=== PATIENT | female | born 1985 | race American Indian/Alaskan Native ===

== ENCOUNTER 2022-11-18 07:25 | Emergency (ER) | payer BC, OTHER, SELFPAY ==
[2022-11-18 07:33] VITALS: BP 119/62; PULSE 83; RESP 26; TEMP 36.5; O2SAT 93; BMI 35.4
[2022-11-18 07:35] VITALS: O2SAT 95
--- NOTE | 2022-11-18 07:40 | XR_ITS ---
The [address] [address] Patient Name: MORRO GUADARRAMA MRN: [id number] date: 1985 Sex: F Assigned Patient Location: ER Current Patient Location: ED.MAIN Accession/Order Number: [id number] Exam Date: 11/18/2022 08:10 Report Date: 11/18/2022 08:46 At the request of: PHYLLIS PATTON Procedure: XR chest 1V EXAMINATION: XR chest 1V, 11/18/2022 8:10 AM EDT HISTORY: SOB COMPARISON: None. TECHNIQUE: AP portable view of the chest performed. FINDINGS: Medical devices: None. Cardiomediastinal silhouette is within normal limits. The lungs are clear. No large pleural effusion, or pneumothorax. XR/XR chest 1V IMPRESSION: 1. No acute cardiopulmonary abnormality. Electronically authenticated by: AURA GRIFFIN Date: 11/18/2022 08:46
--- NOTE | 2022-11-18 07:42 | ED_ITS ---
HPI - SOB/Dyspnea General Chief Complaint: Shortness of Breath/Dyspnea Stated Complaint: SHORTNESS OF BREATH Time Seen by Provider: 11/18/22 07:36 Mode of arrival: walk-in History of Present Illness HPI Narrative: 37-year-old female who is a history of asthma presents for difficulty breathing. Her symptoms began yesterday mildly and was a bit worse today. She has not had a fever or productive cough and took a home Covid test that was negative. She took two albuterol treatments at home and came here. She states that this is a typical attack for her and usually she doesn't need to be admitted to the hospital. Symptoms are continuous. Related Data Home Medications Medication Instructions Recorded Confirmed albuterol sulfate 2.5 mg/3 mL mg 11/18/22 (0.083 %) solution for nebulization eszopiclone 3 mg tablet mg 11/18/22 fluticasone 250 mcg-salmeterol 50 inhalation 11/18/22 mcg/dose blistr powdr for inhalation (Advair Diskus) ipratropium bromide 0.02 % 11/18/22 solution for inhalation lamotrigine 150 mg tablet mg 11/18/22 lurasidone 40 mg tablet (Latuda) mg 11/18/22 sertraline 100 mg tablet mg 11/18/22 Previous Rx's Medication Instructions Recorded azithromycin 250 mg tablet See Rx Instructions PO .COMPLEX #6 11/18/22 (Zithromax Z-Lawrence) tabs benzonatate 100 mg capsule 100 mg PO TID PRN cough #20 caps 11/18/22 prednisone 10 mg tablet See Rx Instructions .Route 11/18/22 .COMPLEX #30 tabs Allergies Allergy/AdvReac Type Severity Reaction Status Date / Time No Known Drug Allergies Allergy Verified 11/18/22 07:40 Review of Systems ROS Narrative A ten point review of systems is negative except as noted above. Exam Narrative Exam Narrative: Nurses note and vital signs reviewed and patient is not hypoxic. General: The patient appears neck with pursed lipped breathing. she is able to speak in short sentences Skin: Warm, dry, no pallor noted. There is no rash noted. no cyanosis. Head: Normocephalic, atraumatic Eye: Normal conjunctiva, no drainage Ears, Nose, Mouth, and Throat: oral mucosa is moist. Nares patent. Cardiovascular: Regular Rate and Rhythm, not tachycardic Respiratory: bilateral rhonchi present Back: non-tender GI: often nontender Musculoskeletal: The patient has no evidence of calf tenderness, no pitting edema, symmetrical pulses noted bilaterally Neurological: A&O, normal speech Psychiatric: Cooperative Constitutional Vital Signs, click to edit/add: Last Vital Signs Temp 97.7 F 11/18/22 07:33 Pulse 92 H 11/18/22 07:53 Resp 18 11/18/22 09:25 BP 119/62 11/18/22 07:33 Pulse Ox 93 L 11/18/22 08:24 O2 Del Method Room Air 11/18/22 08:24 O2 Flow Rate 2 11/18/22 07:53 Course Vital Signs Vital signs: Vital Signs Temperature 97.7 F 11/18/22 07:33 Pulse Rate 83 11/18/22 07:33 Respiratory Rate 26 H 11/18/22 07:33 Blood Pressure 119/62 11/18/22 07:33 Pulse Oximetry 93 L 11/18/22 07:33 Oxygen Delivery Method Room Air 11/18/22 07:33 Temperature 97.7 F 11/18/22 07:33 Pulse Rate 92 H 11/18/22 07:53 Respiratory Rate 18 11/18/22 09:25 Blood Pressure 119/62 11/18/22 07:33 Pulse Oximetry 93 L 11/18/22 08:24 Oxygen Delivery Method Room Air 11/18/22 08:24 Oxygen Delivery Flow Rate 2 11/18/22 07:53 MDM - SOB/Dyspnea MDM Narrative Medical decision making narrative: the patient was given aerosol treatment and IV Solu-Medrol and feels much improved and is able to be discharged home. Covid test is negative as is her chest x-ray. Treatment diagnosis and follow-up were discussed with the patient. Differential Diagnosis Differential diagnosis: Likely community acquired pneumonia, asthma with exacerbation and other (Covid) Lab Data Attestation: I reviewed the patient's lab results. Labs: Lab Results 11/18/22 11/18/22 Range/Units 07:54 08:40 WBC 7.5 (4.0-11.0) 10^3/uL RBC 4.74 (4.20-5.40) 10^6/uL Hgb 12.6 (12.0-16.0) g/dL Hct 40.0 (36.0-48.0) % MCV 84.4 (81.0-99.0) fL MCH 26.6 L (26.7-34.0) pg MCHC 31.5 (29.9-35.2) g/dL RDW 16.2 H (11.0-15.0) % Plt Count 276 (150-450) 10^3/uL MPV 9.5 (9.5-13.5) fL Neut % (Auto) 70.7 (43.0-75.0) % Lymph % (Auto) 17.0 L (20.5-60.0) % [place] % (Auto) 4.7 (1.7-12.0) % Eos % (Auto) 6.3 (0.9-7.0) % Baso % (Auto) 1.2 (0.2-2.0) % Neut # (Auto) 5.3 (1.4-6.5) 10^3/uL Lymph # (Auto) 1.3 (1.2-3.8) 10^3/uL [place] # (Auto) 0.4 (0.3-0.8) 10^3/uL Eos # (Auto) 0.5 (0.0-0.7) 10^3/uL Baso # (Auto) 0.1 (0.0-0.1) 10^3/uL Abs Immat Gran (auto) 0.01 (0.00-0.03) 10^3/uL Imm/Tot Granulo (auto) 0.1 (0.0-0.5) % Sodium 137 (136-145) mmol/L Potassium 4.2 (3.5-5.1) mmol/L Chloride 101 (98-107) mmol/L Carbon Dioxide 26.7 (21.0-32.0) mmol/L Anion Gap 13.5 BUN 10.0 (7.0-18.0) mg/dL Creatinine 1.07 H (0.55-1.02) mg/dL Est GFR ( Amer) >60 (>=60) Est GFR (Non-Af Amer) 57 L (>=60) BUN/Creatinine Ratio 9.3 Glucose 120 H (74-106) mg/dL Calcium 9.2 (8.5-10.1) mg/dL SARS-CoV-2 (PCR) Negative (NEGATIVE) Imaging Data Chest x-ray: Radiologist's impression: Procedure: XR chest 1V EXAMINATION: XR chest 1V, 11/18/2022 8:10 AM EDT HISTORY: SOB COMPARISON: None. TECHNIQUE: AP portable view of the chest performed. FINDINGS: Medical devices: None. Cardiomediastinal silhouette is within normal limits. The lungs are clear. No large pleural effusion, or pneumothorax. IMPRESSION: 1. No acute cardiopulmonary abnormality. Electronically authenticated by: AURA GRIFFIN Date: 11/18/2022 08:46 Discharge Plan Discharge Chief Complaint: Shortness of Breath/Dyspnea Clinical Impression: Asthma with acute exacerbation Patient Disposition: Home, Self-Care Time of Disposition Decision: 09:45 Condition: Good Mode of Transportation: Private Vehicle Prescriptions / Home Meds: New benzonatate 100 mg capsule 100 mg PO TID PRN (Reason: cough) Qty: 20 0RF prednisone 10 mg tablet See Rx Instructions .ROUTE .COMPLEX Qty: 30 0RF Rx Instructions: 4 by mouth daily for three days then 3 by mouth daily for three days then 2 by mouth daily for three days then 1 by mouth daily for three days azithromycin [Zithromax Z-Lawrence] 250 mg tablet See Rx Instructions .ROUTE .COMPLEX Qty: 6 0RF Rx Instructions: For 250 mg dose pack: take 500 mg today (day 1), then 250 mg for 4 days (days 2-5) No Action lamotrigine 150 mg tablet fluticasone propion-salmeterol [Advair Diskus] 250-50 mcg/dose blister with device INHALATION albuterol sulfate 2.5 mg /3 mL (0.083 %) solution for nebulization sertraline 100 mg tablet ipratropium bromide 0.02 % solution eszopiclone 3 mg tablet lurasidone [Latuda] 40 mg tablet Instructions: Asthma (ED) Stand Alone Forms: Portal Instructions Referrals: Physician,Non-Staff, MD [Primary Care Provider] - 1 week
[2022-11-18] MEDS: ALBUTEROL SULFATE 2.5 MG/3 ML VIAL NEB IH (07:50)
[2022-11-18 07:53] VITALS: PULSE 92; RESP 16; O2SAT 95
[2022-11-18 08:02] LABS: Basophils Absolute Auto 0.1 10^3/uL (0.0-0.1); Basophils Percent Auto 1.2 % (0.2-2.0); Eosinophils Absolute Auto 0.5 10^3/uL (0.0-0.7); Eosinophils Percent Auto 6.3 % (0.9-7.0); Hemoglobin 12.6 g/dL (12.0-16.0); Immature Granulocytes Abs Auto 0.01 10^3/uL (0.00-0.03); Immature Granulocytes Pct Auto 0.1 % (0.0-0.5); Lymphocytes Absolute Auto 1.3 10^3/uL (1.2-3.8); Mean Corpuscular HGB Conc 31.5 g/dL (29.9-35.2); Mean Corpuscular Hemoglobin 26.6 pg (26.7-34.0); Mean Corpuscular Volume 84.4 fL (81.0-99.0); Mean Platelet Volume 9.5 fL (9.5-13.5); Monocytes Absolute Auto 0.4 10^3/uL (0.3-0.8); Monocytes Percent Auto 4.7 % (1.7-12.0); Neutrophils Absolute Auto 5.3 10^3/uL (1.4-6.5); Neutrophils Percent Auto 70.7 % (43.0-75.0); Platelet Count 276 10^3/uL (150-450); Red Blood Count 4.74 10^6/uL (4.20-5.40); Red Cell Distribution Width 16.2 % (11.0-15.0); White Blood Count 7.5 10^3/uL (4.0-11.0)
[2022-11-18] MEDS: METHYLPREDNISOLONE SOD SUCC PF 125 MG/2 ML VIAL IVP (08:07)
[2022-11-18 08:23] LABS: Anion Gap 13.5; BUN Creatinine Ratio 9.3; Calcium 9.2 mg/dL (8.5-10.1); Carbon Dioxide 26.7 mmol/L (21.0-32.0); Chloride 101 mmol/L (98-107); Estimated GFR (African America >60 (>=60); Estimated GFR (Non-African Ame 57 (>=60); Glucose 120 mg/dL (74-106); Potassium 4.2 mmol/L (3.5-5.1); Sodium 137 mmol/L (136-145)
[2022-11-18 08:24] VITALS: RESP 24; O2SAT 93
[2022-11-18 09:25] VITALS: RESP 18
[2022-11-18 09:44] LABS: SARS-CoV-2 Ag NEGATIVE (NEGATIVE)
[2022-11-18 09:45] VITALS: O2SAT 97
[2022-11-19 15:52] LABS: SARS-CoV-2 NAA INVALID (NOT DETECTE)
== END 2022-11-18 09:54 | disposition home or self-care (01) ==
PROVIDERS: Emergency Provider Emergency Medicine
DX: J45.901 Unspecified asthma with (acute) exacerbation (principal); Z79.899 Other long term (current) drug therapy; Z20.822 Contact with and (suspected) exposure to COVID-19
CPT/HCPCS: 36415; 71045; 80048; 85025; 87635; 87811; 94640; 96374; 99285; J2930; U0003

== ENCOUNTER 2023-01-05 20:42 | Emergency (ER) | payer BC, OTHER, SELFPAY ==
[2023-01-05] VITALS (20 sets, daily range): BP systolic 108–147; BP diastolic 80–102; PULSE 105–120; RESP 16–31; TEMP 36.6; O2SAT 91–97; BMI 39.0
--- NOTE | 2023-01-05 20:53 | XR_ITS ---
The [address] [address] Patient Name: MORRO GUADARRAMA MRN: [id number] date: 1985 Sex: F Assigned Patient Location: ED.MAIN Current Patient Location: ER Accession/Order Number: [id number] Exam Date: 01/05/2023 21:16 Report Date: 01/05/2023 21:28 At the request of: LIVIER YOUSSEF Procedure: XR chest 1V EXAM: XR chest 1V REASON FOR EXAM: Female, 37 years, shortness of breath. TECHNIQUE: A single AP view of the chest is performed. COMPARISON: 11/18/2022. FINDINGS: Cardiac monitoring leads overlie the chest. The lungs are expanded and clear. Normal pleura. Normal size heart. Normal mediastinum and meche. Normal visualized pulmonary arteries. Normal visualized aortic arch and descending thoracic aorta. Normal visualized thoracic spine. Normal visualized ribs, clavicles, and shoulders. There is no demonstrated abnormality of the visualized soft tissue structures of the upper abdomen. XR/XR chest 1V IMPRESSION: Normal examination of the chest. Electronically authenticated by: JENIFFER QUINTERO Date: 01/05/2023 21:28
--- NOTE | 2023-01-05 20:53 | ECG_ITS ---
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
--- NOTE | 2023-01-05 20:54 | ED_ITS ---
Documented by User: ABDIRASHID Aguilar 01/05/23 21:17 HPI - SOB/Dyspnea General Chief Complaint: Shortness of Breath/Dyspnea Stated Complaint: SOB Time Seen by Provider: 01/05/23 20:45 Source: patient Mode of arrival: walk-in Limitations: no limitations History of Present Illness HPI Narrative: patient is a 29-year-old female to history of asthma who presents to the emergency department for the evaluation of worsening dyspnea this evening. She states for the last 2-3 days she has had cough and congestion. She states today she got significantly more short of breath. She has had no objective fevers, minimal sputum production. No vomiting or diarrhea. She is not concerned for . She used her nebulizer treatments prior to arrival without improvement. She has had one DuoNeb and two albuterol treatments without improvement. She is hypoxic on arrival to the Emergency Room. Oxygen placed by nasal cannula by nursing staff. Related Data Home Medications Medication Instructions Recorded Confirmed albuterol sulfate 2.5 mg/3 mL mg 11/18/22 (0.083 %) solution for nebulization eszopiclone 3 mg tablet mg 11/18/22 fluticasone 250 mcg-salmeterol 50 inhalation 11/18/22 mcg/dose blistr powdr for inhalation (Advair Diskus) ipratropium bromide 0.02 % 11/18/22 solution for inhalation lamotrigine 150 mg tablet mg 11/18/22 lurasidone 40 mg tablet (Latuda) mg 11/18/22 sertraline 100 mg tablet mg 11/18/22 Previous Rx's Medication Instructions Recorded azithromycin 250 mg tablet See Rx Instructions PO .COMPLEX #6 11/18/22 (Zithromax Z-Lawrence) tabs benzonatate 100 mg capsule 100 mg PO TID PRN cough #20 caps 11/18/22 prednisone 10 mg tablet See Rx Instructions .Route 11/18/22 .COMPLEX #30 tabs doxycycline hyclate 100 mg capsule 100 mg PO BID 10 days #20 caps 01/05/23 lorazepam 1 mg tablet (Ativan) 1 mg PO Q8H PRN anxiety 4 days #12 01/05/23 tabs prednisone 10 mg tablet See Rx Instructions .Route 01/05/23 .COMPLEX #30 tabs Allergies Allergy/AdvReac Type Severity Reaction Status Date / Time No Known Drug Allergies Allergy Verified 01/05/23 20:50 Review of Systems ROS Constitutional Denies: fever or chills Ears, nose, mouth, and throat Reports: nasal congestion; Denies: throat pain Cardiovascular Denies: chest pain Respiratory Reports: shortness of breath, cough and wheezing Gastrointestinal Denies: nausea or vomiting Musculoskeletal Denies: back pain Integumentary/Breast Denies: rash Exam Narrative Exam Narrative: Gen.: Awake, alert, mild respiratory distress Head: Normocephalic, atraumatic ENT: Moist mucous membranes Respiratory: tachypnea, decreased lung sounds with expiratory wheezing globally; oxygen by nasal cannula Cardio: tachycardia Extremities: Moves extremities equally, no pedal edema Psych: Normal mood and affect Neuro: No focal neuro deficit Skin: Warm, dry, intact Constitutional Vital Signs, click to edit/add: Last Vital Signs Temp 98 F 01/05/23 20:46 Pulse 113 H 01/05/23 22:20 Resp 17 01/05/23 22:20 BP 147/102 H 01/05/23 20:46 Pulse Ox 97 01/05/23 22:20 O2 Del Method Nasal Cannula 01/05/23 21:57 O2 Flow Rate 2 01/05/23 21:57 Course Vital Signs Vital signs: Vital Signs Temperature 98 F 01/05/23 20:46 Pulse Rate 120 H 01/05/23 20:46 Respiratory Rate 26 H 01/05/23 20:46 Blood Pressure 147/102 H 01/05/23 20:46 Pulse Oximetry 96 01/05/23 20:46 Oxygen Delivery Method Nasal Cannula 01/05/23 20:46 Oxygen Delivery Flow Rate 2 01/05/23 20:46 Temperature 98 F 01/05/23 20:46 Pulse Rate 113 H 01/05/23 22:20 Respiratory Rate 17 01/05/23 22:20 Blood Pressure 147/102 H 01/05/23 20:46 Pulse Oximetry 97 01/05/23 22:20 Oxygen Delivery Method Nasal Cannula 01/05/23 21:57 Oxygen Delivery Flow Rate 2 01/05/23 21:57 MDM - SOB/Dyspnea MDM Narrative Medical decision making narrative: 2114: oxygen was placed by nasal cannula at 2 L with improvement of oxygen saturation. patient was ordered to have IV fluids, inhaled Pulmicort as she had multiple breathing treatments prior to arrival. IV Solu-Medrol and IV magnesium given. Lab studies, chest x-ray also ordered. Case is turned over to attending physician at this time pending results and disposition. Medical Records Attestation: I reviewed the patient's medical records. Lab Data Attestation: I reviewed the patient's lab results. Labs: Lab Results 01/05/23 Range/Units 21:05 WBC 15.1 H (4.0-11.0) 10^3/uL RBC 4.46 (4.20-5.40) 10^6/uL Hgb 12.0 (12.0-16.0) g/dL Hct 38.0 (36.0-48.0) % MCV 85.2 (81.0-99.0) fL MCH 26.9 (26.7-34.0) pg MCHC 31.6 (29.9-35.2) g/dL RDW 16.4 H (11.0-15.0) % Plt Count 263 (150-450) 10^3/uL MPV 9.5 (9.5-13.5) fL Neut % (Auto) 93.4 H (43.0-75.0) % Lymph % (Auto) 2.9 L (20.5-60.0) % [place] % (Auto) 2.6 (1.7-12.0) % Eos % (Auto) 0.1 L (0.9-7.0) % Baso % (Auto) 0.5 (0.2-2.0) % Neut # (Auto) 14.1 H (1.4-6.5) 10^3/uL Lymph # (Auto) 0.4 L (1.2-3.8) 10^3/uL [place] # (Auto) 0.4 (0.3-0.8) 10^3/uL Eos # (Auto) 0.0 (0.0-0.7) 10^3/uL Baso # (Auto) 0.1 (0.0-0.1) 10^3/uL Abs Immat Gran (auto) 0.07 H (0.00-0.03) 10^3/uL Imm/Tot Granulo (auto) 0.5 (0.0-0.5) % APTT 31.6 (22.3-36.2) sec VBG pH 7.429 (7.330-7.430) VBG pCO2 26.9 L (40.0-52.0) mmHg Sodium 139 (136-145) mmol/L Potassium 4.2 (3.5-5.1) mmol/L Chloride 103 (98-107) mmol/L Carbon Dioxide 22.0 (21.0-32.0) mmol/L Anion Gap 18.2 BUN 10.0 (7.0-18.0) mg/dL Creatinine 1.35 H (0.55-1.02) mg/dL Est GFR ( Amer) 53 L (>=60) Est GFR (Non-Af Amer) 44 L (>=60) BUN/Creatinine Ratio 7.4 Glucose 272 H (74-106) mg/dL Calcium 8.9 (8.5-10.1) mg/dL Total Bilirubin 0.2 (0.2-1.0) mg/dL AST 9 L (15-37) U/L ALT 9 L (14-59) U/L Alkaline Phosphatase 107 (46-116) U/L Troponin I High Sens 6.1 (4.0-51.3) pg/mL NT-Pro-B Natriuret Pep 509.0 H (<=450.0) pg/mL Total Protein 7.9 (6.4-8.2) g/dL Albumin 3.8 (3.4-5.0) g/dL Globulin 4.1 g/dL Albumin/Globulin Ratio 0.9 Discharge Plan Discharge Chief Complaint: Shortness of Breath/Dyspnea Clinical Impression: Asthma exacerbation, Dyspnea, Hypoxia Patient Disposition: Home, Self-Care Time of Disposition Decision: 22:57 Condition: Good Mode of Transportation: Private Vehicle Prescriptions / Home Meds: New prednisone 10 mg tablet See Rx Instructions .ROUTE .COMPLEX Qty: 30 0RF Rx Instructions: 4 by mouth daily for three days then 3 by mouth daily for three days then 2 by mouth daily for three days then 1 by mouth daily for three days doxycycline hyclate 100 mg capsule 100 mg PO BID 10 Days Qty: 20 0RF lorazepam [Ativan] 1 mg tablet 1 mg PO Q8H PRN (Reason: anxiety) 4 Days Qty: 12 0RF No Action lamotrigine 150 mg tablet fluticasone propion-salmeterol [Advair Diskus] 250-50 mcg/dose blister with device INHALATION albuterol sulfate 2.5 mg /3 mL (0.083 %) solution for nebulization sertraline 100 mg tablet ipratropium bromide 0.02 % solution eszopiclone 3 mg tablet lurasidone [Latuda] 40 mg tablet benzonatate 100 mg capsule 100 mg PO TID PRN (Reason: cough) Qty: 20 0RF prednisone 10 mg tablet See Rx Instructions .ROUTE .COMPLEX Qty: 30 0RF Rx Instructions: 4 by mouth daily for three days then 3 by mouth daily for three days then 2 by mouth daily for three days then 1 by mouth daily for three days azithromycin [Zithromax Z-Lawrence] 250 mg tablet See Rx Instructions .ROUTE .COMPLEX Qty: 6 0RF Rx Instructions: For 250 mg dose pack: take 500 mg today (day 1), then 250 mg for 4 days (days 2-5) Instructions: Asthma (ED) Stand Alone Forms: Portal Instructions Referrals: Physician,Non-Staff, MD [Primary Care Provider] - 1 week Documented by User: Hola Rogers MD 01/05/23 23:03 HPI - SOB/Dyspnea General Chief Complaint: Shortness of Breath/Dyspnea Stated Complaint: SOB Time Seen by Provider: 01/05/23 20:45 Related Data Home Medications Medication Instructions Recorded Confirmed albuterol sulfate 2.5 mg/3 mL mg 11/18/22 (0.083 %) solution for nebulization eszopiclone 3 mg tablet mg 11/18/22 fluticasone 250 mcg-salmeterol 50 inhalation 11/18/22 mcg/dose blistr powdr for inhalation (Advair Diskus) ipratropium bromide 0.02 % 11/18/22 solution for inhalation lamotrigine 150 mg tablet mg 11/18/22 lurasidone 40 mg tablet (Latuda) mg 11/18/22 sertraline 100 mg tablet mg 11/18/22 Previous Rx's Medication Instructions Recorded azithromycin 250 mg tablet See Rx Instructions PO .COMPLEX #6 11/18/22 (Zithromax Z-Lawrence) tabs benzonatate 100 mg capsule 100 mg PO TID PRN cough #20 caps 11/18/22 prednisone 10 mg tablet See Rx Instructions .Route 11/18/22 .COMPLEX #30 tabs doxycycline hyclate 100 mg capsule 100 mg PO BID 10 days #20 caps 01/05/23 lorazepam 1 mg tablet (Ativan) 1 mg PO Q8H PRN anxiety 4 days #12 01/05/23 tabs prednisone 10 mg tablet See Rx Instructions .Route 01/05/23 .COMPLEX #30 tabs Allergies Allergy/AdvReac Type Severity Reaction Status Date / Time No Known Drug Allergies Allergy Verified 01/05/23 20:50 Exam Constitutional Vital Signs, click to edit/add: Last Vital Signs Temp 98 F 01/05/23 20:46 Pulse 113 H 01/05/23 22:20 Resp 17 01/05/23 22:20 BP 147/102 H 01/05/23 20:46 Pulse Ox 97 01/05/23 22:20 O2 Del Method Nasal Cannula 01/05/23 21:57 O2 Flow Rate 2 01/05/23 21:57 Course Vital Signs Vital signs: Vital Signs Temperature 98 F 01/05/23 20:46 Pulse Rate 120 H 01/05/23 20:46 Respiratory Rate 26 H 01/05/23 20:46 Blood Pressure 147/102 H 01/05/23 20:46 Pulse Oximetry 96 01/05/23 20:46 Oxygen Delivery Method Nasal Cannula 01/05/23 20:46 Oxygen Delivery Flow Rate 2 01/05/23 20:46 Temperature 98 F 01/05/23 20:46 Pulse Rate 113 H 01/05/23 22:20 Respiratory Rate 17 01/05/23 22:20 Blood Pressure 147/102 H 01/05/23 20:46 Pulse Oximetry 97 01/05/23 22:20 Oxygen Delivery Method Nasal Cannula 01/05/23 21:57 Oxygen Delivery Flow Rate 2 01/05/23 21:57 MDM - SOB/Dyspnea MDM Narrative Medical decision making narrative: 2114: oxygen was placed by nasal cannula at 2 L with improvement of oxygen saturation. patient was ordered to have IV fluids, inhaled Pulmicort as she had multiple breathing treatments prior to arrival. IV Solu-Medrol and IV magnesium given. Lab studies, chest x-ray also ordered. Case is turned over to attending physician at this time pending results and disposition. 11:00 PM. The patient is feeling much improved. She was offered admission the hospital but she doesn't feel she needs to be admitted and states that she can treat herself at home. She was given IV Solu-Medrol here as well as aerosol treatments. Her workup is negative including the chest x-ray. She was started on doxycycline here and prescribed doxycycline and prednisone and Ativan. Treatment diagnosis and follow-up were discussed with the patient Differential Diagnosis Differential diagnosis: Likely community acquired pneumonia and asthma with exacerbation Lab Data Attestation: I reviewed the patient's lab results. Labs: Lab Results 01/05/23 Range/Units 21:05 WBC 15.1 H (4.0-11.0) 10^3/uL RBC 4.46 (4.20-5.40) 10^6/uL Hgb 12.0 (12.0-16.0) g/dL Hct 38.0 (36.0-48.0) % MCV 85.2 (81.0-99.0) fL MCH 26.9 (26.7-34.0) pg MCHC 31.6 (29.9-35.2) g/dL RDW 16.4 H (11.0-15.0) % Plt Count 263 (150-450) 10^3/uL MPV 9.5 (9.5-13.5) fL Neut % (Auto) 93.4 H (43.0-75.0) % Lymph % (Auto) 2.9 L (20.5-60.0) % [place] % (Auto) 2.6 (1.7-12.0) % Eos % (Auto) 0.1 L (0.9-7.0) % Baso % (Auto) 0.5 (0.2-2.0) % Neut # (Auto) 14.1 H (1.4-6.5) 10^3/uL Lymph # (Auto) 0.4 L (1.2-3.8) 10^3/uL [place] # (Auto) 0.4 (0.3-0.8) 10^3/uL Eos # (Auto) 0.0 (0.0-0.7) 10^3/uL Baso # (Auto) 0.1 (0.0-0.1) 10^3/uL Abs Immat Gran (auto) 0.07 H (0.00-0.03) 10^3/uL Imm/Tot Granulo (auto) 0.5 (0.0-0.5) % APTT 31.6 (22.3-36.2) sec VBG pH 7.429 (7.330-7.430) VBG pCO2 26.9 L (40.0-52.0) mmHg Sodium 139 (136-145) mmol/L Potassium 4.2 (3.5-5.1) mmol/L Chloride 103 (98-107) mmol/L Carbon Dioxide 22.0 (21.0-32.0) mmol/L Anion Gap 18.2 BUN 10.0 (7.0-18.0) mg/dL Creatinine 1.35 H (0.55-1.02) mg/dL Est GFR ( Amer) 53 L (>=60) Est GFR (Non-Af Amer) 44 L (>=60) BUN/Creatinine Ratio 7.4 Glucose 272 H (74-106) mg/dL Calcium 8.9 (8.5-10.1) mg/dL Total Bilirubin 0.2 (0.2-1.0) mg/dL AST 9 L (15-37) U/L ALT 9 L (14-59) U/L Alkaline Phosphatase 107 (46-116) U/L Troponin I High Sens 6.1 (4.0-51.3) pg/mL NT-Pro-B Natriuret Pep 509.0 H (<=450.0) pg/mL Total Protein 7.9 (6.4-8.2) g/dL Albumin 3.8 (3.4-5.0) g/dL Globulin 4.1 g/dL Albumin/Globulin Ratio 0.9 Imaging Data Chest x-ray: Radiologist's impression: Procedure: XR chest 1V EXAM: XR chest 1V REASON FOR EXAM: Female, 37 years, shortness of breath. TECHNIQUE: A single AP view of the chest is performed. COMPARISON: 11/18/2022. FINDINGS: Cardiac monitoring leads overlie the chest. The lungs are expanded and clear. Normal pleura. Normal size heart. Normal mediastinum and meche. Normal visualized pulmonary arteries. Normal visualized aortic arch and descending thoracic aorta. Normal visualized thoracic spine. Normal visualized ribs, clavicles, and shoulders. There is no demonstrated abnormality of the visualized soft tissue structures of the upper abdomen. IMPRESSION: Normal examination of the chest. Electronically authenticated by: JENIFFER QUINTERO Date: 01/05/2023 21:28 Critical Care Time Critical Care Time Critical Care Time: Yes Total Critical Care Time: 35 Attestation: Due to the high probability of sudden and clinically significant deterioration in the patient's condition he/she required the highest level of my preparedness to intervene urgently I provided critical care time including documentation time, medication orders and management, reevaluation, vital sign assessment, ordering and reviewing of lab tests, ordering and reviewing of x-ray studies, and admission orders. Aggregate critical care time is 35 minutes including only time during which I was engaged in work directly related to his/her care and did not include time spent treating other patients simultaneously. Discharge Plan Discharge Chief Complaint: Shortness of Breath/Dyspnea Clinical Impression: Asthma exacerbation, Dyspnea, Hypoxia Patient Disposition: Home, Self-Care Time of Disposition Decision: 22:57 Condition: Good Mode of Transportation: Private Vehicle Prescriptions / Home Meds: New prednisone 10 mg tablet See Rx Instructions .ROUTE .COMPLEX Qty: 30 0RF Rx Instructions: 4 by mouth daily for three days then 3 by mouth daily for three days then 2 by mouth daily for three days then 1 by mouth daily for three days doxycycline hyclate 100 mg capsule 100 mg PO BID 10 Days Qty: 20 0RF lorazepam [Ativan] 1 mg tablet 1 mg PO Q8H PRN (Reason: anxiety) 4 Days Qty: 12 0RF No Action lamotrigine 150 mg tablet fluticasone propion-salmeterol [Advair Diskus] 250-50 mcg/dose blister with device INHALATION albuterol sulfate 2.5 mg /3 mL (0.083 %) solution for nebulization sertraline 100 mg tablet ipratropium bromide 0.02 % solution eszopiclone 3 mg tablet lurasidone [Latuda] 40 mg tablet benzonatate 100 mg capsule 100 mg PO TID PRN (Reason: cough) Qty: 20 0RF prednisone 10 mg tablet See Rx Instructions .ROUTE .COMPLEX Qty: 30 0RF Rx Instructions: 4 by mouth daily for three days then 3 by mouth daily for three days then 2 by mouth daily for three days then 1 by mouth daily for three days azithromycin [Zithromax Z-Lawrence] 250 mg tablet See Rx Instructions .ROUTE .COMPLEX Qty: 6 0RF Rx Instructions: For 250 mg dose pack: take 500 mg today (day 1), then 250 mg for 4 days (days 2-5) Instructions: Asthma (ED) Stand Alone Forms: Portal Instructions Referrals: Physician,Non-Staff, MD [Primary Care Provider] - 1 week
[2023-01-05] MEDS: BUDESONIDE 0.5 MG/2 ML AMPULE NEB IH (21:03)
[2023-01-05 21:14] LABS: Basophils Absolute Auto 0.1 10^3/uL (0.0-0.1); Basophils Percent Auto 0.5 % (0.2-2.0); Eosinophils Percent Auto 0.1 % (0.9-7.0); Immature Granulocytes Abs Auto 0.07 10^3/uL (0.00-0.03); Immature Granulocytes Pct Auto 0.5 % (0.0-0.5); Lymphocytes Absolute Auto 0.4 10^3/uL (1.2-3.8); Lymphocytes Percent Auto 2.9 % (20.5-60.0); Mean Corpuscular HGB Conc 31.6 g/dL (29.9-35.2); Mean Corpuscular Hemoglobin 26.9 pg (26.7-34.0); Mean Corpuscular Volume 85.2 fL (81.0-99.0); Mean Platelet Volume 9.5 fL (9.5-13.5); Monocytes Absolute Auto 0.4 10^3/uL (0.3-0.8); Monocytes Percent Auto 2.6 % (1.7-12.0); Neutrophils Absolute Auto 14.1 10^3/uL (1.4-6.5); Neutrophils Percent Auto 93.4 % (43.0-75.0); Platelet Count 263 10^3/uL (150-450); Red Blood Count 4.46 10^6/uL (4.20-5.40); Red Cell Distribution Width 16.4 % (11.0-15.0); White Blood Count 15.1 10^3/uL (4.0-11.0)
[2023-01-05 21:16] LABS: PCO2 VBG 26.9 mmHg (40.0-52.0); pH VBG 7.429 (7.330-7.430)
[2023-01-05] MEDS: MAGNESIUM SULFATE IN WATER 2 GM/50 ML PREMIX IV (21:19)
[2023-01-05] MEDS: METHYLPREDNISOLONE SOD SUCC PF 125 MG/2 ML VIAL IVP (21:24)
[2023-01-05] MEDS: 0.9 % SODIUM CHLORIDE 1,000 ML 1000 ML IV (21:25)
[2023-01-05 21:29] LABS: Partial Thromboplastin Time 31.6 sec (22.3-36.2)
[2023-01-05 21:37] LABS: Alanine Aminotransferase 9 U/L (14-59); Albumin Globulin Ratio 0.9; Albumin Level 3.8 g/dL (3.4-5.0); Alkaline Phosphatase 107 U/L (46-116); Anion Gap 18.2; Aspartate Amino Transferase 9 U/L (15-37); BUN Creatinine Ratio 7.4; Bilirubin Total 0.2 mg/dL (0.2-1.0); Calcium 8.9 mg/dL (8.5-10.1); Chloride 103 mmol/L (98-107); Estimated GFR (African America 53 (>=60); Estimated GFR (Non-African Ame 44 (>=60); Globulin 4.1 g/dL; Glucose 272 mg/dL (74-106); Potassium 4.2 mmol/L (3.5-5.1); Sodium 139 mmol/L (136-145); Total Protein 7.9 g/dL (6.4-8.2); Troponin I High Sensitivity 6.1 pg/mL (4.0-51.3)
[2023-01-05] MEDS: ALBUTEROL SULFATE 2.5 MG/3 ML VIAL NEB IH (21:56)
[2023-01-05] MEDS: LORAZEPAM 2 MG/ML 1 ML VIAL 0.5 MG IV (22:26)
[2023-01-05] MEDS: DOXYCYCLINE MONOHYDRATE 100 MG CAPSULE PO (23:12)
== END 2023-01-05 23:25 | disposition home or self-care (01) ==
PROVIDERS: Physician Assistant; Emergency Provider Emergency Medicine
DX: J45.901 Unspecified asthma with (acute) exacerbation (principal); R09.02 Hypoxemia; R06.00 Dyspnea, unspecified
CPT/HCPCS: 36415; 71045; 80053; 82800; 83880; 84484; 85025; 85730; 93005; 94640; 96374; 96375; 99285; J2930

== ENCOUNTER 2023-05-25 16:07 | Emergency (ER) | payer BC, OTHER, SELFPAY ==
[2023-05-25 16:11] VITALS: BP 141/90; PULSE 103; TEMP 37.1; O2SAT 98; BMI 40.6
--- NOTE | 2023-05-25 16:20 | XR_ITS ---
The [address] [address] Patient Name: MORRO GUADARRAMA MRN: [id number] date: 1985 Sex: F Assigned Patient Location: ER Current Patient Location: ER Accession/Order Number: [id number] Exam Date: 05/25/2023 16:57 Report Date: 05/25/2023 17:20 At the request of: PHYLLIS PATTON Procedure: XR chest 1V EXAM: XR chest 1V HISTORY: SOB COMPARISON: 01/05/2023 TECHNIQUE: Single view of the chest FINDINGS: Heart size normal. No focal consolidation, pleural effusion, pulmonary congestion or pneumothorax. XR/XR chest 1V IMPRESSION: No acute findings. Electronically authenticated by: ABHIJEET SCHULER Date: 05/25/2023 17:20
--- NOTE | 2023-05-25 16:22 | PC.NURSE ---
pt presents with a exaggerated breathing, wheezing reduces when distracted
--- NOTE | 2023-05-25 16:23 | ED.SOB1 ---
HPI - SOB/Dyspnea General Chief Complaint: Shortness of Breath/Dyspnea Stated Complaint: Shortness of Breath Time Seen by Provider: 05/25/23 16:09 Source: patient Mode of arrival: walk-in History of Present Illness HPI Narrative: 37-year-old female presents for difficulty breathing. She has a history of asthma and developed some trouble breathing last night. She has been coughing up some green phlegm and she used her nebulizer at home today. She has not had a fever or hemoptysis. Related Data Home Medications ?Medication ?Instructions ?Recorded ?Confirmed albuterol sulfate 2.5 mg/3 mL mg 11/18/22 (0.083 %) solution for nebulization eszopiclone 3 mg tablet mg 11/18/22 fluticasone 250 mcg-salmeterol 50 inhalation 11/18/22 mcg/dose blistr powdr for inhalation (Advair Diskus) ipratropium bromide 0.02 % 11/18/22 solution for inhalation lamotrigine 150 mg tablet mg 11/18/22 lurasidone 40 mg tablet (Latuda) mg 11/18/22 sertraline 100 mg tablet mg 11/18/22 Previous Rx's ?Medication ?Instructions ?Recorded azithromycin 250 mg tablet See Rx Instructions PO .COMPLEX #6 11/18/22 (Zithromax Z-Lawrence) tabs benzonatate 100 mg capsule 100 mg PO TID PRN cough #20 caps 11/18/22 prednisone 10 mg tablet See Rx Instructions .Route 11/18/22 .COMPLEX #30 tabs doxycycline hyclate 100 mg capsule 100 mg PO BID 10 days #20 caps 01/05/23 lorazepam 1 mg tablet (Ativan) 1 mg PO Q8H PRN anxiety 4 days #12 01/05/23 tabs prednisone 10 mg tablet See Rx Instructions .Route 01/05/23 .COMPLEX #30 tabs nirmatrelvir 300 mg (150 mg See Rx Instructions PO .COMPLEX 05/25/23 x2)-ritonavir 100 mg tablet,dose #30 ea pack (Paxlovid) prednisone 10 mg tablet See Rx Instructions .Route 05/25/23 .COMPLEX #30 tabs Allergies Allergy/AdvReac Type Severity Reaction Status Date / Time No Known Drug Allergies Allergy Verified 01/05/23 20:50 Review of Systems ROS Narrative A ten point review of systems is negative except as noted above. Exam Narrative Exam Narrative: Nurses note and vital signs reviewed and patient is not hypoxic. General: The patient appears mildly dyspneic. Skin: Warm, dry, no pallor noted. There is no rash noted. Head: Normocephalic, atraumatic Eye: Normal conjunctiva, no drainage Ears, Nose, Mouth, and Throat: oral mucosa is moist. Nares patent. Cardiovascular: Regular Rate and Rhythm Respiratory: Bilateral rhonchi present. Breath sounds are equal bilaterally. Back: non-tender GI: Soft and nontender Musculoskeletal: The patient has no evidence of calf tenderness, no pitting edema, symmetrical pulses noted bilaterally Neurological: A&O, normal speech Psychiatric: Cooperative Constitutional Vital Signs, click to edit/add: Last Vital Signs Temp 98.7 F 05/25/23 16:11 Pulse 103 H 05/25/23 16:11 Resp 20 05/25/23 16:11 BP 141/90 05/25/23 16:11 Pulse Ox 98 05/25/23 16:37 O2 Del Method Room Air 05/25/23 16:37 Course Vital Signs Vital signs: Vital Signs Temperature 98.7 F 05/25/23 16:11 Pulse Rate 103 H 05/25/23 16:11 Respiratory Rate 20 05/25/23 16:11 Blood Pressure 141/90 05/25/23 16:11 Pulse Oximetry 98 05/25/23 16:11 Oxygen Delivery Method Room Air 05/25/23 16:11 Temperature 98.7 F 05/25/23 16:11 Pulse Rate 103 H 05/25/23 16:11 Respiratory Rate 20 05/25/23 16:11 Blood Pressure 141/90 05/25/23 16:11 Pulse Oximetry 98 05/25/23 16:37 Oxygen Delivery Method Room Air 05/25/23 16:37 MDM - SOB/Dyspnea MDM Narrative Medical decision making narrative: Chest x-ray and blood work are essentially negative. She tested positive for COVID and is prescribed Paxlovid and prednisone. Treatment diagnosis and follow-up were discussed with the patient. Differential Diagnosis Differential diagnosis: Likely community acquired pneumonia and other (COVID, influenza, asthma exacerbation) Lab Data Attestation: I reviewed the patient's lab results. Labs: Lab Results 04/03/24 04/03/24 04/03/24 Range/Units 16:53 16:56 17:23 WBC 6.4 (4.0-11.0) 10^3/uL RBC 4.02 L (4.20-5.40) 10^6/uL Hgb 10.0 L (12.0-16.0) g/dL Hct 33.1 L (36.0-48.0) % MCV 82.3 (81.0-99.0) fL MCH 24.9 L (26.7-34.0) pg MCHC 30.2 (29.9-35.2) g/dL RDW 16.8 H (11.0-15.0) % Plt Count 283 (150-450) 10^3/uL MPV 9.2 L (9.5-13.5) fL Neut % (Auto) 73.0 (43.0-75.0) % Lymph % (Auto) 16.7 L (20.5-60.0) % [place] % (Auto) 9.1 (1.7-12.0) % Eos % (Auto) 0.9 (0.9-7.0) % Baso % (Auto) 0.0 L (0.2-2.0) % Neut # (Auto) 4.7 (1.4-6.5) 10^3/uL Lymph # (Auto) 1.1 L (1.2-3.8) 10^3/uL [place] # (Auto) 0.6 (0.3-0.8) 10^3/uL Eos # (Auto) 0.1 (0.0-0.7) 10^3/uL Baso # (Auto) 0.0 (0.0-0.1) 10^3/uL Abs Immat Gran (auto) 0.02 (0.00-0.03) 10^3/uL Imm/Tot Granulo (auto) 0.3 (0.0-0.5) % Sodium 137 (136-145) mmol/L Potassium 4.1 (3.5-5.1) mmol/L Chloride 102 (98-107) mmol/L Carbon Dioxide 22.7 (21.0-32.0) mmol/L Anion Gap 16.4 BUN 12.0 (7.0-18.0) mg/dL Creatinine 1.09 H (0.55-1.02) mg/dL Est GFR ( Amer) >60 (>=60) Est GFR (Non-Af Amer) 56 L (>=60) BUN/Creatinine Ratio 11.0 Glucose 95 (74-106) mg/dL Calcium 8.8 (8.5-10.1) mg/dL Influenza Type A Ag Negative Influenza Type B Ag Negative SARS-CoV-2 Ag (CV2AG) Positive A (NEGATIVE) Imaging Data Chest x-ray: Radiologist's impression: ITS Impressions Chest X-Ray 05/25/23 16:20 IMPRESSION: No acute findings. Electronically authenticated by: ABHIJEET SCHULER Date: 05/25/2023 17:20 Discharge Plan Discharge Stand Alone Forms: Portal Instructions Chief Complaint: Shortness of Breath/Dyspnea Clinical Impression: COVID-19 Patient Disposition: Home, Self-Care Time of Disposition Decision: 17:46 Condition: Good Mode of Transportation: Private Vehicle Prescriptions / Home Meds: New prednisone 10 mg tablet See Rx Instructions .ROUTE .COMPLEX Qty: 30 0RF Rx Instructions: 4 by mouth daily for three days then 3 by mouth daily for three days then 2 by mouth daily for three days then 1 by mouth daily for three days Paxlovid 300 mg (150 mg x 2)-100 mg tablets,dose pack See Rx Instructions .ROUTE .COMPLEX Qty: 30 0RF Rx Instructions: take TWO 150 mg tablets of nirmatrelvir with ONE 100 mg tablet of ritonavir twice daily for 5 days No Action lamotrigine 150 mg tablet fluticasone propion-salmeterol [Advair Diskus] 250-50 mcg/dose blister with device INHALATION albuterol sulfate 2.5 mg /3 mL (0.083 %) solution for nebulization sertraline 100 mg tablet ipratropium bromide 0.02 % solution eszopiclone 3 mg tablet lurasidone [Latuda] 40 mg tablet benzonatate 100 mg capsule 100 mg PO TID PRN (Reason: cough) Qty: 20 0RF prednisone 10 mg tablet See Rx Instructions .ROUTE .COMPLEX Qty: 30 0RF Rx Instructions: 4 by mouth daily for three days then 3 by mouth daily for three days then 2 by mouth daily for three days then 1 by mouth daily for three days azithromycin [Zithromax Z-Lawrence] 250 mg tablet See Rx Instructions .ROUTE .COMPLEX Qty: 6 0RF Rx Instructions: For 250 mg dose pack: take 500 mg today (day 1), then 250 mg for 4 days (days 2-5) prednisone 10 mg tablet See Rx Instructions .ROUTE .COMPLEX Qty: 30 0RF Rx Instructions: 4 by mouth daily for three days then 3 by mouth daily for three days then 2 by mouth daily for three days then 1 by mouth daily for three days doxycycline hyclate 100 mg capsule 100 mg PO BID 10 Days Qty: 20 0RF lorazepam [Ativan] 1 mg tablet 1 mg PO Q8H PRN (Reason: anxiety) 4 Days Qty: 12 0RF Print Language: Welsh Instructions: COVID-19 (Coronavirus Disease 2019) (ED), COVID-19: Slow the Coronavirus Spread (ED), Face Coverings (Masks) and COVID-19 (ED) Referrals: Physician,Non-Staff, MD [Primary Care Provider] - 1 week
[2023-05-25] MEDS: ALBUTEROL SULFATE 2.5 MG/3 ML VIAL NEB IH (16:36)
[2023-05-25 16:37] VITALS: O2SAT 98
[2023-05-25] MEDS: METHYLPREDNISOLONE SOD SUCC PF 125 MG/2 ML VIAL IVP (17:07)
[2023-05-25 17:10] LABS: Anion Gap 16.4; Calcium 8.8 mg/dL (8.5-10.1); Carbon Dioxide 22.7 mmol/L (21.0-32.0); Chloride 102 mmol/L (98-107); Estimated GFR (African America >60 (>=60); Estimated GFR (Non-African Ame 56 (>=60); Glucose 95 mg/dL (74-106); Potassium 4.1 mmol/L (3.5-5.1); Sodium 137 mmol/L (136-145)
[2023-05-25 17:22] LABS: Influenza Virus A Antigen Negative; Influenza Virus B Antigen Negative; Internal Control Within Normal Limits
[2023-05-25 17:23] LABS: SARS-CoV-2 Ag POSITIVE (NEGATIVE)
[2023-05-25 17:31] LABS: Eosinophils Absolute Auto 0.1 10^3/uL (0.0-0.7); Eosinophils Percent Auto 0.9 % (0.9-7.0); Hematocrit 33.1 % (36.0-48.0); Immature Granulocytes Abs Auto 0.02 10^3/uL (0.00-0.03); Immature Granulocytes Pct Auto 0.3 % (0.0-0.5); Lymphocytes Absolute Auto 1.1 10^3/uL (1.2-3.8); Lymphocytes Percent Auto 16.7 % (20.5-60.0); Mean Corpuscular HGB Conc 30.2 g/dL (29.9-35.2); Mean Corpuscular Hemoglobin 24.9 pg (26.7-34.0); Mean Corpuscular Volume 82.3 fL (81.0-99.0); Mean Platelet Volume 9.2 fL (9.5-13.5); Monocytes Absolute Auto 0.6 10^3/uL (0.3-0.8); Monocytes Percent Auto 9.1 % (1.7-12.0); Neutrophils Absolute Auto 4.7 10^3/uL (1.4-6.5); Platelet Count 283 10^3/uL (150-450); Red Blood Count 4.02 10^6/uL (4.20-5.40); Red Cell Distribution Width 16.8 % (11.0-15.0); White Blood Count 6.4 10^3/uL (4.0-11.0)
== END 2023-05-25 17:59 | disposition home or self-care (01) ==
PROVIDERS: Emergency Provider Emergency Medicine
DX: U07.1 COVID-19 (principal); J45.909 Unspecified asthma, uncomplicated; Z79.899 Other long term (current) drug therapy
CPT/HCPCS: 36415; 71045; 80048; 85025; 87804; 87811; 94640; 96374; 99285; J2919

== ENCOUNTER 2023-08-01 12:59 | Emergency (ER) | payer BC, OTHER, SELFPAY | END 2023-08-01 13:12 | disposition left against medical advice (07) | LOC: ER 13:15 | PROVIDERS: Emergency Provider Emergency Medicine | DX: Z53.21 Procedure and treatment not carried out due to patient leaving prior to being seen by health care provider (principal) ==

== ENCOUNTER 2023-08-24 14:27 | Outpatient (OUT) | payer OTHER, SELFPAY ==
--- NOTE | 2023-08-24 | US_ITS ---
The [address] [address] Patient Name: MORRO GUADARRAMA MRN: [id number] date: 1985 Sex: F Assigned Patient Location: US Current Patient Location: Accession/Order Number: [id number] Exam Date: 08/24/2023 14:35 Report Date: 08/27/2023 04:59 At the request of: CLEO NUNEZ Procedure: US thyroid EXAMINATION: US thyroid HISTORY: Enlarged thyroid, Fatigue, Difficulty swallowing COMPARISON: No relevant comparison available. FINDINGS: RIGHT LOBE: Enlarged right lobe containing a 3.6 x 2.2 x 2.1 cm cystic structure with irregular lobular rico; TR 3. Lobe size: 5.6 x 2.7 x 2.5 cm LEFT LOBE: Normal size and echotexture. Lobe size: 3.9 x 1.1 x 1.3 cm ISTHMUS: Normal size and echotexture. Thickness: 3 mm OTHER: Within left neck corresponding to patient's palpable lump is a 2.2 x 1.1 x 0.8 cm prominent, but otherwise normal-appearing lymph node. US/US thyroid IMPRESSION: 1. Large, complex, but predominantly cystic TR 3 lesion within left lobe. By size criteria fine-needle aspiration should be considered. 2. Patient's palpable lump corresponds to a prominent, but otherwise benign-appearing lymph node. Clinical follow-up recommended. If finding persist, ultrasound-guided fine-needle aspiration could be performed. TR3 (mildly suspicious): > 1.5 cm, follow-up ultrasound in 1, 3, and 5 years. > 2.5 cm, fine needle aspiration. Electronically authenticated by: HANNAH CORTES Date: 08/27/2023 04:59
== END 2023-08-24 14:28 | disposition home or self-care (01) ==
LOC: US 14:27
PROVIDERS: PCP Nurse Practitioner; Visit Provider Nurse Practitioner
DX: E04.9 Nontoxic goiter, unspecified (principal); R13.10 Dysphagia, unspecified; R53.83 Other fatigue; E04.1 Nontoxic single thyroid nodule
CPT/HCPCS: 76536

== ENCOUNTER 2024-02-13 19:37 | Observation (INO) | payer MEDICAID, SELFPAY ==
[2024-02-13] VITALS (29 sets, daily range): BP systolic 132–154; BP diastolic 70–116; PULSE 88–115; TEMP 37.3; O2SAT 89–97; BMI 39.0
--- NOTE | 2024-02-13 19:44 | ECG_ITS ---
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
--- NOTE | 2024-02-13 19:44 | XR_ITS ---
The [address] [address] Patient Name: MORRO GUADARRAMA MRN: [id number] date: 1985 Sex: F Assigned Patient Location: ER Current Patient Location: ER Accession/Order Number: [id number] Exam Date: 02/13/2024 20:08 Report Date: 02/13/2024 21:49 At the request of: LIVIER YOUSSEF Procedure: XR chest 1V CXR HISTORY: Asthma exacerbation. COMPARISON: 05/25/2023 TECHNIQUE: 1 view of the chest submitted for review. FINDINGS: Lines and tubes: None Lungs are hyperaerated. Minimal prominence of interstitial lung markings. No effusion. The cardiac silhouette measures within normal. Pulmonary vascularity is unremarkable. Osseous structures are normal for age. XR/XR chest 1V IMPRESSION: Hyperexpanded lungs with mild prominence of interstitial lung markings which can be seen in the setting of asthma exacerbation. Electronically authenticated by: FELI ACEVEDO Date: 02/13/2024 21:49
--- NOTE | 2024-02-13 19:46 | ED_ITS ---
Documented by User: ABDIRASHID Aguilar 02/13/24 22:03 HPI - SOB/Dyspnea General Chief Complaint: Shortness of Breath/Dyspnea Stated Complaint: SOB Time Seen by Provider: 02/13/24 19:44 Source: patient History of Present Illness HPI Narrative: Patient is a 38 year old female who presents to the emergency department for shortness of breath, she has a history of asthma. She states she started to feel short of breath earlier today and she took a loading dose of 40 mg of prednisone about 12 hours ago. She states she has been using breathing treatments today but continues to feel more short of breath. She has not had any chest pain, fevers or hemoptysis. She has no concern for . She does not see a javascript web developer regularly. She has not been on any recent antibiotics. Related Data Home Medications ?Medication ?Instructions ?Recorded ?Confirmed albuterol sulfate 2.5 mg/3 mL mg 11/18/22 (0.083 %) solution for nebulization eszopiclone 3 mg tablet mg 11/18/22 fluticasone 250 mcg-salmeterol 50 inhalation 11/18/22 mcg/dose blistr powdr for inhalation (Advair Diskus) ipratropium bromide 0.02 % 11/18/22 solution for inhalation lamotrigine 150 mg tablet mg 11/18/22 lurasidone 40 mg tablet (Latuda) mg 11/18/22 sertraline 100 mg tablet mg 11/18/22 Previous Rx's ?Medication ?Instructions ?Recorded azithromycin 250 mg tablet See Rx Instructions PO .COMPLEX #6 11/18/22 (Zithromax Z-Lawrence) tabs benzonatate 100 mg capsule 100 mg PO TID PRN cough #20 caps 11/18/22 prednisone 10 mg tablet See Rx Instructions .Route 11/18/22 .COMPLEX #30 tabs doxycycline hyclate 100 mg capsule 100 mg PO BID 10 days #20 caps 01/05/23 lorazepam 1 mg tablet (Ativan) 1 mg PO Q8H PRN anxiety 4 days #12 01/05/23 tabs prednisone 10 mg tablet See Rx Instructions .Route 01/05/23 .COMPLEX #30 tabs nirmatrelvir 300 mg (150 mg See Rx Instructions PO .COMPLEX 05/25/23 x2)-ritonavir 100 mg tablet,dose #30 ea pack (Paxlovid) prednisone 10 mg tablet See Rx Instructions .Route 05/25/23 .COMPLEX #30 tabs Allergies Allergy/AdvReac Type Severity Reaction Status Date / Time No Known Drug Allergies Allergy Verified 02/13/24 19:44 Review of Systems ROS Constitutional Denies: fever or chills Ears, nose, mouth, and throat Denies: throat pain or nasal congestion Cardiovascular Denies: chest pain Respiratory Reports: shortness of breath, cough and wheezing Gastrointestinal Denies: nausea or vomiting Musculoskeletal Denies: back pain Integumentary/Breast Denies: rash Hematologic/Lymphatic Denies: easy bruising or easy bleeding Exam Narrative Exam Narrative: Gen.: Awake, alert, in no distress Head: Normocephalic, atraumatic ENT: Moist mucous membranes Respiratory: Patient is speaking in multiple word phrases, unable to complete sentences. Diminished lung sounds globally with faint expiratory wheezing Cardio: Regular rate and rhythm Extremities: Moves extremities equally Psych: Normal mood and affect Neuro: No focal neuro deficit Skin: Warm, dry, intact Constitutional Vital Signs, click to edit/add: Last Vital Signs Temp 99.2 F 02/13/24 19:45 Pulse 114 H 02/13/24 19:54 Resp 20 02/13/24 19:54 BP 144/116 H 02/13/24 19:45 Pulse Ox 92 L 02/13/24 21:13 O2 Del Method Room Air 02/13/24 21:13 Course Vital Signs Vital signs: Vital Signs Temperature 99.2 F 02/13/24 19:45 Pulse Rate 115 H 02/13/24 19:45 Respiratory Rate 24 H 02/13/24 19:45 Blood Pressure 144/116 H 02/13/24 19:45 Pulse Oximetry 92 L 02/13/24 19:45 Oxygen Delivery Method Room Air 02/13/24 19:45 Temperature 99.2 F 02/13/24 19:45 Pulse Rate 114 H 02/13/24 19:54 Respiratory Rate 20 02/13/24 19:54 Blood Pressure 144/116 H 02/13/24 19:45 Pulse Oximetry 92 L 02/13/24 21:13 Oxygen Delivery Method Room Air 02/13/24 21:13 MDM - SOB/Dyspnea MDM Narrative Medical decision making narrative: 2120: Patient had multiple breathing treatments at home prior to arrival without improvement, on arrival to the emergency department she has significant increased work of breathing with diminished lung sounds and wheezing. She was given a DuoNeb, IV magnesium sulfate and Solu-Medrol. She had no significant change in her symptoms and continues to have increased work of breathing and borderline hypoxia with pulse ox between 90 to 92% on room air. IV was established and labs were drawn. Chest x-ray was obtained, Vapotherm was ordered for the patient to make her breathing more comfortable. 2150: Patient states Vapotherm is very uncomfortable. Respiratory therapy is adjusting the flow, she did have improvement of her pulse oximetry on the Vapotherm and appears to be breathing more comfortably, able to speak more easily. 2202: Case turned over to attending physician pending road test and reevaluation. SHARED APC VISIT, PHYSICIAN ATTESTATION: [id number] I performed a substantive part of the MDM during the patient?s E/M visit. I personally evaluated and examined the patient. I personally made or approved the documented management plan and acknowledge its risk of complications. Medical Records Attestation: I reviewed the patient's medical records. Lab Data Attestation: I reviewed the patient's lab results. Labs: Lab Results 02/13/24 02/13/24 Range/Units 21:00 21:40 WBC 19.9 H (4.0-11.0) 10^3/uL RBC 4.53 (4.20-5.40) 10^6/uL Hgb 11.4 L (12.0-16.0) g/dL Hct 36.1 (36.0-48.0) % MCV 79.7 L (81.0-99.0) fL MCH 25.2 L (26.7-34.0) pg MCHC 31.6 (29.9-35.2) g/dL RDW 16.9 H (11.0-15.0) % Plt Count 336 (150-450) 10^3/uL MPV 9.4 L (9.5-13.5) fL Neut % (Auto) 92.5 H (43.0-75.0) % Lymph % (Auto) 4.4 L (20.5-60.0) % [place] % (Auto) 2.1 (1.7-12.0) % Eos % (Auto) 0.0 L (0.9-7.0) % Baso % (Auto) 0.1 L (0.2-2.0) % Neut # (Auto) 18.4 H (1.4-6.5) 10^3/uL Lymph # (Auto) 0.9 L (1.2-3.8) 10^3/uL [place] # (Auto) 0.4 (0.3-0.8) 10^3/uL Eos # (Auto) 0.0 (0.0-0.7) 10^3/uL Baso # (Auto) 0.0 (0.0-0.1) 10^3/uL Abs Immat Gran (auto) 0.17 H (0.00-0.03) 10^3/uL Imm/Tot Granulo (auto) 0.9 H (0.0-0.5) % Sodium 138 (136-145) mmol/L Potassium 4.0 (3.5-5.1) mmol/L Chloride 105 (98-107) mmol/L Carbon Dioxide 18.2 L (21.0-32.0) mmol/L Anion Gap 18.8 BUN 9.0 (7.0-18.0) mg/dL Creatinine 1.37 H (0.55-1.02) mg/dL Est GFR ( Amer) 52 L (>=60 mL/min/1.73m^2) Est GFR (Non-Af Amer) 43 L (>=60 mL/min/1.73m^2) BUN/Creatinine Ratio 6.6 Glucose 177 H (74-106) mg/dL Calcium 8.8 (8.5-10.1) mg/dL Total Bilirubin 0.4 (0.2-1.0) mg/dL AST 8 L (15-37) U/L ALT 11 L (14-59) U/L Alkaline Phosphatase 93 (46-116) U/L Total Protein 7.3 (6.4-8.2) g/dL Albumin 3.6 (3.4-5.0) g/dL Globulin 3.7 g/dL Albumin/Globulin Ratio 1.0 Influenza Type A Ag Negative Influenza Type B Ag Negative RSV Antigen Not detected (NOT DETECTE) SARS-CoV-2 Ag (CV2AG) Negative (NEGATIVE) Imaging Data Chest x-ray: Attestation: I have reviewed the pertinent imaging results. Radiologist's impression: ITS Impressions Chest X-Ray 02/13/24 19:44 IMPRESSION: Hyperexpanded lungs with mild prominence of interstitial lung markings which can be seen in the setting of asthma exacerbation. Electronically authenticated by: FELI ACEVEDO Date: 02/13/2024 21:49 ECG Data Attestation: I personally reviewed and interpreted this ECG as follows: (Sinus tachycardia at a rate of 102, no acute ST elevation or ectopy. EKG reviewed by attending physician) Discharge Plan Discharge Chief Complaint: Shortness of Breath/Dyspnea Clinical Impression: Asthma exacerbation Patient Disposition: Admitted as Observation Time of Disposition Decision: 22:15 Condition: Fair Documented by User: Hola Rogers MD 02/13/24 22:16 HPI - SOB/Dyspnea General Chief Complaint: Shortness of Breath/Dyspnea Stated Complaint: SOB Time Seen by Provider: 02/13/24 19:44 Related Data Home Medications ?Medication ?Instructions ?Recorded ?Confirmed albuterol sulfate 2.5 mg/3 mL mg 11/18/22 (0.083 %) solution for nebulization eszopiclone 3 mg tablet mg 11/18/22 fluticasone 250 mcg-salmeterol 50 inhalation 11/18/22 mcg/dose blistr powdr for inhalation (Advair Diskus) ipratropium bromide 0.02 % 11/18/22 solution for inhalation lamotrigine 150 mg tablet mg 11/18/22 lurasidone 40 mg tablet (Latuda) mg 11/18/22 sertraline 100 mg tablet mg 11/18/22 Previous Rx's ?Medication ?Instructions ?Recorded azithromycin 250 mg tablet See Rx Instructions PO .COMPLEX #6 11/18/22 (Zithromax Z-Lawrence) tabs benzonatate 100 mg capsule 100 mg PO TID PRN cough #20 caps 11/18/22 prednisone 10 mg tablet See Rx Instructions .Route 11/18/22 .COMPLEX #30 tabs doxycycline hyclate 100 mg capsule 100 mg PO BID 10 days #20 caps 01/05/23 lorazepam 1 mg tablet (Ativan) 1 mg PO Q8H PRN anxiety 4 days #12 01/05/23 tabs prednisone 10 mg tablet See Rx Instructions .Route 01/05/23 .COMPLEX #30 tabs nirmatrelvir 300 mg (150 mg See Rx Instructions PO .COMPLEX 05/25/23 x2)-ritonavir 100 mg tablet,dose #30 ea pack (Paxlovid) prednisone 10 mg tablet See Rx Instructions .Route 05/25/23 .COMPLEX #30 tabs Allergies Allergy/AdvReac Type Severity Reaction Status Date / Time No Known Drug Allergies Allergy Verified 02/13/24 19:44 Exam Constitutional Vital Signs, click to edit/add: Last Vital Signs Temp 99.2 F 02/13/24 19:45 Pulse 114 H 02/13/24 19:54 Resp 20 02/13/24 19:54 BP 144/116 H 02/13/24 19:45 Pulse Ox 92 L 02/13/24 21:13 O2 Del Method Room Air 02/13/24 21:13 Course Vital Signs Vital signs: Vital Signs Temperature 99.2 F 02/13/24 19:45 Pulse Rate 115 H 02/13/24 19:45 Respiratory Rate 24 H 02/13/24 19:45 Blood Pressure 144/116 H 02/13/24 19:45 Pulse Oximetry 92 L 02/13/24 19:45 Oxygen Delivery Method Room Air 02/13/24 19:45 Temperature 99.2 F 02/13/24 19:45 Pulse Rate 114 H 02/13/24 19:54 Respiratory Rate 20 02/13/24 19:54 Blood Pressure 144/116 H 02/13/24 19:45 Pulse Oximetry 92 L 02/13/24 21:13 Oxygen Delivery Method Room Air 02/13/24 21:13 MDM - SOB/Dyspnea MDM Narrative Medical decision making narrative: 2120: Patient had multiple breathing treatments at home prior to arrival without improvement, on arrival to the emergency department she has significant increased work of breathing with diminished lung sounds and wheezing. She was given a DuoNeb, IV magnesium sulfate and Solu-Medrol. She had no significant change in her symptoms and continues to have increased work of breathing and borderline hypoxia with pulse ox between 90 to 92% on room air. IV was established and labs were drawn. Chest x-ray was obtained, Vapotherm was ordered for the patient to make her breathing more comfortable. 2150: Patient states Vapotherm is very uncomfortable. Respiratory therapy is adjusting the flow, she did have improvement of her pulse oximetry on the Vapotherm and appears to be breathing more comfortably, able to speak more easily. 2202: Case turned over to attending physician pending road test and reevaluation. SHARED APC VISIT, PHYSICIAN ATTESTATION: [id number] I performed a substantive part of the MDM during the patient?s E/M visit. I personally evaluated and examined the patient. I personally made or approved the documented management plan and acknowledge its risk of complications. We ambulated the patient and her O2 sat went to 79% on room air. She has audible wheezing and is agreeable to being admitted overnight. Blood cultures were obtained and she was given IV Rocephin and Zithromax and she was given IV Solu-Medrol and multiple aerosol treatments as well. Treatment diagnosis and disposition were discussed with the patient. Differential Diagnosis Differential diagnosis: Likely acute exacerbation of chronic obstructive airways disease and community acquired pneumonia Lab Data Labs: Lab Results 02/13/24 02/13/24 Range/Units 21:00 21:40 WBC 19.9 H (4.0-11.0) 10^3/uL RBC 4.53 (4.20-5.40) 10^6/uL Hgb 11.4 L (12.0-16.0) g/dL Hct 36.1 (36.0-48.0) % MCV 79.7 L (81.0-99.0) fL MCH 25.2 L (26.7-34.0) pg MCHC 31.6 (29.9-35.2) g/dL RDW 16.9 H (11.0-15.0) % Plt Count 336 (150-450) 10^3/uL MPV 9.4 L (9.5-13.5) fL Neut % (Auto) 92.5 H (43.0-75.0) % Lymph % (Auto) 4.4 L (20.5-60.0) % [place] % (Auto) 2.1 (1.7-12.0) % Eos % (Auto) 0.0 L (0.9-7.0) % Baso % (Auto) 0.1 L (0.2-2.0) % Neut # (Auto) 18.4 H (1.4-6.5) 10^3/uL Lymph # (Auto) 0.9 L (1.2-3.8) 10^3/uL [place] # (Auto) 0.4 (0.3-0.8) 10^3/uL Eos # (Auto) 0.0 (0.0-0.7) 10^3/uL Baso # (Auto) 0.0 (0.0-0.1) 10^3/uL Abs Immat Gran (auto) 0.17 H (0.00-0.03) 10^3/uL Imm/Tot Granulo (auto) 0.9 H (0.0-0.5) % Sodium 138 (136-145) mmol/L Potassium 4.0 (3.5-5.1) mmol/L Chloride 105 (98-107) mmol/L Carbon Dioxide 18.2 L (21.0-32.0) mmol/L Anion Gap 18.8 BUN 9.0 (7.0-18.0) mg/dL Creatinine 1.37 H (0.55-1.02) mg/dL Est GFR ( Amer) 52 L (>=60 mL/min/1.73m^2) Est GFR (Non-Af Amer) 43 L (>=60 mL/min/1.73m^2) BUN/Creatinine Ratio 6.6 Glucose 177 H (74-106) mg/dL Calcium 8.8 (8.5-10.1) mg/dL Total Bilirubin 0.4 (0.2-1.0) mg/dL AST 8 L (15-37) U/L ALT 11 L (14-59) U/L Alkaline Phosphatase 93 (46-116) U/L Total Protein 7.3 (6.4-8.2) g/dL Albumin 3.6 (3.4-5.0) g/dL Globulin 3.7 g/dL Albumin/Globulin Ratio 1.0 Influenza Type A Ag Negative Influenza Type B Ag Negative RSV Antigen Not detected (NOT DETECTE) SARS-CoV-2 Ag (CV2AG) Negative (NEGATIVE) Imaging Data Chest x-ray: Radiologist's impression: ITS Impressions Chest X-Ray 02/13/24 19:44 IMPRESSION: Hyperexpanded lungs with mild prominence of interstitial lung markings which can be seen in the setting of asthma exacerbation. Electronically authenticated by: FELI ACEVEDO Date: 02/13/2024 21:49 Critical Care Time Critical Care Time Critical Care Time: Yes Total Critical Care Time: 40 Attestation: Due to the high probability of sudden and clinically significant deterioration in the patient's condition he/she required the highest level of my preparedness to intervene urgently I provided critical care time including documentation time, medication orders and management, reevaluation, vital sign assessment, ordering and reviewing of lab tests, ordering and reviewing of x-ray studies, and admission orders. Aggregate critical care time is 40 minutes including only time during which I was engaged in work directly related to his/her care and did not include time spent treating other patients simultaneously. Discharge Plan Discharge Chief Complaint: Shortness of Breath/Dyspnea Clinical Impression: Asthma exacerbation Patient Disposition: Admitted as Observation Time of Disposition Decision: 22:15 Condition: Fair
--- OUTSIDE RECORDS SUMMARY | 2024-02-13 19:46 | XMS_ITS | CCD ---
Author Organization [facility] Care Team Providers Care Single Stroke Preformer Name Role Phone RINE, JACKELYN L Referring Unavailable RINE, JACKELYN L Primary Care Unavailable NAZEMI, ARACELY I Admitting Unavailable NAZEMI, ARACELY I Attending Unavailable RINE, JACKELYN L Primary Care Unavailable HANNAH KIM Referring Unavailable RINE, JACKELYN L Primary Care Unavailable HANNAH KIM Referring Unavailable RINE, JACKELYN L Primary Care Unavailable HANNAH KIM Referring Unavailable RINE, JACKELYN L Primary Care Unavailable HANNAH KIM Referring Unavailable RINE, JACKELYN L Primary Care Unavailable HANNAH KIM Referring Unavailable RINE, JACKELYN L Primary Care Unavailable HANNAH KIM Referring Unavailable RINE, JACKELYN L Primary Care Unavailable POOL, LETICIA E Referring Unavailable RINE, JACKELYN L Primary Care Unavailable POOL, LETICIA E Referring Unavailable RINE, JACKELYN L Primary Care Unavailable RINE, JACKELYN L Primary Care Unavailable MORALES FLORES Admitting Unavailable MORALES FLORES Attending Unavailable RINE, JACKELYN L Primary Care Unavailable POOL, LETICIA E Admitting Unavailable POOL, LETICIA E Attending Unavailable RINE, JACKELYN L Primary Care Unavailable POOL, LETICIA E Referring Unavailable RINE, JACKELYN L Primary Care Unavailable RINE, JACKELYN L Primary Care Unavailable POOL, LETICIA E Admitting Unavailable POOL, LETICIA E Attending Unavailable POOL, LETICIA E Admitting Unavailable POOL, LETICIA E Attending Unavailable RINE, JACKELYN L Primary Care Unavailable POOL, LETICIA E Referring Unavailable RINE, JACKELYN L Primary Care Unavailable POOL, LETICIA E Admitting Unavailable POOL, LETICIA E Attending Unavailable RINE, JACKELYN L Primary Care Unavailable Brandon Perez Unavailable Rolly Carrera Unavailable Unavailable Primary Care Provider Unavailabl e Unavailable Primary Care Provider Unavailabl e ERAN Selby Primary Care Provider MD Jason Milton Jr Emergency Provider Al MD Andres Evans Admit Provider Al MD Andres Evans Attending Provider DO Jp Barba Attending Provider ERAN Selby Primary Care Provider MD Jason Milton Jr Emergency Provider Al MD Andres Evans Admit Provider DO Jp Barba Attending Provider [phone] MYKEL Britt Emergency Provider MD Nan Brand Admit Provider MD Nan Brand Attending Provider [phone] MD Hema Miramontes Attending Provider MYKEL Terry Emergency Provider KELLY GUERRERO Admitting Unavailable KELLY GUERRERO Attending Unavailable MARIYA GUERREROID Consulting Unavailable WENDY ROMAN Consulting Unavailable Cleo Hernandez Primary Care Physician Cleo Hernandez Admitting Unavailable MayraCleo L Attending Unavailable Hajdari, Astrit H Attending Unavailable Adamowicz, José Antonio Admitting Unavailable Adamowicz, José Antonio Attending Unavailable Adamowicz, José Antonio Referring Unavailable MARTA Garcia- Quyen Pozo Attending U navailable Adamowicz, José Antonio Admitting Unavailable Adamowicz, José Antonio Attending Unavailable Stefan Mclean A. Admitting Unavailable MoStefan mosquera Attending Unavailable MoStefan mosquera A. Attending Unavailable Adamowicz, José Antonio Admitting Unavailable Adamowicz, José Antonio Attending Unavailable Adamowicz, José Antonio Attending Unavailable Adamowicz, José Antonio Admitting Unavailable Mayra, Cleo L Attending Unavailable Mayra, Cleo L Admitting Unavailable Mayra, Cleo L Attending Unavailable Mayra, Cleo L Attending Unavailable Mayra, Cleo L Admitting Unavailable Mayra, Cleo L Attending Unavailable Mayra, Cleo L Admitting Unavailable Mayra, Cleo L Attending Unavailable Mayra, Cleo L Attending Unavailable Mayra, Cleo L Attending Unavailable Mayra, Cloe L Attending Unavailable Stefan Mclean Referring Unavailable Stefan Mclean Attending Unavailable MouchGermán popeamakaylan Martinez Admitting Unavailable MouchStefan pope Attending Unavailable MurDO Brandon batista Attending Provider [phone] ERAN Hernandez Primary Care Provider Quyen Garcia Attending Unavailable Demboske, Quyen Pozo Admitting Unavailable Mayra, Cleo Rivas Primary Care Unavailable Murcebety, Brandon Admitting Unavailable Murcek, Brandon Attending Unavailable Murcek, Brandon Admitting Unavailable Murcek, Brandon Attending Unavailable Murcek, Brandon Admitting Unavailable Murcek, Brandon Attending Unavailable Mayra, Cleo Rivas Primary Care Unavailable Mayra, CROWNING INSPECTOR Cleo L Admitting Unavailable Mayra, CROWNING INSPECTOR Cleo L Attending Unavailable Mayra, CROWNING INSPECTOR Cleo L Referring Unavailable Elizabeth Moise H Attending Unavailable ABDULLAHI SELBY Attending Unavailable MONY-NOSSEKROLLY Attending Unavailab le MONY-NOSSEK, ROLLY Abdul Attending Unavailab le MURCEBRANDON Albert Attending Unavailable MAYRA, CLEO Referring Unavailable MURCEK, BRANDON W Attending Unavailable MURCEK, BRANDON W Attending Unavailable MURCEKBRANDON W Attending Unavailable Demboske, [facility]- Quyen Pozo Admitting U navailable Demboske, [facility]- Quyen Pozo Attending U navailable Mayra, Cleo Rebolledo Attending Unavailable Mony-Nossek [employer]PLE PICKING SUPERVISOR-CORK FLOOR INSTALLER, Rolly Abdul Unavailable Abdullahi Selby NP Unavailable Cleo Hernandez MD Unavailable Brandon Juares DO Unavailable [phone] Chet Isabel MD Primary Care Provider [phone] Allergies Allergy Classification Reported Allergen(s) Allergy Type Date of Onset Reaction(s) Facility (6 sources) Mold Extract; Translations: [mold] Drug Allergy 2 Nasal Discharge [facility] (6 sources) ARIPiprazole Drug Allergy 3 [facility] (6 sources) FLUoxetine Drug Allergy 3 [facility] (6 sources) Mold Extract Drug Allergy 4 [facility] Medications Current Medications Medication Drug Class(es) Dates Sig (Normalized) Sig (Original) [id number] 200 actuat albuterol 0.09 mg/actuat metered dose inhaler (20 sources) beta2-Adrenergic Agonist Start: 08-24-2023 albuterol HFA 90 mcg/act inhaler Indications: Moderate asthma with acute exacerbation, unspecified whether persistent ([facility]) , Wheezing , Chest congestion INHALE 2 PUFFS IF NEEDED FOR WHEEZING OR SHORTNESS OF BREATH 18 g 1 08/24/2023 Active Start: 10-18-2022 take 2 puff(s) by in halation every four hours Albuterol (Eqv-ProAir HFA) 2 puff(s), Inhalation, q4hr Shortness of breath or wheezing, Refill(s) 0 Start Date: 10/18/22 Status: Ordered Start: 05-03-2022 albuterol (2.5 MG/3ML) 0.083% nebulizer solution Take 2.5 mg by nebulization every 6 (six) hours if needed. 05/03/2022 Active Start: 09-18-2021 PROAIR HFA 90 mcg/actuation inhaler take 1 puff(s) by in halation every four hours as needed Albuterol Sulfate HFA 108 (90 Base) MCG/ACT 1 puff as needed Inhalation every 4 hrs Active take 1 puff(s) by in halation every four hours as needed Albuterol Sulfate HFA 108 (90 Base) MCG/ACT 1 puff as needed Inhalation every 4 hrs Active Albuterol Sulfate (Proventil Hfa) 90 mcg/actuation Hfa Aerosol Inhaler (8 sources) Start: 03-31-2018 Albuterol Sulf ate (Proventil Hfa) 90 mcg/actuation Hfa Aerosol Inhaler Active 90 MCG INHALATION As Directed March 31, 2018 12:00am Start: 03-31-2018 Albuterol Sulf ate (Proventil Hfa) 90 mcg/actuation Hfa Aerosol Inhaler Active 90 MCG INHALATION As Directed March 31, 2018 1:00am ALPRAZolam 0.5 mg oral tablet (6 sources) Benzodiazepine Start: 05-31-2023 take 1 tablet by mouth three times daily as needed for anxiety ALPRAZolam (Xanax) 0.5 MG tablet Indications: Anxiety Take 1 tablet (0.5 mg) by mouth 3 (three) times a day as needed for anxiety 30 tablet 05/31/2023 Active ARIPiprazole 30 mg oral tablet (6 sources) Atypical Antipsychotic Start: 09-19-2023 take 1 tablet by mouth once daily ARIPiprazole (Abilify) 30 MG tablet Take 30 mg by mouth Daily 09/19/2023 Active dexamethasone 1 mg/ml / neomycin 3.5 mg/ml / polymyxin b [id number] unt/ml ophthalmic suspension (2 sources) Aminoglycoside Antibacterial, Polymyxin-class Antibacterial, Corticosteroid Start: 11-26-2021 End: 12-03-2021 take 1 drop(s) into the eye(s) three times daily NEOMYCIN-POLYMYXIN- DEXAMETH 3.5 MG/ML-10,000 UNIT/ML-0.1% EYE DROPS Use 1 Drop in both eyes three times daily for 7 days. 5 mL 0 11/26/2021 12/03/2021 Active Comment on above: Use 1 Drop in both e yes three times daily for 7 days. docusate sodium 200 mg oral capsule (16 sources) Start: 08-05-2023 Docusate Sodium (COLACE PO) Take 200 mg by mouth 08/05/2023 Active ergocalciferol 1.25 mg oral capsule (13 sources) Provitamin D2 Compound Start: 10-12-2023 End: 12-29-2023 take 1 capsule by mouth every week ergocalciferol (Drisdol) 1.25 MG (28680 UT) capsule Indications: Low vitamin D level Take 1 capsule (1.25 mg) by mouth 1 (one) time per week for 12 doses 4 capsule 2 10/12/2023 12/29/2023 Active Start: 06-08-2021 End: 09-28-2022 take 1 capsule by mouth every week, then take 1 capsule by mouth every month Ergocalciferol (Vitamin D2) Discontinued 32266 UNIT PO As Directed June 08, 2021 12:00am November 18, 2021 2:29am take one cap every week for 8 weeks, then one cap every months after that. eszopiclone 3 mg oral tablet (19 sources) Start: 10-14-2022 eszopiclone (Lunesta) 3 MG tablet Indications: Insomnia, unspecified type Take 1 tablet (3 mg) by mouth as needed at bedtime for sleep Take immediately before bedtime 30 tablet 05/31/2023 Active fluticasone / salmeterol (20 sources) Corticosteroid , beta2-Adrenerg ic Agonist Start: 10-18-2022 take 2 puff(s) by inhalation at bedtime Advair Diskus 500 mcg-50 mcg inhalation powder See Instructions, Refill(s) 0, 2 puffs at bedtime Start Date: 10/18/22 Status: Ordered Start: 12-28-2021 take 1 puff(s) by in halation in the morning fluticasone-salmeterol (Advair Diskus) 500-50 MCG/DOSE diskus inhaler Inhale 1 puff in the morning and 1 puff before bedtime. 12/28/2021 Active Start: 12-28-2021 End: 04-25-2023 Fluticasone Propion-Salmeter ol (Advair Diskus) 500-50 mcg/dose blister with device Discontinued 1 INH INHALATION Twice daily 60 December 28, 2021 1:00am April 25, 2023 8:29am Start: 12-28-2021 Fluticasone Pr opion-Salmeterol (Advair Diskus) 500-50 mcg/dose blister with device Active 1 INH INHALATION Twice daily 60 December 28, 2021 12:00am Start: 06-26-2020 End: 04-11-2021 Fluticasone Propion-Salmeter ol (Advair Diskus) 250-50 mcg/dose blister with device Discontinued 1 INH INHALATION Twice daily 60 June 25, 2020 11:00pm April 11, 2021 3:33pm Start: 06-26-2020 End: 04-11-2021 Fluticasone Propion-Salmeter ol (Advair Diskus) 250-50 mcg/dose blister with device Discontinued 1 INH INHALATION Twice daily 60 June 26, 2020 12:00am April 11, 2021 4:33pm folic acid 1 mg oral tablet (15 sources) Start: 08-15-2023 folic acid (Folvite) 1 MG tablet Take 1 mg by mouth 08/15/2023 Active gabapentin 100 mg oral capsule (17 sources) Anti-epileptic Agent Start: 04-25-2023 take 2 capsules by mouth twice daily Gabapentin Active 200 MG PO Twice daily April 25, 2023 1:00am FreeTextSi capsules Orally twice daily; Note: Source Status: [id number] chronic pain; Refills: 0; Qty: 120 capsules; Start: 04-11-2021 End: 11-18-2021 take 200 mg by mouth twice daily Gabapentin Discontinu ed 200 MG PO Twice daily April 11, 2021 1:00am November 18, 2021 2:29am Start: 03-03-2020 take 2 capsules by m outh twice daily Gabapentin 100 MG 2 capsules Orally twice daily for 30 day(s) g89.29 chronic pain Feb, Active Start: 03-03-2020 take 2 capsules by m outh once daily at bedtime Gabapentin 100 MG 2 capsules Orally qhs for 30 day(s) g89.29 chronic pain Feb, Active ipratropium bromide 0.2 mg/ml inhalation solution (6 sources) Anticholinergic Start: 05-27-2022 ipratropium (Atrovent) 0.02 % nebulizer solution Take 0.5 mg by nebulization if needed. 05/27/2022 Active lamoTRIgine 200 mg oral tablet (20 sources) Mood Stabilizer, Anti-epileptic Agent Start: 08-05-2023 take 1 tablet by mouth once daily lamotrigine 200 mg Tab 200 mg = 1 tab(s), Oral, Daily Start Date: 08/05/23 Status: Ordered Start: 05-31-2023 take 1 tablet by pratik th in the morning lamoTRIgine (LaMICtal) 150 MG tablet Indications: Bipolar II disorder (CMS/HCC) Take 1 tablet (150 mg) by mouth in the morning and 1 tablet (150 mg) before bedtime. 60 tablet 1 05/31/2023 Active Start: 04-25-2023 take 1 tablet by pratik th once daily Lamotrigine (Lamictal) 100 mg tablet Active 100 MG PO Daily April 25, 2023 1:00am FreeTextSi tablet Orally Once a day; Note: Source Status: Taking; Start: 10-14-2022 lamotrigine 15 0 mg Tab Refills(s) 0 Start Date: 10/14/22 Status: Ordered Start: 04-11-2021 End: 04-25-2023 take 200 mg by mouth once daily Lamotrigine Discontinu ed 200 MG PO Daily April 11, 2021 1:00am April 25, 2023 8:27am take 1 tablet by pratik th every twenty-four hours LaMICtal 100 MG 1 tablet Orally Once a day Active Comment on above: Take 1 tablet by pratik th once daily. 3 ml liraglutide 6 mg/ml pen injector (17 sources) GLP-1 Receptor Agonist Start: 04-25-2023 Liraglutide (Victoza 2-Lawrence) 0.6 mg/0.1 mL (18 mg/3 mL) pen injector Active 1.8 MG SUBCUT Daily April 25, 2023 1:00am FreeTextSi.8 mg Subcutaneous Daily; Note: Source Status: Taking; Refills: 1; Qty: 1 Box; Provider: Varsha Cortes Start: 05-25-2020 End: 04-11-2021 Liraglutide (Victoza 2-Lawrence) 0.6 mg/0.1 mL (18 mg/3 mL) pen injector Discontinued 1.8 MG SUBCUT As Directed May 25, 2020 12:00am April 11, 2021 4:33pm lurasidone hydrochloride 60 mg oral tablet (20 sources) Atypical Antipsychotic Start: 10-18-2022 take 1 tablet by mouth once daily lurasidone 60 mg oral tablet 60 mg = 1 tab(s), Oral, Daily, Refills(s) 0 Start Date: 10/18/22 Status: Ordered Start: 05-17-2019 take 1 tablet by pratik th once daily Lurasidone (Latuda) 40 mg tablet Active 40 MG PO Daily May 17, 2019 12:00am take 1 tablet by pratik th every twenty-four hours lurasidone (LATUDA) 40 mg tablet Take by mouth q 24 HR. 0 Active Comment on above: Take by mouth q 24 H R. 24 hr metFORMIN hydrochloride 750 mg extended release oral tablet (18 sources) Biguanide Start: take 2 tablets by mouth once daily at mealtime Metformin Active 1500 MG PO Daily April 25, 2023 1:00am FreeTextSi tablets with food Orally Once a day; Note: Source Status: Taking; Provider: Chris Taylor ( ) Start: 03-31-2018 metFORMIN (GLU COPHAGE) 500 mg tablet Take 500 mg by mouth as directed. 0 03/31/2018 Active Start: 03-31-2018 End: 04-25-2023 take 1500 mg by mouth once daily Metformin Discontinued 1500 MG PO Daily March 31, 2018 1:00am April 25, 2023 8:28am take 2 tablets by mo uth every twenty-four hours metFORMIN HCl ER 750 MG 2 tablets with food Orally Once a day Active Comment on above: Take 500 mg by mouth as directed. methylPREDNISolone 4 mg oral tablet (7 sources) Corticosteroid Start: 08-01-2023 End: 08-07-2023 Medrol 4 mg Tab = 1 packet(s), Oral, As Directed, as directed on package labeling, X 6 day(s), # 21 tab(s), Refills(s) 0, Pharmacy: [facility]/pharmacy #[id number], 161, cm, 08/01/23 14:17:00 EDT, Height/Length Dosing, 107.3, kg, 08/01/23 14:17:00 EDT, Weight Dosing Start Date: 08/01/23 Stop Date: 08/07/23 Status: Ordered Start: 12-28-2021 End: 04-25-2023 take 1 tablet by mouth once Methylprednisolone (Medrol (Lawrence)) 4 mg tablets,dose pack Discontinued 0 PO .COMPLEX December 28, 2021 1:00am April 25, 2023 8:30am orally per package directions phentermine hydrochloride 37.5 mg oral tablet (1 source) Sympathomimetic Amine Anorectic Start: 10-18-2022 take 1 tablet by mouth once daily phentermine 37.5 mg Tab 37.5 mg = 1 tab(s), Oral, Daily, # 30 tab(s), Refills(s) 0, Pharmacy: [id number], 161, cm, 10/18/22 14:05:00 EDT, Height/Length Dosing, 105.6, kg, 10/18/22 13:58:00 EDT, Weight Dosing Start Date: 10/18/22 Status: Ordered predniSONE 10 mg oral tablet (20 sources) Start: 03-29-2023 predniSONE (Deltasone) 10 MG tablet TAKE 6 TABS X2 DAYS,5 X2 DAYS,4 X2 DAYS,3 X2 DAYS,2 X2 DAYS,1 TAB FOR 2 DAYS 03/29/2023 Active Start: 02-08-2022 End: 04-25-2023 Prednisone Discontinued 40 M G PO Daily 8 February 08, 2022 1:00am April 25, 2023 8:30am days 11-21 of therapy Start: 11-19-2021 End: 12-27-2021 Prednisone Discontinued 0 PO .COMPLEX November 19, 2021 12:00am December 27, 2021 4:16pm prednisone 5 mg: take 8 tablets (40 mg) on Day 1; 7 tablets (35 mg) on Day 2; then decrease by 1 tablet every day until finished Start: 05-06-2021 End: 06-07-2021 take 50 mg by mouth once daily Prednisone Discontinued 50 MG PO Daily 4 May 06, 2021 12:00am June 07, 2021 12:36am Start: 06-26-2020 End: 05-06-2021 take 40 mg by mouth once daily at mealtime Prednisone Discontinued 40 MG PO Daily April 11, 2021 1:00am May 06, 2021 8:20am administer with food or milk Start: 01-09-2020 End: 05-25-2020 take 60 mg by mouth once daily Prednisone Discontinued 60 MG PO Daily January 09, 2020 1:00am May 25, 2020 7:58pm Start: 03-31-2018 End: 05-17-2019 take 60 mg by mouth once daily at mealtime Prednisone Discontinued 60 MG PO Daily 9 March 31, 2018 1:00am May 17, 2019 8:32pm administer with food or milk sertraline 100 mg oral tablet (20 sources) Serotonin Reuptake Inhibitor Start: 05-31-2023 take 2 tablets by mouth once daily sertraline (Zoloft) 100 MG tablet Indications: Anxiety Take 2 tablets (200 mg) by mouth Daily 60 tablet 1 05/31/2023 Active Start: 04-11-2021 take 1 tablet by pratik th once daily sertraline 100 mg Tab 100 mg = 1 tab(s), Oral, Daily, Refills(s) 0, Depression Start Date: 03/29/23 Status: Ordered Sertraline HCl A ctive spironolactone 50 mg oral tablet (17 sources) Aldosterone Antagonist Start: 04-25-2023 take 1 tablet by mouth once daily at mealtime Spironolactone Active 50 MG PO Daily April 25, 2023 1:00am FreeTextSi tablet with food Orally Once a day; Note: Source Status: Taking; Provider: Chris Taylor ( ) Start: 05-17-2019 End: 04-11-2021 take 50 mg by mouth once daily Spironolactone Discontinued 50 MG PO Daily May 17, 2019 12:00am April 11, 2021 4:33pm Venofer 20 mg/mL Soln-IV (11 sources) Start: 08-02-2023 take 500 mg intravenously every other week Venofer 20 mg/mL Soln-IV See Instructions, 500 mg IV every 2 weeks x 2 doses, # 25 mL, Refills(s) 0, 161, cm, 08/01/23 14:17:00 EDT, Height/Length Dosing, 107.3, kg, 08/01/23 14:17:00 EDT, Weight Dosing Start Date: 08/02/23 Status: Ordered Ventolin HFA 90 mcg/inh Aerosol-Adpt (13 sources) Start: 10-07-2023 take 2 puff(s) by inhalation every four hours for wheezing Ventolin HFA 90 mcg/inh Aerosol-Adpt 2 puff(s), Inhalation, q4hr for wheezing, 18 gram, Refill(s) 11, [facility]/pharmacy #[id number], 161, cm, 09/21/23 15:12:00 EDT, Height/Length Dosing, 108, kg, 09/21/23 15:12:00 EDT, Weight Dosing Start Date: 10/07/23 Status: Ordered Start: 12-31-2022 take 2 puff(s) by in halation every four hours for wheezing Ventolin HFA 90 mcg/inh Aerosol-Adpt 2 puff(s), Inhalation, q4hr for wheezing, 18 gram, Refill(s) 5, [facility]/pharmacy #[id number], 161, cm, 10/18/22 14:05:00 EDT, Height/Length Dosing, 105.6, kg, 10/18/22 13:58:00 EDT, Weight Dosing Start Date: 12/31/22 Status: Ordered Start: 10-18-2022 take 2 puff(s) by in halation every four hours for wheezing Ventolin HFA 90 mcg/inh Aerosol-Adpt 2 puff(s), Inhalation, q4hr for wheezing, 18 gram, Refill(s) 0, [id number], 161, cm, 10/18/22 14:05:00 EDT, Height/Length Dosing, 105.6, kg, 10/18/22 13:58:00 EDT, Weight Dosing Start Date: 10/18/22 Status: Ordered Completed/Discontinued Medications Medication Drug Class(es) Dates Sig (Normalized) Sig (Original) acetaminophen 325 mg / HYDROcodone bitartrate 5 mg oral tablet (8 sources) Opioid Agonist Start: 05-17-2019 End: 04-11-2021 take 1 tablet by mouth four times daily Hydrocodone-Acetamin ophen (Hillister) 5-325 mg tablet Discontinued 1 TAB PO Four times daily 12 3 May 17, 2019 April 11, 2021 4:32pm amoxicillin 500 mg oral capsule (8 sources) Penicillin-class Antibacterial Start: 04-11-2021 End: 05-06-2021 take 500 mg by mouth three times daily Amoxicillin Discontinued 500 MG PO Three times daily April 11, 2021 1:00am May 06, 2021 8:20am aspirin 81 mg delayed release oral tablet (8 sources) Platelet Aggregation Inhibitor, Nonsteroidal Anti-inflammatory Drug Start: 03-31-2018 End: 05-17-2019 take 1 tablet by mouth once daily Aspirin (Aspir-81) 81 mg Tablet,Delayed Release (Dr/Ec) Discontinued 81 MG PO Daily March 31, 2018 1:00am May 17, 2019 8:32pm azithromycin 250 mg oral tablet (8 sources) Macrolide Antimicrobial Start: 06-26-2020 End: 04-11-2021 take 1 tablet by mouth once daily Azithromycin (Zithromax) 250 mg tablet Discontinued 250 MG PO daily 4 June 26, 2020 12:00am April 11, 2021 4:32pm First dose given in ED ciprofloxacin 2 mg/ml / hydrocortisone 10 mg/ml otic suspension (8 sources) Corticosteroid, Quinolone Antimicrobial Start: 04-11-2021 End: 05-06-2021 Ciprofloxacin-Hydroc ortisone (Cipro Hc) 0.2-1 % drops,suspension Discontinued 3 DROPS EAR-LEFT Twice daily 42 7 April 11, 2021 1:00am May 06, 2021 8:20am cyclobenzaprine hydrochloride 10 mg oral tablet (8 sources) Muscle Relaxant Start: 01-09-2020 End: 04-11-2021 take 10 mg by mouth three times daily Cyclobenzaprine Discontinued 10 MG PO Three times daily January 09, 2020 7:36pm April 11, 2021 4:32pm doxycycline hyclate 100 mg oral tablet (8 sources) Tetracycline-class Drug Start: 05-25-2020 End: 04-11-2021 take 100 mg by mouth twice daily Doxycycline Hyclate Discontinued 100 MG PO Twice daily 20 May 25, 2020 12:00am April 11, 2021 4:32pm FLUoxetine 40 mg oral capsule (8 sources) Serotonin Reuptake Inhibitor Start: 05-17-2019 End: 04-11-2021 take 40 mg by mouth once daily Fluoxetine Discontinued 40 MG PO Daily May 17, 2019 12:00am April 11, 2021 4:33pm levalbuterol 0.21 mg/ml inhalation solution (8 sources) beta2-Adrenergic Agonist Start: 05-06-2021 End: 04-25-2023 Levalbuterol Hcl (Xopenex) 0.63 mg/3 mL Solution For Nebulization Discontinued 0.63 MG INHALATION As Directed May 06, 2021 12:00am April 25, 2023 8:30am lumateperone 42 mg oral capsule (4 sources) Start: 03-29-2023 take 1 capsule by mouth once daily in the morning Caplyta 42 mg oral capsule 42 mg = 1 cap(s), Oral, Daily, TAKE 1 CAPSULE BY MOUTH IN THE MORNING Start Date: 03/29/23 Status: Ordered naproxen 500 mg oral tablet (16 sources) Nonsteroidal Anti-inflammatory Drug Start: 05-17-2019 End: 04-11-2021 take 1 tablet by mouth twice daily Naproxen (Naprosyn) 500 mg tablet Discontinued 500 MG PO Twice daily January 09, 2020 1:00am April 11, 2021 4:32pm ondansetron 4 mg disintegrating oral tablet (8 sources) Serotonin-3 Receptor Antagonist Start: 05-25-2020 End: 04-11-2021 take 4 mg by mouth every eight hours Ondansetron Discontinued 4 MG PO Q8H 9 May 25, 2020 12:00am April 11, 2021 4:32pm QUEtiapine 100 mg oral tablet (8 sources) Atypical Antipsychotic Start: 04-11-2021 End: 05-06-2021 Quetiapine Discontinued MG TABLET April 11, 2021 1:00am May 06, 2021 8:20am Problems Active Problems Problem Classification Problem Date Documented Da te Episodic/Chronic Anxiety disorders (15 sources) Panic disorder; Translations: [Panic disorder [episodic paroxysmal anxiety]] Onset: 07-17-2022 Resolved: 10-12-2023 04-25-2023 Chronic Asthma (20 sources) Asthma; Translations: [Unspecified asthma, uncomplicated] Onset: 11-12-2021 Chronic Chronic obstructive pulmonary disease and bronchiectasis (8 sources) Bronchitis; Translations: [Bronchitis, not specified as acute or chronic] 05-25-2020 Episodic Complications of surgical procedures or medical care (4 sources) History of subtotal thyroidectomy; Translations: [Postprocedural hypothyroidism] 11-09-2023 Chronic Deficiency and other anemia (1 source) Anemia; Translations: [Anemia, unspecified] Onset: 08-03-2023 Episodic Diseases of white blood cells (20 sources) Leukocytosis; Translations: [White blood cell count abnormal] Onset: 07-17-2022 01-24-2023 Chronic Disorders of lipid metabolism (20 sources) Mixed hyperlipidemia; Translations: [Mixed hyperlipidemia] Onset: 11-12-2021 Chronic E Codes: Natural/environment (1 source) Other and unspecified overexertion or strenuous movements or postures, initial encounter; Translations: [OTH AND UNS OVREXRT/STRN MVMT/POS INT] Onset: 06-30-2022 Episodic Female infertility (6 sources) 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 anovulation; Translations: [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 anovulation] Onset: 07-17-2022 07-17-2022 Chronic Mood disorders (20 sources) Bipolar disorder; Translations: [Bipolar disorder, unspecified] Onset: 11-12-2021 Resolved: 09-15-2023 Chronic Nutritional deficiencies (6 sources) Vitamin D deficiency; Translations: [Vitamin D deficiency, unspecified] Onset: 07-17-2022 07-17-2022 Chronic Other aftercare (1 source) Other shelter (current) drug therapy; Translations: [OTH [facility] CURRENT DRUG THERAPY] Onset: 06-30-2022 Episodic Other endocrine disorders (6 sources) Polycystic ovary syndrome; Translations: [Polycystic ovarian syndrome] Onset: 07-17-2022 07-17-2022 Chronic Other endocrine disorders (2 sources) Hyperparathyroidism; Translations: [Other hyperparathyroidism] 11-09-2023 Chronic Other gastrointestinal disorders (6 sources) Irritable bowel syndrome with diarrhea; Translations: [Irritable bowel syndrome with diarrhea] Onset: 07-17-2022 07-17-2022 Chronic Other gastrointestinal disorders (5 sources) History of bariatric surgical procedure; Translations: [Bariatric surgery status] Onset: 11-12-2021 Episodic Other gastrointestinal disorders (2 sources) Swollen abdomen; Translations: [Abdominal distension (gaseous)] Onset: 09-01-2023 Episodic Other liver diseases (17 sources) Steatosis of liver; Translations: [Fatty (change of) liver, not elsewhere classified] Onset: 11-12-2021 Chronic Other lower respiratory disease (4 sources) Hypoxemia; Translations: [Hypoxemia] 11-19-2021 Episodic Other nervous system disorders (15 sources) Chronic pain; Translations: [Other chronic pain] Onset: 10-12-2023 Resolved: 10-12-2023 04-25-2023 Chronic Other nervous system disorders (3 sources) Other chronic pain; Translations: [Chronic pain G89.29] Onset: 11-13-2020 Resolved: 01-29-2021 Chronic Other non-traumatic joint disorders (3 sources) Pain in right knee; Translations: [PAIN IN RIGHT KNEE] Onset: 06-28-2022 Episodic Other nutritional; endocrine; and metabolic disorders (12 sources) Body mass index 40+ - severely obese; Translations: [Body mass index (BMI) 45.0-49.9, adult] Onset: 07-17-2022 07-17-2022 Chronic Other nutritional; endocrine; and metabolic disorders (6 sources) Insulin resistance; Translations: [Metabolic syndrome] Chronic Other nutritional; endocrine; and metabolic disorders (7 sources) Obesity; Translations: [Obesity, unspecified] Onset: 09-21-2023 Chronic Other nutritional; endocrine; and metabolic disorders (5 sources) Body mass index 30+ - obesity; Translations: [Obesity, unspecified] Onset: 11-12-2021 Chronic Other nutritional; endocrine; and metabolic disorders (4 sources) Obesity caused by energy imbalance 09-21-2023 Chronic Other nutritional; endocrine; and metabolic disorders (16 sources) Weight gain; Translations: [Abnormal weight gain] Onset: 09-17-2023 10-18-2022 Episodic Other nutritional; endocrine; and metabolic disorders (1 source) Abnormal weight loss; Translations: [Abnormal weight loss] Onset: 09-01-2023 Episodic Other upper respiratory disease (6 sources) Seasonal allergic rhinitis; Translations: [Other seasonal allergic rhinitis] Onset: 07-17-2022 07-17-2022 Chronic Residual codes; unclassified (1 source) Past history of procedure; Translations: [Other specified postprocedural states] Onset: 09-21-2023 Episodic Respiratory failure; insufficiency; arrest (adult) (13 sources) Acute respiratory failure; Translations: [Acute respiratory failure with hypoxia] 11-18-2021 Episodic Spondylosis; intervertebral disc disorders; other back problems (20 sources) Degeneration of lumbar intervertebral disc; Translations: [Other intervertebral disc degeneration, lumbar region] Onset: 11-13-2020 Resolved: 10-12-2023 Chronic Sprains and strains (1 source) Strain of other muscle(s) and tendon(s) at lower leg level, right leg, initial encounter; Translations: [STRAIN OTH MSC TEND LOW RT LEG INIT] Onset: 06-30-2022 Episodic Thyroid disorders (20 sources) Thyroid nodule; Translations: [Nontoxic single thyroid nodule] Onset: 07-17-2022 06-07-2021 Chronic Thyroid disorders (3 sources) Disorder of thyroid, unspecified; Translations: [Mass of thyroid gland] Onset: 09-26-2023 10-12-2023 Episodic Unclassified (13 sources) Patient encounter status 10-18-2022 Past or Other Problems Problem Classification Problem Date Documented Da te Episodic/Chronic Biliary tract disease (6 sources) Cholelithiasis without obstruction; Translations: [Calculus of gallbladder without cholecystitis without obstruction] Onset: 3 07-17-2022 Episodic Blindness and vision defects (15 sources) Diplopia; Translations: [Diplopia] Onset: 4 Resolved: Episodic Complications of surgical procedures or medical care (20 sources) Wound discharge; Translations: [Other complications of procedures, not elsewhere classified, initial encounter] Onset: 3 Resolved: 4 07-02-2021 Episodic Deficiency and other anemia (20 sources) Iron deficiency anemia; Translations: [Other iron deficiency anemias] Onset: 4 08-02-2023 Episodic Diseases of mouth; excluding dental (20 sources) Lesion of salivary gland; Translations: [Disease of salivary gland, unspecified] Onset: 3 Resolved: 4 06-07-2021 Episodic E Codes: Fall (14 sources) Fall; Translations: [Unspecified fall, initial encounter] Onset: 4 Resolved: 4 05-17-2019 Episodic Early or threatened labor (6 sources) Finding of uterine contractions; Translations: [False labor, unspecified] Onset: 9 Resolved: 4 09-15-2023 Episodic Esophageal disorders (10 sources) Gastroesophageal reflux disease; Translations: [Gastro-esophageal reflux disease without esophagitis] Onset: 2 Resolved: 4 11-12-2021 Chronic Fracture of upper limb (14 sources) Fracture of radius AND ulna; Translations: [Unspecified fracture of unspecified forearm, initial encounter for closed fracture] Onset: 4 Resolved: 4 05-17-2019 Episodic Hypertension complicating ; childbirth and the puerperium (6 sources) Hypertension complicating ; Translations: [Unspecified maternal hypertension, third trimester] Onset: 4 Resolved: 4 09-15-2023 Chronic Malaise and fatigue (20 sources) Fatigue; Translations: [Other fatigue] Onset: 3 08-01-2023 Episodic Malposition; malpresentation (6 sources) Breech presentation; Translations: [Maternal care for breech presentation, not applicable or unspecified] Onset: 4 Resolved: 4 09-15-2023 Episodic Mood disorders (6 sources) Mood disorders Onset: 4 03-17-2023 Other acquired deformities (6 sources) Spondylolisthesis; Translations: [Spondylolisthesis, site unspecified] Onset: 3 07-17-2022 Episodic Other acquired deformities (6 sources) Lumbar spondylolisthesis; Translations: [Spondylolisthesis, lumbar region] Onset: 3 07-17-2022 Episodic Other complications of (6 sources) Complication of , childbirth and/or the puerperium; Translations: [Other specified related conditions, unspecified trimester] Onset: 4 Resolved: 4 09-15-2023 Episodic Other complications of (6 sources) Urinary tract infection in ; Translations: [Unspecified infection of urinary tract in , third trimester] Onset: 4 Resolved: 4 09-15-2023 Episodic Other ear and sense organ disorders (14 sources) Otitis externa; Translations: [Unspecified otitis externa, unspecified ear] Onset: 4 Resolved: 4 04-11-2021 Chronic Other eye disorders (13 sources) Monocular esotropia, left eye; Translations: [Monocular esotropia] Onset: 2 Resolved: 4 Episodic Other eye disorders (20 sources) Abducens nerve palsy; Translations: [Sixth [abducent] nerve palsy, left eye] Onset: 4 Resolved: 4 06-07-2021 Episodic Other female genital disorders (6 sources) Vaginal bleeding; Translations: [Abnormal uterine and vaginal bleeding, unspecified] Onset: 4 Resolved: 4 09-15-2023 Chronic Other female genital disorders (9 sources) History of gynecological disorder; Translations: [Personal history of other diseases of the female genital tract] Onset: 4 Resolved: 4 04-25-2023 Episodic Other gastrointestinal disorders (14 sources) Abdominal bloating; Translations: [Abdominal distension (gaseous)] Onset: 4 09-01-2023 Episodic Other gastrointestinal disorders (14 sources) Dysphagia; Translations: [Dysphagia, unspecified] Onset: 4 08-29-2023 Episodic Other liver diseases (18 sources) Increased creatine kinase level; Translations: [Abnormal levels of other serum enzymes] Onset: 4 01-24-2023 Episodic Other lower respiratory disease (13 sources) Hypoxemia; Translations: [Hypoxemia] Onset: 4 Resolved: 4 11-18-2021 Episodic Other lower respiratory disease (10 sources) Viral respiratory infection; Translations: [Other specified respiratory disorders] Onset: 4 Resolved: 4 02-08-2022 Episodic Other lower respiratory disease (18 sources) Dyspnea; Translations: [Shortness of breath] Onset: 4 Episodic Other nervous system disorders (14 sources) Postoperative pain ; Translations: [Other acute postprocedural pain] Onset: 4 Resolved: 4 07-04-2021 Episodic Other nutritional; endocrine; and metabolic disorders (16 sources) Metabolic syndrome X; Translations: [Metabolic syndrome] Onset: 2 Resolved: 4 11-12-2021 Chronic Other nutritional; endocrine; and metabolic disorders (14 sources) Morbid obesity; Translations: [Morbid (severe) obesity due to excess calories] Onset: 4 Resolved: 4 06-07-2021 Chronic Other nutritional; endocrine; and metabolic disorders (14 sources) Weight loss; Translations: [Abnormal weight loss] Onset: 4 09-01-2023 Episodic Other nutritional; endocrine; and metabolic disorders (3 sources) Weight increased; Translations: [Abnormal weight gain] Onset: 4 09-17-2023 Episodic Other and delivery including normal (18 sources) Delivery normal; Translations: [Encounter for full-term uncomplicated delivery] Onset: 4 Resolved: 4 09-15-2023 Episodic Other screening for suspected conditions (not mental disorders or infectious disease) (20 sources) Increased glucose level; Translations: [Other abnormal glucose] Onset: 3 01-24-2023 Episodic Polyhydramnios and other problems of amniotic cavity (6 sources) Premature rupture of membranes; Translations: [Premature rupture of membranes, unspecified as to length of time between rupture and onset of labor, unspecified weeks of gestation] Onset: 9 Resolved: 4 09-15-2023 Episodic Residual codes; unclassified (20 sources) Obstructive sleep apnea syndrome; Translations: [Obstructive sleep apnea (adult) (pediatric)] Onset: 2 Resolved: 4 Chronic Skin and subcutaneous tissue infections (6 sources) Cellulitis of face; Translations: [Cellulitis of face] Onset: 3 07-17-2022 Episodic Spondylosis; intervertebral disc disorders; other back problems (20 sources) Radiculopathy, lumbar region; Translations: [Sciatica] Onset: 1 Resolved: 4 Episodic Urinary tract infections (14 sources) Urinary tract infectious disease; Translations: [Urinary tract infection, site not specified] Onset: 4 Resolved: 4 05-25-2020 Episodic Viral infection (16 sources) Viral disease; Translations: [Viral infection, unspecified] Onset: 4 Resolved: 4 05-25-2020 Episodic Results Test Name Value Interpretation Reference Range Facility Ambulatory Visit Summaryon 1 Ambulatory Visit Summary Ambulatory Visi t Summary MORRO MALONEY :1985 Visit Date:12/05/2023 Ambulatory Visit Instructions Your Diagnosis Encounter for weight management BMI 40.0-44.9, adult Non-smoker Obesity due to excess calories Your Care Team Attending Physician - Cleo Hassan Primary Care Physician - Cleo Hassan This Is Your Medications List albuterol (Ventolin HFA 90 mcg/inh Aerosol-Adpt) docusate (Colace) eszopiclone (eszopiclone 3 mg Tab) folic acid (folic acid 1 mg Tab) iron sucrose (Venofer 20 mg/mL Soln-IV) lamotrigine (lamotrigine 200 mg Tab) sertraline (sertraline 100 mg Tab) Procedures Performed History of partial thyroidectomy (09/22/2023), Colonoscopy (09/05/2023), Esophagogastroduodenosco py (09/05/2023), Appendectomy, delivery, Cholecystectomy, Gastric sleeve, Parotidectomy. Discharge Vitals Temperature (Tympanic) 36.9 ?C Heart Rate (Peripheral) 97 Respiratory Rate 16 Blood Pressure 132/80 Height 161 cm Height 63 in Weight 111.3 kg Weight 244.86 lb BMI 42.94 Medications What How Much When Why Instructions Unchanged albuterol (Ventolin HFA 90 mcg/ inh Aerosol-Adpt) 2 Puffs Inhalation Every 4 hours as needed for for wheezing Unchanged docusate (Colace) 200 Milligram By Mouth Every day Unchanged eszopiclone (eszopiclone 3 mg Tab) 1 Tablets By Mouth Once a day (at bedtime) as needed for for insomnia Unchanged folic acid (folic acid 1 mg Tab) 1 Tablets By Mouth Every day Iron deficiency anemia Unchanged iron sucrose (Venofer 20 mg/ mL Soln-IV) See instructions Iron deficiency anemia 500 mg IV every 2 weeks x 2 doses Unchanged lamotrigine (lamotrigine 200 mg Tab) 1 Tablets By Mouth Every day Unchanged sertraline (sertraline 100 mg Tab) 1 Tablets By Mouth Every day Allergies No Known Allergies Problems Ongoing - Any problem that you are currently receiving treatment for. Asthma Bloating Cyst of thyroid Difficulty swallowing Elevated creatine kinase Elevated glucose Elevated WBCs Encounter for weight management Enlarged thyroid gland Fatigue Iron deficiency anemia Low back pain Obesity due to excess calories Shortness of breath Spondylosis Thyroid nodule Weight gain Weight loss Wellness examination Patient Survey You may receive a survey via text or e-mail asking about your office visit. Please share your experience with us by completing your survey. We appreciate your feedback and thank you for choosing us for your care. Normal [facility] Family Medicine Office/Clini c Noteon 12-05-2023 Family Medicine Office/Clinic Note Family Medicine Office/Clinic Note Chief Complaint Weight Management HPI Staff Pt presents today to discuss weight management. S/P Gastric Sleeve 4yrs ago. Has plateaued. Is not interested in injectables due to cost. History of Present Illness pt presents today to discuss weight management Review of Systems PHQ Score Initial Depression Screen Score: 0 SCORE Physical Exam Vitals & Measurements T: 36.9 ?C(Tympanic) HR: 97(Peripheral) RR: 16 BP: 132/80 SpO2: 61% HT: 63 in HT: 161 cm WT: 111.3 kg WT: 244.86 lb BMI: 42.94 General: alert, no acute distress ENMT: oral mucosa moist, no pharyngeal erythema or exudate Cardiovascular: regular rate and rhythm, normal peripheral perfusion Respiratory: Lungs CTA, respirations non labored Extremities: no deformity, no trauma Neurological: oriented x 4, LOC appropriate for age, CN II-XII intact, motor strength equal & normal bilaterally, speech normal Assessment/Plan 1. Encounter for weight management (Z76.89: Persons encountering health services in other specified circumstances) pt would like to try adipex and topamax. medication agreement signed. all questions answered. RTC 4 weeks Ordered: phentermine, 37.5 mg = 1 tab(s), Oral, Daily, # 30 tab(s), Refills(s) 0, Pharmacy: [facility]/pharmacy #[id number], 161, cm, 12/05/23 14:58:00 EDT, Height/Length Dosing, 111.3, kg, 12/05/23 14:58:00 EDT, Weight Dosing topiramate, 25 mg = 1 tab(s), Oral, Daily, # 30 tab(s), Refills(s) 2, Pharmacy: [facility]/pharmacy #[id number], 161, cm, 12/05/23 14:58:00 EDT, Height/Length Dosing, 111.3, kg, 12/05/23 14:58:00 EDT, Weight Dosing 2. 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 BMI 40.0-44.9, adult (Z68.41: Body mass index [BMI] 40.0-44.9, adult) pt would like to try adipex and topamax Ordered: phentermine, 37.5 mg = 1 tab(s), Oral, Daily, # 30 tab(s), Refills(s) 0, [id number], cm, 12/05/23 14:58:00 EDT, Height/Length Dosing, 111.3, kg, 12/05/23 14:58:00 EDT, Weight Dosing topiramate, 25 mg = 1 tab(s), Oral, Daily, # 30 tab(s), Refills(s) 2, [id number] 161, cm, 12/05/23 14:58:00 EDT, Height/Length Dosing, 111.3, kg, 12/05/23 14:58:00 EDT, Weight Dosing 4. Obesity due to excess calories (E66.09: Other obesity due to excess calories) see above Ordered: phentermine, 37.5 mg = 1 tab(s), Oral, Daily, # 30 tab(s), Refills(s) 0, [id number] 161, cm, 12/05/23 14:58:00 EDT, Height/Length Dosing, 111.3, kg, 12/05/23 14:58:00 EDT, Weight Dosing topiramate, 25 mg = 1 tab(s), Oral, Daily, # 30 tab(s), Refills(s) 2, [id number] 161, cm, 12/05/23 14:58:00 EDT, Height/Length Dosing, 111.3, kg, 12/05/23 14:58:00 EDT, Weight Dosing 5. Non-smoker (Z78.9: Other specified health status) continue not smoking Ordered: phentermine, 37.5 mg = 1 tab(s), Oral, Daily, # 30 tab(s), Refills(s) 0, [id number] 161, cm, 12/05/23 14:58:00 EDT, Height/Length Dosing, 111.3, kg, 12/05/23 14:58:00 EDT, Weight Dosing topiramate, 25 mg = 1 tab(s), Oral, Daily, # 30 tab(s), Refills(s) 2, [id number] 161, cm, 12/05/23 14:58:00 EDT, Height/Length Dosing, 111.3, kg, 12/05/23 14:58:00 EDT, Weight Dosing Follow-up No qualifying data available Problem List/Past Medical History Ongoing Asthma Bloating Cyst of thyroid Difficulty swallowing Elevated creatine kinase Elevated glucose Elevated WBCs Encounter for weight management Enlarged thyroid gland Fatigue History of thyroidectomy Iron deficiency anemia Low back pain Obesity due to excess calories Shortness of breath Spondylosis Thyroid nodule Weight gain Weight loss Wellness examination Historical No qualifying data Procedure/Surgical History History of partial thyroidectomy (09/22/2023), Colonoscopy (09/05/2023), Esophagogastroduodenosco py (09/05/2023), Appendectomy, delivery, Cholecystectomy, Gastric sleeve, Parotidectomy. Medications Colace, 200 mg, Oral, Daily eszopiclone 3 mg Tab, 3 mg= 1 tab(s), Oral, Once a day (at bedtime), PRN folic acid 1 mg Tab, 1 mg= 1 tab(s), Oral, Daily, 4 refills lamotrigine 200 mg Tab, 200 mg= 1 tab(s), Oral, Daily phentermine 37.5 mg Tab, 37.5 mg= 1 tab(s), Oral, Daily sertraline 100 mg Tab, 100 mg= 1 tab(s), Oral, Daily topiramate 25 mg Tab, 25 mg= 1 tab(s), Oral, Daily, 2 refills Venofer 20 mg/mL Soln-IV, See Instructions Ventolin HFA 90 mcg/inh Aerosol-Adpt, 2 puff(s), Inhalation, q4hr, PRN, 11 refills Allergies No Known Allergies Social History Alcohol - Denies Alcohol Use, 08/15/2023 Substance Abuse - Denies Substance Abuse, 08/15/2023 Tobacco Never (less than 100 in lifetime) Tobacco Use:. Never Smokeless Tobacco Use:. Cigarettes, Household tobacco concerns: No., 12/05/2023 Family History Ulcerative colitis: Father and Grandparent. Immunizations Vaccine Date Status SARS-CoV-2 (COVID-19) mRNA BNT-16 (more content not included)... Normal [facility] Comment on above: Result Comment: Elec tronically Signed By: Mayra ALVAREZ, Cleo Rebolledo\.br\Date and Time Signed: 12/05/23 15:17 EDT CBC w/ Auto Diffon 4 Basophils/100 WBC (Bld) 0.6 % Normal 0.0-2.0 [facility] Comment on above: Performed By: #### 2 [id number] #### [facility] [address] [place] [address] Basophils/Leukocytes Auto (Bld) [Pure # fraction] 0.1 E9/L Normal 0.0-0.2 [facility] Comment on above: Performed By: #### 2 [id number] #### [facility] [address] [place] [address] Eosinophils (Bld) [#/Vol] 0.4 E9/L Normal 0.0-0.5 [facility] Comment on above: Performed By: #### 2 [id number] #### [facility] [address] [place] [address] Eosinophils/100 WBC (Bld) 3.8 % Normal 0.0-8.0 [facility] Comment on above: Performed By: #### 2 [id number] #### [facility] [address] [place] [address] Erythrocyte distribution width (RBC) [Ratio] 22.4 % High 10.9-14.2 [facility] Comment on above: Performed By: #### 2 [id number] #### [facility] [address] [place] [address] Hematocrit (Bld) [Volume fraction] 35.4 % Normal 34.0-46.0 [facility] Comment on above: Performed By: #### 2 [id number] #### [facility] [address] [place] [address] Hemoglobin (Bld) [Mass/Vol] 11.3 g/dL Low 12.0-16.0 [facility] Comment on above: Performed By: #### 2 [id number] #### [facility] [address] [place] [address] Hypochromia Auto Ql (Bld) PRESENT Invalid Interpretation Code [facility] Comment on above: Performed By: #### 2 [id number] #### [facility] [address] [place] [address] Lymphocytes (Bld) [#/Vol] 2.5 E9/L Normal 1.0-4.0 [facility] Comment on above: Performed By: #### 2 [id number] #### [facility] [address] [place] [address] Lymphocytes/100 WBC (Bld) 26.9 % Normal 14.0-50.0 [facility] Comment on above: Performed By: #### 2 [id number] #### [facility] [address] [place] [address] MCH (RBC) [Entitic mass] 23.6 pg Low 27.0-34.0 [facility] Comment on above: Performed By: #### 2 [id number] #### [facility] [address] [place] [address] MCHC (RBC) [Mass/Vol] 31.9 g/dL Normal 31.4-36.0 [facility] Comment on above: Performed By: #### 2 [id number] #### [facility] [address] [place] [address] MCV (RBC) [Entitic vol] 73.9 fL Low 80.0-100.0 [facility] Comment on above: Performed By: #### 2 [id number] #### [facility] [address] [place] [address] Microcytes Ql (Bld) PRESENT Invalid Interpretation Code [facility] Comment on above: Performed By: #### 2 [id number] #### [facility] [address] [place] [address] Monocytes (Bld) [#/Vol] 0.4 E9/L Normal 0.2-1.0 [facility] Comment on above: Performed By: #### 2 [id number] #### [facility] [address] [place] [address] Neutrophils (Bld) [#/Vol] 5.9 E9/L Normal 2.0-7.5 [facility] Comment on above: Performed By: #### 2 [id number] #### [facility] [address] [place] [address] Neutrophils/100 WBC (Bld) 64.1 % Normal 36.0-75.0 [facility] Comment on above: Performed By: #### 2 [id number] #### [facility] [address] [place] [address] Ovalocytes LM Ql (Bld) PRESENT Invalid Interpretation Code [facility] Comment on above: Performed By: #### 2 [id number] #### [facility] [address] [place] [address] Platelet mean volume (Bld) [Entitic vol] 7.4 fL Normal 6.4-10.8 [facility] Comment on above: Performed By: #### 2 [id number] #### [facility] [address] [place] [address] Platelets (Bld) [#/Vol] 331.0 E9/L Normal 150.0-500.0 [facility] Comment on above: Performed By: #### 2 [id number] #### [facility] [address] [place] [address] RBC (Bld) [#/Vol] 4.8 E12/L Normal 4.3-5.9 [facility] Comment on above: Performed By: #### 2 [id number] #### [facility] [address] [place] [address] RBC size Nom (Bld) SEE MORPHOLOGY Invalid Interpretation Code [facility] Comment on above: Performed By: #### 2 [id number] #### [facility] [address] [place] [address] WBC corrected for nucl RBC Auto (Bld) [#/Vol] 9.2 E9/L Normal 4.0-11.0 [facility] Comment on above: Performed By: #### 2 [id number] #### [facility] [address] [place] [address] CHEMISTRYOrdered By: SYSTEM SYSTEM on 10-26-2023 Albumin [Mass/Vol] 4.4 g/dL Normal 3.3 - 5.0 gm/dL Remisol Chem Albumin/Globulin [Mass ratio] 1.4 {ratio} Normal 1.1 - 2.2 Remisol Chem ALP [Catalytic activity/Vol] 95 [iU]/d Normal 21 - 98 Int._Unit/L Remisol Chem ALT No additional P-5'-P [Catalytic activity/Vol] 12 [iU]/d Normal 6 - 46 Int._Unit/L Remisol Chem Anion gap [Moles/Vol] 13 mmol/L Normal 6 - 16 mEq/L Remisol Chem AST [Catalytic activity/Vol] 17 [iU]/d Normal 5 - 43 Int._Unit/L Rem[facility] Chem Bilirubin [Mass/Vol] 0.5 mg/dL Normal 0.0 - 1 .1 mg/dL Remisol Chem Calcium [Mass/Vol] 9.3 mg/dL Normal 8.9 - 11. 1 mg/dL [facility] Chloride [Moles/Vol] 101 mmol/L Normal 101 - 1 11 mmol/L [facility] CO2 [Moles/Vol] 25 mmol/L Normal 21 - 31 mmol/L [facility] Creatinine [Mass/Vol] 1.0 mg/dL Normal 0.5 - 1.3 mg/dL [facility] eGFR 73 mL/min/1.73 m2 Normal >=59mL/min / 1.73 m2 [facility] Ferritin [Mass/Vol] 9 ng/mL Low 11 - 307 ng/mL [facility] Folate [Mass/Vol] 13.8 ng/mL Normal >=6.7ng/mL [facility] Globulin (S) [Mass/Vol] 3.2 g/dL Normal 1.4 - 4.0 gm/dL [facility] Glucose [Mass/Vol] 121 mg/dL Normal 55 - 199 mg/dL [facility] Iron [Mass/Vol] 35 ug/dL Normal 35 - 153 mcg/dL [facility] Iron binding capacity [Mass/Vol] 367 ug/dL Normal 250 - 400 mcg/dL [facility] Iron saturation [Mass fraction] 10 % Low 20 - 50 % [facility] Potassium [Moles/Vol] 4.0 mmol/L Normal 3.5 - 5.3 mmol/L [facility] Protein [Mass/Vol] 7.6 g/dL Normal 6.0 - 7.8 gm/dL [facility] Sodium [Moles/Vol] 135 mmol/L Normal 135 - 145 mmol/L [facility] Transferrin [Mass/Vol] 262 mg/dL Normal 200 - 370 mg/dL [facility] Urea nitrogen [Mass/Vol] 9 mg/dL Normal 5 - 21 mg/dL [facility] Urea nitrogen/Creatinine [Mass ratio] 9 mg/mg Low 10 - 20 [facility] CMPon 10-26-2023 Albumin [Mass/Vol] 4.4 g/dL Normal 3.3-5.0 [facility] Comment on above: Performed By: #### 2 [id number] #### [facility] [address] [place] [address] Albumin/Globulin (S) [Mass conc ratio] 1.4 Normal 1.1-2.2 [facility] Comment on above: Performed By: #### 2 [id number] #### [facility] [address] [place] [address] ALP [Catalytic activity/Vol] 95 Int._Unit/L Normal 21-98 [facility] Comment on above: Performed By: #### 2 [id number] #### [facility] [address] [place] [address] ALT No additional P-5'-P [Catalytic activity/Vol] 12 Int._Unit/L Normal 6-46 [facility] Comment on above: Performed By: #### 2 [id number] #### [facility] [address] [place] [address] Anion gap [Moles/Vol] 13 mmol/L Normal 6-[address] [facility] Comment on above: Performed By: #### 2 [id number] #### [facility] [address] [place] [address] AST [Catalytic activity/Vol] 17 Int._Unit/L Normal 5-43 [facility] Comment on above: Performed By: #### 2 [id number] #### [facility] [address] [place] [address] Bilirubin [Mass/Vol] 0.5 mg/dL Normal 0.0-1.1 [facility] Comment on above: Performed By: #### 2 [id number] #### [facility] [address] [place] [address] Calcium [Mass/Vol] 9.3 mg/dL Normal 8.9-11.1 [facility] Comment on above: Performed By: #### 2 [id number] #### [facility] [address] [place] [address] Chloride [Moles/Vol] 101 mmol/L Normal 101-111 [facility] Comment on above: Performed By: #### 2 [id number] #### [facility] [address] [place] [address] CO2 [Moles/Vol] 25 mmol/L Normal 21-31 [facility] Comment on above: Performed By: #### 2 [id number] #### [facility] [address] [place] [address] Creatinine [Mass/Vol] 1.0 mg/dL Normal 0.5-1.[address] [facility] Comment on above: Performed By: #### 2 [id number] #### [facility] [address] [place] [address] Globulin (S) [Mass/Vol] 3.2 g/dL Normal 1.4-4.0 [facility] Comment on above: Performed By: #### 2 [id number] #### [facility] [address] [place], [place] Glucose [Mass/Vol] 121 mg/dL Normal 55-199 [facility] Comment on above: Performed By: #### 2 [id number] #### [facility] [address] [place] [address] Potassium [Moles/Vol] 4.0 mmol/L Normal 3.5-5.[address] [facility] Comment on above: Performed By: #### 2 [id number] #### [facility] [address] [place] [address] Protein [Mass/Vol] 7.6 g/dL Normal 6.0-7.8 [facility] Comment on above: Performed By: #### 2 [id number] #### [facility] [address] [place] [address] Sodium [Moles/Vol] 135 mmol/L Normal 135-145 [facility] Comment on above: Performed By: #### 2 [id number] #### [facility] [address] [place] [address] Urea nitrogen [Mass/Vol] 9 mg/dL Normal 5-21 [facility] Comment on above: Performed By: #### 2 [id number] #### [facility] [address] [place] [address] Urea nitrogen/Creatinine [Mass ratio] 9 No Units Low 10-20 [facility] Comment on above: Performed By: #### 2 [id number] #### [facility] [address] [place] [address] Ferritinon 10-26-2023 Ferritin [Mass/Vol] 9 ng/mL Low 11-307 [facility] Comment on above: Performed By: #### 2 [id number] #### [facility] [address] [place] [address] Folateon 10-26-2023 Folate [Mass/Vol] 13.8 ng/mL Normal >=6.7 [facility] Comment on above: Performed By: #### 2 [id number] #### [facility] [address] [place] [address] HEMATOLOGYOrdered By: SYSTEM SYSTEM on 10-26-2023 Basophils/100 WBC (Bld) 0.6 % Normal 0.0 - 2.0 % [facility] Basophils/Leukocytes Auto (Bld) [Pure # fraction] 0.1 E9/L Normal 0.0 - 0.2 E9/L [facility] Eosinophils (Bld) [#/Vol] 0.4 E9/L Normal 0.0 - 0.5 E9/L [facility] Eosinophils/100 WBC (Bld) 3.8 % Normal 0.0 - 8.0 % [facility] Erythrocyte distribution width (RBC) [Ratio] 22.4 % High 10.9 - 14.2 % [facility] Hematocrit (Bld) [Volume fraction] 35.4 % Normal 34.0 - 46.0 % [facility] Hemoglobin (Bld) [Mass/Vol] 11.3 g/dL Low 12.0 - 16.0 gm/dL [facility] Hypochromia Auto Ql (Bld) PRESENT *NA* (10/26/23 2:48 PM) Invalid Interpretation Code [facility] Lymphocytes (Bld) [#/Vol] 2.5 E9/L Normal 1.0 - 4.0 E9/L [facility] Lymphocytes/100 WBC (Bld) 26.9 % Normal 14.0 - 50.0 % [facility] MCH (RBC) [Entitic mass] 23.6 pg Low 27. 0 - 34.0 pg [facility] MCHC (RBC) [Mass/Vol] 31.9 g/dL Normal 31.4 - 36.0 gm/dL [facility] MCV (RBC) [Entitic vol] 73.9 fL Low 80.0 - 100.0 fL [facility] Microcytes Ql (Bld) PRESENT *NA* (10/26/23 2:48 PM) Invalid Interpretation Code [facility] Monocytes (Bld) [#/Vol] 0.4 E9/L Normal 0.2 - 1.0 E9/L [facility] Monocytes/100 WBC (Bld) 4.6 % Normal 4.0 - 14.0 % [facility] Neutrophils (Bld) [#/Vol] 5.9 E9/L Normal 2.0 - 7.5 E9/L [facility] Neutrophils/100 WBC (Bld) 64.1 % Normal 36.0 - 75.0 % [facility] Ovalocytes LM Ql (Bld) PRESENT *NA* (10/26/23 2:48 PM) Invalid Interpretation Code [facility] Platelet mean volume (Bld) [Entitic vol] 7.4 fL Normal 6.4 - 10.8 fL [facility] Platelets (Bld) [#/Vol] 331.0 E9/L Normal 150. 0 - 500.0 E9/L [facility] RBC (Bld) [#/Vol] 4.8 E12/L Normal 4.3 - 5.9 E12/L [facility] RBC size Nom (Bld) SEE MORPHOLOGY *NA* (10/26/23 2:48 PM) Invalid Interpretation Code [facility] WBC corrected for nucl RBC Auto (Bld) [#/Vol] 9.2 E9/L Normal 4.0 - 11.0 E9/L [facility] Ironon 10-26-2023 Iron [Mass/Vol] 35 microgram/dL Normal 35-153 [facility] Comment on above: Performed By: #### 2 [id number] #### [facility] [address] [place] [address] Iron Saturationon 10-26-2023 Iron binding capacity [Mass/Vol] 367 microgram/dL Normal 250-400 [facility] Comment on above: Performed By: #### 2 [id number] #### [facility] [address] [place] [address] Iron saturation [Mass fraction] 10 % Low 20-50 [facility] Comment on above: Performed By: #### 2 [id number] #### [facility] [address] [place] [address] Transferrinon 10-26-2023 Transferrin [Mass/Vol] 262 mg/dL Normal 200-370 [facility] Comment on above: Performed By: #### 2 [id number] #### [facility] [address] [place] [address] eGFRon 10-26-2023 eGFR 73 mL/min/1.73 m2 Normal >=59 [facility] Comment on above: Order Comment: Order added by Discern Expert. Performed By: #### 1 [id number] #### [facility] [address] [place] [address] Calcium [Mass/volume] in Ser um or PlasmaOrdered By: Brandon Juares on 10-25-2023 Calcium [Mass/Vol] 9.0 mg/dL Normal 8.6-10.3 [facility] Comment on above: Performed By: #### T SH3, [id number], [place], T4T, T3T #### [address] Parathyrin.intact [Mass/volu me] in Serum or PlasmaOrdered By: Brandon Juares on 10-25-2023 Parathyrin.intact [Mass/Vol] 97.1 pg/mL High [facility] Parathyroid Hormone Intacton 10-25-2023 Parathyroid Hormone Intact 97.1 pg/mL High [facility] Comment on above: Result Comment: PERF ORMED BY: [place] [address] PATHOLOGIST [employer] APPRAISER KIRSTEN CHOW M.D. Performed By: #### P TH #### [address] Thyrotropin [Units/volume] i n Serum or PlasmaOrdered By: Brandon Juares on 10-25-2023 TSH Qn 4.38 m[IU]/L Normal 0.45-5.33 [facility] Comment on above: Performed By: #### T SH3, [id number], [place], T4T, T3T #### [address] Thyroxine (T4) [Mass/volume] in Serum or PlasmaOrdered By: Brandon Juares on 10-25-2023 T4 [Mass/Vol] 7.13 ug/dL Normal 5.39-11.82 [facility] Comment on above: Performed By: #### T SH3, [id number], [place], T4T, T3T #### [address] Triiodothyronine (T3) Totalo n 10-25-2023 Triiodothyronine (T3) Total 0.58 ng/mL Low 0.87-1.78 [facility] Comment on above: Performed By: #### T SH3, [id number], [place], T4T, T3T #### [address] Vitamin D 25 Hydroxy Totalon 10-25-2023 Vitamin D 25 Hydroxy Total 35.1 ng/mL Normal 30-100 [facility] Comment on above: Result Comment: ROBERT MIN D STATUS 25([place])VITAMIN D RANGE (ng/mL) Deficient <20 Insufficient 20 to <30 Sufficient 30 to 100 Reference: Joby Galicia, Olesya DOWLING, et al. Evaluation,treatment, and prevention of vitamin D deficiency; an Endocrine Society clinical practice guideline. JCEM. 2010; 96(7):1911-30. PERFORMED BY: [place] [address] PATHOLOGIST [employer] APPRAISER KIRSTEN CHOW M.D. Performed By: #### T SH3, [id number], [place], T4T, T3T #### [address] Vitamin D+Metabolites [Mass/ volume] in Serum or PlasmaOrdered By: Brandon Juares on 10-25-2023 Vitamin D+Metabolites [Mass/Vol] 35.1 ng/mL 30-100 [facility] Comment on above: VITAMIN D STATUS 25( [place])VITAMIN D RANGE (ng/mL) Deficient <20 Insufficient 20 to <30Sufficient 30 to 100Reference: Joby Galicia, Olesya DOWLING, et al. Evaluation,treatment, and prevention of vitamin D deficiency; an Endocrine Society clinical practice guideline. JCEM. 2010; 96(7):1911-30. SURGICAL PATHOLOGY REFERENCE LAB CONSULTon 10-10-2023 CASE REPORT Normal [facility] Comment on above: Order Comment: Speci men Type: FORMALIN-FIXED PARAFFIN-EMBEDDED TISSUE SPECIMEN Ordering Facility: [facility] Address: [address] [place] [phone] Result Comment: Surg ical Pathology Report Case: [id number] Authorizing Provider: Nilesh Heck, Collected: 10/10/2023 10:43 PM Ordering Location: [facility] Received: 10/10/2023 10:43 PM [facility] Pathologist: Rachel Pereyra MD Specimen: Slide(s), 6 SLIDES [id number] Performed By: #### L [id number] #### [facility] CLIA [id number] [address] [place] [address] OF [facility] CLINICAL HISTORY CONSULT REQUESTED Normal [facility] Comment on above: Order Comment: Speci men Type: FORMALIN-FIXED PARAFFIN-EMBEDDED TISSUE SPECIMEN Ordering Facility: [facility] Address: [address] [place] [address] Performed By: #### L [id number] #### [facility] CLIA [id number] [address] [place] [address] DIAGNOSIS COMMENT Thank you for maymarcos kimberly this case. We would classify the 1.9 cm nodule with variably sized thyroid follicles within the spectrum of thyroid follicular nodular disease. No nuclear changes of papillary thyroid carcinoma is appreciated. Select slides were reviewed by my colleague, Dr. Tirso Mack and he agrees with the interpretation. [facility] Comment on above: Order Comment: Speci men Type: FORMALIN-FIXED PARAFFIN-EMBEDDED TISSUE SPECIMEN Ordering Facility: [facility] Address: [address] [place] [address] Performed By: #### L [id number] #### [facility] CLIA [id number] [address] [place] [address] FINAL DIAGNOSIS Normal [facility] Comment on above: Order Comment: Speci men Type: FORMALIN-FIXED PARAFFIN-EMBEDDED TISSUE SPECIMEN Ordering Facility: [facility] Address: [address] [place], [place] [phone] Result Comment: A. 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 - Intrathyroidal parathyroid gland tissue, 0.1 cm. Performed By: #### L [id number] #### [facility] CLIA [id number] [address] [place] [address] OF [facility] FINAL PERFORMING LAB Normal [facility] Comment on above: Order Comment: Speci men Type: FORMALIN-FIXED PARAFFIN-EMBEDDED TISSUE SPECIMEN Ordering Facility: [facility] Address: [address] [place] [phone] Result Comment: Diag nostic interpretation performed at [facility], [address] [place] [address] CLIA# [id number] Senior Bioinformatics Scientist: Asael Clarke M.D. Performed By: #### L [id number] #### [facility] CLIA [id number] [address] [place] [address] [id number] OF [facility] Beto 10-05-2023 L Specimen: [id number] Received: 10/05/23 Status: MOY Castaneda Num: [id number] Spec Type: Surgical Subm Dr: Brandon Juares DO Tissues: A THYROID - Lobe (RIGHT THYROID LOBE AND ISTHM) Procedures: HE/7, Gross/Micro L5 Age/ Patient Sex Location Account Attending Physician Morro Maloney 38/F [place] [id number] Brandon Juares DO SPEC NUM: [id number] RECD: 10/05/23 STATUS: MOY CASTANEDA NUM: [id number] PEGGY: 10/05/23 DR: Brandon Juares DO ENTERED: 10/05/23 [facility] DR: R[facility] SPEC TYPE: Surgical DEPT: S ENTERED BY: [id number] RECV BY: [id number] ORDERED: HE/7, Gross/Micro L5 ORDERED: HE/7, Gross/Micro L5 Supplemental Report Addendum 1 Entered: 10/11/23 This case was sent to [facility] for consultation. 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 Intrathyroidal parathyroid gland tissue, 0.1 cm. Please see attached consultation report from [facility] for diagnostic details. Addendum Signed (signature on file) Nilesh Eckert MD 10/11/23 1547 Pathological Diagnosis Preliminary report Nodule, right thyroid lobe, hemithyroidectomy: Atypical thyroid neoplasm. Pending external consultation. Specimen: [id number] Received: 10/05/23 Status: MOY Castaneda Num: [id number] Spec Type: Surgical Subm Dr: Brandon Juares DO Tissues: A THYROID - Lobe (RIGHT THYROID LOBE AND ISTHM) Procedures: BRISEIAD, Gross/Micro L5 Patient: Morro Maloney [id number] (Continued) Specimen: [id number] Received: 10/05/23 (Continued) Signed (signature on file) Nilesh Eckert MD 10/06/23 1712 Specimen: [id number] Received: 10/05/23 Status: MOY Wilsoncourtney Num: [id number] Spec Type: Surgical Subm Dr: Brandon Juares DO Tissues: A THYROID - Lobe (RIGHT THYROID LOBE AND ISTHM) Procedures: Adri, Gross/Micro L5 Patient: HaiderMorro Sara [id number] (Continued) Specimen: [id number] Received: 10/05/23 (Continued) Clinical Information Thyroid nodule Gross Description Received in formalin labeled with patient's name, date of and right thyroid lobe and isthmus is a 9.1 g, 4.5 cm (SI), 2.6 cm (ML), 1.3 cm (AP) right thyroid lobe and 1.5 x 0.7 x 0.6 cm isthmus. The specimen is covered by a ge-purple, glistening capsular surface with scattered adhesions. The specimen is inked as follows: anterior-green, posterior-yellow and isthmus-yellow. The specimen is serially sectioned from superior to inferior demonstrating a 1.9 x 1.4 x 1.1 cm intact, rubbery cyst within the inferior aspect of the lobe, containing a smooth, white fibrous lining and a 0.7 x 0.5 cm focal area of pale yellow possible calcification. The cyst approaches the posterior inked capsular surface and comes to within 0.1 cm of the inked anterior capsular surface. Additionally there is a 0.7 x 0.5 x 0.4 cm hemorrhagic, cystic nodule which approaches the inked posterior margin and comes within 0.2 cm of the anterior margin. No additional cysts, nodules or calcified areas are present. The remainder of the thyroid parenchyma is red-brown, beefy and unremarkable. Graphic Editor sections are sequentially submitted from superior to inferior in A1?A6 as follows: A1: Normal-appearing parenchyma A2: Hemorrhagic cystic nodule A3-A6: Rubbery cyst (A6-following decalcification) CPT Codes 88433 Specimen: [id number] Received: 10/05/23 Status: MOY Castaneda Num: [id number] Spec Type: Surgical Subm Dr: Brandon Juares DO Tissues: A THYROID - Lobe (RIGHT THYROID LOBE AND ISTHM) Procedures: ABBY/Adri, Gross/Micro L5 Patient: HaiderMorro Sara [id number] (Continued) Signed (signature on file) Nilesh Eckert MD 10/06/23 3304 Normal [facility] Basic Metabolic Panelon GFR/1.73 sq M.predicted MDRD (S/P/Bld) [Vol rate/Area] mL/min/{1.73_m2} Normal [facility] Comment on above: Performed By: #### B SUSANA, TSH3 #### [facility] [address] [place] [address] [place] Calcium [Mass/volume] in Ser um or PlasmaOrdered By: Brandon Juares on 09-26-2023 Calcium [Mass/Vol] 8.9 mg/dL Normal 8.6-10.3 [facility] Comment on above: Performed By: #### B SUSANA, TSH3 #### [facility] [address] [place] [address] [place] Carbon dioxide, total [Moles /volume] in Serum or PlasmaOrdered By: Brandon Juares on 09-26-2023 CO2 [Moles/Vol] 25.8 mmol/L Normal 21.0-31.0 [facility] Comment on above: Performed By: #### B SUSANA, TSH3 #### [facility] [address] [place] [address] [place] Chloride [Moles/volume] in S alice or PlasmaOrdered By: Brandon Juares on 09-26-2023 Chloride [Moles/Vol] 103 mmol/L Normal 98-107 [facility] Comment on above: Performed By: #### B SUSANA, TSH3 #### [address] Creatinine [Mass/volume] in Serum or PlasmaOrdered By: Brandon Juares on 09-26-2023 Creatinine [Mass/Vol] 0.99 mg/dL Normal 0.60-1.20 [facility] Comment on above: Performed By: #### B SUSANA, TSH3 #### [facility] [address] ECG 12 lead ECGon 09-26-2023 ECG 12 lead ECG [facility] [place] [address] [place] [address] Electrocardiograph Report Signed Patient: Morro Maloney MR#: [id number] 8 : 1985 Acct:[id number] Age/Sex: 38 / F ADM Date: 09/26/23 Loc: Room: Type: [facility] Attending Dr: Brandon Juares DO Ordering Provider: Brandon Juares DO Date of Service: 09/26/23/ ECG/ECG 12 lead ECG: see order Copies to: Test Reason : Blood Pressure : */* mmHG Vent. Rate : 62 BPM Atrial Rate : 62 BPM P-R Int : 182 ms QRS Dur : 70 ms QT Int : 378 ms P-R-T Axes : 40 18 37 degrees QTcB Int : 383 ms Normal sinus rhythm Low voltage QRS Borderline ECG Confirmed by Sharon Bagley ([id number]) on 09/27/2023 7:00:34 PM Referred By: Electronically Signed By: Sharon Bagley Transcribed By: MUS Signed By Sharon Bagley DO 4 1900 Normal [facility] Glucose [Mass/volume] in Ser um or PlasmaOrdered By: Brandon Juares on 09-26-2023 Glucose [Mass/Vol] 87 mg/dL Normal 70-100 [facility] Comment on above: ADA recommended refe rence rangeRandom Glucose Reference Range is dependent on time and content of last meal. Glucose of more than 200 mg/dL in a nonstressed, ambulatory subject supports the diagnosis of Diabetes Mellitus. Result Comment: [place] Glucose Reference Range is dependent on time and content of last meal. Glucose of more than 200 mg/dL in a nonstressed, ambulatory subject supports the diagnosis of Diabetes Mellitus. ADA recommended reference range Performed By: #### B SUSANA TSH3 #### [address] No Panel InformationOrdered By: Brandon Juares on 09-26-2023 Estimated GFR (CKD-EPI) > 60.0 mL/Min [facility] Creatinine Clearance (Chem N/A [facility] Parathyrin.intact [Mass/volu me] in Serum or PlasmaOrdered By: Brandon Juares on 09-26-2023 Parathyrin.intact [Mass/Vol] 102.0 pg/mL High [facility] Parathyroid Hormone Intacton 09-26-2023 Parathyroid Hormone Intact 102.0 pg/mL High [facility] Comment on above: Result Comment: PERF ORMED BY: [place] [address] PATHOLOGIST [employer] APPRAISER KIRSTEN CHOW M.D. Performed By: #### P TH #### [address] Potassium [Moles/volume] in Serum or PlasmaOrdered By: Brandon Juares on 09-26-2023 Potassium [Moles/Vol] 4.4 mmol/L Normal 3.5-5.1 [facility] Comment on above: Performed By: #### B SUSANA TSH3 #### [address] Serum or plasma anion gap de terminationOrdered By: Brandon Juares on 09-26-2023 Anion gap [Moles/Vol] 10.6 mmol/L Normal 6.0-15.0 [facility] Comment on above: Performed By: #### B SUSANA, TSH3 #### [address] Sodium [Moles/volume] in Ser um or PlasmaOrdered By: Brandon Juares on 09-26-2023 Sodium [Moles/Vol] 135 mmol/L Low 136-145 [facility] Comment on above: Performed By: #### B SUSANA, TSH3 #### [facility] [address] Thyrotropin [Units/volume] i n Serum or PlasmaOrdered By: Brandon Juares on 09-26-2023 TSH Qn 1.49 m[IU]/L Normal 0.45-5.33 [facility] Comment on above: Result Comment: PERF ORMED BY: [place] [address] PATHOLOGIST [employer] APPRAISER KIRSTEN CHOW M.D. Performed By: #### B SUSANA, TSH3 #### [address] Urea nitrogen [Mass/volume] in Serum or PlasmaOrdered By: Brandon Juares on 09-26-2023 Urea nitrogen [Mass/Vol] 15 mg/dL Normal 7-25 [facility] Comment on above: Performed By: #### B SUSANA, TSH3 #### [address] Gastroenterology Office/Clin ic Noteon 09-21-2023 Gastroenterology Office/Clinic Note Gastroenterology Office/Clinic Note Chief Complaint follow up to egd/colon HPI Staff This is a 38 year old female who presents today for a follow up to EGD and Colonoscopy. Last office visit w/ Dr Mclean History of Present Illness pt with low iron and tired and fatigued s/p 1 iron infusion pt wants to eat ice wants to eat ice short or breath hx of sleeve 6 years ago dad with UC Some weight loss(5 pounds) bad hemorrhoids Gas after eating carbohydrates Assessment/Plan 1. Iron deficiency anemia (D50.9: Iron deficiency anemia, unspecified) 2. Fatigue (R53.83: Other fatigue) 3. Weight loss (R63.4: Abnormal weight loss) 4. Bloating (R14.0: Abdominal distension (gaseous)) 5. History of gastric sleeve Check celiac panel and IgA levels EGD with small bowel biopsies Colonoscopy with TI evaluation Continue iron supplementations Might benefit from capsule endoscopy if the above workup is negative gave handout about low FODMAP diet EGD w/ Dr Mclean 09/05/23 Impression and Plan small hiatal hernia Irregular Z-line Evidence of previous gastric sleeve Gastropathy Colonoscopy w/ Dr Mclean 09/05/23 Impression and Plan internal hemorrhoids Otherwise; normal colon and terminal Recommendations: Repeat colonoscopy:: In 10 years. Final Diagnosis (Verified) A: SMALL BOWEL, DUODENUM, BIOPSY: - Small bowel mucosa with no significant histopathology. - No evidence of celiac disease identified. B: STOMACH, BIOPSY: - Antral-type gastric mucosa with reactive gastropathy and mild chronic inactive gastritis. - No Helicobacter pylori microorganisms identified with immunohistochemical stain. Celiac Panel IgA Quant: 85 Low (09/01/23) t-Transglutaminase Ig (09/01/23) History of Present Illness I have reviewed HPI staff note, most recent labs and imaging, more than 30 minutes spent reviewing the chart, during encounter, placing orders and counseling the patient. pt still with fatigue no other complains Review of Systems All systems reviewed, negative except as mentioned above Physical Exam Vitals & Measurements HR: 74(Peripheral) RR: 16 BP: 118/76 HT: 63 in HT: 161 cm WT: 108 kg WT: 237.6 lb BMI: 41.67 General: alert, no acute distress Respiratory: Lungs CTA, respirations non labored Assessment/Plan 1. Iron deficiency anemia (D50.9: Iron deficiency anemia, unspecified) 2. Bloating (R14.0: Abdominal distension (gaseous)) 3. Fatigue (R53.83: Other fatigue) 4. History of gastric surgery (Z98.890: Other specified postprocedural states) 5. Obesity due to excess calories (E66.09: Other obesity due to excess calories) Will schedule capsule endoscopy Continue iron supplementations per hematology Follow-up No qualifying data available Problem List/Past Medical History Ongoing Asthma Bloating Cyst of thyroid Difficulty swallowing Elevated creatine kinase Elevated glucose Elevated WBCs Enlarged thyroid gland Fatigue Iron deficiency anemia Low back pain Obesity due to excess calories Shortness of breath Spondylosis Thyroid nodule Weight gain Weight loss Wellness examination Historical No qualifying data Procedure/Surgical History Colonoscopy (09/05/2023), Esophagogastroduodenosco py (09/05/2023), Appendectomy, delivery, Cholecystectomy, Gastric sleeve, Parotidectomy. Medications Colace, 200 mg, Oral, Daily, Self Directed eszopiclone 3 mg Tab, 3 mg= 1 tab(s), Oral, Once a day (at bedtime), PRN, Self Directed folic acid 1 mg Tab, 1 mg= 1 tab(s), Oral, Daily, 4 refills lamotrigine 200 mg Tab, 200 mg= 1 tab(s), Oral, Daily sertraline 100 mg Tab, 100 mg= 1 tab(s), Oral, Daily Sodium Chloride 0.9% IV Susi 100 mL 100 mL, 100 mL, IV Venofer 20 mg/mL Soln-IV, See Instructions Ventolin HFA 90 mcg/inh Aerosol-Adpt, 2 puff(s), Inhalation, q4hr, PRN, 5 refills, Self Directed Allergies No Known Allergies Social History Alcohol - Denies Alcohol Use, 08/15/2023 Substance Abuse - Denies Substance Abuse, 08/15/2023 Tobacco Never (less than 100 in lifetime) Tobacco Use:., 09/21/2023 Never (less than 100 in lifetime) Tobacco Use:. Never Smokeless Tobacco Use:. Household tobacco concerns: No., 09/01/2023 Family History Ulcerative colitis: Father and Grandparent. Immunizations Vaccine Date Status SARS-CoV-2 (COVID-19) mRNA BNT-162b2 vax 04/02/2020 Recorded SARS-CoV-2 (COVID-19) mRNA BNT-162b2 vax 03/12/2020 Recorded [facility] Comment on above: Result Comment: Elec tronically Signed By: Vinay INGRAM, Stefan Martinez\.br\Date and Time Signed: 09/21/23 15:30 EDT Surgical Pathology Reporton 09-08-2023 Surgical Pathology Report [facility] [address] [place] [address]- Surgical Pathology Report Collected Date/Time: 09/05/2023 13:21 EDT Pathologist: Che INGRAM, Jak Received Date/Time: 09/05/2023 14:12 EDT Vinay INGRAM, Stefan Mclean MD, Stefan Dela Cruz Surgical Pathology Report - 09/08/2023 13:56 EDT - Auth (Verified) Final Diagnosis A: SMALL BOWEL, DUODENUM, BIOPSY: - Small bowel mucosa with no significant histopathology. - No evidence of celiac disease identified. B: STOMACH, BIOPSY: - Antral-type gastric mucosa with reactive gastropathy and mild chronic inactive gastritis. - No Helicobacter pylori microorganisms identified with immunohistochemical stain. (Electronic Signature) Yan. Che MD 09/08/2023 13:56 Clinical Information Iron deficiency anemia, fatigue Pre-Op Diagnosis: Iron deficiency anemia, fatigue Procedure: EGD Post-Op Diagnosis: 1.Small hiatal hernia 2.Irregular Z-line 3.Evidence of previous gastric sleeve 4.Gastropathy Specimen(s) Received A: Duodenal biopsy B: Gastric biopsy Gross Description A: Received in formalin labeled with patient name, number, and duodenal biopsy are three fragments of ge tissue ranging from 0.2 cm up to 0.3 cm in greatest dimension. Specimen is entirely submitted in one cassette. B: Received in formalin labeled with patient name, number, and gastric biopsy are three fragments of ge tissue ranging from less than 0.1 cm up to 0.5 cm in greatest dimension. Specimen is entirely submitted in one cassette. (DC) DC:[facility] Microscopic Description A&B: Microscopic examination performed unless gross only specified. The use of one or more reagents in the above tests is regulated as an analyte specific reagent (ASR). The test or tests are ordered following initial H&E microscopic examination. The performance characteristics were determined by the [facility]. They have not been cleared or approved by the US Food and Drug Administration. The FDA has determined that such clearance or approval is not necessary. These tests are used for clinical purposes. They should not be regarded as investigational or for research. Appropriate positive and negative controls are performed and are acceptable. [facility] Comment on above: Performed By: #### [id number] #### [facility] [address] [place] [address] Main OR Intraoperative Recor don 09-07-2023 Main OR Intraoperative Record Main OR Intraoperative Record IntraOp Document Type FT Summary Primary Physician: Vinay INGRAM, Stefan Martinez Finalized Date/Time: 09/07/23 14:37:49 Pt. Name: MORRO MALONEY/Sex: 1985 Female Med Rec #: [id number] Physician: Vinay INGRAM, Stefan Martinez Financial #: [id number] Pt. Type: O Room/Bed: / Admit/Disch: 09/05/23 12:46:40 - 09/05/23 23:59:59 Institution: Case Times FT Entry 1 Patient Times In Room 09/05/23 13:05:00 Out Room 09/05/23 13:32:00 Procedure Times Start 09/05/23 13:11:00 Stop 09/05/23 13:27:00 Anesthesia Times Start 09/05/23 13:05:00 Stop 09/05/23 13:32:00 Time at [facility] 09/05/23 13:20:00 Last Modified By: Akua BADILLO, Cinthya 09/05/23 13:32:28 General Comments: 1314-EGD completed/AW RN 1317-Colonoscopy started/AW RN 09/07/23 Chart opened to review and send charges LRoth CSFA Case Attendance FT Entry 1 Entry 2 Entry 3 Case Attendee Vaibhav MERCADO, Pipe Mclean MD, Stefan Fatima RN, Cinthya Role Performed Anesthesiologist Surgeon - Primary Wood Machinist Apprentice - Primary Cereal Miller Time In 09/05/23 13:05:00 09/05/23 13:05:00 09/05/23 13:05:00 Time Out 09/05/23 13:32:00 09/05/23 13:32:00 09/05/23 13:32:00 Procedure EGD AND COLONOSCOPY(.) EGD AND COLONOSCOPY(.) EGD AND COLONOSCOPY(.) Comments supervising Last Modified By: Akua RN, Cinthya Fatima RN, Cinthya Fatima RN, Cinthya 09/05/23 13:32:29 09/05/23 13:32:29 09/05/23 13:32:29 Entry 4 Entry 5 Case Attendee Bismark Swan Kirstyn K Role Performed Scrub - Primary Staff - Other Time In 09/05/23 13:05:00 09/05/23 13:05:00 Time Out 09/05/23 13:32:00 09/05/23 13:32:00 Procedure EGD AND COLONOSCOPY(.) EGD AND COLONOSCOPY(.) Comments help in room Last Modified By: Cinthya Fatima RN, RN, Angela 09/05/23 13:32:29 09/05/23 13:32:29 Perioperative Protocols FT Pre-Care Text: Implements protective measures prior to operative or invasive procedure, confirms identity before the operative or invasive procedure, verifies operative procedure, surgical site, and laterality Entry 1 Procedure(s) EGD AND COLONOSCOPY(.) Patient Identity Birthday, ID Band Verified (select at Check, Patient least 2): Participation Consents / H and P Anesthesia Consent, Operative Site N/A Verified HandP, Surgery/Procedure Marking Verified Consent Surgical Site No Laterality Verified n/a Verified Procedure Verified Yes Correct Patient Yes Position Verified Availability Equipment, Medication Prep Dry n/a Verified (If Applicable) PreOp Antibiotic No Time Out Pipe Springer Given Participants Vinay Ozuna MD, Stefan Martinez, Akua BADILLO, Sosa Mendes Micala E, Miles, Kirstyn K Time Out Complete 09/05/23 13:07:00 Outcomes Met? Yes Last Modified By: Cinthya Fatima RN 09/05/23 13:15:41 Post-Care Text: The patient is free from signs and symptoms of injury caused by extraneous objects Allergy Information FT Pre-Care Text: Verifies allergies Entry 1 Allergies Reviewed? Yes Allergies Reviewed Self/Patient With Outcomes Met? Yes Last Modified By: Cinthya Fatima RN 09/05/23 13:15:48 Post-Care Text: The patient received appropriate medication(s) safely administered during the perioperative period Surgical Procedures FT Entry 1 Procedure Description Procedure EGD AND COLONOSCOPY Modifiers . Surgeon Description EGD with duodenal and gastric biopsies. COLONOSCOPY Primary Procedure Yes Primary Surgeon Vinay INGRAM, Stefan Martinez Start 09/05/23 13:11:00 Stop 09/05/23 13:27:00 Anesthesia Type General Surgical Service Gastroenterology Wound Class 2 - Clean-Contaminated Last Modified By: Cinthya Fatima RN 09/05/23 13:28:20 General Case Data FT Pre-Care Text: Classifies surgical wound, implements aseptic technique, initiates traffic control Entry 1 Case Information OR ENDO 1 FT Case Level Level 2 Wound Class 2 - Clean-Contaminated Specialty Gastroenterology ASA Class 2 Preop Diagnosis IRON DEFICIENCY ANEMIA, Postop Same As Preop No FATIGUE Postop Diagnosis EGD- gastropathy, Outcomes Met? Yes previous gastric sleeve surgery,irregular zline, hiatal hernia. Colonoscopy-internal hemorrhoids Last Modified By: Cinthya Fatima RN 09/05/23 13:37:48 Post-Care Text: The patient is free from signs and symptoms of infection Skin Assessment (Pre Procedure) FT Pre-Care Text: Implements protective measures to prevent skin/ tissue injury due to thermal or mechanical sources Evaluates for signs and symptoms of physical injury to skin and tissue Entry 1 Skin Integrity Intact, [place], Warm, and Skin Abnormality No Dry Outcomes Met? Yes Last Modified By: Cinthya Fatima RN 09/05/23 13:18:54 Post-Care Text: The patient is free from signs and symptoms of injury caused by extraneous objects Patient Positioning FT Pre-Care Text: Identifies physical alterations that require additional precautions for procedure-specific (more content not included)... Normal [facility] Discharge Instructionson Discharge Instructions Discharge Instruc tions MORRO MALONEY :1985 Visit Date:09/05/2023 Inpatient Discharge Instructions Your Care Team Admitting Physician - Stefan Mclean MD. Referring Physician - Stefan Mclean MD Reason for Your Visit IRON DEFECIENCY ANEMIA, FATIGUE Your Diagnosis Gastropathy H/O gastric sleeve Hemorrhoids, internal Tests Performed Pathology Tissue Exam -- Results Pending -- Please visit your patient portal for your results or contact your primary care physician. This Is Your Medications List albuterol (Ventolin HFA 90 mcg/inh Aerosol-Adpt) docusate (Colace) eszopiclone (eszopiclone 3 mg Tab) folic acid (folic acid 1 mg Tab) iron sucrose (Venofer 20 mg/mL Soln-IV) lamotrigine (lamotrigine 200 mg Tab) sertraline (sertraline 100 mg Tab) Procedure History Colonoscopy (09/05/2023), Esophagogastroduodenosco py (09/05/2023), Appendectomy, delivery, Cholecystectomy, Gastric sleeve, Parotidectomy. What to do next Instructions From Your Doctor No qualifying data available. New Follow Up Appointments after Discharge Follow Up with Stefan Mclean MD, [facility] When: Comments: Call for any problems. The office will reach out in about one week from procedure date. Where: Medications What How Much When Why Instructions Next Dose Unchanged albuterol (Ventolin HFA 90 mcg/ inh Aerosol-Adpt) 2 Puffs Inhalation Every 4 hours as needed for for wheezing Unchanged docusate (Colace) 200 Milligram By Mouth Every day Unchanged eszopiclone (eszopiclone 3 mg Tab) 1 Tablets By Mouth Once a day (at bedtime) as needed for for insomnia Unchanged folic acid (folic acid 1 mg Tab) 1 Tablets By Mouth Every day Iron deficiency anemia Unchanged iron sucrose (Venofer 20 mg/ mL Soln-IV) See instructions Iron deficiency anemia 500 mg IV every 2 weeks x 2 doses Unchanged lamotrigine (lamotrigine 200 mg Tab) 1 Tablets By Mouth Every day Unchanged sertraline (sertraline 100 mg Tab) 1 Tablets By Mouth Every day Test Results No qualifying data available. Allergies No Known Allergies Problems Ongoing - Any problem that you are currently receiving treatment for. Asthma Bloating Cyst of thyroid Difficulty swallowing Elevated creatine kinase Elevated glucose Elevated WBCs Enlarged thyroid gland Fatigue Iron deficiency anemia Low back pain Shortness of breath Spondylosis Thyroid nodule Weight gain Weight loss Wellness examination Education Materials Endoscopy Care After Procedure Please read the instructions outlined below and refer to this sheet in the next few weeks. These discharge instructions provide you with general information on caring for yourself after you leave the hospital. Your doctor may also give you specific instructions. While your treatment has been planned according to the most current medical practices available, unavoidable complications occasionally occur. If you have any problems or questions after discharge, please call your doctor. ACTIVITY ? You may resume your regular activity but move at a slower pace for the next 24 hours. ? Take frequent rest periods for the next 24 hours. ? Walking will help expel (get rid of) the air and reduce the bloated feeling in your abdomen. ? No driving for 24 hours (because of the anesthesia (medicine) used during the test). ? You may shower. ? Do not sign any important legal documents or operate any machinery for 24 hours (because of the anesthesia used during the test). NUTRITION ? Drink plenty of fluids. ? You may resume your normal diet. ? Begin with a light meal and progress to your normal diet. ? Avoid alcoholic beverages for 24 hours or as instructed by your caregiver. MEDICATIONS ? You may resume your normal medications unless your caregiver tells you otherwise. WHAT YOU CAN EXPECT TODAY ? You may experience abdominal discomfort such as a feeling of fullness or ?gas? pains. FOLLOW-UP ? Your doctor will discuss the results of your test with you. SEEK IMMEDIATE MEDICAL ATTENTION IF ANY OF THE FOLLOWING OCCUR: ? Excessive nausea (feeling sick to your stomach) and/or vomiting. ? Severe abdominal pain and distention (swelling). ? Trouble swallowing. ? Temperature over 100 F (37.8? C). ? Rectal bleeding or vomiting of blood. Document Released: 09/21/2004 Document Re-Released: 08/01/2006 ExitCare? Patient Information ?2009 [employer]. Hemorrhoids Hemorrhoids are swollen veins that may develop: ? In the butt (rectum). These are called internal hemorrhoids. ? Around the opening of the butt (anus). These are called external hemorrhoids. Hemorrhoids can cause pain, itching, or bleeding. Most of the time, they do not cause serious problems. They usually get better with diet changes, lifestyle changes, and other home treatments. What are the causes? This cond (more content not included)... Normal [facility] Comment on above: Result Comment: Elec tronically Signed By: Veda Narayanan I\.br\Date and Time Signed: 09/05/23 13:53 EDT Perla 09-05-2023 Esophagogastroduodenosco py EGD Patient: MORRO MALONEY Age: 38 years Sex: Female : 1985 Associated Diagnoses: None Author: Stefan Mclean MD Pre-Procedure Procedure Date 09/05/2023 13:30:00 . Procedure Type: Esophagogastroduodenosco py with biopsy. Procedure provider Performed by Stefan Mclean MD. Current history and physical Documented on chart. Informed Consent After discussing the rationale, risks and benefits, and alternatives to this procedure, the patient provided signed consent for the procedure. Pre-procedure diagnosis: anemia. Medications (Selected) Inpatient Medications Ordered Lactated Ringers IV Susi 1000 mL 1,000 mL: 1,000 mL, IV, 100 mL/hr, Routine, Start date 09/05/23 13:01:00 EDT, 10 hour(s), Total volume (mL): 1,000, 107 kg, 2.19, m2 Sodium Chloride 0.9% IV Susi 100 mL 100 mL: 100 mL, IV, 20 mL/hr, Other (see comment), Routine, Start date 08/05/23 5:23:00 EDT, 5 hour(s), Total volume (mL): 100, 112.7 kg, 2.25, m2 Sodium Chloride 0.9% IV Susi 1000 mL 1,000 mL: 1,000 mL, IV, 20 mL/hr, Routine, Start date 09/05/23 6:46:00 EDT, 50 hour(s), Total volume (mL): 1,000, 107 kg, 2.19, m2 Prescriptions Prescribed Venofer 20 mg/mL Soln-IV: See Instructions, 500 mg IV every 2 weeks x 2 doses, # 25 mL, Refills(s) 0, 161, cm, 08/01/23 14:17:00 EDT, Height/Length Dosing, 107.3, kg, 08/01/23 14:17:00 EDT, Weight Dosing Ventolin HFA 90 mcg/inh Aerosol-Adpt: 2 puff(s), Inhalation, q4hr for wheezing, 18 gram, Refill(s) 5, [facility]/pharmacy #[id number], 161, cm, 10/18/22 14:05:00 EDT, Height/Length Dosing, 105.6, kg, 10/18/22 13:58:00 EDT, Weight Dosing folic acid 1 mg Tab: 1 mg = 1 tab(s), Oral, Daily, # 90 tab(s), Refills(s) 4, Pharmacy: [facility]/pharmacy #[id number], 161, cm, 08/15/23 11:32:00 EDT, Height/Length Dosing, 106.5, kg, 08/15/23 11:32:00 EDT, Weight Dosing Documented Medications Documented Colace: 200 mg, Oral, Daily, Constipation eszopiclone 3 mg Tab: 3 mg = 1 tab(s), Oral, Once a day (at bedtime), PRN for insomnia, Refills(s) 0 lamotrigine 200 mg Tab: 200 mg = 1 tab(s), Oral, Daily sertraline 100 mg Tab: 100 mg = 1 tab(s), Oral, Daily, Refills(s) 0, Depression Anticoagulant/antiplatel et None. ASA Classification: Class II. . Monitoring: See anesthesia record. . Procedure The procedure was performed in the hospital. See anesthesia record for sedation given during procedure. The patient was positioned starting in the left lateral decubitus position and with safety measures. Endoscope type used was an adult-size, introduced orally, advanced to the 3rd portion of the duodenum. No difficulty was encountered during the procedure. Views were excellent. The patient tolerated the procedure well. Findings 1. Normal esophagus Z-line irregular at 35 cm. Small hiatal hernia 2. Evidence of previous gastric sleeve. Erythema in the antrum, mild patchy. Otherwise normal stomach. Biopsies of the stomach were taken to rule out H. pylori. 3. Normal duodenum. Biopsies obtained Images Procedure images: Rec_hd_video_ [id number] Rec_hd_video_ [id number].jpg Rec_hd_video_ [id number].jpg Rec_hd_video_ [id number].jpg Rec_hd_video_ [id number].jpg Rec_hd_video_ [id number].jpg Rec1_hd_video_ [id number].jpg . Post-Procedure Complications: none. Estimated blood loss: minimal. Specimens: sent to pathology. Devices/ implants: none left in place. Impression and Plan small hiatal hernia Irregular Z-line Evidence of previous gastric sleeve Gastropathy Recommendations: -Resume previous diet -Resume home medications -Await pathology results, follow in GI clinic in 1-2 after discharge Normal [facility] Comment on above: Other Comment: Felipa gonzalez Attachment - attachment storage system not supported [id number] Can be viewed in source system Missing Attachment - attachment storage system not supported [id number] Can be viewed in source system Missing Attachment - attachment storage system not supported [id number] Can be viewed in source system Missing Attachment - attachment storage system not supported [id number] Can be viewed in source system Missing Attachment - attachment storage system not supported [id number] Can be viewed in source system Missing Attachment - attachment storage system not supported [id number] Can be viewed in source system Missing Attachment - attachment storage system not supported [id number] Can be viewed in source system Main OR PACU I Recordon 08-21 Main OR PACU I Record Main OR PACU I Rec ord PACU Phase I Document Type FT Summary Primary Physician: Stefan Mclean MD Finalized Date/Time: 09/05/23 14:28:48 Pt. Name: MORRO MALONEY/Sex: 1985 Female Med Rec #: [id number] Physician: Stefan Mclean MD Financial #: [id number] Pt. Type: O Room/Bed: / Admit/Disch: 09/05/23 12:46:40 - Institution: Case Times PACU I FT Pre-Care Text: Identifies barriers to communication and implements measures to provide psychological support Develops individualized plan of care, and ensures continuity of care Maintains patient's dignity and privacy, and maintains patient confidentiality Identifies and reports philosophical, cultural, and spiritual beliefs and values Identifies individual values and wishes concerning care Implements aseptic technique, and administers prescribed antibiotic therapy and immunizing agents as ordered Evaluates postoperative tissue perfusion Implements thermoregulation measures, and monitors body temperature Evaluates postoperative respiratory status Evaluates postoperative cardiac status Evaluates postoperative neurological status Assesses pain control, collaborated in initiating patient-controlled analgesia and implements alternative methods of pain control Verifies allergies, administers prescribed medications and solutions, evaluates response to medications Entry 1 In PACU I 09/05/23 13:35:00 Discharge from PACU 09/05/23 14:05:00 I Outcomes Met? Yes Last Modified By: Veda Narayanan I 09/05/23 14:28:29 Post-Care Text: The patient demonstrates knowledge of the expected response to the operative or invasive procedure The patient's care is consistent with the individualized perioperative plan of care The patient's right to privacy is maintained The patient's value system, lifestyle, ethnicity, and culture are considered, respected, and incorporated into the perioperative plan of care The patient participates in decisions affecting his or her perioperative plan of care The patient is free from signs and symptoms of infection The patient has wound/tissue perfusion consistent with or improved from baseline levels established preoperatively The patient is at or returning to normothermia at the conclusion of the immediate postoperative period The patient's respiratory function is consistent with or improved from baseline levels established preoperatively The patient's cardiovascular status is consistent with or improved from baseline levels established preoperatively The patient's cardiovascular status is consistent with or improved from baseline levels established preoperatively The patient demonstrates and/or reports adequate pain control throughout the perioperative period The patient received appropriate medication(s), safely administered during the perioperative period Acuity Level PACU I FT Entry 1 Start Time 09/05/23 13:35:00 Stop Time 09/05/23 14:05:00 Acuity Level Acuity Level I Last Modified By: Veda Narayanan I 09/05/23 14:28:41 Finalized By: Veda Narayanan I Document Signatures Signed By: Veda Narayanan I 09/05/23 14:28 Normal [facility] Main OR Preoperative Recordo n 09-05-2023 Main OR Preoperative Record Main OR Preoperative Record Holding Area Document Type FT Summary Primary Physician: Stefan Mclean MD Finalized Date/Time: 09/05/23 12:58:13 Pt. Name: MORRO MALONEY/Sex: 1985 Female Med Rec #: [id number] Physician: Stefan Mclean MD Financial #: [id number] Pt. Type: O Room/Bed: / Admit/Disch: 09/05/23 12:46:40 - Institution: Case Times Holding FT Pre-Care Text: Verifies consent for planned procedure, identifies individual values and wishes concerning care, includes family members in perioperative teaching Secures patient's records' belongings, and valuables, maintains patient's dignity and privacy, and maintains patient confidentiality Entry 1 In Holding 09/05/23 12:50:00 Outcomes Met? Yes Last Modified By: Elizabeth Christina RN 09/05/23 12:54:27 Post-Care Text: The patient participates in decisions affecting his or her perioperative plan of care The patient's right to privacy is maintained Surgery Checklist FT Entry 1 Patient Birthday, ID Band Procedure History and Physical, Identification: Check, Patient Verification: Surgical Consent, With Participation Patient NPO after Midnight: Yes Results Reviewed Clear Comments: Personal Items: Glasses, Jewelry Personal Items Glassess, earrings Comment: Limitations: Vision Complaints of Pain: No Pain Comment: None Operative Site n/a Marking: Availability Equipment Verified: Does Patient Smoke No Patient states Yes Comment - Adult Nikki- mom postop adult Supervision supervision available Case Cancelled in No Holding Area see comments below for reason Last Modified By: Elizabeth Christina RN 09/05/23 12:58:09 General Comments: Pt completed prep at 0800 and remained NPO since/CUAUHTEMOCRN Finalized By: Elizabeth Christina RN Document Signatures Signed By: Elizabeth Christina RN 09/05/23 12:58 Normal [facility] IgA, Quant.on 09-03-2023 IgA [Mass/Vol] 85 mg/dL Low 87-352 [facility] Comment on above: Result Comment: Perf ormed at: [address] [id number] PhD Susan Cadet Performed By: #### 1 [id number] #### [facility] [address] [place] [address] T-TG IGGon 09-03-2023 tTG IgG Qn (S) 2 unit/mL Invalid Interpretation Code 0-5 [facility] Comment on above: Result Comment: Nega tive 0 - 5 Weak Positive 6 - 9 Positive >9 Performed at: [address] [id number] PhD Susan Cadet Performed By: #### 1 [id number] #### [facility] [address] [place] [address] Ambulatory Visit Summaryon 0 09-01-2023 Ambulatory Visit Summary Ambulatory Visi t Summary MORRO MALONEY :1985 Visit Date:08/16/2023 Ambulatory Visit Instructions Your Diagnosis Cyst of thyroid, Thyroid nodule Difficulty swallowing Your Care Team Primary Care Physician - Cleo Hassan This Is Your Medications List albuterol (Ventolin HFA 90 mcg/inh Aerosol-Adpt) docusate (Colace) eszopiclone (eszopiclone 3 mg Tab) folic acid (folic acid 1 mg Tab) iron sucrose (Venofer 20 mg/mL Soln-IV) lamotrigine (lamotrigine 200 mg Tab) sertraline (sertraline 100 mg Tab) Procedures Performed Appendectomy, delivery, Cholecystectomy, Gastric sleeve, Parotidectomy. What to do next You Need to Complete the Following IgA, Quant., Blood, Routine collect, 09/01/23, Order for future visit, Lab Collect, Iron deficiency anemia Invalid Interpretation Code Fatigue, Print Label By Order Location\.b r\ Someone Will Contact You Regarding These Appointment s\.br\ [facility] [place] [place] Ref[place], ENT, Dr. Clarke, Needs biopsy of thyroid nodule, 08/29/23 7:57:00 EDT, Thyroid nodule [facility] CBC w/ Auto Diffon 4 Anisocytosis Ql (Bld) PRESENT Invalid Interpretation Code [facility] Comment on above: Performed By: #### 2 [id number] #### [facility] [address] [place] [address] Basophils/100 WBC (Bld) 0.4 % Normal 0.0-2.0 [facility] Comment on above: Performed By: #### 2 [id number] #### [facility] [address] [place] [address] Basophils/Leukocytes Auto (Bld) [Pure # fraction] 0.0 E9/L Normal 0.0-0.2 [facility] Comment on above: Performed By: #### 2 [id number] #### [facility] [address] [place] [address] Eosinophils (Bld) [#/Vol] 0.0 E9/L Normal 0.0-0.5 [facility] Comment on above: Performed By: #### 2 [id number] #### [facility] [address] [place] [address] Eosinophils/100 WBC (Bld) 0.0 % Normal 0.0-8.0 [facility] Comment on above: Performed By: #### 2 [id number] #### [facility] [address] [place] [address] Erythrocyte distribution width (RBC) [Ratio] 28.2 % High 10.9-14.2 [facility] Comment on above: Performed By: #### 2 [id number] #### [facility] [address] [place] [address] Hematocrit (Bld) [Volume fraction] 34.4 % Normal 34.0-46.0 [facility] Comment on above: Performed By: #### 2 [id number] #### [facility] [address] [place] [address] Hemoglobin (Bld) [Mass/Vol] 10.6 g/dL Low 12.0-16.0 [facility] Comment on above: Performed By: #### 2 [id number] #### [facility] [address] [place] [address] Hypochromia Auto Ql (Bld) PRESENT Invalid Interpretation Code [facility] Comment on above: Performed By: #### 2 [id number] #### [facility] [address] [place] [address] Lymphocytes (Bld) [#/Vol] 2.8 E9/L Normal 1.0-4.0 [facility] Comment on above: Performed By: #### 2 [id number] #### [facility] [address] [place] [address] Lymphocytes/100 WBC (Bld) 31.5 % Normal 14.0-50.0 [facility] Comment on above: Performed By: #### 2 [id number] #### [facility] [address] [place] [address] MCH (RBC) [Entitic mass] 22.7 pg Low 27.0-34.0 [facility] Comment on above: Performed By: #### 2 [id number] #### [facility] [address] [place] [address] MCHC (RBC) [Mass/Vol] 30.8 g/dL Low 31.4-36.0 [facility] Comment on above: Performed By: #### 2 [id number] #### [facility] [address] [place] [address] MCV (RBC) [Entitic vol] 73.7 fL Low 80.0-100.0 [facility] Comment on above: Performed By: #### 2 [id number] #### [facility] [address] [place] [address] Microcytes Ql (Bld) PRESENT Invalid Interpretation Code [facility] Comment on above: Performed By: #### 2 [id number] #### [facility] [address] [place] [address] Monocytes (Bld) [#/Vol] 0.6 E9/L Normal 0.2-1.0 [facility] Comment on above: Performed By: #### 2 [id number] #### [facility] [address] [place] [address] Neutrophils (Bld) [#/Vol] 5.3 E9/L Normal 2.0-7.5 [facility] Comment on above: Performed By: #### 2 [id number] #### [facility] [address] [place] [address] Neutrophils/100 WBC (Bld) 60.9 % Normal 36.0-75.0 [facility] Comment on above: Performed By: #### 2 [id number] #### [facility] [address] [place] [address] Platelet mean volume (Bld) [Entitic vol] 7.6 fL Normal 6.4-10.8 [facility] Comment on above: Performed By: #### 2 [id number] #### [facility] [address] [place] [address] Platelets (Bld) [#/Vol] 316.0 E9/L Normal 150.0-500.0 [facility] Comment on above: Performed By: #### 2 [id number] #### [facility] [address] [place] [address] RBC (Bld) [#/Vol] 4.7 E12/L Normal 4.3-5.9 [facility] Comment on above: Performed By: #### 2 [id number] #### [facility] [address] [place] [address] RBC size Nom (Bld) SEE MORPHOLOGY Invalid Interpretation Code [facility] Comment on above: Performed By: #### 2 [id number] #### [facility] [address] [place] [address] WBC corrected for nucl RBC Auto (Bld) [#/Vol] 8.7 E9/L Normal 4.0-11.0 [facility] Comment on above: Performed By: #### 2 [id number] #### [facility] [address] [place] [address] Gastroenterology Office/Clin ic Noteon 09-01-2023 Gastroenterology Office/Clinic Note Gastroenterology Office/Clinic Note Chief Complaint ref by oncology- KELIN HPI Staff Patient is a 38 year old female who was referred by Oncology for KELIN. Hx gastic sleeve Cannot tolerate PO iron - causes n/v Denies dark stools or rectal bleeding PCP sent for IV Venerfer 500mg x2 - received 08/11 & 08/18 - tolerated well Denies previous EGD/Colonoscopy Denies Fhx colon cancer - Father and Grandmother have Ulcerative colitis Denies blood thinners/diabetic injectables c/o of hemorrhoids- does not do anything for these and a change in bowel habits and urgency with stools Laboratory Results CBC CMP PT PTT Basophil Absolute: 0 E9/L (08/12/23) A/G Ratio: 1.5 (08/12/23) INR: 1.11 (08/03/23) PTT: 32 second(s) (08/03/23) Basophil Auto: 0.2 % (08/12/23) AGAP: 12 mEq/L (08/12/23) PT: 12.5 second(s) (08/03/23) Eos Absolute: 0 E9/L (08/12/23) Albumin Lvl: 4.5 gm/dL (08/12/23) Eos Auto: 0 % (08/12/23) Alk Phos: 92 Int._Unit/L (08/12/23) Hct: 30.8 % Low (08/12/23) ALT: 10 Int._Unit/L (08/12/23) HGB: 9.4 gm/dL Low (08/12/23) AST: 19 Int._Unit/L (08/12/23) Lymph Absolute: 2.2 E9/L (08/12/23) Bili Total: 0.4 mg/dL (08/12/23) Lymph Auto: 30.8 % (08/12/23) BUN: 18 mg/dL (08/12/23) MCH: 22.2 pg Low (08/12/23) BUN/Creat Ratio: 18 (08/12/23) MCHC: 30.5 gm/dL Low (08/12/23) Calcium Lvl: 9.5 mg/dL (08/12/23) MCV: 72.7 fL Low (08/12/23) Chloride: 104 mmol/L (08/12/23) [place] Absolute: 0.5 E9/L (08/12/23) CO2: 24 mmol/L (08/12/23) [place] Auto: 6.7 % (08/12/23) Creatinine: 1 mg/dL (08/12/23) MPV: 7.4 fL (08/12/23) Globulin: 3 gm/dL (08/12/23) Neutro Absolute: 4.5 E9/L (08/12/23) Glucose Lvl: 96 mg/dL (08/12/23) Neutro Auto: 62.3 % (08/12/23) Potassium Lvl: 4.5 mmol/L (08/12/23) Platelet: 372 E9/L (08/12/23) Sodium Lvl: 135 mmol/L (08/12/23) RBC: 4.2 E12/L Low (08/12/23) Total Protein: 7.5 gm/dL (08/12/23) RDW: 24.6 % High (08/12/23) WBC: 7.2 E9/L (08/12/23) Liver Studies Ferritin Lvl: 99 ng/mL (08/12/23) Iron: 40 mcg/dL (08/12/23) Iron: 11 mcg/dL Low (08/01/23) TIBC: 360 mcg/dL (08/12/23) Transferrin: 257 mg/dL (08/12/23) History of Present Illness I have reviewed HPI staff note, most recent labs and imaging, more than 30 minutes spent reviewing the chart, during encounter, placing orders and counseling the patient. pt with low iron and tired and fatigued s/p 1 iron infusion pt wants to eat ice wants to eat ice short or breath hx of sleeve 6 years ago dad with UC Some weight loss(5 pounds) bad hemorrhoids Gas after eating carbohydrates Review of Systems All systems reviewed, negative except as mentioned above Physical Exam Vitals & Measurements HR: 82(Peripheral) RR: 16 BP: 128/86 HT: 63 in HT: 161 cm WT: 107 kg WT: 235.4 lb BMI: 41.28 General: alert, no acute distress HEENT: atraumatic normocephalic Cardiovascular: regular rate and rhythm, normal peripheral perfusion Respiratory: Lungs CTA, respirations non labored Extremities: no deformity, no trauma Abdomen: Benign, soft, nontender nondistended Assessment/Plan 1. Iron deficiency anemia (D50.9: Iron deficiency anemia, unspecified) Ordered: Colonoscopy (Hospital Procedure) EGD Endoscopy (Hospital Procedure) IgA, Quant. t-Transglutaminase (tTG) IgG 2. Fatigue (R53.83: Other fatigue) Ordered: Colonoscopy (Hospital Procedure) EGD Endoscopy (Hospital Procedure) IgA, Quant. t-Transglutaminase (tTG) IgG 3. Weight loss (R63.4: Abnormal weight loss) 4. Bloating (R14.0: Abdominal distension (gaseous)) 5. History of gastric sleeve Check celiac panel and IgA levels EGD with small bowel biopsies Colonoscopy with TI evaluation Continue iron supplementations Might benefit from capsule endoscopy if the above workup is negative gave handout about low FODMAP diet Follow-up No qualifying data available Problem List/Past Medical History Ongoing Asthma Bloating Cyst of thyroid Difficulty swallowing Elevated creatine kinase Elevated glucose Elevated WBCs Enlarged thyroid gland Fatigue Iron deficiency anemia Low back pain Shortness of breath Spondylosis Thyroid nodule Weight gain Weight loss Wellness examination Historical No qualifying data Procedure/Surgical History Appendectomy, delivery, Cholecystectomy, Gastric sleeve, Parotidectomy. Medications Colace, 200 mg, Oral, Daily eszopiclone 3 mg Tab, 3 mg= 1 tab(s), Oral, Once a day (at bedtime), PRN folic acid 1 mg Tab, 1 mg= 1 tab(s), Oral, Daily, 4 refills lamotrigine 200 mg Tab, 200 mg= 1 tab(s), Oral, Daily sertraline 100 mg Tab, 100 mg= 1 tab(s), Oral, Daily Sodium Chloride 0.9% IV Susi 100 mL 100 mL, 100 mL, IV Venofer 20 mg/mL Soln-IV, See Instructions Ventolin HFA 90 mcg/inh Aerosol-Adpt, 2 puff(s), Inhalation, q4hr, PRN, 5 refills Allergies No Known Allergies Social H (more content not included)... Normal [facility] Comment on above: Result Comment: Elec tronically Signed By: iVnay INGRAM, Stefan Martinez\.br\Date and Time Signed: 09/01/23 13:55 EDT HEMATOLOGYOrdered By: SYSTEM SYSTEM on 09-01-2023 Anisocytosis Ql (Bld) PRESENT *NA* (09/01/23 2:49 PM) Invalid Interpretation Code Remisol Heme Basophils/100 WBC (Bld) 0.4 % Normal 0.0 - 2.0 % Remisol Heme Basophils/Leukocytes Auto (Bld) [Pure # fraction] 0.0 E9/L Normal 0.0 - 0.2 E9/L Remisol Heme Eosinophils (Bld) [#/Vol] 0.0 E9/L Normal 0.0 - 0.5 E9/L Rem[facility]e Eosinophils/100 WBC (Bld) 0.0 % Normal 0.0 - 8.0 % Rem[facility]e Erythrocyte distribution width (RBC) [Ratio] 28.2 % High 10.9 - 14.2 % Remisol [facility]e Hematocrit (Bld) [Volume fraction] 34.4 % Normal 34.0 - 46.0 % Remisol Heme Hemoglobin (Bld) [Mass/Vol] 10.6 g/dL Low 12.0 - 16.0 gm/dL Remisol Heme Hypochromia Auto Ql (Bld) PRESENT *NA* (09/01/23 2:49 PM) Invalid Interpretation Code Remisol Heme Lymphocytes (Bld) [#/Vol] 2.8 E9/L Normal 1.0 - 4.0 E9/L Rem[facility]e Lymphocytes/100 WBC (Bld) 31.5 % Normal 14.0 - 50.0 % Rem[facility] Heme MCH (RBC) [Entitic mass] 22.7 pg Low 27. 0 - 34.0 pg Remisol Heme MCHC (RBC) [Mass/Vol] 30.8 g/dL Low 31.4 - 36.0 gm/dL Remisol Heme MCV (RBC) [Entitic vol] 73.7 fL Low 80.0 - 100.0 fL Remisol Heme Microcytes Ql (Bld) PRESENT *NA* (09/01/23 2:49 PM) Invalid Interpretation Code Remisol Heme Monocytes (Bld) [#/Vol] 0.6 E9/L Normal 0.2 - 1.0 E9/L [facility]e Monocytes/100 WBC (Bld) 7.2 % Normal 4.0 - 14.0 % [facility] Neutrophils (Bld) [#/Vol] 5.3 E9/L Normal 2.0 - 7.5 E9/L [facility] Neutrophils/100 WBC (Bld) 60.9 % Normal 36.0 - 75.0 % [facility] Platelet mean volume (Bld) [Entitic vol] 7.6 fL Normal 6.4 - 10.8 fL Rem[facility]e Platelets (Bld) [#/Vol] 316.0 E9/L Normal 150. 0 - 500.0 E9/L Remisol Heme RBC (Bld) [#/Vol] 4.7 E12/L Normal 4.3 - 5.9 E12/L Remisol Heme RBC size Nom (Bld) SEE MORPHOLOGY *NA* (09/01/23 2:49 PM) Invalid Interpretation Code Remisol Heme WBC corrected for nucl RBC Auto (Bld) [#/Vol] 8.7 E9/L Normal 4.0 - 11.0 E9/L Remisol Heme Consenton 08-17-2023 Consent [id number] F [facility] Coding Summary.on 08-16-2023 Coding Summary. LYLDTlsl42GHb5nUs+PG hlYW Q+YE2YDUJmL63udBPakA9zH0 NMTElOSywgQVBQTElOSyIgbm RbEP9mgMXiMMTo IC8+VR5rSCHjVzudtWPsu0K0 jDO4C66snc3aDNnrtMO5MCRv LbBjqrufi4eknCd0TBumMpow OyBt WRAsiX94JKH3gP82Ej94fQVe xFAyq6jplJa1RcBsOQUhBZQ0 uAmxENomm8XoENDyW42poZXv c2U6 HUOvcHutvLBzGzClgFM1xM1z FAazvoeja3rauybvFag6gs43 qPWxe9X8tYD6J8GxpfD1ICEc bGQg ZcvhiSCDrH1yolnae0emwbnm BmVqFJYdKUd2OOa3COAqiVin OyJgVV79ZSC4QCEdfrUpQ1Wo LWFs oVhzWeM9b6Q3Yc1BA4QKWphe F3WQEOUKKVwnjSN+FP92ip97 X2OuHglcBva0RVBpTQF5gYO9 aD0n JLJgJPrzr1U1nOB9W6NbeoMu gh3lb9roGRIeBPloZ62zqGQc u1L2UPFnsNI9GVUghUucKnKw aG93 Oyc+FXLuaSboi4RdIapqg5lm d6jqgHn0SpjgIMIkstSdiUxh DSS4b4SrUj1sMVVqiNE2iXM0 aD0i ZmEoXhQ1BMhaM886UvKuxUAc CrmzR14vM4TjqET+PHRyPjx0 EPYuhMczJG5iY4SfGTCniymr bGVm dZltQV4wUENzutjcEICdiD0y RIFvS0x2WzRkFgE0PShlW7Do OHYedtflKk01pQ8dPvIvGvL3 MGlu P3OhtyP7GZBsoWSeSMjeVAR6 G42vp7C7EPQoDZDgAGY2oUJ7 kB0rbUvkzkpwlRSdmWdzabZe dGlj HIbnNCmqL941OOAwzLrvFpLi ZGluZyBEYXRlOiAgMDYvMjUv MjAyNDwvdGQ+QMQxXNT9uSkx PSAn zOVsWYtuJu6rxRxnsQyiRH5l LEJszzzdETRidR3qIURplNAv gWtyXA5bNFEtsfzcm344UlGg MHB0 GCUesHQpF8TrgZ3iXbCzFWPq PPKaA0EpnTOeRCbrU495UIbg SrL4YWDhcdRmT1CtFNAyjLnc OiB0 a2B9Mk2Hx5LcplsxT2ClrJEa UuCiPjurRXh3W1MvFaluaYA+ UX46OOXnJS01ZTr1KGP1aMal PSdi NOXcC9GzbR1gPiEsEXOgBORf Oyc+PHRhYmxlIHdpZHRoPScx JJRwKcOlzNtrST4oGl3nQZEt LWNv wSkeiJVzNhEir4wlBENuRLwx TQ4dgUspZ0YecAF8QVDis0m3 Vl40E04lE5FsvSF+PGNvbCB3 aWR0 hB1eNtOjTiS9FYceC393RvGc kYSfPilhz4arq0dqsHl6QkR3 DQVfnmFjjYzrGIP0m5CnMj61 Y29s IHdpZHRoPSIxNSUiIHZhbGln ab3riI1oRy8+XRYolAJ6xAZ5 dG9yFpJnFrH9EToiO766CxLw cCIv Jedwl7brt1ojdJf7EpKlPSDj yoYamCniRPA1s0XoBq68H5Kj eRnqe8GjWeq0gh95xRKyf1K3 bGU9 C4ZgEYNenpmteJPtqYfmPL8v QHGtwakgWGQetJ4aCEAhG9w0 YvArPkP2AFfhY6NgiwR9DXNg bGQg LXWzcIIUeO2mjfrqj6uhrimy KfLeYSYeAHa7QSs2UWZaaMhe GjCpRWB6NzS7VIM9fVQvzX2y bGln aostcQ6bYnl+KAL9uOJnlPHS NA9yCxanyWW+NZYhQTH2lBdc VRmpKVTlhH0jPRNxF1v5JoZb LjA1 ORrmN4SiweH2YMCknETqXCSi mBENvT5yvntal3ganasjJmVq FBJsTNu7KVr1HQPegFijSqSc ZWZ0 GeU8AUX4qVRyiO2nkIkdixub pV5tAwq+LbwtsIngTIO9STf1 N9WdDny8VPQbbJfuLL3fxTKa ZGlu Mj9pyAzgcScmNP9yXYYfqkay m537XdMmr3shKQYqnRHwYJjy IGV5Z64ym0X7DFFxONQyYDV8 dGV4 eI9wvKtxoezdtMHaiQgcjtNj xXjvYRqtBYvzE524HZMjaFxu OzMnPAt7V1LhRpn3JNUlpXxl ZT0n tNAfJJvvUs6naBbtuPxuAM7c GFCjzvwng694ThLnh6cqZRQt fPPwKWmhVKB7Z79vc7M3YHTk MDAw XMV7oJN3lN5ptZdnrzyzgTVc mCkiguNdqXgeZYebHZnrA913 KJNhdLynPzGkdVb7X8RqDkx7 ZCBz zZrnDQ7quUPpEJyxJm2swJma wIexBP4eHLKgndrcq396DiWi y0kbIXGnpRWhHUpwYDT4Y19x b3I6 KHBgTCTkFAW6pHX0fW4hwChf bjogbGVmdDsgdmVydGljYWwt OJqjO256XUItvDzaRfEnmBkc bnQg OFynEEr4I8QlThiupQV+PC90 EARpJR11fFYnmABas4jxeZp0 TtBlZIJgGEB8yIleKEbqi0Sw ZXIt O37fcNCbg7R3XBWnmAikhXLz SmApuLW7oV9vNYjknkdqg6bt oqvtWmosh2kzvk22oL10W51v IHdp SFYwFOPfGGFrNBLgjZkmti7v nA9mFg5+ZRIudWU7bHB1kR4l VIFfDdV1VGteD641FuVwjANs Pjxj a0ewq4bmgSz1LeR6ORCikhNf pWhdKRO3a4HdYh20M02oMLou UVCyPMDaKODgVXDmfLmkun3d dG9w Ii8+RDJilVB4pSD0xO8aWxAc KhQ6JCxzE754CmBkvMWwOucd L18rW8NlzNO+ZPNxRgg1BAHk dHls ZN6uiDQdCMcqPc3lWAK7LnOo FfRtFYmvB2MjKJUdnugouumc zCO6DLHxMSZnuE27Ee3kaTbk MTBw oVQGiE2taxerp6ozdltfNcHz TEZnONt6JNs6UWFxeQmqBsWq HEZ2OzP3ZXI8pNMxuN8fcQxy bjog uQ0rZ0AdOLWjxkzmQb07pX2h GoQhZlS3XUhpGwu+H2wRFcsp VSnGITdTCG67TP79pLIsz6Q7 bGU9 V5DxSIBivuxuniavrYK7MJYp YIIcpS47vVHcMPodOo0st1X4 k751AMSvAIWcxF51Iu2qwChc MTBw fOSCbM3ftngkv8vxfymrZoKk HDLiLNj0XKq0SYJusQtlLyPe RIG3EsJ0IQU0yKFmdY0dyNet bjog zP2qPes+ARyaKMbrXFo5CWto dGQ+KKXgSNV8hQiyGEtuOTZu vP1uMWElQ3h1AiFcMpW9SRqz O3Bh ITJiujqbKy69gA0qVyBdYhN3 WMsiG1GxbaG0KYNnnLRsVCdd NMJ7J88xi1T3TSHhBGZmFBQ6 dGV4 gL6jxEgoyvsdyGKidVcvdcIf iYynPShrDZzsC038YGFabHyh IfX2ZKjiAPXrXD91LX29cSWk c3R5 nQG0L2RdYUGjjjqbifklbHC0 PEQuIVNkyA47iSNkONurPe1h n3G7t830HNDvFABelG54Wi9i dDog KHMjgQJOxQ7mgncbm4cnlsgv FhSaXMAmOLs8GTq3JGZetWqd QjGoDMM0ExX8EHH0bWHgvF8g bGln aupfqQ1lPvr+QaJtZGwqPW43 US94nPVht2L1gMK1N7YzZHSf mqdjkvatxND8IUXjMXDypK91 cGFk QJwmUz7ai1A1h876HZMsQBJa mB12Sh2voNmjJACsmRUKmN3s khtnz0nbgwhsYdElSOWiNKt9 ZXh0 JQCaoVubUiYdFRA0YnX4EEM1 rRTfnB9shNuwznwqpZ1cVqg+ K2W6nMJ2lRFiaTeuiHF+PC90 cj48 H6YtVvblKrg1RBIpPAC0yIB3 sG3fLCEtZDaqo4Q6nYH3Y2Kp awEzuf1sz4moCWVpCDkhH72l bGFw i5S0NKSbfDF1YILlaCmaCpRm kM38Fdt+OBQtvGwsy5XoHmtv j5mnc3mlaDn7IiHkLQHzftBm aWdu TAB2t6YnKa28H73tBAqmRCBo ATNmZEPrVSSjxEmzab3yfL5x Ii8+RSAbsJS6oKU9fB5cGjOc IiB2 IHabY192SeBozUXjBplnk9nh b4rteIg0PaNmSQIhwfFobPtj UDB6p3SvPw95A6GnpVpzg3Uh Pjx0 ec60gHIdi7D8pSL9B4PkNHAg jpyauMZodAnhSH8lVTJddarx VGSokA4oFRCmJ9h2ApWcMaR9 MGlu N1DvdtF3TTRehNWnROKwmONC mZ9nwifiu0vjjblcKyNkZMIp DBr3SUq9KXXqcAzyFmNdELN9 OyB2 MCG3mPHfsL7isCqgntrnrD5i Oyc+SMh4w7zlgMDnDQ6djDY7 HT61AH02zHXbh1P1sKP8I3On ZGRp riurefgdhTH8FTHmZBZraB49 Im3wsVrrDk8gKSWoMBV3EDIs iIWnY7IayS4sHqMyRXMmXOAx O3Rl gELlTHzvU721GTqaSwX8DAUw wiXuL8DaBUPtvQuuUkD3p6P1 Ls1LTI11WC02FV12eZQwt4A6 bGU9 Z6OyYPNzddxwzxidwAA9WXWv IGIowY00Yk3bzGelMu1xISCo TXG2EHFmxDYeB8NmgS5nOiUe MDAw XIHqI8UamMAkVTtlS244UYzr RbV0LGNssdHyA6AsALXciUzu IvZ0t3H1Fc6YCu86LE60WU45 dGQg a8L1xLA9Z3EjABJwwrjdhuin tZH3TPMyJKMtkF45Fn8ziAeg Lx5cHEFjCGS5ZOYsfYFpE5Du bG9y CgUmVKKgZBIcS6RvrHTsLIhf T573LRvhLvV1DKIqbbTeS7Ss XWZqrBkuNuK4n2E4Pi2FBGmb cjo8 J1KjJwmloIZ+DH88NBFwED05 kQQarUAhe3ggpLb7CuTqUJHa LRR3jCpwEMalf5LuLJBiD90f bGFw q3H5FXWunVaog (more content not included)... Normal [facility] Consent for Treatmenton 07-23 Consent for Treatment [id number]#[id number] F Normal [facility] Erythropoiet Lvlon Erythropoietin (EPO) Qn 51.2 mIU/mL High 2.6-18.5 [facility] Comment on above: Result Comment: inthincel DxI 800 Immunoassay System Values obtained with different assay methods or kits cannot be used interchangeably. Results cannot be interpreted as absolute evidence of the presence or absence of malignant disease. Performed at: [facility] [id number] PhD Susan Cadet Performed By: #### [id number] #### [facility] [address] [place] [id number] Oncology Progress Noteon Oncology Progress Note Chief Complaint Iron Deficiency; going over results, states had infusion last week. Diagnoses 1. 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) Iron deficiency anemia (D50.9: Iron deficiency anemia, unspecified) Ordered: folic acid, 1 mg = 1 tab(s), Oral, Daily, # 90 tab(s), Refills(s) 4, Pharmacy: [facility]/pharmacy #[id number], 161, cm, 08/15/23 11:32:00 EDT, Height/Length Dosing, 106.5, kg, 08/15/23 11:32:00 EDT, Weight Dosing CBC w/ Auto Diff Comprehensive Metabolic Panel Ferritin F[place] [facility] [place] Ref[place] Iron Level Iron Percent Saturation ONC Office Visit 20 Min Transferrin Other iron deficiency anemias (D50.8: Other iron deficiency anemias) Oncological History/ROS/PE/Assessmen t and Plan Morro is a 37yr old female with a history of iron deficiency anemia, asthma, thyroid cyst, low back pain, fatigue, elevated wbc count, spondylosis, elevated CK, elevated glucose, weight gain and shortness of breath. Surgical history includes gastric sleeve, appendectomy, , cholecystectomy, and parotidectomy. Medications include albuterol, docusate, eszopiclone, folic acid, Venofer, lamotrigine, lumateperone, and sertraline. She denies any personal history of cancer. Family cancer history includes her paternal grandmother with ovarian and cervical cancer, her maternal grandmother with lung cancer, and her maternal grandfather with prostate cancer. She is referred by the ER for iron deficiency anemia. Recent labs note hemoglobin 9.4 with low MCV and MCH. Wbc and platelets WNL. Iron saturation 11% with ferritin 99. Folate 6.2, B12 484. Initial Exam 08/15/23: has no energy, is exhausted is craving ice and dirt dyspnea on exertion, can tell when her heart is beating fast has dizziness denies muscle cramps but has restless legs denies n/v/d. Has a little bit of constipation, controlled with colace. Eating and drinking ok. she tried oral iron but could not tolerate this d/t nausea and vomiting. has always had reflux, occasionally will take Tums Her dad has IBS. She does have urgency to go to the bathroom, but no blood. denies black, tarry stools or other bleeding. She does have hemorrhoids but has not noticed any bleeding with these. periods are irregular and light, doesn't go thru many pads/tampons in a day denies fevers, chills, night sweats, or unintentional weight loss is cold a lot and has hair thinning denies any pain anywhere has been breaking out on the back of her head has a thyroid nodule that is being followed has some numbness and tingling in the fronts of her legs denies headaches or other concerns Physical Exam General: Alert and oriented, No acute distress. Respiratory: Respirations are non-labored, Symmetrical chest wall expansion Cardiovascular: Normal rate and rhythm. Gastrointestinal: Soft, Non-tender, no guarding, no tenderness. Musculoskeletal Normal range of motion. Neurologic: Alert, Oriented, Normal sensory, Cranial Nerves II-XII are grossly intact. Cognition and Speech: Oriented, Speech clear and coherent, Functional cognition intact. Psychiatric: Cooperative, Appropriate mood & affect. Integumentary: Warm, Dry, No rash. Impression and Plan Iron deficiency anemia history of gastric sleeve surgery no s/s of bleeding at consult she does not tolerate oral iron supplementation d/t nausea and vomiting Her pcp has scheduled IV Venofer 500mg x2. She received her first dose on 08/11 and will get her next dose on 08/18. She is tolerating well. Her hemoglobin did drop acutely and significantly, concerning for blood loss somewhere. We will send her to GI for further evaluation and consideration for endoscopy. She will follow-up in 8wks with repeat labs to assess response to IV iron repletion and to confirm she saw GI and no further work-up is needed. Follow-up With When Contact Information Jose MAY, Quyen Pozo, ONC [facility] [place] [address] [place] [phone] Additional Instructions: refer to GI to consider endoscopy for iron deficiency anemia.- if none in [place], refer here at [facility] [place] folic acid 1mg daily- send 90 day supply with 4 refills to [facility] cbc, cmp, iron studies, folate in 8wks follow-up in 8wks with [facility] Medications Caplyta 42 mg oral capsule, 42 mg= 1 cap(s), Oral, Daily Colace, 200 mg, Oral, Daily eszopiclone 3 mg Tab, 3 mg= 1 tab(s), Oral, Once a day (at bedtime), PRN folic acid 1 mg Tab, 1 mg= 1 tab(s), Oral, Daily, 4 refills lamotrigine 200 mg Tab, 200 mg= 1 tab(s), Oral, Daily sertraline 100 mg Tab, 100 mg= 1 tab(s), Oral, Daily Sodium Chloride 0.9% IV Susi 100 mL 100 mL, 100 mL, IV Venofer 20 mg/mL Soln-IV, See Instructions Ventolin HFA 90 mcg/inh Aerosol-Adpt, 2 puff(s), Inhalation, q4hr, PRN, 5 refills Vital Signs and Measurements Vital Signs and Measurements This Visit - Last 24 Hours T: 36.9 ?C (Oral) HR: 69 (Peripheral) RR (more content not included)... Normal [facility] CBC w/ Auto Diffon 4 Anisocytosis Ql (Bld) PRESENT Invalid Interpretation Code [facility] Comment on above: Performed By: #### 2 [id number] #### [facility] [address] [place] [address] Basophils/100 WBC (Bld) 0.2 % Normal 0.0-2.0 [facility] Comment on above: Performed By: #### 2 [id number] #### [facility] [address] [place] [address] Basophils/Leukocytes Auto (Bld) [Pure # fraction] 0.0 E9/L Normal 0.0-0.2 [facility] Comment on above: Performed By: #### 2 [id number] #### [facility] [address] [place] [address] Eosinophils (Bld) [#/Vol] 0.0 E9/L Normal 0.0-0.5 [facility] Comment on above: Performed By: #### 2 [id number] #### [facility] [address] [place] [address] Eosinophils/100 WBC (Bld) 0.0 % Normal 0.0-8.0 [facility] Comment on above: Performed By: #### 2 [id number] #### [facility] [address] [place] [address] Erythrocyte distribution width (RBC) [Ratio] 24.6 % High 10.9-14.2 [facility] Comment on above: Performed By: #### 2 [id number] #### [facility] [address] [place] [address] Hematocrit (Bld) [Volume fraction] 30.8 % Low 34.0-46.0 [facility] Comment on above: Performed By: #### 2 [id number] #### [facility] [address] [place] [address] Hemoglobin (Bld) [Mass/Vol] 9.4 g/dL Low 12.0-16.0 [facility] Comment on above: Performed By: #### 2 [id number] #### [facility] [address] [place] [address] Hypochromia Auto Ql (Bld) PRESENT Invalid Interpretation Code [facility] Comment on above: Performed By: #### 2 [id number] #### [facility] [address] [place] [address] Lymphocytes (Bld) [#/Vol] 2.2 E9/L Normal 1.0-4.0 [facility] Comment on above: Performed By: #### 2 [id number] #### [facility] [address] [place] [address] Lymphocytes/100 WBC (Bld) 30.8 % Normal 14.0-50.0 [facility] Comment on above: Performed By: #### 2 [id number] #### [facility] [address] [place] [address] MCH (RBC) [Entitic mass] 22.2 pg Low 27.0-34.0 [facility] Comment on above: Performed By: #### 2 [id number] #### [facility] [address] [place] [address] MCHC (RBC) [Mass/Vol] 30.5 g/dL Low 31.4-36.0 [facility] Comment on above: Performed By: #### 2 [id number] #### [facility] [address] [place] [address] MCV (RBC) [Entitic vol] 72.7 fL Low 80.0-100.0 [facility] Comment on above: Performed By: #### 2 [id number] #### [facility] [address] [place] [address] Monocytes (Bld) [#/Vol] 0.5 E9/L Normal 0.2-1.0 [facility] Comment on above: Performed By: #### 2 [id number] #### [facility] [address] [place] [address] Neutrophils (Bld) [#/Vol] 4.5 E9/L Normal 2.0-7.5 [facility] Comment on above: Performed By: #### 2 [id number] #### [facility] [address] [place] [address] Neutrophils/100 WBC (Bld) 62.3 % Normal 36.0-75.0 [facility] Comment on above: Performed By: #### 2 [id number] #### [facility] [address] [place] [address] Ovalocytes LM Ql (Bld) PRESENT Invalid Interpretation Code [facility] Comment on above: Performed By: #### 2 [id number] #### [facility] [address] [place] [address] Platelet 372.0 E9/L Normal 150.0-500.0 [facility] Comment on above: Performed By: #### 2 [id number] #### [facility] [address] [place] [address] Platelet mean volume (Bld) [Entitic vol] 7.4 fL Normal 6.4-10.8 [facility] Comment on above: Performed By: #### 2 [id number] #### [facility] [address] [place] [address] RBC (Bld) [#/Vol] 4.2 E12/L Low 4.3-5.9 [facility] Comment on above: Performed By: #### 2 [id number] #### [facility] [address] [place] [address] RBC size Nom (Bld) SEE MORPHOLOGY Invalid Interpretation Code [facility] Comment on above: Performed By: #### 2 [id number] #### [facility] [address] [place] [address] WBC corrected for nucl RBC Auto (Bld) [#/Vol] 7.2 E9/L Normal 4.0-11.0 [facility] Comment on above: Result Comment: Resu lts are consistent with previous pathologist review Performed By: #### 2 [id number] #### [facility] [address] [place] [address] CHEMISTRYOrdered By: SYSTEM SYSTEM on 08-12-2023 Albumin [Mass/Vol] 4.5 g/dL Normal 3.3 - 5.0 gm/dL [facility] Albumin/Globulin [Mass ratio] 1.5 {ratio} Normal 1.1 - 2.2 [facility] ALP [Catalytic activity/Vol] 92 [iU]/d Normal 21 - 98 Int._Unit/L [facility] ALT No additional P-5'-P [Catalytic activity/Vol] 10 [iU]/d Normal 6 - 46 Int._Unit/L [facility] Anion gap [Moles/Vol] 12 mmol/L Normal 6 - 16 mEq/L [facility] AST [Catalytic activity/Vol] 19 [iU]/d Normal 5 - 43 Int._Unit/L [facility] Bilirubin [Mass/Vol] 0.4 mg/dL Normal 0.0 - 1 .1 mg/dL [facility] Calcium [Mass/Vol] 9.5 mg/dL Normal 8.9 - 11. 1 mg/dL [facility] Chloride [Moles/Vol] 104 mmol/L Normal 101 - 1 11 mmol/L [facility] CO2 [Moles/Vol] 24 mmol/L Normal 21 - 31 mmol/L [facility] Cobalamin (Vitamin B12) [Mass/Vol] 484 pg/mL Normal 50 - 1500 pg/mL [facility] Creatinine [Mass/Vol] 1.0 mg/dL Normal 0.5 - 1.3 mg/dL [facility] eGFR 74 mL/min/1.73 m2 Normal >=59mL/min / 1.73 m2 [facility] Ferritin [Mass/Vol] 99 ng/mL Normal 11 - 307 ng/mL [facility] Folate [Mass/Vol] 6.2 ng/mL Low >=6.7ng/mL [facility] Globulin (S) [Mass/Vol] 3.0 g/dL Normal 1.4 - 4.0 gm/dL [facility] Glucose [Mass/Vol] 96 mg/dL Normal 55 - 199 mg/dL [facility] Iron [Mass/Vol] 40 ug/dL Normal 35 - 153 mcg/dL [facility] Iron binding capacity [Mass/Vol] 360 ug/dL Normal 250 - 400 mcg/dL [facility] Iron saturation [Mass fraction] 11 % Low 20 - 50 % [facility] Potassium [Moles/Vol] 4.5 mmol/L Normal 3.5 - 5.3 mmol/L [facility] Protein [Mass/Vol] 7.5 g/dL Normal 6.0 - 7.8 gm/dL [facility] Sodium [Moles/Vol] 135 mmol/L Normal 135 - 145 mmol/L [facility] Transferrin [Mass/Vol] 257 mg/dL Normal 200 - 370 mg/dL [facility] Urea nitrogen [Mass/Vol] 18 mg/dL Normal 5 - 21 mg/dL [facility] Urea nitrogen/Creatinine [Mass ratio] 18 mg/mg Normal 10 - 20 [facility] CMPon 08-12-2023 Albumin [Mass/Vol] 4.5 g/dL Normal 3.3-5.0 [facility] Comment on above: Performed By: #### 2 [id number] #### [facility] [address] [place] [address] Albumin/Globulin (S) [Mass conc ratio] 1.5 Normal 1.1-2.2 [facility] Comment on above: Performed By: #### 2 [id number] #### [facility] [address] [place] [address] ALP [Catalytic activity/Vol] 92 Int._Unit/L Normal 21-98 [facility] Comment on above: Performed By: #### 2 [id number] #### [facility] [address] [place] [address] ALT No additional P-5'-P [Catalytic activity/Vol] 10 Int._Unit/L Normal 6-46 [facility] Comment on above: Performed By: #### 2 [id number] #### [facility] [address] [place] [address] Anion gap [Moles/Vol] 12 mmol/L Normal 6-[address] [facility] Comment on above: Performed By: #### 2 [id number] #### [facility] [address] [place] [address] AST [Catalytic activity/Vol] 19 Int._Unit/L Normal 5-43 [facility] Comment on above: Performed By: #### 2 [id number] #### [facility] [address] [place] [address] Bilirubin [Mass/Vol] 0.4 mg/dL Normal 0.0-1.1 [facility] Comment on above: Performed By: #### 2 [id number] #### [facility] [address] [place] [address] Calcium [Mass/Vol] 9.5 mg/dL Normal 8.9-11.1 [facility] Comment on above: Performed By: #### 2 [id number] #### [facility] [address] [place] [address] Chloride [Moles/Vol] 104 mmol/L Normal 101-111 [facility] Comment on above: Performed By: #### 2 [id number] #### [facility] [address] [place] [address] CO2 [Moles/Vol] 24 mmol/L Normal 21-31 [facility] Comment on above: Performed By: #### 2 [id number] #### [facility] [address] [place] [address] Creatinine [Mass/Vol] 1.0 mg/dL Normal 0.5-1.[address] [facility] Comment on above: Performed By: #### 2 [id number] #### [facility] [address] [place] [address] Globulin (S) [Mass/Vol] 3.0 g/dL Normal 1.4-4.0 [facility] Comment on above: Performed By: #### 2 [id number] #### [facility] [address] [place] [address] Glucose [Mass/Vol] 96 mg/dL Normal 55-199 [facility] Comment on above: Performed By: #### 2 [id number] #### [facility] [address] [place] [address] Potassium [Moles/Vol] 4.5 mmol/L Normal 3.5-5.[address] [facility] Comment on above: Performed By: #### 2 [id number] #### [facility] [address] [place] [address] Protein [Mass/Vol] 7.5 g/dL Normal 6.0-7.8 [facility] Comment on above: Performed By: #### 2 [id number] #### [facility] [address] [place] [address] Sodium [Moles/Vol] 135 mmol/L Normal 135-145 [facility] Comment on above: Performed By: #### 2 [id number] #### [facility] [address] [place] [address] Urea nitrogen [Mass/Vol] 18 mg/dL Normal 5-21 [facility] Comment on above: Performed By: #### 2 [id number] #### [facility] [address] [place] [address] Urea nitrogen/Creatinine [Mass ratio] 18 No Units Normal 10-20 [facility] Comment on above: Performed By: #### 2 [id number] #### [facility] [address] [place] [address] Consent for Treatmenton 07-23 Consent for Treatment [id number] F Normal [facility] Ferritinon 08-12-2023 Ferritin [Mass/Vol] 99 ng/mL Normal 11-[address] [facility] Comment on above: Performed By: #### 2 [id number] #### [facility] [address] [place] [address] Folateon 08-12-2023 Folate [Mass/Vol] 6.2 ng/mL Low >=6.7 [facility] Comment on above: Performed By: #### 2 [id number] #### [facility] [address] [place] [address] HEMATOLOGYOrdered By: SYSTEM SYSTEM on 08-12-2023 Anisocytosis Ql (Bld) PRESENT *NA* (08/12/23 6:37 AM) Invalid Interpretation Code [facility] Basophils/100 WBC (Bld) 0.2 % Normal 0.0 - 2.0 % [facility] Basophils/Leukocytes Auto (Bld) [Pure # fraction] 0.0 E9/L Normal 0.0 - 0.2 E9/L [facility] Eosinophils (Bld) [#/Vol] 0.0 E9/L Normal 0.0 - 0.5 E9/L [facility] Eosinophils/100 WBC (Bld) 0.0 % Normal 0.0 - 8.0 % [facility] Erythrocyte distribution width (RBC) [Ratio] 24.6 % High 10.9 - 14.2 % [facility] Hematocrit (Bld) [Volume fraction] 30.8 % Low 34.0 - 46.0 % [facility] Hemoglobin (Bld) [Mass/Vol] 9.4 g/dL Low 12.0 - 16.0 gm/dL [facility] Hypochromia Auto Ql (Bld) PRESENT *NA* (08/12/23 6:37 AM) Invalid Interpretation Code [facility] Lymphocytes (Bld) [#/Vol] 2.2 E9/L Normal 1.0 - 4.0 E9/L [facility] Lymphocytes/100 WBC (Bld) 30.8 % Normal 14.0 - 50.0 % [facility] MCH (RBC) [Entitic mass] 22.2 pg Low 27. 0 - 34.0 pg [facility] MCHC (RBC) [Mass/Vol] 30.5 g/dL Low 31.4 - 36.0 gm/dL [facility] MCV (RBC) [Entitic vol] 72.7 fL Low 80.0 - 100.0 fL [facility] Monocytes (Bld) [#/Vol] 0.5 E9/L Normal 0.2 - 1.0 E9/L [facility] Monocytes/100 WBC (Bld) 6.7 % Normal 4.0 - 14.0 % [facility] Neutrophils (Bld) [#/Vol] 4.5 E9/L Normal 2.0 - 7.5 E9/L [facility] Neutrophils/100 WBC (Bld) 62.3 % Normal 36.0 - 75.0 % [facility] Ovalocytes LM Ql (Bld) PRESENT *NA* (08/12/23 6:37 AM) Invalid Interpretation Code [facility] Platelet 372.0 E9/L Normal 150.0 - 500.0 E9/L [facility] Platelet mean volume (Bld) [Entitic vol] 7.4 fL Normal 6.4 - 10.8 fL [facility] RBC (Bld) [#/Vol] 4.2 E12/L Low 4.3 - 5.9 E12/L [facility] RBC size Nom (Bld) SEE MORPHOLOGY *NA* (08/12/23 6:37 AM) Invalid Interpretation Code [facility] Reticulocytes/100 RBC (Bld) 5.1 % High 0.5 - 2.2 % [facility] WBC corrected for nucl RBC Auto (Bld) [#/Vol] 7.2 E9/L Normal 4.0 - 11.0 E9/L [facility] Comment on above: Result Comment: Resu lts are consistent with previous pathologist review Ironon 08-12-2023 Iron [Mass/Vol] 40 microgram/dL Normal 35-153 [facility] Comment on above: Performed By: #### 2 [id number] #### [facility] [address] [place] [address] Iron Saturationon 08-12-2023 Iron binding capacity [Mass/Vol] 360 microgram/dL Normal 250-400 [facility] Comment on above: Performed By: #### 2 [id number] #### [facility] [address] [place] [address] Iron saturation [Mass fraction] 11 % Low 20-50 [facility] Comment on above: Performed By: #### 2 [id number] #### [facility] [address] [place] [address] Retic Counton 08-12-2023 Reticulocytes/100 RBC (Bld) 5.1 % High 0.5-2.2 [facility] Comment on above: Performed By: #### 2 [id number] #### [facility] [address] [place] [address] Transferrinon 08-12-2023 Transferrin [Mass/Vol] 257 mg/dL Normal 200-370 [facility] Comment on above: Performed By: #### 2 [id number] #### [facility] [address] [place] [address] Vit B12on 08-12-2023 Cobalamin (Vitamin B12) [Mass/Vol] 484 pg/mL Normal 50-1500 [facility] Comment on above: Performed By: #### 2 [id number] #### [facility] [address] [place] [address] eGFRon 08-12-2023 eGFR 74 mL/min/1.73 m2 Normal >=59 [facility] Comment on above: Order Comment: Order added by Discern Expert. Performed By: #### 1 [id number] #### [facility] [address] [place] [address] Coding Summary.on 08-11-2023 Coding Summary. ACWTIrsx32LCq1sNf+PG hlYW Q+AW3HZCSdB06bzRSkaQ7zW4 NMTElOSywgQVBQTElOSyIgbm NtAS6qxMSmBHCx IC8+DG2bILZdXclceNNeg8V7 pFS5N44ufp2vGKbynYY7QTFk OvGhwwrjm0frjQf1WGsbSyft OyBt PROgqA44LKB0fS96Kf34rIOi rQKfa7jrmQw4KbCsRGKfFXJ7 fHgiOZwuj4FbNRXgB21kkJQl c2U6 ENVsvXxsyYDcWbFwuCJ4lY5k GFapamsqn4jldzbmMbb7db33 tVCae7G4kNC9Z7EkyiK7JAIp bGQg TnnleYYFgH3ixkgyb7izqdlg SvBeACRiFQk3ZJg7BRChoTnh NdAdRS54WVD9SLGomaUpV7Ny LWFs rVzhEqK7l5G5Sb6AW5JFGkph K9JHPACNFUxxpYT+EM51yi83 K3TqGwibZta6OTZnSPP8xTR4 aD0n EXAtTHvuy6U2eCW7M4EbywDg pf4cm7omAJHmRFqeT62mkARd a4T2GOBrsZT4WHGslUhlZfUm aG93 Oyc+RRZdhHlmt6RhEfhtr9js b4mgwWn3HhatNDDtwpUwlTxy TLU4v4HvJx4tLEZdwJN3jHL5 aD0i NcYnEoP0ICfpB116SmMfiOKh EpjpG33lS3SjlDG+PHRyPjx0 ZXBhdZjrVO1iE7XoYFCyvgfl bGVm aLuyWM3fPXDbfeziIPPyaE0l AXXvW3y8TfZyZlC5FZvyY5Fu GQSwcvnhJd05sC5zJlCzFyY2 MGlu X5RiyvX2NZQhnRXmZGsuOKI7 H51lr3X9MQBpRANtZBT6vCF3 kK6mtOneynsyiNGrlMhxduRt dGlj DCmrOSkzD169IZEkdEqaHtHw ZGluZyBEYXRlOiAgMDYvMjAv MjAyNDwvdGQ+HGInDXU5cQxl PSAn lDKuMObiQw2bhRmviXlyWL6j IBYovzccPYCghX8sJDKveGRf jHowWK6vEFHadghgn633GxJn MHB0 DYQrfGPqK7SpxA7wNpJtMSAu KPHhB2UwfQGpMVcaQ667MVrw BqB9AJUxqwEsP1YuDWYqlYfk OiB0 r0S7Wt7Xk9LwjqabZ8XgaZIa TxFuLoxfCMl2E4JwPebmpHM+ ST75WIWoUL48TJh9MPX0oMml PSdi HLWmS1QygM9fWsNuIFWyAPDb Oyc+PHRhYmxlIHdpZHRoPScx QGEwPyZtbLasKQ7nBv7aXOTl LWNv nXhoeDEiMhMij4ffTIVyPTpi TD3jmOxiN3QhnFQ9RXRkt7u1 Rr68Z83jO6TxyJU+PGNvbCB3 aWR0 sK9bArFvQbT4PBkpB605XrAq bZOsPrdpi2mvg1kqgDc5IyL1 KMJqayNmeYxeZWF8h4BwRq57 Y29s IHdpZHRoPSIxNSUiIHZhbGln ob1tnJ5lVf0+GUXyqSM5fOA0 pV0mRxVjPfJ4KTdkA822LjTf cCIv Fxalc3bvh9fhmAj2AtYnNJRb ujSfiRntFFU3p6OhMu10W9Gg rKjlq5CtKgb9ah98mXQud3G2 bGU9 V7BmEAIxnjjxpTRoeNjzKH2p JRByqnjmQNBbpC2tRKVmX4r6 QfFkGrH9XGwqP7UlowY4MKDu bGQg FLOmxDWZdI8fxtrdu4euciay UpUsRBDdSOm5ZDz3CYTvvRty RiCpJMV2JoB0HZI9mHRrgG1a bGln yzmrcA0wTpa+MYE6bPUggDTZ FC1gVxzakTI+QMBaQUJ1iZfc TCxxRBJqgP0uWEHcV7v0PgGj LjA1 IEtrP7NyznQ2IORmpZFaRCEd vYCKpH9eoizmi2fuzezlNcFj IAIcGUv0OEs8GCCcuNwuTtBy ZWZ0 TtZ9DHQ6tZQqgQ2ypTwtfmec mX8vGcc+KhnbiQpoGBG9HRo6 L8FbSsy8CDUhaMkjRE2vxEBm ZGlu Ep0qbHluyUxgTQ6lTJJiaipv z078CtKmd2ndOSCoqIFwEBcw ADM3L91dc0Z8OOOvOLEmPKQ3 dGV4 zN6rvRqvtgtcuXFidSufasFu qOtuWYldJSiyR956SUHkdWrc DfDoYJw2Y2MmPol3NOSplAmn ZT0n tZTnRPsuIc8fiRrxgBjcMH9h CHJflnciq734WbRhw7jeFNAh kFOnUDspLAJ1H05vt2C7ZXVz MDAw YJO4pNA4qS3xwFyeutbmtKNo eCosrfGmoCtjENltQUbsT226 RTIasGqbUfIfeJe3G1TiKpw8 ZCBz cPxgWR0pzWHwTYemPx9wdGgj iOmbNU5cQHMyzxylg400FgWx c2jfJGKuoCFbKDkrOEM4V12p b3I6 KXIwPDWoTII0eUO2dF0ypDiu bjogbGVmdDsgdmVydGljYWwt ORqcB486VSCttXbsAhBhkRim bnQg FXgjSLo5Q2DeYoevqKT+PC90 PDYpAH51lWLnjGXsr4drmFv0 XcTiUDNnDXN4yJtyFNuik2Ov ZXIt T94ecVSpm1K8FYXvwLvzuYUy TgEafMV6nX6fHXrzgojib6os yoxtWlxby6bjaq97nO26T93p IHdp WYXvVOQoPQUeFCLkhDlnfn6v iF9tYw8+ROVgiKH7eXJ4dK5e FHNvYyN4TMqkZ702ViShoLKn Pjxj k3hmh5qgbYw1JjL1JXNywqKw iWofBAM3s1CiRi56W93pFJcn NGXoFBYtLORuDPCgrYbcio5k dG9w Ii8+XAYxnMU6nUF4qF2eUuHt VtQ1GPsrD993EfRpqQOyMqvk O10zJ4NoaAK+GDMqRuq0ULAg dHls IV6bbZVbTUcgOh6sRIF4GiLx TzLtHCynT9EiFQTyuxfukprs nBR8AVDkIQMslL29Hq7smGus MTBw cEFRwD5rzkmll9pzzlkjAlTp XVCzSVy1BTr4EQIzjUwxEsNx MTC5JfI4VOO0hPMkhJ3jsCjb bjog bT4tM5BlFVGbhvidIs90xU5m JpBdSjS9BGqwGvs+E0vHJinf PUuATVrYRO23NC45mXPuu6I2 bGU9 S7FdSCEydqgvleiegJL7TIGf VIIbmO93pWPdPLooEj0ly5L7 f375FKZgMLRunK18Vg1rpGhb MTBw qIIJlH1kaocrx6geqvciFhWc ETWbDGn3BJw2DXLunLzfPxTl CTS8EcB1SGQ7xYOjjW3tcKoi bjog bI9yBza+NZpxRZqtNAo7BPtx dGQ+VIDdOWN6zDsePIdaNTGc gP1aVQHcQ9o5SuNaTkZ6ADfd O3Bh BNVeczufCl21rH5cHoRvQoA7 KMewU2PqwlK3IXKkbMZxWNva SWD2R61mq5H2VBOhENMbZFL6 dGV4 jR8otXuiceuyxJTzcRqeeyAt xPuxVFodZNacJ346FMAjtVrn PsB5UTtoOAYhSF25LF89mDQb c3R5 oJP8D1UaLQQrkrcbdvamoAB6 BNIjVHAdsJ63sROqNWbkHu7f u6R2n411AQJxXVWdrK27Cv5l dDog SUNshJQHzS5nudwpt7qdddli ExOjFGFrSDn0NYz0WUEnyYwt GkKyGNA3MzG0RTW7jPOjjW0l bGln tnuctB7iOpi+SuRvMIkoTN84 RB43vCUsq6N2yJQ0U4SaJRCx ycmoaqlfyUI7KBTkKGAhuC80 cGFk UPiaZr5sa7B9q470ABLoBPVh cH46Vp3quXijLBMfvGQPpM5q owywc5ucwgcmCxPmKNLqTSb4 ZXh0 TLOkiAvsQgDdUKK2KhX0ZFN8 dXVbfX7tiErgusvcwH2rOhu+ FkEjuKAzbQ3dFM24MJ54I4Xh Pjwv dGFibGU+PHRhYmxlIHdpZHRo DNujISWaRfKivGdrLF6dEe7h NSPfMMNivBaxmKRvEbNdj3lo YXBz ADroIZ5esKpaS2KgoEL5UHYi v7t2Bw31H99gE2ZjlJL+PGNv zGG7vZK2zD7gZlLnWyE7KRki Z249 UuHscKDuScuni1bta5agcEz5 UnKmYKTtomUckWhwCKF6o8Ud Js28C56cLNqfBVSuZLCbNJAv IHZh rXmbhj4fbF5gRo5+PGNvbCB3 sKD7gA0iZaDoFvR0RYkkS925 JvVpwEIoAdadS64wW3UmaSL+ PHRy Rrg4ZQBicYidUY5gbXDbCNow Yg5dFOJ4KeMcPbWyXIykY4Ap MCCvtcpmcxmzoBO1YRFxQREw aW47 Bl8mqAvbYo5aWUAfPIN7IKUa wWTdZ0GwwQ7mGnWbNGRgHYAk M6BivKGhXIchI031DSpeWbV7 IHZl cdLfW0GoGEVtyOqdDqQ7z0L5 Sw6GkCyfpXCgCF0sYsZqFDo4 X9TmCwz9HPBvyZaeDI0mmFSu ZGlu Nr3trNlvhVorUH1uLIWoaxfx i256BfHbv8reOGZvuYZnERxr RWQ5I00jh5Y5LWStRESbPPF2 dGV4 nH5sxUutypjbiTAdwGspwkRl lAqsRQhoCRacX756WQSuqDpf SlIUEsm0E8YwMkj7JVPydMqo ZT0n cKYjLPasPz5xcSlzaVenUC2o IRLqshryf961DcHwk4fmNAEf wRMoAQvoHLU4W24cv2S3CEPz MDAw FFR3oKK7lQ3pjWkamzjviRGc pSrxzyTglCzpMOkgETovR412 YCYckHnpFv9JRln4N6PlFzk3 ZCBz jDltVC8yuOZrVAblFx3cgRfx xVfdSG1eCAMvwpldj751YfFi z6mbJKDijAYzUPdxBVL4V65b b3I6 LPLaERCvQON4bQB1wS7fpIkt bjogbGVmdDsgdmVydGljYWwt KUmrN677CSBxmQtuBeYxlAFf Ojwv dGQ+VI45if14Z2ErOmhaEdr3 YVLlZSR6zDY2iF1jVFUyEDwk a7L7iWL5P8IssdEkpi6xu5gb YXBz AIyoU87aiNPne (more content not included)... Normal [facility] Coding Summary.on 08-10-2023 Coding Summary. SWDBVoqq45YBk9wMe+PG hlYW Q+ER6MPVIbQ86nqOAaoL7xG2 NMTElOSywgQVBQTElOSyIgbm OoMM1qnWEtTUCh IC8+FQ1bVQKhGqiyvVWmz3P0 gRK5Z56iwc8yZZavtZL0CHIc RmFqwgfrf5xrnXk6XSyaIohu OyBt DLLkqK35GXC8mV67An09oLBh nNVwu4paaKn5KnGwUIWmBXD0 sBmdKNmzp2ExHJPlY30mcZIn c2U6 WCYdpOibbCJoLpUooCB4dA0m KVrunrowa1wadeldMff9ht95 gRKge4X5kGA5F8ScoaE7FJBd bGQg WsikpUQMkK5ygunid4vwpdye QsTiJXJnOPi2RJm1PPHlcZqe UnGdQL80SOI4POJqfaTsL2Xw LWFs mYccLrZ3e4B0Zf9WN0XBQfrq C3UBYMSLKLwcuYT+CN10cl73 P3MfDxoaYgg4ZTVeMRM0jXB4 aD0n QWTyLSgvt2F6yJY6X9PsvjTi ok3pv7dnCGIbITvdX60xmRVh e5L7PRAzfWN2NZFsuPeuGtBx aG93 Oyc+EPVljJpte8VqUgapy9hx t4vmkKa0JlfbQBAxspHlrQcj ATF4z2DaYq4aNCVnjLX9zNF1 aD0i DbIjGiH1QRkxY827IvMxuHLl FejxG30gF8VirPP+PHRyPjx0 SSXdpWalVF1vV2JhGHCdkvck bGVm rFqfPY5nZSTdhmugKNEwnF6t QDZrB1p5OeRcZyH9JWdmU9Sf FXMhyfbqQs19qQ5hRqNeBpQ8 MGlu T2AbncM2NKDgqGObJExsHHO4 L66cd4E8BZGaNYApTNH5sHM8 rR9vrSzekxsqoJTmcSqdzdHl dGlj SBzkDKlwH048MZQjgIzgLrRg ZGluZyBEYXRlOiAgMDYvMTkv MjAyNDwvdGQ+QPTpKBK8nLpa PSAn mPLyFIxsHh8vlIvagRrtOY7u JDAdoaucBZZfaW1tWOIrmLLk fXbiTM3cJJTvrxpom427JiFx MHB0 TBMxoFNmS7YafF4xCySdMUTl BILaG8KrkVYaQDlkO300XQek QfL8LWKzbqKjW5UxCNJnrKdn OiB0 u0E3Zs6Se5NjpmkhF6HxbDYj WqKfQlqfNAy6L6EtCwmfjGH+ CG23VWOlJQ90KOb8MCG1oIcp PSdi XGDeD5GvgQ1gUuMeXGJhHXTr Oyc+PHRhYmxlIHdpZHRoPScx UKIhMmOtxUjqYP9fQj2xLVKc LWNv bJgadZKnSuTep9faUSXfEGbg QT6rgRgqT9AatJH8UYVit1i7 Sz43N85hV4VicVT+PGNvbCB3 aWR0 zR4mGzBfBeZ2MCuqZ667QoYg hYNwJtvzn6mox7pbbEn4EwE5 ZWGisoGhzAezMFZ4m6FjDd61 Y29s IHdpZHRoPSIxNSUiIHZhbGln lv5vqX1gKe7+ERIemUZ8iRQ2 nX5gGgRvYbJ8FEwuH519GnOc cCIv Sqzzi9nxu9rpiZm3DcEkHKMo leZksLnbCNJ4s0OrKk16S1Xb rAplv3PaHen0xj42tXQua4Q7 bGU9 W9NqNXHcrmawcBOrbAtfZT8t EPXziaqkAWHmdB6fOMEsC4p0 OwNlZjX9NCryS4GqjyQ3WBHz bGQg LXAklIFOuI4bgrmiv6zfalqe HiUsGFUwFSg9DAt2IDKzwZtl HjNpEWL9RaN1PMC6yUHqxF5i bGln ysjzlF4tKai+PQW4xTVemDWS AN4xXwpleOZ+QMBfUAM4wBue LUwqLLOtdX5yRNKaT9r7AcCz LjA1 ELzdI9GtbnO1WEXqdXVyJPWp iFQWvM7jiivbn2fumfluYzTg JYIsHJt0GBz4WWDdgGmgGbFy ZWZ0 DnF9SWG0vPLfkG0hqRshnxkg wT1vXpa+QcepeAdhRNQ8NQl6 A2AyYzx1UWPwhHgzFJ6fhYWw ZGlu Nd6nwOrksSapBQ1jTMQmnfas c586ZrNka5yvRIUcpUEuUJws THN3B33xv1V8WFGcMYVfELX5 dGV4 iI5emYkazrynqJYgiQnjbbUm eTfxWBkyXFlvD182WLJtzDjt RfFvIQj5M2PuKoz1PVUblIlx ZT0n fTOjDMypQl4tyOxfuFoaWL8j HJEupxfme717SaUda0yzMDJt xJXoQYmiIKG9O67au6P1QJKi MDAw PIS4rUQ7bG1boJutqvszsRSk bAnfhcCvsUvnEMxiFNzbA394 GYVxkJrzPxRxzUr7C3HcVeb0 ZCBz iJugWN7zaYDuFWloSu7ihRrx aYjtXF4aTJHwbqwal067VsXb m0kxTRRhtKPhPZurHPM9V28d b3I6 YYXsQXBcFTZ2oOB1qQ1hwOdr bjogbGVmdDsgdmVydGljYWwt IKrpO189BHCgjGuuIhNgtTop bnQg JEpuCMs4U6RgSzwonVK+PC90 IULxKS43tDRjfMCla0kqxYl4 YiJhSJHfVIY8mEulDHwro7Oo ZXIt W97cpAAjf6F5YGDevSfznYVp JmLshXR0qF7sIJwsuidsf8sx ojsrGqlsx5zylr10cT63M63i IHdp ERBwKFZcMZOhWMNnvJmyiv0d bQ4hWi8+MFDrnLR8mDQ2tO2o ALSkEhZ6IQfkY124GhJpnGPr Pjxj r3omf9bdbRs9ShI4IERwbsVf vWzbJGC5f9TiYb71H48vUXsc MXNrFKZaGSOqCYSfnCjrno8r dG9w Ii8+HFIlfOO2wWO7pP6bSaIp TzY1CKgeM791MvHseMYwAref G33xA0IwbME+KSLuDgv9HVSl dHls TA2dxKJmIGaeHl1bTHV2ZmHi LbYfHWfmO6LrRVOthlwdxbmd uUK6TRElLEElpH43Wh7jeBka MTBw wSGRkF0wxrmyw7jqrcfkOzRv YHGuABe4PGu7TBTqwGlcTeEu GOR4TbB0MVO9tYJpkW0oxLia bjog zY7fR2MsLDEqhvsgFo29eM9c GxWaFzZ8LDrnVwo+T9eTJcbx RAmYQPeOII33UK52bYGwm5R0 bGU9 I3FlCJAhjtgrtygscCM9JYIr NXWyfG89gGOuJIvfEb7pl8A4 h497DLCfPQCuqQ62Qd0txIvt MTBw aGDHyF4yfctuz1iddnydFxWz YNVzFCh2VOt3ONSzpYjlUkDf REA3LqX5MOA1nEOclJ2frEhn bjog rB5rEgz+XQsqJJuqUDp8LEum dGQ+PHCzRFG5cUncKKmiCHSf oE4vCBAbM2a1XoAnGrR9HRei O3Bh SFYpigkeQk28jL8vHrHjTkI8 LFnwA5ZlzdR0RUEkpEXzRExl LFK5O73fh2B5KASdRCZdRPB3 dGV4 wQ4xhLwmazgimSLzfTrrnaDr oPllFNwfVYjaI627HLVhhIpr KnP4KApiHDWeEZ77SP62cFIg c3R5 aXB8J7IqJYDcafudloymbFJ2 QPNxOHWhiL00uCFdCGawVi4j v5I8w573WVTkHONcrX72Wy7t dDog GJTeyGGRuB3guukxl6mbszsg AwWxXIOyCKd3OWw0SWKkeAza MzRzTHB9JcK4WXA6xHRdtC1s bGln oayvrT1vHbn+QxJxIKibKV51 BZ28lPOpb0W2iEJ9S8RkZRHt sjutxqvqiZH0CPKvQOWbpH09 cGFk MAqcId7xe2P8o283JNFiDSDz lH53Ty6voGmmFNQzuLLLmN6z vinmp0pgtfttZcMcWUJmMEc6 ZXh0 ZAFqkIucGzKgHJZ2JsO2BVM0 tAJupQ3ykPrpbmhnsO9iHvp+ ATOlFORxw5Zew8KpPM73PZ82 L3Ry PjwvdGFibGU+PHRhYmxlIHdp HYWhYBfxWUWvOmEpsEwmIM4b Mf4eGWXjTRZhhJexeAOwRaHw b2xs ZDMpLSxwQI6voTnuD2VsyHU8 IHIek9y9Au90O32dG6MxqOG+ EQLytGN7hLP1vX4hNqRiLyU7 YWxp K139CyCrzPWiZwanv4enu9eu kGa1HlIqVFSfsnClmNweBDU8 z6HaDz47V04aBEkbKQYzFAKr MCUi IKXyhIoima3trH3nZo7+PGNv wDB6cHF1fQ9dSqPePlV4DKhs Z624PmMveMBmTwezH74qA8Cq dXA+ VWXjWyt8RTMtvStbVF7jwPRu OKdnYu2aBRX2GdTuGcUhBDrl F6FaDNRylxchaywwwNM8VQBm MDUw bW55Cw0uwXdbSt0wGKFwQMP6 IEXuaFOnI6XhiT5nRzWjOKYs ZPKzU2JcnBCxUWtxT598APyv ZnQ7 ASLzgfCxH3TzRESdaOgaEiL4 l8T3Bo2AhWpinSZjRD6hOcIj FAu8J3NiWaj2NDXndTcgJK9e cGFk IDprPz4gtFebuIkySX5vZEUu edhop958GqBbz8nvQGIjoUVw PYroXDA7U70cc5B3FLBkYLPe MDA7 vOE3vA2vxQarmlxsbDXwmSkw wtQqeUssQFteFHwpK302ZAWi aBkfLrGOPgv4J8OpWzt3TGZi dHls IB8rhELjRZdaDw1acOiiaWog VD2ySPWpmwlvg524FxFui0eg WSLniCAhKHmuSPG9F77wo9W5 ICMw VLSnHHP7oYI8iM8kpEjewjbc bGVmdDsgdmVydGljYWwtYWxp P408YAXlmPukVj8GYhr2Z4Wi Pjx0 DDNvxNiiDK7zhQErLQszFd8k tEusnXcfKV9tCPMthxboh214 AcUau6kiAMEljRPlHPgrHMG6 Y29s w3V6WVSuXQAtJTX9dUY2nA1j bGlnbjogbGVmdDsgdmVydGlj GZcgDMdvM775UQWxsTvqAdPx eWVy OjwvdGQ+KG05dn36F9ZhIkfa Jgd1EFAaYZC8wJN5oP4rVLRy RHxay9I7yYQ3P0CzjeXmdc1h b2xs RDEoFStgM35jm (more content not included)... Normal [facility] Consent for Treatmenton 07-22 Consent for Treatment [id number] F [facility] Path. Reviewon 08-05-2023 Path Review Peripheral Blood Smear: Invalid Interpretation Code [facility] Comment on above: Order Comment: Order added by Discern Expert Performed By: #### 1 [id number] #### [facility] [address] [place] [address] Physician Orderon 08-04-2023 Physician Order [id number] IFF Normal [facility] BB Draw & Holdon 08-03-2023 BB D&H Sample drawn for Blo od Ba Normal [facility] Comment on above: Performed By: #### 1 [id number] #### [facility] [address] [place] [address] BMPon 08-03-2023 Anion gap [Moles/Vol] 11 mmol/L Normal 6-[address] [facility] Comment on above: Performed By: #### 2 [id number] #### [facility] [address] [place] [address] Calcium [Mass/Vol] 9.1 mg/dL Normal 8.9-11.1 [facility] Comment on above: Performed By: #### 2 [id number] #### [facility] [address] [place] [address] Chloride [Moles/Vol] 105 mmol/L Normal 101-111 [facility] Comment on above: Performed By: #### 2 [id number] #### [facility] [address] [place] [address] CO2 [Moles/Vol] 26 mmol/L Normal 21-31 [facility] Comment on above: Performed By: #### 2 [id number] #### [facility] [address] [place] [address] Creatinine [Mass/Vol] 1.0 mg/dL Normal 0.5-1.[address] [facility] Comment on above: Performed By: #### 2 [id number] #### [facility] [address] [place] [address] Glucose [Mass/Vol] 109 mg/dL Normal 55-199 [facility] Comment on above: Performed By: #### 2 [id number] #### [facility] [address] [place] [address] Potassium [Moles/Vol] 3.9 mmol/L Normal 3.5-5.[address] [facility] Comment on above: Performed By: #### 2 [id number] #### [facility] [address] [place] [address] Sodium [Moles/Vol] 138 mmol/L Normal 135-145 [facility] Comment on above: Performed By: #### 2 [id number] #### [facility] [address] [place] [address] Urea nitrogen [Mass/Vol] 16 mg/dL Normal 5-21 [facility] Comment on above: Performed By: #### 2 [id number] #### [facility] [address] [place] [address] Urea nitrogen/Creatinine [Mass ratio] 16 No Units Normal 10-20 [facility] Comment on above: Performed By: #### 2 [id number] #### [facility] [address] [place] [address] BNPon 4 Natriuretic peptide B (Bld) [Mass/Vol] 20 pg/mL Normal 5-80 [facility] Comment on above: Performed By: #### 1 [id number] #### [facility] [address] [place] [address] CBC w/ Auto Diffon 4 Anisocytosis Ql (Bld) PRESENT Invalid Interpretation Code [facility] Comment on above: Performed By: #### 2 [id number] #### [facility] [address] [place] [address] Basophils/100 WBC (Bld) 0.2 % Normal 0.0-2.0 [facility] Comment on above: Performed By: #### 2 [id number] #### [facility] [address] [place] [address] Basophils/Leukocytes Auto (Bld) [Pure # fraction] 0.0 E9/L Normal 0.0-0.2 [facility] Comment on above: Performed By: #### 2 [id number] #### [facility] [address] [place] [address] Eosinophils (Bld) [#/Vol] 0.0 E9/L Normal 0.0-0.5 [facility] Comment on above: Performed By: #### 2 [id number] #### [facility] [address] [place] [address] Eosinophils/100 WBC (Bld) 0.0 % Normal 0.0-8.0 [facility] Comment on above: Performed By: #### 2 [id number] #### [facility] [address] [place] [address] Erythrocyte distribution width (RBC) [Ratio] 19.5 % High 10.9-14.2 [facility] Comment on above: Performed By: #### 2 [id number] #### [facility] [address] [place] [address] Hematocrit (Bld) [Volume fraction] 24.2 % Low 34.0-46.0 [facility] Comment on above: Performed By: #### 2 [id number] #### [facility] [address] [place] [address] Hemoglobin (Bld) [Mass/Vol] 7.3 g/dL Low 12.0-16.0 [facility] Comment on above: Performed By: #### 2 [id number] #### [facility] [address] [place] [address] Hypochromia Auto Ql (Bld) PRESENT Invalid Interpretation Code [facility] Comment on above: Performed By: #### 2 [id number] #### [facility] [address] [place] [address] Lymphocytes (Bld) [#/Vol] 2.0 E9/L Normal 1.0-4.0 [facility] Comment on above: Performed By: #### 2 [id number] #### [facility] [address] [place] [address] Lymphocytes/100 WBC (Bld) 32.5 % Normal 14.0-50.0 [facility] Comment on above: Performed By: #### 2 [id number] #### [facility] [address] [place] [address] MCH (RBC) [Entitic mass] 20.5 pg Low 27.0-34.0 [facility] Comment on above: Performed By: #### 2 [id number] #### [facility] [address] [place] [address] MCHC (RBC) [Mass/Vol] 30.2 g/dL Low 31.4-36.0 [facility] Comment on above: Performed By: #### 2 [id number] #### [facility] [address] [place] [address] MCV (RBC) [Entitic vol] 67.8 fL Low 80.0-100.0 F [facility] Comment on above: Performed By: #### 2 [id number] #### [facility] [address] [place] [address] Microcytes Ql (Bld) PRESENT Invalid Interpretation Code [facility] Comment on above: Performed By: #### 2 [id number] #### [facility] [address] [place] [address] Monocytes (Bld) [#/Vol] 0.5 E9/L Normal 0.2-1.0 [facility] Comment on above: Performed By: #### 2 958008 #### [facility] [address] [place] [address] Neutrophils (Bld) [#/Vol] 3.7 E9/L Normal 2.0-7.5 [facility] Comment on above: Performed By: #### 2 [id number] #### [facility] [address] [place] [address] Neutrophils/100 WBC (Bld) 59.4 % Normal 36.0-75.0 [facility] Comment on above: Performed By: #### 2 [id number] #### [facility] [address] [place] [address] Platelet mean volume (Bld) [Entitic vol] 7.5 fL Normal 6.4-10.8 [facility] Comment on above: Performed By: #### 2 [id number] #### [facility] [address] [place] [address] Platelets (Bld) [#/Vol] 342.0 E9/L Normal 150.0-500.0 [facility] Comment on above: Performed By: #### 2 [id number] #### [facility] [address] [place] [address] RBC (Bld) [#/Vol] 3.6 E12/L Low 4.3-5.9 [facility] Comment on above: Performed By: #### 2 [id number] #### [facility] [address] [place] [address] RBC size Nom (Bld) SEE MORPHOLOGY Invalid Interpretation Code [facility] Comment on above: Performed By: #### 2 [id number] #### [facility] [address] [place] [address] Schistocytes LM Ql (Bld) PRESENT Invalid Interpretation Code [facility] Comment on above: Performed By: #### 2 [id number] #### [facility] [address] [place] [address] WBC corrected for nucl RBC Auto (Bld) [#/Vol] 6.3 E9/L Normal 4.0-11.0 [facility] Comment on above: Performed By: #### 2 [id number] #### [facility] [address] [place], [place] [id number] CHEMISTRYOrdered By: SYSTEM SYSTEM on 08-03-2023 Troponin HS pg/mL Low 10.10 - 27.10 pg/mL [facility] Comment on above: Interpretive Data: T he 95% CI (Confidence Interval) PPV (Positive Predictive Value) for myocardial infarction in females is 38 pg/mL, in males 51 pg/mL. The results should be used in conjunction with clinical conditions of myocardial infarction. (Access High Sensitivity Troponin I Instructions For Use, Sandra Italo, September 2017) Albumin [Mass/Vol] 4.3 g/dL Normal 3.3 - 5.0 gm/dL [facility] Albumin/Globulin [Mass ratio] 1.7 {ratio} Normal 1.1 - 2.2 [facility] ALP [Catalytic activity/Vol] 81 [iU]/d Normal 21 - 98 Int._Unit/L [facility] ALT No additional P-5'-P [Catalytic activity/Vol] 12 [iU]/d Normal 6 - 46 Int._Unit/L [facility] Anion gap [Moles/Vol] 11 mmol/L Normal 6 - 16 mEq/L [facility] AST [Catalytic activity/Vol] 14 [iU]/d Normal 5 - 43 Int._Unit/L [facility] Bilirubin [Mass/Vol] 0.4 mg/dL Normal 0.0 - 1 .1 mg/dL [facility] Bilirubin.direct [Mass/Vol] 0.0 mg/dL Normal 0.0 - 0.4 mg/dL [facility] Bilirubin.indirect [Mass or moles/Vol] 0.4 mg/dL Normal 0.1 - 0.9 mg/dL [facility] Calcium [Mass/Vol] 9.1 mg/dL Normal 8.9 - 11. 1 mg/dL [facility] Chloride [Moles/Vol] 105 mmol/L Normal 101 - 1 11 mmol/L [facility] CO2 [Moles/Vol] 26 mmol/L Normal 21 - 31 mmol/L [facility] Creatinine [Mass/Vol] 1.0 mg/dL Normal 0.5 - 1.3 mg/dL [facility] eGFR 74 mL/min/1.73 m2 Normal >=59mL/min / 1.73 m2 [facility] Globulin (S) [Mass/Vol] 2.6 g/dL Normal 1.4 - 4.0 gm/dL [facility] Glucose [Mass/Vol] 109 mg/dL Normal 55 - 199 mg/dL [facility] Magnesium [Mass/Vol] 2.0 mg/dL Normal 1.3 - 2 .4 mg/dL [facility] Potassium [Moles/Vol] 3.9 mmol/L Normal 3.5 - 5.3 mmol/L [facility] Protein [Mass/Vol] 6.9 g/dL Normal 6.0 - 7.8 gm/dL [facility] Sodium [Moles/Vol] 138 mmol/L Normal 135 - 145 mmol/L [facility] Troponin HS pg/mL Low 10.10 - 27.10 pg/mL [facility] Comment on above: Interpretive Data: T he 95% CI (Confidence Interval) PPV (Positive Predictive Value) for myocardial infarction in females is 38 pg/mL, in males 51 pg/mL. The results should be used in conjunction with clinical conditions of myocardial infarction. (Access High Sensitivity Troponin I Instructions For Use, Sandra Italo, September 2017) Urea nitrogen [Mass/Vol] 16 mg/dL Normal 5 - 21 mg/dL [facility] Urea nitrogen/Creatinine [Mass ratio] 16 mg/mg Normal 10 - 20 [facility] CHEMISTRYOrdered By: Aracelis Kent on 08-03-2023 Natriuretic peptide B (Bld) [Mass/Vol] 20 pg/mL Normal 5 - 80 pg/mL [facility] Heme[place]ari[place] COAGULATIONOrdered By: Vick Kent on 08-03-2023 aPTT Coag (PPP) [Time] 32.0 s Normal 25.1 - 36.5 second(s) [facility] Comment on above: Interpretive Data: P arameter 15 days - 4 weeks 1 - 5 months 6 - 11 months 1 - 5 years 6 - 10 years 11 - 17 years PTT Mean: 35.4 (27.6-45.6) Mean: 33.5 (24.8-40.7) Mean: 32.4 (25.1-40.7) Mean: 31.6 (24.0-39.2) Mean: 31.6 (26.9-38.7) Mean: 31.0 (24.6-38.4) Pediatric Reference ranges were obtained from a study by Yemi Schultz et al. prepared from 1437 samples obtained at 7 different centers using the same coagulation reagent and instrumentation as [facility]. Currently there are no coagulation studies available worldwide for children to 14 days, and no normal ranges. Heparin therapeutic range (represented by Anti-Factor Xa activity of 0.2 - 0.4 U/mL) corresponds to PTT of 56.6 - 109.0 sec. INR Coag (PPP) [Relative time] 1.11 {INR} Invalid Interpretation Code [facility] Comment on above: Interpretive Data: I NR results are specifically intended to assess patients stabilized on long-term Anticoagulation therapy suggested INR s Less Intensive Anticoagulation 2.0 3.0 Conventional Range 3.0 4.5 PT Coag (PPP) [Time] 12.5 s Normal 9.4 - 1 2.5 second(s) [facility] Comment on above: Interpretive Data: 1 5 days - 4 weeks 1 - 5 months 6 -11 months 1-5 years 6-10 years 11 -17 years Mean: 11.2 (9.5-12.6) Mean: 11.0 (9.7-12.8) Mean: 11.0 (9.8-13.0) Mean: 11.3 (9.9-13.4) Mean: 11.7 (10.0-14.6) Mean: 11.8 (10.0 - 14.1) Pediatric Reference ranges were obtained from a study by Yemi Schultz et al. prepared from 1437 samples obtained at 7 different centers using the same coagulation reagent and instrumentation as [facility]. Currently there are no coagulation studies available worldwide for children to 14 days, and no normal ranges. Consent for Treatmenton 07-22 Consent for Treatment [id number] F Normal [facility] Discharge Instructionson Discharge Instructions [id number] FF Normal [facility] ED Clinical Summaryon 2023 ED Clinical Summary (Inserted Image. Shasta ble to display) [place] [id number] ED Clinical Summary Person Information [facility] Age[facility] 37 Years : 1985 Sex: Female Language: Cypriot PCP: Cleo Hassan Marital Status: Visit Id: Visit Reason: Dizziness; Abnormal diagnostic test; Shortness of breath; SENT BY - JOSÉ MIGUEL/HEADACHE/SOB Speciality: Acuity: 2 Enc Type: Emergency Med Service: Emergency Arrival: 08/03/2023 10:44:43 Discharge: 08/03/2023 14:14:46 LOS: 000 03:30 Checkin: 08/03/2023 10:44:43 Checkout: 08/03/2023 14:14:46 Dispo Type: Home (Routine DC) EVENTS: Event Name Event Status Request Date/Time Start Date/Time Complete Date/Time Arrive Complete 08/03/2023 10:44:43 08/03/2023 10:44:43 08/03/2023 10:44:43 Document Home Meds Request 08/03/2023 10:44:43 Triage Complete 08/03/2023 10:44:43 08/03/2023 11:04:58 08/03/2023 11:04:58 EKG Complete 08/03/2023 10:50:03 08/03/2023 10:55:03 Bed Assign Complete 08/03/2023 11:05:29 08/03/2023 11:05:29 08/03/2023 11:05:29 Dr Exam Complete 08/03/2023 11:05:29 08/03/2023 11:10:23 08/03/2023 11:10:23 RN Exam Complete 08/03/2023 11:05:29 08/03/2023 11:39:02 08/03/2023 11:39:02 Registration Complete 08/03/2023 11:10:23 08/03/2023 11:48:41 08/03/2023 11:48:41 Pending Labs Complete 08/03/2023 11:28:06 08/03/2023 13:28:48 Lab Complete 08/03/2023 11:28:06 08/03/2023 12:28:40 Patient Care Complete 08/03/2023 11:28:06 08/03/2023 12:14:50 X-Ray Complete 08/03/2023 11:28:06 08/03/2023 11:52:34 08/03/2023 12:42:07 RT Request 08/03/2023 11:28:06 Pending Labs Cancel 08/03/2023 11:34:08 08/03/2023 12:15:38 Lab Cancel 08/03/2023 11:34:08 08/03/2023 12:15:38 Pending Labs Complete 08/03/2023 11:46:50 08/03/2023 11:46:50 08/03/2023 12:10:08 Lab Complete 08/03/2023 11:46:50 08/03/2023 11:46:50 08/03/2023 12:10:08 Reg Complete Request 08/03/2023 11:48:41 Reg Bed Request Complete 08/03/2023 11:48:41 08/03/2023 11:48:41 08/03/2023 11:48:41 Pending Labs Complete 08/03/2023 11:49:28 08/03/2023 11:49:28 08/03/2023 12:12:12 Blood Collect Start 08/03/2023 11:49:28 08/03/2023 11:49:28 Pending Labs Complete 08/03/2023 12:16:44 08/03/2023 12:16:44 08/03/2023 12:33:54 Lab Complete 08/03/2023 12:16:44 08/03/2023 12:16:44 08/03/2023 12:33:54 Pending Labs Inlab 08/03/2023 12:26:54 08/03/2023 12:26:54 Wet Read Request 08/03/2023 12:42:07 Discharge Complete 08/03/2023 13:34:59 08/03/2023 14:14:52 08/03/2023 14:14:52 Transfer Complete 08/03/2023 14:14:52 08/03/2023 14:14:52 08/03/2023 14:14:52 ADDRESS: [facility] MELISSA LOZADA [facility] [id number] [facility] DOC NOTES: MEDICAL INFORMATION: Prescriptions Given: Medications to Continue with No Changes Other Medications albuterol (Ventolin HFA 90 mcg/inh Aerosol-Adpt) 2 Puffs Inhalation every 4 hours as needed for wheezing. Refills: 5. eszopiclone (eszopiclone 3 mg Tab) 1 Tablets By Mouth once a day (at bedtime) as needed for insomnia. iron sucrose (Venofer 20 mg/mL Soln-IV) 500 mg IV every 2 weeks x 2 doses. Refills: 0. lumateperone (Caplyta 42 mg oral capsule) 1 Capsules By Mouth every day. TAKE 1 CAPSULE BY MOUTH IN THE MORNING. methylPREDNISolone (Medrol 4 mg Tab) 1 Packets By Mouth As Directed for 6 Days. as directed on package labeling. Refills: 0. sertraline (sertraline 100 mg Tab) PATIENT EDUCATION INFORMATION: Instructions: Iron Deficiency Anemia, Adult; Shortness of Breath, Adult; Anemia Follow up: With: Address: When: José Antonio Benitez [facility], [address] [place] [address] In 3 days 08/06/2023 Comments: Make sure to follow-up with as discussed. Return to the emergency room if your symptoms get worse or any new symptoms. With: Address: When: Cleo Hernandez In 3 days DIAGNOSIS: 1:Shortness of breath; 2:Anemia Normal [facility] ED Note-Nursingon 08-03-2023 ED Note-Nursing this RN enters room to d/c pt. as pt asks this RN to not take her IV out at this time because she is on the phone with her doctor because I do not agree with what he said. This RN exits room to notify josesito Ge RN of pts. concerns. Dr. Moise also updated that pt. does not agree with plan. This RN re-enters the room to discuss further with pt. pt. states, I am being referred somewhere else because I feel like this is an emergent issue that I would have gotten a blood transfusion or an iron infusion. This RN explains to pt. the d/c plan to f/u with Dr. Benitez and pt. agrees to be dc'd at this time and states she will not be coming back to the ER. josesito Ge RN updated at this time. Normal [facility] ED Note-Physicianon 08-03-19 ED Note-Physician Basic Information Time Seen: Elizabeth Moise M.D. 08/03/2023 11:10 Chief Complaint patient presents with low hemaglobin (7.1)- experiencing fatigue, SOB, DOWLING and dizziness. denies blood in urine or stool History of Present Illness The patient is a 37-year-old female who presented to the emergency room for weakness. The patient states for past 1 week she has been feeling weak and tired. The patient states she feels sleepy all the time. The patient states she has shortness of breath with exertion. Mild discomfort in her chest. The patient states she went to see her primary doctor who ordered blood work. She states her hemoglobin is low. The patient states the doctor sent her to the emergency room because she has all different kind of shape cells .The patient reports occasional abdominal cramping. She denies any abdominal pain currently. The patient denies any black or bloody stool. She denies any nausea, denies any vomiting. The patient denies any blood in urine. She states her periods are not heavy. She gets periods every 4 to 5 months and when they come they last for 4 days. The patient states sometimes she will not even soak 1 pad per day. The patient states her doctor ordered ultrasound of the thyroid gland because she has a nodule on her thyroid as well. The patient denies any other associated symptoms. Review of Systems Additional ROS info: Except as noted in the above Review of Systems and in the History of Present Illness all other systems have been reviewed and are negative or noncontributory. Physical Exam Vitals & Measurements T: 37 ?C(Oral) HR: 67(Monitored) RR: 16 BP: 102/59 SpO2: 100% HT: 161 cm WT: 112.7 kg BMI: 43.48 General: alert, no acute distress Skin: warm, dry, pale Head: no trauma, normocephalic Neck: Trachea midline, no tenderness, supple Eye: pale conjunctiva, sclera clear,EOMI, vision unchanged ENMT: Oral mucosa moist, no pharyngeal erythema or exudate Cardiovascular: regular rate and rhythm, systolic murmur Respiratory: Lungs CTA, respirations non labored, breath sounds equal, Gastrointestinal: soft, non distended, no tenderness, no guarding Extremities: no deformity, no trauma Neurological: Alert and oriented, speech normal, no focal neuro deficits Psychiatric: cooperative, affect appropriate for age, Medical Decision Making MEDICAL DECISION MAKING Number and Complexity of Problems Differential Diagnosis: [] [facility] Data External documents reviewed: [] My EKG interpretation: [] My CT interpretation: [] My X-ray interpretation: [] My Ultrasound interpretation: [] Decision rules/scores evaluated: [] Discussed with: Treatment and Disposition ED Course: The patient presented with generalized weakness sleepiness and shortness of breath with exertion. More likely her symptoms are due to iron deficiency anemia. The patient has done blood work 2 days ago and her iron level is 11. Blood work was repeated again. Hemoglobin is 7.3. The patient denies any black or bloody stool. The chest x-ray shows no acute cardiopulmonary disease. EKG shows no acute ischemic changes. The rest of blood work is unremarkable. The case was discussed with hematology oncology who recommends oral iron supplement and he will see the patient in the office in 2 to 3 weeks. He does not recommend any IV iron infusion. The the findings and the plan of care were discussed with the patient. She appears to be upset about not getting IV iron infusion in the emergency room. I explained to the patient that not an emergency drug and her doctor can order it as an outpatient to the infusion center. I explained to the patient that we do not transfuse if the hemoglobin is not below 7. The patient had stated that iron pills because of vomiting. I tried to explain to the patient to take it with food. She states she still gets vomiting with them. The patient will be discharged home follow-up with her primary doctor and Dr. Benitez. She is instructed to return to the emergency room if her symptoms get worse or any new symptoms. Shared decision making: [] Code status: [] Assessment/Plan 1. Shortness of breath (R06.02: Shortness of breath) 2. Anemia (D64.9: Anemia, unspecified) Orders: B-Type Natriuretic Peptide Basic Metabolic Panel BB Draw & Hold CBC w/ Auto Diff Continuous Pulse Oximetry ECG 12 Lead Adult ED Cardiac Monitoring eGFR Extra SST Tube Hepatic Function Panel Magnesium Level Oxygen Therapy Path. Review PT & PTT Saline Lock Insert Troponin 0 Hr. Troponin 1 Hr. XR Chest 2 Views Disposition Plan Patient Discharge Condition Stable Discharge Disposition Discharge home Discharge Prescription List Prescriptions No active prescription medications Follow-up With When Contact Information José Antonio Benitez In 3 days 08/06/2023 EDT [facility] [address] [place] [address]- Additional Instructions: Make sure to foll (more content not included)... Normal [facility] Comment on above: Result Comment: Elec tronically Signed By: Braulio Moise M.D.it H\.ariel\Date and Time Signed: 08/03/23 15:19 EDT ED Patient Education Noteon 08-03-2023 ED Patient Education Note Hematology Iron Deficiency Anemia, Adult Iron deficiency anemia is a condition in which the concentration of red blood cells or hemoglobin in the blood is below normal because of too little iron. Hemoglobin is a substance in red blood cells that carries oxygen to the body's tissues. When the concentration of red blood cells or hemoglobin is too low, not enough oxygen reaches these tissues. Iron deficiency anemia is usually long-lasting, and it develops over time. It may or may not cause symptoms. It is a common type of anemia. What are the causes? This condition may be caused by: ? Not enough iron in the diet. ? Abnormal absorption in the gut. ? Blood loss. What increases the risk? You are more likely to develop this condition if you get menstrual periods (menstruate) or are . What are the signs or symptoms? Symptoms of this condition may include: ? Pale skin, lips, and nail beds. ? Weakness, dizziness, and getting tired easily. ? Shortness of breath when moving or exercising. ? Cold hands or feet. Mild anemia may not cause any symptoms. How is this diagnosed? This condition is diagnosed based on: ? Your medical history. ? A physical exam. ? Blood tests. How is this treated? This condition is treated by correcting the cause of your iron deficiency. Treatment may involve: ? Adding iron-rich foods to your diet. ? Taking iron supplements. If you are or , you may need to take extra iron because your normal diet usually does not provide the amount of iron that you need. ? Increasing vitamin C intake. Vitamin C helps your body absorb iron. Your health care provider may recommend that you take iron supplements along with a glass of orange juice or a vitamin C supplement. ? Medicines to make heavy menstrual flow balance recesser. ? Surgery or additional testing procedures to determine the cause of your anemia. You may need repeat blood tests to determine whether treatment is working. If the treatment does not seem to be working, you may need more tests. Follow these instructions at home: Medicines ? Take aokl-sbl-vuthmyt and prescription medicines only as told by your health care provider. This includes iron supplements and vitamins. This is important because too much iron can be harmful. ? For the best iron absorption, you should take iron supplements when your stomach is empty. If you cannot tolerate them on an empty stomach, you may need to take them with food. ? Do not drink milk or take antacids at the same time as your iron supplements. Milk and antacids may interfere with how your body absorbs iron. ? Iron supplements may turn stool (feces) a darker color and it may appear black. ? If you cannot tolerate taking iron supplements by mouth, talk with your health care provider about taking them through an IV or through an injection into a muscle. Eating and drinking ? Talk with your health care provider before changing your diet. Your provider may recommend that you eat foods that contain a lot of iron, such as: ? Liver. ? Low-fat (lean) beef. ? Breads and cereals that have iron added to them (are fortified). ? Eggs. ? Dried fruit. ? Dark green, leafy vegetables. ? To help your body use the iron from iron-rich foods, eat those foods at the same time as fresh fruits and vegetables that are high in vitamin C. Foods that are high in vitamin C include: ? Oranges. ? Peppers. ? Tomatoes. ? Mangoes. Managing constipation If you are taking an iron supplement, it may cause constipation. To prevent or treat constipation, you may need to: ? Drink enough fluid to keep your urine pale yellow. ? Take rlwt-drr-lgfkadf or prescription medicines. ? Eat foods that are high in fiber, such as beans, whole grains, and fresh fruits and vegetables. ? Limit foods that are high in fat and processed sugars, such as fried or sweet foods. General instructions ? Return to your normal activities as told by your health care provider. Ask your health care provider what activities are safe for you. ? Keep all follow-up visits. Contact a health care provider if: ? You feel nauseous or you vomit. ? You feel weak. ? You become light-headed when getting up from a sitting or lying down position. ? You have unexplained sweating. ? You develop symptoms of constipation. ? You have a heaviness in your chest. ? You have trouble breathing with physical activity. Get help right away if: ? You faint. If this happens, do not drive yourself to the hospital. ? You have an irregular or rapid heartbeat. Summary ? Iron deficiency anemia is a condition in which the concentration of red blood cells or hemoglobin in the blood is below normal because of too little iron. ? This condition is treated by correcting the cause of your iron deficiency. ? Take hqsg-fce-ukqriif and prescription medicines only as told by your health care provider. This includes iron supplem (more content not included)... Normal [facility] ED Patient Summaryon 024 ED Patient Summary (Inserted Image. Shasta ble to display) [address] [address] Patient Discharge Instructions Person Information Name: MORRO MALONEY Age: 37 Years Arrival Date: 08/03/2023 10:44:43 Discharge Diagnosis: 1:Shortness of breath; 2:Anemia Primary Care Physician: Cleo Hassan Provider Information Primary Provider: Elizabeth Moise M.D. Advanced Customer Advocacy Manager:None The exam and treatment you received in the Emergency Department were for an urgent problem and are not intended as complete care. It is important that you follow up with a doctor, nurse practitioner, or physician?s mobile sales assistant for ongoing care. If your symptoms become worse or you do not improve as expected and you are unable to reach your usual health care provider, you should return to the Emergency Department. We are available 24 hours a day. MORRO MALONEY has been given the following list of patient education materials, prescriptions and follow-up instructions: Follow-up Instructions: With: Address: When: José Antonio Benitez [facility], [address] [place] [address]. [place] [address] In 3 days 08/06/2023 Comments: Make sure to follow-up with as discussed. Return to the emergency room if your symptoms get worse or any new symptoms. With: Address: When: Cleo Hernandez In 3 days In the event that this physician does not participate in your insurance network, please consult with your insurance company to find a nearby participating provider. Patient Education Materials: Iron Deficiency Anemia, Adult; Shortness of Breath, Adult; Anemia A MESSAGE TO ALL PATIENTS REGARDING OPIOIDS PRESCRIPTION OPIOIDS: WHAT YOU NEED TO KNOW Prescription opioids can be used to help relieve wsmdwoxd-hh-bsaezt pain and are often prescribed following a surgery or injury, or for certain health conditions. These medications can be an important part of the treatment but also come with serious risks. It is important to work with your healthcare provider to make sure you are getting the safest, most effective care. WHAT ARE THE RISKS AND SIDE EFFECTS OF OPIOID USE? Prescription opioids carry serious risks of addiction and overdose, especially with prolonged use. An opioid overdose, often marked by slowed breathing, can cause sudden . The use of prescription opioids can have a number of side effects as well, even when taken as directed: ? Tolerance?meaning you might need to take more of the medication for the same pain relief ? Physical dependence?meaning you have symptoms of withdrawal when a medication is stopped ? Increased sensitivity to pain ? Constipation ? Nausea, vomiting, and dry mouth ? Sleepiness and dizziness ? Confusion ? Depression ? Low levels of testosterone that can result in lower sex drive, energy, and strength ? Itching and sweating RISKS ARE GREATER WITH: ? History of drug misuse, substance use disorder, or overdose ? Mental health conditions (such as depression or anxiety) ? Sleep apnea ? Older age (65 years and older) ? Avoid alcohol while taking prescription opioids. Also, unless specifically advised by your health care provider, medications to avoid include: ? Benzodiazepines (such as Xanax or Valium) ? Muscle relaxants (such as Soma or Flexeril) ? Hypnotics (such as Ambien or Lunesta) ? Other prescription opioids KNOW YOUR OPTIONS Talk to your health care provider about ways to manage your pain that don?t involve prescription opioids. Some of these options may actually work better and have fewer risks and side effects. Options may include: ? Pain relievers such as acetaminophen, ibuprofen, and naproxen ? Some medication that are also used for depression or seizures ? Physical therapy and exercise ? Cognitive behavioral therapy, a psychological, goal-directed approach, in which patients learn how to modify physical, behavioral, and emotional triggers of pain and stress. IF YOU ARE PRESCRIBED OPIOIDS FOR PAIN: ? Never take opioids in greater amounts or more often than prescribed. ? Follow up with your primary health care provider. o Work together to create a plan on how to manage your pain. o Talk about ways to help manage your pain that don?t involve prescription opioids. o Talk about any and all concerns and side effects. ? Help prevent misuse and abuse o Never sell or share prescription opioids. o Never use another person?s prescription opioids. ? Store prescription opioids in a secure place and out of reach of others (this may include visitors, children, friends, and family). ? Safely dispose of unused prescription opioids: Find your community drug take-back program or your pharmacy mail-back program, or flush them down the toilet, following guidance from the Food and Drug Administration (www.fda.gov/Drugs/Resou rcesForYou). ? Visit www.cdc.gov/drugoverdose to learn about the ri (more content not included)... Normal [facility] HEMATOLOGYOrdered By: SYSTEM SYSTEM on 08-03-2023 Anisocytosis Ql (Bld) PRESENT *NA* (08/03/23 11:40 AM) Invalid Interpretation Code Remisol Heme Basophils/100 WBC (Bld) 0.2 % Normal 0.0 - 2.0 % Remisol Heme Basophils/Leukocytes Auto (Bld) [Pure # fraction] 0.0 E9/L Normal 0.0 - 0.2 E9/L Remisol Heme Eosinophils (Bld) [#/Vol] 0.0 E9/L Normal 0.0 - 0.5 E9/L Remisol Heme Eosinophils/100 WBC (Bld) 0.0 % Normal 0.0 - 8.0 % Remisol Heme Erythrocyte distribution width (RBC) [Ratio] 19.5 % High 10.9 - 14.2 % Remisol Heme Hematocrit (Bld) [Volume fraction] 24.2 % Low 34.0 - 46.0 % Remisol Heme Hemoglobin (Bld) [Mass/Vol] 7.3 g/dL Low 12.0 - 16.0 gm/dL Remisol Heme Hypochromia Auto Ql (Bld) PRESENT *NA* (08/03/23 11:40 AM) Invalid Interpretation Code Remisol Heme Lymphocytes (Bld) [#/Vol] 2.0 E9/L Normal 1.0 - 4.0 E9/L Remisol Heme Lymphocytes/100 WBC (Bld) 32.5 % Normal 14.0 - 50.0 % Remisol Heme MCH (RBC) [Entitic mass] 20.5 pg Low 27. 0 - 34.0 pg Remisol Heme MCHC (RBC) [Mass/Vol] 30.2 g/dL Low 31.4 - 36.0 gm/dL Remisol Heme MCV (RBC) [Entitic vol] 67.8 fL Low 80.0 - 100.0 fL Remisol Heme Microcytes Ql (Bld) PRESENT *NA* (08/03/23 11:40 AM) Invalid Interpretation Code Remisol Heme Monocytes (Bld) [#/Vol] 0.5 E9/L Normal 0.2 - 1.0 E9/L Remisol Heme Monocytes/100 WBC (Bld) 7.9 % Normal 4.0 - 14.0 % Remisol Heme Neutrophils (Bld) [#/Vol] 3.7 E9/L Normal 2.0 - 7.5 E9/L Remisol Heme Neutrophils/100 WBC (Bld) 59.4 % Normal 36.0 - 75.0 % Remisol Heme Platelet mean volume (Bld) [Entitic vol] 7.5 fL Normal 6.4 - 10.8 fL Remisol Heme Platelets (Bld) [#/Vol] 342.0 E9/L Normal 150. 0 - 500.0 E9/L Remisol Heme RBC (Bld) [#/Vol] 3.6 E12/L Low 4.3 - 5.9 E12/L Remisol Heme RBC size Nom (Bld) SEE MORPHOLOGY *NA* (08/03/23 11:40 AM) Invalid Interpretation Code Remisol Heme Schistocytes LM Ql (Bld) PRESENT *NA* (08/03/23 11:40 AM) Invalid Interpretation Code Remisol Heme WBC corrected for nucl RBC Auto (Bld) [#/Vol] 6.3 E9/L Normal 4.0 - 11.0 E9/L Remisol Heme Hep Func Panelon 08-03-2023 Albumin [Mass/Vol] 4.3 g/dL Normal 3.3-5.0 [facility] Comment on above: Performed By: #### 2 [id number] #### [facility] [address] [place] [address] Albumin/Globulin (S) [Mass conc ratio] 1.7 Normal 1.1-2.2 [facility] Comment on above: Performed By: #### 2 [id number] #### [facility] [address] [place] [address] ALP [Catalytic activity/Vol] 81 Int._Unit/L Normal 21-98 [facility] Comment on above: Performed By: #### 2 [id number] #### [facility] [address] [place] [address] ALT No additional P-5'-P [Catalytic activity/Vol] 12 Int._Unit/L Normal 6-46 [facility] Comment on above: Performed By: #### 2 [id number] #### [facility] [address] [place] [address] AST [Catalytic activity/Vol] 14 Int._Unit/L Normal 5-43 [facility] Comment on above: Performed By: #### 2 [id number] #### [facility] [address] [place] [address] Bilirubin [Mass/Vol] 0.4 mg/dL Normal 0.0-1.1 [facility] Comment on above: Performed By: #### 2 [id number] #### [facility] [address] [place] [address] Bilirubin.direct [Mass/Vol] 0.0 mg/dL Normal 0.0-0.4 [facility] Comment on above: Performed By: #### 2 [id number] #### [facility] [address] [place] [address] Bilirubin.indirect [Mass or moles/Vol] 0.4 mg/dL Normal 0.1-0.9 [facility] Comment on above: Performed By: #### 2 [id number] #### [facility] [address] [place] [address] Globulin (S) [Mass/Vol] 2.6 g/dL Normal 1.4-4.0 [facility] Comment on above: Performed By: #### 2 [id number] #### [facility] [address] [place] [address] Protein [Mass/Vol] 6.9 g/dL Normal 6.0-7.8 [facility] Comment on above: Performed By: #### 2 [id number] #### [facility] [address] [place] [address] Insurance Correspondenceon 0 08-03-2023 Insurance Correspondence [id number] [id number] Normal [facility] Magnesiumon 08-03-2023 Magnesium [Mass/Vol] 2.0 mg/dL Normal 1.3-2.4 [facility] Comment on above: Performed By: #### 2 [id number] #### [facility] [address] [place] [address] PT & PTTon 08-03-2023 aPTT Coag (PPP) [Time] 32.0 second(s) Normal 25.1-36.5 [facility] Comment on above: Result Comment: Para meter 15 days - 4 weeks 1 - 5 months 6 - 11 months 1 - 5 years 6 - 10 years 11 - 17 years PTT Mean: 35.4 (27.6-45.6) Mean: 33.5 (24.8-40.7) Mean: 32.4 (25.1-40.7) Mean: 31.6 (24.0-39.2) Mean: 31.6 (26.9-38.7) Mean: 31.0 (24.6-38.4) Pediatric Reference ranges were obtained from a study by Yemi Schultz et al. prepared from 1437 samples obtained at 7 different centers using the same coagulation reagent and instrumentation as [facility] Currently there are no coagulation studies available worldwide for children to 14 days, and no normal ranges. Heparin therapeutic range (represented by Anti-Factor Xa activity of 0.2 - 0.4 U/mL) corresponds to PTT of 56.6 - 109.0 sec. Performed By: #### 1 [id number] #### [facility] [address] [place] [address] INR Coag (PPP) [Relative time] 1.11 {INR} Invalid Interpretation Code [facility] Comment on above: Result Comment: INR results are specifically intended to assess patients stabilized on long-term Anticoagulation therapy suggested INR?s ?Less Intensive Anticoagulation? 2.0 ? 3.0 Conventional Range 3.0 ? 4.5 Performed By: #### 1 [id number] #### [facility] [address] [place] [address] PT Coag (PPP) [Time] 12.5 second(s) Normal 9.4-12.5 [facility] Comment on above: Result Comment: 15 d ays - 4 weeks 1 - 5 months 6 -11 months 1-5 years 6-10 years 11 -17 years Mean: 11.2 (9.5-12.6) Mean: 11.0 (9.7-12.8) Mean: 11.0 (9.8-13.0) Mean: 11.3 (9.9-13.4) Mean: 11.7 (10.0-14.6) Mean: 11.8 (10.0 - 14.1) Pediatric Reference ranges were obtained from a study by Yemi Schultz et al. prepared from 1437 samples obtained at 7 different centers using the same coagulation reagent and instrumentation as [facility]. Currently there are no coagulation studies available worldwide for children to 14 days, and no normal ranges. Performed By: #### 1 [id number] #### [facility] [address] [place] [address] Troponin 0 Hr.on 08-03-2023 Troponin HS <2.30 Low 10.10-27.10 [facility] Comment on above: Result Comment: The 95% CI (Confidence Interval) PPV (Positive Predictive Value) for myocardial infarction in females is 38 pg/mL, in males 51 pg/mL. The results should be used in conjunction with clinical conditions of myocardial infarction. (Access High Sensitivity Troponin I Instructions For Use, idio, September 2017) Performed By: #### 1 [id number] #### [facility] [address] [place] [address] Troponin 1 Hr.on 08-03-2023 Troponin HS <2.30 Low 10.10-27.10 [facility] Comment on above: Order Comment: Tropo vincent 1 hr due @ 1240 Result Comment: The 95% CI (Confidence Interval) PPV (Positive Predictive Value) for myocardial infarction in females is 38 pg/mL, in males 51 pg/mL. The results should be used in conjunction with clinical conditions of myocardial infarction. (Access High Sensitivity Troponin I Instructions For Use, idio, September 2017) Performed By: #### 1 [id number] #### [facility] [address] [place] [address] XR Chest 2 Viewson XR Chest 2 Views Exam Date/Time: 08/03/2023 12:42 EDT Reason for Exam: Difficulty breathing Report IMPRESSION: No acute radiographic abnormality. EXAMINATION: XR Chest 2 Views Clinical History: Difficulty breathing Comparison: None RESULT: No consolidation. No pleural effusion. No pneumothorax. Normal cardiomediastinal silhouette. No acute osseous findings. Chronic appearing deformity of the partially imaged left proximal humerus, which may represent osteochondroma or could be sequela of remote fracture. Ordering Provider: Elizabeth Moise FINAL REPORT Dictated: 08/03/2023 1:14 pm Young Junior MD Signed (Electronic Signature): 08/03/2023 1:14 pm Signed by: Young Junior MD Transcribed by: DP Technologist: DPR Technical Comments Radiation Dose: Ka,r in mGy = na DAP = na Normal [facility] eGFRon 08-03-2023 eGFR 74 mL/min/1.73 m2 Normal >=59 [facility] Comment on above: Order Comment: Order added by Discern Expert. Performed By: #### 1 [id number] #### [facility] [address] [place] [address] Family Medicine Phone Visit - Telehealthon 08-02-2023 Family Medicine Phone Visit - Telehealth HPI Staff Morro is a 37 year old female presenting for acute visit Onset: 1 week ago Location: left side of neck Characteristics: lump Aggravated by: swallowing , chewing OTC: nothing is helping, has tried advil Questions/Concerns: Pressure in throat has been getting worse hurts to swallow and left ear now hurts , pain near lump feels hot. Starting to have a hard time swallowing food. Pt did have a Parotidectomy left side and also had a cyst on her thyroid that was drained 04/2020 Physical Exam Vitals & Measurements HR: 76(Peripheral) RR: 18 BP: 128/84 SpO2: 98% HT: 63 in HT: 161.0 cm WT: 107.3 kg WT: 236.06 lb BMI: 41.4 Assessment/Plan 1. Iron deficiency anemia (D50.9: Iron deficiency anemia, unspecified) orders for iron infusions sent to infusion center this morning. patient phones in and states she is now severely short of breath. Ordered: iron sucrose, See Instructions, 500 mg IV every 2 weeks x 2 doses, # 25 mL, Refills(s) 0, 161, cm, 08/01/23 14:17:00 EDT, Height/Length Dosing, 107.3, kg, 08/01/23 14:17:00 EDT, Weight Dosing 2. Shortness of breath (R06.02: Shortness of breath) when speaking to nurse on the phone pt sounds very short of breath. pt instructed to go to ER. ER was notified that patient is on her way Orders: gabapentin, 300 mg = 1 cap(s), Oral, Once a day (at bedtime), # 30 cap(s), Refills(s) 0, Pharmacy: [facility]/pharmacy #[id number], 161, cm, 03/29/23 15:27:00 EST, Height/Length Dosing, 107.2, kg, 03/29/23 15:27:00 EST, Weight Dosing methylPREDNISolone, = 1 packet(s), Oral, As Directed, as directed on package labeling, X 6 day(s), # 21 tab(s), Refills(s) 0, Pharmacy: [facility]/pharmacy #[id number], 161, cm, 08/01/23 14:17:00 EDT, Height/Length Dosing, 107.3, kg, 08/01/23 14:17:00 EDT, Weight Dosing predniSONE, See Instructions, 6 tabs for 2 days,5 tabs for 2 days,4 tabs for 2 days,3 tabs for 2 days,2 tabs for 2 days,1 tab for 2 days, # 42 tab(s), Refills(s) 0, Pharmacy: [facility]/pharmacy #[id number], 161, cm, 03/29/23 15:27:00 EST, Height/Length Dosing, 107.2, kg, ... CBC w/ Auto Diff Iron Level Lab Specimen Collect 80190 Thyroid Stimulating Hormone Vitamin D 25 Hydroxy Follow-up No qualifying data available Problem List/Past Medical History Ongoing Asthma Cyst of thyroid Elevated creatine kinase Elevated glucose Elevated WBCs Enlarged thyroid gland Fatigue Iron deficiency anemia Low back pain Shortness of breath Spondylosis Weight gain Wellness examination Historical No qualifying data Procedure/Surgical History Appendectomy, delivery, Cholecystectomy, Gastric sleeve, Parotidectomy. Medications Caplyta 42 mg oral capsule, 42 mg= 1 cap(s), Oral, Daily eszopiclone 3 mg Tab, 3 mg= 1 tab(s), Oral, Once a day (at bedtime), PRN Medrol 4 mg Tab, 1 packet(s), Oral, As Directed sertraline 100 mg Tab Venofer 20 mg/mL Soln-IV, See Instructions Ventolin HFA 90 mcg/inh Aerosol-Adpt, 2 puff(s), Inhalation, q4hr, PRN, 5 refills Allergies No Known Allergies Social History Tobacco Never (less than 100 in lifetime) Tobacco Use:. Never Smokeless Tobacco Use:. Household tobacco concerns: No., 08/01/2023 Immunizations Vaccine Date Status SARS-CoV-2 (COVID-19) mRNA BNT-162b2 vax 04/02/2020 Recorded SARS-CoV-2 (COVID-19) mRNA BNT-162b2 vax 03/12/2020 Recorded Normal [facility] Comment on above: Result Comment: Elec tronically Signed By: Cleo Hassan\.br\Date and Time Signed: 08/02/23 13:42 EDT Physician Orderon 08-02-2023 Physician Order [id number] F Normal [facility] Ambulatory Visit Summaryon 0 08-01-2023 Ambulatory Visit Summary MORRO MALONEY :1985 Visit Date:08/01/2023 Ambulatory Visit Instructions Your Diagnosis BMI 40.0-44.9, adult Non-smoker Enlarged thyroid gland Fatigue Your Care Team Attending Physician - Cleo Hassan Primary Care Physician - Cleo Hassan This Is Your Medications List albuterol (Ventolin HFA 90 mcg/inh Aerosol-Adpt) eszopiclone (eszopiclone 3 mg Tab) lumateperone (Caplyta 42 mg oral capsule) sertraline (sertraline 100 mg Tab) Procedures Performed Appendectomy, delivery, Cholecystectomy, Gastric sleeve, Parotidectomy. Discharge Vitals Heart Rate (Peripheral) 76 Respiratory Rate 18 Blood Pressure 128/84 Height 161.0 cm Height 63 in Weight 107.3 kg Weight 236.06 lb BMI 41.4 Medications What How Much When Instructions Unchanged albuterol (Ventolin HFA 90 mcg/ inh Aerosol-Adpt) 2 Puffs Inhalation Every 4 hours as needed for for wheezing Unchanged eszopiclone (eszopiclone 3 mg Tab) 1 Tablets By Mouth Once a day (at bedtime) as needed for for insomnia Unchanged lumateperone (Caplyta 42 mg oral capsule) 1 Capsules By Mouth Every day TAKE 1 CAPSULE BY MOUTH IN THE MORNING Unchanged sertraline (sertraline 100 mg Tab) Allergies No Known Allergies Problems Ongoing - Any problem that you are currently receiving treatment for. Asthma Cyst of thyroid Elevated creatine kinase Elevated glucose Elevated WBCs Enlarged thyroid gland Fatigue Low back pain Spondylosis Weight gain Wellness examination Patient Survey You may receive a survey via text or e-mail asking about your office visit. Please share your experience with us by completing your survey. We appreciate your feedback and thank you for choosing us for your care. Normal [facility] CBC w/ Auto Diffon 4 Anisocytosis Ql (Bld) PRESENT Invalid Interpretation Code [facility] Comment on above: Performed By: #### 2 [id number] #### [facility] [address] [place] [address] Hypochromia Auto Ql (Bld) PRESENT Invalid Interpretation Code [facility] Comment on above: Performed By: #### 2 [id number] #### [facility] [address] [place] [address] Microcytes Ql (Bld) PRESENT Invalid Interpretation Code [facility] [facility] Comment on above: Performed By: #### 2 [id number] #### [facility] [address] [place] [address] Ovalocytes LM Ql (Bld) PRESENT Invalid Interpretation Code [facility] Comment on above: Performed By: #### 2 [id number] #### [facility] [address] [place] [address] RBC size Nom (Bld) SEE MORPHOLOGY Invalid Interpretation Code [facility] Comment on above: Performed By: #### 2 [id number] #### [facility] [address] [place] [address] CBC w/ Auto DiffOrdered By: SYSTEM SYSTEM on 08-01-2023 Basophils/100 WBC (Bld) 0.1 % Normal 0.0-2.0 R emisol Heme Comment on above: Performed By: #### 2 [id number] #### [facility] [address] [place] [address] Basophils/Leukocytes Auto (Bld) [Pure # fraction] 0.0 E9/L Normal 0.0-0.2 [facility] Comment on above: Performed By: #### 2 [id number] #### [facility] [address] [place] [address] 14725 Eosinophils (Bld) [#/Vol] 0.0 E9/L Normal 0.0-0.5 [facility] Comment on above: Performed By: #### 2 [id number] #### [facility] [address] [place] [address] 93789 Eosinophils/100 WBC (Bld) 0.0 % Normal 0.0-8.0 [facility] Comment on above: Performed By: #### 2 [id number] #### [facility] [address] [place] [address]14 Erythrocyte distribution width (RBC) [Ratio] 19.7 % High 10.9-14.2 [facility] Comment on above: Performed By: #### 2 [id number] #### [facility] [address] [place] [address] Hematocrit (Bld) [Volume fraction] 23.0 % Low 34.0-46.0 [facility] Comment on above: Performed By: #### 2 [id number] #### [facility] [address] [place] [address] 95015 Hemoglobin (Bld) [Mass/Vol] 7.1 g/dL Low 12.0-16.0 [facility] Comment on above: Performed By: #### 2 [id number] #### [facility] [address] [place] [address] Lymphocytes (Bld) [#/Vol] 2.2 E9/L Normal 1.0-4.0 Rem[facility] Heme Comment on above: Performed By: #### 2 [id number] #### [facility] [address] [place] [address]195 Lymphocytes/100 WBC (Bld) 28.2 % Normal 14.0-50.0 Remisol Heme Comment on above: Performed By: #### 2 [id number] #### [facility] [address] [place] [address] 40653 MCH (RBC) [Entitic mass] 21.1 pg Low 27.0-34.0 Remisol Heme Comment on above: Performed By: #### 2 [id number] #### [facility] [address] [place] [address] 58318 MCHC (RBC) [Mass/Vol] 30.9 g/dL Low 31.4-36.0 Rem isol Heme Comment on above: Performed By: #### 2 [id number] #### [facility] [address] [place] [address] 68354 MCV (RBC) [Entitic vol] 68.2 fL Low 80.0-100.0 R emisol Heme Comment on above: Performed By: #### 2 [id number] #### [facility] [address] [place] [address] 99848 Monocytes (Bld) [#/Vol] 0.5 E9/L Normal 0.2-1.0 R emisol Heme Comment on above: Performed By: #### 2 [id number] #### [facility] [address] [place] [address] Neutrophils (Bld) [#/Vol] 5.1 E9/L Normal 2.0-7.5 Remisol Heme Comment on above: Performed By: #### 2 [id number] #### [facility] [address] [place] [address] 28036 Neutrophils/100 WBC (Bld) 64.9 % Normal 36.0-75.0 Remisol Heme Comment on above: Performed By: #### 2 137020 #### [facility] [address] [place] [address] Platelet 359.0 E9/L Normal 150.0-500.0 Remisol Heme Comment on above: Performed By: #### 2 [id number] #### [facility] [address] [place] [address] Platelet mean volume (Bld) [Entitic vol] 7.6 fL Normal 6.4-10.8 Remisol Heme Comment on above: Performed By: #### 2 841759 #### [facility] [address] [place] [address] RBC (Bld) [#/Vol] 3.4 E12/L Low 4.3-5.9 Remisol Heme Comment on above: Performed By: #### 2 [id number] #### [facility] [address] [place] [address] WBC corrected for nucl RBC Auto (Bld) [#/Vol] 7.9 E9/L Normal 4.0-11.0 Remisol Heme Comment on above: Performed By: #### 2 [id number] #### [facility] [address] [place] [address] CHEMISTRYOrdered By: SYSTEM SYSTEM on 08-01-2023 25-hydroxyvitamin D3 [Mass/Vol] 20.4 ng/mL Low 30.0 - 100.0 ng/mL Remisol Chem Iron [Mass/Vol] 11 ug/dL Low 35 - 153 mcg/dL Remisol Chem TSH Qn 1.85 m[IU]/L Normal 0.34 - 5.60 mcIU/mL Remisol Chem Family Medicine Office/Clini c Noteon 08-01-2023 Family Medicine Office/Clinic Note HPI Staff Morro is a 37 year old female presenting for acute visit Onset: 1 week ago Location: left side of neck Characteristics: lump Aggravated by: swallowing , chewing OTC: nothing is helping, has tried advil Questions/Concerns: Pressure in throat has been getting worse hurts to swallow and left ear now hurts , pain near lump feels hot. Starting to have a hard time swallowing food. Pt did have a Parotidectomy left side and also had a cyst on her thyroid that was drained 04/2020 History of Present Illness pt c/o pressure/pain left side of neck, difficulty swallowing, burning in throat Review of Systems PHQ Score Initial Depression Screen Score: 0 SCORE Physical Exam Vitals & Measurements HR: 76(Peripheral) RR: 18 BP: 128/84 SpO2: 98% HT: 63 in HT: 161.0 cm WT: 107.3 kg WT: 236.06 lb BMI: 41.4 General: alert, no acute distress ENMT: oral mucosa moist, no pharyngeal erythema or exudate Cardiovascular: regular rate and rhythm, normal peripheral perfusion Respiratory: Lungs CTA, respirations non labored Extremities: no deformity, no trauma Neurological: oriented x 4, LOC appropriate for age, CN II-XII intact, motor strength equal & normal bilaterally, speech normal Assessment/Plan 1. Enlarged thyroid gland (E04.9: Nontoxic goiter, unspecified) will order u/s of thyroid to rule out thyroid nodule Ordered: methylPREDNISolone, = 1 packet(s), Oral, As Directed, as directed on package labeling, X 6 day(s), # 21 tab(s), Refills(s) 0, Pharmacy: [facility]/pharmacy #[id number], 161, cm, 08/01/23 14:17:00 EDT, Height/Length Dosing, 107.3, kg, 08/01/23 14:17:00 EDT, Weight Dosing CBC w/ Auto Diff Iron Level Lab Specimen Collect [id number] Thyroid Stimulating Hormone Vitamin D 25 Hydroxy 2. Fatigue (R53.83: Other fatigue) will check labs today Ordered: methylPREDNISolone, = 1 packet(s), Oral, As Directed, as directed on package labeling, X 6 day(s), # 21 tab(s), Refills(s) 0, Pharmacy: [facility]/pharmacy #[id number], 161, cm, 08/01/23 14:17:00 EDT, Height/Length Dosing, 107.3, kg, 08/01/23 14:17:00 EDT, Weight Dosing CBC w/ Auto Diff Iron Level Lab Specimen Collect [id number] Thyroid Stimulating Hormone Vitamin D 25 Hydroxy 3. Non-smoker (Z78.9: Other specified health status) continue not smoking Ordered: methylPREDNISolone, = 1 packet(s), Oral, As Directed, as directed on package labeling, X 6 day(s), # 21 tab(s), Refills(s) 0, Pharmacy: [facility]/pharmacy #[id number], 161, cm, 08/01/23 14:17:00 EDT, Height/Length Dosing, 107.3, kg, 08/01/23 14:17:00 EDT, Weight Dosing predniSONE, See Instructions, 6 tabs for 2 days,5 tabs for 2 days,4 tabs for 2 days,3 tabs for 2 days,2 tabs for 2 days,1 tab for 2 days, # 42 tab(s), Refills(s) 0, Pharmacy: [facility]/pharmacy #[id number], 161, cm, 03/29/23 15:27:00 EST, Height/Length Dosing, 107.2, kg, 02/... CBC w/ Auto Diff Iron Level Lab Specimen Collect [id number] Thyroid Stimulating Hormone Vitamin D 25 Hydroxy 4. BMI 40.0-44.9, adult (Z68.41: Body mass index [BMI] 40.0-44.9, adult) BMI education complete Ordered: methylPREDNISolone, = 1 packet(s), Oral, As Directed, as directed on package labeling, X 6 day(s), # 21 tab(s), Refills(s) 0, Pharmacy: [facility]/pharmacy #[id number], 161, cm, 08/01/23 14:17:00 EDT, Height/Length Dosing, 107.3, kg, 08/01/23 14:17:00 EDT, Weight Dosing predniSONE, See Instructions, 6 tabs for 2 days,5 tabs for 2 days,4 tabs for 2 days,3 tabs for 2 days,2 tabs for 2 days,1 tab for 2 days, # 42 tab(s), Refills(s) 0, Pharmacy: [facility]/pharmacy #[id number], 161, cm, 03/29/23 15:27:00 EST, Height/Length Dosing, 107.2, kg, 02/... CBC w/ Auto Diff Iron Level Lab Specimen Collect [id number] Thyroid Stimulating Hormone Vitamin D 25 Hydroxy Orders: gabapentin, 300 mg = 1 cap(s), Oral, Once a day (at bedtime), # 30 cap(s), Refills(s) 0, Pharmacy: [facility]/pharmacy #[id number], 161, cm, 03/29/23 15:27:00 EST, Height/Length Dosing, 107.2, kg, 03/29/23 15:27:00 EST, Weight Dosing Follow-up No qualifying data available Problem List/Past Medical History Ongoing Asthma Cyst of thyroid Elevated creatine kinase Elevated glucose Elevated WBCs Enlarged thyroid gland Fatigue Low back pain Spondylosis Weight gain Wellness examination Historical No qualifying data Procedure/Surgical History Appendectomy, delivery, Cholecystectomy, Gastric sleeve, Parotidectomy. Medications Caplyta 42 mg oral capsule, 42 mg= 1 cap(s), Oral, Daily eszopiclone 3 mg Tab, 3 mg= 1 tab(s), Oral, Once a day (at bedtime), PRN Medrol 4 mg Tab, 1 packet(s), Oral, As Directed sertraline 100 mg Tab Ventolin HFA 90 mcg/inh Aerosol-Adpt, 2 puff(s), Inhalation, q4hr, PRN, 5 refills Allergies No Known Allergies Social History Tobacco Never (less than 100 in lifetime) Tobacco Use:. Never Smokeless Tobacco Use:. Household tobacco concerns: No., 08/01/2023 Immunizations Vaccine Date Status SARS-CoV-2 (COVID-19) mRNA BNT-162b2 vax 04/02/2020 Recorded SARS-CoV-2 (COVID-19) mRNA BNT-162b2 vax 03/12/2020 Recor (more content not included)... Normal [facility] Comment on above: Result Comment: Elec tronically Signed By: Cleo Hassan\.br\Date and Time Signed: 08/01/23 15:12 EDT HEMATOLOGYOrdered By: SYSTEM SYSTEM on 08-01-2023 Anisocytosis Ql (Bld) PRESENT *NA* (08/01/23 3:00 PM) Invalid Interpretation Code Rem[facility] Hem[facility] Hypochromia Auto Ql (Bld) PRESENT *NA* (08/01/23 3:00 PM) Invalid Interpretation Code [facility] Microcytes Ql (Bld) PRESENT *NA* (08/01/23 3:00 PM) Invalid Interpretation Code [facility] Monocytes/100 WBC (Bld) 6.8 % Normal 4.0 - 14.0 % Remisol Heme Ovalocytes LM Ql (Bld) PRESENT *NA* (08/01/23 3:00 PM) Invalid Interpretation Code Remisol Heme RBC size Nom (Bld) SEE MORPHOLOGY *NA* (08/01/23 3:00 PM) Invalid Interpretation Code Remisol Heme Family Medicine Office/Clini c Noteon 03-30-2023 Family Medicine Office/Clinic Note HPI Staff Morro is a 37 year old female presenting for acute back pain Pain characteristics: Pain location: Lower back ( Spondylolysis ) Intensity: 8/10 Pressure/crushing pain Onset: 2 weeks Medication used: Gabapentin Pt states L5 is pushing into spinal cord, has been taking gabapentin PRN was getting from pain management and is here to get refills now from her PCP. pt has been doing leg stretches Would like to discuss weight loss options History of Present Illness pt presents today with chronic low back pain that is flared up Review of Systems PHQ Score Initial Depression Screen Score: 0 SCORE ROS - Provider Constitutional: no fever, no chills, no sweats, no fatigue Respiratory: no shortness of breath, no cough, no orthopnea, no wheezing. Cardiovascular: no chest pain, no palpitations, no edema. Neurologic: no headache, no dizziness, no numbness, no weakness. low back pain Physical Exam Vitals & Measurements HR: 88(Peripheral) RR: 18 BP: 142/90 SpO2: 98% HT: 63 in HT: 161 cm WT: 107.22 kg WT: 235.884 lb BMI: 41.36 General: alert, no acute distress ENMT: oral mucosa moist, no pharyngeal erythema or exudate Cardiovascular: regular rate and rhythm, normal peripheral perfusion Respiratory: Lungs CTA, respirations non labored Extremities: no deformity, no trauma Neurological: oriented x 4, LOC appropriate for age, CN II-XII intact, motor strength equal & normal bilaterally, speech normal Assessment/Plan 1. Spondylosis (M47.9: Spondylosis, unspecified) pt presents today with 8/10 low back pain. states pain management was giving her gabapentin. provider unable to find and prescriptions of gabapentin filled in the last 3 years. pt states she has the bottle at home. pt will bring bottle into office for provider to confirm dose. prednisoone sent to pharmacy in the mean time to get her a little relief. RTC as needed. would like to try ozempic through [facility] in the future. Ordered: predniSONE, See Instructions, 6 tabs for 2 days,5 tabs for 2 days,4 tabs for 2 days,3 tabs for 2 days,2 tabs for 2 days,1 tab for 2 days, # 42 tab(s), Refills(s) 0, Pharmacy: [facility]/pharmacy #[id number], 161, cm, 03/29/23 15:27:00 EST, Height/Length Dosing, 107.2, kg, 02/... 2. Low back pain (M54.50: Low back pain, unspecified) steroid sent to pharmcy Ordered: predniSONE, See Instructions, 6 tabs for 2 days,5 tabs for 2 days,4 tabs for 2 days,3 tabs for 2 days,2 tabs for 2 days,1 tab for 2 days, # 42 tab(s), Refills(s) 0, [id number], 161, cm, 03/29/23 15:27:00 EST, Height/Length Dosing, 107.2, kg, 02/... 3. BMI 40.0-44.9, adult (Z68.41: Body mass index [BMI] 40.0-44.9, adult) BMI education complete Ordered: predniSONE, See Instructions, 6 tabs for 2 days,5 tabs for 2 days,4 tabs for 2 days,3 tabs for 2 days,2 tabs for 2 days,1 tab for 2 days, # 42 tab(s), Refills(s) 0, Pharmacy: [facility]/pharmacy #[id number], 161, cm, 03/29/23 15:27:00 EST, Height/Length Dosing, 107.2, kg, 02/... 4. Non-smoker (Z78.9: Other specified health status) continue not smoking Ordered: predniSONE, See Instructions, 6 tabs for 2 days,5 tabs for 2 days,4 tabs for 2 days,3 tabs for 2 days,2 tabs for 2 days,1 tab for 2 days, # 42 tab(s), Refills(s) 0, Pharmacy: [facility]/pharmacy #[id number], 161, cm, 03/29/23 15:27:00 EST, Height/Length Dosing, 107.2, kg, 02/... Follow-up No qualifying data available Problem List/Past Medical History Ongoing Asthma Cyst of thyroid Elevated creatine kinase Elevated glucose Elevated WBCs Low back pain Spondylosis Weight gain Wellness examination Historical No qualifying data Procedure/Surgical History Appendectomy, delivery, Cholecystectomy, Gastric sleeve, Parotidectomy. Medications Advair Diskus 250 mcg-50 mcg inhalation powder, 1 puff(s), Inhalation, BID Caplyta 42 mg oral capsule, 42 mg= 1 cap(s), Oral, Daily eszopiclone 3 mg Tab, 3 mg= 1 tab(s), Oral, Once a day (at bedtime), PRN predniSONE 10 mg Tab, See Instructions sertraline 100 mg Tab Ventolin HFA 90 mcg/inh Aerosol-Adpt, 2 puff(s), Inhalation, q4hr, PRN, 5 refills Allergies No Known Allergies Social History Tobacco Never (less than 100 in lifetime) Tobacco Use:. Never Smokeless Tobacco Use:. Household tobacco concerns: No., 03/29/2023 Immunizations Vaccine Date Status SARS-CoV-2 (COVID-19) mRNA BNT-162b2 vax 04/02/2020 Recorded SARS-CoV-2 (COVID-19) mRNA BNT-162b2 vax 03/12/2020 Recorded Normal [facility] Comment on above: Result Comment: Elec tronically Signed By: Cleo Hassan\.br\Date and Time Signed: 03/30/23 12:42 EST ED Note-Physicianon 01-26-20 ED Note-Physician [id number] 2019 [id number] F Normal [facility] Family Medicine Office/Clini c Noteon 01-25-2023 Family Medicine Office/Clinic Note HPI Staff Morro is a 37 year old female presenting to discuss results ER followup: Hospital: [facility] Visit date: 01/05/23 Symptoms the patient presented with: SOB, exacerbation of Asthma Symptom onset/injury onset: Testing Performed: labs, Ekg chest x-ray New medications: no Current concerns: pt would like to go over labs and all testing History of Present Illness pt was seen in ER for asthma exacerbation.had some abnormal labs that they wanted her to see PCP for Review of Systems PHQ Score Initial Depression Screen Score: 0 SCORE ROS - Provider Constitutional: no fever, no chills, no sweats, no fatigue Respiratory: no shortness of breath, no cough, no orthopnea, no wheezing. Cardiovascular: no chest pain, no palpitations, no edema. Neurologic: no headache, no dizziness, no numbness, no weakness. Physical Exam Vitals & Measurements HR: 66(Peripheral) RR: 18 BP: 122/80 SpO2: 98% HT: 63 in HT: 161 cm WT: 106.2 kg WT: 233.64 lb BMI: 40.97 General: alert, no acute distress ENMT: oral mucosa moist, no pharyngeal erythema or exudate Cardiovascular: regular rate and rhythm, normal peripheral perfusion Respiratory: Lungs CTA, respirations non labored Extremities: no deformity, no trauma Neurological: oriented x 4, LOC appropriate for age, CN II-XII intact, motor strength equal & normal bilaterally, speech normal Assessment/Plan 1. Elevated glucose (R73.09: Other abnormal glucose) pt was seem in ER for asthma exacerbation. labs showed elevated glucose. will drawn hgba1c in office today. all question answered. RTC as needed Ordered: Automated Diff CBC w/ Auto Diff Comprehensive Metabolic Panel eGFR HgbA1c Lab Specimen Collect [id number] 2. Non-smoker (Z78.9: Other specified health status) continue not smoking Ordered: Automated Diff CBC w/ Auto Diff Comprehensive Metabolic Panel eGFR HgbA1c Lab Specimen Collect [id number] 3. Elevated WBCs (D72.829: Elevated white blood cell count, unspecified) WBC's were elevated when in hospital for asthma exacerbation. WBC's were elevated Ordered: Automated Diff CBC w/ Auto Diff Comprehensive Metabolic Panel eGFR HgbA1c Lab Specimen Collect [id number] 4. Elevated creatine kinase (R74.8: Abnormal levels of other serum enzymes) CMP drawn in office today. will follow up on labs Ordered: Automated Diff CBC w/ Auto Diff Comprehensive Metabolic Panel eGFR HgbA1c Lab Specimen Collect [id number] 5. Weight gain (R63.5: Abnormal weight gain) pt is going to look into [facility] if she is eligible for $25 co pay. will call office if she is eligible Ordered: Lab Specimen Collect [id number] 6. BMI 40.0-44.9, adult (Z68.41: Body mass index [BMI] 40.0-44.9, adult) BMI education complete Ordered: Automated Diff CBC w/ Auto Diff Comprehensive Metabolic Panel eGFR HgbA1c Follow-up No qualifying data available Problem List/Past Medical History Ongoing Asthma Cyst of thyroid Elevated creatine kinase Elevated glucose Elevated WBCs Weight gain Wellness examination Historical No qualifying data Procedure/Surgical History Appendectomy, delivery, Cholecystectomy, Gastric sleeve, Parotidectomy. Medications Advair Diskus 500 mcg-50 mcg inhalation powder, See Instructions Albuterol (Eqv-ProAir HFA), 2 puff(s), Inhalation, q4hr, PRN eszopiclone 3 mg Tab, 3 mg= 1 tab(s), Oral, Once a day (at bedtime), PRN lamotrigine 150 mg Tab lurasidone 60 mg oral tablet, 60 mg= 1 tab(s), Oral, Daily sertraline 100 mg Tab Ventolin HFA 90 mcg/inh Aerosol-Adpt, 2 puff(s), Inhalation, q4hr, PRN, 5 refills Allergies No Known Allergies Social History Tobacco Never (less than 100 in lifetime) Tobacco Use:. Never Smokeless Tobacco Use:. Household tobacco concerns: No., 01/24/2023 Immunizations Vaccine Date Status SARS-CoV-2 (COVID-19) mRNA BNT-162b2 vax 04/02/2020 Recorded SARS-CoV-2 (COVID-19) mRNA BNT-162b2 vax 03/12/2020 Recorded Normal [facility] Comment on above: Result Comment: Elec tronically Signed By: Cleo Hassan\.br\Date and Time Signed: 01/25/23 14:49 EST Ambulatory Visit Summaryon 1 03-27-2022 Ambulatory Visit Summary MORRO MALONEY :1985 Visit Date:01/24/2023 Ambulatory Visit Instructions Your Diagnosis Elevated glucose Non-smoker Elevated WBCs Elevated creatine kinase Weight gain BMI 40.0-44.9, adult Your Care Team Attending Physician - Cleo Hassan Primary Care Physician - Cleo Hassan This Is Your Medications List albuterol (Albuterol (Eqv-ProAir HFA)) albuterol (Ventolin HFA 90 mcg/inh Aerosol-Adpt) eszopiclone (eszopiclone 3 mg Tab) fluticasone-salmeterol (Advair Diskus 500 mcg-50 mcg inhalation powder) lamotrigine (lamotrigine 150 mg Tab) lurasidone (lurasidone 60 mg oral tablet) sertraline (sertraline 100 mg Tab) Procedures Performed Appendectomy, delivery, Cholecystectomy, Gastric sleeve, Parotidectomy. Discharge Vitals Heart Rate (Peripheral) 66 Respiratory Rate 18 Blood Pressure 122/80 Height 161 cm Height 63 in Weight 106.2 kg Weight 233.64 lb BMI 40.97 Medications What How Much When Instructions Unchanged albuterol (Albuterol (Eqv-ProAir HFA)) 2 Puffs Inhalation Every 4 hours as needed for Shortness of breath or wheezing Unchanged albuterol (Ventolin HFA 90 mcg/ inh Aerosol-Adpt) 2 Puffs Inhalation Every 4 hours as needed for for wheezing Unchanged eszopiclone (eszopiclone 3 mg Tab) 1 Tablets By Mouth Once a day (at bedtime) as needed for for insomnia Unchanged fluticasone-salmeterol (Advair Diskus 500 mcg-50 mcg inhalation powder) See instructions 2 puffs at bedtime Unchanged lamotrigine (lamotrigine 150 mg Tab) Unchanged lurasidone (lurasidone 60 mg oral tablet) 1 Tablets By Mouth Every day Unchanged sertraline (sertraline 100 mg Tab) Allergies No Known Allergies Problems Ongoing - Any problem that you are currently receiving treatment for. Asthma Cyst of thyroid Elevated creatine kinase Elevated glucose Elevated WBCs Weight gain Wellness examination Patient Survey You may receive a survey via text or e-mail asking about your office visit. Please share your experience with us by completing your survey. We appreciate your feedback and thank you for choosing us for your care. Normal [facility] Auto Diffon 01-24-2023 Basophils/100 WBC (Bld) 1.2 % Normal 0.0-2.0 [facility] Comment on above: Order Comment: Order Added by Discern Expert. Performed By: #### 2 [id number], [id number], [id number], [id number] ####[facility] [address] [place] [address] Basophils/Leukocytes Auto (Bld) [Pure # fraction] 0.1 E9/L Normal 0.0-0.2 [facility] Comment on above: Order Comment: Order Added by Discern Expert. Performed By: #### 2 [id number], [id number], [id number] ####[facility] [address] [place] [address] Eosinophils/100 WBC (Bld) 4.7 % Normal 0.0-8.0 [facility] Comment on above: Order Comment: Order Added by Felicita Expert. Performed By: #### 2 [id number], [id number], [id number], [id number], [id number] ####[facility] [address] [place] [address] Eosinophils/Leukocytes Auto (Bld) [Pure # fraction] 0.5 E9/L Normal 0.0-0.5 [facility] Comment on above: Order Comment: Order Added by Felicita Expert. Performed By: #### 2 [id number], [id number], [id number], [id number], [id number] ####[address] [address] Lymphocytes/100 WBC (Bld) 34.2 % Normal 14.0-50.0 [facility] Comment on above: Order Comment: Order Added by Felicita Expert. Performed By: #### 2 [id number], [id number], [id number], [id number], [id number] ####[address] [address] Lymphocytes/Leukocytes Auto (Bld) [Pure # fraction] 3.4 E9/L Normal 1.0-4.0 [facility] Comment on above: Order Comment: Order Added by Felicita Expert. Performed By: #### 2 [id number], [id number], [id number], [id number], [id number] ####[address] [address] Monocytes/100 WBC (Bld) 6.7 % Normal 4.0-14.0 [facility] Comment on above: Order Comment: Order Added by Felicita Expert. Performed By: #### 2 [id number], [id number], [id number], [id number], [id number] ####[facility] [address] [place] [address] Monocytes/Leukocytes Auto (Bld) [Pure # fraction] 0.7 E9/L Normal 0.2-1.0 [facility] Comment on above: Order Comment: Order Added by Discern Expert. Performed By: #### 2 301375, [id number], [id number], [id number], [id number] ####[address] [place] [address] Neutrophils/100 WBC (Bld) 53.2 % Normal 36.0-75.0 [facility] Comment on above: Order Comment: Order Added by Discern Expert. Performed By: #### 2 [id number], [id number], [id number], [id number], [id number] ####[address] [place] [address] Neutrophils/Leukocytes Auto (Bld) [Pure # fraction] 5.4 E9/L Normal 2.0-7.5 [facility] Comment on above: Order Comment: Order Added by Discern Expert. Performed By: #### 2 354938, 05211166, 9034528, 286792885, 5892003 ####[address] [address] CBC w/ Auto Diffon 3 Erythrocyte distribution width (RBC) [Ratio] 16.7 % High 10.9-14.2 [facility] Comment on above: Performed By: #### 2 181811, 84689109, 1312179, 646904201, 6533900 ####[facility] [address] [place] [address] Hematocrit (Bld) [Volume fraction] 38.2 % Normal 34.0-46.0 [facility] Comment on above: Performed By: #### 2 224114, 30441802, 7905835, 910233182, 4366989 ####[facility] [address] [place] [address] Hemoglobin (Bld) [Mass/Vol] 12.3 g/dL Normal 12.0-16.0 [facility] Comment on above: Performed By: #### 2 358275, 04824969, 0281759, 024247448, 6609263 ####[facility] [address] [place] [address] MCH (RBC) [Entitic mass] 26.4 pg Low 27.0-34.0 [facility] Comment on above: Performed By: #### 2 544389, 21996590, 9708074, 321040718, 2351295 ####[address] [address] MCHC (RBC) [Mass/Vol] 32.3 g/dL Normal 31.4-36.[address] [facility] Comment on above: Performed By: #### 2 314190, 78326725, 0889099, 505350115, 5568742 ####[place] [address] MCV (RBC) [Entitic vol] 81.8 fL Normal 80.0-100.0 [facility] Comment on above: Performed By: #### 2 442621, 04666389, 3552474, 074333455, 2199125 ####[address] [address] Platelet mean volume (Bld) [Entitic vol] 8.1 fL Normal 6.4-10.8 [facility] Comment on above: Performed By: #### 2 147562, 53400567, 6510107, 942300157, 8106997 ####[address] [address] Platelets (Bld) [#/Vol] 334.0 E9/L Normal 150.0-500.0 [facility] Comment on above: Performed By: #### 2 323599, 76754902, 1632277, 078562896, 5009320 ####[address] [address] RBC (Bld) [#/Vol] 4.7 E12/L Normal 4.3-5.9 [facility] Comment on above: Performed By: #### 2 462842, 23068247, 0567088, 859900928, 3688935 ####[facility] [address] [place] [address] WBC corrected for nucl RBC Auto (Bld) [#/Vol] 10.1 E9/L Normal 4.0-11.0 [facility] Comment on above: Performed By: #### 2 694349, 56295146, 9658946, 928652682, 0408177 ####[facility] [address] [place] [address] CMPon 01-24-2023 Albumin [Mass/Vol] 3.9 g/dL Normal 3.3-5.0 [facility] Comment on above: Performed By: #### 2 156550, 13792433, 6419783, 004085936, 8442464 ####[place] [address] [place] [address] Albumin/Globulin (S) [Mass conc ratio] 1.3 Normal 1.1-2.2 [facility] Comment on above: Performed By: #### 2 496527, 21484513, 2829228, 588610830, 9439769 ####[place] [address] [place] [address] ALP [Catalytic activity/Vol] 81 Int._Unit/L Normal 21-98 [facility] Comment on above: Performed By: #### 2 497566, 43390472, 9915017, 784188702, 5959728 ####[facility] [address] [place] [address] ALT No additional P-5'-P [Catalytic activity/Vol] 14 Int._Unit/L Normal 6-46 [facility] Comment on above: Performed By: #### 2 525120, 28345986, 7563914, 566168561, 8755421 ####[place] [address] [place] [address] Anion gap [Moles/Vol] 9 mmol/L Normal 6-[address] [facility] Comment on above: Performed By: #### 2 857549, 06421246, 9854431, 214158508, 2775253 ####[facility] [address] [place] [address] AST [Catalytic activity/Vol] 18 Int._Unit/L Normal 5-43 [facility] Comment on above: Performed By: #### 2 552473, 64244542, 6499444, 646466147, 3460932 ####[facility] [address] [place] [address] Bilirubin [Mass/Vol] 0.2 mg/dL Normal 0.0-1.1 [facility] Comment on above: Performed By: #### 2 545698, 36503147, 0920133, 153418633, 3072601 ####[facility] [address] [place] [address] Calcium [Mass/Vol] 8.9 mg/dL Normal 8.9-11.1 [facility] Comment on above: Performed By: #### 2 950627, 13581826, 8415249, 924397099, 3869344 ####[facility] [address] [place] [address] Chloride [Moles/Vol] 104 mmol/L Normal 101-111 [facility] Comment on above: Performed By: #### 2 359552, 57169894, 8311712, 615649367, 9108247 ####[facility] [address] [place] [address] CO2 [Moles/Vol] 25 mmol/L Normal 21-31 [facility] Comment on above: Performed By: #### 2 742374, 76736083, 2244964, 471261487, 3414447 ####[facility] [address] [place] [address] Creatinine [Mass/Vol] 1.1 mg/dL Normal 0.5-1.[address] [facility] Comment on above: Performed By: #### 2 153124, 39153755, 0317411, 206790115, 1167201 ####[facility] [address] [place] [address] Globulin (S) [Mass/Vol] 3.1 g/dL Normal 1.4-4.0 [facility] Comment on above: Performed By: #### 2 794724, 88167185, 8453743, 153126970, 5940373 ####[facility] [address] [place] [address] Glucose [Mass/Vol] 87 mg/dL Normal 55-199 [facility] Comment on above: Result Comment: If t his glucose result represents a fasting glucose, interpretation should refer to the following reference range: 55-99 mg/dL Performed By: #### 2 878467, 49648321, 8224804, 918042708, 7855384 ####[facility] [address] [place] [address] Potassium [Moles/Vol] 4.3 mmol/L Normal 3.5-5.[address] [facility] Comment on above: Performed By: #### 2 915499, 48564987, 6267373, 064775437, 0429150 ####[facility] [address] [place] [address] Protein [Mass/Vol] 7.0 g/dL Normal 6.0-7.8 [facility] Comment on above: Performed By: #### 2 337439, 62120903, 9936207, 824762107, 5197304 ####[facility] [address] [place] [address] Sodium [Moles/Vol] 134 mmol/L Low 135-145 [facility] Comment on above: Performed By: #### 2 345420, 55452305, 7897216, 351368560, 3871969 ####[facility] [address] [place] [address] Urea nitrogen [Mass/Vol] 13 mg/dL Normal 5-21 [facility] Comment on above: Performed By: #### 2 202797, 33177615, 4319967, 104657332, 9259171 ####[facility] [address] [place] [address] Urea nitrogen/Creatinine [Mass ratio] 12 No Units Normal 10-20 [facility] Comment on above: Performed By: #### 2 260791, 88520429, 9687852, 625993229, 8334656 ####[facility] [address] [place] [address] KvuM6olm 01-24-2023 HbA1c (Bld) [Mass fraction] 5.9 % Normal <=5.9 [facility] Comment on above: Performed By: #### 2 022386, 84602414, 4934452, 694563016, 3928165 ####[facility] [address] [place] [address] eGFRon 01-24-2023 GFR/1.73 sq M.predicted among non-blacks MDRD (S/P/Bld) [Vol rate/Area] 66 mL/min/1.73 m2 Normal >=59 [facility] Comment on above: Order Comment: Order added by Discern Expert. Result Comment: Tennis Coach yasemin kidney disease could be indicated at eGFR's of less than 60 mL/min/1.73m2. Kidney failure is indicated at less than 15 mL/min/1.73m2. Performed By: #### 2 336914, 51623258, 6447061, 599272684, 9260496 ####[facility] [address] [place] [address] Reminderson 10-21-2022 Reminders - From: Cleo Hassan To: [facility] - Clinical; Sent: 10/19/2022 09:37:57 EDT Show up: 10/19/2022 09:34:00 EDT Subject: Ambulatory Reminder Due Date/Time: 10/20/2022 09:33:00 EDT Bruna schafer labs were normal except cholesterol and triglycerides were slightly elevated. encourage healthy food choices, decreasing greasy fatty foods. and we started her on adipex, so just a little bit of weight loss will help decrease both of those. no need to start medication at this time. Results: Date Result Name Ind Value Ref Range 10/18/2022 14:25 WBC 8.0 E9/L (4.0 - 11.0) 10/18/2022 14:25 RBC 4.6 E12/L (4.3 - 5.9) 10/18/2022 14:25 HGB 12.0 gm/dL (12.0 - 16.0) 10/18/2022 14:25 Hct 37.2 % (34.0 - 46.0) 10/18/2022 14:25 MCV 81.2 fL (80.0 - 100.0) 10/18/2022 14:25 MCH ((L)) 26.2 pg (27.0 - 34.0) 10/18/2022 14:25 MCHC 32.3 gm/dL (31.4 - 36.0) 10/18/2022 14:25 RDW ((H)) 18.0 % (10.9 - 14.2) 10/18/2022 14:25 Platelet 312.0 E9/L (150.0 - 500.0) 10/18/2022 14:25 MPV 7.8 fL (6.4 - 10.8) 10/18/2022 14:25 Neutro Auto 53.6 % (36.0 - 75.0) 10/18/2022 14:25 Lymph Auto 37.3 % (14.0 - 50.0) 10/18/2022 14:25 [place] Auto 4.6 % (4.0 - 14.0) 10/18/2022 14:25 Eos Auto 3.4 % (0.0 - 8.0) 10/18/2022 14:25 Basophil Auto 1.1 % (0.0 - 2.0) 10/18/2022 14:25 Neutro Absolute 4.3 E9/L (2.0 - 7.5) 10/18/2022 14:25 Lymph Absolute 3.0 E9/L (1.0 - 4.0) 10/18/2022 14:25 [place] Absolute 0.4 E9/L (0.2 - 1.0) 10/18/2022 14:25 Eos Absolute 0.3 E9/L (0.0 - 0.5) 10/18/2022 14:25 Basophil Absolute 0.1 E9/L (0.0 - 0.2) 10/18/2022 14:25 Glucose Lvl 130 mg/dL (55 - 199) 10/18/2022 14:25 BUN 15 mg/dL (5 - 21) 10/18/2022 14:25 Creatinine 1.1 mg/dL (0.5 - 1.3) 10/18/2022 14:25 eGFR 66 mL/min/1.73 m2 (>=59 - ) 10/18/2022 14:25 BUN/Creat Ratio 14 (10 - 20) 10/18/2022 14:25 Sodium Lvl 137 mmol/L (135 - 145) 10/18/2022 14:25 Potassium Lvl 4.0 mmol/L (3.5 - 5.3) 10/18/2022 14:25 Chloride 106 mmol/L (101 - 111) 10/18/2022 14:25 CO2 22 mmol/L (21 - 31) 10/18/2022 14:25 AGAP 13 mEq/L (6 - 16) 10/18/2022 14:25 Calcium Lvl 9.1 mg/dL (8.9 - 11.1) 10/18/2022 14:25 Alk Phos 85 Int._Unit/L (21 - 98) 10/18/2022 14:25 ALT 12 Int._Unit/L (6 - 46) 10/18/2022 14:25 AST 20 Int._Unit/L (5 - 43) 10/18/2022 14:25 Total Protein 7.0 gm/dL (6.0 - 7.8) 10/18/2022 14:25 Albumin Lvl 4.0 gm/dL (3.3 - 5.0) 10/18/2022 14:25 Globulin 3.0 gm/dL (1.4 - 4.0) 10/18/2022 14:25 A/G Ratio 1.3 (1.1 - 2.2) 10/18/2022 14:25 Bili Total 0.2 mg/dL (0.0 - 1.1) 10/18/2022 14:25 Chol ((H)) 240 mg/dL (120 - 200) 10/18/2022 14:25 Trig ((H)) 227 mg/dL ( - <=149) 10/18/2022 14:25 HDL 44 mg/dL 10/18/2022 14:25 LDL Direct ((H)) 164 mg/dL ( - <=129) 10/18/2022 14:25 VLDL ((H)) 45 mg/dL (7 - 40) 10/18/2022 14:25 TSH 1.59 mcIU/mL (0.34 - 5.60) 10/18/2022 14:25 T4 Free 0.59 ng/dL (0.58 - 1.64) attempted to reach patient mailbox is full unable to LVM. From: Carmel Ledbetter ([facility] - Clinical) To: Cleo Hassan; Sent: 10/21/2022 09:19:55 EDT Show up: 10/21/2022 09:19:00 EDT Subject: RE: Ambulatory Reminder notified patient of labs results. Pt states she is concerned about a growth on her thyroid she said before her thyroid levels were normal and didn't show anything. She said she can feel something pushing against her esophagus. From: Cleo Hassan To: [facility] - Clinical; Sent: 10/21/2022 09:24:10 EDT Show up: 10/21/2022 09:24:00 EDT Subject: RE: Ambulatory Reminder will send order to [facility]. pt notified Normal [facility] T3 Freeon 10-20-2022 Free T3 [Mass/Vol] 2.8 pg/mL Invalid Interpretation Code 2.0-4.4 [facility] Comment on above: Result Comment: Perf ormed at: [facility] [address] [id number] PhD Susan Cadet Performed By: #### 2 574078, 3246355, 1217568, 0997326, 3916687, 95219285, 1312184, 1286944 ####[facility] [address] [place] [address] Medication Consenton 023 Medication Consent [id number] [id number]: 127 Normal [facility] Ambulatory Visit Summaryon 0 10-18-2022 Ambulatory Visit Summary MORRO MALONEY :1985 Visit Date:10/18/2022 Ambulatory Visit Instructions Your Diagnosis Wellness examination Weight gain Cyst of thyroid Asthma BMI 40.0-44.9, adult Non-smoker Your Care Team Attending Physician - Cleo Hassan Primary Care Physician - Cleo Hassan This Is Your Medications List albuterol (Albuterol (Eqv-ProAir HFA)) albuterol (Ventolin HFA 90 mcg/inh Aerosol-Adpt) eszopiclone (eszopiclone 3 mg Tab) fluticasone-salmeterol (Advair Diskus 500 mcg-50 mcg inhalation powder) lamotrigine (lamotrigine 150 mg Tab) lurasidone (lurasidone 60 mg oral tablet) sertraline (sertraline 100 mg Tab) Procedures Performed Appendectomy, delivery, Cholecystectomy, Gastric sleeve, Parotidectomy. Discharge Vitals Heart Rate (Peripheral) 78 Respiratory Rate 18 Blood Pressure 112/68 Height 161 cm Height 63 in Weight 105.6 kg Weight 232.32 lb BMI 40.74 Medications What How Much When Instructions Unchanged albuterol (Albuterol (Eqv-ProAir HFA)) 2 Puffs Inhalation Every 4 hours as needed for Shortness of breath or wheezing Unchanged albuterol (Ventolin HFA 90 mcg/ inh Aerosol-Adpt) 2 Puffs Inhalation Every 4 hours as needed for for wheezing Pickup at [facility] Unchanged eszopiclone (eszopiclone 3 mg Tab) 1 Tablets By Mouth Once a day (at bedtime) as needed for for insomnia Unchanged fluticasone-salmeterol (Advair Diskus 500 mcg-50 mcg inhalation powder) See instructions 2 puffs at bedtime Unchanged lamotrigine (lamotrigine 150 mg Tab) Unchanged lurasidone (lurasidone 60 mg oral tablet) 1 Tablets By Mouth Every day Unchanged sertraline (sertraline 100 mg Tab) Pharmacy Information [facility]: [address] [facility] [address] [place], [place] [id number] [phone] Allergies No Known Allergies Problems Ongoing - Any problem that you are currently receiving treatment for. Asthma Cyst of thyroid Weight gain Wellness examination Normal [facility] Auto Diffon 10-18-2022 Basophils/100 WBC (Bld) 1.1 % Normal 0.0-2.0 [facility] Comment on above: Order Comment: Order Added by Discern Expert. Performed By: #### 2 172697, 9459416, 9732567, 4112983, 2486647, 90978187, 3298009, 6001924 ####[facility] [address] [place] [address] Basophils/Leukocytes Auto (Bld) [Pure # fraction] 0.1 E9/L Normal 0.0-0.2 [facility] Comment on above: Order Comment: Order Added by Discern Expert. Performed By: #### 2 179055, 4002374, 9268995, 1365396, 6310195, 70296994, 8434126, 3183166 ####[facility] [address] [place] [address] Eosinophils/100 WBC (Bld) 3.4 % Normal 0.0-8.0 [facility] Comment on above: Order Comment: Order Added by Discern Expert. Performed By: #### 2 897268, 2198799, 3233136, 8907529, 8477532, 11837829, 8252884, 1023770 ####[facility] [address] [place] [address] Eosinophils/Leukocytes Auto (Bld) [Pure # fraction] 0.3 E9/L Normal 0.0-0.5 [facility] Comment on above: Order Comment: Order Added by Discern Expert. Performed By: #### 2 121659, 2520762, 6029817, 6439360, 8574598, 47470024, 6331467, 9651184 ####[place] [address] [place] [address] Lymphocytes/100 WBC (Bld) 37.3 % Normal 14.0-50.0 [facility] Comment on above: Order Comment: Order Added by Discern Expert. Performed By: #### 2 386910, 9045632, 6580395, 6520402, 9382194, 68300393, 1295409, 8451373 ####[place] [address] [place] [address] Lymphocytes/Leukocytes Auto (Bld) [Pure # fraction] 3.0 E9/L Normal 1.0-4.0 [facility] Comment on above: Order Comment: Order Added by Discern Expert. Performed By: #### 2 152687, 3192966, 4229943, 8035196, 2690772, 12011162, 9061095, 7786560 ####[address] [address] Monocytes/100 WBC (Bld) 4.6 % Normal 4.0-14.0 [facility] Comment on above: Order Comment: Order Added by Discern Expert. Performed By: #### 2 962251, 3382561, 7009534, 4764198, 5409661, 41539611, 1486369, 1267554 ####[place] [address] [place] [address] Monocytes/Leukocytes Auto (Bld) [Pure # fraction] 0.4 E9/L Normal 0.2-1.0 [facility] Comment on above: Order Comment: Order Added by Discern Expert. Performed By: #### 2 314136, 6249833, 1696097, 6760551, 7248318, 65537543, 1974326, 0752280 ####[place] [address] [place] [address] Neutrophils/100 WBC (Bld) 53.6 % Normal 36.0-75.0 [facility] Comment on above: Order Comment: Order Added by Discern Expert. Performed By: #### 2 616832, 5994664, 7509364, 9021727, 1966086, 92671648, 0868341, 9548404 ####[facility] [address] [place] [address] Neutrophils/Leukocytes Auto (Bld) [Pure # fraction] 4.3 E9/L Normal 2.0-7.5 [facility] Comment on above: Order Comment: Order Added by Discern Expert. Performed By: #### 2 407500, 4817403, 0445066, 5187180, 1457557, 10968694, 7878950, 0454616 ####[place] [address] [place] [address] CBC w/ Auto Diffon 3 Erythrocyte distribution width (RBC) [Ratio] 18.0 % High 10.9-14.2 [facility] Comment on above: Performed By: #### 2 897674, 2520848, 6926087, 7815747, 3507879, 73095280, 0809834, 3979616 ####[place] [address] [place] [address] Hematocrit (Bld) [Volume fraction] 37.2 % Normal 34.0-46.0 [facility] Comment on above: Performed By: #### 2 497913, 2821473, 3625676, 0066265, 5928660, 26259568, 6444470, 9902300 ####[address] [address] Hemoglobin (Bld) [Mass/Vol] 12.0 g/dL Normal 12.0-16.0 [facility] Comment on above: Performed By: #### 2 989192, 8275863, 2854797, 2108327, 7555619, 25588755, 8602819, 7563051 ####[place] [address] [place] [address] MCH (RBC) [Entitic mass] 26.2 pg Low 27.0-34.0 [facility] Comment on above: Performed By: #### 2 368798, 7527420, 1336784, 4358840, 5731783, 10979307, 2434828, 7538376 ####[facility] [address] [place] [address] MCHC (RBC) [Mass/Vol] 32.3 g/dL Normal 31.4-36.[address] [facility] Comment on above: Performed By: #### 2 188969, 1666793, 6499032, 7025902, 5985872, 36531943, 2364537, 1794581 ####[facility] [address] [place] [address] MCV (RBC) [Entitic vol] 81.2 fL Normal 80.0-100.0 [facility] Comment on above: Performed By: #### 2 501243, 5573503, 2989483, 8723730, 7442489, 13236857, 2809091, 6112014 ####[place] [address] Platelet mean volume (Bld) [Entitic vol] 7.8 fL Normal 6.4-10.8 [facility] Comment on above: Performed By: #### 2 576453, 3643439, 8859986, 5375830, 5818846, 67143450, 6828195, 7052148 ####[address] [address] Platelets (Bld) [#/Vol] 312.0 E9/L Normal 150.0-500.0 [facility] Comment on above: Performed By: #### 2 151677, 4281048, 7720702, 6061308, 2045981, 51740485, 3697271, 9178837 ####[address] [address] RBC (Bld) [#/Vol] 4.6 E12/L Normal 4.3-5.9 [facility] Comment on above: Performed By: #### 2 046617, 6763448, 0338641, 3271403, 7376880, 79050264, 6382687, 3816785 ####[facility] [address] [place] [address] WBC corrected for nucl RBC Auto (Bld) [#/Vol] 8.0 E9/L Normal 4.0-11.0 [facility] Comment on above: Performed By: #### 2 873481, 3586951, 6413983, 6284733, 8142327, 52110426, 6164362, 7839623 ####[facility] [address] [place] [address] CHEMISTRYOrdered By: SYSTEM SYSTEM on 10-18-2022 Albumin [Mass/Vol] 4.0 g/dL Normal 3.3 - 5.0 gm/dL [facility] Albumin/Globulin [Mass ratio] 1.3 {ratio} Normal 1.1 - 2.2 [facility] ALP [Catalytic activity/Vol] 85 [iU]/d Normal 21 - 98 Int._Unit/L [facility] ALT No additional P-5'-P [Catalytic activity/Vol] 12 [iU]/d Normal 6 - 46 Int._Unit/L [facility] Anion gap [Moles/Vol] 13 mmol/L Normal 6 - 16 mEq/L [facility] AST [Catalytic activity/Vol] 20 [iU]/d Normal 5 - 43 Int._Unit/L [facility] Bilirubin [Mass/Vol] 0.2 mg/dL Normal 0.0 - 1 .1 mg/dL [facility] Calcium [Mass/Vol] 9.1 mg/dL Normal 8.9 - 11. 1 mg/dL [facility] Chloride [Moles/Vol] 106 mmol/L Normal 101 - 1 11 mmol/L [facility] Cholesterol [Mass/Vol] 240 mg/dL High 120 - 200 mg/dL [facility] Cholesterol in HDL [Mass/Vol] 44 mg/dL Invalid Interpretation Code [facility] Cholesterol in LDL [Mass/Vol] 164 mg/dL High <=129mg/dL [facility] Cholesterol in VLDL [Mass/Vol] 45 mg/dL High 7 - 40 mg/dL [facility] CO2 [Moles/Vol] 22 mmol/L Normal 21 - 31 mmol/L [facility] Creatinine [Mass/Vol] 1.1 mg/dL Normal 0.5 - 1.3 mg/dL [facility] Free T4 [Mass/Vol] 0.59 ng/dL Normal 0.58 - 1. 64 ng/dL [facility] GFR/1.73 sq M.predicted among non-blacks MDRD (S/P/Bld) [Vol rate/Area] 66 mL/min/1.73 m2 Normal >=59mL/min/ 1.73 m2 FT Chem S Globulin (S) [Mass/Vol] 3.0 g/dL Normal 1.4 - 4.0 gm/dL [facility] Glucose [Mass/Vol] 130 mg/dL Normal 55 - 199 mg/dL [facility] Potassium [Moles/Vol] 4.0 mmol/L Normal 3.5 - 5.3 mmol/L [facility] Protein [Mass/Vol] 7.0 g/dL Normal 6.0 - 7.8 gm/dL [facility] Sodium [Moles/Vol] 137 mmol/L Normal 135 - 145 mmol/L [facility] Triglyceride [Mass/Vol] 227 mg/dL High <=149mg/dL [facility] TSH Qn 1.59 m[IU]/L Normal 0.34 - 5.60 mcIU/mL [facility] Urea nitrogen [Mass/Vol] 15 mg/dL Normal 5 - 21 mg/dL [facility] Urea nitrogen/Creatinine [Mass ratio] 14 mg/mg Normal 10 - 20 [facility] CMPon 10-18-2022 Albumin [Mass/Vol] 4.0 g/dL Normal 3.3-5.0 [facility] Comment on above: Performed By: #### 2 524099, 2852199, 9593247, 1600911, 5085167, 86267325, 7150901, 3329122 ####[facility] [address] [place] [address] Albumin/Globulin (S) [Mass conc ratio] 1.3 Normal 1.1-2.2 [facility] Comment on above: Performed By: #### 2 535020, 7377441, 6385888, 1865913, 3974230, 06627127, 5232279, 1194134 ####[facility] [address] [place] [address] ALP [Catalytic activity/Vol] 85 Int._Unit/L Normal 21-98 [facility] Comment on above: Performed By: #### 2 203902, 5438393, 8333513, 0156408, 9762714, 19936731, 6721611, 8152261 ####[facility] [address] [place] [address] ALT No additional P-5'-P [Catalytic activity/Vol] 12 Int._Unit/L Normal 6-46 [facility] Comment on above: Performed By: #### 2 214695, 2806111, 4453093, 0925499, 3444076, 04431339, 4189895, 3613443 ####[facility] [address] [place] [address] Anion gap [Moles/Vol] 13 mmol/L Normal 6-[address] [facility] Comment on above: Performed By: #### 2 668927, 7784226, 6631240, 3566135, 0209020, 54923305, 7127441, 4195117 ####[facility] [address] [place] [address] AST [Catalytic activity/Vol] 20 Int._Unit/L Normal 5-43 [facility] Comment on above: Performed By: #### 2 780553, 3755831, 5519972, 8481534, 0405154, 11884851, 3433623, 6116034 ####[facility] [address] [place] [address] Bilirubin [Mass/Vol] 0.2 mg/dL Normal 0.0-1.1 [facility] Comment on above: Performed By: #### 2 493575, 2637842, 3331256, 9485317, 8356613, 24261826, 8467367, 2762963 ####[facility] [address] [place] [address] Calcium [Mass/Vol] 9.1 mg/dL Normal 8.9-11.1 [facility] Comment on above: Performed By: #### 2 269668, 1513338, 6829293, 8286932, 8143441, 85307589, 4421417, 0906591 ####[facility] [address] [place] [address] Chloride [Moles/Vol] 106 mmol/L Normal 101-111 [facility] Comment on above: Performed By: #### 2 574734, 2827989, 8485491, 4927075, 4384379, [id number], 5616665, 1275209 ####[facility] [address] [place] [address] CO2 [Moles/Vol] 22 mmol/L Normal 21-31 [facility] Comment on above: Performed By: #### 2 [id number], 2417267, 2088710, 6018639, 7840361, 15950559, 7023509, 6979903 ####[facility] [address] [place] [address] Creatinine [Mass/Vol] 1.1 mg/dL Normal 0.5-1.[address] [facility] Comment on above: Performed By: #### 2 [id number], 3028967, 8653251, 8095787, 2976396, [id number], 7586869, 4849778 ####[facility] [address] [place] [address] Globulin (S) [Mass/Vol] 3.0 g/dL Normal 1.4-4.0 F [facility] Comment on above: Performed By: #### 2 523501, 6955102, 0814918, 3673501, 6349232, 48945090, 4622056, 1496631 ####[facility] [address] [place] [address] Glucose [Mass/Vol] 130 mg/dL Normal 55-199 [facility] Comment on above: Result Comment: If t his glucose result represents a fasting glucose, interpretation should refer to the following reference range: 55-99 mg/dL Performed By: #### 2 [id number], 8159285, 7573732, 5859646, 6605562, [id number], 8531765, 1224897 ####[facility] [address] [place] [address] Potassium [Moles/Vol] 4.0 mmol/L Normal 3.5-5.[address] [facility] Comment on above: Performed By: #### 2 542327, 4072052, 2231180, 2256210, 9120301, 15904136, 6674070, 3566804 ####[facility] [address] [place] [address] Protein [Mass/Vol] 7.0 g/dL Normal 6.0-7.8 [facility] Comment on above: Performed By: #### 2 231409, 1677667, 5793497, 3686443, 6718379, 31654325, 7392345, 0630752 ####[facility] [address] [place] [address] Sodium [Moles/Vol] 137 mmol/L Normal 135-145 [facility] Comment on above: Performed By: #### 2 180183, 0466954, 1802426, 6370716, 0842958, 78841520, 2702296, 4416756 ####[facility] [address] [place] [address] Urea nitrogen [Mass/Vol] 15 mg/dL Normal 5-21 [facility] Comment on above: Performed By: #### 2 879475, 2303021, 1484231, 0885372, 9959513, 01889576, 1414181, 9447532 ####[facility] [address] [place] [address] Urea nitrogen/Creatinine [Mass ratio] 14 No Units Normal 10-20 [facility] Comment on above: Performed By: #### 2 689998, 5355794, 6920327, 3612690, 0225639, 58625327, 3457813, 3824656 ####[facility] [address] [place] [address] Family Medicine Office/Clini c Noteon 10-18-2022 Family Medicine Office/Clinic Note HPI Staff Morro is a 37 year old female establishing care Establish Care: History: Any previous diagnosis: Asthma, Bi Polar, spondlythisis L4, PCOS History of seeing any specialist: Rolly lamas When was your last doctors visit: Last provider: Dr Bekah Selby Any recent labs: nothing within the last year Health Maintenance UTD: Colonoscopy: no Mammogram: no Pelvic/Pap: 3 years ago was normal Acute: Current issues/complaints: Needs refill albuterol INH Would like to discuss weight loss management. Pt states she has gastric sleeve done 06/2021. History of Present Illness pt presents today to establish care. wellness visit Review of Systems ROS - Provider Constitutional: no fever, no chills, no sweats, no fatigue Respiratory: no shortness of breath, no cough, no orthopnea, no wheezing. Cardiovascular: no chest pain, no palpitations, no edema. Neurologic: no headache, no dizziness, no numbness, no weakness. lump near right side of thyroid Physical Exam Vitals & Measurements HR: 78(Peripheral) RR: 18 BP: 112/68 SpO2: 98% HT: 63 in HT: 161 cm WT: 105.6 kg WT: 232.32 lb BMI: 40.74 General: alert, no acute distress ENMT: oral mucosa moist, no pharyngeal erythema or exudate Cardiovascular: regular rate and rhythm, normal peripheral perfusion Respiratory: Lungs CTA, respirations non labored Extremities: no deformity, no trauma Neurological: oriented x 4, LOC appropriate for age, CN II-XII intact, motor strength equal & normal bilaterally, speech normal thyroid palpate slightly enlarged Assessment/Plan 1. Wellness examination (Z00.00: Encounter for general adult medical examination without abnormal findings) pt presents today to establish care. is in need of refills on inhaler. also c/o weight gain and feeling a lump near her thyroid where she had it drained at one time. will draw labs in office today. start adipex. pt to return in 4 weeks. if thyroid labs are abnormal will order u/s Ordered: phentermine, 37.5 mg = 1 tab(s), Oral, Daily, # 30 tab(s), Refills(s) 0, [facility] 161, cm, 10/18/22 14:05:00 EDT, Height/Length Dosing, 105.6, kg, 10/18/22 13:58:00 EDT, Weight Dosing CBC w/ Auto Diff Comprehensive Metabolic Panel Free T4 Lab Specimen Collect 15174 Lipid Panel T3 Free Thyroid Stimulating Hormone 2. Weight gain (R63.5: Abnormal weight gain) pt would like to discuss weight loss. has done well on adipex in the past. medication agreement signed Ordered: phentermine, 37.5 mg = 1 tab(s), Oral, Daily, # 30 tab(s), Refills(s) 0, [facility]: [facility], 161, cm, 10/18/22 14:05:00 EDT, Height/Length Dosing, 105.6, kg, 10/18/22 13:58:00 EDT, Weight Dosing CBC w/ Auto Diff Comprehensive Metabolic Panel Free T4 Lab Specimen Collect 14624 Lipid Panel T3 Free Thyroid Stimulating Hormone 3. 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 she has not had a TSH or u/s of thryoid since then. will draw thryoid labs in office today. if abnormal will order u/s. pt states she feels more swollen on the right side of her neck where they drained the thyroid Ordered: phentermine, 37.5 mg = 1 tab(s), Oral, Daily, # 30 tab(s), Refills(s) 0, [facility], 161, cm, 10/18/22 14:05:00 EDT, Height/Length Dosing, 105.6, kg, 10/18/22 13:58:00 EDT, Weight Dosing 4. Asthma (J45.909: Unspecified asthma, uncomplicated) albuterol refilled Ordered: phentermine, 37.5 mg = 1 tab(s), Oral, Daily, # 30 tab(s), Refills(s) 0, [facility], 161, cm, 10/18/22 14:05:00 EDT, Height/Length Dosing, 105.6, kg, 10/18/22 13:58:00 EDT, Weight Dosing 5. BMI 40.0-44.9, adult (Z68.41: Body mass index [BMI] 40.0-44.9, adult) BMI education complete Ordered: phentermine, 37.5 mg = 1 tab(s), Oral, Daily, # 30 tab(s), Refills(s) 0, Pharmacy: [facility] 1628, 161, cm, 10/18/22 14:05:00 EDT, Height/Length Dosing, 105.6, kg, 10/18/22 13:58:00 EDT, Weight Dosing CBC w/ Auto Diff Comprehensive Metabolic Panel Free T4 Lab Specimen Collect 56908 Lipid Panel T3 Free Thyroid Stimulating Hormone 6. Non-smoker (Z78.9: Other specified health status) continue not smoking Ordered: phentermine, 37.5 mg = 1 tab(s), Oral, Daily, # 30 tab(s), Refills(s) 0, Pharmacy: [facility] 1628, 161, cm, 10/18/22 14:05:00 EDT, Height/Length Dosing, 105.6, kg, 10/18/22 13:58:00 EDT, Weight Dosing CBC w/ Auto Diff Comprehensive Metabolic Panel Free T4 Lab Specimen Collect 52540 Lipid Panel T3 Free Thyroid Stimulating Hormone Orders: albuterol, 2 puff(s), Inhalation, q4hr for wheezing, 18 gram, Refill(s) 0, [facility], 161, cm, 10/18/22 14:05:00 EDT, Height/Length Dosing, 105.6, kg, 10/18/22 13:58:00 EDT, Weight Dosing Follow-up No qualifying data available Problem List/Past Medical History Ongoing Asthma Cyst of thyroid Weight gai (more content not included)... Normal [facility] Comment on above: Result Comment: Elec tronically Signed By: Cleo Hassan\.br\Date and Time Signed: 10/18/22 14:32 EDT Free T4on 10-18-2022 Free T4 [Mass/Vol] 0.59 ng/dL Normal 0.58-1.64 [facility] Comment on above: Performed By: #### 2 246799, 8199499, 3065643, 6516952, 5746269, 21871617, 0182714, 2254518 ####[facility] [address] [place] [address] HEMATOLOGYOrdered By: SYSTEM SYSTEM on 10-18-2022 Basophils/100 WBC (Bld) 1.1 % Normal 0.0 - 2.0 % [facility] Basophils/Leukocytes Auto (Bld) [Pure # fraction] 0.1 E9/L Normal 0.0 - 0.2 E9/L [facility] Eosinophils/100 WBC (Bld) 3.4 % Normal 0.0 - 8.0 % [facility] Eosinophils/Leukocytes Auto (Bld) [Pure # fraction] 0.3 E9/L Normal 0.0 - 0.5 E9/L [facility] Lymphocytes/100 WBC (Bld) 37.3 % Normal 14.0 - 50.0 % [facility] Lymphocytes/Leukocytes Auto (Bld) [Pure # fraction] 3.0 E9/L Normal 1.0 - 4.0 E9/L [facility] Monocytes/100 WBC (Bld) 4.6 % Normal 4.0 - 14.0 % [facility] Monocytes/Leukocytes Auto (Bld) [Pure # fraction] 0.4 E9/L Normal 0.2 - 1.0 E9/L [facility] Neutrophils/100 WBC (Bld) 53.6 % Normal 36.0 - 75.0 % [facility] Neutrophils/Leukocytes Auto (Bld) [Pure # fraction] 4.3 E9/L Normal 2.0 - 7.5 E9/L [facility] HEMATOLOGYOrdered By: Madie Dong on 10-18-2022 Erythrocyte distribution width (RBC) [Ratio] 18.0 % High 10.9 - 14.2 % [facility] Hematocrit (Bld) [Volume fraction] 37.2 % Normal 34.0 - 46.0 % [facility] Hemoglobin (Bld) [Mass/Vol] 12.0 g/dL Normal 12.0 - 16.0 gm/dL [facility] MCH (RBC) [Entitic mass] 26.2 pg Low 27. 0 - 34.0 pg [facility] MCHC (RBC) [Mass/Vol] 32.3 g/dL Normal 31.4 - 36.0 gm/dL [facility] [place] [facility] MCV (RBC) [Entitic vol] 81.2 fL Normal 80.0 - 100.0 fL [facility] [place] [facility] Platelet mean volume (Bld) [Entitic vol] 7.8 fL Normal 6.4 - 10.8 fL [facility] [place] [facility] Platelets (Bld) [#/Vol] 312.0 E9/L Normal 150. 0 - 500.0 E9/L [facility] [place] [facility] RBC (Bld) [#/Vol] 4.6 E12/L Normal 4.3 - 5.9 E12/L [facility] [place] [facility] WBC corrected for nucl RBC Auto (Bld) [#/Vol] 8.0 E9/L Normal 4.0 - 11.0 E9/L [facility] [place] [facility] Lipid Panelon 10-18-2022 Cholesterol [Mass/Vol] 240 mg/dL High 120-200 [facility] Comment on above: Performed By: #### 2 999331, 1403375, 9711153, 4777762, 4169332, 66940919, 1482349, 5808483 ####[facility] [address] [place] [address] Cholesterol in HDL [Mass/Vol] 44 mg/dL Invalid Interpretation Code [facility] Comment on above: Result Comment: HDL > or equal to 60 mg/dL: Low cardiovascular risk HDL < 40 mg/dL : High cardiovascular risk Performed By: #### 2 620278, 4493264, 9267472, 9182985, 5096751, 71511825, 4927552, 6932617 ####[facility] [address] [place] [address] Cholesterol in LDL [Mass/Vol] 164 mg/dL High <=129 [facility] Comment on above: Performed By: #### 2 461982, 5268116, 5419005, 4165929, 4650613, 45705119, 9819255, 7748455 ####[facility] [address] [place] [address] Cholesterol in VLDL [Mass/Vol] 45 mg/dL High 7-40 [facility] Comment on above: Performed By: #### 2 347685, 1399147, 1878021, 1456286, 5033107, 22182797, 1730966, 2016850 ####[facility] [address] [place] [address] Triglyceride [Mass/Vol] 227 mg/dL High <=149 [facility] Comment on above: Performed By: #### 2 669682, 4358068, 2261197, 0484746, 4133091, 64792797, 5434236, 4297043 ####[facility] [address] [place] [address] TSHon 10-18-2022 TSH Qn 1.59 m[IU]/L Normal 0.34-5.60 [facility] Comment on above: Performed By: #### 2 628481, 2678459, 1356153, 5649949, 5203730, 52956284, 8656586, 0324316 ####[facility] [address] [place] [address] eGFRon 10-18-2022 GFR/1.73 sq M.predicted among non-blacks MDRD (S/P/Bld) [Vol rate/Area] 66 mL/min/1.73 m2 Normal >=59 [facility] Comment on above: Order Comment: Order added by Discern Expert. Result Comment: Tennis Coach yasemin kidney disease could be indicated at eGFR's of less than 60 mL/min/1.73m2. Kidney failure is indicated at less than 15 mL/min/1.73m2. Performed By: #### 2 272162, 3444649, 8046927, 1699570, 9659920, 20693659, 9505099, 0336035 ####[facility] [address] [place] [address] XR KNEE RT 4V or >on 023 XR KNEE RT 4V or > EXAM: XR KNEE RT 4V or > HISTORY: Right knee Pain COMPARISON: None. TECHNIQUE: AP, lateral and sunrise views of the right knee are obtained. FINDINGS: There is no focal soft tissue swelling or sizable knee joint effusion. Osseous mineralization is within normal limits. There is no acute fracture or dislocation. Joint spaces are normally maintained. IMPRESSION: No acute fracture or dislocation. Electronically authenticated by: WENDY ROMAN Date: 2022-06-28 05:24 Normal [facility] COVID CepheidOrdered By: PRO VIDER TEMP on 02-08-2022 SARS-CoV-2 (COVID-19) Ab IA Ql Negative Negative [facility] Comment on above: This is a duplicate [employer]epheid Xpert Xpress CoV-2/Flu/RSV Plus RNA by RT-PCR result to be used for statistical tracking purpose only. COVID CepheidOrdered By: Latrice Terry on 02-08-2022 SARS-CoV-2 (COVID-19) RNA GERALD+probe Ql (Unsp spec) [facility] Basophils Auto (Bld) [#/Vol] Ordered By: Nan Brand on 12-28-2021 Basophils (Bld) [#/Vol] 0.0 10*3/uL 0.0-0.2 [facility] Basophils/100 WBC Auto (Bld) Ordered By: Nan Brand on 12-28-2021 Basophils/100 WBC (Bld) 0.4 % . [facility] Creatinine and Glomerular fi ltration rate.predicted panel (S/P/Bld)Ordered By: Nan Brand on 12-28-2021 Creatinine [Mass/Vol] 0.94 mg/dL 0.44-1.03 [facility] Eosinophils Auto (Bld) [#/Vo l]Ordered By: Nan Brand on 12-28-2021 Eosinophils (Bld) [#/Vol] 0.0 10*3/uL 0.0-0.45 [facility] Eosinophils/100 WBC Auto (Bl d)Ordered By: Nan Brand on 12-28-2021 Eosinophils/100 WBC (Bld) 0.0 % . [facility] Erythrocyte distribution wid th Auto (RBC) [Ratio]Ordered By: Nan Brand on 12-28-2021 Erythrocyte distribution width (RBC) [Ratio] 17.6 % 11.9-15.3 [facility] Estimated glomerular filtrat ion rate (GFR) non- AmericanOrdered By: Nan Brand on 12-28-2021 GFR/1.73 sq M.predicted among non-blacks MDRD (S/P/Bld) [Vol rate/Area] > 60 mL/Min [facility] Hematocrit Auto (Bld) [Volum e fraction]Ordered By: Nan Brand on 12-28-2021 Hematocrit (Bld) [Volume fraction] 39.3 % 34.0-46.4 [facility] Hemoglobin [Mass/volume] in BloodOrdered By: Nan Brand on 12-28-2021 Hemoglobin (Bld) [Mass/Vol] 12.6 g/dL 11.8-15.4 [facility] - Hematology and Cell countsOrdered By: Nan Brand on 12-28-2021 Nucleated RBC/100 WBC (Bld) [Ratio] 0.0 % 0-0.5 [facility] Leukocytes [#/volume] in Blo od by Automated countOrdered By: Nan Brand on 12-28-2021 WBC (Bld) [#/Vol] 11.2 10*3/uL 4.5-11.0 [facility] Lymphocytes Auto (Bld) [#/Vo l]Ordered By: Nan Brand on 12-28-2021 Lymphocytes (Bld) [#/Vol] 1.0 10*3/uL 1.00-4.8 [facility] Lymphocytes/100 WBC Auto (Bl d)Ordered By: Nan Brand on 12-28-2021 Lymphocytes/100 WBC (Bld) 8.7 % . [facility] MCH Auto (RBC) [Entitic mass ]Ordered By: Nan Brand on 12-28-2021 MCH (RBC) [Entitic mass] 26.5 pg 24.7-34.3 [facility] MCHC Auto (RBC) [Mass/Vol]Or dered By: Nan Brand on 12-28-2021 MCHC (RBC) [Mass/Vol] 32.1 g/dL 32.0-35.0 [facility] MCV Auto (RBC) [Entitic vol] Ordered By: Nan Brand on 12-28-2021 MCV (RBC) [Entitic vol] 82.6 fL 80-100 [facility] Monocytes Auto (Bld) [#/Vol] Ordered By: Nan Brand on 12-28-2021 Monocytes (Bld) [#/Vol] 0.1 10*3/uL 0.0-0.8 [facility] Monocytes/100 WBC Auto (Bld) Ordered By: Nan Brand on 12-28-2021 Monocytes/100 WBC (Bld) 1.3 % . [facility] Neutrophils Auto (Bld) [#/Vo l]Ordered By: Nan Brand on 12-28-2021 Neutrophils (Bld) [#/Vol] 10.0 10*3/uL 1.8-7.7 [facility] Neutrophils/100 WBC Auto (Bl d)Ordered By: Nan Brand on 12-28-2021 Neutrophils/100 WBC (Bld) 89.6 % . [facility] No Panel InformationOrdered By: Nan Brand on 12-28-2021 Estimated GFR () > 60 mL/Min [facility] Comment on above: GFR estimated refere nce range: According to KDOQI guidelines, <60 ml/min/1.73m2 is sufficient to diagnose a patient with chronic kidney disease. Pharmacy Creatinine Clearance (Chem 96.17 [facility] Platelet mean volume Auto (B ld) [Entitic vol]Ordered By: Nan Brand on 12-28-2021 Platelet mean volume (Bld) [Entitic vol] 7.8 fL 6.3-10.7 [facility] Platelets Auto (Bld) [#/Vol] Ordered By: Nan Brand on 12-28-2021 Platelets (Bld) [#/Vol] 315 10*3/uL 150-450 [facility] RBC Auto (Bld) [#/Vol]Ordere d By: Nan Brand on 12-28-2021 RBC (Bld) [#/Vol] 4.76 10*6/uL 3.60-5.00 [facility] Serum or plasma anion gap de terminationOrdered By: Nan Brand on 12-28-2021 Anion gap [Moles/Vol] 13.8 mmol/L 6.0-15.0 [facility] Serum or plasma calcium evelia urement (mass/volume)Ordered By: Nan Brand on 12-28-2021 Calcium [Mass/Vol] 9.4 mg/dL 8.2-10.2 [facility] Serum or plasma chloride kenya surement (moles/volume)Ordered By: Nan Brand on 12-28-2021 Chloride [Moles/Vol] 106 mmol/L 95-114 [facility] Serum or plasma glucose evelia urement (mass/volume)Ordered By: Nan Brand on 12-28-2021 Glucose [Mass/Vol] 162 mg/dL 70-100 [facility] Comment on above: ADA recommended refe rence rangeRandom Glucose Reference Range is dependent on time and content of last meal. Glucose of more than 200 mg/dL in a nonstressed, ambulatory subject supports the diagnosis of Diabetes Mellitus. Serum or plasma potassium me asurement (moles/volume)Ordered By: Nan Brand on 12-28-2021 Potassium [Moles/Vol] 4.3 mmol/L 3.5-5.1 [facility] Serum or plasma sodium measu rement (moles/volume)Ordered By: Nan Brand on 12-28-2021 Sodium [Moles/Vol] 137 mmol/L 136-146 [facility] Serum or plasma total carbon dioxide measurement (moles/volume)Ordered By: Nan Brand on 12-28-2021 CO2 [Moles/Vol] 21.5 mmol/L 22.0-30.0 [facility] Serum or plasma urea nitroge n measurement (mass/volume)Ordered By: Nan Brand on 12-28-2021 Urea nitrogen [Mass/Vol] 9 mg/dL 9-23 [facility] Albumin [Mass/volume] in Ser um or PlasmaOrdered By: Mark Britt on 12-27-2021 Albumin [Mass/Vol] 3.9 g/dL 3.2-5.5 [facility] Basophils Auto (Bld) [#/Vol] Ordered By: Mark Britt on 12-27-2021 Basophils (Bld) [#/Vol] 0.1 10*3/uL 0.0-0.2 [facility] Basophils/100 WBC Auto (Bld) Ordered By: Mark Britt on 12-27-2021 Basophils/100 WBC (Bld) 0.8 % . [facility] COVID CepheidOrdered By: Ramiro Britt on 12-27-2021 SARS-CoV-2 (COVID-19) Ab IA Ql Negative Negative [facility] Comment on above: This is a duplicate [employer] Xpert Xpress CoV-2/Flu/RSV Plus RNA by RT-PCR result to be used for statistical tracking purpose only. SARS-CoV-2 (COVID-19) RNA GERALD+probe Ql (Unsp spec) [facility] Creatinine and Glomerular fi ltration rate.predicted panel (S/P/Bld)Ordered By: Makr Britt on 12-27-2021 Creatinine [Mass/Vol] 1.03 mg/dL 0.44-1.03 [facility] Direct bilirubin measurement Ordered By: Mark Britt on 12-27-2021 Bilirubin.direct [Mass/Vol] mg/dL 0.0-0.4 [facility] Eosinophils Auto (Bld) [#/Vo l]Ordered By: Mark Britt on 12-27-2021 Eosinophils (Bld) [#/Vol] 0.2 10*3/uL 0.0-0.45 [facility] Eosinophils/100 WBC Auto (Bl d)Ordered By: Mark Britt on 12-27-2021 Eosinophils/100 WBC (Bld) 1.9 % . [facility] Erythrocyte distribution wid th Auto (RBC) [Ratio]Ordered By: Mark Britt on 12-27-2021 Erythrocyte distribution width (RBC) [Ratio] 17.5 % 11.9-15.3 [facility] Estimated glomerular filtrat ion rate (GFR) non- AmericanOrdered By: Mark Britt on 12-27-2021 GFR/1.73 sq M.predicted among non-blacks MDRD (S/P/Bld) [Vol rate/Area] 60 mL/Min [facility] Globulin Calc (S) [Mass/Vol] Ordered By: Mark Britt on 12-27-2021 Globulin (S) [Mass/Vol] 2.9 g/dL [facility] Hematocrit Auto (Bld) [Volum e fraction]Ordered By: Mark Britt on 12-27-2021 Hematocrit (Bld) [Volume fraction] 43.3 % 34.0-46.4 [facility] Hemoglobin [Mass/volume] in BloodOrdered By: Mark Britt on 12-27-2021 Hemoglobin (Bld) [Mass/Vol] 13.7 g/dL 11.8-15.4 [facility] - Chemistry and C hemistry - challengeOrdered By: Mark Britt on 12-27-2021 AST [Catalytic activity/Vol] 20 U/L 10-42 [facility] - Hematology and Cell countsOrdered By: Mark Britt on 12-27-2021 Nucleated RBC/100 WBC (Bld) [Ratio] 0.1 % 0-0.5 [facility] Leukocytes [#/volume] in Blo od by Automated countOrdered By: Mark Britt on 12-27-2021 WBC (Bld) [#/Vol] 12.6 10*3/uL 4.5-11.0 [facility] Lymphocytes Auto (Bld) [#/Vo l]Ordered By: Mark Britt on 12-27-2021 Lymphocytes (Bld) [#/Vol] 3.0 10*3/uL 1.00-4.8 [facility] Lymphocytes/100 WBC Auto (Bl d)Ordered By: Mark Britt on 12-27-2021 Lymphocytes/100 WBC (Bld) 23.6 % . [facility] MCH Auto (RBC) [Entitic mass ]Ordered By: Mark Britt on 12-27-2021 MCH (RBC) [Entitic mass] 26.5 pg 24.7-34.3 [facility] MCHC Auto (RBC) [Mass/Vol]Or dered By: Mark Britt on 12-27-2021 MCHC (RBC) [Mass/Vol] 31.7 g/dL 32.0-35.0 [facility] MCV Auto (RBC) [Entitic vol] Ordered By: Mark Britt on 12-27-2021 MCV (RBC) [Entitic vol] 83.7 fL 80-100 [facility] Monocytes Auto (Bld) [#/Vol] Ordered By: Mark Britt on 12-27-2021 Monocytes (Bld) [#/Vol] 0.7 10*3/uL 0.0-0.8 [facility] Monocytes/100 WBC Auto (Bld) Ordered By: Mark Britt on 12-27-2021 Monocytes/100 WBC (Bld) 5.7 % . [facility] Neutrophils Auto (Bld) [#/Vo l]Ordered By: Mark Britt on 12-27-2021 Neutrophils (Bld) [#/Vol] 8.6 10*3/uL 1.8-7.7 [facility] Neutrophils/100 WBC Auto (Bl d)Ordered By: Mark Britt on 12-27-2021 Neutrophils/100 WBC (Bld) 68.0 % . [facility] No Panel InformationOrdered By: Mark Britt on 12-27-2021 Estimated GFR () > 60 mL/Min [facility] Comment on above: GFR estimated refere nce range: According to KDOQI guidelines, <60 ml/min/1.73m2 is sufficient to diagnose a patient with chronic kidney disease. Pharmacy Creatinine Clearance (Chem 88.19 [facility] Platelet mean volume Auto (B ld) [Entitic vol]Ordered By: Mark Britt on 12-27-2021 Platelet mean volume (Bld) [Entitic vol] 7.7 fL 6.3-10.7 [facility] Platelets Auto (Bld) [#/Vol] Ordered By: Mark Britt on 12-27-2021 Platelets (Bld) [#/Vol] 324 10*3/uL 150-450 [facility] Protein [Mass/volume] in Ser um or PlasmaOrdered By: Mark Britt on 12-27-2021 Protein [Mass/Vol] 6.8 g/dL 6.1-7.9 [facility] RBC Auto (Bld) [#/Vol]Ordere d By: Mark Britt on 12-27-2021 RBC (Bld) [#/Vol] 5.18 10*6/uL 3.60-5.00 [facility] Serum or plasma alanine reyes otransferase measurement without P-5'-P (enzymatic activiOrdered By: Mark Britt on 12-27-2021 ALT No additional P-5'-P [Catalytic activity/Vol] 16 U/L 10-60 [facility] Serum or plasma albumin/glob ulin mass ratioOrdered By: Mark Britt on 12-27-2021 Albumin/Globulin [Mass ratio] 1.3 {ratio} [facility] Serum or plasma alkaline bossman sphatase measurement (enzymatic activity/volume)Ordered By: Mark Britt on 12-27-2021 ALP [Catalytic activity/Vol] 109 U/L 32-92 [facility] Serum or plasma anion gap de terminationOrdered By: Mark Britt on 12-27-2021 Anion gap [Moles/Vol] See comment 6.0-15.0 [facility] Comment on above: Specimen hemolyzed, redraw requestedPLEASE CALCULATE WITH REDRAW POTASSIUM IF NEEDED Serum or plasma calcium evelia urement (mass/volume)Ordered By: Mark Britt on 12-27-2021 Calcium [Mass/Vol] 9.0 mg/dL 8.2-10.2 [facility] Serum or plasma chloride kenya surement (moles/volume)Ordered By: Mark Britt on 12-27-2021 Chloride [Moles/Vol] 103 mmol/L 95-114 [facility] Serum or plasma glucose evelia urement (mass/volume)Ordered By: Mark Britt on 12-27-2021 Glucose [Mass/Vol] 104 mg/dL 70-100 [facility] Comment on above: ADA recommended refe rence rangeRandom Glucose Reference Range is dependent on time and content of last meal. Glucose of more than 200 mg/dL in a nonstressed, ambulatory subject supports the diagnosis of Diabetes Mellitus. Serum or plasma non-glucuron idated bilirubin measurement (mass/volume)Ordered By: Mark Britt on 12-27-2021 Bilirubin.indirect [Mass/Vol] TNP [facility] Comment on above: Test not performed Serum or plasma potassium me asurement (moles/volume)Ordered By: Mark Britt on 12-27-2021 Potassium [Moles/Vol] 3.7 mmol/L 3.5-5.1 [facility] Serum or plasma sodium measu rement (moles/volume)Ordered By: Mark Britt on 12-27-2021 Sodium [Moles/Vol] 136 mmol/L 136-146 [facility] Serum or plasma total biliru bin measurement (mass/volume)Ordered By: Mark Britt on 12-27-2021 Bilirubin [Mass/Vol] 0.6 mg/dL 0.3-1.2 [facility] Serum or plasma total carbon dioxide measurement (moles/volume)Ordered By: Mark Britt on 12-27-2021 CO2 [Moles/Vol] 18.8 mmol/L 22.0-30.0 [facility] Serum or plasma urea nitroge n measurement (mass/volume)Ordered By: Mark Britt on 12-27-2021 Urea nitrogen [Mass/Vol] 8 mg/dL 9 [facility] Troponin I.cardiac [Mass/vol ume] in Serum or Plasma by High sensitivity methodOrdered By: Mark Britt on 12-27-2021 Troponin I.cardiac High sensitivity method [Mass/Vol] 3 pg/mL 0-15 [facility] Blood hemoglobin measurement (mass/volume)Ordered By: Jp Barba on 11-19-2021 Hemoglobin (Bld) [Mass/Vol] 12.7 g/dL 11.8-15.4 [facility] Creatinine and Glomerular fi ltration rate.predicted panel (S/P/Bld)Ordered By: Jp Barba on 11-19-2021 Creatinine [Mass/Vol] 0.98 mg/dL 0.44-1.03 [facility] Erythrocyte distribution wid th Auto (RBC) [Ratio]Ordered By: Jp Barba on 11-19-2021 Erythrocyte distribution width (RBC) [Ratio] 18.0 % 11.9-15.3 [facility] Estimated glomerular filtrat ion rate (GFR) non- AmericanOrdered By: Jp Barba on 11-19-2021 GFR/1.73 sq M.predicted among non-blacks MDRD (S/P/Bld) [Vol rate/Area] > 60 mL/Min [facility] Hematocrit Auto (Bld) [Volum e fraction]Ordered By: Jp Barba on 11-19-2021 Hematocrit (Bld) [Volume fraction] 39.9 % 34.0-46.4 [facility] - Chemistry and C hemistry - challengeOrdered By: Jp Barba on 11-19-2021 Magnesium [Mass/Vol] 1.8 mg/dL 1.6-2.6 [facility] MCH Auto (RBC) [Entitic mass ]Ordered By: Jp Barba on 11-19-2021 MCH (RBC) [Entitic mass] 26.1 pg 24.7-34.3 [facility] MCHC Auto (RBC) [Mass/Vol]Or dered By: Jp Barba on 11-19-2021 MCHC (RBC) [Mass/Vol] 31.8 g/dL 32.0-35.0 [facility] MCV Auto (RBC) [Entitic vol] Ordered By: Jp Barba on 11-19-2021 MCV (RBC) [Entitic vol] 82.2 fL 80-100 [facility] No Panel InformationOrdered By: Jp Barba on 11-19-2021 Estimated GFR () > 60 mL/Min [facility] Comment on above: GFR estimated refere nce range: According to KDOQI guidelines, <60 ml/min/1.73m2 is sufficient to diagnose a patient with chronic kidney disease. Pharmacy Creatinine Clearance (Chem 93.33 [facility] Platelet mean volume Auto (B ld) [Entitic vol]Ordered By: Jp Barba on 11-19-2021 Platelet mean volume (Bld) [Entitic vol] 8.1 fL 6.3-10.7 [facility] Platelets Auto (Bld) [#/Vol] Ordered By: Jp Barba on 11-19-2021 Platelets (Bld) [#/Vol] 334 10*3/uL 150-450 [facility] RBC Auto (Bld) [#/Vol]Ordere d By: Jp Barba on 11-19-2021 RBC (Bld) [#/Vol] 4.86 10*6/uL 3.60-5.00 [facility] Serum or plasma anion gap de terminationOrdered By: Jp Barba on 11-19-2021 Anion gap [Moles/Vol] 15.5 mmol/L 6.0-15.0 [facility] Serum or plasma calcium evelia urement (mass/volume)Ordered By: Jp Barba on 11-19-2021 Calcium [Mass/Vol] 9.5 mg/dL 8.2-10.2 [facility] Serum or plasma chloride kenya surement (moles/volume)Ordered By: Jp Barba on 11-19-2021 Chloride [Moles/Vol] 103 mmol/L 95-114 [facility] Serum or plasma glucose evelia urement (mass/volume)Ordered By: Jp Barba on 11-19-2021 Glucose [Mass/Vol] 149 mg/dL 70-100 [facility] Comment on above: ADA recommended refe rence rangeRandom Glucose Reference Range is dependent on time and content of last meal. Glucose of more than 200 mg/dL in a nonstressed, ambulatory subject supports the diagnosis of Diabetes Mellitus. Serum or plasma potassium me asurement (moles/volume)Ordered By: Jp Barba on 11-19-2021 Potassium [Moles/Vol] 4.5 mmol/L 3.5-5.1 [facility] Serum or plasma sodium measu rement (moles/volume)Ordered By: Jp Barba on 11-19-2021 Sodium [Moles/Vol] 136 mmol/L 136-146 [facility] Serum or plasma total carbon dioxide measurement (moles/volume)Ordered By: Jp Barba on 11-19-2021 CO2 [Moles/Vol] 22.0 mmol/L 22.0-30.0 [facility] Serum or plasma urea nitroge n measurement (mass/volume)Ordered By: Jp Barba on 11-19-2021 Urea nitrogen [Mass/Vol] 13 mg/dL 9-23 [facility] WBC Auto (Bld) [#/Vol]Ordere d By: Jp Barba on 11-19-2021 WBC (Bld) [#/Vol] 17.0 10*3/uL 3.8-11.6 [facility] Basophils Auto (Bld) [#/Vol] Ordered By: Jason Milton on 11-18-2021 Basophils (Bld) [#/Vol] 0.1 10*3/uL 0.0-0.2 [facility] Basophils/100 WBC Auto (Bld) Ordered By: Jason Milton on 11-18-2021 Basophils/100 WBC (Bld) 0.8 % . [facility] Blood hemoglobin measurement (mass/volume)Ordered By: Jason Milton on 11-18-2021 Hemoglobin (Bld) [Mass/Vol] 11.8 g/dL 11.8-15.4 [facility] Blood leukocytes automated c ount (number/volume)Ordered By: Jason Milton on 11-18-2021 WBC (Bld) [#/Vol] 12.0 10*3/uL 4.5-11.0 [facility] Body fluid albumin measureme nt (mass/volume)Ordered By: Jason Milton on 11-18-2021 Albumin (Body fld) [Mass/Vol] 3.8 g/dL 3.2-5.5 [facility] COVID CepheidOrdered By: Donald Milton on 11-18-2021 SARS-CoV-2 (COVID-19) Ab IA Ql Negative Negative [facility] Comment on above: This is a duplicate [employer] Xpert Xpress CoV-2/Flu/RSV Plus RNA by RT-PCR result to be used for statistical tracking purpose only. SARS-CoV-2 (COVID-19) RNA GERALD+probe Ql (Unsp spec) [facility] Creatine kinase [Enzymatic a ctivity/volume] in Serum or PlasmaOrdered By: Jason Milton on 11-18-2021 CK [Catalytic activity/Vol] 78 U/L 22-269 [facility] Creatinine and Glomerular fi ltration rate.predicted panel (S/P/Bld)Ordered By: Jason Milton on 11-18-2021 Creatinine [Mass/Vol] 0.98 mg/dL 0.44-1.03 [facility] Eosinophils Auto (Bld) [#/Vo l]Ordered By: Jason Milton on 11-18-2021 Eosinophils (Bld) [#/Vol] 0.4 10*3/uL 0.0-0.45 [facility] Eosinophils/100 WBC Auto (Bl d)Ordered By: Jason Milton on 11-18-2021 Eosinophils/100 WBC (Bld) 3.1 % . [facility] Erythrocyte distribution wid th Auto (RBC) [Ratio]Ordered By: Jason Milton on 11-18-2021 Erythrocyte distribution width (RBC) [Ratio] 17.5 % 11.9-15.3 [facility] Estimated glomerular filtrat ion rate (GFR) non- AmericanOrdered By: Jason Milton on 11-18-2021 GFR/1.73 sq M.predicted among non-blacks MDRD (S/P/Bld) [Vol rate/Area] > 60 mL/Min [facility] Globulin Calc (S) [Mass/Vol] Ordered By: Jason Milton on 11-18-2021 Globulin (S) [Mass/Vol] 2.9 g/dL [facility] Hematocrit Auto (Bld) [Volum e fraction]Ordered By: Jason Milton on 11-18-2021 Hematocrit (Bld) [Volume fraction] 37.2 % 34.0-46.4 [facility] - Chemistry and C hemistry - challengeOrdered By: Jason Milton on 11-18-2021 Natriuretic peptide B (Bld) [Mass/Vol] 17.0 pg/mL 5-100 [facility] - Hematology and Cell countsOrdered By: Jason Milton on 11-18-2021 Nucleated RBC/100 WBC (Bld) [Ratio] 0.1 % 0-0.5 [facility] Lymphocytes Auto (Bld) [#/Vo l]Ordered By: Jason Milton on 11-18-2021 Lymphocytes (Bld) [#/Vol] 2.0 10*3/uL 1.00-4.8 [facility] Lymphocytes/100 WBC Auto (Bl d)Ordered By: Jason Milton on 11-18-2021 Lymphocytes/100 WBC (Bld) 16.7 % . [facility] MCH Auto (RBC) [Entitic mass ]Ordered By: Jason Milton on 11-18-2021 MCH (RBC) [Entitic mass] 25.9 pg 24.7-34.3 [facility] MCHC Auto (RBC) [Mass/Vol]Or dered By: Jason Milton on 11-18-2021 MCHC (RBC) [Mass/Vol] 31.8 g/dL 32.0-35.0 [facility] MCV Auto (RBC) [Entitic vol] Ordered By: Jason Milton on 11-18-2021 MCV (RBC) [Entitic vol] 81.4 fL 80-100 [facility] Monocytes Auto (Bld) [#/Vol] Ordered By: Jason Milton on 11-18-2021 Monocytes (Bld) [#/Vol] 0.7 10*3/uL 0.0-0.8 [facility] Monocytes/100 WBC Auto (Bld) Ordered By: Jason Milton on 11-18-2021 Monocytes/100 WBC (Bld) 5.6 % . [facility] Neutrophils Auto (Bld) [#/Vo l]Ordered By: Jason Milton on 11-18-2021 Neutrophils (Bld) [#/Vol] 8.9 10*3/uL 1.8-7.7 [facility] Neutrophils/100 WBC Auto (Bl d)Ordered By: Jason Milton on 11-18-2021 Neutrophils/100 WBC (Bld) 73.8 % . [facility] No Panel InformationOrdered By: Jason Milton on 11-18-2021 Estimated GFR () > 60 mL/Min [facility] Comment on above: GFR estimated refere nce range: According to KDOQI guidelines, <60 ml/min/1.73m2 is sufficient to diagnose a patient with chronic kidney disease. Pharmacy Creatinine Clearance (Chem 94.32 [facility] Platelet mean volume Auto (B ld) [Entitic vol]Ordered By: Jason Milton on 11-18-2021 Platelet mean volume (Bld) [Entitic vol] 7.9 fL 6.3-10.7 [facility] Platelets Auto (Bld) [#/Vol] Ordered By: Jason Milton on 09-28-2022 Platelets (Bld) [#/Vol] 326 10*3/uL 150-450 [facility] Protein [Mass/volume] in Ser um or PlasmaOrdered By: Jason Milton on 11-18-2021 Protein [Mass/Vol] 6.7 g/dL 6.1-7.9 [facility] RBC Auto (Bld) [#/Vol]Ordere d By: Jason Milton on 11-18-2021 RBC (Bld) [#/Vol] 4.57 10*6/uL 3.60-5.00 [facility] Serum or plasma alanine reyes otransferase measurement without P-5'-P (enzymatic activiOrdered By: Jason Milton on 11-18-2021 ALT No additional P-5'-P [Catalytic activity/Vol] 15 U/L 10-60 [facility] Serum or plasma albumin/glob ulin mass ratioOrdered By: Jason Milton on 11-18-2021 Albumin/Globulin [Mass ratio] 1.3 {ratio} [facility] Serum or plasma alkaline bossman sphatase measurement (enzymatic activity/volume)Ordered By: Jason Milton on 11-18-2021 ALP [Catalytic activity/Vol] 99 U/L 32-92 [facility] Serum or plasma anion gap de terminationOrdered By: Jason Milton on 11-18-2021 Anion gap [Moles/Vol] 17.9 mmol/L 6.0-15.0 [facility] Serum or plasma aspartate am inotransferase measurement (enzymatic activity/volume)Ordered By: Jason Milton on 11-18-2021 AST [Catalytic activity/Vol] 22 U/L 10-42 [facility] Serum or plasma calcium evelia urement (mass/volume)Ordered By: Jason Milton on 11-18-2021 Calcium [Mass/Vol] 8.9 mg/dL 8.2-10.2 [facility] Serum or plasma chloride kenya surement (moles/volume)Ordered By: Jason Milton on 11-18-2021 Chloride [Moles/Vol] 99 mmol/L 95-114 [facility] Serum or plasma creatine kin ase MB (CKMB)/total creatine kinase (CK) ratio by calculaOrdered By: Jason Milton on 11-18-2021 CK.MB Calc [Catalytic fraction] 1.2 % 0.00-2.50 [facility] Serum or plasma creatine kin ase MB measurement (mass/volume)Ordered By: Jason Milton on 11-18-2021 CK.MB [Mass/Vol] 1.0 ng/mL 0.6-6.3 [facility] Serum or plasma glucose evelia urement (mass/volume)Ordered By: Jason Milton on 11-18-2021 Glucose [Mass/Vol] 104 mg/dL 70-100 [facility] Comment on above: ADA recommended refe rence rangeRandom Glucose Reference Range is dependent on time and content of last meal. Glucose of more than 200 mg/dL in a nonstressed, ambulatory subject supports the diagnosis of Diabetes Mellitus. Serum or plasma potassium me asurement (moles/volume)Ordered By: Jason Milton on 11-18-2021 Potassium [Moles/Vol] 4.6 mmol/L 3.5-5.1 [facility] Serum or plasma sodium measu rement (moles/volume)Ordered By: Jason Milton on 11-18-2021 Sodium [Moles/Vol] 134 mmol/L 136-146 [facility] Serum or plasma total biliru bin measurement (mass/volume)Ordered By: Jason Milton on 11-18-2021 Bilirubin [Mass/Vol] 1.0 mg/dL 0.3-1.2 [facility] Serum or plasma total carbon dioxide measurement (moles/volume)Ordered By: Jason Milton on 11-18-2021 CO2 [Moles/Vol] 21.7 mmol/L 22.0-30.0 [facility] Serum or plasma urea nitroge n measurement (mass/volume)Ordered By: Jason Milton on 11-18-2021 Urea nitrogen [Mass/Vol] 10 mg/dL 9- [facility] Troponin I.cardiac [Mass/vol ume] in Serum or Plasma by High sensitivity methodOrdered By: Jason Milton on 11-18-2021 Troponin I.cardiac High sensitivity method [Mass/Vol] 3 pg/mL 0-15 [facility] XR Chest 2 Views*on 11-18-19 XR Chest 2 Views* COMPARISON: FINDINGS: The cardiomediastinal silhouette is unremarkable. The lungs are free of infiltrates effusions or consolidations. The bones and soft tissues are within normal limits. There are surgical clips in the region of the GE junction and upper abdomen. IMPRESSION: There are no infiltrates or effusions Report reported and signed by JANICE JERONIMO on 11/17/2021 1823 Normal [facility] Specialist Q - CULTURE,URINE,ROUTINEon 04-30-2021 CULTURE, URINE, ROUTINE SEE NOTE Normal N orthern [facility] Comment on above: Order Comment: [facility] performed at: [employer], [address] [facility], [address] [place] [address], [id number], Senior Bioinformatics Scientist: Bob Snowden MD [facility] Collection Date/Time: [id number] [facility] Results Received Date/Time: [facility] Reported Date/Time: [id number] Result Comment: CULT URE, URINE, ROUTINE Micro Number: [id number] Test Status: Final Specimen Source: Urine Specimen Quality: Adequate Result: Mixed genital laurence isolated. These superficial bacteria are not indicative of a urinary tract infection. No further organism identification is warranted on this specimen. If clinically indicated, recollect clean-catch, mid-stream urine and transfer immediately to Urine Culture Transport Tube. Performed By: #### [id number] #### [facility] Default [address] [place] [address] Complete Blood Counton 04-23 Erythrocyte distribution width (RBC) [Ratio] 17.6 % High 11.0-15.0 [facility] Comment on above: Performed By: #### L IPD, CBC, TSH reflex FT4, CMP #### [facility] [address] [place], [place] [id number] Hematocrit (Bld) [Volume fraction] 40.9 % Normal 35.0-47.0 [facility] Comment on above: Performed By: #### L IPD, CBC, TSH reflex FT4, CMP #### [facility] [address] [place], [place] [id number] Hemoglobin (Bld) [Mass/Vol] 12.4 g/dL Normal 11.6-15.5 [facility] Comment on above: Performed By: #### L IPD, CBC, TSH reflex FT4, CMP #### [facility] [address] [place], [place] [id number] MCH (RBC) [Entitic mass] 24.8 pg Low 27.0-33.0 [facility] Comment on above: Performed By: #### L IPD, CBC, TSH reflex FT4, CMP #### [facility] [address] [place], [place] [id number] MCHC (RBC) [Mass/Vol] 30.3 g/dL Low 32.0-36.0 [facility] Comment on above: Performed By: #### L IPD, CBC, TSH reflex FT4, CMP #### [facility] [address] [place], [place] [id number] MCV (RBC) [Entitic vol] 82 fL Normal 80-100 N [facility] Comment on above: Performed By: #### L IPD, CBC, TSH reflex FT4, CMP #### [facility] [address] [place], [place] [id number] Platelet mean volume (Bld) [Entitic vol] 10.30 fL Normal 7.50-12.50 [facility] Comment on above: Performed By: #### L IPD, CBC, TSH reflex FT4, CMP #### [facility] [address] [place], [place] [id number] Platelets (Bld) [#/Vol] 284 10*3/uL Normal 140-400 [facility] Comment on above: Performed By: #### L IPD, CBC, TSH reflex FT4, CMP #### [facility] [address] [place], [place] [id number] RBC (Bld) [#/Vol] 4.99 10*6/uL Normal 3.90-5.20 [facility] Comment on above: Performed By: #### L IPD, CBC, TSH reflex FT4, CMP #### [facility] [address] [place], [place] [id number] RDW-SD 51.6 fL High 37.0-50.0 [facility] Comment on above: Performed By: #### L IPD, CBC, TSH reflex FT4, CMP #### [facility] [address] [place], [place] [id number] WBC (Bld) [#/Vol] 11.3 10*3/uL High 3.8-11.0 [facility] Comment on above: Performed By: #### L IPD, CBC, TSH reflex FT4, CMP #### [facility] [address] [place], [place] [id number] Comprehensive Metabolic Pane beto 04-23-2021 Albumin [Mass/Vol] 4.2 g/dL Normal 3.6-5.1 [facility] Comment on above: Performed By: #### L IPD, CBC, TSH reflex FT4, CMP #### [facility] [address] [place], [place] [id number] Albumin/Globulin [Mass ratio] 1.6 {ratio} Normal 1.0-2.5 [facility] Comment on above: Performed By: #### L IPD, CBC, TSH reflex FT4, CMP #### [facility] [address] [place], [place] [id number] ALP [Catalytic activity/Vol] 88 U/L Normal 35-119 [facility] Comment on above: Performed By: #### L IPD, CBC, TSH reflex FT4, CMP #### [facility] [address] [place], [place] [id number] ALT [Catalytic activity/Vol] 18 U/L Normal 6-33 [facility] Comment on above: Result Comment: 01/21 Female reference range changed. Performed By: #### L IPD, CBC, TSH reflex FT4, CMP #### [facility] [address] [place], [place] [id number] Anion gap [Moles/Vol] 20 mmol/L Normal 12-20 [facility] Comment on above: Result Comment: Effe ctive 02/26/2019 reference range changed. Performed By: #### L IPD, CBC, TSH reflex FT4, CMP #### [facility] [address] [place], [place] [id number] AST [Catalytic activity/Vol] 17 U/L Normal 9-34 [facility] Comment on above: Performed By: #### L IPD, CBC, TSH reflex FT4, CMP #### [facility] [address] [place], [place] [id number] BUN/CREA 16 Ratio Normal 6-22 [facility] Comment on above: Performed By: #### L IPD, CBC, TSH reflex FT4, CMP #### [facility] [address] [place], [place] [id number] Calcium [Mass/Vol] 9.7 mg/dL Normal 8.6-10.2 [facility] Specialist Comment on above: Performed By: #### L IPD, CBC, TSH reflex FT4, CMP #### [facility] [address] [place], [place] [id number] Chloride [Moles/Vol] 101 mmol/L Normal 98-107 [facility] Comment on above: Performed By: #### L IPD, CBC, TSH reflex FT4, CMP #### [facility] [address] [place], [place] [id number] CO2 [Moles/Vol] 21 mmol/L Normal 20-31 [facility] Comment on above: Performed By: #### L IPD, CBC, TSH reflex FT4, CMP #### [facility] [address] [place], [place] [id number] Creatinine [Mass/Vol] 1.0 mg/dL Normal 0.6-1.4 [facility] Comment on above: Performed By: #### L IPD, CBC, TSH reflex FT4, CMP #### [facility] [address] [place], [place] [id number] eGFRAA 81 mL/min/1.73m2 Normal >60 [facility] Comment on above: Performed By: #### L IPD, CBC, TSH reflex FT4, CMP #### [facility] [address] [place], [place] [id number] eGFRNAA 67 mL/min/1.73m2 Normal >60 [facility] Comment on above: Performed By: #### L IPD, CBC, TSH reflex FT4, CMP #### [facility] [address] [place], [place] [id number] Globulin (S) [Mass/Vol] 2.6 g/dL Normal 1.9-3.7 [facility] Comment on above: Performed By: #### L IPD, CBC, TSH reflex FT4, CMP #### [facility] [address] [place], [place] [id number] Glucose [Mass/Vol] 106 mg/dL High 65-99 Taisha badillo [place] [employer] Comment on above: Result Comment: For FASTING Glucose --- ADA reference ranges: Normal 65-99 mg/dl Prediabetes 100-125 Diabetes >/= 126 Performed By: #### L IPD, CBC, TSH reflex FT4, CMP #### [facility] [address] [place], [place] [id number] Potassium [Moles/Vol] 4.4 mmol/L Normal 3.5-5.5 [facility] Specialist Comment on above: Performed By: #### L IPD, CBC, TSH reflex FT4, CMP #### [facility] [address] [place], [place] [id number] Protein [Mass/Vol] 6.8 g/dL Normal 6.1-8.1 Taisha badillo [place] [employer] Comment on above: Performed By: #### L IPD, CBC, TSH reflex FT4, CMP #### [facility] [address] [place], [place] [id number] Sodium [Moles/Vol] 138 mmol/L Normal 135-146 Taisha badillo [place] [employer] Comment on above: Performed By: #### L IPD, CBC, TSH reflex FT4, CMP #### [facility] [address] [place], [place] [id number] TBIL <0.3 Normal [facility] Comment on above: Performed By: #### L IPD, CBC, TSH reflex FT4, CMP #### [facility] [address] [place], [place] [id number] Urea nitrogen [Mass/Vol] 15 mg/dL Normal 7-25 [facility] [employer] Comment on above: Performed By: #### L IPD, CBC, TSH reflex FT4, CMP #### [facility] [address] [place], [place] [id number] Lipid Panelon 04-23-2021 Cholesterol [Mass/Vol] 217 mg/dL High 125-200 [facility] Comment on above: Result Comment: Low risk < 200mg/dL Borderline risk 201-239 mg/dl High risk > or equal to 240 Performed By: #### L IPD, CBC, TSH reflex FT4, CMP #### [facility] [address] [place], [place] [id number] Cholesterol in HDL [Mass/Vol] 38 mg/dL Low >40 [facility] Comment on above: Result Comment: High Cardiovascular Risk HDL <40 mg/dL Low Cardiovascular Risk HDL > or equal to 60 mg/dl Performed By: #### L IPD, CBC, TSH reflex FT4, CMP #### [facility] [address] [place], [place] [id number] Cholesterol in LDL [Mass/Vol] 130 mg/dL Normal [facility] Comment on above: Result Comment: LDL ATP III CLASSIFICATION LDL less than 100 mg/dl Optimal LDL 100-129 mg/dl Near or above optimal LDL 130-159 Borderline high LDL 160-189 High LDL greater than 189 mg/dl Very High Performed By: #### L IPD, CBC, TSH reflex FT4, CMP #### [facility] [address] [place], [place] [id number] Cholesterol in VLDL [Mass/Vol] 49 mg/dL Normal [facility] Comment on above: Performed By: #### L IPD, CBC, TSH reflex FT4, CMP #### [facility] [address] [place], [place] [id number] Cholesterol.total/Choles terol in HDL [Mass ratio] 6 {ratio} Normal [facility] Comment on above: Performed By: #### L IPD, CBC, TSH reflex FT4, CMP #### [facility] [address] [place], [place] [id number] Triglyceride [Mass/Vol] 246 mg/dL High 30-150 N [facility] Comment on above: Result Comment: TRIG ATPIII CLASSIFICATIONS TRIG less than 150 mg/dl Normal TRIG 150-199 mg/dl Borderline High TRIG 200-500 mg/dl High TRIG greather than 500 mg/dl Very High Performed By: #### L IPD, CBC, TSH reflex FT4, CMP #### [facility] [address] [place], [place] [id number] TSH w/ Reflex to Free T4on 0 - TSH 3.150 uIU/mL Normal 0.400-4.500 [facility] Comment on above: Performed By: #### L IPD, CBC, TSH reflex FT4, CMP #### [facility] [address] [place], [place] [id number] HCG, ,Urineon 09-28 Beta HCG ( test) Ql (U) Negative Normal NEG [facility] Comment on above: Result Comment: Spec imens with hCG levels near the threshold of the test (25 mIU/mL) may give a negative or indeterminate result. In such cases, another test should be performed with a new specimen in 48-72 hours. If early is suspected clinically in this setting, correlation with quantitative serum b-hCG level is suggested. [facility] has confirmed the use of plasma for this test. This has not been cleared or approved by the U.S. Food and Drug Administration. The FDA has determined that such clearance is not necessary. Performed By: #### B HCG #### [address] [place] [address] #### PROG #### [address] [address] Surgical Pathologyon 019 Surgical Pathology (NOTE) [id number] [facility] CONSULTING PATHOLOGISTS [facility] [address] [place] [id number] SURGICAL PATHOLOGY CONSULTATION Patient Name: MORRO MALONEY [facility] Rec: [id number] Path Number: [id number] Collected: 09/28/2018 Received: 09/29/2018 Reported: 10/02/2018 10:04 -- Diagnosis -- GALLBLADDER: CHOLELITHIASIS, CHRONIC CHOLECYSTITIS AND CHOLESTEROLOSIS. Franko Borden Electronically Signed Out ajb/10/02/2018 Clinical Information Pre-op Diagnosis: CHOLECYSTITIS, GALLSTONES Operative Findings: GALLBLADDER Operation Performed: LAPAROSCOPIC CHOLECYSTECTOMY Source of Specimen 1: GALLBLADDER (A) Gross Description MORRO HAIDER -, GALLBLADDER 5.8 x 3.2 x 2.2 cm focally disrupted gallbladder with a 2.0 cm long x 0.8 cm in diameter cystic duct. The serosa is green-ge, and the liver bed is coarse brown-green. The wall is 0.1 cm in thickness, and the lumen contains a small amount of tenacious green bile and within the specimen container are bosselated yellow-brown calculi, 3.2 x 2.5 x 1.0 cm in aggregate. The mucosa is green-ge and velvety. Cystic duct margin and sections of gallbladder mucosa 1cs. tm Microscopic Description Microscopic examination performed. [facility] Comment on above: Performed By: #### A HCV, HIVCMB #### [facility] [place], [place] [id number] #### GLYHGB #### [address] [place] [address] US GALLBLADDER RUQon 019 US GALLBLADDER RUQ EXAMINATION: GALLBLADDER ULTRASOUND 09/25/2018 8:01 am COMPARISON: None. HISTORY: ORDERING SYSTEM PROVIDED HISTORY: Abdominal pain, right upper quadrant FINDINGS: Visualized portions of the liver without acute abnormality. No focal hepatic mass lesion identified. Parenchymal echogenicity is grossly within normal limits. Borderline gallbladder wall thickening measuring 3-4 mm. Multiple intraluminal calculi identified. Head Mechanic documents a negative sonographic Magana's sign. The common bile duct is normal and measures 4-5 mm. IMPRESSION: Cholelithiasis and borderline gallbladder wall thickening. No evidence for pericholecystic fluid or sonographic Magana's sign. IMPRESSION: Unremarkable right upper quadrant ultrasound. Interpreted by: Chencho Fonseca MD Signed by: Chencho Fonseca MD 09/25/18 Final result [facility] Cult,Urineon 08-03-2018 Cult,Urine Specimen Description .CLEAN CATCH URINE Special Requests NOT REPORTED Culture NO SIGNIFICANT GROWTH Report Status FINAL 08/03/2018 [facility] Comment on above: Performed By: #### B HCG #### [address] [place] [address] #### PROG #### [facility] [place], [place] [id number] CBCon 08-02-2018 Erythrocyte distribution width (RBC) [Ratio] 16.2 % High 11.8-14.4 [facility] Comment on above: Performed By: #### B HCG #### [address] [place] [address] #### PROG #### [address] [address] Hematocrit (Bld) [Volume fraction] 31.0 % Low 36.3-47.1 [facility] Comment on above: Performed By: #### B HCG #### [address] [place] [address] #### PROG #### [address] [address] Hemoglobin (Bld) [Mass/Vol] 9.6 g/dL Low 11.9-15.1 [facility] Comment on above: Performed By: #### B HCG #### [address] [place] [address] #### PROG #### [address] [address] MCH (RBC) [Entitic mass] 25.2 pg Normal 25.2-33.5 [facility] Comment on above: Performed By: #### B HCG #### [address] [place] [address] #### PROG #### [address] [address] MCHC (RBC) [Mass/Vol] 31.0 g/dL Normal 28.4-34.8 [facility] Comment on above: Performed By: #### B HCG #### [address] [place] [address] #### PROG #### [address] [address] MCV (RBC) [Entitic vol] 81.4 fL Low 82.6-102.9 M [facility] Comment on above: Performed By: #### B HCG #### [address] [place] [address] #### PROG #### [address] [address] NRBC Automated 0.0 per 100 WBC Normal 0.0 [facility] Comment on above: Performed By: #### B HCG #### [address] [place] [address] #### PROG #### [address] [address] Platelet mean volume (Bld) [Entitic vol] 10.5 fL Normal 8.1-13.5 [facility] Comment on above: Performed By: #### B HCG #### [address] [place] [address] #### PROG #### [address] [address] Platelets (Bld) [#/Vol] 266 10*3/uL Normal 138-453 [facility] Comment on above: Performed By: #### B HCG #### [address] [place] [address] #### PROG #### [address] [address] RBC (Bld) [#/Vol] 3.81 10*6/uL Low 3.95-5.11 [facility] Comment on above: Performed By: #### B HCG #### [address] [place] [address] #### PROG #### [address] [address] WBC (Bld) [#/Vol] 18.9 10*3/uL High 3.5-11.3 [facility] Comment on above: Performed By: #### B HCG #### [address] [place] [address] #### PROG #### [address] [address] Erythrocyte distribution width (RBC) [Ratio] 16.3 % High 11.8-14.4 [facility] Comment on above: Performed By: #### B HCG #### [address] [place] [address] #### PROG #### [address] [address] Hematocrit (Bld) [Volume fraction] 34.6 % Low 36.3-47.1 [facility] Comment on above: Performed By: #### B HCG #### [address] [place] [address] #### PROG #### [address] [address] Hemoglobin (Bld) [Mass/Vol] 10.4 g/dL Low 11.9-15.1 [facility] Comment on above: Performed By: #### B HCG #### [address] [place] [address] #### PROG #### [address] [address] MCH (RBC) [Entitic mass] 24.9 pg Low 25.2-33.5 [facility] Comment on above: Performed By: #### B HCG #### [address] [place] [address] #### PROG #### [address] [address] MCHC (RBC) [Mass/Vol] 30.1 g/dL Normal 28.4-34.8 [facility] Comment on above: Performed By: #### B HCG #### [address] [place] [address] #### PROG #### [address] [address] MCV (RBC) [Entitic vol] 83.0 fL Normal 82.6-102.9 M [facility] Comment on above: Performed By: #### B HCG #### [address] [place] [address] #### PROG #### [address] [address] NRBC Automated 0.0 per 100 WBC Normal 0.0 [facility] Comment on above: Performed By: #### B HCG #### [address] [place] [address] #### PROG #### [address] [address] Platelet mean volume (Bld) [Entitic vol] 10.2 fL Normal 8.1-13.5 [facility] Comment on above: Performed By: #### B HCG #### [address] [place] [address] #### PROG #### [address] [address] Platelets (Bld) [#/Vol] 307 10*3/uL Normal 138-453 [facility] Comment on above: Performed By: #### B HCG #### [address] [place] [address] #### PROG #### [address] [address] RBC (Bld) [#/Vol] 4.17 10*6/uL Normal 3.95-5.11 [facility] Comment on above: Performed By: #### B HCG #### [address] [place] [address] #### PROG #### [id number] [place] [address] WBC (Bld) [#/Vol] 13.1 10*3/uL High 3.5-11.3 [facility] Comment on above: Performed By: #### B HCG #### [address] [place] [address] #### PROG #### [address] [address] Comp Metabolic Profon 2018 (cont.) Normal [facility] Comment on above: Result Comment: Aver age GFR for 30-39 years old: 107 mL/min/1.73sq m Chronic Kidney Disease: <60 mL/min/1.73sq m Kidney failure: <15 mL/min/1.73sq m eGFR calculated using average adult body mass. Additional eGFR calculator available at: http://www.Zank/multiple_crcl_2012.htm Performed By: #### B HCG #### [address] [place] [address] #### PROG #### [id number] [place] [address] Albumin [Mass/Vol] 3.0 g/dL Low 3.5-5.2 [facility] Comment on above: Performed By: #### B HCG #### [address] [place] [address] #### PROG #### [facility] [address] [place] [address] Albumin/Globulin [Mass ratio] 1.2 {ratio} Normal 1.0-2.5 [facility] Comment on above: Performed By: #### B HCG #### [address] [place] [address] #### PROG #### [address] [address] Alkaline Phos 117 U/L High 35-104 [facility] Comment on above: Performed By: #### B HCG #### [address] [place] [address] #### PROG #### [address] [address] ALT [Catalytic activity/Vol] 60 U/L High 5-33 [facility] Comment on above: Performed By: #### B HCG #### [address] [place] [address] #### PROG #### [address] [address] Anion gap [Moles/Vol] 12 mmol/L Normal 9-17 [facility] Comment on above: Performed By: #### B HCG #### [address] [place] [address] #### PROG #### [address] [address] AST [Catalytic activity/Vol] 54 U/L High <32 [facility] Comment on above: Performed By: #### B HCG #### [address] [place] [address] #### PROG #### [address] [address] Bilirubin Ql (U) 0.89 mg/dL Normal 0.3-1.2 [facility] Comment on above: Performed By: #### B HCG #### [address] [place] [address] #### PROG #### [address] [address] BUN/CRE Ratio 12 Normal 9-20 [facility] Comment on above: Performed By: #### B HCG #### [address] [place] [address] #### PROG #### [address] [address] Calcium [Mass/Vol] 9.1 mg/dL Normal 8.6-10.4 [facility] Comment on above: Performed By: #### B HCG #### [address] [place] [address] #### PROG #### [address] [address] Chloride [Moles/Vol] 102 mmol/L Normal 98-107 [facility] Comment on above: Performed By: #### B HCG #### [address] [place] [address] #### PROG #### [address] [address] CO2 [Moles/Vol] 21 mmol/L Normal 20-31 [facility] Comment on above: Performed By: #### B HCG #### [address] [place] [address] #### PROG #### [address] [address] Creatinine [Mass/Vol] 0.66 mg/dL Normal 0.50-0.90 [facility] Comment on above: Performed By: #### B HCG #### [address] [place] [address] #### PROG #### [address] [address] GFR, Amer >60 Normal >60 [facility] Comment on above: Performed By: #### B HCG #### [address] [place] [address] #### PROG #### [facility] [address] [place] [address] GFR,non Amer >60 Normal >60 [facility] Comment on above: Performed By: #### B HCG #### [address] [place] [address] #### PROG #### [facility] [address] [place] [address] Glucose [Mass/Vol] 144 mg/dL High 70-99 [facility] Comment on above: Performed By: #### B HCG #### [address] [place] [address] #### PROG #### [facility] [address] [place] [address] Potassium [Moles/Vol] 4.8 mmol/L Normal 3.7-5.3 [facility] Comment on above: Performed By: #### B HCG #### [address] [place] [address] #### PROG #### [facility] [address] [place] [address] Protein [Mass/Vol] 5.6 g/dL Low 6.4-8.3 [facility] Comment on above: Performed By: #### B HCG #### [address] [place] [address] #### PROG #### [facility] [address] [place] [address] Sodium [Moles/Vol] 135 mmol/L Normal 135-144 [facility] Comment on above: Performed By: #### B HCG #### [address] [place] [address] #### PROG #### [address] [address] Staging: Normal [facility] Comment on above: Result Comment: Stag e 1: Some kidney damage normal GFR Stage 2: Mild kidney damage GFR 60-89 Stage 3: Moderate kidney damage GFR 30-59 Stage 4: Severe kidney damage GFR 15-29 Stage 5: Severe kidney damage GFR <15 ESRD - chronic treatment by dialysis or transplant Performed By: #### B HCG #### [address] [place] [address] #### PROG #### [address] [address] Urea nitrogen [Mass/Vol] 8 mg/dL Normal 6-20 [facility] Comment on above: Performed By: #### B HCG #### [address] [place] [address] #### PROG #### [address] [address] (cont.) Normal [facility] Comment on above: Result Comment: Aver age GFR for 30-39 years old: 107 mL/min/1.73sq m Chronic Kidney Disease: <60 mL/min/1.73sq m Kidney failure: <15 mL/min/1.73sq m eGFR calculated using average adult body mass. Additional eGFR calculator available at: http://www.RADSONE.com/multiple_crcl_2012.htm Performed By: #### B HCG #### [address] [place] [address] #### PROG #### [address] [address] Albumin [Mass/Vol] 3.3 g/dL Low 3.5-5.2 [facility] Comment on above: Performed By: #### B HCG #### [address] [place] [address] #### PROG #### [address] [address] Albumin/Globulin [Mass ratio] 1.1 {ratio} Normal 1.0-2.5 [facility] Comment on above: Performed By: #### B HCG #### [address] [place] [address] #### PROG #### [address] [address] Alkaline Phos 137 U/L High 35-104 [facility] Comment on above: Performed By: #### B HCG #### [address] [place] [address] #### PROG #### [address] [address] ALT [Catalytic activity/Vol] 60 U/L High 5-33 [facility] Comment on above: Performed By: #### B HCG #### [address] [place] [address] #### PROG #### [address] [address] Anion gap [Moles/Vol] 14 mmol/L Normal 9-17 [facility] Comment on above: Performed By: #### B HCG #### [address] [place] [address] #### PROG #### [address] [address] AST [Catalytic activity/Vol] 53 U/L High <32 [facility] Comment on above: Performed By: #### B HCG #### [address] [place] [address] #### PROG #### [address] [address] Bilirubin Ql (U) 0.64 mg/dL Normal 0.3-1.2 [facility] Comment on above: Performed By: #### B HCG #### [address] [place] [address] #### PROG #### [address] [address] BUN/CRE Ratio 11 Normal 9-20 [facility] Comment on above: Performed By: #### B HCG #### [address] [place] [address] #### PROG #### [address] [address] Calcium [Mass/Vol] 9.2 mg/dL Normal 8.6-10.4 [facility] Comment on above: Performed By: #### B HCG #### [address] [place] [address] #### PROG #### [address] [address] Chloride [Moles/Vol] 100 mmol/L Normal 98-107 [facility] Comment on above: Performed By: #### B HCG #### [address] [place] [address] #### PROG #### [address] [address] CO2 [Moles/Vol] 22 mmol/L Normal 20-31 [facility] Comment on above: Performed By: #### B HCG #### [address] [place] [address] #### PROG #### [address] [address] Creatinine [Mass/Vol] 0.62 mg/dL Normal 0.50-0.90 [facility] Comment on above: Performed By: #### B HCG #### [address] [place] [address] #### PROG #### [address] [address] GFR, Amer >60 Normal >60 [facility] Comment on above: Performed By: #### B HCG #### [address] [place] [address] #### PROG #### [address] [address] GFR,non Amer >60 Normal >60 [facility] Comment on above: Performed By: #### B HCG #### [address] [place] [address] #### PROG #### [address] [address] Glucose [Mass/Vol] 90 mg/dL Normal 70-99 [facility] Comment on above: Performed By: #### B HCG #### [address] [place] [address] #### PROG #### [address] [address] Potassium [Moles/Vol] 4.3 mmol/L Normal 3.7-5.3 [facility] Comment on above: Performed By: #### B HCG #### [address] [place] [address] #### PROG #### [address] [address] Protein [Mass/Vol] 6.3 g/dL Low 6.4-8.3 [facility] Comment on above: Performed By: #### B HCG #### [address] [place] [address] #### PROG #### [address] [address] Sodium [Moles/Vol] 136 mmol/L Normal 135-144 [facility] Comment on above: Performed By: #### B HCG #### [address] [place] [address] #### PROG #### [address] [address] Staging: Normal [facility] Comment on above: Result Comment: Stag e 1: Some kidney damage normal GFR Stage 2: Mild kidney damage GFR 60-89 Stage 3: Moderate kidney damage GFR 30-59 Stage 4: Severe kidney damage GFR 15-29 Stage 5: Severe kidney damage GFR <15 ESRD - chronic treatment by dialysis or transplant Performed By: #### B HCG #### [address] [place] [address] #### PROG #### [address] [address] Urea nitrogen [Mass/Vol] 7 mg/dL Normal 6-20 [facility] Comment on above: Performed By: #### B HCG #### [address] [place] [address] #### PROG #### [address] [address] Drug Scr, Abuse, Uron 2018 Amphetamine(s),Ur Negative Normal NEG [facility] Comment on above: Performed By: #### B HCG #### [address] [place] [address] #### PROG #### [address] [address] Barbiturate(s),Ur Negative Normal [facility] Comment on above: Performed By: #### B HCG #### [address] [place] [address] #### PROG #### [address] [address] Base excess Calc (Bld) [Moles/Vol] Negative Normal [facility] Comment on above: Performed By: #### B HCG #### [address] [place] [address] #### PROG #### [address] [address] Benzodiazepine(s) Negative Normal [facility] Comment on above: Performed By: #### B HCG #### [address] [place] [address] #### PROG #### [address] [address] Buprenorphrine, Ur Negative Normal [facility] Comment on above: Performed By: #### B HCG #### [address] [place] [address] #### PROG #### [address] [address] Cannabinoid(s),Ur Negative Normal [facility] Comment on above: Performed By: #### B HCG #### [address] [place] [address] #### PROG #### [address] [address] Methadone Ql (U) Negative Normal [facility] Comment on above: Performed By: #### B HCG #### [address] [place] [address] #### PROG #### [address] [address] Methamphetamine, Ur Negative Normal NEG [facility] Comment on above: Performed By: #### B HCG #### [address] [place] [address] #### PROG #### [address] [address] Opiate(s), Ur Negative Normal NEG [facility] Comment on above: Performed By: #### B HCG #### [address] [place] [address] #### PROG #### [address] [address] Oxycodone, Urine Negative Normal NEG [facility] Comment on above: Performed By: #### B HCG #### [address] [place] [address] #### PROG #### [address] [address] Phencyclidine, Ur Negative Normal NEG [facility] Comment on above: Performed By: #### B HCG #### [address] [place] [address] #### PROG #### [address] [address] Propoxyphene,Urine Negative Normal NEG [facility] Comment on above: Performed By: #### B HCG #### [address] [place] [address] #### PROG #### [address] [address] Tricyclic antidepressants Screen Ql (U) Negative Normal NEG [facility] Comment on above: Result Comment: Drug screen results are to be used for medical purposes only. All positive results are unconfirmed. Testing for employment or legal uses should be sent to a reference laboratory for confirmation. Performed By: #### B HCG #### [address] [place] [address] #### PROG #### [address] [address] Interpretive Info NOT REPORTED Normal [facility] Comment on above: Performed By: #### B HCG #### [address] [place] [address] #### PROG #### [address] [address] MDMA, Urine NOT REPORTED Normal NEG [facility] Comment on above: Performed By: #### B HCG #### [address] [place] [address] #### PROG #### [address] [address] Lactate Dehydrogenaseon 07-22 LDH [Catalytic activity/Vol] 234 U/L High 135-214 [facility] Comment on above: Performed By: #### B HCG #### [address] [place] [address] #### PROG #### [address] [address] Surgical Pathologyon 019 Surgical Pathology (NOTE) [id number] [facility] [address] [place] [id number] SURGICAL PATHOLOGY CONSULTATION Patient Name: MORRO MALONEY [facility] Rec: [id number] Path Number: [id number] Collected: 08/02/2018 Received: 08/02/2018 Reported: 08/03/2018 15:34 -- Diagnosis -- PLACENTA OF BABY A: - THREE-VESSEL UMBILICAL CORD WITH MARGINAL INSERTION. - ACCESSORY LOBE. PLACENTA OF BABY B: - NO GROSS OR HISTOLOGIC ABNORMALITY IDENTIFIED. Satish Rocha, Electronically Signed Out /08/03/2018 Clinical Information Operative Findings: TWIN PLACENTA @ 33 W, 3 D Source of Specimen 1: PLACENTA TWIN Gross Description MORRO MALONEY, PLACENTA (BABY B PLACENTA WITH SUTURE, BABY A PLACENTA WITH CLAMP) Two separate placentas with attached membranes and umbilical cords. Attached to one cord is a suture designating baby B and attached to the other cored is a clamp designating baby A. PLACENTA OF BABY A UMBILICAL CORD Length: 27.0 cm Diameter: 1.4 cm True knots: No Number of vessels: 3 Spiraling: Normal Insertion into surface: Marginal MEMBRANES Color: [place]-ge, mostly translucent with a partial circummarginate insertion over approximately 60% of the disc. The remaining insertion is marginal. Meconium staining: No SURFACE Color: Purple-alvarenga, with a normal array of surface vessels. There is an accessory lobe and the vessels extend onto the lobe. Subchorionic fibrin: Marginal and involves approximately 5% of the disc MATERNAL SURFACE Cotyledons: -Fragmented/torn: (Approximately 20%) and completeness cannot be determined. -Focal lesions: No Placental size: 16.0 x 15.0 x 3.0 cm and the accessory lobe is 8.5 x 7.5 x 2.5 cm Shape: Irregular Weight: 369 grams PLACENTA OF BABY B UMBILICAL CORD Length: 40.0 cm Diameter: 1.6 cm True knots: No Number of vessels: 3 Spiraling: Normal Insertion into surface: Paracentral MEMBRANES Color: [place]-ge, translucent with a partial circummarginate insertion over approximately 50% of the disc. The remaining insertion is marginal. Meconium staining: No SURFACE Color: Purple-alvarenga, with a normal array of surface vessels Subchorionic fibrin: Marginal and involves approximately 5% of the disc MATERNAL SURFACE Cotyledons: -All present and intact: Yes -Focal lesions: No Placental size: 17.0 x 15.0 x 3.0 cm Shape: Ovoid Weight: 363 grams Cassette summary: A-C baby A, B-D baby B Microscopic Description BABY A Umbilical cord: Unremarkable Membranes: Unremarkable Meconium staining: No Infarcts: No Intervillous thrombi: No Subchorionic fibrin: Not significantly increased Villous maturation: Appropriate Nucleated erythrocytes in villous capillaries: Not increased Other: Few microcalcifications BABY B Umbilical cord: Unremarkable Membranes: Unremarkable Meconium staining: No Infarcts: No Intervillous thrombi: No Subchorionic fibrin: Not significantly increased Villous maturation: Appropriate Nucleated erythrocytes in villous capillaries: Not increased Other: Few microcalcifications Normal [facility] Comment on above: Performed By: #### B HCG #### [address] [place] [address] #### PROG #### [address] [address] Type + Screenon 08-02-2018 Type + Screen Sample Expiration 08/04/2018 Arm Band Number [id number] ABO/Rh(D) O POSITIVE Antibody Screen NEGATIVE Normal [facility] Comment on above: Performed By: #### B HCG #### [address] [place] [address] #### PROG #### [address] [address] Uric Acidon 08-02-2018 Urate [Mass/Vol] 5.9 mg/dL High 2.4-5.7 [facility] Comment on above: Performed By: #### B HCG #### [address] [place] [address] #### PROG #### [address] [address] Urinalysis, Routineon 2018 Acetoacetic Acid,Ur Negative Normal NEG [facility] Comment on above: Performed By: #### B HCG #### [address] [place] [address] #### PROG #### [address] [address] Bilirubin, SemiQt,Ur SMALL Abnormal NEG [facility] Comment on above: Performed By: #### B HCG #### [address] [place] [address] #### PROG #### [address] [address] Color (U) YELLOW Normal YEL [facility] Comment on above: Performed By: #### B HCG #### [address] [place] [address] #### PROG #### [address] [address] Glucose Ql (U) Negative Normal [facility] Comment on above: Performed By: #### B HCG #### [address] [place] [address] #### PROG #### [address] [address] Hemoglobin, Ur 3+ Abnormal NEG [facility] Comment on above: Performed By: #### B HCG #### [address] [place] [address] #### PROG #### [address] [address] Leukocyte esterase Test strip Ql (U) SMALL Abnormal NEG [facility] Comment on above: Performed By: #### B HCG #### [address] [place] [address] #### PROG #### [address] [address] Nitrite,Ur Negative Normal [facility] Comment on above: Performed By: #### B HCG #### [address] [place] [address] #### PROG #### [address] [address] pH (U) 6.0 [pH] Normal 5.0-9.0 [facility] Comment on above: Performed By: #### B HCG #### [address] [place] [address] #### PROG #### [address] [address] Protein Ql (U) 1+ Abnormal NEG [facility] Comment on above: Performed By: #### B HCG #### [address] [place] [address] #### PROG #### [address] [address] Specific gravity (U) [Rel density] 1.025 High 1.010-1.020 [facility] Comment on above: Performed By: #### B HCG #### [address] [place] [address] #### PROG #### [address] [address] Turbidity CLEAR Normal CLEAR [facility] Comment on above: Performed By: #### B HCG #### [address] [place] [address] #### PROG #### [address] [address] Urobilinogen,Ur Normal Normal NORM [facility] Comment on above: Performed By: #### B HCG #### [address] [place] [address] #### PROG #### [address] [address] Comment NOT REPORTED Normal [facility] Comment on above: Performed By: #### B HCG #### [address] [place] [address] #### PROG #### [address] [address] Urinalysis,Microon 9 ----- Normal [facility] Comment on above: Performed By: #### B HCG #### [address] [place] [address] #### PROG #### [address] [address] Epithelial cells LM.HPF (Urine sed) [#/Area] 0 TO 2 Normal 0-25 [facility] Comment on above: Performed By: #### B HCG #### [address] [place] [address] #### PROG #### [address] [address] RBC (U) [#/Vol] 10 TO 20 Normal 0-2 [facility] Comment on above: Performed By: #### B HCG #### [address] [place] [address] #### PROG #### [address] [address] WBC (U) [#/Vol] 5 TO 10 Normal 0-5 [facility] Comment on above: Performed By: #### B HCG #### [address] [place] [address] #### PROG #### [address] [address] Amorphous sediment LM Ql (Urine sed) NOT REPORTED Normal NONE [facility] Comment on above: Performed By: #### B HCG #### [address] [place] [address] #### PROG #### [facility] [address] [place] [address] Bacteria LM.HPF (Urine sed) [#/Area] NOT REPORTED Normal NONE [facility] Comment on above: Performed By: #### B HCG #### [address] [place] [address] #### PROG #### [address] [address] Casts LM.LPF (Urine sed) [#/Area] NOT REPORTED Normal [facility] Comment on above: Performed By: #### B HCG #### [address] [place] [address] #### PROG #### [address] [address] Crystals LM Nom (Urine sed) NOT REPORTED Normal [facility] Comment on above: Performed By: #### B HCG #### [address] [place] [address] #### PROG #### [address] [address] Epithelial, Renal NOT REPORTED Normal 0 [facility] Comment on above: Performed By: #### B HCG #### [address] [place] [address] #### PROG #### [facility] [address] [place] [address] Mucus Strands NOT REPORTED Normal NONE [facility] Comment on above: Performed By: #### B HCG #### [address] [place] [address] #### PROG #### [address] [address] Other Observations NOT REPORTED Normal NREQ [facility] Comment on above: Performed By: #### B HCG #### [address] [place] [address] #### PROG #### [address] [address] Trichomonas NOT REPORTED Normal NONE [facility] Comment on above: Performed By: #### B HCG #### [address] [place] [id number] #### PROG #### [address] [address] Yeast LM Ql (Urine sed) NOT REPORTED Normal NONE [facility] Comment on above: Performed By: #### B HCG #### [address] [place] [address] #### PROG #### [address] [address] CBC with Diffon 07-22-2018 Abs. Basophil 0.05 k/uL Normal 0.00-0.20 [facility] Comment on above: Performed By: #### B HCG #### [address] [place] [address] #### PROG #### [address] [address] Abs.Imm.Granulocyte 0.05 k/uL Normal 0.00-0.30 [facility] Comment on above: Performed By: #### B HCG #### [address] [place] [address] #### PROG #### [address] [address] Abs.Neutrophil (Seg) 6.50 k/uL Normal 1.50-8.10 [facility] Comment on above: Performed By: #### B HCG #### [address] [place] [address] #### PROG #### [address] [address] Basophils/100 WBC (Bld) 1 % Normal 0-2 M [facility] Comment on above: Performed By: #### B HCG #### [address] [place] [address] #### PROG #### [address] [address] Eosinophils (Bld) [#/Vol] 0.41 10*3/uL Normal 0.00-0.44 [facility] Comment on above: Performed By: #### B HCG #### [address] [place] [address] #### PROG #### [address] [address] Eosinophils/100 WBC (Bld) 4 % Normal 1-4 [facility] Comment on above: Performed By: #### B HCG #### [address] [place] [address] #### PROG #### [address] [address] Erythrocyte distribution width (RBC) [Ratio] 16.0 % High 11.8-14.4 [facility] Comment on above: Performed By: #### B HCG #### [address] [place] [address] #### PROG #### [address] [address] Hematocrit (Bld) [Volume fraction] 35.8 % Low 36.3-47.1 [facility] Comment on above: Performed By: #### B HCG #### [address] [place] [address] #### PROG #### [address] [address] Hemoglobin (Bld) [Mass/Vol] 10.9 g/dL Low 11.9-15.1 [facility] Comment on above: Performed By: #### B HCG #### [address] [place] [address] #### PROG #### [address] [address] Immature granulocytes (Bld) [#/Vol] 1 % High 0 [facility] Comment on above: Performed By: #### B HCG #### [address] [place] [address] #### PROG #### [address] [address] Lymphocytes (Bld) [#/Vol] 3.07 10*3/uL Normal 1.10-3.70 [facility] Comment on above: Performed By: #### B HCG #### [address] [place] [address] #### PROG #### [address] [address] Lymphocytes/100 WBC (Bld) 28 % Normal 24-43 [facility] Comment on above: Performed By: #### B HCG #### [address] [place] [address] #### PROG #### [address] [address] MCH (RBC) [Entitic mass] 25.6 pg Normal 25.2-33.5 [facility] Comment on above: Performed By: #### B HCG #### [address] [place] [address] #### PROG #### [place] [address] [place] [address] MCHC (RBC) [Mass/Vol] 30.4 g/dL Normal 28.4-34.8 [facility] Comment on above: Performed By: #### B HCG #### [address] [place] [address] #### PROG #### [address] [address] MCV (RBC) [Entitic vol] 84.0 fL Normal 82.6-102.9 [facility] Comment on above: Performed By: #### B HCG #### [address] [place] [address] #### PROG #### [address] [address] Monocytes (Bld) [#/Vol] 0.84 10*3/uL Normal 0.10-1.20 [facility] Comment on above: Performed By: #### B HCG #### [address] [place] [address] #### PROG #### [address] [address] Monocytes/100 WBC (Bld) 8 % Normal 3-12 M [facility] Comment on above: Performed By: #### B HCG #### [address] [place] [address] #### PROG #### [address] [address] Neutrophil (Seg) 58 % Normal 36-65 [facility] Comment on above: Performed By: #### B HCG #### [address] [place] [address] #### PROG #### [address] [address] NRBC Automated 0.0 per 100 WBC Normal 0.0 [facility] Comment on above: Performed By: #### B HCG #### [address] [place] [address] #### PROG #### [address] [address] Platelet mean volume (Bld) [Entitic vol] 10.4 fL Normal 8.1-13.5 [facility] Comment on above: Performed By: #### B HCG #### [address] [place] [address] #### PROG #### [address] [address] Platelets (Bld) [#/Vol] 260 10*3/uL Normal 138-453 [facility] Comment on above: Performed By: #### B HCG #### [address] [place] [address] #### PROG #### [address] [address] RBC (Bld) [#/Vol] 4.26 10*6/uL Normal 3.95-5.11 [facility] Comment on above: Performed By: #### B HCG #### [address] [place] [address] #### PROG #### [address] [address] WBC (Bld) [#/Vol] 10.9 10*3/uL Normal 3.5-11.3 [facility] Comment on above: Performed By: #### B HCG #### [address] [place] [address] #### PROG #### [address] [place] [address] Auto Diff Performed NOT REPORTED Normal [facility] Comment on above: Performed By: #### B HCG #### [address] [place] [address] #### PROG #### [address] [address] Platelets (Bld) [#/Vol] NOT REPORTED Normal [facility] Comment on above: Performed By: #### B HCG #### [address] [place] [address] #### PROG #### [address] [address] RBC morphology finding Nom (Bld) NOT REPORTED Normal [facility] Comment on above: Performed By: #### B HCG #### [address] [place] [address] #### PROG #### [address] [address] WBC Morphology NOT REPORTED Normal [facility] Comment on above: Performed By: #### B HCG #### [address] [place] [address] #### PROG #### [address] [address] Comp Metabolic Profon 2018 (cont.) Normal [facility] Comment on above: Result Comment: Aver age GFR for 30-39 years old: 107 mL/min/1.73sq m Chronic Kidney Disease: <60 mL/min/1.73sq m Kidney failure: <15 mL/min/1.73sq m eGFR calculated using average adult body mass. Additional eGFR calculator available at: http://www.RADSONE.com/multiple_crcl_2012.htm Performed By: #### B HCG #### [address] [place] [address] #### PROG #### [address] [address] Albumin [Mass/Vol] 3.2 g/dL Low 3.5-5.2 [facility] Comment on above: Performed By: #### B HCG #### [address] [place] [address] #### PROG #### [address] [address] Albumin/Globulin [Mass ratio] 1.1 {ratio} Normal 1.0-2.5 [facility] Comment on above: Performed By: #### B HCG #### [address] [place] [address] #### PROG #### [address] [address] Alkaline Phos 113 U/L High 35-104 [facility] Comment on above: Performed By: #### B HCG #### [address] [place] [address] #### PROG #### [address] [address] ALT [Catalytic activity/Vol] 41 U/L High 5-33 [facility] Comment on above: Performed By: #### B HCG #### [address] [place] [address] #### PROG #### [address] [address] Anion gap [Moles/Vol] 12 mmol/L Normal 9-17 [facility] Comment on above: Performed By: #### B HCG #### [address] [place] [address] #### PROG #### [address] [address] AST [Catalytic activity/Vol] 29 U/L Normal <32 [facility] Comment on above: Performed By: #### B HCG #### [address] [place] [address] #### PROG #### [address] [address] Bilirubin Ql (U) 0.40 mg/dL Normal 0.3-1.2 [facility] Comment on above: Performed By: #### B HCG #### [address] [place] [address] #### PROG #### [address] [address] BUN/CRE Ratio 8 Low 9-20 [facility] Comment on above: Performed By: #### B HCG #### [address] [place] [address] #### PROG #### [address] [address] Calcium [Mass/Vol] 9.2 mg/dL Normal 8.6-10.4 [facility] Comment on above: Performed By: #### B HCG #### [address] [place] [address] #### PROG #### [address] [address] Chloride [Moles/Vol] 104 mmol/L Normal 98-107 [facility] Comment on above: Performed By: #### B HCG #### [address] [place] [address] #### PROG #### [address] [address] CO2 [Moles/Vol] 21 mmol/L Normal 20-31 [facility] Comment on above: Performed By: #### B HCG #### [address] [place] [address] #### PROG #### [address] [address] Creatinine [Mass/Vol] 0.62 mg/dL Normal 0.50-0.90 [facility] Comment on above: Performed By: #### B HCG #### [address] [place] [address] #### PROG #### [address] [address] GFR, Amer >60 Normal >60 [facility] Comment on above: Performed By: #### B HCG #### [address] [place] [address] #### PROG #### [address] [address] GFR,non Amer >60 Normal >60 [facility] Comment on above: Performed By: #### B HCG #### [address] [place] [address] #### PROG #### [address] [address] Glucose [Mass/Vol] 83 mg/dL Normal 70-99 [facility] Comment on above: Performed By: #### B HCG #### [address] [place] [address] #### PROG #### [address] [address] Potassium [Moles/Vol] 4.3 mmol/L Normal 3.7-5.3 [facility] Comment on above: Performed By: #### B HCG #### [address] [place] [address] #### PROG #### [address] [address] Protein [Mass/Vol] 6.0 g/dL Low 6.4-8.3 [facility] Comment on above: Performed By: #### B HCG #### [address] [place] [address] #### PROG #### [address] [address] Sodium [Moles/Vol] 137 mmol/L Normal 135-144 [facility] Comment on above: Performed By: #### B HCG #### [address] [place] [address] #### PROG #### [address] [address] Staging: Normal [facility] Comment on above: Result Comment: Stag e 1: Some kidney damage normal GFR Stage 2: Mild kidney damage GFR 60-89 Stage 3: Moderate kidney damage GFR 30-59 Stage 4: Severe kidney damage GFR 15-29 Stage 5: Severe kidney damage GFR <15 ESRD - chronic treatment by dialysis or transplant Performed By: #### B HCG #### [address] [place] [address] #### PROG #### [address] [address] Urea nitrogen [Mass/Vol] 5 mg/dL Low 6-20 [facility] Comment on above: Performed By: #### B HCG #### [address] [place] [address] #### PROG #### [address] [place] [address] Creatinine,Random Uron 07-22 Creatinine [Mass/Vol] 106.1 mg/dL Normal 28.0-217.0 [place] Comment on above: Performed By: #### B HCG #### [address] [place] [address] #### PROG #### [address] [address] Cult,Urineon 07-22-2018 Cult,Urine Specimen Description .CLEAN CATCH URINE Special Requests NOT REPORTED Culture NO GROWTH Report Status FINAL 07/21/2018 Normal [facility] Comment on above: Performed By: #### B HCG #### [address] [place] [address] #### PROG #### [address] [address] Protein,Tot,[place] Uron 2018 Tot Prot. Conc. 14 mg/dL Normal [facility] Comment on above: Result Comment: No n ormal range established. Performed By: #### B HCG #### [address] [place] [address] #### PROG #### [address] [address] Uric Acidon 07-22-2018 Urate [Mass/Vol] 5.4 mg/dL Normal 2.4-5.7 [facility] Comment on above: Performed By: #### B HCG #### [address] [place] [address] #### PROG #### [address] [address] CBC with Diffon 07-21-2018 Abs. Basophil 0.06 k/uL Normal 0.00-0.20 [facility] Comment on above: Performed By: #### B HCG #### [address] [place] [address] Abs.Imm.Granulocyte 0.15 k/uL Normal 0.00-0.30 [facility] Comment on above: Performed By: #### B HCG #### [address] [place] [address] Abs.Neutrophil (Seg) 9.77 k/uL High 1.50-8.10 [facility] Comment on above: Performed By: #### B HCG #### [address] [place] [address] Basophils/100 WBC (Bld) 0 % Normal 0-2 [facility] Comment on above: Performed By: #### B HCG #### [address] [place] [address] Eosinophils (Bld) [#/Vol] 0.34 10*3/uL Normal 0.00-0.44 [facility] Comment on above: Performed By: #### B HCG #### [address] [place] [address] Eosinophils/100 WBC (Bld) 2 % Normal 1-4 [facility] Comment on above: Performed By: #### B HCG #### [address] [place] [address] Erythrocyte distribution width (RBC) [Ratio] 15.9 % High 11.8-14.4 [facility] Comment on above: Performed By: #### B HCG #### [address] [place] [address] Hematocrit (Bld) [Volume fraction] 34.5 % Low 36.3-47.1 [facility] Comment on above: Performed By: #### B HCG #### [address] [place], [facility] Hemoglobin (Bld) [Mass/Vol] 10.5 g/dL Low 11.9-15.1 [facility] Comment on above: Performed By: #### B HCG #### [address] [place] [address] Immature granulocytes (Bld) [#/Vol] 1 % High 0 [facility] Comment on above: Performed By: #### B HCG #### [address] [place] [address] Lymphocytes (Bld) [#/Vol] 3.00 10*3/uL Normal 1.10-3.70 [facility] Comment on above: Performed By: #### B HCG #### [address] [place] [address] Lymphocytes/100 WBC (Bld) 21 % Low 24-43 [facility] Comment on above: Performed By: #### B HCG #### [address] [place] [address] MCH (RBC) [Entitic mass] 25.5 pg Normal 25.2-33.5 [facility] Comment on above: Performed By: #### B HCG #### [address] [place] [address] MCHC (RBC) [Mass/Vol] 30.4 g/dL Normal 28.4-34.8 [facility] Comment on above: Performed By: #### B HCG #### [address] [place] [address] MCV (RBC) [Entitic vol] 83.9 fL Normal 82.6-102.9 M [facility] Comment on above: Performed By: #### B HCG #### [address] [place] [address] Monocytes (Bld) [#/Vol] 1.19 10*3/uL Normal 0.10-1.20 [facility] Comment on above: Performed By: #### B HCG #### [address] [place] [address] Monocytes/100 WBC (Bld) 8 % Normal 3-12 M [facility] Comment on above: Performed By: #### B HCG #### [address] [place] [address] Neutrophil (Seg) 68 % High 36-65 [facility] Comment on above: Performed By: #### B HCG #### [address] [place] [address] NRBC Automated 0.0 per 100 WBC Normal 0.0 [facility] Comment on above: Performed By: #### B HCG #### [address] [place] [address] Platelet mean volume (Bld) [Entitic vol] 9.9 fL Normal 8.1-13.5 [facility] Comment on above: Performed By: #### B HCG #### [address] [place] [address] Platelets (Bld) [#/Vol] 276 10*3/uL Normal 138-453 [facility] Comment on above: Performed By: #### B HCG #### [address] [place] [address] RBC (Bld) [#/Vol] 4.11 10*6/uL Normal 3.95-5.11 [facility] Comment on above: Performed By: #### B HCG #### [address] [place] [address] WBC (Bld) [#/Vol] 14.5 10*3/uL High 3.5-11.3 [facility] Comment on above: Performed By: #### B HCG #### [address] [place] [address] Auto Diff Performed NOT REPORTED Normal [facility] Comment on above: Performed By: #### B HCG #### [address] [place] [address] Platelets (Bld) [#/Vol] NOT REPORTED Normal [facility] Comment on above: Performed By: #### B HCG #### [address] [place] [address] RBC morphology finding Nom (Bld) NOT REPORTED Normal [facility] Comment on above: Performed By: #### B HCG #### [address] [place] [address] WBC Morphology NOT REPORTED Normal [facility] Comment on above: Performed By: #### B HCG #### [address] [place] [address] Comp Metabolic Profon 2018 AST [Catalytic activity/Vol] 33 U/L High <32 [facility] Comment on above: Performed By: #### B HCG #### [address] [place] [address] (cont.) Normal [facility] Comment on above: Result Comment: Aver age GFR for 30-39 years old: 107 mL/min/1.73sq m Chronic Kidney Disease: <60 mL/min/1.73sq m Kidney failure: <15 mL/min/1.73sq m eGFR calculated using average adult body mass. Additional eGFR calculator available at: http://www.RADSONE.[employer]/multiple_crcl_2012.htm Performed By: #### B HCG #### [address] [place] [address] Albumin [Mass/Vol] 3.3 g/dL Low 3.5-5.2 [facility] Comment on above: Performed By: #### B HCG #### [address] [place] [address] Albumin/Globulin [Mass ratio] 1.1 {ratio} Normal 1.0-2.5 [facility] Comment on above: Performed By: #### B HCG #### [address] [place] [address] Alkaline Phos 113 U/L High 35-104 [facility] Comment on above: Performed By: #### B HCG #### [address] [place] [address] ALT [Catalytic activity/Vol] 46 U/L High 5-33 [facility] Comment on above: Performed By: #### B HCG #### [address] [place] [address] Anion gap [Moles/Vol] 13 mmol/L Normal 9-17 [facility] Comment on above: Performed By: #### B HCG #### [address] [place] [address] Bilirubin Ql (U) 0.49 mg/dL Normal 0.3-1.2 [facility] Comment on above: Performed By: #### B HCG #### [address] [place] [address] BUN/CRE Ratio 12 Normal 9-20 [facility] Comment on above: Performed By: #### B HCG #### [address] [place] [address] Calcium [Mass/Vol] 9.5 mg/dL Normal 8.6-10.4 [facility] Comment on above: Performed By: #### B HCG #### [address] [place] [address] Chloride [Moles/Vol] 103 mmol/L Normal 98-107 [facility] Comment on above: Performed By: #### B HCG #### [address] [place] [address] CO2 [Moles/Vol] 20 mmol/L Normal 20-31 [facility] Comment on above: Performed By: #### B HCG #### [address] [place] [address] Creatinine [Mass/Vol] 0.57 mg/dL Normal 0.50-0.90 [facility] Comment on above: Performed By: #### B HCG #### [address] [place] [address] GFR, Amer >60 Normal >60 [facility] Comment on above: Performed By: #### B HCG #### [address] [place] [address] GFR,non Amer >60 Normal >60 [facility] Comment on above: Performed By: #### B HCG #### [address] [place] [address] Glucose [Mass/Vol] 94 mg/dL Normal 70-99 [facility] Comment on above: Performed By: #### B HCG #### [address] [place] [address] Potassium [Moles/Vol] 4.0 mmol/L Normal 3.7-5.3 [facility] Comment on above: Performed By: #### B HCG #### [address] [place] [address] Protein [Mass/Vol] 6.2 g/dL Low 6.4-8.3 [facility] Comment on above: Performed By: #### B HCG #### [address] [place] [address] Sodium [Moles/Vol] 136 mmol/L Normal 135-144 [facility] Comment on above: Performed By: #### B HCG #### [address] [place] [address] Staging: Normal [facility] Comment on above: Result Comment: Stag e 1: Some kidney damage normal GFR Stage 2: Mild kidney damage GFR 60-89 Stage 3: Moderate kidney damage GFR 30-59 Stage 4: Severe kidney damage GFR 15-29 Stage 5: Severe kidney damage GFR <15 ESRD - chronic treatment by dialysis or transplant Performed By: #### B HCG #### [address] [place] [address] Urea nitrogen [Mass/Vol] 7 mg/dL Normal 6-20 [facility] Comment on above: Performed By: #### B HCG #### [address] [place] [address] Urinalysis, Routineon 2018 Acetoacetic Acid,Ur 2+ Abnormal [facility] Comment on above: Performed By: #### B HCG #### [address] [place] [address] Bilirubin, SemiQt,Ur SMALL Abnormal NEG [facility] Comment on above: Performed By: #### B HCG #### [address] [place] [address] Color (U) YELLOW Normal [facility] Comment on above: Performed By: #### B HCG #### [address] [place] [address] Glucose Ql (U) Negative Normal [facility] Comment on above: Performed By: #### B HCG #### [address] [place] [address] Hemoglobin, Ur Negative Normal [facility] Comment on above: Performed By: #### B HCG #### [address] [place] [address] Leukocyte esterase Test strip Ql (U) TRACE Abnormal [facility] Comment on above: Performed By: #### B HCG #### [address] [place] [address] Nitrite,Ur Negative Normal [facility] Comment on above: Performed By: #### B HCG #### [address] [place] [address] pH (U) 5.5 [pH] Normal 5.0-9.0 [facility] Comment on above: Performed By: #### B HCG #### [address] [place] [address] Protein Ql (U) TRACE Abnormal NEG [facility] Comment on above: Performed By: #### B HCG #### [address] [place] [address] Specific gravity (U) [Rel density] 1.025 High 1.010-1.020 [facility] Comment on above: Performed By: #### B HCG #### [address] [place] [address] Turbidity CLEAR Normal CLEAR [facility] Comment on above: Performed By: #### B HCG #### [address] [place] [address] Urobilinogen,Ur Normal Normal NORM [facility] Comment on above: Performed By: #### B HCG #### [address] [place] [address] Comment NOT REPORTED Normal [facility] Comment on above: Performed By: #### B HCG #### [address] [place] [address] Urinalysis,Microon 9 ----- Normal [facility] Comment on above: Performed By: #### B HCG #### [address] [place] [address] Amorphous sediment LM Ql (Urine sed) 1+ Abnormal NONE [facility] Comment on above: Performed By: #### B HCG #### [address] [place] [address] Bacteria LM.HPF (Urine sed) [#/Area] 1+ Abnormal NONE [facility] Comment on above: Performed By: #### B HCG #### [address] [place] [address] Epithelial cells LM.HPF (Urine sed) [#/Area] 2 TO 5 Normal 0-25 [facility] Comment on above: Performed By: #### B HCG #### [address] [place] [id number] Mucus Strands TRACE Abnormal NONE [facility] Comment on above: Performed By: #### B HCG #### [address] [place] [id number] RBC (U) [#/Vol] 0 TO 2 Normal 0-2 [facility] Comment on above: Performed By: #### B HCG #### [address] [place] [id number] WBC (U) [#/Vol] 2 TO 5 Normal 0-5 [facility] Comment on above: Performed By: #### B HCG #### [address] [place] [address] Casts LM.LPF (Urine sed) [#/Area] NOT REPORTED Normal [facility] Comment on above: Performed By: #### B HCG #### [address] [place] [address] Crystals LM Nom (Urine sed) NOT REPORTED Normal [facility] Comment on above: Performed By: #### B HCG #### [address] [place] [address] Epithelial, Renal NOT REPORTED Normal 0 [facility] Comment on above: Performed By: #### B HCG #### [address] [place] [address] Other Observations NOT REPORTED Normal NREQ [facility] Comment on above: Performed By: #### B HCG #### [address] [place] [address] Trichomonas NOT REPORTED Normal NONE [facility] Comment on above: Performed By: #### B HCG #### [address] [place] [address] Yeast LM Ql (Urine sed) NOT REPORTED Normal NONE [facility] Comment on above: Performed By: #### B HCG #### [address] [place] [address] Cult,Urineon 07-20-2018 Cult,Urine Specimen Description .CLEAN CATCH URINE Special Requests NOT REPORTED Culture NO SIGNIFICANT GROWTH Report Status FINAL 07/20/2018 Normal [facility] Comment on above: Performed By: #### B HCG #### [address] [place], [facility] APTTon 07-19-2018 aPTT Coag (Bld) [Time] 27.0 s Normal 23.2-34.4 [place] Comment on above: Performed By: #### B HCG #### [address] [place] [address] CBC with Diffon 07-19-2018 Abs. Basophil 0.05 k/uL Normal 0.00-0.20 [facility] Comment on above: Performed By: #### B HCG #### [address] [place] [address] Abs.Imm.Granulocyte 0.07 k/uL Normal 0.00-0.30 [facility] Comment on above: Performed By: #### B HCG #### [address] [place] [address] Abs.Neutrophil (Seg) 7.01 k/uL Normal 1.50-8.10 [facility] Comment on above: Performed By: #### B HCG #### [address] [place] [address] Basophils/100 WBC (Bld) 0 % Normal 0-2 M [facility] Comment on above: Performed By: #### B HCG #### [address] [place] [address] Eosinophils (Bld) [#/Vol] 0.28 10*3/uL Normal 0.00-0.44 [facility] Comment on above: Performed By: #### B HCG #### [address] [place], [facility] Eosinophils/100 WBC (Bld) 2 % Normal 1-4 [facility] Comment on above: Performed By: #### B HCG #### [address] [place] [address] Erythrocyte distribution width (RBC) [Ratio] 15.8 % High 11.8-14.4 [facility] Comment on above: Performed By: #### B HCG #### [address] [place], [facility] Hematocrit (Bld) [Volume fraction] 34.1 % Low 36.3-47.1 [facility] Comment on above: Performed By: #### B HCG #### [address] [place], [facility] Hemoglobin (Bld) [Mass/Vol] 10.4 g/dL Low 11.9-15.1 [facility] Comment on above: Performed By: #### B HCG #### [address] [place], [facility] Immature granulocytes (Bld) [#/Vol] 1 % High 0 [facility] Comment on above: Performed By: #### B HCG #### [address] [place] [address] Lymphocytes (Bld) [#/Vol] 3.12 10*3/uL Normal 1.10-3.70 [facility] Comment on above: Performed By: #### B HCG #### [address] [place] [address] Lymphocytes/100 WBC (Bld) 27 % Normal 24-43 [facility] Comment on above: Performed By: #### B HCG #### [address] [place] [address] MCH (RBC) [Entitic mass] 25.6 pg Normal 25.2-33.5 [facility] Comment on above: Performed By: #### B HCG #### [address] [place] [address] MCHC (RBC) [Mass/Vol] 30.5 g/dL Normal 28.4-34.8 [facility] Comment on above: Performed By: #### B HCG #### [address] [place] [address] MCV (RBC) [Entitic vol] 84.0 fL Normal 82.6-102.9 [facility] Comment on above: Performed By: #### B HCG #### [address] [place] [address] Monocytes (Bld) [#/Vol] 0.93 10*3/uL Normal 0.10-1.20 [facility] Comment on above: Performed By: #### B HCG #### [address] [place] [address] Monocytes/100 WBC (Bld) 8 % Normal 3-12 M [facility] Comment on above: Performed By: #### B HCG #### [address] [place] [address] Neutrophil (Seg) 62 % Normal 36-65 [facility] Comment on above: Performed By: #### B HCG #### [address] [place] [address] NRBC Automated 0.0 per 100 WBC Normal 0.0 [facility] Comment on above: Performed By: #### B HCG #### [address] [place] [address] Platelet mean volume (Bld) [Entitic vol] 9.8 fL Normal 8.1-13.5 [facility] Comment on above: Performed By: #### B HCG #### [address] [place] [address] Platelets (Bld) [#/Vol] 277 10*3/uL Normal 138-453 [facility] Comment on above: Performed By: #### B HCG #### [address] [place] [address] RBC (Bld) [#/Vol] 4.06 10*6/uL Normal 3.95-5.11 [facility] Comment on above: Performed By: #### B HCG #### [address] [place] [address] WBC (Bld) [#/Vol] 11.5 10*3/uL High 3.5-11.3 [facility] Comment on above: Performed By: #### B HCG #### [address] [place] [address] Auto Diff Performed NOT REPORTED Normal [facility] Comment on above: Performed By: #### B HCG #### [address] [place] [address] Platelets (Bld) [#/Vol] NOT REPORTED Normal [facility] Comment on above: Performed By: #### B HCG #### [address] [place] [address] RBC morphology finding Nom (Bld) NOT REPORTED Normal [facility] Comment on above: Performed By: #### B HCG #### [address] [place] [address] WBC Morphology NOT REPORTED Normal [facility] Comment on above: Performed By: #### B HCG #### [address] [place] [address] Comp Metabolic Profon 2018 (cont.) Normal [facility] Comment on above: Result Comment: Aver age GFR for 30-39 years old: 107 mL/min/1.73sq m Chronic Kidney Disease: <60 mL/min/1.73sq m Kidney failure: <15 mL/min/1.73sq m eGFR calculated using average adult body mass. Additional eGFR calculator available at: http://[email or web address]/multiple_crcl_2011.htm Performed By: #### B HCG #### [address] [place] [id number] ([address] Albumin [Mass/Vol] 3.3 g/dL Low 3.5-5.2 [facility] Comment on above: Performed By: #### B HCG #### [address] [place] [address] Albumin/Globulin [Mass ratio] 1.2 {ratio} Normal 1.0-2.5 [facility] Comment on above: Performed By: #### B HCG #### [address] [place] [address] Alkaline Phos 108 U/L High 35-104 [facility] Comment on above: Performed By: #### B HCG #### [address] [place] [address] ALT [Catalytic activity/Vol] 40 U/L High 5-33 [facility] Comment on above: Performed By: #### B HCG #### [address] [place] [address] Anion gap [Moles/Vol] 11 mmol/L Normal 9-17 [facility] Comment on above: Performed By: #### B HCG #### [address] [place] [address] AST [Catalytic activity/Vol] 32 U/L High <32 [facility] Comment on above: Performed By: #### B HCG #### [address] [place] [address] Bilirubin Ql (U) 0.48 mg/dL Normal 0.3-1.2 [facility] Comment on above: Performed By: #### B HCG #### [address] [place] [address] BUN/CRE Ratio 12 Normal 9-20 [facility] Comment on above: Performed By: #### B HCG #### [address] [place] [address] Calcium [Mass/Vol] 9.4 mg/dL Normal 8.6-10.4 [facility] Comment on above: Performed By: #### B HCG #### [address] [place] [address] Chloride [Moles/Vol] 103 mmol/L Normal 98-107 [facility] Comment on above: Performed By: #### B HCG #### [address] [place] [address] CO2 [Moles/Vol] 22 mmol/L Normal 20-31 [facility] Comment on above: Performed By: #### B HCG #### [address] [place] [address] Creatinine [Mass/Vol] 0.66 mg/dL Normal 0.50-0.90 [facility] Comment on above: Performed By: #### B HCG #### [address] [place] [address] GFR, Amer >60 Normal >60 [facility] Comment on above: Performed By: #### B HCG #### [address] [place] [address] GFR,non Amer >60 Normal >60 [facility] Comment on above: Performed By: #### B HCG #### [address] [place] [address] Glucose [Mass/Vol] 86 mg/dL Normal 70-99 [facility] Comment on above: Performed By: #### B HCG #### [address] [place] [address] Potassium [Moles/Vol] 4.3 mmol/L Normal 3.7-5.3 [facility] Comment on above: Performed By: #### B HCG #### [address] [place] [address] Protein [Mass/Vol] 6.0 g/dL Low 6.4-8.3 [facility] Comment on above: Performed By: #### B HCG #### [address] [place] [address] Sodium [Moles/Vol] 136 mmol/L Normal 135-144 [facility] Comment on above: Performed By: #### B HCG #### [address] [place] [address] Staging: Normal [facility] Comment on above: Result Comment: Stag e 1: Some kidney damage normal GFR Stage 2: Mild kidney damage GFR 60-89 Stage 3: Moderate kidney damage GFR 30-59 Stage 4: Severe kidney damage GFR 15-29 Stage 5: Severe kidney damage GFR <15 ESRD - chronic treatment by dialysis or transplant Performed By: #### B HCG #### [address] [place] [address] Urea nitrogen [Mass/Vol] 8 mg/dL Normal 6-20 [facility] Comment on above: Performed By: #### B HCG #### [address] [place] [address] Fibrinogenon 07-19-2018 Fibrinogen 498 mg/dL High 185-451 [facility] Comment on above: Performed By: #### B HCG #### [address] [place] [address] PTon 07-19-2018 INR Coag (PPP) [Relative time] 1.0 {INR} Normal 0.9-1.2 [facility] Comment on above: Performed By: #### B HCG #### [address] [place] [address] PT Coag (PPP) [Time] 10.0 s Normal 9.7-12.2 [facility] Comment on above: Performed By: #### B HCG #### [address] [place], [facility] Protein,Tot,[place] 2018 Creatinine [Mass/Vol] 218.9 mg/dL High 28.0-217.0 [place] Comment on above: Performed By: #### B HCG #### [address] [place] [address] TP/Cre Ratio 0.11 Normal 0.00-0.20 [facility] Comment on above: Performed By: #### B HCG #### [address] [place] [address] Tot Prot. Conc. 23 mg/dL Normal [facility] Comment on above: Result Comment: No n ormal range established. Performed By: #### B HCG #### [address] [place], [place] [address] US BIOPHYSICAL PROFILE WO NON STRESS TESTINGon 07-19-2018 US BIOPHYSICAL PROFILE WO NON STRESS TESTING EXAMINATION: BIOPHYSICAL PROFILE WITHOUT NON-STRESS TEST 07/19/2018 TECHNIQUE: ULTRASOUND BIOPHYSICAL PROFILE WITHOUT NON-STRESS TEST COMPARISON: Pelvic ultrasound 06/12/2018. HISTORY: ORDERING SYSTEM PROVIDED HISTORY: twin TECHNOLOGIST PROVIDED HISTORY: twin FINDINGS: FETUS A: BIOPHYSICAL PROFILE: Tone: 2/2 Gross Body: 2/2 Breathin/2 Qualitative Fluid: 2/2 Biophysical Profile Score: 6/8 OTHER FINDINGS: heart rate 148 beats per minute. GENESIS 15.1 cm. FETUS B: BIOPHYSICAL PROFILE: Tone: 2/2 Gross Body: 2/2 Breathin/2 Qualitative Fluid: 2/2 Biophysical Profile Score: 6/8 OTHER FINDINGS: heart rate 140 beats per minute. GENESIS 16.1 cm. Cervical length 4.2 cm. IMPRESSION: Twin live intrauterine gestations with total biophysical profile scores of 6/8. Interpreted by: Cesario Ku MD Signed by: Cesario Ku MD 07/19/18 Edited Result - FINAL Normal [facility] US OB TRANSVAGINALon 019 US OB TRANSVAGINAL EXAMINATION: BIOPHYSICAL PROFILE WITHOUT NON-STRESS TEST 07/19/2018 TECHNIQUE: ULTRASOUND BIOPHYSICAL PROFILE WITHOUT NON-STRESS TEST COMPARISON: Pelvic ultrasound 06/12/2018. HISTORY: ORDERING SYSTEM PROVIDED HISTORY: twin TECHNOLOGIST PROVIDED HISTORY: twin FINDINGS: FETUS A: BIOPHYSICAL PROFILE: Tone: 2/2 Gross Body: 2/2 Breathin/2 Qualitative Fluid: 2/2 Biophysical Profile Score: 6/8 OTHER FINDINGS: heart rate 148 beats per minute. GENESIS 15.1 cm. FETUS B: BIOPHYSICAL PROFILE: Tone: 2/2 Gross Body: 2/2 Breathin/2 Qualitative Fluid: 2/2 Biophysical Profile Score: 6/8 OTHER FINDINGS: heart rate 140 beats per minute. GENESIS 16.1 cm. Cervical length 4.2 cm. IMPRESSION: Twin live intrauterine gestations with total biophysical profile scores of 6/8. Interpreted by: Cesario Ku MD Signed by: Cesario Ku MD 07/19/18 Final result Normal [facility] Uric Acidon 07-19-2018 Urate [Mass/Vol] 5.8 mg/dL High 2.4-5.7 [facility] Comment on above: Performed By: #### B HCG #### [address] [place] [address] Urinalysis, Routineon 2018 Acetoacetic Acid,Ur 1+ Abnormal NEG [facility] Comment on above: Performed By: #### B HCG #### [address] [place] [address] Bilirubin, SemiQt,Ur SMALL Abnormal NEG [facility] Comment on above: Performed By: #### B HCG #### [address] [place] [address] Color (U) YELLOW Normal YEL [facility] Comment on above: Performed By: #### B HCG #### [address] [place] [address] Glucose Ql (U) Negative Normal NEG [facility] Comment on above: Performed By: #### B HCG #### [address] [place] [address] Hemoglobin, Ur Negative Normal [facility] Comment on above: Performed By: #### B HCG #### [address] [place] [address] Leukocyte esterase Test strip Ql (U) LARGE Abnormal NEG [facility] Comment on above: Performed By: #### B HCG #### [address] [place] [address] Nitrite,Ur Negative Normal [facility] Comment on above: Performed By: #### B HCG #### [address] [place] [address] pH (U) 6.0 [pH] Normal 5.0-9.0 [facility] Comment on above: Performed By: #### B HCG #### [address] [place] [address] Protein Ql (U) TRACE Abnormal [facility] Comment on above: Performed By: #### B HCG #### [address] [place] [address] Specific gravity (U) [Rel density] 1.025 High 1.010-1.020 [facility] Comment on above: Performed By: #### B HCG #### [address] [place] [address] Turbidity CLOUDY Abnormal CLEAR [facility] Comment on above: Performed By: #### B HCG #### [address] [place] [address] Urobilinogen,Ur Normal Normal NORM [facility] Comment on above: Performed By: #### B HCG #### [address] [place] [address] Comment NOT REPORTED Normal [facility] Comment on above: Performed By: #### B HCG #### [address] [place] [address] Urinalysis,Microon 9 ----- Normal [facility] Comment on above: Performed By: #### B HCG #### [address] [place] [address] Bacteria LM.HPF (Urine sed) [#/Area] 3+ Abnormal NONE [facility] Comment on above: Performed By: #### B HCG #### [address] [place] [address] Epithelial cells LM.HPF (Urine sed) [#/Area] 10 TO 20 Normal 0-25 [facility] Comment on above: Performed By: #### B HCG #### [address] [place] [address] RBC (U) [#/Vol] None Normal 0-2 [facility] Comment on above: Performed By: #### B HCG #### [address] [place] [address] WBC (U) [#/Vol] 20 TO 50 Normal 0-5 [facility] Comment on above: Performed By: #### B HCG #### [address] [place] [address] Amorphous sediment LM Ql (Urine sed) NOT REPORTED Normal [facility] Comment on above: Performed By: #### B HCG #### [address] [place] [address] Casts LM.LPF (Urine sed) [#/Area] NOT REPORTED Normal [facility] Comment on above: Performed By: #### B HCG #### [address] [place] [address] Crystals LM Nom (Urine sed) NOT REPORTED Normal NONE [facility] Comment on above: Performed By: #### B HCG #### [address] [place] [address] Epithelial, Renal NOT REPORTED Normal 0 [facility] Comment on above: Performed By: #### B HCG #### [address] [place] [address] Mucus Strands NOT REPORTED Normal NONE [facility] Comment on above: Performed By: #### B HCG #### [address] [place] [address] Other Observations NOT REPORTED Normal NREQ [facility] Comment on above: Performed By: #### B HCG #### [address] [place] [address] Trichomonas NOT REPORTED Normal NONE [facility] Comment on above: Performed By: #### B HCG #### [address] [place] [address] Yeast LM Ql (Urine sed) NOT REPORTED Normal NONE [facility] Comment on above: Performed By: #### B HCG #### [address] [place] [address] Glucose Zeke. 3 hron 05-07-20 19 3 Hr 156 mg/dL High 65-139 [facility] Comment on above: Performed By: #### B HCG #### [address] [place] [address] 2 Hr 168 mg/dL High 65-154 [facility] Comment on above: Performed By: #### B HCG #### [address] [place] [address] 1 Hr 163 mg/dL Normal 65-179 [facility] Comment on above: Performed By: #### B HCG #### [address] [place] [address] Fasting 87 mg/dL Normal 65-94 [facility] Comment on above: Performed By: #### B HCG #### [address] [place] [address] Glucose [Mass/Vol] 100 g Normal [facility] Comment on above: Performed By: #### B HCG #### [address] [place] [address] CBC with Diffon 06-12-2018 Abs. Basophil 0.06 k/uL Normal 0.00-0.20 [facility] Comment on above: Performed By: #### P ASHLEY #### [address] [address] Abs.Imm.Granulocyte 0.09 k/uL Normal 0.00-0.30 [facility] Comment on above: Performed By: #### P ASHLEY #### [id number] [place] [address] Abs.Neutrophil (Seg) 10.61 k/uL High 1.50-8.10 [facility] Comment on above: Performed By: #### P ASHLEY #### [id number] [place] [address] Basophils/100 WBC (Bld) 0 % Normal 0-2 M [facility] Comment on above: Performed By: #### P ASHLEY #### [address] [place] [address] Eosinophils (Bld) [#/Vol] 0.16 10*3/uL Normal 0.00-0.44 [facility] Comment on above: Performed By: #### P ASHLEY #### [id number] [place] [address] Eosinophils/100 WBC (Bld) 1 % Normal 1-4 [facility] Comment on above: Performed By: #### P ASHLEY #### [address] [address] Erythrocyte distribution width (RBC) [Ratio] 14.8 % High 11.8-14.4 [facility] Comment on above: Performed By: #### P ASHLEY #### [address] [address] Hematocrit (Bld) [Volume fraction] 36.1 % Low 36.3-47.1 [facility] Comment on above: Performed By: #### P ASHLEY #### [address] [address] Hemoglobin (Bld) [Mass/Vol] 11.6 g/dL Low 11.9-15.1 [facility] Comment on above: Performed By: #### P ASHLEY #### [address] [address] Immature granulocytes (Bld) [#/Vol] 1 % High 0 [facility] Comment on above: Performed By: #### P ASHLEY #### [address] [address] Lymphocytes (Bld) [#/Vol] 3.44 10*3/uL Normal 1.10-3.70 [facility] Comment on above: Performed By: #### P ASHLEY #### [address] [address] Lymphocytes/100 WBC (Bld) 23 % Low 24-43 [facility] Comment on above: Performed By: #### P ASHLEY #### [address] [address] MCH (RBC) [Entitic mass] 27.0 pg Normal 25.2-33.5 [facility] Comment on above: Performed By: #### P ASHLEY #### [address] [address] MCHC (RBC) [Mass/Vol] 32.1 g/dL Normal 28.4-34.8 [facility] Comment on above: Performed By: #### P ASHLEY #### [address] [address] MCV (RBC) [Entitic vol] 84.1 fL Normal 82.6-102.9 [facility] Comment on above: Performed By: #### P ASHLEY #### [address] [address] Monocytes (Bld) [#/Vol] 0.85 10*3/uL Normal 0.10-1.20 [facility] Comment on above: Performed By: #### P ASHLEY #### [address] [address] Monocytes/100 WBC (Bld) 6 % Normal 3-12 M [facility] Comment on above: Performed By: #### P ASHLEY #### [address] [address] Neutrophil (Seg) 69 % High 36-65 [facility] Comment on above: Performed By: #### P ASHLEY #### [address] [address] NRBC Automated 0.0 per 100 WBC Normal 0.0 [facility] Comment on above: Performed By: #### P ASHLEY #### [address] [address] Platelet mean volume (Bld) [Entitic vol] 10.0 fL Normal 8.1-13.5 [facility] Comment on above: Performed By: #### P ASHLEY #### [address] [address] Platelets (Bld) [#/Vol] 333 10*3/uL Normal 138-453 [facility] Comment on above: Performed By: #### P ASHLEY #### [address] [address] RBC (Bld) [#/Vol] 4.29 10*6/uL Normal 3.95-5.11 [facility] Comment on above: Performed By: #### P ASHLEY #### [address] [address] WBC (Bld) [#/Vol] 15.2 10*3/uL High 3.5-11.3 [facility] Comment on above: Performed By: #### P ASHLEY #### [address] [address] Auto Diff Performed NOT REPORTED Normal [facility] Comment on above: Performed By: #### P ASHLEY #### [address] [address] Platelets (Bld) [#/Vol] NOT REPORTED Normal [facility] Comment on above: Performed By: #### P ASHLEY #### [address] [address] RBC morphology finding Nom (Bld) NOT REPORTED Normal [facility] Comment on above: Performed By: #### P ASHLEY #### [address] [address] WBC Morphology NOT REPORTED Normal [facility] Comment on above: Performed By: #### P ASHLEY #### [address] [address] Comp Metabolic Profon 2018 (cont.) Normal [facility] Comment on above: Result Comment: Aver age GFR for 30-39 years old: 107 mL/min/1.73sq m Chronic Kidney Disease: <60 mL/min/1.73sq m Kidney failure: <15 mL/min/1.73sq m eGFR calculated using average adult body mass. Additional eGFR calculator available at: http://[email or web address].Xray Imatek/multiple_crcl_2011.htm Performed By: #### P ASHLEY #### [facility] [address] [place] [address] Albumin [Mass/Vol] 3.5 g/dL Normal 3.5-5.2 [facility] Comment on above: Performed By: #### P ASHLEY #### [facility] [address] [place] [address] Albumin/Globulin [Mass ratio] 1.1 {ratio} Normal 1.0-2.5 [facility] Comment on above: Performed By: #### P ASHLEY #### [address] [address] Alkaline Phos 99 U/L Normal 35-104 [facility] Comment on above: Performed By: #### P ASHLEY #### [facility] [employer] [address] [place] [address] ALT [Catalytic activity/Vol] 22 U/L Normal 5-33 [facility] Comment on above: Performed By: #### P ASHLEY #### [address] [address] Anion gap [Moles/Vol] 12 mmol/L Normal 9-17 [facility] Comment on above: Performed By: #### P ASHLEY #### [facility] [employer] [address] [place] [address] AST [Catalytic activity/Vol] 18 U/L Normal <32 [facility] Comment on above: Performed By: #### P ASHLEY #### [facility] [employer] [address] [place] [address] Bilirubin Ql (U) 0.39 mg/dL Normal 0.3-1.2 [facility] Comment on above: Performed By: #### P ASHLEY #### [facility] [employer] [address] [place] [address] BUN/CRE Ratio 13 Normal 9-20 [facility] Comment on above: Performed By: #### P ASHLEY #### [address] [address] Calcium [Mass/Vol] 10.1 mg/dL Normal 8.6-10.4 [facility] Comment on above: Performed By: #### P ASHLEY #### [address] [address] Chloride [Moles/Vol] 102 mmol/L Normal 98-107 [facility] Comment on above: Performed By: #### P ASHLEY #### [address] [address] CO2 [Moles/Vol] 20 mmol/L Normal 20-31 [facility] Comment on above: Performed By: #### P ASHLEY #### [address] [address] Creatinine [Mass/Vol] 0.56 mg/dL Normal 0.50-0.90 [facility] Comment on above: Performed By: #### P ASHLEY #### [address] [address] GFR, Amer >60 Normal >60 [facility] Comment on above: Performed By: #### P ASHLEY #### [address] [address] GFR,non Amer >60 Normal >60 [facility] Comment on above: Performed By: #### P ASHLEY #### [address] [address] Glucose [Mass/Vol] 78 mg/dL Normal 70-99 [facility] Comment on above: Performed By: #### P ASHLEY #### [address] [address] Potassium [Moles/Vol] 4.2 mmol/L Normal 3.7-5.3 [facility] Comment on above: Performed By: #### P ASHLEY #### [employer] [address] [place] [address] Protein [Mass/Vol] 6.6 g/dL Normal 6.4-8.3 [facility] Comment on above: Performed By: #### P ASHLEY #### [address] [address] Sodium [Moles/Vol] 134 mmol/L Low 135-144 [facility] Comment on above: Performed By: #### P ASHLEY #### [address] [id number] Staging: Normal [facility] Comment on above: Result Comment: Stag e 1: Some kidney damage normal GFR Stage 2: Mild kidney damage GFR 60-89 Stage 3: Moderate kidney damage GFR 30-59 Stage 4: Severe kidney damage GFR 15-29 Stage 5: Severe kidney damage GFR <15 ESRD - chronic treatment by dialysis or transplant Performed By: #### P ASHLEY #### [address] [address] Urea nitrogen [Mass/Vol] 7 mg/dL Normal 6-20 [facility] Comment on above: Performed By: #### P ASHLEY #### [employer] [id number] US OB 14 PLUS WEEKS SINGLE O R FIRST GESTATIONon 06-12-2018 US OB 14 PLUS WEEKS SINGLE OR FIRST GESTATION EXAMINATION: TRANSABDOMINAL SECOND/THIRD TRIMESTER OBSTETRIC PELVIC ULTRASOUND WITH COLOR DOPPLER FLOW 06/12/2018 3:18 pm COMPARISON: None. Pelvic sonography performed 05/18/2018. HISTORY: ORDERING SYSTEM PROVIDED HISTORY: Patient states she is not feeling well., Low blood pressures. TECHNOLOGIST PROVIDED HISTORY: Twins Cervical Length FINDINGS: There is twin gestation. Baby A is in transverse position with a heart rate measuring 158 beats per minute. The biparietal diameter measures 6.4 cm, head circumference measures 23.9 cm, abdominal circumference measures 20.4 cm, and femur length measures 4.9 cm correlating with an average ultrasound age of 25 weeks 6 days. The estimated weight is 835 g correlating with the 21st percentile. There is an amniotic fluid index measuring 14.0 cm. The placenta is anteriorly located and grossly unremarkable. Baby B is in transverse position with a heart rate measuring 144 beats per minute. The biparietal diameter measures 6.2 cm, head circumference measures 23.2 cm, abdominal circumference measures 21.4 cm, and femur length measures 4.8 cm correlating with an average ultrasound age of 25 weeks 5 days. The estimated weight is 863 g correlating with the 28 percentile. There is an amniotic fluid index measuring 10.2 cm. The placenta is posteriorly located and grossly unremarkable. The cervix is closed measuring 4.8 cm in length. IMPRESSION: Twin live gestation with heart rate measuring 158 and 144 beats per minute respectively. The cervix is closed measuring 4.8 cm in length. Interpreted by: Keaton Denton MD Signed by: Keaton Denton MD 06/12/18 Edited Result - FINAL Normal [facility] US OB GREATER THAN 14 WEEKS ADDITIONAL FETUSon 06-12-2018 US OB GREATER THAN 14 WEEKS ADDITIONAL FETUS EXAMINATION: TRANSABDOMINAL SECOND/THIRD TRIMESTER OBSTETRIC PELVIC ULTRASOUND WITH COLOR DOPPLER FLOW 06/12/2018 3:18 pm COMPARISON: None. Pelvic sonography performed 05/18/2018. HISTORY: ORDERING SYSTEM PROVIDED HISTORY: Patient states she is not feeling well., Low blood pressures. TECHNOLOGIST PROVIDED HISTORY: Twins Cervical Length FINDINGS: There is twin gestation. Baby A is in transverse position with a heart rate measuring 158 beats per minute. The biparietal diameter measures 6.4 cm, head circumference measures 23.9 cm, abdominal circumference measures 20.4 cm, and femur length measures 4.9 cm correlating with an average ultrasound age of 25 weeks 6 days. The estimated weight is 835 g correlating with the 21st percentile. There is an amniotic fluid index measuring 14.0 cm. The placenta is anteriorly located and grossly unremarkable. Baby B is in transverse position with a heart rate measuring 144 beats per minute. The biparietal diameter measures 6.2 cm, head circumference measures 23.2 cm, abdominal circumference measures 21.4 cm, and femur length measures 4.8 cm correlating with an average ultrasound age of 25 weeks 5 days. The estimated weight is 863 g correlating with the 28 percentile. There is an amniotic fluid index measuring 10.2 cm. The placenta is posteriorly located and grossly unremarkable. The cervix is closed measuring 4.8 cm in length. IMPRESSION: Twin live gestation with heart rate measuring 158 and 144 beats per minute respectively. The cervix is closed measuring 4.8 cm in length. Interpreted by: Keaton Denton MD Signed by: Keaton Denton MD 06/12/18 Final result Normal [facility] US OB TRANSVAGINALon 019 US OB TRANSVAGINAL EXAMINATION: TRANSABDOMINAL SECOND/THIRD TRIMESTER OBSTETRIC PELVIC ULTRASOUND WITH COLOR DOPPLER FLOW 06/12/2018 3:18 pm COMPARISON: Pelvic sonography performed 05/18/2018 HISTORY: ORDERING SYSTEM PROVIDED HISTORY: Patient states she is not feeling well., Low blood pressures. TECHNOLOGIST PROVIDED HISTORY: Twins, cervical length FINDINGS: There is twin gestation. Baby A is in transverse position with a heart rate measuring 158 beats per minute. The biparietal diameter measures 6.4 cm, head circumference measures 23.9 cm, abdominal circumference measures 20.4 cm, and femur length measures 4.9 cm correlating with an average ultrasound age of 25 weeks 6 days. The estimated weight is 835 g correlating with the 21st percentile. There is an amniotic fluid index measuring 14.0 cm. The placenta is anteriorly located and grossly unremarkable. Baby B is in transverse position with a heart rate measuring 144 beats per minute. The biparietal diameter measures 6.2 cm, head circumference measures 23.2 cm, abdominal circumference measures 21.4 cm, and femur length measures 4.8 cm correlating with an average ultrasound age of 25 weeks 5 days. The estimated weight is 863 g correlating with the 28 percentile. There is an amniotic fluid index measuring 10.2 cm. The placenta is posteriorly located and grossly unremarkable. The cervix is closed measuring 4.8 cm in length. IMPRESSION: Twin live gestation with heart rate measuring 158 and 144 beats per minute respectively. The cervix is closed measuring 4.8 cm in length. Interpreted by: Keaton Denton MD Signed by: Keaton Denton MD 06/12/18 Final result Normal [facility] Urinalysis w/ Microon 2018 ----- Normal [facility] Comment on above: Performed By: #### P ASHLEY #### [facility] [place] [address] Acetoacetic Acid,Ur 1+ Abnormal NEG [facility] Comment on above: Performed By: #### P ASHLEY #### [address] [address] Amorphous sediment LM Ql (Urine sed) 4+ Abnormal [facility] Comment on above: Performed By: #### P ASHLEY #### [address] [address] Bacteria LM.HPF (Urine sed) [#/Area] 1+ Abnormal [facility] Comment on above: Performed By: #### P ASHLEY #### [address] [address] Bilirubin, SemiQt,Ur SMALL Abnormal [facility] Comment on above: Performed By: #### P ASHLEY #### [address] [address] Color (U) YELLOW [facility] Comment on above: Performed By: #### P ASHLEY #### [address] [address] Epithelial cells LM.HPF (Urine sed) [#/Area] 0 TO 2 Normal 0-25 [facility] Comment on above: Performed By: #### P ASHLEY #### [address] [address] Glucose Ql (U) Negative Normal [facility] Comment on above: Performed By: #### P ASHLEY #### [address] [address] Hemoglobin, Ur Negative Normal [facility] Comment on above: Performed By: #### P ASHLEY #### [address] [address] Leukocyte esterase Test strip Ql (U) SMALL Abnormal [facility] Comment on above: Performed By: #### P ASHLEY #### [address] [address] Nitrite,Ur Negative Normal NEG [facility] Comment on above: Performed By: #### P ASHLEY #### [address] [address] pH (U) 5.5 [pH] Normal 5.0-9.0 [facility] Comment on above: Performed By: #### P ASHLEY #### [address] [address] Protein Ql (U) TRACE Abnormal NEG [facility] Comment on above: Performed By: #### P ASHLEY #### [address] [address] RBC (U) [#/Vol] 0 TO 2 Normal 0-2 [facility] Comment on above: Performed By: #### P ASHLEY #### [address] [address] Specific gravity (U) [Rel density] >1.030 High 1.010-1.020 [facility] Comment on above: Performed By: #### P ASHLEY #### [address] [address] Turbidity CLOUDY Abnormal CLEAR [facility] Comment on above: Performed By: #### P ASHLEY #### [address] [address] Urobilinogen,Ur Normal Normal NORM [facility] Comment on above: Performed By: #### P ASHLEY #### [address] [address] WBC (U) [#/Vol] 2 TO 5 Normal 0-5 [facility] Comment on above: Performed By: #### P ASHLEY #### [address] [address] Casts LM.LPF (Urine sed) [#/Area] NOT REPORTED Normal [facility] Comment on above: Performed By: #### P ASHLEY #### [address] [address] Comment NOT REPORTED Normal [facility] Comment on above: Performed By: #### P ASHLEY #### [address] [address] Crystals LM Nom (Urine sed) NOT REPORTED Normal NONE [facility] Comment on above: Performed By: #### P ASHLEY #### [address] [address] Epithelial, Renal NOT REPORTED Normal 0 [facility] Comment on above: Performed By: #### P ASHLEY #### [address] [address] Mucus Strands NOT REPORTED Normal NONE [facility] Comment on above: Performed By: #### P ASHLEY #### [address] [address] Other Observations NOT REPORTED Normal NREQ [facility] Comment on above: Performed By: #### P ASHLEY #### [address] [address] Trichomonas NOT REPORTED Normal NONE [facility] Comment on above: Performed By: #### P ASHLEY #### [address] [address] Yeast LM Ql (Urine sed) NOT REPORTED Normal NONE [facility] Comment on above: Performed By: #### P ASHLEY #### [address] [address] US OB 14 PLUS WEEKS SINGLE O R FIRST GESTATIONon 05-18-2018 US OB 14 PLUS WEEKS SINGLE OR FIRST GESTATION EXAMINATION: TRANSABDOMINAL SECOND/THIRD TRIMESTER OBSTETRIC PELVIC ULTRASOUND WITH COLOR DOPPLER FLOW; FIRST TRIMESTER OBSTETRIC ULTRASOUND 05/18/2018 TECHNIQUE: TRANSABDOMINAL PELVIC ULTRASOUND WITH COLOR DOPPLER FLOW. Transvaginal first trimester obstetric pelvic ultrasound was performed with color Doppler flow evaluation. COMPARISON: May 05, 2015 HISTORY: ORDERING SYSTEM PROVIDED HISTORY: vaginal bleeding TECHNOLOGIST PROVIDED HISTORY: Please include cervical length FINDINGS: A twin live is present. heart rate measures 139 beats per minute. There is normal body and limb movement. The fetuses are in cephalic position. The placenta is located posterior. Cervical length measures 5.3 cm. A membrane is noted between the fetuses. The amniotic fluid volume is not assessed. Fluid appears grossly normal though on the low range of normal. The four-chamber heart, stomach, kidneys, urinary bladder, and spine are visualized and are grossly unremarkable for each fetus. Fetus A: BPD measures 5.49 cm. Head circumference measures 20.21 cm. Abdominal circumference measures 19.82 cm. Femur length measures 3.92 cm. Estimated weight is 600 grams which correlates to 86.0 percentile based upon last menstrual period. The HC/AC ratio is low as is the FL/AC ratio. Fetus B: BPD measures 5.15 cm. Head circumference measures 19.25 cm. Abdominal circumference measures 17.86 cm. Femur length measures 4.08 cm. Estimated weight is 531 grams which correlates to 52.1 percentile based upon last menstrual period. The FL/HC ratio is high. Estimated gestational age by current ultrasound is average of 22 weeks, 4 days. IMPRESSION: Twin live intrauterine with gestational age of 22 weeks, 4 days by current sonographic biometry. The estimated due date is September 17, 2018. Amniotic fluid volume appears within normal limits, on the low range of normal. RECOMMENDATIONS: Follow-up ultrasounds on this twin as clinically indicated. Interpreted by: Quyen Walker MD Signed by: Quyen Walker MD 05/18/18 Final result Normal [facility] US OB GREATER THAN 14 WEEKS ADDITIONAL FETUSon 05-18-2018 US OB GREATER THAN 14 WEEKS ADDITIONAL FETUS EXAMINATION: TRANSABDOMINAL SECOND/THIRD TRIMESTER OBSTETRIC PELVIC ULTRASOUND WITH COLOR DOPPLER FLOW; FIRST TRIMESTER OBSTETRIC ULTRASOUND 05/18/2018 TECHNIQUE: TRANSABDOMINAL PELVIC ULTRASOUND WITH COLOR DOPPLER FLOW. Transvaginal first trimester obstetric pelvic ultrasound was performed with color Doppler flow evaluation. COMPARISON: May 05, 2015 HISTORY: ORDERING SYSTEM PROVIDED HISTORY: vaginal bleeding TECHNOLOGIST PROVIDED HISTORY: Please include cervical length FINDINGS: A twin live is present. heart rate measures 139 beats per minute. There is normal body and limb movement. The fetuses are in cephalic position. The placenta is located posterior. Cervical length measures 5.3 cm. A membrane is noted between the fetuses. The amniotic fluid volume is not assessed. Fluid appears grossly normal though on the low range of normal. The four-chamber heart, stomach, kidneys, urinary bladder, and spine are visualized and are grossly unremarkable for each fetus. Fetus A: BPD measures 5.49 cm. Head circumference measures 20.21 cm. Abdominal circumference measures 19.82 cm. Femur length measures 3.92 cm. Estimated weight is 600 grams which correlates to 86.0 percentile based upon last menstrual period. The HC/AC ratio is low as is the FL/AC ratio. Fetus B: BPD measures 5.15 cm. Head circumference measures 19.25 cm. Abdominal circumference measures 17.86 cm. Femur length measures 4.08 cm. Estimated weight is 531 grams which correlates to 52.1 percentile based upon last menstrual period. The FL/HC ratio is high. Estimated gestational age by current ultrasound is average of 22 weeks, 4 days. IMPRESSION: Twin live intrauterine with gestational age of 22 weeks, 4 days by current sonographic biometry. The estimated due date is September 17, 2018. Amniotic fluid volume appears within normal limits, on the low range of normal. RECOMMENDATIONS: Follow-up ultrasounds on this twin as clinically indicated. Interpreted by: Quyen Walker MD Signed by: Quyen Walker MD 05/18/18 Final result Normal [facility] US OB TRANSVAGINALon 03-28-2 019 OB TRANSVAGINAL EXAMINATION: TRANSABDOMINAL SECOND/THIRD TRIMESTER OBSTETRIC PELVIC ULTRASOUND WITH COLOR DOPPLER FLOW; FIRST TRIMESTER OBSTETRIC ULTRASOUND 05/18/2018 TECHNIQUE: TRANSABDOMINAL PELVIC ULTRASOUND WITH COLOR DOPPLER FLOW. Transvaginal first trimester obstetric pelvic ultrasound was performed with color Doppler flow evaluation. COMPARISON: May 05, 2015 HISTORY: ORDERING SYSTEM PROVIDED HISTORY: vaginal bleeding TECHNOLOGIST PROVIDED HISTORY: Please include cervical length FINDINGS: A twin live is present. heart rate measures 139 beats per minute. There is normal body and limb movement. The fetuses are in cephalic position. The placenta is located posterior. Cervical length measures 5.3 cm. A membrane is noted between the fetuses. The amniotic fluid volume is not assessed. Fluid appears grossly normal though on the low range of normal. The four-chamber heart, stomach, kidneys, urinary bladder, and spine are visualized and are grossly unremarkable for each fetus. Fetus A: BPD measures 5.49 cm. Head circumference measures 20.21 cm. Abdominal circumference measures 19.82 cm. Femur length measures 3.92 cm. Estimated weight is 600 grams which correlates to 86.0 percentile based upon last menstrual period. The HC/AC ratio is low as is the FL/AC ratio. Fetus B: BPD measures 5.15 cm. Head circumference measures 19.25 cm. Abdominal circumference measures 17.86 cm. Femur length measures 4.08 cm. Estimated weight is 531 grams which correlates to 52.1 percentile based upon last menstrual period. The FL/HC ratio is high. Estimated gestational age by current ultrasound is average of 22 weeks, 4 days. IMPRESSION: Twin live intrauterine with gestational age of 22 weeks, 4 days by current sonographic biometry. The estimated due date is September 17, 2018. Amniotic fluid volume appears within normal limits, on the low range of normal. RECOMMENDATIONS: Follow-up ultrasounds on this twin as clinically indicated. Interpreted by: Quyen Walker MD Signed by: Quyen Walker MD 05/18/18 Final result Normal [facility] Urinalysis, Routineon 2018 Acetoacetic Acid,Ur Negative Normal [facility] Comment on above: Performed By: #### P ASHLEY #### [address] [address] Bilirubin, SemiQt,Ur Negative Normal [facility] Comment on above: Performed By: #### P ASHLEY #### [address] [address] Color (U) YELLOW Normal [facility] [facility] Comment on above: Performed By: #### P ASHLEY #### [facility] [address] [place] [address] Glucose Ql (U) Negative Normal [facility] Comment on above: Performed By: #### P ASHLEY #### [facility] [address] [place] [address] Hemoglobin, Ur 3+ Abnormal [facility] Comment on above: Performed By: #### P ASHLEY #### [address] [address] Leukocyte esterase Test strip Ql (U) LARGE Abnormal [facility] Comment on above: Performed By: #### P ASHLEY #### [address] [address] Nitrite,Ur Negative Normal NEG [facility] Comment on above: Performed By: #### P ASHLEY #### [address] [address] pH (U) 6.0 [pH] Normal 5.0-9.0 [facility] Comment on above: Performed By: #### P ASHLEY #### [address] [address] Protein Ql (U) Negative Normal NEG [facility] Comment on above: Performed By: #### P ASHLEY #### [address] [address] Specific gravity (U) [Rel density] 1.025 High 1.010-1.020 [facility] Comment on above: Performed By: #### P ASHLEY #### [address] [address] Turbidity CLOUDY Abnormal CLEAR [facility] Comment on above: Performed By: #### P ASHLEY #### [address] [address] Urobilinogen,Ur Normal Normal NORM [facility] Comment on above: Performed By: #### P ASHLEY #### [address] [address] Comment NOT REPORTED Normal [facility] Comment on above: Performed By: #### P ASHLEY #### [address] [address] Urinalysis,Microon 9 ----- Normal [facility] Comment on above: Performed By: #### P ASHLEY #### [address] [address] Bacteria LM.HPF (Urine sed) [#/Area] 3+ Abnormal NONE [facility] Comment on above: Performed By: #### P ASHLEY #### [address] [address] Epithelial cells LM.HPF (Urine sed) [#/Area] 50 TO 100 Normal 0-25 [facility] Comment on above: Performed By: #### P ASHLEY #### [address] [address] RBC (U) [#/Vol] 5 TO 10 Normal 0-2 [facility] Comment on above: Performed By: #### P ASHLEY #### [address] [address] WBC (U) [#/Vol] 20 TO 50 Normal 0-5 [facility] Comment on above: Performed By: #### P ASHLEY #### [address] [address] Amorphous sediment LM Ql (Urine sed) NOT REPORTED Normal [facility] Comment on above: Performed By: #### P ASHLEY #### [address] [address] Casts LM.LPF (Urine sed) [#/Area] NOT REPORTED Normal [facility] Comment on above: Performed By: #### P ASHLEY #### [address] [address] Crystals LM Nom (Urine sed) NOT REPORTED Normal [facility] Comment on above: Performed By: #### P ASHLEY #### [address] [address] Epithelial, Renal NOT REPORTED Normal 0 [facility] Comment on above: Performed By: #### P ASHLEY #### [address] [address] Mucus Strands NOT REPORTED Normal [facility] Comment on above: Performed By: #### P ASHLEY #### [address] [address] Other Observations NOT REPORTED Normal NREQ [facility] Comment on above: Performed By: #### P ASHLEY #### [address] [address] Trichomonas NOT REPORTED Normal [facility] Comment on above: Performed By: #### P ASHLEY #### [address] [address] Yeast LM Ql (Urine sed) NOT REPORTED Normal NONE [facility] Comment on above: Performed By: #### P ASHLEY #### [address] [address] CBC with Diffon 04-07-2018 Abs. Basophil 0.06 k/uL Normal 0.00-0.20 [facility] Comment on above: Performed By: #### E 2 #### [address] [address] Abs.Imm.Granulocyte 0.18 k/uL Normal 0.00-0.30 [facility] Comment on above: Performed By: #### E 2 #### [address] [address] Abs.Neutrophil (Seg) 15.05 k/uL High 1.50-8.10 [facility] Comment on above: Performed By: #### E 2 #### [address] [address] Basophils/100 WBC (Bld) 0 % Normal 0-2 M [facility] Comment on above: Performed By: #### E 2 #### [address] [address] Eosinophils (Bld) [#/Vol] 0.32 10*3/uL Normal 0.00-0.44 [facility] Comment on above: Performed By: #### E 2 #### [address] [address] Eosinophils/100 WBC (Bld) 2 % Normal 1-4 [facility] Comment on above: Performed By: #### E 2 #### [address] [address] Erythrocyte distribution width (RBC) [Ratio] 14.6 % High 11.8-14.4 [facility] Comment on above: Performed By: #### E 2 #### [address] [address] Hematocrit (Bld) [Volume fraction] 38.3 % Normal 36.3-47.1 [facility] Comment on above: Performed By: #### E 2 #### [address] [address] Hemoglobin (Bld) [Mass/Vol] 12.5 g/dL Normal 11.9-15.1 [facility] Comment on above: Performed By: #### E 2 #### [address] [address] Immature granulocytes (Bld) [#/Vol] 1 % High 0 [facility] Comment on above: Performed By: #### E 2 #### [address] [address] Lymphocytes (Bld) [#/Vol] 4.12 10*3/uL High 1.10-3.70 [facility] Comment on above: Performed By: #### E 2 #### [address] [address] Lymphocytes/100 WBC (Bld) 20 % Low 24-43 [facility] Comment on above: Performed By: #### E 2 #### [address] [address] MCH (RBC) [Entitic mass] 28.2 pg Normal 25.2-33.5 [facility] Comment on above: Performed By: #### E 2 #### [address] [address] MCHC (RBC) [Mass/Vol] 32.6 g/dL Normal 28.4-34.8 [facility] Comment on above: Performed By: #### E 2 #### [address] [address] MCV (RBC) [Entitic vol] 86.3 fL Normal 82.6-102.9 [facility] Comment on above: Performed By: #### E 2 #### [address] [address] Monocytes (Bld) [#/Vol] 0.91 10*3/uL Normal 0.10-1.20 [facility] Comment on above: Performed By: #### E 2 #### [address] [address] Monocytes/100 WBC (Bld) 4 % Normal 3-12 [facility] Comment on above: Performed By: #### E 2 #### [address] [address] Neutrophil (Seg) 73 % High 36-65 [facility] Comment on above: Performed By: #### E 2 #### [address] [address] NRBC Automated 0.0 per 100 WBC Normal 0.0 [facility] Comment on above: Performed By: #### E 2 #### [address] [address] Platelet mean volume (Bld) [Entitic vol] 9.7 fL Normal 8.1-13.5 [facility] Comment on above: Performed By: #### E 2 #### [address] [address] Platelets (Bld) [#/Vol] 310 10*3/uL Normal 138-453 [facility] Comment on above: Performed By: #### E 2 #### [address] [address] RBC (Bld) [#/Vol] 4.44 10*6/uL Normal 3.95-5.11 [facility] Comment on above: Performed By: #### E 2 #### [address] [address] WBC (Bld) [#/Vol] 20.6 10*3/uL High 3.5-11.3 [facility] Comment on above: Performed By: #### E 2 #### [address] [address] Auto Diff Performed NOT REPORTED Normal [facility] Comment on above: Performed By: #### E 2 #### [address] [address] Platelets (Bld) [#/Vol] NOT REPORTED Normal [facility] Comment on above: Performed By: #### E 2 #### [address] [address] RBC morphology finding Nom (Bld) NOT REPORTED Normal [facility] Comment on above: Performed By: #### E 2 #### [address] [address] WBC Morphology NOT REPORTED Normal [facility] Comment on above: Performed By: #### E 2 #### [address] [address] Comp Metabolic Profon 2018 Albumin [Mass/Vol] 3.7 g/dL Normal 3.5-5.2 [facility] Comment on above: Performed By: #### E 2 #### [address] [address] Albumin/Globulin [Mass ratio] 1.3 {ratio} Normal 1.0-2.5 [facility] Comment on above: Performed By: #### E 2 #### [facility] [place] [address] Alkaline Phos 61 U/L Normal 35-104 [facility] Comment on above: Performed By: #### E 2 #### [facility] [place] [address] ALT [Catalytic activity/Vol] 28 U/L Normal 5-33 [facility] Comment on above: Performed By: #### E 2 #### [facility] [place] [address] Anion gap [Moles/Vol] 15 mmol/L Normal 9-17 [facility] Comment on above: Performed By: #### E 2 #### [facility] [address] [place] [address] AST [Catalytic activity/Vol] 17 U/L Normal <32 [facility] Comment on above: Performed By: #### E 2 #### [facility] [place] [address] Bilirubin Ql (U) 0.27 mg/dL Low 0.3-1.2 [facility] Comment on above: Performed By: #### E 2 #### [facility] [address] [place] [address] BUN/CRE Ratio 17 Normal 9-20 [facility] Comment on above: Performed By: #### E 2 #### [facility] [place] [address] Calcium [Mass/Vol] 9.3 mg/dL Normal 8.6-10.4 [facility] Comment on above: Performed By: #### E 2 #### [facility] [place] [address] Chloride [Moles/Vol] 102 mmol/L Normal 98-107 [facility] Comment on above: Performed By: #### E 2 #### [facility] [place] [address] CO2 [Moles/Vol] 20 mmol/L Normal 20-31 [facility] Comment on above: Performed By: #### E 2 #### [address] [place] [address] Creatinine [Mass/Vol] 0.65 mg/dL Normal 0.50-0.90 [facility] Comment on above: Performed By: #### E 2 #### [facility] [address] [place] [address] GFR, Amer >60 Normal >60 [facility] Comment on above: Performed By: #### E 2 #### [facility] [address] [place] [address] GFR,non Amer >60 Normal >60 [facility] Comment on above: Performed By: #### E 2 #### [facility] [address] [place] [address] Glucose [Mass/Vol] 108 mg/dL High 70-99 [facility] Comment on above: Performed By: #### E 2 #### [address] [address] Potassium [Moles/Vol] 3.6 mmol/L Low 3.7-5.3 [facility] Comment on above: Performed By: #### E 2 #### [address] [address] Protein [Mass/Vol] 6.5 g/dL Normal 6.4-8.3 [facility] Comment on above: Performed By: #### E 2 #### [facility] [address] [place] [address] Sodium [Moles/Vol] 137 mmol/L Normal 135-144 [facility] Comment on above: Performed By: #### E 2 #### [address] [address] Urea nitrogen [Mass/Vol] 11 mg/dL Normal 6-20 [facility] Comment on above: Performed By: #### E 2 #### [facility] [place], [place] [phone] (cont.) Normal [facility] Comment on above: Result Comment: Aver age GFR for 30-39 years old: 107 mL/min/1.73sq m Chronic Kidney Disease: <60 mL/min/1.73sq m Kidney failure: <15 mL/min/1.73sq m eGFR calculated using average adult body mass. Additional eGFR calculator available at: http://www.Zank/multiple_crcl_2012.htm Performed By: #### E 2 #### [facility] [address] [place] [address] [phone] Staging: Normal [facility] Comment on above: Result Comment: Stag e 1: Some kidney damage normal GFR Stage 2: Mild kidney damage GFR 60-89 Stage 3: Moderate kidney damage GFR 30-59 Stage 4: Severe kidney damage GFR 15-29 Stage 5: Severe kidney damage GFR <15 ESRD - chronic treatment by dialysis or transplant Performed By: #### E 2 #### [facility] [address] [place] [address] [phone] Troponinon 04-07-2018 Troponin I.cardiac [Mass/Vol] ng/mL Normal <0.03 [facility] Comment on above: Result Comment: Trop onin T results cannot be compared to Troponin-I results. Performed By: #### E 2 #### [facility] [address] [place] [address] [phone] Troponin I.cardiac [Mass/Vol] Normal [facility] Comment on above: Result Comment: Refe rence Range: <0.03 Within reference range. 0.03-0.09 Possible myocardial damage. Repeat at appropriate intervals to rule out chronic elevation. >= 0.10 Indicative of myocardial damage. Patients with high levels of Biotin oral intake (i.e >5mg/day) may have falsely decreased Troponin T levels. Samples collected within 8 hours of biotin intake may require additional information for diagnosis. Performed By: #### E 2 #### [employer] [address] [place] [address] Troponin I.cardiac [Mass/Vol] NOT REPORTED Normal 0-14 [facility] Comment on above: Performed By: #### E 2 #### [facility] [address] [place] [address] Urinalysis, Routineon 2018 Acetoacetic Acid,Ur TRACE Abnormal NEG [facility] Comment on above: Performed By: #### E 2 #### [employer] [address] [place] [address] Bilirubin, SemiQt,Ur Negative Normal NEG [facility] Comment on above: Performed By: #### E 2 #### [facility] [address] [place] [address] Color (U) YELLOW Normal YEL [facility] Comment on above: Performed By: #### E 2 #### [facility] [address] [place] [address] Glucose Ql (U) Negative Normal NEG [facility] Comment on above: Performed By: #### E 2 #### [facility] [address] [place] [address] Hemoglobin, Ur Negative Normal NEG [facility] Comment on above: Performed By: #### E 2 #### [facility] [address] [place] [address] Leukocyte esterase Test strip Ql (U) SMALL Abnormal NEG [facility] Comment on above: Performed By: #### E 2 #### [facility] [address] [place] [address] Nitrite,Ur Negative Normal [facility] Comment on above: Performed By: #### E 2 #### [facility] [address] [place] [address] pH (U) 6.0 [pH] Normal 5.0-9.0 [facility] Comment on above: Performed By: #### E 2 #### [address] [address] Protein Ql (U) Negative Normal NEG [facility] Comment on above: Performed By: #### E 2 #### [address] [address] Specific gravity (U) [Rel density] >1.030 High 1.010-1.020 [facility] Comment on above: Performed By: #### E 2 #### [address] [address] Turbidity CLEAR Normal CLEAR [facility] Comment on above: Performed By: #### E 2 #### [address] [address] Urobilinogen,Ur Normal Normal NORM [facility] Comment on above: Performed By: #### E 2 #### [address] [address] Comment NOT REPORTED Normal [facility] Comment on above: Performed By: #### E 2 #### [address] [address] Urinalysis,Microon 9 ----- Normal [facility] Comment on above: Performed By: #### P ASHLEY #### [address] [address] Epithelial cells LM.HPF (Urine sed) [#/Area] None Normal 0-25 [facility] Comment on above: Performed By: #### P ASHLEY #### [address] [address] RBC (U) [#/Vol] None Normal 0-2 [facility] Comment on above: Performed By: #### P ASHLEY #### [address] [address] WBC (U) [#/Vol] 0 TO 2 Normal 0-5 [facility] Comment on above: Performed By: #### P ASHLEY #### [address] [address] Amorphous sediment LM Ql (Urine sed) NOT REPORTED Normal [facility] Comment on above: Performed By: #### P ASHLEY #### [address] [address] Bacteria LM.HPF (Urine sed) [#/Area] NOT REPORTED Normal [facility] Comment on above: Performed By: #### P ASHLEY #### [address] [address] Casts LM.LPF (Urine sed) [#/Area] NOT REPORTED Normal [facility] Comment on above: Performed By: #### P ASHLEY #### [address] [address] Crystals LM Nom (Urine sed) NOT REPORTED Normal [facility] Comment on above: Performed By: #### P ASHLEY #### [address] [address] Epithelial, Renal NOT REPORTED Normal 0 [facility] Comment on above: Performed By: #### P ASHLEY #### [address] [address] Mucus Strands NOT REPORTED Normal [facility] Comment on above: Performed By: #### P ASHLEY #### [address] [address] Other Observations NOT REPORTED Normal NREQ [facility] Comment on above: Performed By: #### P ASHLEY #### [address] [address] Trichomonas NOT REPORTED Normal [facility] Comment on above: Performed By: #### P ASHLEY #### [address] [address] Yeast LM Ql (Urine sed) NOT REPORTED Normal NONE [facility] Comment on above: Performed By: #### P ASHLEY #### [address] [place], [place] [phone] XR CHEST (2 VW)on 04-07-2018 XR CHEST (2 VW) EXAMINATION: TWO VIEWS OF THE CHEST 04/07/2018 12:49 pm COMPARISON: 01/22/2013, 04/24/2017 HISTORY: ORDERING SYSTEM PROVIDED HISTORY: dyspnea, - shield abd TECHNOLOGIST PROVIDED HISTORY: dyspnea, - shield abd 32-year-old female with dyspnea FINDINGS: dehairing machine tender leads overlie the chest. Trachea is midline. Cardiac and mediastinal contours are within normal limits. No pneumothorax is seen. No free air is seen below the diaphragm. No acute focal airspace consolidation or pleural effusions are identified. Mild diffuse degenerative changes throughout the spine. Shielding material projects over the abdomen. IMPRESSION: No acute focal airspace consolidation. Interpreted by: Victor Manuel Mcduffie MD Signed by: Victor Manuel Mcduffie MD 04/07/18 Final result Normal [facility] Chlamydia/GC DNA, Uron 02-03 Chlamydia Probe, Ur Negative Normal NEG [facility] Comment on above: Result Comment: CHLA MYDIA TRACHOMATIS DNA not detected by nucleic acid amplification. This test is intended for medical purposes only and is not valid for the evaluation of suspected sexual abuse or for other forensic purposes. In certain contexts, culture may be required to meet applicable laws and regulations for diagnosis of C. trachomatis and N. gonorrhoeae infections. Per 2014 CDC recommendations, this test does not include confirmation of positive results by an alternative nucleic acid target. Performed By: #### E 2 #### [facility] [address] [place] [address] Gonorrhea Probe, Ur Negative Normal NEG [facility] Comment on above: Result Comment: NEIS SERIA GONORRHOEAE DNA not detected by nucleic acid amplification. This test is intended for medical purposes only and is not valid for the evaluation of suspected sexual abuse or for other forensic purposes. In certain contexts, culture may be required to meet applicable laws and regulations for diagnosis of C. trachomatis and N. gonorrhoeae infections. Per 2014 CDC recommendations, this test does not include confirmation of positive results by an alternative nucleic acid target. Performed By: #### E 2 #### [address] [address] Cult,Urine,CCon 02-03-2018 Cult,Urine,CC Specimen Description .URINE Special Requests CCMS Culture NO SIGNIFICANT GROWTH Report Status FINAL 02/03/2018 [facility] Comment on above: Performed By: #### E 2 #### [address] [address] HIV Ag/Abon 02-03-2018 HIV Ag/Ab NONREACTIVE Normal [facility] Comment on above: Result Comment: No l aboratory evidence of HIV infection. If acute HIV infection is suspected, consider testing for HIV-1 RNA. Performed By: #### A HCV, HIVCMB #### [address] [address] #### GLYHGB #### [address] [place] [address] Hep C Abon 02-03-2018 Hep C Ab NONREACTIVE Normal [facility] Comment on above: Result Comment: The hepatitis C procedure used in our laboratory is a Chemiluminescent test specific for three recombinant HCV antigens. A negative anti-HCV result indicates that the antibodies to hepatitis C virus are not present at this time. Individuals with reactive anti-HCV should be considered infected and infectious until proven otherwise. Confirmation of all equivocal or reactive results is recommended by ordering HCV RNA by PCR. Performed By: #### A HCV, HIVCMB #### [address] [address] #### GLYHGB #### [address] [place] [address] Profileon 8 Hep B Surf Ag NONREACTIVE Normal [facility] Comment on above: Performed By: #### E 2 #### [address] [address] Rubella Ab, IgG 310.2 IU/mL Normal [facility] Comment on above: Result Comment: REFERENCE RANGE: <5.0 NON-REACTIVE (non-immune) 5.0 TO 9.9 EQUIVOCAL >=10.0 REACTIVE (immune) Performed By: #### E 2 #### [address] [address] T.pallidum Ab Screen NONREACTIVE Normal NR [facility] Comment on above: Result Comment: T. pallidum antibodies are not detected. There is no serological evidence of infection with T. pallidum (early primary syphilis cannot be excluded). Retest in 2-4 weeks if syphilis is clinically suspect. Performed By: #### E 2 #### [address] [address] Hemoglobin A1Con 02-02-2018 HbA1c (Bld) [Mass fraction] 111 mg/dL Normal [facility] Comment on above: Result Comment: The ADA and AACC recommend providing the estimated average glucose result to permit better patient understanding of their HBA1c result. Performed By: #### A HCV, HIVCMB #### [address] [address] #### GLYHGB #### [address] [place] [address] HbA1c (Bld) [Mass fraction] 5.5 % Normal 4.8-5.9 [facility] Comment on above: Performed By: #### A HCV, HIVCMB #### [address] [address] #### GLYHGB #### [address] [place] [address] Profileon 8 Abs. Basophil 0.07 k/uL Normal 0.00-0.20 [facility] Comment on above: Performed By: #### E 2 #### [address] [address] Abs.Imm.Granulocyte 0.05 k/uL Normal 0.00-0.30 [facility] Comment on above: Performed By: #### E 2 #### [address] [address] Abs.Neutrophil (Seg) 9.31 k/uL High 1.50-8.10 [facility] Comment on above: Performed By: #### E 2 #### [address] [address] Basophils/100 WBC (Bld) 1 % Normal 0-2 [facility] Comment on above: Performed By: #### E 2 #### [address] [address] Eosinophils (Bld) [#/Vol] 0.36 10*3/uL Normal 0.00-0.44 [facility] [facility] Comment on above: Performed By: #### E 2 #### [address] [address] Eosinophils/100 WBC (Bld) 3 % Normal 1-4 [facility] Comment on above: Performed By: #### E 2 #### [address] [address] Erythrocyte distribution width (RBC) [Ratio] 15.0 % High 11.8-14.4 [facility] Comment on above: Performed By: #### E 2 #### [address] [address] Hematocrit (Bld) [Volume fraction] 40.6 % Normal 36.3-47.1 [facility] Comment on above: Performed By: #### E 2 #### [address] [address] Hemoglobin (Bld) [Mass/Vol] 12.9 g/dL Normal 11.9-15.1 [facility] Comment on above: Performed By: #### E 2 #### [address] [address] Immature granulocytes (Bld) [#/Vol] 0 % Normal 0 [facility] Comment on above: Performed By: #### E 2 #### [address] [address] Lymphocytes (Bld) [#/Vol] 3.96 10*3/uL High 1.10-3.70 [facility] Comment on above: Performed By: #### E 2 #### [address] [address] Lymphocytes/100 WBC (Bld) 27 % Normal 24-43 [facility] Comment on above: Performed By: #### E 2 #### [address] [address] MCH (RBC) [Entitic mass] 27.8 pg Normal 25.2-33.5 [facility] Comment on above: Performed By: #### E 2 #### [address] [address] MCHC (RBC) [Mass/Vol] 31.8 g/dL Normal 28.4-34.8 [facility] Comment on above: Performed By: #### E 2 #### [address] [address] MCV (RBC) [Entitic vol] 87.5 fL Normal 82.6-102.9 [facility] Comment on above: Performed By: #### E 2 #### [address] [address] Monocytes (Bld) [#/Vol] 0.68 10*3/uL Normal 0.10-1.20 [facility] Comment on above: Performed By: #### E 2 #### [address] [address] Monocytes/100 WBC (Bld) 5 % Normal 3-12 M [facility] Comment on above: Performed By: #### E 2 #### [address] [address] Neutrophil (Seg) 64 % Normal 36-65 [facility] Comment on above: Performed By: #### E 2 #### [address] [address] NRBC Automated 0.0 per 100 WBC Normal 0.0 [facility] Comment on above: Performed By: #### E 2 #### [address] [address] Platelet mean volume (Bld) [Entitic vol] 9.7 fL Normal 8.1-13.5 [facility] Comment on above: Performed By: #### E 2 #### [address] [address] Platelets (Bld) [#/Vol] 315 10*3/uL Normal 138-453 [facility] Comment on above: Performed By: #### E 2 #### [address] [address] RBC (Bld) [#/Vol] 4.64 10*6/uL Normal 3.95-5.11 [facility] Comment on above: Performed By: #### E 2 #### [address] [address] WBC (Bld) [#/Vol] 14.4 10*3/uL High 3.5-11.3 [facility] Comment on above: Performed By: #### E 2 #### [address] [address] Auto Diff Performed NOT REPORTED Normal [facility] Comment on above: Performed By: #### E 2 #### [address] [address] Platelets (Bld) [#/Vol] NOT REPORTED Normal [facility] Comment on above: Performed By: #### E 2 #### [facility] [place] [address] RBC morphology finding Nom (Bld) NOT REPORTED Normal [facility] Comment on above: Performed By: #### E 2 #### [facility] [address] [place] [address] WBC Morphology NOT REPORTED Normal [facility] Comment on above: Performed By: #### E 2 #### [facility] [address] [place] [address] Type + Scrnon 02-02 Type + Scrn Negative Normal [facility] Comment on above: Performed By: #### E 2 #### [facility] [address] [place] [address] Toxicology Scree, Urineon Amphetamine(s),Ur Negative Normal NEG [facility] Comment on above: Performed By: #### E 2 #### [facility] [address] [place] [address] Barbiturate(s),Ur Negative Normal NEG [facility] Comment on above: Performed By: #### E 2 #### [facility] [address] [place] [address] Benzodiazepine(s) Negative Normal NEG [facility] Comment on above: Performed By: #### E 2 #### [facility] [address] [place] [address] Buprenorphrine, Ur Negative Normal NEG [facility] Comment on above: Performed By: #### E 2 #### [facility] [address] [place] [address] Cannabinoid(s),Ur Negative Normal NEG [facility] Comment on above: Performed By: #### E 2 #### [facility] [address] [place] [address] Cocaine Metabolite Negative Normal NEG [facility] Comment on above: Performed By: #### E 2 #### [facility] [address] [place] [address] Methadone Ql (U) Negative Normal NEG [facility] Comment on above: Performed By: #### E 2 #### [facility] [address] [place] [address] Methamphetamine, Ur Negative Normal NEG [facility] Comment on above: Performed By: #### E 2 #### [facility] [address] [place] [address] Opiate(s), Ur Negative Normal NEG [facility] Comment on above: Performed By: #### E 2 #### [address] [address] Oxycodone, Urine Negative Normal NEG [facility] Comment on above: Performed By: #### E 2 #### [address] [address] Phencyclidine, Ur Negative Normal NEG [facility] Comment on above: Performed By: #### E 2 #### [facility] [address] [place] [address] Propoxyphene,Urine Negative Normal NEG [facility] Comment on above: Performed By: #### E 2 #### [address] [address] Tricyclic antidepressants Screen Ql (U) Negative Normal NEG [facility] Comment on above: Result Comment: Drug screen results are to be used for medical purposes only. All positive results are unconfirmed. Testing for employment or legal uses should be sent to a reference laboratory for confirmation. Performed By: #### E 2 #### [address] [address] Interpretive Info NOT REPORTED Normal [facility] Comment on above: Performed By: #### E 2 #### [address] [address] MDMA, Urine NOT REPORTED Normal NEG [facility] Comment on above: Performed By: #### E 2 #### [address] [id number] HCG, [place] 01-16-2018 HCG, Quant 3157 IU/L High <5 [facility] Comment on above: Result Comment: Non-preg premeno <=5 Postmeno <=8 Male <=3 If HCG results do not concur with clinical observations, additional testing to confirm result is recommended. This test is not labeled for use as a tumor marker. Performed By: #### B HCG #### [address] [place] [address] #### PROG #### [address] [address] Progesteroneon 01-16-2018 Progesterone 29.56 ng/mL Normal [facility] Comment on above: Result Comment: FEMALE (healthy): Follicular phase 0.06-0.89 Ovulation phase 0.12-12.00 Luteal phase 1.83-23.90 Postmenopausal <0.13 Performed By: #### B HCG #### [address] [place] [address] #### PROG #### [address] [address] HCG, [place] 01-11-2018 HCG, Quant 428 IU/L High <5 [facility] Comment on above: Result Comment: Non-preg premeno <=5 Postmeno <=8 Male <=3 If HCG results do not concur with clinical observations, additional testing to confirm result is recommended. This test is not labeled for use as a tumor marker. Performed By: #### B HCG #### [address] [place] [address] HCG, [place] 01-09-2018 HCG, Quant 187 IU/L High <5 [facility] Comment on above: Result Comment: Non-preg premeno <=5 Postmeno <=8 Male <=3 If HCG results do not concur with clinical observations, additional testing to confirm result is recommended. This test is not labeled for use as a tumor marker. Performed By: #### B HCG #### [address] [place] [address] Progesteroneon 01-03-2018 Progesterone 35.39 ng/mL Normal [facility] Comment on above: Result Comment: FEMALE (healthy): Follicular phase 0.06-0.89 Ovulation phase 0.12-12.00 Luteal phase 1.83-23.90 Postmenopausal <0.13 Performed By: #### P ASHLEY #### [address] [address] Estradiolon 12-17-2017 Estradiol 410 pg/mL High -[address] [place] [address] Comment on above: Result Comment: FEMALES: Normally menstruating Luteal phase 33-298 Follicular phase 27-156 Midcycle phase 48-314 Postmenopausal (untreated) 5-50 Performed By: #### E 2 #### [address] [address] Estradiolon 12-06-2017 Estradiol 99 pg/mL Normal [address] [place] [address] Comment on above: Result Comment: FEMALES: Normally menstruating Luteal phase 33-298 Follicular phase 27-156 Midcycle phase 48-314 Postmenopausal (untreated) 5-50 Performed By: #### E 2 #### [address] [address] Vital Signs Date Time Vital Sign Value Performing Clinician Facility 11-09-2023 14:29-0400 Body height 160 cm Brandon Juares DO Work Phone: [facility] 11-09-2023 14:29-0400 Body mass index (BMI) [Ratio] 41.81 kg/m2 Brandon Juares DO Work Phone: [facility] 11-09-2023 14:29-0400 Body weight 107.05 kg Brandon Juares DO Work Phone: [facility] 10-12-2023 15:02-0400 Body height 160 cm Brandon Juares DO Work Phone: [facility] 10-12-2023 15:02-0400 Body mass index (BMI) [Ratio] 41.98 kg/m2 Brandon Juares DO Work Phone: [facility] 10-12-2023 15:02-0400 Body weight 107.5 kg Brandon Juares DO Work Phone: [facility] 09-21-2023 15:08-0400 Blood Pressure Location Mohamad Mouchli [facility] 09-21-2023 15:08-0400 Diastolic blood pressure 76 mm[Hg] Mohamad Mouchli [facility] 09-21-2023 15:08-0400 Heart rate 74 /min Mohamad Mouchli [facility] 09-21-2023 15:08-0400 Respiratory rate 16 /min Mohamad Mouchli [facility] 09-21-2023 15:08-0400 Systolic blood pressure 118 mm[Hg] Mohamad Mouchli [facility] 09-05-2023 14:00-0400 Diastolic blood pressure 77 mm[Hg] Mohamad Mouchli [facility] 09-05-2023 14:00-0400 Heart rate 70 /min Mohamad Mouchli [facility] 09-05-2023 14:00-0400 Mean blood pressure 95 mm[Hg] Mohamad Mouchli [facility] 09-05-2023 14:00-0400 SaO2% (BldA) [Mass fraction] 96 % Mohamad Mouchli [facility] 09-05-2023 14:00-0400 Systolic blood pressure 131 mm[Hg] Mohamad Mouchli [facility] 09-05-2023 13:50-0400 Diastolic blood pressure 60 mm[Hg] Mohamad Mouchli [facility] 09-05-2023 13:50-0400 Heart rate 87 /min Mohamad Mouchli [facility] 09-05-2023 13:50-0400 Mean blood pressure 87 mm[Hg] Mohamad Mouchli [facility] 09-05-2023 13:50-0400 Respiratory rate 15 /min Mohamad Mouchli [facility] 09-05-2023 13:50-0400 SaO2% (BldA) [Mass fraction] 98 % Mohamad Mouchli [facility] 09-05-2023 13:50-0400 Systolic blood pressure 142 mm[Hg] Mohamad Mouchli [facility] 09-05-2023 13:45-0400 Diastolic blood pressure 73 mm[Hg] Mohamad Mouchli [facility] 09-05-2023 13:45-0400 Heart rate 73 /min Mohamad Mouchli [facility] 09-05-2023 13:45-0400 Mean blood pressure 91 mm[Hg] Mohamad Mouchli [facility] 09-05-2023 13:45-0400 Respiratory rate 18 /min Mohamad Mouchli [facility] 09-05-2023 13:45-0400 SaO2% (BldA) [Mass fraction] 98 % Mohamad Mouchli [facility] 09-05-2023 13:45-0400 Systolic blood pressure 126 mm[Hg] Mohamad Mouchli [facility] 09-05-2023 13:35-0400 Body temperature 97.88 [degF] Mohamad Mouchli [facility] 09-05-2023 13:25-0400 Respiratory rate 12 /min Mohamad Mouchli [facility] 09-05-2023 13:15-0400 Respiratory rate 12 /min Mohamad Mouchli [facility] 09-05-2023 13:05-0400 Respiratory rate 12 /min Mohamad Mouchli [facility] 09-05-2023 13:01-0400 Blood Pressure Location Mohamad Mouchli [facility] 09-05-2023 13:01-0400 Body temperature 98.06 [degF] Mohamad Mouchli [facility] 09-01-2023 13:37-0400 Blood Pressure Location Mohamad Mouchli [facility] 09-01-2023 13:37-0400 Diastolic blood pressure 86 mm[Hg] Mohamad Mouchli [facility] 09-01-2023 13:37-0400 Heart rate 82 /min Mohamad Mouchli [facility] 09-01-2023 13:37-0400 Respiratory rate 16 /min Mohamad Mouchli [facility] 09-01-2023 13:37-0400 Systolic blood pressure 128 mm[Hg] Mohamad Mouchli [facility] 08-15-2023 11:28-0400 Body temperature 98.42 [degF] Quyen Garcia [facility] 08-15-2023 11:28-0400 Diastolic blood pressure 72 mm[Hg] Quyen Garcia [facility] 08-15-2023 11:28-0400 Heart rate 69 /min Quyen Garcia [facility] 08-15-2023 11:28-0400 Mean blood pressure 86 mm[Hg] Quyen Garcia [facility] 08-15-2023 11:28-0400 Respiratory rate 16 /min Quyen Garcia [facility] 08-15-2023 11:28-0400 SaO2% (BldA) [Mass fraction] 98 % Quyen Garcia [facility] 08-15-2023 11:28-0400 Systolic blood pressure 113 mm[Hg] Quyen Garcia [facility] 08-05-2023 13:12-0400 Heart rate 67 /min Cleo Mayra [facility] 08-05-2023 13:12-0400 SaO2% (BldA) [Mass fraction] 98 % Cleo Mayra [facility] 08-05-2023 13:12-0400 Body temperature 98.06 [degF] Cleo Mayra [facility] 08-05-2023 13:12-0400 Diastolic blood pressure 74 mm[Hg] Cleo Mayra [facility] 08-05-2023 13:12-0400 Mean blood pressure 89 mm[Hg] Cleo Mayra [facility] 08-05-2023 13:12-0400 Systolic blood pressure 119 mm[Hg] Cleo Mayra [facility] 08-05-2023 13:11-0400 Respiratory rate 16 /min Cleo Mayra [facility] 08-05-2023 09:09-0400 Heart rate 80 /min Cleo Mayra [facility] 08-05-2023 09:09-0400 SaO2% (BldA) [Mass fraction] 99 % Cleo Mayra [facility] 08-05-2023 09:09-0400 Respiratory rate 16 /min Cleo Mayra [facility] 08-05-2023 09:08-0400 Blood Pressure Location Cleo Mayra [facility] 08-05-2023 09:08-0400 Diastolic blood pressure 72 mm[Hg] Cleo Mayra [facility] 08-05-2023 09:08-0400 Mean blood pressure 88 mm[Hg] Cleo Mayra [facility] 08-05-2023 09:08-0400 Systolic blood pressure 119 mm[Hg] Cleo Mayra [facility] 08-05-2023 09:08-0400 Body temperature 98.06 [degF] Cleo Mayra [facility] 08-03-2023 14:08-0400 Heart rate 67 /min [facility] 08-03-2023 14:08-0400 Respiratory rate 16 /min [facility] 08-03-2023 13:00-0400 Diastolic blood pressure 59 mm[Hg] [facility] 08-03-2023 13:00-0400 Heart rate 74 /min [facility] 08-03-2023 13:00-0400 Mean blood pressure 73 mm[Hg] [facility] 08-03-2023 13:00-0400 Systolic blood pressure 102 mm[Hg] [facility] 08-03-2023 12:19-0400 Diastolic blood pressure 82 mm[Hg] [facility] 08-03-2023 12:19-0400 Heart rate 77 /min [facility] 08-03-2023 12:19-0400 Mean blood pressure 104 mm[Hg] [facility] 08-03-2023 12:19-0400 Respiratory rate 13 /min [facility] 08-03-2023 12:19-0400 SaO2% (BldA) [Mass fraction] 100 % [facility] 08-03-2023 12:19-0400 Systolic blood pressure 148 mm[Hg] [facility] 08-03-2023 11:02-0400 Body temperature 98.6 [degF] [facility] 08-03-2023 11:02-0400 Diastolic blood pressure 73 mm[Hg] [facility] 08-03-2023 11:02-0400 Heart rate 82 /min [facility] 08-03-2023 11:02-0400 Respiratory rate 20 /min [facility] 08-03-2023 11:02-0400 Systolic blood pressure 132 mm[Hg] [facility] 02-08-2022 15:44-0500 Body temperature 98.7 [degF] ERAN Selby Work Phone: [facility] 02-08-2022 15:44-0500 Diastolic blood pressure 61 mm[Hg] ERAN Selby Work Phone: [facility] 02-08-2022 15:44-0500 Heart rate 84 /min [employer] Abdullahi Cliff Work Phone: [facility] 02-08-2022 15:44-0500 Respiratory rate 22 /min [employer] Abdullahi Cliff Work Phone: [facility] 02-08-2022 15:44-0500 SaO2% (BldA) [Mass fraction] 95 % [employer] Abdullahi Cliff Work Phone: [facility] 02-08-2022 15:44-0500 Systolic blood pressure 131 mm[Hg] [employer] Abdullahi Cliff Work Phone: [facility] 02-08-2022 15:42-0500 Body height 162.56 cm [employer] Abdullahi Cliff Work Phone: [facility] 02-08-2022 15:42-0500 Body weight 101.5 kg [employer] Abdullahi Cliff Work Phone: [facility] 12-28-2021 16:00-0500 Body temperature 98 [degF] [employer] Abdullahi Cliff Work Phone: [facility] 12-28-2021 16:00-0500 Diastolic blood pressure 72 mm[Hg] [employer] Abdullahi Cliff Work Phone: [facility] 12-28-2021 16:00-0500 Heart rate 99 /min [employer] Abdullahi Cliff Work Phone: [facility] 12-28-2021 16:00-0500 Respiratory rate 18 /min [employer] Abdullahi Cliff Work Phone: [facility] 12-28-2021 16:00-0500 SaO2% (BldA) [Mass fraction] 94 % [employer] Abdullahi Cliff Work Phone: [facility] 12-28-2021 16:00-0500 Systolic blood pressure 110 mm[Hg] [employer] Abdullahi Cliff Work Phone: [facility] 12-28-2021 13:15-0500 Inhaled oxygen flow rate 1 L/min [employer] Abdullahi Selby Work Phone: [facility] 12-28-2021 04:17-0500 Body weight 103.8 kg [employer] Abdullahi Selby Work Phone: [facility] 12-27-2021 18:10-0500 Diastolic blood pressure 72 mm[Hg] [employer] Abdullahi Selby Work Phone: [facility] 12-27-2021 18:10-0500 Heart rate 104 /min [employer] Abdullahi Selby Work Phone: [facility] 12-27-2021 18:10-0500 Inhaled oxygen flow rate 2 L/min [employer] Abdullahi Selby Work Phone: [facility] 12-27-2021 18:10-0500 Respiratory rate 22 /min [employer] Abdullahi Selby Work Phone: [facility] 12-27-2021 18:10-0500 SaO2% (BldA) [Mass fraction] 91 % [employer] Abdullahi Selby Work Phone: [facility] 12-27-2021 18:10-0500 Systolic blood pressure 125 mm[Hg] [employer] Abdullahi Selby Work Phone: [facility] 12-27-2021 14:32-0500 Body height 162.56 cm [employer] Abdullahi Selby Work Phone: [facility] 12-27-2021 14:32-0500 Body temperature 97.9 [degF] [employer] Abdullahi Selby Work Phone: [facility] 12-27-2021 14:32-0500 Body weight 104.7 kg [employer] Abdullahi Selby Work Phone: [facility] 11-19-2021 13:25-0400 SaO2% (BldA) [Mass fraction] 93 % [employer] Abdullahi Cliff Work Phone: [facility] 11-19-2021 11:45-0400 Inhaled oxygen flow rate 3.5 L/min [employer] Abdullahi Cliff Work Phone: [facility] 11-19-2021 11:09-0400 Body temperature 98.2 [degF] [employer] Abdullahi Cliff Work Phone: [facility] 11-19-2021 11:09-0400 Diastolic blood pressure 68 mm[Hg] [employer] Abdullahi Cliff Work Phone: [facility] 11-19-2021 11:09-0400 Heart rate 78 /min [employer] Abdullahi Cliff Work Phone: [facility] 11-19-2021 11:09-0400 Respiratory rate 24 /min [employer] Abdullahi Cliff Work Phone: [facility] 11-19-2021 11:09-0400 Systolic blood pressure 120 mm[Hg] [employer] Abdullahi Cliff Work Phone: [facility] 11-19-2021 03:26-0400 Body weight 106 kg [employer] Abdullahi Cliff Work Phone: [facility] 11-18-2021 04:42-0400 Body height 162.56 cm [employer] Abdullahi Cliff Work Phone: [facility] 11-18-2021 04:06-0400 Diastolic blood pressure 71 mm[Hg] [employer] Abdullahi Cliff Work Phone: [facility] 11-18-2021 04:06-0400 Heart rate 88 /min [employer] Abdullahi Cliff Work Phone: [facility] 11-18-2021 04:06-0400 Inhaled oxygen flow rate 2 L/min [employer] Abdullahi Cliff Work Phone: [facility] 11-18-2021 04:06-0400 Respiratory rate 20 /min [employer] Abdullahi Cliff Work Phone: [facility] 11-18-2021 04:06-0400 SaO2% (BldA) [Mass fraction] 98 % [employer] HEL[employer]-Jase Selby Work Phone: [facility] 11-18-2021 04:06-0400 Systolic blood pressure 153 mm[Hg] [employer]-Jase Selby Work Phone: [facility] 11-18-2021 02:24-0400 Body height 162.56 cm BLASTER HELPERMelinda Selby Work Phone: [facility] 11-18-2021 02:24-0400 Body temperature 99 [degF] [employer]-Jase Selby Work Phone: [facility] 11-18-2021 02:24-0400 Body weight 108 kg BLASTER HELPERMelinda Selby Work Phone: [facility] 11-11-2021 11:23-0400 Body height 162.6 cm [facility] 11-11-2021 11:23-0400 Body weight 99.79 kg [facility] 01-29-2021 16:45-0500 Body height 160.02 cm Brandon Perez Other [facility] Other 01-29-2021 16:45-0500 Body mass index (BMI) [Ratio] 50.53 kg/m2 Brandon Perez Other [employer] Other 01-29-2021 16:45-0500 Body weight 129.41 kg Brandon Perez Other [employer] Other 01-29-2021 16:45-0500 Diastolic blood pressure 72 mm[Hg] Brandon Perez Other [employer] Other 01-29-2021 16:45-0500 Respiratory rate 18 /min Brandon Perez Other [employer] Other 01-29-2021 16:45-0500 SaO2% (BldA) [Mass fraction] 97 % Brandon Perez Other [employer] Other 01-29-2021 16:45-0500 Systolic blood pressure 128 mm[Hg] Brandon Perez Other [employer] Other 12-16-2020 10:00-0400 Body height 160.02 cm Brandon Perez Other [employer] Other 12-16-2020 10:00-0400 Body mass index (BMI) [Ratio] 50.3 kg/m2 Brandon Perez Other [employer] Other 12-16-2020 10:00-0400 Body weight 128.82 kg Brandon Perez Other [employer] Other 12-16-2020 10:00-0400 Diastolic blood pressure 84 mm[Hg] Brandon Perez Other [employer] Other 12-16-2020 10:00-0400 Systolic blood pressure 124 mm[Hg] Brandon Perez Other [employer] Other 11-13-2020 14:30-0400 Body height 160.02 cm Brandon Perez Other [employer] Other 11-13-2020 14:30-0400 Body mass index (BMI) [Ratio] 49.77 kg/m2 Brandon Perez Other [employer] Other 11-13-2020 14:30-0400 Body weight 127.46 kg Brandon Perez Other [employer] Other 11-13-2020 14:30-0400 Diastolic blood pressure 84 mm[Hg] Brandon Perez Other [employer] Other 11-13-2020 14:30-0400 SaO2% (BldA) [Mass fraction] 98 % Brandon Perez Other [employer] Other 11-13-2020 14:30-0400 Systolic blood pressure 122 mm[Hg] Brandon Perez Other [employer] Other Encounters Encounter Date Encounter Type Care Provider Facility Start: 12-05-2023 End: 12-05-2023 ambulatory Cleo Hernandez Facility:[facility] Start: 11-09-2023 End: 11-09-2023 Postop follow up visit related to original px Brandon Amanda Mor DO Work Phone: [facility] Comment on above: Status post partial thyroidectomy (CMS/HCC) (Primary Dx); Other hyperparathyroidism (CMS/HCC) Start: 11-09-2023 End: 11-09-2023 ambulatory BRANDON JUARES Not Available Start: 11-09-2023 End: 11-09-2023 Bamboo flowsheet Brandon Juares DO Work Phone: [facility] Start: 11-09-2023 End: 11-09-2023 Bamboo flowsheet Brandon Juares DO Work Phone: [facility] Start: 10-27-2023 End: 10-28-2023 Pre-admission assessment Quyen Garcia [facility] Start: 10-26-2023 End: 10-26-2023 ambulatory Quyen Garcia [place] [place]: 10-26-2023 End: 10-26-2023 Patient encounter procedure Quyen Garcia [facility] Start: 10-25-2023 End: 10-25-2023 Patient encounter procedure BLASTER HELPER-C Cleo Goldenab Work Phone: [facility] [place] Work Phone: Start: 10-25-2023 End: 10-25-2023 ambulatory BLASTER HELPER-C Cleo Hernandez Work Phone: [facility] Work Phone: Start: 10-12-2023 End: 10-12-2023 Postop follow up visit related to original px Brandon Juares DO Work Phone: [facility] Comment on above: Status post partial thyroidectomy (CMS/HCC) (Primary Dx); Thyroid mass (CMS/HCC); Low vitamin D level Start: 10-12-2023 End: 10-12-2023 ambulatory BRANDON JUARES Not Available Start: 10-12-2023 End: 10-12-2023 Bamboo flowsheet Brandon Juares DO Work Phone: [facility] Start: 10-12-2023 End: 10-12-2023 Bamboo flowsheet Brandon Juares DO Work Phone: [facility] Start: 10-05-2023 End: 10-05-2023 ambulatory BLASTER HELPER-C Cleo Hernandez Work Phone: [facility] Work Phone: Start: 10-05-2023 End: 10-05-2023 Departed Referred BLASTER HELPER-C Cleo Mayra Work Phone: [facility] [place] Work Phone: Start: 09-26-2023 End: 09-26-2023 Patient encounter procedure BLASTER HELPER-C Cleo Mayra Work Phone: [facility] Work Phone: Start: 09-26-2023 End: 09-26-2023 ambulatory BLASTER HELPER-C Cleo Hernandez Work Phone: [facility] Work Phone: Start: 09-21-2023 End: 09-21-2023 ambulatory [facility] Start: 09-21-2023 End: 09-21-2023 Patient encounter procedure Stefan Mclean [facility] Start: 09-20-2023 End: 09-20-2023 ambulatory BRANDON JACKSONBety Not Available Start: 09-17-2023 Patient encounter status Griffin Juares DO Work Phone: [facility] Start: 09-05-2023 End: 09-05-2023 ambulatory Stefan Mclean [place] [place] Start: 09-05-2023 End: 09-05-2023 Patient encounter procedure Stefan Mclean [facility] Start: 09-01-2023 End: 09-01-2023 Lab Drop off José Antoniocara Tonylyndsey [facility] Start: 09-01-2023 End: 09-01-2023 ambulatory Stefan Mclean [place] [place] Start: 09-01-2023 End: 09-01-2023 Patient encounter procedure Stefan Mclean [facility] Start: 09-01-2023 End: 09-01-2023 ambulatory Stefan Mclean Facility:[facility] Start: 09-01-2023 End: 09-01-2023 Patient encounter procedure Stefan Mclean [facility] Start: 08-16-2023 ambulatory Stefan Mclean Facilit y: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 Cleo L Mayra [place] [place] Start: 08-05-2023 End: 11-03-2023 Recurring Cleo L Mayra [facility] Start: 08-03-2023 End: 08-03-2023 Emergency department patient visit Elizabeth Moise [facility] Start: 08-01-2023 End: 08-01-2023 Lab Drop off Cleo L Mayra [facility] Start: 08-01-2023 End: 08-01-2023 ambulatory Cleo L Mayra [place] [place] Start: 04-26-2023 End: 04-27-2023 ambulatory ROLLY M MONY-NOSSEK Not Available Start: 03-29-2023 End: 03-29-2023 ambulatory Cleo L Mayra Facility:[facility] Ayde Start: 03-17-2023 End: 03-17-2023 ambulatory ROLLY M MONY-NOSSEK Not Available Start: 02-23-2023 End: 02-23-2023 ambulatory ABDULLAHI SELBY Not Available Start: 01-24-2023 End: 01-24-2023 ambulatory Cleo L Mayra [place] [place] Start: 10-18-2022 End: 10-18-2022 Lab Drop off Cleo L Mayra [facility] Start: 10-18-2022 End: 10-18-2022 ambulatory Cleo L Mayra [place] [place] Start: 10-07-2022 ambulatory Cleo Mayra Facility: [facility] Start: 06-28-2022 End: 06-28-2022 ambulatory KELLY RADER . Facility: Start: 02-08-2022 End: 02-08-2022 Emergency department patient visit BLASTER HELPER-C Abdullahi Selby Work Phone: [facility] Start: 12-27-2021 End: 12-28-2021 Evaluation and management of inpatient BLASTER HELPER-C Abdullahi Selby Work Phone: [facility] Start: 12-10-2021 End: 12-10-2021 Patient encounter procedure Meenakshi Obrien MD Work Phone: Ophthalmology Comment on above: Monocular esotropia, left eye (Primary Dx) Start: 11-27-2021 Telephone encounter Meenakshi sanchez MD Work Phone: Ophthalmology Comment on above: Patient Question Start: 11-26-2021 End: 11-26-2021 Patient encounter procedure Meenakshi Obrien MD Work Phone: Ophthalmology Comment on above: Monocular esotropia, left eye (Primary Dx) Start: 11-18-2021 End: 11-19-2021 Evaluation and management of inpatient BLASTER HELPER-C Abdullahi Selby Work Phone: [facility] [place] [facility] Start: 11-18-2021 observation encounter BLASTER HELPER-C Brooklyn Selby Work Phone: [facility] Work Phone: Start: 11-11-2021 End: 11-11-2021 [facility] [place] 1 Virtual Pre Anesthesia Comment on above: Preoperative examina tion (Primary Dx); Hyperlipidemia, unspecified hyperlipidemia type; Asthma, unspecified asthma severity, unspecified whether complicated, unspecified whether persistent; PATRICE (obstructive sleep apnea); H/O bariatric surgery; Steatosis of liver; Bipolar affective disorder, remission status unspecified (HCC); Obesity (BMI 30-39.9) Start: 11-11-2021 End: 11-11-2021 Preprocedural examination done Pac Virtual Pre Anesthesia Start: 11-02-2021 ambulatory Meenakshi christian MD Work Phone: Ophthalmology Comment on above: Paperwork Start: 10-05-2021 Telephone encounter Meenakshi sanchez MD Work Phone: Ophthalmology Comment on above: Schedule Surgery Start: 10-02-2021 End: 10-02-2021 Patient encounter procedure Meenakshi Obrien MD Work Phone: Ophthalmology Comment on above: Monocular esotropia, left eye (Primary Dx); Diplopia Start: 06-17-2021 End: 06-17-2021 ambulatory Rolly Carrera Other [employer] Other Start: 06-17-2021 Telephone encounter Rolly rebolledo [facility] Start: 02-24-2021 (Procedure) Stoy Brandon Chris [facility] Start: 02-24-2021 End: 02-24-2021 ambulatory Brandon Perez Other [employer] Other Start: 01-29-2021 End: 01-29-2021 ambulatory Brandon Perez Other [employer] Other Start: 01-29-2021 Office outpatient vi sit 25 minutes Brandon Perez [facility] Start: 12-16-2020 Office outpatient vi sit 25 minutes Brandon Perez [facility] Start: 12-09-2020 (Procedure) Stoy Brandon Chris [facility] Start: 11-13-2020 Office outpatient vi sit [facility] Start: 09-28-2018 End: 09-28-2018 Patient encounter procedure ARACELY ALANIZ [facility] Start: 09-25-2018 End: 09-28-2018 Patient encounter procedure JACKELYN Rebolledo [facility] Start: 08-02-2018 End: 08-03-2018 Evaluation and management of inpatient FARM[place] Hannah [facility] Start: 07-22-2018 End: 07-23-2018 Patient encounter procedure LETICIA E [facility] Start: 07-21-2018 End: 07-21-2018 Patient encounter procedure FARMINGTON Hannah [facility] Start: 07-19-2018 End: 07-19-2018 Patient encounter procedure JACKELYN Rebolledo [facility] Start: 06-27-2018 End: 06-28-2018 Patient encounter procedure FARMINGTON Hannah [facility] Start: 06-12-2018 End: 06-12-2018 Patient encounter procedure F[place] Hannah [facility] Start: 05-18-2018 End: 05-18-2018 [facility] Start: 04-07-2018 End: 04-07-2018 Emergency department patient visit JACKELYN L [facility] Start: 02-02-2018 End: 02-03-2018 Patient encounter procedure FARMINGTON Hannah [facility] Start: 02-02-2018 End: 02-02-2018 Patient encounter procedure LETICIA E [facility] Start: 01-16-2018 End: 01-17-2018 Patient encounter procedure HANNAH R Man [facility] Start: 01-11-2018 End: 01-12-2018 Patient encounter procedure HANNAH Antonio Man [facility] Start: 01-09-2018 End: 01-10-2018 Patient encounter procedure HANNAH R Man [facility] Start: 01-02-2018 End: 01-03-2018 Patient encounter procedure HANNAH [facility] Start: 12-16-2017 End: 12-17-2017 Patient encounter procedure HANNAH [facility] Start: 12-06-2017 End: 12-07-2017 Patient encounter procedure [facility] Procedures Date Procedure Procedure Detail Performing Clinician Start: 09-05-2023 Colonoscopy Stefan Mclean Start: 09-05-2023 Esophagogastroduodenoscopy Kevinkaylan pope Start: 07-17-2022 H/O: surgery History of parotidectomy Brandon Juares DO Work Phone: Start: 02-08-2022 Plain chest X-ray BLASTER HELPER-C Abdullahi Selby Work Phone: Start: 12-27-2021 Plain chest X-ray BLASTER HELPER-C Abdullahi Selby Work Phone: Start: 11-18-2021 Plain chest X-ray BLASTER HELPER-C Abdullahi Selby Work Phone: Start: 09-28-2018 BEDREST JACKELYN RINE Start: 09-28-2018 Continuous pulse oximetry JACKELYN RINE Start: 09-28-2018 ENCOURAGE DEEP BREATHING AND COUGHING JACKELYN RINE Start: 09-28-2018 INITIATE OXYGEN THERAPY PROTOCOL JACKELYN R INE Start: 09-28-2018 NOTIFY PHYSICIAN (SPECIFY) JACKELYN RINE Start: 09-28-2018 NURSING COMMUNICATION JACKELYN RINE Start: 09-28-2018 VITAL SIGNS JACKELYN RINE Start: 09-28-2018 DISCHARGE PATIENT JACKELYN RINE Start: 09-28-2018 Level iv surg pathology gross&microscopic exam JACKELYN RINE Start: 09-28-2018 Urine test visual color cmprsn meths JACKELYN RINE Start: 09-28-2018 INSERT PERIPHERAL IV JACKELYN RINE Start: 09-25-2018 Us abdominal real time w/image limited JACKELYN RINE Start: 08-03-2018 DISCHARGE PATIENT JACKELYN RINE Start: 08-03-2018 INITIATE OXYGEN THERAPY PROTOCOL JACKELYN R INE Start: 08-03-2018 nonstress test JACKELYN RINE Start: 08-02-2018 Level iv surg pathology gross&microscopic exam JACKELYN RINE Start: 08-02-2018 INITIATE OXYGEN THERAPY PROTOCOL JACKELYN R INE Start: 08-02-2018 Blood count complete automated JACKELYN RIN E Start: 08-02-2018 Comprehensive metabolic panel JACKELYN RINE Start: 08-02-2018 Level iv surg pathology gross&microscopic exam JACKELYN RINE Start: 08-02-2018 AMBULATE PATIENT JACKELYN RINE Start: 08-02-2018 CATHETER REMOVAL JACKELYN RINE Start: 08-02-2018 ENCOURAGE DEEP BREATHING AND COUGHING JACKELYN RINE Start: 08-02-2018 FULL CODE JACKELYN RINE Start: 08-02-2018 INITIATE OXYGEN THERAPY PROTOCOL JACKELYN R INE Start: 08-02-2018 INTAKE AND OUTPUT JACKELYN RINE Start: 08-02-2018 NOTIFY PHYSICIAN (SPECIFY) JACKELYN RINE Start: 08-02-2018 PLACE INTERMITTENT PNEUMATIC COMPRESSION DEVICE JACKELYN RINE Start: 08-02-2018 STRAIGHT CATH JACKELYN RINE Start: 08-02-2018 VITAL SIGNS JACKELYN RINE Start: 08-02-2018 WOUND CARE JACKELYN RINE Start: 08-02-2018 Glucose quantitative blood xcpt reagent strip JACKELYN RINE Start: 08-02-2018 DIET GENERAL JACKELYN RINE Start: 08-02-2018 PATIENT STATUS (DIRECT) JACKELYN RINE Start: 08-02-2018 nonstress test JACKELYN RINE Start: 08-02-2018 Assay of blood/uric acid JACKELYN RINE Start: 08-02-2018 Blood count complete automated JACKELYN RIN E Start: 08-02-2018 Comprehensive metabolic panel JACKELYN RINE Start: 08-02-2018 Lactate dehydrogenase ldh JACKELYN RINE Start: 08-02-2018 TYPE AND SCREEN JACKELYN RINE Start: 08-02-2018 PLACE INTERMITTENT PNEUMATIC COMPRESSION DEVICE JACKELYN RINE Start: 08-02-2018 INSERT JUDGE CATHETER JACKELYN RINE Start: 08-02-2018 INSERT PERIPHERAL IV JACKELYN RINE Start: 08-02-2018 INTAKE AND OUTPUT JACKELYN RINE Start: 08-02-2018 NURSING COMMUNICATION JACKELYN RINE Start: 08-02-2018 VERIFY INFORMED CONSENT JACKELYN RINE Start: 08-02-2018 Drug screen class list a JACKELYN RINE Start: 08-02-2018 Urinalysis microscopic only JACKELYN RINE Start: 08-02-2018 Urnls dip stick/tablet rgnt auto w/o microscopy JACKELYN RINE Start: 08-02-2018 ASSESS HEART TONES JACKELYN RINE Start: 08-02-2018 CONTRACTION -MONITORING JACKELYN RINE Start: 08-02-2018 Gluc bld gluc mntr dev cleared fda spec home use JACEKLYN RINE Start: 08-02-2018 MONITOR HEART TONES JACKELYN RINE Start: 08-02-2018 NOTIFY PHYSICIAN (SPECIFY) JACKELYN RINE Start: 08-02-2018 VITAL SIGNS JACKELYN RINE Start: 08-02-2018 Culture bacterial quanttative colony count urine JACKELYN RINE Start: 07-22-2018 Assay of blood/uric acid JACKELYN RINE Start: 07-22-2018 Blood count complete auto&auto difrntl wbc JACKELYN RINE Start: 07-22-2018 Comprehensive metabolic panel JACKELYN RINE Start: 07-22-2018 Creatinine other source JACKELYN RINE Start: 07-22-2018 Protein total xcpt refractometry urine JACKELYN RINE Start: 07-21-2018 DISCHARGE PATIENT JACKELYN RINE Start: 07-21-2018 Blood count complete auto&auto difrntl wbc JACKELYN RINE Start: 07-21-2018 Comprehensive metabolic panel JACKELYN RINE Start: 07-21-2018 INSERT PERIPHERAL IV JACKELYN RINE Start: 07-21-2018 ASSESS HEART TONES JACKELYN RINE Start: 07-21-2018 CONTRACTION -MONITORING JACKELYN RINE Start: 07-21-2018 DIET CLEAR LIQUID JACKELYN RINE Start: 07-21-2018 nonstress test JACKELYN RINE Start: 07-21-2018 FULL CODE JACKELYN RINE Start: 07-21-2018 Gluc bld gluc mntr dev cleared fda spec home use JACKELYN RINE Start: 07-21-2018 MONITOR HEART TONES JACKELYN RINE Start: 07-21-2018 NOTIFY PHYSICIAN (SPECIFY) JACKELYN RINE Start: 07-21-2018 PATIENT STATUS (DIRECT) JACKELYN RINE Start: 07-21-2018 VITAL SIGNS JACKELYN RINE Start: 07-21-2018 Culture bacterial quanttative colony count urine JACKELYN RINE Start: 07-21-2018 Urinalysis microscopic only JACKELYN RINE Start: 07-21-2018 Urnls dip stick/tablet rgnt auto w/o microscopy JACKELYN RINE Start: 07-19-2018 DISCHARGE PATIENT JACKELYN RINE Start: 07-19-2018 Us preg uterus real time w/image dcmtn transvag JACKELYN RINE Start: 07-19-2018 Assay of blood/uric acid JACKELYN RINE Start: 07-19-2018 Blood count complete auto&auto difrntl wbc JACKELYN RINE Start: 07-19-2018 Comprehensive metabolic panel JACKELYN RINE Start: 07-19-2018 Fibrinogen activity JACKELYN RINE Start: 07-19-2018 Prothrombin time JACKELYN RINE Start: 07-19-2018 Thromboplastin time partial plasma/whole blood JACKELYN RINE Start: 07-19-2018 biophysical profile w/o non-stress testing JACKELYN RINE Start: 07-19-2018 ASSESS HEART TONES JACKELYN RINE Start: 07-19-2018 CONTRACTION -MONITORING JACKELYN RINE Start: 07-19-2018 DIET NPO, NOW JACKELYN RINE Start: 07-19-2018 FULL CODE JACKELYN RINE Start: 07-19-2018 MONITOR HEART TONES JACKELYN RINE Start: 07-19-2018 NOTIFY PHYSICIAN (SPECIFY) JACKELYN RINE Start: 07-19-2018 VITAL SIGNS JACKELYN RINE Start: 07-19-2018 Culture bacterial quanttative colony count urine JACKELYN RINE Start: 07-19-2018 Protein total xcpt refractometry urine JACKELYN RINE Start: 07-19-2018 Urinalysis microscopic only JACKELYN RINE Start: 07-19-2018 Urnls dip stick/tablet rgnt auto w/o microscopy JACKELYN RINE Start: 07-19-2018 Gluc bld gluc mntr dev cleared fda spec home use JACKELYN RINE Start: 06-27-2018 Glucose tolerance test gtt 3 specimens JACKELYN RINE Start: 06-12-2018 Culture bacterial quanttative colony count urine JACKELYN RINE Start: 06-12-2018 DISCHARGE PATIENT JACKELYN RINE Start: 06-12-2018 DIET GENERAL JACKELYN RINE Start: 06-12-2018 Us preg uterus > 1st trimester abdl ea gestatio JACKELYN RINE Start: 06-12-2018 Us preg uterus after 1st trimest 1/1st gestation JACKELYN RINE Start: 06-12-2018 Us preg uterus real time w/image dcmtn transvag JACKELYN RINE Start: 06-12-2018 Blood count complete auto&auto difrntl wbc JACKELYN RINE Start: 06-12-2018 Comprehensive metabolic panel JACKELYN RINE Start: 06-12-2018 Urnls dip stick/tablet reagent auto microscopy JACKELYN RINE Start: 05-18-2018 DISCHARGE PATIENT JACKELYN RINE Start: 05-18-2018 Us preg uterus > 1st trimester abdl ea gestatio JACKELYN RINE Start: 05-18-2018 Us preg uterus after 1st trimest 1 gestation JACKELYN RINE Start: 05-18-2018 Us preg uterus real time w/image dcmtn transvag JACKELYN RINE Start: 05-18-2018 Urinalysis microscopic only JACKELYN RINE Start: 05-18-2018 Urnls dip stick/tablet rgnt auto w/o microscopy JACKELYN RINE Start: 05-18-2018 ASSESS HEART TONES JACKELYN RINE Start: 05-18-2018 CONTRACTION -MONITORING JACKELYN RINE Start: 05-18-2018 DIET GENERAL JACKELYN RINE Start: 05-18-2018 FULL CODE JACKELYN RINE Start: 05-18-2018 Gluc bld gluc mntr dev cleared fda spec home use JACKELYN RINE Start: 05-18-2018 NOTIFY PHYSICIAN (SPECIFY) JACKELYN RINE Start: 05-18-2018 VITAL SIGNS JACKELYN RINE Start: 04-07-2018 Urinalysis microscopic only JACKELYN RINE Start: 04-07-2018 Urnls dip stick/tablet rgnt auto w/o microscopy JACKELYN RINE Start: 04-07-2018 NEBULIZER TX INTERMITTENT JACKELYN RINE Start: 04-07-2018 NEBULIZER TX INTERMITTENT JACKELYN RINE Start: 04-07-2018 Radiologic exam chest 2 views JACKELYN RINE Start: 04-07-2018 Assay of troponin quantitative JACKELYN RIN E Start: 04-07-2018 Blood count complete auto&auto difrntl wbc JACKELYN RINE Start: 04-07-2018 Comprehensive metabolic panel JACKELYN RINE Start: 04-07-2018 Ecg routine ecg w/least 12 lds w/i&r JACKELYN RINE Start: 02-02-2018 PROFILE I JACKELYN RINE Start: 02-02-2018 TYPE AND SCREEN JACKELYN RINE Start: 02-02-2018 Hemoglobin glycosylated a1c JACKELYN RINE Start: 02-02-2018 HEPATITIS C ANTIBODY JACKELYN RINE Start: 02-02-2018 HIV SCREEN JACKELYN RINE Start: 02-02-2018 C.TRACHOMATIS N.GONORRHOEAE DNA, URINE JACKELYN RINE Start: 02-02-2018 URINE CULTURE CLEAN CATCH JACKELYN RINE Start: 02-02-2018 URINE DRUG SCREEN, COMPREHENSIVE JACKELYN R INE Start: 01-16-2018 Gonadotropin chorionic quantitative JACKELYN RINE Start: 01-16-2018 PROGESTERONE JACKELYN RINE Start: 01-11-2018 Gonadotropin chorionic quantitative JACKELYN RINE Start: 01-09-2018 Gonadotropin chorionic quantitative JACKELYN RINE Start: 01-02-2018 PROGESTERONE JACKELYN RINE Start: 12-16-2017 ESTRADIOL JACKELYN RINE Start: 12-06-2017 ESTRADIOL JACKELYN RINE Start: 12-07-2016 Microscopic observation [Identifier] in Cervix by Cyto stain Brandon Juares DO Work Phone: Appendectomy [facility] section Cleo Mayra Cholecystectomy Cleo Mayra Gastric sleeve Cleo Mayra Parotidectomy Cleo Mayra SARS-CoV-2, Influenza & RSV (PCR) BLASTER HELPER-C Abdullahi Selby Work Phone: SARS-CoV-2, Influenza & RSV (PCR) BLASTER HELPER-C Abdullahi Selby Work Phone: SARS-CoV-2, Influenza & RSV (PCR) BLASTER HELPER-C Abdullahi Selby Work Phone: Plan of Treatment Date Care Activity Detail Author Start: 02-08-2024 End: 02-08-2024 Patient encounter procedure 02/08/2024 2:30 PM EST Office Visit [facility] [address] [place] [phone] Brandon Juares DO [address] [place] [address] [facility] Start: 01-23-2024 End: 11-08-2024 25-hydroxyvitamin D3 [Mass/volume] in Serum or Plasma Vitamin D 25 hydroxy Total Lab Routine Status post partial thyroidectomy (CMS/HCC) Expected: 01/23/2024 (Approximate), Expires: 11/08/2024 [facility] Comment on above: Expected: 01/23/2024 (Approximate), Expires: 11/08/2024 Start: 01-23-2024 End: 11-08-2024 Calcium [Mass/volume] in Serum or Plasma Calcium Lab Routine Status post partial thyroidectomy (CMS/HCC) Expected: 01/23/2024 (Approximate), Expires: 11/08/2024 [facility] Comment on above: Expected: 01/23/2024 (Approximate), Expires: 11/08/2024 Start: 01-23-2024 End: 11-08-2024 Parathyrin.intact [Mass/volume] in Serum or Plasma PTH, intact Lab Routine Status post partial thyroidectomy (CMS/HCC) Expected: 01/23/2024 (Approximate), Expires: 11/08/2024 [facility] Comment on above: Expected: 01/23/2024 (Approximate), Expires: 11/08/2024 Start: 01-23-2024 End: 11-08-2024 Thyrotropin [Units/volume] in Serum or Plasma [facility] Work Phone: Comment on above: Expected: 01/23/2024 (Approximate), Expires: 11/08/2024 Start: 01-23-2024 End: 11-08-2024 Triiodothyronine (T3) [Mass/volume] in Serum or Plasma T3 Lab Routine Status post partial thyroidectomy (CMS/HCC) Expected: 01/23/2024 (Approximate), Expires: 11/08/2024 [facility] Comment on above: Expected: 01/23/2024 (Approximate), Expires: 11/08/2024 Start: 11-09-2023 End: 11-09-2023 Patient encounter procedure [facility] Comment on above: Arrived Start: 10-24-2023 End: 10-11-2024 25-hydroxyvitamin D3 [Mass/volume] in Serum or Plasma Vitamin D 25 hydroxy Total Lab Routine Thyroid mass (CMS/HCC) Expected: 10/24/2023 (Approximate), Expires: 10/11/2024 [facility] Comment on above: Expected: 10/24/2023 (Approximate), Expires: 10/11/2024 Start: 10-24-2023 End: 10-11-2024 Calcium [Mass/volume] in Serum or Plasma Calcium Lab Routine Thyroid mass ([facility]/HCC) Expected: 10/24/2023 (Approximate), Expires: 10/11/2024 [facility] Comment on above: Expected: 10/24/2023 (Approximate), Expires: 10/11/2024 Start: 10-24-2023 End: 10-11-2024 Parathyrin.intact [Mass/volume] in Serum or Plasma PTH, intact Lab Routine Thyroid mass ([facility]/HCC) Expected: 10/24/2023 (Approximate), Expires: 10/11/2024 [facility] Comment on above: Expected: 10/24/2023 (Approximate), Expires: 10/11/2024 Start: 10-24-2023 End: 10-11-2024 Thyrotropin [Units/volume] in Serum or Plasma [facility] Work Phone: Comment on above: Expected: 10/24/2023 (Approximate), Expires: 10/11/2024 Start: 10-24-2023 End: 10-11-2024 Triiodothyronine (T3) [Mass/volume] in Serum or Plasma T3 Lab Routine Thyroid mass ([facility]) Expected: 10/24/2023 (Approximate), Expires: 10/11/2024 [facility] Comment on above: Expected: 10/24/2023 (Approximate), Expires: 10/11/2024 Start: 10-23-2023 Influenza vaccination Influenza Vacc ine (#1) [facility] Start: 10-12-2023 End: 10-12-2023 Patient encounter procedure 10/12/2023 3:15 PM EDT Office Visit [facility] [address] [place] [phone] Brandon Juares, DO [address] [place] [address] Arrived [facility] Comment on above: Arrived Start: 12-28-2021 Blood chemistry [facility] Start: 12-28-2021 End: 12-28-2021 [facility] Start: 12-27-2021 Microbial culture of sputum [facility] Start: 12-27-2021 Hospital admission [facility] Start: 12-27-2021 [facility] Start: 11-18-2021 Hospital admission [facility] Start: 11-18-2021 Plain chest X-ray XR chest 1V portab le [facility] Start: 11-18-2021 XR Chest Single view [facility] Start: 10-22-2021 Influenza vaccination INFLUENZA (#1) [facility] Start: 02-21-2021 DEPRESSION ASSESSMENT DEPRESSION ASS ESSMENT [facility] Start: 05-28-2020 COVID-19 VACCINE (3 - Booster for Pfizer series) COVID-19 VACCINE (3 - Booster for Pfizer series) [facility] Start: 12-08-2019 Screening for malign ant neoplasm of cervix [facility] Start: 2014 HPV TESTING HPV TESTING [facility] Start: 2014 Screening for malign ant neoplasm of cervix HPV/Cotest [facility] Start: 2005 PAP TESTING PAP TESTING [facility] Start: 08-29-2003 Urine microalbumin profile DTAP,TDAP,TD (1 - Tdap) [facility] Start: 2002 ANNUAL PCP TEAM 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 ASSISTANT YASEMIN DISEASE VISIT ANNUAL PCP TEAM CHRONIC DISEASE VISIT [facility] Start: 2002 HEPATITIS C SCREENING HEPATITIS C SC FRANCOISE [facility] Start: 2002 HIV SCREENING HIV [facility]CRE[facility] Start: 2002 SPIROMETRY SPIROMETRY [facility] Start: 1996 Adult depression screening assessment DEPRESSION SCREENING [facility] Start: 1990 PNEUMOCOCCAL (1 - PCV) PNEUMOCOCCAL (1 - PCV) [facility] Start: 02-28-1985 COVID-19 VACCINE (#1) COVID-19 VACCI NE (#1) [facility] Start: 1984 HEPATITIS B (1 of 3 - 3-dose series) HEPATITIS B (1 of 3 - 3-dose series) [facility] Patient Education Viral Syndrome (DC) [facility] Work Phone: Patient referral [facility] Phone: [facility] [facility] Immunizations Immunization Date Immunization Notes Care Provider Mary leija 04-02-2020 COVID-19 mRNA, Comirnaty (Pfizer) BLASTER HELPER-C Abdullahi Selby Work Phone: [facility] 03-12-2020 COVID-19 mRNA, Comirnaty (Pfizer) BLASTER HELPER-Jase Selby Work Phone: [facility] Payers Date Payer Category Payer Self-pay [id number] 2023 Private Health Insurance MARGARET MCADAMS [id number] 2023-Present [address] [place] [id number] 2023 Private Health Insurance [id number] 2022 Unknown 2022 Unknown [id number] 2019 Medicaid [place] [employer] [place] [employer] [id number] 2019-Present [phone] [address] [place] [address] Medicaid [id number] 2016 Unknown [id number] 1984 Unknown [id number] 2.16.840.1.597667.3.579.2.1 73 1984 Unknown [id number] 2.16.840.1.634209.3.579.2.1 73 1984 Unknown [id number] 2.16.840.1.638080.3.579.2.1 73 1984 Unknown [id number] 2.16.840.1.715593.3.579.2.1 73 1984 Unknown [id number] 2.16.840.1.007644.3.579.2.1 73 1984 Unknown [id number] 2.16.840.1.992865.3.579.2.1 73 1984 Unknown [id number] 2.16.840.1.750505.3.579.2.1 73 1984 Unknown [id number] 2.16.840.1.121249.3.579.2.1 73 1984 Unknown [id number] 2.16.840.1.915772.3.579.2.1 73 1984 Unknown [id number] 2.16.840.1.057763.3.579.2.1 73 1984 Unknown [id number] 2.16.840.1.838689.3.579.2.1 73 1984 Unknown [id number] 2.16.840.1.043290.3.579.2.1 73 1984 Unknown [id number] 2.16.840.1.279429.3.579.2.1 73 1984 Unknown [id number] 2.16.840.1.325526.3.579.2.1 73 1984 Unknown [id number] 2.16.840.1.382591.3.579.2.1 1984 Unknown [id number] 2.16.840.1.214577.3.579.2.1 73 1984 Unknown [id number] 2.16.840.1.141383.3.579.2.1 73 1984 Unknown [id number] 2.16.840.1.589668.3.579.2.1 73 1984 Unknown [id number] 2.16.840.1.422784.3.579.2.5 93 1984 Unknown [id number] 2.16.840.1.331897.3.579.2.7 27 1984 Unknown [id number] 2.16.840.1.685067.3.579.2.7 27 1984 Unknown [id number] 2.16.840.1.522033.3.579.2.7 1984 Unknown [id number] 2.16.840.1.953899.3.579.2.7 1984 Unknown [id number] 2.16.840.1.491196.3.579.2.7 1984 Unknown [id number] 2.16.840.1.343811.3.579.2.7 1984 Unknown [id number] 2.16.840.1.547607.3.579.2.7 1984 Unknown [id number] 2.16.840.1.812566.3.579.2.7 1984 Unknown [id number] 2.16.840.1.538870.3.579.2.7 1984 Unknown [id number] 2.16.840.1.738081.3.579.2.7 1984 Unknown [id number] 2.16.840.1.456338.3.579.2.7 1984 Unknown [id number] 2.16.840.1.661154.3.579.2.7 1984 Unknown [id number] 2.16.840.1.618284.3.579.2.7 1984 Unknown [id number] 2.16.840.1.751049.3.579.2.7 1984 Unknown [id number] 2.16.840.1.842754.3.579.2.7 1984 Unknown [id number] 2.16.840.1.383536.3.579.2.7 1984 Unknown [id number] 2.16.840.1.109036.3.579.2.7 1984 Unknown [id number] 2.16.840.1.716658.3.579.2.7 27 1984 Unknown [id number] 2.16.840.1.893933.3.579.2.7 27 1984 Unknown [id number] 2.16.840.1.125658.3.579.2.7 27 1984 Unknown [id number] 2.16.840.1.258326.3.579.2.1 259 1984 Unknown [id number] 2.16.840.1.115268.3.579.2.1 259 1984 Unknown [id number] 2.16.840.1.493774.3.579.2.1 259 1984 Unknown [id number] 2.16.840.1.509849.3.579.2.1 259 1984 Unknown [id number] 2.16.840.1.211765.3.579.2.1 259 1984 Unknown [id number] 2.16.840.1.892622.3.579.2.1 259 1984 Unknown [id number] 2.16.840.1.269354.3.579.2.1 259 1984 Unknown [id number] 2.16.840.1.960046.3.579.2.7 27 1959 Unknown [id number] 2.16.840.1.268887.19 Unknown [id number] Unknown [id number] 2.16.840.1.426304.3.579.2.5 31 Unknown [id number] 2.16.840.1.897946.3.579.2.5 31 Unknown [id number] 2.16.840.1.999424.3.579.2.5 31 Social History Date Type Detail Facility Unknown if ever smoked [facility] Other Start: 03-17-2023 End: 10-12-2023 Sex Assigned At [facility] Start: 10-02-2021 End: 07-17-2022 Tobacco smoking status NHIS Never smoked tobacco [facility] Start: 10-02-2021 End: 07-17-2022 Tobacco use and exposure Smokeless tobacco non-user [facility] Start: 10-02-2021 End: 12-10-2021 Alcohol intake Lifetime non-drinker (finding) [facility] Start: 1985 Sex Assigned At Female [facility] Start: 09-18-2021 End: 11-30-2021 Exposure to SARS-CoV-2 (event) Not sure [facility] Work Phone: Tobacco smoking status Never [facility] Tobacco [facility] Comment on above: denies Tobacco smoking status No Smoking Status Entered [facility] Start: 10-12-2023 End: 11-09-2023 Alcoholic beverage intake Ex-drinker (finding) [facility] Start: 03-17-2023 End: 10-12-2023 History of Social function [facility] Start: 08-31-2022 Alcohol Comment 2 cans diet pepsi NO [facility] Start: 1985 Sex assigned at Not on file [facility] NEGATED: Highlighted rowStart: NINF History of tobacco use Passive smoker [facility] Medical Equipment Procedure Code Equipment Code Equipment Origin al Text Equipment Identifier Dates [place] [id number] X 5 MM Start: 05-15-2020 Goals Date Patient Goal Desired Activity /State Functional Status Date Assessment Result Facility 09-21-2023 Functional Status N/A [facility] 09-05-2023 Functional Status N/A [facility] 09-01-2023 Functional Status N/A [facility] 08-03-2023 Functional Status N/A [facility] 12-28-2021 Functional status Patient at Baseline [facility] Work Phone: 11-18-2021 Functional status Patient at Baseline [facility] Work Phone: Mental Status Date Assessment Result Facility 12-28-2021 Cognitive function Cognitive Sta tus Patient at Baseline [facility] Work Phone: 11-18-2021 Cognitive function Cognitive Sta tus Patient at Baseline [facility] Work Phone: Clinical Notes 11-13-2020 to 11-09-2023 Brandon Juares DO - 11/09/2023 2:30 PM EDTBenkacy Amanda DO Mor - 10/12/2023 3:15 PM EDT Note Date & Type Note Facility 11-09-2023 History of Present illness Narrative HPI Patient presents today status post right hemithyroidectomy for benign disease about a month ago. Recent lab work is within normal limits. She is doing fine. She does have an elevated PTH, most recently 97. That is a little lower than it was preoperatively. The time of surgery I really did not see an enlarged parathyroid gland. Relevant postoperative physical examination Incision settling down nicely. No palpable abnormality neck Assessment/plan Morro was seen today for post-op. Diagnoses and all orders for this visit: Status post partial thyroidectomy ([facility]) (Primary) Comments: I will see the patient back in 3 months with lab work including PTH calcium and vitamin-D Orders: - TSH; Future - T3; Future - T4; Future - PTH, intact; Future - Calcium; Future - Vitamin D 25 hydroxy Total; Future - TSH - T3 - T4 - PTH, intact - Calcium - Vitamin D 25 hydroxy Total Other hyperparathyroidism ([facility]) Comments: See above documented in this encounter [facility] 10-12-2023 History of Present illness Narrative HPI Patient presents today 1 week postop right hemithyroidectomy. Final pathology which was sent out for expert opinion is benign and I made her aware that. Preoperatively her PTH was elevated. The 2 parathyroid glands in the right side were mildly enlarged but her calcium was normal and her PTH was only 19. She probably has her increase PTH secondary to vitamin-D deficiency and I made her aware that. I will prescribe high-dose vitamin-D. She is doing well. Relevant postoperative physical examination Neck incision intact, no evidence of hematoma or seroma. Voice is normal. Assessment/plan Morro was seen today for post-op. Diagnoses and all orders for this visit: Status post partial thyroidectomy (CMS/HCC) (Primary) Comments: Patient given postoperative wound instructions, I will see her back in 1 month with lab work Thyroid mass (CMS/HCC) Comments: See below Orders: - T4; Future - T3; Future - TSH; Future - PTH, intact; Future - Calcium; Future - Vitamin D 25 hydroxy Total; Future - T4 - T3 - TSH - PTH, intact - Calcium - Vitamin D 25 hydroxy Total Low vitamin D level Comments: High-dose vitamin-D for 3 months. documented in this encounter [facility] 09-05-2023 Hospital Discharge instructions Patient Education 09/05/2023 13:52:58 Endoscopy, Care After Procedure [facility] [place] Endoscopy Care After Procedure Please read the instructions outlined below and refer to this sheet in the next few weeks. These discharge instructions provide you with general information on caring for yourself after you leave the hospital. Your doctor may also give you specific instructions. While your treatment has been planned according to the most current medical practices available, unavoidable complications occasionally occur. If you have any problems or questions after discharge, please call your doctor. ACTIVITY You may resume your regular activity but move at a slower pace for the next 24 hours. Take frequent rest periods for the next 24 hours. Walking will help expel (get rid of) the air and reduce the bloated feeling in your abdomen. No driving for 24 hours (because of the anesthesia (medicine) used during the test). You may shower. Do not sign any important legal documents or operate any machinery for 24 hours (because of the anesthesia used during the test). NUTRITION Drink plenty of fluids. You may resume your normal diet. Begin with a light meal and progress to your normal diet. Avoid alcoholic beverages for 24 hours or as instructed by your caregiver. MEDICATIONS You may resume your normal medications unless your caregiver tells you otherwise. WHAT YOU CAN EXPECT TODAY You may experience abdominal discomfort such as a feeling of fullness or gas pains. FOLLOW-UP Your doctor will discuss the results of your test with you. SEEK IMMEDIATE MEDICAL ATTENTION IF ANY OF THE FOLLOWING OCCUR: Excessive nausea (feeling sick to your stomach) and/or vomiting. Severe abdominal pain and distention (swelling). Trouble swallowing. Temperature over 100 F (37.8 C). Rectal bleeding or vomiting of blood. Document Released: 09/21/2004 Document Re-Released: 08/01/2006 [facility] Patient Information 2010 [employer]. 09/05/2023 13:52:53 Hemorrhoids, [id number]-[id number] Hemorrhoids Hemorrhoids are swollen veins that may develop: In the butt (rectum). These are called internal hemorrhoids. Around the opening of the butt (anus). These are called external hemorrhoids. Hemorrhoids can cause pain, itching, or bleeding. Most of the time, they do not cause serious problems. They usually get better with diet changes, lifestyle changes, and other home treatments. What are the causes? This condition may be caused by: Having trouble pooping (constipation). Pushing hard (straining) to poop. Watery poop (diarrhea). . Being very overweight (obese). Sitting for long periods of time. Heavy lifting or other activity that causes you to strain. Anal sex. Riding a bike for a long period of time. What are the signs or symptoms? Symptoms of this condition include: Pain. Itching or soreness in the butt. Bleeding from the butt. Leaking poop. Swelling in the area. One or more lumps around the opening of your butt. How is this diagnosed? A doctor can often diagnose this condition by looking at the affected area. The doctor may also: Do an exam that involves feeling the area with a gloved hand (digital rectal exam). Examine the area inside your butt using a small tube (anoscope). Order blood tests. This may be done if you have lost a lot of blood. Have you get a test that involves looking inside the colon using a flexible tube with a camera on the end (sigmoidoscopy or colonoscopy). How is this treated? This condition can usually be treated at home. Your doctor may tell you to change what you eat, make lifestyle changes, or try home treatments. If these do not help, procedures can be done to remove the hemorrhoids or make them smaller. These may involve: Placing rubber bands at the base of the hemorrhoids to cut off their blood supply. Injecting medicine into the hemorrhoids to shrink them. Shining a type of light energy onto the hemorrhoids to cause them to fall off. Doing surgery to remove the hemorrhoids or cut off their blood supply. Follow these instructions at home: Eating and drinking Eat foods that have a lot of fiber in them. These include whole grains, beans, nuts, fruits, and vegetables. Ask your doctor about taking products that have added fiber (fibersupplements). Reduce the amount of fat in your diet. You can do this by: ?Eating low-fat dairy products. ?Eating less red meat. ?Avoiding processed foods. Drink enough fluid to keep your pee (urine) pale yellow. Managing pain and swelling Take a warm-water bath (sitz bath) for 20 minutes to ease pain. Do this 3 4 times a day. You may do this in a bathtub or using a portable sitz bath that fits over the toilet. If told, put ice on the painful area. It may be helpful to use ice between your warm baths. ?Put ice in a plastic bag. ?Place a towel between your skin and the bag. ?Leave the ice on for 20 minutes, 2 3 times a day. General instructions Take zeil-dmr-datrycw and prescription medicines only as told by your doctor. ?Medicated creams and medicines may be used as told. Exercise often. Ask your doctor how much and what kind of exercise is best for you. Go to the bathroom when you have the urge to poop. Do not wait. Avoid pushing too hard when you poop. Keep your butt dry and clean. Use wet toilet paper or moist towelettes after pooping. Do not sit on the toilet for a long time. Keep all follow-up visits as told by your doctor. This is important. Contact a doctor if you: Have pain and swelling that do not get better with treatment or medicine. Have trouble pooping. Cannot poop. Have pain or swelling outside the area of the hemorrhoids. Get help right away if you have: Bleeding that will not stop. Summary Hemorrhoids are swollen veins in the butt or around the opening of the butt. They can cause pain, itching, or bleeding. Eat foods that have a lot of fiber in them. These include whole grains, beans, nuts, fruits, and vegetables. Take a warm-water bath (sitz bath) for 20 minutes to ease pain. Do this 3 4 times a day. This information is not intended to replace advice given to you by your health care provider. Make sure you discuss any questions you have with your health care provider. Document Revised: 08/19/2021 Document Reviewed: 08/19/2021 [employer] Patient Education 2022 [employer]. 09/05/2023 13:52:50 Colonoscopy, Care After Surgery [facility] (CUSTOM) Colonoscopy Care After Surgery Please read the instructions outlined below and refer to this sheet in the next few weeks. These discharge instructions provide you with general information on caring for yourself after you leave the hospital. Your doctor may also give you specific instructions. While your treatment has been planned according to the most current medical practices available, unavoidable complications occasionally occur. If you have any problems or questions after discharge, please call your doctor. ACTIVITY You may resume your regular activity, but move at a slower pace for the next 24 hours. Take frequent rest periods for the next 24 hours. Walking will help get rid of the air and reduce the bloated feeling in your abdomen (belly). No driving for 24 hours (because of the anesthesia (medicine) used during the test). You may shower. Do not sign any important legal documents or operate any machinery for 24 hours (because of the anesthesia used during the test). NUTRITION Drink plenty of fluids. You may resume your normal diet as instructed by your doctor. Begin with a light meal and progress to your normal diet. Heavy or fried foods are harder to digest and may make you feel nauseated (sick to your stomach). Avoid alcoholic beverages for 24 hours or as instructed. MEDICATIONS You may resume your normal medications unless your doctor tells you otherwise. WHAT YOU CAN EXPECT TODAY Some feelings of bloating in the abdomen. Passage of more gas than usual. Spotting of blood in your stool or on the toilet paper. FOLLOW-UP Your doctor will discuss the results of your test with you. SEEK IMMEDIATE MEDICAL ATTENTION IF: There is more than a spotting of blood in your stool. There is abdominal distention (your abdomen is swollen). There is vomiting. You have a temperature over 101.5 F. There is abdominal pain or discomfort that is severe or gets worse throughout the day. Follow Up Care 09/01/2023 14:18:59 With:Vinay INGRAM, TA Baker, [facility] Address: When: Unknown Comments:Call for any problems. The office will reach out in about one week from procedure date. [facility] 09-05-2023 Note Progress Note-Physic ez Patient: MORRO MALONEY Age: 38 years Sex: Female : 1985 Associated Diagnoses: None Author: Arden Arambula Jr., DO Postoperative Information Postoperative disposition: Postoperative disposition: Home. Optimetrix number: Optimetrix number [id number]. Anesthetic utilized: General. Physical Examination Vital Signs 09/05/2023 13:50 EDT Heart Rate Monitored 87 bpm Respiratory Rate Monitored 15 br/min Systolic Blood Pressure 142 mmHg HI Diastolic Blood Pressure 60 mmHg Mean Arterial Pressure, Cuff 87 mmHg SpO2 98 % 09/05/2023 13:45 EDT Heart Rate Monitored 73 bpm Respiratory Rate Monitored 18 br/min Systolic Blood Pressure 126 mmHg Diastolic Blood Pressure 73 mmHg Mean Arterial Pressure, Cuff 91 mmHg SpO2 98 % 09/05/2023 13:40 EDT Heart Rate Monitored 90 bpm Respiratory Rate Monitored 16 br/min Systolic Blood Pressure 125 mmHg Diastolic Blood Pressure 67 mmHg Mean Arterial Pressure, Cuff 86 mmHg SpO2 97 % 09/05/2023 13:35 EDT Temperature Temporal Artery 36.6 DegC Heart Rate Monitored 81 bpm Respiratory Rate Monitored 15 br/min Systolic Blood Pressure 111 mmHg Diastolic Blood Pressure 59 mmHg Mean Arterial Pressure, Cuff 76 mmHg SpO2 95 % Pain Assessment: Controlled. General: Awake, Alert, Appropriate. Respiratory: Adequate air exchange, Non-labored. Cardiovascular: Stable, Normal peripheral perfusion. Neurological: Neurologic exam at baseline. No changes.. Assessment Anesthetic outcome No anesthetic complications noted. No nausea/vomiting. Review / Management Condition: Stable. Plan Transfer/Discharge: Transfer/Discharge Discharge when meets criteria ( From PACU to Ambulatory Surgery Unit, and To home ). [facility] Comment on above: Result Comment: Elec tronically Signed By: Arden Arambula Jr., DO\.br\Date and Time Signed: 09/05/23 14:03 EDT 09-05-2023 Evaluation + Plan note Extrac maria luisa from: Title:ANES Post-operative Note - General Author: Arden Arambula Jr., DO Date:09/05/23 Plan Transfer/Discharge: Transfer/Discharge Discharge when meets criteria ( From PACU to Ambulatory Surgery Unit, and To home ). Extracted from: Title:ANES Pre-operative Note - Adult Author:Coy segura Jr. Arden BURROWS Date:09/05/23 Plan [place] [employer] (ASA) physical status classification: Class II. Anesthetic Preoperative Plan: Anesthesia General. Future Appointments Appointment Date:09/22/2023 10:15:00 AM Scheduled Provider:Stefan Mclean [place] [place] [facility] [place] Type:[facility] Follow Up Future Scheduled Tests Laboratory* CBC w/ Auto Diff 10/10/23 * CBC w/ Auto Diff 08/08/23 * CBC w/ Auto Diff 08/22/23 * Comprehensive Metabolic Panel 10/10/23 * Ferritin 10/10/23 * Folate Level 10/10/23 * Iron Level 10/10/23 * Iron Percent Saturation 10/10/23 * Transferrin 10/10/23 [facility]07-15-2024 NotePatient Education - Text Endoscopy Care After Procedure Please read the instructions outlined below and refer to this sheet in the next few weeks. These discharge instructions provide you with general information [facility] Your doctor may also give you specific instructions. While your treatment has been planned according to the most current medical practices available, unavoidable complications occasionally occur. If you have any problems or questions after discharge, please call your doctor. ACTIVITY ? You may resume your regular activity but move at a slower pace for the next 24 hours. ? Take frequent rest periods for the next 24 hours. ? Walking will help expel (get rid of) the air and reduce the bloated feeling in your abdomen. ? No driving for 24 hours (because of the anesthesia (medicine) used during the test). ? You may shower. ? Do not sign any important legal documents or operate any machinery for 24 hours (because of the anesthesia used during the test). NUTRITION ? Drink plenty of fluids. ? You may resume your normal diet. ? Begin with a light meal and progress to your normal diet. ? Avoid alcoholic beverages for 24 hours or as instructed by your caregiver. MEDICATIONS ? You may resume your normal medications unless your caregiver tells you otherwise. WHAT YOU CAN EXPECT TODAY ? You may experience abdominal discomfort such as a feeling of fullness or ?gas? pains. FOLLOW-UP ? Your doctor will discuss the results of your test with you. seek immediate medical attention if any of the following occur: ? Excessive nausea (feeling sick to your stomach) and/or vomiting. ? Severe abdominal pain and distention (swelling). ? Trouble swallowing. ? Temperature over 100 F (37.8? C). ? Rectal bleeding or vomiting of blood. Document Released: 09/21/2004 Document Re-Released: 08/01/2006 [employer]Care? Patient Information ?2009 [employer]. Colonoscopy Care After Surgery Please read the instructions outlined below and refer to this sheet in the next few weeks. These discharge instructions provide you with general information [facility] Your [facility] may also give you specific instructions. While your treatment has been planned according to the most current medical practices available, unavoidable complications occasionally occur. If you have any problems or questions after discharge, please call your doctor. ACTIVITY You may resume your regular activity, but move at a slower pace for the next 24 hours. Take frequent rest periods for the next 24 hours. Walking will help get rid of the air and reduce the bloated feeling in your abdomen (belly). No driving for 24 hours (because of the anesthesia (medicine) used during the test). You may shower. Do not sign any important legal documents or operate any machinery for 24 hours (because of the anesthesia used during the test). NUTRITION Drink plenty of fluids. You may resume your normal diet as instructed by your doctor. Begin with a light meal and progress to your normal diet. Heavy or fried foods are harder to digestand may make you feel nauseated (sick to your stomach). Avoid alcoholic beverages for 24 hours or as instructed. MEDICATIONS You may resume your normal medications unless your doctor tells you otherwise. WHAT YOU CAN EXPECT TODAY Some feelings of bloating in the abdomen. Passage of more gas than usual. Spotting of blood in your stool or on the toilet paper. FOLLOW-UP Your doctor will discuss the results of your test with you. SEEK IMMEDIATE MEDICAL ATTENTION IF: There is more than a spotting of blood in your stool. There is abdominal distention (your abdomen is swollen). There is vomiting. You have a temperature over 101.5 F. There is abdominal pain or discomfort that is severe or gets worse throughout the day. Gastroenterology Hemorrhoids Hemorrhoids are swollen veins that may develop: ? In the butt (rectum). These are called internal hemorrhoids. ? Around the opening of the butt (anus). These are called external hemorrhoids. Hemorrhoids can cause pain, itching, or bleeding. Most of the time, they do not cause serious problems. They usually get better with diet changes, lifestyle changes, and other home treatments. What are the causes? This condition may be caused by: ? Having trouble pooping (constipation). ? Pushing hard (straining) to poop. ? Watery poop (diarrhea). ? . ? Being very overweight (obese). ? Sitting for long periods of time. ? Heavy lifting or other activity that causes you to strain. ? Anal sex. ? Riding a bike for a long period of time. What are the signs or symptoms? Symptoms of this condition include: ? Pain. ? Itching or soreness in the butt. ? Bleeding from the butt. ? Leaking poop. ? Swelling in the area. ? One or more lumps around the opening o (more content not included)...[facility]07-15-2024 NoteColonoscopy Procedure Report Patient: MORRO MALONEY Age: 38 years Sex: Female : 1985 Associated Diagnoses: None Author: Stefan Mclean MD Pre-Procedure Procedure Date 09/05/2023 13:32:00 . Procedure Type: Colonoscopy. Procedure provider Performed by Stefan Mclean MD. Current history and physical Documented on chart. Appendectomy (874834906). Gastric sleeve (9104966317). Cholecystectomy (91431516). delivery ([id number]). Parotidectomy ([id number]).. Past Medical History No active or resolved past medical history items have been selected or recorded.. Family History Ulcerative colitis Father Grandparent . Procedure History Appendectomy ([id number]). Gastric sleeve (1264202053). Cholecystectomy (64230308). delivery (0978407401). Parotidectomy (407095441).. Colorectal neoplasm risk assessment Average risk. Informed Consent After discussing the rationale, risks and benefits, and alternatives to this procedure, the patient provided signed consent for the procedure. Pre-procedure diagnosis: Diagnostic: Abdominal pain. Medications (Selected) Inpatient Medications Ordered Lactated Ringers IV Susi 1000 mL 1,000 mL: 1,000 mL, IV, 100 mL/hr, Routine, Start date 09/05/23 13:01:00 EDT, 10 hour(s), Total volume (mL): 1,000, 107 kg, 2.19, m2 Sodium Chloride 0.9% IV Susi 100 mL 100 mL: 100 mL, IV, 20 mL/hr, Other (see comment), Routine, Start date 08/05/23 5:23:00 EDT, 5 hour(s), Total volume (mL): 100, 112.7 kg, 2.25, m2 Sodium Chloride 0.9% IV Susi 1000 mL 1,000 mL: 1,000 mL, IV, 20 mL/hr, Routine, Start date 09/05/23 6:46:00 EDT, 50 hour(s), Total volume (mL): 1,000, 107 kg, 2.19, m2 Prescriptions Prescribed Venofer 20 mg/mL Soln-IV: See Instructions, 500 mg IV every 2 weeks x 2 doses, # 25 mL, Refills(s) 0, 161, cm, 08/01/23 14:17:00 EDT, Height/Length Dosing, 107.3, kg, 08/01/23 14:17:00 EDT, Weight Dosing Ventolin HFA 90 mcg/inh Aerosol-Adpt: 2 puff(s), Inhalation, q4hr for wheezing, 18 gram, Refill(s) 5, [facility]/pharmacy #[id number], 161, cm, 10/18/22 14:05:00 EDT, Height/Length Dosing, 105.6, kg, 10/18/22 13:58:00 EDT, Weight Dosing folic acid 1 mg Tab: 1 mg = 1 tab(s), Oral, Daily, # 90 tab(s), Refills(s) 4, Pharmacy: [facility]/pharmacy #[id number], 161, cm, 08/15/23 11:32:00 EDT, Height/Length Dosing, 106.5, kg, 08/15/23 11:32:00 EDT, Weight Dosing Documented Medications Documented Colace: 200 mg, Oral, Daily, Constipation eszopiclone 3 mg Tab: 3 mg = 1 tab(s), Oral, Once a day (at bedtime), PRN for insomnia, Refills(s) 0 lamotrigine 200 mg Tab: 200 mg = 1 tab(s), Oral, Daily sertraline 100 mg Tab: 100 mg = 1 tab(s), Oral, Daily, Refills(s) 0, Depression ASA Classification: Class II. . Monitoring: See anesthesia record. . Procedure The procedure was performed in the hospital. See anesthesia record for sedation given during procedure. The patient was positioned starting in the left lateral decubitus position. Endoscope type usedwas a pediatric-size. The endoscope was lubricated then introduced through the anus. The scope was advanced to the terminal ileum. No difficulties encountered during the procedure. The bowel preparation quality was good and was adequate (see polyps greater than or equal to 6 millimeters). The patient tolerated the procedure well. Time to Cecum: 3 min Withdrawal time: 7 min Findings 1. Small internal hemorrhoids 2. Normal colon 3. Normal terminal ileum Images Procedure images: [id number] . Post-Procedure Complications: none. Estimated blood loss: none. Specimens: none. Devices/ implants: none left in place. Impression and Plan internal hemorrhoids Otherwise; normal colon and terminal Recommendations: Repeat colonoscopy:: In 10 years. Follow-up:: in clinic as scheduled. Diet:: Previous. Medication resumption:: Continue current medications, Avoid NSAIDs. Return to activities:: After 24 hours. Education and Follow-up: Counseled: Patient, Family. Might benefit from capsule endoscopy to assess for anemiaDayton Osteopathic HospitalComment on above:Other Comment: Missing Attachment - attachment storage system not supported [id number] Can be viewed in source system Missing Attachment - attachment storage system not supported [id number] Can be viewed in source systemMissing Attachment - attachment storage system not supported [id number] Can be viewed in source systemMissing Attachment - attachment storage system not supported [id number] Can be viewed in source [id number] NoteProgress Note-Physician Patient: MORRO MALONEY Age: 38 years Sex: Female : 1985 Associated Diagnoses: None Author: Arden Arambula Jr., DO Preoperative Information Anesthesia Preop Info NPO since midnight Anesthesia history: Patient history: No prior anesthetic problems. Informed consent: Signed by patient. Re-evaluation prior to induction: Initial evaluation reviewed: No significant change. Health Status Allergies: Allergic Reactions (Selected) No Known Allergies, Allergies (1) Active Severity Reaction No Known Allergies None Documented Current medications: (Selected) Inpatient Medications Ordered Sodium Chloride 0.9% IV Susi 100 mL 100 mL: 100 mL, IV, 20 mL/hr, Other (see comment), Routine, Start date 08/05/23 5:23:00 EDT, 5 hour(s), Total volume (mL): 100, 112.7 kg, 2.25, m2 Sodium Chloride 0.9% IV Susi 1000 mL 1,000 mL: 1,000 mL, IV, 20 mL/hr, Routine, Start date 09/05/23 6:46:00 EDT, 50 hour(s), Total volume (mL): 1,000, 107 kg, 2.19, m2 Prescriptions Prescribed Venofer 20 mg/mL Soln-IV: See Instructions, 500 mg IV every 2 weeks x 2 doses, # 25 mL, Refills(s) 0, 161, cm, 08/01/23 14:17:00 EDT, Height/Length Dosing, 107.3, kg, 08/01/23 14:17:00 EDT, Weight Dosing Ventolin HFA 90 mcg/inh Aerosol-Adpt: 2 puff(s), Inhalation, q4hr for wheezing, 18 gram, Refill(s) 5, [id number], 161, cm, 10/18/22 14:05:00 EDT, Height/Length Dosing, 105.6, kg, 10/18/22 13:58:00 EDT, Weight Dosing folic acid 1 mg Tab: 1 mg = 1 tab(s), Oral, Daily, # 90 tab(s), Refills(s) 4, Pharmacy: [facility]/pharmacy #[id number], 161, cm, 08/15/23 11:32:00 EDT, Height/Length Dosing, 106.5, kg, 08/15/23 11:32:00 EDT, Weight Dosing Documented Medications Documented Colace: 200 mg, Oral, Daily, Constipation eszopiclone 3 mg Tab: 3 mg = 1 tab(s), Oral, Once a day (at bedtime), PRN for insomnia, Refills(s) 0 lamotrigine 200 mg Tab: 200 mg = 1 tab(s), Oral, Daily sertraline 100 mg Tab: 100 mg = 1 tab(s), Oral, Daily, Refills(s) 0, Depression, Home Medications (7) Active Colace 200 mg, Oral, Daily eszopiclone 3 mg Tab 3 mg = 1 tab(s), PRN, Oral, Once a day (at bedtime) folic acid 1 mg Tab 1 mg = 1 tab(s), Oral, Daily lamotrigine 200 mg Tab 200 mg = 1 tab(s), Oral, Daily sertraline 100 mg Tab 100 mg = 1 tab(s), Oral, Daily Venofer 20 mg/mL Soln-IV See Instructions Ventolin HFA 90 mcg/inh Aerosol-Adpt 2 puff(s), PRN, Inhalation, q4hr , Medications (1) Active Scheduled: (0) Continuous: (1) Sodium Chloride 0.9% 1,000 mL 1,000 mL, IV, 20 mL/hr PRN: (0) Problem list: All Problems Asthma / SNOMED CT 072451420 / Confirmed Bloating / SNOMED CT 296840224 / Confirmed Cyst of thyroid / SNOMED CT 941318088 / Confirmed Difficulty swallowing / SNOMED CT 77314253 / Confirmed Elevated creatine kinase / SNOMED CT 8297832356 / Confirmed Elevated glucose / SNOMED CT 5456520030 / Confirmed Elevated WBCs / SNOMED CT 945617451 / Confirmed Enlarged thyroid gland / SNOMED CT 4337811 / Confirmed Fatigue / SNOMED CT 099286340 / Confirmed Iron deficiency anemia / SNOMED CT 532938258 / Confirmed Low back pain / SNOMED CT 550099584 / Confirmed Shortness of breath / SNOMED CT 830273243 / Confirmed Spondylosis / SNOMED CT 20528867 / Confirmed Thyroid nodule / SNOMED CT 211506386 / Confirmed Weight gain / SNOMED CT 29771190 / Confirmed Weight loss / SNOMED CT 714768717 / Confirmed Wellness examination / SNOMED CT 822187741 / Confirmed Histories Past Medical History: No active or resolved past medical history items have been selected or recorded. Procedure history: Appendectomy (499409090). Gastric sleeve (8543978085). Cholecystectomy (51142356). delivery (8771562088). Parotidectomy (760017054). Social History Social & Psychosocial Habits Alcohol Comment: denies - 08/03/2023 11:38 - Gabby Edward RN 09/01/2023 Risk Assessment: Denies Alcohol Use Substance Abuse Comment: denies - 08/03/2023 11:38 - Gabby Edward RN 09/01/2023 Risk Assessment: Denies Substance Abuse Tobacco 09/01/2023 Tobacco Use: Never (less than 100 in l Smokeless tobacco use: Never Concerns about tobacco use in household: No . Physical Examination Measurements from flowsheet : Measurements 09/05/2023 12:50 EDT Height/Length Measured 161 cm Height/Length Dosing 161.0 cm Weight Dosing 107.0 kg Weight Measured 107 kg Airway: Mallampati classification: II (soft palate, fauces, uvula visible). Respiratory: Lungs are clear to auscultation, Respirations are non-labored. Cardiovascular: Regular rhythm. Plan [place] [employer]hesi[employer] (ASA) physical status classification: Class II. Anesthetic Preoperative Plan: Anesthesia General.[facility] Comment on above:Result Comment: Electronically Signed By: Arden Arambula Jr., DO.ariel\Date and Time Signed: 09/05/23 13:01 [id number] Hospital Discharge instructions Follow Up Care 08/09/2023 09:01:05 With:Jose MAY, JANES Finn Address: [facility] [address] [place] [phone] When: Unknown Comments:refer to GI to consider endoscopy for iron deficiency anemia.- if none in [place], [place] [facility] [place]- send 90 day supply with 4 [facility]ills to [facility] [place], iron studies, folate in 8wksfollow-up in 8wks with [facility]06-17-2024 Evaluation + Plan note Future Scheduled Tests Laboratory* CBC w/ Auto Diff 10/10/23 * CBC w/ Auto Diff 08/08/23 * CBC w/ Auto Diff 08/22/23 * CBC w/ Auto Diff 08/29/23 * Comprehensive Metabolic Panel 10/10/23 * Ferritin 10/10/23 * Folate Level 10/10/23 * Iron Level 10/10/23 * Iron Percent Saturation 10/10/23 * Transferrin 10/10/23 [facility]06-17-2024 Evaluation + Plan note Future Scheduled Tests Laboratory* CBC w/ Auto Diff 10/10/23 * CBC w/ Auto Diff 08/08/23 * CBC w/ Auto Diff 08/22/23 * Comprehensive Metabolic Panel 10/10/23 * Ferritin 10/10/23 * Folate Level 10/10/23 * Iron Level 10/10/23 * Iron Percent Saturation 10/10/23 * Transferrin 10/10/23 [facility] 06-17-2024 Evaluation + Plan note Future Scheduled Tests Laboratory* CBC w/ Auto Diff 08/08/23 * CBC w/ Auto Diff 08/22/23 [facility] 06-12-2024 Hospital Discharge instructions Patient Education 08/03/2023 14:14:52 Iron Deficiency Anemia, Adult Iron Deficiency Anemia, Adult Iron deficiency anemia is a condition in which the concentration of red blood cells or hemoglobin in the blood is below normal because of too little iron. Hemoglobin is a substance in red blood cellsthat carries oxygen to the body's tissues. When the concentration of red blood cells or hemoglobin is too low, not enough oxygen reaches these tissues. Iron deficiency anemia is usually long-lasting, and it develops over time. It may or may not cause symptoms. It is a common type of anemia. What are the causes? This condition may be caused by: Not enough iron in the diet. Abnormal absorption in the gut. Blood loss. What increases the risk? You are more likely to develop this condition if you get menstrual periods (menstruate) or are . What are the signs or symptoms? Symptoms of this condition may include: Pale skin, lips, and nail beds. Weakness, dizziness, and getting tired easily. Shortness of breath when moving or exercising. Cold hands or feet. Mild anemia may not cause any symptoms. How is this diagnosed? This condition is diagnosed based on: Your medical history. A physical exam. Blood tests. How is this treated? This condition is treated by correcting the cause of your iron deficiency. Treatment may involve: Adding iron-rich foods to your diet. Taking iron supplements. If you are or , you may need to take extra iron because your normal diet usually does not provide the amount of iron that you need. Increasing vitamin C intake. Vitamin C helps your body absorb iron. Your health care provider may recommend that you take iron supplements along with a glass of orange juice or a vitamin C supplement. Medicines to make heavy menstrual flow balance recesser. Surgery or additional testing procedures to determine the cause of your anemia. You may need repeat blood tests to determine whether treatment is working. If the treatment does not seem to be working, you may need more tests. Follow these instructions at home: Medicines Take bpwn-iye-srgntli and prescription medicines only as told by your health care provider. This includes iron supplements and vitamins. This is important because too much iron can be harmful. ?For the best iron absorption, you should take iron supplements when your stomach is empty. If you cannot tolerate them on an empty stomach, you may need to take them with food. ?Do not drink milk or take antacids at the same time as your iron supplements. Milk and antacids may interfere with how your body absorbs iron. ?Iron supplements may turn stool (feces) a darker color and it may appear black. If you cannot tolerate taking iron supplements by mouth, talk with your health care provider about taking them through an IV or through an injection into a muscle. Eating and drinking Talk with your health care provider before changing your diet. Your provider may recommend that youeat foods that contain a lot of iron, such as: ?Liver. ?Low-fat (lean) beef. ?Breads and cereals that have iron added to them (are fortified). ?Eggs. ?Dried fruit. ?Dark green, leafy vegetables. To help your body use the iron from iron-rich foods, eat those foods at the same time as fresh fruits and vegetables that are high in vitamin C. Foods that are high in vitamin C include: ?Oranges. ?Peppers. ?Tomatoes. ?Mangoes. Managing constipation If you are taking an iron supplement, it may cause constipation. To prevent or treat constipation, you may need to: Drink enough fluid to keep your urine pale yellow. Take tlxs-gri-lrzjalc or prescription medicines. Eat foods that are high in fiber, such as beans, whole grains, and fresh fruits and vegetables. Limit foods that are high in fat and processed sugars, such as fried or sweet foods. General instructions Return to your normal activities as told by your health care provider. Ask your health care provider what activities are safe for you. Keep all follow-up visits. Contact a health care provider if: You feel nauseous or you vomit. You feel weak. You become light-headed when getting up from a sitting or lying down position. You have unexplained sweating. You develop symptoms of constipation. You have a heaviness in your chest. You have trouble breathing with physical activity. Get help right away if: You faint. If this happens, do not drive yourself to the hospital. You have an irregular or rapid heartbeat. Summary Iron deficiency anemia is a condition in which the concentration of red blood cells or hemoglobin in the blood is below normal because of too little iron. This condition is treated by correcting the cause of your iron deficiency. Take bnov-tes-nvqfcgz and prescription medicines only as told by your health care provider. This includes iron supplements and vitamins. To help your body use the iron from iron-rich foods, eat those foods at the same time as fresh fruits and vegetables that are high in vitamin C. Seek medical help if you have signs or symptoms of worsening anemia. This information is not intended to replace advice given to you by your health care provider. Make sure you discuss any questions you have with your health care provider. Document Revised: 03/17/2022 Document Reviewed: 03/17/2022 [employer] Patient Education 2022 [employer] 08/03/2023 14:14:52 Shortness of Breath, Adult Shortness of Breath, Adult Shortness of breath is when a person has trouble breathing or when a person feels like she or he ishaving trouble breathing in enough air. Shortness of breath could be a sign of a medical problem. Follow these instructions at home: Pollutants Do not use any products that contain nicotine or tobacco. These products include cigarettes, chewing tobacco, and vaping devices, such as e-cigarettes. This also includes cigars and pipes. If you need help quitting, ask your health care provider. Avoid things that can irritate your airways, including: ?Smoke. This includes campfire smoke, forest fire smoke, and secondhand smoke from tobacco products. Do not smoke or allow others to smoke in your home. ?Mold. ?Dust. ?Air pollution. ?Chemical fumes. ?Things that can give you an allergic reaction (allergens) if you have allergies. Common allergens include pollen from grasses or trees and animal dander. Keep your living space clean and free of mold and dust. General instructions Pay attention to any changes in your symptoms. Take dihu-lfm-ulflxyr and prescription medicines only as told by your health care provider. This includes oxygen therapy and inhaled medicines. Rest as needed. Return to your normal activities as told by your health care provider. Ask your health care provider what activities are safe for you. Keep all follow-up visits. This is important. Contact a health care provider if: Your condition does not improve as soon as expected. You have a hard time doing your normal activities, even after you rest. You have new symptoms. You cannot walk up stairs or exercise the way that you normally do. Get help right away if: Your shortness of breath gets worse. You have shortness of breath when you are resting. You feel light-headed or you faint. You have a cough that is not controlled with medicines. You cough up blood. You have pain with breathing. You have pain in your chest, arms, shoulders, or abdomen. You have a fever. These symptoms may be an emergency. Get help right away. Call 911. Do not wait to see if the symptoms will go away. Do not drive yourself to the hospital. Summary Shortness of breath is when a person has trouble breathing enough air. It can be a sign of a medical problem. Avoid things that irritate your lungs, such as smoking, pollution, mold, and dust. Pay attention to changes in your symptoms and contact your health care provider if you have a hard time completing daily activities because of shortness of breath. This information is not intended to replace advice given to you by your health care provider. Make sure you discuss any questions you have with your health care provider. Document Revised: 09/26/2021 Document Reviewed: 09/26/2021 [employer] Patient Education 2022 [employer] 08/03/2023 14:14:52 Anemia Anemia Anemia is a condition in which there are not enough red blood cells or hemoglobin in the blood. Hemoglobin is a substance in red blood cells that carries oxygen. When you do not have enough red blood cells or hemoglobin (are anemic), your body cannot get enoughoxygen, and your organs may not work properly. As a result, you may feel very tired or have other problems. What are the causes? Common causes of anemia include: Excessive bleeding. Anemia can be caused by excessive bleeding inside or outside the body, including bleeding from the intestines or from heavy menstrual periods in females. Poor nutrition. Long-lasting (chronic) kidney, thyroid, and liver disease. Bone marrow disorders, spleen problems, and blood disorders. Cancer and treatments for cancer. Human immunodeficiency virus (HIV) and acquired immunodeficiency syndrome (AIDS). Infections, medicines, and autoimmune disorders that destroy red blood cells. What are the signs or symptoms? Symptoms of this condition include: Minor weakness. Dizziness. Headache, or difficulties concentrating and sleeping. Heartbeats that feel irregular or faster than normal (palpitations). Shortness of breath, especially with exercise. Pale skin, lips, and nails, or cold hands and feet. Upset stomach (indigestion) and nausea. Symptoms may occur suddenly or develop slowly. If your anemia is mild, you may not have symptoms. How is this diagnosed? This condition is diagnosed based on blood tests, your medical history, and a physical exam. In some cases, a test may be needed in which cells are removed from the soft tissue inside of a bone and looked at under a microscope (bone marrow biopsy). Your health care provider may also check your stool (feces) for blood and may do more testing to look for the cause of your bleeding. Other tests may include: Imaging tests, such as a CT scan or MRI. A procedure to see inside your esophagus and stomach (endoscopy). The esophagus is the part of the body that moves food from your mouth to your stomach. A procedure to see inside your colon and rectum (colonoscopy). How is this treated? Treatment for this condition depends on the cause. If you continue to lose a lot of blood, you may need to be treated at a hospital. Treatment may include: Taking supplements of iron, vitamin B12, or folic acid. Taking a hormone medicine (erythropoietin) that can help to stimulate red blood cell growth. Receiving donated blood through an IV (blood transfusion). This may be needed if you lose a lot of blood. Making changes to your diet. Having surgery to remove your spleen. Follow these instructions at home: Take [id number] and prescription medicines only as told by your health care provider. Take supplements only as told by your health care provider. Follow any diet instructions that you were given by your health care provider. Keep all follow-up visits. Your health care provider will want to recheck your blood tests. Contact a health care provider if: You develop new bleeding anywhere in the body. You are very weak. Get help right away if: You are short of breath. You have pain in your abdomen or chest. You are dizzy or feel faint. You have trouble concentrating. You have bloody stools, black stools, or tarry stools. You vomit repeatedly or you vomit up blood. These symptoms may be an emergency. Get help right away. Call 911. Do not wait to see if the symptoms will go away. Do not drive yourself to the hospital. Summary Anemia is a condition in which you do not have enough red blood cells or enough of a substance in your red blood cells that carries oxygen. Symptoms may occur suddenly or develop slowly. If your anemia is mild, you may not have symptoms. This condition is diagnosed with blood tests, a medical history, and a physical exam. Other tests may be needed. Treatment for this condition depends on the cause of the anemia. This information is not intended to replace advice given to you by your health care provider. Make sure you discuss any questions you have with your health care provider. Document Revised: 05/03/2022 Document Reviewed: 05/03/2022 [employer] Patient Education 2022 [employer] Follow Up Care 08/03/2023 10:47:32 With:José Antonio Benitez Address: [facility] [address] [place] [address]- When:08/06/2023 13:33:53 Comments:Make sure to follow-up with as discussed. Return to the emergency room if your symptoms get worse or any new symptoms. With:Cleo Hernandez Address:Unknown When:Within 3 Day(s) [facility]06-12-2024 Evaluation + Plan noteExtracted from: Title:ED Note Author:Elizabeth Moise M.D. te:08/03/23 1. Shortness of breath (R06. 02: Shortness of breath) 2. Anemia (D64.9: Anemia, unspecified) Orders: B-Type Natriuretic Peptide Basic Metabolic Panel BB Draw & Hold CBC w/ Auto Diff Continuous Pulse Oximetry ECG 12 Lead Adult ED Cardiac Monitoring eGFR Extra SST Tube Hepatic Function Panel Magnesium Level Oxygen Therapy Path. Review PT & PTT Saline Lock Insert Troponin 0 Hr. Troponin 1 Hr. XR Chest 2 Views Diagnostic Tests Pending * Path. Review 08/03/23 [facility]2023 Evaluation + Plan note Diagnostic Tests Pending * T3 Free 10/18/22 [facility]11-06-2022 History and physical note Author Nan Brand [facility] December 27, 2021 6:03pm Note Date/Time December 27, 2021 5 :46pm [facility] [address] [place] [address] Hospitalist H&P Signed Patient: Morro Maloney MR#: [id number] : 1985 Acct:[id number] Age/Sex: 36 / F Adm Date: 2 Loc: ER Room: Type: [facility] ER Attending Dr: Copies to: MYKEL HawkinsC Nan Brand MD~ HPI DATE OF EXAMINATION: 12/27/21 CHIEF COMPLAINT: Shortness of breath HISTORY OF PRESENT ILLNESS: 36 years old female with underlying history of asthma, not on any therapy, requiring intubation x1 when she was 16, presented with complaints of shortness of breath and severe wheezing with low pulse oximetry. Per patient she has been sick for couple of days due to flulike symptoms. She complained of sneezing, runny nose, some chest congestion with cough. However today she got shortness of breath associated with severe wheezing. She has beencoughing with greenish sputum production. Per patient she usually has wheezing and it is and not unusual for her through whole summer but at this time she was quite short of breath. She denied any fevers. She did have diarrhea but deniedany abdominal pain. Denied any nausea any vomiting. Denied any lower extremityswelling. Review of Systems Review of Systems Review of systems: 10 systems are reviewed and are negative apart as mentioned in H&P The patient has been seen and examined in the emergency room General -patient is awake alert oriented ?3, she did appear to be in mild distress but was able to speak in full sentences She did not appear to be lethargic. HEENT -normal oropharyngeal mucosa without any ulcers or exudates Cardiovascular -S1 plus S2, with regular rate, tachycardia, sinus rhythm on the monitor Pulmonary -wheezing and rhonchi bilaterally Gastrointestinal -abdomen is soft, nondistended, nontender, bowel sounds positive, no rigidity, no rebound Genitourinary deferred Musculoskeletal -no back tenderness, no significant joint swelling, full range of motion Neurological -no focal Skin -no significant ulcers, no rash noted Extremities - no edema in bilateral lower extremities noted Psychiatry - appropriate affect Laboratory work up, imaging studies reviewed EKG personally reviewed by me normal sinus rhythm with sinus tachycardia at 102,without acute ST-T wave changes Previous records in the computer system reviewed Chest x-ray no acute findings PMFSH Vaccinated for COVID-19?: Yes Medical History Anxiety Arthritis Asthma Bipolar disorder Hyperlipidemia Personal history of COVID-19 Polycystic ovary syndrome Sleep apnea pt. reports it's light & does not use machine Surgical History H/O gastric sleeve 06/2021 History of appendectomy History of section History of laparoscopic cholecystectomy History of parotidectomy Family History Grandparent Lung cancer Grandparent Lung cancer Father Alive and well Mother Alive and well Social History Smoking Status: Never smoker Substance Use Type: None Meds Medications and Allergies Allergies mold Allergy (Verified 12/27/21 14:32) Nasal Discharge Home Medications albuterol sulfate 90 mcg/actuation aerosol inhaler (Proventil HFA) 90 mcg inhalation DIRECTED PRN Shortness Of Breath Or Wheezing 03/31/18 [History Confirmed 12/27/21] metformin 500 mg tablet 1,500 mg PO DAILY PCOS 03/31/18 [History Confirmed 12/27/21] lurasidone 40 mg tablet (Latuda) 40 mg PO DAILY bipolar disorder 05/17/19 [History Confirmed 12/27/21] lamotrigine 200 mg tablet 200 mg PO DAILY bipolar disorder 04/11/21 [History Confirmed 12/27/21] sertraline 100 mg tablet 100 mg PO DAILY bipolar disorder 04/11/21 [History Confirmed 12/27/21] levalbuterol HCl 0.63 mg/3 mL solution for nebulization (Xopenex) 0.63 mg inhalation DIRECTED PRN wheeze 05/06/21 [History Confirmed 12/27/21] Exam Physical Exam Vital Signs: Temp Pulse Resp BP Pulse Ox O2 Del Method O2 Flow Rate 36.6 C 107 H 18 125/72 91 L Nasal Cannula 2 12/27/21 14:32 12/27/21 17:22 12/27/21 17:22 12/27/21 17:22 12/27/21 17:22 12/27/21 17:22 12/27/21 17:22 Results Lab Results Labs: Laboratory Last Values Corrected WBC 12.6 X10E3/uL (3.8-11.6) H 12/27/21 14:42 Uncorrected WBC Count 12.6 x10E3/uL (4.5-11.0) H 12/27/21 14:42 RBC 5.18 x10E6/uL (3.60-5.00) H 12/27/21 14:42 Hgb 13.7 g/dL (11.8-15.4) 12/27/21 14:42 Hct 43.3 % (34.0-46.4) 12/27/21 14:42 MCV 83.7 fl (80-100) 12/27/21 14:42 MCH 26.5 pg (24.7-34.3) 12/27/21 14:42 MCHC 31.7 g/dL (32.0-35.0) L 12/27/21 14:42 RDW 17.5 % (11.9-15.3) H 12/27/21 14:42 Plt Count 324 x10E3/uL (150-450) 12/27/21 14:42 MPV 7.7 fl (6.3-10.7) 12/27/21 14:42 Neut % (Auto) 68.0 % (.) 12/27/21 14:42 Lymph % (Auto) 23.6 % (.) 12/27/21 14:42 [place] % (Auto) 5.7 % (.) 12/27/21 14:42 Eos % (Auto) 1.9 % (.) 12/27/21 14:42 Baso % (Auto) 0.8 % (.) 12/27/21 14:42 Neut # (Auto) 8.6 x10E3/uL (1.8-7.7) H 12/27/21 14:42 Lymph # (Auto) 3.0 x10E3/uL (1.00-4.8) 12/27/21 14:42 [place] # (Auto) 0.7 x10E3/uL (0.0-0.8) 12/27/21 14:42 Eos # (Auto) 0.2 x10E3/uL (0.0-0.45) 12/27/21 14:42 Baso # (Auto) 0.1 x10E3/uL (0.0-0.2) 12/27/21 14:42 Nucleated RBC % (auto) 0.1 % (0-0.5) 12/27/21 14:42 PHA Creatinine Clear 88.19 12/27/21 14:42 Sodium 136 mmol/L (136-146) 12/27/21 14:42 Potassium 3.7 mmol/L (3.5-5.1) 12/27/21 14:54 Chloride 103 mmol/L (95-114) 12/27/21 14:42 Carbon Dioxide 18.8 mmol/L (22.0-30.0) L 12/27/21 14:42 Anion Gap mEq/L (6.0-15.0) 12/27/21 14:42 BUN 8 mg/dL (9-23) L 12/27/21 14:42 Creatinine 1.03 mg/dL (0.44-1.03) 12/27/21 14:42 Est GFR ( Amer) > 60 mL/Min 12/27/21 14:42 Est GFR (Non-Af Amer) 60 mL/Min 12/27/21 14:42 Glucose 104 mg/dL (70-100) H 12/27/21 14:42 Calcium 9.0 mg/dL (8.2-10.2) 12/27/21 14:42 Total Bilirubin 0.6 mg/dL (0.3-1.2) 12/27/21 14:54 Direct Bilirubin < 0.1 mg/dL (0.0-0.4) 12/27/21 14:54 Indirect Bilirubin TNP 12/27/21 14:54 AST 20 U/L (10-42) 12/27/21 14:54 ALT 16 U/L (10-60) 12/27/21 14:54 Alkaline Phosphatase 109 U/L (32-92) H 12/27/21 14:54 Troponin I High Sens 3 pg/mL (0-15) 12/27/21 14:42 Total Protein 6.8 gm/dL (6.1-7.9) 12/27/21 14:42 Albumin 3.9 gm/dL (3.2-5.5) 12/27/21 14:42 Globulin 2.9 gm/dL 12/27/21 14:42 Albumin/Globulin Ratio 1.3 12/27/21 14:42 SARS-CoV-2 Rap RNA(RT-PCR) Negative (Negative) 12/27/21 14:46 Microbiology Results Micro: Microbiology - Results from entire visit 12/27/21 14:46 Nasopharyngeal SARS-CoV-2, Influenza & RSV (PCR) - Final A&P - Hospitalist Assessment/Plan (1) Asthma exacerbation: Plan 1. Acute hypoxic respiratory insufficiency requiring oxygen administration due to suspected acute asthma exacerbation For now continue bronchodilators and systemic and inhaled steroids She does have leukocytosis with greenish sputum, with a sputum sample and start on azithromycin therapy 2. DVT prophylaxis Lovenox 3. Bipolar disorder, continue with home medications Documented By: Nan Brand MD 12/27/21 1742 Signed By: <Electronically signed by Nan Brand MD> 12/27/21 9633 [facility] Work Phone: 1(771) 608-347010-20-2022 History of Present illness Narrative* Meenakshi Obrien MD - 12/10/2021 11:05 AM EDT ASSESSMENT/PLAN: 1. Monocular esotropia, left eye - ICD9: 378.01, ICD10: H50.012 (primary diagnosis) 2. Diplopia - ICD9: 368.2, ICD10: H53.2 - acute onset left esotropia with diplopia for 6 months - worked up with MRI brain that was normal - POW#1 s/p [facility] - great alignment - rare diplopia. Not requiring scotch tape on lens anymore! - healing well. Mild Tenons prolapse, right eye. Follow-up in: 3 weeks I have confirmed and edited as necessary the relevant ophthalmic history, ROS, and the neuro exam findings as obtained by others. I have seen and examined this patient. I have discussed the case and the management of this patient's care with the Resident/Fellow, if applicable. I also have reviewed and agree with the assessment and plan as stated above and agree withall of its relevant components. Meenakshi Obrien MD December 10, 2021 11:05 AM [facility] Miscellaneous Notes* Telephone Encounter - Enid Tafoya - 11/27/2021 10:43 AM EDT Spoke to patient; relayed message below. Meenakshi Obrien I just heard from the head anesthesiologist that we can proceed with her surgery on Tuesday. Thanks! * Telephone Encounter - Enid Tafoya - 11/27/2021 9:49 AM EDT Morro Maloney Sung [phone] 11/26/21 Fv 11/30/21 Sx Patient is calling to see if surgery scheduled for Tuesday will need to be cancelled. Please advise Thank you. Meenakshi Obrien MD filed at 11/26/2021 9:18 AM Status: Signed ASSESSMENT/PLAN: 1. Monocular esotropia, left eye - ICD9: 378.01, ICD10: H50.012 (primary diagnosis) 2. Diplopia - ICD9: 368.2, ICD10: H53.2 - acute onset left esotropia with diplopia for 6 months - worked up with MRI brain that was normal - no incomitance or indication of CN 6 palsy - strong family history of strabismus requiring strabismus surgery - increased angle esotropia today, does sometimes alternate between eyes - Proceed with strabismus surgery - [facility]. Consent obtained. - recent asthma exacerbation. Will check with anesthesia. Follow-up in: Surgery [facility] History of Present illness Narrative* Meenakshi Obrine MD - 11/26/2021 9:16 AM EDT ASSESSMENT/PLAN: 1. Monocular esotropia, left eye - ICD9: 378.01, ICD10: H50.012 (primary diagnosis) 2. Diplopia - ICD9: 368.2, ICD10: H53.2 - acute onset left esotropia with diplopia for 6 months - worked up with MRI brain that was normal - no incomitance or indication of CN 6 palsy - strong family history of strabismus requiring strabismus surgery - increased angle esotropia today, does sometimes alternate between eyes - Proceed with strabismus surgery - [facility]. Consent obtained. - recent asthma exacerbation. Will check with anesthesia. Follow-up in: Surgery I have confirmed and edited as necessary the relevant ophthalmic history, ROS, and the neuro exam findings as obtained by others. I have seen and examined this patient. I have discussed the case and the management of this patient's care with the Resident/Fellow, if applicable. I also have reviewed and agree with the assessment and plan as stated above and agree withall of its relevant components. Meenakshi Obrien MD November 26, 2021 9:16 AM documented in this encounterT[facility]09-29-[facility] Progress note Author Jp Barba [facility] November 19, 2021 10:22pm Note Date/Time November 19, 2021 10:00am [facility] [address] [place] [address] Hospitalist Progress Note Signed Patient: Morro Maloney MR#: [id number] : 1985 Acct:[id number] Age/Sex: 36 / F Adm Date: 2 Loc: 3T Room: [address] [place] [address] Type: DIS IN Attending Dr: Jp Barba DO Copies to: ~ Date of Service: 11/19/2021 Subjective Subjective Narrative: Patient was seen and evaluated at bedside today. Sitting up in bed talking to us with nonlabored breathing. She said her breathing is much better today, and she has been able to get up and walk around her room without the need of supplementary oxygen. She is on 3 to 4 L nasal cannula with O2 sat 92 to 93%. She only uses albuterol inhaler at home, and says that she only needs it 2-3 times per week. This is her first asthma exacerbation this year. She believes the reason she had this acute asthma exacerbation was due to the high concentration of mold, which she is allergic to. No other acute complaints Per respiratory therapist, she has been refusing her breathing treatments sayingthat she has either been sleeping, or just does not feel like she needs them herself. Upon talking with the patient today later in the morning, she is insistent about needing to get home for her work. We had a lengthy discussion about the fact that she is still wheezing and requiring 4 L nasal cannula, and that sending her home today is not warranted based on her current medical condition. She said she was likely going to sign out AMA later today. Exam Physical Exam Vital Signs: Temp Pulse Resp BP Pulse Ox O2 Del Method O2 Flow Rate 98.1 F 88 18 117/73 92 L Nasal Cannula 4 11/19/21 03:26 11/19/21 08:00 11/19/21 08:00 11/19/21 08:00 11/19/21 08:00 11/19/21 08:00 11/19/21 08:00 Narrative: GEN: Pleasant, Cooperative, no acute distress NECK: Supple. Trachea is midline. No adenopathy. LUNGS: Symmetric expansion. Scattered wheezes bilaterally, worse at the right lower lung base. No rhonchi. Remains on 3 L nasal cannula at 92% oxygen saturation CV: RRR. S1 and S2 present. No murmurs, rubs, or gallops ABD: Soft. Non tender. Non distended. Bowel sounds present. EXT: Moves all extremities. No edema in LE bilaterally. No calf muscle tenderness. NEURO: No FND. A+Ox3. SKIN: Dry. Intact. No rashes or lesions. PSYCH: Appropriate mood and affect for situation Objective Lab Results CBC & Chem 7: 11/19/21 09:56 11/19/21 09:56 Meds Allergies and Active Meds Allergies mold Allergy (Verified 11/18/21 02:25) Nasal Discharge Active Meds: Active Medications Generic Name Dose Route Start Last Admin Trade Name Freq PRN Reason Stop Dose Admin Albuterol/Ipratropium 3 ml 11/18/21 08:00 11/19/21 07:47 Ipratropium/Albuterol 0.5-3 Mg 3 Ml Ampul.Neb INHALATION 11/18/22 07:59 NotGiven QID.RESP YVETTE Alprazolam 0.25 mg 11/18/21 17:24 11/18/21 20:54 Alprazolam 0.25 Mg Tablet PO 05/17/22 17:23 0.25 mg Q6H PRN Administration Anxiety Guaifenesin/Dextromethorphan 10 ml 11/18/21 04:33 Guaif/Dextromethorphan Syrup 10 Ml Udc PO 11/18/22 04:32 Q8H PRN Cough Heparin Sodium (Porcine) 5,000 unit 11/18/21 06:00 11/19/21 06:33 Heparin 5,000 Unit/Ml Vial SUBCUT 11/18/22 05:59 5,000 unit Q8HR YVETTE Administration Potassium Chloride 20 meq/ 260 mls @ 130 mls/hr 11/18/21 04:33 Sodium Chloride IV 11/18/22 04:32 DAILY PRN Hypokalemia Potassium Chloride 40 meq/ 520 mls @ 130 mls/hr 11/18/21 04:33 Sodium Chloride IV 11/18/22 04:32 DAILY PRN Hypokalemia Magnesium Sulfate 2 gm in 50 mls @ 25 mls/hr 11/18/21 04:33 Magnesium Sulf 2gm-*Swfi* IV 11/18/22 04:32 DAILY PRN Magnesium Level < 1.5 Labetalol HCl 5 mg 11/18/21 04:33 Labetalol 100 Mg/20 Ml Vial IV-PUSH 11/18/22 04:32 Q4H PRN Hypertension Lamotrigine 200 mg 11/18/21 09:00 11/19/21 09:06 Lamotrigine 100 Mg Tablet PO 11/18/22 08:59 200 mg DAILY YVETTE Administration Lurasidone HCl 40 mg 11/18/21 17:00 11/18/21 17:27 Lurasidone 40 Mg Tablet PO 11/18/22 16:59 40 mg DAILY@1700 YVETTE Administration Metformin HCl 1,500 mg 11/18/21 08:00 11/19/21 09:06 Metformin 500 Mg Tablet PO 11/18/22 07:59 1,500 mg DAILY@0800 YVETTE Administration Methylprednisolone Sodium Succinate 40 mg 11/18/21 11:00 11/19/21 03:17 Methylprednisolone Sod Succ/Pf 40 Mg/Ml (1ml) Vial IV-PUSH 11/18/22 10:59 40 mg Q8H YVETTE Administration Montelukast Sodium 10 mg 11/18/21 09:00 11/19/21 09:06 Montelukast 10 Mg Tablet PO 11/18/22 08:59 10 mg DAILY YVETTE Administration Ondansetron HCl 4 mg 11/18/21 04:33 Ondansetron 4 Mg/2 Ml Vial IV-PUSH 11/18/22 04:32 Q8H PRN Nausea And Vomiting Sertraline HCl 150 mg 11/18/21 09:00 11/19/21 09:07 Sertraline 50 Mg Tablet PO 11/18/22 08:59 150 mg DAILY YVETTE Administration Sodium Chloride 0 ml 11/18/21 02:23 11/19/21 03:17 Sodium Chloride 0.9 % 10 Ml Syringe IV-PUSH 11/18/22 02:22 10 ml PRN PRN Administration Flush A&P - Hospitalist Assessment/Plan (1) Acute respiratory failure with hypoxia: Plan: -On telemetry -Continue supplemental oxygenation to maintain SPO2 greater than 92%. Attempt to wean from 3 L nasal cannula and walked the patient in order to see tolerance -DuoNebs every 6 hours scheduled for wheezing -Continue Singulair 10 mg daily. She will need to continue this for about 1 week, then she can de-escalate back down to her albuterol as needed -We will continue IV Solu-Medrol 120 mg total daily. Consider transitioning to p.o. prednisone equivalent upon discharge -She will need to follow-up with her PCP to undergo PFTs and decide if she needsadditional medication (2) Asthma exacerbation: Plan: -See above (3) Asthma: Plan: -See above Plan -DVT prophylaxis with subcutaneous heparin -Normal diet -Full code I personally saw this patient on the day of the encounter, reviewed the history,performed the croft elements of the exam, formulated the plan of care and confirmed the Resident's assessment and plan. - Jp Barba DO Documented By: Juan Boyle DO, RES 11/19/21 0 956 Signed By: <Electronically signed by RES Juan Boyle> 11/19/21 1334 <Electronically signed by Jp Barba DO> 11/19/212221 [facility] Work Phone: 1(395) 788-439509-28-2022 Progress note Author Jp Barba [facility] November 18, 2021 1:57pm Note Date/Time November 18, 2021 1:50pm [facility] [address] [place] [address] Hospitalist Progress Note Signed Patient: Morro Maloney MR#: [id number] : 1985 Acct:[id number] Age/Sex: 36 / F Adm Date: 2 Loc: Room: [address] [place] [address] Type: ADM IN Attending Dr: pJ Barba DO Copies to: ~ Date of Service: 11/18/2021 Subjective Subjective Narrative: Patient seen and examined at bedside, overnight story was corroborated this morning. Patient states she is already feeling better, less likely from the steroid she received at the urgent care. She states her triggers for asthma is airborne soybean allergen. She states her last exacerbation like this was when she was 16 years old, she denies any recent hospitalizations for her asthma. She has never been intubated. She states she only takes albuterol as needed. Exam Physical Exam Vital Signs: Temp Pulse Resp BP Pulse Ox O2 Del Method O2 Flow Rate 98.3 F 106 H 20 153/70 H 91 L Nasal Cannula 4 11/18/21 04:42 11/18/21 12:52 11/18/21 12:52 11/18/21 12:00 11/18/21 12:00 11/18/21 12:00 11/18/21 12:00 Narrative: General: Awake alert, no acute distress HEENT: head atraumatic, normocephalic, moist mucous membranes, normal nose and ears, no throat lesions, normal conjunctiva Neck: supple no masses, no lymphadenopathy CVS: regular rate and rhythm, no murmurs or gallops Respiratory: Symmetric expansion, no pleuritic chest pain on deep inspiration, inspiratory and expiratory wheezes noted throughout, she remains on 3 L nasal cannula GI: soft, nondistended, nontender, positive bowel sounds with no organomegaly Extremity: moves all extremities, no restrictions of movements, no calf tenderness, no edema Neuro: AOx3, CN II-VII intact. Moves all extremities in all planes of motion. Skin: dry, intact no rashes or lesions Objective Lab Results CBC & Chem 7: 11/18/21 02:42 11/18/21 02:42 Microbiology Results Microbiology 11/18/21 03:11 Nasopharyngeal SARS-CoV-2, Influenza & RSV (PCR) - Final Meds Allergies and Active Meds Allergies mold Allergy (Verified 11/18/21 02:25) Nasal Discharge Active Meds: Active Medications Generic Name Dose Route Start Last Admin Trade Name Freq PRN Reason Stop Dose Admin Albuterol/Ipratropium 3 ml 11/18/21 08:00 11/18/21 12:44 Ipratropium/Albuterol 0.5-3 Mg 3 Ml Ampul.Neb INHALATION 11/18/22 07:59 3 ml QID.RESP YVETTE Administration Guaifenesin/Dextromethorphan 10 ml 11/18/21 04:33 Guaif/Dextromethorphan Syrup 10 Ml Udc PO 11/18/22 04:32 Q8H PRN Cough Heparin Sodium (Porcine) 5,000 unit 11/18/21 06:00 11/18/21 06:06 Heparin 5,000 Unit/Ml Vial SUBCUT 11/18/22 05:59 5,000 unit Q8HR YVETTE Administration Potassium Chloride 20 meq/ 260 mls @ 130 mls/hr 11/18/21 04:33 Sodium Chloride IV 11/18/22 04:32 DAILY PRN Hypokalemia Potassium Chloride 40 meq/ 520 mls @ 130 mls/hr 11/18/21 04:33 Sodium Chloride IV 11/18/22 04:32 DAILY PRN Hypokalemia Magnesium Sulfate 2 gm in 50 mls @ 25 mls/hr 11/18/21 04:33 Magnesium Sulf 2gm-*Swfi* IV 11/18/22 04:32 DAILY PRN Magnesium Level < 1.5 Labetalol HCl 5 mg 11/18/21 04:33 Labetalol 100 Mg/20 Ml Vial IV-PUSH 11/18/22 04:32 Q4H PRN Hypertension Lamotrigine 200 mg 11/18/21 09:00 11/18/21 09:07 Lamotrigine 100 Mg Tablet PO 11/18/22 08:59 200 mg DAILY YVETTE Administration Lurasidone HCl 40 mg 11/18/21 17:00 Lurasidone 40 Mg Tablet PO 11/18/22 16:59 DAILY@1700 YVETTE Metformin HCl 1,500 mg 11/18/21 08:00 11/18/21 09:07 Metformin 500 Mg Tablet PO 11/18/22 07:59 1,500 mg DAILY@0800 YVETTE Administration Methylprednisolone Sodium Succinate 40 mg 11/18/21 11:00 11/18/21 11:39 Methylprednisolone Sod Succ/Pf 40 Mg/Ml (1ml) Vial IV-PUSH 11/18/22 10:59 40 mg Q8H YVETTE Administration Montelukast Sodium 10 mg 11/18/21 09:00 11/18/21 09:06 Montelukast 10 Mg Tablet PO 11/18/22 08:59 10 mg DAILY YVETTE Administration Ondansetron HCl 4 mg 11/18/21 04:33 Ondansetron 4 Mg/2 Ml Vial IV-PUSH 11/18/22 04:32 Q8H PRN Nausea And Vomiting Sertraline HCl 150 mg 11/18/21 09:00 11/18/21 09:07 Sertraline 50 Mg Tablet PO 11/18/22 08:59 150 mg DAILY YVETTE Administration Sodium Chloride 0 ml 11/18/21 02:23 11/18/21 04:04 Sodium Chloride 0.9 % 10 Ml Syringe IV-PUSH 11/18/22 02:22 10 ml PRN PRN Administration Flush A&P - Hospitalist Assessment/Plan (1) Acute respiratory failure with hypoxia: Plan: ? Admit to telemetry floor ? Continue supplemental oxygenation to maintain SPO2 greater than 92% ? DuoNebs every 6 hour as needed for wheezing ? Started Singulair twice daily ? Did review this with the patient, explained to her that she will be dischargedon Singulair for roughly 1 week and then she can be step back down to her albuterol as needed ? Continue Solu-Medrol as ordered, plan to taper down to p.o. therapy once her wheezing is mitigated (2) Asthma exacerbation: Plan: See above (3) Asthma: Plan: See above Plan ? DVT prophylaxis subcu heparin ? Normal diet ? Full code Documented By: Jp Barba DO 11/18/21 1347 Signed By: <Electronically signed by Jp Barba DO> 11/18/21 1557 [facility] Work Phone: [phone]) 101-274409-28-2022 History and physical note Author Andres [facility] November 18, 2021 4:53am Note Date/Time November 18, 2021 4:53am [facility] [address] [place] [address] Hospitalist H&P Signed Patient: Morro Maloney MR#: [id number] : 1985 Acct:[id number] Age/Sex: 36 / F Adm Date: 2 Loc: Room: [address] [place] [address] Type: ADM INOo Attending Dr: Andres Mcgee MD Copies to: MD Abdullahi Vallejo BLASTER HELPER-C~ HPI DATE OF EXAMINATION: 11/18/21 CHIEF COMPLAINT: SOB HISTORY OF PRESENT ILLNESS: Patient is a 36-year-old female with history of depression/obesity and asthma who presented to the hospital via EMS after she called in due to severe shortness of breath and audible wheezing, the patient's been complaining of the symptoms for past 2 days, the patient was seen at an urgent care center and she was given Solu- Medrol without much improvement, in the hospital on presentation her oxygenation was an 87% on room air, chest x-ray was nonacute, the patient had mild leukocytosis most likely due to the steroids, the patient was given another dose of Solu-Medrol/a round of DuoNeb's and doxycycline on my encounter the patient was in bed did not seem to be in distress wearing the nasal cannula with oxygen saturation in the mid 90s stating that she feels a little bit bettercompared to the time she came in Review of Systems Review of Systems All other systems reviewed & are negative unless noted below or in HPI PMFSH Vaccinated for COVID-19?: Yes Medical History (Updated 11/18/21 @ 04:52 by Andres Mcgee MD) Anxiety Arthritis Asthma Bipolar disorder Hyperlipidemia Personal history of COVID-19 Polycystic ovary syndrome Sleep apnea pt. reports it's light & does not use machine Surgical History History of appendectomy History of section History of laparoscopic cholecystectomy History of parotidectomy Family History Grandparent Lung cancer Grandparent Lung cancer Father Alive and well Mother Alive and well Social History Smoking Status: Never smoker Substance Use Type: None Meds Medications and Allergies Allergies mold Allergy (Verified 11/18/21 02:25) Nasal Discharge Home Medications albuterol sulfate 90 mcg/actuation aerosol inhaler (Proventil HFA) 90 mcg inhalation DIRECTED PRN Shortness Of Breath Or Wheezing 03/31/18 [History Confirmed 11/18/21] metformin 500 mg tablet 1,500 mg PO DAILY PCOS 03/31/18 [History Confirmed 11/18/21] lurasidone 40 mg tablet (Latuda) 40 mg PO DAILY bipolar disorder 05/17/19 [History Confirmed 11/18/21] lamotrigine 200 mg tablet 200 mg PO DAILY bipolar disorder 04/11/21 [History Confirmed 11/18/21] sertraline 100 mg tablet 100 mg PO DAILY bipolar disorder 04/11/21 [History Confirmed 11/18/21] levalbuterol HCl 0.63 mg/3 mL solution for nebulization (Xopenex) 0.63 mg inhalation DIRECTED PRN wheeze 05/06/21 [History Confirmed 11/18/21] Exam Physical Exam Vital Signs: Temp Pulse Resp BP Pulse Ox O2 Del Method O2 Flow Rate 99.0 F 88 20 153/71 H 98 Nasal Cannula 2 11/18/21 04:15 11/18/21 04:06 11/18/21 04:06 11/18/21 04:06 11/18/21 04:06 11/18/21 04:06 11/18/21 04:06 Narrative: General: patient is alert and oriented HEENT: head atraumatic, normocephalic, moist mucous membranes, normal nose and ears, no throat lesions, normal conjunctiva Neck: supple no masses, no lymphadenopathy CVS: regular rate and rhythm, no murmurs or gallops Respiratory: Minimal end expiratory wheezing with bibasilar crackles GI: soft, nondistended, nontender, positive bowel sounds with no organomegaly Extremity: moves all extremities, no restrictions of movements, no calf tenderness, no edema Neuro: alert and oriented x3, normal speech, normal motor function Skin: dry, intact no rashes or lesions Results Lab Results Labs: Laboratory Last Values Corrected WBC 12.0 X10E3/uL (3.8-11.6) H 11/18/21 02:42 Uncorrected WBC Count 12.0 x10E3/uL (4.5-11.0) H 11/18/21 02:42 RBC 4.57 x10E6/uL (3.60-5.00) 11/18/21 02:42 Hgb 11.8 g/dL (11.8-15.4) 11/18/21 02:42 Hct 37.2 % (34.0-46.4) 11/18/21 02:42 MCV 81.4 fl (80-100) 11/18/21 02:42 MCH 25.9 pg (24.7-34.3) 11/18/21 02:42 MCHC 31.8 g/dL (32.0-35.0) L 11/18/21 02:42 RDW 17.5 % (11.9-15.3) H 11/18/21 02:42 Plt Count 326 x10E3/uL (150-450) 11/18/21 02:42 MPV 7.9 fl (6.3-10.7) 11/18/21 02:42 Neut % (Auto) 73.8 % (.) 11/18/21 02:42 Lymph % (Auto) 16.7 % (.) 11/18/21 02:42 [place] % (Auto) 5.6 % (.) 11/18/21 02:42 Eos % (Auto) 3.1 % (.) 11/18/21 02:42 Baso % (Auto) 0.8 % (.) 11/18/21 02:42 Neut # (Auto) 8.9 x10E3/uL (1.8-7.7) H 11/18/21 02:42 Lymph # (Auto) 2.0 x10E3/uL (1.00-4.8) 11/18/21 02:42 [place] # (Auto) 0.7 x10E3/uL (0.0-0.8) 11/18/21 02:42 Eos # (Auto) 0.4 x10E3/uL (0.0-0.45) 11/18/21 02:42 Baso # (Auto) 0.1 x10E3/uL (0.0-0.2) 11/18/21 02:42 Nucleated RBC % (auto) 0.1 % (0-0.5) 11/18/21 02:42 PHA Creatinine Clear 94.32 11/18/21 02:42 Sodium 134 mmol/L (136-146) L 11/18/21 02:42 Potassium 4.6 mmol/L (3.5-5.1) 11/18/21 02:42 Chloride 99 mmol/L (95-114) 11/18/21 02:42 Carbon Dioxide 21.7 mmol/L (22.0-30.0) L 11/18/21 02:42 Anion Gap 17.9 mEq/L (6.0-15.0) H 11/18/21 02:42 BUN 10 mg/dL (9-23) 11/18/21 02:42 Creatinine 0.98 mg/dL (0.44-1.03) 11/18/21 02:42 Est GFR ( Amer) > 60 mL/Min 11/18/21 02:42 Est GFR (Non-Af Amer) > 60 mL/Min 11/18/21 02:42 Glucose 104 mg/dL (70-100) H 11/18/21 02:42 Calcium 8.9 mg/dL (8.2-10.2) 11/18/21 02:42 Total Bilirubin 1.0 mg/dL (0.3-1.2) 11/18/21 02:42 AST 22 U/L (10-42) 11/18/21 02:42 ALT 15 U/L (10-60) 11/18/21 02:42 Alkaline Phosphatase 99 U/L (32-92) H 11/18/21 02:42 Total Creatine Kinase 78 U/L (22-269) 11/18/21 02:42 CK-MB (CK-2) 1.0 ng/mL (0.6-6.3) 11/18/21 02:42 CK-MB (CK-2) Rel Index 1.2 % (0.00-2.50) 11/18/21 02:42 Troponin I High Sens 3 pg/mL (0-15) 11/18/21 02:42 B-Natriuretic Peptide 17.0 pg/mL (5-100) 11/18/21 02:42 Total Protein 6.7 gm/dL (6.1-7.9) 11/18/21 02:42 Albumin 3.8 gm/dL (3.2-5.5) 11/18/21 02:42 Globulin 2.9 gm/dL 11/18/21 02:42 Albumin/Globulin Ratio 1.3 11/18/21 02:42 SARS-CoV-2 Rap RNA(RT-PCR) Negative (Negative) 11/18/21 03:11 Microbiology Results Micro: Microbiology - Results from entire visit 11/18/21 03:11 Nasopharyngeal SARS-CoV-2, Influenza & RSV (PCR) - Final A&P - Hospitalist Assessment/Plan (1) Hypoxemia: Plan Assessment and plan *Acute hypoxemic respiratory distress due to asthma exacerbation ? Admit to the floor on telemetry ? COVID/flu and RSV are all negative ? Chest x-ray is nonacute and no consolidations ? Continue with Solu-Medrol 40 IV every 8 ? DuoNebs 4 times daily ? Start patient on Singulair 10 mg p.o. daily ? Continue with nasal cannula to keep the saturation above 92% *Chronic medical issues 1. Depression 2. Morbid obesity ? Continue home medications *DVT prophylaxis with heparin subcu Documented By: Andres Mcgee MD 2 0450 Signed By: <Electronically signed by Andres Mcgee MD> 11/18/21 0457 [facility] Work Phone: [phone]) 384-662509-21-2022 Instructions* Patient Instructions* Homa Mack PA-C - 11/11/2021 11:50 AM EDT PATIENT PREOPERATIVE INSTRUCTIONS Self has scheduled you for your procedure at this surgery center: [facility]: [phone] --[address] [facility], [place] [address]. Please read below carefully for your personalized instructions. Dietary Restrictions: - No solid food after midnight. - You may have 12 ounces of clear liquids (water, clear juices such as apple juice or gatorade, carbonated beverages, clear tea, black coffee, jello) until 2 hours before scheduled arrival at facility. Medications: Unless instructed differently below, stay on all of your medications until your surgery. Approved medications to take the morning of surgery with a sip of water: asthma inhaler If you start any new medications after today's visit, please contact the surgeon's office. Blood Thinning Medications: - Stop NSAIDS (Ibuprofen, Advil, Aleve, Motrin, Celebrex, Mobic, etc.) 7 days before surgery, as directed by your surgeon. - Stop Aspirin 7 days before surgery, as directed by your surgeon. - Stop Vitamin E, ALL multi-vitamins, herbals and dietary supplements 7 days before surgery. - You may take Tylenol (Acetaminophen) or any of your pain medications that do not contain aspirin or NSAIDS as needed. Important Reminders: - Candy, mints, and tobacco products are NOT permitted the morning of surgery. - Hearing aids, dentures and glasses may be worn the morning of surgery. - NO jewelry, body piercings, makeup, hairpins or contacts are to be worn the day of surgery. If you develop symptoms such as a fever, cold, or flu, or have other changes to your health within TWO DAYS of scheduled surgery or the morning of surgery, please contact the surgery center above. Personal Belongings: -Please have photo ID and insurance cards. -If you do not have a copy of advance directives on file with us, please bring a copy with you on the day of surgery. - Leave ALL valuables and money at home or with family members. For Outpatient Procedures: - YOU MUST HAVE A RESPONSIBLE RETAIL BEAUTY SPECIALIST TAKE YOU HOME. A CHIEF DESIGN BRANCH OR CUBE MACHINE TENDER CANNOT BE MADE A RESPONSIBLE RETAIL BEAUTY SPECIALIST. - We recommend that a responsible person stays with you overnight to take care of you. - You cannot stay in a hotel alone after outpatient surgery. You will not be permitted to have yoursurgery, if you do not have someone to take care of you. Arrival Time for Surgery: - The Surgery Center or hospital where you are having surgery will call the afternoon before surgery (or Tuesday for Tuesday surgery) with a scheduled arrival time. - If you have not heard by 4 pm, please contact the surgery center above. Please be aware that emergency situations arise, which may delay or change your surgical time. If this happens, we will notify you as soon as possible and regret any inconvenience. If you already have an Advance Directive, please fax a copy to [phone] or email to for it to be added to your chart. If you do not have an Advance Directive, you can find the appropriate form and more information at [email or web address]. We recommend that youcomplete the Advance Directive form found on the website and bring it with you the day of your surgery. It can be witnessed and scanned into your chart that day. Homa Mack PA-C documented in this [facility] History and physical note * Homa Mack PA-C - 11/11/2021 11:20 AM EDT PREANESTHESIA CONSULT CLINIC TELEHEALTH VISIT Patient has been identified by name and date of : Yes This is a virtual visit using [employer] video visit. It require patient-provider interaction for the medical decision making as documented below. Reason for contact: PACC visit Accompanied by: Self Scheduled Surgery: REPAIR STRABISMUS 1 HORIZONTAL MUSCLE BILATERAL 11/30/2021 Subjective CHIEF COMPLAINT: Patient presents with: Pre-Op Exam HPI: This is a 36 year old female who presents with monocular esotropia of her left eye. She initially noticed difficulty focusing ~ 8 months ago. She woke up with diplopia about 3 months ago and shortly after noticed her left eye turning inward. She denies trauma or injury to her left eye, ocular pain, erythema, discharge. There is no problem list on file for this patient. PAST MEDICAL HISTORY Diagnosis Date Asthma Bipolar disorder (HCC) Degeneration of lumbar intervertebral disc GERD (gastroesophageal reflux disease) Hyperlipidemia Metabolic syndrome X Monocular esotropia, left eye Morbid obesity (HCC) PATRICE (obstructive sleep apnea) PCOS (polycystic ovarian syndrome) Steatosis of liver PAST SURGICAL HISTORY Procedure Laterality Date ACELL ALLOGRAFT TO PAROTIDECTOMY DEFECT Left 06/2021 BARIATRIC SURGERY HX 06/2021 sleeve gastrectomy SECTION HX 2019 REMOVAL GALLBLADDER 2019 FAMILY HISTORY Problem Relation Age of Onset No Known Problems Mother Strabismus Father Strabismus Brother Social History Tobacco Use Smoking status: Never Passive exposure: Never Smokeless tobacco: Never Substance Use Topics Alcohol use: Never Drug use: Never ALLERGIES No Known Allergies MEDICATIONS: Current Outpatient Medications Medication Sig PROAIR HFA 90 mcg/actuation inhaler lamoTRIgine (LAMICTAL) 200 mg tablet Take 1 tablet by mouth once daily. lurasidone (LATUDA) 40 mg tablet Take by mouth q 24 HR. sertraline (ZOLOFT) 100 mg tablet No current facility-administered medications for this visit. COVID VACCINATION STATUS: Fully vaccinated REVIEW OF SYSTEMS: Pain Assessment: General: No malaise or fevers. +65 lb weight loss after gastric sleeve surgery 06/2021 Neuro: No history of TIA's, stroke, CORK FLOOR INSTALLER tumor, impaired sensorium, hemiplegia, paraplegia or quadraplegia. No neurological symptoms or problems. Respiratory: No current cough or dyspnea, or pneumonia in the past 6 weeks.+asthma- last used rescue inhaler 1 week ago +PATRICE- mild per patient and did not require CPAP Cardiovascular: No history of HTN requiring medication, no history of angina, CHF, MA, cardiac surgery or stents. Denies rest pain, gangrene or revascularization/amputation for PVD. No history of cardiovascular symptoms or problems. +hyperlipidemia GI: No history of esophageal varices, recent ascites, or ETOH greater than 2 drinks per day.+h/o GERD mostly with +fatty liver +sleeve gastrectomy 06/2021 : No history of dysuria, frequency or incontinence,, stones or chronic kidney disease HEALTH INSURANCE ASSESSOR: Negative for abnormal vaginal bleeding, abnormal vaginal discharge. +PCOS : Denies, Patient's last menstrual period was 11/04/2021 (exact date). Endocrine: No history of diabetes. Has not taken steroids within the past 30 days. No history of endocrinological symptoms or problems. Hematology: No history of bleeding or clotting disorder. Pt is not taking anti- coagulation or platelet medications. No history of hematological symptoms or problems. Oncology: No history of CA metastasis, chemo within 30 days, or radiotherapy within 90 days. Has not lost 10% of body wt in 6 months. No history of oncological symptoms or problems. Psych: +bipolar disorder Musculoskeletal: Negative for joint pain or swelling, back pain or muscle pain. Skin: Negative for lesions, rash and itching. Objective PHYSICAL EXAM: Ht 5' 4 (1.63m) Wt 220 lb (99.8kg) LMP 11/04/2021 BMI 37.74 kg/(m^2). VIDEO EXAM: (if completed, performed via video enabled technology) GENERAL: alert and appropriate, in no distress, well-hydrated, well nourished, and happy, smiling, interactive +obese SKIN: no rash noted HEAD: normocephalic, no abnormality or lesion noted EYES: no injection and visual acuity is grossly normal EARS: hearing grossly normal NOSE: external nose normal without rhinorrhea OROPHARYNX: moist mucus membranes NECK: full ROM, no cervical LNs noted RESPIRATORY: breathing non-labored CHEST: equal chest rise with normal respiratory effort HEART: regular rhythm per patient counting method EXTREMITIES: no patient reported lower extremity edema NEUROLOGIC: no obvious deficit Diagnostic tests reviewed for today's visit: Lab Value Units Date High Low HB No results within date range. HCT No results within date range. WBC No results within date range. PLT No results within date range. NA No results within date range. K No results within date range. GLUC No results within date range. BUN No results within date range. CREAT No results within date range. PTSEC No results within date range. INR No results within date range. APTT No results within date range. ALT No results within date range. AST No results within date range. TBILI No results within date range. TSH No results within date range. Lab Value Units Date High Low HCGQT No results within date range. UHCG No results within date range. HCG, BODY* No results within date range. Lab Value Units Date High Low ABORHD No results within date range. ABSCREEN No results within date range. No results found for: HBA1C No new labs ECG from 2019 in Care Everywhere : Normal sinus rhythm Normal ECG When compared with ECG of 24-APR-2017 17:45, No significant change was found Confirmed by HANNAH PEREZ ([id number]) on 04/10/2018 Impression/Recommendations ASSESSMENT: Hyperlipidemia Assessment: not on medication Asthma Assessment: managed with Proair inhaler prn- last used ~ 1 week ago PATRICE (obstructive sleep apnea) Assessment: mild per patient and CPAP was not required Bipolar disorder (HCC) Assessment: managed with Lamictal, Latuda, Zoloft Obesity (BMI 30-39.9) Assessment: Body mass index is 37.76 kg/m . H/O bariatric surgery Assessment: sleeve gastrectomy 06/2021 65 lb weight loss so far Steatosis of liver Assessment:. METS: Climb a flight of stairs or walk up a hill (5.50 METs) Do heavy work around the house, such as scrubbing floors, lifting or moving heavy furniture (8.00 METs) Patient denies any chest pain or undue shortness of breath with the above physical activity. ASA Class: 2 ANESTHESIA FINDINGS: Intubation History: No history of difficult intubation Significant Anesthesia Considerations: None Airway Exam: General: Normal appearance Mallampati Score is CLASS II ULBT: Class I - Lower incisors can bite the upper lip above the yuliya line Neck: Normal appearance and function, Distance from hyoid to mentum during neck extension is at least 3 finger breaths Mouth: Normal tongue size and Mouth opening greater than 2 finger breaths Dentition: Intact Airway History: No history of difficult intubation STOP BANG Score: PATRICE does not use CPAP/BiPAP PLAN: This patient is optimally prepared for surgery. CONSULTS: Patient does not require consults for optimization at this time. The Following Tests/Procedures Have Been Initiated: Labs not indicated per PACC protocol, EKG not indicated per PACC protocol Planned Anesthetic: General Instructions Given to Patient: Patient given verbal instructions and voices comprehension and compliance. Copy sent electronically via My Chart, email, or mobile device. I spent more than 21-40 minutes [id number] with the patient and over half the time was devoted tocounseling and/or coordination of care. This is a virtual visit. It required patient-provider interaction for the medical decision making as documented above. SIGNATURE: Homa Mack PA-C PATIENT NAME: Morro Maloney DATE: November 11, 2021 TIME: 11:10 AM PAGER/CONTACT #: documented in this encounterT[facility]08-15-2022 Miscellaneous Notes* Telephone Encounter - Sajan Dodd - 10/05/2021 3:08 PM EDT Spoke with pt and scheduled Strabismus surgery on 11/30/21. Pt will schedule PACC with her PCP. Blaze Geronimo documented in this encounterT[facility]08-12-2022 Instructions* Patient Instructions* Meenakshi Obrien MD - 10/02/2021 2:44 PM EDT Information for surgery with Dr. Obrien Surgery Scheduling [place] - Tuesday of each month. Adults and children 1 year old and older. No major medical comorbidities (including sleep apnea, obesity, and pacemaker). [facility] - Second (PM start), Fourth (AM start), and (AM start) Tuesday of each month. Surgery coordinator for [facility] - Allegra Hearn [phone]. An alternative number is [phone]. Surgery coordinator at [place] - Blaze Geronimo [phone]. Adults have to get prior authorization from their insurance. We will submit a letter to your insurance and then they have 60 days to respond. After you have been approved, then we can schedule your surgery. While we are waiting for approval, you may notice that your surgery is scheduled for a random Tuesday. Please ignore this, it is just a way for us to keep track of people needing prior authorization. Pre-Op History and physical exam. All patients must have a pre-operative history and physical to clear them medically for surgery within 30 days of their surgery date. This can be completed by their primarycare physician or through the pre- anesthesia testing department. If their physician is outside of the [facility] system, then please bring a printed copy of their history and physical with on the day of their surgery. Schedule pre-anesthesia testing appointment. Call [phone]. Pre-op measurements. Sometimes we do a pre-op measurements visit with Dr. Obrien about a week prior to surgery. At this visit we can answer any questions that you have about the surgery and sign theconsent. If we do not do a pre-op visit, then we may sign the consent on the day of surgery. If youhave any questions prior to surgery, you can send a [employer] message or you can call Dr. Obrien s office at [phone]. Children get sick a lot! If your child is sick before their surgery date, then you may want to reschedule their surgery since this is considered elective. Children with a fever or wheezing or significant congestion will need to be rescheduled. If rescheduling their surgery, they may need to get another history and physical if it has been more than 30 days. Please stop any blood thinners (if authorized by your prescribing physician) and avoid aspirin and ibuprofen/motrin for 10 days prior to surgery to decrease risk of bleeding. All children 10 and younger must be tested for COVID 72 hours prior to their surgery and then they must self-quarantine between time of test and their surgery. Parents will not be tested for COVID. All children having surgery are tested because they can be asymptomatic carriers of COVID and intubati on/extubation part of anesthesia releases a lot of respiratory particles into the air putting the anesthesiologists and surgery staff at risk of acquiring COVID. Day of Surgery Only one or both parents are allowed to come into the hospital with your child for surgery due to COVID restrictions. No extra family members or siblings. We ask that you and your child (2 years old and older) wear a cloth mask at all times. We understand that not all children will be able to keep their mask on. Eating. No solid foods or milk 8 hours prior to surgery. Formula up to 6 hours prior to surgery. Breast milk up to 4 hours prior. Clear liquids (water, apple juice) up to 2 hours prior. Eye drops/ointment. We typically prescribe eye drops or ointment and instruct you to pick them up prior to surgery and bring with you on the day of surgery. Please hand them to your doctor prior to surgery so they can instill at the end of the surgery and then return the bottle to you to use at home. Makeup. Please do not wear any makeup on the day of surgery. Please do your best to clean off all make up, especially eye makeup, the night before surgery. Driving. You may not drive on day of surgery due to general anesthesia. You must have someone driveyou. Arrival time. The surgery department will call you the day prior to surgery to let you know what time to arrive. They typically have you arrive 1 hour prior to scheduled start of your surgery. Sometimes we run behind schedule, so please bring with books and toys for entertainment. Please plan accordingly and arrange for someone else to take care of other kids at home/pick them up from school, etc. Location: [place] - Surgery center is on 2nd floor [place] - Surgery pre-op waiting areas is 3 Anesthesia. You will meet your anesthesiologist in the pre-op area and they can answer any questions that you have about anesthesia. To put children to sleep, an anesthesiologist will use a mask withgas (children can pick a flavor in pre- op) to get them asleep, and then they will insert an IV. Older children and adults get IVs in the pre-op area. You will not be allowed back in to the operating area and will wait in the waiting area for the doctor to come and debrief after the surgery. Eye muscle surgery typically takes 30 minutes per muscle. If this is a reoperation or in an area of scar tissue, then it will take longer. This does not include time to put patient to sleep and wake up. Frien ds/family should bring a snack to eat during the surgery since they will probably also be fasting prior to surgery so patient does not feel bad. Recovery area. We will try to get you into your child s recovery room before or soon after they wake up. If your child is sleeping when you enter the recovery room, please let them continue sleeping and wake up on their own. Your child will most likely be upset when they wake up. The anesthesia makes them feel yucky and disoriented. While their eyes will feel irritated, their agitation is usuallydue to the anesthesia more so than eye pain. They will still have their IV in so that we can give them pain, nausea, or relaxing medication if needed. The IV will be removed before you leave. Discharge time. People are typically discharge 1 to 2 hours after their surgery is completed. It depends on how quickly they wake up and feel ready to go home. They will try to have them eat and drink something in recovery. They will also want them to go to the bathroom before leaving. Post-Op Pain management - over the counter Tylenol or ibuprofen for pain. We do not typically prescribe stronger pain medication. For the first 24 hours, we recommend that you give take pain medication every4 hours around the clock (alternating between Tylenol and ibuprofen to avoid overdose) in order to p revent pain from getting significant. Wound management We do not typically put a patch on the operate eye(s). Keep area clean and dry. Two weeks of no swimming and no getting dirt/dust/sand/snow/water in eyes.For the most part, that means staying inside. When bathing try to limit water and soap from gettingin eyes. This may be easier by taking a bath rather than shower. Some people prefer to wear swim goggles in the shower. Try to avoid rubbing eyes for the first 2 weeks. Eye drops/ointment. Instil as directed. Typically 1 drop, 3 times per day until first post-op visit. Ideally, have patient lie down and hold lower eyelid down to instil drop in eye. It is okay if they close their eyelids and you drop in nasal corner of eye. It is generally okay if you run out of drops before the first post-op visit. If there is a lot of inflammation or any signs of infection at first post-op visit, then I may have you continue or switch to a different medication. Ice packs. Apply dry ice packs to eyes for the first 24 hours to help with swelling. It is normal to have blood tinged tears for the first day. It is normal to have clear mucous and crusting. It is normal to have some blurry vision (we put dilating drops in the eyes having surgery that lastabout 5 hours), photophobia (light sensitivity), foreign body sensation, and watering. The white part of the eyes will look bloodshot and swollen for up to 4 weeks. In general, younger people heal quicker than older people. The stitches may look like little black dots and dissolve by 6weeks. It is normal to have some double vision after surgery and this tends to improve within a few days to weeks. The eyes may not look perfectly straight right after surgery. They eyes muscles will be swollen and need time to reattach to the eyes and start working again. It is normal to have pain when trying to look in certain directions for the first week. It is normal to feel disoriented and unhappy for the first 24 hours following the surgery. This is typically from the general anesthesia. Most people feel better after getting home and each day should feel better than the prior one. Post-op Visits 1 week (this should be scheduled prior to surgery) 1 month 3 months Time Off No school or daycare for 1 week. No gym class or outdoor recess for 1 week once they have returned to school. I prefer for a parent or caregiver to be with patient at home for the first week to ensure proper care. I am happy to fill out any paperwork that you need completed or I can write a letter for you to excuse from school/work. Most people take 2 weeks off of work. You may return to work sooner if you feel up to it. Some people take up to 3 weeks off if they work in an environment where things can get in their eyes (like construction work). No driving the day of the surgery because of general anesthesia. You have to feel comfortable with your vision before driving. If you have new double vision after surgery, you may close or patch one eye to help you function. Legally, you can drive with just one eye as long as you feel comfortable with you vision. Reasons to call doctor Any concerns about infection. Signs of an infection can be: pus discharge, red swollen eyelids, decreased vision, and/or a fever. Sudden eye misalignment. If eyes were looking fairly straight and all of the sudden are consistently not straight. There is always an on-call doctor available to answer questions or to examine the patient at [facility], even at night and on the weekends. Dr. Obrien s office number is [phone]. [facility] History of Present illness Narrative* Meenakshi Obrien MD - 10/02/2021 2:43 PM EDT ASSESSMENT/PLAN: 1. Monocular esotropia, left eye - ICD9: 378.01, ICD10: H50.012 (primary diagnosis) 2. Diplopia - ICD9: 368.2, ICD10: H53.2 - acute onset left esotropia with diplopia for 6 months - worked up with MRI brain that was normal - no incomitance or indication of CN 6 palsy - strong family history of strabismus requiring strabismus surgery - constant left esotropia - no stereo - diplopia on W4D test at distance and near - full motility - Recommend strabismus surgery to alleviate diplopia and improve binocular vision (stereo). Discussed strabismus surgery - risks, benefits, and alternatives. Surgery orders placed for Eliezer. Follow-up in: Surgery I have confirmed and edited as necessary the relevant ophthalmic history, ROS, and the neuro exam findings as obtained by others. I have seen and examined this patient. I have discussed the case and the management of this patient's care with the Resident/Fellow, if applicable. I also have reviewed and agree with the assessment and plan as stated above and agree withall of its relevant components. Meenakshi Obrien MD October 02, 2021 2:44 PM [facility] Evaluation note* Encounter Date Diagnosis Assessment Notes Treatment Notes Treatment Clinical Notes Jan, Sacroiliitis (ICD-10 - M46.1) Consider repeat SI joint injection in the future. Jan, Lumbosacral spondylosis (ICD-10 - M47.817) 35 year old female here for follow up status post lumbar facet medial branch nerve block bilaterally at the L2, L3 and L4 levels, as well as the L5 dorsal ramus under fluoroscopic guidance. Patient reports greater than 90% pain relief and increased function for 24 hours following procedure. She voices complaints of right sided low back/buttock pain, with radiation to the posterior aspect of the right thigh to the knee. She also notes an intermittent numbness/tingling to the right justice. I recommend proceeding with a right followed by left lumbar facet medial branch RFA. Risks and benefits of procedure explained to patient; patient verbalizes understanding. Jan, Lumbar radiculopathy (ICD-10 - M54.16) Patient denies radicular symptoms. Jan, Chronic pain (ICD-10 - G89.29) Continue with current treatment plan [facility] Other 10-26-2021 Evaluation note* Encounter Date Diagnosis Assessment Notes Treatment Notes Treatment Clinical Notes Nov, Sacroiliitis (ICD-10 - M46.1) Patient reports 80% relief of pain and increased function to the sacral area. Continue with current treatment plan. Nov, Lumbosacral spondylosis (ICD-10 - M47.817) 35 y/o female here for follow up status post lumbar facet medial branch nerve block bilaterally at the L2, L3 and L4 levels, as well as the L5 dorsal ramus under fluoroscopic guidance. Patient reports 80-90% relief of pain and increased function for 24 hours following the procedure. She continues to complain of low back pain today as expected. I recommend proceeding with a second bilateral lumbar facet medial branch nerve block. Risks and benefits of procedure explained to patient; patient verbalizes understanding. Nov, Lumbar radiculopathy (ICD-10 - M54.16) Patient denies radicular symptoms. Nov, Chronic pain (ICD-10 - G89.29) Continue with current treatment plan [facility] Other 09-23-2021 Evaluation note* Encounter Date Diagnosis Assessment Notes Treatment Notes Treatment Clinical Notes Oct, Sacroiliitis (ICD-10 - M46.1) Patient reports 80% relief of pain and increased function to the sacral area. Continue with current treatment plan. Oct, Lumbosacral spondylosis (ICD-10 - M47.817) 35 y/o female here for follow up status post sacroiliac joint injection bilaterally under fluoroscopic guidance. Patient reports 80% relief of pain and increased function to the area treated, following the procedure. She continues to complain of residual low back pain as well as bilateral buttock pain. Anatomy of lumbar spine as well as different treatment options were discussed in detail with patient in regards to patients condition. I recommend that we proceed with a lumbar facet medial branch nerve block under fluoroscopic guidance. Risks and benefits of procedure explained to patient; patient verbalizes understanding. Oct, Lumbar radiculopathy (ICD-10 - M54.16) Patient denies radicular symptoms. Oct, Chronic pain (ICD-10 - G89.29) Continue with current treatment plan [facility] Other Discharge summary Author Jp Barba [facility] November 19, 2021 10:28pm Note Date/Time November 19, 2021 10:28pm [facility] [address] [place] [address] Discharge Summary Signed Patient: Morro Maloney MR#: [id number] : 1985 Acct:[id number] Age/Sex: 36 / F Adm Date: 2 Loc: Room: [address] [place] [address]: Jp Barba DO Copies to: Abdullahi Barba, ~ Providers Date of Admission: 11/18/21 Date of Discharge: 11/19/21 Discharging Provider: Jp Barba Primary Care Provider: Abdullahi Selby Discharge Diagnosis (1) Acute respiratory failure with hypoxia: (2) Asthma exacerbation: (3) Asthma: Final Diagnosis Final Discharge Diagnosis: As above Summary Hospital Course Hospital course: Miss Maloney is a 36-year-old female who presented to hospital the manager port of 09/17 with a chief complaint of shortness of breath secondary to asthma exacerbation. She states it has been going on for a few days now and got to thepoint where she no longer felt comfortable breathing on her own, she subsequent went to the urgent care and was given IV Solu-Medrol which did not relieve any of her symptoms which prompted her to come to the emergency room for further evaluation. She was a 7% on room air, chest x-ray was negative and she was started on IV Solu-Medrol and duo nebs every 6 as needed for wheezing. She was requiring oxygen at 3 to 4 L, without that she was desaturating. Despite this she was continuing to refuse her breathing treatments, I do believe she refused 3 in a row. This morning upon my evaluation, the patient was actually requiring4 L consistently whereas the day prior was only 3 L. Looking back to the charts, she refused breathing treatments at 5 AM and 11 AM, when I asked her whyshe refused them she said she was sleeping and had things to do though she is lying on a hospital bed and I am unsure what things she was doing at this point in time. I did tell her that because her oxygen requirements were increasing itshe was refusing her DuoNeb treatments there is a high probability that she was going to end up intubated on the ventilator as she appeared to be getting worse in my opinion. The patient disagreed with this wholeheartedly and said she is feeling fine and breathing better than when she got in here despite the fact I can hear her wheezing from outside of the room. The patient stated she had to work today and was very unhappy when I told her I was not planning on discharging her because she had audible wheezes and in my opinion she was not improving. I did tell her I did not feel comfortable discharging her today, I felt bad that she had to work and was going to interfere with her work schedule but I did not feel that was a good enough reason to have an unsafe discharge. After discussion, the patient decided to leave AMA. I gave her a small taperingdose of p.o. prednisone due to the fact she was on 80 mg Solu- Medrol 3 every 8 hours. She left the hospital on her own accord. Patient left AMA Condition Condition at Discharge: Stable Time Spent with Patient Time spent providing/coordinating discharge services (# min): 45 Diagnostic Studies Completed and Pending Studies Labs on day of discharge: 11/19/21 09:56: PHA Creatinine Clear 93.33, Sodium 136, Potassium 4.5, Chloride 103, Carbon Dioxide 22.0, Anion Gap 15.5 H, BUN 13, Creatinine 0.98, Est GFR ( Amer) > 60, Est GFR (Non-Af Amer) > 60, Glucose 149 H, Calcium 9.5, Magnesium 1.8 11/19/21 09:56: Corrected WBC 17.0 H, RBC 4.86, Hgb 12.7, Hct 39.9, MCV 82.2, MCH 26.1, MCHC 31.8 L, RDW 18.0 H, Plt Count 334, MPV 8.1 Exam Physical Exam Vital Signs: Temp Pulse Resp BP Pulse Ox O2 Del Method O2 Flow Rate 98.2 F 78 24 120/68 93 L Room Air 3.5 11/19/21 11:09 11/19/21 11:09 11/19/21 11:11/19/21 11:11/19/21 13:25 11/19/21 13:11/19/21 11:45 Narrative: General: Awake alert, no acute distress HEENT: head atraumatic, normocephalic, moist mucous membranes, normal nose and ears, no throat lesions, normal conjunctiva Neck: supple no masses, no lymphadenopathy CVS: regular rate and rhythm, no murmurs or gallops Respiratory: Symmetric expansion, no pleuritic chest pain on deep inspiration, inspiratory and expiratory wheezes noted throughout especially on the right, sheremains on 4 L nasal cannula GI: soft, nondistended, nontender, positive bowel sounds with no organomegaly Extremity: moves all extremities, no restrictions of movements, no calf tenderness, no edema Neuro: AOx3, CN II-VII intact. Moves all extremities in all planes of motion. Skin: dry, intact no rashes or lesions Discharge Plan Discharge Plan Patient Disposition: Against Medical Advice Prescriptions: New prednisone 10 mg tablet See Rx Instructions .ROUTE .COMPLEX Qty: 36 0RF Rx Instructions: prednisone 5 mg: take 8 tablets (40 mg) on Day 1; 7 tablets (35 mg) on Day 2;then decrease by 1 tablet every day until finished Continued lamotrigine 200 mg tablet 200 mg PO DAILY Label Comments: TAKE 1 TABLET BY MOUTH ONCE DAILY FOR 30 DAYS sertraline 100 mg tablet 100 mg PO DAILY Label Comments: TAKE 1 & 1/2 (ONE & ONE-HALF) TABLETS BY MOUTH ONCE DAILY metformin 500 mg Tablet 1,500 mg PO DAILY albuterol sulfate [Proventil HFA] 90 mcg/actuation Hfa Aerosol Inhaler 90 mcg Inhalation DIRECTED PRN (Reason: Shortness Of Breath Or Wheezing) Latuda 40 mg tablet 40 mg PO DAILY Label Comments: TAKE 1 TABLET BY MOUTH ONCE DAILY IN THE EVENING WITH 350 DEEPAK levalbuterol HCl [Xopenex] 0.63 mg/3 mL Solution For Nebulization 0.63 mg INHALATION DIRECTED PRN (Reason: wheeze) Documented By: Jp Barba DO 11/19/212221 Signed By: <Electronically signed by Jp Barba DO> 11/19/212227 [facility] Work Phone: Discharge summary Author Hema Miramontes [facility] December 28, 2021 4:50pm Note Date/Time December 28, 2021 4 :50pm [facility] [address] [place] [address] Discharge Summary Signed Patient: Morro Maloney MR#: [id number] : 1985 Acct:[id number] Age/Sex: 36 / F Adm Date: 2 Loc: Room: [address] [place] [address]: Hema Miramontes MD Copies to: MD Abdullahi Lee [employer]~ Providers Date of Discharge: 12/28/21 Discharging Provider: Hema Miramontes Primary Care Provider: Abdullahi Selby Discharge Diagnosis (1) Asthma exacerbation: (2) Acute respiratory failure with hypoxia: (3) Bipolar disorder: (4) Morbid obesity due to excess calories: Final Diagnosis Final Discharge Diagnosis: As above Summary Hospital Course Hospital course: Ms. Maloney is a 36-year-old female with PMH of asthma, with third exacerbation inthe past few months. She presents with wheezing, dyspnea on exertion and did require multiple DuoNeb's in the emergency department without significant improvement in symptoms. Patient was maintained on maintenance inhaler in [facility], but is currently not taking any maintenance inhalers. She does have a rescue albuterol inhaler and does have nebulizer machine with leave albuterol. She was treated with scheduled duo nebs with albuterol/ipratropium and was started on budesonide twice daily. She was also started on high-dose IV Solu-Medrol every 8 hours. She had significant clinical improvement overnight with DuoNeb therapy and Solu-Medrol. Given her significant clinical improvement, shewill switch to taper of Solu-Medrol as an outpatient. She will also be started on maintenance inhaler with Advair, which she has taken in the past with good efficacy. She will also be referred to pulmonology as an outpatient for furthermanagement of her moderate asthma. 35 minutes spent coordinating the discharge of this patient Time Spent with Patient Time spent providing/coordinating discharge services (# min): 35 Diagnostic Studies Completed and Pending Studies Pending studies at discharge: 12/27/21 17:52 Sputum Culture Routine Labs on day of discharge: 12/28/21 05:52: PHA Creatinine Clear 96.17, Sodium 137, Potassium 4.3, Chloride 106, Carbon Dioxide 21.5 L, Anion Gap 13.8, BUN 9, Creatinine 0.94, Est GFR ( Amer) > 60, Est GFR (Non-Af Amer) > 60, Glucose 162 H, Calcium 9.4 12/28/21 05:52: Corrected WBC 11.2, Uncorrected WBC Count 11.2 H, RBC 4.76, Hgb 12.6, Hct 39.3, MCV 82.6, MCH 26.5, MCHC 32.1, RDW 17.6 H, Plt Count 315, MPV 7.8, Neut % (Auto) 89.6, Lymph % (Auto) 8.7, [place] % (Auto) 1.3, Eos % (Auto) 0.0, Baso % (Auto) 0.4, Neut # (Auto) 10.0 H, Lymph # (Auto) 1.0, [place] # (Auto) 0.1, Eos # (Auto) 0.0, Baso # (Auto) 0.0, Nucleated RBC % (auto) 0.0 Exam Physical Exam Vital Signs: Temp Pulse Resp BP Pulse Ox O2 Del Method O2 Flow Rate 98.0 F 99 H 18 110/72 94 L Room Air 2 12/28/21 16:00 12/28/21 16:00 12/28/21 16:00 12/28/21 16:00 12/28/21 16:00 12/28/21 16:00 12/28/21 11:56 Narrative: Narrative: GEN: Pleasant, Cooperative, no acute distress NECK:? Supple. Trachea is midline. No adenopathy. LUNGS: Symmetric expansion.? Scattered wheezes bilaterally, worse at the right lower lung base.? No rhonchi.? Remains on 3 L nasal cannula at 92% oxygen saturation CV: RRR. S1 and S2 present. No murmurs, rubs, or gallops ABD: Soft. Non tender. Non distended. Bowel sounds present. EXT: Moves all extremities. No edema in LE bilaterally. No calf muscle tenderness. NEURO: No FND. A+Ox3. SKIN:?Dry. Intact. No rashes or lesions.? PSYCH: Appropriate mood and affect for situation Discharge Plan Discharge Plan Patient Disposition: Home Diet: Regular Stand Alone Forms: Work/School Release Form Prescriptions: New methylprednisolone [Medrol ([place])] 4 mg tablets,dose pack See Rx Instructions .ROUTE .COMPLEX Qty: 21 0RF Rx Instructions: orally per package directions fluticasone propion-salmeterol [Advair Diskus] 500-50 mcg/dose blister with device 1 inh inhalation BID Qty: 60 4RF Continued lamotrigine 200 mg tablet 200 mg PO DAILY Label Comments: TAKE 1 TABLET BY MOUTH ONCE DAILY FOR 30 DAYS sertraline 100 mg tablet 100 mg PO DAILY Label Comments: TAKE 1 & 1/2 (ONE & ONE-HALF) TABLETS BY MOUTH ONCE DAILY metformin 500 mg Tablet 1,500 mg PO DAILY albuterol sulfate [Proventil HFA] 90 mcg/actuation Hfa Aerosol Inhaler 90 mcg Inhalation DIRECTED PRN (Reason: Shortness Of Breath Or Wheezing) Latuda 40 mg tablet 40 mg PO DAILY Label Comments: TAKE 1 TABLET BY MOUTH ONCE DAILY IN THE EVENING WITH 350 DEEPAK levalbuterol HCl [Xopenex] 0.63 mg/3 mL Solution For Nebulization 0.63 mg INHALATION DIRECTED PRN (Reason: wheeze) Follow Up: Abdullahi Selby, [employer] [Primary Care Provider] - 12/31/21 1:00 pm (You have beenscheduled for a follow up appointment for the following date and time, please call to reschedule if needed.) Documented By: Hema Miramontes MD 2 1640 Signed By: <Electronically signed by Hema Miramontes MD> 12/28/21 5110 [facility] Work Phone: Evaluation + Plan note Future Appointments Appointment Date:08/15/2023 11:20:00 AM Scheduled Provider:Quyen Mitchell Location:[facility].ONCOLOGY Appointment Type:ONC Office Visit New 40 (FT) Diagnostic Tests Pending * Erythropoietin Level 08/12/23 Future Scheduled Tests Laboratory* CBC w/ Auto Diff 08/08/23 * CBC w/ Auto Diff 08/22/23 * [facility] Appointment Date:09/05/2023 02:00:00 PM Scheduled Provider: Location:[facility] Appointment Type:Surgery FT Future Scheduled Tests Laboratory* CBC w/ Auto Diff 10/10/23 * CBC w/ Auto Diff 08/08/23 * CBC w/ Auto Diff 08/22/23 * Comprehensive Metabolic Panel 10/10/23 * Ferritin 10/10/23 * Folate Level 10/10/23 * Iron Level 10/10/23 * Iron Percent Saturation 10/10/23 * Transferrin 10/10/23 [facility] Evaluation + Plan note Future Appointments Appointment Date:09/05/2023 02:00:00 PM Scheduled Provider: Location:[facility] Appointment Type:Surgery FT Diagnostic Tests Pending * IgA, Quant. 09/01/23 * t-Transglutaminase (tTG) IgG 09/01/23 Future Scheduled Tests Laboratory* CBC w/ Auto Diff 10/10/23 * CBC w/ Auto Diff 08/08/23 * CBC w/ Auto Diff 08/22/23 * Comprehensive Metabolic Panel 10/10/23 * Ferritin 10/10/23 * Folate Level 10/10/23 * Iron Level 10/10/23 * Iron Percent Saturation 10/10/23 * Transferrin [facility]ments Appointment Date:10/27/2023 02:20:00 PM Scheduled Provider:Quyen Mitchell Location:[facility].ONCOLOGY Appointment Type:ONC Office Visit 20 (FT) Future Scheduled Tests Laboratory* CBC w/ Auto Diff 08/08/23 * CBC w/ Auto Diff 08/22/23 [facility] Evaluation noteNo QXL ricardo plcGoshen Filao Other Evaluation note* Diagnosis Monocular esotropia, left eye- Primary Monocular esotropia Diplopia [facility] Preoperative examination- Primary Preoperative examination, unspecified Hyperlipidemia, unspecified hyperlipidemia type Asthma, unspecified asthma severity, unspecified whether complicated, unspecified whether persistent PATRICE (obstructive sleep apnea) Obstructive sleep apnea (adult) (pediatric) H/O bariatric surgery Bariatric surgery status Steatosis of liver Other chronic nonalcoholic liver disease Bipolar affective disorder, remission status unspecified (HCC) Obesity (BMI 30-39.9) Obesity, unspecified Monocular esotropia, left eye Monocular esotropia [facility] Diagnosis Onset Date Resolution Status Acute respiratory failure with hypoxia acute Asthma exacerbation acute [facility] Work Phone: evaluation note* Diagnosis Onset Date Resolution Status Acute respiratory failure with hypoxia acute Asthma acute Asthma exacerbation acute Hypoxemia acute [facility] Work Phone: evaluation note* Diagnosis Monocular esotropia, left eye- Primary Monocular esotropia Monocular esotropia, left eye Monocular esotropia [facility] Diagnosis Monocular esotropia, left eye- Primary Monocular esotropia [facility] Diagnosis Onset Date Resolution Status Acute respiratory failure with hypoxia acute Asthma acute Asthma exacerbation acute Hypoxemia acute Asthma exacerbation acute [facility] Work Phone: evaluation note* Diagnosis Onset Date Resolution Status Acute respiratory failure with hypoxia acute Asthma acute Asthma exacerbation acute Hypoxemia acute Asthma exacerbation acute Viral illness acute [facility] Work Phone: Evaluation noteNo assessment information available [facility] Work Phone: evaluation note* Diagnosis Status post partial thyroidectomy (CMS/HCC)- Primary Other postprocedural status Other hyperparathyroidism (CMS/HCC) Other hyperparathyroidism documented in this encounter [facility] Diagnosis Status post partial thyroidectomy (CMS/HCC)- Primary Other postprocedural status Thyroid mass (CMS/HCC) Unspecified disorder of thyroid Low vitamin D level documented in this encounter [facility] note Author Nan Brand [facility] December 27, 2021 6:03pm Note Date/Time December 27, 2021 5 :46pm [facility] [address] [place] [address] Hospitalist H&P Signed Patient: Morro Maloney MR#: [id number] : 1985 Acct:[id number] Age/Sex: 36 / F Adm Date: 2 Loc: ER Room: Type: [facility] ER Attending Dr: Copies to: MYKEL HawkinsC Nan Brand MD~ HPI DATE OF EXAMINATION: 12/27/21 CHIEF COMPLAINT: Shortness of breath HISTORY OF PRESENT ILLNESS: 36 years old female with underlying history of asthma, not on any therapy, requiring intubation x1 when she was 16, presented with complaints of shortness of breath and severe wheezing with low pulse oximetry. Per patient she has been sick for couple of days due to flulike symptoms. She complained of sneezing, runny nose, some chest congestion with cough. However today she got shortness of breath associated with severe wheezing. She has beencoughing with greenish sputum production. Per patient she usually has wheezing and it is and not unusual for her through whole summer but at this time she was quite short of breath. She denied any fevers. She did have diarrhea but deniedany abdominal pain. Denied any nausea any vomiting. Denied any lower extremityswelling. Review of Systems Review of Systems Review of systems: 10 systems are reviewed and are negative apart as mentioned in H&P The patient has been seen and examined in the emergency room General -patient is awake alert oriented ?3, she did appear to be in mild distress but was able to speak in full sentences She did not appear to be lethargic. HEENT -normal oropharyngeal mucosa without any ulcers or exudates Cardiovascular -S1 plus S2, with regular rate, tachycardia, sinus rhythm on the monitor Pulmonary -wheezing and rhonchi bilaterally Gastrointestinal -abdomen is soft, nondistended, nontender, bowel sounds positive, no rigidity, no rebound Genitourinary deferred Musculoskeletal -no back tenderness, no significant joint swelling, full range of motion Neurological -no focal Skin -no significant ulcers, no rash noted Extremities - no edema in bilateral lower extremities noted Psychiatry - appropriate affect Laboratory work up, imaging studies reviewed EKG personally reviewed by me normal sinus rhythm with sinus tachycardia at 102,without acute ST-T wave changes Previous records in the computer system reviewed Chest x-ray no acute findings PMFSH Vaccinated for COVID-19?: Yes Medical History Anxiety Arthritis Asthma Bipolar disorder Hyperlipidemia Personal history of COVID-19 Polycystic ovary syndrome Sleep apnea pt. reports it's light & does not use machine Surgical History H/O gastric sleeve 06/2021 History of appendectomy History of section History of laparoscopic cholecystectomy History of parotidectomy Family History Grandparent Lung cancer Grandparent Lung cancer Father Alive and well Mother Alive and well Social History Smoking Status: Never smoker Substance Use Type: None Meds Medications and Allergies Allergies mold Allergy (Verified 12/27/21 14:32) Nasal Discharge Home Medications albuterol sulfate 90 mcg/actuation aerosol inhaler (Proventil HFA) 90 mcg inhalation DIRECTED PRN Shortness Of Breath Or Wheezing 03/31/18 [History Confirmed 12/27/21] metformin 500 mg tablet 1,500 mg PO DAILY PCOS 03/31/18 [History Confirmed 12/27/21] lurasidone 40 mg tablet (Latuda) 40 mg PO DAILY bipolar disorder 05/17/19 [History Confirmed 12/27/21] lamotrigine 200 mg tablet 200 mg PO DAILY bipolar disorder 04/11/21 [History Confirmed 12/27/21] sertraline 100 mg tablet 100 mg PO DAILY bipolar disorder 04/11/21 [History Confirmed 12/27/21] levalbuterol HCl 0.63 mg/3 mL solution for nebulization (Xopenex) 0.63 mg inhalation DIRECTED PRN wheeze 05/06/21 [History Confirmed 12/27/21] Exam Physical Exam Vital Signs: Temp Pulse Resp BP Pulse Ox O2 Del Method O2 Flow Rate 36.6 C 107 H 18 125/72 91 L Nasal Cannula 2 12/27/21 14:32 12/27/21 17:22 12/27/21 17:22 12/27/21 17:22 12/27/21 17:22 12/27/21 17:22 12/27/21 17:22 Results Lab Results Labs: Laboratory Last Values Corrected WBC 12.6 X10E3/uL (3.8-11.6) H 12/27/21 14:42 Uncorrected WBC Count 12.6 x10E3/uL (4.5-11.0) H 12/27/21 14:42 RBC 5.18 x10E6/uL (3.60-5.00) H 12/27/21 14:42 Hgb 13.7 g/dL (11.8-15.4) 12/27/21 14:42 Hct 43.3 % (34.0-46.4) 12/27/21 14:42 MCV 83.7 fl (80-100) 12/27/21 14:42 MCH 26.5 pg (24.7-34.3) 12/27/21 14:42 MCHC 31.7 g/dL (32.0-35.0) L 12/27/21 14:42 RDW 17.5 % (11.9-15.3) H 12/27/21 14:42 Plt Count 324 x10E3/uL (150-450) 12/27/21 14:42 MPV 7.7 fl (6.3-10.7) 12/27/21 14:42 Neut % (Auto) 68.0 % (.) 12/27/21 14:42 Lymph % (Auto) 23.6 % (.) 12/27/21 14:42 [place] % (Auto) 5.7 % (.) 12/27/21 14:42 Eos % (Auto) 1.9 % (.) 12/27/21 14:42 Baso % (Auto) 0.8 % (.) 12/27/21 14:42 Neut # (Auto) 8.6 x10E3/uL (1.8-7.7) H 12/27/21 14:42 Lymph # (Auto) 3.0 x10E3/uL (1.00-4.8) 12/27/21 14:42 [place] # (Auto) 0.7 x10E3/uL (0.0-0.8) 12/27/21 14:42 Eos # (Auto) 0.2 x10E3/uL (0.0-0.45) 12/27/21 14:42 Baso # (Auto) 0.1 x10E3/uL (0.0-0.2) 12/27/21 14:42 Nucleated RBC % (auto) 0.1 % (0-0.5) 12/27/21 14:42 PHA Creatinine Clear 88.19 12/27/21 14:42 Sodium 136 mmol/L (136-146) 12/27/21 14:42 Potassium 3.7 mmol/L (3.5-5.1) 12/27/21 14:54 Chloride 103 mmol/L (95-114) 12/27/21 14:42 Carbon Dioxide 18.8 mmol/L (22.0-30.0) L 12/27/21 14:42 Anion Gap mEq/L (6.0-15.0) 12/27/21 14:42 BUN 8 mg/dL (9-23) L 12/27/21 14:42 Creatinine 1.03 mg/dL (0.44-1.03) 12/27/21 14:42 Est GFR ( Amer) > 60 mL/Min 12/27/21 14:42 Est GFR (Non-Af Amer) 60 mL/Min 12/27/21 14:42 Glucose 104 mg/dL (70-100) H 12/27/21 14:42 Calcium 9.0 mg/dL (8.2-10.2) 12/27/21 14:42 Total Bilirubin 0.6 mg/dL (0.3-1.2) 12/27/21 14:54 Direct Bilirubin < 0.1 mg/dL (0.0-0.4) 12/27/21 14:54 Indirect Bilirubin TNP 12/27/21 14:54 AST 20 U/L (10-42) 12/27/21 14:54 ALT 16 U/L (10-60) 12/27/21 14:54 Alkaline Phosphatase 109 U/L (32-92) H 12/27/21 14:54 Troponin I High Sens 3 pg/mL (0-15) 12/27/21 14:42 Total Protein 6.8 gm/dL (6.1-7.9) 12/27/21 14:42 Albumin 3.9 gm/dL (3.2-5.5) 12/27/21 14:42 Globulin 2.9 gm/dL 12/27/21 14:42 Albumin/Globulin Ratio 1.3 12/27/21 14:42 SARS-CoV-2 Rap RNA(RT-PCR) Negative (Negative) 12/27/21 14:46 Microbiology Results Micro: Microbiology - Results from entire visit 12/27/21 14:46 Nasopharyngeal SARS-CoV-2, Influenza & RSV (PCR) - Final A&P - Hospitalist Assessment/Plan (1) Asthma exacerbation: Plan 1. Acute hypoxic respiratory insufficiency requiring oxygen administration due to suspected acute asthma exacerbation For now continue bronchodilators and systemic and inhaled steroids She does have leukocytosis with greenish sputum, with a sputum sample and start on azithromycin therapy 2. DVT prophylaxis Lovenox 3. Bipolar disorder, continue with home medications Documented By: Nan Brand MD 12/27/21 1742 Signed By: <Electronically signed by Nan Brand MD> 12/27/21 1803 [facility] Work Phone: History general Narrative - Reported* Type Description Date Medical History asthma Medical History PCOS Medical History bipolar Medical History panic disorder Medical History Gestational diabetes - yes Medical History Insulin Resistance Surgical History appendectomy Surgical History C section Surgical History gall bladder Hospitalization History Asthma Hospitalization History see above [facility] Other Hospital course Narrative No data available for this section [facility] Additional Instructions Do not start the prednisone for another 3 days and only if you need this Return for new or worsening symptoms Follow-up with family [facility] Work Phone: Hospital Discharge instructions No data available for this section [facility] No data available for this section [facility] Summary Purpose Family History Relationship Condition Age at Onset Recorded Date/T manfred grandparent Malignant neoplasm of lung Unknown father Alive and well Unknown Not Specified Alive and well Unknown Relationship Condition Age at Onset Recorded Date/T manfred grandparent Malignant neoplasm of lung Unknown father Alive and well Unknown mother Alive and well Unknown mother Hyperlipidemia Unknown Advance Directives Advance Directive Response Recorded Date/ Time Advance Directives No March 31, 2018 9:14pm Advance Directive Response Recorded Date/ Time Advance Directives No March 31, 2018 8:14pm Chief Complaint and Reason for Visit Chief Complaint Shortness of Breath Reason for Visit Acute respiratory fa ilure with hypoxia Asthma exacerbation Chief Complaint Shortness of Breath Reason for Visit Acute respiratory fa ilure with hypoxia Asthma Asthma exacerbation Hypoxemia Chief Complaint Shortness of Breath sob Reason for Visit Acute respiratory fa ilure with hypoxia Asthma Asthma exacerbation Hypoxemia Asthma exacerbation Chief Complaint Shortness of Breath sob Reason for Visit Acute respiratory fa ilure with hypoxia Asthma Asthma exacerbation Hypoxemia Asthma exacerbation Viral illness Chief Complaint Shortness of Breath sob Trouble breathing Reason for Visit Acute respiratory fa ilure with hypoxia Asthma Asthma exacerbation Hypoxemia Asthma exacerbation Viral illness Chief Complaint E07.9 Z01.818 Chief Complaint E07.9 Z01.818 Thyroid Nodule E07.9 Additional Source Comments INFORMATION SOURCE (unrecogn ized section and content) DATE CREATED AUTHOR 10/07/2018 [facility] DATE CREATED AUTHOR AUTHOR'S ORGANIZ ATION 11/23/2021 [facility] dical Specialist DATE CREATED AUTHOR AUTHOR'S ORGANIZ ATION 07/05/2022 [facility] DATE CREATED AUTHOR AUTHOR'S ORGANIZ ATION 08/04/2023 [facility] DATE CREATED AUTHOR AUTHOR'S ORGANIZ ATION 08/12/2023 [facility] DATE CREATED AUTHOR AUTHOR'S ORGANIZ ATION 08/13/2023 [facility] DATE CREATED AUTHOR AUTHOR'S ORGANIZ ATION 08/18/2023 [facility] DATE CREATED AUTHOR AUTHOR'S ORGANIZ ATION 09/06/2023 [facility] DATE CREATED AUTHOR AUTHOR'S ORGANIZ ATION 09/08/2023 [facility] DATE CREATED AUTHOR AUTHOR'S ORGANIZ ATION 09/12/2023 [facility] DATE CREATED AUTHOR AUTHOR'S ORGANIZ ATION 09/20/2023 [facility] DATE CREATED AUTHOR AUTHOR'S ORGANIZ ATION 09/24/2023 [facility] DATE CREATED AUTHOR AUTHOR'S ORGANIZ ATION 10/12/2023 [facility] DATE CREATED AUTHOR AUTHOR'S ORGANIZ ATION 10/28/2023 [facility] DATE CREATED AUTHOR AUTHOR'S ORGANIZ ATION 10/28/2023 [facility] DATE CREATED AUTHOR AUTHOR'S ORGANIZ ATION 11/06/2023 [facility] DATE CREATED AUTHOR AUTHOR'S ORGANIZ ATION 11/11/2023 [facility] dical Specialists [facility] DATE CREATED AUTHOR AUTHOR'S ORGANIZ ATION 12/06/2023 [facility] REASON FOR VISIT (unrecogniz ed section and content) Reason Comments Esotropia Follow Up Reason Comments Schedule Surgery Reason Comments Pre-Op Exam Reason Comments Pre-Op Exam measurements Reason Comments Patient Question Reason Comments Post Op Reason Comments Post-op 1 month jessica s/p rig ht thyroidectomy Reason Comments Post-op Post op right thyroi d Source Comments (unrecognize d section and content) In the event this informatio n is protected by the Federal Confidentiality of Alcohol and Drug Abuse Patient Records regulations: The Federal rules restrict any use of the information to criminally investigate or prosecute any alcohol or drug abuse patient.[facility] the event this information is protected by the Federal Confidentiality of Alcohol and Drug Abuse Patient Records regulations: The Federal rules restrict any use of the information to criminally investigate or prosecute any alcohol or drug abuse patient.[facility] the event this information is protected by the Federal Confidentiality of Alcohol and Drug Abuse Patient Records regulations: The Federal rules restrict any use of the information to criminally investigate or prosecute any alcohol or drug abuse patient.[facility] the event this information is protected by the Federal Confidentiality of Alcohol and Drug Abuse Patient Records regulations: The Federal rules restrict any use of the information to criminally investigate or prosecute any alcohol or drug abuse patient.[facility] the event this information is protected by the Federal Confidentiality of Alcohol and Drug Abuse Patient Records regulations: The Federal rules restrict any use of the information to criminally investigate or prosecute any alcohol or drug abuse patient.[facility] the event this information is protected by the Federal Confidentiality of Alcohol and Drug Abuse Patient Records regulations: The Federal rules restrict any use of the information to criminally investigate or prosecute any alcohol or drug abuse patient.[facility] Center[facility] the event this information is protected by the Federal Confidentiality of Alcohol and Drug Abuse Patient Records regulations: The Federal rules restrict any use of the information to criminally investigate or prosecute any alcohol or drug abuse patient.[facility] Care Teams (unrecognized sec tion and content) Team Status: Active Member Role Status Dates ERAN Pham Primary Care Provider Active Jason Milton Jr, MD Emergency Provider Active Andres Mcgee MD Admit Provider, Attending P rovider Active Team Status: Active Member Role Status Dates Abdullahi Selby , BLASTER HELPER-C Primary Care Provider Active Team Status: Inactive Member Role Status Dates Abdullahi Selby , BLASTER HELPER-C Primary Care Provider Active Jason Milton Jr, MD Emergency Provider Active Andres Mcgee MD Admit Provider Active Jp Barba DO Attending Provider Active Team Status: Active Member Role Status Dates Abdullahi Selby , BLASTER HELPER-C Primary Care Provider Active ABDIRASHID Valerio-C Emergency Provider Active Nan Brand MD Admit Provider, Attending Provide r Active Team Status: Inactive Member Role Status Dates Abdullahi Selby , BLASTER HELPER-C Primary Care Provider Active Mark Britt PA-C Emergency Provider Active Nan Brand MD Admit Provider Active Hema Miramontes MD Attending Provider Active Team Status: Inactive Member Role Status Dates Abdullahi Selby , BLASTER HELPER-C Primary Care Provider Active Jennifer Terry PA-C Emergency Provider Active Team Status: Active Member Role Status Dates Cleo Hernandez , BLASTER HELPER-C Primary Care Provider Active Team Status: Inactive Member Role Status Dates Brandon Juares DO Attending Provider Active S tart: September 26, 2023 End: September 26, 2023 Cleo Hernandez BLASTER HELPER-C Primary Care Provider Active Start: September 26, 2023 End: September 26, 2023 Team Status: Inactive Member Role Status Dates Brandon Juares DO Attending Provider Active S tart: October 05, 2023 End: October 05, 2023 Team Status: Inactive Member Role Status Dates Cleo Hernandez BLASTER HELPER-C Primary Care Provider Active Start: October 25, 2023 End: October 25, 2023 Brandon Juares DO Attending Provider Active S tart: October 25, 2023 End: October 25, 2023 Single Stroke Preformer Relationship Specialty Start Date End Date Abdullahi Selby NP [address] [place] [address] [facility] 08/21/22 Chet Isabel MD [address] [place] [address] PCP - General Family Medicine 09/20/23 Rolly Vail APRN-CORK FLOOR INSTALLER [address] [place] [phone] Nurse Practitioner Behavioral Health 08/04/22 Cleo Hernandez MD [address] [place] [address] Referring Physician Family Medicine 09/20/23 Brandon Juares DO [address] [place] [address] Otolaryngology 09/20/23 Single Stroke Preformer Relationship Specialty Start Date End Date Abdullahi Selby NP [address] [place] [address] PCP - [facility] 08/21/22 Chet Isabel MD [address] [place] [address] PCP - General Family Medicine 09/20/23 Rolly Vail APRN-CORK FLOOR INSTALLER [address] [place] [phone] Nurse Practitioner Behavioral Health 08/04/22 Cleo Hernandez MD [address] [place] [address] Referring Physician Family Medicine 09/20/23 Brandon Juares DO [address] [place] [address] Otolaryngology 09/20/23 Single Stroke Preformer Relationship Specialty Start Date End Date Abdullahi Selby NP [address] [place] [address] PCP - [facility] 08/21/22 Chet Isabel MD [address] [place] [phone] PCP - General Family Medicine 09/20/23 Rolly Vail, APPLE PICKING SUPERVISOR-CORK FLOOR INSTALLER [address] [address] Nurse Practitioner Behavioral Health 08/04/22 Cleo Hernandez MD [address] [place] [phone] Referring Physician Family Medicine 09/20/23 Brandon Juares DO [address] [place] [address] Otolaryngology 09/20/23 Single Stroke Preformer Relationship Specialty Start Date End Date Abdullahi Selby NP [address] [place] [address] PCP - [facility] 08/21/22 Chet Isabel MD [address] [place] [phone] PCP - General Family Medicine 09/20/23 Rolly Vail APPLE PICKING SUPERVISOR-CORK FLOOR INSTALLER [address] [address] Nurse Practitioner Behavioral Health 08/04/22 Cleo Hernandez MD [address] [place] [address] Referring Physician Family Medicine 09/20/23 Brandon Juares DO [address] [place] [address] Otolaryngology 09/20/23 Goals (unrecognized section and content) Goals may be documented in a n alternate section FOR RECORDS PERTAINING TO PATIENTS WHO ARE OR HAVE BEEN ENROLLED IN A CHEMICAL DEPENDENCY/SUBSTANCEABUSE PROGRAM, SOME INFORMATION MAY BE OMITTED. This clinical summary was aggregated from multiple sources. Caution should be exercised in using it in the provision of clinical care. This summary normalizes information from multiple sources, and as a consequence, information in this document may materially change the coding, format and clinical context of patient data. In addition, data may be omitted in some cases. CLINICAL DECISIONS SHOULD BE BASED ON THE PRIMARY CLINICAL RECORDS. [employer] [facility]. provides no warranty or guarantee of the accuracy or completeness of information in this document.
[2024-02-13] MEDS: IPRATROPIUM/ALBUTEROL SULFATE 3 ML AMPUL.NEB IH (19:54)
[2024-02-13] MEDS: 0.9 % SODIUM CHLORIDE 1,000 ML 1000 ML IV (20:26)
[2024-02-13] MEDS: MAGNESIUM SULFATE IN WATER 2 GM/50 ML PREMIX IV (20:26)
[2024-02-13] MEDS: METHYLPREDNISOLONE SOD SUCC PF 125 MG/2 ML VIAL IVP (20:27)
[2024-02-13 21:17] LABS: Basophils Percent Auto 0.1 % (0.2-2.0); Hematocrit 36.1 % (36.0-48.0); Hemoglobin 11.4 g/dL (12.0-16.0); Immature Granulocytes Abs Auto 0.17 10^3/uL (0.00-0.03); Immature Granulocytes Pct Auto 0.9 % (0.0-0.5); Lymphocytes Absolute Auto 0.9 10^3/uL (1.2-3.8); Lymphocytes Percent Auto 4.4 % (20.5-60.0); Mean Corpuscular HGB Conc 31.6 g/dL (29.9-35.2); Mean Corpuscular Hemoglobin 25.2 pg (26.7-34.0); Mean Corpuscular Volume 79.7 fL (81.0-99.0); Mean Platelet Volume 9.4 fL (9.5-13.5); Monocytes Absolute Auto 0.4 10^3/uL (0.3-0.8); Monocytes Percent Auto 2.1 % (1.7-12.0); Neutrophils Absolute Auto 18.4 10^3/uL (1.4-6.5); Neutrophils Percent Auto 92.5 % (43.0-75.0); Platelet Count 336 10^3/uL (150-450); Red Blood Count 4.53 10^6/uL (4.20-5.40); Red Cell Distribution Width 16.9 % (11.0-15.0); White Blood Count 19.9 10^3/uL (4.0-11.0)
[2024-02-13 21:39] LABS: Alanine Aminotransferase 11 U/L (14-59); Albumin Level 3.6 g/dL (3.4-5.0); Alkaline Phosphatase 93 U/L (46-116); Anion Gap 18.8; Aspartate Amino Transferase 8 U/L (15-37); BUN Creatinine Ratio 6.6; Bilirubin Total 0.4 mg/dL (0.2-1.0); Calcium 8.8 mg/dL (8.5-10.1); Carbon Dioxide 18.2 mmol/L (21.0-32.0); Chloride 105 mmol/L (98-107); Estimated GFR (African America 52 (>=60 mL/min/1.73m^2); Estimated GFR (Non-African Ame 43 (>=60 mL/min/1.73m^2); Globulin 3.7 g/dL; Glucose 177 mg/dL (74-106); Sodium 138 mmol/L (136-145); Total Protein 7.3 g/dL (6.4-8.2)
[2024-02-13 21:55] LABS: Influenza Virus A Antigen Negative; Influenza Virus B Antigen Negative; Internal Control Within Normal Limits; Respiratory Syncytial Virus Not Detected (NOT DETECTE); SARS-CoV-2 Ag NEGATIVE (NEGATIVE)
--- NOTE | 2024-02-13 22:44 | RESP.RT ---
Patient placed on vapotherm per order. Set up at 40 LPM and 35% FiO2 initially. Patient did not tolerate 40 LPM so it was decreased to 30 LPM
[2024-02-13] MEDS: ALPRAZOLAM 0.5 MG TABLET PO (22:50)
[2024-02-13] MEDS: AZITHROMYCIN 500 MG in 0.9 % SODIUM CHLORIDE 250 ML 250 MG IV (22:53)
[2024-02-13] MEDS: CEFTRIAXONE 1,000 MG in 0.9 % SODIUM CHLORIDE 50 ML 100 MG IV (22:53)
--- NOTE | 2024-02-13 23:06 | PC.NURSE ---
Pt was walked by this nurse with portable pulse ox to see if levels dropped as pt wanted to go home instead of being admitted to the hospital. Upon ambulation, pt O2 went as low as 79%. Pt had audible wheezing but was still alert and oriented and able to speak. results reported to physician and pt agreed to admission.
--- OUTSIDE RECORDS SUMMARY | 2024-02-13 23:59 | XMS_ITS | CCD ---
Author Organization [facility] Care Team Providers Care Specification Consultant Name Role Phone RINE, JACKELYN L Referring [...] Unavailable RINE, JACKELYN L Primary Care Unavailable MOARLES FLORES Admitting Unavailable MORALES FLORES Attending Unavailable [...] Provider Al MD Andres Evans Attending Provider [phone] DO Jp Barba Attending Provider [phone] ERAN Selby Primary Care Provider MD Jason Milton Jr Emergency Provider Al MD Andres Evans Admit Provider DO Jp Barba Attending Provider [phone] MYKEL Britt Emergency Provider MD aNn Brand Admit Provider MD Nan Brand Attending Provider MD Hema Miramontes Attending Provider MYKEL Terry Emergency Provider KELLY GUERRERO Admitting Unavailable KELLY GUERRERO Attending Unavailable MARIYA GUERREROID Consulting Unavailable WENDY ROMAN Consulting Unavailable Cleo Hernandez Primary Care Physician [phone] Cleo Hernandez Admitting Unavailable MayraCleo L Attending [...] Attending Unavailable Mayra, Cleo L Attending Unavailable Stefan Mclean Referring Unavailable Stefan Mclean Attending Unavailable MouchGermán popeamakaylan Martinez Admitting Unavailable MouchStefan pope Attending Unavailable MurDO Brandon batista Attending Provider ERAN Hernandez Primary Care Provider Quyen Garcia Attending Unavailable Demboske, Quyen Pozo Admitting Unavailable Mayra, Cleo Rivas Primary Care Unavailable Murcebety, Brandon Admitting Unavailable Murcek, Brandon Attending Unavailable Murcek, Brandon Admitting Unavailable Murcek, Brandon Attending Unavailable Murcek, Brandon Admitting Unavailable Murcek, Brandon Attending Unavailable Mayra, Cleo Rivas Primary Care Unavailable Mayra, DIRECTOR HEDIS Cleo L Admitting Unavailable Mayra, DIRECTOR HEDIS Cleo L Attending Unavailable Mayra, DIRECTOR HEDIS Cleo L Referring Unavailable Elizabeth Moise H Attending Unavailable ABDULLAHI SELBY Attending Unavailable MONY-NOSSEKROLLY Attending Unavailab le MONY-NOSSEK, ROLLY Abdul Attending Unavailab le MURCEBRANDON Albert Attending Unavailable MAYRA, CLEO Referring Unavailable MURCEK, BRANDON W Attending Unavailable MURCEK, BRANDON W Attending Unavailable MURCEKBRANDON W Attending Unavailable Demboske, [facility]- Quyen Pozo Admitting U navailable Demboske, [facility]- Quyen Pozo Attending U navailable Mayra, Cleo Rebolledo Attending Unavailable Mony-Nossek PROFESSOR OF RADIOLOGY-PLANT PHYSIOLOGIST, Rolly Abdul Unavailable Abdullahi Selby NP Unavailable [phone] Celo Hernandez MD Unavailable Brandon Juares DO Unavailable Chet Isabel MD Primary Care Provider [phone] Allergies Allergy Classification Reported Allergen(s) Allergy Type Date of Onset Reaction(s) Facility (6 sources) Mold Extract; Translations: [mold] Drug Allergy 2 Nasal Discharge [facility] (6 sources) ARIPiprazole Drug Allergy 3 [facility] (6 sources) FLUoxetine Drug Allergy 3 [facility] (6 sources) Mold Extract Drug Allergy 4 [facility] Medications Current Medications Medication Drug Class(es) Dates Sig (Normalized) Sig (Original) [id number] 200 actuat albuterol 0.09 mg/actuat metered dose inhaler (20 sources) beta2-Adrenergic Agonist Start: 08-24-2023 albuterol HFA 90 mcg/act inhaler Indications: Moderate asthma with acute exacerbation, unspecified whether persistent ([facility]) , Wheezing , Chest congestion INHALE 2 [...] / neomycin 3.5 mg/ml / polymyxin b [id number] unt/ml ophthalmic suspension (2 sources) Aminoglycoside Antibacterial, [...] mouth every week ergocalciferol (Drisdol) 1.25 MG (78309 UT) capsule Indications: Low vitamin D level Take 1 capsule (1.25 mg) by mouth 1 (one) time per week for 12 doses 4 capsule 2 10/12/2023 12/29/2023 Active Start: 06-08-2021 End: 09-28-2022 take 1 capsule by mouth every week, then take 1 capsule by mouth every month Ergocalciferol (Vitamin D2) Discontinued 49615 UNIT PO As Directed June 08, 2021 [...] capsules Orally twice daily; Note: Source Status: [id number] chronic pain; Refills: 0; Qty: 120 capsules; [...] day(s), # 21 tab(s), Refills(s) 0, Pharmacy: [facility]/pharmacy #[id number], 161, cm, 08/01/23 14:17:00 EDT, Height/Length [...] Daily, # 30 tab(s), Refills(s) 0, Pharmacy: [facility], 161, cm, 10/18/22 14:05:00 EDT, [...] q4hr for wheezing, 18 gram, Refill(s) 11, [facility]/pharmacy #[id number], 161, cm, 09/21/23 15:12:00 EDT, Height/Length Dosing, 108, kg, 09/21/23 15:12:00 EDT, Weight Dosing Start Date: 10/07/23 Status: Ordered Start: 12-31-2022 take 2 puff(s) by in halation every four hours for wheezing Ventolin HFA 90 mcg/inh Aerosol-Adpt 2 puff(s), Inhalation, q4hr for wheezing, 18 gram, Refill(s) 5, [facility]/pharmacy #[id number], 161, cm, 10/18/22 14:05:00 EDT, Height/Length Dosing, 105.6, kg, 10/18/22 13:58:00 EDT, Weight Dosing Start Date: 12/31/22 Status: Ordered Start: 10-18-2022 take 2 puff(s) by in halation every four hours for wheezing Ventolin HFA 90 mcg/inh Aerosol-Adpt 2 puff(s), Inhalation, q4hr for wheezing, 18 gram, Refill(s) 0, [facility], 161, cm, 10/18/22 14:05:00 EDT, Height/Length Dosing, 105.6, kg, 10/18/22 13:58:00 EDT, Weight Dosing Start Date: 10/18/22 Status: Ordered Completed/Discontinued Medications Medication Drug Class(es) Dates Sig (Normalized) Sig (Original) acetaminophen 325 mg / HYDROcodone bitartrate 5 mg oral tablet (8 sources) Opioid Agonist Start: 05-17-2019 End: 04-11-2021 take 1 tablet by mouth four times daily Hydrocodone-Acetamin ophen ([place]) 5-325 mg tablet Discontinued 1 TAB PO [...] 07-17-2022 Chronic Other aftercare (1 source) Other custodial (current) drug therapy; Translations: [OTH INTERMEDIATE CURRENT DRUG THERAPY] Onset: 06-30-2022 Episodic Other [...] choosing us for your care. Normal [facility] Noteon 12-05-2023 Family [...] Daily, # 30 tab(s), Refills(s) 0, Pharmacy: [facility]/pharmacy #[id number], 161, cm, 12/05/23 14:58:00 EDT, Height/Length Dosing, 111.3, kg, 12/05/23 14:58:00 EDT, Weight Dosing topiramate, 25 mg = 1 tab(s), Oral, Daily, # 30 tab(s), Refills(s) 2, Pharmacy: [facility]/pharmacy #[id number], 161, cm, 12/05/23 14:58:00 EDT, Height/Length Dosing, 111.3, kg, 12/05/23 14:58:00 EDT, Weight Dosing 2. 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 BMI 40.0-44.9, adult (Z68.41: Body mass index [BMI] 40.0-44.9, adult) pt would like to try adipex and topamax Ordered: phentermine, 37.5 mg = 1 tab(s), Oral, Daily, # 30 tab(s), Refills(s) 0, [id number], cm, 12/05/23 14:58:00 EDT, Height/Length Dosing, 111.3, kg, 12/05/23 14:58:00 EDT, Weight Dosing topiramate, 25 mg = 1 tab(s), Oral, Daily, # 30 tab(s), Refills(s) 2, [id number], 161, cm, 12/05/23 14:58:00 EDT, Height/Length Dosing, 111.3, kg, 12/05/23 14:58:00 EDT, Weight Dosing 4. Obesity due to excess calories (E66.09: Other obesity due to excess calories) see above Ordered: phentermine, 37.5 mg = 1 tab(s), Oral, Daily, # 30 tab(s), Refills(s) 0, [id number] 161, cm, 12/05/23 14:58:00 EDT, Height/Length Dosing, 111.3, kg, 12/05/23 14:58:00 EDT, Weight Dosing topiramate, 25 mg = 1 tab(s), Oral, Daily, # 30 tab(s), Refills(s) 2, [id number], 161, cm, 12/05/23 14:58:00 EDT, Height/Length Dosing, 111.3, kg, 12/05/23 14:58:00 EDT, Weight Dosing 5. Non-smoker (Z78.9: Other specified health status) continue not smoking Ordered: phentermine, 37.5 mg = 1 tab(s), Oral, Daily, # 30 tab(s), Refills(s) 0, [id number], 161, cm, 12/05/23 14:58:00 EDT, Height/Length Dosing, 111.3, kg, 12/05/23 14:58:00 EDT, Weight Dosing topiramate, 25 mg = 1 tab(s), Oral, Daily, # 30 tab(s), Refills(s) 2, [id number], 161, cm, 12/05/23 14:58:00 EDT, Height/Length [...] mRNA BNT-16 (more content not included)... Normal [facility] Comment on above: Result Comment: Elec tronically Signed By: Mayra ALVAREZ, Cleo Rebolledo\.br\Date and Time Signed: 12/05/23 15:17 EDT CBC w/ Auto Diffon 4 Basophils/100 WBC (Bld) 0.6 % Normal 0.0-2.0 [facility] Comment on above: Performed By: #### 2 [id number] #### [facility] [address] [place] [address] Basophils/Leukocytes Auto (Bld) [Pure # fraction] 0.1 E9/L Normal 0.0-0.2 [facility] Comment on above: Performed By: #### 2 [id number] #### [facility] [address] [place] [address] Eosinophils (Bld) [#/Vol] 0.4 E9/L Normal 0.0-0.5 [facility] Comment on above: Performed By: #### 2 779127 #### [facility] [address] [place] [address] Eosinophils/100 WBC (Bld) 3.8 % Normal 0.0-8.0 [facility] Comment on above: Performed By: #### 2 [id number] #### [facility] [address] [place] [address] Erythrocyte distribution width (RBC) [Ratio] 22.4 % High 10.9-14.2 [facility] Comment on above: Performed By: #### 2 [id number] #### [facility] [address] [place] [address] Hematocrit (Bld) [Volume fraction] 35.4 % Normal 34.0-46.0 [facility] Comment on above: Performed By: #### 2 [id number] #### [facility] [address] [place] [address] Hemoglobin (Bld) [Mass/Vol] 11.3 g/dL Low 12.0-16.0 [facility] Comment on above: Performed By: #### 2 067539 #### [facility] [address] [place] [address] Hypochromia Auto Ql (Bld) PRESENT Invalid Interpretation Code [facility] Comment on above: Performed By: #### 2 [id number] #### [facility] [address] [place] [address] Lymphocytes (Bld) [#/Vol] 2.5 E9/L Normal 1.0-4.0 [facility] Comment on above: Performed By: #### 2 973957 #### [facility] [address] [place] [address] Lymphocytes/100 WBC (Bld) 26.9 % Normal 14.0-50.0 [facility] Comment on above: Performed By: #### 2 712858 #### [facility] [address] [place] [address] MCH (RBC) [Entitic mass] 23.6 pg Low 27.0-34.0 [facility] Comment on above: Performed By: #### 2 183219 #### [facility] [address] [place] [address] MCHC (RBC) [Mass/Vol] 31.9 g/dL Normal 31.4-36.0 [facility] Comment on above: Performed By: #### 2 [id number] #### [facility] [address] [place] [address] MCV (RBC) [Entitic vol] 73.9 fL Low 80.0-100.0 [facility] Comment on above: Performed By: #### 2 [id number] #### [facility] [address] [place] [address] Microcytes Ql (Bld) PRESENT Invalid Interpretation Code [facility] Comment on above: Performed By: #### 2 [id number] #### [facility] [address] [place] [address] Monocytes (Bld) [#/Vol] 0.4 E9/L Normal 0.2-1.0 [facility] Comment on above: Performed By: #### 2 [id number] #### [facility] [address] [place] [address] Neutrophils (Bld) [#/Vol] 5.9 E9/L Normal 2.0-7.5 [facility] Comment on above: Performed By: #### 2 751504 #### [facility] [address] [place] [address] Neutrophils/100 WBC (Bld) 64.1 % Normal 36.0-75.0 [facility] Comment on above: Performed By: #### 2 644379 #### [facility] [address] [place] [address] Ovalocytes LM Ql (Bld) PRESENT Invalid Interpretation Code [facility] Comment on above: Performed By: #### 2 [id number] #### [facility] [address] [place] [address] Platelet mean volume (Bld) [Entitic vol] 7.4 fL Normal 6.4-10.8 [facility] Comment on above: Performed By: #### 2 [id number] #### [facility] [address] [place] [address] Platelets (Bld) [#/Vol] 331.0 E9/L Normal 150.0-500.0 [facility] Comment on above: Performed By: #### 2 [id number] #### [facility] [address] [place] [address] RBC (Bld) [#/Vol] 4.8 E12/L Normal 4.3-5.9 [facility] Comment on above: Performed By: #### 2 [id number] #### [facility] [address] [place] [address] RBC size Nom (Bld) SEE MORPHOLOGY Invalid Interpretation Code [facility] Comment on above: Performed By: #### 2 [id number] #### [facility] [address] [place] [address] WBC corrected for nucl RBC Auto (Bld) [#/Vol] 9.2 E9/L Normal 4.0-11.0 [facility] Comment on above: Performed By: #### 2 [id number] #### [facility] [address] [place] [address] CHEMISTRYOrdered By: SYSTEM SYSTEM on 10-26-2023 Albumin [...] 10-26-2023 Albumin [Mass/Vol] 4.4 g/dL Normal 3.3-5.0 [facility] Comment on above: Performed By: #### 2 278464 #### [facility] [address] [place] [address] Albumin/Globulin (S) [Mass conc ratio] 1.4 Normal 1.1-2.2 [facility] Comment on above: Performed By: #### 2 824309 #### [facility] [address] [place] [address] ALP [Catalytic activity/Vol] 95 Int._Unit/L Normal 21-98 [facility] Comment on above: Performed By: #### 2 [id number] #### [facility] [address] [place] [address] ALT No additional P-5'-P [Catalytic activity/Vol] 12 Int._Unit/L Normal 6-46 [facility] Comment on above: Performed By: #### 2 [id number] #### [facility] [address] [place] [address] Anion gap [Moles/Vol] 13 mmol/L Normal 6-16 [facility] Comment on above: Performed By: #### 2 171271 #### [facility] [address] [place] [address] AST [Catalytic activity/Vol] 17 Int._Unit/L Normal 5-43 [facility] Comment on above: Performed By: #### 2 [id number] #### [facility] [address] [place] [address] Bilirubin [Mass/Vol] 0.5 mg/dL Normal 0.0-1.1 [facility] Comment on above: Performed By: #### 2 295832 #### [facility] [address] [place] [address] Calcium [Mass/Vol] 9.3 mg/dL Normal 8.9-11.1 [facility] Comment on above: Performed By: #### 2 676211 #### [facility] [address] [place] [address] Chloride [Moles/Vol] 101 mmol/L Normal 101-111 [facility] Comment on above: Performed By: #### 2 476615 #### [facility] [address] [place] [address] CO2 [Moles/Vol] 25 mmol/L Normal 21-31 [facility] Comment on above: Performed By: #### 2 [id number] #### [facility] [address] [place] [address] Creatinine [Mass/Vol] 1.0 mg/dL Normal 0.5-1.3 [facility] Comment on above: Performed By: #### 2 [id number] #### [facility] [address] [place] [address] Globulin (S) [Mass/Vol] 3.2 g/dL Normal 1.4-4.0 [facility] Comment on above: Performed By: #### 2 216086 #### [facility] [address] [place] [address] Glucose [Mass/Vol] 121 mg/dL Normal 55-199 [facility] Comment on above: Performed By: #### 2 983589 #### [facility] [address] [place] [address] Potassium [Moles/Vol] 4.0 mmol/L Normal 3.5-5.3 [facility] Comment on above: Performed By: #### 2 936005 #### [facility] [address] [place] [address] Protein [Mass/Vol] 7.6 g/dL Normal 6.0-7.8 [facility] Comment on above: Performed By: #### 2 799910 #### [facility] [address] [place] [address] Sodium [Moles/Vol] 135 mmol/L Normal 135-145 [facility] Comment on above: Performed By: #### 2 357253 #### [facility] [address] [place] [address] Urea nitrogen [Mass/Vol] 9 mg/dL Normal 5-21 [facility] Comment on above: Performed By: #### 2 [id number] #### [facility] [address] [place] [address] Urea nitrogen/Creatinine [Mass ratio] 9 No Units Low 10-20 [facility] Comment on above: Performed By: #### 2 [id number] #### [facility] [address] [place] [address] Ferritinon 10-26-2023 Ferritin [Mass/Vol] 9 ng/mL Low 11-307 [facility] Comment on above: Performed By: #### 2 [id number] #### [facility] [address] [place] [address] Folateon 10-26-2023 Folate [Mass/Vol] 13.8 ng/mL Normal >=6.7 [facility] Comment on above: Performed By: #### 2 [id number] #### [facility] [address] [place] [address] HEMATOLOGYOrdered By: SYSTEM SYSTEM on 10-26-2023 Basophils/100 [...] Comment on above: Performed By: #### 2 [id number] #### [facility] [address] [place] [address] Iron Saturationon 10-26-2023 Iron binding capacity [Mass/Vol] 367 microgram/dL Normal 250-400 [facility] Comment on above: Performed By: #### 2 769445 #### [facility] [address] [place] [address] Iron saturation [Mass fraction] 10 % Low 20-50 [facility] Comment on above: Performed By: #### 2 [id number] #### [facility] [address] [place] [address] Transferrinon 10-26-2023 Transferrin [Mass/Vol] 262 mg/dL Normal 200-370 [facility] Comment on above: Performed By: #### 2 655949 #### [facility] [address] [place] [address] eGFRon 10-26-2023 eGFR 73 mL/min/1.73 m2 Normal >=59 [facility] Comment on above: Order Comment: Order added by Discern Expert. Performed By: #### 1 [id number] #### [facility] [address] [place] [address] Calcium [Mass/volume] in Ser um or PlasmaOrdered By: Brandon Juares on 10-25-2023 Calcium [Mass/Vol] 9.0 mg/dL Normal 8.6-10.3 [facility] Comment on above: Performed By: #### T SH3, [id number], CA, T4T, T3T #### [address] Parathyrin.intact [Mass/volu me] in Serum or PlasmaOrdered By: Brandon Juares on 10-25-2023 Parathyrin.intact [Mass/Vol] 97.1 pg/mL High [facility] Parathyroid Hormone Intacton 10-25-2023 Parathyroid Hormone Intact 97.1 pg/mL High [facility] Comment on above: Result Comment: PERF ORMED BY: [place] [address] PATHOLOGIST REBEAMER KIRSTEN CHOW M.D. Performed By: #### P TH #### [address] Thyrotropin [Units/volume] i n Serum or PlasmaOrdered By: Brandon Juares on 10-25-2023 TSH Qn 4.38 m[IU]/L Normal 0.45-5.33 [facility] Comment on above: Performed By: #### T SH3, [id number], CA, T4T, T3T #### [address] Thyroxine (T4) [Mass/volume] in Serum or PlasmaOrdered By: Brandon Juares on 10-25-2023 T4 [Mass/Vol] 7.13 ug/dL Normal 5.39-11.82 [facility] Comment on above: Performed By: #### T SH3, [id number], CA, T4T, T3T #### [address] Triiodothyronine (T3) Totalo n 10-25-2023 Triiodothyronine (T3) Total 0.58 ng/mL Low 0.87-1.78 [facility] Comment on above: Performed By: #### T SH3, [id number], CA, T4T, T3T #### [address] Vitamin D 25 Hydroxy Totalon 10-25-2023 Vitamin D 25 Hydroxy Total 35.1 ng/mL Normal 30-100 [facility] Comment on above: Result Comment: ROBERT MIN D STATUS 25([place])VITAMIN D RANGE (ng/mL) Deficient <20 Insufficient 20 to <30 Sufficient 30 to 100 Reference: Joby Galicia, Olesya DOWLING, et al. Evaluation,treatment, and prevention of vitamin D deficiency; an Endocrine Society clinical practice guideline. JCEM. 2010; 96(7):1911-30. PERFORMED BY: [place] [address] PATHOLOGIST REBEAMER KIRSTEN CHOW M.D. Performed By: #### T SH3, [id number], CA, T4T, T3T #### [address] Vitamin D+Metabolites [Mass/ volume] in Serum or PlasmaOrdered By: Brandon Juares on 10-25-2023 Vitamin D+Metabolites [Mass/Vol] 35.1 ng/mL 30-100 [facility] Comment on above: VITAMIN D STATUS 25( [place])VITAMIN D RANGE (ng/mL) Deficient <20 Insufficient 20 to <30Sufficient 30 to 100Reference: Joby Galicia, Olesya DOWLING, et al. Evaluation,treatment, and prevention of vitamin D deficiency; an Endocrine Society clinical practice guideline. JCEM. 2010; 96(7):1911-30. SURGICAL PATHOLOGY REFERENCE LAB CONSULTon 10-10-2023 CASE REPORT Normal [facility] Comment on above: Order Comment: Speci men Type: FORMALIN-FIXED PARAFFIN-EMBEDDED TISSUE SPECIMEN Ordering Facility: [facility] Address: [address] [place] [id number] Result Comment: Surg ical Pathology Report Case: [id number] Authorizing Provider: Nilesh Heck, Collected: 10/10/2023 10:43 PM Ordering Location: [facility] Received: 10/10/2023 10:43 PM [facility] Pathologist: Rachel Pereyra MD Specimen: Slide(s), 6 SLIDES [id number] Performed By: #### L [id number] #### [facility] CLIA [id number] [address] [place] [address] OF [facility] CLINICAL HISTORY CONSULT REQUESTED Normal [facility] Comment on above: Order Comment: Speci men Type: FORMALIN-FIXED PARAFFIN-EMBEDDED TISSUE SPECIMEN Ordering Facility: [facility] Address: [address] [place] [address] Performed By: #### L [id number] #### [facility] CLIA [id number] [address] [place] [address] DIAGNOSIS COMMENT Thank you for maymarcos kimberly this case. We would classify the 1.9 cm nodule with variably sized thyroid follicles within the spectrum of thyroid follicular nodular disease. No nuclear changes of papillary thyroid carcinoma is appreciated. Select slides were reviewed by my colleague, Dr. Tirso Mack and he agrees with the interpretation. [facility] Comment on above: Order Comment: Speci men Type: FORMALIN-FIXED PARAFFIN-EMBEDDED TISSUE SPECIMEN Ordering Facility: [facility] Address: [address] [place] [address] Performed By: #### L [id number] #### [facility] CLIA [id number] [address] [place] [address] FINAL DIAGNOSIS Normal [facility] Comment on above: Order Comment: Speci men Type: FORMALIN-FIXED PARAFFIN-EMBEDDED TISSUE SPECIMEN Ordering Facility: [facility] Address: [address] [place], [place] [phone] Result Comment: A. 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 - Intrathyroidal parathyroid gland tissue, 0.1 cm. Performed By: #### L [id number] #### [facility] CLIA [id number] [address] [place] [address] OF [facility] FINAL PERFORMING LAB Normal [facility] Comment on above: Order Comment: Speci men Type: FORMALIN-FIXED PARAFFIN-EMBEDDED TISSUE SPECIMEN Ordering Facility: [facility] Address: [address] [place] [phone] Result Comment: Diag nostic interpretation performed at [facility], [address] [place] [address] CLIA# [id number] Volleyball Assembler: Asael Clarke M.D. Performed By: #### L [id number] #### [facility] CLIA [id number] [address] [place] [address] [id number] OF [facility] Beto 10-05-2023 L Specimen: [id number] Received: 10/05/23 Status: MOY Castaneda Num: [id number] Spec Type: Surgical Subm Dr: Brandon Juares DO Tissues: A THYROID - Lobe (RIGHT THYROID LOBE AND ISTHM) Procedures: HE/7, Gross/Micro L5 Age/ Patient Sex Location Account Attending Physician Morro Maloney 38/F [place] [id number] Brandon Juares DO SPEC NUM: [id number] RECD: 10/05/23 STATUS: MOY CASTANEDA NUM: [id number] PEGGY: 10/05/23 DR: Brandon Juares DO ENTERED: 10/05/[address] [facility] DR: Rachid [facility] SPEC TYPE: Surgical DEPT: S ENTERED BY: [id number] RECV BY: [id number] ORDERED: HE/7, Gross/Micro L5 ORDERED: HE/7, Gross/Micro L5 Supplemental Report Addendum 1 Entered: 10/11/23 This case was sent to [facility] for consultation. 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 Intrathyroidal parathyroid gland tissue, 0.1 cm. Please see attached consultation report from [facility] for diagnostic details. Addendum Signed (signature on file) Nilesh Eckert MD 10/11/23 1547 Pathological Diagnosis Preliminary report Nodule, right thyroid lobe, hemithyroidectomy: Atypical thyroid neoplasm. Pending external consultation. Specimen: [id number] Received: 10/05/23 Status: MOY Castaneda Num: [id number] Spec Type: Surgical Subm Dr: Brandon Juares DO Tissues: A THYROID - Lobe (RIGHT THYROID LOBE AND ISTHM) Procedures: BRISEIDA, Gross/Micro L5 Patient: Morro Maloney [id number] (Continued) Specimen: [id number] Received: 10/05/23 (Continued) Signed (signature on file) Nilesh Eckert MD 10/06/23 1712 Specimen: [id number] Received: 10/05/23 Status: MOY Wilsoncourtney Num: [id number] Spec Type: Surgical Subm Dr: Brandon Juares DO Tissues: A THYROID - Lobe (RIGHT THYROID LOBE AND ISTHM) Procedures: Adri, Gross/Micro L5 Patient: HaiderMorro Sara [id number] (Continued) Specimen: [id number] Received: 10/05/23 (Continued) Clinical Information Thyroid nodule [...] thyroid parenchyma is red-brown, beefy and unremarkable. Marriage And Family Counselor sections are sequentially submitted from superior to inferior in A1?A6 as follows: A1: Normal-appearing parenchyma A2: Hemorrhagic cystic nodule A3-A6: Rubbery cyst (A6-following decalcification) CPT Codes 99696 Specimen: [id number] Received: 10/05/23 Status: MOY Castaneda Num: [id number] Spec Type: Surgical Subm Dr: Brandon Juares DO Tissues: A THYROID - Lobe (RIGHT THYROID LOBE AND ISTHM) Procedures: ABBY/Adri, Gross/Micro L5 Patient: HaiderMorro Sara [id number] (Continued) Signed (signature on file) Nilesh Eckert MD 10/06/23 9383 Normal [facility] Basic Metabolic Panelon GFR/1.73 sq M.predicted MDRD (S/P/Bld) [Vol rate/Area] mL/min/{1.73_m2} Normal [facility] Comment on above: Performed By: #### B SUSANA, TSH3 #### [facility] [address] [place] [address] [place] Calcium [Mass/volume] in Ser um or PlasmaOrdered By: Brandon Juares on 09-26-2023 Calcium [Mass/Vol] 8.9 mg/dL Normal 8.6-10.3 [facility] Comment on above: Performed By: #### B SUSANA, TSH3 #### [facility] [address] [place] [address] [place] Carbon dioxide, total [Moles /volume] in Serum or PlasmaOrdered By: Brandon Juares on 09-26-2023 CO2 [Moles/Vol] 25.8 mmol/L Normal 21.0-31.0 [facility] Comment on above: Performed By: #### B SUSANA, TSH3 #### [facility] [address] [place] [address] [place] Chloride [Moles/volume] in S alice or PlasmaOrdered By: Brandon Juares on 09-26-2023 Chloride [Moles/Vol] 103 mmol/L Normal 98-107 [facility] Comment on above: Performed By: #### B SUSANA, TSH3 #### [address] Creatinine [Mass/volume] in Serum or PlasmaOrdered By: Brandon Juares on 09-26-2023 Creatinine [Mass/Vol] 0.99 mg/dL Normal 0.60-1.20 [facility] Comment on above: Performed By: #### B SUSANA, TSH3 #### [facility] [address] ECG 12 lead ECGon 09-26-2023 ECG 12 lead ECG [facility] Main [place] [address] [place] [address] Electrocardiograph Report Signed Patient: Morro Maloney MR#: [id number] 8 : 1985 Acct:[id number] Age/Sex: 38 / F ADM Date: 09/26/23 Loc: Room: Type: [facility] Attending Dr: Brandon Juares DO Ordering Provider: [...] DO 4 1900 Normal [facility] Glucose [Mass/volume] in Ser um or PlasmaOrdered By: Brandon Juares on 09-26-2023 Glucose [Mass/Vol] 87 mg/dL Normal 70-100 [facility] Comment on above: ADA recommended refe rence rangeRandom Glucose Reference Range is dependent on time and content of last meal. Glucose of more than 200 mg/dL in a nonstressed, ambulatory subject supports the diagnosis of Diabetes Mellitus. Result Comment: [place] Glucose Reference Range is dependent on time and content of last meal. Glucose of more than 200 mg/dL in a nonstressed, ambulatory subject supports the diagnosis of Diabetes Mellitus. ADA recommended reference range Performed By: #### B SUSANA TSH3 #### [address] No Panel InformationOrdered By: Brandon Juares on 09-26-2023 Estimated GFR (CKD-EPI) > 60.0 mL/Min [facility] Creatinine Clearance (Chem N/A [facility] Parathyrin.intact [Mass/volu me] in Serum or PlasmaOrdered By: Brandon Juares on 09-26-2023 Parathyrin.intact [Mass/Vol] 102.0 pg/mL High [facility] Parathyroid Hormone Intacton 09-26-2023 Parathyroid Hormone Intact 102.0 pg/mL High [facility] Comment on above: Result Comment: PERF ORMED BY: [place] [address] PATHOLOGIST REBEAMER KIRSTEN CHOW M.D. Performed By: #### P TH #### [address] Potassium [Moles/volume] in Serum or PlasmaOrdered By: Brandon Juares on 09-26-2023 Potassium [Moles/Vol] 4.4 mmol/L Normal 3.5-5.1 [facility] Comment on above: Performed By: #### B SUSANA TSH3 #### [address] Serum or plasma anion gap de terminationOrdered By: Brandon Juares on 09-26-2023 Anion gap [Moles/Vol] 10.6 mmol/L Normal 6.0-15.0 [facility] Comment on above: Performed By: #### B SUSANA, TSH3 #### [address] Sodium [Moles/volume] in Ser um or PlasmaOrdered By: Brandon Juares on 09-26-2023 Sodium [Moles/Vol] 135 mmol/L Low 136-145 [facility] Comment on above: Performed By: #### B SUSANA, TSH3 #### [facility] [address] Thyrotropin [Units/volume] i n Serum or PlasmaOrdered By: Brandon Juares on 09-26-2023 TSH Qn 1.49 m[IU]/L Normal 0.45-5.33 [facility] Comment on above: Result Comment: PERF ORMED BY: [place] [address] PATHOLOGIST REBEAMER KIRSTEN CHOW M.D. Performed By: #### B SUSANA, TSH3 #### [address] Urea nitrogen [Mass/volume] in Serum or PlasmaOrdered By: Brandon Juares on 09-26-2023 Urea nitrogen [Mass/Vol] 15 mg/dL Normal 7-25 [facility] Comment on above: Performed By: #### B SUSANA, TSH3 #### [address] Gastroenterology Office/Clin ic Noteon 09-21-2023 Gastroenterology [...] (COVID-19) mRNA BNT-162b2 vax 03/12/2020 Recorded Normal [facility] Comment on above: Result Comment: Elec tronically Signed By: Vinay INGRAM, Stefan Martinez\.br\Date and Time Signed: 09/21/23 15:30 EDT Surgical Pathology Reporton 09-08-2023 Surgical Pathology Report [facility] [address] [facility] [place] [address]- Surgical Pathology Report Collected Date/Time: 09/05/2023 13:21 [...] is entirely submitted in one cassette. (DC) DC:[facility] Microscopic Description A&B: Microscopic examination performed unless gross only specified. The use of one or more reagents in the above tests is regulated as an analyte specific reagent (ASR). The test or tests are ordered following initial H&E microscopic examination. The performance characteristics were determined by the Laboratory of [facility]. They have not been cleared or approved by the US Food and Drug Administration. The FDA has determined that such clearance or approval is not necessary. These tests are used for clinical purposes. They should not be regarded as investigational or for research. Appropriate positive and negative controls are performed and are acceptable. Normal [facility] Comment on above: Performed By: #### 4 [id number] #### [facility] [address] [place] [address] Main OR Intraoperative Recor don 09-07-2023 Main OR Intraoperative Record Main OR Intraoperative Record IntraOp Document Type FT Summary Primary Physician: Vinay INGRAM, Stefan Martinez Finalized Date/Time: 09/07/23 14:37:49 Pt. Name: MORRO MALONEY/Sex: 1985 Female Med Rec #: [id number] Physician: Vinay INGRAM, Stefan Martinez Financial #: [id number] Pt. Type: O Room/Bed: / Admit/Disch: 09/05/23 [...] Attendee Vaibhav MERCADO, Pipe Mclean MD, Stefan Fatmia RN, Cinthya Role Performed Anesthesiologist Surgeon - Primary Slot Operations Director - Primary Crop Research Scientist Time In 09/05/23 13:05:00 09/05/23 13:05:00 09/05/23 [...] and tissue Entry 1 Skin Integrity Intact, [place], Warm, and Skin Abnormality No Dry Outcomes Met? Yes Last Modified By: Cinthya Fatima RN 09/05/23 13:18:54 Post-Care Text: The patient is free from signs and symptoms of injury caused by extraneous objects Patient Positioning FT Pre-Care Text: Identifies physical alterations that require additional precautions for procedure-specific (more content not included)... Normal [facility] Discharge Instructionson Discharge Instructions Discharge Instruc [...] Follow Up with Stefan Mclean MD, [facility] When: Comments: Call for any problems. The [...] Document Re-Released: 08/01/2006 ExitCare? Patient Information ?2009 [employer]. Hemorrhoids Hemorrhoids are swollen veins that may [...] This cond (more content not included)... Normal [facility] Comment on above: Result Comment: Elec [...] q4hr for wheezing, 18 gram, Refill(s) 5, [facility]/pharmacy #[id number], 161, cm, 10/18/22 14:05:00 EDT, Height/Length Dosing, 105.6, kg, 10/18/22 13:58:00 EDT, Weight Dosing folic acid 1 mg Tab: 1 mg = 1 tab(s), Oral, Daily, # 90 tab(s), Refills(s) 4, Pharmacy: [facility]/pharmacy #[id number], 161, cm, 08/15/23 11:32:00 EDT, Height/Length [...] duodenum. Biopsies obtained Images Procedure images: Rec_hd_video_ [id number].jpg Rec_hd_video_ [id number].jpg Rec_hd_video_ [id number].jpg Rec_hd_video_ [id number].jpg Rec_hd_video_ [id number].jpg Rec_hd_video_ [id number].jpg Rec1_hd_video_ [id number].jpg . Post-Procedure Complications: none. Estimated blood loss: minimal. Specimens: sent to pathology. Devices/ implants: none left in place. Impression and Plan small hiatal hernia Irregular Z-line Evidence of previous gastric sleeve Gastropathy Recommendations: -Resume previous diet -Resume home medications -Await pathology results, follow in GI clinic in 1-2 after discharge Normal [facility] Comment on above: Other Comment: Felipa gonzalez Attachment - attachment storage system not supported [id number] Can be viewed in source system Missing Attachment - attachment storage system not supported [id number] Can be viewed in source system Missing Attachment - attachment storage system not supported [id number] Can be viewed in source system Missing Attachment - attachment storage system not supported [id number] Can be viewed in source system Missing Attachment - attachment storage system not supported [id number] Can be viewed in source system Missing Attachment - attachment storage system not supported [id number] Can be viewed in source system Missing Attachment - attachment storage system not supported [id number] Can be viewed in source system Main OR PACU I Recordon 08-21 Main OR PACU I Record Main OR PACU I Rec ord PACU Phase I Document Type FT Summary Primary Physician: Stefan Mclean MD Finalized Date/Time: 09/05/23 14:28:48 Pt. Name: MORRO MALONEY/Sex: 1985 Female Med Rec #: [id number] Physician: Stefan Mclean MD Financial #: [id number] Pt. Type: O Room/Bed: / Admit/Disch: 09/05/23 [...] By: Veda Narayanan I 09/05/23 14:28 Normal [facility] Main OR Preoperative Recordo n 09-05-2023 Main OR Preoperative Record Main OR Preoperative Record Holding Area Document Type FT Summary Primary Physician: Stefan Mclean MD Finalized Date/Time: 09/05/23 12:58:13 Pt. Name: MORRO MALONEY/Sex: 1985 Female Med Rec #: [id number] Physician: Stefan Mclean MD Financial #: [id number] Pt. Type: O Room/Bed: / Admit/Disch: 09/05/23 [...] By: Elizabeth Christina RN 09/05/23 12:58 Normal [facility] IgA, Quant.on 09-03-2023 IgA [Mass/Vol] 85 mg/dL Low 87-352 [facility] Comment on above: Result Comment: Perf ormed at: [address] [id number] PhD Susan Cadet Performed By: #### 1 [id number] #### [facility] [address] [place] [address] T-TG IGGon 09-03-2023 tTG IgG Qn (S) 2 unit/mL Invalid Interpretation Code 0-5 [facility] Comment on above: Result Comment: Nega tive 0 - 5 Weak Positive 6 - 9 Positive >9 Performed at: [address] [id number] PhD Susan Cadet Performed By: #### 1 [id number] #### [facility] [address] [place] [address] Ambulatory Visit Summaryon 0 09-01-2023 Ambulatory Visit [...] Will Contact You Regarding These Appointment s\.br\ [facility] External Ambulatory Referral, ENT, Dr. Clarke, Needs biopsy of thyroid nodule, 08/29/23 7:57:00 EDT, Thyroid nodule [facility] CBC w/ Auto Diffon 4 Anisocytosis Ql (Bld) PRESENT Invalid Interpretation Code [facility] Comment on above: Performed By: #### 2 [id number] #### [facility] [address] [place] [address] Basophils/100 WBC (Bld) 0.4 % Normal 0.0-2.0 [facility] Comment on above: Performed By: #### 2 [id number] #### [facility] [address] [place] [address] Basophils/Leukocytes Auto (Bld) [Pure # fraction] 0.0 E9/L Normal 0.0-0.2 [facility] Comment on above: Performed By: #### 2 [id number] #### [facility] [address] [place] [address] Eosinophils (Bld) [#/Vol] 0.0 E9/L Normal 0.0-0.5 [facility] Comment on above: Performed By: #### 2 [id number] #### [facility] [address] [place] [address] Eosinophils/100 WBC (Bld) 0.0 % Normal 0.0-8.0 [facility] Comment on above: Performed By: #### 2 [id number] #### [facility] [address] [place] [address] Erythrocyte distribution width (RBC) [Ratio] 28.2 % High 10.9-14.2 [facility] Comment on above: Performed By: #### 2 [id number] #### [facility] [address] [place] [address] Hematocrit (Bld) [Volume fraction] 34.4 % Normal 34.0-46.0 [facility] Comment on above: Performed By: #### 2 [id number] #### [facility] [address] [place] [address] Hemoglobin (Bld) [Mass/Vol] 10.6 g/dL Low 12.0-16.0 [facility] Comment on above: Performed By: #### 2 [id number] #### [facility] [address] [place] [address] Hypochromia Auto Ql (Bld) PRESENT Invalid Interpretation Code [facility] Comment on above: Performed By: #### 2 [id number] #### [facility] [address] [place] [address] Lymphocytes (Bld) [#/Vol] 2.8 E9/L Normal 1.0-4.0 [facility] Comment on above: Performed By: #### 2 [id number] #### [facility] [address] [place] [address] Lymphocytes/100 WBC (Bld) 31.5 % Normal 14.0-50.0 [facility] Comment on above: Performed By: #### 2 [id number] #### [facility] [address] [place] [address] MCH (RBC) [Entitic mass] 22.7 pg Low 27.0-34.0 [facility] Comment on above: Performed By: #### 2 911274 #### [facility] [address] [place] [address] MCHC (RBC) [Mass/Vol] 30.8 g/dL Low 31.4-36.0 [facility] Comment on above: Performed By: #### 2 [id number] #### [facility] [address] [place] [address] MCV (RBC) [Entitic vol] 73.7 fL Low 80.0-100.0 [facility] Comment on above: Performed By: #### 2 [id number] #### [facility] [address] [place] [address] Microcytes Ql (Bld) PRESENT Invalid Interpretation Code [facility] Comment on above: Performed By: #### 2 759165 #### [facility] [address] [place] [address] Monocytes (Bld) [#/Vol] 0.6 E9/L Normal 0.2-1.0 [facility] Comment on above: Performed By: #### 2 [id number] #### [facility] [address] [place] [address] Neutrophils (Bld) [#/Vol] 5.3 E9/L Normal 2.0-7.5 [facility] Comment on above: Performed By: #### 2 376229 #### [facility] [address] [place] [address] Neutrophils/100 WBC (Bld) 60.9 % Normal 36.0-75.0 [facility] Comment on above: Performed By: #### 2 [id number] #### [facility] [address] [place] [address] Platelet mean volume (Bld) [Entitic vol] 7.6 fL Normal 6.4-10.8 [facility] Comment on above: Performed By: #### 2 [id number] #### [facility] [address] [place] [address] Platelets (Bld) [#/Vol] 316.0 E9/L Normal 150.0-500.0 [facility] Comment on above: Performed By: #### 2 [id number] #### [facility] [address] [place] [address] RBC (Bld) [#/Vol] 4.7 E12/L Normal 4.3-5.9 [facility] Comment on above: Performed By: #### 2 587625 #### [facility] [address] [place] [address] RBC size Nom (Bld) SEE MORPHOLOGY Invalid Interpretation Code [facility] Comment on above: Performed By: #### 2 [id number] #### [facility] [address] [place] [address] WBC corrected for nucl RBC Auto (Bld) [#/Vol] 8.7 E9/L Normal 4.0-11.0 [facility] Comment on above: Performed By: #### 2 [id number] #### [facility] [address] [place] [address] Gastroenterology Office/Clin ic Noteon 09-01-2023 Gastroenterology Office/Clinic [...] fL Low (08/12/23) Chloride: 104 mmol/L (08/12/23) [place] Absolute: 0.5 E9/L (08/12/23) CO2: 24 mmol/L (08/12/23) [place] Auto: 6.7 % (08/12/23) Creatinine: 1 mg/dL [...] Social H (more content not included)... Normal [facility] Comment on above: Result Comment: Elec tronically Signed By: Vinay INGRAM, Stefan Martinez\.br\Date and Time Signed: 09/01/23 [...] 11.0 E9/L Remisol Heme Consenton 08-17-2023 Consent [id number] F [facility] Coding Summary.on 08-16-2023 Coding Summary. MGSYTkgr90GWp0uBv+PG hlYW Q+XV5ZUOErL78fwOUqqU4nE5 NMTElOSywgQVBQTElOSyIgbm LqOG6zaXZhRQZi IC8+QW1yAUEjDyxgpGFwc0P8 hFN6W12doz9lXAlzdWD3NFWo FkNcfjsqq1vrpRf6IEzaSlds OyBt ABYzoL39IJK4nR43Qm20xBWe oJHop1dwvWj1KpOaJBNzGVL0 iJdgXWtyu7CeBIIpP54utDRb c2U6 MNInlFrvuKHeCmZwoDX0gC4k RJqvswowd5ovnoaoEqp6qo95 lVFvh8T4aIZ1I6UlwaN6BJDa bGQg MtgudJVGzU2znxqkv0oyucgv FqCoNXSyLIy1RAv8EFChbVxz OlLgQV44NYL1UBDsdpNgG1An LWFs kVuwBaZ5s2N7Cr6PB4SUGdbj Y5DXKNMTENiqfYS+AP32dd36 G6JcDbhmGnx1QJAjEWE2dYF4 aD0n HISvVDfon3Q4fRN9W5KhvnKv ml3fq5kgMMSbZKjlL49vhDSb u2Y7GWHrrUX0CYHvxBboOmJj aG93 Oyc+XTRtrEvif0GgJqvte6lk e4fypAt9BowlHWCmlpNtrZtk XNE5i5BwIi8hVCLbdSB8yYI7 aD0i KzXiLjF5BYkkX754NyJkbCOb UxkqT49wH8BeeWK+PHRyPjx0 QYGpwIgvSE5rN5NgYEDepiea bGVm hRhqEJ8kJUVggkwrTYWdvZ9c EMSbT8c6MiHgIoB7TEpeY8Ji EZConpnrVi22yR3jDbUdRyD1 MGlu W5BqtcJ7RFSjaMVgHSdoKGS7 V03om6R5YZFaVNGjPLM7zEI6 wH8vkYdjecbykEEqpMyxwqLa dGlj VIztBFzeH628EPUmmLdoBkDn ZGluZyBEYXRlOiAgMDYvMjUv MjAyNDwvdGQ+RMSkEEM0iUnv PSAn qHFhIFrhMu6tzWjqaBwtZU3q TNTmgdtnPOInkS1eSRXqvTWo xSlbVV9jSSLlwcwaz718PiMx MHB0 EPSepSLpK4EigX8oQcJqUMPx GEYbO5NkfDMjNZwpM233KXvz YnK7YKPdybLkS3XjKXGkvDhc OiB0 c7M9Tb1Vr4GhmhpkI0AghMJv RpIaBsmmAWw1C8OnEzosgQD+ JH33FGRwCA54PXd3BSY2xErw PSdi NDLtH7YwjP2yHsAaVLFmCJMi Oyc+PHRhYmxlIHdpZHRoPScx GGFdWzHrtTroLZ7zUz7cEYLh LWNv gXxfyGCbOyAfl5mkCBNcCNjc AM3lnMrzK6QrzIF2NGIgv1f5 Ho83A14wN1YptCF+PGNvbCB3 aWR0 aP8iRlBjJaD0FGjyC453HyWr yNHkFtnjt9esh8ygdPf8JmR0 TUUrglUnuKrrDCY5k9EhYn29 Y29s IHdpZHRoPSIxNSUiIHZhbGln xb4aaD1hZb7+CZCarSQ4oPG6 iQ9bCqGiPpN1YTdfY723XoMo cCIv Fugql8xau1vlrGr3CgSeHTZs rhUnyAzdDNT8h4IwKt95Q5Ow rPurc7JnYus6ih78dLLnm9V9 bGU9 W2XeNRHiqbdfuLXcyOviVV9z MJZqkgdsVQVteT2fBGGsU5b2 AmVgPoJ5LEklQ6AhnuK0JSDp bGQg QMAahUPEpT9zhjngk5tdpxbw RePvIBQrLMe9KXa2TARdhRud AkHtCWN1HkB4JUJ3tVHzxT3r bGln anarbB0cOdb+ZLM4sTUlqHVL UN0cQtmomER+VJZvTOL8rLky IOsqZPHcsA4uWHMqR3e6LhBy LjA1 WNlaD6OgyjJ0SZTmrNLmALUm rWQJdX8yowues9gizommTrHd KVRaFVh6NVv8XASxtJrmBxDw ZWZ0 FwH7LUN7mBFqhJ8qvFqbufoh pW6hMjv+BxnzbYbbZTU8XLa7 T5HoTxp7EZTuyRriRB9txDLz ZGlu Gj7qcKeddTcwTB2pDEBcysob p399VdAqk2sjQOIohRYuSFby LVK2U95qt7R4JOKiGTQyPGZ1 dGV4 pW4pqYdlamhhjTZmuMsynxRw bIfiEInhXCowP978TDLlqKlf RbQrRRc7G8TdAqj0BFLauYms ZT0n tTJzRPpbAe1ciKmigYmxHP6p BVAsqkukw610OdUrp2baUGHq sBLgUJlcHSO5Q03ol6T2VSKw MDAw PQP1bAX8bW0miQzglqiejZCp wBbeguJgfDahXMfqSIbrV824 PKVcbRvxLsBhpDw9L5ShZos7 ZCBz eHltJY5feKPnBWgcVa4osRav hKngDE8mIZGjymqir594GgIy y7ciMTYbaQEdQKbxVXK4A12j b3I6 ZFLuGBHiWGK8cQX6gX7maAxx bjogbGVmdDsgdmVydGljYWwt QJdzH615JZFcjSyaBqQwxJyt bnQg JRopYGx9F7FyTepkbXP+PC90 SMSoZM53aIQmtONfv9jmzVb6 CpLoXTSqMDJ2hDaoDUbgq3Lx ZXIt E55zrVHxp7K9ZXVzvWwjaLOh PjUggFD3yG4yAPeaokbef2pr bffaDbzfd6ckon28nB01C24w IHdp CNGvZPPmNZLcGJMgfZdjsy0p nO1nNs5+SMNtpZQ6fAB2sJ6x BQIhDnM9QTyuB802TpCayYEj Pjxj m0bxq5zneFn0FyL2KEXmpfKq pMxuYWP4t5UwOb82F93rBFwm IQPoYOIrGHZyAEDwzUhrqx6p dG9w Ii8+IEFkvCC1mYK7qJ2nXuFs LjH6MRihI371FvBbbHTfNuts K34zP0HbiHE+FXJbYor4BHSy dHls YP9cgWIgYWmiFy5eFBC2OdEm QoJbNWdlD2AnWUCmzjbhszfi aGI7HBKbFMHqlO21Og3piZjn MTBw vHEXpF8enldtu6vzsgxpNdOl DJEcXFo3ODn2XETamVftReWy MMW8IlR9JIQ2wWAipR5mzBle bjog hI3zE4GtJTLmgredKf13sB6v PnTdNgT1RRdpXgn+O2gGSqmy TWnRGAqAPL51SR61cJTsh0N0 bGU9 W9JiJTLpsbpnfciqoPB2QRVv EUTqoD69qEXmETwdGo4ti8W9 x072QSXzXPZwiT68Ig4rpKeq MTBw vTAVtD4vcpaao1skhormEcUm DBXuWDo2XEc7LRMpmGnsTyZr DYC0LgY1LBV0sKQogG1ymJke bjog dN1jKwz+CZfhELpjTUp5BDpy dGQ+VFEgXIS2lBijNOzmIPSk uD6sBDIyK6m9IsBrGpB4BPko O3Bh OLQfgzidNj07bH0fUsCdRjX1 RBiqK0SkmdZ6GPEkhSUzGGvu USO4P23mi1I0RCXkRAMlAXB0 dGV4 vP5vsPwrmgqtsWTguYcoqpGr nWirIAtxMTkpM907HXHwnRav SsT3HZowXZWxJB63RG51hTDx c3R5 mLD7Y6ZuUWEktegxsmbdeYX2 MRZqYGEmdP08lLJwADbjXg1m w9X6l646JVPlTMNczJ37Qv5p dDog QSKcnEYCxR9tnlqst8ptnbwt PnUcUXCtIOa0HAn5LHHwjDyy ScQyACL5CqT0LMA3zEEfnG0x bGln vcepxC1iCdo+AjNeNBqmHA17 BT54pBZlp3X7eJK3Z5EoPXYo irvxqhecnKI4FEYwFFPbtG95 cGFk IGzoAu3mo0V8l923TEOvZOXa rC12Vk2fqLvfSXHwjICYzO5b kfjpd0tzvjhuZbQbZYSbSNo2 ZXh0 PDYbtLnmXyCzKPB3MyP0AGC6 cTQeyY5qmCxnmxxesK6uKik+ F7F6mZP7xXMnnDvnqSN+PC90 cj48 P9WfRqnfSoo2HTMlAZM5vGA9 lT6zVGOwITbqn8G1tCO4N0Lo mjEwnp4yj4peFQVpOFynS44p bGFw e1D6GVWuaGO4WVKvuMlgMrGo pE29Axy+EKZqsPhru1NtOybc j9dcf4kpsEc5SjIfWJQnvwVx aWdu MBG7o5LhTd60A49wIOwxVLUd ZOCqQHRtOEZkoKbvuh1csW6i Ii8+CCZajSP4pAK5bY5iJfXq IiB2 HViiA633YrSciCVjFsthv9oa i4pciFh2JrRfQBAzcxUplCfu ZDZ8e9JnEw46P3MteHyvp7Pk Pjx0 im50vSFts5D4vGG9G8HqRRBl anzmlQRtyNqdBF7qTCYcsdql UZEzrR4oCGWjJ0c9TgNeYjW1 MGlu P4IjtfV6QDLcoNYaVWCgpLXC qE2fffwyw5vrygxgAkQjJSJp JYz4UPv3FGZqiWmwYjAvBIF0 OyB2 TJU8pVKmaM8maIquyypxsL1e Oyc+GNn3m5vitBSxLD7zbHN7 MN63CA85tOZuc1J3bPA2B7Bp ZGRp hakhkbdipXA7RAZbVTBjtK31 Ql8rpGdvAe9dOTPkXKX7WIJu mFFlL6QewL1uKvBkXABuPUSl O3Rl yHQaJFwcG799VHskKuN3XGNd viXbO1NnIMDqfDxcJtL7s0E9 Vo8ZBP42CC89QD71gCWjg3N9 bGU9 L4KgDJPnisnkjagtmZE5WDEs UKTdyZ99Ti0giAfyRr2hRFLv CEK0ABDpjWAjP0XixU6vNtRg MDAw UGUfJ5ZvaMCrNVzlY313HRyb BoF2JEVxcgHwF5QqBDYkyLvm RmE7q0G2Jb1NJa14DX20QV20 dGQg n0E0rLV3B8BsEEDojrzselyr mKI7GCUfZARfdX13Nh8cqGqs Ru5uWTLzXQW7VMXcbNNtN5Eo bG9y VeTzEVDhNYVhP4FdhATqRItt L201YJlbDaT5YWRxawMfF8Ix LRHdlVtwIkY0z3P0Tb9QQFkd cjo8 S5XqUedosMD+EW75DGHdIQ63 zGRwnPZsq6owqFp7AvXjAAFv LZY0cOuzHQlvh0NiQVWbN93l bGFw y2C4NYPmeTuqa (more content not included)... Normal [facility] Consent for Treatmenton 07-23 Consent for Treatment [id number] F Normal [facility] Erythropoiet Lvlon Erythropoietin (EPO) Qn 51.2 mIU/mL High 2.6-18.5 [facility] Comment on above: Result Comment: [employer] DxI 800 Immunoassay System Values obtained with different assay methods or kits cannot be used interchangeably. Results cannot be interpreted as absolute evidence of the presence or absence of malignant disease. Performed at: [facility] [id number] PhD Susan Cadet Performed By: #### 1 [id number] #### [facility] [address] [place] [address] Oncology Progress Noteon Oncology Progress Note Chief Complaint Iron Deficiency; going over results, states had infusion last week. Diagnoses 1. 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 Internal Ambulatory Referral Iron Level Iron Percent [...] Contact Information Jose MAY, Quyen Pozo, ONC [facility] [address] [place] [phone]- [phone] Additional Instructions: refer to GI to consider endoscopy for iron deficiency anemia.- if none in [place], refer here at [facility] folic acid 1mg daily- send 90 day supply with 4 refills to [facility] cbc, cmp, iron studies, folate in 8wks follow-up in 8wks with [facility] Medications Caplyta 42 mg oral capsule, 42 [...] (Peripheral) RR (more content not included)... Normal [facility] CBC w/ Auto Diffon 4 Anisocytosis Ql (Bld) PRESENT Invalid Interpretation Code [facility] Comment on above: Performed By: #### 2 [id number] #### [facility] [address] [place] [address] Basophils/100 WBC (Bld) 0.2 % Normal 0.0-2.0 [facility] Comment on above: Performed By: #### 2 [id number] #### [facility] [address] [place] [address] Basophils/Leukocytes Auto (Bld) [Pure # fraction] 0.0 E9/L Normal 0.0-0.2 [facility] Comment on above: Performed By: #### 2 [id number] #### [facility] [address] [place] [address] Eosinophils (Bld) [#/Vol] 0.0 E9/L Normal 0.0-0.5 [facility] Comment on above: Performed By: #### 2 [id number] #### [facility] [address] [place] [address] Eosinophils/100 WBC (Bld) 0.0 % Normal 0.0-8.0 [facility] Comment on above: Performed By: #### 2 [id number] #### [facility] [address] [place] [address] Erythrocyte distribution width (RBC) [Ratio] 24.6 % High 10.9-14.2 [facility] Comment on above: Performed By: #### 2 [id number] #### [facility] [address] [place] [address] Hematocrit (Bld) [Volume fraction] 30.8 % Low 34.0-46.0 [facility] Comment on above: Performed By: #### 2 [id number] #### [facility] [address] [place] [address] Hemoglobin (Bld) [Mass/Vol] 9.4 g/dL Low 12.0-16.0 [facility] Comment on above: Performed By: #### 2 [id number] #### [facility] [address] [place] [address] Hypochromia Auto Ql (Bld) PRESENT Invalid Interpretation Code [facility] Comment on above: Performed By: #### 2 [id number] #### [facility] [address] [place] [address] Lymphocytes (Bld) [#/Vol] 2.2 E9/L Normal 1.0-4.0 [facility] Comment on above: Performed By: #### 2 [id number] #### [facility] [address] [place] [address] Lymphocytes/100 WBC (Bld) 30.8 % Normal 14.0-50.0 [facility] Comment on above: Performed By: #### 2 [id number] #### [facility] [address] [place] [address] MCH (RBC) [Entitic mass] 22.2 pg Low 27.0-34.0 [facility] Comment on above: Performed By: #### 2 [id number] #### [facility] [address] [place] [address] MCHC (RBC) [Mass/Vol] 30.5 g/dL Low 31.4-36.0 [facility] Comment on above: Performed By: #### 2 [id number] #### [facility] [address] [place] [address] MCV (RBC) [Entitic vol] 72.7 fL Low 80.0-100.0 [facility] Comment on above: Performed By: #### 2 [id number] #### [facility] [address] [place] [address] Monocytes (Bld) [#/Vol] 0.5 E9/L Normal 0.2-1.0 [facility] Comment on above: Performed By: #### 2 [id number] #### [facility] [address] [place] [address] Neutrophils (Bld) [#/Vol] 4.5 E9/L Normal 2.0-7.5 [facility] Comment on above: Performed By: #### 2 [id number] #### [facility] [address] [place] [address] Neutrophils/100 WBC (Bld) 62.3 % Normal 36.0-75.0 [facility] Comment on above: Performed By: #### 2 [id number] #### [facility] [address] [place] [address] Ovalocytes LM Ql (Bld) PRESENT Invalid Interpretation Code [facility] Comment on above: Performed By: #### 2 [id number] #### [facility] [address] [place] [address] Platelet 372.0 E9/L Normal 150.0-500.0 [facility] Comment on above: Performed By: #### 2 [id number] #### [facility] [address] [place] [address] Platelet mean volume (Bld) [Entitic vol] 7.4 fL Normal 6.4-10.8 [facility] Comment on above: Performed By: #### 2 [id number] #### [facility] [address] [place] [address] RBC (Bld) [#/Vol] 4.2 E12/L Low 4.3-5.9 [facility] Comment on above: Performed By: #### 2 [id number] #### [facility] [address] [place] [address] RBC size Nom (Bld) SEE MORPHOLOGY Invalid Interpretation Code [facility] Comment on above: Performed By: #### 2 [id number] #### [facility] [address] [place] [address] WBC corrected for nucl RBC Auto (Bld) [#/Vol] 7.2 E9/L Normal 4.0-11.0 [facility] Comment on above: Result Comment: Resu lts are consistent with previous pathologist review Performed By: #### 2 [id number] #### [facility] [address] [place] [address] CHEMISTRYOrdered By: SYSTEM SYSTEM on 08-12-2023 Albumin [...] 08-12-2023 Albumin [Mass/Vol] 4.5 g/dL Normal 3.3-5.0 [facility] Comment on above: Performed By: #### 2 [id number] #### [facility] [address] [place] [address] Albumin/Globulin (S) [Mass conc ratio] 1.5 Normal 1.1-2.2 [facility] Comment on above: Performed By: #### 2 [id number] #### [facility] [address] [place] [address] ALP [Catalytic activity/Vol] 92 Int._Unit/L Normal 21-98 [facility] Comment on above: Performed By: #### 2 [id number] #### [facility] [address] [place] [address] ALT No additional P-5'-P [Catalytic activity/Vol] 10 Int._Unit/L Normal 6-46 [facility] Comment on above: Performed By: #### 2 [id number] #### [facility] [address] [place] [address] Anion gap [Moles/Vol] 12 mmol/L Normal 6-16 [facility] Comment on above: Performed By: #### 2 [id number] #### [facility] [address] [place] [address] AST [Catalytic activity/Vol] 19 Int._Unit/L Normal 5-43 [facility] Comment on above: Performed By: #### 2 [id number] #### [facility] [address] [place] [address] Bilirubin [Mass/Vol] 0.4 mg/dL Normal 0.0-1.1 [facility] Comment on above: Performed By: #### 2 [id number] #### [facility] [address] [place] [address] Calcium [Mass/Vol] 9.5 mg/dL Normal 8.9-11.1 [facility] Comment on above: Performed By: #### 2 [id number] #### [facility] [address] [place] [address] Chloride [Moles/Vol] 104 mmol/L Normal 101-111 [facility] Comment on above: Performed By: #### 2 [id number] #### [facility] [address] [place] [address] CO2 [Moles/Vol] 24 mmol/L Normal 21-31 [facility] Comment on above: Performed By: #### 2 [id number] #### [facility] [address] [place] [address] Creatinine [Mass/Vol] 1.0 mg/dL Normal 0.5-1.3 [facility] Comment on above: Performed By: #### 2 [id number] #### [facility] [address] [place] [address] Globulin (S) [Mass/Vol] 3.0 g/dL Normal 1.4-4.0 [facility] Comment on above: Performed By: #### 2 [id number] #### [facility] [address] [place] [address] Glucose [Mass/Vol] 96 mg/dL Normal 55-199 [facility] Comment on above: Performed By: #### 2 [id number] #### [facility] [address] [place] [address] Potassium [Moles/Vol] 4.5 mmol/L Normal 3.5-5.3 [facility] Comment on above: Performed By: #### 2 [id number] #### [facility] [address] [place] [address] Protein [Mass/Vol] 7.5 g/dL Normal 6.0-7.8 [facility] Comment on above: Performed By: #### 2 [id number] #### [facility] [address] [place] [address] Sodium [Moles/Vol] 135 mmol/L Normal 135-145 [facility] Comment on above: Performed By: #### 2 [id number] #### [facility] [address] [place] [address] Urea nitrogen [Mass/Vol] 18 mg/dL Normal 5-21 [facility] Comment on above: Performed By: #### 2 [id number] #### [facility] [address] [place] [address] Urea nitrogen/Creatinine [Mass ratio] 18 No Units Normal 10-20 [facility] Comment on above: Performed By: #### 2 [id number] #### [facility] [address] [place] [address] Consent for Treatmenton 07-23 Consent for Treatment [id number] F Normal [facility] Ferritinon 08-12-2023 Ferritin [Mass/Vol] 99 ng/mL Normal 11-307 [facility] Comment on above: Performed By: #### 2 [id number] #### [facility] [address] [place] [address] Folateon 08-12-2023 Folate [Mass/Vol] 6.2 ng/mL Low >=6.7 [facility] Comment on above: Performed By: #### 2 [id number] #### [facility] [address] [place] [address] HEMATOLOGYOrdered By: SYSTEM SYSTEM on 08-12-2023 Anisocytosis [...] Comment on above: Performed By: #### 2 [id number] #### [facility] [address] [place] [address] Iron Saturationon 08-12-2023 Iron binding capacity [Mass/Vol] 360 microgram/dL Normal 250-400 [facility] Comment on above: Performed By: #### 2 110505 #### [facility] [address] [place] [address] Iron saturation [Mass fraction] 11 % Low 20-50 [facility] Comment on above: Performed By: #### 2 [id number] #### [facility] [address] [place] [address] Retic Counton 08-12-2023 Reticulocytes/100 RBC (Bld) 5.1 % High 0.5-2.2 [facility] Comment on above: Performed By: #### 2 [id number] #### [facility] [address] [place] [address] Transferrinon 08-12-2023 Transferrin [Mass/Vol] 257 mg/dL Normal 200-370 [facility] Comment on above: Performed By: #### 2 738215 #### [facility] [address] [place] [address] Vit B12on 08-12-2023 Cobalamin (Vitamin B12) [Mass/Vol] 484 pg/mL Normal 50-1500 [facility] Comment on above: Performed By: #### 2 [id number] #### [facility] [address] [place] [address] eGFRon 08-12-2023 eGFR 74 mL/min/1.73 m2 Normal >=59 [facility] Comment on above: Order Comment: Order added by Discern Expert. Performed By: #### 1 [id number] #### [facility] [address] [place] [address] Coding Summary.on 08-11-2023 Coding Summary. TWEFSwuk44ZGg9cDa+PG hlYW Q+OM8ALIJpD05ouHKymK2wA3 NMTElOSywgQVBQTElOSyIgbm XvCG0vbTPbYYPa IC8+DK8uINNxAyawkZMcs5F2 eQS8Y90iux0dWRpicWF9ZFFa GjHpyadre7seoKr1WHyxNubf OyBt ADOhqA33HAA4yR44Pw45vAMo vZJat2vhxHw2QzFvQIWuRBU9 jZhlWWcyk9BtEEBkW32nbCNf c2U6 MXLubHhpjZYvZxVmvIR5gA1c PRjfwhkwp6rlkzzwEvm5js01 wWIrj8Z0jEK3I3JdpaU0WFFr bGQg PdundRPDtF1pepjdf7pzpizh MsAoTRAtENs3LIl4OVSddEbn QyMuQE80RJR9GFWikiJsU4Xf LWFs nEjqItG1n9G7Ph1YQ7GWVhej J8IBTRQFXWlvsHX+CH44wy21 T4VnQkihEuc4OUAoMFU2pFJ5 aD0n NYKoOIsih1N8tKI2Q9WmsdXn zx4lo6opGVLjCQybX00rmMYc t3R2ITOniYA2RRBenIpiUfHa aG93 Oyc+KGHjyOzne3FxRjqzc2fq t0tjlZd2ExcuJHGcixQjaEpg BCK0b5UyWm7sLFPvsNZ5eMB5 aD0i XxKyPbI4YSonK017JtEpzKEy KkpjW17pR6ZauKR+PHRyPjx0 JJAfjXyzQP4cW4ImHHBoehkh bGVm uBzwYW5jTWZrkowfZOQfeE1c WIUzH0i8DsLzLkB6YFjaR1Bb HXXlhtysDi19qD0kHkLpVlS9 MGlu F1IwwfK3JKWcdXRpJAchRDQ4 S94wa1Z1FAHdUOBuHIO1cTB1 qF0tmKvinpusvBNgoAavpxRc dGlj ECvxJKynE274BHXarYelTwJs ZGluZyBEYXRlOiAgMDYvMjAv MjAyNDwvdGQ+JWHpHDN1gGkm PSAn rBLdTPloDh5geEiplYwgYS7o VCLtrokhIEChsG9vBFTimFUa pKwkOV7yJZQldoxre711HqCy MHB0 YGCajBUuX3SzrE7kAzVuCYOr FOTkA2MjyZMsOPnoX478IXeu PfT4FCLbwyWlF3OzXAMngMji OiB0 g3J6Qg9Be7TjoqkxU9WjcKXn RtRvWkswTPv8M7GgYftrzFE+ NS18KJErVA06SLa6FSG2kCyl PSdi JPGkW6UupJ1uZrIuRDWnKBKe Oyc+PHRhYmxlIHdpZHRoPScx WLSqJzHqoKijYO7pVe3fLFOs LWNv xWehfLXiFjZmg9esDRAfPGei FQ9uiTywS9KbyPJ9FURgl5w9 Pe68A54vD3IfgFS+PGNvbCB3 aWR0 kC1bOxXnOeF2SJfvC589ToTl aWKyTzxop6zop0dnsIi6YgM9 MFZjpzAmxDtmZMB1s4HyVt75 Y29s IHdpZHRoPSIxNSUiIHZhbGln nf4gtH2eCf1+CQFgfMQ4kSL6 kQ9pTuDhEfJ9XAfoO365SiBt cCIv Vskid1hjo7izyEh3LuBpDKRr boIzpChmEAE3b2YiUs07N8Ch yPjso5OkUmq4fq89vRHzj0J1 bGU9 O2KkXPRyleyvqAJvcVqlOH0u JTHqlirvSUYelN8wOMYdO2n7 IgPaPdN4QDfkY4AcbgF2KRXe bGQg WCFrdZSLuF7gkfnfi7dxukot FcFfGEFsFZy2OFb8GTUxkDnk PyRtOTV6HcX2SGA4fDMpoV6m bGln apdlyU3yKrq+RHC5uMWywUGC QN8dNmpliHO+AVEoYVR4gPyl WZhgSVLysV8bHVJqS7w2SpKe LjA1 JXkcG6VkqmA4UCPplPEqJBAq aRYWxO7plcbpb7fvfpswFhSi NGOnFCg9WZz9TUCxcLfgPjKs ZWZ0 UzG0LJV9xMPnuH7qaAdokbzg cQ6kKle+WwidnLayWAQ6UEa0 X8VpJka4QEZojDqmXN9pnAIe ZGlu Fv9huKlyiAlcHO3cBYStopwq x524YjIiy9pjDYGyvUNdAYdp OIU2P39ws8I7WBNvVXFeWDA0 dGV4 yM3zcLsratppvDJkqZdjekTv nXngIBkqUXgzQ074EZUegOnb KgGkBWp6R9OwOwp4POHwaGtr ZT0n cPRnJNzrOf1wvIgybClaBC7w EFMkzrlzh525RoVdv7peUOAv qFJtOAkdWFC6B69ky0Y8NIEz MDAw SIZ7qCQ5vJ9xtRaguxpiqYLi fEjolcSofKciXXvlBPqpV323 PKBfwJezHkDehDo4V7NhIpr5 ZCBz tTmwZE2ohSCrCYiqSj5slHcv hYffTI0qJLJluiywk659GzRd o8slWOKdfIArBXgiXPT1S94w b3I6 UTLgTFGiPOU9eJZ1mF1cvTwa bjogbGVmdDsgdmVydGljYWwt ZQndY229BXRjlOgpEzAmiPtn bnQg UTyjPSi7X5QwBqimlFE+PC90 ECXgDA81xCZynZMdw5ddhOv7 GmTlEJUqUWK3cJyhOXxgo5Sm ZXIt P99ndQAdw7R6AHEdeUherCAw WiRhmKA4gG0hKLerzikzs0nz bpmiIvkoh8jhrd31nV00Q75i IHdp YJCaEEBkEJWkLHMheJtjoh6j hQ0sBa5+NNPgsPK7oKK0hN8d XJXfZkQ1XSysU619CrOvnMDl Pjxj k8fax2wkzTh1TkM5DLPwajPz jNqoEXN8z1EtHy14N98sCYdv JKMdRWXsURLcTVKelOexhk1a dG9w Ii8+XPUifBB5nXN6hQ1aCuBl JfO3EFzlR819BbImgWAvYpbx N53eI6BfqOT+JBXiFak8OYAv dHls SU7zdBQaTJrbJl2vFOD4TdUn PeXaAChbX3JcFPRknkmnmsao xPM0UWTzLJCpeA75Bk4zhJwn MTBw nTFVqZ7jqzmzr5saoaufUcWy TATbKDs4IXy3SOIkeTaaUhOr OWY0PyF7TCU1rLHqcX9vlEpq bjog rG3lX2NiVVErinbqBj75fZ9k NfNkAkR7WAvtKtr+S4gVSzay KHtYJQlGRO01WF41tJIpe8Q4 bGU9 A6DfXRRioxtnrqjvxCY8ZHYs PCVliA69qLSiRIscAa2kq3J1 q676KSTmTPQzxY94Hr4myCky MTBw lNFSyY4tbwixi5jyedbeFeDa OQYsADn5LYy1HANalYnqIwTb RXH2KnH1DLE2aWZacG0qsWwm bjog cJ3qHiz+GRxfOSefJZv7WOje dGQ+VYJxXYQ6yLghIJasILTf cL2sCKTbR6s0ZvUlUoN5RCkq O3Bh WDHmcmvpOs03vR3dNeMdLoA3 ZLfwR9KmtlA3KEBlnGWpNBbq DMP5Y34lf5U4OQCnYDBqOID3 dGV4 bN1zaRxidmkkaBIvcRkfjkKb oGwlHBxvXJbpV586SRJciMzd CtW2VSapGCOsJP15CM43uYQt c3R5 kWE3D2RgUUQqiqpofjxppPY5 GSObGITewL03dLVkPIvnDk2u y8H4b551GOWvLYRwdX31Cl4j dDog BXRyqDSArW7pwkfmv9uwjxbe YyLyQXZuYRc2OTq6ITRctCyf PdEnDEJ4VlP0CMK1qXTpkO8v bGln ukyyfO3sKnr+SsYdQAmuIW68 ES87aZAbr7R9cYU6X1SiFDAg uxrjsmqpfRY4IKDgEYHgnH43 cGFk ZPwaBi9dp6G7g051AUPcIYRs cT60Nt2usVvxFJCmkXKWzA2h dyzca0icfydzPfGtNIBaYAo4 ZXh0 QUHcnJroAiSzKKL4BeX7PJY9 qXZixG2kdOvnyekbnR3cJre+ KvUisGOqrX9fNB09YI65X6Fj Pjwv dGFibGU+PHRhYmxlIHdpZHRo CDrtNREtJoGogPfkUY8zJz1d OARlYFEtpPlfgVXnFkXre3kz YXBz MMxjZG9emWlzI8TduOB5ZXJy i7a8Pa90B88lF4TwhDL+PGNv wMJ3jZO0nT9mFyEnCwZ6OTwu Z249 YaKbmDPcBljoz6aju5fgdZu7 MxJsPCOoigGjkYfkAPY6b3Fv Yc25J35nOYxtYELgZUEmTGBf IHZh pDpmzd2gaE1pUf6+PGNvbCB3 yXW8lY5xQpBbKpL6QTtvM187 VkMwiSTrLnppE74cX1FklUT+ PHRy Gof7XXKiwIuiHE8sfBYoPHik Ux8iXMC5UrJqZjVuTQyxC3Wf NGLhuaxoywqzxRY4JFEtOOKw aW47 Qm4wqFfdOj0bACZiOOC1MVNd pPVvO1ScjP3uIeFgDOWyHOPw R7OttJOyPCvmS857AEinCpU2 IHZl foUtG3QgXFOtdLkcZuW8s9T1 Ax3BrPhmdDOeZF2nXfAtPWa6 G9BsIme1ONSupKbeIY8zhHLr ZGlu Dt4szCfyjDyfRP2eXUFdlziq r296EhLcp8awNQUulJJyZLyf WLR0F11ag6D3MWNmJPRmLYD6 dGV4 aH3ckZgmtoatfBRleTmucmMc hHbqOSygUQtjC361LDVodUev NeMCObd0V0GuZfs1PRHraFfi ZT0n iQSoPPclOm9onCicsJkxMR3n RHLvefffb400GjZhc7veFIGy fDBhCYlaITE1E71ej6O8BABq MDAw MLN5vLH9bI0aiYepnlbizKMl qSshmjMukIqoKLxxWSvuF352 MROpfFfkPt2ONes7V7WtQgv2 ZCBz hCauLO2rbQIsAFkvQk2cqDbk wHxdPG2kTDFdnzcpz296AsUt n4ilPEQvrZOqRFnoMXY2P41c b3I6 XXZuWBRrKCU4nUQ4xZ9kwWqr bjogbGVmdDsgdmVydGljYWwt FGfqR239ABZxaIpsAbUjkLNl Ojwv dGQ+UI67on31Q3AkPuicHpf3 AFJmUTW0pKY8dU7qYOKqRBnv h8K9rPL9H0ZdwcTxho3xn3fv YXBz RRxmL84kuVYxq (more content not included)... Normal [facility] Coding Summary.on 08-10-2023 Coding Summary. AZZFTxkz57PRp7tQg+PG hlYW Q+EE3BHFKxB58mmGEnkE9lJ3 NMTElOSywgQVBQTElOSyIgbm BkFW8ahZWcEMYb IC8+VV2zNRXlSafldQQpw0H8 tPS1J09kpl5sOByypSJ2FVMm VfFsvagjs4trgGl0XBzcOwbo OyBt QSRfdN84YSM1eR37It10pDMi yWEds0ikxWp3HfIpLKUdRRZ5 kVsvOKcav6QwHTCyQ78zmQYj c2U6 ZAJmpDnnyAOrTnUwjWC0cY1i QOrjeanvq1fcdylmRzt1tl70 tOIja3O0qMN4S1YifzL8UKWo bGQg BoxwhGTJaJ7msmlvr2vfpqpt ZoSiFEIzGKm5BBu7HTFlyYdy RrAoME36PVK5WTNctaSnC9Mt LWFs rHijKuJ5y5A4Bu3PJ1FAJbbg Z7YHCCRFCWyuzFQ+SP87ic82 F1NvNjiyOmv3ZWDuWBB6bLU9 aD0n SKUzNUdkv6I7hIS1B4AoilFe hh0kr8jkTIGhSMxfK80zyCTq o1X0IVIjfYH5EUFugPyaLkGd aG93 Oyc+MVGctVekj1EoKmsjc5wj d1vgzPm3WclbIUTcpmIfeDqt JRP2j6HmAi8yVZUrrUZ1wRE5 aD0i OaWqZtB8ZCkiL006MtWvbMJm HvbxF09eX5RxtCL+PHRyPjx0 SXXzzOwnVV4sX7ItWUCfwltd bGVm iSouPK2tVKYkuzxgQZFcdN2r QIOiW6s8NrDzHuH4ICzsG7Wn JGScgsubGf00bQ1rGePyApK2 MGlu B1OoxbL7WRAokTPjHChnDEW2 B93si0T4AXPnSMNfLIF0dKM3 iK9dcOvnzgksoTDtyTjwgsCb dGlj BTkpRSxeV058FQEqzBwsXwRj ZGluZyBEYXRlOiAgMDYvMTkv MjAyNDwvdGQ+JNLoCNC2pAzq PSAn uLKpMPehPa4ioVoduPsjSI5j VPXbjhxbBFWplS7gYFAntIHd nHebXF3hNITvubixz402MgDm MHB0 TKXuySBtS2XnsK4oBqZaNUNt YEGiS0CqlILqLLhwD129IXee ObT8OREwvlUuF0RuJCFhuQiu OiB0 x9M3Ig9Xx3EiuwxgG0GzuQMv JjQlJwpyZEm9S3QuAvojeAR+ DS17BFLpZM43ZQb3MTQ2vJyi PSdi PISkV4DzrX8wNlDxOAMeRCKk Oyc+PHRhYmxlIHdpZHRoPScx JQYyGlLrbUkuUQ5kOl9cHOMt LWNv nXyhxTYmVzTil2jhBQNrPOwu HU5zsLpoR8ZzdLH8RPYvi5r1 Jo99V71tV1HjtWZ+PGNvbCB3 aWR0 nO3fMgOeRmP0LMvlM674EjCv dNUuNdwte9gay8sunBr7CgQ3 AYEuxsVuvYjeYXN7v6KdGt14 Y29s IHdpZHRoPSIxNSUiIHZhbGln rd1ejT1zOt3+YMFlhGC5rES7 tG8cMnGrYlQ8XBihB615FlWk cCIv Kpfia3quc0cqgIq6AhYqGMZa soIsdSzqQOE2u5DgRt79V0Vc hAfuv4OzCfl6pm74zYOho8V6 bGU9 O1HsUMPkwrdkeRTqaVykYC4x NJJjewbiUMByeX2lMIIoA5l3 AoPpVkU6BKqqY7DjcfF5NMEu bGQg UQOgmVEMmT1oobaut1oausvh UdXdDLAdQRb6YBm0IKXryUqz TyTgLPI4DoG6XNO1uKRxxX0e bGln kjttgC4dWyb+FRT3sZAngMMQ YY9tHgpbbUR+SKOyXTL5jKku WLrdMMGqzQ3cNCEdX1b5NeXa LjA1 WMdjU0CspxH2VGAtoWHcYEMf nHIYyZ7iuhaak7boymqjNlPl BHSuSBh5YPe2HRGmsLclWsDk ZWZ0 NtG7ARV4bLGgeO1nqNybmual dD5pVsi+KnvpmCccPMR7JFk5 B9RjPgl4TARpwMgcHR0ayKPb ZGlu Vy0ayFkhvCjiFB8wLLBjziwh u315OzHqi2vzIUGfpKOkYCcp ZKE9A49mw0W8UMIrTNHxXJO1 dGV4 pM4siJnpuetodQEqwYtqlpYc fHnjAFrfIXjdL163AICngHxr LzAjFZk9V7NoWjf3LNHfqNri ZT0n hGDjATauWc6ucBxaxNwmEE4v XXEtdioxu801AsLjw1iiHBYi hGUiVKxkZNU0V23cz7D4HMXv MDAw OIO6uMH8tK7hgLgannbhpWPg nEezzcDeuXmfVLuiDCifG227 TAZnwTviWiCvqNd0C7MoAcb4 ZCBz wQymWW6daQNvFWhwCm9yfRew rVorKA5pYLRaxkbvg079QrBr b7jbRBEorEMqQSjeUZL1O11s b3I6 DQQqGNWxQQD7nXW0iW6chImy bjogbGVmdDsgdmVydGljYWwt HIoyM019EAVrgSozMlPomBad bnQg IIghSFj3F3OqBzeodYW+PC90 HXIzUM37aIHmfIDfm1gbkQq3 VnLeZMRbVOM4jBnnTDfdw4Zi ZXIt X41cfMBjg7P3QCRfrEujxVZb MbIwzMB2kU3hAAjdsiwch7wa pphhQtbzm7vfef89sC59H28e IHdp SNYmKFQhKVVhWJHchSgmek1e jD8hYw4+CFRqvHD7sCR0xE8e RSKwVjV0GWoiI603QwQnnFPp Pjxj i2elc0louAw7VuB3GNLsvoGy uXbkMCS0y3IpIf99N68pLKsl IWIkGMRaZOHkLTPukUlpyc8e dG9w Ii8+DQXexNQ6eFX7vY5tAbNr VmO2UFkyE435ZmKitCVkLgdd H73tD4GnmSE+LSFrGfp4USNz dHls EJ4utWTdQOllJd4tUZI4EzTl HrFvIYgoN6TrYUBgfhpkfbza sVM3SEAvMJKyiD38Ql9isLnw MTBw cTPViY5jecabi0amermzRjIh LCFiVSp2UWn2ZHWumXwqDzGt FDW8XrY7EXG1oLPoeN6qaGng bjog cA1oQ2VaQBDomjdwVj74wB8l MwOqXgZ9VYjkPzb+U6bFMepi XFiGXGvEOQ51HE57hJGkw5U1 bGU9 E5TrLSSfskinzcpzhLP1OEAc YSQkwK35oLCgOVswWd4iy4N7 u401MJSeNBEreW07Yz1vzYto MTBw zCBMnF6ytlrlr8eerwzwFkCx UYLjPBv8WRp9FBHueGmwSmLb DNX2KyO3VOD5hMPkpU3stIqf bjog dL9xLqu+NUddBCdbAVz2SJhr dGQ+FHHhQAD5lUoyOVwfFBOp zA6jJNJiO8t5BpEkNhC5PHlb O3Bh KOJtqxfzOp71bJ6dZyTtDkF0 PBnyX7MfbkN9IPXauVOrFStc YUO8S29hh4H6XAOzPMLhNDD1 dGV4 qV2szFpkdjpzvUTlvGhkxbCg qUduNEgmAIwaB095VLEcoUnn MsK5EJnnBPVdXA01IC16rUAa c3R5 mKP2T8ZlCEYgfjgirzizxYJ3 GUDzVVGirA67oOOcKPgrEi8l h1P4g578LWIgQYWjwP31Dw1s dDog VMZwqMPRaV4sfyejc9orkhrd YzNhGUOwXEg7JGp3YWEvrKlq CqYsPMC9XfJ5YVL5eEDefL2f bGln qulzaP2qSxh+NeSzHHizLA52 HN67lIKfu1Z9zVT1Z7ZsBCOf ribcehjadRQ8FBTeQOZjuJ50 cGFk JDufAf5ya8J7k892GZSpVDEa dF08Qv0amTadOZKicSVGeX7e rsblx3iofrcoThAzIKSuKUa4 ZXh0 NHHpsZlvZcGoXXS4NxA3VDR2 mHFetI8kdNzzbteqhG0mMih+ YVBzZLKfp1Wnh9WdQP68WI49 L3Ry PjwvdGFibGU+PHRhYmxlIHdp PQLwPJsyAXCaDmLheQvkPM8q Pw7oPISaKGVceFdnxMPdEcMs b2xs DYCqNQiiTV1iyQmpP3GylLB2 JKDwl2d4Pv42Z20iF4YogUU+ BPZfaTB9dYH5qI7qIpEyHtO3 YWxp J704ZjHpmMNoRacay4jxd8kj aXi6PmLwMXOuhmRvhIoeKKJ3 r4UyVw11J89gNHbtUQQpNZCg MCUi MGCydOxocv9zpR8pGr3+PGNv oUK0nXJ0yK1yRuRbFuC4YVmo K332FiFhqLUvEkzaG82yV1Vu dXA+ QJPxFzf7AABbgKoyPC7juIIn FDxbOt7jULB8MfLdYjVmZQmm Z6CnKSAaosxdjpsxuOG8HUOf MDUw iZ27Fa3jeImkNy2lFRLvTRW8 XECxnKJoE6RbaW1lBvCiFSBo XTYlW1NfyYUtLJnpZ924BSto ZnQ7 NMYqmtGeQ0YdGANzrQlyClZ6 c3F0Jm9BlDaufWPmFR1iGvYy IEu9L8YkPrr2QBOomDhyHV6m cGFk VBteJw3kaWhhmSjvAI0nHHKb thjvx578DeZuq2bpGZMtyPAw JJgcFCA8Y21ne9T5HBWvUIUq MDA7 tYI8kY6yqAbcqhscjHDerZse kcNpmWoeZUckBGtyH527IAIh jKknBgGZAij0L9BrIki2FEUk dHls TY5cdHJsTAjdYb3vgWsntUlz FS9iYZCjwdwzu357FvWfz0tl XZFzuLFkBUzzIBV0F30jz6Q7 ICMw WNOnKHK0iCX1nN1yyTkrdjcr bGVmdDsgdmVydGljYWwtYWxp E887GXUsrJivHp6EZrl8K2Ml Pjx0 WYBnxCznBE7raMYwKQguRw5z kOfpdPxzZL5cDYYubexhu310 SoIci4ytHWObgJCoJLzaHOJ4 Y29s w4K5PFVzEYBgGGM5vQR0bA4r bGlnbjogbGVmdDsgdmVydGlj QUurLYqcG519CKNqaDziMmPi eWVy OjwvdGQ+TV55tz77V3TqAxzt Onf8VOWnQQT6tJY1vN7yCZNu LLprz3Q1zFQ6W6YacaTawi9e b2xs LEAiGLnaT71vi (more content not included)... Normal [facility] Consent for Treatmenton 07-22 Consent for Treatment [id number] F [facility] Path. Reviewon 08-05-2023 Path Review Peripheral Blood Smear: Invalid Interpretation Code [facility] Comment on above: Order Comment: Order added by Discern Expert Performed By: #### 1 [id number] #### [facility] Laboratory [address] [place] [address] Physician Orderon 08-04-2023 Physician Order [id number] IFF Normal [facility] BB Draw & Holdon 08-03-2023 BB D&H Sample drawn for Blo od Ba Normal [facility] Comment on above: Performed By: #### 1 [id number] #### [facility] Laboratory [address] [place] [address] BMPon 08-03-2023 Anion gap [Moles/Vol] 11 mmol/L Normal 6-16 [facility] Comment on above: Performed By: #### 2 [id number] #### [facility] [address] [place] [address] Calcium [Mass/Vol] 9.1 mg/dL Normal 8.9-11.1 [facility] Comment on above: Performed By: #### 2 [id number] #### [facility] [address] [place] [address] Chloride [Moles/Vol] 105 mmol/L Normal 101-111 [facility] Comment on above: Performed By: #### 2 [id number] #### [facility] [address] [place] [address] CO2 [Moles/Vol] 26 mmol/L Normal 21-31 [facility] Comment on above: Performed By: #### 2 [id number] #### [facility] [address] [place] [address] Creatinine [Mass/Vol] 1.0 mg/dL Normal 0.5-1.3 [facility] Comment on above: Performed By: #### 2 [id number] #### [facility] [address] [place] [address] Glucose [Mass/Vol] 109 mg/dL Normal 55-199 [facility] Comment on above: Performed By: #### 2 [id number] #### [facility] [address] [place] [address] Potassium [Moles/Vol] 3.9 mmol/L Normal 3.5-5.3 [facility] Comment on above: Performed By: #### 2 [id number] #### [facility] [address] [place] [address] Sodium [Moles/Vol] 138 mmol/L Normal 135-145 [facility] Comment on above: Performed By: #### 2 [id number] #### [facility] [address] [place] [address] Urea nitrogen [Mass/Vol] 16 mg/dL Normal 5-21 [facility] Comment on above: Performed By: #### 2 [id number] #### [facility] [address] [place] [address] Urea nitrogen/Creatinine [Mass ratio] 16 No Units Normal 10-20 [facility] Comment on above: Performed By: #### 2 [id number] #### [facility] [address] [place] [address] BNPon 4 Natriuretic peptide B (Bld) [Mass/Vol] 20 pg/mL Normal 5-80 [facility] Comment on above: Performed By: #### 1 [id number] #### [facility] [address] [place] [address] CBC w/ Auto Diffon 4 Anisocytosis Ql (Bld) PRESENT Invalid Interpretation Code [facility] Comment on above: Performed By: #### 2 [id number] #### [facility] [address] [place] [address] Basophils/100 WBC (Bld) 0.2 % Normal 0.0-2.0 [facility] Comment on above: Performed By: #### 2 [id number] #### [facility] [address] [place] [address] Basophils/Leukocytes Auto (Bld) [Pure # fraction] 0.0 E9/L Normal 0.0-0.2 [facility] Comment on above: Performed By: #### 2 [id number] #### [facility] [address] [place] [address] Eosinophils (Bld) [#/Vol] 0.0 E9/L Normal 0.0-0.5 [facility] Comment on above: Performed By: #### 2 [id number] #### [facility] [address] [place] [address] Eosinophils/100 WBC (Bld) 0.0 % Normal 0.0-8.0 [facility] Comment on above: Performed By: #### 2 [id number] #### [facility] [address] [place] [address] Erythrocyte distribution width (RBC) [Ratio] 19.5 % High 10.9-14.2 [facility] Comment on above: Performed By: #### 2 139227 #### [facility] [address] [place] [address] Hematocrit (Bld) [Volume fraction] 24.2 % Low 34.0-46.0 [facility] Comment on above: Performed By: #### 2 [id number] #### [facility] [address] [place] [address] Hemoglobin (Bld) [Mass/Vol] 7.3 g/dL Low 12.0-16.0 [facility] Comment on above: Performed By: #### 2 [id number] #### [facility] [address] [place] [address] Hypochromia Auto Ql (Bld) PRESENT Invalid Interpretation Code [facility] Comment on above: Performed By: #### 2 [id number] #### [facility] [address] [place] [address] Lymphocytes (Bld) [#/Vol] 2.0 E9/L Normal 1.0-4.0 [facility] Comment on above: Performed By: #### 2 [id number] #### [facility] [address] [place] [address] Lymphocytes/100 WBC (Bld) 32.5 % Normal 14.0-50.0 [facility] Comment on above: Performed By: #### 2 117996 #### [facility] [address] [place] [address] MCH (RBC) [Entitic mass] 20.5 pg Low 27.0-34.0 [facility] Comment on above: Performed By: #### 2 752824 #### [facility] [address] [place] [address] MCHC (RBC) [Mass/Vol] 30.2 g/dL Low 31.4-36.0 [facility] Comment on above: Performed By: #### 2 [id number] #### [facility] [address] [place] [address] MCV (RBC) [Entitic vol] 67.8 fL Low 80.0-100.0 [facility] Comment on above: Performed By: #### 2 040487 #### [facility] [address] [place] [address] Microcytes Ql (Bld) PRESENT Invalid Interpretation Code [facility] Comment on above: Performed By: #### 2 [id number] #### [facility] [address] [place] [address] Monocytes (Bld) [#/Vol] 0.5 E9/L Normal 0.2-1.0 [facility] Comment on above: Performed By: #### 2 [id number] #### [facility] [address] [place] [address] Neutrophils (Bld) [#/Vol] 3.7 E9/L Normal 2.0-7.5 [facility] Comment on above: Performed By: #### 2 [id number] #### [facility] [address] [place] [address] Neutrophils/100 WBC (Bld) 59.4 % Normal 36.0-75.0 [facility] Comment on above: Performed By: #### 2 078136 #### [facility] [address] [place] [address] Platelet mean volume (Bld) [Entitic vol] 7.5 fL Normal 6.4-10.8 [facility] Comment on above: Performed By: #### 2 512171 #### [facility] [address] [place] [address] Platelets (Bld) [#/Vol] 342.0 E9/L Normal 150.0-500.0 [facility] Comment on above: Performed By: #### 2 658999 #### [facility] [address] [place] [address] RBC (Bld) [#/Vol] 3.6 E12/L Low 4.3-5.9 [facility] Comment on above: Performed By: #### 2 438374 #### [facility] [address] [place] [address] RBC size Nom (Bld) SEE MORPHOLOGY Invalid Interpretation Code [facility] Comment on above: Performed By: #### 2 309936 #### [facility] [address] [place] [address] Schistocytes LM Ql (Bld) PRESENT Invalid Interpretation Code [facility] Comment on above: Performed By: #### 2 [id number] #### [facility] [address] [place] [address] WBC corrected for nucl RBC Auto (Bld) [#/Vol] 6.3 E9/L Normal 4.0-11.0 [facility] Comment on above: Performed By: #### 2 392015 #### [facility] Laboratory [address] [place], [place] [id number] CHEMISTRYOrdered By: SYSTEM SYSTEM on 08-03-2023 Troponin [...] 20 pg/mL Normal 5 - 80 pg/mL [facility] [place] COAGULATIONOrdered By: Vick Kent on 08-03-2023 aPTT Coag (PPP) [Time] 32.0 s Normal 25.1 - 36.5 second(s) [facility] Auto Coag Comment on above: Interpretive Data: [...] the same coagulation reagent and instrumentation as [facility]. Currently there are no coagulation studies available worldwide for children to 14 days, and no normal ranges. Heparin therapeutic range (represented by Anti-Factor Xa activity of 0.2 - 0.4 U/mL) corresponds to PTT of 56.6 - 109.0 sec. INR Coag (PPP) [Relative time] 1.11 {INR} Invalid Interpretation Code [facility] Auto Coag Comment on above: Interpretive Data: I NR results are specifically intended to assess patients stabilized on long-term Anticoagulation therapy suggested INR s Less Intensive Anticoagulation 2.0 3.0 Conventional Range 3.0 4.5 PT Coag (PPP) [Time] 12.5 s Normal 9.4 - 1 2.5 second(s) [facility] Auto Coag Comment on above: Interpretive Data: [...] the same coagulation reagent and instrumentation as [facility]. Currently there are no coagulation studies available worldwide for children to 14 days, and no normal ranges. Consent for Treatmenton 07-22 Consent for Treatment [id number] F Normal [facility] Discharge Instructionson Discharge Instructions [id number] FF Normal [facility] ED Clinical Summaryon 2023 ED Clinical Summary (Inserted Image. Shasta ble to display) [place] [id number] ED Clinical Summary Person Information Name: MORRO [facility] Age[facility] 37 Years : 1985 Sex: Female Language: Cuban PCP: Cleo Hassan Marital Status: Visit Id: [...] 08/03/2023 14:14:52 08/03/2023 14:14:52 08/03/2023 14:14:52 ADDRESS: [facility] MELISSA LOZADA [facility] [id number] [facility] DOC NOTES: MEDICAL INFORMATION: Prescriptions Given: Medications [...] up: With: Address: When: José Antonio Benitez [facility], [address] [place] [address] In 3 days 08/06/2023 Comments: Make sure to follow-up with as discussed. Return to the emergency room if your symptoms get worse or any new symptoms. With: Address: When: Cleo Hernandez In 3 days DIAGNOSIS: 1:Shortness of breath; 2:Anemia Normal [facility] ED Note-Nursingon 08-03-2023 ED Note-Nursing this [...] Ge RN updated at this time. Normal [facility] ED Note-Physicianon 08-03-19 ED Note-Physician Basic [...] and Complexity of Problems Differential Diagnosis: [] [facility] Data External documents reviewed: [] My EKG [...] Antonio Benitez In 3 days 08/06/[address] [facility] [address] [place] [address]- Additional Instructions: Make sure to foll (more content not included)... Normal [facility] Comment on above: Result Comment: Elec [...] ? Medicines to make heavy menstrual flow echo vascular tech. ? Surgery or additional testing procedures to determine the cause of your anemia. You may need repeat blood tests to determine whether treatment is working. If the treatment does not seem to be working, you may need more tests. Follow these instructions at home: Medicines ? Take lzrz-dvf-tyvsvzn and prescription medicines only as told by [...] keep your urine pale yellow. ? Take ylas-jiu-yoyonej or prescription medicines. ? Eat foods that [...] cause of your iron deficiency. ? Take dvqz-qmf-wwlbepi and prescription medicines only as told by your health care provider. This includes iron supplem (more content not included)... Normal [facility] ED Patient Summaryon 024 ED Patient Summary (Inserted Image. Shasta ble to display) [address] [address] Patient Discharge Instructions Person Information Name: MORRO MALONEY Age: 37 Years Arrival Date: 08/03/2023 10:44:43 Discharge Diagnosis: 1:Shortness of breath; 2:Anemia Primary Care Physician: Cleo Hassan Provider Information Primary Provider: Elizabeth Moise M.D. Advanced General Cleaner:None The exam and treatment you received in the Emergency Department were for an urgent problem and are not intended as complete care. It is important that you follow up with a doctor, nurse practitioner, or physician?s inside sales assistant for ongoing care. If your symptoms become worse or you do not improve as expected and you are unable to reach your usual health care provider, you should return to the Emergency Department. We are available 24 hours a day. MORRO MALONYE has been given the following list of patient education materials, prescriptions and follow-up instructions: Follow-up Instructions: With: Address: When: José Antonio Benitez [facility], [address] [place] [address]. [place] [address] In 3 days 08/06/2023 Comments: Make sure [...] opioids can be used to help relieve yncpqnzf-jn-zotbzr pain and are often prescribed following a [...] the ri (more content not included)... Normal [facility] HEMATOLOGYOrdered By: SYSTEM SYSTEM on 08-03-2023 [...] 08-03-2023 Albumin [Mass/Vol] 4.3 g/dL Normal 3.3-5.0 [facility] Comment on above: Performed By: #### 2 [id number] #### [facility] Laboratory [address] [place] [address] Albumin/Globulin (S) [Mass conc ratio] 1.7 Normal 1.1-2.2 [facility] Comment on above: Performed By: #### 2 [id number] #### [facility] [address] [place] [address] ALP [Catalytic activity/Vol] 81 Int._Unit/L Normal 21-98 [facility] Comment on above: Performed By: #### 2 [id number] #### [facility] [address] [place] [address] ALT No additional P-5'-P [Catalytic activity/Vol] 12 Int._Unit/L Normal 6-46 [facility] Comment on above: Performed By: #### 2 285389 #### [facility] [address] [place] [address] AST [Catalytic activity/Vol] 14 Int._Unit/L Normal 5-43 [facility] Comment on above: Performed By: #### 2 334266 #### [facility] [address] [place] [address] Bilirubin [Mass/Vol] 0.4 mg/dL Normal 0.0-1.1 [facility] Comment on above: Performed By: #### 2 339195 #### [facility] [address] [place] [address] Bilirubin.direct [Mass/Vol] 0.0 mg/dL Normal 0.0-0.4 [facility] Comment on above: Performed By: #### 2 [id number] #### [facility] [address] [place] [address] Bilirubin.indirect [Mass or moles/Vol] 0.4 mg/dL Normal 0.1-0.9 [facility] Comment on above: Performed By: #### 2 [id number] #### [facility] [address] [place] [address] Globulin (S) [Mass/Vol] 2.6 g/dL Normal 1.4-4.0 [facility] Comment on above: Performed By: #### 2 480075 #### [facility] [address] [place] [address] Protein [Mass/Vol] 6.9 g/dL Normal 6.0-7.8 [facility] Comment on above: Performed By: #### 2 633450 #### [facility] [address] [place] [address] Insurance Correspondenceon 0 08-03-2023 Insurance Correspondence [id number] Normal [facility] Magnesiumon 08-03-2023 Magnesium [Mass/Vol] 2.0 mg/dL Normal 1.3-2.4 [facility] Comment on above: Performed By: #### 2 801396 #### [facility] [address] [place] [address] PT & PTTon 08-03-2023 aPTT Coag (PPP) [Time] 32.0 second(s) Normal 25.1-36.5 [facility] Comment on above: Result Comment: Para [...] the same coagulation reagent and instrumentation as [facility]. Currently there are no coagulation studies available worldwide for children to 14 days, and no normal ranges. Heparin therapeutic range (represented by Anti-Factor Xa activity of 0.2 - 0.4 U/mL) corresponds to PTT of 56.6 - 109.0 sec. Performed By: #### 1 [id number] #### [facility] [address] [place] [address] INR Coag (PPP) [Relative time] 1.11 {INR} Invalid Interpretation Code [facility] Comment on above: Result Comment: INR results are specifically intended to assess patients stabilized on long-term Anticoagulation therapy suggested INR?s ?Less Intensive Anticoagulation? 2.0 ? 3.0 Conventional Range 3.0 ? 4.5 Performed By: #### 1 [id number] #### [facility] [address] [place] [address] PT Coag (PPP) [Time] 12.5 second(s) Normal 9.4-12.5 [facility] Comment on above: Result Comment: 15 [...] the same coagulation reagent and instrumentation as [facility]. Currently there are no coagulation studies available worldwide for children to 14 days, and no normal ranges. Performed By: #### 1 [id number] #### [facility] [address] [place] [address] Troponin 0 Hr.on 08-03-2023 Troponin HS <2.30 Low 10.10-27.10 [facility] Comment on above: Result Comment: The 95% CI (Confidence Interval) PPV (Positive Predictive Value) for myocardial infarction in females is 38 pg/mL, in males 51 pg/mL. The results should be used in conjunction with clinical conditions of myocardial infarction. (Access High Sensitivity Troponin I Instructions For Use, [employer], September 2017) Performed By: #### 1 [id number] #### [facility] [address] [place] [address] Troponin 1 Hr.on 08-03-2023 Troponin HS <2.30 Low 10.10-27.10 [facility] Comment on above: Order Comment: Tropo vincent 1 hr due @ 1240 Result Comment: The 95% CI (Confidence Interval) PPV (Positive Predictive Value) for myocardial infarction in females is 38 pg/mL, in males 51 pg/mL. The results should be used in conjunction with clinical conditions of myocardial infarction. (Access High Sensitivity Troponin I Instructions For Use, [employer], September 2017) Performed By: #### 1 [id number] #### [facility] [address] [place] [address] XR Chest 2 Viewson XR Chest 2 [...] mGy = na DAP = na Normal [facility] eGFRon 08-03-2023 eGFR 74 mL/min/1.73 m2 Normal >=59 [facility] Comment on above: Order Comment: Order added by Discern Expert. Performed By: #### 1 [id number] #### [facility] [address] [place] [address] Family Medicine Phone Visit - Telehealthon 08-02-2023 [...] bedtime), # 30 cap(s), Refills(s) 0, Pharmacy: [facility]/pharmacy #[id number], 161, cm, 03/29/23 15:27:00 EST, Height/Length Dosing, 107.2, kg, 03/29/23 15:27:00 EST, Weight Dosing methylPREDNISolone, = 1 packet(s), Oral, As Directed, as directed on package labeling, X 6 day(s), # 21 tab(s), Refills(s) 0, Pharmacy: [facility]/pharmacy #[id number], 161, cm, 08/01/23 14:17:00 EDT, Height/Length Dosing, 107.3, kg, 08/01/23 14:17:00 EDT, Weight Dosing predniSONE, See Instructions, 6 tabs for 2 days,5 tabs for 2 days,4 tabs for 2 days,3 tabs for 2 days,2 tabs for 2 days,1 tab for 2 days, # 42 tab(s), Refills(s) 0, Pharmacy: [facility]/pharmacy #[id number], 161, cm, 03/29/23 15:27:00 EST, Height/Length Dosing, 107.2, kg, ... CBC w/ Auto Diff Iron Level Lab Specimen Collect [id number] Thyroid Stimulating Hormone Vitamin D 25 Hydroxy [...] (COVID-19) mRNA BNT-162b2 vax 03/12/2020 Recorded Normal [facility] Comment on above: Result Comment: Elec tronically Signed By: Cleo Hassan\.br\Date and Time Signed: 08/02/23 13:42 EDT Physician Orderon 08-02-2023 Physician Order [id number] F Normal [facility] Ambulatory Visit Summaryon 0 08-01-2023 Ambulatory [...] for choosing us for your care. Normal [facility] CBC w/ Auto Diffon 4 Anisocytosis Ql (Bld) PRESENT Invalid Interpretation Code [facility] Comment on above: Performed By: #### 2 [id number] #### [facility] Laboratory [address] [place] [address] Hypochromia Auto Ql (Bld) PRESENT Invalid Interpretation Code [facility] Comment on above: Performed By: #### 2 [id number] #### [facility] Laboratory [address] [place] [address] Microcytes Ql (Bld) PRESENT Invalid Interpretation Code [facility] Comment on above: Performed By: #### 2 556424 #### [facility] [address] [place] [address] Ovalocytes LM Ql (Bld) PRESENT Invalid Interpretation Code [facility] Comment on above: Performed By: #### 2 187370 #### [facility] [address] [place] [address] RBC size Nom (Bld) SEE MORPHOLOGY Invalid Interpretation Code [facility] Comment on above: Performed By: #### 2 628611 #### [facility] [address] [place] [address] CBC w/ Auto DiffOrdered By: SYSTEM SYSTEM on 08-01-2023 Basophils/100 WBC (Bld) 0.1 % Normal 0.0-2.0 R emisol [facility]e Comment on above: Performed By: #### 2 802934 #### [facility] [address] [place] [address] Basophils/Leukocytes Auto (Bld) [Pure # fraction] 0.0 E9/L Normal 0.0-0.2 [facility] Comment on above: Performed By: #### 2 004690 #### [facility] [address] [place] [address] Eosinophils (Bld) [#/Vol] 0.0 E9/L Normal 0.0-0.5 [facility] Comment on above: Performed By: #### 2 450926 #### [facility] [address] [place] [address] Eosinophils/100 WBC (Bld) 0.0 % Normal 0.0-8.0 [facility] Comment on above: Performed By: #### 2 875815 #### [facility] [address] [place] [address] Erythrocyte distribution width (RBC) [Ratio] 19.7 % High 10.9-14.2 [facility] Comment on above: Performed By: #### 2 657068 #### [facility] [address] [place] [address] Hematocrit (Bld) [Volume fraction] 23.0 % Low 34.0-46.0 [facility] Comment on above: Performed By: #### 2 984161 #### [facility] [address] [place] [address] Hemoglobin (Bld) [Mass/Vol] 7.1 g/dL Low 12.0-16.0 [facility] Comment on above: Performed By: #### 2 275464 #### [facility] [address] [place] [address] Lymphocytes (Bld) [#/Vol] 2.2 E9/L Normal 1.0-4.0 [facility] Comment on above: Performed By: #### 2 985445 #### [facility] [address] [place] [address] Lymphocytes/100 WBC (Bld) 28.2 % Normal 14.0-50.0 [facility] Comment on above: Performed By: #### 2 634008 #### [facility] [address] [place] [address] MCH (RBC) [Entitic mass] 21.1 pg Low 27.0-34.0 [facility] Comment on above: Performed By: #### 2 040668 #### [facility] [address] [place] [address] MCHC (RBC) [Mass/Vol] 30.9 g/dL Low 31.4-36.0 Rem isol Heme Comment on above: Performed By: #### 2 299690 #### [facility] [address] [place] [address] 61466 MCV (RBC) [Entitic vol] 68.2 fL Low 80.0-100.0 R emisol Heme Comment on above: Performed By: #### 2 517439 #### [facility] [address] [place] [address] Monocytes (Bld) [#/Vol] 0.5 E9/L Normal 0.2-1.0 R emisol Heme Comment on above: Performed By: #### 2 319630 #### [facility] [address] [place] [address] Neutrophils (Bld) [#/Vol] 5.1 E9/L Normal 2.0-7.5 [facility] Comment on above: Performed By: #### 2 693913 #### [facility] [address] [place] [address] 46[address] Neutrophils/100 WBC (Bld) 64.9 % Normal 36.0-75.0 [facility] Comment on above: Performed By: #### 2 274521 #### [facility] [address] [place] [address] Platelet 359.0 E9/L Normal 150.0-500.0 [facility] Comment on above: Performed By: #### 2 031635 #### [facility] [address] [place] [address] Platelet mean volume (Bld) [Entitic vol] 7.6 fL Normal 6.4-10.8 [facility] Comment on above: Performed By: #### 2 604165 #### [facility] [address] [place] [address] RBC (Bld) [#/Vol] 3.4 E12/L Low 4.3-5.9 Rem[facility] Comment on above: Performed By: #### 2 402323 #### [facility] [address] [place] [address] WBC corrected for nucl RBC Auto (Bld) [#/Vol] 7.9 E9/L Normal 4.0-11.0 [facility] Comment on above: Performed By: #### 2 387464 #### [facility] [address] [place] [address] CHEMISTRYOrdered By: SYSTEM SYSTEM on 08-01-2023 25-hydroxyvitamin [...] day(s), # 21 tab(s), Refills(s) 0, Pharmacy: [facility]/pharmacy #[id number], 161, cm, 08/01/23 14:17:00 EDT, Height/Length Dosing, 107.3, kg, 08/01/23 14:17:00 EDT, Weight Dosing CBC w/ Auto Diff Iron Level Lab Specimen Collect 44137 Thyroid Stimulating Hormone Vitamin D 25 Hydroxy 2. Fatigue (R53.83: Other fatigue) will check labs today Ordered: methylPREDNISolone, = 1 packet(s), Oral, As Directed, as directed on package labeling, X 6 day(s), # 21 tab(s), Refills(s) 0, Pharmacy: [facility]/pharmacy #[id number], 161, cm, 08/01/23 14:17:00 EDT, Height/Length Dosing, 107.3, kg, 08/01/23 14:17:00 EDT, Weight Dosing CBC w/ Auto Diff Iron Level Lab Specimen Collect 73646 Thyroid Stimulating Hormone Vitamin D 25 Hydroxy 3. Non-smoker (Z78.9: Other specified health status) continue not smoking Ordered: methylPREDNISolone, = 1 packet(s), Oral, As Directed, as directed on package labeling, X 6 day(s), # 21 tab(s), Refills(s) 0, Pharmacy: [facility]/pharmacy #[id number], 161, cm, 08/01/23 14:17:00 EDT, Height/Length Dosing, 107.3, kg, 08/01/23 14:17:00 EDT, Weight Dosing predniSONE, See Instructions, 6 tabs for 2 days,5 tabs for 2 days,4 tabs for 2 days,3 tabs for 2 days,2 tabs for 2 days,1 tab for 2 days, # 42 tab(s), Refills(s) 0, Pharmacy: [facility]/pharmacy #[id number], 161, cm, 03/29/23 15:27:00 EST, Height/Length Dosing, 107.2, kg, 02/... CBC w/ Auto Diff Iron Level Lab Specimen Collect 00083 Thyroid Stimulating Hormone Vitamin D 25 Hydroxy 4. BMI 40.0-44.9, adult (Z68.41: Body mass index [BMI] 40.0-44.9, adult) BMI education complete Ordered: methylPREDNISolone, = 1 packet(s), Oral, As Directed, as directed on package labeling, X 6 day(s), # 21 tab(s), Refills(s) 0, Pharmacy: [facility]/pharmacy #[id number], 161, cm, 08/01/23 14:17:00 EDT, Height/Length Dosing, 107.3, kg, 08/01/23 14:17:00 EDT, Weight Dosing predniSONE, See Instructions, 6 tabs for 2 days,5 tabs for 2 days,4 tabs for 2 days,3 tabs for 2 days,2 tabs for 2 days,1 tab for 2 days, # 42 tab(s), Refills(s) 0, Pharmacy: [facility]/pharmacy #[id number], 161, cm, 03/29/23 15:27:00 EST, Height/Length Dosing, 107.2, kg, 02/... CBC w/ Auto Diff Iron Level Lab Specimen Collect 99895 Thyroid Stimulating Hormone Vitamin D 25 Hydroxy Orders: gabapentin, 300 mg = 1 cap(s), Oral, Once a day (at bedtime), # 30 cap(s), Refills(s) 0, Pharmacy: [facility]/pharmacy #[id number], 161, cm, 03/29/23 15:27:00 EST, Height/Length [...] 03/12/2020 Recor (more content not included)... Normal [facility] Comment on above: Result Comment: Elec [...] days, # 42 tab(s), Refills(s) 0, Pharmacy: [facility]/pharmacy #[id number], 161, cm, 03/29/23 15:27:00 EST, Height/Length Dosing, 107.2, kg, 02/... 2. Low back pain (M54.50: Low back pain, unspecified) steroid sent to pharmcy Ordered: predniSONE, See Instructions, 6 tabs for 2 days,5 tabs for 2 days,4 tabs for 2 days,3 tabs for 2 days,2 tabs for 2 days,1 tab for 2 days, # 42 tab(s), Refills(s) 0, [id number] 161, cm, 03/29/23 15:27:00 EST, Height/Length Dosing, 107.2, kg, 02/... 3. BMI 40.0-44.9, adult (Z68.41: Body mass index [BMI] 40.0-44.9, adult) BMI education complete Ordered: predniSONE, See Instructions, 6 tabs for 2 days,5 tabs for 2 days,4 tabs for 2 days,3 tabs for 2 days,2 tabs for 2 days,1 tab for 2 days, # 42 tab(s), Refills(s) 0, Pharmacy: [facility]/pharmacy #[id number], 161, cm, 03/29/23 15:27:00 EST, Height/Length Dosing, 107.2, kg, 02/... 4. Non-smoker (Z78.9: Other specified health status) continue not smoking Ordered: predniSONE, See Instructions, 6 tabs for 2 days,5 tabs for 2 days,4 tabs for 2 days,3 tabs for 2 days,2 tabs for 2 days,1 tab for 2 days, # 42 tab(s), Refills(s) 0, Pharmacy: [facility]/pharmacy #[id number], 161, cm, 03/29/23 15:27:00 EST, Height/Length [...] (COVID-19) mRNA BNT-162b2 vax 03/12/2020 Recorded Normal [facility] Comment on above: Result Comment: Elec tronically Signed By: Cleo Hassan\.br\Date and Time Signed: 03/30/23 12:42 EST ED Note-Physicianon 01-26-20 ED Note-Physician [id number] 2019 [id number] F Normal [facility] Family Medicine Office/Clini c Noteon 01-25-2023 Family Medicine Office/Clinic Note HPI Staff Morro is a 37 year old female presenting to discuss results ER followup: Hospital: [facility] Visit date: 01/05/23 Symptoms the patient [...] Metabolic Panel eGFR HgbA1c Lab Specimen Collect 56256 2. Non-smoker (Z78.9: Other specified health status) continue not smoking Ordered: Automated Diff CBC w/ Auto Diff Comprehensive Metabolic Panel eGFR HgbA1c Lab Specimen Collect 68934 3. Elevated WBCs (D72.829: Elevated white blood cell count, unspecified) WBC's were elevated when in hospital for asthma exacerbation. WBC's were elevated Ordered: Automated Diff CBC w/ Auto Diff Comprehensive Metabolic Panel eGFR HgbA1c Lab Specimen Collect 23485 4. Elevated creatine kinase (R74.8: Abnormal levels of other serum enzymes) CMP drawn in office today. will follow up on labs Ordered: Automated Diff CBC w/ Auto Diff Comprehensive Metabolic Panel eGFR HgbA1c Lab Specimen Collect 03648 5. Weight gain (R63.5: Abnormal weight gain) pt is going to look into [facility] if she is eligible for $25 co pay. will call office if she is eligible Ordered: Lab Specimen Collect 12042 6. BMI 40.0-44.9, adult (Z68.41: Body mass [...] mRNA BNT-162b2 vax 03/12/2020 Recorded Normal [facility] Comment on above: Result Comment: Elec [...] for choosing us for your care. Normal [facility] Auto Diffon 01-24-2023 Basophils/100 WBC (Bld) 1.2 % Normal 0.0-2.0 [facility] Comment on above: Order Comment: Order Added by Discern Expert. Performed By: #### 2 156163, 97462945, 0488731, 560175526, 0755892 ####[facility] [address] [place] [address] Basophils/Leukocytes Auto (Bld) [Pure # fraction] 0.1 E9/L Normal 0.0-0.2 [facility] Comment on above: Order Comment: Order Added by Discern Expert. Performed By: #### 2 240878, 89301054, 6891696, 401522093, 7895092 ####[facility] [address] [place] [address] Eosinophils/100 WBC (Bld) 4.7 % Normal 0.0-8.0 [facility] Comment on above: Order Comment: Order Added by Felicita Expert. Performed By: #### 2 780515, 74526559, 4042365, 546285835, 6860115 ####[facility] [address] [place] [address] Eosinophils/Leukocytes Auto (Bld) [Pure # fraction] 0.5 E9/L Normal 0.0-0.5 [facility] Comment on above: Order Comment: Order Added by Felicita Expert. Performed By: #### 2 618688, 65397074, 5041790, 456705993, 0879397 ####[address] [address] Lymphocytes/100 WBC (Bld) 34.2 % Normal 14.0-50.0 [facility] Comment on above: Order Comment: Order Added by Felicita Expert. Performed By: #### 2 055002, 32528285, 1424971, 664326566, 2978798 ####[address] [address] Lymphocytes/Leukocytes Auto (Bld) [Pure # fraction] 3.4 E9/L Normal 1.0-4.0 [facility] Comment on above: Order Comment: Order Added by Felicita Expert. Performed By: #### 2 351631, 83316801, 6508784, 266606860, 3181531 ####[address] [address] Monocytes/100 WBC (Bld) 6.7 % Normal 4.0-14.0 [facility] Comment on above: Order Comment: Order Added by Felicita Expert. Performed By: #### 2 233563, 68384491, 1283474, 959687998, 8690684 ####[facility] [address] [place] [address] Monocytes/Leukocytes Auto (Bld) [Pure # fraction] 0.7 E9/L Normal 0.2-1.0 [facility] Comment on above: Order Comment: Order Added by Discern Expert. Performed By: #### 2 388443, 99158938, 4573524, 702565712, 2547334 ####[address] [place] [address] Neutrophils/100 WBC (Bld) 53.2 % Normal 36.0-75.0 [facility] Comment on above: Order Comment: Order Added by Discern Expert. Performed By: #### 2 785702, 62306919, 0560512, 398366830, 8957944 ####[address] [place] [address] Neutrophils/Leukocytes Auto (Bld) [Pure # fraction] 5.4 E9/L Normal 2.0-7.5 [facility] Comment on above: Order Comment: Order Added by Discern Expert. Performed By: #### 2 417739, 29015291, 6780718, 286769940, 6532828 ####[address] [address] CBC w/ Auto Diffon 3 Erythrocyte distribution width (RBC) [Ratio] 16.7 % High 10.9-14.2 [facility] Comment on above: Performed By: #### 2 762695, 65203809, 1811251, 078812037, 9493966 ####[facility] [address] [place] [address] Hematocrit (Bld) [Volume fraction] 38.2 % Normal 34.0-46.0 [facility] Comment on above: Performed By: #### 2 695576, 88931632, 8693778, 229671454, 8919696 ####[facility] [address] [place] [address] Hemoglobin (Bld) [Mass/Vol] 12.3 g/dL Normal 12.0-16.0 [facility] Comment on above: Performed By: #### 2 584421, 71750745, 7911840, 874586728, 1958112 ####[facility] [address] [place] [address] MCH (RBC) [Entitic mass] 26.4 pg Low 27.0-34.0 [facility] Comment on above: Performed By: #### 2 073924, 68440936, 6601057, 915973341, 2147086 ####[address] [address] MCHC (RBC) [Mass/Vol] 32.3 g/dL Normal 31.4-36.0 [facility] Comment on above: Performed By: #### 2 352006, 53719695, 4496742, 517797625, 7326586 ####[place] MCV (RBC) [Entitic vol] 81.8 fL Normal 80.0-100.0 [facility] Comment on above: Performed By: #### 2 128550, 23360235, 7860134, 851715671, 0273535 ####[address] [address] Platelet mean volume (Bld) [Entitic vol] 8.1 fL Normal 6.4-10.8 [facility] Comment on above: Performed By: #### 2 801483, 19520194, 4148239, 674043243, 5592734 ####[address] [address] Platelets (Bld) [#/Vol] 334.0 E9/L Normal 150.0-500.0 [facility] Comment on above: Performed By: #### 2 887790, 49509764, 1454720, 046138865, 7320853 ####[address] [address] RBC (Bld) [#/Vol] 4.7 E12/L Normal 4.3-5.9 [facility] Comment on above: Performed By: #### 2 175312, 80084680, 3995875, 033836643, 5571299 ####[facility] [address] [place] [address] WBC corrected for nucl RBC Auto (Bld) [#/Vol] 10.1 E9/L Normal 4.0-11.0 [facility] Comment on above: Performed By: #### 2 615630, 91181113, 1952080, 512891293, 6433607 ####[facility] [address] [place] [address] CMPon 01-24-2023 Albumin [Mass/Vol] 3.9 g/dL Normal 3.3-5.0 [facility] Comment on above: Performed By: #### 2 137375, 53958341, 3343991, 359609687, 8735448 ####[address] [place] [address] Albumin/Globulin (S) [Mass conc ratio] 1.3 Normal 1.1-2.2 [facility] Comment on above: Performed By: #### 2 415551, 47989752, 2166471, 938347236, 5003544 ####[address] [place] [address] ALP [Catalytic activity/Vol] 81 Int._Unit/L Normal 21-98 [facility] Comment on above: Performed By: #### 2 994892, 22830216, 9320097, 330166619, 9792743 ####[facility] [address] [place] [address] ALT No additional P-5'-P [Catalytic activity/Vol] 14 Int._Unit/L Normal 6-46 [facility] Comment on above: Performed By: #### 2 141466, 86059964, 1240384, 507066751, 6251575 ####[address] [place] [address] Anion gap [Moles/Vol] 9 mmol/L Normal 6-16 [facility] Comment on above: Performed By: #### 2 799008, 36411129, 6515092, 319681978, 6611097 ####[facility] [address] [place] [address] AST [Catalytic activity/Vol] 18 Int._Unit/L Normal 5-43 [facility] Comment on above: Performed By: #### 2 136820, 70201299, 3742425, 209939530, 9560973 ####[facility] [address] [place] [address] Bilirubin [Mass/Vol] 0.2 mg/dL Normal 0.0-1.1 [facility] Comment on above: Performed By: #### 2 731745, 45681467, 3940416, 344889192, 6524258 ####[facility] [address] [place] [address] Calcium [Mass/Vol] 8.9 mg/dL Normal 8.9-11.1 [facility] Comment on above: Performed By: #### 2 279366, 38549591, 6815489, 314139093, 3373325 ####[facility] [address] [place] [address] Chloride [Moles/Vol] 104 mmol/L Normal 101-111 [facility] Comment on above: Performed By: #### 2 895449, 05617819, 6600466, 152364663, 7380210 ####[facility] [address] [place] [address] CO2 [Moles/Vol] 25 mmol/L Normal 21-31 [facility] Comment on above: Performed By: #### 2 619965, 19119652, 3777152, 276445440, 8324208 ####[facility] [address] [place] [address] Creatinine [Mass/Vol] 1.1 mg/dL Normal 0.5-1.3 [facility] Comment on above: Performed By: #### 2 453318, 76943120, 2777676, 385077487, 2082714 ####[facility] [address] [place] [address] Globulin (S) [Mass/Vol] 3.1 g/dL Normal 1.4-4.0 [facility] Comment on above: Performed By: #### 2 988396, 59205211, 9152931, 441094657, 9139248 ####[facility] [address] [place] [address] Glucose [Mass/Vol] 87 mg/dL Normal 55-199 [facility] Comment on above: Result Comment: If t his glucose result represents a fasting glucose, interpretation should refer to the following reference range: 55-99 mg/dL Performed By: #### 2 062415, 47521689, 5633950, 407165960, 1386190 ####[facility] [address] [place] [address] Potassium [Moles/Vol] 4.3 mmol/L Normal 3.5-5.3 [facility] Comment on above: Performed By: #### 2 214415, 02940520, 6802943, 483446460, 6475564 ####[facility] [address] [place] [address] Protein [Mass/Vol] 7.0 g/dL Normal 6.0-7.8 [facility] Comment on above: Performed By: #### 2 919433, 21563508, 3317366, 358372688, 0993713 ####[facility] [address] [place] [address] Sodium [Moles/Vol] 134 mmol/L Low 135-145 [facility] Comment on above: Performed By: #### 2 133136, 04971346, 4963467, 194293964, 0927921 ####[facility] [address] [place] [address] Urea nitrogen [Mass/Vol] 13 mg/dL Normal 5-21 [facility] Comment on above: Performed By: #### 2 361151, 28651383, 2726138, 108345564, 8515684 ####[facility] [address] [place] [address] Urea nitrogen/Creatinine [Mass ratio] 12 No Units Normal 10-20 [facility] Comment on above: Performed By: #### 2 850552, 12178829, 7238207, 370644220, 4586630 ####[facility] [address] [place] [address] XwkA5wvg 01-24-2023 HbA1c (Bld) [Mass fraction] 5.9 % Normal <=5.9 [facility] Comment on above: Performed By: #### 2 170719, 38174312, 5427868, 199699661, 5089779 ####[facility] [address] [place] [address] eGFRon 01-24-2023 GFR/1.73 sq M.predicted among non-blacks MDRD (S/P/Bld) [Vol rate/Area] 66 mL/min/1.73 m2 Normal >=59 [facility] Comment on above: Order Comment: Order added by Discern Expert. Result Comment: Zipper Trimmer Hand yasemin kidney disease could be indicated at eGFR's of less than 60 mL/min/1.73m2. Kidney failure is indicated at less than 15 mL/min/1.73m2. Performed By: #### 2 154786, 62722513, 6625242, 871444477, 6574977 ####[facility] [address] [place] [address] Reminderson 10-21-2022 Reminders - From: Cleo Hassan [...] 37.3 % (14.0 - 50.0) 10/18/2022 14:25 [place] Auto 4.6 % (4.0 - 14.0) 10/18/2022 14:25 Eos Auto 3.4 % (0.0 - 8.0) 10/18/2022 14:25 Basophil Auto 1.1 % (0.0 - 2.0) 10/18/2022 14:25 Neutro Absolute 4.3 E9/L (2.0 - 7.5) 10/18/2022 14:25 Lymph Absolute 3.0 E9/L (1.0 - 4.0) 10/18/2022 14:25 [place] Absolute 0.4 E9/L (0.2 - 1.0) 10/18/2022 [...] full unable to LVM. From: Carmel Ledbetter ([facility] - Clinical) To: Cleo Hassan; Sent: 10/21/2022 09:19:55 EDT Show up: 10/21/2022 09:19:00 EDT Subject: RE: Ambulatory Reminder notified patient of labs results. Pt states she is concerned about a growth on her thyroid she said before her thyroid levels were normal and didn't show anything. She said she can feel something pushing against her esophagus. From: Cleo Hassan To: [facility] - Clinical; Sent: 10/21/2022 09:24:10 EDT Show up: 10/21/2022 09:24:00 EDT Subject: RE: Ambulatory Reminder will send order to [facility]. pt notified Normal [facility] T3 Freeon 10-20-2022 Free T3 [Mass/Vol] 2.8 pg/mL Invalid Interpretation Code 2.0-4.4 [facility] Comment on above: Result Comment: Perf ormed at: [facility] [address] [id number] PhD Susan Cadet Performed By: #### 2 231205, 3061285, 8113549, 8288957, 7948879, 54659962, 6777785, 8162119 ####[facility] [address] [place] [address] Medication Consenton 023 Medication Consent [id number] 8022 [id number]: 127 Normal [facility] Ambulatory Visit Summaryon 0 10-18-2022 Ambulatory [...] as needed for for wheezing Pickup at [facility] 5844 Unchanged eszopiclone (eszopiclone 3 mg Tab) 1 Tablets By Mouth Once a day (at bedtime) as needed for for insomnia Unchanged fluticasone-salmeterol (Advair Diskus 500 mcg-50 mcg inhalation powder) See instructions 2 puffs at bedtime Unchanged lamotrigine (lamotrigine 150 mg Tab) Unchanged lurasidone (lurasidone 60 mg oral tablet) 1 Tablets By Mouth Every day Unchanged sertraline (sertraline 100 mg Tab) Pharmacy Information [facility] 1622: [address] [facility] [address] [place], [place] [id number] [phone] Allergies No Known Allergies Problems Ongoing - Any problem that you are currently receiving treatment for. Asthma Cyst of thyroid Weight gain Wellness examination Normal [facility] Auto Diffon 10-18-2022 Basophils/100 WBC (Bld) 1.1 % Normal 0.0-2.0 [facility] Comment on above: Order Comment: Order Added by Discern Expert. Performed By: #### 2 390742, 9599021, 2132676, 2706764, 5020110, 52860301, 2233107, 2366037 ####[facility] [address] [place] [address] Basophils/Leukocytes Auto (Bld) [Pure # fraction] 0.1 E9/L Normal 0.0-0.2 [facility] Comment on above: Order Comment: Order Added by Discern Expert. Performed By: #### 2 569903, 6023019, 1148426, 9796896, 4393644, 90117354, 1102767, 7151079 ####[facility] [address] [place] [address] Eosinophils/100 WBC (Bld) 3.4 % Normal 0.0-8.0 [facility] Comment on above: Order Comment: Order Added by Discern Expert. Performed By: #### 2 451027, 1785767, 5826288, 1540665, 0155477, 40188288, 5372507, 1084133 ####[facility] [address] [place] [address] Eosinophils/Leukocytes Auto (Bld) [Pure # fraction] 0.3 E9/L Normal 0.0-0.5 [facility] Comment on above: Order Comment: Order Added by Discern Expert. Performed By: #### 2 685952, 9697490, 1019027, 6404116, 0571292, 51926112, 2480154, 5318571 ####[address] [place] [address] Lymphocytes/100 WBC (Bld) 37.3 % Normal 14.0-50.0 [facility] Comment on above: Order Comment: Order Added by Discern Expert. Performed By: #### 2 906251, 6329357, 8838388, 7708860, 4074171, 55813735, 1593242, 2287139 ####[address] [place] [address] Lymphocytes/Leukocytes Auto (Bld) [Pure # fraction] 3.0 E9/L Normal 1.0-4.0 [facility] Comment on above: Order Comment: Order Added by Discern Expert. Performed By: #### 2 477795, 7578862, 2807840, 6343255, 4665185, 80649995, 6837722, 2549247 ####[address] [address] Monocytes/100 WBC (Bld) 4.6 % Normal 4.0-14.0 [facility] Comment on above: Order Comment: Order Added by Discern Expert. Performed By: #### 2 833338, 6524214, 9013750, 6364311, 8396640, 35906746, 5198750, 3812472 ####[address] [place] [address] Monocytes/Leukocytes Auto (Bld) [Pure # fraction] 0.4 E9/L Normal 0.2-1.0 [facility] Comment on above: Order Comment: Order Added by Discern Expert. Performed By: #### 2 220542, 3905640, 7812117, 2519069, 1321869, 29246637, 6338428, 1996998 ####[address] [place] [address] Neutrophils/100 WBC (Bld) 53.6 % Normal 36.0-75.0 [facility] Comment on above: Order Comment: Order Added by Discern Expert. Performed By: #### 2 507148, 5945022, 6976481, 7205768, 4224589, 65183330, 2291346, 2124225 ####[facility] [address] [place] [address] Neutrophils/Leukocytes Auto (Bld) [Pure # fraction] 4.3 E9/L Normal 2.0-7.5 [facility] Comment on above: Order Comment: Order Added by Discern Expert. Performed By: #### 2 506884, 3737131, 9057228, 0411031, 6721099, 99848758, 3594962, 9263017 ####[address] [place] [address] CBC w/ Auto Diffon 3 Erythrocyte distribution width (RBC) [Ratio] 18.0 % High 10.9-14.2 [facility] Comment on above: Performed By: #### 2 606377, 7533775, 0689282, 2557661, 1915155, 20540200, 9934756, 5597700 ####[address] [place] [address] Hematocrit (Bld) [Volume fraction] 37.2 % Normal 34.0-46.0 [facility] Comment on above: Performed By: #### 2 934753, 3072922, 3007741, 2757302, 9818757, 07137306, 9342654, 3956778 ####[address] [address] Hemoglobin (Bld) [Mass/Vol] 12.0 g/dL Normal 12.0-16.0 [facility] Comment on above: Performed By: #### 2 662537, 6926544, 4436876, 3263591, 0631227, 15004716, 9100684, 6088737 ####[address] [place] [address] MCH (RBC) [Entitic mass] 26.2 pg Low 27.0-34.0 [facility] Comment on above: Performed By: #### 2 330859, 0564741, 4589775, 0278633, 3540547, 50627631, 4303288, 0406367 ####[facility] [address] [place] MCHC (RBC) [Mass/Vol] 32.3 g/dL Normal 31.4-36.0 [facility] Comment on above: Performed By: #### 2 391786, 4785377, 9182817, 5660793, 9427387, 96676856, 9891604, 9620032 ####[facility] [address] [place] [address] MCV (RBC) [Entitic vol] 81.2 fL Normal 80.0-100.0 [facility] Comment on above: Performed By: #### 2 165524, 2970949, 9686253, 6194095, 3934883, 22717419, 7810341, 8409270 ####[address] Platelet mean volume (Bld) [Entitic vol] 7.8 fL Normal 6.4-10.8 [facility] Comment on above: Performed By: #### 2 905597, 9617374, 0689115, 2227610, 6861944, 58539761, 7934278, 9623580 ####[address] [address] Platelets (Bld) [#/Vol] 312.0 E9/L Normal 150.0-500.0 [facility] Comment on above: Performed By: #### 2 063221, 1719695, 2933187, 2962619, 6187100, 55755956, 7700513, 1490092 ####[address] [address] RBC (Bld) [#/Vol] 4.6 E12/L Normal 4.3-5.9 [facility] Comment on above: Performed By: #### 2 976407, 7574514, 5563880, 6900219, 9858644, 97415870, 4016341, 0471260 ####[facility] [address] [place] [address] WBC corrected for nucl RBC Auto (Bld) [#/Vol] 8.0 E9/L Normal 4.0-11.0 [facility] Comment on above: Performed By: #### 2 611669, 0460395, 5170488, 1119563, 9932825, 22149369, 9490545, 7596254 ####[facility] [address] [place] [address] CHEMISTRYOrdered By: SYSTEM SYSTEM on 10-18-2022 Albumin [...] 10-18-2022 Albumin [Mass/Vol] 4.0 g/dL Normal 3.3-5.0 [facility] Comment on above: Performed By: #### 2 443156, 6977276, 0463582, 4467971, 8201611, 84742689, 9370796, 9319865 ####[facility] [address] [place] [address] Albumin/Globulin (S) [Mass conc ratio] 1.3 Normal 1.1-2.2 [facility] Comment on above: Performed By: #### 2 749762, 0606964, 5477747, 4281066, 2669830, 57262047, 7475368, 9383256 ####[facility] [address] [place] [address] ALP [Catalytic activity/Vol] 85 Int._Unit/L Normal 21-98 [facility] Comment on above: Performed By: #### 2 036734, 5698726, 1618908, 4387821, 6012008, 41935879, 7119271, 2650473 ####[facility] [address] [place] [address] ALT No additional P-5'-P [Catalytic activity/Vol] 12 Int._Unit/L Normal 6-46 [facility] Comment on above: Performed By: #### 2 856984, 0688474, 7895117, 8498679, 5239842, 34472452, 5396467, 5822649 ####[facility] [address] [place] [address] Anion gap [Moles/Vol] 13 mmol/L Normal 6-16 [facility] Comment on above: Performed By: #### 2 196118, 2643098, 4349641, 3884435, 2064237, 59856352, 3978419, 6339101 ####[facility] [address] [place] [address] AST [Catalytic activity/Vol] 20 Int._Unit/L Normal 5-43 [facility] Comment on above: Performed By: #### 2 083223, 0434820, 9394165, 8324588, 4994445, 88005862, 5948635, 7856596 ####[facility] [address] [place] [address] Bilirubin [Mass/Vol] 0.2 mg/dL Normal 0.0-1.1 [facility] Comment on above: Performed By: #### 2 716835, 2584798, 0735650, 3213392, 1580786, 37772442, 0238459, 0540662 ####[facility] [address] [place] [address] Calcium [Mass/Vol] 9.1 mg/dL Normal 8.9-11.1 [facility] Comment on above: Performed By: #### 2 316445, 6614193, 2970404, 0604697, 1546955, 18174982, 0982723, 2284788 ####[facility] [address] [place] [address] Chloride [Moles/Vol] 106 mmol/L Normal 101-111 [facility] Comment on above: Performed By: #### 2 550957, 5214032, 4836259, 0524610, 9587436, 50815916, 9937170, 4633096 ####[facility] [address] [place] [address] CO2 [Moles/Vol] 22 mmol/L Normal 21-31 [facility] Comment on above: Performed By: #### 2 654381, 1260795, 4727746, 4668576, 4496944, 18690250, 2881887, 2951584 ####[facility] [address] [place] [address] Creatinine [Mass/Vol] 1.1 mg/dL Normal 0.5-1.3 [facility] Comment on above: Performed By: #### 2 230730, 1223833, 2978829, 1028690, 4183584, 43766162, 3095778, 6449722 ####[facility] [address] [place] [address] Globulin (S) [Mass/Vol] 3.0 g/dL Normal 1.4-4.0 [facility] Comment on above: Performed By: #### 2 788925, 5684144, 8822671, 7897570, 6926206, 79897762, 9459608, 1525966 ####[facility] [address] [place] [address] Glucose [Mass/Vol] 130 mg/dL Normal 55-199 [facility] Comment on above: Result Comment: If t his glucose result represents a fasting glucose, interpretation should refer to the following reference range: 55-99 mg/dL Performed By: #### 2 617230, 8391041, 1889877, 0114543, 6225392, 42223320, 2084159, 3872944 ####[facility] [address] [place] [address] Potassium [Moles/Vol] 4.0 mmol/L Normal 3.5-5.3 [facility] Comment on above: Performed By: #### 2 018212, 6775856, 1921203, 2107074, 9711983, 00013175, 1830344, 7486937 ####[facility] [address] [place] [address] Protein [Mass/Vol] 7.0 g/dL Normal 6.0-7.8 [facility] Comment on above: Performed By: #### 2 847418, 4306534, 8659997, 4955300, 5569931, 32567999, 5761772, 6136257 ####[facility] [address] [place] [address] Sodium [Moles/Vol] 137 mmol/L Normal 135-145 [facility] Comment on above: Performed By: #### 2 087137, 7981458, 2780762, 8754922, 5789507, 07095732, 4645833, 5678712 ####[facility] [address] [place] [address] Urea nitrogen [Mass/Vol] 15 mg/dL Normal 5-21 [facility] Comment on above: Performed By: #### 2 916176, 0330542, 9213114, 8829886, 4583879, 41849860, 6156044, 2424573 ####[facility] [address] [place] [address] Urea nitrogen/Creatinine [Mass ratio] 14 No Units Normal 10-20 [facility] Comment on above: Performed By: #### 2 026011, 3872105, 4184520, 1274483, 3501025, 89112704, 3104453, 1738790 ####[facility] [address] [place] [address] Family Medicine Office/Clini c Noteon 10-18-2022 Family Medicine Office/Clinic Note HPI Staff Morro is a 37 year old female establishing care Establish Care: History: Any previous diagnosis: Asthma, Bi Polar, spondlythisis L4, PCOS History of seeing any specialist: Rolly almas When was your last doctors visit: Last [...] Daily, # 30 tab(s), Refills(s) 0, [facility], cm, 10/18/22 14:05:00 EDT, Height/Length Dosing, 105.6, kg, 10/18/22 13:58:00 EDT, Weight Dosing CBC w/ Auto Diff Comprehensive Metabolic Panel Free T4 Lab Specimen Collect 86034 Lipid Panel T3 Free Thyroid Stimulating Hormone 2. Weight gain (R63.5: Abnormal weight gain) pt would like to discuss weight loss. has done well on adipex in the past. medication agreement signed Ordered: phentermine, 37.5 mg = 1 tab(s), Oral, Daily, # 30 tab(s), Refills(s) 0, [facility], 161, cm, 10/18/22 14:05:00 EDT, Height/Length Dosing, 105.6, kg, 10/18/22 13:58:00 EDT, Weight Dosing CBC w/ Auto Diff Comprehensive Metabolic Panel Free T4 Lab Specimen Collect [id number] Lipid Panel T3 Free Thyroid Stimulating Hormone [...] Daily, # 30 tab(s), Refills(s) 0, [facility] 161, cm, 10/18/22 14:05:00 EDT, Height/Length Dosing, 105.6, kg, 10/18/22 13:58:00 EDT, Weight Dosing 4. Asthma (J45.909: Unspecified asthma, uncomplicated) albuterol refilled Ordered: phentermine, 37.5 mg = 1 tab(s), Oral, Daily, # 30 tab(s), Refills(s) 0, [facility], 161, cm, 10/18/22 14:05:00 EDT, Height/Length Dosing, 105.6, kg, 10/18/22 13:58:00 EDT, Weight Dosing 5. BMI 40.0-44.9, adult (Z68.41: Body mass index [BMI] 40.0-44.9, adult) BMI education complete Ordered: phentermine, 37.5 mg = 1 tab(s), Oral, Daily, # 30 tab(s), Refills(s) 0, Pharmacy: [facility]28, 161, cm, 10/18/22 14:05:00 EDT, Height/Length Dosing, 105.6, kg, 10/18/22 13:58:00 EDT, Weight Dosing CBC w/ Auto Diff Comprehensive Metabolic Panel Free T4 Lab Specimen Collect 06099 Lipid Panel T3 Free Thyroid Stimulating Hormone 6. Non-smoker (Z78.9: Other specified health status) continue not smoking Ordered: phentermine, 37.5 mg = 1 tab(s), Oral, Daily, # 30 tab(s), Refills(s) 0, Pharmacy: [facility] 1628, 161, cm, 10/18/22 14:05:00 EDT, Height/Length Dosing, 105.6, kg, 10/18/22 13:58:00 EDT, Weight Dosing CBC w/ Auto Diff Comprehensive Metabolic Panel Free T4 Lab Specimen Collect 63118 Lipid Panel T3 Free Thyroid Stimulating Hormone Orders: albuterol, 2 puff(s), Inhalation, q4hr for wheezing, 18 gram, Refill(s) 0, [facility], 161, cm, 10/18/22 14:05:00 EDT, Height/Length Dosing, 105.6, kg, 10/18/22 13:58:00 EDT, Weight Dosing Follow-up No qualifying data available Problem List/Past Medical History Ongoing Asthma Cyst of thyroid Weight gai (more content not included)... Normal [facility] Comment on above: Result Comment: Elec tronically Signed By: Cleo Hassan\.br\Date and Time Signed: 10/18/22 14:32 EDT Free T4on 10-18-2022 Free T4 [Mass/Vol] 0.59 ng/dL Normal 0.58-1.64 [facility] Comment on above: Performed By: #### 2 071302, 2387029, 6121624, 9966186, 8907433, 70566099, 9062672, 4602295 ####[facility] [address] [place] [address] HEMATOLOGYOrdered By: SYSTEM SYSTEM on 10-18-2022 Basophils/100 [...] 32.3 g/dL Normal 31.4 - 36.0 gm/dL [facility] HemeAutoSS MCV (RBC) [Entitic vol] 81.2 fL Normal 80.0 - 100.[address] [facility] HemeAutoSS Platelet mean volume (Bld) [Entitic vol] 7.8 fL Normal 6.4 - 10.[address] [facility] HemeAutoSS Platelets (Bld) [#/Vol] 312.0 E9/L Normal 150. 0 - 500.0 E9/L [facility] HemeAutoSS RBC (Bld) [#/Vol] 4.6 E12/L Normal 4.3 - 5.9 E12/L [facility] HemeAutoSS WBC corrected for nucl RBC Auto (Bld) [#/Vol] 8.0 E9/L Normal 4.0 - 11.0 E9/L [facility] HemeAutoSS Lipid Panelon 10-18-2022 Cholesterol [Mass/Vol] 240 mg/dL High 120-200 [facility] Comment on above: Performed By: #### 2 797522, 1360334, 6348929, 2269100, 6738180, 23106653, 7599067, 8650468 ####[facility] [address] [place] [address] Cholesterol in HDL [Mass/Vol] 44 mg/dL Invalid Interpretation Code [facility] Comment on above: Result Comment: HDL > or equal to 60 mg/dL: Low cardiovascular risk HDL < 40 mg/dL : High cardiovascular risk Performed By: #### 2 738045, 9306207, 3520649, 2452326, 3289929, 74431172, 2433705, 7823744 ####[facility] [address] [place] [address] Cholesterol in LDL [Mass/Vol] 164 mg/dL High <=129 [facility] Comment on above: Performed By: #### 2 283975, 8181131, 5137762, 6049035, 2720983, 23246187, 4788659, 7673600 ####[facility] [address] [place] [address] Cholesterol in VLDL [Mass/Vol] 45 mg/dL High 7-40 [facility] Comment on above: Performed By: #### 2 648863, 2255438, 2104448, 3556496, 8796385, 88178723, 0446783, 6980936 ####[facility] [address] [place] [address] Triglyceride [Mass/Vol] 227 mg/dL High <=149 [facility] Comment on above: Performed By: #### 2 251328, 1953035, 6882104, 5839264, 3037748, 62896391, 4158579, 6739268 ####[facility] [address] [place] [address] TSHon 10-18-2022 TSH Qn 1.59 m[IU]/L Normal 0.34-5.60 [facility] Comment on above: Performed By: #### 2 765668, 7848169, 2984207, 0378559, 8357849, 04884328, 7279854, 0487298 ####[facility] [address] [place] [address] eGFRon 10-18-2022 GFR/1.73 sq M.predicted among non-blacks MDRD (S/P/Bld) [Vol rate/Area] 66 mL/min/1.73 m2 Normal >=59 [facility] Comment on above: Order Comment: Order added by Discern Expert. Result Comment: Zipper Trimmer Hand yasemin kidney disease could be indicated at eGFR's of less than 60 mL/min/1.73m2. Kidney failure is indicated at less than 15 mL/min/1.73m2. Performed By: #### 2 471995, 7746851, 9165768, 6777136, 6744244, 95924196, 4360852, 2999707 ####[facility] [address] [place] [address] XR KNEE RT 4V or >on 023 [...] WENDY ROMAN Date: 2022-06-28 05:24 Normal [facility] COVID CepheidOrdered By: PRO VIDER TEMP on 02-08-2022 SARS-CoV-2 (COVID-19) Ab IA Ql Negative Negative [facility] Comment on above: This is a duplicate Cepheid Xpert Xpress CoV-2/Flu/RSV Plus RNA by RT-PCR result to be used for statistical tracking purpose only. COVID CepheidOrdered By: Latrice Terry on 02-08-2022 SARS-CoV-2 (COVID-19) RNA GERALD+probe Ql (Unsp spec) [facility] Basophils Auto (Bld) [#/Vol] Ordered By: Nan Brand on 12-28-2021 Basophils (Bld) [#/Vol] 0.0 10*3/uL 0.0-0.2 [facility] Basophils/100 WBC Auto (Bld) Ordered By: Nan Brand on 12-28-2021 Basophils/100 WBC (Bld) 0.4 % . [facility] Creatinine and Glomerular fi ltration rate.predicted panel (S/P/Bld)Ordered By: Nan Brand on 12-28-2021 Creatinine [Mass/Vol] 0.94 mg/dL 0.44-1.03 [facility] Eosinophils Auto (Bld) [#/Vo l]Ordered By: Nan Brand on 12-28-2021 Eosinophils (Bld) [#/Vol] 0.0 10*3/uL 0.0-0.45 [facility] Eosinophils/100 WBC Auto (Bl d)Ordered By: Nan Brand on 12-28-2021 Eosinophils/100 WBC (Bld) 0.0 % . [facility] Erythrocyte distribution wid th Auto (RBC) [Ratio]Ordered By: Nan Brand on 12-28-2021 Erythrocyte distribution width (RBC) [Ratio] 17.6 % 11.9-15.3 [facility] Estimated glomerular filtrat ion rate (GFR) non- AmericanOrdered By: Nan Brand on 12-28-2021 GFR/1.73 sq M.predicted among non-blacks MDRD (S/P/Bld) [Vol rate/Area] > 60 mL/Min [facility] Hematocrit Auto (Bld) [Volum e fraction]Ordered By: Nan Brand on 12-28-2021 Hematocrit (Bld) [Volume fraction] 39.3 % 34.0-46.4 [facility] Hemoglobin [Mass/volume] in BloodOrdered By: Nan Brand on 12-28-2021 Hemoglobin (Bld) [Mass/Vol] 12.6 g/dL 11.8-15.4 [facility] Laboratory - Hematology and Cell countsOrdered By: Nan Brand on 12-28-2021 Nucleated RBC/100 WBC (Bld) [Ratio] 0.0 % 0-0.5 [facility] Leukocytes [#/volume] in Blo od by Automated countOrdered By: Nan Brand on 12-28-2021 WBC (Bld) [#/Vol] 11.2 10*3/uL 4.5-11.0 [facility] Lymphocytes Auto (Bld) [#/Vo l]Ordered By: Nan Brand on 12-28-2021 Lymphocytes (Bld) [#/Vol] 1.0 10*3/uL 1.00-4.8 [facility] Lymphocytes/100 WBC Auto (Bl d)Ordered By: Nan Brand on 12-28-2021 Lymphocytes/100 WBC (Bld) 8.7 % . [facility] MCH Auto (RBC) [Entitic mass ]Ordered By: Nan Brand on 12-28-2021 MCH (RBC) [Entitic mass] 26.5 pg 24.7-34.3 [facility] MCHC Auto (RBC) [Mass/Vol]Or dered By: Nan Brand on 12-28-2021 MCHC (RBC) [Mass/Vol] 32.1 g/dL 32.0-35.0 [facility] MCV Auto (RBC) [Entitic vol] Ordered By: Nan Brand on 12-28-2021 MCV (RBC) [Entitic vol] 82.6 fL 80-100 [facility] Monocytes Auto (Bld) [#/Vol] Ordered By: Nan Brand on 12-28-2021 Monocytes (Bld) [#/Vol] 0.1 10*3/uL 0.0-0.8 [facility] Monocytes/100 WBC Auto (Bld) Ordered By: Nan Brand on 12-28-2021 Monocytes/100 WBC (Bld) 1.3 % . [facility] Neutrophils Auto (Bld) [#/Vo l]Ordered By: Nan Brand on 12-28-2021 Neutrophils (Bld) [#/Vol] 10.0 10*3/uL 1.8-7.7 [facility] Neutrophils/100 WBC Auto (Bl d)Ordered By: Nan Brand on 12-28-2021 Neutrophils/100 WBC (Bld) 89.6 % . [facility] No Panel InformationOrdered By: Nan Brand on 12-28-2021 Estimated GFR () > 60 mL/Min [facility] Comment on above: GFR estimated refere nce range: According to KDOQI guidelines, <60 ml/min/1.73m2 is sufficient to diagnose a patient with chronic kidney disease. Pharmacy Creatinine Clearance (Chem 96.17 [facility] Platelet mean volume Auto (B ld) [Entitic vol]Ordered By: Nan Brand on 12-28-2021 Platelet mean volume (Bld) [Entitic vol] 7.8 fL 6.3-10.7 [facility] Platelets Auto (Bld) [#/Vol] Ordered By: Nan Brand on 12-28-2021 Platelets (Bld) [#/Vol] 315 10*3/uL 150-450 [facility] RBC Auto (Bld) [#/Vol]Ordere d By: Nan Brand on 12-28-2021 RBC (Bld) [#/Vol] 4.76 10*6/uL 3.60-5.00 [facility] Serum or plasma anion gap de terminationOrdered By: Nan Brand on 12-28-2021 Anion gap [Moles/Vol] 13.8 mmol/L 6.0-15.0 [facility] Serum or plasma calcium evelia urement (mass/volume)Ordered By: Nan Brand on 12-28-2021 Calcium [Mass/Vol] 9.4 mg/dL 8.2-10.2 [facility] Serum or plasma chloride kenya surement (moles/volume)Ordered By: Nan Brand on 12-28-2021 Chloride [Moles/Vol] 106 mmol/L 95-114 [facility] Serum or plasma glucose evelia urement (mass/volume)Ordered By: Nan Brand on 12-28-2021 Glucose [Mass/Vol] 162 mg/dL 70-100 [facility] Comment on above: ADA recommended refe rence rangeRandom Glucose Reference Range is dependent on time and content of last meal. Glucose of more than 200 mg/dL in a nonstressed, ambulatory subject supports the diagnosis of Diabetes Mellitus. Serum or plasma potassium me asurement (moles/volume)Ordered By: Nan Brand on 12-28-2021 Potassium [Moles/Vol] 4.3 mmol/L 3.5-5.1 [facility] Serum or plasma sodium measu rement (moles/volume)Ordered By: Nan Brand on 12-28-2021 Sodium [Moles/Vol] 137 mmol/L 136-146 [facility] Serum or plasma total carbon dioxide measurement (moles/volume)Ordered By: Nan Brand on 12-28-2021 CO2 [Moles/Vol] 21.5 mmol/L 22.0-30.0 [facility] Serum or plasma urea nitroge n measurement (mass/volume)Ordered By: Nan Brand on 12-28-2021 Urea nitrogen [Mass/Vol] 9 mg/dL 9-23 [facility] Albumin [Mass/volume] in Ser um or PlasmaOrdered By: Mark Britt on 12-27-2021 Albumin [Mass/Vol] 3.9 g/dL 3.2-5.5 [facility] Basophils Auto (Bld) [#/Vol] Ordered By: Mark Britt on 12-27-2021 Basophils (Bld) [#/Vol] 0.1 10*3/uL 0.0-0.2 [facility] [facility] Basophils/100 WBC Auto (Bld) Ordered By: Mark Britt on 12-27-2021 Basophils/100 WBC (Bld) 0.8 % . [facility] COVID CepheidOrdered By: Ramior Britt on 12-27-2021 SARS-CoV-2 (COVID-19) Ab IA Ql Negative Negative [facility] Comment on above: This is a duplicate [employer] Xpert Xpress CoV-2/Flu/RSV Plus RNA by RT-PCR result to be used for statistical tracking purpose only. SARS-CoV-2 (COVID-19) RNA GERALD+probe Ql (Unsp spec) [facility] Creatinine and Glomerular fi ltration rate.predicted panel (S/P/Bld)Ordered By: Mark Britt on 12-27-2021 Creatinine [Mass/Vol] 1.03 mg/dL 0.44-1.03 [facility] Direct bilirubin measurement Ordered By: Mark Britt on 12-27-2021 Bilirubin.direct [Mass/Vol] mg/dL 0.0-0.4 [facility] Eosinophils Auto (Bld) [#/Vo l]Ordered By: Mark Britt on 12-27-2021 Eosinophils (Bld) [#/Vol] 0.2 10*3/uL 0.0-0.45 [facility] Eosinophils/100 WBC Auto (Bl d)Ordered By: Mark Britt on 12-27-2021 Eosinophils/100 WBC (Bld) 1.9 % . [facility] Erythrocyte distribution wid th Auto (RBC) [Ratio]Ordered By: Mark Britt on 12-27-2021 Erythrocyte distribution width (RBC) [Ratio] 17.5 % 11.9-15.3 [facility] Estimated glomerular filtrat ion rate (GFR) non- AmericanOrdered By: Mark Britt on 12-27-2021 GFR/1.73 sq M.predicted among non-blacks MDRD (S/P/Bld) [Vol rate/Area] 60 mL/Min [facility] Globulin Calc (S) [Mass/Vol] Ordered By: Mark Britt on 12-27-2021 Globulin (S) [Mass/Vol] 2.9 g/dL [facility] Hematocrit Auto (Bld) [Volum e fraction]Ordered By: Mark Britt on 12-27-2021 Hematocrit (Bld) [Volume fraction] 43.3 % 34.0-46.4 [facility] Hemoglobin [Mass/volume] in BloodOrdered By: Mark Britt on 12-27-2021 Hemoglobin (Bld) [Mass/Vol] 13.7 g/dL 11.8-15.4 [facility] Laboratory - Chemistry and C hemistry - challengeOrdered By: Mark Britt on 12-27-2021 AST [Catalytic activity/Vol] 20 U/L 10-42 [facility] Laboratory - Hematology and Cell countsOrdered By: Mark Britt on 12-27-2021 Nucleated RBC/100 WBC (Bld) [Ratio] 0.1 % 0-0.5 [facility] Leukocytes [#/volume] in Blo od by Automated countOrdered By: Mark Britt on 12-27-2021 WBC (Bld) [#/Vol] 12.6 10*3/uL 4.5-11.0 [facility] Lymphocytes Auto (Bld) [#/Vo l]Ordered By: Mark Britt on 12-27-2021 Lymphocytes (Bld) [#/Vol] 3.0 10*3/uL 1.00-4.8 [facility] Lymphocytes/100 WBC Auto (Bl d)Ordered By: Mark Britt on 12-27-2021 Lymphocytes/100 WBC (Bld) 23.6 % . [facility] MCH Auto (RBC) [Entitic mass ]Ordered By: Mark Britt on 12-27-2021 MCH (RBC) [Entitic mass] 26.5 pg 24.7-34.3 [facility] MCHC Auto (RBC) [Mass/Vol]Or dered By: Mark Britt on 12-27-2021 MCHC (RBC) [Mass/Vol] 31.7 g/dL 32.0-35.0 [facility] MCV Auto (RBC) [Entitic vol] Ordered By: Mark Britt on 12-27-2021 MCV (RBC) [Entitic vol] 83.7 fL 80-100 [facility] Monocytes Auto (Bld) [#/Vol] Ordered By: Mark Britt on 12-27-2021 Monocytes (Bld) [#/Vol] 0.7 10*3/uL 0.0-0.8 [facility] Monocytes/100 WBC Auto (Bld) Ordered By: Mark Britt on 12-27-2021 Monocytes/100 WBC (Bld) 5.7 % . [facility] Neutrophils Auto (Bld) [#/Vo l]Ordered By: Mark Britt on 12-27-2021 Neutrophils (Bld) [#/Vol] 8.6 10*3/uL 1.8-7.7 [facility] Neutrophils/100 WBC Auto (Bl d)Ordered By: Mark Britt on 12-27-2021 Neutrophils/100 WBC (Bld) 68.0 % . [facility] No Panel InformationOrdered By: Mark Britt on 12-27-2021 Estimated GFR () > 60 mL/Min [facility] Comment on above: GFR estimated refere nce range: According to KDOQI guidelines, <60 ml/min/1.73m2 is sufficient to diagnose a patient with chronic kidney disease. Pharmacy Creatinine Clearance (Chem 88.19 [facility] Platelet mean volume Auto (B ld) [Entitic vol]Ordered By: Mark Britt on 12-27-2021 Platelet mean volume (Bld) [Entitic vol] 7.7 fL 6.3-10.7 [facility] Platelets Auto (Bld) [#/Vol] Ordered By: Mark Britt on 12-27-2021 Platelets (Bld) [#/Vol] 324 10*3/uL 150-450 [facility] Protein [Mass/volume] in Ser um or PlasmaOrdered By: Mark Britt on 12-27-2021 Protein [Mass/Vol] 6.8 g/dL 6.1-7.9 [facility] RBC Auto (Bld) [#/Vol]Ordere d By: Mark Britt on 12-27-2021 RBC (Bld) [#/Vol] 5.18 10*6/uL 3.60-5.00 [facility] Serum or plasma alanine reyes otransferase measurement without P-5'-P (enzymatic activiOrdered By: Mark Britt on 12-27-2021 ALT No additional P-5'-P [Catalytic activity/Vol] 16 U/L 10-60 [facility] Serum or plasma albumin/glob ulin mass ratioOrdered By: Mark Britt on 12-27-2021 Albumin/Globulin [Mass ratio] 1.3 {ratio} [facility] Serum or plasma alkaline bossman sphatase measurement (enzymatic activity/volume)Ordered By: Mark Britt on 12-27-2021 ALP [Catalytic activity/Vol] 109 U/L 32-92 [facility] Serum or plasma anion gap de terminationOrdered By: Mark Britt on 12-27-2021 Anion gap [Moles/Vol] See comment 6.0-15.0 [facility] Comment on above: Specimen hemolyzed, redraw requestedPLEASE CALCULATE WITH REDRAW POTASSIUM IF NEEDED Serum or plasma calcium evelia urement (mass/volume)Ordered By: Mark Britt on 12-27-2021 Calcium [Mass/Vol] 9.0 mg/dL 8.2-10.2 [facility] Serum or plasma chloride kenya surement (moles/volume)Ordered By: Mark Britt on 12-27-2021 Chloride [Moles/Vol] 103 mmol/L 95-114 [facility] Serum or plasma glucose evelia urement (mass/volume)Ordered By: Mark Britt on 12-27-2021 Glucose [Mass/Vol] 104 mg/dL 70-100 [facility] Comment on above: ADA recommended refe rence rangeRandom Glucose Reference Range is dependent on time and content of last meal. Glucose of more than 200 mg/dL in a nonstressed, ambulatory subject supports the diagnosis of Diabetes Mellitus. Serum or plasma non-glucuron idated bilirubin measurement (mass/volume)Ordered By: Mark Britt on 12-27-2021 Bilirubin.indirect [Mass/Vol] TNP [facility] Comment on above: Test not performed Serum or plasma potassium me asurement (moles/volume)Ordered By: Mark Britt on 12-27-2021 Potassium [Moles/Vol] 3.7 mmol/L 3.5-5.1 [facility] Serum or plasma sodium measu rement (moles/volume)Ordered By: Mark Britt on 12-27-2021 Sodium [Moles/Vol] 136 mmol/L 136-146 [facility] Serum or plasma total biliru bin measurement (mass/volume)Ordered By: Mark Britt on 12-27-2021 Bilirubin [Mass/Vol] 0.6 mg/dL 0.3-1.2 [facility] Serum or plasma total carbon dioxide measurement (moles/volume)Ordered By: Mark Britt on 12-27-2021 CO2 [Moles/Vol] 18.8 mmol/L 22.0-30.0 [facility] Serum or plasma urea nitroge n measurement (mass/volume)Ordered By: Mark Britt on 12-27-2021 Urea nitrogen [Mass/Vol] 8 mg/dL 9 [facility] Troponin I.cardiac [Mass/vol ume] in Serum or Plasma by High sensitivity methodOrdered By: Mark Britt on 12-27-2021 Troponin I.cardiac High sensitivity method [Mass/Vol] 3 pg/mL 0-15 [facility] Blood hemoglobin measurement (mass/volume)Ordered By: Jp Barba on 11-19-2021 Hemoglobin (Bld) [Mass/Vol] 12.7 g/dL 11.8-15.4 [facility] Creatinine and Glomerular fi ltration rate.predicted panel (S/P/Bld)Ordered By: Jp Barba on 11-19-2021 Creatinine [Mass/Vol] 0.98 mg/dL 0.44-1.03 [facility] Erythrocyte distribution wid th Auto (RBC) [Ratio]Ordered By: Jp Barba on 11-19-2021 Erythrocyte distribution width (RBC) [Ratio] 18.0 % 11.9-15.3 [facility] Estimated glomerular filtrat ion rate (GFR) non- AmericanOrdered By: Jp Barba on 11-19-2021 GFR/1.73 sq M.predicted among non-blacks MDRD (S/P/Bld) [Vol rate/Area] > 60 mL/Min [facility] Hematocrit Auto (Bld) [Volum e fraction]Ordered By: Jp Barba on 11-19-2021 Hematocrit (Bld) [Volume fraction] 39.9 % 34.0-46.4 [facility] Laboratory - Chemistry and C hemistry - challengeOrdered By: Jp Barba on 11-19-2021 Magnesium [Mass/Vol] 1.8 mg/dL 1.6-2.6 [facility] MCH Auto (RBC) [Entitic mass ]Ordered By: Jp Barba on 11-19-2021 MCH (RBC) [Entitic mass] 26.1 pg 24.7-34.3 [facility] MCHC Auto (RBC) [Mass/Vol]Or dered By: Jp Barba on 11-19-2021 MCHC (RBC) [Mass/Vol] 31.8 g/dL 32.0-35.0 [facility] MCV Auto (RBC) [Entitic vol] Ordered By: Jp Barba on 11-19-2021 MCV (RBC) [Entitic vol] 82.2 fL 80-100 [facility] No Panel InformationOrdered By: Jp Barba on 11-19-2021 Estimated GFR () > 60 mL/Min [facility] Comment on above: GFR estimated refere nce range: According to KDOQI guidelines, <60 ml/min/1.73m2 is sufficient to diagnose a patient with chronic kidney disease. Pharmacy Creatinine Clearance (Chem 93.33 [facility] Platelet mean volume Auto (B ld) [Entitic vol]Ordered By: Jp Barba on 11-19-2021 Platelet mean volume (Bld) [Entitic vol] 8.1 fL 6.3-10.7 [facility] Platelets Auto (Bld) [#/Vol] Ordered By: Jp Barba on 11-19-2021 Platelets (Bld) [#/Vol] 334 10*3/uL 150-450 [facility] RBC Auto (Bld) [#/Vol]Ordere d By: Jp Barba on 11-19-2021 RBC (Bld) [#/Vol] 4.86 10*6/uL 3.60-5.00 [facility] Serum or plasma anion gap de terminationOrdered By: Jp Barba on 11-19-2021 Anion gap [Moles/Vol] 15.5 mmol/L 6.0-15.0 [facility] Serum or plasma calcium evelia urement (mass/volume)Ordered By: Jp Barba on 11-19-2021 Calcium [Mass/Vol] 9.5 mg/dL 8.2-10.2 [facility] Serum or plasma chloride kenya surement (moles/volume)Ordered By: Jp Barba on 11-19-2021 Chloride [Moles/Vol] 103 mmol/L 95-114 [facility] Serum or plasma glucose evelia urement (mass/volume)Ordered By: Jp Barba on 11-19-2021 Glucose [Mass/Vol] 149 mg/dL 70-100 [facility] Comment on above: ADA recommended refe rence rangeRandom Glucose Reference Range is dependent on time and content of last meal. Glucose of more than 200 mg/dL in a nonstressed, ambulatory subject supports the diagnosis of Diabetes Mellitus. Serum or plasma potassium me asurement (moles/volume)Ordered By: Jp Barba on 11-19-2021 Potassium [Moles/Vol] 4.5 mmol/L 3.5-5.1 [facility] Serum or plasma sodium measu rement (moles/volume)Ordered By: Jp Barba on 11-19-2021 Sodium [Moles/Vol] 136 mmol/L 136-146 [facility] Serum or plasma total carbon dioxide measurement (moles/volume)Ordered By: Jp Barba on 11-19-2021 CO2 [Moles/Vol] 22.0 mmol/L 22.0-30.0 [facility] Serum or plasma urea nitroge n measurement (mass/volume)Ordered By: Jp Barba on 11-19-2021 Urea nitrogen [Mass/Vol] 13 mg/dL 9-23 [facility] WBC Auto (Bld) [#/Vol]Ordere d By: Jp Barba on 11-19-2021 WBC (Bld) [#/Vol] 17.0 10*3/uL 3.8-11.6 [facility] Basophils Auto (Bld) [#/Vol] Ordered By: Jason Milton on 11-18-2021 Basophils (Bld) [#/Vol] 0.1 10*3/uL 0.0-0.2 [facility] Basophils/100 WBC Auto (Bld) Ordered By: Jason Milton on 11-18-2021 Basophils/100 WBC (Bld) 0.8 % . [facility] Blood hemoglobin measurement (mass/volume)Ordered By: Jason Milton on 11-18-2021 Hemoglobin (Bld) [Mass/Vol] 11.8 g/dL 11.8-15.4 [facility] Blood leukocytes automated c ount (number/volume)Ordered By: Jason Milton on 11-18-2021 WBC (Bld) [#/Vol] 12.0 10*3/uL 4.5-11.0 [facility] Body fluid albumin measureme nt (mass/volume)Ordered By: Jason Milton on 11-18-2021 Albumin (Body fld) [Mass/Vol] 3.8 g/dL 3.2-5.5 [facility] COVID CepheidOrdered By: Donald Milton on 11-18-2021 SARS-CoV-2 (COVID-19) Ab IA Ql Negative Negative [facility] Comment on above: This is a duplicate [employer] Xpert Xpress CoV-2/Flu/RSV Plus RNA by RT-PCR result to be used for statistical tracking purpose only. SARS-CoV-2 (COVID-19) RNA GERALD+probe Ql (Unsp spec) [facility] Creatine kinase [Enzymatic a ctivity/volume] in Serum or PlasmaOrdered By: Jason Milton on 11-18-2021 CK [Catalytic activity/Vol] 78 U/L 22-269 [facility] Creatinine and Glomerular fi ltration rate.predicted panel (S/P/Bld)Ordered By: Jason Milton on 11-18-2021 Creatinine [Mass/Vol] 0.98 mg/dL 0.44-1.03 [facility] Eosinophils Auto (Bld) [#/Vo l]Ordered By: Jason Milton on 11-18-2021 Eosinophils (Bld) [#/Vol] 0.4 10*3/uL 0.0-0.45 [facility] Eosinophils/100 WBC Auto (Bl d)Ordered By: Jason Milton on 11-18-2021 Eosinophils/100 WBC (Bld) 3.1 % . [facility] Erythrocyte distribution wid th Auto (RBC) [Ratio]Ordered By: Jason Milton on 11-18-2021 Erythrocyte distribution width (RBC) [Ratio] 17.5 % 11.9-15.3 [facility] Estimated glomerular filtrat ion rate (GFR) non- AmericanOrdered By: Jason Milton on 11-18-2021 GFR/1.73 sq M.predicted among non-blacks MDRD (S/P/Bld) [Vol rate/Area] > 60 mL/Min [facility] Globulin Calc (S) [Mass/Vol] Ordered By: Jason Milton on 11-18-2021 Globulin (S) [Mass/Vol] 2.9 g/dL [facility] Hematocrit Auto (Bld) [Volum e fraction]Ordered By: Jason Milton on 11-18-2021 Hematocrit (Bld) [Volume fraction] 37.2 % 34.0-46.4 [facility] Laboratory - Chemistry and C hemistry - challengeOrdered By: Jason Milton on 11-18-2021 Natriuretic peptide B (Bld) [Mass/Vol] 17.0 pg/mL 5-100 [facility] Laboratory - Hematology and Cell countsOrdered By: Jason Milton on 11-18-2021 Nucleated RBC/100 WBC (Bld) [Ratio] 0.1 % 0-0.5 [facility] Lymphocytes Auto (Bld) [#/Vo l]Ordered By: Jason Milton on 11-18-2021 Lymphocytes (Bld) [#/Vol] 2.0 10*3/uL 1.00-4.8 [facility] Lymphocytes/100 WBC Auto (Bl d)Ordered By: Jason Milton on 11-18-2021 Lymphocytes/100 WBC (Bld) 16.7 % . [facility] MCH Auto (RBC) [Entitic mass ]Ordered By: Jason Milton on 11-18-2021 MCH (RBC) [Entitic mass] 25.9 pg 24.7-34.3 [facility] MCHC Auto (RBC) [Mass/Vol]Or dered By: Jason Milton on 11-18-2021 MCHC (RBC) [Mass/Vol] 31.8 g/dL 32.0-35.0 [facility] MCV Auto (RBC) [Entitic vol] Ordered By: Jason Milton on 11-18-2021 MCV (RBC) [Entitic vol] 81.4 fL 80-100 [facility] Monocytes Auto (Bld) [#/Vol] Ordered By: Jason Milton on 11-18-2021 Monocytes (Bld) [#/Vol] 0.7 10*3/uL 0.0-0.8 [facility] Monocytes/100 WBC Auto (Bld) Ordered By: Jason Milton on 11-18-2021 Monocytes/100 WBC (Bld) 5.6 % . [facility] Neutrophils Auto (Bld) [#/Vo l]Ordered By: Jason Milton on 11-18-2021 Neutrophils (Bld) [#/Vol] 8.9 10*3/uL 1.8-7.7 [facility] Neutrophils/100 WBC Auto (Bl d)Ordered By: Jason Milton on 11-18-2021 Neutrophils/100 WBC (Bld) 73.8 % . [facility] No Panel InformationOrdered By: Jason Milton on 11-18-2021 Estimated GFR () > 60 mL/Min [facility] Comment on above: GFR estimated refere nce range: According to KDOQI guidelines, <60 ml/min/1.73m2 is sufficient to diagnose a patient with chronic kidney disease. Pharmacy Creatinine Clearance (Chem 94.32 [facility] Platelet mean volume Auto (B ld) [Entitic vol]Ordered By: Jason Milton on 11-18-2021 Platelet mean volume (Bld) [Entitic vol] 7.9 fL 6.3-10.7 [facility] Platelets Auto (Bld) [#/Vol] Ordered By: Jason Milton on 09-28-2022 Platelets (Bld) [#/Vol] 326 10*3/uL 150-450 [facility] Protein [Mass/volume] in Ser um or PlasmaOrdered By: Jason Milton on 11-18-2021 Protein [Mass/Vol] 6.7 g/dL 6.1-7.9 [facility] RBC Auto (Bld) [#/Vol]Ordere d By: Jason Milton on 11-18-2021 RBC (Bld) [#/Vol] 4.57 10*6/uL 3.60-5.00 [facility] Serum or plasma alanine reyes otransferase measurement without P-5'-P (enzymatic activiOrdered By: Jason Milton on 11-18-2021 ALT No additional P-5'-P [Catalytic activity/Vol] 15 U/L 10-60 [facility] Serum or plasma albumin/glob ulin mass ratioOrdered By: Jason Milton on 11-18-2021 Albumin/Globulin [Mass ratio] 1.3 {ratio} [facility] Serum or plasma alkaline bossman sphatase measurement (enzymatic activity/volume)Ordered By: Jason Milton on 11-18-2021 ALP [Catalytic activity/Vol] 99 U/L 32-92 [facility] Serum or plasma anion gap de terminationOrdered By: Jason Milton on 11-18-2021 Anion gap [Moles/Vol] 17.9 mmol/L 6.0-15.0 [facility] Serum or plasma aspartate am inotransferase measurement (enzymatic activity/volume)Ordered By: Jason Milton on 11-18-2021 AST [Catalytic activity/Vol] 22 U/L 10-42 [facility] Serum or plasma calcium evelia urement (mass/volume)Ordered By: Jason Milton on 11-18-2021 Calcium [Mass/Vol] 8.9 mg/dL 8.2-10.2 [facility] Serum or plasma chloride kenya surement (moles/volume)Ordered By: Jason Milton on 11-18-2021 Chloride [Moles/Vol] 99 mmol/L 95-114 [facility] Serum or plasma creatine kin ase MB (CKMB)/total creatine kinase (CK) ratio by calculaOrdered By: Jason Milton on 11-18-2021 CK.MB Calc [Catalytic fraction] 1.2 % 0.00-2.50 [facility] Serum or plasma creatine kin ase MB measurement (mass/volume)Ordered By: Jason Milton on 11-18-2021 CK.MB [Mass/Vol] 1.0 ng/mL 0.6-6.3 [facility] Serum or plasma glucose evelia urement (mass/volume)Ordered By: Jason Milton on 11-18-2021 Glucose [Mass/Vol] 104 mg/dL 70-100 [facility] Comment on above: ADA recommended refe rence rangeRandom Glucose Reference Range is dependent on time and content of last meal. Glucose of more than 200 mg/dL in a nonstressed, ambulatory subject supports the diagnosis of Diabetes Mellitus. Serum or plasma potassium me asurement (moles/volume)Ordered By: Jason Milton on 11-18-2021 Potassium [Moles/Vol] 4.6 mmol/L 3.5-5.1 [facility] Serum or plasma sodium measu rement (moles/volume)Ordered By: Jason Milton on 11-18-2021 Sodium [Moles/Vol] 134 mmol/L 136-146 [facility] Serum or plasma total biliru bin measurement (mass/volume)Ordered By: Jason Milton on 11-18-2021 Bilirubin [Mass/Vol] 1.0 mg/dL 0.3-1.2 [facility] Serum or plasma total carbon dioxide measurement (moles/volume)Ordered By: Jason Milton on 11-18-2021 CO2 [Moles/Vol] 21.7 mmol/L 22.0-30.0 [facility] Serum or plasma urea nitroge n measurement (mass/volume)Ordered By: Jason Milton on 11-18-2021 Urea nitrogen [Mass/Vol] 10 mg/dL 9- [facility] Troponin I.cardiac [Mass/vol ume] in Serum or Plasma by High sensitivity methodOrdered By: Jason Milton on 11-18-2021 Troponin I.cardiac High sensitivity method [Mass/Vol] 3 pg/mL 0-15 [facility] XR Chest 2 Views*on 11-18-19 XR Chest [...] by JANICE JERONIMO on 11/17/2021 1823 Normal [facility] Specialist Q - CULTURE,URINE,ROUTINEon 04-30-2021 CULTURE, URINE, ROUTINE SEE NOTE [facility] Comment on above: Order Comment: [facility] performed at: [facility], [address] [facility], [address] [place] [address], [id number], [employer]ley[employer] Assembler: Bob Snowden MD [facility] Collection Date/Time: [id number] [facility] Results Received Date/Time: [facility] Reported Date/Time: [id number] Result Comment: CULT URE, URINE, ROUTINE Micro Number: [id number] Test Status: Final Specimen Source: Urine Specimen Quality: Adequate Result: Mixed genital laurence isolated. These superficial bacteria are not indicative of a urinary tract infection. No further organism identification is warranted on this specimen. If clinically indicated, recollect clean-catch, mid-stream urine and transfer immediately to Urine Culture Transport Tube. Performed By: #### [id number] #### [facility] Default [address] [place] [address] Complete Blood Counton 04-23 Erythrocyte distribution width (RBC) [Ratio] 17.6 % High 11.0-15.0 [facility] Comment on above: Performed By: #### L IPD, CBC, TSH reflex FT4, CMP #### [facility] [address] [place], [place] [id number] Hematocrit (Bld) [Volume fraction] 40.9 % Normal 35.0-47.0 [facility] Comment on above: Performed By: #### L IPD, CBC, TSH reflex FT4, CMP #### [facility] [address] [place], [place] [id number] Hemoglobin (Bld) [Mass/Vol] 12.4 g/dL Normal 11.6-15.5 [facility] Comment on above: Performed By: #### L IPD, CBC, TSH reflex FT4, CMP #### [facility] [address] [place], [place] [id number] MCH (RBC) [Entitic mass] 24.8 pg Low 27.0-33.0 [facility] Comment on above: Performed By: #### L IPD, CBC, TSH reflex FT4, CMP #### [facility] [address] [place], [place] [id number] MCHC (RBC) [Mass/Vol] 30.3 g/dL Low 32.0-36.0 [facility] Comment on above: Performed By: #### L IPD, CBC, TSH reflex FT4, CMP #### [facility] [address] [place], [place] [id number] MCV (RBC) [Entitic vol] 82 fL Normal 80-100 [facility] Comment on above: Performed By: #### L IPD, CBC, TSH reflex FT4, CMP #### [facility] [address] [place], [place] [id number] Platelet mean volume (Bld) [Entitic vol] 10.30 fL Normal 7.50-12.50 [facility] Specialist Comment on above: Performed By: #### L IPD, CBC, TSH reflex FT4, CMP #### [facility] [address] [place], [place] [id number] Platelets (Bld) [#/Vol] 284 10*3/uL Normal 140-400 [facility] Comment on above: Performed By: #### L IPD, CBC, TSH reflex FT4, CMP #### [facility] [address] [place], [place] [id number] RBC (Bld) [#/Vol] 4.99 10*6/uL Normal 3.90-5.20 [facility] Comment on above: Performed By: #### L IPD, CBC, TSH reflex FT4, CMP #### [facility] [address] [place], [place] [id number] RDW-SD 51.6 fL High 37.0-50.0 [facility] Comment on above: Performed By: #### L IPD, CBC, TSH reflex FT4, CMP #### [facility] [address] [place], [place] [id number] WBC (Bld) [#/Vol] 11.3 10*3/uL High 3.8-11.0 [facility] Comment on above: Performed By: #### L IPD, CBC, TSH reflex FT4, CMP #### [facility] [address] [place], [place] [id number] Comprehensive Metabolic Pane beto 04-23-2021 Albumin [Mass/Vol] 4.2 g/dL Normal 3.6-5.1 [facility] Comment on above: Performed By: #### L IPD, CBC, TSH reflex FT4, CMP #### [facility] [address] [place], [place] [id number] Albumin/Globulin [Mass ratio] 1.6 {ratio} Normal 1.0-2.5 [facility] Comment on above: Performed By: #### L IPD, CBC, TSH reflex FT4, CMP #### [facility] [address] [place], [place] [id number] ALP [Catalytic activity/Vol] 88 U/L Normal 35-119 [facility] Comment on above: Performed By: #### L IPD, CBC, TSH reflex FT4, CMP #### [facility] [address] [place], [place] [id number] ALT [Catalytic activity/Vol] 18 U/L Normal 6-33 [facility] Comment on above: Result Comment: 01/21 Female reference range changed. Performed By: #### L IPD, CBC, TSH reflex FT4, CMP #### [facility] [address], [place] [id number] Anion gap [Moles/Vol] 20 mmol/L Normal 12-20 [facility] Comment on above: Result Comment: Effe ctive 02/26/2019 reference range changed. Performed By: #### L IPD, CBC, TSH reflex FT4, CMP #### [facility] [address], [place] [id number] AST [Catalytic activity/Vol] 17 U/L Normal 9-34 [facility] Comment on above: Performed By: #### L IPD, CBC, TSH reflex FT4, CMP #### [facility] [address], [place] [id number] BUN/CREA 16 Ratio Normal 6-22 [facility] Comment on above: Performed By: #### L IPD, CBC, TSH reflex FT4, CMP #### [facility] [address], [place] [id number] Calcium [Mass/Vol] 9.7 mg/dL Normal 8.6-10.2 [facility] Comment on above: Performed By: #### L IPD, CBC, TSH reflex FT4, CMP #### [facility] [address], [place] [id number] Chloride [Moles/Vol] 101 mmol/L Normal 98-107 [facility] Comment on above: Performed By: #### L IPD, CBC, TSH reflex FT4, CMP #### [facility] [address], [place] [id number] CO2 [Moles/Vol] 21 mmol/L Normal 20-31 [facility] Comment on above: Performed By: #### L IPD, CBC, TSH reflex FT4, CMP #### [facility] [address], [place] [id number] Creatinine [Mass/Vol] 1.0 mg/dL Normal 0.6-1.4 [facility] Comment on above: Performed By: #### L IPD, CBC, TSH reflex FT4, CMP #### [facility] [address], [place] [id number] eGFRAA 81 mL/min/1.73m2 Normal >60 [facility] Comment on above: Performed By: #### L IPD, CBC, TSH reflex FT4, CMP #### [facility] [address], [place] [id number] eGFRNAA 67 mL/min/1.73m2 Normal >60 [facility] Comment on above: Performed By: #### L IPD, CBC, TSH reflex FT4, CMP #### [facility] [address], [place] [id number] Globulin (S) [Mass/Vol] 2.6 g/dL Normal 1.9-3.7 [facility] Comment on above: Performed By: #### L IPD, CBC, TSH reflex FT4, CMP #### [facility] [address], [place] [id number] Glucose [Mass/Vol] 106 mg/dL High 65-99 Taisha badillo [employer] Comment on above: Result Comment: For FASTING Glucose --- ADA reference ranges: Normal 65-99 mg/dl Prediabetes 100-125 Diabetes >/= 126 Performed By: #### L IPD, CBC, TSH reflex FT4, CMP #### [facility] [address], [place] [id number] Potassium [Moles/Vol] 4.4 mmol/L Normal 3.5-5.5 [facility] Specialist Comment on above: Performed By: #### L IPD, CBC, TSH reflex FT4, CMP #### [facility] [address], [place] [id number] Protein [Mass/Vol] 6.8 g/dL Normal 6.1-8.1 Taisha badillo [employer] Comment on above: Performed By: #### L IPD, CBC, TSH reflex FT4, CMP #### [facility] [address], [place] [id number] Sodium [Moles/Vol] 138 mmol/L Normal 135-146 Taisha badillo [employer] Comment on above: Performed By: #### L IPD, CBC, TSH reflex FT4, CMP #### [facility] [address], [place] [id number] TBIL <0.3 Normal [facility] Special[facility] Comment on above: Performed By: #### L IPD, CBC, TSH reflex FT4, CMP #### [facility] [address], [place] [id number] Urea nitrogen [Mass/Vol] 15 mg/dL Normal 7-25 [facility] [employer] Comment on above: Performed By: #### L IPD, CBC, TSH reflex FT4, CMP #### [facility] [address], [place] [id number] Lipid Panelon 04-23-2021 Cholesterol [Mass/Vol] 217 mg/dL High 125-200 [facility] Comment on above: Result Comment: Low risk < 200mg/dL Borderline risk 201-239 mg/dl High risk > or equal to 240 Performed By: #### L IPD, CBC, TSH reflex FT4, CMP #### [facility] [address], [place] [id number] Cholesterol in HDL [Mass/Vol] 38 mg/dL Low >40 [facility] Specialist Comment on above: Result Comment: High Cardiovascular Risk HDL <40 mg/dL Low Cardiovascular Risk HDL > or equal to 60 mg/dl Performed By: #### L IPD, CBC, TSH reflex FT4, CMP #### [facility] [address], [place] [id number] Cholesterol in LDL [Mass/Vol] 130 mg/dL Normal [facility] Comment on above: Result Comment: LDL ATP III CLASSIFICATION LDL less than 100 mg/dl Optimal LDL 100-129 mg/dl Near or above optimal LDL 130-159 Borderline high LDL 160-189 High LDL greater than 189 mg/dl Very High Performed By: #### L IPD, CBC, TSH reflex FT4, CMP #### [facility] [address], [place] [id number] Cholesterol in VLDL [Mass/Vol] 49 mg/dL Normal [facility] Special[facility] Comment on above: Performed By: #### L IPD, CBC, TSH reflex FT4, CMP #### [facility] [address], [place] [id number] Cholesterol.total/Choles terol in HDL [Mass ratio] 6 {ratio} Normal [facility] Comment on above: Performed By: #### L IPD, CBC, TSH reflex FT4, CMP #### [facility] [address], [place] [id number] Triglyceride [Mass/Vol] 246 mg/dL High 30-150 [facility] Comment on above: Result Comment: TRIG ATPIII CLASSIFICATIONS TRIG less than 150 mg/dl Normal TRIG 150-199 mg/dl Borderline High TRIG 200-500 mg/dl High TRIG greather than 500 mg/dl Very High Performed By: #### L IPD, CBC, TSH reflex FT4, CMP #### [facility] [address], [place] [id number] TSH w/ Reflex to Free T4on 0 - TSH 3.150 uIU/mL Normal 0.400-4.500 [facility] Specialist Comment on above: Performed By: #### L IPD, CBC, TSH reflex FT4, CMP #### [facility] [address] [place], [place] [id number] HCG, ,Urineon 09-28 Beta HCG ( test) Ql (U) Negative Normal NEG [facility] Comment on above: Result Comment: Spec imens with hCG levels near the threshold of the test (25 mIU/mL) may give a negative or indeterminate result. In such cases, another test should be performed with a new specimen in 48-72 hours. If early is suspected clinically in this setting, correlation with quantitative serum b-hCG level is suggested. [facility] has confirmed the use of plasma for this test. This has not been cleared or approved by the U.S. Food and Drug Administration. The FDA has determined that such clearance is not necessary. Performed By: #### B HCG #### [address] [place] [address] #### PROG #### [address] [address] Surgical Pathologyon 019 Surgical Pathology (NOTE) [id number] [facility] CONSULTING PATHOLOGISTS [facility] ANATOMIC PATHOLOGY [address] [place] [id number] SURGICAL PATHOLOGY CONSULTATION Patient Name: MORRO MALONEY [facility] Rec: [id number] Path Number: [id number] Collected: 09/28/2018 Received: 09/29/2018 Reported: 10/02/2018 10:04 [...] 1cs. tm Microscopic Description Microscopic examination performed. [facility] Comment on above: Performed By: #### A HCV, HIVCMB #### [facility] [employer] [facility] [place], [place] [id number] #### GLYHGB #### [address] [place] [address] US GALLBLADDER RUQon 019 US GALLBLADDER RUQ EXAMINATION: GALLBLADDER ULTRASOUND 09/25/2018 8:01 am COMPARISON: None. HISTORY: ORDERING SYSTEM PROVIDED HISTORY: Abdominal pain, right upper quadrant FINDINGS: Visualized portions of the liver without acute abnormality. No focal hepatic mass lesion identified. Parenchymal echogenicity is grossly within normal limits. Borderline gallbladder wall thickening measuring 3-4 mm. Multiple intraluminal calculi identified. [employer] documents a negative sonographic Magana's sign. The common bile duct is normal and measures 4-5 mm. IMPRESSION: Cholelithiasis and borderline gallbladder wall thickening. No evidence for pericholecystic fluid or sonographic Magana's sign. IMPRESSION: Unremarkable right upper quadrant ultrasound. Interpreted by: Chencho Fonseca MD Signed by: Chencho Fonseca MD 09/25/18 Final result [facility] Cult,Urineon 08-03-2018 Cult,Urine Specimen Description .CLEAN CATCH URINE Special Requests NOT REPORTED Culture NO SIGNIFICANT GROWTH Report Status FINAL 08/03/2018 [facility] Comment on above: Performed By: #### B HCG #### [address] [place] [address] #### PROG #### [facility] [employer] [facility] [place], [place] [id number] CBCon 08-02-2018 Erythrocyte distribution width (RBC) [Ratio] 16.2 % High 11.8-14.4 [facility] Comment on above: Performed By: #### B HCG #### [address] [place] [address] #### PROG #### [address] [address] Hematocrit (Bld) [Volume fraction] 31.0 % Low 36.3-47.1 [facility] Comment on above: Performed By: #### B HCG #### [address] [place] [address] #### PROG #### [address] [address] Hemoglobin (Bld) [Mass/Vol] 9.6 g/dL Low 11.9-15.1 [facility] Comment on above: Performed By: #### B HCG #### [address] [place] [address] #### PROG #### [address] [address] MCH (RBC) [Entitic mass] 25.2 pg Normal 25.2-33.5 [facility] Comment on above: Performed By: #### B HCG #### [address] [place] [address] #### PROG #### [address] [address] MCHC (RBC) [Mass/Vol] 31.0 g/dL Normal 28.4-34.8 [facility] Comment on above: Performed By: #### B HCG #### [address] [place] [address] #### PROG #### [address] [address] MCV (RBC) [Entitic vol] 81.4 fL Low 82.6-102.9 [facility] Comment on above: Performed By: #### B HCG #### [address] [place] [address] #### PROG #### [address] [address] NRBC Automated 0.0 per 100 WBC Normal 0.0 [facility] Comment on above: Performed By: #### B HCG #### [address] [place] [address] #### PROG #### [address] [address] Platelet mean volume (Bld) [Entitic vol] 10.5 fL Normal 8.1-13.5 [facility] Comment on above: Performed By: #### B HCG #### [address] [place] [address] #### PROG #### [address] [address] Platelets (Bld) [#/Vol] 266 10*3/uL Normal 138-453 [facility] Comment on above: Performed By: #### B HCG #### [address] [place] [address] #### PROG #### [address] [address] RBC (Bld) [#/Vol] 3.81 10*6/uL Low 3.95-5.11 [facility] Comment on above: Performed By: #### B HCG #### [address] [place] [address] #### PROG #### [address] [address] WBC (Bld) [#/Vol] 18.9 10*3/uL High 3.5-11.3 [facility] Comment on above: Performed By: #### B HCG #### [address] [place] [address] #### PROG #### [address] [address] Erythrocyte distribution width (RBC) [Ratio] 16.3 % High 11.8-14.4 [facility] Comment on above: Performed By: #### B HCG #### [address] [place] [address] #### PROG #### [address] [address] Hematocrit (Bld) [Volume fraction] 34.6 % Low 36.3-47.1 [facility] Comment on above: Performed By: #### B HCG #### [address] [place] [address] #### PROG #### [address] [address] Hemoglobin (Bld) [Mass/Vol] 10.4 g/dL Low 11.9-15.1 [facility] Comment on above: Performed By: #### B HCG #### [address] [place] [address] #### PROG #### [address] [address] MCH (RBC) [Entitic mass] 24.9 pg Low 25.2-33.5 [facility] Comment on above: Performed By: #### B HCG #### [address] [place] [address] #### PROG #### [address] [address] MCHC (RBC) [Mass/Vol] 30.1 g/dL Normal 28.4-34.8 [facility] Comment on above: Performed By: #### B HCG #### [address] [place] [address] #### PROG #### [address] [address] MCV (RBC) [Entitic vol] 83.0 fL Normal 82.6-102.9 [facility] Comment on above: Performed By: #### B HCG #### [address] [place] [address] #### PROG #### [address] [address] NRBC Automated 0.0 per 100 WBC Normal 0.0 [facility] Comment on above: Performed By: #### B HCG #### [address] [place] [address] #### PROG #### [address] [address] Platelet mean volume (Bld) [Entitic vol] 10.2 fL Normal 8.1-13.5 [facility] Comment on above: Performed By: #### B HCG #### [address] [place] [address] #### PROG #### [address] [address] Platelets (Bld) [#/Vol] 307 10*3/uL Normal 138-453 [facility] Comment on above: Performed By: #### B HCG #### [address] [place] [address] #### PROG #### [address] [address] RBC (Bld) [#/Vol] 4.17 10*6/uL Normal 3.95-5.11 [facility] Comment on above: Performed By: #### B HCG #### [address] [place] [address] #### PROG #### [address] [place] [address] WBC (Bld) [#/Vol] 13.1 10*3/uL High 3.5-11.3 [facility] Comment on above: Performed By: #### B HCG #### [address] [place] [address] #### PROG #### [address] [address] Comp Metabolic Profon 2018 (cont.) Normal [facility] Comment on above: Result Comment: Aver age GFR for 30-39 years old: 107 mL/min/1.73sq m Chronic Kidney Disease: <60 mL/min/1.73sq m Kidney failure: <15 mL/min/1.73sq m eGFR calculated using average adult body mass. Additional eGFR calculator available at: http://www.[employer]ABBL/multiple_crcl_2012.htm Performed By: #### B HCG #### [address] [place] [address] #### PROG #### [address] [place] [address] Albumin [Mass/Vol] 3.0 g/dL Low 3.5-5.2 [facility] Comment on above: Performed By: #### B HCG #### [address] [place] [address] #### PROG #### [facility] [address] [place] [address] Albumin/Globulin [Mass ratio] 1.2 {ratio} Normal 1.0-2.5 [facility] Comment on above: Performed By: #### B HCG #### [address] [place] [address] #### PROG #### [address] [address] Alkaline Phos 117 U/L High 35-104 [facility] Comment on above: Performed By: #### B HCG #### [address] [place] [address] #### PROG #### [address] [address] ALT [Catalytic activity/Vol] 60 U/L High 5-33 [facility] Comment on above: Performed By: #### B HCG #### [address] [place] [address] #### PROG #### [address] [address] Anion gap [Moles/Vol] 12 mmol/L Normal 9-17 [facility] Comment on above: Performed By: #### B HCG #### [address] [place] [address] #### PROG #### [address] [address] AST [Catalytic activity/Vol] 54 U/L High <32 [facility] Comment on above: Performed By: #### B HCG #### [address] [place] [address] #### PROG #### [address] [address] Bilirubin Ql (U) 0.89 mg/dL Normal 0.3-1.2 [facility] Comment on above: Performed By: #### B HCG #### [address] [place] [address] #### PROG #### [address] [address] BUN/CRE Ratio 12 Normal 9-20 [facility] Comment on above: Performed By: #### B HCG #### [address] [place] [address] #### PROG #### [address] [address] Calcium [Mass/Vol] 9.1 mg/dL Normal 8.6-10.4 [facility] Comment on above: Performed By: #### B HCG #### [address] [place] [address] #### PROG #### [address] [address] Chloride [Moles/Vol] 102 mmol/L Normal 98-107 [facility] Comment on above: Performed By: #### B HCG #### [address] [place] [address] #### PROG #### [address] [address] CO2 [Moles/Vol] 21 mmol/L Normal 20-31 [facility] Comment on above: Performed By: #### B HCG #### [address] [place] [address] #### PROG #### [address] [address] Creatinine [Mass/Vol] 0.66 mg/dL Normal 0.50-0.90 [facility] Comment on above: Performed By: #### B HCG #### [address] [place] [address] #### PROG #### [address] [address] GFR, Amer >60 Normal >60 [facility] Comment on above: Performed By: #### B HCG #### [address] [place] [address] #### PROG #### [facility] [address] [place] [address] GFR,non Amer >60 Normal >60 [facility] Comment on above: Performed By: #### B HCG #### [address] [place] [address] #### PROG #### [facility] [address] [place] [address] Glucose [Mass/Vol] 144 mg/dL High 70-99 [facility] Comment on above: Performed By: #### B HCG #### [address] [place] [address] #### PROG #### [facility] [address] [place] [address] Potassium [Moles/Vol] 4.8 mmol/L Normal 3.7-5.3 [facility] Comment on above: Performed By: #### B HCG #### [address] [place] [address] #### PROG #### [facility] [address] [place] [address] Protein [Mass/Vol] 5.6 g/dL Low 6.4-8.3 [facility] Comment on above: Performed By: #### B HCG #### [address] [place] [address] #### PROG #### [facility] [address] [place] [address] Sodium [Moles/Vol] 135 mmol/L Normal 135-144 [facility] Comment on above: Performed By: #### B HCG #### [address] [place] [address] #### PROG #### [address] [address] Staging: Normal [facility] Comment on above: Result Comment: Stag e 1: Some kidney damage normal GFR Stage 2: Mild kidney damage GFR 60-89 Stage 3: Moderate kidney damage GFR 30-59 Stage 4: Severe kidney damage GFR 15-29 Stage 5: Severe kidney damage GFR <15 ESRD - chronic treatment by dialysis or transplant Performed By: #### B HCG #### [address] [place] [address] #### PROG #### [address] [address] Urea nitrogen [Mass/Vol] 8 mg/dL Normal 6-20 [facility] Comment on above: Performed By: #### B HCG #### [address] [place] [address] #### PROG #### [address] [address] (cont.) Normal [facility] Comment on above: Result Comment: Aver age GFR for 30-39 years old: 107 mL/min/1.73sq m Chronic Kidney Disease: <60 mL/min/1.73sq m Kidney failure: <15 mL/min/1.73sq m eGFR calculated using average adult body mass. Additional eGFR calculator available at: http://www.[employer].com/multiple_crcl_2012.htm Performed By: #### B HCG #### [address] [place] [address] #### PROG #### [address] [address] Albumin [Mass/Vol] 3.3 g/dL Low 3.5-5.2 [facility] Comment on above: Performed By: #### B HCG #### [address] [place] [address] #### PROG #### [address] [address] Albumin/Globulin [Mass ratio] 1.1 {ratio} Normal 1.0-2.5 [facility] Comment on above: Performed By: #### B HCG #### [address] [place] [address] #### PROG #### [address] [address] Alkaline Phos 137 U/L High 35-104 [facility] Comment on above: Performed By: #### B HCG #### [address] [place] [address] #### PROG #### [address] [address] ALT [Catalytic activity/Vol] 60 U/L High 5-33 [facility] Comment on above: Performed By: #### B HCG #### [address] [place] [address] #### PROG #### [address] [address] Anion gap [Moles/Vol] 14 mmol/L Normal 9-17 [facility] Comment on above: Performed By: #### B HCG #### [address] [place] [address] #### PROG #### [address] [address] AST [Catalytic activity/Vol] 53 U/L High <32 [facility] Comment on above: Performed By: #### B HCG #### [address] [place] [address] #### PROG #### [address] [address] Bilirubin Ql (U) 0.64 mg/dL Normal 0.3-1.2 [facility] Comment on above: Performed By: #### B HCG #### [address] [place] [address] #### PROG #### [address] [address] BUN/CRE Ratio 11 Normal 9-20 [facility] Comment on above: Performed By: #### B HCG #### [address] [place] [address] #### PROG #### [address] [address] Calcium [Mass/Vol] 9.2 mg/dL Normal 8.6-10.4 [facility] Comment on above: Performed By: #### B HCG #### [address] [place] [address] #### PROG #### [address] [address] Chloride [Moles/Vol] 100 mmol/L Normal 98-107 [facility] Comment on above: Performed By: #### B HCG #### [address] [place] [address] #### PROG #### [address] [address] CO2 [Moles/Vol] 22 mmol/L Normal 20-31 [facility] Comment on above: Performed By: #### B HCG #### [address] [place] [address] #### PROG #### [address] [address] Creatinine [Mass/Vol] 0.62 mg/dL Normal 0.50-0.90 [facility] Comment on above: Performed By: #### B HCG #### [address] [place] [address] #### PROG #### [address] [address] GFR, Amer >60 Normal >60 [facility] Comment on above: Performed By: #### B HCG #### [address] [place] [address] #### PROG #### [address] [address] GFR,non Amer >60 Normal >60 [facility] Comment on above: Performed By: #### B HCG #### [address] [place] [address] #### PROG #### [address] [address] Glucose [Mass/Vol] 90 mg/dL Normal 70-99 [facility] Comment on above: Performed By: #### B HCG #### [address] [place] [address] #### PROG #### [address] [address] Potassium [Moles/Vol] 4.3 mmol/L Normal 3.7-5.3 [facility] Comment on above: Performed By: #### B HCG #### [address] [place] [address] #### PROG #### [address] [address] Protein [Mass/Vol] 6.3 g/dL Low 6.4-8.3 [facility] Comment on above: Performed By: #### B HCG #### [address] [place] [address] #### PROG #### [address] [address] Sodium [Moles/Vol] 136 mmol/L Normal 135-144 [facility] Comment on above: Performed By: #### B HCG #### [address] [place] [address] #### PROG #### [address] [address] Staging: Normal [facility] Comment on above: Result Comment: Stag e 1: Some kidney damage normal GFR Stage 2: Mild kidney damage GFR 60-89 Stage 3: Moderate kidney damage GFR 30-59 Stage 4: Severe kidney damage GFR 15-29 Stage 5: Severe kidney damage GFR <15 ESRD - chronic treatment by dialysis or transplant Performed By: #### B HCG #### [address] [place] [address] #### PROG #### [address] [address] Urea nitrogen [Mass/Vol] 7 mg/dL Normal 6-20 [facility] Comment on above: Performed By: #### B HCG #### [address] [place] [address] #### PROG #### [address] [address] Drug Scr, Abuse, Uron 2018 Amphetamine(s),Ur Negative Normal NEG [facility] Comment on above: Performed By: #### B HCG #### [address] [place] [address] #### PROG #### [address] [address] Barbiturate(s),Ur Negative Normal [facility] Comment on above: Performed By: #### B HCG #### [address] [place] [address] #### PROG #### [address] [address] Base excess Calc (Bld) [Moles/Vol] Negative Normal [facility] Comment on above: Performed By: #### B HCG #### [address] [place] [address] #### PROG #### [address] [address] Benzodiazepine(s) Negative Normal [facility] Comment on above: Performed By: #### B HCG #### [address] [place] [address] #### PROG #### [address] [address] Buprenorphrine, Ur Negative Normal [facility] Comment on above: Performed By: #### B HCG #### [address] [place] [address] #### PROG #### [address] [address] Cannabinoid(s),Ur Negative Normal [facility] Comment on above: Performed By: #### B HCG #### [address] [place] [address] #### PROG #### [address] [address] Methadone Ql (U) Negative Normal [facility] Comment on above: Performed By: #### B HCG #### [address] [place] [address] #### PROG #### [address] [address] Methamphetamine, Ur Negative Normal NEG [facility] Comment on above: Performed By: #### B HCG #### [address] [place] [address] #### PROG #### [address] [address] Opiate(s), Ur Negative Normal NEG [facility] Comment on above: Performed By: #### B HCG #### [address] [place] [address] #### PROG #### [address] [address] Oxycodone, Urine Negative Normal NEG [facility] Comment on above: Performed By: #### B HCG #### [address] [place] [address] #### PROG #### [address] [address] Phencyclidine, Ur Negative Normal NEG [facility] Comment on above: Performed By: #### B HCG #### [address] [place] [address] #### PROG #### [address] [address] Propoxyphene,Urine Negative Normal NEG [facility] Comment on above: Performed By: #### B HCG #### [address] [place] [address] #### PROG #### [address] [address] Tricyclic antidepressants Screen Ql (U) Negative Normal NEG [facility] Comment on above: Result Comment: Drug screen results are to be used for medical purposes only. All positive results are unconfirmed. Testing for employment or legal uses should be sent to a reference laboratory for confirmation. Performed By: #### B HCG #### [address] [place] [address] #### PROG #### [address] [address] Interpretive Info NOT REPORTED Normal [facility] Comment on above: Performed By: #### B HCG #### [address] [place] [address] #### PROG #### [address] [address] MDMA, Urine NOT REPORTED Normal NEG [facility] Comment on above: Performed By: #### B HCG #### [address] [place] [address] #### PROG #### [address] [address] Lactate Dehydrogenaseon 07-22 LDH [Catalytic activity/Vol] 234 U/L High 135-214 [facility] Comment on above: Performed By: #### B HCG #### [address] [place] [address] #### PROG #### [address] [address] Surgical Pathologyon 019 Surgical Pathology (NOTE) [id number] [employer] CONSULTING PATHOLOGISTS [facility] ANATOMIC PATHOLOGY [address] [place] [id number] SURGICAL PATHOLOGY CONSULTATION Patient Name: MORRO MALONEY [facility] Rec: [id number] Path Number: [id number] Collected: 08/02/2018 Received: 08/02/2018 Reported: 08/03/2018 15:34 [...] Normal Insertion into surface: Marginal MEMBRANES Color: [place], mostly translucent with a partial circummarginate insertion [...] Normal Insertion into surface: Paracentral MEMBRANES Color: [place], translucent with a partial circummarginate insertion over [...] capillaries: Not increased Other: Few microcalcifications Normal [facility] Comment on above: Performed By: #### B HCG #### [address] [place] [address] #### PROG #### [address] [address] Type + Screenon 08-02-2018 Type + Screen Sample Expiration 08/04/2018 Arm Band Number [id number] ABO/Rh(D) O POSITIVE Antibody Screen NEGATIVE Normal [facility] Comment on above: Performed By: #### B HCG #### [address] [place] [address] #### PROG #### [address] [address] Uric Acidon 08-02-2018 Urate [Mass/Vol] 5.9 mg/dL High 2.4-5.7 [facility] Comment on above: Performed By: #### B HCG #### [address] [place] [address] #### PROG #### [address] [address] Urinalysis, Routineon 2018 Acetoacetic Acid,Ur Negative Normal NEG [facility] Comment on above: Performed By: #### B HCG #### [address] [place] [address] #### PROG #### [address] [address] Bilirubin, SemiQt,Ur SMALL Abnormal NEG [facility] Comment on above: Performed By: #### B HCG #### [address] [place] [address] #### PROG #### [address] [address] Color (U) YELLOW Normal YEL [facility] Comment on above: Performed By: #### B HCG #### [address] [place] [address] #### PROG #### [address] [address] Glucose Ql (U) Negative Normal [facility] Comment on above: Performed By: #### B HCG #### [address] [place] [address] #### PROG #### [address] [address] Hemoglobin, Ur 3+ Abnormal NEG [facility] Comment on above: Performed By: #### B HCG #### [address] [place] [address] #### PROG #### [address] [address] Leukocyte esterase Test strip Ql (U) SMALL Abnormal NEG [facility] Comment on above: Performed By: #### B HCG #### [address] [place] [address] #### PROG #### [address] [address] Nitrite,Ur Negative Normal [facility] Comment on above: Performed By: #### B HCG #### [address] [place] [address] #### PROG #### [address] [address] pH (U) 6.0 [pH] Normal 5.0-9.0 [facility] Comment on above: Performed By: #### B HCG #### [address] [place] [address] #### PROG #### [address] [address] Protein Ql (U) 1+ Abnormal NEG [facility] Comment on above: Performed By: #### B HCG #### [address] [place] [address] #### PROG #### [address] [address] Specific gravity (U) [Rel density] 1.025 High 1.010-1.020 [facility] Comment on above: Performed By: #### B HCG #### [address] [place] [address] #### PROG #### [address] [address] Turbidity CLEAR Normal CLEAR [facility] Comment on above: Performed By: #### B HCG #### [address] [place] [address] #### PROG #### [address] [address] Urobilinogen,Ur Normal Normal NORM [facility] Comment on above: Performed By: #### B HCG #### [address] [place] [address] #### PROG #### [address] [address] Comment NOT REPORTED Normal [facility] Comment on above: Performed By: #### B HCG #### [address] [place] [address] #### PROG #### [address] [address] Urinalysis,Microon 9 ----- Normal [facility] Comment on above: Performed By: #### B HCG #### [address] [place] [address] #### PROG #### [address] [address] Epithelial cells LM.HPF (Urine sed) [#/Area] 0 TO 2 Normal 0-25 [facility] Comment on above: Performed By: #### B HCG #### [address] [place] [address] #### PROG #### [address] [address] RBC (U) [#/Vol] 10 TO 20 Normal 0-2 [facility] Comment on above: Performed By: #### B HCG #### [address] [place] [address] #### PROG #### [address] [address] WBC (U) [#/Vol] 5 TO 10 Normal 0-5 [facility] Comment on above: Performed By: #### B HCG #### [address] [place] [address] #### PROG #### [address] [address] Amorphous sediment LM Ql (Urine sed) NOT REPORTED Normal NONE [facility] Comment on above: Performed By: #### B HCG #### [address] [place] [address] #### PROG #### [facility] [address] [place] [address] Bacteria LM.HPF (Urine sed) [#/Area] NOT REPORTED Normal NONE [facility] Comment on above: Performed By: #### B HCG #### [address] [place] [address] #### PROG #### [address] [address] Casts LM.LPF (Urine sed) [#/Area] NOT REPORTED Normal [facility] Comment on above: Performed By: #### B HCG #### [address] [place] [address] #### PROG #### [address] [address] Crystals LM Nom (Urine sed) NOT REPORTED Normal [facility] Comment on above: Performed By: #### B HCG #### [address] [place] [address] #### PROG #### [address] [address] Epithelial, Renal NOT REPORTED Normal 0 [facility] Comment on above: Performed By: #### B HCG #### [address] [place] [address] #### PROG #### [facility] [address] [place] [address] Mucus Strands NOT REPORTED Normal NONE [facility] Comment on above: Performed By: #### B HCG #### [address] [place] [address] #### PROG #### [address] [address] Other Observations NOT REPORTED Normal NREQ [facility] Comment on above: Performed By: #### B HCG #### [address] [place] [address] #### PROG #### [address] [address] Trichomonas NOT REPORTED Normal NONE [facility] Comment on above: Performed By: #### B HCG #### [address] [place] [id number] #### PROG #### [address] [address] Yeast LM Ql (Urine sed) NOT REPORTED Normal NONE [facility] Comment on above: Performed By: #### B HCG #### [address] [place] [address] #### PROG #### [address] [address] CBC with Diffon 07-22-2018 Abs. Basophil 0.05 k/uL Normal 0.00-0.20 [facility] Comment on above: Performed By: #### B HCG #### [address] [place] [address] #### PROG #### [address] [address] Abs.Imm.Granulocyte 0.05 k/uL Normal 0.00-0.30 [facility] Comment on above: Performed By: #### B HCG #### [address] [place] [address] #### PROG #### [address] [address] Abs.Neutrophil (Seg) 6.50 k/uL Normal 1.50-8.10 [facility] Comment on above: Performed By: #### B HCG #### [address] [place] [address] #### PROG #### [address] [address] Basophils/100 WBC (Bld) 1 % Normal 0-2 [facility] Comment on above: Performed By: #### B HCG #### [address] [place] [address] #### PROG #### [address] [address] Eosinophils (Bld) [#/Vol] 0.41 10*3/uL Normal 0.00-0.44 [facility] Comment on above: Performed By: #### B HCG #### [address] [place] [address] #### PROG #### [address] [address] Eosinophils/100 WBC (Bld) 4 % Normal 1-4 [facility] Comment on above: Performed By: #### B HCG #### [address] [place] [address] #### PROG #### [address] [address] Erythrocyte distribution width (RBC) [Ratio] 16.0 % High 11.8-14.4 [facility] Comment on above: Performed By: #### B HCG #### [address] [place] [address] #### PROG #### [address] [address] Hematocrit (Bld) [Volume fraction] 35.8 % Low 36.3-47.1 [facility] Comment on above: Performed By: #### B HCG #### [address] [place] [address] #### PROG #### [address] [address] Hemoglobin (Bld) [Mass/Vol] 10.9 g/dL Low 11.9-15.1 [facility] Comment on above: Performed By: #### B HCG #### [address] [place] [address] #### PROG #### [address] [address] Immature granulocytes (Bld) [#/Vol] 1 % High 0 [facility] Comment on above: Performed By: #### B HCG #### [address] [place] [address] #### PROG #### [address] [address] Lymphocytes (Bld) [#/Vol] 3.07 10*3/uL Normal 1.10-3.70 [facility] Comment on above: Performed By: #### B HCG #### [address] [place] [address] #### PROG #### [address] [address] Lymphocytes/100 WBC (Bld) 28 % Normal 24-43 [facility] Comment on above: Performed By: #### B HCG #### [address] [place] [address] #### PROG #### [address] [address] MCH (RBC) [Entitic mass] 25.6 pg Normal 25.2-33.5 [facility] Comment on above: Performed By: #### B HCG #### [address] [place] [address] #### PROG #### [place] [address] [place] [address] MCHC (RBC) [Mass/Vol] 30.4 g/dL Normal 28.4-34.8 [facility] Comment on above: Performed By: #### B HCG #### [address] [place] [address] #### PROG #### [address] [address] MCV (RBC) [Entitic vol] 84.0 fL Normal 82.6-102.9 [facility] Comment on above: Performed By: #### B HCG #### [address] [place] [address] #### PROG #### [address] [address] Monocytes (Bld) [#/Vol] 0.84 10*3/uL Normal 0.10-1.20 [facility] Comment on above: Performed By: #### B HCG #### [address] [place] [address] #### PROG #### [address] [address] Monocytes/100 WBC (Bld) 8 % Normal 3-12 [facility] Comment on above: Performed By: #### B HCG #### [address] [place] [address] #### PROG #### [address] [address] Neutrophil (Seg) 58 % Normal 36-65 [facility] Comment on above: Performed By: #### B HCG #### [address] [place] [address] #### PROG #### [address] [address] NRBC Automated 0.0 per 100 WBC Normal 0.0 [facility] Comment on above: Performed By: #### B HCG #### [address] [place] [address] #### PROG #### [address] [address] Platelet mean volume (Bld) [Entitic vol] 10.4 fL Normal 8.1-13.5 [facility] Comment on above: Performed By: #### B HCG #### [address] [place] [address] #### PROG #### [address] [address] Platelets (Bld) [#/Vol] 260 10*3/uL Normal 138-453 [facility] Comment on above: Performed By: #### B HCG #### [address] [place] [address] #### PROG #### [address] [address] RBC (Bld) [#/Vol] 4.26 10*6/uL Normal 3.95-5.11 [facility] Comment on above: Performed By: #### B HCG #### [address] [place] [address] #### PROG #### [address] [address] WBC (Bld) [#/Vol] 10.9 10*3/uL Normal 3.5-11.3 [facility] Comment on above: Performed By: #### B HCG #### [address] [place] [address] #### PROG #### [place] [address] [place] [address] Auto Diff Performed NOT REPORTED Normal [facility] Comment on above: Performed By: #### B HCG #### [address] [place] [address] #### PROG #### [address] [address] Platelets (Bld) [#/Vol] NOT REPORTED Normal [facility] Comment on above: Performed By: #### B HCG #### [address] [place] [address] #### PROG #### [address] [address] RBC morphology finding Nom (Bld) NOT REPORTED Normal [facility] Comment on above: Performed By: #### B HCG #### [address] [place] [address] #### PROG #### [address] [address] WBC Morphology NOT REPORTED Normal [facility] Comment on above: Performed By: #### B HCG #### [address] [place] [address] #### PROG #### [address] [address] Comp Metabolic Profon 2018 (cont.) Normal [facility] Comment on above: Result Comment: Aver age GFR for 30-39 years old: 107 mL/min/1.73sq m Chronic Kidney Disease: <60 mL/min/1.73sq m Kidney failure: <15 mL/min/1.73sq m eGFR calculated using average adult body mass. Additional eGFR calculator available at: http://www.[email or web address]/multiple_crcl_2012.htm Performed By: #### B HCG #### [address] [place] [address] #### PROG #### [address] [address] Albumin [Mass/Vol] 3.2 g/dL Low 3.5-5.2 [facility] Comment on above: Performed By: #### B HCG #### [address] [place] [address] #### PROG #### [address] [address] Albumin/Globulin [Mass ratio] 1.1 {ratio} Normal 1.0-2.5 [facility] Comment on above: Performed By: #### B HCG #### [address] [place] [address] #### PROG #### [address] [address] Alkaline Phos 113 U/L High 35-104 [facility] Comment on above: Performed By: #### B HCG #### [address] [place] [address] #### PROG #### [address] [address] ALT [Catalytic activity/Vol] 41 U/L High 5-33 [facility] Comment on above: Performed By: #### B HCG #### [address] [place] [address] #### PROG #### [address] [address] Anion gap [Moles/Vol] 12 mmol/L Normal 9-17 [facility] Comment on above: Performed By: #### B HCG #### [address] [place] [address] #### PROG #### [address] [address] AST [Catalytic activity/Vol] 29 U/L Normal <32 [facility] Comment on above: Performed By: #### B HCG #### [address] [place] [address] #### PROG #### [address] [address] Bilirubin Ql (U) 0.40 mg/dL Normal 0.3-1.2 [facility] Comment on above: Performed By: #### B HCG #### [address] [place] [address] #### PROG #### [address] [address] BUN/CRE Ratio 8 Low 9-20 [facility] Comment on above: Performed By: #### B HCG #### [address] [place] [address] #### PROG #### [address] [address] Calcium [Mass/Vol] 9.2 mg/dL Normal 8.6-10.4 [facility] Comment on above: Performed By: #### B HCG #### [address] [place] [address] #### PROG #### [address] [address] Chloride [Moles/Vol] 104 mmol/L Normal 98-107 [facility] Comment on above: Performed By: #### B HCG #### [address] [place] [address] #### PROG #### [address] [address] CO2 [Moles/Vol] 21 mmol/L Normal 20-31 [facility] Comment on above: Performed By: #### B HCG #### [address] [place] [address] #### PROG #### [address] [address] Creatinine [Mass/Vol] 0.62 mg/dL Normal 0.50-0.90 [facility] Comment on above: Performed By: #### B HCG #### [address] [place] [address] #### PROG #### [address] [address] GFR, Amer >60 Normal >60 [facility] Comment on above: Performed By: #### B HCG #### [address] [place] [address] #### PROG #### [address] [address] GFR,non Amer >60 Normal >60 [facility] Comment on above: Performed By: #### B HCG #### [address] [place] [address] #### PROG #### [address] [address] Glucose [Mass/Vol] 83 mg/dL Normal 70-99 [facility] Comment on above: Performed By: #### B HCG #### [address] [place] [address] #### PROG #### [address] [address] Potassium [Moles/Vol] 4.3 mmol/L Normal 3.7-5.3 [facility] Comment on above: Performed By: #### B HCG #### [address] [place] [address] #### PROG #### [address] [address] Protein [Mass/Vol] 6.0 g/dL Low 6.4-8.3 [facility] Comment on above: Performed By: #### B HCG #### [address] [place] [address] #### PROG #### [address] [address] Sodium [Moles/Vol] 137 mmol/L Normal 135-144 [facility] Comment on above: Performed By: #### B HCG #### [address] [place] [address] #### PROG #### [address] [address] Staging: Normal [facility] Comment on above: Result Comment: Stag e 1: Some kidney damage normal GFR Stage 2: Mild kidney damage GFR 60-89 Stage 3: Moderate kidney damage GFR 30-59 Stage 4: Severe kidney damage GFR 15-29 Stage 5: Severe kidney damage GFR <15 ESRD - chronic treatment by dialysis or transplant Performed By: #### B HCG #### [address] [place] [address] #### PROG #### [address] [address] Urea nitrogen [Mass/Vol] 5 mg/dL Low 6-20 [facility] Comment on above: Performed By: #### B HCG #### [address] [place] [address] #### PROG #### [address] [place] [address] Creatinine,Random Uron 07-22 Creatinine [Mass/Vol] 106.1 mg/dL Normal 28.0-217.0 [facility] Comment on above: Performed By: #### B HCG #### [address] [place] [address] #### PROG #### [address] [address] Cult,Urineon 07-22-2018 Cult,Urine Specimen Description .CLEAN CATCH URINE Special Requests NOT REPORTED Culture NO GROWTH Report Status FINAL 07/21/2018 Normal [facility] Comment on above: Performed By: #### B HCG #### [address] [place] [address] #### PROG #### [address] [address] Protein,Tot,[place] Uron 2018 Tot Prot. Conc. 14 mg/dL Normal [facility] Comment on above: Result Comment: No n ormal range established. Performed By: #### B HCG #### [address] [place] [address] #### PROG #### [address] [address] Uric Acidon 07-22-2018 Urate [Mass/Vol] 5.4 mg/dL Normal 2.4-5.7 [facility] Comment on above: Performed By: #### B HCG #### [address] [place] [address] #### PROG #### [address] [address] CBC with Diffon 07-21-2018 Abs. Basophil 0.06 k/uL Normal 0.00-0.20 [facility] Comment on above: Performed By: #### B HCG #### [address] [place] [address] Abs.Imm.Granulocyte 0.15 k/uL Normal 0.00-0.30 [facility] Comment on above: Performed By: #### B HCG #### [address] [place] [address] Abs.Neutrophil (Seg) 9.77 k/uL High 1.50-8.10 [facility] Comment on above: Performed By: #### B HCG #### [address] [place] [address] Basophils/100 WBC (Bld) 0 % Normal 0-2 [facility] Comment on above: Performed By: #### B HCG #### [address] [place] [address] Eosinophils (Bld) [#/Vol] 0.34 10*3/uL Normal 0.00-0.44 [facility] Comment on above: Performed By: #### B HCG #### [address] [place] [address] Eosinophils/100 WBC (Bld) 2 % Normal 1-4 [facility] Comment on above: Performed By: #### B HCG #### [address] [place] [address] Erythrocyte distribution width (RBC) [Ratio] 15.9 % High 11.8-14.4 [facility] Comment on above: Performed By: #### B HCG #### [address] [place] [address] Hematocrit (Bld) [Volume fraction] 34.5 % Low 36.3-47.1 [facility] Comment on above: Performed By: #### B HCG #### [address] [place], [facility] Hemoglobin (Bld) [Mass/Vol] 10.5 g/dL Low 11.9-15.1 [facility] Comment on above: Performed By: #### B HCG #### [address] [place] [address] Immature granulocytes (Bld) [#/Vol] 1 % High 0 [facility] Comment on above: Performed By: #### B HCG #### [address] [place] [address] Lymphocytes (Bld) [#/Vol] 3.00 10*3/uL Normal 1.10-3.70 [facility] Comment on above: Performed By: #### B HCG #### [address] [place] [address] Lymphocytes/100 WBC (Bld) 21 % Low 24-43 [facility] Comment on above: Performed By: #### B HCG #### [address] [place] [address] MCH (RBC) [Entitic mass] 25.5 pg Normal 25.2-33.5 [facility] Comment on above: Performed By: #### B HCG #### [address] [place] [address] MCHC (RBC) [Mass/Vol] 30.4 g/dL Normal 28.4-34.8 [facility] Comment on above: Performed By: #### B HCG #### [address] [place] [address] MCV (RBC) [Entitic vol] 83.9 fL Normal 82.6-102.9 [facility] Comment on above: Performed By: #### B HCG #### [address] [place] [address] Monocytes (Bld) [#/Vol] 1.19 10*3/uL Normal 0.10-1.20 [facility] Comment on above: Performed By: #### B HCG #### [address] [place] [address] Monocytes/100 WBC (Bld) 8 % Normal 3-12 [facility] Comment on above: Performed By: #### B HCG #### [address] [place] [address] Neutrophil (Seg) 68 % High 36-65 [facility] Comment on above: Performed By: #### B HCG #### [address] [place] [address] NRBC Automated 0.0 per 100 WBC Normal 0.0 [facility] Comment on above: Performed By: #### B HCG #### [address] [place] [address] Platelet mean volume (Bld) [Entitic vol] 9.9 fL Normal 8.1-13.5 [facility] Comment on above: Performed By: #### B HCG #### [address] [place] [address] Platelets (Bld) [#/Vol] 276 10*3/uL Normal 138-453 [facility] Comment on above: Performed By: #### B HCG #### [address] [place] [address] RBC (Bld) [#/Vol] 4.11 10*6/uL Normal 3.95-5.11 [facility] Comment on above: Performed By: #### B HCG #### [address] [place] [address] WBC (Bld) [#/Vol] 14.5 10*3/uL High 3.5-11.3 [facility] Comment on above: Performed By: #### B HCG #### [address] [place] [address] Auto Diff Performed NOT REPORTED Normal [facility] Comment on above: Performed By: #### B HCG #### [address] [place] [address] Platelets (Bld) [#/Vol] NOT REPORTED Normal [facility] Comment on above: Performed By: #### B HCG #### [address] [place] [address] RBC morphology finding Nom (Bld) NOT REPORTED Normal [facility] Comment on above: Performed By: #### B HCG #### [address] [place] [address] WBC Morphology NOT REPORTED Normal [facility] Comment on above: Performed By: #### B HCG #### [address] [place] [address] Comp Metabolic Profon 2018 AST [Catalytic activity/Vol] 33 U/L High <32 [facility] Comment on above: Performed By: #### B HCG #### [address] [place] [address] (cont.) Normal [facility] Comment on above: Result Comment: Aver age GFR for 30-39 years old: 107 mL/min/1.73sq m Chronic Kidney Disease: <60 mL/min/1.73sq m Kidney failure: <15 mL/min/1.73sq m eGFR calculated using average adult body mass. Additional eGFR calculator available at: http://www.[employer] [email or web address] Performed By: #### B HCG #### [address] [place] [address] Albumin [Mass/Vol] 3.3 g/dL Low 3.5-5.2 [facility] Comment on above: Performed By: #### B HCG #### [address] [place] [address] Albumin/Globulin [Mass ratio] 1.1 {ratio} Normal 1.0-2.5 [facility] Comment on above: Performed By: #### B HCG #### [address] [place] [address] Alkaline Phos 113 U/L High 35-104 [facility] Comment on above: Performed By: #### B HCG #### [address] [place] [address] ALT [Catalytic activity/Vol] 46 U/L High 5-33 [facility] Comment on above: Performed By: #### B HCG #### [address] [place] [address] Anion gap [Moles/Vol] 13 mmol/L Normal 9-17 [facility] Comment on above: Performed By: #### B HCG #### [address] [place] [address] Bilirubin Ql (U) 0.49 mg/dL Normal 0.3-1.2 [facility] Comment on above: Performed By: #### B HCG #### [address] [place] [address] BUN/CRE Ratio 12 Normal 9-20 [facility] Comment on above: Performed By: #### B HCG #### [address] [place] [address] Calcium [Mass/Vol] 9.5 mg/dL Normal 8.6-10.4 [facility] Comment on above: Performed By: #### B HCG #### [address] [place] [address] Chloride [Moles/Vol] 103 mmol/L Normal 98-107 [facility] Comment on above: Performed By: #### B HCG #### [address] [place] [address] CO2 [Moles/Vol] 20 mmol/L Normal 20-31 [facility] Comment on above: Performed By: #### B HCG #### [address] [place] [address] Creatinine [Mass/Vol] 0.57 mg/dL Normal 0.50-0.90 [facility] Comment on above: Performed By: #### B HCG #### [address] [place] [address] GFR, Amer >60 Normal >60 [facility] Comment on above: Performed By: #### B HCG #### [address] [place] [address] GFR,non Amer >60 Normal >60 [facility] Comment on above: Performed By: #### B HCG #### [address] [place] [address] Glucose [Mass/Vol] 94 mg/dL Normal 70-99 [facility] Comment on above: Performed By: #### B HCG #### [address] [place] [address] Potassium [Moles/Vol] 4.0 mmol/L Normal 3.7-5.3 [facility] Comment on above: Performed By: #### B HCG #### [address] [place] [address] Protein [Mass/Vol] 6.2 g/dL Low 6.4-8.3 [facility] Comment on above: Performed By: #### B HCG #### [address] [place] [address] Sodium [Moles/Vol] 136 mmol/L Normal 135-144 [facility] Comment on above: Performed By: #### B HCG #### [address] [place] [address] Staging: Normal [facility] Comment on above: Result Comment: Stag e 1: Some kidney damage normal GFR Stage 2: Mild kidney damage GFR 60-89 Stage 3: Moderate kidney damage GFR 30-59 Stage 4: Severe kidney damage GFR 15-29 Stage 5: Severe kidney damage GFR <15 ESRD - chronic treatment by dialysis or transplant Performed By: #### B HCG #### [address] [place] [address] Urea nitrogen [Mass/Vol] 7 mg/dL Normal 6-20 [facility] Comment on above: Performed By: #### B HCG #### [address] [place] [address] Urinalysis, Routineon 2018 Acetoacetic Acid,Ur 2+ Abnormal [facility] Comment on above: Performed By: #### B HCG #### [address] [place] [address] Bilirubin, SemiQt,Ur SMALL Abnormal NEG [facility] Comment on above: Performed By: #### B HCG #### [address] [place] [address] Color (U) YELLOW Normal [facility] Comment on above: Performed By: #### B HCG #### [address] [place] [address] Glucose Ql (U) Negative Normal [facility] Comment on above: Performed By: #### B HCG #### [address] [place] [address] Hemoglobin, Ur Negative Normal [facility] Comment on above: Performed By: #### B HCG #### [address] [place] [address] Leukocyte esterase Test strip Ql (U) TRACE Abnormal [facility] Comment on above: Performed By: #### B HCG #### [address] [place] [address] Nitrite,Ur Negative Normal [facility] Comment on above: Performed By: #### B HCG #### [address] [place] [address] pH (U) 5.5 [pH] Normal 5.0-9.0 [facility] Comment on above: Performed By: #### B HCG #### [address] [place] [address] Protein Ql (U) TRACE Abnormal NEG [facility] Comment on above: Performed By: #### B HCG #### [address] [place] [address] Specific gravity (U) [Rel density] 1.025 High 1.010-1.020 [facility] Comment on above: Performed By: #### B HCG #### [address] [place] [address] Turbidity CLEAR Normal CLEAR [facility] Comment on above: Performed By: #### B HCG #### [address] [place] [address] Urobilinogen,Ur Normal Normal NORM [facility] Comment on above: Performed By: #### B HCG #### [address] [place] [address] Comment NOT REPORTED Normal [facility] Comment on above: Performed By: #### B HCG #### [address] [place] [address] Urinalysis,Microon 9 ----- Normal [facility] Comment on above: Performed By: #### B HCG #### [address] [place] [address] Amorphous sediment LM Ql (Urine sed) 1+ Abnormal NONE [facility] Comment on above: Performed By: #### B HCG #### [address] [place] [address] Bacteria LM.HPF (Urine sed) [#/Area] 1+ Abnormal NONE [facility] Comment on above: Performed By: #### B HCG #### [address] [place] [address] Epithelial cells LM.HPF (Urine sed) [#/Area] 2 TO 5 Normal 0-25 [facility] Comment on above: Performed By: #### B HCG #### [address] [place] [id number] Mucus Strands TRACE Abnormal NONE [facility] Comment on above: Performed By: #### B HCG #### [address] [place] [id number] RBC (U) [#/Vol] 0 TO 2 Normal 0-2 [facility] Comment on above: Performed By: #### B HCG #### [address] [place] [id number] WBC (U) [#/Vol] 2 TO 5 Normal 0-5 [facility] Comment on above: Performed By: #### B HCG #### [address] [place] [address] Casts LM.LPF (Urine sed) [#/Area] NOT REPORTED Normal [facility] Comment on above: Performed By: #### B HCG #### [address] [place] [address] Crystals LM Nom (Urine sed) NOT REPORTED Normal [facility] Comment on above: Performed By: #### B HCG #### [address] [place] [address] Epithelial, Renal NOT REPORTED Normal 0 [facility] Comment on above: Performed By: #### B HCG #### [address] [place] [address] Other Observations NOT REPORTED Normal NREQ [facility] Comment on above: Performed By: #### B HCG #### [address] [place] [address] Trichomonas NOT REPORTED Normal NONE [facility] Comment on above: Performed By: #### B HCG #### [address] [place] [address] Yeast LM Ql (Urine sed) NOT REPORTED Normal NONE [facility] Comment on above: Performed By: #### B HCG #### [address] [place] [address] Cult,Urineon 07-20-2018 Cult,Urine Specimen Description .CLEAN CATCH URINE Special Requests NOT REPORTED Culture NO SIGNIFICANT GROWTH Report Status FINAL 07/20/2018 Normal [facility] Comment on above: Performed By: #### B HCG #### [address] [place], [facility] APTTon 07-19-2018 aPTT Coag (Bld) [Time] 27.0 s Normal 23.2-34.4 [facility] Comment on above: Performed By: #### B HCG #### [address] [place] [address] CBC with Diffon 07-19-2018 Abs. Basophil 0.05 k/uL Normal 0.00-0.20 [facility] Comment on above: Performed By: #### B HCG #### [address] [place] [address] Abs.Imm.Granulocyte 0.07 k/uL Normal 0.00-0.30 [facility] Comment on above: Performed By: #### B HCG #### [address] [place] [address] Abs.Neutrophil (Seg) 7.01 k/uL Normal 1.50-8.10 [facility] Comment on above: Performed By: #### B HCG #### [address] [place] [address] Basophils/100 WBC (Bld) 0 % Normal 0-2 [facility] Comment on above: Performed By: #### B HCG #### [address] [place] [address] Eosinophils (Bld) [#/Vol] 0.28 10*3/uL Normal 0.00-0.44 [facility] Comment on above: Performed By: #### B HCG #### [address] [place], [facility] Eosinophils/100 WBC (Bld) 2 % Normal 1-4 [facility] Comment on above: Performed By: #### B HCG #### [address] [place] [address] Erythrocyte distribution width (RBC) [Ratio] 15.8 % High 11.8-14.4 [facility] Comment on above: Performed By: #### B HCG #### [address] [place], [facility] Hematocrit (Bld) [Volume fraction] 34.1 % Low 36.3-47.1 [facility] Comment on above: Performed By: #### B HCG #### [address] [place], [facility] Hemoglobin (Bld) [Mass/Vol] 10.4 g/dL Low 11.9-15.1 [facility] Comment on above: Performed By: #### B HCG #### [address] [place], [facility] Immature granulocytes (Bld) [#/Vol] 1 % High 0 [facility] Comment on above: Performed By: #### B HCG #### [address] [place] [address] Lymphocytes (Bld) [#/Vol] 3.12 10*3/uL Normal 1.10-3.70 [facility] Comment on above: Performed By: #### B HCG #### [address] [place] [address] Lymphocytes/100 WBC (Bld) 27 % Normal 24-43 [facility] Comment on above: Performed By: #### B HCG #### [address] [place] [address] MCH (RBC) [Entitic mass] 25.6 pg Normal 25.2-33.5 [facility] Comment on above: Performed By: #### B HCG #### [address] [place] [address] MCHC (RBC) [Mass/Vol] 30.5 g/dL Normal 28.4-34.8 [facility] Comment on above: Performed By: #### B HCG #### [address] [place] [address] MCV (RBC) [Entitic vol] 84.0 fL Normal 82.6-102.9 [facility] Comment on above: Performed By: #### B HCG #### [address] [place] [address] Monocytes (Bld) [#/Vol] 0.93 10*3/uL Normal 0.10-1.20 [facility] Comment on above: Performed By: #### B HCG #### [address] [place] [address] Monocytes/100 WBC (Bld) 8 % Normal 3-12 [facility] Comment on above: Performed By: #### B HCG #### [address] [place] [address] Neutrophil (Seg) 62 % Normal 36-65 [facility] Comment on above: Performed By: #### B HCG #### [address] [place] [address] NRBC Automated 0.0 per 100 WBC Normal 0.0 [facility] Comment on above: Performed By: #### B HCG #### [address] [place] [address] Platelet mean volume (Bld) [Entitic vol] 9.8 fL Normal 8.1-13.5 [facility] Comment on above: Performed By: #### B HCG #### [address] [place] [address] Platelets (Bld) [#/Vol] 277 10*3/uL Normal 138-453 [facility] Comment on above: Performed By: #### B HCG #### [address] [place] [address] RBC (Bld) [#/Vol] 4.06 10*6/uL Normal 3.95-5.11 [facility] Comment on above: Performed By: #### B HCG #### [address] [place] [address] WBC (Bld) [#/Vol] 11.5 10*3/uL High 3.5-11.3 [facility] Comment on above: Performed By: #### B HCG #### [address] [place] [address] Auto Diff Performed NOT REPORTED Normal [facility] Comment on above: Performed By: #### B HCG #### [address] [place] [address] Platelets (Bld) [#/Vol] NOT REPORTED Normal [facility] Comment on above: Performed By: #### B HCG #### [address] [place] [address] RBC morphology finding Nom (Bld) NOT REPORTED Normal [facility] Comment on above: Performed By: #### B HCG #### [address] [place] [address] WBC Morphology NOT REPORTED Normal [facility] Comment on above: Performed By: #### B HCG #### [address] [place] [address] Comp Metabolic Profon 2018 (cont.) Normal [facility] Comment on above: Result Comment: Aver age GFR for 30-39 years old: 107 mL/min/1.73sq m Chronic Kidney Disease: <60 mL/min/1.73sq m Kidney failure: <15 mL/min/1.73sq m eGFR calculated using average adult body mass. Additional eGFR calculator available at: [email or web address] Performed By: #### B HCG #### [address] [place] [id number] ([address] Albumin [Mass/Vol] 3.3 g/dL Low 3.5-5.2 [facility] Comment on above: Performed By: #### B HCG #### [address] [place] [address] Albumin/Globulin [Mass ratio] 1.2 {ratio} Normal 1.0-2.5 [facility] Comment on above: Performed By: #### B HCG #### [address] [place] [address] Alkaline Phos 108 U/L High 35-104 [facility] Comment on above: Performed By: #### B HCG #### [address] [place] [address] ALT [Catalytic activity/Vol] 40 U/L High 5-33 [facility] Comment on above: Performed By: #### B HCG #### [address] [place] [address] Anion gap [Moles/Vol] 11 mmol/L Normal 9-17 [facility] Comment on above: Performed By: #### B HCG #### [address] [place] [address] AST [Catalytic activity/Vol] 32 U/L High <32 [facility] Comment on above: Performed By: #### B HCG #### [address] [place] [address] Bilirubin Ql (U) 0.48 mg/dL Normal 0.3-1.2 [facility] Comment on above: Performed By: #### B HCG #### [address] [place] [address] BUN/CRE Ratio 12 Normal 9-20 [facility] Comment on above: Performed By: #### B HCG #### [address] [place] [address] Calcium [Mass/Vol] 9.4 mg/dL Normal 8.6-10.4 [facility] Comment on above: Performed By: #### B HCG #### [address] [place] [address] Chloride [Moles/Vol] 103 mmol/L Normal 98-107 [facility] Comment on above: Performed By: #### B HCG #### [address] [place] [address] CO2 [Moles/Vol] 22 mmol/L Normal 20-31 [facility] Comment on above: Performed By: #### B HCG #### [address] [place] [address] Creatinine [Mass/Vol] 0.66 mg/dL Normal 0.50-0.90 [facility] Comment on above: Performed By: #### B HCG #### [address] [place] [address] GFR, Amer >60 Normal >60 [facility] Comment on above: Performed By: #### B HCG #### [address] [place] [address] GFR,non Amer >60 Normal >60 [facility] Comment on above: Performed By: #### B HCG #### [address] [place] [address] Glucose [Mass/Vol] 86 mg/dL Normal 70-99 [facility] Comment on above: Performed By: #### B HCG #### [address] [place] [address] Potassium [Moles/Vol] 4.3 mmol/L Normal 3.7-5.3 [facility] Comment on above: Performed By: #### B HCG #### [address] [place] [address] Protein [Mass/Vol] 6.0 g/dL Low 6.4-8.3 [facility] Comment on above: Performed By: #### B HCG #### [address] [place] [address] Sodium [Moles/Vol] 136 mmol/L Normal 135-144 [facility] Comment on above: Performed By: #### B HCG #### [address] [place] [address] Staging: Normal [facility] Comment on above: Result Comment: Stag e 1: Some kidney damage normal GFR Stage 2: Mild kidney damage GFR 60-89 Stage 3: Moderate kidney damage GFR 30-59 Stage 4: Severe kidney damage GFR 15-29 Stage 5: Severe kidney damage GFR <15 ESRD - chronic treatment by dialysis or transplant Performed By: #### B HCG #### [address] [place] [address] Urea nitrogen [Mass/Vol] 8 mg/dL Normal 6-20 [facility] Comment on above: Performed By: #### B HCG #### [address] [place] [address] Fibrinogenon 07-19-2018 Fibrinogen 498 mg/dL High 185-451 [facility] Comment on above: Performed By: #### B HCG #### [address] [place] [address] PTon 07-19-2018 INR Coag (PPP) [Relative time] 1.0 {INR} Normal 0.9-1.2 [facility] Comment on above: Performed By: #### B HCG #### [address] [place] [address] PT Coag (PPP) [Time] 10.0 s Normal 9.7-12.2 [facility] Comment on above: Performed By: #### B HCG #### [address] [place], [facility] Protein,Tot,[place] 2018 Creatinine [Mass/Vol] 218.9 mg/dL High 28.0-217.0 [facility] Comment on above: Performed By: #### B HCG #### [address] [place] [address] TP/Cre Ratio 0.11 Normal 0.00-0.20 [facility] Comment on above: Performed By: #### B HCG #### [address] [place] [address] Tot Prot. Conc. 23 mg/dL Normal [facility] Comment on above: Result Comment: No n ormal range established. Performed By: #### B HCG #### [address] [place], [place] [address] US BIOPHYSICAL PROFILE WO NON STRESS TESTINGon [...] MD 07/19/18 Edited Result - FINAL Normal [facility] US OB TRANSVAGINALon 019 US OB TRANSVAGINAL [...] Cesario Ku MD 07/19/18 Final result Normal [facility] Uric Acidon 07-19-2018 Urate [Mass/Vol] 5.8 mg/dL High 2.4-5.7 [facility] Comment on above: Performed By: #### B HCG #### [address] [place] [address] Urinalysis, Routineon 2018 Acetoacetic Acid,Ur 1+ Abnormal NEG [facility] Comment on above: Performed By: #### B HCG #### [address] [place] [address] Bilirubin, SemiQt,Ur SMALL Abnormal NEG [facility] Comment on above: Performed By: #### B HCG #### [address] [place] [address] Color (U) YELLOW Normal YEL [facility] Comment on above: Performed By: #### B HCG #### [address] [place] [address] Glucose Ql (U) Negative Normal NEG [facility] Comment on above: Performed By: #### B HCG #### [address] [place] [address] Hemoglobin, Ur Negative Normal [facility] Comment on above: Performed By: #### B HCG #### [address] [place] [address] Leukocyte esterase Test strip Ql (U) LARGE Abnormal NEG [facility] Comment on above: Performed By: #### B HCG #### [address] [place] [address] Nitrite,Ur Negative Normal [facility] Comment on above: Performed By: #### B HCG #### [address] [place] [address] pH (U) 6.0 [pH] Normal 5.0-9.0 [facility] Comment on above: Performed By: #### B HCG #### [address] [place] [address] Protein Ql (U) TRACE Abnormal [facility] Comment on above: Performed By: #### B HCG #### [address] [place] [address] Specific gravity (U) [Rel density] 1.025 High 1.010-1.020 [facility] Comment on above: Performed By: #### B HCG #### [address] [place] [address] Turbidity CLOUDY Abnormal CLEAR [facility] Comment on above: Performed By: #### B HCG #### [address] [place] [address] Urobilinogen,Ur Normal Normal NORM [facility] Comment on above: Performed By: #### B HCG #### [address] [place] [address] Comment NOT REPORTED Normal [facility] Comment on above: Performed By: #### B HCG #### [address] [place] [address] Urinalysis,Microon 9 ----- Normal [facility] Comment on above: Performed By: #### B HCG #### [address] [place] [address] Bacteria LM.HPF (Urine sed) [#/Area] 3+ Abnormal NONE [facility] Comment on above: Performed By: #### B HCG #### [address] [place] [address] Epithelial cells LM.HPF (Urine sed) [#/Area] 10 TO 20 Normal 0-25 [facility] Comment on above: Performed By: #### B HCG #### [address] [place] [address] RBC (U) [#/Vol] None Normal 0-2 [facility] Comment on above: Performed By: #### B HCG #### [address] [place] [address] WBC (U) [#/Vol] 20 TO 50 Normal 0-5 [facility] Comment on above: Performed By: #### B HCG #### [address] [place] [address] Amorphous sediment LM Ql (Urine sed) NOT REPORTED Normal [facility] Comment on above: Performed By: #### B HCG #### [address] [place] [address] Casts LM.LPF (Urine sed) [#/Area] NOT REPORTED Normal [facility] Comment on above: Performed By: #### B HCG #### [address] [place] [address] Crystals LM Nom (Urine sed) NOT REPORTED Normal NONE [facility] Comment on above: Performed By: #### B HCG #### [address] [place] [address] Epithelial, Renal NOT REPORTED Normal 0 [facility] Comment on above: Performed By: #### B HCG #### [address] [place] [address] Mucus Strands NOT REPORTED Normal NONE [facility] Comment on above: Performed By: #### B HCG #### [address] [place] [address] Other Observations NOT REPORTED Normal NREQ [facility] Comment on above: Performed By: #### B HCG #### [address] [place] [address] Trichomonas NOT REPORTED Normal NONE [facility] Comment on above: Performed By: #### B HCG #### [address] [place] [address] Yeast LM Ql (Urine sed) NOT REPORTED Normal NONE [facility] Comment on above: Performed By: #### B HCG #### [address] [place] [address] Glucose Zeke. 3 hron 05-07-20 19 3 Hr 156 mg/dL High 65-139 [facility] Comment on above: Performed By: #### B HCG #### [address] [place] [address] 2 Hr 168 mg/dL High 65-154 [facility] Comment on above: Performed By: #### B HCG #### [address] [place] [address] 1 Hr 163 mg/dL Normal 65-179 [facility] Comment on above: Performed By: #### B HCG #### [address] [place] [address] Fasting 87 mg/dL Normal 65-94 [facility] Comment on above: Performed By: #### B HCG #### [address] [place] [address] Glucose [Mass/Vol] 100 g Normal [facility] Comment on above: Performed By: #### B HCG #### [address] [place] [address] CBC with Diffon 06-12-2018 Abs. Basophil 0.06 k/uL Normal 0.00-0.20 [facility] Comment on above: Performed By: #### P ASHLEY #### [address] [address] Abs.Imm.Granulocyte 0.09 k/uL Normal 0.00-0.30 [facility] Comment on above: Performed By: #### P ASHLEY #### [place] [address] [place] [address] Abs.Neutrophil (Seg) 10.61 k/uL High 1.50-8.10 [facility] Comment on above: Performed By: #### P ASHLEY #### [address] [place] [address] Basophils/100 WBC (Bld) 0 % Normal 0-2 [facility] Comment on above: Performed By: #### P ASHLEY #### [address] [place] [address] Eosinophils (Bld) [#/Vol] 0.16 10*3/uL Normal 0.00-0.44 [facility] Comment on above: Performed By: #### P ASHLEY #### [address] [place] [address] Eosinophils/100 WBC (Bld) 1 % Normal 1-4 [facility] Comment on above: Performed By: #### P ASHLEY #### [address] [address] Erythrocyte distribution width (RBC) [Ratio] 14.8 % High 11.8-14.4 [facility] Comment on above: Performed By: #### P ASHLEY #### [address] [address] Hematocrit (Bld) [Volume fraction] 36.1 % Low 36.3-47.1 [facility] Comment on above: Performed By: #### P ASHLEY #### [address] [address] Hemoglobin (Bld) [Mass/Vol] 11.6 g/dL Low 11.9-15.1 [facility] Comment on above: Performed By: #### P ASHLEY #### [address] [address] Immature granulocytes (Bld) [#/Vol] 1 % High 0 [facility] Comment on above: Performed By: #### P ASHLEY #### [address] [address] Lymphocytes (Bld) [#/Vol] 3.44 10*3/uL Normal 1.10-3.70 [facility] Comment on above: Performed By: #### P ASHLEY #### [address] [address] Lymphocytes/100 WBC (Bld) 23 % Low 24-43 [facility] Comment on above: Performed By: #### P ASHLEY #### [address] [address] MCH (RBC) [Entitic mass] 27.0 pg Normal 25.2-33.5 [facility] Comment on above: Performed By: #### P ASHLEY #### [address] [address] MCHC (RBC) [Mass/Vol] 32.1 g/dL Normal 28.4-34.8 [facility] Comment on above: Performed By: #### P ASHLEY #### [address] [address] MCV (RBC) [Entitic vol] 84.1 fL Normal 82.6-102.9 [facility] Comment on above: Performed By: #### P ASHLEY #### [address] [address] Monocytes (Bld) [#/Vol] 0.85 10*3/uL Normal 0.10-1.20 [facility] Comment on above: Performed By: #### P ASHLEY #### [address] [address] Monocytes/100 WBC (Bld) 6 % Normal 3-12 [facility] Comment on above: Performed By: #### P ASHLEY #### [address] [address] Neutrophil (Seg) 69 % High 36-65 [facility] Comment on above: Performed By: #### P ASHLEY #### [address] [address] NRBC Automated 0.0 per 100 WBC Normal 0.0 [facility] Comment on above: Performed By: #### P ASHLEY #### [address] [address] Platelet mean volume (Bld) [Entitic vol] 10.0 fL Normal 8.1-13.5 [facility] Comment on above: Performed By: #### P ASHLEY #### [address] [address] Platelets (Bld) [#/Vol] 333 10*3/uL Normal 138-453 [facility] Comment on above: Performed By: #### P ASHLEY #### [address] [address] RBC (Bld) [#/Vol] 4.29 10*6/uL Normal 3.95-5.11 [facility] Comment on above: Performed By: #### P ASHLEY #### [address] [address] WBC (Bld) [#/Vol] 15.2 10*3/uL High 3.5-11.3 [facility] Comment on above: Performed By: #### P ASHLEY #### [address] [address] Auto Diff Performed NOT REPORTED Normal [facility] Comment on above: Performed By: #### P ASLHEY #### [address] [address] Platelets (Bld) [#/Vol] NOT REPORTED Normal [facility] Comment on above: Performed By: #### P ASHLEY #### [address] [address] RBC morphology finding Nom (Bld) NOT REPORTED Normal [facility] Comment on above: Performed By: #### P ASHLEY #### [address] [address] WBC Morphology NOT REPORTED Normal [facility] Comment on above: Performed By: #### P ASHLEY #### [address] [address] Comp Metabolic Profon 2018 (cont.) Normal [facility] Comment on above: Result Comment: Aver age GFR for 30-39 years old: 107 mL/min/1.73sq m Chronic Kidney Disease: <60 mL/min/1.73sq m Kidney failure: <15 mL/min/1.73sq m eGFR calculated using average adult body mass. Additional eGFR calculator available at: http://www.[employer]/multiple_crcl_2011.htm Performed By: #### P ASHLEY #### [facility] [id number] [place] [address] Albumin [Mass/Vol] 3.5 g/dL Normal 3.5-5.2 [facility] Comment on above: Performed By: #### P ASHLEY #### [facility] [address] [place] [address] Albumin/Globulin [Mass ratio] 1.1 {ratio} Normal 1.0-2.5 [facility] Comment on above: Performed By: #### P ASHLEY #### [address] [address] Alkaline Phos 99 U/L Normal 35-104 [facility] Comment on above: Performed By: #### P ASHLEY #### [facility] [address] [place] [address] ALT [Catalytic activity/Vol] 22 U/L Normal 5-33 [facility] Comment on above: Performed By: #### P ASHLEY #### [address] [address] Anion gap [Moles/Vol] 12 mmol/L Normal 9-17 [facility] Comment on above: Performed By: #### P ASHLEY #### [facility] [address] [place] [address] AST [Catalytic activity/Vol] 18 U/L Normal <32 [facility] Comment on above: Performed By: #### P ASHLEY #### [facility] [address] [place] [address] Bilirubin Ql (U) 0.39 mg/dL Normal 0.3-1.2 [facility] Comment on above: Performed By: #### P ASHLEY #### [facility] [address] [place] [address] BUN/CRE Ratio 13 Normal 9-20 [facility] Comment on above: Performed By: #### P ASHLEY #### [address] [address] Calcium [Mass/Vol] 10.1 mg/dL Normal 8.6-10.4 [facility] Comment on above: Performed By: #### P ASHLEY #### [address] [address] Chloride [Moles/Vol] 102 mmol/L Normal 98-107 [facility] Comment on above: Performed By: #### P ASHLEY #### [address] [address] CO2 [Moles/Vol] 20 mmol/L Normal 20-31 [facility] Comment on above: Performed By: #### P ASHLEY #### [address] [address] Creatinine [Mass/Vol] 0.56 mg/dL Normal 0.50-0.90 [facility] Comment on above: Performed By: #### P ASHLEY #### [address] [address] GFR, Amer >60 Normal >60 [facility] Comment on above: Performed By: #### P ASHLEY #### [address] [address] GFR,non Amer >60 Normal >60 [facility] Comment on above: Performed By: #### P ASHLEY #### [address] [address] Glucose [Mass/Vol] 78 mg/dL Normal 70-99 [facility] Comment on above: Performed By: #### P ASHLEY #### [address] [address] Potassium [Moles/Vol] 4.2 mmol/L Normal 3.7-5.3 [facility] Comment on above: Performed By: #### P ASHLEY #### [employer] [id number] [place] [address] Protein [Mass/Vol] 6.6 g/dL Normal 6.4-8.3 [facility] Comment on above: Performed By: #### P ASHLEY #### [address] [address] Sodium [Moles/Vol] 134 mmol/L Low 135-144 [facility] Comment on above: Performed By: #### P ASHLEY #### [address] [id number] Staging: Normal [facility] Comment on above: Result Comment: Stag e 1: Some kidney damage normal GFR Stage 2: Mild kidney damage GFR 60-89 Stage 3: Moderate kidney damage GFR 30-59 Stage 4: Severe kidney damage GFR 15-29 Stage 5: Severe kidney damage GFR <15 ESRD - chronic treatment by dialysis or transplant Performed By: #### P ASHLEY #### [address] [address] Urea nitrogen [Mass/Vol] 7 mg/dL Normal 6-20 [facility] Comment on above: Performed By: #### P ASHLEY #### [email or web address] [id number] US OB 14 PLUS WEEKS SINGLE O [...] MD 06/12/18 Edited Result - FINAL Normal [facility] US OB GREATER THAN 14 WEEKS ADDITIONAL [...] Keaton Denton MD 06/12/18 Final result Normal [facility] US OB TRANSVAGINALon 019 US OB TRANSVAGINAL [...] Keaton Denton MD 06/12/18 Final result Normal [facility] Urinalysis w/ Microon 2018 ----- Normal [facility] Comment on above: Performed By: #### P ASHLEY #### [facility] [place] [address] Acetoacetic Acid,Ur 1+ Abnormal NEG [facility] Comment on above: Performed By: #### P ASHLEY #### [address] [address] Amorphous sediment LM Ql (Urine sed) 4+ Abnormal [facility] Comment on above: Performed By: #### P ASHLEY #### [address] [address] Bacteria LM.HPF (Urine sed) [#/Area] 1+ Abnormal [facility] Comment on above: Performed By: #### P ASHLEY #### [address] [address] Bilirubin, SemiQt,Ur SMALL Abnormal [facility] Comment on above: Performed By: #### P ASHLEY #### [address] [address] [facility]U) [facility] above: Performed By: #### P ASHLEY #### [address] [address] Epithelial cells LM.HPF (Urine sed) [#/Area] 0 TO 2 Normal 0-25 [facility] Comment on above: Performed By: #### P ASHLEY #### [address] [address] Glucose Ql (U) Negative Normal [facility] Comment on above: Performed By: #### P ASHLEY #### [address] [address] Hemoglobin, Ur Negative Normal [facility] Comment on above: Performed By: #### P ASHLEY #### [address] [address] Leukocyte esterase Test strip Ql (U) SMALL Abnormal [facility] Comment on above: Performed By: #### P ASHLEY #### [address] [address] Nitrite,Ur Negative Normal NEG [facility] Comment on above: Performed By: #### P ASHLEY #### [address] [address] pH (U) 5.5 [pH] Normal 5.0-9.0 [facility] Comment on above: Performed By: #### P ASHLEY #### [address] [address] Protein Ql (U) TRACE Abnormal NEG [facility] Comment on above: Performed By: #### P ASHLEY #### [address] [address] RBC (U) [#/Vol] 0 TO 2 Normal 0-2 [facility] Comment on above: Performed By: #### P ASHLEY #### [address] [address] Specific gravity (U) [Rel density] >1.030 High 1.010-1.020 [facility] Comment on above: Performed By: #### P ASHLEY #### [address] [address] Turbidity CLOUDY Abnormal CLEAR [facility] Comment on above: Performed By: #### P ASHLEY #### [address] [address] Urobilinogen,Ur Normal Normal NORM [facility] Comment on above: Performed By: #### P ASLHEY #### [address] [address] WBC (U) [#/Vol] 2 TO 5 Normal 0-5 [facility] Comment on above: Performed By: #### P ASHLEY #### [address] [address] Casts LM.LPF (Urine sed) [#/Area] NOT REPORTED Normal [facility] Comment on above: Performed By: #### P ASHLEY #### [address] [address] Comment NOT REPORTED Normal [facility] Comment on above: Performed By: #### P ASHLEY #### [address] [address] Crystals LM Nom (Urine sed) NOT REPORTED Normal NONE [facility] Comment on above: Performed By: #### P ASHLEY #### [address] [address] Epithelial, Renal NOT REPORTED Normal 0 [facility] Comment on above: Performed By: #### P ASHLEY #### [address] [address] Mucus Strands NOT REPORTED Normal NONE [facility] Comment on above: Performed By: #### P ASHLEY #### [address] [address] Other Observations NOT REPORTED Normal NREQ [facility] Comment on above: Performed By: #### P ASHLEY #### [address] [address] Trichomonas NOT REPORTED Normal NONE [facility] Comment on above: Performed By: #### P ASHLEY #### [address] [address] Yeast LM Ql (Urine sed) NOT REPORTED Normal NONE [facility] Comment on above: Performed By: #### P ASHLEY #### [address] [address] US OB 14 PLUS WEEKS SINGLE O [...] Quyen Walker MD 05/18/18 Final result Normal [facility] US OB GREATER THAN 14 WEEKS ADDITIONAL [...] Quyen Walker MD 05/18/18 Final result Normal [facility] US OB TRANSVAGINALon 03-28-2 019 OB TRANSVAGINAL [...] Quyen Walker MD 05/18/18 Final result Normal [facility] Urinalysis, Routineon 2018 Acetoacetic Acid,Ur Negative Normal [facility] Comment on above: Performed By: #### P ASHLEY #### [address] [address] Bilirubin, SemiQt,Ur Negative Normal [facility] Comment on above: Performed By: #### P ASHLEY #### [address] [address] Color (U) YELLOW Normal YEL [facility] Comment on above: Performed By: #### P ASHLEY #### [facility] [address] [place] [address] Glucose Ql (U) Negative Normal [facility] Comment on above: Performed By: #### P ASHLEY #### [facility] [address] [place] [address] Hemoglobin, Ur 3+ Abnormal [facility] Comment on above: Performed By: #### P ASHLEY #### [address] [address] Leukocyte esterase Test strip Ql (U) LARGE Abnormal [facility] Comment on above: Performed By: #### P ASHLEY #### [address] [address] Nitrite,Ur Negative Normal NEG [facility] Comment on above: Performed By: #### P ASHLEY #### [address] [address] pH (U) 6.0 [pH] Normal 5.0-9.0 [facility] Comment on above: Performed By: #### P ASHLEY #### [address] [address] Protein Ql (U) Negative Normal NEG [facility] Comment on above: Performed By: #### P ASHLEY #### [address] [address] Specific gravity (U) [Rel density] 1.025 High 1.010-1.020 [facility] Comment on above: Performed By: #### P ASHLEY #### [address] [address] Turbidity CLOUDY Abnormal CLEAR [facility] Comment on above: Performed By: #### P ASHLEY #### [address] [address] Urobilinogen,Ur Normal Normal NORM [facility] Comment on above: Performed By: #### P ASHLEY #### [address] [address] Comment NOT REPORTED Normal [facility] Comment on above: Performed By: #### P ASHLEY #### [address] [address] Urinalysis,Microon 9 ----- Normal [facility] Comment on above: Performed By: #### P ASHLEY #### [address] [address] Bacteria LM.HPF (Urine sed) [#/Area] 3+ Abnormal NONE [facility] Comment on above: Performed By: #### P ASHLEY #### [address] [address] Epithelial cells LM.HPF (Urine sed) [#/Area] 50 TO 100 Normal 0-25 [facility] Comment on above: Performed By: #### P ASHLEY #### [address] [address] RBC (U) [#/Vol] 5 TO 10 Normal 0-2 [facility] Comment on above: Performed By: #### P ASHLEY #### [address] [address] WBC (U) [#/Vol] 20 TO 50 Normal 0-5 [facility] Comment on above: Performed By: #### P ASHLEY #### [address] [address] Amorphous sediment LM Ql (Urine sed) NOT REPORTED Normal [facility] Comment on above: Performed By: #### P ASHLEY #### [address] [address] Casts LM.LPF (Urine sed) [#/Area] NOT REPORTED Normal [facility] Comment on above: Performed By: #### P ASHLEY #### [address] [address] Crystals LM Nom (Urine sed) NOT REPORTED Normal [facility] Comment on above: Performed By: #### P ASHLEY #### [address] [address] Epithelial, Renal NOT REPORTED Normal 0 [facility] Comment on above: Performed By: #### P ASHLEY #### [address] [address] Mucus Strands NOT REPORTED Normal [facility] Comment on above: Performed By: #### P ASHLEY #### [address] [address] Other Observations NOT REPORTED Normal NREQ [facility] Comment on above: Performed By: #### P ASHLEY #### [address] [address] Trichomonas NOT REPORTED Normal [facility] Comment on above: Performed By: #### P ASHLEY #### [address] [address] Yeast LM Ql (Urine sed) NOT REPORTED Normal NONE [facility] Comment on above: Performed By: #### P ASHLEY #### [address] [address] CBC with Diffon 04-07-2018 Abs. Basophil 0.06 k/uL Normal 0.00-0.20 [facility] Comment on above: Performed By: #### E 2 #### [address] [address] Abs.Imm.Granulocyte 0.18 k/uL Normal 0.00-0.30 [facility] Comment on above: Performed By: #### E 2 #### [address] [address] Abs.Neutrophil (Seg) 15.05 k/uL High 1.50-8.10 [facility] Comment on above: Performed By: #### E 2 #### [address] [address] Basophils/100 WBC (Bld) 0 % Normal 0-2 [facility] Comment on above: Performed By: #### E 2 #### [address] [address] Eosinophils (Bld) [#/Vol] 0.32 10*3/uL Normal 0.00-0.44 [facility] Comment on above: Performed By: #### E 2 #### [address] [address] Eosinophils/100 WBC (Bld) 2 % Normal 1-4 [facility] Comment on above: Performed By: #### E 2 #### [address] [address] Erythrocyte distribution width (RBC) [Ratio] 14.6 % High 11.8-14.4 [facility] Comment on above: Performed By: #### E 2 #### [address] [address] Hematocrit (Bld) [Volume fraction] 38.3 % Normal 36.3-47.1 [facility] Comment on above: Performed By: #### E 2 #### [address] [address] Hemoglobin (Bld) [Mass/Vol] 12.5 g/dL Normal 11.9-15.1 [facility] Comment on above: Performed By: #### E 2 #### [address] [address] Immature granulocytes (Bld) [#/Vol] 1 % High 0 [facility] Comment on above: Performed By: #### E 2 #### [address] [address] Lymphocytes (Bld) [#/Vol] 4.12 10*3/uL High 1.10-3.70 [facility] Comment on above: Performed By: #### E 2 #### [address] [address] Lymphocytes/100 WBC (Bld) 20 % Low 24-43 [facility] Comment on above: Performed By: #### E 2 #### [address] [address] MCH (RBC) [Entitic mass] 28.2 pg Normal 25.2-33.5 [facility] Comment on above: Performed By: #### E 2 #### [address] [address] MCHC (RBC) [Mass/Vol] 32.6 g/dL Normal 28.4-34.8 [facility] Comment on above: Performed By: #### E 2 #### [address] [address] MCV (RBC) [Entitic vol] 86.3 fL Normal 82.6-102.9 [facility] Comment on above: Performed By: #### E 2 #### [address] [address] Monocytes (Bld) [#/Vol] 0.91 10*3/uL Normal 0.10-1.20 [facility] Comment on above: Performed By: #### E 2 #### [address] [address] Monocytes/100 WBC (Bld) 4 % Normal 3-12 [facility] Comment on above: Performed By: #### E 2 #### [address] [address] Neutrophil (Seg) 73 % High 36-65 [facility] Comment on above: Performed By: #### E 2 #### [address] [address] NRBC Automated 0.0 per 100 WBC Normal 0.0 [facility] Comment on above: Performed By: #### E 2 #### [address] [address] Platelet mean volume (Bld) [Entitic vol] 9.7 fL Normal 8.1-13.5 [facility] Comment on above: Performed By: #### E 2 #### [address] [address] Platelets (Bld) [#/Vol] 310 10*3/uL Normal 138-453 [facility] Comment on above: Performed By: #### E 2 #### [address] [address] RBC (Bld) [#/Vol] 4.44 10*6/uL Normal 3.95-5.11 [facility] Comment on above: Performed By: #### E 2 #### [address] [address] WBC (Bld) [#/Vol] 20.6 10*3/uL High 3.5-11.3 [facility] Comment on above: Performed By: #### E 2 #### [address] [address] Auto Diff Performed NOT REPORTED Normal [facility] Comment on above: Performed By: #### E 2 #### [address] [address] Platelets (Bld) [#/Vol] NOT REPORTED Normal [facility] Comment on above: Performed By: #### E 2 #### [address] [address] RBC morphology finding Nom (Bld) NOT REPORTED Normal [facility] Comment on above: Performed By: #### E 2 #### [address] [address] WBC Morphology NOT REPORTED Normal [facility] Comment on above: Performed By: #### E 2 #### [address] [address] Comp Metabolic Profon 2018 Albumin [Mass/Vol] 3.7 g/dL Normal 3.5-5.2 [facility] Comment on above: Performed By: #### E 2 #### [address] [address] Albumin/Globulin [Mass ratio] 1.3 {ratio} Normal 1.0-2.5 [facility] Comment on above: Performed By: #### E 2 #### [facility] [place] [address] Alkaline Phos 61 U/L Normal 35-104 [facility] Comment on above: Performed By: #### E 2 #### [facility] [place] [address] ALT [Catalytic activity/Vol] 28 U/L Normal 5-33 [facility] Comment on above: Performed By: #### E 2 #### [facility] [place] [address] Anion gap [Moles/Vol] 15 mmol/L Normal 9-17 [facility] Comment on above: Performed By: #### E 2 #### [facility] [address] [place] [address] AST [Catalytic activity/Vol] 17 U/L Normal <32 [facility] Comment on above: Performed By: #### E 2 #### [facility] [place] [address] Bilirubin Ql (U) 0.27 mg/dL Low 0.3-1.2 [facility] Comment on above: Performed By: #### E 2 #### [facility] [address] [place] [address] BUN/CRE Ratio 17 Normal 9-20 [facility] Comment on above: Performed By: #### E 2 #### [facility] [place] [address] Calcium [Mass/Vol] 9.3 mg/dL Normal 8.6-10.4 [facility] Comment on above: Performed By: #### E 2 #### [facility] [place] [address] Chloride [Moles/Vol] 102 mmol/L Normal 98-107 [facility] Comment on above: Performed By: #### E 2 #### [facility] [place] [address] CO2 [Moles/Vol] 20 mmol/L Normal 20-31 [facility] Comment on above: Performed By: #### E 2 #### [address] [place] [address] Creatinine [Mass/Vol] 0.65 mg/dL Normal 0.50-0.90 [facility] Comment on above: Performed By: #### E 2 #### [facility] [address] [place] [address] GFR, Amer >60 Normal >60 [facility] Comment on above: Performed By: #### E 2 #### [facility] [address] [place] [address] GFR,non Amer >60 Normal >60 [facility] Comment on above: Performed By: #### E 2 #### [facility] [address] [place] [address] Glucose [Mass/Vol] 108 mg/dL High 70-99 [facility] Comment on above: Performed By: #### E 2 #### [address] [address] Potassium [Moles/Vol] 3.6 mmol/L Low 3.7-5.3 [facility] Comment on above: Performed By: #### E 2 #### [address] [address] Protein [Mass/Vol] 6.5 g/dL Normal 6.4-8.3 [facility] Comment on above: Performed By: #### E 2 #### [facility] [address] [place] [address] Sodium [Moles/Vol] 137 mmol/L Normal 135-144 [facility] Comment on above: Performed By: #### E 2 #### [address] [address] Urea nitrogen [Mass/Vol] 11 mg/dL Normal 6-20 [facility] Comment on above: Performed By: #### E 2 #### [facility] [facility] [place], [place] [id number] (cont.) Normal [facility] Comment on above: Result Comment: Aver age GFR for 30-39 years old: 107 mL/min/1.73sq m Chronic Kidney Disease: <60 mL/min/1.73sq m Kidney failure: <15 mL/min/1.73sq m eGFR calculated using average adult body mass. Additional eGFR calculator available at: http://www.[employer]/multiple_crcl_2012.htm Performed By: #### E 2 #### [facility] [address] [place] [address] [id number] Staging: Normal [facility] Comment on above: Result Comment: Stag e 1: Some kidney damage normal GFR Stage 2: Mild kidney damage GFR 60-89 Stage 3: Moderate kidney damage GFR 30-59 Stage 4: Severe kidney damage GFR 15-29 Stage 5: Severe kidney damage GFR <15 ESRD - chronic treatment by dialysis or transplant Performed By: #### E 2 #### [facility] [address] [place] [address] [phone] Troponinon 04-07-2018 Troponin I.cardiac [Mass/Vol] ng/mL Normal <0.03 [facility] Comment on above: Result Comment: Trop onin T results cannot be compared to Troponin-I results. Performed By: #### E 2 #### [facility] [address] [place] [address] [phone] Troponin I.cardiac [Mass/Vol] Normal [facility] Comment on above: Result Comment: Refe rence [...] diagnosis. Performed By: #### E 2 #### [employer] [address] [place] [address] Troponin I.cardiac [Mass/Vol] NOT REPORTED Normal 0-14 [facility] Comment on above: Performed By: #### E 2 #### [facility] [address] [place] [address] Urinalysis, Routineon 2018 Acetoacetic Acid,Ur TRACE Abnormal NEG [facility] Comment on above: Performed By: #### E 2 #### [employer] [address] [place] [address] Bilirubin, SemiQt,Ur Negative Normal NEG [facility] Comment on above: Performed By: #### E 2 #### [facility] [address] [place] [address] Color (U) YELLOW Normal YEL [facility] Comment on above: Performed By: #### E 2 #### [facility] [address] [place] [address] Glucose Ql (U) Negative Normal NEG [facility] [facility] Comment on above: Performed By: #### E 2 #### [facility] [address] [place] [address] Hemoglobin, Ur Negative Normal NEG [facility] Comment on above: Performed By: #### E 2 #### [facility] [address] [place] [address] Leukocyte esterase Test strip Ql (U) SMALL Abnormal NEG [facility] Comment on above: Performed By: #### E 2 #### [facility] [address] [place] [address] Nitrite,Ur Negative Normal [facility] Comment on above: Performed By: #### E 2 #### [facility] [address] [place] [address] pH (U) 6.0 [pH] Normal 5.0-9.0 [facility] Comment on above: Performed By: #### E 2 #### [address] [address] Protein Ql (U) Negative Normal NEG [facility] Comment on above: Performed By: #### E 2 #### [address] [address] Specific gravity (U) [Rel density] >1.030 High 1.010-1.020 [facility] Comment on above: Performed By: #### E 2 #### [address] [address] Turbidity CLEAR Normal CLEAR [facility] Comment on above: Performed By: #### E 2 #### [address] [address] Urobilinogen,Ur Normal Normal NORM [facility] Comment on above: Performed By: #### E 2 #### [address] [address] Comment NOT REPORTED Normal [facility] Comment on above: Performed By: #### E 2 #### [address] [address] Urinalysis,Microon 9 ----- Normal [facility] Comment on above: Performed By: #### P ASHLEY #### [address] [address] Epithelial cells LM.HPF (Urine sed) [#/Area] None Normal 0-25 [facility] Comment on above: Performed By: #### P ASHLEY #### [address] [address] RBC (U) [#/Vol] None Normal 0-2 [facility] Comment on above: Performed By: #### P ASHLEY #### [address] [address] WBC (U) [#/Vol] 0 TO 2 Normal 0-5 [facility] Comment on above: Performed By: #### P ASHLEY #### [address] [address] Amorphous sediment LM Ql (Urine sed) NOT REPORTED Normal [facility] Comment on above: Performed By: #### P ASHLEY #### [address] [address] Bacteria LM.HPF (Urine sed) [#/Area] NOT REPORTED Normal [facility] Comment on above: Performed By: #### P ASHLEY #### [address] [address] Casts LM.LPF (Urine sed) [#/Area] NOT REPORTED Normal [facility] Comment on above: Performed By: #### P ASHLEY #### [address] [address] Crystals LM Nom (Urine sed) NOT REPORTED Normal [facility] Comment on above: Performed By: #### P ASHLEY #### [address] [address] Epithelial, Renal NOT REPORTED Normal 0 [facility] Comment on above: Performed By: #### P ASHLEY #### [address] [address] Mucus Strands NOT REPORTED Normal [facility] Comment on above: Performed By: #### P ASHLEY #### [address] [address] Other Observations NOT REPORTED Normal NREQ [facility] Comment on above: Performed By: #### P ASHLEY #### [address] [address] Trichomonas NOT REPORTED Normal [facility] Comment on above: Performed By: #### P ASHLEY #### [address] [address] Yeast LM Ql (Urine sed) NOT REPORTED Normal NONE [facility] Comment on above: Performed By: #### P ASHLEY #### [address] [place], [place] [id number] XR CHEST (2 VW)on 04-07-2018 XR CHEST (2 VW) EXAMINATION: TWO VIEWS OF THE CHEST 04/07/2018 12:49 pm COMPARISON: 01/22/2013, 04/24/2017 HISTORY: ORDERING SYSTEM PROVIDED HISTORY: dyspnea, - 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 Trachea is midline. [...] Manuel Mcduffie MD 04/07/18 Final result Normal [facility] Chlamydia/GC DNA, Uron 02-03 Chlamydia Probe, Ur Negative Normal NEG [facility] Comment on above: Result Comment: CHLA MYDIA [...] target. Performed By: #### E 2 #### [facility] [address] [place] [address] Gonorrhea Probe, Ur Negative Normal NEG [facility] Comment on above: Result Comment: NEIS SERIA [...] target. Performed By: #### E 2 #### [address] [address] Cult,Urine,CCon 02-03-2018 Cult,Urine,CC Specimen Description .URINE Special Requests CCMS Culture NO SIGNIFICANT GROWTH Report Status FINAL 02/03/2018 [facility] Comment on above: Performed By: #### E 2 #### [address] [address] HIV Ag/Abon 02-03-2018 HIV Ag/Ab NONREACTIVE Normal [facility] Comment on above: Result Comment: No l aboratory evidence of HIV infection. If acute HIV infection is suspected, consider testing for HIV-1 RNA. Performed By: #### A HCV, HIVCMB #### [address] [address] #### GLYHGB #### [address] [place] [address] Hep C Abon 02-03-2018 Hep C Ab NONREACTIVE Normal [facility] Comment on above: Result Comment: [...] Performed By: #### A HCV, HIVCMB #### [address] [address] #### GLYHGB #### [address] [place] [address] Profileon 8 Hep B Surf Ag NONREACTIVE Normal [facility] Comment on above: Performed By: #### E 2 #### [address] [address] Rubella Ab, IgG 310.2 IU/mL Normal [facility] Comment on above: Result Comment: REFERENCE RANGE: <5.0 NON-REACTIVE (non-immune) 5.0 TO 9.9 EQUIVOCAL >=10.0 REACTIVE (immune) Performed By: #### E 2 #### [address] [address] T.pallidum Ab Screen NONREACTIVE Normal NR [facility] Comment on above: Result Comment: T. pallidum antibodies are not detected. There is no serological evidence of infection with T. pallidum (early primary syphilis cannot be excluded). Retest in 2-4 weeks if syphilis is clinically suspect. Performed By: #### E 2 #### [address] [address] Hemoglobin A1Con 02-02-2018 HbA1c (Bld) [Mass fraction] 111 mg/dL Normal [facility] Comment on above: Result Comment: The ADA and AACC recommend providing the estimated average glucose result to permit better patient understanding of their HBA1c result. Performed By: #### A HCV, HIVCMB #### [address] [address] #### GLYHGB #### [address] [place] [address] HbA1c (Bld) [Mass fraction] 5.5 % Normal 4.8-5.9 [facility] Comment on above: Performed By: #### A HCV, HIVCMB #### [address] [address] #### GLYHGB #### [address] [place] [address] Profileon 8 Abs. Basophil 0.07 k/uL Normal 0.00-0.20 [facility] Comment on above: Performed By: #### E 2 #### [address] [address] Abs.Imm.Granulocyte 0.05 k/uL Normal 0.00-0.30 [facility] Comment on above: Performed By: #### E 2 #### [address] [address] Abs.Neutrophil (Seg) 9.31 k/uL High 1.50-8.10 [facility] Comment on above: Performed By: #### E 2 #### [address] [address] Basophils/100 WBC (Bld) 1 % Normal 0-2 [facility] Comment on above: Performed By: #### E 2 #### [address] [address] Eosinophils (Bld) [#/Vol] 0.36 10*3/uL Normal 0.00-0.44 [facility] Comment on above: Performed By: #### E 2 #### [address] [address] Eosinophils/100 WBC (Bld) 3 % Normal 1-4 [facility] Comment on above: Performed By: #### E 2 #### [address] [address] Erythrocyte distribution width (RBC) [Ratio] 15.0 % High 11.8-14.4 [facility] Comment on above: Performed By: #### E 2 #### [address] [address] Hematocrit (Bld) [Volume fraction] 40.6 % Normal 36.3-47.1 [facility] Comment on above: Performed By: #### E 2 #### [address] [address] Hemoglobin (Bld) [Mass/Vol] 12.9 g/dL Normal 11.9-15.1 [facility] Comment on above: Performed By: #### E 2 #### [address] [address] Immature granulocytes (Bld) [#/Vol] 0 % Normal 0 [facility] Comment on above: Performed By: #### E 2 #### [address] [address] Lymphocytes (Bld) [#/Vol] 3.96 10*3/uL High 1.10-3.70 [facility] Comment on above: Performed By: #### E 2 #### [address] [address] Lymphocytes/100 WBC (Bld) 27 % Normal 24-43 [facility] Comment on above: Performed By: #### E 2 #### [address] [address] MCH (RBC) [Entitic mass] 27.8 pg Normal 25.2-33.5 [facility] Comment on above: Performed By: #### E 2 #### [address] [address] MCHC (RBC) [Mass/Vol] 31.8 g/dL Normal 28.4-34.8 [facility] Comment on above: Performed By: #### E 2 #### [address] [address] MCV (RBC) [Entitic vol] 87.5 fL Normal 82.6-102.9 [facility] Comment on above: Performed By: #### E 2 #### [address] [address] Monocytes (Bld) [#/Vol] 0.68 10*3/uL Normal 0.10-1.20 [facility] Comment on above: Performed By: #### E 2 #### [address] [address] Monocytes/100 WBC (Bld) 5 % Normal 3-12 [facility] Comment on above: Performed By: #### E 2 #### [address] [address] Neutrophil (Seg) 64 % Normal 36-65 [facility] Comment on above: Performed By: #### E 2 #### [address] [address] NRBC Automated 0.0 per 100 WBC Normal 0.0 [facility] Comment on above: Performed By: #### E 2 #### [address] [address] Platelet mean volume (Bld) [Entitic vol] 9.7 fL Normal 8.1-13.5 [facility] Comment on above: Performed By: #### E 2 #### [address] [address] Platelets (Bld) [#/Vol] 315 10*3/uL Normal 138-453 [facility] Comment on above: Performed By: #### E 2 #### [address] [address] RBC (Bld) [#/Vol] 4.64 10*6/uL Normal 3.95-5.11 [facility] Comment on above: Performed By: #### E 2 #### [address] [address] WBC (Bld) [#/Vol] 14.4 10*3/uL High 3.5-11.3 [facility] Comment on above: Performed By: #### E 2 #### [address] [address] Auto Diff Performed NOT REPORTED Normal [facility] Comment on above: Performed By: #### E 2 #### [address] [address] Platelets (Bld) [#/Vol] NOT REPORTED Normal [facility] Comment on above: Performed By: #### E 2 #### [facility] [address] [place] [address]652 RBC morphology finding Nom (Bld) NOT REPORTED Normal [facility] Comment on above: Performed By: #### E 2 #### [facility] [address] [place] [address] WBC Morphology NOT REPORTED Normal [facility] Comment on above: Performed By: #### E 2 #### [facility] [address] [place] [address] 31776 Type + Scrnon 02-02 Type + Scrn Negative Normal [facility] Comment on above: Performed By: #### E 2 #### [facility] [address] [place] [address] Toxicology Scree, Urineon Amphetamine(s),Ur Negative Normal NEG [facility] Comment on above: Performed By: #### E 2 #### [facility] [address] [place] [address] Barbiturate(s),Ur Negative Normal NEG [facility] Comment on above: Performed By: #### E 2 #### [facility] [address] [place] [address] Benzodiazepine(s) Negative Normal NEG [facility] Comment on above: Performed By: #### E 2 #### [facility] [address] [place] [address] Buprenorphrine, Ur Negative Normal NEG [facility] Comment on above: Performed By: #### E 2 #### [facility] [address] [place] [address] Cannabinoid(s),Ur Negative Normal NEG [facility] Comment on above: Performed By: #### E 2 #### [facility] [address] [place] [address] Cocaine Metabolite Negative Normal NEG [facility] Comment on above: Performed By: #### E 2 #### [facility] [address] [place] [address] Methadone Ql (U) Negative Normal NEG [facility] Comment on above: Performed By: #### E 2 #### [facility] [address] [place] [address] Methamphetamine, Ur Negative Normal NEG [facility] Comment on above: Performed By: #### E 2 #### [facility] [address] [place] [address] Opiate(s), Ur Negative Normal NEG [facility] Comment on above: Performed By: #### E 2 #### [address] [address] Oxycodone, Urine Negative Normal NEG [facility] Comment on above: Performed By: #### E 2 #### [address] [address] Phencyclidine, Ur Negative Normal NEG [facility] Comment on above: Performed By: #### E 2 #### [facility] [address] [place] [address] Propoxyphene,Urine Negative Normal NEG [facility] Comment on above: Performed By: #### E 2 #### [address] [address] Tricyclic antidepressants Screen Ql (U) Negative Normal NEG [facility] Comment on above: Result Comment: Drug screen results are to be used for medical purposes only. All positive results are unconfirmed. Testing for employment or legal uses should be sent to a reference laboratory for confirmation. Performed By: #### E 2 #### [address] [address] Interpretive Info NOT REPORTED Normal [facility] Comment on above: Performed By: #### E 2 #### [address] [address] MDMA, Urine NOT REPORTED Normal NEG [facility] Comment on above: Performed By: #### E 2 #### [address] [id number] HCG, Quant[place] 01-16-2018 HCG, Quant 3157 IU/L High <5 [facility] Comment on above: Result Comment: Non-preg premeno <=5 Postmeno <=8 Male <=3 If HCG results do not concur with clinical observations, additional testing to confirm result is recommended. This test is not labeled for use as a tumor marker. Performed By: #### B HCG #### [address] [place] [address] #### PROG #### [address] [address] Progesteroneon 01-16-2018 Progesterone 29.56 ng/mL Normal [facility] Comment on above: Result Comment: FEMALE (healthy): Follicular phase 0.06-0.89 Ovulation phase 0.12-12.00 Luteal phase 1.83-23.90 Postmenopausal <0.13 Performed By: #### B HCG #### [address] [place] [address] #### PROG #### [address] [address] HCG, [place] 01-11-2018 HCG, Quant 428 IU/L High <5 [facility] Comment on above: Result Comment: Non-preg premeno <=5 Postmeno <=8 Male <=3 If HCG results do not concur with clinical observations, additional testing to confirm result is recommended. This test is not labeled for use as a tumor marker. Performed By: #### B HCG #### [address] [place] [address] HCG, [place] 01-09-2018 HCG, Quant 187 IU/L High <5 [facility] Comment on above: Result Comment: Non-preg premeno <=5 Postmeno <=8 Male <=3 If HCG results do not concur with clinical observations, additional testing to confirm result is recommended. This test is not labeled for use as a tumor marker. Performed By: #### B HCG #### [address] [place] [address] Progesteroneon 01-03-2018 Progesterone 35.39 ng/mL Normal [facility] Comment on above: Result Comment: FEMALE (healthy): Follicular phase 0.06-0.89 Ovulation phase 0.12-12.00 Luteal phase 1.83-23.90 Postmenopausal <0.13 Performed By: #### P ASHLEY #### [address] [address] Estradiolon 12-17-2017 Estradiol 410 pg/mL High -[address] [place] [address] Comment on above: Result Comment: FEMALES: Normally menstruating Luteal phase 33-298 Follicular phase 27-156 Midcycle phase 48-314 Postmenopausal (untreated) 5-50 Performed By: #### E 2 #### [address] [address] Estradiolon 12-06-2017 Estradiol 99 pg/mL Normal [address] [place] [address] Comment on above: Result Comment: FEMALES: Normally menstruating Luteal phase 33-298 Follicular phase 27-156 Midcycle phase 48-314 Postmenopausal (untreated) 5-50 Performed By: #### E 2 #### [address] [address] Vital Signs Date Time Vital Sign Value Performing Clinician Facility 11-09-2023 14:29-0400 Body height 160 cm Brandon Juares DO Work Phone: [facility] 11-09-2023 14:29-0400 Body mass index (BMI) [Ratio] 41.81 kg/m2 Brandon Juares DO Work Phone: [facility] 11-09-2023 14:29-0400 Body weight 107.05 kg Brandon Juares DO Work Phone: [facility] 10-12-2023 15:02-0400 Body height 160 cm Brandon Juares DO Work Phone: [facility] 10-12-2023 15:02-0400 Body mass index (BMI) [Ratio] 41.98 kg/m2 Brandon Juares DO Work Phone: [facility] 10-12-2023 15:02-0400 Body weight 107.5 kg Brandon Juares DO Work Phone: [facility] 09-21-2023 15:08-0400 Blood Pressure Location Mohamad Mouchli [facility] 09-21-2023 15:08-0400 Diastolic blood pressure 76 mm[Hg] Mohamad Mouchli [facility] 09-21-2023 15:08-0400 Heart rate 74 /min Mohamad Mouchli [facility] 09-21-2023 15:08-0400 Respiratory rate 16 /min Mohamad Mouchli [facility] 09-21-2023 15:08-0400 Systolic blood pressure 118 mm[Hg] Mohamad Mouchli [facility] 09-05-2023 14:00-0400 Diastolic blood pressure 77 mm[Hg] Mohamad Mouchli [facility] 09-05-2023 14:00-0400 Heart rate 70 /min Mohamad Mouchli [facility] 09-05-2023 14:00-0400 Mean blood pressure 95 mm[Hg] Mohamad Mouchli [facility] 09-05-2023 14:00-0400 SaO2% (BldA) [Mass fraction] 96 % Mohamad Mouchli [facility] 09-05-2023 14:00-0400 Systolic blood pressure 131 mm[Hg] Mohamad Mouchli [facility] 09-05-2023 13:50-0400 Diastolic blood pressure 60 mm[Hg] Mohamad Mouchli [facility] 09-05-2023 13:50-0400 Heart rate 87 /min Mohamad Mouchli [facility] 09-05-2023 13:50-0400 Mean blood pressure 87 mm[Hg] Mohamad Mouchli [facility] 09-05-2023 13:50-0400 Respiratory rate 15 /min Mohamad Mouchli [facility] 09-05-2023 13:50-0400 SaO2% (BldA) [Mass fraction] 98 % Mohamad Mouchli [facility] 09-05-2023 13:50-0400 Systolic blood pressure 142 mm[Hg] Mohamad Mouchli [facility] 09-05-2023 13:45-0400 Diastolic blood pressure 73 mm[Hg] Mohamad Mouchli [facility] 09-05-2023 13:45-0400 Heart rate 73 /min Mohamad Mouchli [facility] 09-05-2023 13:45-0400 Mean blood pressure 91 mm[Hg] Mohamad Mouchli [facility] 09-05-2023 13:45-0400 Respiratory rate 18 /min Mohamad Mouchli [facility] 09-05-2023 13:45-0400 SaO2% (BldA) [Mass fraction] 98 % Mohamad Mouchli [facility] 09-05-2023 13:45-0400 Systolic blood pressure 126 mm[Hg] Mohamad Mouchli [facility] 09-05-2023 13:35-0400 Body temperature 97.88 [degF] Mohamad Mouchli [facility] 09-05-2023 13:25-0400 Respiratory rate 12 /min Mohamad Mouchli [facility] 09-05-2023 13:15-0400 Respiratory rate 12 /min Mohamad Mouchli [facility] 09-05-2023 13:05-0400 Respiratory rate 12 /min Mohamad Mouchli [facility] 09-05-2023 13:01-0400 Blood Pressure Location Mohamad Mouchli [facility] 09-05-2023 13:01-0400 Body temperature 98.06 [degF] Mohamad Mouchli [facility] 09-01-2023 13:37-0400 Blood Pressure Location Mohamad Mouchli [facility] 09-01-2023 13:37-0400 Diastolic blood pressure 86 mm[Hg] Mohamad Mouchli [facility] 09-01-2023 13:37-0400 Heart rate 82 /min Mohamad Mouchli [facility] 09-01-2023 13:37-0400 Respiratory rate 16 /min Mohamad Mouchli [facility] 09-01-2023 13:37-0400 Systolic blood pressure 128 mm[Hg] Mohamad Mouchli [facility] 08-15-2023 11:28-0400 Body temperature 98.42 [degF] Quyen Garcia [facility] 08-15-2023 11:28-0400 Diastolic blood pressure 72 mm[Hg] Quyen Garcia [facility] 08-15-2023 11:28-0400 Heart rate 69 /min Quyen Garcia [facility] 08-15-2023 11:28-0400 Mean blood pressure 86 mm[Hg] Quyen Garcia [facility] 08-15-2023 11:28-0400 Respiratory rate 16 /min Quyen Garcia [facility] 08-15-2023 11:28-0400 SaO2% (BldA) [Mass fraction] 98 % Quyen Garcia [facility] 08-15-2023 11:28-0400 Systolic blood pressure 113 mm[Hg] Quyen Garcia [facility] 08-05-2023 13:12-0400 Heart rate 67 /min Cleo Mayra [facility] 08-05-2023 13:12-0400 SaO2% (BldA) [Mass fraction] 98 % Cleo Mayra [facility] 08-05-2023 13:12-0400 Body temperature 98.06 [degF] Cleo Mayra [facility] 08-05-2023 13:12-0400 Diastolic blood pressure 74 mm[Hg] Cleo Mayra [facility] 08-05-2023 13:12-0400 Mean blood pressure 89 mm[Hg] Cleo Mayra [facility] 08-05-2023 13:12-0400 Systolic blood pressure 119 mm[Hg] Cleo Mayra [facility] 08-05-2023 13:11-0400 Respiratory rate 16 /min Cleo Mayra [facility] 08-05-2023 09:09-0400 Heart rate 80 /min Cleo Mayra [facility] 08-05-2023 09:09-0400 SaO2% (BldA) [Mass fraction] 99 % Cleo Mayra [facility] 08-05-2023 09:09-0400 Respiratory rate 16 /min Cleo Mayra [facility] 08-05-2023 09:08-0400 Blood Pressure Location Cleo Mayra [facility] 08-05-2023 09:08-0400 Diastolic blood pressure 72 mm[Hg] Cleo Mayra [facility] 08-05-2023 09:08-0400 Mean blood pressure 88 mm[Hg] Cleo Mayra [facility] 08-05-2023 09:08-0400 Systolic blood pressure 119 mm[Hg] Cleo Mayra [facility] 08-05-2023 09:08-0400 Body temperature 98.06 [degF] Cleo Mayra [facility] 08-03-2023 14:08-0400 Heart rate 67 /min [facility] 08-03-2023 14:08-0400 Respiratory rate 16 /min [facility] 08-03-2023 13:00-0400 Diastolic blood pressure 59 mm[Hg] [facility] 08-03-2023 13:00-0400 Heart rate 74 /min [facility] 08-03-2023 13:00-0400 Mean blood pressure 73 mm[Hg] [facility] 08-03-2023 13:00-0400 Systolic blood pressure 102 mm[Hg] [facility] 08-03-2023 12:19-0400 Diastolic blood pressure 82 mm[Hg] [facility] 08-03-2023 12:19-0400 Heart rate 77 /min [facility] 08-03-2023 12:19-0400 Mean blood pressure 104 mm[Hg] [facility] 08-03-2023 12:19-0400 Respiratory rate 13 /min [facility] 08-03-2023 12:19-0400 SaO2% (BldA) [Mass fraction] 100 % [facility] 08-03-2023 12:19-0400 Systolic blood pressure 148 mm[Hg] [facility] 08-03-2023 11:02-0400 Body temperature 98.6 [degF] [facility] 08-03-2023 11:02-0400 Diastolic blood pressure 73 mm[Hg] [facility] 08-03-2023 11:02-0400 Heart rate 82 /min [facility] 08-03-2023 11:02-0400 Respiratory rate 20 /min [facility] 08-03-2023 11:02-0400 Systolic blood pressure 132 mm[Hg] [facility] 02-08-2022 15:44-0500 Body temperature 98.7 [degF] ERAN Selby Work Phone: [facility] 02-08-2022 15:44-0500 Diastolic blood pressure 61 mm[Hg] ERAN Selby Work Phone: [facility] 02-08-2022 15:44-0500 Heart rate 84 /min CHOCOLATE D[employer]-C Abdullahi Cliff Work Phone: [facility] 02-08-2022 15:44-0500 Respiratory rate 22 /min CHOCOLATE DIP[employer]-C Abdullahi Cliff Work Phone: [facility] 02-08-2022 15:44-0500 SaO2% (BldA) [Mass fraction] 95 % [employer]OCOLATE DIPPER-C Abdullahi Cliff Work Phone: [facility] 02-08-2022 15:44-0500 Systolic blood pressure 131 mm[Hg] CHOCOLATE DIPPER-C Abdullahi Cliff Work Phone: [facility] 02-08-2022 15:42-0500 Body height 162.56 cm CHOCOLATE DIPPER-C Abdullahi Cliff Work Phone: [facility] 02-08-2022 15:42-0500 Body weight 101.5 kg CHOCOLATE DIPPER-C Abdullahi Cliff Work Phone: [facility] 12-28-2021 16:00-0500 Body temperature 98 [degF] CHOCOLATE DIPPER-C Abdullahi Cliff Work Phone: [facility] 12-28-2021 16:00-0500 Diastolic blood pressure 72 mm[Hg] CHOCOLATE DIPPER-C Abdullahi Cliff Work Phone: [facility] 12-28-2021 16:00-0500 Heart rate 99 /min CHOCOLATE DIP[employer]-C Abdullahi Cliff Work Phone: [facility] 12-28-2021 16:00-0500 Respiratory rate 18 /min CHOCOLATE DIPPER-C Abdullahi Cliff Work Phone: [facility] 12-28-2021 16:00-0500 SaO2% (BldA) [Mass fraction] 94 % CHOCOLATE DIPPER-C Abdullahi Cliff Work Phone: [facility] 12-28-2021 16:00-0500 Systolic blood pressure 110 mm[Hg] CHOCOLATE DIPPER-C Abdullahi Cliff Work Phone: [facility] 12-28-2021 13:15-0500 Inhaled oxygen flow rate 1 L/min CHOCOL[employer] D[employer]-C Abdullahi Selby Work Phone: [facility] 12-28-2021 04:17-0500 Body weight 103.8 kg CHOCOLATE DIPPER-C Abdullahi Selby Work Phone: [facility] 12-27-2021 18:10-0500 Diastolic blood pressure 72 mm[Hg] CHOCOLATE DIPPER-C Abdullahi Selby Work Phone: [facility] 12-27-2021 18:10-0500 Heart rate 104 /min CHOCOLATE DIPPER-C Abdullahi Selby Work Phone: [facility] 12-27-2021 18:10-0500 Inhaled oxygen flow rate 2 L/min CHOCOLATE DIP[employer]-C Abdullahi Selby Work Phone: [facility] 12-27-2021 18:10-0500 Respiratory rate 22 /min CHOCOLATE DIPPER-C Abdullahi Selby Work Phone: [facility] 12-27-2021 18:10-0500 SaO2% (BldA) [Mass fraction] 91 % CHOCOLATE DIPPER-C Abdullahi Selby Work Phone: [facility] 12-27-2021 18:10-0500 Systolic blood pressure 125 mm[Hg] CHOCOLATE DIPPER-C Abdullahi Selby Work Phone: [facility] 12-27-2021 14:32-0500 Body height 162.56 cm CHOCOLATE DIPPER-C Abdullahi Selby Work Phone: [facility] 12-27-2021 14:32-0500 Body temperature 97.9 [degF] CHOCOLATE DIPPER-C Abdullahi Selby Work Phone: [facility] 12-27-2021 14:32-0500 Body weight 104.7 kg CHOCOLATE DIPPER-C Abdullahi Selby Work Phone: [facility] 11-19-2021 13:25-0400 SaO2% (BldA) [Mass fraction] 93 % CHOCOLATE DIPPER-C Abdullahi Cliff Work Phone: [facility] 11-19-2021 11:45-0400 Inhaled oxygen flow rate 3.5 L/min [employer]OL[employer] D[employer]-C Abdullahi Cliff Work Phone: [facility] 11-19-2021 11:09-0400 Body temperature 98.2 [degF] CHOCOLATE DIPPER-C Abdullahi Cliff Work Phone: [facility] 11-19-2021 11:09-0400 Diastolic blood pressure 68 mm[Hg] CHOCOLATE DIPPER-C Abdullahi Cliff Work Phone: [facility] 11-19-2021 11:09-0400 Heart rate 78 /min CHOCOLATE DIPPER-C Abdullahi Cliff Work Phone: [facility] 11-19-2021 11:09-0400 Respiratory rate 24 /min CHOCOLATE DIPPER-C Abdullahi Cliff Work Phone: [facility] 11-19-2021 11:09-0400 Systolic blood pressure 120 mm[Hg] CHOCOLATE DIPPER-C Abdullahi Cliff Work Phone: [facility] 11-19-2021 03:26-0400 Body weight 106 kg CHOCOLATE DIPPER-C Abdullahi Cliff Work Phone: [facility] 11-18-2021 04:42-0400 Body height 162.56 cm CHOCOLATE DIPPER-C Abdullahi Cliff Work Phone: [facility] 11-18-2021 04:06-0400 Diastolic blood pressure 71 mm[Hg] CHOCOLATE DIPPER-C Abdullahi Cliff Work Phone: [facility] 11-18-2021 04:06-0400 Heart rate 88 /min CHOCOLATE DIPPER-C Abdullahi Cliff Work Phone: [facility] 11-18-2021 04:06-0400 Inhaled oxygen flow rate 2 L/min CHOCOLATE DIPPER-C Abdullahi Cliff Work Phone: [facility] 11-18-2021 04:06-0400 Respiratory rate 20 /min CHOCOLATE DIPPER-C Abdullahi Cliff Work Phone: [facility] 11-18-2021 04:06-0400 SaO2% (BldA) [Mass fraction] 98 % CHOCOLATE DIPPER-Jase Selby Work Phone: [facility] 11-18-2021 04:06-0400 Systolic blood pressure 153 mm[Hg] CHOCOLATE DIPPER-Jase Selby Work Phone: [facility] 11-18-2021 02:24-0400 Body height 162.56 cm CHOCOLATE DIPPERMelinda Selby Work Phone: [facility] 11-18-2021 02:24-0400 Body temperature 99 [degF] CHOCOLATE DIPPER-Jase Selby Work Phone: [facility] 11-18-2021 02:24-0400 Body weight 108 kg CHOCOLATE DIPPERMelinda Selby Work Phone: [facility] 11-11-2021 11:23-0400 Body height 162.6 cm [facility] 11-11-2021 11:23-0400 Body weight 99.79 kg [facility] 01-29-2021 16:45-0500 Body height 160.02 cm Brandon Perez Other [facility] [employer] Other 01-29-2021 16:45-0500 Body mass index (BMI) [Ratio] 50.53 kg/m2 Brandon Perez Other [email or web address] Other 01-29-2021 16:45-0500 Body weight 129.41 kg Brandon Perez Other [email or web address] Other 01-29-2021 16:45-0500 Diastolic blood pressure 72 mm[Hg] Brandon Perez Other [email or web address] Other 01-29-2021 16:45-0500 Respiratory rate 18 /min Brandon Perez Other [email or web address] Other 01-29-2021 16:45-0500 SaO2% (BldA) [Mass fraction] 97 % Brandon Perez Other [email or web address] Other 01-29-2021 16:45-0500 Systolic blood pressure 128 mm[Hg] Brandon Perez Other [email or web address] Other 12-16-2020 10:00-0400 Body height 160.02 cm Brandon Perez Other [email or web address] Other 12-16-2020 10:00-0400 Body mass index (BMI) [Ratio] 50.3 kg/m2 Brandon Perez Other [email or web address] Other 12-16-2020 10:00-0400 Body weight 128.82 kg Brandon Perez Other [email or web address] Other 12-16-2020 10:00-0400 Diastolic blood pressure 84 mm[Hg] Brandon Perez Other [email or web address] Other 12-16-2020 10:00-0400 Systolic blood pressure 124 mm[Hg] Brandon Perez Other [email or web address] Other 11-13-2020 14:30-0400 Body height 160.02 cm Brandon Perez Other [email or web address] Other 11-13-2020 14:30-0400 Body mass index (BMI) [Ratio] 49.77 kg/m2 Brandon Perez Other [email or web address] Other 11-13-2020 14:30-0400 Body weight 127.46 kg Brandon Perez Other [email or web address] Other 11-13-2020 14:30-0400 Diastolic blood pressure 84 mm[Hg] Brandon Perez Other [email or web address] Other 11-13-2020 14:30-0400 SaO2% (BldA) [Mass fraction] 98 % Brandon Perez Other [email or web address] Other 11-13-2020 14:30-0400 Systolic blood pressure 122 mm[Hg] Brandon Perez Other [email or web address] Other Encounters Encounter Date Encounter Type Care Provider Facility Start: 12-05-2023 End: 12-05-2023 ambulatory Cleo Hernandez Facility:[facility] Start: 11-09-2023 End: 11-09-2023 Postop follow up [...] 10-27-2023 End: 10-28-2023 Pre-admission assessment Quyen Garcia [facility] Start: 10-26-2023 End: 10-26-2023 ambulatory Quyen Garcia Facility:[facility] Start: 10-26-2023 End: 10-26-2023 Patient encounter procedure Quyen Garcia [facility] Start: 10-25-2023 End: 10-25-2023 Patient encounter procedure CHOCOLATE DIPPER-C Cleo Goldenab Work Phone: [facility] [place] Work Phone: Start: 10-25-2023 End: 10-25-2023 ambulatory CHOCOLATE DIPPER-C Cleo Hernandez Work Phone: [facility] Work Phone: Start: 10-12-2023 End: 10-12-2023 Postop [...] [facility] Start: 10-05-2023 End: 10-05-2023 ambulatory CHOCOLATE DIPPER-C Cleo Hernandez Work Phone: [facility] Work Phone: Start: 10-05-2023 End: 10-05-2023 Departed Referred [employer] D[employer]-C Cleo Mayra Work Phone: [facility] [place] Work Phone: Start: 09-26-2023 End: 09-26-2023 Patient encounter procedure CHOCOLATE DIPPER-C Cleo Mayra Work Phone: [facility]-Electrodiagnostic s Work Phone: Start: 09-26-2023 End: 09-26-2023 ambulatory CHOCOLATE DIPPER-C Cleo Hernandez Work Phone: [facility] Work Phone: Start: 09-21-2023 End: 09-21-2023 [facility]ulatory [facility] Start: 09-21-2023 End: 09-21-2023 Patient encounter procedure Stefan Mclean [facility] Start: 09-20-2023 End: 09-20-2023 ambulatory BRANDON JACKSONBety Not Available Start: 09-17-2023 Patient encounter status Griffin Juares DO Work Phone: [facility] Start: 09-05-2023 End: 09-05-2023 ambulatory Stefan Mclean Facility:[facility] Start: 09-05-2023 End: 09-05-2023 Patient encounter procedure Stefan Mclean [facility] Start: 09-01-2023 End: 09-01-2023 Lab Drop off José Antoniocara Tonylyndsey [facility] Start: 09-01-2023 End: 09-01-2023 ambulatory Stefan Mclean Facility:[facility] Start: 09-01-2023 End: 09-01-2023 Patient encounter procedure Stefan Mclean [facility] Start: 09-01-2023 End: 09-01-2023 ambulatory Stefan Mclean Facility:[facility] Start: 09-01-2023 End: 09-01-2023 Patient encounter procedure Stefan Mclean [facility] Start: 08-16-2023 ambulatory Stefan Mclean Facilit y:[facility] Start: 08-15-2023 End: 08-15-2023 ambulatory José Antonio Benitez Facility:[facility] Start: 08-15-2023 End: 08-15-2023 Patient encounter procedure Quyen Garcia [facility] Start: 08-12-2023 End: 08-12-2023 ambulatory José Antonio Benitez Facility:[facility] Start: 08-12-2023 End: 08-12-2023 Patient encounter procedure José Antonio Benitez [facility] Start: 08-05-2023 End: 11-03-2023 ambulatory DIRECTOR HEDIS Cleo L Mayra Facility:[facility] Start: 08-05-2023 End: 11-03-2023 Recurring Cleo L Mayra [facility] Start: 08-03-2023 End: 08-03-2023 Emergency department patient visit Elizabeth Moise [facility] Start: 08-01-2023 End: 08-01-2023 Lab Drop off Cleo L Mayra [facility] Start: 08-01-2023 End: 08-01-2023 ambulatory Cleo L Mayra Facility:[facility] Start: 04-26-2023 End: 04-27-2023 ambulatory ROLLY M MONY-NOSSEK Not Available Start: 03-29-2023 End: 03-29-2023 ambulatory Cleo L Mayra Facility:[facility] Start: 03-17-2023 End: 03-17-2023 ambulatory ROLLY M MONY-NOSSEK Not Available Start: 02-23-2023 End: 02-23-2023 ambulatory ABDULLAHI SELBY Not Available Start: 01-24-2023 End: 01-24-2023 ambulatory Cleo L Mayra Facility:[facility] Start: 10-18-2022 End: 10-18-2022 Lab Drop off Cleo L Mayra [facility] Start: 10-18-2022 End: 10-18-2022 ambulatory Cleo L Mayra Facility:[facility] Start: 10-07-2022 ambulatory Cleo Mayra Facility: [facility] Start: 06-28-2022 End: 06-28-2022 ambulatory KELLY RADER . Facility: Start: 02-08-2022 End: 02-08-2022 Emergency department patient visit CHOCOLATE DIPPER-C Abdullahi Selby Work Phone: [facility] Start: 12-27-2021 End: 12-28-2021 Evaluation and management of inpatient CHOCOLATE DIPPER-C Abdullahi Selby Work Phone: [facility] Start: 12-10-2021 End: 12-10-2021 [...] End: 11-19-2021 Evaluation and management of inpatient CHOCOLATE DIPPER-C Abdullahi Selby Work Phone: [facility] [place] [facility] Start: 11-18-2021 observation encounter CHOCOLATE DIPPER-C Brooklyn Selby Work Phone: [facility] Work Phone: Start: 11-11-2021 End: 11-11-2021 [facility] 1 Virtual Pre Anesthesia Comment on above: [...] 06-17-2021 End: 06-17-2021 ambulatory Rolly Carrera Other [email or web address] Other Start: 06-17-2021 Telephone encounter Rolly rebolledo [facility] Start: 02-24-2021 (Procedure) [place] Brandon Chris [facility] Start: 02-24-2021 End: 02-24-2021 ambulatory Brandon Perez Other [email or web address] Other Start: 01-29-2021 End: 01-29-2021 ambulatory Brandon Perez Other [email or web address] Other Start: 01-29-2021 Office outpatient vi sit 25 minutes Brandon Perez [facility] Start: 12-16-2020 Office outpatient vi sit 25 minutes Brandon Perez [facility] Start: 12-09-2020 (Procedure) [place] Brandon Chris [facility] Start: 11-13-2020 [facility] Start: 09-28-2018 End: 09-28-2018 Patient encounter procedure ARACELY ALANIZ [facility] Start: 09-25-2018 End: 09-28-2018 Patient encounter procedure JACKELYN Rebolledo [facility] Start: 08-02-2018 End: 08-03-2018 Evaluation and management of inpatient MUNCIE Hannah [facility] Start: 07-22-2018 End: 07-23-2018 Patient encounter procedure LETICIA E [facility] Start: 07-21-2018 End: 07-21-2018 Patient encounter procedure MUNCIE Hannah [facility] Start: 07-19-2018 End: 07-19-2018 Patient encounter procedure JACKELYN Rebolledo [facility] Start: 06-27-2018 End: 06-28-2018 Patient encounter procedure MUNCIE Hannah [facility] Start: 06-12-2018 End: 06-12-2018 Patient encounter procedure MUNCIE Hannah [facility] Start: 05-18-2018 End: 05-18-2018 [facility] Start: 04-07-2018 End: 04-07-2018 Emergency department patient visit JACKELYN L [facility] Start: 02-02-2018 End: 02-03-2018 Patient encounter procedure MUNCIE Hannah [facility] Start: 02-02-2018 End: 02-02-2018 Patient encounter procedure LETICIA E [facility] Start: 01-16-2018 End: 01-17-2018 Patient encounter procedure HANNAH R [facility] Start: 01-11-2018 End: 01-12-2018 Patient encounter procedure HANNAH Antonio [facility] Start: 01-09-2018 End: 01-10-2018 Patient encounter procedure HANNAH R [facility] Start: 01-02-2018 End: 01-03-2018 Patient encounter procedure HANNAH [facility] Start: 12-16-2017 End: 12-17-2017 Patient encounter procedure HANNAH [facility] Start: 12-06-2017 End: 12-07-2017 Patient encounter procedure [facility] Procedures Date Procedure Procedure Detail Performing Clinician Start: 09-05-2023 Colonoscopy Stefan Mclean Start: 09-05-2023 Esophagogastroduodenoscopy Kevinkaylan pope Start: 07-17-2022 H/O: surgery History of parotidectomy Brandon Juares DO Work Phone: Start: 02-08-2022 Plain chest X-ray [employer]ATE DIP[employer]-C Abdullahi Selby Work Phone: Start: 12-27-2021 Plain chest X-ray CHOCOLATE DIPPER-C Abdullahi Selby Work Phone: Start: 11-18-2021 Plain chest X-ray CHOCOLATE DIPPER-C Abdullahi Selby Work Phone: Start: 09-28-2018 BEDREST [...] RIN E Start: 08-02-2018 Comprehensive metabolic panel JCAKELYN RINE Start: 08-02-2018 Level iv surg pathology [...] fda spec home use JACKELYN RINE Start: 08-02-2018 MONITOR HEART TONES JACKELYN [...] Cleo Mayra SARS-CoV-2, Influenza & RSV (PCR) [employer]-C Abdullahi Selby Work Phone: SARS-CoV-2, Influenza & RSV (PCR) [employer]-C Abdullahi Selby Work Phone: SARS-CoV-2, Influenza & RSV (PCR) [employer]OLATE DIPPER-C Abdullahi Selby Work Phone: Plan of Treatment Date Care Activity Detail Author Start: 02-08-2024 End: 02-08-2024 Patient encounter procedure 02/08/2024 2:30 PM EST Office Visit [facility] [address] [place] [phone] Brandon Juares DO [address] [place] [id number] [facility] Start: 01-23-2024 End: 11-08-2024 25-hydroxyvitamin D3 [Mass/volume] in Serum or Plasma Vitamin D 25 hydroxy Total Lab Routine Status post partial thyroidectomy (CMS/HCC) Expected: 01/23/2024 (Approximate), Expires: 11/08/2024 [facility] Comment on above: Expected: 01/23/2024 (Approximate), Expires: 11/08/2024 Start: 01-23-2024 End: 11-08-2024 Calcium [Mass/volume] in Serum or Plasma Calcium Lab Routine Status post partial thyroidectomy (CMS/HCC) Expected: 01/23/2024 (Approximate), Expires: 11/08/2024 [facility] Comment on above: Expected: 01/23/2024 (Approximate), Expires: 11/08/2024 Start: 01-23-2024 End: 11-08-2024 Parathyrin.intact [Mass/volume] in Serum or Plasma PTH, intact Lab Routine Status post partial thyroidectomy (CMS/HCC) Expected: 01/23/2024 (Approximate), Expires: 11/08/2024 [facility] Comment on above: Expected: 01/23/2024 (Approximate), Expires: 11/08/2024 Start: 01-23-2024 End: 11-08-2024 Thyrotropin [Units/volume] in Serum or Plasma [facility] Work Phone: Comment on above: Expected: 01/23/2024 (Approximate), Expires: 11/08/2024 Start: 01-23-2024 End: 11-08-2024 Triiodothyronine (T3) [Mass/volume] in Serum or Plasma T3 Lab Routine Status post partial thyroidectomy (CMS/HCC) Expected: 01/23/2024 (Approximate), Expires: 11/08/2024 [facility] Comment on above: Expected: 01/23/2024 (Approximate), Expires: 11/08/2024 Start: 11-09-2023 End: 11-09-2023 Patient encounter procedure [facility] Comment on above: Arrived Start: 10-24-2023 End: 10-11-2024 25-hydroxyvitamin D3 [Mass/volume] in Serum or Plasma Vitamin D 25 hydroxy Total Lab Routine Thyroid mass (CMS/HCC) Expected: 10/24/2023 (Approximate), Expires: 10/11/2024 [facility] Comment on above: Expected: 10/24/2023 (Approximate), Expires: 10/11/2024 Start: 10-24-2023 End: 10-11-2024 Calcium [Mass/volume] in Serum or Plasma Calcium Lab Routine Thyroid mass ([facility]/HCC) Expected: 10/24/2023 (Approximate), Expires: 10/11/2024 [facility] Comment on above: Expected: 10/24/2023 (Approximate), Expires: 10/11/2024 Start: 10-24-2023 End: 10-11-2024 Parathyrin.intact [Mass/volume] in Serum or Plasma PTH, intact Lab Routine Thyroid mass ([facility]/HCC) Expected: 10/24/2023 (Approximate), Expires: 10/11/2024 [facility] Comment on above: Expected: 10/24/2023 (Approximate), Expires: 10/11/2024 Start: 10-24-2023 End: 10-11-2024 Thyrotropin [Units/volume] in Serum or Plasma [facility] Work Phone: Comment on above: Expected: 10/24/2023 (Approximate), Expires: 10/11/2024 Start: 10-24-2023 End: 10-11-2024 Triiodothyronine (T3) [Mass/volume] in Serum or Plasma T3 Lab Routine Thyroid mass ([facility]) Expected: 10/24/2023 (Approximate), Expires: 10/11/2024 [facility] Comment on above: Expected: 10/24/2023 (Approximate), Expires: 10/11/2024 Start: 10-23-2023 Influenza vaccination Influenza Vacc ine (#1) [facility] Start: 10-12-2023 End: 10-12-2023 Patient encounter procedure 10/12/2023 3:15 PM EDT Office Visit [facility] [address] [place] [phone] Brandon Juares, DO [address] [place] [address] Arrived [facility] Comment on above: Arrived Start: 12-28-2021 Blood chemistry [facility] Start: 12-28-2021 End: 12-28-2021 [facility] Start: 12-27-2021 Microbial culture of sputum [facility] Start: 12-27-2021 Hospital admission [facility] Start: 12-27-2021 [facility] Start: 11-18-2021 Hospital admission [facility] Start: 11-18-2021 Plain chest X-ray XR chest 1V portab le [facility] Start: 11-18-2021 XR Chest Single view [facility] Start: 10-22-2021 Influenza vaccination INFLUENZA (#1) [facility] Start: 02-21-2021 DEPRESSION ASSESSMENT DEPRESSION ASS ESSMENT [facility] Start: 05-28-2020 COVID-19 VACCINE (3 - Booster for Pfizer series) COVID-19 VACCINE (3 - Booster for Pfizer series) [facility] Start: 12-08-2019 Screening for malign ant neoplasm of cervix [facility] Start: 2014 HPV TESTING HPV TESTING [facility] Start: 2014 Screening for malign ant neoplasm of cervix HPV/Cotest [facility] Start: 2005 PAP TESTING PAP TESTING [facility] Start: 08-29-2003 Urine microalbumin profile DTAP,TDAP,TD (1 - Tdap) [facility] Start: 2002 ANNUAL PCP TEAM ELASTIC ATTACHER ZIGZAG YASEMIN DISEASE VISIT ANNUAL PCP TEAM CHRONIC DISEASE VISIT [facility] Start: 2002 HEPATITIS C SCREENING HEPATITIS C SC FRANCOISE [facility] Start: 2002 HIV SCREENING HIV SCREENING [facility] Start: 2002 SPIROMETRY SPIROMETRY [facility] Start: 1996 Adult depression screening assessment DEPRESSION SCREENING [facility] Start: 1990 PNEUMOCOCCAL (1 - PCV) PNEUMOCOCCAL (1 - PCV) [facility] Start: 02-28-1985 COVID-19 VACCINE (#1) COVID-19 VACCI NE (#1) [facility] Start: 1984 HEPATITIS B (1 of 3 - 3-dose series) HEPATITIS B (1 of 3 - 3-dose series) [facility] Patient Education Viral Syndrome (DC) [facility] Work Phone: Patient referral [facility] Work Phone: [facility] [place] [facility] Immunizations Immunization Date Immunization Notes Care Provider Mary leija 04-02-2020 COVID-19 mRNA, Comirnaty (Pfizer) CHOCOLATE DIPPER-C Abdullahi Selby Work Phone: [facility] 03-12-2020 COVID-19 mRNA, Comirnaty (Pfizer) CHOCOLATE DIPPER-Jase Selby Work Phone: [facility] Payers Date Payer Category Payer Self-pay [id number] 2023 Private Health Insurance MARGARET MCADAMS [id number] 2023-Present [address] [place] [id number] 2023 Private Health Insurance [id number] 2022 Unknown 2022 Unknown [id number] 2019 Medicaid [place] [employer] [id number] 2019-Present [phone] [address] [place] [address] Medicaid [id number] 2016 Unknown [id number] 1984 Unknown [id number] 2.16.840.1.128057.3.579.2.1 73 1984 Unknown [id number] 2.16.840.1.077862.3.579.2.1 73 1984 Unknown [id number] 2.16.840.1.063700.3.579.2.1 73 1984 Unknown [id number] 2.16.840.1.178076.3.579.2.1 73 1984 Unknown [id number] 2.16.840.1.760305.3.579.2.1 73 1984 Unknown [id number] 2.16.840.1.878463.3.579.2.1 73 1984 Unknown [id number] 2.16.840.1.943794.3.579.2.1 73 1984 Unknown [id number] 2.16.840.1.829902.3.579.2.1 73 1984 Unknown [id number] 2.16.840.1.285092.3.579.2.1 73 1984 Unknown [id number] 2.16.840.1.329026.3.579.2.1 73 1984 Unknown [id number] 2.16.840.1.681761.3.579.2.1 73 1984 Unknown [id number] 2.16.840.1.369036.3.579.2.1 73 1984 Unknown [id number] 2.16.840.1.040030.3.579.2.1 73 1984 Unknown [id number] 2.16.840.1.201787.3.579.2.1 73 1984 Unknown [id number] 2.16.840.1.199521.3.579.2.1 1984 Unknown [id number] 2.16.840.1.711661.3.579.2.1 73 1984 Unknown [id number] 2.16.840.1.501048.3.579.2.1 73 1984 Unknown [id number] 2.16.840.1.358508.3.579.2.1 73 1984 Unknown [id number] 2.16.840.1.382659.3.579.2.5 93 1984 Unknown [id number] 2.16.840.1.138891.3.579.2.7 27 1984 Unknown [id number] 2.16.840.1.968435.3.579.2.7 27 1984 Unknown [id number] 2.16.840.1.038687.3.579.2.7 1984 Unknown [id number] 2.16.840.1.737441.3.579.2.7 1984 Unknown [id number] 2.16.840.1.965538.3.579.2.7 1984 Unknown [id number] 2.16.840.1.787047.3.579.2.7 1984 Unknown [id number] 2.16.840.1.901907.3.579.2.7 1984 Unknown [id number] 2.16.840.1.773865.3.579.2.7 1984 Unknown [id number] 2.16.840.1.101738.3.579.2.7 1984 Unknown [id number] 2.16.840.1.571138.3.579.2.7 1984 Unknown [id number] 2.16.840.1.167781.3.579.2.7 1984 Unknown [id number] 2.16.840.1.974510.3.579.2.7 1984 Unknown [id number] 2.16.840.1.869945.3.579.2.7 1984 Unknown [id number] 2.16.840.1.535400.3.579.2.7 1984 Unknown [id number] 2.16.840.1.651534.3.579.2.7 1984 Unknown [id number] 2.16.840.1.712710.3.579.2.7 1984 Unknown [id number] 2.16.840.1.214516.3.579.2.7 1984 Unknown [id number] 2.16.840.1.352157.3.579.2.7 27 1984 Unknown [id number] 2.16.840.1.634528.3.579.2.7 27 1984 Unknown [id number] 2.16.840.1.794798.3.579.2.7 27 1984 Unknown [id number] 2.16.840.1.393963.3.579.2.1 259 1984 Unknown [id number] 2.16.840.1.148055.3.579.2.1 259 1984 Unknown [id number] 2.16.840.1.572330.3.579.2.1 259 1984 Unknown [id number] 2.16.840.1.133313.3.579.2.1 259 1984 Unknown [id number] 2.16.840.1.464585.3.579.2.1 259 1984 Unknown [id number] 2.16.840.1.482096.3.579.2.1 259 1984 Unknown [id number] 2.16.840.1.929945.3.579.2.1 259 1984 Unknown [id number] 2.16.840.1.044995.3.579.2.7 27 1959 Unknown [id number] 2.16.840.1.539313.19 Unknown [id number] Unknown [id number] 2.16.840.1.051439.3.579.2.5 31 Unknown [id number] 2.16.840.1.227763.3.579.2.5 31 Unknown [id number] 2.16.840.1.014473.3.579.2.5 31 Social History Date Type Detail Facility Unknown if ever smoked [email or web address] Other Start: 03-17-2023 End: 10-12-2023 Sex Assigned At [facility] Start: 10-02-2021 End: 07-17-2022 Tobacco smoking status NHIS Never smoked tobacco [facility] Start: 10-02-2021 End: 07-17-2022 Tobacco use and exposure Smokeless tobacco non-user [facility] Start: 10-02-2021 End: 12-10-2021 Alcohol intake Lifetime non-drinker (finding) [facility] Start: 1985 Sex Assigned At Female [facility] Start: 09-18-2021 End: 11-30-2021 Exposure to SARS-CoV-2 (event) Not sure [facility] Work Phone: Tobacco smoking status Never [facility] [place] Tobacco [facility] Comment on above: denies Tobacco smoking status No Smoking Status Entered [facility] Start: 10-12-2023 End: 11-09-2023 Alcoholic beverage intake Ex-drinker (finding) [facility] Start: 03-17-2023 End: 10-12-2023 History of Social function [facility] Start: 08-31-2022 Alcohol Comment 2 cans diet pepsi NO [facility] Start: 1985 Sex assigned at Not on file [facility] NEGATED: Highlighted rowStart: NINF History of tobacco use Passive smoker [facility] Medical Equipment Procedure Code Equipment Code Equipment Origin al Text Equipment Identifier Dates Pen Pinch 31G X 5 MM Start: 05-15-2020 Goals Date Patient Goal Desired Activity /State Functional Status Date Assessment Result Facility 09-21-2023 Functional Status N/A [facility] 09-05-2023 Functional Status N/A [facility] 09-01-2023 Functional Status N/A [facility] 08-03-2023 Functional Status N/A [facility] 12-28-2021 Functional status Patient at Baseline [facility] Work Phone: 11-18-2021 Functional status Patient at Baseline [facility] Work Phone: Mental Status Date Assessment Result Facility 12-28-2021 Cognitive function Cognitive Sta tus Patient at Baseline [facility] Work Phone: 11-18-2021 Cognitive function Cognitive Sta tus Patient at Baseline [facility] Work Phone: Clinical Notes 11-13-2020 to 11-09-2023 [...] for this visit: Status post partial thyroidectomy ([facility]) (Primary) Comments: I will see the patient back in 3 months with lab work including PTH calcium and vitamin-D Orders: - TSH; Future - T3; Future - T4; Future - PTH, intact; Future - Calcium; Future - Vitamin D 25 hydroxy Total; Future - TSH - T3 - T4 - PTH, intact - Calcium - Vitamin D 25 hydroxy Total Other hyperparathyroidism ([facility]) Comments: See above documented in this encounter [facility] 10-12-2023 History of Present illness Narrative [...] for 3 months. documented in this encounter [facility] 09-05-2023 Hospital Discharge instructions Patient Education 09/05/2023 13:52:58 Endoscopy, Care After Procedure [facility] ([facility]) Endoscopy Care After Procedure Please read the [...] blood. Document Released: 09/21/2004 Document Re-Released: 08/01/2006 [facility] Patient Information 2010 [employer]. 09/05/2023 13:52:53 Hemorrhoids, Qcfg-lx-Xvqj Hemorrhoids Hemorrhoids are swollen veins that may [...] 3 times a day. General instructions Take lyao-noz-mcszdzu and prescription medicines only as told by [...] provider. Document Revised: 08/19/2021 Document Reviewed: 08/19/2021 [employer] Patient Education 2022 [employer]. 09/05/2023 13:52:50 Colonoscopy, Care After Surgery Salam [...] Care 09/01/2023 14:18:59 With:Vinay INGRAM, TA Baker, [facility] Address: When: Unknown Comments:Call for any problems. The office will reach out in about one week from procedure date. [facility] 09-05-2023 Note Progress Note-Physic ez Patient: MORRO MALONEY Age: 38 years Sex: Female : 1985 Associated Diagnoses: None Author: Arden Arambula Jr., DO Postoperative Information Postoperative disposition: Postoperative disposition: Home. Optimetrix number: Optimetrix number [id number]. Anesthetic utilized: General. Physical Examination Vital Signs [...] Ambulatory Surgery Unit, and To home ). [facility] Comment on above: Result Comment: Elec [...] Author:Coy segura Jr. Arden BURROWS Date:09/05/23 Plan [place] Society of Anesthesiologists (ASA) physical status classification: Class II. Anesthetic Preoperative Plan: Anesthesia General. Future Appointments Appointment Date:09/22/2023 10:15:00 AM Scheduled Provider:Stefan Mclean MD Location:[facility] Appointment Type:[facility] Follow Up Future Scheduled Tests Laboratory* CBC w/ Auto Diff 10/10/23 * CBC w/ Auto Diff 08/08/23 * CBC w/ Auto Diff 08/22/23 * Comprehensive Metabolic Panel 10/10/23 * Ferritin 10/10/23 * Folate Level 10/10/23 * Iron Level 10/10/23 * Iron Percent Saturation 10/10/23 * Transferrin 10/10/23 [facility]07-15-2024 NotePatient Education - Text Endoscopy Care After Procedure Please read the instructions outlined below and refer to this sheet in the next few weeks. These discharge instructions provide you with general information [facility] Your doctor may also give you specific [...] Document Re-Released: 08/01/2006 [employer]Care? Patient Information ?2009 [employer]. Colonoscopy Care After Surgery Please read the instructions outlined below and refer to this sheet in the next few weeks. These discharge instructions provide you with general information on [facility] Your doctor may also give you specific [...] around the opening o (more content not included)...[facility]07-15-2024 NoteColonoscopy Procedure Report Patient: MORRO MALONEY Age: 38 years Sex: Female : 1985 Associated Diagnoses: None Author: Stefan Mclean MD Pre-Procedure Procedure Date 09/05/2023 13:32:00 . Procedure Type: Colonoscopy. Procedure provider Performed by Stefan Mclean MD. Current history and physical Documented on chart. Appendectomy (132570422). Gastric sleeve (2404412954). Cholecystectomy (14246838). delivery (5846075493). Parotidectomy (398282018).. Past Medical History No active or resolved past medical history items have been selected or recorded.. Family History Ulcerative colitis Father Grandparent . Procedure History Appendectomy (344973741). Gastric sleeve (7397597893). Cholecystectomy (00176508). delivery (9638546173). Parotidectomy (758679712).. Colorectal neoplasm risk assessment Average risk. Informed [...] q4hr for wheezing, 18 gram, Refill(s) 5, [facility]/pharmacy #[id number], 161, cm, 10/18/22 14:05:00 EDT, Height/Length Dosing, 105.6, kg, 10/18/22 13:58:00 EDT, Weight Dosing folic acid 1 mg Tab: 1 mg = 1 tab(s), Oral, Daily, # 90 tab(s), Refills(s) 4, Pharmacy: [facility]/pharmacy #[id number], 161, cm, 08/15/23 11:32:00 EDT, Height/Length [...] benefit from capsule endoscopy to assess for anemiaOhiohealth Pickerington Methodist HospitalComment on above:Other Comment: Missing Attachment - attachment storage system not supported [id number] Can be viewed in source system Missing Attachment - attachment storage system not supported [id number] Can be viewed in source systemMissing Attachment - attachment storage system not supported [id number] Can be viewed in source systemMissing Attachment - attachment storage system not supported [id number] Can be viewed in source [id number] NoteProgress Note-Physician Patient: MORRO MALONEY Age: 38 [...] Daily, # 90 tab(s), Refills(s) 4, Pharmacy: [facility]/pharmacy #[id number], 161, cm, 08/15/23 11:32:00 EDT, Height/Length [...] list: All Problems Asthma / SNOMED CT 790332660 / Confirmed Bloating / SNOMED CT 682913854 / Confirmed Cyst of thyroid / SNOMED CT 842748482 / Confirmed Difficulty swallowing / SNOMED CT 21347527 / Confirmed Elevated creatine kinase / SNOMED CT 1198887011 / Confirmed Elevated glucose / SNOMED CT 9513955364 / Confirmed Elevated WBCs / SNOMED CT 352503669 / Confirmed Enlarged thyroid gland / SNOMED CT 3567785 / Confirmed Fatigue / SNOMED CT 386191771 / Confirmed Iron deficiency anemia / SNOMED CT 607041273 / Confirmed Low back pain / SNOMED CT 711696442 / Confirmed Shortness of breath / SNOMED CT 380974193 / Confirmed Spondylosis / SNOMED CT 18481717 / Confirmed Thyroid nodule / SNOMED CT 470611688 / Confirmed Weight gain / SNOMED CT 71278280 / Confirmed Weight loss / SNOMED CT 174381427 / Confirmed Wellness examination / SNOMED CT 921011293 / Confirmed Histories Past Medical History: No active or resolved past medical history items have been selected or recorded. Procedure history: Appendectomy (422109049). Gastric sleeve (1037880747). Cholecystectomy (86552494). delivery (7844505806). Parotidectomy (605982862). Social History Social & Psychosocial Habits Alcohol [...] Respirations are non-labored. Cardiovascular: Regular rhythm. Plan [place] Society of Anesthesiologists (ASA) physical status classification: Class II. Anesthetic Preoperative Plan: Anesthesia General.[facility] Comment on above:Result Comment: Electronically Signed By: Arden Arambula Jr., DO.ariel\Date and Time Signed: 09/05/23 13:01 [id number] Hospital Discharge instructions Follow Up Care 08/09/2023 09:01:05 With:Jose MAY, JANES Finn Address: [facility] [address] [place] [phone] When: Unknown Comments:refer to GI to consider endoscopy for iron deficiency anemia.- if none in [place], [facility] acid 1mg daily- send 90 day supply with 4 refills to [facility], cmp, iron studies, folate in 8wksfollow-up in 8wks with CHOCOLATE DIPPER [facility]06-17-2024 Evaluation + Plan note Future Scheduled Tests Laboratory* CBC w/ Auto Diff 10/10/23 * CBC w/ Auto Diff 08/08/23 * CBC w/ Auto Diff 08/22/23 * CBC w/ Auto Diff 08/29/23 * Comprehensive Metabolic Panel 10/10/23 * Ferritin 10/10/23 * Folate Level 10/10/23 * Iron Level 10/10/23 * Iron Percent Saturation 10/10/23 * Transferrin 10/10/23 [facility]06-17-2024 Evaluation + Plan note Future Scheduled Tests Laboratory* CBC w/ Auto Diff 10/10/23 * CBC w/ Auto Diff 08/08/23 * CBC w/ Auto Diff 08/22/23 * Comprehensive Metabolic Panel 10/10/23 * Ferritin 10/10/23 * Folate Level 10/10/23 * Iron Level 10/10/23 * Iron Percent Saturation 10/10/23 * Transferrin 10/10/23 [facility] 06-17-2024 Evaluation + Plan note Future Scheduled Tests Laboratory* CBC w/ Auto Diff 08/08/23 * CBC w/ Auto Diff 08/22/23 [facility] 06-12-2024 Hospital Discharge instructions Patient Education 08/03/2023 [...] supplement. Medicines to make heavy menstrual flow echo vascular tech. Surgery or additional testing procedures to determine the cause of your anemia. You may need repeat blood tests to determine whether treatment is working. If the treatment does not seem to be working, you may need more tests. Follow these instructions at home: Medicines Take vtpx-ras-cllxxww and prescription medicines only as told by [...] to keep your urine pale yellow. Take rkhz-ozz-xthubhb or prescription medicines. Eat foods that are [...] the cause of your iron deficiency. Take sokl-hgc-czhqxbs and prescription medicines only as told by [...] provider. Document Revised: 03/17/2022 Document Reviewed: 03/17/2022 [employer] Patient Education 2022 [employer] 08/03/2023 14:14:52 Shortness of Breath, Adult [...] to any changes in your symptoms. Take xdnu-kpr-unslphy and prescription medicines only as told by [...] provider. Document Revised: 09/26/2021 Document Reviewed: 09/26/2021 [employer] Patient Education 2022 [employer]. 08/03/2023 14:14:52 Anemia Anemia Anemia is a [...] spleen. Follow these instructions at home: Take zswu-lsd-niefqvl and prescription medicines only as told by [...] provider. Document Revised: 05/03/2022 Document Reviewed: 05/03/2022 [employer] Patient Education 2022 [employer] Follow Up Care 08/03/2023 10:47:32 With:José Antonio Benitez Address: [facility] [address] [place] [address]- When:08/06/2023 13:33:53 Comments:Make sure to follow-up with as discussed. Return to the emergency room if your symptoms get worse or any new symptoms. With:Cleo Hernandez Address:Unknown When:Within 3 Day(s) [facility]06-12-2024 Evaluation + Plan noteExtracted from: Title:ED Note [...] Diagnostic Tests Pending * Path. Review 08/03/23 [facility]2023 Evaluation + Plan note Diagnostic Tests Pending * T3 Free 10/18/22 [facility]11-06-2022 History and physical note Author Nan Brand [facility] December 27, 2021 6:03pm Note Date/Time December 27, 2021 5 :46pm [facility] [address] [place] [address] Hospitalist H&P Signed Patient: Morro Maloney MR#: [id number] : 1985 Acct:[id number] Age/Sex: 36 / F Adm Date: 2 Loc: ER Room: Type: [facility] ER Attending Dr: Copies to: MYKEL HawkinsC [...] % (Auto) 23.6 % (.) 12/27/21 14:42 [place] % (Auto) 5.7 % (.) 12/27/21 14:42 Eos % (Auto) 1.9 % (.) 12/27/21 14:42 Baso % (Auto) 0.8 % (.) 12/27/21 14:42 Neut # (Auto) 8.6 x10E3/uL (1.8-7.7) H 12/27/21 14:42 Lymph # (Auto) 3.0 x10E3/uL (1.00-4.8) 12/27/21 14:42 [place] # (Auto) 0.7 x10E3/uL (0.0-0.8) 12/27/21 14:42 [...] <Electronically signed by Nan Brand MD> 12/27/21 5662 [facility] Work Phone: 1(667) 455-696810-20-2022 History of Present illness Narrative* Meenakshi Obrien MD - 12/10/2021 11:05 AM EDT ASSESSMENT/PLAN: 1. Monocular esotropia, left eye - ICD9: 378.01, ICD10: H50.012 (primary diagnosis) 2. Diplopia - ICD9: 368.2, ICD10: H53.2 - acute onset left esotropia with diplopia for 6 months - worked up with MRI brain that was normal - POW#1 s/p [facility] - great alignment - rare diplopia. Not [...] 10, 2021 11:05 AM documented in [facility] encounter[facility] Miscellaneous Notes* Telephone Encounter - Enid Tafoya - 11/27/2021 10:43 AM EDT Spoke to patient; relayed message below. Meenakshi Obrien I just heard from the head anesthesiologist that we can proceed with her surgery on Tuesday. Thanks! * Telephone Encounter - Enid Tafoya - 11/27/2021 9:49 AM EDT Morro Maloney Sung [id number] 11/26/21 Fv 11/30/21 Sx Patient is calling [...] eyes - Proceed with strabismus surgery - [facility]. Consent obtained. - recent asthma exacerbation. Will check with anesthesia. Follow-up in: Surgery documented in this encounterUniversity [facility] History of Present illness Narrative* Meenakshi Obrien MD - 11/26/2021 9:16 AM EDT ASSESSMENT/PLAN: [...] eyes - Proceed with strabismus surgery - [facility]. Consent obtained. - recent asthma exacerbation. Will [...] 26, 2021 9:16 AM documented in this encounterUniversity [facility]als [facility]09-29-2022 Progress note Author Jp Barba [facility] November 19, 2021 10:22pm Note Date/Time November 19, 2021 10:00am [facility] [address] [place] [address] Hospitalist Progress Note Signed Patient: Morro Maloney MR#: [id number] : 1985 Acct:[id number] Age/Sex: 36 / F Adm Date: 2 Loc: 3T Room: [address] [place] [address] Type: DIS IN Attending Dr: Jp Barba [...] <Electronically signed by Jp Barba DO> 11/19/212221 [facility] Work Phone: 1(590) 915-930809-28-2022 Progress note Author Jp Barba [facility] November 18, 2021 1:57pm Note Date/Time November 18, 2021 1:50pm [facility] [address] [place] [address] Hospitalist Progress Note Signed Patient: Morro Maloney MR#: [id number] : 1985 Acct:[id number] Age/Sex: 36 / F Adm Date: 2 Loc: Room: [address] [place] [address] Type: ADM IN Attending Dr: Jp Barba DO Copies [...] <Electronically signed by Jp Barba DO> 11/18/21 4427 [facility] Work Phone: 1(427) 167-769309-28-2022 History and physical note Author Andres Espana [facility] November 18, 2021 4:53am Note Date/Time November 18, 2021 4:53am [facility] [address] [place] [address] Hospitalist H&P Signed Patient: Morro Maloney MR#: [id number] : 1985 Acct:[id number] Age/Sex: 36 / F Adm Date: 2 Loc: Room: [address] [place] [address] Type: ADM INOo Attending Dr: Andres Mcgee MD Copies to: MD Abdullahi Vallejo CHOCOLATE DIPPER-C~ HPI DATE OF EXAMINATION: 11/18/21 CHIEF COMPLAINT: [...] % (Auto) 16.7 % (.) 11/18/21 02:42 [place] % (Auto) 5.6 % (.) 11/18/21 02:42 Eos % (Auto) 3.1 % (.) 11/18/21 02:42 Baso % (Auto) 0.8 % (.) 11/18/21 02:42 Neut # (Auto) 8.9 x10E3/uL (1.8-7.7) H 11/18/21 02:42 Lymph # (Auto) 2.0 x10E3/uL (1.00-4.8) 11/18/21 02:42 [place] # (Auto) 0.7 x10E3/uL (0.0-0.8) 11/18/21 02:42 [...] <Electronically signed by Andres Mcgee MD> 11/18/21 0450 [facility] Work Phone: 1(742) 700-985909-21-2022 Instructions* Patient Instructions* Homa Mack PA-C - 11/11/2021 11:50 AM EDT PATIENT PREOPERATIVE INSTRUCTIONS Self has scheduled you for your procedure at this surgery center: [facility]: [phone] --[address] [facility], [place] [address]. Please read below carefully for your personalized [...] Procedures: - YOU MUST HAVE A RESPONSIBLE AUTOMATION OPERATOR TAKE YOU HOME. A AUDITOR/QUALITY OR CARDIOVASCULAR DISEASE SPECIALIST CANNOT BE MADE A RESPONSIBLE AUTOMATION OPERATOR. - We recommend that a responsible person [...] Advance Directive, please fax a copy to [phone] or email to for it to be [...] day. Homa Mack PA-C documented in this encounterUniversity [facility]als [facility]09-21-2022 History and physical note * Homa Mack PA-C - 11/11/2021 11:20 AM EDT PREANESTHESIA CONSULT CLINIC TELEHEALTH VISIT Patient has been identified by name and date of : Yes This is a virtual visit using [employer] video visit. It require patient-provider interaction for [...] 06/2021 Neuro: No history of TIA's, stroke, PLANT PHYSIOLOGIST tumor, impaired sensorium, hemiplegia, paraplegia or quadraplegia. No neurological symptoms or problems. Respiratory: No current cough or dyspnea, or pneumonia in the past 6 weeks.+asthma- last used rescue inhaler 1 week ago +PATRICE- mild per patient and did not require CPAP Cardiovascular: No history of HTN requiring medication, no history of angina, CHF, AK, cardiac surgery or stents. Denies rest pain, gangrene or revascularization/amputation for PVD. No history of cardiovascular symptoms or problems. +hyperlipidemia GI: No history of esophageal varices, recent ascites, or ETOH greater than 2 drinks per day.+h/o GERD mostly with +fatty liver +sleeve gastrectomy 06/2021 : No history of dysuria, frequency or incontinence,, stones or chronic kidney disease ERCO MACHINE OPERATOR: Negative for abnormal vaginal bleeding, abnormal vaginal [...] change was found Confirmed by HANNAH PEREZ ([id number]) on 04/10/2018 Impression/Recommendations ASSESSMENT: Hyperlipidemia Assessment: not [...] device. I spent more than 21-40 minutes jdex-dj-rgew with the patient and over half the time was devoted tocounseling and/or coordination of care. This is a virtual visit. It required patient-provider interaction for the medical decision making as documented above. SIGNATURE: Homa Mack PA-C PATIENT NAME: Morro Maloney DATE: November 11, 2021 TIME: 11:10 AM PAGER/CONTACT #: documented in this encounterUniversity Hospitals Geneva Medical Center08-15-2022 Miscellaneous Notes* Telephone Encounter - Sajan Dodd - 10/05/2021 3:08 PM EDT Spoke with pt and scheduled Strabismus surgery on 11/30/21. Pt will schedule PACC with her PCP. Blaze Geronimo documented in this encounterUniversity Hospitals Geneva Medical Center08-12-2022 Instructions* Patient Instructions* Meenakshi Obrien MD - 10/02/2021 2:44 PM EDT Information for surgery with Dr. Obrien Surgery Scheduling [place] - Tuesday of each month. Adults and children 1 year old and older. No major medical comorbidities (including sleep apnea, obesity, and pacemaker). [facility] - Second (PM start), Fourth (AM start), and (AM start) Tuesday of each month. Surgery coordinator for [facility] - Allegra Hearn [phone]. An alternative number is [phone]. Surgery coordinator at [place] - Blaze Geronimo [phone]. Adults have to get prior authorization from [...] If their physician is outside of the [facility] system, then please bring a printed copy of their history and physical with on the day of their surgery. Schedule pre-anesthesia testing appointment. Call [phone]. Pre-op measurements. Sometimes we do a pre-op [...] prior to surgery, you can send a [email or web address] message or you can call Dr. Obrien s office at [phone]. Children get sick a lot! If your [...] home/pick them up from school, etc. Location: [place] - Surgery center is on 2nd floor [address] - Surgery pre-op waiting areas is 3 [...] questions or to examine the patient at [facility], even at night and on the weekends. Dr. Obrien s office number is [phone]. documented in this encounterUniversity Hospitals Geneva Medical Center08-12-2022 History of Present illness Narrative* [...] 02, 2021 2:44 PM documented in this encounterUniversity Hospitals Geneva Medical Center12-09-2021 Evaluation note* Encounter Date Diagnosis [...] - G89.29) Continue with current treatment plan [email or web address] Other 10-26-2021 Evaluation note* Encounter Date Diagnosis [...] - G89.29) Continue with current treatment plan [email or web address] Other 09-23-2021 Evaluation note* Encounter Date Diagnosis [...] - G89.29) Continue with current treatment plan [email or web address] Other Discharge summary Author Jp Barba [facility] November 19, 2021 10:28pm Note Date/Time November 19, 2021 10:28pm 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 [address] [place] [address] Discharge Summary Signed Patient: Morro Maloney MR#: [id number] : 1985 Acct:[id number] Age/Sex: 36 / F Adm Date: 2 Loc: Room: [address] [place] [address]: Hema Miramontes MD Copies to: MD Abdullahi Lee CHOCOLATE DIPPER-C~ Providers Date of Discharge: 12/28/21 Discharging Provider: [...] Patient was maintained on maintenance inhaler in [facility], but is currently not taking any maintenance [...] % (Auto) 89.6, Lymph % (Auto) 8.7, [place] % (Auto) 1.3, Eos % (Auto) 0.0, Baso % (Auto) 0.4, Neut # (Auto) 10.0 H, Lymph # (Auto) 1.0, [place] # (Auto) 0.1, Eos # (Auto) 0.0, [...] PRN (Reason: wheeze) Follow Up: Abdullahi Selby, CHOCOLATE DIPPER-C [Primary Care Provider] - 12/31/21 1:00 pm (You have beenscheduled for a follow up appointment for the following date and time, please call to reschedule if needed.) Documented By: Hema Miramontes MD 2 1640 Signed By: <Electronically signed by Hema Miramontes MD> 12/28/21 5390 [facility] Work Phone: Evaluation + Plan note Future Appointments Appointment Date:08/15/2023 11:20:00 AM Scheduled Provider:Quyen Mitchell Location:FT.ONCOLOGY Appointment Type:ONC Office Visit New 40 (FT) Diagnostic Tests Pending * Erythropoietin Level 08/12/23 Future Scheduled Tests Laboratory* CBC w/ Auto Diff 08/08/23 * CBC w/ Auto Diff 08/22/23 * CBC w/ Auto Diff 08/29/23 [facility] Future Appointments Appointment Date:09/05/2023 02:00:00 PM Scheduled Provider: Location:[facility] Surgical Services Appointment Type:Surgery FT Future Scheduled Tests Laboratory* CBC w/ Auto Diff 10/10/23 * CBC w/ Auto Diff 08/08/23 * CBC w/ Auto Diff 08/22/23 * Comprehensive Metabolic Panel 10/10/23 * Ferritin 10/10/23 * Folate Level 10/10/23 * Iron Level 10/10/23 * Iron Percent Saturation 10/10/23 * Transferrin 10/10/23 [facility] Evaluation + Plan note Future Appointments Appointment Date:09/05/2023 02:00:00 PM Scheduled Provider: Location:[facility] Surgical Services Appointment Type:Surgery FT Diagnostic Tests Pending * IgA, Quant. 09/01/23 * t-Transglutaminase (tTG) IgG 09/01/23 Future Scheduled Tests Laboratory* CBC w/ Auto Diff 10/10/23 * CBC w/ Auto Diff 08/08/23 * CBC w/ Auto Diff 08/22/23 * Comprehensive Metabolic Panel 10/10/23 * Ferritin 10/10/23 * Folate Level 10/10/23 * Iron Level 10/10/23 * Iron Percent Saturation 10/10/23 * Transferrin 10/10/23 [facility] Future Appointments Appointment Date:10/27/2023 02:20:00 PM Scheduled Provider:Quyen Mitchell Location:FT.ONCOLOGY Appointment Type:ONC Office Visit 20 (FT) Future Scheduled Tests Laboratory* CBC w/ Auto Diff 08/08/23 * CBC w/ Auto Diff 08/22/23 [facility] Evaluation noteNo [place] Other Evaluation note* Diagnosis Monocular esotropia, left eye- Primary Monocular esotropia Diplopia documented in this encounter [facility] CenterEvaluation note* Diagnosis Preoperative examination- Primary [...] eye Monocular esotropia documented in this encounter [facility] CenterEvaluation note* Diagnosis Onset Date Resolution Status Acute respiratory failure with hypoxia acute Asthma exacerbation acute [facility] Work Phone: evaluation note* Diagnosis Onset Date Resolution Status Acute respiratory failure with hypoxia acute Asthma acute Asthma exacerbation acute Hypoxemia acute [facility] Work Phone: evaluation note* Diagnosis Monocular esotropia, left eye- Primary Monocular esotropia Monocular esotropia, left eye Monocular esotropia documented in this encounter [facility] CenterEvaluation note* Diagnosis Monocular esotropia, left eye- Primary Monocular esotropia documented in this encounter [facility] CenterEvaludelaware [facility] note* Diagnosis Onset Date Resolution Status Acute respiratory failure with hypoxia acute Asthma acute Asthma exacerbation acute Hypoxemia acute Asthma exacerbation acute [facility] Work Phone: evaluation note* Diagnosis Onset Date Resolution Status Acute respiratory failure with hypoxia acute Asthma acute Asthma exacerbation acute Hypoxemia acute Asthma exacerbation acute Viral illness acute [facility] Work Phone: Evaluation noteNo assessment information available [facility] Work Phone: evaluation note* Diagnosis Status post partial thyroidectomy (CMS/HCC)- Primary Other postprocedural status Other hyperparathyroidism (CMS/HCC) Other hyperparathyroidism [facility] encounter [facility] Diagnosis Status post partial thyroidectomy (CMS/HCC)- Primary Other postprocedural status Thyroid mass (CMS/HCC) Unspecified disorder of thyroid Low vitamin D level documented in this encounter [facility] and physical note Author Nan Brand [facility] December 27, 2021 6:03pm Note Date/Time December 27, 2021 5 :46pm [facility] [address] [place] [address] Hospitalist H&P Signed Patient: Morro Maloney MR#: [id number] : 1985 Acct:[id number] Age/Sex: 36 / F Adm Date: 2 Loc: ER Room: Type: [facility] ER Attending Dr: Copies to: MYKEL HawkinsC [...] % (Auto) 23.6 % (.) 12/27/21 14:42 [place] % (Auto) 5.7 % (.) 12/27/21 14:42 Eos % (Auto) 1.9 % (.) 12/27/21 14:42 Baso % (Auto) 0.8 % (.) 12/27/21 14:42 Neut # (Auto) 8.6 x10E3/uL (1.8-7.7) H 12/27/21 14:42 Lymph # (Auto) 3.0 x10E3/uL (1.00-4.8) 12/27/21 14:42 [place] # (Auto) 0.7 x10E3/uL (0.0-0.8) 12/27/21 14:42 [...] signed by Nan Brand MD> 12/27/21 1803 [facility] Work Phone: History general Narrative - Reported* Type Description Date Medical History asthma Medical History PCOS Medical History bipolar Medical History panic disorder Medical History Gestational diabetes - yes Medical History Insulin Resistance Surgical History appendectomy Surgical History C section Surgical History gall bladder Hospitalization History Asthma Hospitalization History see above [email or web address] Other Hospital course Narrative No data available for this section [facility] Additional Instructions Do not start the prednisone for another 3 days and only if you need this Return for new or worsening symptoms Follow-up with family [facility] Work Phone: Hospital Discharge instructions No data available for this section [facility] No data available for this section [facility] Summary Purpose Family History Relationship Condition Age [...] DATE CREATED AUTHOR AUTHOR'S ORGANIZ ATION 11/23/2021 [facility] dical Specialist DATE CREATED AUTHOR AUTHOR'S ORGANIZ ATION 07/05/2022 [facility] DATE CREATED AUTHOR AUTHOR'S ORGANIZ ATION 08/04/2023 [facility] DATE CREATED AUTHOR AUTHOR'S ORGANIZ ATION 08/12/2023 [facility] DATE CREATED AUTHOR AUTHOR'S ORGANIZ ATION 08/13/2023 [facility] DATE CREATED AUTHOR AUTHOR'S ORGANIZ ATION 08/18/2023 [facility] DATE CREATED AUTHOR AUTHOR'S ORGANIZ ATION 09/06/2023 [facility] DATE CREATED AUTHOR AUTHOR'S ORGANIZ ATION 09/08/2023 [facility] DATE CREATED AUTHOR AUTHOR'S ORGANIZ ATION 09/12/2023 [facility] DATE CREATED AUTHOR AUTHOR'S ORGANIZ ATION 09/20/2023 [facility] DATE CREATED AUTHOR AUTHOR'S ORGANIZ ATION 09/24/2023 [facility] DATE CREATED AUTHOR AUTHOR'S ORGANIZ ATION 10/12/2023 [facility] DATE CREATED AUTHOR AUTHOR'S ORGANIZ ATION 10/28/2023 [facility] DATE CREATED AUTHOR AUTHOR'S ORGANIZ ATION 10/28/2023 [facility] DATE CREATED AUTHOR AUTHOR'S ORGANIZ ATION 11/06/2023 [facility] DATE CREATED AUTHOR AUTHOR'S ORGANIZ ATION 11/11/2023 [facility] dical Specialists [facility] DATE CREATED AUTHOR AUTHOR'S ORGANIZ ATION 12/06/2023 [facility] REASON FOR VISIT (unrecogniz [...] or prosecute any alcohol or drug abuse patient.[facility] Medical CenterIn the event this information is protected by the Federal Confidentiality of Alcohol and Drug Abuse Patient Records regulations: The Federal rules restrict any use of the information to criminally investigate or prosecute any alcohol or drug abuse patient.[facility] CenterIn the event this information is protected by the Federal Confidentiality of Alcohol and Drug Abuse Patient Records regulations: The Federal rules restrict any use of the information to criminally investigate or prosecute any alcohol or drug abuse patient.[facility] Medical CenterIn the event this information is protected by the Federal Confidentiality of Alcohol and Drug Abuse Patient Records regulations: The Federal rules restrict any use of the information to criminally investigate or prosecute any alcohol or drug abuse patient.[facility] CenterIn the event this information is protected by the Federal Confidentiality of Alcohol and Drug Abuse Patient Records regulations: The Federal rules restrict any use of the information to criminally investigate or prosecute any alcohol or drug abuse patient.[facility] CenterIn the event this information is protected by the Federal Confidentiality of Alcohol and Drug Abuse Patient Records regulations: The Federal rules restrict any use of the information to criminally investigate or prosecute any alcohol or drug abuse patient.[facility] Medical CenterIn the event this information is protected by the Federal Confidentiality of Alcohol and Drug Abuse Patient Records regulations: The Federal rules restrict any use of the information to criminally investigate or prosecute any alcohol or drug abuse patient.[facility] Care Teams (unrecognized sec tion and content) Team Status: Active Member Role Status Dates ERAN Pham Primary Care Provider Active Jason Milton Jr, MD Emergency Provider Active Andres Mcgee MD Admit Provider, Attending P rovider Active Team Status: Active Member Role Status Dates Abdullahi Selby , CHOCOLATE DIPPER-C Primary Care Provider Active Team Status: Inactive Member Role Status Dates Abdullahi Selby , CHOCOLATE DIPPER-C Primary Care Provider Active Jason Milton Jr, MD Emergency Provider Active Andres Mcgee MD Admit Provider Active Jp Barba DO Attending Provider Active Team Status: Active Member Role Status Dates Abdullahi Selby , CHOCOLATE DIPPER-C Primary Care Provider Active ABDIRASHID Valerio-C Emergency Provider Active Nan Brand MD Admit Provider, Attending Provide r Active Team Status: Inactive Member Role Status Dates Abdullahi Selby , CHOCOLATE DIPPER-C Primary Care Provider Active Mark Britt PA-C Emergency Provider Active Nan Brand MD Admit Provider Active Hema Miramontes MD Attending Provider Active Team Status: Inactive Member Role Status Dates Abdullahi Selby , CHOCOLATE DIPPER-C Primary Care Provider Active Jennifer Terry PA-C Emergency Provider Active Team Status: Active Member Role Status Dates Cleo Hernandez , CHOCOLATE DIPPER-C Primary Care Provider Active Team Status: Inactive Member Role Status Dates Brandon Juares DO Attending Provider Active S tart: September 26, 2023 End: September 26, 2023 Cleo Hernandez CHOCOLATE DIPPER-C Primary Care Provider Active Start: September 26, 2023 End: September 26, 2023 Team Status: Inactive Member Role Status Dates Brandon Juares DO Attending Provider Active S tart: October 05, 2023 End: October 05, 2023 Team Status: Inactive Member Role Status Dates Cleo Hernandez CHOCOLATE DIPPER-C Primary Care Provider Active Start: October 25, 2023 End: October 25, 2023 Brandon Juares DO Attending Provider Active S tart: October 25, 2023 End: October 25, 2023 Specification Consultant Relationship Specialty Start Date End Date Abdullahi Selby NP [address] [place] [address] [facility] 08/21/22 Chet Isabel MD [address] [place] [address] PCP - General Family Medicine 09/20/23 Rolly Vail APRN-PLANT PHYSIOLOGIST [address] [place] [address] Nurse Practitioner Behavioral Health 08/04/22 Cleo Hernandez MD [address] [place] [address] Referring Physician Family Medicine 09/20/23 Brandon Juares DO [address] [place] [address] Otolaryngology 09/20/23 Specification Consultant Relationship Specialty Start Date End Date Abdullahi Selby NP [address] [place] [address] PCP - [facility] 08/21/22 Chet Isabel MD [address] [place] [address] PCP - General Family Medicine 09/20/23 Rolly Vail APRN-PLANT PHYSIOLOGIST [address] [place] [address] Nurse Practitioner Behavioral Health 08/04/22 Cleo Hernandez MD [address] [place] [address] Referring Physician Family Medicine 09/20/23 Brandon Juares DO [address] [place] [address] Otolaryngology 09/20/23 Specification Consultant Relationship Specialty Start Date End Date Abdullahi Selby NP [address] [place] [address] PCP - [facility] 08/21/22 Chet Isabel MD [address] [place] [phone] PCP - General Family Medicine 09/20/23 Rolly Vail, PROFESSOR OF RADIOLOGY-PLANT PHYSIOLOGIST [address] [address] Nurse Practitioner Behavioral Health 08/04/22 Cleo Hernandez MD [address] [place] [address] Referring Physician Family Medicine 09/20/23 Brandon Juares DO [address] [place] [address] Otolaryngology 09/20/23 Specification Consultant Relationship Specialty Start Date End Date Abdullahi Selby NP [address] [place] [address] PCP - [facility] 08/21/22 Chet Isabel MD [address] [place] [address] PCP - General Family Medicine 09/20/23 Rolly Vail PROFESSOR OF RADIOLOGY-PLANT PHYSIOLOGIST [address] [address] Nurse Practitioner Behavioral Health 08/04/22 Cleo Hernandez MD [address] [place] [address] Referring Physician Family Medicine 09/20/23 Brandon Juares DO [address] [place] [address] Otolaryngology 09/20/23 Goals (unrecognized section and content) [...] BE BASED ON THE PRIMARY CLINICAL RECORDS. [facility]. provides no warranty or guarantee of the accuracy or completeness of information in this document.
[2024-02-14] VITALS (28 sets, daily range): BP systolic 119–140; BP diastolic 52–77; PULSE 85–103; TEMP 36.8; O2SAT 91–97
[2024-02-14] MEDS: ALPRAZOLAM 0.5 MG TABLET PO (01:41)
[2024-02-14] MEDS: ESCITALOPRAM 10 MG TABLET 20 MG PO (01:41)
[2024-02-14] MEDS: LAMOTRIGINE 100 MG TABLET 300 MG PO (01:43)
[2024-02-14] MEDS: IPRATROPIUM/ALBUTEROL SULFATE 3 ML AMPUL.NEB IH ×2 (02:37→05:07)
[2024-02-14] MEDS: METHYLPREDNISOLONE SOD SUCC PF 40 MG/ML VIAL IVP (05:31)
[2024-02-14 05:59] LABS: Basophils Percent Auto 0.1 % (0.2-2.0); Hematocrit 34.8 % (36.0-48.0); Hemoglobin 10.9 g/dL (12.0-16.0); Immature Granulocytes Abs Auto 0.22 10^3/uL (0.00-0.03); Immature Granulocytes Pct Auto 1.1 % (0.0-0.5); Lymphocytes Absolute Auto 1.3 10^3/uL (1.2-3.8); Lymphocytes Percent Auto 6.2 % (20.5-60.0); Mean Corpuscular HGB Conc 31.3 g/dL (29.9-35.2); Mean Corpuscular Hemoglobin 24.8 pg (26.7-34.0); Mean Corpuscular Volume 79.1 fL (81.0-99.0); Mean Platelet Volume 9.6 fL (9.5-13.5); Monocytes Absolute Auto 0.4 10^3/uL (0.3-0.8); Monocytes Percent Auto 1.8 % (1.7-12.0); Neutrophils Absolute Auto 18.4 10^3/uL (1.4-6.5); Neutrophils Percent Auto 90.8 % (43.0-75.0); Platelet Count 334 10^3/uL (150-450); Red Cell Distribution Width 17.1 % (11.0-15.0); White Blood Count 20.3 10^3/uL (4.0-11.0); pH VBG 7.373 (7.330-7.430)
[2024-02-14 06:12] LABS: Calcium 8.5 mg/dL (8.5-10.1); Carbon Dioxide 19.5 mmol/L (21.0-32.0); Chloride 104 mmol/L (98-107); Estimated GFR (African America 56 (>=60 mL/min/1.73m^2); Estimated GFR (Non-African Ame 46 (>=60 mL/min/1.73m^2); Glucose 235 mg/dL (74-106); Potassium 4.5 mmol/L (3.5-5.1); Sodium 138 mmol/L (136-145)
--- NOTE | 2024-02-14 09:43 | CM.NOTE ---
Rounds made with Dr. Coronel, pt will discharge to home today and f/u with PCP. Pt does not see a remote sensing engineer at this time. Discussed with pt preventative medicine, pt verbalizes understanding and will f/u with PCP.
--- NOTE | 2024-02-14 10:13 | PM.HP ---
HPI H&P: HPI History of Present Illness Chief complaint: ASTHMA EXACERBATION Narrative: 38 y/o female with a history of asthma to ER with SOB. C/o worsening symptoms for seveal days. Increased SOB and chest tight. Occasional dry cough. Took home prednisone and albuterol but no change. To ER due to symptoms. In ER noted increased work of breathing and decreased BS. SpO2 90-92%. Gave steroids and breathing treatments. Attempted to ambulate and desaturated to 79% and admitted. Initially on oxygen but able to wean overnight. Continued steroids and breathing treatments. Feels much improved this am and chest not as tight. Ambulating around room and normal SpO2 on room air. Opioid HPI Opioid Management Most Recent Pain and Opioid Data: Last Pain Assessment 02/14/24 09:00 Last ORT Total Score 4 02/13/24 23:56 02/13/24 Last ORT Risk Category Moderate Risk 02/13/24 23:56 02/13/24 Review of Systems ROS Constitutional Denies: fever, chills or fatigue Cardiovascular Denies: chest pain or palpitations Respiratory Reports: shortness of breath, cough and wheezing Gastrointestinal Denies: abdominal pain, nausea, vomiting or diarrhea Genitourinary Denies: painful urination PFSH PFSH Medical History (Updated 02/14/24 @ 10:18 by Balaji Coronel MD) Asthma with acute exacerbation ?J45.901 - Unspecified asthma with (acute) exacerbation (ICD-10) Dyspnea ?R06.00 - Dyspnea, unspecified (ICD-10) COVID-19 ?U07.1 - COVID-19 (ICD-10) delivery delivered ?O82 - Encounter for delivery without indication (ICD-10) Congenital strabismus ?H50.9 - Unspecified strabismus (ICD-10) Thyroid cyst ?E04.1 - Nontoxic single thyroid nodule (ICD-10) Parotid cyst ?K11.6 - Mucocele of salivary gland (ICD-10) Appendix disease ?K38.9 - Disease of appendix, unspecified (ICD-10) Gall bladder stones ?K80.20 - Calculus of gallbladder without cholecystitis without obstruction (ICD-10) Spondylolisthesis, lumbar region ?M43.16 - Spondylolisthesis, lumbar region (ICD-10) Surgical History (Updated 02/14/24 @ 00:36 by Kitty Thomas) H/O eye surgery ?Z98.890 - Other specified postprocedural states (ICD-10) S/P removal of thyroid nodule ?Z98.890 - Other specified postprocedural states (ICD-10) H/O gastric sleeve ?Z90.3 - Acquired absence of stomach [part of] (ICD-10) Family History (Updated 02/14/24 @ 00:38 by Kitty Thomas) Grandmother Family history of cancer Grandfather Family history of cancer Family history of stroke Mother Family history of hypertension Social History (Updated 02/14/24 @ 01:59 by Kitty Thomas) Within the past year, how often did you have a drink containing alcohol: never Score interpretation: A score less than 3 is consistent with normal alcohol consumption. Smoking status: Never smoker Non-prescribed substance use: denies use Highest level of school completed/degree received: Master's degree Are you now , , , , never or living with a partner: In a typical week, how many times do you talk on the telephone with family, friends, or neighbors: once per week How often do you get together with friends or relatives: once per week How often do you attend sabianism or faith services: never Little interest or pleasure in doing things: several days Feeling down, depressed, or hopeless: several days Feel stressed/tense/nervous/anxious/difficulty sleeping: to some extent Life stressors: other Life stressor details: health Due to disability, difficulty making decisions: No Do you think of yourself as: straight/heterosexual Gender Identity: female Meds Home Medications and Allergies Home Medications ?Medication ?Instructions ?Recorded ?Confirmed ?Type albuterol sulfate 2.5 mg/3 mL 2.5 mg inhalation Q3H PRN 11/18/22 02/14/24 History (0.083 %) solution for nebulization shortness of breath or wheezing eszopiclone 3 mg tablet 3 mg PO PRN PRN sleep 11/18/22 02/14/24 History fluticasone 250 mcg-salmeterol 50 inhalation 11/18/22 History mcg/dose blistr powdr for inhalation (Advair Diskus) ipratropium bromide 0.02 % 0.5 mg inhalation Q4H PRN 11/18/22 02/14/24 History solution for inhalation shortness of breath or wheezing lamotrigine 150 mg tablet 300 mg PO DAILY 11/18/22 02/14/24 History lurasidone 40 mg tablet (Latuda) mg 11/18/22 History sertraline 100 mg tablet mg 11/18/22 History nirmatrelvir 300 mg (150 mg See Rx Instructions PO .COMPLEX 05/25/23 02/14/24 Rx x2)-ritonavir 100 mg tablet,dose #30 ea pack (Paxlovid) albuterol sulfate 90 mcg/actuation 2 puff inhalation Q4H PRN 02/14/24 02/14/24 History aerosol inhaler shortness of breath or wheezing alprazolam 0.5 mg tablet (Xanax) 0.5 mg PO DAILY 02/14/24 02/14/24 History azithromycin 250 mg tablet 250 mg PO DAILY 4 days #4 tabs 02/14/24 Rx (Zithromax) benzonatate 200 mg capsule 200 mg PO TID PRN cough #30 caps 02/14/24 Rx escitalopram oxalate 20 mg tablet 20 mg PO DAILY 02/14/24 02/14/24 History prednisone 10 mg tablets in a dose 10 mg PO DAILY #39 ea 02/14/24 Rx pack Allergies Allergy/AdvReac Type Severity Reaction Status Date / Time No Known Drug Allergies Allergy Verified 02/13/24 19:44 Exam Constitutional Vital Signs, click to edit/add: Last Vital Signs Temp 98.3 F 02/14/24 08:00 Pulse 93 H 02/14/24 08:00 Resp 18 02/14/24 08:00 BP 119/52 02/14/24 08:00 Pulse Ox 93 L 02/14/24 08:00 O2 Del Method Room Air 02/14/24 06:38 O2 Flow Rate 1 02/14/24 05:30 FiO2 35 02/13/24 21:50 Documenting provider has reviewed patient's vital signs: yes Common normals: no apparent distress, oriented x3 and alert HENMT Common normals: normocephalic Eye Common normals: PERRL and EOMs intact bilaterally Respiratory Auscultation: diminished lung sounds; no wheezes Cardio Common normals: regular rate, regular rhythm, no gallops, no murmurs and no rub GI Common normals: Normal to inspection, nondistended, normoactive bowel sounds present and non-tender Extremity Common normals: no pedal edema Results Labs Labs: Short CBC 02/13/24 02/14/24 Range/Units 21:00 05:26 WBC 19.9 H 20.3 H (4.0-11.0) 10^3/uL Hgb 11.4 L 10.9 L (12.0-16.0) g/dL Hct 36.1 34.8 L (36.0-48.0) % Plt Count 336 334 (150-450) 10^3/uL BMP 02/13/24 02/14/24 21:00 05:26 Sodium 138 138 Potassium 4.0 4.5 Chloride 105 104 Carbon Dioxide 18.2 L 19.5 L BUN 9.0 9.0 Creatinine 1.37 H 1.29 H Glucose 177 H 235 H Calcium 8.8 8.5 Liver Function 02/13/24 Range/Units 21:00 Total Bilirubin 0.4 (0.2-1.0) mg/dL AST 8 L (15-37) U/L ALT 11 L (14-59) U/L Alkaline Phosphatase 93 (46-116) U/L Albumin 3.6 (3.4-5.0) g/dL ABG ABG results: 02/14/24 05:26 VBG pH 7.373 VBG pCO2 32.0 L Assessment and Plan Assessment and Plan (1) Asthma exacerbation: Qualifiers: Asthma severity: unspecified severity Asthma persistence: unspecified Qualified Code(s): J45.901 - Unspecified asthma with (acute) exacerbation (2) Hypoxia: (3) Obesity (BMI 30-39.9): Plan Patient much improved with treatment. Normal SpO2 and ambulating well. Discharge home. Take prednisone tapered over 12 days and finish zithromax. Use albuterol every 4 hours x 48 then PRN. Follow up with PCP in 1-2 weeks.
--- OUTSIDE RECORDS SUMMARY | 2024-02-16 08:07 | XMS_ITS | CCD ---
Author Organization [facility] Care Team Providers Care Order Editor Name Role Phone RINE, JACKELYN L Referring [...] ERAN Selby Primary Care Provider MD Jason Milotn Jr Emergency Provider Al MD Andres Evans Admit Provider Al MD Andres Evans Attending Provider DO Jp Barba Attending Provider ERAN Selby Primary Care Provider MD Jason Milton Jr Emergency Provider Al MD Andres Evans Admit Provider DO Jp Barba Attending Provider [phone] MYKEL Britt Emergency Provider [phone] MD Nan Brand Admit Provider [phone] MD Nan Brand Attending Provider MD Hema Miramontes Attending Provider MYKEL Terry Emergency Provider KELLY GUERRERO Admitting Unavailable KELLY GUERRERO Attending Unavailable MARIYA GUERREROID Consulting Unavailable WENDY ROMAN Consulting Unavailable Cleo Hernandez Primary Care Physician [phone] Cleo Hernandez Admitting Unavailable MayraCleo L Attending [...] Attending Unavailable MurDO Brandon batista Attending Provider [phone] ERAN Hernandez Primary Care Provider Quyen Garcia Attending Unavailable Demboske, Quyen Pozo Admitting Unavailable Mayra, Cleo Rivas Primary Care Unavailable Murcebety, Brandon Admitting Unavailable Murcek, Brandon Attending Unavailable Murcek, Brandon Admitting Unavailable Murcek, Brandon Attending Unavailable Murcek, Brandon Admitting Unavailable Murcek, Brandon Attending Unavailable Mayra, Cleo Rivas Primary Care Unavailable Mayra, AUTO CLAIMS ADJUSTER Cleo L Admitting Unavailable Mayra, AUTO CLAIMS ADJUSTER Cleo L Attending Unavailable Mayra, AUTO CLAIMS ADJUSTER Cleo L Referring Unavailable Elizabeth Moise H Attending Unavailable ABDULLAHI SELBY Attending Unavailable MONY-NOSSEKROLLY Attending Unavailab le MONY-NOSSEK, ROLLY Abdul Attending Unavailab le MURCEBRANDON Albert Attending Unavailable MAYRA, CLEO Referring Unavailable MURCEK, BRANDON W Attending Unavailable MURCEK, BRANDON W Attending Unavailable MURCEKBRANDON W Attending Unavailable Demboske, [facility]- Quyen Pozo Admitting U navailable Demboske, [facility]- Quyen Pozo Attending U navailable Mayra, Cleo Rebolledo Attending Unavailable Moyn-Nossek BRIM CUTTER-BOAT JOINER, Rolly Abdul Unavailable Abdullahi Selby NP Unavailable Cleo Hernandez MD Unavailable Brandon Juares DO Unavailable Chet Isabel MD Primary Care Provider Allergies Allergy Classification Reported Allergen(s) Allergy Type Date of Onset Reaction(s) Facility (6 sources) Mold Extract; Translations: [mold] Drug Allergy 2 Nasal Discharge [facility] (6 sources) ARIPiprazole Drug Allergy 3 [facility] (6 sources) FLUoxetine Drug Allergy 3 [facility] (6 sources) Mold Extract Drug Allergy 4 [facility] Medications Current Medications Medication Drug Class(es) Dates Sig (Normalized) Sig (Original) [id number] 200 actuat albuterol 0.09 mg/actuat metered dose inhaler (20 sources) beta2-Adrenergic Agonist Start: 08-24-2023 albuterol HFA 90 mcg/act inhaler Indications: Moderate asthma with acute exacerbation, unspecified whether persistent ([facility]) , Wheezing , Chest congestion INHALE [...] / neomycin 3.5 mg/ml / polymyxin b [id number] unt/ml ophthalmic suspension (2 sources) Aminoglycoside Antibacterial, [...] mouth every week ergocalciferol (Drisdol) 1.25 MG (36596 UT) capsule Indications: Low vitamin D level Take 1 capsule (1.25 mg) by mouth 1 (one) time per week for 12 doses 4 capsule 2 10/12/2023 12/29/2023 Active Start: 06-08-2021 End: 09-28-2022 take 1 capsule by mouth every week, then take 1 capsule by mouth every month Ergocalciferol (Vitamin D2) Discontinued 86877 UNIT PO As Directed June 08, 2021 [...] capsules Orally twice daily; Note: Source Status: [id number] chronic pain; Refills: 0; Qty: 120 capsules; [...] day(s), # 21 tab(s), Refills(s) 0, Pharmacy: [facility]/pharmacy #[id number], 161, cm, 08/01/23 14:17:00 [...] Daily, # 30 tab(s), Refills(s) 0, Pharmacy: [facility], 161, cm, 10/18/22 14:05:00 EDT, [...] q4hr for wheezing, 18 gram, Refill(s) 11, [facility]/pharmacy #[id number], 161, cm, 09/21/23 15:12:00 EDT, Height/Length Dosing, 108, kg, 09/21/23 15:12:00 EDT, Weight Dosing Start Date: 10/07/23 Status: Ordered Start: 12-31-2022 take 2 puff(s) by in halation every four hours for wheezing Ventolin HFA 90 mcg/inh Aerosol-Adpt 2 puff(s), Inhalation, q4hr for wheezing, 18 gram, Refill(s) 5, [facility]/pharmacy #[id number], 161, cm, 10/18/22 14:05:00 EDT, Height/Length Dosing, 105.6, kg, 10/18/22 13:58:00 EDT, Weight Dosing Start Date: 12/31/22 Status: Ordered Start: 10-18-2022 take 2 puff(s) by in halation every four hours for wheezing Ventolin HFA 90 mcg/inh Aerosol-Adpt 2 puff(s), Inhalation, q4hr for wheezing, 18 gram, Refill(s) 0, [facility], 161, cm, 10/18/22 14:05:00 EDT, Height/Length Dosing, 105.6, kg, 10/18/22 13:58:00 EDT, Weight Dosing Start Date: 10/18/22 Status: Ordered Completed/Discontinued Medications Medication Drug Class(es) Dates Sig (Normalized) Sig (Original) acetaminophen 325 mg / HYDROcodone bitartrate 5 mg oral tablet (8 sources) Opioid Agonist Start: 05-17-2019 End: 04-11-2021 take 1 tablet by mouth four times daily Hydrocodone-Acetamin ophen ([place]) 5-325 mg tablet Discontinued 1 TAB PO [...] 07-17-2022 Chronic Other aftercare (1 source) Other group home (current) drug therapy; Translations: [OTH CORRECTION CURRENT DRUG THERAPY] Onset: 06-30-2022 Episodic Other [...] choosing us for your care. Normal Garza [facility] Noteon 12-05-2023 [...] Daily, # 30 tab(s), Refills(s) 0, Pharmacy: [facility]/pharmacy #[id number], 161, cm, 12/05/23 14:58:00 EDT, Height/Length Dosing, 111.3, kg, 12/05/23 14:58:00 EDT, Weight Dosing topiramate, 25 mg = 1 tab(s), Oral, Daily, # 30 tab(s), Refills(s) 2, Pharmacy: [facility]/pharmacy #[id number], 161, cm, 12/05/23 14:58:00 EDT, Height/Length Dosing, 111.3, kg, 12/05/23 14:58:00 EDT, Weight Dosing 2. History of thyroidectomy (E89.0: Postprocedural hypothyroidism) keyliner managing medicaiton 3. BMI 40.0-44.9, adult (Z68.41: Body mass index [BMI] 40.0-44.9, adult) pt would like to try adipex and topamax Ordered: phentermine, 37.5 mg = 1 tab(s), Oral, Daily, # 30 tab(s), Refills(s) 0, [id number], cm, 12/05/23 14:58:00 EDT, Height/Length Dosing, 111.3, kg, 12/05/23 14:58:00 EDT, Weight Dosing topiramate, 25 mg = 1 tab(s), Oral, Daily, # 30 tab(s), Refills(s) 2, [id number] 161, cm, 12/05/23 14:58:00 EDT, Height/Length Dosing, 111.3, kg, 12/05/23 14:58:00 EDT, Weight Dosing 4. Obesity due to excess calories (E66.09: Other obesity due to excess calories) see above Ordered: phentermine, 37.5 mg = 1 tab(s), Oral, Daily, # 30 tab(s), Refills(s) 0, [id number] 161, cm, 12/05/23 14:58:00 EDT, Height/Length Dosing, 111.3, kg, 12/05/23 14:58:00 EDT, Weight Dosing topiramate, 25 mg = 1 tab(s), Oral, Daily, # 30 tab(s), Refills(s) 2, [id number] 161, cm, 12/05/23 14:58:00 EDT, Height/Length Dosing, 111.3, kg, 12/05/23 14:58:00 EDT, Weight Dosing 5. Non-smoker (Z78.9: Other specified health status) continue not smoking Ordered: phentermine, 37.5 mg = 1 tab(s), Oral, Daily, # 30 tab(s), Refills(s) 0, [id number] 161, cm, 12/05/23 14:58:00 EDT, Height/Length Dosing, 111.3, kg, 12/05/23 14:58:00 EDT, Weight Dosing topiramate, 25 mg = 1 tab(s), Oral, Daily, # 30 tab(s), Refills(s) 2, [id number] 161, cm, 12/05/23 14:58:00 EDT, [...] mRNA BNT-16 (more content not included)... Normal [facility] Comment on above: Result Comment: Elec tronically Signed By: Mayra ALVAREZ, Cleo Rebolledo\.br\Date and Time Signed: 12/05/23 15:17 EDT CBC w/ Auto Diffon 4 Basophils/100 WBC (Bld) 0.6 % Normal 0.0-2.0 [facility] Comment on above: Performed By: #### 2 [id number] #### [facility] [address] [place] [address] Basophils/Leukocytes Auto (Bld) [Pure # fraction] 0.1 E9/L Normal 0.0-0.2 [facility] Comment on above: Performed By: #### 2 [id number] #### [facility] [address] [place] [address] Eosinophils (Bld) [#/Vol] 0.4 E9/L Normal 0.0-0.5 [facility] Comment on above: Performed By: #### 2 763468 #### [facility] [address] [place] [address] Eosinophils/100 WBC (Bld) 3.8 % Normal 0.0-8.0 [facility] Comment on above: Performed By: #### 2 927267 #### [facility] [address] [place] [address] Erythrocyte distribution width (RBC) [Ratio] 22.4 % High 10.9-14.2 [facility] Comment on above: Performed By: #### 2 533686 #### [facility] [address] [place] [address] Hematocrit (Bld) [Volume fraction] 35.4 % Normal 34.0-46.0 [facility] Comment on above: Performed By: #### 2 874488 #### [facility] [address] [place] [address] Hemoglobin (Bld) [Mass/Vol] 11.3 g/dL Low 12.0-16.0 [facility] Comment on above: Performed By: #### 2 140501 #### [facility] [address] [place] [address] Hypochromia Auto Ql (Bld) PRESENT Invalid Interpretation Code [facility] Comment on above: Performed By: #### 2 [id number] #### [facility] [address] [place] [address] Lymphocytes (Bld) [#/Vol] 2.5 E9/L Normal 1.0-4.0 [facility] Comment on above: Performed By: #### 2 351806 #### [facility] [address] [place] [address] Lymphocytes/100 WBC (Bld) 26.9 % Normal 14.0-50.0 [facility] Comment on above: Performed By: #### 2 738738 #### [facility] [address] [place] [address] MCH (RBC) [Entitic mass] 23.6 pg Low 27.0-34.0 [facility] Comment on above: Performed By: #### 2 [id number] #### [facility] [address] [place] [address] MCHC (RBC) [Mass/Vol] 31.9 g/dL Normal 31.4-36.0 [facility] Comment on above: Performed By: #### 2 [id number] #### [facility] [address] [place] [address] MCV (RBC) [Entitic vol] 73.9 fL Low 80.0-100.0 F [facility] Comment on above: Performed By: #### 2 643977 #### [facility] [address] [place] [address] Microcytes Ql (Bld) PRESENT Invalid Interpretation Code [facility] Comment on above: Performed By: #### 2 048426 #### [facility] [address] [place] [address] Monocytes (Bld) [#/Vol] 0.4 E9/L Normal 0.2-1.0 F [facility] Comment on above: Performed By: #### 2 507534 #### [facility] [address] [place] [address] Neutrophils (Bld) [#/Vol] 5.9 E9/L Normal 2.0-7.5 [facility] Comment on above: Performed By: #### 2 935534 #### [facility] [address] [place] [address] Neutrophils/100 WBC (Bld) 64.1 % Normal 36.0-75.0 [facility] Comment on above: Performed By: #### 2 705893 #### [facility] [address] [place] [address] Ovalocytes LM Ql (Bld) PRESENT Invalid Interpretation Code [facility] Comment on above: Performed By: #### 2 718609 #### [facility] [address] [place] [address] Platelet mean volume (Bld) [Entitic vol] 7.4 fL Normal 6.4-10.8 [facility] Comment on above: Performed By: #### 2 032761 #### [facility] [address] [place] [address] Platelets (Bld) [#/Vol] 331.0 E9/L Normal 150.0-500.0 [facility] Comment on above: Performed By: #### 2 629607 #### [facility] [address] [place] [address] RBC (Bld) [#/Vol] 4.8 E12/L Normal 4.3-5.9 [facility] Comment on above: Performed By: #### 2 553659 #### [facility] [address] [place] [address] RBC size Nom (Bld) SEE MORPHOLOGY Invalid Interpretation Code [facility] Comment on above: Performed By: #### 2 285835 #### [facility] [address] [place] [address] WBC corrected for nucl RBC Auto (Bld) [#/Vol] 9.2 E9/L Normal 4.0-11.0 [facility] Comment on above: Performed By: #### 2 746328 #### [facility] [address] [place] [address] CHEMISTRYOrdered By: SYSTEM SYSTEM on 10-26-2023 Albumin [...] 10-26-2023 Albumin [Mass/Vol] 4.4 g/dL Normal 3.3-5.0 [facility] Comment on above: Performed By: #### 2 115444 #### [facility] [address] [place] [address] Albumin/Globulin (S) [Mass conc ratio] 1.4 Normal 1.1-2.2 [facility] Comment on above: Performed By: #### 2 627171 #### [facility] [address] [place] [address] ALP [Catalytic activity/Vol] 95 Int._Unit/L Normal 21-98 [facility] Comment on above: Performed By: #### 2 973090 #### [facility] [address] [place] [address] ALT No additional P-5'-P [Catalytic activity/Vol] 12 Int._Unit/L Normal 6-46 [facility] Comment on above: Performed By: #### 2 912174 #### [facility] [address] [place] [address] Anion gap [Moles/Vol] 13 mmol/L Normal 6-16 [facility] Comment on above: Performed By: #### 2 396321 #### [facility] [address] [place] [address] AST [Catalytic activity/Vol] 17 Int._Unit/L Normal 5-43 [facility] Comment on above: Performed By: #### 2 771361 #### [facility] [address] [place] [address] Bilirubin [Mass/Vol] 0.5 mg/dL Normal 0.0-1.1 [facility] Comment on above: Performed By: #### 2 697663 #### [facility] [address] [place] [address] Calcium [Mass/Vol] 9.3 mg/dL Normal 8.9-11.1 [facility] Comment on above: Performed By: #### 2 665730 #### [facility] [address] [place] [address] Chloride [Moles/Vol] 101 mmol/L Normal 101-111 [facility] Comment on above: Performed By: #### 2 049689 #### [facility] [address] [place] [address] CO2 [Moles/Vol] 25 mmol/L Normal 21-31 [facility] Comment on above: Performed By: #### 2 251431 #### [facility] [address] [place] [address] Creatinine [Mass/Vol] 1.0 mg/dL Normal 0.5-1.3 [facility] Comment on above: Performed By: #### 2 197071 #### [facility] [address] [place] [address] Globulin (S) [Mass/Vol] 3.2 g/dL Normal 1.4-4.0 F [facility] Comment on above: Performed By: #### 2 285189 #### [facility] [address] [place] [address] Glucose [Mass/Vol] 121 mg/dL Normal 55-199 [facility] Comment on above: Performed By: #### 2 702091 #### [facility] [address] [place] [address] Potassium [Moles/Vol] 4.0 mmol/L Normal 3.5-5.3 [facility] Comment on above: Performed By: #### 2 870155 #### [facility] [address] [place] [address] Protein [Mass/Vol] 7.6 g/dL Normal 6.0-7.8 [facility] Comment on above: Performed By: #### 2 733375 #### [facility] [address] [place] [address] Sodium [Moles/Vol] 135 mmol/L Normal 135-145 [facility] Comment on above: Performed By: #### 2 344823 #### [facility] [address] [place] [address] Urea nitrogen [Mass/Vol] 9 mg/dL Normal 5-21 [facility] Comment on above: Performed By: #### 2 901699 #### [facility] [address] [place] [address] Urea nitrogen/Creatinine [Mass ratio] 9 No Units Low 10-20 [facility] Comment on above: Performed By: #### 2 733501 #### [facility] [address] [place] [address] Ferritinon 10-26-2023 Ferritin [Mass/Vol] 9 ng/mL Low 11-307 [facility] Comment on above: Performed By: #### 2 334489 #### [facility] [address] [place] [address] Folateon 10-26-2023 Folate [Mass/Vol] 13.8 ng/mL Normal >=6.7 [facility] Comment on above: Performed By: #### 2 685567 #### [facility] [address] [place] [address] HEMATOLOGYOrdered By: SYSTEM SYSTEM on 10-26-2023 Basophils/100 [...] 10-26-2023 Iron [Mass/Vol] 35 microgram/dL Normal 35-153 [facility] Comment on above: Performed By: #### 2 577726 #### [facility] [address] [place] [address] Iron Saturationon 10-26-2023 Iron binding capacity [Mass/Vol] 367 microgram/dL Normal 250-400 [facility] Comment on above: Performed By: #### 2 707502 #### [facility] [address] [place] [address] Iron saturation [Mass fraction] 10 % Low 20-50 [facility] Comment on above: Performed By: #### 2 781498 #### [facility] [address] [place] [address] Transferrinon 10-26-2023 Transferrin [Mass/Vol] 262 mg/dL Normal 200-370 [facility] Comment on above: Performed By: #### 2 677834 #### [facility] [address] [place] [address] eGFRon 10-26-2023 eGFR 73 mL/min/1.73 m2 Normal >=59 [facility] Comment on above: Order Comment: Order added by Discern Expert. Performed By: #### 1 [id number] #### [facility] [address] [place] [address] Calcium [Mass/volume] in Ser um or PlasmaOrdered By: Brandon Juares on 10-25-2023 Calcium [Mass/Vol] 9.0 mg/dL Normal 8.6-10.3 [facility] Comment on above: Performed By: #### T SH3, [id number], CA, T4T, T3T #### [address] Parathyrin.intact [Mass/volu me] in Serum or PlasmaOrdered By: Brandon Juares on 10-25-2023 Parathyrin.intact [Mass/Vol] 97.1 pg/mL High [facility] Parathyroid Hormone Intacton 10-25-2023 Parathyroid Hormone Intact 97.1 pg/mL High [facility] Comment on above: Result Comment: PERF ORMED BY: [place] [address] PATHOLOGIST ASSISTANT ASSOCIATE PROFESSOR KIRSTEN CHOW M.D. Performed By: #### P TH #### [address] Thyrotropin [Units/volume] i n Serum or PlasmaOrdered By: Brandon Juares on 10-25-2023 TSH Qn 4.38 m[IU]/L Normal 0.45-5.33 [facility] Comment on above: Performed By: #### T SH3, [id number], CA, T4T, T3T #### [address] Thyroxine (T4) [Mass/volume] in Serum or PlasmaOrdered By: Brandon Juares on 10-25-2023 T4 [Mass/Vol] 7.13 ug/dL Normal 5.39-11.82 [facility] Comment on above: Performed By: #### T SH3, [id number], CA, T4T, T3T #### [address] Triiodothyronine (T3) Totalo n 10-25-2023 Triiodothyronine (T3) Total 0.58 ng/mL Low 0.87-1.78 [facility] Comment on above: Performed By: #### T SH3, [id number], CA, T4T, T3T #### [address] Vitamin D 25 Hydroxy Totalon 10-25-2023 Vitamin D 25 Hydroxy Total 35.1 ng/mL Normal 30-100 [facility] Comment on above: Result Comment: ROBERT MIN D STATUS 25(OH)VITAMIN D RANGE (ng/mL) Deficient <20 Insufficient 20 to <30 Sufficient 30 to 100 Reference: Joby Galicia, Olesya DOWLING, et al. Evaluation,treatment, and prevention of vitamin D deficiency; an Endocrine Society clinical practice guideline. JCEM. 2010; 96(7):1911-30. PERFORMED BY: [place] [address] PATHOLOGIST ASSISTANT ASSOCIATE PROFESSOR KIRSTEN CHOW M.D. Performed By: #### T SH3, [id number], CA, T4T, T3T #### [address] Vitamin D+Metabolites [Mass/ volume] in Serum or PlasmaOrdered By: Brandon Juares on 10-25-2023 Vitamin D+Metabolites [Mass/Vol] 35.1 ng/mL 30-100 [facility] Comment on above: VITAMIN D STATUS 25( [place])VITAMIN D RANGE (ng/mL) Deficient <20 Insufficient 20 to <30Sufficient 30 to 100Reference: Joby Galicia, Olesya DOWLING, et al. Evaluation,treatment, and prevention of vitamin D deficiency; an Endocrine Society clinical practice guideline. JCEM. 2010; 96(7):1911-30. SURGICAL PATHOLOGY REFERENCE LAB CONSULTon 10-10-2023 CASE REPORT Normal [facility] Comment on above: Order Comment: Speci men Type: FORMALIN-FIXED PARAFFIN-EMBEDDED TISSUE SPECIMEN Ordering Facility: [facility] Address: [address] [place] [phone] Result Comment: Surg ical Pathology Report Case: [id number] Authorizing Provider: Nilesh Heck, Collected: 10/10/2023 10:43 PM Ordering Location: [facility] Received: 10/10/2023 10:43 [facility] Pathologist: Rachel Pereyra MD Specimen: Slide(s), 6 SLIDES [id number] Performed By: #### L [id number] #### [facility] CLIA [id number] [address] [place] [address] OF [facility] CLINICAL HISTORY CONSULT REQUESTED Normal [facility] Comment on above: Order Comment: Speci men Type: FORMALIN-FIXED PARAFFIN-EMBEDDED TISSUE SPECIMEN Ordering Facility: [facility] Address: [address] [place] [address] Performed By: #### L [id number] #### [facility] CLIA [id number] [address] [place] [address] DIAGNOSIS COMMENT Thank you for maymarcos kimberly this case. We would classify the 1.9 cm nodule with variably sized thyroid follicles within the spectrum of thyroid follicular nodular disease. No nuclear changes of papillary thyroid carcinoma is appreciated. Select slides were reviewed by my colleague, Dr. Tirso Mack and he agrees with the interpretation. [facility] Comment on above: Order Comment: Speci men Type: FORMALIN-FIXED PARAFFIN-EMBEDDED TISSUE SPECIMEN Ordering Facility: [facility] Address: [address] [place] [address] Performed By: #### L [id number] #### [facility] CLIA [id number] [address] [place] [address] FINAL DIAGNOSIS Normal [facility] Comment on above: Order Comment: Speci men Type: FORMALIN-FIXED PARAFFIN-EMBEDDED TISSUE SPECIMEN Ordering Facility: [facility] Address: [address] [place], [place] [phone] Result Comment: A. 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 - Intrathyroidal parathyroid gland tissue, 0.1 cm. Performed By: #### L [id number] #### [facility] CLIA [id number] [address] [place] [address] OF [facility] FINAL PERFORMING LAB Normal [facility] Comment on above: Order Comment: Speci men Type: FORMALIN-FIXED PARAFFIN-EMBEDDED TISSUE SPECIMEN Ordering Facility: [facility] Address: [address] [place] [phone] Result Comment: Diag nostic interpretation performed at [facility], [address] [place] [address] CLIA# [id number] Shuttler: Asael Clarke M.D. Performed By: #### L [id number] #### [facility] CLIA [id number] [address] [place] [id number] OF [facility] Beto 10-05-2023 L Specimen: [id number] Received: 10/05/23 Status: MOY Castaneda Num: [id number] Spec Type: Surgical Subm Dr: Brandon Juares DO Tissues: A THYROID - Lobe (RIGHT THYROID LOBE AND ISTHM) Procedures: HE/7, Gross/Micro L5 Age/ Patient Sex Location Account Attending Physician Morro Maloney 38/F [place] [id number] Brandon Juares DO SPEC NUM: [id number] RECD: 10/05/23 STATUS: MOY CASTANEDA NUM: [id number] PEGGY: 10/05/23 DR: Brandon Juares DO ENTERED: 10/05/[address] [facility] [address]: Rachid [facility] SPEC TYPE: Surgical DEPT: S ENTERED BY: [id number] RECV BY: [id number] ORDERED: HE/7, Gross/Micro L5 ORDERED: HE/7, Gross/Micro L5 Supplemental Report Addendum 1 Entered: 10/11/23 This case was sent to [facility] for consultation. 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 Intrathyroidal parathyroid gland tissue, 0.1 cm. Please see attached consultation report from [facility] for diagnostic details. Addendum Signed (signature on file) Nilesh Eckert MD 10/11/23 1547 Pathological Diagnosis Preliminary report Nodule, right thyroid lobe, hemithyroidectomy: Atypical thyroid neoplasm. Pending external consultation. Specimen: [id number] Received: 10/05/23 Status: MOY Castaneda Num: [id number] Spec Type: Surgical Subm Dr: Brandon Juares DO Tissues: A THYROID - Lobe (RIGHT THYROID LOBE AND ISTHM) Procedures: BRISEIDA, Gross/Micro L5 Patient: Morro Maloney [id number] (Continued) Specimen: [id number] Received: 10/05/23 (Continued) Signed (signature on file) Nilesh Eckert MD 10/06/23 1712 Specimen: [id number] Received: 10/05/23 Status: MYO Wilsoncourtney Num: [id number] Spec Type: Surgical Subm Dr: Brandon Juares DO Tissues: A THYROID - Lobe (RIGHT THYROID LOBE AND ISTHM) Procedures: Adri, Gross/Micro L5 Patient: HaiderMorro Sara [id number] (Continued) Specimen: [id number] Received: 10/05/23 (Continued) Clinical Information Thyroid nodule [...] thyroid parenchyma is red-brown, beefy and unremarkable. Core Drill Operator sections are sequentially submitted from superior to inferior in A1?A6 as follows: A1: Normal-appearing parenchyma A2: Hemorrhagic cystic nodule A3-A6: Rubbery cyst (A6-following decalcification) CPT Codes 66549 Specimen: [id number] Received: 10/05/23 Status: MOY Castaneda Num: [id number] Spec Type: Surgical Subm Dr: Brandon Juares DO Tissues: A THYROID - Lobe (RIGHT THYROID LOBE AND ISTHM) Procedures: ABBY/Adri, Gross/Micro L5 Patient: HaiderMorro Sara [id number] (Continued) Signed (signature on file) Nilesh Eckert MD 10/06/23 9235 Normal [facility] Basic Metabolic Panelon GFR/1.73 sq M.predicted MDRD (S/P/Bld) [Vol rate/Area] mL/min/{1.73_m2} Normal [facility] Comment on above: Performed By: #### B SUSANA, TSH3 #### [facility] [address] [place] [address] [place] Calcium [Mass/volume] in Ser um or PlasmaOrdered By: Brandon Juares on 09-26-2023 Calcium [Mass/Vol] 8.9 mg/dL Normal 8.6-10.3 [facility] Comment on above: Performed By: #### B SUSANA, TSH3 #### [facility] [address] [place] [address] [place] Carbon dioxide, total [Moles /volume] in Serum or PlasmaOrdered By: Brandon Juares on 09-26-2023 CO2 [Moles/Vol] 25.8 mmol/L Normal 21.0-31.0 [facility] Comment on above: Performed By: #### B SUSANA, TSH3 #### [facility] [address] [place] [address] [place] Chloride [Moles/volume] in S alice or PlasmaOrdered By: Brandon Juares on 09-26-2023 Chloride [Moles/Vol] 103 mmol/L Normal 98-107 [facility] Comment on above: Performed By: #### B SUSANA, TSH3 #### [address] Creatinine [Mass/volume] in Serum or PlasmaOrdered By: Brandon Juares on 09-26-2023 Creatinine [Mass/Vol] 0.99 mg/dL Normal 0.60-1.20 [facility] Comment on above: Performed By: #### B SUSANA, TSH3 #### [facility] [address] ECG 12 lead ECGon 09-26-2023 ECG 12 lead ECG [facility] Main [place] [address] [place] [address] Electrocardiograph Report Signed Patient: Morro Maloney MR#: [id number] 8 : 1985 Acct:[id number] Age/Sex: 38 / F ADM Date: 09/26/23 Loc: Room: Type: [facility] Attending Dr: Brandon Juares DO Ordering [...] Sharon Bagley DO 4 1900 Normal [facility] Glucose [Mass/volume] in Ser um or PlasmaOrdered By: Brandon Juares on 09-26-2023 Glucose [Mass/Vol] 87 mg/dL Normal 70-100 [facility] Comment on above: ADA recommended refe rence rangeRandom Glucose Reference Range is dependent on time and content of last meal. Glucose of more than 200 mg/dL in a nonstressed, ambulatory subject supports the diagnosis of Diabetes Mellitus. Result Comment: [place] Glucose Reference Range is dependent on time and content of last meal. Glucose of more than 200 mg/dL in a nonstressed, ambulatory subject supports the diagnosis of Diabetes Mellitus. ADA recommended reference range Performed By: #### B SUSANA TSH3 #### [address] No Panel InformationOrdered By: Brandon Juares on 09-26-2023 Estimated GFR (CKD-EPI) > 60.0 mL/Min [facility] Creatinine Clearance (Chem N/A [facility] Parathyrin.intact [Mass/volu me] in Serum or PlasmaOrdered By: Brandon Juares on 09-26-2023 Parathyrin.intact [Mass/Vol] 102.0 pg/mL High [facility] Parathyroid Hormone Intacton 09-26-2023 Parathyroid Hormone Intact 102.0 pg/mL High [facility] Comment on above: Result Comment: PERF ORMED BY: [place] [address] PATHOLOGIST ASSISTANT ASSOCIATE PROFESSOR KIRSTEN CHOW M.D. Performed By: #### P TH #### [address] Potassium [Moles/volume] in Serum or PlasmaOrdered By: Brandon Juares on 09-26-2023 Potassium [Moles/Vol] 4.4 mmol/L Normal 3.5-5.1 [facility] Comment on above: Performed By: #### B SUSANA TSH3 #### [address] Serum or plasma anion gap de terminationOrdered By: Brandon Juares on 09-26-2023 Anion gap [Moles/Vol] 10.6 mmol/L Normal 6.0-15.0 [facility] Comment on above: Performed By: #### B SUSANA, TSH3 #### [address] Sodium [Moles/volume] in Ser um or PlasmaOrdered By: Brandon Juares on 09-26-2023 Sodium [Moles/Vol] 135 mmol/L Low 136-145 [facility] Comment on above: Performed By: #### B SUSANA, TSH3 #### [facility] [address] Thyrotropin [Units/volume] i n Serum or PlasmaOrdered By: Brandon Juares on 09-26-2023 TSH Qn 1.49 m[IU]/L Normal 0.45-5.33 [facility] Comment on above: Result Comment: PERF ORMED BY: [place] [address] PATHOLOGIST ASSISTANT ASSOCIATE PROFESSOR KIRSTEN CHOW M.D. Performed By: #### B SUSANA, TSH3 #### [address] Urea nitrogen [Mass/volume] in Serum or PlasmaOrdered By: Brandon Juares on 09-26-2023 Urea nitrogen [Mass/Vol] 15 mg/dL Normal 7-25 [facility] Comment on above: Performed By: #### B SUSANA, TSH3 #### [address] Gastroenterology Office/Clin ic Noteon 09-21-2023 Gastroenterology [...] (COVID-19) mRNA BNT-162b2 vax 03/12/[address] [facility] Comment on above: Result Comment: Elec tronically Signed By: Vinay INGRAM, Stefan Martinez\.br\Date and Time Signed: 09/21/23 15:30 EDT Surgical Pathology Reporton 09-08-2023 Surgical Pathology Report [facility] [address] [facility] [place] [address]- Surgical Pathology Report Collected Date/Time: 09/05/2023 13:21 [...] is entirely submitted in one cassette. (DC) DC:[facility] Microscopic Description A&B: Microscopic examination performed unless gross only specified. The use of one or more reagents in the above tests is regulated as an analyte specific reagent (ASR). The test or tests are ordered following initial H&E microscopic examination. The performance characteristics were determined by the Laboratory of [facility]. They have not been cleared or approved by the US Food and Drug Administration. The FDA has determined that such clearance or approval is not necessary. These tests are used for clinical purposes. They should not be regarded as investigational or for research. Appropriate positive and negative controls are performed and are acceptable. Normal [facility] Comment on above: Performed By: #### 4 [id number] #### [facility] [address] [place] [address] Main OR Intraoperative Recor don 09-07-2023 Main OR Intraoperative Record Main OR Intraoperative Record IntraOp Document Type FT Summary Primary Physician: Vinay INGRAM, Stefan Martinez Finalized Date/Time: 09/07/23 14:37:49 Pt. Name: MORRO MALONEY/Sex: 1985 Female Med Rec #: [id number] Physician: Vinay INGRAM, Stefan Martinez Financial #: [id number] Pt. Type: O Room/Bed: / Admit/Disch: 09/05/23 [...] Cinthya Role Performed Anesthesiologist Surgeon - Primary Arborer - Primary Real Estate Teacher Time In 09/05/23 13:05:00 09/05/23 13:05:00 09/05/23 [...] and tissue Entry 1 Skin Integrity Intact, [place], Warm, and Skin Abnormality No Dry Outcomes Met? Yes Last Modified By: Cinthya Fatima RN 09/05/23 13:18:54 Post-Care Text: The patient is free from signs and symptoms of injury caused by extraneous objects Patient Positioning FT Pre-Care Text: Identifies physical alterations that require additional precautions for procedure-specific (more content not included)... Normal [facility] Discharge Instructionson Discharge Instructions Discharge Instruc [...] Follow Up with Stefan Mclean MD, [facility] When: Comments: Call for any problems. The [...] Document Re-Released: 08/01/2006 ExitCare? Patient Information ?2009 [employer]. Hemorrhoids Hemorrhoids are swollen veins that may [...] This cond (more content not included)... Normal [facility] Comment on above: Result Comment: Elec [...] q4hr for wheezing, 18 gram, Refill(s) 5, [facility]/pharmacy #[id number], 161, cm, 10/18/22 14:05:00 EDT, Height/Length Dosing, 105.6, kg, 10/18/22 13:58:00 EDT, Weight Dosing folic acid 1 mg Tab: 1 mg = 1 tab(s), Oral, Daily, # 90 tab(s), Refills(s) 4, Pharmacy: [facility]/pharmacy #[id number], 161, cm, 08/15/23 11:32:00 [...] duodenum. Biopsies obtained Images Procedure images: Rec_hd_video_ [id number].jpg Rec_hd_video_ [id number].jpg Rec_hd_video_ [id number].jpg Rec_hd_video_ [id number].jpg Rec_hd_video_ [id number].jpg Rec_hd_video_ [id number].jpg Rec1_hd_video_ [id number].jpg . Post-Procedure Complications: none. Estimated blood loss: minimal. Specimens: sent to pathology. Devices/ implants: none left in place. Impression and Plan small hiatal hernia Irregular Z-line Evidence of previous gastric sleeve Gastropathy Recommendations: -Resume previous diet -Resume home medications -Await pathology results, follow in GI clinic in 1-[address] [facility] Comment on above: Other Comment: Felipa gonzalez Attachment - attachment storage system not supported [id number] Can be viewed in source system Missing Attachment - attachment storage system not supported [id number] Can be viewed in source system Missing Attachment - attachment storage system not supported [id number] Can be viewed in source system Missing Attachment - attachment storage system not supported [id number] Can be viewed in source system Missing Attachment - attachment storage system not supported [id number] Can be viewed in source system Missing Attachment - attachment storage system not supported [id number] Can be viewed in source system Missing Attachment - attachment storage system not supported [id number] Can be viewed in source system Main OR PACU I Recordon 08-21 Main OR PACU I Record Main OR PACU I Rec ord PACU Phase I Document Type FT Summary Primary Physician: Stefan Mclean MD Finalized Date/Time: 09/05/23 14:28:48 Pt. Name: MORRO MALONEY/Sex: 1985 Female Med Rec #: [id number] Physician: Stefan Mclean MD Financial #: [id number] Pt. Type: O Room/Bed: / Admit/Disch: 09/05/23 [...] By: Veda Narayanan I 09/05/23 14:[address] [facility] Main OR Preoperative Recordo n 09-05-2023 Main OR Preoperative Record Main OR Preoperative Record Holding Area Document Type FT Summary Primary Physician: Stefan Mclean MD Finalized Date/Time: 09/05/23 12:58:13 Pt. Name: MORRO MALONEY/Sex: 1985 Female Med Rec #: [id number] Physician: Stefan Mclean MD Financial #: [id number] Pt. Type: O Room/Bed: / Admit/Disch: 09/05/23 [...] By: Elizabeth Christina RN 09/05/23 12:[address] [facility] IgA, Quant.on 09-03-2023 IgA [Mass/Vol] 85 mg/dL Low 87-352 [facility] Comment on above: Result Comment: Perf ormed at: [address] [id number] PhD Susan Cadet Performed By: #### 1 [id number] #### [facility] [address] [place] [address] T-TG IGGon 09-03-2023 tTG IgG Qn (S) 2 unit/mL Invalid Interpretation Code 0-5 [facility] Comment on above: Result Comment: Nega tive 0 - 5 Weak Positive 6 - 9 Positive >9 Performed at: [address] [id number] PhD Susan Cadet Performed By: #### 1 [id number] #### [facility] [address] [place] [address] Ambulatory Visit Summaryon 0 09-01-2023 Ambulatory Visit [...] Will Contact You Regarding These Appointment s\.br\ [facility] External Ambulatory Referral, ENT, Dr. Clarke, Needs biopsy of thyroid nodule, 08/29/23 7:57:00 EDT, Thyroid nodule [facility] CBC w/ Auto Diffon 4 Anisocytosis Ql (Bld) PRESENT Invalid Interpretation Code [facility] Comment on above: Performed By: #### 2 [id number] #### [facility] [address] [place] [address] Basophils/100 WBC (Bld) 0.4 % Normal 0.0-2.0 F [facility] Comment on above: Performed By: #### 2 [id number] #### [facility] [address] [place] [address] Basophils/Leukocytes Auto (Bld) [Pure # fraction] 0.0 E9/L Normal 0.0-0.2 [facility] Comment on above: Performed By: #### 2 [id number] #### [facility] [address] [place] [address] Eosinophils (Bld) [#/Vol] 0.0 E9/L Normal 0.0-0.5 [facility] Comment on above: Performed By: #### 2 [id number] #### [facility] [address] [place] [address] Eosinophils/100 WBC (Bld) 0.0 % Normal 0.0-8.0 [facility] Comment on above: Performed By: #### 2 635642 #### [facility] [address] [place] [address] Erythrocyte distribution width (RBC) [Ratio] 28.2 % High 10.9-14.2 [facility] Comment on above: Performed By: #### 2 [id number] #### [facility] [address] [place] [address] Hematocrit (Bld) [Volume fraction] 34.4 % Normal 34.0-46.0 [facility] Comment on above: Performed By: #### 2 947106 #### [facility] [address] [place] [address] Hemoglobin (Bld) [Mass/Vol] 10.6 g/dL Low 12.0-16.0 [facility] Comment on above: Performed By: #### 2 [id number] #### [facility] [address] [place] [address] Hypochromia Auto Ql (Bld) PRESENT Invalid Interpretation Code [facility] Comment on above: Performed By: #### 2 [id number] #### [facility] [address] [place] [address] Lymphocytes (Bld) [#/Vol] 2.8 E9/L Normal 1.0-4.0 [facility] Comment on above: Performed By: #### 2 [id number] #### [facility] [address] [place] [address] Lymphocytes/100 WBC (Bld) 31.5 % Normal 14.0-50.0 [facility] Comment on above: Performed By: #### 2 [id number] #### [facility] [address] [place] [address] MCH (RBC) [Entitic mass] 22.7 pg Low 27.0-34.0 [facility] Comment on above: Performed By: #### 2 633854 #### [facility] [address] [place] [address] MCHC (RBC) [Mass/Vol] 30.8 g/dL Low 31.4-36.0 Fis [facility] Comment on above: Performed By: #### 2 [id number] #### [facility] [address] [place] [address] MCV (RBC) [Entitic vol] 73.7 fL Low 80.0-100.0 F [facility] Comment on above: Performed By: #### 2 916594 #### [facility] [address] [place] [address] Microcytes Ql (Bld) PRESENT Invalid Interpretation Code [facility] Comment on above: Performed By: #### 2 108169 #### [facility] [address] [place] [address] Monocytes (Bld) [#/Vol] 0.6 E9/L Normal 0.2-1.0 F [facility] Comment on above: Performed By: #### 2 983100 #### [facility] [address] [place] [address] Neutrophils (Bld) [#/Vol] 5.3 E9/L Normal 2.0-7.5 [facility] Comment on above: Performed By: #### 2 371392 #### [facility] [address] [place] [address] Neutrophils/100 WBC (Bld) 60.9 % Normal 36.0-75.0 [facility] Comment on above: Performed By: #### 2 861082 #### [facility] [address] [place] [address] Platelet mean volume (Bld) [Entitic vol] 7.6 fL Normal 6.4-10.8 [facility] Comment on above: Performed By: #### 2 318365 #### [facility] [address] [place] [address] Platelets (Bld) [#/Vol] 316.0 E9/L Normal 150.0-500.0 [facility] Comment on above: Performed By: #### 2 [id number] #### [facility] [address] [place] [address] RBC (Bld) [#/Vol] 4.7 E12/L Normal 4.3-5.9 [facility] Comment on above: Performed By: #### 2 163117 #### [facility] [address] [place] [address] RBC size Nom (Bld) SEE MORPHOLOGY Invalid Interpretation Code [facility] Comment on above: Performed By: #### 2 [id number] #### [facility] [address] [place] [address] WBC corrected for nucl RBC Auto (Bld) [#/Vol] 8.7 E9/L Normal 4.0-11.0 [facility] Comment on above: Performed By: #### 2 859425 #### [facility] [address] [place] [address] Gastroenterology Office/Clin ic Noteon 09-01-2023 Gastroenterology Office/Clinic [...] fL Low (08/12/23) Chloride: 104 mmol/L (08/12/23) [place] Absolute: 0.5 E9/L (08/12/23) CO2: 24 mmol/L (08/12/23) [place] Auto: 6.7 % (08/12/23) Creatinine: 1 mg/dL [...] Social H (more content not included)... Normal [facility] Comment on above: Result Comment: Elec [...] 11.0 E9/L Remisol Heme Consenton 08-17-2023 Consent [id number] [id number] F [facility] Coding Summary.on 08-16-2023 Coding Summary. ECYTPmnk74JNl5jKd+PG hlYW Q+NZ5DNZWrY05ssGIcvJ5dF4 NMTElOSywgQVBQTElOSyIgbm JmJW3mrMTfUXPi IC8+YW1yTCMoVvjxpNPga3X1 rYC6E24xma4iPZncfDT2TSIp SmPtcskgh0xzxQv8YQqhKgpi OyBt PEVuzY77WKS9dJ84Gb90cBNh rFZix0dthAa4BpLjKYOlFIP7 bLwhIRtfw9NiVIZhH27fxSUn c2U6 NATiiOsxeFYzWpDcfAP9eQ1s WGajeyuck8levkdsQff3lm86 kJHdo4Z5jYV4C6EpkqC9FHDw bGQg MsvvvUIRcD0yztsol2ppgjun LjReGGYlPRg3SMx2OKJqsGeq QpKjCT36DBA2ZYLgcbMjB6To LWFs dLrlPzA5n1Q0Jq6HV2OCWmqc W7AXLKZVTZgosZI+MH59fy07 J4PtFqlxBre6HBIvBQA2tCL4 aD0n DRHyAJomw8W6bCC9S4NcuxNb xb7gr8rvNAEjIWytB63vfQIm v7F6JYFvvCJ7OJPrlQvrSyLc aG93 Oyc+NICfhPelg6VwTmnrg0cy q7wbvAz3PzqbJFTjycFsoAnq WJX7y8YeXs8rTKXxnVE3iNJ6 aD0i MtNhKcX8TXtlJ379XzXzqXEg QyfoL77jC4SxzDS+PHRyPjx0 YJTzpSlbKN2gH5DeZRAeuzeu bGVm vGyzAF2qOWLwitecWYPzaM5v WINrN3u2IbLwQtC5GKncL0Xn NJLhunbxYt46hK2iTqJpBuT3 MGlu Y9FosxN7YXMmjEZcLWnpHIF7 F66ez3D5TAJzXLFiSVT4lVT8 sG8zdYticmuamTDkrCsdrbGn dGlj AQjcRUvkE810KHTilZdjWxFx ZGluZyBEYXRlOiAgMDYvMjUv MjAyNDwvdGQ+KWEyWXQ5vTwx PSAn xKFgUYcwSs6inGympMoyAZ1b RWUncbicCYLzfM7iSVXjnDJt tWruFF3uKNIwnmtsr884FiAt MHB0 XMKuzLLcV2EwoX4kBdOvWQPq JUWgD8JuhXIgYVdoF622WObo WhK7OESmllQnL6JdQIYenIke OiB0 d4P2Kl8Zd2AyjfcgD9NngHPp TtBgIjiqBEo6O6LmPrjfrAS+ GO65VFJeXS66GSy3ATS9sTih PSdi EKHhB8CncD4wOgIhNQKeYHZq Oyc+PHRhYmxlIHdpZHRoPScx IHQvXhQnuJfsEE4yFg5vAKSg LWNv fUqxxUEyOjXhd3osGEKnNOpu PP8vuPafE9OliXP2HDKqn4f2 Gm52H38cW4XvgKI+PGNvbCB3 aWR0 lD2uBlZkWoB3IHvaX705VyMo nUPiAixpx1sdf0ckuHb0XfN3 VQLzqxVksMikWHZ6v7XuBt85 Y29s IHdpZHRoPSIxNSUiIHZhbGln wp3boP2pZp6+JQXmqIQ8vAR5 fD1jMiXoOnT9QOwyS823NwLy cCIv Xwjpx7ped1ofpFv1EnFhUOSf xbZwxKnwRBR9i3LwDh45F2Bm cLoia0JdApa1ua12fANxz1X2 bGU9 I9CpUSZugcsioWEqiDmvMZ5s VZRnqdpmKZIbqT4hDMFfX7u2 IpYvCkI4MIuhK0ZdimL8HLJr bGQg KHCchGEYiU6iywwol6pxlieo NsEdRGUzTSi6HWu9GXVqmWum YkTmQKT9ZiA4MOZ6nZAuiB2w bGln wszlqX6eXng+JVE5lBNesYCX IU2jQvtluDV+LLLkRHR6mGll GXtcWKWkrX5fLPNvO3h4LsLs LjA1 LUshJ2WhurC4CQMyjEKcOPGr fLSPvF7wswavk1pxikuxCeLs DBCdFDh5YKq6FAQxhFlnLeHu ZWZ0 DwF8GYL0fUOniX6uwDlxeyqg dU0cNmi+KqsgoBxiBSR3ZVo4 B7LpDss5WNTwuTjoCI4bnXTc ZGlu Rq2oqXaucEftWM4uEHOvnhez k624WtGeb8aiOLJncPSpYNhl RPP6W02tl2L4XBBwBAJxXSX0 dGV4 gT7afQedxlwebMKkdIupmkOv oWgjRVaxLKatP724EDLieTdt CfBmOYs2P5YoLbt2FBPkaDgd ZT0n fPReTZpaWl7reCucgLgcYH8z UDMcqctyn380ZzCqe5zbXMKs xSFhUZmuUBQ2Y97yd8A8FXRt MDAw XLV5lHC0yD4uyIvuxkghlDVd cYmwurVbyDhmWKxaBGomM836 HVYyoFkhRaDhdIr9R5NyQdo6 ZCBz vLqbEW2pzUUnBAheHc7igZzy pGmuTB2zNZYhbifyk590ShUd j7dnYAZbkCUlZCdyWUC6D09f b3I6 LEAfFUYcMDH0uQO1zX4muPin bjogbGVmdDsgdmVydGljYWwt SRfhI073OREfxXlqZpQodEqz bnQg IHswPFu4M8FxLkrnqZV+PC90 HRGiSR77dVSkiFZec7yfbVk2 QaUqLYYcUYR8gYuvOFcnr1Sc ZXIt W23tiBKii1Y3XLFkgImulCRc AoXllGM1zP7dAZyaefoqj7fl pjswXjsww5nqqt31bI17S11j IHdp PVOvZHBpYZRxHYAgkLwjmq7i hX0wCz2+IDDvxNG5gSM0cH5m CWYxKpR9DMrrD123ZsEfoKQr Pjxj o1rwr9rswQk5KsW6XURrkeNx hOaaAES0j7YuFc73P70pZQtj MDAbGSWcJKUbIBPuoYkwbf6l dG9w Ii8+XPGhlTT0jPI5cL5rLvZn JlB7GWsiN855TxThmKFcXxqb Z70iM8XnjKC+BSIzLqc8PKTb dHls JK8dsSGvNLsbRi0qONT5BxGs JeLiZPpjN8JeHGGgkpunrgdp fCC8JFYwSSNxvR98Xx9wfLqd MTBw gQPBrC5olardq2fkqqoyEoKt ZIXmKYs7CIx2WJBgmYkmUbGz VCU1PuJ2WWN8uABqwM3qrFkf bjog jX2eK8RzSBPixftgRe46cW2w PaYiMdH9PMtsDqp+Z8lDMeba YWrWFVnBDH91SJ85aSGcq0P8 bGU9 U0SqNXMrbkraskonxMS0AUXw URWwtG98eMIiGBdsWz5zr4G9 v577BMEfPWArzL55Hr1sbNvh MTBw uXXSaR0gdfevn7janyciYtCm PGJqPNo6HOu6UXSunKcwSrMs ORA5UaP4ZHK3gVKskC8xrCqy bjog dV4yYlu+DFekUXkjPFl9NTdq dGQ+LVXsIPF3dCclGEikLORf mL7fSQCuF7z4PtMuPzN4GEtu O3Bh PSNldeltWf89pL0yErRlKfI5 COtvP6WwcuQ9BHTquSRaUOkg TXG9F21uc1J7UTLwNPFvLSU6 dGV4 cW7cyKghofqwdDXpzKqepxNu vSxqCMtiZYbpZ410ACFtlVht IqS5IEhhVXAuOD93BR63eSQc c3R5 gAU1K3GtXNCylzfmrxyirOX7 FAZqCJWobK21vEMnIIfkCc8s a6O9u539NVMePUKrdS51Yc5d dDog AKEbsJZJuQ1zszkex4bpsjfz EaLaZLSuYCl2PRg0KZRkiQwd SjEkZLC1BtJ9GAA4uZYvfD7k bGln tknlrT2xNma+GwWyYZbdUW86 VV01pSTda3A2qDP8E7XoKIAx tldnrmdhlNE8KPKaOQKhhE60 cGFk EYauPh2fj8F0f584LUVfLWSk tK16Cu1wvCdeFLMeqALLbP3c csbvi9rbrvdaDiXvYPLiCVg6 ZXh0 UXKkpIasDwCqHBE7IzN1BLU5 wSNflV5wkVhmxxkgoN2aNkt+ X8Q0hFE2mGOjnIgbnPL+PC90 cj48 C0DzDanpUby6UVAmJJU4fXS5 iQ8qGSWgFLnqw7F6dDK2O7Tb nzEpte9bt5vzGZXnNOauF64q bGFw f6Q4TVTunUR6SRMsrIynYyOy wD66Fow+AJLqaAmkf4RfWxgg s1xbp6zgfWl9GeGaFQOgawKs aWdu WYL3h7RfSw70E57yBAthMGNt PVFzPTBpAFNeaTwsmf6jqT0i Ii8+HAThjML8tWL3wA9aEaQx IiB2 PAkkP243IvVkqQOmPzzfl6mw u0ceqLu1QqGgPHQtilMyaXxy SBZ6k1DmYf37M8RmqUjrj9Hq Pjx0 wa26jIOpp2Z8gME6X1NrQMLx rdijpEUszFbtDN4nRKQqkisx WJPzvU2qXBTsU3e0OqQxFmM4 MGlu S4TxypI1IWYnlDArTLOwcJMN jW8yocuby1ppabauPxYoCNEs UMj1AAl4ILOyyTpnUpXjBNV8 OyB2 PGB8fWLgdJ7nhCzyeoqdkP8h Oyc+FOd6x8tizKFfAN2pqOG2 JT75PN42mXPwk9X5cTE5I4Oy ZGRp rzgwwxpztSI6GJOiRKQycK13 Qb7vtGdsNp9wROMvTKC6RSYg ySOgV9QfqW8kCzOdBPOcBWCd O3Rl rOKjIXbsJ020QIhdNxZ5TUIx sgPcM6NdIQQsxOwcNiC5h4W1 Vi7PVV82ZO84BG34lNRui8K1 bGU9 Q5XbCPFulxebeaqwzXZ5BBKd HNGoaR56Db9znJhrBw7zGTQg ZSF9GBEzwYShL8DsjU0eSmCf MDAw YZKpE1QlaIZvLLygV560AElv YiW3UJNcgaJnV3LiRRAghKtb HqO4z7L3Ns0BUb45ST42LX25 dGQg i3P0fHT9Y0PsQZSiputwfwyo uPS0ENDqCADfvX58Jm0zcEkm Dt7vRBZnIYL4WVLepHAaD5Br bG9y JtWsBJBpKJRwU7YecQQuXToc F863ZPipXjS1KDCeztYgV7Na LLConFovNqV2y9E7Ko0WMGoq cjo8 U0PhLnbisEF+GU24XIGqBS78 dYQdjKIng9mqhAi4DuRrLABi UQQ5mGnaHTlrj8JbNXWjG68o bGFw e1X2HCAbtRrsr (more content not included)... Normal [facility] Consent for Treatmenton 07-23 Consent for Treatment [id number] F Normal [facility] Erythropoiet Lvlon Erythropoietin (EPO) Qn 51.2 mIU/mL High 2.6-18.5 [facility] Comment on above: Result Comment: Top [employer] DxI 800 Immunoassay System Values obtained with different assay methods or kits cannot be used interchangeably. Results cannot be interpreted as absolute evidence of the presence or absence of malignant disease. Performed at: [facility] [id number] PhD Susan Cadet Performed By: #### [id number] #### [facility] [address] [place] [id number] Oncology Progress Noteon Oncology Progress Note Chief Complaint Iron Deficiency; going over results, states had infusion last week. Diagnoses 1. 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 Internal Ambulatory Referral Iron Level Iron Percent [...] Contact Information Jose MAY, Quyen Pozo, ONC [facility] [address] [place] [phone] Additional Instructions: refer to GI to consider endoscopy for iron deficiency anemia.- if none in [place], refer here at [facility] folic acid 1mg daily- send 90 day supply with 4 refills to [facility] cbc, cmp, iron studies, folate in 8wks follow-up in 8wks with ACTIVITIES COUNSELOR Medications Caplyta 42 mg oral capsule, 42 [...] (Peripheral) RR (more content not included)... Normal [facility] CBC w/ Auto Diffon 4 Anisocytosis Ql (Bld) PRESENT Invalid Interpretation Code [facility] Comment on above: Performed By: #### 2 [id number] #### [facility] [address] [place] [address] Basophils/100 WBC (Bld) 0.2 % Normal 0.0-2.0 [facility] Comment on above: Performed By: #### 2 [id number] #### [facility] [address] [place] [address] Basophils/Leukocytes Auto (Bld) [Pure # fraction] 0.0 E9/L Normal 0.0-0.2 [facility] Comment on above: Performed By: #### 2 [id number] #### [facility] [address] [place] [address] Eosinophils (Bld) [#/Vol] 0.0 E9/L Normal 0.0-0.5 [facility] Comment on above: Performed By: #### 2 [id number] #### [facility] [address] [place] [address] Eosinophils/100 WBC (Bld) 0.0 % Normal 0.0-8.0 [facility] Comment on above: Performed By: #### 2 [id number] #### [facility] [address] [place] [address] Erythrocyte distribution width (RBC) [Ratio] 24.6 % High 10.9-14.2 [facility] Comment on above: Performed By: #### 2 [id number] #### [facility] [address] [place] [address] Hematocrit (Bld) [Volume fraction] 30.8 % Low 34.0-46.0 [facility] Comment on above: Performed By: #### 2 [id number] #### [facility] [address] [place] [address] Hemoglobin (Bld) [Mass/Vol] 9.4 g/dL Low 12.0-16.0 [facility] Comment on above: Performed By: #### 2 [id number] #### [facility] [address] [place] [address] Hypochromia Auto Ql (Bld) PRESENT Invalid Interpretation Code [facility] Comment on above: Performed By: #### 2 [id number] #### [facility] [address] [place] [address] Lymphocytes (Bld) [#/Vol] 2.2 E9/L Normal 1.0-4.0 [facility] Comment on above: Performed By: #### 2 [id number] #### [facility] [address] [place] [address] Lymphocytes/100 WBC (Bld) 30.8 % Normal 14.0-50.0 [facility] Comment on above: Performed By: #### 2 [id number] #### [facility] [address] [place] [address] MCH (RBC) [Entitic mass] 22.2 pg Low 27.0-34.0 [facility] Comment on above: Performed By: #### 2 [id number] #### [facility] [address] [place] [address] MCHC (RBC) [Mass/Vol] 30.5 g/dL Low 31.4-36.0 [facility] Comment on above: Performed By: #### 2 [id number] #### [facility] [address] [place] [address] MCV (RBC) [Entitic vol] 72.7 fL Low 80.0-100.0 [facility] Comment on above: Performed By: #### 2 [id number] #### [facility] [address] [place] [address] Monocytes (Bld) [#/Vol] 0.5 E9/L Normal 0.2-1.0 [facility] Comment on above: Performed By: #### 2 [id number] #### [facility] [address] [place] [address] Neutrophils (Bld) [#/Vol] 4.5 E9/L Normal 2.0-7.5 [facility] Comment on above: Performed By: #### 2 [id number] #### [facility] [address] [place] [address] Neutrophils/100 WBC (Bld) 62.3 % Normal 36.0-75.0 [facility] Comment on above: Performed By: #### 2 [id number] #### [facility] [address] [place] [address] Ovalocytes LM Ql (Bld) PRESENT Invalid Interpretation Code [facility] Comment on above: Performed By: #### 2 [id number] #### [facility] [address] [place] [address] Platelet 372.0 E9/L Normal 150.0-500.0 [facility] Comment on above: Performed By: #### 2 [id number] #### [facility] [address] [place] [address] Platelet mean volume (Bld) [Entitic vol] 7.4 fL Normal 6.4-10.8 [facility] Comment on above: Performed By: #### 2 [id number] #### [facility] [address] [place] [address] RBC (Bld) [#/Vol] 4.2 E12/L Low 4.3-5.9 [facility] Comment on above: Performed By: #### 2 [id number] #### [facility] [address] [place] [address] RBC size Nom (Bld) SEE MORPHOLOGY Invalid Interpretation Code [facility] Comment on above: Performed By: #### 2 [id number] #### [facility] [address] [place] [address] WBC corrected for nucl RBC Auto (Bld) [#/Vol] 7.2 E9/L Normal 4.0-11.0 [facility] Comment on above: Result Comment: Resu lts are consistent with previous pathologist review Performed By: #### 2 [id number] #### [facility] [address] [place] [address] CHEMISTRYOrdered By: SYSTEM SYSTEM on 08-12-2023 Albumin [...] 08-12-2023 Albumin [Mass/Vol] 4.5 g/dL Normal 3.3-5.0 [facility] Comment on above: Performed By: #### 2 [id number] #### [facility] [address] [place] [address] Albumin/Globulin (S) [Mass conc ratio] 1.5 Normal 1.1-2.2 [facility] Comment on above: Performed By: #### 2 [id number] #### [facility] [address] [place] [address] ALP [Catalytic activity/Vol] 92 Int._Unit/L Normal 21-98 [facility] Comment on above: Performed By: #### 2 [id number] #### [facility] [address] [place] [address] ALT No additional P-5'-P [Catalytic activity/Vol] 10 Int._Unit/L Normal 6-46 [facility] Comment on above: Performed By: #### 2 [id number] #### [facility] [address] [place] [address] Anion gap [Moles/Vol] 12 mmol/L Normal 6-16 [facility] Comment on above: Performed By: #### 2 [id number] #### [facility] [address] [place] [address] AST [Catalytic activity/Vol] 19 Int._Unit/L Normal 5-43 [facility] Comment on above: Performed By: #### 2 [id number] #### [facility] [address] [place] [address] Bilirubin [Mass/Vol] 0.4 mg/dL Normal 0.0-1.1 [facility] Comment on above: Performed By: #### 2 [id number] #### [facility] [address] [place] [address] Calcium [Mass/Vol] 9.5 mg/dL Normal 8.9-11.1 [facility] Comment on above: Performed By: #### 2 [id number] #### [facility] [address] [place] [address] Chloride [Moles/Vol] 104 mmol/L Normal 101-111 [facility] Comment on above: Performed By: #### 2 [id number] #### [facility] [address] [place] [address] CO2 [Moles/Vol] 24 mmol/L Normal 21-31 [facility] Comment on above: Performed By: #### 2 [id number] #### [facility] [address] [place] [address] Creatinine [Mass/Vol] 1.0 mg/dL Normal 0.5-1.3 [facility] Comment on above: Performed By: #### 2 [id number] #### [facility] [address] [place] [address] Globulin (S) [Mass/Vol] 3.0 g/dL Normal 1.4-4.0 [facility] Comment on above: Performed By: #### 2 [id number] #### [facility] [address] [place] [address] Glucose [Mass/Vol] 96 mg/dL Normal 55-199 [facility] Comment on above: Performed By: #### 2 [id number] #### [facility] [address] [place] [address] Potassium [Moles/Vol] 4.5 mmol/L Normal 3.5-5.3 [facility] Comment on above: Performed By: #### 2 [id number] #### [facility] [address] [place] [address] Protein [Mass/Vol] 7.5 g/dL Normal 6.0-7.8 [facility] Comment on above: Performed By: #### 2 339404 #### [facility] [address] [place] [address] Sodium [Moles/Vol] 135 mmol/L Normal 135-145 [facility] Comment on above: Performed By: #### 2 [id number] #### [facility] [address] [place] [address] Urea nitrogen [Mass/Vol] 18 mg/dL Normal 5-21 [facility] Comment on above: Performed By: #### 2 [id number] #### [facility] [address] [place] [address] Urea nitrogen/Creatinine [Mass ratio] 18 No Units Normal 10-20 [facility] Comment on above: Performed By: #### 2 [id number] #### [facility] [address] [place] [address] Consent for Treatmenton 07-23 Consent for Treatment [id number] F Normal [facility] Ferritinon 08-12-2023 Ferritin [Mass/Vol] 99 ng/mL Normal 11-307 [facility] Comment on above: Performed By: #### 2 [id number] #### [facility] [address] [place] [address] Folateon 08-12-2023 Folate [Mass/Vol] 6.2 ng/mL Low >=6.7 [facility] Comment on above: Performed By: #### 2 [id number] #### [facility] [address] [place] [address] HEMATOLOGYOrdered By: SYSTEM SYSTEM on 08-12-2023 Anisocytosis [...] 08-12-2023 Iron [Mass/Vol] 40 microgram/dL Normal 35-153 [facility] Comment on above: Performed By: #### 2 [id number] #### [facility] [address] [place] [address] Iron Saturationon 08-12-2023 Iron binding capacity [Mass/Vol] 360 microgram/dL Normal 250-400 [facility] Comment on above: Performed By: #### 2 [id number] #### [facility] [address] [place] [address] Iron saturation [Mass fraction] 11 % Low 20-50 [facility] Comment on above: Performed By: #### 2 [id number] #### [facility] [address] [place] [address] Retic Counton 08-12-2023 Reticulocytes/100 RBC (Bld) 5.1 % High 0.5-2.2 [facility] Comment on above: Performed By: #### 2 111655 #### [facility] [address] [place] [address] Transferrinon 08-12-2023 Transferrin [Mass/Vol] 257 mg/dL Normal 200-370 [facility] Comment on above: Performed By: #### 2 [id number] #### [facility] [address] [place] [address] Vit B12on 08-12-2023 Cobalamin (Vitamin B12) [Mass/Vol] 484 pg/mL Normal 50-1500 [facility] Comment on above: Performed By: #### 2 561438 #### [facility] [address] [place] [address] eGFRon 08-12-2023 eGFR 74 mL/min/1.73 m2 Normal >=59 [facility] Comment on above: Order Comment: Order added by Discern Expert. Performed By: #### 1 [id number] #### [facility] [address] [place] [address] Coding Summary.on 08-11-2023 Coding Summary. JQMXArnm70MDx1bDq+PG hlYW Q+EV5BATOmZ59wyPTqnV4cR5 NMTElOSywgQVBQTElOSyIgbm KkLP9gwSJtEYLy IC8+MQ7dKOFhCyqtkBYrf6Z7 yWJ2S22zpi0kJWomiTC3PMYn GiTzkulxn0qxsKt0LXarFngn OyBt LVPocN61IIE2eF31Dl31vXZb bYZnn3aahAc1XkJaNGZrUHM7 aMzfCSxdq0QiILHfY49eoZBz c2U6 RAQefUcpnFZvQdVjfTJ2yD4s NPqjgfzxu2eyrdeeRkc9ev69 zUGog4P6yCC0D4AloeO3BDWj bGQg XfdbyOIZuE0yvabvs5kxatsq JbSwICLuVHc2QHb5GLOcyCwm ShSgYR20WYD0YXKvfwRkM6Av LWFs gRnwBdV6d5P6Ei4SA3IOBhxa C9TOCTKSNGeezRC+II85in02 E4RgAhhgWwu8OKHvGYW4pBU4 aD0n APReMVlmr1C2eKL8L3SrqcWf ig0st4tuOXQlXBmrE24zcSTi e7M9CEQepSS4CBEukDbiYkZy aG93 Oyc+WOMtpQsqg4ZrZutaq7qj t2plwEh8JqbfPPNvgyDdtAwv BPZ6f9JuHr1kPARcwUO1wJG7 aD0i TpHsWbQ0EZjsT916JkZdzUDr JqdfT01gJ9FagAT+PHRyPjx0 APNxaGefJG6gI8OuDBLqmmcd bGVm hLcpYX0xNBGekehrYWKxxB2i PISwY7m0AdMiWbX0EUgvQ4Ei HCMnmpiuEg08nM6uJiChKkU4 MGlu K0GhksB2KTQvaYEeTSawNON5 W84xw9A7IJMmVSBfUOW4fTI2 qV9cyNngzraxcOBiqCgkomKi dGlj UYtoVOfiI663WJKcrMfjUcMh ZGluZyBEYXRlOiAgMDYvMjAv MjAyNDwvdGQ+MALfAJV3gGjx PSAn nMMrCZejZp4djJwdsRztXR9t OMRklypdBHIfsH8gMIYlwBNv aJseLI8oCSFwiejcj113BiLy MHB0 FMQubQNeH5ZucB1lTyEyKVKg VNSkC0HomHXpWJctK543RHwx MqJ6ZIMdgeAhE9AwCRIypNpt OiB0 f6Y3Zg5Hm0SalytxH0LfeRKu QvLnBegkBRy9S1HuYubinSJ+ YL71EFOxVJ57GEq4QGX8qIdu PSdi VFUyF3NenZ1oChScNPGtZGJu Oyc+PHRhYmxlIHdpZHRoPScx XUPiOvYakAicXJ1vOh8xXMVo LWNv iHlugLByKaHrh4qyNEQdDLyg EQ2wtVpzU3CtqUP7FUNqg4m3 Gl38D42qZ4PmxLV+PGNvbCB3 aWR0 sV7uNmMlKdH1ZUmeH344FuNf eAFsTdeye6zsm9kleTy6RrI1 LHRnpzXljCqvHCK0c7SzJq46 Y29s IHdpZHRoPSIxNSUiIHZhbGln oh6axV7nQz4+TYSxqIG7oOU7 sL5yBkOpDbR8LDjkV478SrOq cCIv Legkw5vny4bmfTy0YtJwWJQs uqKjgTmxEEH3l0EsWp92V1Fb cDtdr4XuBpj4bh90iSZfh2D2 bGU9 J1SbGYJsmaelzMGhiYjaLP8l RDLhilfeSNHozH4nVOUdR0z4 JfGeDrU0XYxhY5TrafW5WHRx bGQg PZSsbYVHsU8xvyezj1eopmih CrMlGPEqZWo0TTi4QXQgvIub EwCnDPZ1OkP0SCO6xQYevA7x bGln xreqjD3gXrb+CDT5tWQouOTC TV8rHphesPU+KWCqDNM7vVtv UTniBLVeiK5hGYUmM3o6NqOm LjA1 BJipQ9JitjX0FULxqZNmVHEr aKWSrA1hlviza2fanspoAqDj UOIvSLb7KHb5FOThhPstBgXg ZWZ0 LgM4XZF6kTXrkH2dmXmgzzlj tF8oFno+BtogkFlmEOA8FCt8 X9IxBqp2DFGzhCliXI8qaRIf ZGlu Ex4cyLhgmUiyZT2qUPLndghb s829ExIts1dtFWGpvILsTYjb EFP1Y80rx1Y0FLHxXKHcEZR9 dGV4 eM0uzHctlkuooULjsIdbjbGq jGriPFleMUkbO187GJTwiQcr XjDkBTb3T2UbCvh3QUQwvXxo ZT0n qXXkMGnxMv0eyFipcDcnRQ0x HTGwbwtrk848JtWan4aoMKMi lVDrSRcfTKU4W01yp1R6TRHp MDAw BPF7fJD1nK1xaDbtmevvbOZe oPxyjfTwvRejXMfsQGuiR918 YGZwsXtmNaXtpPp8W4IdThi9 ZCBz vJgmLF5seDCgVSidWv4gmNcj nGnbTL6mFPVjzxsnk700AfRi f9yeJKMcwUFcGBokKUS1S63e b3I6 QJIfVMHrVZU2wCM3nR1kcEyq bjogbGVmdDsgdmVydGljYWwt DFqdG730AMSxkWzbHuOopFmd bnQg FGcmFVi5O7IwRhccoGV+PC90 VEPkXK36sRLxpEEws3uzkCz1 CiRlKANiZVG7nWusERqcs5Xs ZXIt Z71llDYkl6Z1RSUquYhnoKDa CcTasNJ0aI4hDVdiwazop6ak zaaaCxaro7qwmf84mW66S15i IHdp TNLxFJYkSOMsFSRziHjiyx7d dO0eOb5+IWYkaOF0sVK8iH9b XLWrVfF6QFaaH770JqGkmTFu Pjxj g4ukv1jqxZr3LcR1OPMyabBt wAoaWZS3z5FhGl86I39sGTmv DXJbWBClIQXfSQBxpYzwjq4t dG9w Ii8+JDCbbQV7eUV6aT2qJjXc NkG7NYfeZ927WwGyhBUmSsey F16qT0AsjXT+MNUhGmt4MPPo dHls CS6vdEHrBCoqMn6iFAT0PuWa OdDbCEabV7VzRXXymjnhjpeu iXB0TOWyHGBdlW28Ya7bhFmp MTBw gZEXuA4efyaqe3hljvgdVdDg PDVxMPf0OYb3VEKtgLtaEnQz XFH3HzA2WYM1aHKncO7xoDhx bjog aO9cN4NfZCDxchveOw46lW3u LzVrBtC2HUnoJmn+Z2yMBgqt XWdWZPoHIJ69WV14wSVer7I1 bGU9 M9DcZZNqgycyjfaanRO5EXMg NUBpvG55uFPtOAnlNz8ow9R0 y945UZOvBHJbrM28Nx4dcKls MTBw kNDRfX4angukt1ehhwyuWoJw OUFyBZv2IUf6MNWxmHydHuQe NKN3QkK4DOF1cPXdxK6ylMgk bjog lC3sSrd+MQxjTDpoIHq0ZBmj dGQ+GTBcSMY5ePtoFVaxJRPj zG0bGTVlR5q0ZuNmEqS8MWeh O3Bh HXJwnrkcDa03wM5xOsQxEuB1 TIhdR1QbirU5DUZsnRAzCDxz ABV6Y07ak1V0POUfVWNsNKJ7 dGV4 bW1jkHpiloiwyFNuxDinjxXl oRnsKRnnLLaeG802QTVudQyi JeB0XBleFFOySQ76FC32zKKt c3R5 uOZ7Z7ZnVNEskupxqxkbsQP7 PRVvONIfpT58cODjHBglKf9m v9X3i644YVUlQTGkgA35Ap6e dDog ACAdwASIqG4xzpjvz7qdpkyw InTvRELdBZc8QBk0UIVopVrx IkSfRIM8KcI8FCD1jXEywC1q bGln nwvrqX0eUcz+DzKgNQboKJ06 CR91hYGar6U6uUM8I2LrFMDk fnoydhwkpBI8PELfBOUtlN65 cGFk KAmvCd1ay2Q9h490OMObJCFl tC30Bz4bpSyfXOFflPFFyP4g mfydz7yjqgppTlXoQRNjEFx6 ZXh0 ZEZgeEpaJpUiSWO7IuA0EEQ7 jOAzpP0lhFxktkgauQ2cPtl+ ZzHpzSTzsE0lCI10IG23H6Ik Pjwv dGFibGU+PHRhYmxlIHdpZHRo UDiaMEViBuOmhIsnKL5lEy5f PPEgPQZknGzwqOYpWpPwa5hj YXBz SEbfCY7cfGizS6XhhQD2NGJt m6t1Rk31W92fK3LrnBE+PGNv cAV9gOV3eP3eMgOpSxD6ZQgk Z249 EqBwrVCtKgljq9bkw6gvuSo6 ZoIfIEBhbyVnqNhwYWS9q7Fv Rt51Z12gENcxLWSrDCYlWNAz IHZh eXorfr6kyA6gWm9+PGNvbCB3 rGT9sX3nCsLsKhI0UPorW982 BhTqtCUjBkawB08qD9YadEO+ PHRy Qge1UZUhnEnwTR2osKJnDBoh Mp4fODJ9SrPtRtYeHVqwW7Ss NCXixzycqrwzzBR5FIXfKIKw aW47 Zf8nhHimSb7eHJTwNZY5POHe lIQuM0LwxQ8gMiBdDBJgDAPr P8KxzZMiLBsdQ322NQwaWhB3 IHZl jtHzC1MwHOOxuJrxZwO8h1L7 Dl6LiOrdtCTmRL5qCdAnHHh5 B9RjCdc9VWCclGjgCL0hgZKo ZGlu Lu7vtPbdiKvbGW8hBHVattcr p373GvDjw3gxMJEajWQmMXqq NLG5B08wp8R9YDTmKEDxRQN1 dGV4 zY8ekZvpptgebBOyiRurtxFd mHciTXtlNWunG122EFKoyYwt XrSPKsv3V7ScPyt2SDQbaSjq ZT0n uTExZQjnCs7ulIkpxAmaQH1x DCSvmhhlg356TlPqk9wwIMFq yANbQXupEDV5J63tc5V5WRIs MDAw OWM7xAX3uB9isWqjulmqmYYv bMhanyRizEpnJYfaHVrkA840 ZTOdjIssDz4GRzq3N5PjUnm8 ZCBz qQwzHD7kpYZmFElxDj6rhXbw oHnrAG0dITYepkrba316WjWk x6cpEIInuAKrVNhlAVO9K80q b3I6 QHAlPQIgBKU7qDB4nT8uaGrb bjogbGVmdDsgdmVydGljYWwt RVcyG608NRAvuFgvXhAmeQWx Ojwv dGQ+HO22ow81K8DqNckaNjg3 UTNeAOV7dTI9wR9pDOSvAPlp m4O8zHI9R9KfivQbve0nm4mx YXBz GKldG41kkYSsp (more content not included)... Normal [facility] Coding Summary.on 08-10-2023 Coding Summary. OKVZRsrm37QAj7yTb+PG hlYW Q+BG7SFMHtC50ejPMycN7rL8 NMTElOSywgQVBQTElOSyIgbm QtBI1jjLPrXABx IC8+AU3tNUQiQmzkhARss6S2 wJT9O11jdv8bVLkqfTG3QVRc IqOcsnrwo0qxfQc6XBviTnfm OyBt PVGhoU09TGU0yN77Ka66tRMp tQVop2lrjSa3NmZeTNMmEOI7 aEciUWmbq3MoMEZnE76giENe c2U6 MHUotUjbrXEqRaSpyVY1jA5e WOwzzfddk4flxxfsIpp6oe59 aPBdj2D6iYC1I7IsyjJ7MDQh bGQg JtehvRTKpF1naiagq2dsvsri UvVqBBQmNAz7DFj4NVBctQvc KwCjKS86FOO8DUYsthIoO6Zo LWFs dHrdPfP0d4Q3Mv8RJ2WUZauw U9HCGDUNIVgfdRH+JP93gf50 K8OsRgieTsu2XOOaLYD6wUG4 aD0n DLCdPPxgw8F3sRZ7K9IiowEk qx6ga2pbBLDyBZviW36jhJYh t3F2DUNepZA7TGInyWtvCeFq aG93 Oyc+VEJsuUsbc4MsRlhuy5fp t8zqvMm6LhkvIMYxaeXdsCoy GHZ6v7GzKx9uHUZjdWK8mKN0 aD0i RlWsOtK0FRsqB080LbKgoYDh MnvqG19fL7UnkXC+PHRyPjx0 GWUqlImsOI5gL4GdFUMjsvxd bGVm uOepZD2zFAVehixrDGUueC8s ZATcK2r7QtQqEeJ8AVabD8Oc UPKgayifNd98uG2bNzVrThN5 MGlu V9SzesR4JXVwxHUcPHruDWF7 V88js6E0LTBfZCMqTBN9jTS4 pE1bhXqicrqghGZrzPrxqcZx dGlj QCtzMForG178VPWkyVwaVdFc ZGluZyBEYXRlOiAgMDYvMTkv MjAyNDwvdGQ+WDJbISB0rYbs PSAn iOOxFJeySp8fyClluKoqGR4l OIWtfthgNHYgkK6iNXVidYKv kAcwKU6xXBInylsbc533RsSw MHB0 UQMnoZTjJ6GmvH5zPdAoSFVu VILzN0CplELlNVppC407GGpj MaF8UVVzvsRyU0KoCOIirQwt OiB0 k8U9Cm5Gi7LgjbivS5JwkSQo VtKzHbjmJIa5R7NrEgbeyDC+ NJ66BTVcWD42YQr5BKQ5uGpo PSdi PDXuI6XllZ7wDmGqQCDoRJLp Oyc+PHRhYmxlIHdpZHRoPScx SWBcJbNeoIoqKS8iFo0jZTQq LWNv zMezpYPbLbEqz3mwOARpHQyl II8aaNahU8GgqBL6RJPvs1t5 Ol88U26qE1CdgZO+PGNvbCB3 aWR0 vS8yHlUrWcJ5GFsgZ022WwNe aMApZzzoo1ifq4zoyRa2UgO1 MSTryyPqjVkjHOS5x8IsBw94 Y29s IHdpZHRoPSIxNSUiIHZhbGln um0qmL5aDf1+OBPllUU4eZN1 pG1hKkZuAeO9NHowZ972OxXk cCIv Epfam2xpz1ojmTs1HuBbRXGg qhYdiItkUWX6i7IxKk95E6Ar sCbby9GnCui6yq99bNVbi3D2 bGU9 Y3ZpYQAhzixxtIAdoVuxGG6k HTPmouwcRONpxQ2mODRjI7p2 VlHaWdG8OGziH7VfghL0EFQl bGQg LUCxcJEElB3ummewb7avphzu SaZfKQHvBKa5OYc3OWBalNrv PiNnXSO2KmJ7JXT1iWLimU8w bGln qusckN6rSxr+MNI8eAJtsFVQ IN0zWsdvkIM+ECWsPFN8dZgv SVuhYAEagK9yXNQgA4q6YyOk LjA1 UTkwF7KjwzJ8DGXwaCDuJOWe tVTQvE1dmpryt2yxfjeeDxFn FNEwMAm3OIa4VDZqiBihPfGj ZWZ0 VfW6TVP2iHAemT3wxSvffaoj iI4cSnz+YeikiEctSUW2XRu6 H8VoPcl5GJSyyHxpWF6kiWVt ZGlu Rm8hsKlbbYsyOQ8aELWslyuk y744BfEtc1anTOMrsRSuLXxh KWO5D74mj9U1BOFeCZZwTJY4 dGV4 gC4uhTzjvycvrGTyuZprutVv lVhuSEwdNPmzA279XDIdnYbt CwWuMCm0N9MzSew1MWDtvFth ZT0n xDQyHZsfJa0szWjiqIluGA9g HJTwvcysz672AhGyk8myXGEx uFUsUQcfTKJ0L57yl5I0ATIv MDAw SJS0cYZ9bQ6rmVronmpdqDFs mLrxbrOxvKgtNQajBJfyK693 XYPrzQlyQsNaaAd9K7IeDvm9 ZCBz rXuoIF1qrGApDKeiBy5gwRww uBqmIV1gMHTojndtt468WwAz r1bwAJBrjAPeCTlkNGE3N85u b3I6 BATbMNLbITI9lSD6fM1vzYhw bjogbGVmdDsgdmVydGljYWwt MUpyT948XNLdhCipFxUtuIix bnQg TUaePIj8C8MaGhivrIE+PC90 UYOkER51jBVkoJRxw4xigIx5 SiUjGNWjSFB9nEhaDCmoa9Ae ZXIt N21toZUba2R2XJDneRpsyQAn FkYohJZ9pI8xIAkmsjtnj5yb ybrsGysne4sewx29zJ56Z22o IHdp EAYiWUXzWNPuZGRonIdfit8t rS2jYs7+DARkoOJ6hKC4pS8w NIIvZvQ0OUybB529MhIgaLCf Pjxj c7cqi0shoCx1IkG4INRhvwSy nDdbUDC2p8AmAf06V67gCLmc MWPuHRGdGEMrHLGlvAsjpp5c dG9w Ii8+HSBctOQ9jUF2rQ8lIiXy PlJ8GLylU559LtSxwDZpGznw S51kL3NyvXG+KSOiVyc7RGKj dHls TK6yzDVfZWjrZc3wKCR7KiSm IjPxRPaxN6NaMMKgzwxbcfrs cYQ2POTzRVQfwO46Mv3dkNuk MTBw uOFSzW2hmtojd6eshifzRoNg DVKkEBy5AJe6AHTvkJyiXlSd TVI3MzF8MHN6eARlyL2daUoh bjog dU0gV6VgJMWexxhuHw37zR7z TbHrXzK7TTzsTpg+W8jMRpko MCnLASpSXI16PQ00eKEgl4S3 bGU9 Q9MdWRAwbtnbrfcxsDE0VKXl LNSkxO11tAZoFIglWz9ms7Y5 p894QBAxLEAghE03Rk9tzOjj MTBw iRFSfH0adawxw9cofwvxJgMl GGYhCUg4GCt5GPGcjOcyYxDy XCJ9AeL0GFO3lLXwvL2lnJdn bjog gR9gLka+EDgbOPuxUBo7RIxl dGQ+UHRtJMT1yGegJRmbLGNn hP4eDAWmR3m3IlDvGfO2GMal O3Bh UQYfpckgVk18sV4uJlGwVfO8 KYszI9HddiE6CCPmnQTaYUiw WDJ0B02xs2Q3YKQyBEDaAPM5 dGV4 rR8hcDnezabalMIloXadggRc lUidBIzeBPkrQ477GPIhuWiz FhU6CLteFLMxET65ZH42mLBk c3R5 sSC4X5GcIYSwwdcjupojjAO7 KQOgIRQhdU26zTWnMBfkCj6m z3H7l542HURgAHUlzB31Ok7a dDog XZMusBYHuD2psqcxh3xefmwd JqZkHCStALj0DPo0LVTlsGct ZrJxVBH8XoS0WDB3kQCjrH5s bGln kulesC3iDyj+NwOkCRcqDC55 YT75zDFvx0F3cRH5N4KxZOOe vtdqlzgzuSE0DMEmSXIfgO78 cGFk DLpyCb3tz5Q1p057MGKeIMAx lA47Vy9bmJdsUSIarPNNnZ5b itpwl1pllpegHwVaRPHgCRw5 ZXh0 EEChcUslTiEwBDA3HlV4FPG5 eUUjsC0pzLlafnnhbQ3dWlr+ TNVvCJKsh9Dnw6ZbPE45GM36 L3Ry PjwvdGFibGU+PHRhYmxlIHdp GYLjCQgtURYwHzSoiKynBB7d Tk6wAMZtDNGqrGqeaQVqYpOg b2xs MMCnJCsjNH8ceFviK1TefSB0 SBOht5r5Vr76B11rS3CxiDV+ WQTmdWH6sHW1dI8rNoVyNoM5 YWxp T367HtVkzFVlQfyre7kuh0pf nAp8QaJcAEBydhWycFjhXBS4 g7VfIe85X97xCNreJBUvKVVl MCUi WFLldPzswe2gtD7cRf7+PGNv uTF0rYN9kS7aNjVfAeE9AYyu F383QyEuvAHaYhizV48jH0Xc dXA+ WZDbPke5UIOhhDzuXS6ptJNs MLhtCj7iXJM8UjOrZoStMUwd P2BsOZTcndtmtfhnsES8TCEd MDUw qD49Pu8kqTaxSf9oIACxWXV9 SHFikTYfO7ZgyJ6qJnYsMFEc YNHaQ7KeyTApNZzeB808DPmv ZnQ7 GDVmdlSzW3BrCABmgEecOfH9 j4G2Ig1IeZsqyRFrEE9qQiFn AWc7M4GfFmz1RVJegDszRI6j cGFk KHxvFd1ncBhfxXrpCK7yKVLf ycovk132JnCbl5njWUQmaTRy RKldBRC0C57uy9Q5IOKxNLRs MDA7 bWE1cA9roNpokatsvMOlmIxn qjSscBbjINleXPilG802HWQw gKrrXjGDVbg3G1AiQfw6NRMe dHls VR4ddBVgYSqjNm2rqMdkoWyu OK9dMMQdjrscv465StEiy1gp VRQljSRoZOunNOT0H15jo1Z5 ICMw FROxBJO7zGE1iI5dySravybr bGVmdDsgdmVydGljYWwtYWxp A149UGGjxFnsJu7QHsx4C7Qe Pjx0 GWXsePugHX3mqXCqKCwiVq9h qBwpbQvbAR7yHJGkslauz206 AyMsi1xvWYJtmPAwTTpgIIQ8 Y29s j9L0HYWxGNGmIKO5tGP2pN1t bGlnbjogbGVmdDsgdmVydGlj QZbtKYpuD199ZDUvzQjtAfBn eWVy OjwvdGQ+PI30xt47Z9XlVsdi Ojd7RBQjLVG0gXY5cY3lJEGc CSfmr9T6lZT1N4KycxZgdv7v b2xs CIWiGFsbP80pd (more content not included)... Normal [facility] Consent for Treatmenton 07-22 Consent for Treatment [id number] F [facility] Path. Reviewon 08-05-2023 Path Review Peripheral Blood Smear: Invalid Interpretation Code [facility] Comment on above: Order Comment: Order added by Discern Expert Performed By: #### 1 [id number] #### [facility] [address] [place] [address] Physician Orderon 08-04-2023 Physician Order [id number] IFF Normal [facility] BB Draw & Holdon 08-03-2023 BB D&H Sample drawn for Blo od Ba Normal [facility] Comment on above: Performed By: #### 1 [id number] #### [facility] [address] [place] [address] BMPon 08-03-2023 Anion gap [Moles/Vol] 11 mmol/L Normal 6-16 [facility] Comment on above: Performed By: #### 2 [id number] #### [facility] [address] [place] [address] Calcium [Mass/Vol] 9.1 mg/dL Normal 8.9-11.1 [facility] Comment on above: Performed By: #### 2 [id number] #### [facility] [address] [place] [address] Chloride [Moles/Vol] 105 mmol/L Normal 101-111 [facility] Comment on above: Performed By: #### 2 [id number] #### [facility] [address] [place] [address] CO2 [Moles/Vol] 26 mmol/L Normal 21-31 [facility] Comment on above: Performed By: #### 2 [id number] #### [facility] [address] [place] [address] Creatinine [Mass/Vol] 1.0 mg/dL Normal 0.5-1.3 [facility] Comment on above: Performed By: #### 2 [id number] #### [facility] [address] [place] [address] Glucose [Mass/Vol] 109 mg/dL Normal 55-199 [facility] Comment on above: Performed By: #### 2 [id number] #### [facility] [address] [place] [address] Potassium [Moles/Vol] 3.9 mmol/L Normal 3.5-5.3 [facility] Comment on above: Performed By: #### 2 [id number] #### [facility] [address] [place] [address] Sodium [Moles/Vol] 138 mmol/L Normal 135-145 [facility] Comment on above: Performed By: #### 2 [id number] #### [facility] [address] [place] [address] Urea nitrogen [Mass/Vol] 16 mg/dL Normal 5-21 [facility] Comment on above: Performed By: #### 2 [id number] #### [facility] [address] [place] [address] Urea nitrogen/Creatinine [Mass ratio] 16 No Units Normal 10-20 [facility] Comment on above: Performed By: #### 2 [id number] #### [facility] [address] [place] [address] BNPon 4 Natriuretic peptide B (Bld) [Mass/Vol] 20 pg/mL Normal 5-80 [facility] Comment on above: Performed By: #### 1 [id number] #### [facility] [address] [place] [address] CBC w/ Auto Diffon 4 Anisocytosis Ql (Bld) PRESENT Invalid Interpretation Code [facility] Comment on above: Performed By: #### 2 [id number] #### [facility] [address] [place] [address] Basophils/100 WBC (Bld) 0.2 % Normal 0.0-2.0 [facility] Comment on above: Performed By: #### 2 [id number] #### [facility] [address] [place] [address] Basophils/Leukocytes Auto (Bld) [Pure # fraction] 0.0 E9/L Normal 0.0-0.2 [facility] Comment on above: Performed By: #### 2 [id number] #### [facility] [address] [place] [address] Eosinophils (Bld) [#/Vol] 0.0 E9/L Normal 0.0-0.5 [facility] Comment on above: Performed By: #### 2 [id number] #### [facility] [address] [place] [address] Eosinophils/100 WBC (Bld) 0.0 % Normal 0.0-8.0 [facility] Comment on above: Performed By: #### 2 [id number] #### [facility] [address] [place] [address] Erythrocyte distribution width (RBC) [Ratio] 19.5 % High 10.9-14.2 [facility] Comment on above: Performed By: #### 2 [id number] #### [facility] [address] [place] [address] Hematocrit (Bld) [Volume fraction] 24.2 % Low 34.0-46.0 [facility] Comment on above: Performed By: #### 2 586057 #### [facility] [address] [place] [address] Hemoglobin (Bld) [Mass/Vol] 7.3 g/dL Low 12.0-16.0 [facility] Comment on above: Performed By: #### 2 [id number] #### [facility] [address] [place] [address] Hypochromia Auto Ql (Bld) PRESENT Invalid Interpretation Code [facility] Comment on above: Performed By: #### 2 [id number] #### [facility] [address] [place] [address] Lymphocytes (Bld) [#/Vol] 2.0 E9/L Normal 1.0-4.0 [facility] Comment on above: Performed By: #### 2 402176 #### [facility] [address] [place] [address] Lymphocytes/100 WBC (Bld) 32.5 % Normal 14.0-50.0 [facility] Comment on above: Performed By: #### 2 036754 #### [facility] [address] [place] [address] MCH (RBC) [Entitic mass] 20.5 pg Low 27.0-34.0 [facility] Comment on above: Performed By: #### 2 986127 #### [facility] [address] [place] [address] MCHC (RBC) [Mass/Vol] 30.2 g/dL Low 31.4-36.0 [facility] Comment on above: Performed By: #### 2 081547 #### [facility] [address] [place] [address] MCV (RBC) [Entitic vol] 67.8 fL Low 80.0-100.0 F [facility] Comment on above: Performed By: #### 2 360142 #### [facility] [address] [place] [address] Microcytes Ql (Bld) PRESENT Invalid Interpretation Code [facility] Comment on above: Performed By: #### 2 014291 #### [facility] [address] [place] [address] Monocytes (Bld) [#/Vol] 0.5 E9/L Normal 0.2-1.0 F [facility] Comment on above: Performed By: #### 2 492273 #### [facility] [address] [place] [address] Neutrophils (Bld) [#/Vol] 3.7 E9/L Normal 2.0-7.5 [facility] Comment on above: Performed By: #### 2 059368 #### [facility] [address] [place] [address] Neutrophils/100 WBC (Bld) 59.4 % Normal 36.0-75.0 [facility] Comment on above: Performed By: #### 2 127588 #### [facility] [address] [place] [address] Platelet mean volume (Bld) [Entitic vol] 7.5 fL Normal 6.4-10.8 [facility] Comment on above: Performed By: #### 2 278581 #### [facility] [address] [place] [address] Platelets (Bld) [#/Vol] 342.0 E9/L Normal 150.0-500.0 [facility] Comment on above: Performed By: #### 2 668519 #### [facility] [address] [place] [address] RBC (Bld) [#/Vol] 3.6 E12/L Low 4.3-5.9 [facility] Comment on above: Performed By: #### 2 027738 #### [facility] [address] [place] [address] RBC size Nom (Bld) SEE MORPHOLOGY Invalid Interpretation Code [facility] Comment on above: Performed By: #### 2 795766 #### [facility] [address] [place] [address] Schistocytes LM Ql (Bld) PRESENT Invalid Interpretation Code [facility] Comment on above: Performed By: #### 2 592826 #### [facility] [address] [place] [address] WBC corrected for nucl RBC Auto (Bld) [#/Vol] 6.3 E9/L Normal 4.0-11.0 [facility] Comment on above: Performed By: #### 2 188648 #### [facility] [address] [place], [place] [id number] CHEMISTRYOrdered By: SYSTEM SYSTEM on 08-03-2023 Troponin [...] 20 pg/mL Normal 5 - 80 pg/mL [facility] HemeKistlerSS COAGULATIONOrdered By: Vick Kent on 08-03-2023 aPTT Coag (PPP) [Time] 32.0 s Normal 25.1 - 36.5 second(s) [facility] Auto Coag Comment on above: Interpretive Data: [...] the same coagulation reagent and instrumentation as [facility]. Currently there are no coagulation studies available worldwide for children to 14 days, and no normal ranges. Heparin therapeutic range (represented by Anti-Factor Xa activity of 0.2 - 0.4 U/mL) corresponds to PTT of 56.6 - 109.0 sec. INR Coag (PPP) [Relative time] 1.11 {INR} Invalid Interpretation Code [facility] Auto Coag Comment on above: Interpretive Data: I NR results are specifically intended to assess patients stabilized on long-term Anticoagulation therapy suggested INR s Less Intensive Anticoagulation 2.0 3.0 Conventional Range 3.0 4.5 PT Coag (PPP) [Time] 12.5 s Normal 9.4 - 1 2.5 second(s) [facility] Auto Coag Comment on above: Interpretive Data: [...] the same coagulation reagent and instrumentation as [facility]. Currently there are no coagulation studies available worldwide for children to 14 days, and no normal ranges. Consent for Treatmenton 07-22 Consent for Treatment [id number] F Normal [facility] Discharge Instructionson Discharge Instructions [id number] FF Normal [facility] ED Clinical Summaryon 2023 ED Clinical Summary (Inserted Image. Shasta ble to display) [place] [id number] ED Clinical Summary Person Information Name: [facility] Age[facility] 37 Years : 1985 Sex: Female Language: Bermudian PCP: Cleo Hassan Marital Status: Visit Id: [...] 08/03/2023 14:14:52 08/03/2023 14:14:52 08/03/2023 14:14:52 ADDRESS: [facility] MELISSA LOZADA [facility] [id number] [facility] DOC NOTES: MEDICAL INFORMATION: Prescriptions Given: Medications [...] up: With: Address: When: José Antonio Benitez [facility], [address] [place] [address] In 3 days 08/06/2023 Comments: Make sure to follow-up with as discussed. Return to the emergency room if your symptoms get worse or any new symptoms. With: Address: When: Cleo Hernandez In 3 days DIAGNOSIS: 1:Shortness of breath; 2:Anemia Normal [facility] ED Note-Nursingon 08-03-2023 ED Note-Nursing this [...] Ge RN updated at this time. Normal [facility] ED Note-Physicianon 08-03-19 ED Note-Physician Basic [...] and Complexity of Problems Differential Diagnosis: [] [facility] Data External documents reviewed: [] My EKG [...] Antonio Benitez In 3 days 08/06/2023 EDT [facility] [address] [place] [address]- Additional Instructions: Make sure to foll (more content not included)... Normal [facility] Comment on above: Result Comment: Elec [...] ? 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 ? Surgery or additional testing procedures to determine the cause of your anemia. You may need repeat blood tests to determine whether treatment is working. If the treatment does not seem to be working, you may need more tests. Follow these instructions at home: Medicines ? Take frvg-htv-cesfksz and prescription medicines only as told by [...] keep your urine pale yellow. ? Take vrdl-hmp-mdptlzr or prescription medicines. ? Eat foods that [...] cause of your iron deficiency. ? Take xhdb-uym-vpyyrqh and prescription medicines only as told by your health care provider. This includes iron supplem (more content not included)... Normal [facility] ED Patient Summaryon 024 ED Patient Summary (Inserted Image. Shasta ble to display) [address] [address] Patient Discharge Instructions Person Information Name: MORRO MALONEY Age: 37 Years Arrival Date: 08/03/2023 10:44:43 Discharge Diagnosis: 1:Shortness of breath; 2:Anemia Primary Care Physician: Cleo Hassan Provider Information Primary Provider: Elizabeth Moise M.D. Advanced Buckle Gluer:None The exam and treatment you received in the Emergency Department were for an urgent problem and are not intended as complete care. It is important that you follow up with a doctor, nurse practitioner, or physician?s executive assistant to president for ongoing care. If your symptoms become [...] Instructions: With: Address: When: José Antonio Benitez [facility], [address] [place] [address]. [place] [address] In 3 days 08/06/2023 Comments: Make sure [...] opioids can be used to help relieve axjozaey-fy-jlfffv pain and are often prescribed following a [...] the ri (more content not included)... Normal [facility] HEMATOLOGYOrdered By: SYSTEM SYSTEM on 08-03-2023 [...] 08-03-2023 Albumin [Mass/Vol] 4.3 g/dL Normal 3.3-5.0 [facility] Comment on above: Performed By: #### 2 [id number] #### [facility] [address] [place] [address] Albumin/Globulin (S) [Mass conc ratio] 1.7 Normal 1.1-2.2 [facility] Comment on above: Performed By: #### 2 641025 #### [facility] [address] [place] [address] ALP [Catalytic activity/Vol] 81 Int._Unit/L Normal 21-98 [facility] Comment on above: Performed By: #### 2 244979 #### [facility] [address] [place] [address] ALT No additional P-5'-P [Catalytic activity/Vol] 12 Int._Unit/L Normal 6-46 [facility] Comment on above: Performed By: #### 2 208465 #### [facility] [address] [place] [address] AST [Catalytic activity/Vol] 14 Int._Unit/L Normal 5-43 [facility] Comment on above: Performed By: #### 2 [id number] #### [facility] [address] [place] [address] Bilirubin [Mass/Vol] 0.4 mg/dL Normal 0.0-1.1 [facility] Comment on above: Performed By: #### 2 274058 #### [facility] [address] [place] [address] Bilirubin.direct [Mass/Vol] 0.0 mg/dL Normal 0.0-0.4 [facility] Comment on above: Performed By: #### 2 565483 #### [facility] [address] [place] [address] Bilirubin.indirect [Mass or moles/Vol] 0.4 mg/dL Normal 0.1-0.9 [facility] Comment on above: Performed By: #### 2 473240 #### [facility] [address] [place] [address] Globulin (S) [Mass/Vol] 2.6 g/dL Normal 1.4-4.0 F [facility] Comment on above: Performed By: #### 2 418705 #### [facility] [address] [place] [address] Protein [Mass/Vol] 6.9 g/dL Normal 6.0-7.8 [facility] Comment on above: Performed By: #### 2 393954 #### [facility] [address] [place] [address] Insurance Correspondenceon 0 08-03-2023 Insurance Correspondence [id number] Normal [facility] Magnesiumon 08-03-2023 Magnesium [Mass/Vol] 2.0 mg/dL Normal 1.3-2.[address] [facility] Comment on above: Performed By: #### 2 070056 #### [facility] [address] [place] [address] PT & PTTon 08-03-2023 aPTT Coag (PPP) [Time] 32.0 second(s) Normal 25.1-36.5 [facility] Comment on above: Result Comment: Para [...] the same coagulation reagent and instrumentation as [facility]. Currently there are no coagulation studies available worldwide for children to 14 days, and no normal ranges. Heparin therapeutic range (represented by Anti-Factor Xa activity of 0.2 - 0.4 U/mL) corresponds to PTT of 56.6 - 109.0 sec. Performed By: #### 1 [id number] #### [facility] [address] [place] [address] INR Coag (PPP) [Relative time] 1.11 {INR} Invalid Interpretation Code [facility] Comment on above: Result Comment: INR results are specifically intended to assess patients stabilized on long-term Anticoagulation therapy suggested INR?s ?Less Intensive Anticoagulation? 2.0 ? 3.0 Conventional Range 3.0 ? 4.5 Performed By: #### 1 [id number] #### [facility] [address] [place] [address] PT Coag (PPP) [Time] 12.5 second(s) Normal 9.4-12.5 [facility] Comment on above: Result Comment: 15 d ays - 4 weeks 1 - 5 months 6 -11 months 1-5 years 6-10 years 11 -17 years Mean: 11.2 (9.5-12.6) Mean: 11.0 (9.7-12.8) Mean: 11.0 (9.8-13.0) Mean: 11.3 (9.9-13.4) Mean: 11.7 (10.0-14.6) Mean: 11.8 (10.0 - 14.1) Pediatric Reference ranges were obtained from a study by eYmi Schultz et al. prepared from 1437 samples obtained at 7 different centers using the same coagulation reagent and instrumentation as [facility]. Currently there are no coagulation studies available worldwide for children to 14 days, and no normal ranges. Performed By: #### 1 [id number] #### [facility] [address] [place] [address] Troponin 0 Hr.on 08-03-2023 Troponin HS <2.30 Low 10.10-27.10 [facility] Comment on above: Result Comment: The 95% CI (Confidence Interval) PPV (Positive Predictive Value) for myocardial infarction in females is 38 pg/mL, in males 51 pg/mL. The results should be used in conjunction with clinical conditions of myocardial infarction. (Access High Sensitivity Troponin I Instructions For Use, [place], September 2017) Performed By: #### 1 [id number] #### [facility] [address] [place] [address] Troponin 1 Hr.on 08-03-2023 Troponin HS <2.30 Low 10.10-27.10 [facility] Comment on above: Order Comment: Tropo vincent 1 hr due @ 1240 Result Comment: The 95% CI (Confidence Interval) PPV (Positive Predictive Value) for myocardial infarction in females is 38 pg/mL, in males 51 pg/mL. The results should be used in conjunction with clinical conditions of myocardial infarction. (Access High Sensitivity Troponin I Instructions For Use, [place], September 2017) Performed By: #### 1 [id number] #### [facility] [address] [place] [address] XR Chest 2 Viewson XR Chest 2 [...] mGy = na DAP = na Normal [facility] eGFRon 08-03-2023 eGFR 74 mL/min/1.73 m2 Normal >=59 [facility] Comment on above: Order Comment: Order added by Discern Expert. Performed By: #### 1 [id number] #### [facility] [address] [place] [address] Family Medicine Phone Visit - Telehealthon 08-02-2023 [...] bedtime), # 30 cap(s), Refills(s) 0, Pharmacy: [facility]/pharmacy #[id number], 161, cm, 03/29/23 15:27:00 EST, Height/Length Dosing, 107.2, kg, 03/29/23 15:27:00 EST, Weight Dosing methylPREDNISolone, = 1 packet(s), Oral, As Directed, as directed on package labeling, X 6 day(s), # 21 tab(s), Refills(s) 0, Pharmacy: [facility]/pharmacy #[id number], 161, cm, 08/01/23 14:17:00 EDT, Height/Length Dosing, 107.3, kg, 08/01/23 14:17:00 EDT, Weight Dosing predniSONE, See Instructions, 6 tabs for 2 days,5 tabs for 2 days,4 tabs for 2 days,3 tabs for 2 days,2 tabs for 2 days,1 tab for 2 days, # 42 tab(s), Refills(s) 0, Pharmacy: [facility]/pharmacy #[id number], 161, cm, 03/29/23 15:27:00 EST, Height/Length Dosing, 107.2, kg, ... CBC w/ Auto Diff Iron Level Lab Specimen Collect 72524 Thyroid Stimulating Hormone Vitamin D 25 Hydroxy [...] (COVID-19) mRNA BNT-162b2 vax 03/12/[address] [facility] Comment on above: Result Comment: Elec tronically Signed By: Cleo Hassan\.br\Date and Time Signed: 08/02/23 13:42 EDT Physician Orderon 08-02-2023 Physician Order [id number] F Normal [facility] Ambulatory Visit Summaryon 0 08-01-2023 Ambulatory [...] for choosing us for your care. Normal [facility] CBC w/ Auto Diffon 4 Anisocytosis Ql (Bld) PRESENT Invalid Interpretation Code [facility] Comment on above: Performed By: #### 2 [id number] #### [facility] [address] [place] [address] Hypochromia Auto Ql (Bld) PRESENT Invalid Interpretation Code [facility] Comment on above: Performed By: #### 2 274622 #### [facility] [address] [place] [address] Microcytes Ql (Bld) PRESENT Invalid Interpretation Code [facility] Comment on above: Performed By: #### 2 086098 #### [facility] [address] [place] [address] Ovalocytes LM Ql (Bld) PRESENT Invalid Interpretation Code [facility] Comment on above: Performed By: #### 2 689891 #### [facility] [address] [place] [address] RBC size Nom (Bld) SEE MORPHOLOGY Invalid Interpretation Code [facility] Comment on above: Performed By: #### 2 648450 #### [facility] [address] [place] [address] CBC w/ Auto DiffOrdered By: SYSTEM SYSTEM on 08-01-2023 Basophils/100 WBC (Bld) 0.1 % Normal 0.0-2.0 R [facility] Comment on above: Performed By: #### 2 356832 #### [facility] [address] [place] [address] Basophils/Leukocytes Auto (Bld) [Pure # fraction] 0.0 E9/L Normal 0.0-0.2 [facility] Comment on above: Performed By: #### 2 422805 #### [facility] [address] [place] [address] Eosinophils (Bld) [#/Vol] 0.0 E9/L Normal 0.0-0.5 [facility] Comment on above: Performed By: #### 2 543171 #### [facility] [address] [place] [address] Eosinophils/100 WBC (Bld) 0.0 % Normal 0.0-8.0 [facility] Comment on above: Performed By: #### 2 525329 #### [facility] [address] [place] [address] Erythrocyte distribution width (RBC) [Ratio] 19.7 % High 10.9-14.2 [facility] Comment on above: Performed By: #### 2 538697 #### [facility] [address] [place] [address] Hematocrit (Bld) [Volume fraction] 23.0 % Low 34.0-46.0 [facility] Comment on above: Performed By: #### 2 117222 #### [facility] [address] [place] [address] Hemoglobin (Bld) [Mass/Vol] 7.1 g/dL Low 12.0-16.0 [facility] Comment on above: Performed By: #### 2 645165 #### [facility] [address] [place] [address] Lymphocytes (Bld) [#/Vol] 2.2 E9/L Normal 1.0-4.0 [facility] Comment on above: Performed By: #### 2 143236 #### Gar[facility] [address] [place] [address] Lymphocytes/100 WBC (Bld) 28.2 % Normal 14.0-50.0 [facility] Comment on above: Performed By: #### 2 026133 #### Greg [facility] [address] [place] [address] MCH (RBC) [Entitic mass] 21.1 pg Low 27.0-34.0 [facility] Comment on above: Performed By: #### 2 347959 #### [facility] [address] [place] [address] MCHC (RBC) [Mass/Vol] 30.9 g/dL Low 31.4-36.0 [facility] Comment on above: Performed By: #### 2 356807 #### [facility] [address] [place] [address] MCV (RBC) [Entitic vol] 68.2 fL Low 80.0-100.0 R [facility] Comment on above: Performed By: #### 2 445272 #### [facility] [address] [place] [address] Monocytes (Bld) [#/Vol] 0.5 E9/L Normal 0.2-1.0 [facility] Comment on above: Performed By: #### 2 371820 #### [facility] [address] [place] [address] Neutrophils (Bld) [#/Vol] 5.1 E9/L Normal 2.0-7.5 [facility] Comment on above: Performed By: #### 2 739469 #### Greg [facility] [address] [place] [address] Neutrophils/100 WBC (Bld) 64.9 % Normal 36.0-75.0 [facility] Comment on above: Performed By: #### 2 667752 #### Greg [facility] [address] [place] [address] Platelet 359.0 E9/L Normal 150.0-500.0 [facility] Comment on above: Performed By: #### 2 685658 #### [facility] [address] [place] [address] Platelet mean volume (Bld) [Entitic vol] 7.6 fL Normal 6.4-10.8 [facility] Comment on above: Performed By: #### 2 275082 #### [facility] [address] [place] [address] RBC (Bld) [#/Vol] 3.4 E12/L Low 4.3-5.9 [facility] Comment on above: Performed By: #### 2 124373 #### [facility] [address] [place] [address] WBC corrected for nucl RBC Auto (Bld) [#/Vol] 7.9 E9/L Normal 4.0-11.0 [facility] Comment on above: Performed By: #### 2 629466 #### [facility] [address] [place] [address] CHEMISTRYOrdered By: SYSTEM SYSTEM on 08-01-2023 25-hydroxyvitamin [...] day(s), # 21 tab(s), Refills(s) 0, Pharmacy: [facility]/pharmacy #[id number], 161, cm, 08/01/23 14:17:00 EDT, Height/Length Dosing, 107.3, kg, 08/01/23 14:17:00 EDT, Weight Dosing CBC w/ Auto Diff Iron Level Lab Specimen Collect 36241 Thyroid Stimulating Hormone Vitamin D 25 Hydroxy 2. Fatigue (R53.83: Other fatigue) will check labs today Ordered: methylPREDNISolone, = 1 packet(s), Oral, As Directed, as directed on package labeling, X 6 day(s), # 21 tab(s), Refills(s) 0, Pharmacy: [facility]/pharmacy #[id number], 161, cm, 08/01/23 14:17:00 EDT, Height/Length Dosing, 107.3, kg, 08/01/23 14:17:00 EDT, Weight Dosing CBC w/ Auto Diff Iron Level Lab Specimen Collect 60367 Thyroid Stimulating Hormone Vitamin D 25 Hydroxy 3. Non-smoker (Z78.9: Other specified health status) continue not smoking Ordered: methylPREDNISolone, = 1 packet(s), Oral, As Directed, as directed on package labeling, X 6 day(s), # 21 tab(s), Refills(s) 0, Pharmacy: [facility]/pharmacy #[id number], 161, cm, 08/01/23 14:17:00 EDT, Height/Length Dosing, 107.3, kg, 08/01/23 14:17:00 EDT, Weight Dosing predniSONE, See Instructions, 6 tabs for 2 days,5 tabs for 2 days,4 tabs for 2 days,3 tabs for 2 days,2 tabs for 2 days,1 tab for 2 days, # 42 tab(s), Refills(s) 0, Pharmacy: [facility]/pharmacy #[id number], 161, cm, 03/29/23 15:27:00 EST, Height/Length Dosing, 107.2, kg, 02/... CBC w/ Auto Diff Iron Level Lab Specimen Collect 55407 Thyroid Stimulating Hormone Vitamin D 25 Hydroxy 4. BMI 40.0-44.9, adult (Z68.41: Body mass index [BMI] 40.0-44.9, adult) BMI education complete Ordered: methylPREDNISolone, = 1 packet(s), Oral, As Directed, as directed on package labeling, X 6 day(s), # 21 tab(s), Refills(s) 0, Pharmacy: [facility]/pharmacy #[id number], 161, cm, 08/01/23 14:17:00 EDT, Height/Length Dosing, 107.3, kg, 08/01/23 14:17:00 EDT, Weight Dosing predniSONE, See Instructions, 6 tabs for 2 days,5 tabs for 2 days,4 tabs for 2 days,3 tabs for 2 days,2 tabs for 2 days,1 tab for 2 days, # 42 tab(s), Refills(s) 0, Pharmacy: [facility]/pharmacy #[id number], 161, cm, 03/29/23 15:27:00 EST, Height/Length Dosing, 107.2, kg, 02/... CBC w/ Auto Diff Iron Level Lab Specimen Collect 57185 Thyroid Stimulating Hormone Vitamin D 25 Hydroxy Orders: gabapentin, 300 mg = 1 cap(s), Oral, Once a day (at bedtime), # 30 cap(s), Refills(s) 0, Pharmacy: [facility]/pharmacy #[id number], 161, cm, 03/29/23 15:27:00 [...] 03/12/2020 Recor (more content not included)... Normal [facility] Comment on above: Result Comment: Elec [...] days, # 42 tab(s), Refills(s) 0, Pharmacy: [facility]/pharmacy #[id number], 161, cm, 03/29/23 15:27:00 EST, Height/Length Dosing, 107.2, kg, 02/... 2. Low back pain (M54.50: Low back pain, unspecified) steroid sent to pharmcy Ordered: predniSONE, See Instructions, 6 tabs for 2 days,5 tabs for 2 days,4 tabs for 2 days,3 tabs for 2 days,2 tabs for 2 days,1 tab for 2 days, # 42 tab(s), Refills(s) 0, [id number] 161, cm, 03/29/23 15:27:00 EST, Height/Length Dosing, 107.2, kg, 02/... 3. BMI 40.0-44.9, adult (Z68.41: Body mass index [BMI] 40.0-44.9, adult) BMI education complete Ordered: predniSONE, See Instructions, 6 tabs for 2 days,5 tabs for 2 days,4 tabs for 2 days,3 tabs for 2 days,2 tabs for 2 days,1 tab for 2 days, # 42 tab(s), Refills(s) 0, Pharmacy: [facility]/pharmacy #[id number], 161, cm, 03/29/23 15:27:00 EST, Height/Length Dosing, 107.2, kg, 02/... 4. Non-smoker (Z78.9: Other specified health status) continue not smoking Ordered: predniSONE, See Instructions, 6 tabs for 2 days,5 tabs for 2 days,4 tabs for 2 days,3 tabs for 2 days,2 tabs for 2 days,1 tab for 2 days, # 42 tab(s), Refills(s) 0, Pharmacy: [facility]/pharmacy #[id number], 161, cm, 03/29/23 15:27:00 [...] (COVID-19) mRNA BNT-162b2 vax 03/12/[address] [facility] Comment on above: Result Comment: Elec tronically Signed By: Cleo Hassan\.br\Date and Time Signed: 03/30/23 12:42 EST ED Note-Physicianon 01-26-20 ED Note-Physician [id number] 2019 [id number] F Normal [facility] Family Medicine Office/Clini c Noteon 01-25-2023 Family Medicine Office/Clinic Note HPI Staff Morro is a 37 year old female presenting to discuss results ER followup: Hospital: [facility] Visit date: 01/05/23 Symptoms the patient presented [...] Metabolic Panel eGFR HgbA1c Lab Specimen Collect 22996 2. Non-smoker (Z78.9: Other specified health status) continue not smoking Ordered: Automated Diff CBC w/ Auto Diff Comprehensive Metabolic Panel eGFR HgbA1c Lab Specimen Collect 52708 3. Elevated WBCs (D72.829: Elevated white blood cell count, unspecified) WBC's were elevated when in hospital for asthma exacerbation. WBC's were elevated Ordered: Automated Diff CBC w/ Auto Diff Comprehensive Metabolic Panel eGFR HgbA1c Lab Specimen Collect 01506 4. Elevated creatine kinase (R74.8: Abnormal levels of other serum enzymes) CMP drawn in office today. will follow up on labs Ordered: Automated Diff CBC w/ Auto Diff Comprehensive Metabolic Panel eGFR HgbA1c Lab Specimen Collect 28670 5. Weight gain (R63.5: Abnormal weight gain) pt is going to look into [facility] if she is eligible for $25 co pay. will call office if she is eligible Ordered: Lab Specimen Collect 94576 6. BMI 40.0-44.9, adult (Z68.41: Body mass [...] mRNA BNT-162b2 vax 03/12/2020 Recorded Normal [facility] Comment on above: Result Comment: Elec [...] for choosing us for your care. Normal [facility] Auto Diffon 01-24-2023 Basophils/100 WBC (Bld) 1.2 % Normal 0.0-2.0 [facility] Comment on above: Order Comment: Order Added by Discern Expert. Performed By: #### 2 043276, 57407839, 3739316, 076771924, 6356875 ####[facility] [address] [place] [address] Basophils/Leukocytes Auto (Bld) [Pure # fraction] 0.1 E9/L Normal 0.0-0.2 [facility] Comment on above: Order Comment: Order Added by Discern Expert. Performed By: #### 2 502058, 63861080, 6280168, 125605112, 9450443 ####[facility] [address] [place] [address] Eosinophils/100 WBC (Bld) 4.7 % Normal 0.0-8.0 [facility] Comment on above: Order Comment: Order Added by Felicita Expert. Performed By: #### 2 482249, 28695441, 2175964, 187979947, 8428802 ####[facility] [address] [place] [address] Eosinophils/Leukocytes Auto (Bld) [Pure # fraction] 0.5 E9/L Normal 0.0-0.5 [facility] Comment on above: Order Comment: Order Added by Felicita Expert. Performed By: #### 2 294971, 63540677, 8421887, 983403088, 2649415 ####[address] [address] Lymphocytes/100 WBC (Bld) 34.2 % Normal 14.0-50.0 [facility] Comment on above: Order Comment: Order Added by Felicita Expert. Performed By: #### 2 777356, 76261337, 5094677, 294615482, 9645597 ####[address] [address] Lymphocytes/Leukocytes Auto (Bld) [Pure # fraction] 3.4 E9/L Normal 1.0-4.0 [facility] Comment on above: Order Comment: Order Added by Felicita Expert. Performed By: #### 2 682298, 24327071, 1823213, 383458985, 5147356 ####[address] [address] Monocytes/100 WBC (Bld) 6.7 % Normal 4.0-14.0 [facility] Comment on above: Order Comment: Order Added by Felicita Expert. Performed By: #### 2 123312, 48084343, 7798913, 904865319, 8342894 ####[facility] [address] [place] [address] Monocytes/Leukocytes Auto (Bld) [Pure # fraction] 0.7 E9/L Normal 0.2-1.0 [facility] Comment on above: Order Comment: Order Added by Discern Expert. Performed By: #### 2 464049, 33962851, 7031199, 791453842, 1933368 ####[address] [place] [place] [address] Neutrophils/100 WBC (Bld) 53.2 % Normal 36.0-75.0 [facility] Comment on above: Order Comment: Order Added by Discern Expert. Performed By: #### 2 857323, 17226637, 3580369, 070908116, 8820663 ####[address] [place] [address] Neutrophils/Leukocytes Auto (Bld) [Pure # fraction] 5.4 E9/L Normal 2.0-7.5 [facility] Comment on above: Order Comment: Order Added by Discern Expert. Performed By: #### 2 295961, 38693836, 8671916, 606331479, 3438714 ####[address] [address] CBC w/ Auto Diffon 3 Erythrocyte distribution width (RBC) [Ratio] 16.7 % High 10.9-14.2 [facility] Comment on above: Performed By: #### 2 319263, 53692056, 3505026, 800931455, 4128057 ####[facility] [address] [place] [address] Hematocrit (Bld) [Volume fraction] 38.2 % Normal 34.0-46.0 [facility] Comment on above: Performed By: #### 2 030733, 47033495, 6047680, 101318365, 4271120 ####[facility] [address] [place] [address] Hemoglobin (Bld) [Mass/Vol] 12.3 g/dL Normal 12.0-16.0 [facility] Comment on above: Performed By: #### 2 545608, 83902223, 9345556, 043264730, 0178814 ####[facility] [address] [place] [address] MCH (RBC) [Entitic mass] 26.4 pg Low 27.0-34.0 [facility] Comment on above: Performed By: #### 2 181864, 68524392, 7553361, 768725690, 2411739 ####[address] [address] MCHC (RBC) [Mass/Vol] 32.3 g/dL Normal 31.4-36.0 [facility] Comment on above: Performed By: #### 2 052678, 93001535, 9507065, 601261926, 5159700 ####[place] [address] MCV (RBC) [Entitic vol] 81.8 fL Normal 80.0-100.0 F [facility] Comment on above: Performed By: #### 2 757607, 42065054, 4508023, 481969181, 9362197 ####[address] [address] Platelet mean volume (Bld) [Entitic vol] 8.1 fL Normal 6.4-10.8 [facility] Comment on above: Performed By: #### 2 623477, 56654787, 4012608, 863824399, 1562515 ####[address] [address] Platelets (Bld) [#/Vol] 334.0 E9/L Normal 150.0-500.0 [facility] Comment on above: Performed By: #### 2 487825, 84485315, 7923806, 926030483, 5216246 ####[address] [address] RBC (Bld) [#/Vol] 4.7 E12/L Normal 4.3-5.9 [facility] Comment on above: Performed By: #### 2 609559, 75904876, 4102997, 652765453, 3522024 ####[facility] [address] [place] [address] WBC corrected for nucl RBC Auto (Bld) [#/Vol] 10.1 E9/L Normal 4.0-11.0 [facility] Comment on above: Performed By: #### 2 350037, 36556468, 4186986, 738166489, 2693263 ####[facility] [address] [place] [address] CMPon 01-24-2023 Albumin [Mass/Vol] 3.9 g/dL Normal 3.3-5.0 [facility] Comment on above: Performed By: #### 2 233741, 06893175, 7232049, 536750384, 5127892 ####[address] [place] [address] Albumin/Globulin (S) [Mass conc ratio] 1.3 Normal 1.1-2.2 [facility] Comment on above: Performed By: #### 2 808737, 54162635, 8510329, 296774093, 4468422 ####[address] [place] [address] ALP [Catalytic activity/Vol] 81 Int._Unit/L Normal 21-98 [facility] Comment on above: Performed By: #### 2 200519, 22306226, 1583894, 907593582, 6282716 ####[facility] [address] [place] [address] ALT No additional P-5'-P [Catalytic activity/Vol] 14 Int._Unit/L Normal 6-46 [facility] Comment on above: Performed By: #### 2 255170, 00739142, 6143922, 430407244, 3966634 ####[address] [place] [address] Anion gap [Moles/Vol] 9 mmol/L Normal 6-16 [facility] Comment on above: Performed By: #### 2 010241, 38110017, 8256934, 984395314, 0174717 ####[facility] [address] [place] [address] AST [Catalytic activity/Vol] 18 Int._Unit/L Normal 5-43 [facility] Comment on above: Performed By: #### 2 180843, 69157601, 9301104, 962215259, 8395549 ####[facility] [address] [place] [address] Bilirubin [Mass/Vol] 0.2 mg/dL Normal 0.0-1.1 [facility] Comment on above: Performed By: #### 2 772942, 55672099, 3869175, 933582959, 3267637 ####[facility] [address] [place] [address] Calcium [Mass/Vol] 8.9 mg/dL Normal 8.9-11.1 [facility] Comment on above: Performed By: #### 2 499375, 71023404, 1835546, 633986832, 5247950 ####[facility] [address] [place] [address] Chloride [Moles/Vol] 104 mmol/L Normal 101-111 [facility] Comment on above: Performed By: #### 2 852566, 25331553, 6586297, 015131106, 5980436 ####[facility] [address] [place] [address] CO2 [Moles/Vol] 25 mmol/L Normal 21-31 [facility] Comment on above: Performed By: #### 2 723367, 93574187, 2682536, 345024039, 4329084 ####[facility] [address] [place] [address] Creatinine [Mass/Vol] 1.1 mg/dL Normal 0.5-1.3 [facility] Comment on above: Performed By: #### 2 430755, 58168063, 0536489, 437108439, 7598501 ####[facility] [address] [place] [address] Globulin (S) [Mass/Vol] 3.1 g/dL Normal 1.4-4.0 F [facility] Comment on above: Performed By: #### 2 427386, 90392971, 1966926, 371074051, 7226274 ####[facility] [address] [place] [address] Glucose [Mass/Vol] 87 mg/dL Normal 55-199 [facility] Comment on above: Result Comment: If t his glucose result represents a fasting glucose, interpretation should refer to the following reference range: 55-99 mg/dL Performed By: #### 2 794613, 32586070, 4267568, 619518458, 5500015 ####[facility] [address] [place] [address] Potassium [Moles/Vol] 4.3 mmol/L Normal 3.5-5.3 [facility] Comment on above: Performed By: #### 2 310767, 82198719, 2754852, 573428401, 7864008 ####[facility] [address] [place] [address] Protein [Mass/Vol] 7.0 g/dL Normal 6.0-7.8 [facility] Comment on above: Performed By: #### 2 084915, 92387906, 3181379, 921838166, 9444781 ####[facility] [address] [place] [address] Sodium [Moles/Vol] 134 mmol/L Low 135-145 [facility] Comment on above: Performed By: #### 2 362322, 43408413, 2108825, 816539329, 1123685 ####[facility] [address] [place] [address] Urea nitrogen [Mass/Vol] 13 mg/dL Normal 5-21 [facility] Comment on above: Performed By: #### 2 951518, 95312866, 1656692, 216914048, 1465125 ####[facility] [address] [place] [address] Urea nitrogen/Creatinine [Mass ratio] 12 No Units Normal 10-20 [facility] Comment on above: Performed By: #### 2 723894, 91761845, 2171813, 125735274, 1904500 ####[facility] [address] [place] [address] MzaI1zkb 01-24-2023 HbA1c (Bld) [Mass fraction] 5.9 % Normal <=5.9 [facility] Comment on above: Performed By: #### 2 212295, 62522786, 5141358, 050397886, 0430207 ####[facility] [address] [place] [address] eGFRon 01-24-2023 GFR/1.73 sq M.predicted among non-blacks MDRD (S/P/Bld) [Vol rate/Area] 66 mL/min/1.73 m2 Normal >=59 [facility] Comment on above: Order Comment: Order added by Discern Expert. Result Comment: Building Wrecker yasemin kidney disease could be indicated at eGFR's of less than 60 mL/min/1.73m2. Kidney failure is indicated at less than 15 mL/min/1.73m2. Performed By: #### 2 536226, 61143034, 4526448, 366277456, 3943630 ####[facility] [address] [place] [address] Reminderson 10-21-2022 Reminders - From: Cleo Hassan [...] 37.3 % (14.0 - 50.0) 10/18/2022 14:25 [place] Auto 4.6 % (4.0 - 14.0) 10/18/2022 14:25 Eos Auto 3.4 % (0.0 - 8.0) 10/18/2022 14:25 Basophil Auto 1.1 % (0.0 - 2.0) 10/18/2022 14:25 Neutro Absolute 4.3 E9/L (2.0 - 7.5) 10/18/2022 14:25 Lymph Absolute 3.0 E9/L (1.0 - 4.0) 10/18/2022 14:25 [place] Absolute 0.4 E9/L (0.2 - 1.0) 10/18/2022 [...] full unable to LVM. From: Carmel Ledbetter ([facility] - Clinical) To: Cleo Hassan; Sent: 10/21/2022 09:19:55 EDT Show up: 10/21/2022 09:19:00 EDT Subject: RE: Ambulatory Reminder notified patient of labs results. Pt states she is concerned about a growth on her thyroid she said before her thyroid levels were normal and didn't show anything. She said she can feel something pushing against her esophagus. From: Cleo Hassan To: [facility] - Clinical; Sent: 10/21/2022 09:24:10 EDT Show up: 10/21/2022 09:24:00 EDT Subject: RE: Ambulatory Reminder will send order to [facility]. pt notified Normal [facility] T3 Freeon 10-20-2022 Free T3 [Mass/Vol] 2.8 pg/mL Invalid Interpretation Code 2.0-4.4 [facility] Comment on above: Result Comment: Perf ormed at: [facility] [address] [id number] PhD Susan Cadet Performed By: #### 2 226207, 0851327, 6523233, 7234332, 1386570, 53078957, 8633083, 9215985 ####[facility] [address] [place] [address] Medication Consenton 023 Medication Consent [id number] 8022 [id number]: [address] [facility] Ambulatory Visit Summaryon 0 10-18-2022 Ambulatory [...] as needed for for wheezing Pickup at [facility] 1404 Unchanged eszopiclone (eszopiclone 3 mg Tab) 1 Tablets By Mouth Once a day (at bedtime) as needed for for insomnia Unchanged fluticasone-salmeterol (Advair Diskus 500 mcg-50 mcg inhalation powder) See instructions 2 puffs at bedtime Unchanged lamotrigine (lamotrigine 150 mg Tab) Unchanged lurasidone (lurasidone 60 mg oral tablet) 1 Tablets By Mouth Every day Unchanged sertraline (sertraline 100 mg Tab) Pharmacy Information [facility] 1621: 60[address] [facility] [address] [place], [place] [id number] [phone] Allergies No Known Allergies Problems Ongoing - Any problem that you are currently receiving treatment for. Asthma Cyst of thyroid Weight gain Wellness examination Normal [facility] Auto Diffon 10-18-2022 Basophils/100 WBC (Bld) 1.1 % Normal 0.0-2.0 F [facility] Comment on above: Order Comment: Order Added by Discern Expert. Performed By: #### 2 152535, 3207576, 7080728, 0995237, 1563445, 68961247, 1679214, 6269235 ####[facility] [address] [place] [address] Basophils/Leukocytes Auto (Bld) [Pure # fraction] 0.1 E9/L Normal 0.0-0.2 [facility] Comment on above: Order Comment: Order Added by Discern Expert. Performed By: #### 2 813107, 5464997, 5466177, 6859078, 0488873, 31249205, 4848629, 0017012 ####[facility] [address] [place] [address] Eosinophils/100 WBC (Bld) 3.4 % Normal 0.0-8.0 [facility] Comment on above: Order Comment: Order Added by Discern Expert. Performed By: #### 2 425645, 7296749, 8918667, 0079269, 4254687, 73056481, 4802857, 9618894 ####[facility] [address] [place] [address] Eosinophils/Leukocytes Auto (Bld) [Pure # fraction] 0.3 E9/L Normal 0.0-0.5 [facility] Comment on above: Order Comment: Order Added by Discern Expert. Performed By: #### 2 577333, 8996371, 6768656, 5673298, 0067284, 81881847, 2678664, 5225074 ####[address] [place] [address] Lymphocytes/100 WBC (Bld) 37.3 % Normal 14.0-50.0 [facility] Comment on above: Order Comment: Order Added by Discern Expert. Performed By: #### 2 877020, 8229505, 3047432, 7940074, 0726726, 91158065, 8930897, 0439106 ####[address] [place] [address] Lymphocytes/Leukocytes Auto (Bld) [Pure # fraction] 3.0 E9/L Normal 1.0-4.0 [facility] Comment on above: Order Comment: Order Added by Discern Expert. Performed By: #### 2 449775, 5188857, 2866898, 8502227, 3973176, 47731266, 9611878, 3012572 ####[address] [address] Monocytes/100 WBC (Bld) 4.6 % Normal 4.0-14.0 [facility] Comment on above: Order Comment: Order Added by Discern Expert. Performed By: #### 2 421293, 9028622, 9328231, 4198585, 8071436, 99170914, 7788935, 5134494 ####[address] [place] [address] Monocytes/Leukocytes Auto (Bld) [Pure # fraction] 0.4 E9/L Normal 0.2-1.0 [facility] Comment on above: Order Comment: Order Added by Discern Expert. Performed By: #### 2 729277, 8603621, 4847371, 5104291, 0407357, 11771562, 3523320, 9148086 ####[address] [place] [address] Neutrophils/100 WBC (Bld) 53.6 % Normal 36.0-75.0 [facility] Comment on above: Order Comment: Order Added by Discern Expert. Performed By: #### 2 881637, 2264563, 3778356, 3829154, 5563997, 94367798, 1839108, 8178118 ####[facility] [address] [place] [address] Neutrophils/Leukocytes Auto (Bld) [Pure # fraction] 4.3 E9/L Normal 2.0-7.5 [facility] Comment on above: Order Comment: Order Added by Discern Expert. Performed By: #### 2 325028, 4665785, 1570407, 0092756, 1955068, 73239496, 2971593, 7109399 ####[address] [place] [address] CBC w/ Auto Diffon 3 Erythrocyte distribution width (RBC) [Ratio] 18.0 % High 10.9-14.2 [facility] Comment on above: Performed By: #### 2 573778, 8353730, 0237839, 8143945, 7035104, 36501399, 9681414, 4145181 ####[address] [place] [address] Hematocrit (Bld) [Volume fraction] 37.2 % Normal 34.0-46.0 [facility] Comment on above: Performed By: #### 2 861010, 3859790, 4596553, 2425950, 7706905, 46757074, 1468269, 6522879 ####[address] [address] Hemoglobin (Bld) [Mass/Vol] 12.0 g/dL Normal 12.0-16.0 [facility] Comment on above: Performed By: #### 2 321812, 7154637, 3496247, 8086025, 4191531, 13548340, 3982937, 6097217 ####[address] [place] [address] MCH (RBC) [Entitic mass] 26.2 pg Low 27.0-34.0 [facility] Comment on above: Performed By: #### 2 031943, 3435819, 5346839, 9831962, 8765667, 45692455, 5891261, 5875146 ####[facility] [address] [place] [address]57 MCHC (RBC) [Mass/Vol] 32.3 g/dL Normal 31.4-36.0 [facility] Comment on above: Performed By: #### 2 119068, 0505862, 8562054, 8997628, 1708640, 91892267, 4200857, 8661218 ####[facility] [address] [place] [address] MCV (RBC) [Entitic vol] 81.2 fL Normal 80.0-100.0 F [facility] Comment on above: Performed By: #### 2 147226, 3596297, 1943364, 5812978, 4594364, 87639076, 8781356, 5631842 ####[place] [address] Platelet mean volume (Bld) [Entitic vol] 7.8 fL Normal 6.4-10.8 [facility] Comment on above: Performed By: #### 2 397009, 9804470, 5118912, 3632229, 1802708, 92479206, 5327517, 2038442 ####[address] [address] Platelets (Bld) [#/Vol] 312.0 E9/L Normal 150.0-500.0 [facility] Comment on above: Performed By: #### 2 805963, 4718594, 9365222, 1773017, 9544147, 31493627, 4740446, 3576461 ####[address] [address] RBC (Bld) [#/Vol] 4.6 E12/L Normal 4.3-5.9 [facility] Comment on above: Performed By: #### 2 786262, 9554056, 1796527, 4075782, 8615741, 39757401, 3924885, 9475074 ####[facility] [address] [place] [address] WBC corrected for nucl RBC Auto (Bld) [#/Vol] 8.0 E9/L Normal 4.0-11.0 [facility] Comment on above: Performed By: #### 2 010081, 0914302, 7818697, 0954680, 3001401, 79514650, 7045468, 4305560 ####[facility] [address] [place] [address] CHEMISTRYOrdered By: SYSTEM SYSTEM on 10-18-2022 Albumin [...] 10-18-2022 Albumin [Mass/Vol] 4.0 g/dL Normal 3.3-5.0 [facility] Comment on above: Performed By: #### 2 417804, 5686963, 0594629, 2593013, 7678734, 59397352, 0156405, 0032202 ####[facility] [address] [place] [address] Albumin/Globulin (S) [Mass conc ratio] 1.3 Normal 1.1-2.2 [facility] Comment on above: Performed By: #### 2 141038, 5172065, 2549931, 4773333, 8976141, 12536993, 7491330, 7999453 ####[facility] [address] [place] [address] ALP [Catalytic activity/Vol] 85 Int._Unit/L Normal 21-98 [facility] Comment on above: Performed By: #### 2 320307, 1725306, 4773740, 1704827, 1030480, 67137874, 2684649, 7657853 ####[facility] [address] [place] [address] ALT No additional P-5'-P [Catalytic activity/Vol] 12 Int._Unit/L Normal 6-46 [facility] Comment on above: Performed By: #### 2 982966, 8361650, 8745686, 3885210, 5486609, 09673924, 2641210, 0861265 ####[facility] [address] [place] [address] Anion gap [Moles/Vol] 13 mmol/L Normal 6-16 [facility] Comment on above: Performed By: #### 2 423405, 5706249, 2832900, 5175712, 4142888, 79092140, 1165798, 9385298 ####[facility] [address] [place] [address] AST [Catalytic activity/Vol] 20 Int._Unit/L Normal 5-43 [facility] Comment on above: Performed By: #### 2 926066, 4540932, 0889875, 6920914, 9501620, 88460569, 6356234, 8231842 ####[facility] [address] [place] [address] Bilirubin [Mass/Vol] 0.2 mg/dL Normal 0.0-1.1 [facility] Comment on above: Performed By: #### 2 928429, 5860014, 1637370, 5729714, 3746048, 03147799, 2600469, 1597699 ####[facility] [address] [place] [address] Calcium [Mass/Vol] 9.1 mg/dL Normal 8.9-11.1 [facility] Comment on above: Performed By: #### 2 788630, 3008633, 5157854, 8557852, 7756007, 43929719, 0802266, 6752478 ####[facility] [address] [place] [address] Chloride [Moles/Vol] 106 mmol/L Normal 101-[address] [facility] Comment on above: Performed By: #### 2 373493, 1183324, 0399952, 9882947, 3317868, 58701832, 5746163, 7490724 ####[facility] [address] [place] [address] CO2 [Moles/Vol] 22 mmol/L Normal 21-31 [facility] Comment on above: Performed By: #### 2 414952, 5707703, 8268719, 3043950, 5758980, 63731900, 2518416, 4001708 ####[facility] [address] [place] [address] Creatinine [Mass/Vol] 1.1 mg/dL Normal 0.5-1.3 [facility] Comment on above: Performed By: #### 2 813196, 2625440, 1597402, 6781299, 2666796, 84437403, 6434613, 4943118 ####[facility] [address] [place] [address] Globulin (S) [Mass/Vol] 3.0 g/dL Normal 1.4-4.0 [facility] Comment on above: Performed By: #### 2 555040, 0968396, 0519203, 6750815, 3971846, 72268747, 0683535, 2165040 ####[facility] [address] [place] [address] Glucose [Mass/Vol] 130 mg/dL Normal 55-199 [facility] Comment on above: Result Comment: If t his glucose result represents a fasting glucose, interpretation should refer to the following reference range: 55-99 mg/dL Performed By: #### 2 714474, 1547662, 1477135, 3317598, 7540904, 77217573, 4783332, 3526014 ####[facility] [address] [place] [address] Potassium [Moles/Vol] 4.0 mmol/L Normal 3.5-5.3 [facility] Comment on above: Performed By: #### 2 919188, 6368963, 9652964, 8409005, 0379837, 84654386, 0596385, 1605493 ####[facility] [address] [place] [address] Protein [Mass/Vol] 7.0 g/dL Normal 6.0-7.8 [facility] Comment on above: Performed By: #### 2 451798, 3037634, 1617767, 3174736, 8786305, 68908147, 4635686, 0504591 ####[facility] [id number] [place] [address] Sodium [Moles/Vol] 137 mmol/L Normal 135-145 [facility] Comment on above: Performed By: #### 2 884439, 9800643, 8223328, 8949235, 0639383, 43651672, 1644378, 6538421 ####[facility] [address] [place] [address] Urea nitrogen [Mass/Vol] 15 mg/dL Normal 5-21 [facility] Comment on above: Performed By: #### 2 216017, 0568300, 6747786, 0192834, 5700898, 35782975, 2224674, 2925816 ####[facility] [address] [place] [address] Urea nitrogen/Creatinine [Mass ratio] 14 No Units Normal 10-20 [facility] Comment on above: Performed By: #### 2 388487, 2619495, 9643316, 2373949, 1681126, 07830113, 9459022, 8517896 ####[facility] [address] [place] [address] Family Medicine Office/Clini c Noteon 10-18-2022 Family [...] Daily, # 30 tab(s), Refills(s) 0, [facility], cm, 10/18/22 14:05:00 EDT, Height/Length Dosing, 105.6, kg, 10/18/22 13:58:00 EDT, Weight Dosing CBC w/ Auto Diff Comprehensive Metabolic Panel Free T4 Lab Specimen Collect [id number] Lipid Panel T3 Free Thyroid Stimulating Hormone 2. Weight gain (R63.5: Abnormal weight gain) pt would like to discuss weight loss. has done well on adipex in the past. medication agreement signed Ordered: phentermine, 37.5 mg = 1 tab(s), Oral, Daily, # 30 tab(s), Refills(s) 0, [facility], 161, cm, 10/18/22 14:05:00 EDT, Height/Length Dosing, 105.6, kg, 10/18/22 13:58:00 EDT, Weight Dosing CBC w/ Auto Diff Comprehensive Metabolic Panel Free T4 Lab Specimen Collect [id number] Lipid Panel T3 Free Thyroid Stimulating Hormone [...] Daily, # 30 tab(s), Refills(s) 0, [facility], 161, cm, 10/18/22 14:05:00 EDT, Height/Length Dosing, 105.6, kg, 10/18/22 13:58:00 EDT, Weight Dosing 4. Asthma (J45.909: Unspecified asthma, uncomplicated) albuterol refilled Ordered: phentermine, 37.5 mg = 1 tab(s), Oral, Daily, # 30 tab(s), Refills(s) 0, [facility], 161, cm, 10/18/22 14:05:00 EDT, Height/Length Dosing, 105.6, kg, 10/18/22 13:58:00 EDT, Weight Dosing 5. BMI 40.0-44.9, adult (Z68.41: Body mass index [BMI] 40.0-44.9, adult) BMI education complete Ordered: phentermine, 37.5 mg = 1 tab(s), Oral, Daily, # 30 tab(s), Refills(s) 0, Pharmacy: [facility] 1628, 161, cm, 10/18/22 14:05:00 EDT, Height/Length Dosing, 105.6, kg, 10/18/22 13:58:00 EDT, Weight Dosing CBC w/ Auto Diff Comprehensive Metabolic Panel Free T4 Lab Specimen Collect [id number] Lipid Panel T3 Free Thyroid Stimulating Hormone 6. Non-smoker (Z78.9: Other specified health status) continue not smoking Ordered: phentermine, 37.5 mg = 1 tab(s), Oral, Daily, # 30 tab(s), Refills(s) 0, Pharmacy: [facility] 1628, 161, cm, 10/18/22 14:05:00 EDT, Height/Length Dosing, 105.6, kg, 10/18/22 13:58:00 EDT, Weight Dosing CBC w/ Auto Diff Comprehensive Metabolic Panel Free T4 Lab Specimen Collect [id number] Lipid Panel T3 Free Thyroid Stimulating Hormone Orders: albuterol, 2 puff(s), Inhalation, q4hr for wheezing, 18 gram, Refill(s) 0, [facility], 161, cm, 10/18/22 14:05:00 EDT, Height/Length Dosing, 105.6, kg, 10/18/22 13:58:00 EDT, Weight Dosing Follow-up No qualifying data available Problem List/Past Medical History Ongoing Asthma Cyst of thyroid Weight gai (more content not included)... Normal [facility] Comment on above: Result Comment: Elec tronically Signed By: Cleo Hassan\.br\Date and Time Signed: 10/18/22 14:32 EDT Free T4on 10-18-2022 Free T4 [Mass/Vol] 0.59 ng/dL Normal 0.58-1.64 [facility] Comment on above: Performed By: #### 2 [id number], [id number], [id number], [id number], 2988332, [id number], [id number], [id number] ####[facility] [address] [place] [address] HEMATOLOGYOrdered By: SYSTEM SYSTEM on 10-18-2022 Basophils/100 [...] 32.3 g/dL Normal 31.4 - 36.0 gm/dL [facility] HemeAutoSS MCV (RBC) [Entitic vol] 81.2 fL Normal 80.0 - 100.0 fL [facility] HemeAutoSS Platelet mean volume (Bld) [Entitic vol] 7.8 fL Normal 6.4 - 10.8 fL [facility] HemeAutoSS Platelets (Bld) [#/Vol] 312.0 E9/L Normal 150. 0 - 500.0 E9/L [facility] HemeAutoSS RBC (Bld) [#/Vol] 4.6 E12/L Normal 4.3 - 5.9 E12/L [facility] HemeAutoSS WBC corrected for nucl RBC Auto (Bld) [#/Vol] 8.0 E9/L Normal 4.0 - 11.0 E9/L [facility] HemeAutoSS Lipid Panelon 10-18-2022 Cholesterol [Mass/Vol] 240 mg/dL High 120-200 [facility] Comment on above: Performed By: #### 2 [id number], 4484293, 3447150, 1121750, 0899016, 34360579, 7086623, 8198976 ####[facility] [address] [place] [address] Cholesterol in HDL [Mass/Vol] 44 mg/dL Invalid Interpretation Code [facility] Comment on above: Result Comment: HDL > or equal to 60 mg/dL: Low cardiovascular risk HDL < 40 mg/dL : High cardiovascular risk Performed By: #### 2 968839, 8946031, 0664529, 3035009, 6929347, 93215529, 6045595, 9701408 ####[facility] [address] [place] [address] Cholesterol in LDL [Mass/Vol] 164 mg/dL High <=129 [facility] Comment on above: Performed By: #### 2 504768, 3674635, 2803805, 1450707, 1695134, 00665647, 5945684, 6703023 ####[facility] [address] [place] [address] Cholesterol in VLDL [Mass/Vol] 45 mg/dL High 7-40 [facility] Comment on above: Performed By: #### 2 093197, 6672820, 0610284, 7158750, 7425089, 84608860, 4499362, 1529713 ####[facility] [address] [place] [address] Triglyceride [Mass/Vol] 227 mg/dL High <=149 [facility] Comment on above: Performed By: #### 2 781874, 5455358, 4369612, 4875796, 6989954, 16774789, 2501713, 6780010 ####[facility] [address] [place] [address] TSHon 10-18-2022 TSH Qn 1.59 m[IU]/L Normal 0.34-5.60 [facility] Comment on above: Performed By: #### 2 697581, 0987189, 2659497, 3461426, 9595447, 09443831, 0079100, 6265358 ####[facility] [address] [place] [address] eGFRon 10-18-2022 GFR/1.73 sq M.predicted among non-blacks MDRD (S/P/Bld) [Vol rate/Area] 66 mL/min/1.73 m2 Normal >=59 [facility] Comment on above: Order Comment: Order added by Discern Expert. Result Comment: Building Wrecker yasemin kidney disease could be indicated at eGFR's of less than 60 mL/min/1.73m2. Kidney failure is indicated at less than 15 mL/min/1.73m2. Performed By: #### 2 991008, 1059858, 1730032, 4495053, 5582838, 93615148, 1659030, 6864757 ####[facility] [address] [place] [address] XR KNEE RT 4V or >on 023 [...] WENDY ROMAN Date: 2022-06-28 05:24 Normal [facility] COVID CepheidOrdered By: PRO VIDER TEMP on 02-08-2022 SARS-CoV-2 (COVID-19) Ab IA Ql Negative Negative [facility] Comment on above: This is a duplicate Cepheid Xpert Xpress CoV-2/Flu/RSV Plus RNA by RT-PCR result to be used for statistical tracking purpose only. COVID CepheidOrdered By: Latrice Terry on 02-08-2022 SARS-CoV-2 (COVID-19) RNA GERALD+probe Ql (Unsp spec) [facility] Basophils Auto (Bld) [#/Vol] Ordered By: Nan Brand on 12-28-2021 Basophils (Bld) [#/Vol] 0.0 10*3/uL 0.0-0.2 [facility] Basophils/100 WBC Auto (Bld) Ordered By: Nan Brand on 12-28-2021 Basophils/100 WBC (Bld) 0.4 % . [facility] Creatinine and Glomerular fi ltration rate.predicted panel (S/P/Bld)Ordered By: Nan Brand on 12-28-2021 Creatinine [Mass/Vol] 0.94 mg/dL 0.44-1.03 [facility] Eosinophils Auto (Bld) [#/Vo l]Ordered By: Nan Brand on 12-28-2021 Eosinophils (Bld) [#/Vol] 0.0 10*3/uL 0.0-0.45 [facility] Eosinophils/100 WBC Auto (Bl d)Ordered By: Nan Brand on 12-28-2021 Eosinophils/100 WBC (Bld) 0.0 % . [facility] Erythrocyte distribution wid th Auto (RBC) [Ratio]Ordered By: Nan Brand on 12-28-2021 Erythrocyte distribution width (RBC) [Ratio] 17.6 % 11.9-15.3 [facility] Estimated glomerular filtrat ion rate (GFR) non- AmericanOrdered By: Nan Brand on 12-28-2021 GFR/1.73 sq M.predicted among non-blacks MDRD (S/P/Bld) [Vol rate/Area] > 60 mL/Min [facility] Hematocrit Auto (Bld) [Volum e fraction]Ordered By: Nan Brand on 12-28-2021 Hematocrit (Bld) [Volume fraction] 39.3 % 34.0-46.4 [facility] Hemoglobin [Mass/volume] in BloodOrdered By: Nan Brand on 12-28-2021 Hemoglobin (Bld) [Mass/Vol] 12.6 g/dL 11.8-15.4 [facility] Laboratory - Hematology and Cell countsOrdered By: Nan Brand on 12-28-2021 Nucleated RBC/100 WBC (Bld) [Ratio] 0.0 % 0-0.5 [facility] Leukocytes [#/volume] in Blo od by Automated countOrdered By: Nan Brand on 12-28-2021 WBC (Bld) [#/Vol] 11.2 10*3/uL 4.5-11.0 [facility] Lymphocytes Auto (Bld) [#/Vo l]Ordered By: Nan Brand on 12-28-2021 Lymphocytes (Bld) [#/Vol] 1.0 10*3/uL 1.00-4.8 [facility] Lymphocytes/100 WBC Auto (Bl d)Ordered By: Nan Brand on 12-28-2021 Lymphocytes/100 WBC (Bld) 8.7 % . [facility] MCH Auto (RBC) [Entitic mass ]Ordered By: Nan Brand on 12-28-2021 MCH (RBC) [Entitic mass] 26.5 pg 24.7-34.3 [facility] MCHC Auto (RBC) [Mass/Vol]Or dered By: Nan Brand on 12-28-2021 MCHC (RBC) [Mass/Vol] 32.1 g/dL 32.0-35.0 [facility] MCV Auto (RBC) [Entitic vol] Ordered By: Nan Brand on 12-28-2021 MCV (RBC) [Entitic vol] 82.6 fL 80-100 [facility] Monocytes Auto (Bld) [#/Vol] Ordered By: Nan Brand on 12-28-2021 Monocytes (Bld) [#/Vol] 0.1 10*3/uL 0.0-0.8 [facility] Monocytes/100 WBC Auto (Bld) Ordered By: Nan Brand on 12-28-2021 Monocytes/100 WBC (Bld) 1.3 % . [facility] Neutrophils Auto (Bld) [#/Vo l]Ordered By: Nan Brand on 12-28-2021 Neutrophils (Bld) [#/Vol] 10.0 10*3/uL 1.8-7.7 [facility] Neutrophils/100 WBC Auto (Bl d)Ordered By: Nan Brand on 12-28-2021 Neutrophils/100 WBC (Bld) 89.6 % . [facility] No Panel InformationOrdered By: Nan Brand on 12-28-2021 Estimated GFR () > 60 mL/Min [facility] Comment on above: GFR estimated refere nce range: According to KDOQI guidelines, <60 ml/min/1.73m2 is sufficient to diagnose a patient with chronic kidney disease. Pharmacy Creatinine Clearance (Chem 96.17 [facility] Platelet mean volume Auto (B ld) [Entitic vol]Ordered By: Nan Brand on 12-28-2021 Platelet mean volume (Bld) [Entitic vol] 7.8 fL 6.3-10.7 [facility] Platelets Auto (Bld) [#/Vol] Ordered By: Nan Brand on 12-28-2021 Platelets (Bld) [#/Vol] 315 10*3/uL 150-450 [facility] RBC Auto (Bld) [#/Vol]Ordere d By: Nan Brand on 12-28-2021 RBC (Bld) [#/Vol] 4.76 10*6/uL 3.60-5.00 [facility] Serum or plasma anion gap de terminationOrdered By: Nan Brand on 12-28-2021 Anion gap [Moles/Vol] 13.8 mmol/L 6.0-15.0 [facility] Serum or plasma calcium evelia urement (mass/volume)Ordered By: Nan Brand on 12-28-2021 Calcium [Mass/Vol] 9.4 mg/dL 8.2-10.2 [facility] Serum or plasma chloride kenya surement (moles/volume)Ordered By: Nan Brand on 12-28-2021 Chloride [Moles/Vol] 106 mmol/L 95-114 [facility] Serum or plasma glucose evelia urement (mass/volume)Ordered By: Nan Brand on 12-28-2021 Glucose [Mass/Vol] 162 mg/dL 70-100 [facility] Comment on above: ADA recommended refe rence rangeRandom Glucose Reference Range is dependent on time and content of last meal. Glucose of more than 200 mg/dL in a nonstressed, ambulatory subject supports the diagnosis of Diabetes Mellitus. Serum or plasma potassium me asurement (moles/volume)Ordered By: Nan Brand on 12-28-2021 Potassium [Moles/Vol] 4.3 mmol/L 3.5-5.1 [facility] Serum or plasma sodium measu rement (moles/volume)Ordered By: Nan Brand on 12-28-2021 Sodium [Moles/Vol] 137 mmol/L 136-146 [facility] Serum or plasma total carbon dioxide measurement (moles/volume)Ordered By: Nan Brand on 12-28-2021 CO2 [Moles/Vol] 21.5 mmol/L 22.0-30.0 [facility] Serum or plasma urea nitroge n measurement (mass/volume)Ordered By: Nan Brand on 12-28-2021 Urea nitrogen [Mass/Vol] 9 mg/dL 9-23 [facility] Albumin [Mass/volume] in Ser um or PlasmaOrdered By: Mark Britt on 12-27-2021 Albumin [Mass/Vol] 3.9 g/dL 3.2-5.5 [facility] Basophils Auto (Bld) [#/Vol] Ordered By: Mark Britt on 12-27-2021 Basophils (Bld) [#/Vol] 0.1 10*3/uL 0.0-0.2 [facility] Basophils/100 WBC Auto (Bld) Ordered By: Mark Britt on 12-27-2021 Basophils/100 WBC (Bld) 0.8 % . [facility] COVID CepheidOrdered By: Ramiro Britt on 12-27-2021 SARS-CoV-2 (COVID-19) Ab IA Ql Negative Negative [facility] Comment on above: This is a duplicate AURSOS Xpert Xpress CoV-2/Flu/RSV Plus RNA by RT-PCR result to be used for statistical tracking purpose only. SARS-CoV-2 (COVID-19) RNA GERALD+probe Ql (Unsp spec) [facility] Creatinine and Glomerular fi ltration rate.predicted panel (S/P/Bld)Ordered By: Mark Britt on 12-27-2021 Creatinine [Mass/Vol] 1.03 mg/dL 0.44-1.03 [facility] Direct bilirubin measurement Ordered By: Mark Britt on 12-27-2021 Bilirubin.direct [Mass/Vol] mg/dL 0.0-0.4 [facility] Eosinophils Auto (Bld) [#/Vo l]Ordered By: Mark Britt on 12-27-2021 Eosinophils (Bld) [#/Vol] 0.2 10*3/uL 0.0-0.45 [facility] Eosinophils/100 WBC Auto (Bl d)Ordered By: Mark Britt on 12-27-2021 Eosinophils/100 WBC (Bld) 1.9 % . [facility] Erythrocyte distribution wid th Auto (RBC) [Ratio]Ordered By: Mark Britt on 12-27-2021 Erythrocyte distribution width (RBC) [Ratio] 17.5 % 11.9-15.3 [facility] Estimated glomerular filtrat ion rate (GFR) non- AmericanOrdered By: Mark Britt on 12-27-2021 GFR/1.73 sq M.predicted among non-blacks MDRD (S/P/Bld) [Vol rate/Area] 60 mL/Min [facility] Globulin Calc (S) [Mass/Vol] Ordered By: Mark Britt on 12-27-2021 Globulin (S) [Mass/Vol] 2.9 g/dL [facility] Hematocrit Auto (Bld) [Volum e fraction]Ordered By: Mark Britt on 12-27-2021 Hematocrit (Bld) [Volume fraction] 43.3 % 34.0-46.4 [facility] Hemoglobin [Mass/volume] in BloodOrdered By: Mark Britt on 12-27-2021 Hemoglobin (Bld) [Mass/Vol] 13.7 g/dL 11.8-15.4 [facility] Laboratory - Chemistry and C hemistry - challengeOrdered By: Mark Britt on 12-27-2021 AST [Catalytic activity/Vol] 20 U/L 10-42 [facility] Laboratory - Hematology and Cell countsOrdered By: Mark Britt on 12-27-2021 Nucleated RBC/100 WBC (Bld) [Ratio] 0.1 % 0-0.5 [facility] Leukocytes [#/volume] in Blo od by Automated countOrdered By: Mark Britt on 12-27-2021 WBC (Bld) [#/Vol] 12.6 10*3/uL 4.5-11.0 [facility] Lymphocytes Auto (Bld) [#/Vo l]Ordered By: Mark Britt on 12-27-2021 Lymphocytes (Bld) [#/Vol] 3.0 10*3/uL 1.00-4.8 [facility] Lymphocytes/100 WBC Auto (Bl d)Ordered By: Mark Britt on 12-27-2021 Lymphocytes/100 WBC (Bld) 23.6 % . [facility] MCH Auto (RBC) [Entitic mass ]Ordered By: Mark Britt on 12-27-2021 MCH (RBC) [Entitic mass] 26.5 pg 24.7-34.3 [facility] MCHC Auto (RBC) [Mass/Vol]Or dered By: Mark Britt on 12-27-2021 MCHC (RBC) [Mass/Vol] 31.7 g/dL 32.0-35.0 [facility] MCV Auto (RBC) [Entitic vol] Ordered By: Mark Britt on 12-27-2021 MCV (RBC) [Entitic vol] 83.7 fL 80-100 [facility] Monocytes Auto (Bld) [#/Vol] Ordered By: Mark Britt on 12-27-2021 Monocytes (Bld) [#/Vol] 0.7 10*3/uL 0.0-0.8 [facility] Monocytes/100 WBC Auto (Bld) Ordered By: Mark Britt on 12-27-2021 Monocytes/100 WBC (Bld) 5.7 % . [facility] Neutrophils Auto (Bld) [#/Vo l]Ordered By: Mark Britt on 12-27-2021 Neutrophils (Bld) [#/Vol] 8.6 10*3/uL 1.8-7.7 [facility] Neutrophils/100 WBC Auto (Bl d)Ordered By: Mark Britt on 12-27-2021 Neutrophils/100 WBC (Bld) 68.0 % . [facility] No Panel InformationOrdered By: Mark Britt on 12-27-2021 Estimated GFR () > 60 mL/Min [facility] Comment on above: GFR estimated refere nce range: According to KDOQI guidelines, <60 ml/min/1.73m2 is sufficient to diagnose a patient with chronic kidney disease. Pharmacy Creatinine Clearance (Chem 88.19 [facility] Platelet mean volume Auto (B ld) [Entitic vol]Ordered By: Mark Britt on 12-27-2021 Platelet mean volume (Bld) [Entitic vol] 7.7 fL 6.3-10.7 [facility] Platelets Auto (Bld) [#/Vol] Ordered By: Mark Britt on 12-27-2021 Platelets (Bld) [#/Vol] 324 10*3/uL 150-450 [facility] Protein [Mass/volume] in Ser um or PlasmaOrdered By: Mark Britt on 12-27-2021 Protein [Mass/Vol] 6.8 g/dL 6.1-7.9 [facility] RBC Auto (Bld) [#/Vol]Ordere d By: Mark Britt on 12-27-2021 RBC (Bld) [#/Vol] 5.18 10*6/uL 3.60-5.00 [facility] Serum or plasma alanine reyes otransferase measurement without P-5'-P (enzymatic activiOrdered By: Mark Britt on 12-27-2021 ALT No additional P-5'-P [Catalytic activity/Vol] 16 U/L 10-60 [facility] Serum or plasma albumin/glob ulin mass ratioOrdered By: Mark Britt on 12-27-2021 Albumin/Globulin [Mass ratio] 1.3 {ratio} [facility] Serum or plasma alkaline bossman sphatase measurement (enzymatic activity/volume)Ordered By: Mark Britt on 12-27-2021 ALP [Catalytic activity/Vol] 109 U/L 32-92 [facility] Serum or plasma anion gap de terminationOrdered By: Mark Britt on 12-27-2021 Anion gap [Moles/Vol] See comment 6.0-15.0 [facility] Comment on above: Specimen hemolyzed, redraw requestedPLEASE CALCULATE WITH REDRAW POTASSIUM IF NEEDED Serum or plasma calcium evelia urement (mass/volume)Ordered By: Mark Britt on 12-27-2021 Calcium [Mass/Vol] 9.0 mg/dL 8.2-10.2 [facility] Serum or plasma chloride kenya surement (moles/volume)Ordered By: Mark Britt on 12-27-2021 Chloride [Moles/Vol] 103 mmol/L 95-114 [facility] Serum or plasma glucose evelia urement (mass/volume)Ordered By: Mark Britt on 12-27-2021 Glucose [Mass/Vol] 104 mg/dL 70-100 [facility] Comment on above: ADA recommended refe rence rangeRandom Glucose Reference Range is dependent on time and content of last meal. Glucose of more than 200 mg/dL in a nonstressed, ambulatory subject supports the diagnosis of Diabetes Mellitus. Serum or plasma non-glucuron idated bilirubin measurement (mass/volume)Ordered By: Mark Britt on 12-27-2021 Bilirubin.indirect [Mass/Vol] TNP [facility] Comment on above: Test not performed Serum or plasma potassium me asurement (moles/volume)Ordered By: Mark Britt on 12-27-2021 Potassium [Moles/Vol] 3.7 mmol/L 3.5-5.1 [facility] Serum or plasma sodium measu rement (moles/volume)Ordered By: Mark Britt on 12-27-2021 Sodium [Moles/Vol] 136 mmol/L 136-146 [facility] Serum or plasma total biliru bin measurement (mass/volume)Ordered By: Mark Britt on 12-27-2021 Bilirubin [Mass/Vol] 0.6 mg/dL 0.3-1.2 [facility] Serum or plasma total carbon dioxide measurement (moles/volume)Ordered By: Mark Britt on 12-27-2021 CO2 [Moles/Vol] 18.8 mmol/L 22.0-30.0 [facility] Serum or plasma urea nitroge n measurement (mass/volume)Ordered By: Mark Britt on 12-27-2021 Urea nitrogen [Mass/Vol] 8 mg/dL 9 [facility] Troponin I.cardiac [Mass/vol ume] in Serum or Plasma by High sensitivity methodOrdered By: Mark Britt on 12-27-2021 Troponin I.cardiac High sensitivity method [Mass/Vol] 3 pg/mL 0-15 [facility] Blood hemoglobin measurement (mass/volume)Ordered By: Jp Barba on 11-19-2021 Hemoglobin (Bld) [Mass/Vol] 12.7 g/dL 11.8-15.4 [facility] Creatinine and Glomerular fi ltration rate.predicted panel (S/P/Bld)Ordered By: Jp Barba on 11-19-2021 Creatinine [Mass/Vol] 0.98 mg/dL 0.44-1.03 [facility] Erythrocyte distribution wid th Auto (RBC) [Ratio]Ordered By: Jp Barba on 11-19-2021 Erythrocyte distribution width (RBC) [Ratio] 18.0 % 11.9-15.3 [facility] Estimated glomerular filtrat ion rate (GFR) non- AmericanOrdered By: Jp Barba on 11-19-2021 GFR/1.73 sq M.predicted among non-blacks MDRD (S/P/Bld) [Vol rate/Area] > 60 mL/Min [facility] Hematocrit Auto (Bld) [Volum e fraction]Ordered By: Jp Barba on 11-19-2021 Hematocrit (Bld) [Volume fraction] 39.9 % 34.0-46.4 [facility] Laboratory - Chemistry and C hemistry - challengeOrdered By: Jp Barba on 11-19-2021 Magnesium [Mass/Vol] 1.8 mg/dL 1.6-2.6 [facility] MCH Auto (RBC) [Entitic mass ]Ordered By: Jp Barba on 11-19-2021 MCH (RBC) [Entitic mass] 26.1 pg 24.7-34.3 [facility] MCHC Auto (RBC) [Mass/Vol]Or dered By: Jp Barba on 11-19-2021 MCHC (RBC) [Mass/Vol] 31.8 g/dL 32.0-35.0 [facility] MCV Auto (RBC) [Entitic vol] Ordered By: Jp Barba on 11-19-2021 MCV (RBC) [Entitic vol] 82.2 fL 80-100 [facility] No Panel InformationOrdered By: Jp Barba on 11-19-2021 Estimated GFR () > 60 mL/Min [facility] Comment on above: GFR estimated refere nce range: According to KDOQI guidelines, <60 ml/min/1.73m2 is sufficient to diagnose a patient with chronic kidney disease. Pharmacy Creatinine Clearance (Chem 93.33 [facility] Platelet mean volume Auto (B ld) [Entitic vol]Ordered By: Jp Barba on 11-19-2021 Platelet mean volume (Bld) [Entitic vol] 8.1 fL 6.3-10.7 [facility] Platelets Auto (Bld) [#/Vol] Ordered By: Jp Barba on 11-19-2021 Platelets (Bld) [#/Vol] 334 10*3/uL 150-450 [facility] RBC Auto (Bld) [#/Vol]Ordere d By: Jp Barba on 11-19-2021 RBC (Bld) [#/Vol] 4.86 10*6/uL 3.60-5.00 [facility] Serum or plasma anion gap de terminationOrdered By: Jp Barba on 11-19-2021 Anion gap [Moles/Vol] 15.5 mmol/L 6.0-15.0 [facility] Serum or plasma calcium evelia urement (mass/volume)Ordered By: Jp Barba on 11-19-2021 Calcium [Mass/Vol] 9.5 mg/dL 8.2-10.2 [facility] Serum or plasma chloride kenya surement (moles/volume)Ordered By: Jp Barba on 11-19-2021 Chloride [Moles/Vol] 103 mmol/L 95-114 [facility] Serum or plasma glucose evelia urement (mass/volume)Ordered By: Jp Barba on 11-19-2021 Glucose [Mass/Vol] 149 mg/dL 70-100 [facility] Comment on above: ADA recommended refe rence rangeRandom Glucose Reference Range is dependent on time and content of last meal. Glucose of more than 200 mg/dL in a nonstressed, ambulatory subject supports the diagnosis of Diabetes Mellitus. Serum or plasma potassium me asurement (moles/volume)Ordered By: Jp Barba on 11-19-2021 Potassium [Moles/Vol] 4.5 mmol/L 3.5-5.1 [facility] Serum or plasma sodium measu rement (moles/volume)Ordered By: Jp Barba on 11-19-2021 Sodium [Moles/Vol] 136 mmol/L 136-146 [facility] Serum or plasma total carbon dioxide measurement (moles/volume)Ordered By: Jp Barba on 11-19-2021 CO2 [Moles/Vol] 22.0 mmol/L 22.0-30.0 [facility] Serum or plasma urea nitroge n measurement (mass/volume)Ordered By: Jp Barba on 11-19-2021 Urea nitrogen [Mass/Vol] 13 mg/dL 9-23 [facility] WBC Auto (Bld) [#/Vol]Ordere d By: Jp Barba on 11-19-2021 WBC (Bld) [#/Vol] 17.0 10*3/uL 3.8-11.6 [facility] Basophils Auto (Bld) [#/Vol] Ordered By: Jason Milton on 11-18-2021 Basophils (Bld) [#/Vol] 0.1 10*3/uL 0.0-0.2 [facility] Basophils/100 WBC Auto (Bld) Ordered By: Jason Milton on 11-18-2021 Basophils/100 WBC (Bld) 0.8 % . [facility] Blood hemoglobin measurement (mass/volume)Ordered By: Jason Milton on 11-18-2021 Hemoglobin (Bld) [Mass/Vol] 11.8 g/dL 11.8-15.4 [facility] Blood leukocytes automated c ount (number/volume)Ordered By: Jason Milton on 11-18-2021 WBC (Bld) [#/Vol] 12.0 10*3/uL 4.5-11.0 [facility] Body fluid albumin measureme nt (mass/volume)Ordered By: Jason Milton on 11-18-2021 Albumin (Body fld) [Mass/Vol] 3.8 g/dL 3.2-5.5 [facility] COVID CepheidOrdered By: Donald Milton on 11-18-2021 SARS-CoV-2 (COVID-19) Ab IA Ql Negative Negative [facility] Comment on above: This is a duplicate [employer] Xpert Xpress CoV-2/Flu/RSV Plus RNA by RT-PCR result to be used for statistical tracking purpose only. SARS-CoV-2 (COVID-19) RNA GERALD+probe Ql (Unsp spec) [facility] Creatine kinase [Enzymatic a ctivity/volume] in Serum or PlasmaOrdered By: Jason Milton on 11-18-2021 CK [Catalytic activity/Vol] 78 U/L 22-269 [facility] Creatinine and Glomerular fi ltration rate.predicted panel (S/P/Bld)Ordered By: Jason Milton on 11-18-2021 Creatinine [Mass/Vol] 0.98 mg/dL 0.44-1.03 [facility] Eosinophils Auto (Bld) [#/Vo l]Ordered By: Jason Milton on 11-18-2021 Eosinophils (Bld) [#/Vol] 0.4 10*3/uL 0.0-0.45 [facility] Eosinophils/100 WBC Auto (Bl d)Ordered By: Jason Milton on 11-18-2021 Eosinophils/100 WBC (Bld) 3.1 % . [facility] Erythrocyte distribution wid th Auto (RBC) [Ratio]Ordered By: Jason Milton on 11-18-2021 Erythrocyte distribution width (RBC) [Ratio] 17.5 % 11.9-15.3 [facility] Estimated glomerular filtrat ion rate (GFR) non- AmericanOrdered By: Jason Milton on 11-18-2021 GFR/1.73 sq M.predicted among non-blacks MDRD (S/P/Bld) [Vol rate/Area] > 60 mL/Min [facility] Globulin Calc (S) [Mass/Vol] Ordered By: Jason Milton on 11-18-2021 Globulin (S) [Mass/Vol] 2.9 g/dL F [facility] Hematocrit Auto (Bld) [Volum e fraction]Ordered By: Jason Milton on 11-18-2021 Hematocrit (Bld) [Volume fraction] 37.2 % 34.0-46.4 [facility] Laboratory - Chemistry and C hemistry - challengeOrdered By: Jason Milton on 11-18-2021 Natriuretic peptide B (Bld) [Mass/Vol] 17.0 pg/mL 5-100 [facility] Laboratory - Hematology and Cell countsOrdered By: Jason Milton on 11-18-2021 Nucleated RBC/100 WBC (Bld) [Ratio] 0.1 % 0-0.5 [facility] Lymphocytes Auto (Bld) [#/Vo l]Ordered By: Jason Milton on 11-18-2021 Lymphocytes (Bld) [#/Vol] 2.0 10*3/uL 1.00-4.8 [facility] Lymphocytes/100 WBC Auto (Bl d)Ordered By: Jason Milton on 11-18-2021 Lymphocytes/100 WBC (Bld) 16.7 % . [facility] MCH Auto (RBC) [Entitic mass ]Ordered By: Jason Milton on 11-18-2021 MCH (RBC) [Entitic mass] 25.9 pg 24.7-34.3 [facility] MCHC Auto (RBC) [Mass/Vol]Or dered By: Jason Milton on 11-18-2021 MCHC (RBC) [Mass/Vol] 31.8 g/dL 32.0-35.0 [facility] MCV Auto (RBC) [Entitic vol] Ordered By: Jason Milton on 11-18-2021 MCV (RBC) [Entitic vol] 81.4 fL 80-100 F [facility] Monocytes Auto (Bld) [#/Vol] Ordered By: Jason Milton on 11-18-2021 Monocytes (Bld) [#/Vol] 0.7 10*3/uL 0.0-0.8 [facility] Monocytes/100 WBC Auto (Bld) Ordered By: Jason Milton on 11-18-2021 Monocytes/100 WBC (Bld) 5.6 % . F [facility] Neutrophils Auto (Bld) [#/Vo l]Ordered By: Jason Milton on 11-18-2021 Neutrophils (Bld) [#/Vol] 8.9 10*3/uL 1.8-7.7 [facility] Neutrophils/100 WBC Auto (Bl d)Ordered By: Jason Milton on 11-18-2021 Neutrophils/100 WBC (Bld) 73.8 % . [facility] No Panel InformationOrdered By: Jason Milton on 11-18-2021 Estimated GFR () > 60 mL/Min [facility] Comment on above: GFR estimated refere nce range: According to KDOQI guidelines, <60 ml/min/1.73m2 is sufficient to diagnose a patient with chronic kidney disease. Pharmacy Creatinine Clearance (Chem 94.32 [facility] Platelet mean volume Auto (B ld) [Entitic vol]Ordered By: Jason Milton on 11-18-2021 Platelet mean volume (Bld) [Entitic vol] 7.9 fL 6.3-10.7 [facility] Platelets Auto (Bld) [#/Vol] Ordered By: Jason Milton on 09-28-2022 Platelets (Bld) [#/Vol] 326 10*3/uL 150-450 [facility] Protein [Mass/volume] in Ser um or PlasmaOrdered By: Jason Milton on 11-18-2021 Protein [Mass/Vol] 6.7 g/dL 6.1-7.9 [facility] RBC Auto (Bld) [#/Vol]Ordere d By: Jason Milton on 11-18-2021 RBC (Bld) [#/Vol] 4.57 10*6/uL 3.60-5.00 [facility] Serum or plasma alanine reyes otransferase measurement without P-5'-P (enzymatic activiOrdered By: Jason Milton on 11-18-2021 ALT No additional P-5'-P [Catalytic activity/Vol] 15 U/L 10-60 [facility] Serum or plasma albumin/glob ulin mass ratioOrdered By: Jason Milton on 11-18-2021 Albumin/Globulin [Mass ratio] 1.3 {ratio} [facility] Serum or plasma alkaline bossman sphatase measurement (enzymatic activity/volume)Ordered By: Jason Milton on 11-18-2021 ALP [Catalytic activity/Vol] 99 U/L 32-92 [facility] Serum or plasma anion gap de terminationOrdered By: Jason Milton on 11-18-2021 Anion gap [Moles/Vol] 17.9 mmol/L 6.0-15.0 [facility] Serum or plasma aspartate am inotransferase measurement (enzymatic activity/volume)Ordered By: Jason Milton on 11-18-2021 AST [Catalytic activity/Vol] 22 U/L 10-42 [facility] Serum or plasma calcium evelia urement (mass/volume)Ordered By: Jason Milton on 11-18-2021 Calcium [Mass/Vol] 8.9 mg/dL 8.2-10.2 [facility] Serum or plasma chloride kenya surement (moles/volume)Ordered By: Jason Milton on 11-18-2021 Chloride [Moles/Vol] 99 mmol/L 95-114 [facility] Serum or plasma creatine kin ase MB (CKMB)/total creatine kinase (CK) ratio by calculaOrdered By: Jason Milton on 11-18-2021 CK.MB Calc [Catalytic fraction] 1.2 % 0.00-2.50 [facility] Serum or plasma creatine kin ase MB measurement (mass/volume)Ordered By: Jason Milton on 11-18-2021 CK.MB [Mass/Vol] 1.0 ng/mL 0.6-6.3 [facility] Serum or plasma glucose evelia urement (mass/volume)Ordered By: Jason Milton on 11-18-2021 Glucose [Mass/Vol] 104 mg/dL 70-100 [facility] Comment on above: ADA recommended refe rence rangeRandom Glucose Reference Range is dependent on time and content of last meal. Glucose of more than 200 mg/dL in a nonstressed, ambulatory subject supports the diagnosis of Diabetes Mellitus. Serum or plasma potassium me asurement (moles/volume)Ordered By: Jason Milton on 11-18-2021 Potassium [Moles/Vol] 4.6 mmol/L 3.5-5.1 [facility] Serum or plasma sodium measu rement (moles/volume)Ordered By: Jason Milton on 11-18-2021 Sodium [Moles/Vol] 134 mmol/L 136-146 [facility] Serum or plasma total biliru bin measurement (mass/volume)Ordered By: Jason Milton on 11-18-2021 Bilirubin [Mass/Vol] 1.0 mg/dL 0.3-1.2 [facility] Serum or plasma total carbon dioxide measurement (moles/volume)Ordered By: Jason Milton on 11-18-2021 CO2 [Moles/Vol] 21.7 mmol/L 22.0-30.0 [facility] Serum or plasma urea nitroge n measurement (mass/volume)Ordered By: Jason Milton on 11-18-2021 Urea nitrogen [Mass/Vol] 10 mg/dL 9- [facility] Troponin I.cardiac [Mass/vol ume] in Serum or Plasma by High sensitivity methodOrdered By: Jason Milton on 11-18-2021 Troponin I.cardiac High sensitivity method [Mass/Vol] 3 pg/mL 0-15 [facility] XR Chest 2 Views*on 11-18-19 XR [...] by JANICE JERONIMO on 11/17/2021 1823 Normal [facility] Specialist Q - CULTURE,URINE,ROUTINEon 04-30-2021 CULTURE, URINE, ROUTINE SEE NOTE Normal N orthern [facility] Comment on above: Order Comment: [facility] performed at: [employer], [address] [facility], [address] [place] [address], [id number], Shuttler: Bob Snowden MD [facility] Collection Date/Time: [id number] [facility] Results Received Date/Time: [facility] Reported Date/Time: [id number] Result Comment: CULT URE, URINE, ROUTINE Micro Number: [id number] Test Status: Final Specimen Source: Urine Specimen Quality: Adequate Result: Mixed genital laurence isolated. These superficial bacteria are not indicative of a urinary tract infection. No further organism identification is warranted on this specimen. If clinically indicated, recollect clean-catch, mid-stream urine and transfer immediately to Urine Culture Transport Tube. Performed By: #### [id number] #### [facility] [address] [place] [address] Complete Blood Counton 04-23 Erythrocyte distribution width (RBC) [Ratio] 17.6 % High 11.0-15.0 [facility] Comment on above: Performed By: #### L IPD, CBC, TSH reflex FT4, CMP #### [facility] [address] [place], [place] [id number] Hematocrit (Bld) [Volume fraction] 40.9 % Normal 35.0-47.0 [facility] Comment on above: Performed By: #### L IPD, CBC, TSH reflex FT4, CMP #### [facility] [address] [place], [place] [id number] Hemoglobin (Bld) [Mass/Vol] 12.4 g/dL Normal 11.6-15.5 [facility] Comment on above: Performed By: #### L IPD, CBC, TSH reflex FT4, CMP #### [facility] [address] [place], [place] [id number] MCH (RBC) [Entitic mass] 24.8 pg Low 27.0-33.0 [facility] Comment on above: Performed By: #### L IPD, CBC, TSH reflex FT4, CMP #### [facility] [address] [place], [place] [id number] MCHC (RBC) [Mass/Vol] 30.3 g/dL Low 32.0-36.0 [facility] Comment on above: Performed By: #### L IPD, CBC, TSH reflex FT4, CMP #### [facility] [address] [place], [place] [id number] MCV (RBC) [Entitic vol] 82 fL Normal 80-100 N [facility] Comment on above: Performed By: #### L IPD, CBC, TSH reflex FT4, CMP #### [facility] [address] [place], [place] [id number] Platelet mean volume (Bld) [Entitic vol] 10.30 fL Normal 7.50-12.50 [facility] Comment on above: Performed By: #### L IPD, CBC, TSH reflex FT4, CMP #### [facility] [address] [place], [place] [id number] Platelets (Bld) [#/Vol] 284 10*3/uL Normal 140-400 [facility] Comment on above: Performed By: #### L IPD, CBC, TSH reflex FT4, CMP #### [facility] [address] [place], [place] [id number] RBC (Bld) [#/Vol] 4.99 10*6/uL Normal 3.90-5.20 [facility] Comment on above: Performed By: #### L IPD, CBC, TSH reflex FT4, CMP #### [facility] [address] [place], [place] [id number] RDW-SD 51.6 fL High 37.0-50.0 [facility] Comment on above: Performed By: #### L IPD, CBC, TSH reflex FT4, CMP #### [facility] [address] [place], [place] [id number] WBC (Bld) [#/Vol] 11.3 10*3/uL High 3.8-11.0 [facility] Comment on above: Performed By: #### L IPD, CBC, TSH reflex FT4, CMP #### [facility] [address] [place], [place] [id number] Comprehensive Metabolic Pane beto 04-23-2021 Albumin [Mass/Vol] 4.2 g/dL Normal 3.6-5.1 [facility] Comment on above: Performed By: #### L IPD, CBC, TSH reflex FT4, CMP #### [facility] [address] [place], [place] [id number] Albumin/Globulin [Mass ratio] 1.6 {ratio} Normal 1.0-2.5 [facility] Comment on above: Performed By: #### L IPD, CBC, TSH reflex FT4, CMP #### [facility] [address] [place], [place] [id number] ALP [Catalytic activity/Vol] 88 U/L Normal 35-119 [facility] Comment on above: Performed By: #### L IPD, CBC, TSH reflex FT4, CMP #### [facility] [address] [place], [place] [id number] ALT [Catalytic activity/Vol] 18 U/L Normal 6-33 [facility] Comment on above: Result Comment: 01/21 Female reference range changed. Performed By: #### L IPD, CBC, TSH reflex FT4, CMP #### [facility] [address] [place], [place] [id number] Anion gap [Moles/Vol] 20 mmol/L Normal 12-20 [facility] Comment on above: Result Comment: Effe ctive 02/26/2019 reference range changed. Performed By: #### L IPD, CBC, TSH reflex FT4, CMP #### [facility] [address] [place], [place] [id number] AST [Catalytic activity/Vol] 17 U/L Normal 9-34 [facility] Comment on above: Performed By: #### L IPD, CBC, TSH reflex FT4, CMP #### [facility] [address] [place], [place] [id number] BUN/CREA 16 Ratio Normal 6-22 [facility] Comment on above: Performed By: #### L IPD, CBC, TSH reflex FT4, CMP #### [facility] [address] [place], [place] [id number] Calcium [Mass/Vol] 9.7 mg/dL Normal 8.6-10.2 [facility] Comment on above: Performed By: #### L IPD, CBC, TSH reflex FT4, CMP #### [facility] [address] [place], [place] [id number] Chloride [Moles/Vol] 101 mmol/L Normal 98-107 [facility] Comment on above: Performed By: #### L IPD, CBC, TSH reflex FT4, CMP #### [facility] [address] [place], [place] [id number] CO2 [Moles/Vol] 21 mmol/L Normal 20-31 [facility] Comment on above: Performed By: #### L IPD, CBC, TSH reflex FT4, CMP #### [facility] [address] [place], [place] [id number] Creatinine [Mass/Vol] 1.0 mg/dL Normal 0.6-1.4 [facility] Comment on above: Performed By: #### L IPD, CBC, TSH reflex FT4, CMP #### [facility] [address] [place], [place] [id number] eGFRAA 81 mL/min/1.73m2 Normal >60 [facility] Comment on above: Performed By: #### L IPD, CBC, TSH reflex FT4, CMP #### [facility] [address] [place], [place] [id number] eGFRNAA 67 mL/min/1.73m2 Normal >60 [facility] Comment on above: Performed By: #### L IPD, CBC, TSH reflex FT4, CMP #### [facility] [address] [place], [place] [id number] Globulin (S) [Mass/Vol] 2.6 g/dL Normal 1.9-3.7 [facility] Comment on above: Performed By: #### L IPD, CBC, TSH reflex FT4, CMP #### [facility] [address] [place], [place] [id number] Glucose [Mass/Vol] 106 mg/dL High 65-99 Taisha bad[facility] [place] [employer] Comment on above: Result Comment: For FASTING Glucose --- ADA reference ranges: Normal 65-99 mg/dl Prediabetes 100-125 Diabetes >/= 126 Performed By: #### L IPD, CBC, TSH reflex FT4, CMP #### [facility] [address] [place], [place] [id number] Potassium [Moles/Vol] 4.4 mmol/L Normal 3.5-5.5 [facility] Specialist Comment on above: Performed By: #### L IPD, CBC, TSH reflex FT4, CMP #### [facility] [address] [place], [place] [id number] Protein [Mass/Vol] 6.8 g/dL Normal 6.1-8.1 [employer] [employer] Comment on above: Performed By: #### L IPD, CBC, TSH reflex FT4, CMP #### [facility] [address] [place], [place] [id number] Sodium [Moles/Vol] 138 mmol/L Normal 135-146 Taisha bad[facility] [employer] Comment on above: Performed By: #### L IPD, CBC, TSH reflex FT4, CMP #### [facility] [address] [place], [place] [id number] TBIL <0.3 Normal [facility] Comment on above: Performed By: #### L IPD, CBC, TSH reflex FT4, CMP #### [facility] [address] [place], [place] [id number] Urea nitrogen [Mass/Vol] 15 mg/dL Normal 7-25 [facility] [employer] [facility] Comment on above: Performed By: #### L IPD, CBC, TSH reflex FT4, CMP #### [facility] [address] [place], [place] [id number] Lipid Panelon 04-23-2021 Cholesterol [Mass/Vol] 217 mg/dL High 125-200 [facility] [employer] [facility] Comment on above: Result Comment: Low risk < 200mg/dL Borderline risk 201-239 mg/dl High risk > or equal to 240 Performed By: #### L IPD, CBC, TSH reflex FT4, CMP #### [facility] [address] [place], [place] [id number] Cholesterol in HDL [Mass/Vol] 38 mg/dL Low >40 [facility] Comment on above: Result Comment: High Cardiovascular Risk HDL <40 mg/dL Low Cardiovascular Risk HDL > or equal to 60 mg/dl Performed By: #### L IPD, CBC, TSH reflex FT4, CMP #### [facility] [address] [place], [place] [id number] Cholesterol in LDL [Mass/Vol] 130 mg/dL Normal [facility] Comment on above: Result Comment: LDL ATP III CLASSIFICATION LDL less than 100 mg/dl Optimal LDL 100-129 mg/dl Near or above optimal LDL 130-159 Borderline high LDL 160-189 High LDL greater than 189 mg/dl Very High Performed By: #### L IPD, CBC, TSH reflex FT4, CMP #### [facility] [address] [place], [place] [id number] Cholesterol in VLDL [Mass/Vol] 49 mg/dL Normal [facility] Comment on above: Performed By: #### L IPD, CBC, TSH reflex FT4, CMP #### [facility] [address] [place], [place] [id number] Cholesterol.total/Choles terol in HDL [Mass ratio] 6 {ratio} Normal [facility] Comment on above: Performed By: #### L IPD, CBC, TSH reflex FT4, CMP #### [facility] [address] [place], [place] [id number] Triglyceride [Mass/Vol] 246 mg/dL High 30-150 N orthern [facility] [place] Comment on above: Result Comment: TRIG ATPIII CLASSIFICATIONS TRIG less than 150 mg/dl Normal TRIG 150-199 mg/dl Borderline High TRIG 200-500 mg/dl High TRIG greather than 500 mg/dl Very High Performed By: #### L IPD, CBC, TSH reflex FT4, CMP #### [facility] [address] [place], [place] [id number] TSH w/ Reflex to Free T4on 0 - TSH 3.150 uIU/mL Normal 0.400-4.500 [facility] Comment on above: Performed By: #### L IPD, CBC, TSH reflex FT4, CMP #### [facility] [address] [place], [place] [id number] HCG, ,Urineon 09-28 Beta HCG ( test) Ql (U) Negative Normal NEG [facility] Comment on above: Result Comment: Spec imens with hCG levels near the threshold of the test (25 mIU/mL) may give a negative or indeterminate result. In such cases, another test should be performed with a new specimen in 48-72 hours. If early is suspected clinically in this setting, correlation with quantitative serum b-hCG level is suggested. [facility] has confirmed the use of plasma for this test. This has not been cleared or approved by the U.S. Food and Drug Administration. The FDA has determined that such clearance is not necessary. Performed By: #### B HCG #### [address] [place] [address] #### PROG #### [address] [address] Surgical Pathologyon 019 Surgical Pathology (NOTE) [id number] [facility] CONSULTING PATHOLOGISTS [facility] ANATOMIC PATHOLOGY [address] [place] [id number] SURGICAL PATHOLOGY CONSULTATION Patient Name: MORRO MALONEY [facility] Rec: [id number] Path Number: [id number] Collected: 09/28/2018 Received: 09/29/2018 Reported: 10/02/2018 10:04 [...] 1cs. tm Microscopic Description Microscopic examination performed. [facility] Comment on above: Performed By: #### A HCV, HIVCMB #### [facility] [employer] [facility] [place], [place] [id number] #### GLYHGB #### [address] [place] [address] US GALLBLADDER RUQon 019 US GALLBLADDER RUQ EXAMINATION: GALLBLADDER ULTRASOUND 09/25/2018 8:01 am COMPARISON: None. HISTORY: ORDERING SYSTEM PROVIDED HISTORY: Abdominal pain, right upper quadrant FINDINGS: Visualized portions of the liver without acute abnormality. No focal hepatic mass lesion identified. Parenchymal echogenicity is grossly within normal limits. Borderline gallbladder wall thickening measuring 3-4 mm. Multiple intraluminal calculi identified. Management Developer documents a negative sonographic Magana's sign. The common bile duct is normal and measures 4-5 mm. IMPRESSION: Cholelithiasis and borderline gallbladder wall thickening. No evidence for pericholecystic fluid or sonographic Magana's sign. IMPRESSION: Unremarkable right upper quadrant ultrasound. Interpreted by: Chencho Fonseca MD Signed by: Chencho Fonseca MD 09/25/18 Final result [facility] Cult,Urineon 08-03-2018 Cult,Urine Specimen Description .CLEAN CATCH URINE Special Requests NOT REPORTED Culture NO SIGNIFICANT GROWTH Report Status FINAL 08/03/2018 [facility] Comment on above: Performed By: #### B HCG #### [address] [place] [address] #### PROG #### [facility] [employer] [facility] [place], [place] [id number] CBCon 08-02-2018 Erythrocyte distribution width (RBC) [Ratio] 16.2 % High 11.8-14.4 [facility] Comment on above: Performed By: #### B HCG #### [address] [place] [address] #### PROG #### [address] [address] Hematocrit (Bld) [Volume fraction] 31.0 % Low 36.3-47.1 [facility] Comment on above: Performed By: #### B HCG #### [address] [place] [address] #### PROG #### [address] [address] Hemoglobin (Bld) [Mass/Vol] 9.6 g/dL Low 11.9-15.1 [facility] Comment on above: Performed By: #### B HCG #### [address] [place] [address] #### PROG #### [address] [address] MCH (RBC) [Entitic mass] 25.2 pg Normal 25.2-33.5 [facility] Comment on above: Performed By: #### B HCG #### [address] [place] [address] #### PROG #### [address] [address] MCHC (RBC) [Mass/Vol] 31.0 g/dL Normal 28.4-34.8 [facility] Comment on above: Performed By: #### B HCG #### [address] [place] [address] #### PROG #### [address] [address] MCV (RBC) [Entitic vol] 81.4 fL Low 82.6-102.9 M [facility] Comment on above: Performed By: #### B HCG #### [address] [place] [address] #### PROG #### [address] [address] NRBC Automated 0.0 per 100 WBC Normal 0.0 [facility] Comment on above: Performed By: #### B HCG #### [address] [place] [address] #### PROG #### [address] [address] Platelet mean volume (Bld) [Entitic vol] 10.5 fL Normal 8.1-13.5 [facility] Comment on above: Performed By: #### B HCG #### [address] [place] [address] #### PROG #### [address] [address] Platelets (Bld) [#/Vol] 266 10*3/uL Normal 138-453 [facility] Comment on above: Performed By: #### B HCG #### [address] [place] [address] #### PROG #### [address] [address] RBC (Bld) [#/Vol] 3.81 10*6/uL Low 3.95-5.11 [facility] Comment on above: Performed By: #### B HCG #### [address] [place] [address] #### PROG #### [address] [address] WBC (Bld) [#/Vol] 18.9 10*3/uL High 3.5-11.3 [facility] Comment on above: Performed By: #### B HCG #### [address] [place] [address] #### PROG #### [address] [address] Erythrocyte distribution width (RBC) [Ratio] 16.3 % High 11.8-14.4 [facility] Comment on above: Performed By: #### B HCG #### [address] [place] [address] #### PROG #### [address] [address] Hematocrit (Bld) [Volume fraction] 34.6 % Low 36.3-47.1 [facility] Comment on above: Performed By: #### B HCG #### [address] [place] [address] #### PROG #### [address] [address] Hemoglobin (Bld) [Mass/Vol] 10.4 g/dL Low 11.9-15.1 [facility] Comment on above: Performed By: #### B HCG #### [address] [place] [address] #### PROG #### [address] [address] MCH (RBC) [Entitic mass] 24.9 pg Low 25.2-33.5 [facility] Comment on above: Performed By: #### B HCG #### [address] [place] [address] #### PROG #### [address] [address] MCHC (RBC) [Mass/Vol] 30.1 g/dL Normal 28.4-34.8 [facility] Comment on above: Performed By: #### B HCG #### [address] [place] [address] #### PROG #### [address] [address] MCV (RBC) [Entitic vol] 83.0 fL Normal 82.6-102.9 M [facility] Comment on above: Performed By: #### B HCG #### [address] [place] [address] #### PROG #### [address] [address] NRBC Automated 0.0 per 100 WBC Normal 0.0 [facility] Comment on above: Performed By: #### B HCG #### [address] [place] [address] #### PROG #### [address] [address] Platelet mean volume (Bld) [Entitic vol] 10.2 fL Normal 8.1-13.5 [facility] Comment on above: Performed By: #### B HCG #### [address] [place] [address] #### PROG #### [address] [address] Platelets (Bld) [#/Vol] 307 10*3/uL Normal 138-453 [facility] Comment on above: Performed By: #### B HCG #### [address] [place] [address] #### PROG #### [address] [address] RBC (Bld) [#/Vol] 4.17 10*6/uL Normal 3.95-5.11 [facility] Comment on above: Performed By: #### B HCG #### [address] [place] [address] #### PROG #### [address] [place] [address] WBC (Bld) [#/Vol] 13.1 10*3/uL High 3.5-11.3 [facility] Comment on above: Performed By: #### B HCG #### [address] [place] [address] #### PROG #### [address] [address] Comp Metabolic Profon 2018 (cont.) Normal [facility] Comment on above: Result Comment: Aver age GFR for 30-39 years old: 107 mL/min/1.73sq m Chronic Kidney Disease: <60 mL/min/1.73sq m Kidney failure: <15 mL/min/1.73sq m eGFR calculated using average adult body mass. Additional eGFR calculator available at: http://www.[employer]multiple_crcl_2012.htm Performed By: #### B HCG #### [address] [place] [address] #### PROG #### [address] [place] [address] Albumin [Mass/Vol] 3.0 g/dL Low 3.5-5.2 [facility] Comment on above: Performed By: #### B HCG #### [address] [place] [address] #### PROG #### [facility] [address] [place] [address] Albumin/Globulin [Mass ratio] 1.2 {ratio} Normal 1.0-2.5 [facility] Comment on above: Performed By: #### B HCG #### [address] [place] [address] #### PROG #### [address] [address] Alkaline Phos 117 U/L High 35-104 [facility] Comment on above: Performed By: #### B HCG #### [address] [place] [address] #### PROG #### [address] [address] ALT [Catalytic activity/Vol] 60 U/L High 5-33 [facility] Comment on above: Performed By: #### B HCG #### [address] [place] [address] #### PROG #### [address] [address] Anion gap [Moles/Vol] 12 mmol/L Normal 9-17 [facility] Comment on above: Performed By: #### B HCG #### [address] [place] [address] #### PROG #### [address] [address] AST [Catalytic activity/Vol] 54 U/L High <32 [facility] Comment on above: Performed By: #### B HCG #### [address] [place] [address] #### PROG #### [address] [address] Bilirubin Ql (U) 0.89 mg/dL Normal 0.3-1.2 [facility] Comment on above: Performed By: #### B HCG #### [address] [place] [address] #### PROG #### [address] [address] BUN/CRE Ratio 12 Normal 9-20 [facility] Comment on above: Performed By: #### B HCG #### [address] [place] [address] #### PROG #### [address] [address] Calcium [Mass/Vol] 9.1 mg/dL Normal 8.6-10.4 [facility] Comment on above: Performed By: #### B HCG #### [address] [place] [address] #### PROG #### [address] [address] Chloride [Moles/Vol] 102 mmol/L Normal 98-107 [facility] Comment on above: Performed By: #### B HCG #### [address] [place] [address] #### PROG #### [address] [address] CO2 [Moles/Vol] 21 mmol/L Normal 20-31 [facility] Comment on above: Performed By: #### B HCG #### [address] [place] [address] #### PROG #### [address] [address] Creatinine [Mass/Vol] 0.66 mg/dL Normal 0.50-0.90 [facility] Comment on above: Performed By: #### B HCG #### [address] [place] [address] #### PROG #### [address] [address] GFR, Amer >60 Normal >60 [facility] Comment on above: Performed By: #### B HCG #### [address] [place] [address] #### PROG #### [facility] [address] [place] [address] GFR,non Amer >60 Normal >60 [facility] Comment on above: Performed By: #### B HCG #### [address] [place] [address] #### PROG #### [facility] [address] [place] [address] Glucose [Mass/Vol] 144 mg/dL High 70-99 [facility] Comment on above: Performed By: #### B HCG #### [address] [place] [address] #### PROG #### [facility] [address] [place] [address] Potassium [Moles/Vol] 4.8 mmol/L Normal 3.7-5.3 [facility] Comment on above: Performed By: #### B HCG #### [address] [place] [address] #### PROG #### [facility] [address] [place] [address] Protein [Mass/Vol] 5.6 g/dL Low 6.4-8.3 [facility] Comment on above: Performed By: #### B HCG #### [address] [place] [address] #### PROG #### [facility] [address] [place] [address] Sodium [Moles/Vol] 135 mmol/L Normal 135-144 [facility] Comment on above: Performed By: #### B HCG #### [address] [place] [address] #### PROG #### [address] [address] Staging: Normal [facility] Comment on above: Result Comment: Stag e 1: Some kidney damage normal GFR Stage 2: Mild kidney damage GFR 60-89 Stage 3: Moderate kidney damage GFR 30-59 Stage 4: Severe kidney damage GFR 15-29 Stage 5: Severe kidney damage GFR <15 ESRD - chronic treatment by dialysis or transplant Performed By: #### B HCG #### [address] [place] [address] #### PROG #### [address] [address] Urea nitrogen [Mass/Vol] 8 mg/dL Normal 6-20 [facility] Comment on above: Performed By: #### B HCG #### [address] [place] [address] #### PROG #### [address] [address] (cont.) Normal [facility] Comment on above: Result Comment: Aver age GFR for 30-39 years old: 107 mL/min/1.73sq m Chronic Kidney Disease: <60 mL/min/1.73sq m Kidney failure: <15 mL/min/1.73sq m eGFR calculated using average adult body mass. Additional eGFR calculator available at: http://www.[employer]com/multiple_crcl_2012.htm Performed By: #### B HCG #### [address] [place] [address] #### PROG #### [address] [address] Albumin [Mass/Vol] 3.3 g/dL Low 3.5-5.2 [facility] Comment on above: Performed By: #### B HCG #### [address] [place] [address] #### PROG #### [address] [address] Albumin/Globulin [Mass ratio] 1.1 {ratio} Normal 1.0-2.5 [facility] Comment on above: Performed By: #### B HCG #### [address] [place] [address] #### PROG #### [address] [address] Alkaline Phos 137 U/L High 35-104 [facility] Comment on above: Performed By: #### B HCG #### [address] [place] [address] #### PROG #### [address] [address] ALT [Catalytic activity/Vol] 60 U/L High 5-33 [facility] Comment on above: Performed By: #### B HCG #### [address] [place] [address] #### PROG #### [address] [address] Anion gap [Moles/Vol] 14 mmol/L Normal 9-17 [facility] Comment on above: Performed By: #### B HCG #### [address] [place] [address] #### PROG #### [address] [address] AST [Catalytic activity/Vol] 53 U/L High <32 [facility] Comment on above: Performed By: #### B HCG #### [address] [place] [address] #### PROG #### [address] [address] Bilirubin Ql (U) 0.64 mg/dL Normal 0.3-1.2 [facility] Comment on above: Performed By: #### B HCG #### [address] [place] [address] #### PROG #### [address] [address] BUN/CRE Ratio 11 Normal 9-20 [facility] Comment on above: Performed By: #### B HCG #### [address] [place] [address] #### PROG #### [address] [address] Calcium [Mass/Vol] 9.2 mg/dL Normal 8.6-10.4 [facility] Comment on above: Performed By: #### B HCG #### [address] [place] [address] #### PROG #### [address] [address] Chloride [Moles/Vol] 100 mmol/L Normal 98-107 [facility] Comment on above: Performed By: #### B HCG #### [address] [place] [address] #### PROG #### [address] [address] CO2 [Moles/Vol] 22 mmol/L Normal 20-31 [facility] Comment on above: Performed By: #### B HCG #### [address] [place] [address] #### PROG #### [address] [address] Creatinine [Mass/Vol] 0.62 mg/dL Normal 0.50-0.90 [facility] Comment on above: Performed By: #### B HCG #### [address] [place] [address] #### PROG #### [address] [address] GFR, Amer >60 Normal >60 [facility] Comment on above: Performed By: #### B HCG #### [address] [place] [address] #### PROG #### [address] [address] GFR,non Amer >60 Normal >60 [facility] Comment on above: Performed By: #### B HCG #### [address] [place] [address] #### PROG #### [address] [address] Glucose [Mass/Vol] 90 mg/dL Normal 70-99 [facility] Comment on above: Performed By: #### B HCG #### [address] [place] [address] #### PROG #### [address] [address] Potassium [Moles/Vol] 4.3 mmol/L Normal 3.7-5.3 [facility] Comment on above: Performed By: #### B HCG #### [address] [place] [address] #### PROG #### [address] [address] Protein [Mass/Vol] 6.3 g/dL Low 6.4-8.3 [facility] Comment on above: Performed By: #### B HCG #### [address] [place] [address] #### PROG #### [address] [address] Sodium [Moles/Vol] 136 mmol/L Normal 135-144 [facility] Comment on above: Performed By: #### B HCG #### [address] [place] [address] #### PROG #### [address] [address] Staging: Normal [facility] Comment on above: Result Comment: Stag e 1: Some kidney damage normal GFR Stage 2: Mild kidney damage GFR 60-89 Stage 3: Moderate kidney damage GFR 30-59 Stage 4: Severe kidney damage GFR 15-29 Stage 5: Severe kidney damage GFR <15 ESRD - chronic treatment by dialysis or transplant Performed By: #### B HCG #### [address] [place] [address] #### PROG #### [address] [address] Urea nitrogen [Mass/Vol] 7 mg/dL Normal 6-20 [facility] Comment on above: Performed By: #### B HCG #### [address] [place] [address] #### PROG #### [address] [address] Drug Scr, Abuse, Uron 2018 Amphetamine(s),Ur Negative Normal NEG [facility] Comment on above: Performed By: #### B HCG #### [address] [place] [address] #### PROG #### [address] [address] Barbiturate(s),Ur Negative Normal [facility] Comment on above: Performed By: #### B HCG #### [address] [place] [address] #### PROG #### [address] [address] Base excess Calc (Bld) [Moles/Vol] Negative Normal [facility] Comment on above: Performed By: #### B HCG #### [address] [place] [address] #### PROG #### [address] [address] Benzodiazepine(s) Negative Normal [facility] Comment on above: Performed By: #### B HCG #### [address] [place] [address] #### PROG #### [address] [address] Buprenorphrine, Ur Negative Normal [facility] Comment on above: Performed By: #### B HCG #### [address] [place] [address] #### PROG #### [address] [address] Cannabinoid(s),Ur Negative Normal [facility] Comment on above: Performed By: #### B HCG #### [address] [place] [address] #### PROG #### [address] [address] Methadone Ql (U) Negative Normal [facility] Comment on above: Performed By: #### B HCG #### [address] [place] [address] #### PROG #### [address] [address] Methamphetamine, Ur Negative Normal NEG [facility] Comment on above: Performed By: #### B HCG #### [address] [place] [address] #### PROG #### [address] [address] Opiate(s), Ur Negative Normal NEG [facility] Comment on above: Performed By: #### B HCG #### [address] [place] [address] #### PROG #### [address] [address] Oxycodone, Urine Negative Normal NEG [facility] Comment on above: Performed By: #### B HCG #### [address] [place] [address] #### PROG #### [address] [address] Phencyclidine, Ur Negative Normal NEG [facility] Comment on above: Performed By: #### B HCG #### [address] [place] [address] #### PROG #### [address] [address] Propoxyphene,Urine Negative Normal NEG [facility] Comment on above: Performed By: #### B HCG #### [address] [place] [address] #### PROG #### [address] [address] Tricyclic antidepressants Screen Ql (U) Negative Normal NEG [facility] Comment on above: Result Comment: Drug screen results are to be used for medical purposes only. All positive results are unconfirmed. Testing for employment or legal uses should be sent to a reference laboratory for confirmation. Performed By: #### B HCG #### [address] [place] [address] #### PROG #### [address] [address] Interpretive Info NOT REPORTED Normal [facility] Comment on above: Performed By: #### B HCG #### [address] [place] [address] #### PROG #### [address] [address] MDMA, Urine NOT REPORTED Normal NEG [facility] Comment on above: Performed By: #### B HCG #### [address] [place] [address] #### PROG #### [address] [address] Lactate Dehydrogenaseon 07-22 LDH [Catalytic activity/Vol] 234 U/L High 135-214 [facility] Comment on above: Performed By: #### B HCG #### [address] [place] [address] #### PROG #### [address] [address] Surgical Pathologyon 019 Surgical Pathology (NOTE) [id number] [employer] CONSULTING PATHOLOGISTS [facility] ANATOMIC PATHOLOGY [address] [place] [id number] SURGICAL PATHOLOGY CONSULTATION Patient Name: MORRO MALONEY Juan [facility] Rec: [id number] Path Number: [id number] Collected: 08/02/2018 Received: 08/02/2018 Reported: 08/03/2018 15:34 [...] Normal Insertion into surface: Marginal [place]ES Color: [place], mostly translucent with a partial circummarginate insertion [...] Normal Insertion into surface: Paracentral [place] Color: [place], translucent with a partial circummarginate insertion over [...] capillaries: Not increased Other: Few microcalcifications Normal [facility] Comment on above: Performed By: #### B HCG #### [address] [place] [address] #### PROG #### [address] [address] Type + Screenon 08-02-2018 Type + Screen Sample Expiration 08/04/2018 Arm Band Number [id number] ABO/Rh(D) O POSITIVE Antibody Screen NEGATIVE Normal [facility] Comment on above: Performed By: #### B HCG #### [address] [place] [address] #### PROG #### [address] [address] Uric Acidon 08-02-2018 Urate [Mass/Vol] 5.9 mg/dL High 2.4-5.7 [facility] Comment on above: Performed By: #### B HCG #### [address] [place] [address] #### PROG #### [address] [address] Urinalysis, Routineon 2018 Acetoacetic Acid,Ur Negative Normal NEG [facility] Comment on above: Performed By: #### B HCG #### [address] [place] [address] #### PROG #### [address] [address] Bilirubin, SemiQt,Ur SMALL Abnormal NEG [facility] Comment on above: Performed By: #### B HCG #### [address] [place] [address] #### PROG #### [address] [address] Color (U) YELLOW Normal YEL [facility] Comment on above: Performed By: #### B HCG #### [address] [place] [address] #### PROG #### [address] [address] Glucose Ql (U) Negative Normal [facility] Comment on above: Performed By: #### B HCG #### [address] [place] [address] #### PROG #### [address] [address] Hemoglobin, Ur 3+ Abnormal NEG [facility] Comment on above: Performed By: #### B HCG #### [address] [place] [address] #### PROG #### [address] [address] Leukocyte esterase Test strip Ql (U) SMALL Abnormal NEG [facility] Comment on above: Performed By: #### B HCG #### [address] [place] [address] #### PROG #### [address] [address] Nitrite,Ur Negative Normal [facility] Comment on above: Performed By: #### B HCG #### [address] [place] [address] #### PROG #### [address] [address] pH (U) 6.0 [pH] Normal 5.0-9.0 [facility] Comment on above: Performed By: #### B HCG #### [address] [place] [address] #### PROG #### [address] [address] Protein Ql (U) 1+ Abnormal NEG [facility] Comment on above: Performed By: #### B HCG #### [address] [place] [address] #### PROG #### [address] [address] Specific gravity (U) [Rel density] 1.025 High 1.010-1.020 [facility] Comment on above: Performed By: #### B HCG #### [address] [place] [address] #### PROG #### [address] [address] Turbidity CLEAR Normal CLEAR [facility] Comment on above: Performed By: #### B HCG #### [address] [place] [address] #### PROG #### [address] [address] Urobilinogen,Ur Normal Normal NORM [facility] Comment on above: Performed By: #### B HCG #### [address] [place] [address] #### PROG #### [address] [address] Comment NOT REPORTED Normal [facility] Comment on above: Performed By: #### B HCG #### [address] [place] [address] #### PROG #### [address] [address] Urinalysis,Microon 9 ----- Normal [facility] Comment on above: Performed By: #### B HCG #### [address] [place] [address] #### PROG #### [address] [address] Epithelial cells LM.HPF (Urine sed) [#/Area] 0 TO 2 Normal 0-25 [facility] Comment on above: Performed By: #### B HCG #### [address] [place] [address] #### PROG #### [address] [address] RBC (U) [#/Vol] 10 TO 20 Normal 0-2 [facility] Comment on above: Performed By: #### B HCG #### [address] [place] [address] #### PROG #### [address] [address] WBC (U) [#/Vol] 5 TO 10 Normal 0-5 [facility] Comment on above: Performed By: #### B HCG #### [address] [place] [address] #### PROG #### [address] [address] Amorphous sediment LM Ql (Urine sed) NOT REPORTED Normal NONE [facility] Comment on above: Performed By: #### B HCG #### [address] [place] [address] #### PROG #### [facility] [address] [place] [address] Bacteria LM.HPF (Urine sed) [#/Area] NOT REPORTED Normal NONE [facility] Comment on above: Performed By: #### B HCG #### [address] [place] [address] #### PROG #### [address] [address] Casts LM.LPF (Urine sed) [#/Area] NOT REPORTED Normal [facility] Comment on above: Performed By: #### B HCG #### [address] [place] [address] #### PROG #### [address] [address] Crystals LM Nom (Urine sed) NOT REPORTED Normal [facility] Comment on above: Performed By: #### B HCG #### [address] [place] [address] #### PROG #### [address] [address] Epithelial, Renal NOT REPORTED Normal 0 [facility] Comment on above: Performed By: #### B HCG #### [address] [place] [address] #### PROG #### [facility] [address] [place] [address] Mucus Strands NOT REPORTED Normal NONE [facility] Comment on above: Performed By: #### B HCG #### [address] [place] [address] #### PROG #### [address] [address] Other Observations NOT REPORTED Normal NREQ [facility] Comment on above: Performed By: #### B HCG #### [address] [place] [address] #### PROG #### [address] [address] Trichomonas NOT REPORTED Normal NONE [facility] Comment on above: Performed By: #### B HCG #### [address] [place] [id number] #### PROG #### [address] [address] Yeast LM Ql (Urine sed) NOT REPORTED Normal NONE [facility] Comment on above: Performed By: #### B HCG #### [address] [place] [address] #### PROG #### [address] [address] CBC with Diffon 07-22-2018 Abs. Basophil 0.05 k/uL Normal 0.00-0.20 [facility] Comment on above: Performed By: #### B HCG #### [address] [place] [address] #### PROG #### [address] [address] Abs.Imm.Granulocyte 0.05 k/uL Normal 0.00-0.30 [facility] Comment on above: Performed By: #### B HCG #### [address] [place] [address] #### PROG #### [address] [address] Abs.Neutrophil (Seg) 6.50 k/uL Normal 1.50-8.10 [facility] Comment on above: Performed By: #### B HCG #### [address] [place] [address] #### PROG #### [address] [address] Basophils/100 WBC (Bld) 1 % Normal 0-2 M [facility] Comment on above: Performed By: #### B HCG #### [address] [place] [address] #### PROG #### [address] [address] Eosinophils (Bld) [#/Vol] 0.41 10*3/uL Normal 0.00-0.44 [facility] Comment on above: Performed By: #### B HCG #### [address] [place] [address] #### PROG #### [address] [address] Eosinophils/100 WBC (Bld) 4 % Normal 1-4 [facility] Comment on above: Performed By: #### B HCG #### [address] [place] [address] #### PROG #### [address] [address] Erythrocyte distribution width (RBC) [Ratio] 16.0 % High 11.8-14.4 [facility] Comment on above: Performed By: #### B HCG #### [address] [place] [address] #### PROG #### [address] [address] Hematocrit (Bld) [Volume fraction] 35.8 % Low 36.3-47.1 [facility] Comment on above: Performed By: #### B HCG #### [address] [place] [address] #### PROG #### [address] [address] Hemoglobin (Bld) [Mass/Vol] 10.9 g/dL Low 11.9-15.1 [facility] Comment on above: Performed By: #### B HCG #### [address] [place] [address] #### PROG #### [address] [address] Immature granulocytes (Bld) [#/Vol] 1 % High 0 [facility] Comment on above: Performed By: #### B HCG #### [address] [place] [address] #### PROG #### [address] [address] Lymphocytes (Bld) [#/Vol] 3.07 10*3/uL Normal 1.10-3.70 [facility] Comment on above: Performed By: #### B HCG #### [address] [place] [address] #### PROG #### [address] [address] Lymphocytes/100 WBC (Bld) 28 % Normal 24-43 [facility] Comment on above: Performed By: #### B HCG #### [address] [place] [address] #### PROG #### [address] [address] MCH (RBC) [Entitic mass] 25.6 pg Normal 25.2-33.5 [facility] Comment on above: Performed By: #### B HCG #### [address] [place] [address] #### PROG #### [address] [place] [address] MCHC (RBC) [Mass/Vol] 30.4 g/dL Normal 28.4-34.8 [facility] Comment on above: Performed By: #### B HCG #### [address] [place] [address] #### PROG #### [address] [address] MCV (RBC) [Entitic vol] 84.0 fL Normal 82.6-102.9 [facility] Comment on above: Performed By: #### B HCG #### [address] [place] [address] #### PROG #### [address] [address] Monocytes (Bld) [#/Vol] 0.84 10*3/uL Normal 0.10-1.20 [facility] Comment on above: Performed By: #### B HCG #### [address] [place] [address] #### PROG #### [address] [address] Monocytes/100 WBC (Bld) 8 % Normal 3-12 M [facility] Comment on above: Performed By: #### B HCG #### [address] [place] [address] #### PROG #### [address] [address] Neutrophil (Seg) 58 % Normal 36-65 [facility] Comment on above: Performed By: #### B HCG #### [address] [place] [address] #### PROG #### [address] [address] NRBC Automated 0.0 per 100 WBC Normal 0.0 [facility] Comment on above: Performed By: #### B HCG #### [address] [place] [address] #### PROG #### [address] [address] Platelet mean volume (Bld) [Entitic vol] 10.4 fL Normal 8.1-13.5 [facility] Comment on above: Performed By: #### B HCG #### [address] [place] [address] #### PROG #### [address] [address] Platelets (Bld) [#/Vol] 260 10*3/uL Normal 138-453 [facility] Comment on above: Performed By: #### B HCG #### [address] [place] [address] #### PROG #### [address] [address] RBC (Bld) [#/Vol] 4.26 10*6/uL Normal 3.95-5.11 [facility] Comment on above: Performed By: #### B HCG #### [address] [place] [address] #### PROG #### [address] [address] WBC (Bld) [#/Vol] 10.9 10*3/uL Normal 3.5-11.3 [facility] Comment on above: Performed By: #### B HCG #### [address] [place] [address] #### PROG #### [address] [place] [address] Auto Diff Performed NOT REPORTED Normal [facility] Comment on above: Performed By: #### B HCG #### [address] [place] [address] #### PROG #### [address] [address] Platelets (Bld) [#/Vol] NOT REPORTED Normal [facility] Comment on above: Performed By: #### B HCG #### [address] [place] [address] #### PROG #### [address] [address] RBC morphology finding Nom (Bld) NOT REPORTED Normal [facility] Comment on above: Performed By: #### B HCG #### [address] [place] [address] #### PROG #### [address] [address] WBC Morphology NOT REPORTED Normal [facility] Comment on above: Performed By: #### B HCG #### [address] [place] [address] #### PROG #### [address] [address] Comp Metabolic Profon 2018 (cont.) Normal [facility] Comment on above: Result Comment: Aver age GFR for 30-39 years old: 107 mL/min/1.73sq m Chronic Kidney Disease: <60 mL/min/1.73sq m Kidney failure: <15 mL/min/1.73sq m eGFR calculated using average adult body mass. Additional eGFR calculator available at: http://www.[employer].com/multiple_crcl_2012.htm Performed By: #### B HCG #### [address] [place] [address] #### PROG #### [address] [address] Albumin [Mass/Vol] 3.2 g/dL Low 3.5-5.2 [facility] Comment on above: Performed By: #### B HCG #### [address] [place] [address] #### PROG #### [address] [address] Albumin/Globulin [Mass ratio] 1.1 {ratio} Normal 1.0-2.5 [facility] Comment on above: Performed By: #### B HCG #### [address] [place] [address] #### PROG #### [address] [address] Alkaline Phos 113 U/L High 35-104 [facility] Comment on above: Performed By: #### B HCG #### [address] [place] [address] #### PROG #### [address] [address] ALT [Catalytic activity/Vol] 41 U/L High 5-33 [facility] Comment on above: Performed By: #### B HCG #### [address] [place] [address] #### PROG #### [address] [address] Anion gap [Moles/Vol] 12 mmol/L Normal 9-17 [facility] Comment on above: Performed By: #### B HCG #### [address] [place] [address] #### PROG #### [address] [address] AST [Catalytic activity/Vol] 29 U/L Normal <32 [facility] Comment on above: Performed By: #### B HCG #### [address] [place] [address] #### PROG #### [address] [address] Bilirubin Ql (U) 0.40 mg/dL Normal 0.3-1.2 [facility] Comment on above: Performed By: #### B HCG #### [address] [place] [address] #### PROG #### [address] [address] BUN/CRE Ratio 8 Low 9-20 [facility] Comment on above: Performed By: #### B HCG #### [address] [place] [address] #### PROG #### [address] [address] Calcium [Mass/Vol] 9.2 mg/dL Normal 8.6-10.4 [facility] Comment on above: Performed By: #### B HCG #### [address] [place] [address] #### PROG #### [address] [address] Chloride [Moles/Vol] 104 mmol/L Normal 98-107 [facility] Comment on above: Performed By: #### B HCG #### [address] [place] [address] #### PROG #### [address] [address] CO2 [Moles/Vol] 21 mmol/L Normal 20-31 [facility] Comment on above: Performed By: #### B HCG #### [address] [place] [address] #### PROG #### [address] [address] Creatinine [Mass/Vol] 0.62 mg/dL Normal 0.50-0.90 [facility] Comment on above: Performed By: #### B HCG #### [address] [place] [address] #### PROG #### [address] [address] GFR, Amer >60 Normal >60 [facility] Comment on above: Performed By: #### B HCG #### [address] [place] [address] #### PROG #### [address] [address] GFR,non Amer >60 Normal >60 [facility] Comment on above: Performed By: #### B HCG #### [address] [place] [address] #### PROG #### [address] [address] Glucose [Mass/Vol] 83 mg/dL Normal 70-99 [facility] Comment on above: Performed By: #### B HCG #### [address] [place] [address] #### PROG #### [address] [address] Potassium [Moles/Vol] 4.3 mmol/L Normal 3.7-5.3 [facility] Comment on above: Performed By: #### B HCG #### [address] [place] [address] #### PROG #### [address] [address] Protein [Mass/Vol] 6.0 g/dL Low 6.4-8.3 [facility] Comment on above: Performed By: #### B HCG #### [address] [place] [address] #### PROG #### [address] [address] Sodium [Moles/Vol] 137 mmol/L Normal 135-144 [facility] Comment on above: Performed By: #### B HCG #### [address] [place] [address] #### PROG #### [address] [address] Staging: Normal [facility] Comment on above: Result Comment: Stag e 1: Some kidney damage normal GFR Stage 2: Mild kidney damage GFR 60-89 Stage 3: Moderate kidney damage GFR 30-59 Stage 4: Severe kidney damage GFR 15-29 Stage 5: Severe kidney damage GFR <15 ESRD - chronic treatment by dialysis or transplant Performed By: #### B HCG #### [address] [place] [address] #### PROG #### [address] [address] Urea nitrogen [Mass/Vol] 5 mg/dL Low 6-20 [facility] Comment on above: Performed By: #### B HCG #### [address] [place] [address] #### PROG #### [address] [place] [address] Creatinine,Random Uron 07-22 Creatinine [Mass/Vol] 106.1 mg/dL Normal 28.0-217.0 [facility] Comment on above: Performed By: #### B HCG #### [address] [place] [address] #### PROG #### [address] [address] Cult,Urineon 07-22-2018 Cult,Urine Specimen Description .CLEAN CATCH URINE Special Requests NOT REPORTED Culture NO GROWTH Report Status FINAL 07/21/2018 Normal [facility] Comment on above: Performed By: #### B HCG #### [address] [place] [address] #### PROG #### [address] [address] Protein,Tot,[place] Uron 2018 Tot Prot. Conc. 14 mg/dL Normal [facility] Comment on above: Result Comment: No n ormal range established. Performed By: #### B HCG #### [address] [place] [address] #### PROG #### [address] [address] Uric Acidon 07-22-2018 Urate [Mass/Vol] 5.4 mg/dL Normal 2.4-5.7 [facility] Comment on above: Performed By: #### B HCG #### [address] [place] [address] #### PROG #### [address] [address] CBC with Diffon 07-21-2018 Abs. Basophil 0.06 k/uL Normal 0.00-0.20 [facility] Comment on above: Performed By: #### B HCG #### [address] [place] [address] Abs.Imm.Granulocyte 0.15 k/uL Normal 0.00-0.30 [facility] Comment on above: Performed By: #### B HCG #### [address] [place] [address] Abs.Neutrophil (Seg) 9.77 k/uL High 1.50-8.10 [facility] Comment on above: Performed By: #### B HCG #### [address] [place] [address] Basophils/100 WBC (Bld) 0 % Normal 0-2 [facility] Comment on above: Performed By: #### B HCG #### [address] [place] [address] Eosinophils (Bld) [#/Vol] 0.34 10*3/uL Normal 0.00-0.44 [facility] Comment on above: Performed By: #### B HCG #### [address] [place] [address] Eosinophils/100 WBC (Bld) 2 % Normal 1-4 [facility] Comment on above: Performed By: #### B HCG #### [address] [place] [address] Erythrocyte distribution width (RBC) [Ratio] 15.9 % High 11.8-14.4 [facility] Comment on above: Performed By: #### B HCG #### [address] [place] [address] Hematocrit (Bld) [Volume fraction] 34.5 % Low 36.3-47.1 [facility] Comment on above: Performed By: #### B HCG #### [address] [place], [facility]83 Hemoglobin (Bld) [Mass/Vol] 10.5 g/dL Low 11.9-15.1 [facility] Comment on above: Performed By: #### B HCG #### [address] [place] [address] Immature granulocytes (Bld) [#/Vol] 1 % High 0 [facility] Comment on above: Performed By: #### B HCG #### [address] [place] [address] Lymphocytes (Bld) [#/Vol] 3.00 10*3/uL Normal 1.10-3.70 [facility] Comment on above: Performed By: #### B HCG #### [address] [place] [address] Lymphocytes/100 WBC (Bld) 21 % Low 24-43 [facility] Comment on above: Performed By: #### B HCG #### [address] [place] [address] MCH (RBC) [Entitic mass] 25.5 pg Normal 25.2-33.5 [facility] Comment on above: Performed By: #### B HCG #### [address] [place] [address] MCHC (RBC) [Mass/Vol] 30.4 g/dL Normal 28.4-34.8 [facility] Comment on above: Performed By: #### B HCG #### [address] [place] [address] MCV (RBC) [Entitic vol] 83.9 fL Normal 82.6-102.9 [facility] Comment on above: Performed By: #### B HCG #### [address] [place] [address] Monocytes (Bld) [#/Vol] 1.19 10*3/uL Normal 0.10-1.20 [facility] Comment on above: Performed By: #### B HCG #### [address] [place] [address] Monocytes/100 WBC (Bld) 8 % Normal 3-12 M [facility] Comment on above: Performed By: #### B HCG #### [address] [place] [address] Neutrophil (Seg) 68 % High 36-65 [facility] Comment on above: Performed By: #### B HCG #### [address] [place] [address] NRBC Automated 0.0 per 100 WBC Normal 0.0 [facility] Comment on above: Performed By: #### B HCG #### [address] [place] [address] Platelet mean volume (Bld) [Entitic vol] 9.9 fL Normal 8.1-13.5 [facility] Comment on above: Performed By: #### B HCG #### [address] [place] [address] Platelets (Bld) [#/Vol] 276 10*3/uL Normal 138-453 [facility] Comment on above: Performed By: #### B HCG #### [address] [place] [address] RBC (Bld) [#/Vol] 4.11 10*6/uL Normal 3.95-5.11 [facility] Comment on above: Performed By: #### B HCG #### [address] [place] [address] WBC (Bld) [#/Vol] 14.5 10*3/uL High 3.5-11.3 [facility] Comment on above: Performed By: #### B HCG #### [address] [place] [address] Auto Diff Performed NOT REPORTED Normal [facility] Comment on above: Performed By: #### B HCG #### [address] [place] [address] Platelets (Bld) [#/Vol] NOT REPORTED Normal [facility] Comment on above: Performed By: #### B HCG #### [address] [place] [address] RBC morphology finding Nom (Bld) NOT REPORTED Normal [facility] Comment on above: Performed By: #### B HCG #### [address] [place] [address] WBC Morphology NOT REPORTED Normal [facility] Comment on above: Performed By: #### B HCG #### [address] [place] [address] Comp Metabolic Profon 2018 AST [Catalytic activity/Vol] 33 U/L High <32 [facility] Comment on above: Performed By: #### B HCG #### [address] [place] [address] (cont.) Normal [facility] Comment on above: Result Comment: Aver age GFR for 30-39 years old: 107 mL/min/1.73sq m Chronic Kidney Disease: <60 mL/min/1.73sq m Kidney failure: <15 mL/min/1.73sq m eGFR calculated using average adult body mass. Additional eGFR calculator available at: http://www.[employer]/multiple_crcl_2012.htm Performed By: #### B HCG #### [address] [place] [address] Albumin [Mass/Vol] 3.3 g/dL Low 3.5-5.2 [facility] Comment on above: Performed By: #### B HCG #### [address] [place] [address] Albumin/Globulin [Mass ratio] 1.1 {ratio} Normal 1.0-2.5 [facility] Comment on above: Performed By: #### B HCG #### [address] [place] [address] Alkaline Phos 113 U/L High 35-104 [facility] Comment on above: Performed By: #### B HCG #### [address] [place] [address] ALT [Catalytic activity/Vol] 46 U/L High 5-33 [facility] Comment on above: Performed By: #### B HCG #### [address] [place] [address] Anion gap [Moles/Vol] 13 mmol/L Normal 9-17 [facility] Comment on above: Performed By: #### B HCG #### [address] [place] [address] Bilirubin Ql (U) 0.49 mg/dL Normal 0.3-1.2 [facility] Comment on above: Performed By: #### B HCG #### [address] [place] [address] BUN/CRE Ratio 12 Normal 9-20 [facility] Comment on above: Performed By: #### B HCG #### [address] [place] [address] Calcium [Mass/Vol] 9.5 mg/dL Normal 8.6-10.4 [facility] Comment on above: Performed By: #### B HCG #### [address] [place] [address] Chloride [Moles/Vol] 103 mmol/L Normal 98-107 [facility] Comment on above: Performed By: #### B HCG #### [address] [place] [address] CO2 [Moles/Vol] 20 mmol/L Normal 20-31 [facility] Comment on above: Performed By: #### B HCG #### [address] [place] [address] Creatinine [Mass/Vol] 0.57 mg/dL Normal 0.50-0.90 [facility] Comment on above: Performed By: #### B HCG #### [address] [place] [address] GFR, Amer >60 Normal >60 [facility] Comment on above: Performed By: #### B HCG #### [address] [place] [address] GFR,non Amer >60 Normal >60 [facility] Comment on above: Performed By: #### B HCG #### [address] [place] [address] Glucose [Mass/Vol] 94 mg/dL Normal 70-99 [facility] Comment on above: Performed By: #### B HCG #### [address] [place] [address] Potassium [Moles/Vol] 4.0 mmol/L Normal 3.7-5.3 [facility] Comment on above: Performed By: #### B HCG #### [address] [place] [address] Protein [Mass/Vol] 6.2 g/dL Low 6.4-8.3 [facility] Comment on above: Performed By: #### B HCG #### [address] [place] [address] Sodium [Moles/Vol] 136 mmol/L Normal 135-144 [facility] Comment on above: Performed By: #### B HCG #### [address] [place] [address] Staging: Normal [facility] Comment on above: Result Comment: Stag e 1: Some kidney damage normal GFR Stage 2: Mild kidney damage GFR 60-89 Stage 3: Moderate kidney damage GFR 30-59 Stage 4: Severe kidney damage GFR 15-29 Stage 5: Severe kidney damage GFR <15 ESRD - chronic treatment by dialysis or transplant Performed By: #### B HCG #### [address] [place] [address] Urea nitrogen [Mass/Vol] 7 mg/dL Normal 6-20 [facility] Comment on above: Performed By: #### B HCG #### [address] [place] [address] Urinalysis, Routineon 2018 Acetoacetic Acid,Ur 2+ Abnormal [facility] Comment on above: Performed By: #### B HCG #### [address] [place] [address] Bilirubin, SemiQt,Ur SMALL Abnormal NEG [facility] Comment on above: Performed By: #### B HCG #### [address] [place] [address] Color (U) YELLOW Normal [facility] Comment on above: Performed By: #### B HCG #### [address] [place] [address] Glucose Ql (U) Negative Normal [facility] Comment on above: Performed By: #### B HCG #### [address] [place] [address] Hemoglobin, Ur Negative Normal [facility] Comment on above: Performed By: #### B HCG #### [address] [place] [address] Leukocyte esterase Test strip Ql (U) TRACE Abnormal [facility] Comment on above: Performed By: #### B HCG #### [address] [place] [address] Nitrite,Ur Negative Normal [facility] Comment on above: Performed By: #### B HCG #### [address] [place] [address] pH (U) 5.5 [pH] Normal 5.0-9.0 [facility] Comment on above: Performed By: #### B HCG #### [address] [place] [address] Protein Ql (U) TRACE Abnormal NEG [facility] Comment on above: Performed By: #### B HCG #### [address] [place] [address] Specific gravity (U) [Rel density] 1.025 High 1.010-1.020 [facility] Comment on above: Performed By: #### B HCG #### [address] [place] [address] Turbidity CLEAR Normal CLEAR [facility] Comment on above: Performed By: #### B HCG #### [address] [place] [address] Urobilinogen,Ur Normal Normal NORM [facility] Comment on above: Performed By: #### B HCG #### [address] [place] [address] Comment NOT REPORTED Normal [facility] Comment on above: Performed By: #### B HCG #### [address] [place] [address] Urinalysis,Microon 9 ----- Normal [facility] Comment on above: Performed By: #### B HCG #### [address] [place] [address] Amorphous sediment LM Ql (Urine sed) 1+ Abnormal NONE [facility] Comment on above: Performed By: #### B HCG #### [address] [place] [address] Bacteria LM.HPF (Urine sed) [#/Area] 1+ Abnormal NONE [facility] Comment on above: Performed By: #### B HCG #### [address] [place] [address] Epithelial cells LM.HPF (Urine sed) [#/Area] 2 TO 5 Normal 0-25 [facility] Comment on above: Performed By: #### B HCG #### [address] [place] [id number] Mucus Strands TRACE Abnormal NONE [facility] Comment on above: Performed By: #### B HCG #### [address] [place] [id number] RBC (U) [#/Vol] 0 TO 2 Normal 0-2 [facility] Comment on above: Performed By: #### B HCG #### [address] [place] [id number] WBC (U) [#/Vol] 2 TO 5 Normal 0-5 [facility] Comment on above: Performed By: #### B HCG #### [address] [place] [address] Casts LM.LPF (Urine sed) [#/Area] NOT REPORTED Normal [facility] Comment on above: Performed By: #### B HCG #### [address] [place] [address] Crystals LM Nom (Urine sed) NOT REPORTED Normal [facility] Comment on above: Performed By: #### B HCG #### [address] [place] [address] Epithelial, Renal NOT REPORTED Normal 0 [facility] Comment on above: Performed By: #### B HCG #### [address] [place] [address] Other Observations NOT REPORTED Normal NREQ [facility] Comment on above: Performed By: #### B HCG #### [address] [place] [address] Trichomonas NOT REPORTED Normal NONE [facility] Comment on above: Performed By: #### B HCG #### [address] [place] [address] Yeast LM Ql (Urine sed) NOT REPORTED Normal NONE [facility] Comment on above: Performed By: #### B HCG #### [address] [place] [address] Cult,Urineon 07-20-2018 Cult,Urine Specimen Description .CLEAN CATCH URINE Special Requests NOT REPORTED Culture NO SIGNIFICANT GROWTH Report Status FINAL 07/20/2018 Normal [facility] Comment on above: Performed By: #### B HCG #### [address] [place], [facility]83 APTTon 07-19-2018 aPTT Coag (Bld) [Time] 27.0 s Normal 23.2-34.4 [facility] Comment on above: Performed By: #### B HCG #### [address] [place] [address] CBC with Diffon 07-19-2018 Abs. Basophil 0.05 k/uL Normal 0.00-0.20 [facility] Comment on above: Performed By: #### B HCG #### [address] [place] [address] Abs.Imm.Granulocyte 0.07 k/uL Normal 0.00-0.30 [facility] Comment on above: Performed By: #### B HCG #### [address] [place] [address] Abs.Neutrophil (Seg) 7.01 k/uL Normal 1.50-8.10 [facility] Comment on above: Performed By: #### B HCG #### [address] [place] [address] Basophils/100 WBC (Bld) 0 % Normal 0-2 M [facility] Comment on above: Performed By: #### B HCG #### [address] [place] [address] Eosinophils (Bld) [#/Vol] 0.28 10*3/uL Normal 0.00-0.44 [facility] Comment on above: Performed By: #### B HCG #### [address] [place], [facility]83 Eosinophils/100 WBC (Bld) 2 % Normal 1-4 [facility] Comment on above: Performed By: #### B HCG #### [address] [place] [address] Erythrocyte distribution width (RBC) [Ratio] 15.8 % High 11.8-14.4 [facility] Comment on above: Performed By: #### B HCG #### [address] [place], [facility]83 Hematocrit (Bld) [Volume fraction] 34.1 % Low 36.3-47.1 [facility] Comment on above: Performed By: #### B HCG #### [address] [place], [facility]83 Hemoglobin (Bld) [Mass/Vol] 10.4 g/dL Low 11.9-15.1 [facility] Comment on above: Performed By: #### B HCG #### [address] [place], [facility]83 Immature granulocytes (Bld) [#/Vol] 1 % High 0 [facility] Comment on above: Performed By: #### B HCG #### [address] [place] [address] Lymphocytes (Bld) [#/Vol] 3.12 10*3/uL Normal 1.10-3.70 [facility] Comment on above: Performed By: #### B HCG #### [address] [place] [address] Lymphocytes/100 WBC (Bld) 27 % Normal 24-43 [facility] Comment on above: Performed By: #### B HCG #### [address] [place] [address] MCH (RBC) [Entitic mass] 25.6 pg Normal 25.2-33.5 [facility] Comment on above: Performed By: #### B HCG #### [address] [place] [address] MCHC (RBC) [Mass/Vol] 30.5 g/dL Normal 28.4-34.8 [facility] Comment on above: Performed By: #### B HCG #### [address] [place] [address] MCV (RBC) [Entitic vol] 84.0 fL Normal 82.6-102.9 [facility] Comment on above: Performed By: #### B HCG #### [address] [place] [address] Monocytes (Bld) [#/Vol] 0.93 10*3/uL Normal 0.10-1.20 [facility] Comment on above: Performed By: #### B HCG #### [address] [place] [address] Monocytes/100 WBC (Bld) 8 % Normal 3-12 M [facility] Comment on above: Performed By: #### B HCG #### [address] [place] [address] Neutrophil (Seg) 62 % Normal 36-65 [facility] Comment on above: Performed By: #### B HCG #### [address] [place] [address] NRBC Automated 0.0 per 100 WBC Normal 0.0 [facility] Comment on above: Performed By: #### B HCG #### [address] [place] [address] Platelet mean volume (Bld) [Entitic vol] 9.8 fL Normal 8.1-13.5 [facility] Comment on above: Performed By: #### B HCG #### [address] [place] [address] Platelets (Bld) [#/Vol] 277 10*3/uL Normal 138-453 [facility] Comment on above: Performed By: #### B HCG #### [address] [place] [address] RBC (Bld) [#/Vol] 4.06 10*6/uL Normal 3.95-5.11 [facility] Comment on above: Performed By: #### B HCG #### [address] [place] [address] WBC (Bld) [#/Vol] 11.5 10*3/uL High 3.5-11.3 [facility] Comment on above: Performed By: #### B HCG #### [address] [place] [address] Auto Diff Performed NOT REPORTED Normal [facility] Comment on above: Performed By: #### B HCG #### [address] [place] [address] Platelets (Bld) [#/Vol] NOT REPORTED Normal [facility] Comment on above: Performed By: #### B HCG #### [address] [place] [address] RBC morphology finding Nom (Bld) NOT REPORTED Normal [facility] Comment on above: Performed By: #### B HCG #### [address] [place] [address] WBC Morphology NOT REPORTED Normal [facility] Comment on above: Performed By: #### B HCG #### [address] [place] [address] Comp Metabolic Profon 2018 (cont.) Normal [facility] Comment on above: Result Comment: Aver age GFR for 30-39 years old: 107 mL/min/1.73sq m Chronic Kidney Disease: <60 mL/min/1.73sq m Kidney failure: <15 mL/min/1.73sq m eGFR calculated using average adult body mass. Additional eGFR calculator available at: http://www.[employer]multiple_crcl_2011.htm Performed By: #### B HCG #### [address] [place] [id number] Albumin [Mass/Vol] 3.3 g/dL Low 3.5-5.2 [facility] Comment on above: Performed By: #### B HCG #### [address] [place] [address] Albumin/Globulin [Mass ratio] 1.2 {ratio} Normal 1.0-2.5 [facility] Comment on above: Performed By: #### B HCG #### [address] [place] [address] Alkaline Phos 108 U/L High 35-104 [facility] Comment on above: Performed By: #### B HCG #### [address] [place] [address] ALT [Catalytic activity/Vol] 40 U/L High 5-33 [facility] Comment on above: Performed By: #### B HCG #### [address] [place] [address] Anion gap [Moles/Vol] 11 mmol/L Normal 9-17 [facility] Comment on above: Performed By: #### B HCG #### [address] [place] [address] AST [Catalytic activity/Vol] 32 U/L High <32 [facility] Comment on above: Performed By: #### B HCG #### [address] [place] [address] Bilirubin Ql (U) 0.48 mg/dL Normal 0.3-1.2 [facility] Comment on above: Performed By: #### B HCG #### [address] [place] [address] BUN/CRE Ratio 12 Normal 9-20 [facility] Comment on above: Performed By: #### B HCG #### [address] [place] [address] Calcium [Mass/Vol] 9.4 mg/dL Normal 8.6-10.4 [facility] Comment on above: Performed By: #### B HCG #### [address] [place] [address] Chloride [Moles/Vol] 103 mmol/L Normal 98-107 [facility] Comment on above: Performed By: #### B HCG #### [address] [place] [address] CO2 [Moles/Vol] 22 mmol/L Normal 20-31 [facility] Comment on above: Performed By: #### B HCG #### [address] [place] [address] Creatinine [Mass/Vol] 0.66 mg/dL Normal 0.50-0.90 [facility] Comment on above: Performed By: #### B HCG #### [address] [place] [address] GFR, Amer >60 Normal >60 [facility] Comment on above: Performed By: #### B HCG #### [address] [place] [address] GFR,non Amer >60 Normal >60 [facility] Comment on above: Performed By: #### B HCG #### [address] [place] [address] Glucose [Mass/Vol] 86 mg/dL Normal 70-99 [facility] Comment on above: Performed By: #### B HCG #### [address] [place] [address] Potassium [Moles/Vol] 4.3 mmol/L Normal 3.7-5.3 [facility] Comment on above: Performed By: #### B HCG #### [address] [place] [address] Protein [Mass/Vol] 6.0 g/dL Low 6.4-8.3 [facility] Comment on above: Performed By: #### B HCG #### [address] [place] [address] Sodium [Moles/Vol] 136 mmol/L Normal 135-144 [facility] Comment on above: Performed By: #### B HCG #### [address] [place] [address] Staging: Normal [facility] Comment on above: Result Comment: Stag e 1: Some kidney damage normal GFR Stage 2: Mild kidney damage GFR 60-89 Stage 3: Moderate kidney damage GFR 30-59 Stage 4: Severe kidney damage GFR 15-29 Stage 5: Severe kidney damage GFR <15 ESRD - chronic treatment by dialysis or transplant Performed By: #### B HCG #### [address] [place] [address] Urea nitrogen [Mass/Vol] 8 mg/dL Normal 6-20 [facility] Comment on above: Performed By: #### B HCG #### [address] [place] [address] Fibrinogenon 07-19-2018 Fibrinogen 498 mg/dL High 185-451 [facility] Comment on above: Performed By: #### B HCG #### [address] [place] [address] PTon 07-19-2018 INR Coag (PPP) [Relative time] 1.0 {INR} Normal 0.9-1.2 [facility] Comment on above: Performed By: #### B HCG #### [address] [place] [address] PT Coag (PPP) [Time] 10.0 s Normal 9.7-12.2 [facility] Comment on above: Performed By: #### B HCG #### [address] [place], [facility] Protein,Tot,[place]ron 2018 Creatinine [Mass/Vol] 218.9 mg/dL High 28.0-217.0 [facility] Comment on above: Performed By: #### B HCG #### [address] [place] [address] TP/Cre Ratio 0.11 Normal 0.00-0.20 [facility] Comment on above: Performed By: #### B HCG #### [address] [place] [address] Tot Prot. Conc. 23 mg/dL Normal [facility] Comment on above: Result Comment: No n ormal range established. Performed By: #### B HCG #### [address] [place], [place] [address] US BIOPHYSICAL PROFILE WO NON STRESS TESTINGon [...] MD 07/19/18 Edited Result - FINAL Normal [facility] US OB TRANSVAGINALon 019 US OB [...] Cesario Ku MD 07/19/18 Final result Normal [facility] Uric Acidon 07-19-2018 Urate [Mass/Vol] 5.8 mg/dL High 2.4-5.7 [facility] Comment on above: Performed By: #### B HCG #### [address] [place] [address] Urinalysis, Routineon 2018 Acetoacetic Acid,Ur 1+ Abnormal NEG [facility] Comment on above: Performed By: #### B HCG #### [address] [place] [address] Bilirubin, SemiQt,Ur SMALL Abnormal NEG [facility] Comment on above: Performed By: #### B HCG #### [address] [place] [address] Color (U) YELLOW Normal YEL [facility] Comment on above: Performed By: #### B HCG #### [address] [place] [address] Glucose Ql (U) Negative Normal NEG [facility] Comment on above: Performed By: #### B HCG #### [address] [place] [address] Hemoglobin, Ur Negative Normal [facility] Comment on above: Performed By: #### B HCG #### [address] [place] [address] Leukocyte esterase Test strip Ql (U) LARGE Abnormal NEG [facility] Comment on above: Performed By: #### B HCG #### [address] [place] [address] Nitrite,Ur Negative Normal [facility] Comment on above: Performed By: #### B HCG #### [address] [place] [address] pH (U) 6.0 [pH] Normal 5.0-9.0 [facility] Comment on above: Performed By: #### B HCG #### [address] [place] [address] Protein Ql (U) TRACE Abnormal [facility] Comment on above: Performed By: #### B HCG #### [address] [place] [address] Specific gravity (U) [Rel density] 1.025 High 1.010-1.020 [facility] Comment on above: Performed By: #### B HCG #### [address] [place] [address] Turbidity CLOUDY Abnormal CLEAR [facility] Comment on above: Performed By: #### B HCG #### [address] [place] [address] Urobilinogen,Ur Normal Normal NORM [facility] Comment on above: Performed By: #### B HCG #### [address] [place] [address] Comment NOT REPORTED Normal [facility] Comment on above: Performed By: #### B HCG #### [address] [place] [address] Urinalysis,Microon 9 ----- Normal [facility] Comment on above: Performed By: #### B HCG #### [address] [place] [address] Bacteria LM.HPF (Urine sed) [#/Area] 3+ Abnormal NONE [facility] Comment on above: Performed By: #### B HCG #### [address] [place] [address] Epithelial cells LM.HPF (Urine sed) [#/Area] 10 TO 20 Normal 0-25 [facility] Comment on above: Performed By: #### B HCG #### [address] [place] [address] RBC (U) [#/Vol] None Normal 0-2 [facility] Comment on above: Performed By: #### B HCG #### [address] [place] [address] WBC (U) [#/Vol] 20 TO 50 Normal 0-5 [facility] Comment on above: Performed By: #### B HCG #### [address] [place] [address] Amorphous sediment LM Ql (Urine sed) NOT REPORTED Normal [facility] Comment on above: Performed By: #### B HCG #### [address] [place] [address] Casts LM.LPF (Urine sed) [#/Area] NOT REPORTED Normal [facility] Comment on above: Performed By: #### B HCG #### [address] [place] [address] Crystals LM Nom (Urine sed) NOT REPORTED Normal NONE [facility] Comment on above: Performed By: #### B HCG #### [address] [place] [address] Epithelial, Renal NOT REPORTED Normal 0 [facility] Comment on above: Performed By: #### B HCG #### [address] [place] [address] Mucus Strands NOT REPORTED Normal NONE [facility] Comment on above: Performed By: #### B HCG #### [address] [place] [address] Other Observations NOT REPORTED Normal NREQ [facility] Comment on above: Performed By: #### B HCG #### [address] [place] [address] Trichomonas NOT REPORTED Normal NONE [facility] Comment on above: Performed By: #### B HCG #### [address] [place] [address] Yeast LM Ql (Urine sed) NOT REPORTED Normal NONE [facility] Comment on above: Performed By: #### B HCG #### [address] [place] [address] Glucose Zeke. 3 hron 05-07-20 19 3 Hr 156 mg/dL High 65-139 [facility] Comment on above: Performed By: #### B HCG #### [address] [place] [address] 2 Hr 168 mg/dL High 65-154 [facility] Comment on above: Performed By: #### B HCG #### [address] [place] [address] 1 Hr 163 mg/dL Normal 65-179 [facility] Comment on above: Performed By: #### B HCG #### [address] [place] [address] Fasting 87 mg/dL Normal 65-94 [facility] Comment on above: Performed By: #### B HCG #### [address] [place] [address] Glucose [Mass/Vol] 100 g Normal [facility] Comment on above: Performed By: #### B HCG #### [address] [place] [address] CBC with Diffon 06-12-2018 Abs. Basophil 0.06 k/uL Normal 0.00-0.20 [facility] Comment on above: Performed By: #### P ASHLEY #### [address] [address] Abs.Imm.Granulocyte 0.09 k/uL Normal 0.00-0.30 [facility] Comment on above: Performed By: #### P ASHLEY #### [address] [place] [address] Abs.Neutrophil (Seg) 10.61 k/uL High 1.50-8.10 [facility] Comment on above: Performed By: #### P ASHLEY #### [address] [place] [address] Basophils/100 WBC (Bld) 0 % Normal 0-2 M [facility] Comment on above: Performed By: #### P ASHLEY #### [address] [place] [address] Eosinophils (Bld) [#/Vol] 0.16 10*3/uL Normal 0.00-0.44 [facility] Comment on above: Performed By: #### P ASHLEY #### [address] [place] [address] Eosinophils/100 WBC (Bld) 1 % Normal 1-4 [facility] Comment on above: Performed By: #### P ASHLEY #### [address] [address] Erythrocyte distribution width (RBC) [Ratio] 14.8 % High 11.8-14.4 [facility] Comment on above: Performed By: #### P ASHLEY #### [address] [address] Hematocrit (Bld) [Volume fraction] 36.1 % Low 36.3-47.1 [facility] Comment on above: Performed By: #### P ASHLEY #### [address] [address] Hemoglobin (Bld) [Mass/Vol] 11.6 g/dL Low 11.9-15.1 [facility] Comment on above: Performed By: #### P ASHLEY #### [address] [address] Immature granulocytes (Bld) [#/Vol] 1 % High 0 [facility] Comment on above: Performed By: #### P ASHLEY #### [address] [address] Lymphocytes (Bld) [#/Vol] 3.44 10*3/uL Normal 1.10-3.70 [facility] Comment on above: Performed By: #### P ASHLEY #### [address] [address] Lymphocytes/100 WBC (Bld) 23 % Low 24-43 [facility] Comment on above: Performed By: #### P ASHLEY #### [address] [address] MCH (RBC) [Entitic mass] 27.0 pg Normal 25.2-33.5 [facility] Comment on above: Performed By: #### P ASHLEY #### [address] [address] MCHC (RBC) [Mass/Vol] 32.1 g/dL Normal 28.4-34.8 [facility] Comment on above: Performed By: #### P ASHLEY #### [address] [address] MCV (RBC) [Entitic vol] 84.1 fL Normal 82.6-102.9 [facility] Comment on above: Performed By: #### P ASHLEY #### [address] [address] Monocytes (Bld) [#/Vol] 0.85 10*3/uL Normal 0.10-1.20 [facility] Comment on above: Performed By: #### P ASHLEY #### [address] [address] Monocytes/100 WBC (Bld) 6 % Normal 3-12 M [facility] Comment on above: Performed By: #### P ASHLEY #### [address] [address] Neutrophil (Seg) 69 % High 36-65 [facility] Comment on above: Performed By: #### P ASHLEY #### [address] [address] NRBC Automated 0.0 per 100 WBC Normal 0.0 [facility] Comment on above: Performed By: #### P ASHLEY #### [address] [address] Platelet mean volume (Bld) [Entitic vol] 10.0 fL Normal 8.1-13.5 [facility] Comment on above: Performed By: #### P ASHLEY #### [address] [address] Platelets (Bld) [#/Vol] 333 10*3/uL Normal 138-453 [facility] Comment on above: Performed By: #### P ASHLEY #### [address] [address] RBC (Bld) [#/Vol] 4.29 10*6/uL Normal 3.95-5.11 [facility] Comment on above: Performed By: #### P ASHLEY #### [address] [address] WBC (Bld) [#/Vol] 15.2 10*3/uL High 3.5-11.3 [facility] Comment on above: Performed By: #### P ASHLEY #### [address] [address] Auto Diff Performed NOT REPORTED Normal [facility] Comment on above: Performed By: #### P ASHLEY #### [address] [address] Platelets (Bld) [#/Vol] NOT REPORTED Normal [facility] Comment on above: Performed By: #### P ASHLEY #### [address] [address] RBC morphology finding Nom (Bld) NOT REPORTED Normal [facility] Comment on above: Performed By: #### P ASHLEY #### [address] [address] WBC Morphology NOT REPORTED Normal [facility] Comment on above: Performed By: #### P ASHLEY #### [address] [address] Comp Metabolic Profon 2018 (cont.) Normal [facility] Comment on above: Result Comment: Aver age GFR for 30-39 years old: 107 mL/min/1.73sq m Chronic Kidney Disease: <60 mL/min/1.73sq m Kidney failure: <15 mL/min/1.73sq m eGFR calculated using average adult body mass. Additional eGFR calculator available at: http://www.[employer]/multiple_crcl_2011.htm Performed By: #### P ASHLEY #### [facility] [address] [place] [address] Albumin [Mass/Vol] 3.5 g/dL Normal 3.5-5.2 [facility] Comment on above: Performed By: #### P ASHLEY #### [facility] HospitalFix[facility]ix Inc[facility] [address] [place] [address] Albumin/Globulin [Mass ratio] 1.1 {ratio} Normal 1.0-2.5 [facility] Comment on above: Performed By: #### P ASHLEY #### [address] [address] Alkaline Phos 99 U/L Normal 35-104 [facility] Comment on above: Performed By: #### P ASHLEY #### [facility] [employer] [address] [place] [address] ALT [Catalytic activity/Vol] 22 U/L Normal 5-33 [facility] Comment on above: Performed By: #### P ASHLEY #### [address] [address] Anion gap [Moles/Vol] 12 mmol/L Normal 9-17 [facility] Comment on above: Performed By: #### P ASHLEY #### [facility] [employer] [address] [place] [address] AST [Catalytic activity/Vol] 18 U/L Normal <32 [facility] Comment on above: Performed By: #### P ASHLEY #### [facility] [employer] [address] [place] [address] Bilirubin Ql (U) 0.39 mg/dL Normal 0.3-1.2 [facility] Comment on above: Performed By: #### P ASHLEY #### [facility] [employer] [address] [place] [address] BUN/CRE Ratio 13 Normal 9-20 [facility] Comment on above: Performed By: #### P ASHLEY #### [address] [address] Calcium [Mass/Vol] 10.1 mg/dL Normal 8.6-10.4 [facility] Comment on above: Performed By: #### P ASHLEY #### [address] [address] Chloride [Moles/Vol] 102 mmol/L Normal 98-107 [facility] Comment on above: Performed By: #### P ASHLEY #### [address] [address] CO2 [Moles/Vol] 20 mmol/L Normal 20-31 [facility] Comment on above: Performed By: #### P ASHLEY #### [address] [address] Creatinine [Mass/Vol] 0.56 mg/dL Normal 0.50-0.90 [facility] Comment on above: Performed By: #### P ASHLEY #### [address] [address] GFR, Amer >60 Normal >60 [facility] Comment on above: Performed By: #### P ASHLEY #### [address] [address] GFR,non Amer >60 Normal >60 [facility] Comment on above: Performed By: #### P ASHLEY #### [address] [address] Glucose [Mass/Vol] 78 mg/dL Normal 70-99 [facility] Comment on above: Performed By: #### P ASHLEY #### [address] [address] Potassium [Moles/Vol] 4.2 mmol/L Normal 3.7-5.3 [facility] Comment on above: Performed By: #### P ASHLEY #### [employer] [address] [place] [address] Protein [Mass/Vol] 6.6 g/dL Normal 6.4-8.3 [facility] Comment on above: Performed By: #### P ASHLEY #### [address] [address] Sodium [Moles/Vol] 134 mmol/L Low 135-144 [facility] Comment on above: Performed By: #### P ASHLEY #### [address] [id number] Staging: Normal [facility] Comment on above: Result Comment: Stag e 1: Some kidney damage normal GFR Stage 2: Mild kidney damage GFR 60-89 Stage 3: Moderate kidney damage GFR 30-59 Stage 4: Severe kidney damage GFR 15-29 Stage 5: Severe kidney damage GFR <15 ESRD - chronic treatment by dialysis or transplant Performed By: #### P ASHLEY #### [address] [address] Urea nitrogen [Mass/Vol] 7 mg/dL Normal 6-20 [facility] Comment on above: Performed By: #### P ASHLEY #### [employer] [id number] US OB 14 PLUS WEEKS SINGLE O [...] MD 06/12/18 Edited Result - FINAL Normal [facility] US OB GREATER THAN 14 WEEKS [...] Keaton Denton MD 06/12/18 Final result Normal [facility] US OB TRANSVAGINALon 019 US OB [...] Keaton Denton MD 06/12/18 Final result Normal [facility] Urinalysis w/ Microon 2018 ----- Normal [facility] Comment on above: Performed By: #### P ASHLEY #### [facility] [employer] [facility] [place] [address] Acetoacetic Acid,Ur 1+ Abnormal NEG [facility] Comment on above: Performed By: #### P ASHLEY #### [address] [address] Amorphous sediment LM Ql (Urine sed) 4+ Abnormal [facility] Comment on above: Performed By: #### P ASHLEY #### [address] [address] Bacteria LM.HPF (Urine sed) [#/Area] 1+ Abnormal [facility] Comment on above: Performed By: #### P ASHLEY #### [address] [address] Bilirubin, SemiQt,Ur SMALL Abnormal [facility] Comment on above: Performed By: #### P ASHLEY #### [address] [address] Color (U) YELLOW [facility] Comment on above: Performed By: #### P ASHLEY #### [address] [address] Epithelial cells LM.HPF (Urine sed) [#/Area] 0 TO 2 Normal 0-25 [facility] Comment on above: Performed By: #### P ASHLEY #### [address] [address] Glucose Ql (U) Negative Normal [facility] Comment on above: Performed By: #### P ASHLEY #### [address] [address] Hemoglobin, Ur Negative Normal [facility] Comment on above: Performed By: #### P ASHLEY #### [address] [address] Leukocyte esterase Test strip Ql (U) SMALL Abnormal [facility] Comment on above: Performed By: #### P ASHLEY #### [address] [address] Nitrite,Ur Negative Normal NEG [facility] Comment on above: Performed By: #### P ASHLEY #### [address] [address] pH (U) 5.5 [pH] Normal 5.0-9.0 [facility] Comment on above: Performed By: #### P ASHLEY #### [address] [address] Protein Ql (U) TRACE Abnormal NEG [facility] Comment on above: Performed By: #### P ASHLEY #### [address] [address] RBC (U) [#/Vol] 0 TO 2 Normal 0-2 [facility] Comment on above: Performed By: #### P ASHLEY #### [address] [address] Specific gravity (U) [Rel density] >1.030 High 1.010-1.020 [facility] Comment on above: Performed By: #### P ASHLEY #### [address] [address] Turbidity CLOUDY Abnormal CLEAR [facility] Comment on above: Performed By: #### P ASHLEY #### [address] [address] Urobilinogen,Ur Normal Normal NORM [facility] Comment on above: Performed By: #### P ASHLEY #### [address] [address] WBC (U) [#/Vol] 2 TO 5 Normal 0-5 [facility] Comment on above: Performed By: #### P ASHLEY #### [address] [address] Casts LM.LPF (Urine sed) [#/Area] NOT REPORTED Normal [facility] Comment on above: Performed By: #### P ASHLEY #### [address] [address] Comment NOT REPORTED Normal [facility] Comment on above: Performed By: #### P ASHLEY #### [address] [address] Crystals LM Nom (Urine sed) NOT REPORTED Normal NONE [facility] Comment on above: Performed By: #### P ASHLEY #### [address] [address] Epithelial, Renal NOT REPORTED Normal 0 [facility] Comment on above: Performed By: #### P ASHLEY #### [address] [address] Mucus Strands NOT REPORTED Normal NONE [facility] Comment on above: Performed By: #### P ASHLEY #### [address] [address] Other Observations NOT REPORTED Normal NREQ [facility] Comment on above: Performed By: #### P ASHLEY #### [address] [address] Trichomonas NOT REPORTED Normal NONE [facility] Comment on above: Performed By: #### P ASHLEY #### [address] [address] Yeast LM Ql (Urine sed) NOT REPORTED Normal NONE [facility] Comment on above: Performed By: #### P ASHLEY #### [address] [address] US OB 14 PLUS WEEKS SINGLE O [...] Quyen Walker MD 05/18/18 Final result Normal [facility] US OB GREATER THAN 14 WEEKS [...] Quyen Walker MD 05/18/18 Final result Normal [facility] US OB TRANSVAGINALon 03-28-2 019 OB [...] Quyen Walker MD 05/18/18 Final result Normal [facility] Urinalysis, Routineon 2018 Acetoacetic Acid,Ur Negative Normal [facility] Comment on above: Performed By: #### P ASHLEY #### [address] [address] [address] Bilirubin, SemiQt,Ur Negative Normal [facility] Comment on above: Performed By: #### P ASHLEY #### [address] [address] Color (U) YELLOW Normal YEL [facility] Comment on above: Performed By: #### P ASHLEY #### [facility] [employer] [address] [place] [address] Glucose Ql (U) Negative Normal [facility] Comment on above: Performed By: #### P ASHLEY #### [facility] [employer] [address] [place] [address] Hemoglobin, Ur 3+ Abnormal [facility] Comment on above: Performed By: #### P ASHLEY #### [address] [address] Leukocyte esterase Test strip Ql (U) LARGE Abnormal [facility] Comment on above: Performed By: #### P ASHLEY #### [address] [address] Nitrite,Ur Negative Normal NEG [facility] Comment on above: Performed By: #### P ASHLEY #### [address] [address] pH (U) 6.0 [pH] Normal 5.0-9.0 [facility] Comment on above: Performed By: #### P ASHLEY #### [address] [address] Protein Ql (U) Negative Normal NEG [facility] Comment on above: Performed By: #### P ASHLEY #### [address] [address] Specific gravity (U) [Rel density] 1.025 High 1.010-1.020 [facility] Comment on above: Performed By: #### P ASHLEY #### [address] [address] Turbidity CLOUDY Abnormal CLEAR [facility] Comment on above: Performed By: #### P ASHLEY #### [address] [address] Urobilinogen,Ur Normal Normal NORM [facility] Comment on above: Performed By: #### P ASHLEY #### [address] [address] Comment NOT REPORTED Normal [facility] Comment on above: Performed By: #### P ASHLEY #### [address] [address] Urinalysis,Microon 9 ----- Normal [facility] Comment on above: Performed By: #### P ASHLEY #### [address] [address] Bacteria LM.HPF (Urine sed) [#/Area] 3+ Abnormal NONE [facility] Comment on above: Performed By: #### P ASHLEY #### [address] [address] Epithelial cells LM.HPF (Urine sed) [#/Area] 50 TO 100 Normal 0-25 [facility] Comment on above: Performed By: #### P ASHLEY #### [address] [address] RBC (U) [#/Vol] 5 TO 10 Normal 0-2 [facility] Comment on above: Performed By: #### P ASHLEY #### [address] [address] WBC (U) [#/Vol] 20 TO 50 Normal 0-5 [facility] Comment on above: Performed By: #### P ASHLEY #### [address] [address] Amorphous sediment LM Ql (Urine sed) NOT REPORTED Normal [facility] Comment on above: Performed By: #### P ASHLEY #### [address] [address] Casts LM.LPF (Urine sed) [#/Area] NOT REPORTED Normal [facility] Comment on above: Performed By: #### P ASHLEY #### [address] [address] Crystals LM Nom (Urine sed) NOT REPORTED Normal [facility] Comment on above: Performed By: #### P ASHLEY #### [address] [address] Epithelial, Renal NOT REPORTED Normal 0 [facility] Comment on above: Performed By: #### P ASHLEY #### [address] [address] Mucus Strands NOT REPORTED Normal [facility] Comment on above: Performed By: #### P ASHLEY #### [address] [address] Other Observations NOT REPORTED Normal NREQ [facility] Comment on above: Performed By: #### P ASHLEY #### [address] [address] Trichomonas NOT REPORTED Normal [facility] Comment on above: Performed By: #### P ASHLEY #### [address] [address] Yeast LM Ql (Urine sed) NOT REPORTED Normal NONE [facility] Comment on above: Performed By: #### P ASHLEY #### [address] [address] CBC with Diffon 04-07-2018 Abs. Basophil 0.06 k/uL Normal 0.00-0.20 [facility] Comment on above: Performed By: #### E 2 #### [address] [address] Abs.Imm.Granulocyte 0.18 k/uL Normal 0.00-0.30 [facility] Comment on above: Performed By: #### E 2 #### [address] [address] Abs.Neutrophil (Seg) 15.05 k/uL High 1.50-8.10 [facility] Comment on above: Performed By: #### E 2 #### [address] [address] Basophils/100 WBC (Bld) 0 % Normal 0-2 M [facility] Comment on above: Performed By: #### E 2 #### [address] [address] Eosinophils (Bld) [#/Vol] 0.32 10*3/uL Normal 0.00-0.44 [facility] Comment on above: Performed By: #### E 2 #### [address] [address] Eosinophils/100 WBC (Bld) 2 % Normal 1-4 [facility] Comment on above: Performed By: #### E 2 #### [address] [address] Erythrocyte distribution width (RBC) [Ratio] 14.6 % High 11.8-14.4 [facility] Comment on above: Performed By: #### E 2 #### [address] [address] Hematocrit (Bld) [Volume fraction] 38.3 % Normal 36.3-47.1 [facility] Comment on above: Performed By: #### E 2 #### [address] [address] Hemoglobin (Bld) [Mass/Vol] 12.5 g/dL Normal 11.9-15.1 [facility] Comment on above: Performed By: #### E 2 #### [address] [address] Immature granulocytes (Bld) [#/Vol] 1 % High 0 [facility] Comment on above: Performed By: #### E 2 #### [address] [address] Lymphocytes (Bld) [#/Vol] 4.12 10*3/uL High 1.10-3.70 [facility] Comment on above: Performed By: #### E 2 #### [address] [address] Lymphocytes/100 WBC (Bld) 20 % Low 24-43 [facility] Comment on above: Performed By: #### E 2 #### [address] [address] MCH (RBC) [Entitic mass] 28.2 pg Normal 25.2-33.5 [facility] Comment on above: Performed By: #### E 2 #### [address] [address] MCHC (RBC) [Mass/Vol] 32.6 g/dL Normal 28.4-34.8 [facility] Comment on above: Performed By: #### E 2 #### [address] [address] MCV (RBC) [Entitic vol] 86.3 fL Normal 82.6-102.9 [facility] Comment on above: Performed By: #### E 2 #### [address] [address] Monocytes (Bld) [#/Vol] 0.91 10*3/uL Normal 0.10-1.20 [facility] Comment on above: Performed By: #### E 2 #### [address] [address] Monocytes/100 WBC (Bld) 4 % Normal 3-12 [facility] Comment on above: Performed By: #### E 2 #### [address] [address] Neutrophil (Seg) 73 % High 36-65 [facility] Comment on above: Performed By: #### E 2 #### [address] [address] NRBC Automated 0.0 per 100 WBC Normal 0.0 [facility] Comment on above: Performed By: #### E 2 #### [address] [address] Platelet mean volume (Bld) [Entitic vol] 9.7 fL Normal 8.1-13.5 [facility] Comment on above: Performed By: #### E 2 #### [address] [address] Platelets (Bld) [#/Vol] 310 10*3/uL Normal 138-453 [facility] Comment on above: Performed By: #### E 2 #### [address] [address] RBC (Bld) [#/Vol] 4.44 10*6/uL Normal 3.95-5.11 [facility] Comment on above: Performed By: #### E 2 #### [address] [address] WBC (Bld) [#/Vol] 20.6 10*3/uL High 3.5-11.3 [facility] Comment on above: Performed By: #### E 2 #### [address] [address] Auto Diff Performed NOT REPORTED Normal [facility] Comment on above: Performed By: #### E 2 #### [address] [address] Platelets (Bld) [#/Vol] NOT REPORTED Normal [facility] Comment on above: Performed By: #### E 2 #### [address] [address] RBC morphology finding Nom (Bld) NOT REPORTED Normal [facility] Comment on above: Performed By: #### E 2 #### [address] [address] WBC Morphology NOT REPORTED Normal [facility] Comment on above: Performed By: #### E 2 #### [address] [address] Comp Metabolic Profon 2018 Albumin [Mass/Vol] 3.7 g/dL Normal 3.5-5.2 [facility] Comment on above: Performed By: #### E 2 #### [address] [address] Albumin/Globulin [Mass ratio] 1.3 {ratio} Normal 1.0-2.5 [facility] Comment on above: Performed By: #### E 2 #### [facility] [place] [address] Alkaline Phos 61 U/L Normal 35-104 [facility] Comment on above: Performed By: #### E 2 #### [facility] [place] [address] ALT [Catalytic activity/Vol] 28 U/L Normal 5-33 [facility] Comment on above: Performed By: #### E 2 #### [facility] [place] [address] Anion gap [Moles/Vol] 15 mmol/L Normal 9-17 [facility] Comment on above: Performed By: #### E 2 #### [facility] [address] [place] [address] AST [Catalytic activity/Vol] 17 U/L Normal <32 [facility] Comment on above: Performed By: #### E 2 #### [facility] [place] [address] Bilirubin Ql (U) 0.27 mg/dL Low 0.3-1.2 [facility] Comment on above: Performed By: #### E 2 #### [facility] [address] [place] [address] BUN/CRE Ratio 17 Normal 9-20 [facility] Comment on above: Performed By: #### E 2 #### [facility] [place] [address] Calcium [Mass/Vol] 9.3 mg/dL Normal 8.6-10.4 [facility] Comment on above: Performed By: #### E 2 #### [facility] [place] [address] Chloride [Moles/Vol] 102 mmol/L Normal 98-107 [facility] Comment on above: Performed By: #### E 2 #### [facility] [place] [address] CO2 [Moles/Vol] 20 mmol/L Normal 20-31 [facility] Comment on above: Performed By: #### E 2 #### [address] [place] [address] Creatinine [Mass/Vol] 0.65 mg/dL Normal 0.50-0.90 [facility] Comment on above: Performed By: #### E 2 #### [facility] [employer] [address] [place] [address] GFR, Amer >60 Normal >60 [facility] Comment on above: Performed By: #### E 2 #### [facility] [employer] [address] [place] [address] GFR,non Amer >60 Normal >60 [facility] Comment on above: Performed By: #### E 2 #### [facility] [employer] [address] [place] [address] Glucose [Mass/Vol] 108 mg/dL High 70-99 [facility] Comment on above: Performed By: #### E 2 #### [address] [address] Potassium [Moles/Vol] 3.6 mmol/L Low 3.7-5.3 [facility] Comment on above: Performed By: #### E 2 #### [address] [address] Protein [Mass/Vol] 6.5 g/dL Normal 6.4-8.3 [facility] Comment on above: Performed By: #### E 2 #### [facility] [employer] [address] [place] [address] Sodium [Moles/Vol] 137 mmol/L Normal 135-144 [facility] Comment on above: Performed By: #### E 2 #### [address] [address] Urea nitrogen [Mass/Vol] 11 mg/dL Normal 6-20 [facility] Comment on above: Performed By: #### E 2 #### [facility] [employer] [facility] [place], [place] [id number] (cont.) Normal [facility] Comment on above: Result Comment: Aver age GFR for 30-39 years old: 107 mL/min/1.73sq m Chronic Kidney Disease: <60 mL/min/1.73sq m Kidney failure: <15 mL/min/1.73sq m eGFR calculated using average adult body mass. Additional eGFR calculator available at: http://www.[employer]multiple_crcl_2012.htm Performed By: #### E 2 #### [facility] [employer] [address] [place] [address] [phone] Staging: Normal [facility] Comment on above: Result Comment: Stag e 1: Some kidney damage normal GFR Stage 2: Mild kidney damage GFR 60-89 Stage 3: Moderate kidney damage GFR 30-59 Stage 4: Severe kidney damage GFR 15-29 Stage 5: Severe kidney damage GFR <15 ESRD - chronic treatment by dialysis or transplant Performed By: #### E 2 #### [facility] [employer] [address] [place] [address] [phone] Troponinon 04-07-2018 Troponin I.cardiac [Mass/Vol] ng/mL Normal <0.03 [facility] Comment on above: Result Comment: Trop onin T results cannot be compared to Troponin-I results. Performed By: #### E 2 #### [facility] [employer] [address] [place] [address] [phone] Troponin I.cardiac [Mass/Vol] Normal [facility] Comment on above: Result Comment: Refe [...] diagnosis. Performed By: #### E 2 #### [email or web address] [address] [place] [address] Troponin I.cardiac [Mass/Vol] NOT REPORTED Normal 0-14 [facility] Comment on above: Performed By: #### E 2 #### [facility] [address] [place] [address] Urinalysis, Routineon 2018 Acetoacetic Acid,Ur TRACE Abnormal NEG [facility] Comment on above: Performed By: #### E 2 #### [email or web address] [address] [place] [address] Bilirubin, SemiQt,Ur Negative Normal NEG [facility] Comment on above: Performed By: #### E 2 #### [facility] [address] [place] [address] Color (U) YELLOW Normal YEL [facility] Comment on above: Performed By: #### E 2 #### [facility] [address] [place] [address] Glucose Ql (U) Negative Normal NEG [facility] Comment on above: Performed By: #### E 2 #### [facility] [address] [place] [address] Hemoglobin, Ur Negative Normal NEG [facility] Comment on above: Performed By: #### E 2 #### [facility] [address] [place] [address] Leukocyte esterase Test strip Ql (U) SMALL Abnormal NEG [facility] Comment on above: Performed By: #### E 2 #### [facility] [address] [place] [address] Nitrite,Ur Negative Normal [facility] Comment on above: Performed By: #### E 2 #### [facility] [address] [place] [address] pH (U) 6.0 [pH] Normal 5.0-9.0 [facility] Comment on above: Performed By: #### E 2 #### [address] [address] Protein Ql (U) Negative Normal NEG [facility] Comment on above: Performed By: #### E 2 #### [address] [address] Specific gravity (U) [Rel density] >1.030 High 1.010-1.020 [facility] Comment on above: Performed By: #### E 2 #### [address] [address] Turbidity CLEAR Normal CLEAR [facility] Comment on above: Performed By: #### E 2 #### [address] [address] Urobilinogen,Ur Normal Normal NORM [facility] Comment on above: Performed By: #### E 2 #### [address] [address] Comment NOT REPORTED Normal [facility] Comment on above: Performed By: #### E 2 #### [address] [address] Urinalysis,Microon 9 ----- Normal [facility] Comment on above: Performed By: #### P ASHLEY #### [address] [address] Epithelial cells LM.HPF (Urine sed) [#/Area] None Normal 0-25 [facility] Comment on above: Performed By: #### P ASHLEY #### [address] [address] RBC (U) [#/Vol] None Normal 0-2 [facility] Comment on above: Performed By: #### P ASHLEY #### [address] [address] WBC (U) [#/Vol] 0 TO 2 Normal 0-5 [facility] Comment on above: Performed By: #### P ASHLEY #### [address] [address] Amorphous sediment LM Ql (Urine sed) NOT REPORTED Normal [facility] Comment on above: Performed By: #### P ASHLEY #### [address] [address] Bacteria LM.HPF (Urine sed) [#/Area] NOT REPORTED Normal [facility] Comment on above: Performed By: #### P ASHLEY #### [address] [address] Casts LM.LPF (Urine sed) [#/Area] NOT REPORTED Normal [facility] Comment on above: Performed By: #### P ASHLEY #### [address] [address] Crystals LM Nom (Urine sed) NOT REPORTED Normal [facility] Comment on above: Performed By: #### P ASHLEY #### [address] [address] Epithelial, Renal NOT REPORTED Normal 0 [facility] Comment on above: Performed By: #### P ASHLEY #### [address] [address] Mucus Strands NOT REPORTED Normal [facility] Comment on above: Performed By: #### P ASHLEY #### [address] [address] Other Observations NOT REPORTED Normal NREQ [facility] Comment on above: Performed By: #### P ASHLEY #### [address] [address] Trichomonas NOT REPORTED Normal [facility] Comment on above: Performed By: #### P ASHLEY #### [address] [address] Yeast LM Ql (Urine sed) NOT REPORTED Normal NONE [facility] Comment on above: Performed By: #### P ASHLEY #### [address] [place], [place] [phone] XR CHEST (2 VW)on 04-07-2018 XR CHEST (2 VW) EXAMINATION: TWO VIEWS OF THE CHEST 04/07/2018 12:49 pm COMPARISON: 01/22/2013, 04/24/2017 HISTORY: ORDERING SYSTEM PROVIDED HISTORY: 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 Trachea is midline. [...] Manuel Mcduffie MD 04/07/18 Final result Normal [facility] Chlamydia/GC DNA, Uron 02-03 Chlamydia Probe, Ur Negative Normal NEG [facility] Comment on above: Result Comment: CHLA [...] target. Performed By: #### E 2 #### [facility] [address] [place] [address] Gonorrhea Probe, Ur Negative Normal NEG [facility] Comment on above: Result Comment: NEIS [...] target. Performed By: #### E 2 #### [address] [address] Cult,Urine,CCon 02-03-2018 Cult,Urine,CC Specimen Description .URINE Special Requests CCMS Culture NO SIGNIFICANT GROWTH Report Status FINAL 02/03/2018 [facility] Comment on above: Performed By: #### E 2 #### [address] [address] HIV Ag/Abon 02-03-2018 HIV Ag/Ab NONREACTIVE Normal [facility] Comment on above: Result Comment: No l aboratory evidence of HIV infection. If acute HIV infection is suspected, consider testing for HIV-1 RNA. Performed By: #### A HCV, HIVCMB #### [address] [address] #### GLYHGB #### [address] [place] [address] Hep C Abon 02-03-2018 Hep C Ab NONREACTIVE Normal [facility] Comment on above: Result Comment: The hepatitis [...] Performed By: #### A HCV, HIVCMB #### [address] [address] #### GLYHGB #### [address] [place] [address] Profileon 8 Hep B Surf Ag NONREACTIVE Normal [facility] Comment on above: Performed By: #### E 2 #### [address] [address] Rubella Ab, IgG 310.2 IU/mL Normal [facility] Comment on above: Result Comment: REFERENCE RANGE: <5.0 NON-REACTIVE (non-immune) 5.0 TO 9.9 EQUIVOCAL >=10.0 REACTIVE (immune) Performed By: #### E 2 #### [address] [address] T.pallidum Ab Screen NONREACTIVE Normal NR [facility] Comment on above: Result Comment: T. pallidum antibodies are not detected. There is no serological evidence of infection with T. pallidum (early primary syphilis cannot be excluded). Retest in 2-4 weeks if syphilis is clinically suspect. Performed By: #### E 2 #### [address] [address] Hemoglobin A1Con 02-02-2018 HbA1c (Bld) [Mass fraction] 111 mg/dL Normal [facility] Comment on above: Result Comment: The ADA and AACC recommend providing the estimated average glucose result to permit better patient understanding of their HBA1c result. Performed By: #### A HCV, HIVCMB #### [address] [address] #### GLYHGB #### [address] [place] [address] HbA1c (Bld) [Mass fraction] 5.5 % Normal 4.8-5.9 [facility] Comment on above: Performed By: #### A HCV, HIVCMB #### [address] [address] #### GLYHGB #### [address] [place] [address] Profileon 8 Abs. Basophil 0.07 k/uL Normal 0.00-0.20 [facility] Comment on above: Performed By: #### E 2 #### [address] [address] Abs.Imm.Granulocyte 0.05 k/uL Normal 0.00-0.30 [facility] Comment on above: Performed By: #### E 2 #### [address] [address] Abs.Neutrophil (Seg) 9.31 k/uL High 1.50-8.10 [facility] Comment on above: Performed By: #### E 2 #### [address] [address] Basophils/100 WBC (Bld) 1 % Normal 0-2 [facility] Comment on above: Performed By: #### E 2 #### [address] [address] Eosinophils (Bld) [#/Vol] 0.36 10*3/uL Normal 0.00-0.44 [facility] Comment on above: Performed By: #### E 2 #### [address] [address] Eosinophils/100 WBC (Bld) 3 % Normal 1-4 [facility] Comment on above: Performed By: #### E 2 #### [address] [address] Erythrocyte distribution width (RBC) [Ratio] 15.0 % High 11.8-14.4 [facility] Comment on above: Performed By: #### E 2 #### [address] [address] Hematocrit (Bld) [Volume fraction] 40.6 % Normal 36.3-47.1 [facility] Comment on above: Performed By: #### E 2 #### [address] [address] Hemoglobin (Bld) [Mass/Vol] 12.9 g/dL Normal 11.9-15.1 [facility] Comment on above: Performed By: #### E 2 #### [address] [address] Immature granulocytes (Bld) [#/Vol] 0 % Normal 0 [facility] Comment on above: Performed By: #### E 2 #### [address] [address] Lymphocytes (Bld) [#/Vol] 3.96 10*3/uL High 1.10-3.70 [facility] Comment on above: Performed By: #### E 2 #### [address] [address] Lymphocytes/100 WBC (Bld) 27 % Normal 24-43 [facility] Comment on above: Performed By: #### E 2 #### [address] [address] MCH (RBC) [Entitic mass] 27.8 pg Normal 25.2-33.5 [facility] Comment on above: Performed By: #### E 2 #### [address] [address] MCHC (RBC) [Mass/Vol] 31.8 g/dL Normal 28.4-34.8 [facility] Comment on above: Performed By: #### E 2 #### [address] [address] MCV (RBC) [Entitic vol] 87.5 fL Normal 82.6-102.9 [facility] Comment on above: Performed By: #### E 2 #### [address] [address] Monocytes (Bld) [#/Vol] 0.68 10*3/uL Normal 0.10-1.20 [facility] Comment on above: Performed By: #### E 2 #### [address] [address] Monocytes/100 WBC (Bld) 5 % Normal 3-12 M [facility] Comment on above: Performed By: #### E 2 #### [address] [address] Neutrophil (Seg) 64 % Normal 36-65 [facility] Comment on above: Performed By: #### E 2 #### [address] [address] NRBC Automated 0.0 per 100 WBC Normal 0.0 [facility] Comment on above: Performed By: #### E 2 #### [address] [address] Platelet mean volume (Bld) [Entitic vol] 9.7 fL Normal 8.1-13.5 [facility] Comment on above: Performed By: #### E 2 #### [address] [address] Platelets (Bld) [#/Vol] 315 10*3/uL Normal 138-453 [facility] Comment on above: Performed By: #### E 2 #### [address] [address] RBC (Bld) [#/Vol] 4.64 10*6/uL Normal 3.95-5.11 [facility] Comment on above: Performed By: #### E 2 #### [address] [address] WBC (Bld) [#/Vol] 14.4 10*3/uL High 3.5-11.3 [facility] Comment on above: Performed By: #### E 2 #### [address] [address] Auto Diff Performed NOT REPORTED Normal [facility] Comment on above: Performed By: #### E 2 #### [address] [address] Platelets (Bld) [#/Vol] NOT REPORTED Normal [facility] Comment on above: Performed By: #### E 2 #### [facility] [employer] [address] [place] [id number] RBC morphology finding Nom (Bld) NOT REPORTED Normal [facility] Comment on above: Performed By: #### E 2 #### [facility] [employer] [address] [place] [address] WBC Morphology NOT REPORTED Normal [facility] Comment on above: Performed By: #### E 2 #### [facility] [employer] [address] [place] [address] Type + Scrnon 02-02 Type + Scrn Negative Normal [facility] Comment on above: Performed By: #### E 2 #### [facility] [employer] [address] [place] [address] Toxicology Scree, Urineon Amphetamine(s),Ur Negative Normal NEG [facility] Comment on above: Performed By: #### E 2 #### [facility] [employer] [address] [place] [address] Barbiturate(s),Ur Negative Normal NEG [facility] Comment on above: Performed By: #### E 2 #### [facility] [employer] [address] [place] [address] Benzodiazepine(s) Negative Normal NEG [facility] Comment on above: Performed By: #### E 2 #### [facility] [employer] [address] [place] [address] Buprenorphrine, Ur Negative Normal NEG [facility] Comment on above: Performed By: #### E 2 #### [facility] [employer] [address] [place] [address] Cannabinoid(s),Ur Negative Normal NEG [facility] Comment on above: Performed By: #### E 2 #### [facility] [employer] [address] [place] [address] Cocaine Metabolite Negative Normal NEG [facility] Comment on above: Performed By: #### E 2 #### [facility] [employer] [address] [place] [address] Methadone Ql (U) Negative Normal NEG [facility] Comment on above: Performed By: #### E 2 #### [facility] [employer] [address] [place] [address] Methamphetamine, Ur Negative Normal NEG [facility] Comment on above: Performed By: #### E 2 #### [facility] [employer] [address] [place] [address] Opiate(s), Ur Negative Normal NEG [facility] Comment on above: Performed By: #### E 2 #### [address] [address] Oxycodone, Urine Negative Normal NEG [facility] Comment on above: Performed By: #### E 2 #### [address] [address] Phencyclidine, Ur Negative Normal NEG [facility] Comment on above: Performed By: #### E 2 #### [facility] [employer] [address] [place] [address] Propoxyphene,Urine Negative Normal NEG [facility] Comment on above: Performed By: #### E 2 #### [address] [address] Tricyclic antidepressants Screen Ql (U) Negative Normal NEG [facility] Comment on above: Result Comment: Drug screen results are to be used for medical purposes only. All positive results are unconfirmed. Testing for employment or legal uses should be sent to a reference laboratory for confirmation. Performed By: #### E 2 #### [address] [address] Interpretive Info NOT REPORTED Normal [facility] Comment on above: Performed By: #### E 2 #### [address] [address] MDMA, Urine NOT REPORTED Normal NEG [facility] Comment on above: Performed By: #### E 2 #### [address] [id number] HCG, Quanton 01-16-2018 HCG, Quant 3157 IU/L High <5 [facility] Comment on above: Result Comment: Non-preg premeno <=5 Postmeno <=8 Male <=3 If HCG results do not concur with clinical observations, additional testing to confirm result is recommended. This test is not labeled for use as a tumor marker. Performed By: #### B HCG #### [address] [place] [address] #### PROG #### [address] [address] Progesteroneon 01-16-2018 Progesterone 29.56 ng/mL Normal [facility] Comment on above: Result Comment: FEMALE (healthy): Follicular phase 0.06-0.89 Ovulation phase 0.12-12.00 Luteal phase 1.83-23.90 Postmenopausal <0.13 Performed By: #### B HCG #### [address] [place] [address] #### PROG #### [address] [address] HCG, Quanton 01-11-2018 HCG, Quant 428 IU/L High <5 [facility] Comment on above: Result Comment: Non-preg premeno <=5 Postmeno <=8 Male <=3 If HCG results do not concur with clinical observations, additional testing to confirm result is recommended. This test is not labeled for use as a tumor marker. Performed By: #### B HCG #### [address] [place] [address] HCG, Quanton 01-09-2018 HCG, Quant 187 IU/L High <5 [facility] Comment on above: Result Comment: Non-preg premeno <=5 Postmeno <=8 Male <=3 If HCG results do not concur with clinical observations, additional testing to confirm result is recommended. This test is not labeled for use as a tumor marker. Performed By: #### B HCG #### [address] [place] [address] Progesteroneon 01-03-2018 Progesterone 35.39 ng/mL Normal [facility] Comment on above: Result Comment: FEMALE (healthy): Follicular phase 0.06-0.89 Ovulation phase 0.12-12.00 Luteal phase 1.83-23.90 Postmenopausal <0.13 Performed By: #### P ASHLEY #### [address] [address] Estradiolon 12-17-2017 Estradiol 410 pg/mL High -[address] [place] [address] Comment on above: Result Comment: FEMALES: Normally menstruating Luteal phase 33-298 Follicular phase 27-156 Midcycle phase 48-314 Postmenopausal (untreated) 5-50 Performed By: #### E 2 #### [address] [address] Estradiolon 12-06-2017 Estradiol 99 pg/mL Normal [address] [place] [address] Comment on above: Result Comment: FEMALES: Normally menstruating Luteal phase 33-298 Follicular phase 27-156 Midcycle phase 48-314 Postmenopausal (untreated) 5-50 Performed By: #### E 2 #### [address] [address] Vital Signs Date Time Vital Sign Value Performing Clinician Facility 11-09-2023 14:29-0400 Body height 160 cm Brandon Juares DO Work Phone: [facility] 11-09-2023 14:29-0400 Body mass index (BMI) [Ratio] 41.81 kg/m2 Brandon Juares DO Work Phone: [facility] 11-09-2023 14:29-0400 Body weight 107.05 kg Brandon Juares DO Work Phone: [facility] 10-12-2023 15:02-0400 Body height 160 cm Brandon Juares DO Work Phone: [facility] 10-12-2023 15:02-0400 Body mass index (BMI) [Ratio] 41.98 kg/m2 Brandon Juares DO Work Phone: [facility] 10-12-2023 15:02-0400 Body weight 107.5 kg Brandon Juares DO Work Phone: [facility] 09-21-2023 15:08-0400 Blood Pressure Location Mohamad Mouchli [facility] 09-21-2023 15:08-0400 Diastolic blood pressure 76 mm[Hg] Mohamad Mouchli [facility] 09-21-2023 15:08-0400 Heart rate 74 /min Mohamad Mouchli [facility] 09-21-2023 15:08-0400 Respiratory rate 16 /min Mohamad Mouchli [facility] 09-21-2023 15:08-0400 Systolic blood pressure 118 mm[Hg] Mohamad Mouchli [facility] 09-05-2023 14:00-0400 Diastolic blood pressure 77 mm[Hg] Mohamad Mouchli [facility] 09-05-2023 14:00-0400 Heart rate 70 /min Mohamad Mouchli [facility] 09-05-2023 14:00-0400 Mean blood pressure 95 mm[Hg] Mohamad Mouchli [facility] 09-05-2023 14:00-0400 SaO2% (BldA) [Mass fraction] 96 % Mohamad Mouchli [facility] 09-05-2023 14:00-0400 Systolic blood pressure 131 mm[Hg] Mohamad Mouchli [facility] 09-05-2023 13:50-0400 Diastolic blood pressure 60 mm[Hg] Mohamad Mouchli [facility] 09-05-2023 13:50-0400 Heart rate 87 /min Mohamad Mouchli [facility] 09-05-2023 13:50-0400 Mean blood pressure 87 mm[Hg] Mohamad Mouchli [facility] 09-05-2023 13:50-0400 Respiratory rate 15 /min Mohamad Mouchli [facility] 09-05-2023 13:50-0400 SaO2% (BldA) [Mass fraction] 98 % Mohamad Mouchli [facility] 09-05-2023 13:50-0400 Systolic blood pressure 142 mm[Hg] Mohamad Mouchli [facility] 09-05-2023 13:45-0400 Diastolic blood pressure 73 mm[Hg] Mohamad Mouchli [facility] 09-05-2023 13:45-0400 Heart rate 73 /min Mohamad Mouchli [facility] 09-05-2023 13:45-0400 Mean blood pressure 91 mm[Hg] Mohamad Mouchli [facility] 09-05-2023 13:45-0400 Respiratory rate 18 /min Mohamad Mouchli [facility] 09-05-2023 13:45-0400 SaO2% (BldA) [Mass fraction] 98 % Mohamad Mouchli [facility] 09-05-2023 13:45-0400 Systolic blood pressure 126 mm[Hg] Mohamad Mouchli [facility] 09-05-2023 13:35-0400 Body temperature 97.88 [degF] Mohamad Mouchli [facility] 09-05-2023 13:25-0400 Respiratory rate 12 /min Mohamad Mouchli [facility] 09-05-2023 13:15-0400 Respiratory rate 12 /min Mohamad Mouchli [facility] 09-05-2023 13:05-0400 Respiratory rate 12 /min Mohamad Mouchli [facility] 09-05-2023 13:01-0400 Blood Pressure Location Mohamad Mouchli [facility] 09-05-2023 13:01-0400 Body temperature 98.06 [degF] Mohamad Mouchli [facility] 09-01-2023 13:37-0400 Blood Pressure Location Mohamad Mouchli [facility] 09-01-2023 13:37-0400 Diastolic blood pressure 86 mm[Hg] Mohamad Mouchli [facility] 09-01-2023 13:37-0400 Heart rate 82 /min Mohamad Mouchli [facility] 09-01-2023 13:37-0400 Respiratory rate 16 /min Mohamad Mouchli [facility] 09-01-2023 13:37-0400 Systolic blood pressure 128 mm[Hg] Mohamad Mouchli [facility] 08-15-2023 11:28-0400 Body temperature 98.42 [degF] Quyen Garcia [facility] 08-15-2023 11:28-0400 Diastolic blood pressure 72 mm[Hg] Quyen Garcia [facility] 08-15-2023 11:28-0400 Heart rate 69 /min Quyen Garcia [facility] 08-15-2023 11:28-0400 Mean blood pressure 86 mm[Hg] Quyen Garcia [facility] 08-15-2023 11:28-0400 Respiratory rate 16 /min Quyen Garcia [facility] 08-15-2023 11:28-0400 SaO2% (BldA) [Mass fraction] 98 % Quyen Garcia [facility] 08-15-2023 11:28-0400 Systolic blood pressure 113 mm[Hg] Quyen Garcia [facility] 08-05-2023 13:12-0400 Heart rate 67 /min Cleo Mayra [facility] 08-05-2023 13:12-0400 SaO2% (BldA) [Mass fraction] 98 % Cleo Mayra [facility] 08-05-2023 13:12-0400 Body temperature 98.06 [degF] Cleo Mayra [facility] 08-05-2023 13:12-0400 Diastolic blood pressure 74 mm[Hg] Cleo Mayra [facility] 08-05-2023 13:12-0400 Mean blood pressure 89 mm[Hg] Cleo Mayra [facility] 08-05-2023 13:12-0400 Systolic blood pressure 119 mm[Hg] Cleo Mayra [facility] 08-05-2023 13:11-0400 Respiratory rate 16 /min Cleo Mayra [facility] 08-05-2023 09:09-0400 Heart rate 80 /min Cleo Mayra [facility] 08-05-2023 09:09-0400 SaO2% (BldA) [Mass fraction] 99 % Cleo Mayra [facility] 08-05-2023 09:09-0400 Respiratory rate 16 /min Cleo Mayra [facility] 08-05-2023 09:08-0400 Blood Pressure Location Lceo Mayra [facility] 08-05-2023 09:08-0400 Diastolic blood pressure 72 mm[Hg] Cleo Mayra [facility] 08-05-2023 09:08-0400 Mean blood pressure 88 mm[Hg] Cleo Mayra [facility] 08-05-2023 09:08-0400 Systolic blood pressure 119 mm[Hg] Cleo Mayra [facility] 08-05-2023 09:08-0400 Body temperature 98.06 [degF] Cleo Mayra [facility] 08-03-2023 14:08-0400 Heart rate 67 /min [facility] 08-03-2023 14:08-0400 Respiratory rate 16 /min [facility] 08-03-2023 13:00-0400 Diastolic blood pressure 59 mm[Hg] [facility] 08-03-2023 13:00-0400 Heart rate 74 /min [facility] 08-03-2023 13:00-0400 Mean blood pressure 73 mm[Hg] [facility] 08-03-2023 13:00-0400 Systolic blood pressure 102 mm[Hg] [facility] 08-03-2023 12:19-0400 Diastolic blood pressure 82 mm[Hg] [facility] 08-03-2023 12:19-0400 Heart rate 77 /min [facility] 08-03-2023 12:19-0400 Mean blood pressure 104 mm[Hg] [facility] 08-03-2023 12:19-0400 Respiratory rate 13 /min [facility] 08-03-2023 12:19-0400 SaO2% (BldA) [Mass fraction] 100 % [facility] 08-03-2023 12:19-0400 Systolic blood pressure 148 mm[Hg] [facility] 08-03-2023 11:02-0400 Body temperature 98.6 [degF] [facility] 08-03-2023 11:02-0400 Diastolic blood pressure 73 mm[Hg] [facility] 08-03-2023 11:02-0400 Heart rate 82 /min [facility] 08-03-2023 11:02-0400 Respiratory rate 20 /min [facility] 08-03-2023 11:02-0400 Systolic blood pressure 132 mm[Hg] [facility] 02-08-2022 15:44-0500 Body temperature 98.7 [degF] ERAN Selby Work Phone: [facility] 02-08-2022 15:44-0500 Diastolic blood pressure 61 mm[Hg] ERAN Selby Work Phone: [facility] 02-08-2022 15:44-0500 Heart rate 84 /min [employer]IVITIES COUNSEL[employer]-C Abdullahi Cliff Work Phone: [facility] 02-08-2022 15:44-0500 Respiratory rate 22 /min [employer] Abdullahi Cliff Work Phone: [facility] 02-08-2022 15:44-0500 SaO2% (BldA) [Mass fraction] 95 % [employer]SEL[employer]C Abdullahi Cliff Work Phone: [facility] 02-08-2022 15:44-0500 Systolic blood pressure 131 mm[Hg] [employer]IVITIES COUNSELOR-C Abdullahi Cliff Work Phone: [facility] 02-08-2022 15:42-0500 Body height 162.56 cm [employer]IVITIES COUNSELOR-C Abdullahi Cliff Work Phone: [facility] 02-08-2022 15:42-0500 Body weight 101.5 kg [employer]ITIES COUNSELOR-C Abdullahi Cliff Work Phone: [facility] 12-28-2021 16:00-0500 Body temperature 98 [degF] [employer]IVITIES COUNSELOR-C Abdullahi Cliff Work Phone: [facility] 12-28-2021 16:00-0500 Diastolic blood pressure 72 mm[Hg] [employer]IVITIES COUNSELOR-C Abdullahi Cliff Work Phone: [facility] 12-28-2021 16:00-0500 Heart rate 99 /min [employer]IVITIES COUNSELOR-C Abdullahi Cliff Work Phone: [facility] 12-28-2021 16:00-0500 Respiratory rate 18 /min [employer]IVITIES COUNSELOR-C Abdullahi Cliff Work Phone: [facility] 12-28-2021 16:00-0500 SaO2% (BldA) [Mass fraction] 94 % [employer]IT[employer] COUNSEL[employer]-C Abdullahi Cliff Work Phone: [facility] 12-28-2021 16:00-0500 Systolic blood pressure 110 mm[Hg] [employer]IVITIES COUNSELOR-C Abdullahi Cliff Work Phone: [facility] 12-28-2021 13:15-0500 Inhaled oxygen flow rate 1 L/min [employer]IVITIES COUNSELOR-C Abdullahi Selby Work Phone: [facility] 12-28-2021 04:17-0500 Body weight 103.8 kg [employer]IVITIES COUNSELOR-C Abdullahi Selby Work Phone: [facility] 12-27-2021 18:10-0500 Diastolic blood pressure 72 mm[Hg] [employer]IVITIES COUNSELOR-C Abdullahi Selby Work Phone: [facility] 12-27-2021 18:10-0500 Heart rate 104 /min ACTIVITIES COUNSELOR-C Abdullahi Selby Work Phone: [facility] 12-27-2021 18:10-0500 Inhaled oxygen flow rate 2 L/min ACTIVITIES COUNSELOR-C Abdullahi Selby Work Phone: [facility] 12-27-2021 18:10-0500 Respiratory rate 22 /min ACTIVITIES COUNSELOR-C Abdullahi Selby Work Phone: [facility] 12-27-2021 18:10-0500 SaO2% (BldA) [Mass fraction] 91 % [employer]ITIES COUNSELOR-C Abdullahi Selby Work Phone: [facility] 12-27-2021 18:10-0500 Systolic blood pressure 125 mm[Hg] [employer]IVITIES COUNSELOR-C Abdullahi Selby Work Phone: [facility] 12-27-2021 14:32-0500 Body height 162.56 cm ACTIVITIES COUNSELOR-C Abdullahi Selby Work Phone: [facility] 12-27-2021 14:32-0500 Body temperature 97.9 [degF] ACTIVITIES COUNSELOR-C Abdullahi Selby Work Phone: [facility] 12-27-2021 14:32-0500 Body weight 104.7 kg ACTIVITIES COUNSELOR-C Abdullahi Selby Work Phone: [facility] 11-19-2021 13:25-0400 SaO2% (BldA) [Mass fraction] 93 % [employer]ITIES COUNSELOR-C Abdullahi Cliff Work Phone: [facility] 11-19-2021 11:45-0400 Inhaled oxygen flow rate 3.5 L/min [employer]IVITIES COUNSELOR-C Abdullahi Cliff Work Phone: [facility] 11-19-2021 11:09-0400 Body temperature 98.2 [degF] ACTIVITIES COUNSELOR-C Abdullahi Cliff Work Phone: [facility] 11-19-2021 11:09-0400 Diastolic blood pressure 68 mm[Hg] ACTIVITIES COUNSELOR-C Abdullahi Cliff Work Phone: [facility] 11-19-2021 11:09-0400 Heart rate 78 /min ACTIVITIES COUNSELOR-C Abdullahi Cliff Work Phone: [facility] 11-19-2021 11:09-0400 Respiratory rate 24 /min ACTIVITIES COUNSELOR-C Abdullahi Cliff Work Phone: [facility] 11-19-2021 11:09-0400 Systolic blood pressure 120 mm[Hg] ACTIVITIES COUNSELOR-C Abdullahi Cliff Work Phone: [facility] 11-19-2021 03:26-0400 Body weight 106 kg ACTIVITIES COUNSELOR-C Abdullahi Cliff Work Phone: [facility] 11-18-2021 04:42-0400 Body height 162.56 cm ACTIVITIES COUNSELOR-C Abdullahi Cliff Work Phone: [facility] 11-18-2021 04:06-0400 Diastolic blood pressure 71 mm[Hg] ACTIVITIES COUNSELOR-C Abdullahi Cliff Work Phone: [facility] 11-18-2021 04:06-0400 Heart rate 88 /min ACTIVITIES COUNSELOR-C Abdullahi Cliff Work Phone: [facility] 11-18-2021 04:06-0400 Inhaled oxygen flow rate 2 L/min ACTIVITIES COUNSELOR-C Abdullahi Cliff Work Phone: [facility] 11-18-2021 04:06-0400 Respiratory rate 20 /min ACTIVITIES COUNSELOR-C Abdullahi Cliff Work Phone: [facility] 11-18-2021 04:06-0400 SaO2% (BldA) [Mass fraction] 98 % ACTIVITIES COUNSELOR-Jase Selby Work Phone: [facility] 11-18-2021 04:06-0400 Systolic blood pressure 153 mm[Hg] ACTIVITIES COUNSELOR-Jase Selby Work Phone: [facility] 11-18-2021 02:24-0400 Body height 162.56 cm ACTIVITIES COUNSELORMelinda Selby Work Phone: [facility] 11-18-2021 02:24-0400 Body temperature 99 [degF] ACTIVITIES COUNSELOR-Jase Selby Work Phone: [facility] 11-18-2021 02:24-0400 Body weight 108 kg ACTIVITIES COUNSELORMelinda Selby Work Phone: [facility] 11-11-2021 11:23-0400 Body height 162.6 cm [facility] 11-11-2021 11:23-0400 Body weight 99.79 kg [facility] 01-29-2021 16:45-0500 Body height 160.02 cm Brandon Perez Other [facility] [employer] Other 01-29-2021 16:45-0500 Body mass index (BMI) [Ratio] 50.53 kg/m2 Brandon Perez Other [employer] Other 01-29-2021 16:45-0500 Body weight 129.41 kg Brandon Perez Other [employer] Other 01-29-2021 16:45-0500 Diastolic blood pressure 72 mm[Hg] Brandon Perez Other [employer] Other 01-29-2021 16:45-0500 Respiratory rate 18 /min Brandon Perez Other [employer] Other 01-29-2021 16:45-0500 SaO2% (BldA) [Mass fraction] 97 % Brandon Perez Other [employer] Other 01-29-2021 16:45-0500 Systolic blood pressure 128 mm[Hg] Brandon Perez Other [employer] Other 12-16-2020 10:00-0400 Body height 160.02 cm Brandon Perez Other [employer] Other 12-16-2020 10:00-0400 Body mass index (BMI) [Ratio] 50.3 kg/m2 Brandon Perez Other [employer] Other 12-16-2020 10:00-0400 Body weight 128.82 kg Brandon Perez Other [employer] Other 12-16-2020 10:00-0400 Diastolic blood pressure 84 mm[Hg] Brandon Perez Other [employer] Other 12-16-2020 10:00-0400 Systolic blood pressure 124 mm[Hg] Brandon Perez Other [employer] Other 11-13-2020 14:30-0400 Body height 160.02 cm Brandon Perez Other [employer] Other 11-13-2020 14:30-0400 Body mass index (BMI) [Ratio] 49.77 kg/m2 Brandon Perez Other [employer] Other 11-13-2020 14:30-0400 Body weight 127.46 kg Brandon Perez Other [employer] Other 11-13-2020 14:30-0400 Diastolic blood pressure 84 mm[Hg] Brandon Perez Other [employer] Other 11-13-2020 14:30-0400 SaO2% (BldA) [Mass fraction] 98 % Brandon Perez Other [employer] Other 11-13-2020 14:30-0400 Systolic blood pressure 122 mm[Hg] Brandon Perez Other [employer] Other Encounters Encounter Date Encounter Type Care Provider Facility Start: 12-05-2023 End: 12-05-2023 ambulatory Cleo Hernandez Facility:[facility] Start: 11-09-2023 End: 11-09-2023 Postop [...] 10-27-2023 End: 10-28-2023 Pre-admission assessment Quyen Garcia [facility] Start: 10-26-2023 End: 10-26-2023 ambulatory Quyen Garcia Facility:[facility] Start: 10-26-2023 End: 10-26-2023 Patient encounter procedure Quyen Garcia [facility] Start: 10-25-2023 End: 10-25-2023 Patient encounter procedure ACTIVITIES COUNSELOR-C Cleo Goldenab Work Phone: [facility] Work Phone: Start: 10-25-2023 End: 10-25-2023 ambulatory ACTIVITIES COUNSELOR-C Cleo Hernandez Work Phone: [facility] Work Phone: Start: 10-12-2023 End: 10-12-2023 Postop [...] SUSHMA SERVIN Start: 10-05-2023 End: 10-05-2023 ambulatory ACTIVITIES COUNSELOR-C Cleo Hernandez Work Phone: [facility] Work Phone: Start: 10-05-2023 End: 10-05-2023 Departed Referred ACTIVITIES COUNSELOR-C Cleo Mayra Work Phone: [facility] Work Phone: Start: 09-26-2023 End: 09-26-2023 Patient encounter procedure ACTIVITIES COUNSELOR-C Cleo Mayra Work Phone: [facility] Work Phone: Start: 09-26-2023 End: 09-26-2023 ambulatory ACTIVITIES COUNSELOR-C Cleo Hernandez Work Phone: [facility] Work Phone: Start: 09-21-2023 End: 09-21-2023 [facility]ulatory [facility] Start: 09-21-2023 End: 09-21-2023 Patient encounter procedure Stefan Mclean [facility] Start: 09-20-2023 End: 09-20-2023 ambulatory BRANDON JACKSONBety Not Available Start: 09-17-2023 Patient encounter status Griffin Juares DO Work Phone: [facility] Start: 09-05-2023 End: 09-05-2023 ambulatory Stefan Mclean Facility:[facility] Start: 09-05-2023 End: 09-05-2023 Patient encounter procedure Stefan Mclean [facility] Start: 09-01-2023 End: 09-01-2023 Lab Drop off José Antoniocara Tonylyndsey [facility] Start: 09-01-2023 End: 09-01-2023 ambulatory Stefan Mclean Facility:[facility] Start: 09-01-2023 End: 09-01-2023 Patient encounter procedure Stefan Mclean [facility] Start: 09-01-2023 End: 09-01-2023 ambulatory Stefan Mclean Facility:[facility] Start: 09-01-2023 End: 09-01-2023 Patient encounter procedure Stefan Mclean [facility] Start: 08-16-2023 ambulatory Stefan Mclean Facilit y:[facility] Start: 08-15-2023 End: 08-15-2023 ambulatory José Antonio Benitez Facility:[facility] Start: 08-15-2023 End: 08-15-2023 Patient encounter procedure Quyen Garcia [facility] Start: 08-12-2023 End: 08-12-2023 ambulatory José Antonio Benitez Facility: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 Start: 08-05-2023 End: 11-03-2023 Recurring Cleo L Mayra [facility] Start: 08-03-2023 End: 08-03-2023 Emergency department patient visit Elizabeth Moise [facility] Start: 08-01-2023 End: 08-01-2023 Lab Drop off Cleo L Mayra [facility] Start: 08-01-2023 End: 08-01-2023 ambulatory Cleo L Mayra Facility:[facility] Start: 04-26-2023 End: 04-27-2023 ambulatory ROLLY M MONY-NOSSEK Not Available Start: 03-29-2023 End: 03-29-2023 ambulatory Cleo L Mayra Facility:[facility] Ayde Start: 03-17-2023 End: 03-17-2023 ambulatory ROLLY M MONY-NOSSEK Not Available Start: 02-23-2023 End: 02-23-2023 ambulatory ABDULLAHI SELBY Not Available Start: 01-24-2023 End: 01-24-2023 ambulatory Cleo L Mayra Facility:[facility] Start: 10-18-2022 End: 10-18-2022 Lab Drop off Cleo L Mayra [facility] Start: 10-18-2022 End: 10-18-2022 ambulatory Cleo L Mayra Facility:[facility] Start: 10-07-2022 ambulatory Cleo Mayra Facility: [facility] Start: 06-28-2022 End: 06-28-2022 ambulatory KELLY RADER . Facility: Start: 02-08-2022 End: 02-08-2022 Emergency department patient visit ACTIVITIES COUNSELOR-C Abdullahi Selby Work Phone: [facility] Start: 12-27-2021 End: 12-28-2021 Evaluation and management of inpatient ACTIVITIES COUNSELOR-C Abdullahi Selby Work Phone: [facility] Start: 12-10-2021 [...] End: 11-19-2021 Evaluation and management of inpatient ACTIVITIES COUNSELOR-C Abdullahi Selby Work Phone: [facility] Start: 11-18-2021 observation encounter ACTIVITIES COUNSELOR-C Brooklyn Selby Work Phone: [facility] Work Phone: Start: 11-11-2021 End: 11-11-2021 [facility] 1 Virtual Pre Anesthesia Comment on above: [...] 06-17-2021 End: 06-17-2021 ambulatory Rolly Carrera Other [facility] Other Start: 06-17-2021 Telephone encounter Rolly rebolledo [facility] Start: 02-24-2021 (Procedure) Vergas Brandon Chris [facility] Start: 02-24-2021 End: 02-24-2021 ambulatory Brandon Perez Other [facility] Other Start: 01-29-2021 End: 01-29-2021 ambulatory Brandon Perez Other [facility] Other Start: 01-29-2021 Office outpatient vi sit 25 minutes Brandon Perez [facility] Start: 12-16-2020 Office outpatient vi sit 25 minutes Brandon Perez [facility] Start: 12-09-2020 (Procedure) Vergas Brandon Chris [facility] Start: 11-13-2020 [facility] Start: 09-28-2018 End: 09-28-2018 Patient encounter procedure ARACELY ALANIZ [facility] Start: 09-25-2018 End: 09-28-2018 Patient encounter procedure JACKELYN Rebolledo [facility] Start: 08-02-2018 End: 08-03-2018 Evaluation and management of inpatient [place] Hannah [facility] Start: 07-22-2018 End: 07-23-2018 Patient encounter procedure LETICIA E [facility] Start: 07-21-2018 End: 07-21-2018 Patient encounter procedure [place] Hannah [facility] Start: 07-19-2018 End: 07-19-2018 Patient encounter procedure JACKELYN Rebolledo [facility] Start: 06-27-2018 End: 06-28-2018 Patient encounter procedure [place] Hannah [facility] Start: 06-12-2018 End: 06-12-2018 Patient encounter procedure [place] Hannah [facility] Start: 05-18-2018 End: 05-18-2018 [facility] Start: 04-07-2018 End: 04-07-2018 Emergency department patient visit JACKELYN L [facility] Start: 02-02-2018 End: 02-03-2018 Patient encounter procedure [place] Hannah [facility] Start: 02-02-2018 End: 02-02-2018 Patient encounter procedure LETICIA E [facility] Start: 01-16-2018 End: 01-17-2018 Patient encounter procedure HANNAH R [facility] Start: 01-11-2018 End: 01-12-2018 Patient encounter procedure HANNAH Antonio [facility] Start: 01-09-2018 End: 01-10-2018 Patient encounter procedure HANNAH R [facility] Start: 01-02-2018 End: 01-03-2018 Patient encounter procedure [facility]ANNAH [facility] Start: 12-16-2017 End: 12-17-2017 Patient encounter procedure [facility]ANNAH [facility] Start: 12-06-2017 End: 12-07-2017 Patient encounter procedure [facility] Procedures Date Procedure Procedure Detail Performing Clinician Start: 09-05-2023 Colonoscopy Stefan Mclean Start: 09-05-2023 Esophagogastroduodenoscopy Kevinkaylan pope Start: 07-17-2022 H/O: surgery History of parotidectomy Brandon Juares DO Work Phone: Start: 02-08-2022 Plain chest X-ray ACTIVITIES COUNSELOR-C Abdullahi Selby Work Phone: Start: 12-27-2021 Plain chest X-ray ACTIVITIES COUNSELOR-C Abdullahi Selby Work Phone: Start: 11-18-2021 Plain chest X-ray ACTIVITIES COUNSELOR-C Abdullahi Selby Work Phone: Start: 09-28-2018 BEDREST [...] Cleo Mayra SARS-CoV-2, Influenza & RSV (PCR) ACTIVITIES COUNSELOR-C Abdullahi Selby Work Phone: SARS-CoV-2, Influenza & RSV (PCR) ACTIVITIES COUNSELOR-C Abdullahi Selby Work Phone: SARS-CoV-2, Influenza & RSV (PCR) ACTIVITIES COUNSELOR-C Abdullahi Selby Work Phone: Plan of Treatment Date Care Activity Detail Author Start: 02-08-2024 End: 02-08-2024 Patient encounter procedure 02/08/2024 2:30 PM EST Office Visit [facility] [address] [place] [phone] Brandon Juares DO [address] [place] [id number] [facility] Start: 01-23-2024 End: 11-08-2024 25-hydroxyvitamin D3 [Mass/volume] in Serum or Plasma Vitamin D 25 hydroxy Total Lab Routine Status post partial thyroidectomy (CMS/HCC) Expected: 01/23/2024 (Approximate), Expires: 11/08/2024 [facility] Comment on above: Expected: 01/23/2024 (Approximate), Expires: 11/08/2024 Start: 01-23-2024 End: 11-08-2024 Calcium [Mass/volume] in Serum or Plasma Calcium Lab Routine Status post partial thyroidectomy (CMS/HCC) Expected: 01/23/2024 (Approximate), Expires: 11/08/2024 [facility] Comment on above: Expected: 01/23/2024 (Approximate), Expires: 11/08/2024 Start: 01-23-2024 End: 11-08-2024 Parathyrin.intact [Mass/volume] in Serum or Plasma PTH, intact Lab Routine Status post partial thyroidectomy (CMS/HCC) Expected: 01/23/2024 (Approximate), Expires: 11/08/2024 [facility] Comment on above: Expected: 01/23/2024 (Approximate), Expires: 11/08/2024 Start: 01-23-2024 End: 11-08-2024 Thyrotropin [Units/volume] in Serum or Plasma [facility] Work Phone: Comment on above: Expected: 01/23/2024 (Approximate), Expires: 11/08/2024 Start: 01-23-2024 End: 11-08-2024 Triiodothyronine (T3) [Mass/volume] in Serum or Plasma T3 Lab Routine Status post partial thyroidectomy (CMS/HCC) Expected: 01/23/2024 (Approximate), Expires: 11/08/2024 [facility] Comment on above: Expected: 01/23/2024 (Approximate), Expires: 11/08/2024 Start: 11-09-2023 End: 11-09-2023 Patient encounter procedure [facility] Comment on above: Arrived Start: 10-24-2023 End: 10-11-2024 25-hydroxyvitamin D3 [Mass/volume] in Serum or Plasma Vitamin D 25 hydroxy Total Lab Routine Thyroid mass (CMS/HCC) Expected: 10/24/2023 (Approximate), Expires: 10/11/2024 [facility] Comment on above: Expected: 10/24/2023 (Approximate), Expires: 10/11/2024 Start: 10-24-2023 End: 10-11-2024 Calcium [Mass/volume] in Serum or Plasma Calcium Lab Routine Thyroid mass ([facility]/HCC) Expected: 10/24/2023 (Approximate), Expires: 10/11/2024 [facility] Comment on above: Expected: 10/24/2023 (Approximate), Expires: 10/11/2024 Start: 10-24-2023 End: 10-11-2024 Parathyrin.intact [Mass/volume] in Serum or Plasma PTH, intact Lab Routine Thyroid mass ([facility]/HCC) Expected: 10/24/2023 (Approximate), Expires: 10/11/2024 [facility] Comment on above: Expected: 10/24/2023 (Approximate), Expires: 10/11/2024 Start: 10-24-2023 End: 10-11-2024 Thyrotropin [Units/volume] in Serum or Plasma [facility] Work Phone: Comment on above: Expected: 10/24/2023 (Approximate), Expires: 10/11/2024 Start: 10-24-2023 End: 10-11-2024 Triiodothyronine (T3) [Mass/volume] in Serum or Plasma T3 Lab Routine Thyroid mass ([facility]) Expected: 10/24/2023 (Approximate), Expires: 10/11/2024 [facility] Comment on above: Expected: 10/24/2023 (Approximate), Expires: 10/11/2024 Start: 10-23-2023 Influenza vaccination Influenza Vacc ine (#1) [facility] Start: 10-12-2023 End: 10-12-2023 Patient encounter procedure 10/12/2023 3:15 PM EDT Office Visit [facility] [address] [place] [phone] Brandon Juares, DO [address] [place] [address] Arrived [facility] Comment on above: Arrived Start: 12-28-2021 Blood chemistry [facility] Start: 12-28-2021 End: 12-28-2021 [facility] Start: 12-27-2021 Microbial culture of sputum [facility] Start: 12-27-2021 Hospital admission [facility] Start: 12-27-2021 [facility] Start: 11-18-2021 Hospital admission [facility] Start: 11-18-2021 Plain chest X-ray XR chest 1V portab le [facility] Start: 11-18-2021 XR Chest Single view Fi [facility] Start: 10-22-2021 Influenza vaccination INFLUENZA (#1) [facility] Start: 02-21-2021 DEPRESSION ASSESSMENT DEPRESSION ASS ESSMENT [facility] Start: 05-28-2020 COVID-19 VACCINE (3 - Booster for Pfizer series) COVID-19 VACCINE (3 - Booster for Pfizer series) [facility] Start: 12-08-2019 Screening for malign ant neoplasm of cervix [facility] Start: 2014 HPV TESTING HPV TESTING [facility] Start: 2014 Screening for malign ant neoplasm of cervix HPV/Cotest [facility] Start: 2005 PAP TESTING PAP TESTING [facility] Start: 08-29-2003 Urine microalbumin profile DTAP,TDAP,TD (1 - Tdap) [facility] Start: 2002 ANNUAL PCP TEAM BELT PUNCHER YASEMIN DISEASE VISIT ANNUAL PCP TEAM CHRONIC DISEASE VISIT [facility] Start: 2002 HEPATITIS C SCREENING HEPATITIS C SC FRANCOISE [facility] Start: 2002 HIV SCREENING HIV SCREENING [facility] Start: 2002 SPIROMETRY SPIROMETRY [facility] Start: 1996 Adult depression screening assessment DEPRESSION SCREENING [facility] Start: 1990 PNEUMOCOCCAL (1 - PCV) PNEUMOCOCCAL (1 - PCV) [facility] Start: 02-28-1985 COVID-19 VACCINE (#1) COVID-19 VACCI NE (#1) [facility] Start: 1984 HEPATITIS B (1 of 3 - 3-dose series) HEPATITIS B (1 of 3 - 3-dose series) [facility] Patient Education Viral Syndrome (DC) [facility] Work Phone: Patient referral [facility] Work Phone: [facility] [place] [facility] Immunizations Immunization Date Immunization Notes Care Provider Mary leija 04-02-2020 COVID-19 mRNA, Comirnaty (Pfizer) ACTIVITIES COUNSELOR-C Abdullahi Selby Work Phone: [facility] 03-12-2020 COVID-19 mRNA, Comirnaty (Pfizer) ACTIVITIES COUNSELOR-Jase Selby Work Phone: [facility] Payers Date Payer Category Payer Self-pay [id number] 2023 Private Health Insurance MARGARET MCADAMS [id number] 2023-Present [address] [place] [id number] 2023 Private Health Insurance [id number] 2022 Unknown 2022 Unknown [id number] 2019 Medicaid [place] [employer] [place] [employer] [id number] 2019-Present [phone] [address] [place] [address] Medicaid [id number] 2016 Unknown [id number] 1984 Unknown [id number] 2.16.840.1.403262.3.579.2.1 73 1984 Unknown [id number] 2.16.840.1.618229.3.579.2.1 73 1984 Unknown [id number] 2.16.840.1.523453.3.579.2.1 73 1984 Unknown [id number] 2.16.840.1.228521.3.579.2.1 73 1984 Unknown [id number] 2.16.840.1.307173.3.579.2.1 73 1984 Unknown [id number] 2.16.840.1.609658.3.579.2.1 73 1984 Unknown [id number] 2.16.840.1.884448.3.579.2.1 73 1984 Unknown [id number] 2.16.840.1.465109.3.579.2.1 73 1984 Unknown [id number] 2.16.840.1.996053.3.579.2.1 73 1984 Unknown [id number] 2.16.840.1.722130.3.579.2.1 73 1984 Unknown [id number] 2.16.840.1.696813.3.579.2.1 73 1984 Unknown [id number] 2.16.840.1.299822.3.579.2.1 73 1984 Unknown [id number] 2.16.840.1.661755.3.579.2.1 73 1984 Unknown [id number] 2.16.840.1.273541.3.579.2.1 73 1984 Unknown [id number] 2.16.840.1.196127.3.579.2.1 1984 Unknown [id number] 2.16.840.1.362812.3.579.2.1 73 1984 Unknown [id number] 2.16.840.1.289133.3.579.2.1 73 1984 Unknown [id number] 2.16.840.1.061059.3.579.2.1 73 1984 Unknown [id number] 2.16.840.1.169433.3.579.2.5 93 1984 Unknown [id number] 2.16.840.1.368820.3.579.2.7 27 1984 Unknown [id number] 2.16.840.1.332028.3.579.2.7 27 1984 Unknown [id number] 2.16.840.1.004681.3.579.2.7 1984 Unknown [id number] 2.16.840.1.326546.3.579.2.7 1984 Unknown [id number] 2.16.840.1.690184.3.579.2.7 1984 Unknown [id number] 2.16.840.1.517015.3.579.2.7 1984 Unknown [id number] 2.16.840.1.446032.3.579.2.7 1984 Unknown [id number] 2.16.840.1.071196.3.579.2.7 1984 Unknown [id number] 2.16.840.1.836451.3.579.2.7 1984 Unknown [id number] 2.16.840.1.837798.3.579.2.7 1984 Unknown [id number] 2.16.840.1.524601.3.579.2.7 1984 Unknown [id number] 2.16.840.1.456826.3.579.2.7 1984 Unknown [id number] 2.16.840.1.496986.3.579.2.7 1984 Unknown [id number] 2.16.840.1.571175.3.579.2.7 1984 Unknown [id number] 2.16.840.1.389189.3.579.2.7 1984 Unknown [id number] 2.16.840.1.420537.3.579.2.7 1984 Unknown [id number] 2.16.840.1.889180.3.579.2.7 1984 Unknown [id number] 2.16.840.1.779267.3.579.2.7 27 1984 Unknown [id number] 2.16.840.1.231552.3.579.2.7 27 1984 Unknown [id number] 2.16.840.1.091711.3.579.2.7 27 1984 Unknown [id number] 2.16.840.1.066076.3.579.2.1 259 1984 Unknown [id number] 2.16.840.1.563512.3.579.2.1 259 1984 Unknown [id number] 2.16.840.1.876692.3.579.2.1 259 1984 Unknown [id number] 2.16.840.1.314420.3.579.2.1 259 1984 Unknown [id number] 2.16.840.1.281037.3.579.2.1 259 1984 Unknown [id number] 2.16.840.1.405733.3.579.2.1 259 1984 Unknown [id number] 2.16.840.1.028860.3.579.2.1 259 1984 Unknown [id number] 2.16.840.1.294930.3.579.2.7 27 1959 Unknown [id number] 2.16.840.1.454479.19 Unknown [id number] Unknown [id number] 2.16.840.1.989555.3.579.2.5 31 Unknown [id number] 2.16.840.1.028955.3.579.2.5 31 Unknown [id number] 2.16.840.1.074623.3.579.2.5 31 Social History Date Type Detail Facility Unknown if ever smoked [facility] Start: 03-17-2023 End: 10-12-2023 Sex Assigned At [facility] Start: 10-02-2021 End: 07-17-2022 Tobacco smoking status NHIS Never smoked tobacco [facility] Start: 10-02-2021 End: 07-17-2022 Tobacco use and exposure Smokeless tobacco non-user [facility] Start: 10-02-2021 End: 12-10-2021 Alcohol intake Lifetime non-drinker (finding) [facility] Start: 1985 Sex Assigned At Female [facility] Start: 09-18-2021 End: 11-30-2021 Exposure to SARS-CoV-2 (event) Not sure [facility] Work Phone: Tobacco smoking status Never [facility] Tobacco [facility] Comment on above: denies Tobacco smoking status No Smoking Status Entered [facility] Start: 10-12-2023 End: 11-09-2023 Alcoholic beverage intake Ex-drinker (finding) [facility] Start: 03-17-2023 End: 10-12-2023 History of Social function [facility] Start: 08-31-2022 Alcohol Comment 2 cans diet pepsi NO [facility] Start: 1985 Sex assigned at Not on file [facility] NEGATED: Highlighted rowStart: NINF History of tobacco use Passive smoker [facility] Medical Equipment Procedure Code Equipment Code Equipment Origin al Text Equipment Identifier Dates Pen [place] [id number] X 5 MM Start: 05-15-2020 Goals Date Patient Goal Desired Activity /State Functional Status Date Assessment Result Facility 09-21-2023 Functional Status N/A [facility] 09-05-2023 Functional Status N/A [facility] 09-01-2023 Functional Status N/A [facility] 08-03-2023 Functional Status N/A [facility] 12-28-2021 Functional status Patient at Baseline [facility] Work Phone: 11-18-2021 Functional status Patient at Baseline [facility] Work Phone: Mental Status Date Assessment Result Facility 12-28-2021 Cognitive function Cognitive Sta tus Patient at Baseline [facility] Work Phone: 11-18-2021 Cognitive function Cognitive Sta tus Patient at Baseline [facility] Work Phone: Clinical Notes 11-13-2020 to 11-09-2023 [...] for this visit: Status post partial thyroidectomy ([facility]) (Primary) Comments: I will see the patient back in 3 months with lab work including PTH calcium and vitamin-D Orders: - TSH; Future - T3; Future - T4; Future - PTH, intact; Future - Calcium; Future - Vitamin D 25 hydroxy Total; Future - TSH - T3 - T4 - PTH, intact - Calcium - Vitamin D 25 hydroxy Total Other hyperparathyroidism ([facility]) Comments: See above documented in this encounter [facility] 10-12-2023 History of Present illness Narrative [...] for 3 months. documented in this encounter [facility] 09-05-2023 Hospital Discharge instructions Patient Education 09/05/2023 13:52:58 Endoscopy, Care After Procedure [facility] ([facility] Endoscopy Care After Procedure Please read [...] blood. Document Released: 09/21/2004 Document Re-Released: 08/01/2006 [facility] Patient Information 2010 [employer]. 09/05/2023 13:52:53 Hemorrhoids, Hzup-fn-Mmcy Hemorrhoids Hemorrhoids are swollen veins that may [...] 3 times a day. General instructions Take zheq-ksh-hdhsflz and prescription medicines only as told by [...] provider. Document Revised: 08/19/2021 Document Reviewed: 08/19/2021 [employer] Patient Education 2022 [employer]. 09/05/2023 13:52:50 Colonoscopy, Care After Surgery Salam [...] the day. Follow Up Care 09/01/2023 14:18:59 With:Viany INGRAM, TA Baker, [facility] Address: When: Unknown Comments:Call for any problems. The office will reach out in about one week from procedure date. [facility] 09-05-2023 Note Progress Note-Physic ez Patient: MORRO MALONEY Age: 38 years Sex: Female : 1985 Associated Diagnoses: None Author: Arden Arambula Jr., DO Postoperative Information Postoperative disposition: Postoperative disposition: Home. Optimetrix number: Optimetrix number [id number]. Anesthetic utilized: General. Physical Examination Vital Signs [...] Ambulatory Surgery Unit, and To home ). [facility] Comment on above: Result Comment: Elec [...] Author:Coy segura Jr. Arden BURROWS Date:09/05/23 Plan [place] [employer]esthesi[employer] (ASA) physical status classification: Class II. Anesthetic Preoperative Plan: Anesthesia General. Future Appointments Appointment Date:09/22/2023 10:15:00 AM Scheduled Provider:Stefan Mclean MD Location:[facility] Appointment Type:[facility] Follow Up Future Scheduled Tests Laboratory* CBC w/ Auto Diff 10/10/23 * CBC w/ Auto Diff 08/08/23 * CBC w/ Auto Diff 08/22/23 * Comprehensive Metabolic Panel 10/10/23 * Ferritin 10/10/23 * Folate Level 10/10/23 * Iron Level 10/10/23 * Iron Percent Saturation 10/10/23 * Transferrin 10/10/23 [facility]07-15-2024 NotePatient Education - Text Endoscopy Care After Procedure Please read the instructions outlined below and refer to this sheet in the next few weeks. These discharge instructions provide you with general information on caring for yourself [facility]. Your doctor may also give you [...] Document Re-Released: 08/01/2006 ExitCare? Patient Information ?2009 [employer]. Colonoscopy Care After Surgery Please read the instructions outlined below and refer to this sheet in the next few weeks. These discharge instructions provide you with general information on caring for yourself after you [facility]. Your doctor may also give you [...] around the opening o (more content not included)...[facility]07-15-2024 NoteColonoscopy Procedure Report Patient: MORRO MALONEY Age: 38 years Sex: Female : 1985 Associated Diagnoses: None Author: Stefan Mclean MD Pre-Procedure Procedure Date 09/05/2023 13:32:00 . Procedure Type: Colonoscopy. Procedure provider Performed by Stefan Mclean MD. Current history and physical Documented on chart. Appendectomy ([id number]). Gastric sleeve ([id number]). Cholecystectomy ([id number]). delivery ([id number]). Parotidectomy ([id number]).. Past Medical History No active or resolved past medical history items have been selected or recorded.. Family History Ulcerative colitis Father Grandparent . Procedure History Appendectomy ([id number]). Gastric sleeve (5222884215). Cholecystectomy (38654760). delivery ([id number]). Parotidectomy (137309540).. Colorectal neoplasm risk assessment Average risk. Informed [...] q4hr for wheezing, 18 gram, Refill(s) 5, [facility]/pharmacy #[id number], 161, cm, 10/18/22 14:05:00 EDT, Height/Length Dosing, 105.6, kg, 10/18/22 13:58:00 EDT, Weight Dosing folic acid 1 mg Tab: 1 mg = 1 tab(s), Oral, Daily, # 90 tab(s), Refills(s) 4, Pharmacy: [facility]/pharmacy #[id number], 161, cm, 08/15/23 11:32:00 [...] benefit from capsule endoscopy to assess for anemiaSt[facility] HospitalComment on above:Other Comment: Missing Attachment - attachment storage system not supported [id number] Can be viewed in source system Missing Attachment - attachment storage system not supported [id number] Can be viewed in source systemMissing Attachment - attachment storage system not supported [id number] Can be viewed in source systemMissing Attachment - attachment storage system not supported [id number] Can be viewed in source [id number] NoteProgress Note-Physician Patient: MORRO MALONEY Age: 38 [...] Daily, # 90 tab(s), Refills(s) 4, Pharmacy: [facility]/pharmacy #[id number], 161, cm, 08/15/23 11:32:00 [...] list: All Problems Asthma / SNOMED CT 773953089 / Confirmed Bloating / SNOMED CT 588366980 / Confirmed Cyst of thyroid / SNOMED CT 661974319 / Confirmed Difficulty swallowing / SNOMED CT 76239754 / Confirmed Elevated creatine kinase / SNOMED CT 7113734291 / Confirmed Elevated glucose / SNOMED CT 7627938991 / Confirmed Elevated WBCs / SNOMED CT 563787914 / Confirmed Enlarged thyroid gland / SNOMED CT 1058605 / Confirmed Fatigue / SNOMED CT 194194314 / Confirmed Iron deficiency anemia / SNOMED CT 084981139 / Confirmed Low back pain / SNOMED CT 778471824 / Confirmed Shortness of breath / SNOMED CT 717715787 / Confirmed Spondylosis / SNOMED CT 85534788 / Confirmed Thyroid nodule / SNOMED CT 987103409 / Confirmed Weight gain / SNOMED CT 24203393 / Confirmed Weight loss / SNOMED CT 935378376 / Confirmed Wellness examination / SNOMED CT 703159597 / Confirmed Histories Past Medical History: No active or resolved past medical history items have been selected or recorded. Procedure history: Appendectomy (776973420). Gastric sleeve (8006393572). Cholecystectomy (22692387). delivery (8075046325). Parotidectomy (968042466). Social History Social & Psychosocial Habits Alcohol [...] Respirations are non-labored. Cardiovascular: Regular rhythm. Plan [place] [employer] Anesthesiologists (ASA) physical status classification: Class II. Anesthetic Preoperative Plan: Anesthesia General.[facility] Comment on above:Result Comment: Electronically Signed By: Arden Arambula Jr., DO.ariel\Date and Time Signed: 09/05/23 13:01 [id number] Hospital Discharge instructions Follow Up Care 08/09/2023 09:01:05 With:Jose MAY, JANES Finn Address: [facility] [address] [place] [phone] When: Unknown Comments:refer to GI to consider endoscopy for iron deficiency anemia.- if none in [place], [facility] 1mg daily- send 90 day supply with 4 refills to [facility], cmp, iron studies, folate in 8wksfollow-up in 8wks with ACTIVITIES COUNSELOR [facility]06-17-2024 Evaluation + Plan note Future Scheduled Tests Laboratory* CBC w/ Auto Diff 10/10/23 * CBC w/ Auto Diff 08/08/23 * CBC w/ Auto Diff 08/22/23 * CBC w/ Auto Diff 08/29/23 * Comprehensive Metabolic Panel 10/10/23 * Ferritin 10/10/23 * Folate Level 10/10/23 * Iron Level 10/10/23 * Iron Percent Saturation 10/10/23 * Transferrin 10/10/23 [facility]06-17-2024 Evaluation + Plan note Future Scheduled Tests Laboratory* CBC w/ Auto Diff 10/10/23 * CBC w/ Auto Diff 08/08/23 * CBC w/ Auto Diff 08/22/23 * Comprehensive Metabolic Panel 10/10/23 * Ferritin 10/10/23 * Folate Level 10/10/23 * Iron Level 10/10/23 * Iron Percent Saturation 10/10/23 * Transferrin 10/10/23 [facility] 06-17-2024 Evaluation + Plan note Future Scheduled Tests Laboratory* CBC w/ Auto Diff 08/08/23 * CBC w/ Auto Diff 08/22/23 [facility] 06-12-2024 Hospital Discharge instructions Patient [...] supplement. 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 Surgery or additional testing procedures to determine the cause of your anemia. You may need repeat blood tests to determine whether treatment is working. If the treatment does not seem to be working, you may need more tests. Follow these instructions at home: Medicines Take dkgp-twn-xelhdxw and prescription medicines only as told by [...] to keep your urine pale yellow. Take jdui-dql-sxjupos or prescription medicines. Eat foods that are [...] the cause of your iron deficiency. Take fupp-gaz-ouiamee and prescription medicines only as told by [...] provider. Document Revised: 03/17/2022 Document Reviewed: 03/17/2022 [employer] Patient Education 2022 [employer] 08/03/2023 14:14:52 Shortness of Breath, Adult [...] to any changes in your symptoms. Take okze-dgf-upctnsp and prescription medicines only as told by [...] provider. Document Revised: 09/26/2021 Document Reviewed: 09/26/2021 [employer] Patient Education 2022 [employer] 08/03/2023 14:14:52 Anemia Anemia Anemia is a [...] spleen. Follow these instructions at home: Take cncv-jcp-onldwzi and prescription medicines only as told by [...] provider. Document Revised: 05/03/2022 Document Reviewed: 05/03/2022 [employer] Patient Education 2022 [employer] Follow Up Care 08/03/2023 10:47:32 With:José Antonio Benitez Address: [facility] [address] [place] [address]- When:08/06/2023 13:33:53 Comments:Make sure to follow-up with as discussed. Return to the emergency room if your symptoms get worse or any new symptoms. With:Cleo Hernandez Address:Unknown When:Within 3 Day(s) [facility]06-12-2024 Evaluation + Plan noteExtracted from: [...] Diagnostic Tests Pending * Path. Review 08/03/23 [facility]2023 Evaluation + Plan note Diagnostic Tests Pending * T3 Free 10/18/22 [facility]11-06-2022 History and physical note Author Nan Brand [facility] December 27, 2021 6:03pm Note Date/Time December 27, 2021 5 :46pm [facility] [address] [place] [address] Hospitalist H&P Signed Patient: Morro Maloney MR#: [id number] : 1985 Acct:[id number] Age/Sex: 36 / F Adm Date: 2 Loc: ER Room: Type: [facility] ER Attending Dr: Copies to: MYKEL [...] % (Auto) 23.6 % (.) 12/27/21 14:42 [place] % (Auto) 5.7 % (.) 12/27/21 14:42 Eos % (Auto) 1.9 % (.) 12/27/21 14:42 Baso % (Auto) 0.8 % (.) 12/27/21 14:42 Neut # (Auto) 8.6 x10E3/uL (1.8-7.7) H 12/27/21 14:42 Lymph # (Auto) 3.0 x10E3/uL (1.00-4.8) 12/27/21 14:42 [place] # (Auto) 0.7 x10E3/uL (0.0-0.8) 12/27/21 14:42 [...] <Electronically signed by Nan Brand MD> 12/27/21 1084 [facility] Work Phone: 1(696) 129-295210-20-2022 History of Present illness Narrative* Meenakshi Obrien MD - 12/10/2021 11:05 AM EDT ASSESSMENT/PLAN: 1. Monocular esotropia, left eye - ICD9: 378.01, ICD10: H50.012 (primary diagnosis) 2. Diplopia - ICD9: 368.2, ICD10: H53.2 - acute onset left esotropia with diplopia for 6 months - worked up with MRI brain that was normal - POW#1 s/p [facility] - great alignment - rare diplopia. [...] 10, 2021 11:05 AM documented in [facility] encounter[facility]10-[facility]-2022 Miscellaneous Notes* Telephone Encounter - Enid Tafoya - 11/27/2021 10:43 AM EDT Spoke to patient; relayed message below. Meenakshi Obrien I just heard from the head anesthesiologist that we can proceed with her surgery on Tuesday. Thanks! * Telephone Encounter - Enid Tafoya - 11/27/2021 9:49 AM EDT Morro Maloney Sung [id number] 11/26/21 Fv 11/30/21 Sx Patient is calling [...] eyes - Proceed with strabismus surgery - [facility]. Consent obtained. - recent asthma exacerbation. Will check with anesthesia. Follow-up in: Surgery documented in this encounter[facility]10-06-2022 History of Present illness Narrative* [...] eyes - Proceed with strabismus surgery - [facility]. Consent obtained. - recent asthma exacerbation. [...] 26, 2021 9:16 AM documented in this encounterSouthern [facility] Center09-29-2022 Progress note Author Jp Barba [facility] November 19, 2021 10:22pm Note Date/Time November 19, 2021 10:00am [facility] [address] [place] [address] Hospitalist Progress Note Signed Patient: Morro Maloney MR#: [id number] : 1985 Acct:[id number] Age/Sex: 36 / F Adm Date: 2 Loc: 3T Room: [address] [place] [address] Type: DIS IN Attending Dr: Jp Barba [...] <Electronically signed by Jp Barba DO> 11/19/212221 [facility] Work Phone: 1(459) 798-147609-28-2022 Progress note Author Jp Barba [facility] November 18, 2021 1:57pm Note Date/Time November 18, 2021 1:50pm [facility] [address] [place] [address] Hospitalist Progress Note Signed Patient: Morro Maloney MR#: [id number] : 1985 Acct:[id number] Age/Sex: 36 / F Adm Date: 2 Loc: Room: [address] [place] [address] Type: ADM IN Attending Dr: Jp Barba [...] <Electronically signed by Jp Barba DO> 11/18/21 2117 [facility] Work Phone: 1(980) 738-382809-28-2022 History and physical note Author Andres Espana [facility] November 18, 2021 4:53am Note Date/Time November 18, 2021 4:53am [facility] [address] [place] [address] Hospitalist H&P Signed Patient: Morro Maloney MR#: [id number] : 1985 Acct:[id number] Age/Sex: 36 / F Adm Date: 2 Loc: Room: [address] [place] [address] Type: ADM INOo Attending Dr: Andres Mcgee MD Copies to: MD Abdullahi Vallejo ACTIVITIES COUNSELOR-C~ HPI DATE OF EXAMINATION: 11/18/21 CHIEF COMPLAINT: [...] % (Auto) 16.7 % (.) 11/18/21 02:42 [place] % (Auto) 5.6 % (.) 11/18/21 02:42 Eos % (Auto) 3.1 % (.) 11/18/21 02:42 Baso % (Auto) 0.8 % (.) 11/18/21 02:42 Neut # (Auto) 8.9 x10E3/uL (1.8-7.7) H 11/18/21 02:42 Lymph # (Auto) 2.0 x10E3/uL (1.00-4.8) 11/18/21 02:42 [place] # (Auto) 0.7 x10E3/uL (0.0-0.8) 11/18/21 02:42 [...] <Electronically signed by Andres Mcgee MD> 11/18/21 0459 [facility] Work Phone: 1(225) 888-115009-21-2022 Instructions* Patient Instructions* Homa Mack PA-C - 11/11/2021 11:50 AM EDT PATIENT PREOPERATIVE INSTRUCTIONS Self has scheduled you for your procedure at this surgery center: [facility]: [phone] --[address] [facility], [place] [address]. Please read below carefully for your personalized [...] Procedures: - YOU MUST HAVE A RESPONSIBLE DIAMOND BLENDER TAKE YOU HOME. A FUNERAL CAR CHAUFFEUR OR BLOCK FEEDER CANNOT BE MADE A RESPONSIBLE DIAMOND BLENDER. - We recommend that a responsible person [...] Advance Directive, please fax a copy to [phone] or email to for it to be [...] day. Homa Mack PA-C documented in this encounterSouthern [facility] Center09-21-2022 History and physical note * Homa Mack PA-C - 11/11/2021 11:20 AM EDT PREANESTHESIA CONSULT CLINIC TELEHEALTH VISIT Patient has been identified by name and date of : Yes This is a virtual visit using ebookpie video visit. It require patient-provider interaction for [...] 06/2021 Neuro: No history of TIA's, stroke, BOAT JOINER tumor, impaired sensorium, hemiplegia, paraplegia or quadraplegia. No neurological symptoms or problems. Respiratory: No current cough or dyspnea, or pneumonia in the past 6 weeks.+asthma- last used rescue inhaler 1 week ago +PATRICE- mild per patient and did not require CPAP Cardiovascular: No history of HTN requiring medication, no history of angina, CHF, [place], cardiac surgery or stents. Denies rest pain, gangrene or revascularization/amputation for PVD. No history of cardiovascular symptoms or problems. +hyperlipidemia GI: No history of esophageal varices, recent ascites, or ETOH greater than 2 drinks per day.+h/o GERD mostly with +fatty liver +sleeve gastrectomy 06/2021 : No history of dysuria, frequency or incontinence,, stones or chronic kidney disease PUTAWAY DRIVER: Negative for abnormal vaginal bleeding, abnormal vaginal [...] change was found Confirmed by HANNAH PEREZ ([id number]) on 04/10/2018 Impression/Recommendations ASSESSMENT: Hyperlipidemia Assessment: not [...] device. I spent more than 21-40 minutes trhw-br-gkri with the patient and over half the time was devoted tocounseling and/or coordination of care. This is a virtual visit. It required patient-provider interaction for the medical decision making as documented above. SIGNATURE: Homa Mack PA-C PATIENT NAME: Morro Maloney DATE: November 11, 2021 TIME: 11:10 AM PAGER/CONTACT #: documented in this encounterSouthern [facility] Center08-15-2022 Miscellaneous Notes* Telephone Encounter - Sajan Dodd - 10/05/2021 3:08 PM EDT Spoke with pt and scheduled Strabismus surgery on 11/30/21. Pt will schedule PACC with her PCP. Blaze Geronimo documented in this encounterSouthern [facility] Medical Center08-12-2022 Instructions* Patient Instructions* Meenakshi Obrien MD - 10/02/2021 2:44 PM EDT Information for surgery with Dr. Obrien Surgery Scheduling [place] - Tuesday of each month. Adults and children 1 year old and older. No major medical comorbidities (including sleep apnea, obesity, and pacemaker). [facility] - Second (PM start), Fourth (AM start), and (AM start) Tuesday of each month. Surgery coordinator for [facility] - Allegra Hearn [phone]. An alternative number is [phone]. Surgery coordinator at [facility] - Blaze Geronimo [phone]. Adults have to get prior authorization from [...] If their physician is outside of the [facility] system, then please bring a printed copy of their history and physical with on the day of their surgery. Schedule pre-anesthesia testing appointment. Call [phone]. Pre-op measurements. Sometimes we do a pre-op [...] prior to surgery, you can send a RVX message or you can call Dr. Obrien s office at [phone]. Children get sick a lot! If your [...] home/pick them up from school, etc. Location: [place] - Surgery center is on 2nd floor [address] [place] - Surgery pre-op waiting areas is 3 [...] questions or to examine the patient at [facility], even at night and on the weekends. Dr. Obrien s office number is [phone]. documented in this encounterSouthern [facility] Medical Center08-12-2022 History of Present illness Narrative* [...] 02, 2021 2:44 PM documented in this encounterSouthern [facility] Center12-09-2021 Evaluation note* Encounter Date Diagnosis [...] - G89.29) Continue with current treatment plan [facility] Other 10-26-2021 Evaluation note* Encounter Date Diagnosis [...] - G89.29) Continue with current treatment plan [facility] Other 09-23-2021 Evaluation note* Encounter Date Diagnosis [...] - G89.29) Continue with current treatment plan [facility]le[facility] Other Discharge summary Author Jp Barba [facility] November 19, 2021 10:28pm Note Date/Time November 19, 2021 10:28pm [facility] [address] [place] [address] Discharge Summary Signed Patient: Morro Maloney MR#: [id number] : 1985 Acct:[id number] Age/Sex: 36 / F Adm Date: 2 Loc: Room: [address] [place] [address]: Jp Barba DO Copies to: [...] 36-year-old female who presented to hospital the clinical phlebotomist of 09/17 with a chief complaint of [...] <Electronically signed by Jp Barba DO> 11/19/212227 [facility] Work Phone: Discharge summary Author Hema Miramontes [facility] December 28, 2021 4:50pm Note Date/Time December 28, 2021 4 :50pm [facility] [address] [place] [address] Discharge Summary Signed Patient: Morro Maloney MR#: [id number] : 1985 Acct:[id number] Age/Sex: 36 / F Adm Date: 2 Loc: Room: [address] [place] [address]: Hema Miramontes MD Copies to: MD Abdullahi Lee ACTIVITIES COUNSELOR-C~ Providers Date of Discharge: 12/28/21 Discharging Provider: [...] Patient was maintained on maintenance inhaler in [facility], but is currently not taking any maintenance [...] % (Auto) 89.6, Lymph % (Auto) 8.7, [place] % (Auto) 1.3, Eos % (Auto) 0.0, Baso % (Auto) 0.4, Neut # (Auto) 10.0 H, Lymph # (Auto) 1.0, [place] # (Auto) 0.1, Eos # (Auto) 0.0, [...] PRN (Reason: wheeze) Follow Up: Abdullahi Selby, ACTIVITIES COUNSELOR-C [Primary Care Provider] - 12/31/21 1:00 pm (You have beenscheduled for a follow up appointment for the following date and time, please call to reschedule if needed.) Documented By: Hema Miramontes MD 2 1640 Signed By: <Electronically signed by Hema Miramontes MD> 12/28/21 7650 [facility] Work Phone: Evaluation + Plan note Future Appointments Appointment Date:08/15/2023 11:20:00 AM Scheduled Provider:Quyen Mitchell Location:FT.ONCOLOGY Appointment Type:ONC Office Visit New 40 (FT) Diagnostic Tests Pending * Erythropoietin Level 08/12/23 Future Scheduled Tests Laboratory* CBC w/ Auto Diff 08/08/23 * CBC w/ Auto Diff 08/22/23 * CBC w/ Auto Diff 08/29/23 [facility] Future Appointments Appointment Date:09/05/2023 02:00:00 PM Scheduled Provider: Location:[facility] Appointment Type:Surgery FT Future Scheduled Tests Laboratory* CBC w/ Auto Diff 10/10/23 * CBC w/ Auto Diff 08/08/23 * CBC w/ Auto Diff 08/22/23 * Comprehensive Metabolic Panel 10/10/23 * Ferritin 10/10/23 * Folate Level 10/10/23 * Iron Level 10/10/23 * Iron Percent Saturation 10/10/23 * Transferrin 10/10/23 [facility] Evaluation + Plan note Future Appointments Appointment Date:09/05/2023 02:00:00 PM Scheduled Provider: Location:[facility] Appointment Type:Surgery FT Diagnostic Tests [...] 10/10/23 * Transferrin 10/10/23 [facility] Future Appointments Appointment Date:10/27/2023 02:20:00 PM Scheduled Provider:Quyen Mitchell Location:FT.ONCOLOGY Appointment Type:ONC Office Visit 20 (FT) Future Scheduled Tests Laboratory* CBC w/ Auto Diff 08/08/23 * CBC w/ Auto Diff 08/22/23 [facility] Evaluation noteNo [facility] [employer] Other Evaluation note* Diagnosis Monocular esotropia, left eye- Primary Monocular esotropia Diplopia documented in this encounter [facility]* Diagnosis Preoperative examination- Primary [...] eye Monocular esotropia documented in this encounter [facility] Center[facility]* Diagnosis Onset Date Resolution Status Acute respiratory failure with hypoxia acute Asthma exacerbation acute [facility] Work Phone: evaluation note* Diagnosis Onset Date Resolution Status Acute respiratory failure with hypoxia acute Asthma acute Asthma exacerbation acute Hypoxemia acute [facility] Work Phone: evaluation note* Diagnosis Monocular esotropia, left eye- Primary Monocular esotropia Monocular esotropia, left eye Monocular esotropia documented in this encounter [facility]* Diagnosis Monocular esotropia, left eye- Primary Monocular esotropia documented in this encounter [facility] CenterEvalubeebe healthcare note* Diagnosis Onset Date Resolution Status Acute respiratory failure with hypoxia acute Asthma acute Asthma exacerbation acute Hypoxemia acute Asthma exacerbation acute [facility] Work Phone: evaluation note* Diagnosis Onset Date Resolution Status Acute respiratory failure with hypoxia acute Asthma acute Asthma exacerbation acute Hypoxemia acute Asthma exacerbation acute Viral illness acute [facility] Work Phone: Evaluation noteNo assessment information available [facility] Work Phone: evaluation note* Diagnosis Status post partial thyroidectomy (CMS/HCC)- Primary Other postprocedural status Other hyperparathyroidism (CMS/HCC) Other hyperparathyroidism [facility]* Diagnosis Status post partial thyroidectomy (CMS/HCC)- Primary Other postprocedural status Thyroid mass (CMS/HCC) Unspecified disorder of thyroid Low vitamin D level documented in this encounter [facility] Healthcare[facility] and physical note Author Nan Brand [facility] December 27, 2021 6:03pm Note Date/Time December 27, 2021 5 :46pm [facility] [address] [place] [address] Hospitalist H&P Signed Patient: Morro Maloney MR#: [id number] : 1985 Acct:[id number] Age/Sex: 36 / F Adm Date: 2 Loc: ER Room: Type: [facility] ER Attending Dr: Copies to: MYKEL [...] % (Auto) 23.6 % (.) 12/27/21 14:42 [place] % (Auto) 5.7 % (.) 12/27/21 14:42 Eos % (Auto) 1.9 % (.) 12/27/21 14:42 Baso % (Auto) 0.8 % (.) 12/27/21 14:42 Neut # (Auto) 8.6 x10E3/uL (1.8-7.7) H 12/27/21 14:42 Lymph # (Auto) 3.0 x10E3/uL (1.00-4.8) 12/27/21 14:42 [place] # (Auto) 0.7 x10E3/uL (0.0-0.8) 12/27/21 14:42 [...] signed by Nan Brand MD> 12/27/21 1803 [facility] Work Phone: History general Narrative - Reported* Type Description Date Medical History asthma Medical History PCOS Medical History bipolar Medical History panic disorder Medical History Gestational diabetes - yes Medical History Insulin Resistance Surgical History appendectomy Surgical History C section Surgical History gall bladder Hospitalization History Asthma Hospitalization History see above [facility] Other Hospital course Narrative No data available for this section [facility] Additional Instructions Do not start the prednisone for another 3 days and only if you need this Return for new or worsening symptoms Follow-up with family [facility] Work Phone: Hospital Discharge instructions No data available for this section [facility] No data available for this section [facility] Summary Purpose Family History Relationship [...] DATE CREATED AUTHOR AUTHOR'S ORGANIZ ATION 11/23/2021 [facility] dical Specialist DATE CREATED AUTHOR AUTHOR'S ORGANIZ ATION 07/05/2022 [facility] DATE CREATED AUTHOR AUTHOR'S ORGANIZ ATION 08/04/2023 [facility] DATE CREATED AUTHOR AUTHOR'S ORGANIZ ATION 08/12/2023 [facility] DATE CREATED AUTHOR AUTHOR'S ORGANIZ ATION 08/13/2023 [facility] DATE CREATED AUTHOR AUTHOR'S ORGANIZ ATION 08/18/2023 [facility] DATE CREATED AUTHOR AUTHOR'S ORGANIZ ATION 09/06/2023 [facility] DATE CREATED AUTHOR AUTHOR'S ORGANIZ ATION 09/08/2023 [facility] DATE CREATED AUTHOR AUTHOR'S ORGANIZ ATION 09/12/2023 [facility] DATE CREATED AUTHOR AUTHOR'S ORGANIZ ATION 09/20/2023 [facility] DATE CREATED AUTHOR AUTHOR'S ORGANIZ ATION 09/24/2023 [facility] DATE CREATED AUTHOR AUTHOR'S ORGANIZ ATION 10/12/2023 [facility] DATE CREATED AUTHOR AUTHOR'S ORGANIZ ATION 10/28/2023 [facility] DATE CREATED AUTHOR AUTHOR'S ORGANIZ ATION 10/28/2023 [facility] DATE CREATED AUTHOR AUTHOR'S ORGANIZ ATION 11/06/2023 [facility] DATE CREATED AUTHOR AUTHOR'S ORGANIZ ATION 11/11/2023 [facility] dical Specialists [facility] DATE CREATED AUTHOR AUTHOR'S ORGANIZ ATION 12/06/2023 [facility] REASON FOR VISIT (unrecogniz [...] or prosecute any alcohol or drug abuse patient.[facility] CenterIn the event this information is protected by the Federal Confidentiality of Alcohol and Drug Abuse Patient Records regulations: The Federal rules restrict any use of the information to criminally investigate or prosecute any alcohol or drug abuse patient.[facility] CenterIn the event this information is protected by the Federal Confidentiality of Alcohol and Drug Abuse Patient Records regulations: The Federal rules restrict any use of the information to criminally investigate or prosecute any alcohol or drug abuse patient.[facility] CenterIn the event this information is protected by the Federal Confidentiality of Alcohol and Drug Abuse Patient Records regulations: The Federal rules restrict any use of the information to criminally investigate or prosecute any alcohol or drug abuse patient.[facility] CenterIn the event this information is protected by the Federal Confidentiality of Alcohol and Drug Abuse Patient Records regulations: The Federal rules restrict any use of the information to criminally investigate or prosecute any alcohol or drug abuse patient.[facility] Center[facility] the event this information is protected by the Federal Confidentiality of Alcohol and Drug Abuse Patient Records regulations: The Federal rules restrict any use of the information to criminally investigate or prosecute any alcohol or drug abuse patient.[facility] CenterIn the event this information is protected by the Federal Confidentiality of Alcohol and Drug Abuse Patient Records regulations: The Federal rules restrict any use of the information to criminally investigate or prosecute any alcohol or drug abuse patient.[facility] Care Teams (unrecognized sec tion and content) Team Status: Active Member Role Status Dates ERAN Pham Primary Care Provider Active Jason Milton Jr, MD Emergency Provider Active Andres Mcgee MD Admit Provider, Attending P rovider Active Team Status: Active Member Role Status Dates Abdullahi Selby , ACTIVITIES COUNSELOR-C Primary Care Provider Active Team Status: Inactive Member Role Status Dates Abdullahi Selby , ACTIVITIES COUNSELOR-C Primary Care Provider Active Jason Milton Jr, MD Emergency Provider Active Andres Mcgee MD Admit Provider Active Jp Barba DO Attending Provider Active Team Status: Active Member Role Status Dates Abdullahi Selby , ACTIVITIES COUNSELOR-C Primary Care Provider Active ABDIRASHID Valerio-C Emergency Provider Active Nan Brand MD Admit Provider, Attending Provide r Active Team Status: Inactive Member Role Status Dates Abdullahi Selby , ACTIVITIES COUNSELOR-C Primary Care Provider Active Mark Britt PA-C Emergency Provider Active Nan Brand MD Admit Provider Active Hema Miramontes MD Attending Provider Active Team Status: Inactive Member Role Status Dates Abdullahi Selby , ACTIVITIES COUNSELOR-C Primary Care Provider Active Jennifer Terry PA-C Emergency Provider Active Team Status: Active Member Role Status Dates Cleo Hernandez , ACTIVITIES COUNSELOR-C Primary Care Provider Active Team Status: Inactive Member Role Status Dates Brandon Juares DO Attending Provider Active S tart: September 26, 2023 End: September 26, 2023 Cleo Hernandez ACTIVITIES COUNSELOR-C Primary Care Provider Active Start: September 26, 2023 End: September 26, 2023 Team Status: Inactive Member Role Status Dates Brandon Juares DO Attending Provider Active S tart: October 05, 2023 End: October 05, 2023 Team Status: Inactive Member Role Status Dates Cleo Hernandez ACTIVITIES COUNSELOR-C Primary Care Provider Active Start: October 25, 2023 End: October 25, 2023 Brandon Juares DO Attending Provider Active S tart: October 25, 2023 End: October 25, 2023 Order Editor Relationship Specialty Start Date End Date Abdullahi Selby NP [address] [place] [address] [facility] 08/21/22 Chet Isabel MD [address] [place] [address] PCP - General Family Medicine 09/20/23 Rolly Vail APRN-BOAT JOINER [address] [place] [phone] Nurse Practitioner Behavioral Health 08/04/22 Cleo Hernandez MD [address] [place] [phone] Referring Physician Family Medicine 09/20/23 Brandon Juares DO [address] [place] [address] Otolaryngology 09/20/23 Order Editor Relationship Specialty Start Date End Date Abdullahi Selby NP [address] [place] [id number] PCP - [facility] 08/21/22 Chet Isabel MD [address] [place] [phone] PCP - General Family Medicine 09/20/23 Rolly Vail APRN-BOAT JOINER [address] [place] [phone] Nurse Practitioner Behavioral Health 08/04/22 Cleo Hernandez MD [address] [place] [phone] Referring Physician Family Medicine 09/20/23 Brandon Juares DO [address] [place] [address] Otolaryngology 09/20/23 Order Editor Relationship Specialty Start Date End Date Abdullahi Selby NP [address] [place] [address] PCP - [facility] 08/21/22 Chet Isabel MD [address] [place] [phone] PCP - General Family Medicine 09/20/23 Rolly Vail, BRIM CUTTER-BOAT JOINER [address] [address] Nurse Practitioner Behavioral Health 08/04/22 Cleo Hernandez MD [address] [place] [id number] Referring Physician Family Medicine 09/20/23 Brandon Juares DO [address] [place] [address] Otolaryngology 09/20/23 Order Editor Relationship Specialty Start Date End Date Abdullahi Selby NP [address] [place] [address] PCP - [facility] 08/21/22 Chet Isabel MD [address] [place] [phone] PCP - General Family Medicine 09/20/23 Rolly Vail BRIM CUTTER-BOAT JOINER [address] [phone] Nurse Practitioner Behavioral Health 08/04/22 Cleo Hernandez MD [address] [place] [address] Referring Physician Family Medicine 09/20/23 Brandon Juares DO [address] [place] [address] Otolaryngology 09/20/23 Goals (unrecognized section and content) [...] BE BASED ON THE PRIMARY CLINICAL RECORDS. [facility]. provides no warranty or guarantee of the accuracy or completeness of information in this document.
--- NOTE | 2024-02-16 11:36 | CM.DCFOLLOWU ---
Person spoke with:patient How are you feeling? much better How is your pain?none Did you understand your discharge instructions?yes Do you have any questions about your discharge instructions?no Were you given any prescriptions at discharge?yes Were you able to get your prescriptions filled?yes Do you understand how to take your medications as ordered?yes Do you have any questions about your follow up appointment and do you plan to keep your follow up appointment? no questions, follow up tomorrow Is there anything else that you would like to discuss?no Questions/Comments/Concerns/Other:none
== END 2024-02-14 10:05 | disposition home or self-care (01) ==
LOC: ER 22:15 → ICU 02-14 09:28
PROVIDERS: Physician Assistant; Registered Nurse; Admitting Provider Family Medicine; Emergency Provider Emergency Medicine; PCP Nurse Practitioner; Visit Provider Family Medicine
DX: J45.901 Unspecified asthma with (acute) exacerbation (principal); R09.02 Hypoxemia; E66.9 Obesity, unspecified; Z68.39 Body mass index [BMI] 39.0-39.9, adult; Z79.899 Other long term (current) drug therapy; Z79.51 Long term (current) use of inhaled steroids; Z86.16 Personal history of COVID-19; Z98.84 Bariatric surgery status
CPT/HCPCS: 36415; 71045; 80048; 80053; 82800; 85025; 87040; 87420; 87804; 87811; 93005; 94640; 94761; 94799; 96365; 96366; 96367; 96368; 96375; 96376; 99285; G0378; J0456; J0696; J2919; J3475

== ENCOUNTER 2025-01-07 14:23 | Outpatient (OUT) | payer BC, SELFPAY ==
--- NOTE | 2025-01-07 14:28 | MM_ITS ---
Patient Name: MORRO GUADARRAMA MR#: [id number] : 1985 Exam Date: 01/07/2025 Ordering Doctor: CLEO NUNEZ . RADIOLOGY REPORT PROCEDURE: MM TOMOSYNTHESIS SCREENING BI COMPARISON: None. INDICATIONS: Screening Calculator Name NCI Breast Cancer Risk Assessment Tool 5 Year Breast Cancer Risk 0.70% Lifetime Breast Cancer Risk 12.50% Personal Breast Cancer No Personal Ovarian Cancer No Treatments None Family Cancers Grandmother-maternal with breast cancer at age 63; Grandmother-paternal with uterine cancer at age 70. LOCATION: [facility] BREAST COMPOSITION: There are scattered areas of fibroglandular density. FINDINGS: RIGHT BREAST: No significant suspicious finding. LEFT BREAST: There is a 1.5 cm focal asymmetry 10 cm deep to the nipple in the left breast slightly superior to the nipple at the 2 to 3 o'clock position. DIAGNOSTIC CATEGORY 0--INCOMPLETE: NEED ADDITIONAL IMAGING EVALUATION. RECOMMENDATIONS: ADDITIONAL MAMMOGRAPHIC VIEWS REQUIRED: LEFT BREAST - spot compressed views of the left breast with ultrasound if necessary is recommended. Dictated by: Yovani Herrmann MD on 01/07/2025 at 16:33 Approved by: Yovani Herrmann MD on 01/07/2025 at 16:38
--- OUTSIDE RECORDS SUMMARY | 2025-01-07 14:30 | XMS_ITS | CCD ---
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 Name Role Phone RINE, JACKELYN L Referring [...] Unavailable RINE, JACKELYN L Primary Care Unavailable Bradnon Perez Unavailable Rolly Carrera Unavailable Unavailable Primary Care Provider Unavailabl e Unavailable Primary Care Provider Unavailabl e ERAN Coronado Primary Care Provider MD Jason Milton Jr Emergency Provider Al MD Andres Evans Admit Provider Al MD Andres Evans Attending Provider [phone] DO Jp Barba Attending Provider ERAN Coronado Primary Care Provider [phone] MD Jason Milton Jr Emergency Provider Al MD Andres Evans Admit Provider DO Jp Barba Attending Provider MYKEL Britt Emergency Provider [phone] MD Nan Brand Admit Provider MD Nan Brand Attending Provider MD Hema Miramontes Attending Provider MYKEL Terry Emergency Provider KELLY GUERRERO Admitting Unavailable DIOR Ruiz, KELLY Attending Unavailable MARIYA GUERREROID Consulting Unavailable WENDY ROMAN Consulting Unavailable Cleo Hernandez Primary Care Physician [phone] Cleo Hernandez Admitting Unavailable MayraCleo L Attending Unavailable Elizabeth Moise H Attending Unavailable Adamowicz, José Antonio Admitting Unavailable Adamowicz, José Antonio Attending Unavailable Chavoowmonse, José Antonio Referring Unavailable MARTA Garcia- Quyen Pozo Attending U navailable Adamowicz, José Antonio Admitting Unavailable Adamowicz, José Antonio Attending Unavailable Stefan Mclean Admitting Unavailable MoStefan mosquera Attending Unavailable Stefan Mclean Attending Unavailable Adamowicz, José Antonio Admitting Unavailable Adamowicz, José Antonio Attending Unavailable Adamowicz, José Antonio Attending Unavailable Adamowicz, José Antonio Admitting Unavailable Mayra, Cleo Godfrey Attending Unavailable Mayra, Cleo L Admitting Unavailable Mayra, Cleo L Attending Unavailable Mayra, Cleo L Attending Unavailable Mayra, Cleo L Admitting Unavailable Mayra, Cleo L Attending Unavailable Mayra, Cleo L Admitting Unavailable Mayra, Cleo L Attending Unavailable Mayra, Cleo L Attending Unavailable Mayra, Cleo L Attending Unavailable Mayra, Cleo L Attending Unavailable Stefan Mclean Referring Unavailable MouchStefan pope Attending Unavailable MouchStefan pope ASara Admitting Unavailable MouchStefan pope Attending Unavailable MurceDO Brandon albert Attending Provider Mayra, ERAN Rivas Primary Care Provider Quyen Garcia Attending Unavailable Demboske, Quyen Pozo Admitting Unavailable Mayra, CAD DEVELOPER Cleo Godfrey Admitting Unavailable Mayra, CAD DEVELOPER Cleo Godfrey Attending Unavailable Mayra, CAD DEVELOPER Cleo Godfrey Referring Unavailable Elizabeth Moise H Attending Unavailable SOLAABDULLAHI Attending Unavailable MONY-NOSSEKROLLY Attending Unavailab le MONY-NOSSEK, ROLLY Abdul Attending Unavailab le MURCEBRANDON Albert Attending Unavailable MAYRACLEO Referring Unavailable MURCEK, BRANDON Patel Attending Unavailable MURCEK, BRANDON Patel Attending Unavailable MURCEK, BRANDON Patel Attending Unavailable Mony-Nossek SENIOR AUDIT MANAGER-MASH FILTER CLOTH CHANGERRolly Unavailable Abdullahi Coronado NP Unavailable Cleo Hernandez MD Unavailable Brandon Juares DO Unavailable Chet Isabel MD Primary Care Provider Cleo Hernandez Primary Care Unavailable Mor, Brandon Admitting Unavailable Murcek, Brandon Attending Unavailable Murcek, Brandon Admitting Unavailable Murcek, Brandon Attending Unavailable Murcek, Brandon Admitting Unavailable Murcek, Brandon Attending Unavailable MayraCleo Primary Care Unavailable Quyen Garcia Admitting Unavailable DembosQuyen zabala Attending Unavailable Mayra, CAD DEVELOPER Cleo L Attending Unavailable Mayra, CAD DEVELOPER Cleo L Attending Unavailable Mayra, CAD DEVELOPER Cleo L Admitting Unavailable Mayra, CAD DEVELOPER Cleo L Attending Unavailable Mayra SENIOR AUDIT MANAGER - GEOTHERMAL PLANT MANAGER, Cleo Primary Care Provider [phone] Mayra GEOTHERMAL PLANT MANAGER, Cleo Unavailable VIDA ALBRECHT Attending Unavailable MAYRA, CLEO Primary Care Unavailable CHRIS DIMAS Attending Unavailable MAYRA, CLEO Primary Care Unavailable Mayra, Cleo L Attending Unavailable Mayra, Cleo L Attending Unavailable COOKIE, KEMAR A Attending Unavailable Mayra, Cleo L Attending Unavailable COOKIE, KEMAR A Admitting Unavailable COOKIE, KEMAR A Attending Unavailable COOKIE, KEMAR A Referring Unavailable Mayra, Cleo L Attending Unavailable Mayra, Cleo L Admitting Unavailable Mayra, Cleo L Admitting Unavailable Mayra, Cleo L Attending Unavailable Mayra, Cleo L Attending Unavailable Mayra, Cleo L Referring Unavailable Mayra, Cleo L Admitting Unavailable Mayra, Cleo L Attending Unavailable Mayra, Cleo L Admitting Unavailable Allergies Allergy ClassificationReported Allergen(s)Allergy TypeDate of OnsetReaction(s) Facility (6 sources)Mold Extract; Translations: [mold]Drug [facility]jgwcry08-13-2952[facility] (10 sources)ARIPiprazole; Translations: [ARIPiprazole]Drug Uwjnynp26-09-0538 Other (See Comments)[facility] (11 sources)FLUoxetine; Translations: [FLUoxetine]Drug Yjdhvkz70-58-6401[facility] (9 sources)Mold ExtractDrug Emognol75-86-1518[facility] Medications Current Medications MedicationDrug Class(es)DatesSig (Normalized)Sig (Original)[id number] 200 actuat albuterol 0.09 mg/actuat metered dose inhaler (20 sources)beta2-Adrenergic AgonistStart: 14-30-7751imisfszku HFA 90 mcg/act inhaler Indications: Moderate asthma with acute exacerbation, unspecified w hether persistent (HCC) , Wheezing , Chest congestion INHALE 2 PUFFS IF NEEDED FOR WHEEZING OR SHORTNESS OF BREATH 18 g 1 08/24/2023 ActiveStart: 10-18-2022 take 2 puff(s) by inhalation every four hoursAlbuterol (Eqv-ProAir HFA) 2 puff(s), Inhalation, q4hr Shortness of breath or wheezing, Refill(s) 0Start Date: 10/18/22 Status: OrderedStart: 57-75-0933kewnieorg (2.5 MG/3ML) 0.083% nebulizer solution Take 2.5 mg by nebulization every 6 (six) hours ifneeded. 05/03/2022 ActiveStart: 42-46-0479OPSBUD HFA 90 mcg/actuation inhalerStart: 13-07-3888hfrj 2 puff(s) by inhalation every four hours as needed for wheezing albuterol (PROVENTIL HFA;VENTOLIN HFA) 108 (90 BASE) MCG/ACT inhaler Inhale 2 puffs into the lungs every 4 hours as needed for Wheezing or Shortness of Breath. 1 Inhaler 3 06/22/2013 Activetake 1 puff(s) by inhalation every four hours as neededAlbuterol Sulfate HFA 108 (90 Base) MCG/ACT 1 puff as needed Inhalation every 4 hrs Activetake 1 puff(s) by inhalation every four hours as neededAlbuterol Sulfate HFA 108 (90 Base) MCG/ACT 1 puff as needed Inhalation every 4 hrs Activealbuterol 0.833 mg/ml / ipratropium bromide 0.167 mg/ml inhalation solution (2 sources)Anticholinergic, beta2-Adrenergic Agonisttake 3 mL by inhalation every four hoursipratropium-albuterol (DUONEB) 0.5-2.5 (3) MG/3ML SOLN nebulizer solution Inhale 3 mLs into the lungs every 4 hours ActiveAlbuterol Sulfate (Proventil Hfa) 90 mcg/actuation Hfa Aerosol Inhaler (8 sources)Start: 40-88-2801Yipfvcfab Sulfate (Proventil Hfa) 90 mcg/actuation Hfa Aerosol Inhaler Active 90 MCG INHALATION As Directed March 31, 2018 12:00amStart: 94-37-6786Ctoeuftet Sulfate (Proventil Hfa) 90 mcg/actuation Hfa Aerosol Inhaler Active 90 MCG INHALATION As Directed March 31, 2018 1:00am ALPRAZolam 0.5 mg oral tablet (8 sources)BenzodiazepineStart: 88-43-0157odja 1 tablet by mouth three times daily as neededALPRAZolam (XANAX) 0.5 MG tablet Take 1 tablet by mouth 3 times daily as needed. 02/14/2024 ActiveARIPiprazole 30 mg oral tablet (7 sources)Atypical AntipsychoticStart: 31-83-1495asqg 1 tablet by mouth once dailyARIPiprazole (Abilify) 30 MG tablet Take 30 mg by mouth Daily 09/19/2023 Activedexamethasone 1 mg/ml / neomycin 3.5 mg/ml / polymyxin b 36200 unt/ml ophthalmic suspension (2 sources)Aminoglycoside Antibacterial, Polymyxin-class Antibacterial, CorticosteroidStart: 11-26-2021 End: 05-87-9249hadj 1 drop(s) into the eye(s) three times daily VYCCTDGT-OJQHLLMZG-YUKEXXGR 3.5 MG/ML-10,000 UNIT/ML-0.1% EYE DROPS Use 1 Drop in both eyes three times daily for 7 days. 5 mL 0 11/26/2021 12/03/2021 Active Comment on above:Use 1 Drop in both eyes three times daily for 7 days. dicyclomine hydrochloride 20 mg oral tablet (1 source)AnticholinergicStart: 42-02-1464jwcy 1 tablet by mouth every six hours as needed for paindicyclomine (BENTYL) 20 MG tablet Take 1 tablet by mouth every 6 hours as needed (abd pain/cramps) 20 tablet 09/17/2024 Activedocusate sodium 200 mg oral capsule (19 sources)Start: 23-80-1451Kezyfkds Sodium (COLACE PO) Take 200 mg by mouth 08/05/2023 Activeergocalciferol 1.25 mg oral capsule (13 sources)Provitamin D2 CompoundStart: 10-12-2023 End: 92-23-3513taem 1 capsule by mouth every weekergocalciferol (Drisdol) 1.25 MG (19202 UT) capsule Indications: Low vitamin D level Take 1 capsule(1.25 mg) by mouth 1 (one) time per week for 12 doses 4 capsule 2 10/12/2023 12/29/2023 ActiveStart: 06-08-2021 End: 93-51-9751xhob 1 capsule by mouth every week, then take 1 capsule by mouth every monthErgocalciferol (Vitamin D2) Discontinued 03688 UNIT PO As Directed June 08, 2021 12:00am November 18, 2021 2:29am take one cap every week for 8 weeks, then one cap every months after that.eszopiclone 3 mg oral tablet (20 sources)Start: 31-76-3055ezxyzqnnufa (Lunesta) 3 MG tablet Indications: Insomnia, unspecified type Take 1 tablet (3 mg) by mouth as needed at bedtime for sleep Take immediately before bedtime 30 tablet 05/31/2023 Activefluticasone / salmeterol (20 sources)Corticosteroid, beta2-Adrenergic AgonistStart: 51-12-5229rrux 2 puff(s) by inhalation at bedtimeAdvair Diskus 500 mcg-50 mcg inhalation powder See Instructions, Refill(s) 0, 2 puffs at bedtime Start Date: 10/18/22 Status: OrderedStart: 31-44-7518ugpx 1 puff(s) by inhalation in the morningfluticasone- salmeterol (Advair Diskus) 500-50 MCG/DOSE diskus inhaler Inhale 1 puff in the morning and 1 puff before bedtime. 12/28/2021 ActiveStart: 12-28-2021 End: 43-51-1625Zfhhaigbhqs Propion-Salmeterol (Advair Diskus) 500-50 mcg/dose blister with device Discontinued 1 INH INHALATION Twice daily 60 December 28, 2021 1:00am April 25, 2023 8:29amStart: 05-96-0387Qjckvbfyyah Propion- Salmeterol (Advair Diskus) 500-50 mcg/dose blister with device Active 1 INH INHA LATION Twice daily 60 December 28, 2021 12:00amStart: 06-26-2020 End: 91-70-4518Yloikaxhhey Propion-Salmeterol (Advair Diskus) 250-50 mcg/dose blister with device Discontinued 1 INH INHALATION Twice daily 60 June 25, 2020 11:00pm April 11, 2021 3:33pmStart: 06-26-2020 End: 25-50-7847Jzirumpzitk Propion-Salmeterol (Advair Diskus) 250-50 mcg/dose blister with device Discontinued 1 INH INHALATION Twice daily 60 June 26, 2020 12:00am April 11, 2021 4:33pmfolic acid 1 mg oral tablet (18 sources)Start: 45-82-0245slsbe acid (Folvite) 1 MG tablet Take 1 mg by mouth 08/15/2023 Activegabapentin 100 mg oral capsule (19 sources)Anti-epileptic AgentStart: 28-91-8806iimx 2 capsules by mouth twice dailyGabapentin Active 200 MG PO Twice daily April 25, 2023 1:00am FreeTextSi capsules Orally twicedaily; Note: Source Status: Pzqitxw05.29 chronic pain; Refills: 0; Qty: 120 capsules;Start: 04-11-2021 End: 48-08-7648bnwp 200 mg by mouth twice dailyGabapentin Discontinued 200 MG PO Twice daily April 11, 2021 1:00am November 18, 2021 2:29amStart: 03-03-2020 End: 27-23-5447xikx 2 capsules by mouth twice dailyGabapentin 100 MG 2 capsules Orally twice daily for 30 day(s) g89.29 chronic pain Feb, ActiveStart: 88-53-0122rajb 2 capsules by mouth once daily at bedtimeGabapentin 100 MG 2 capsules Orally qhs for 30 day(s) g89.29 chronic pain Feb, Active ipratropium bromide 0.2 mg/ml inhalation solution (7 sources)AnticholinergicStart: 81-63-9880fkstkzfmqse (Atrovent) 0.02 % nebulizer solution Take 0.5 mg by nebulization if needed. 05/27/2022 Active lamoTRIgine 200 mg oral tablet (20 sources)Mood Stabilizer, Anti-epileptic AgentStart: 22-80-4072xuxt 1 tablet by mouth once dailylamotrigine 200 mg Tab 200 mg = 1 tab(s), Oral, Daily Start Date: 08/05/23 Status: Ordered Repeat number: 1Start: 23-82-5259wown 1 tablet by mouth in the morninglamoTRIgine (LaMICtal) 150 MG tablet Indications: Bipolar II disorder (HCC) Take 1 tablet (150 mg) by mouth in the morning and 1 tablet (150 mg) before bedtime. 60 tablet 1 05/31/2023 ActiveStart: 18-87-4782vzms 1 tablet by mouth once dailyLamotrigine (Lamictal) 100 mg tablet Active 100 MG PO Daily April 25, 2023 1:00am FreeTextSi tablet Orally Once a day; Note: Source Status: Taking;Start: 77-25-8037lvmfjjehwvw 150 mg Tab Refills(s) 0 Start Date: 10/14/22 Status: OrderedStart: 04-11-2021 End: 35-01-5828ntci 200 mg by mouth once dailyLamotrigine Discontinued 200 MG PO Daily April 11, 2021 1:00am April 25, 2023 8:27amtake 1.5 tablets by mouth at bedtimelamoTRIgine (LAMICTAL) 200 MG tablet Take 1.5 tablets by mouth at bedtime Activetake 1 tablet by mouth every twenty-four hoursLaMICtal 100 MG 1 tablet Orally Once a day ActiveComment on above:Take 1 tablet by mouth once daily.3 ml liraglutide 6 mg/ml pen injector (17 sources)GLP-1 Receptor AgonistStart: 16-07-4323Lwtngpgfzvn (Victoza 2-[place]rence) 0.6 mg/0.1 mL (18 mg/3 mL) pen injector Active 1.8 MG SUBCUT Daily April 25, 2023 1:00am FreeTextSi.8 mg Subcutaneous Daily; Note: Source Status: Taking; Refills: 1; Qty: 1 Box; Provider: Varsha BaigaldStart: 05-25-2020 End: 11-68-4391Fkrqwbginuo (Victoza 2-[place]) 0.6 mg/0.1 mL (18 mg/3 mL) pen injector Discontinued 1.8 MG SUBCUT As Directed May 25, 2020 12:00am April 11, 2021 4:33pmlurasidone hydrochloride 60 mg oral tablet (20 sources)Atypical AntipsychoticStart: 76-50-5722wcxr 1 tablet by mouth once dailylurasidone 60 mg oral tablet 60 mg = 1 tab(s), Oral, Daily, Refills(s) 0 Start Date: 8/28/23 Status: OrderedStart: 05-17-2019 End: 39-11-0812uboe 1 tablet by mouth once dailyLurasidone (Latuda) 40 mg tablet Active 40 MG PO Daily May 17, 2019 12:00amtake 1 tablet by mouth every twenty-four hourslurasidone (LATUDA) 40 mg tablet Take by mouth q 24 HR. 0 ActiveComment on above:Take by mouth q 24 HR.24 hr metFORMIN hydrochloride 750 mg extended release oral tablet (20 sources)BiguanideStart: 98-29-8229raxv 2 tablets by mouth once daily at mealtimeMetformin Active 1500 MG PO Daily April 25, 2023 1:00am FreeTextSi tablets with food Orally Once a day; Note: Source Status: Taking; Provider: Chris Taylor ( )Start: 54-36-1860uqnCFDOZX (GLUCOPHAGE) 500 mg tablet Take 500 mg by mouth as directed. 0 03/31/2018 ActiveStart: 03-31-2018 End: 52-82-4282plup 1500 mg by mouth once dailyMetformin Discontinued 1500 MG PO Daily March 31, 2018 1:00am April 25, 2023 8:28amStart: 10-20-2015 End: 13-06-8125yyxn 2 tablets by mouth once daily at breakfast, then take 2 tablets by mouth once dailymetFORMIN ER (GLUCOPHAGE-XR) 750 MG XR tablet Indications: PCOS (polycystic ovarian syndrome) Take 2 tablets by mouth daily (with breakfast) 2 tabs daily 60 tablet 5 10/20/2015 09/17/2024 Discontinued (LIST CLEANUP)Comment on above:Take 500 mg by mouth as directed. methylPREDNISolone 4 mg oral tablet (7 sources)CorticosteroidStart: 08-01-2023 End: 80-69-9671Crxtvk 4 mg Tab = 1 packet(s), Oral, As Directed, as directed on package labeling, X 6 day(s), # 21tab(s), Refills(s) 0, Pharmacy: [facility]/pharmacy #[id number], 161, cm, 08/01/23 14:17:00 EDT, Height/Length Dosing, 107.3, kg, 08/01/23 14:17:00 EDT, Weight Dosing Start Date: 08/01/23 Stop Date: 08/07/23 Status: OrderedStart: 12-28-2021 End: 03-85-0746jazk 1 tablet by mouth onceMethylprednisolone (Medrol ([place])) 4 mg tablets,dose pack Discontinued 0 PO .COMPLEX December 28, 2021 1:00am April 25, 2023 8:30am orally per package directionsondansetron 4 mg disintegrating oral tablet (12 sources)Serotonin-3 Receptor AntagonistStart: 78-81-6463fdbi 1 tablet by mouth every six hours as needed for nauseaondansetron (ZOFRAN-ODT) 4 MG disintegrating tablet Take 1 tablet by mouth every 6 hours as needed for Nausea or Vomiting 21 tablet 09/17/2024 ActiveStart: 09-17-2024 End: mg, IntraVENous, ONCE, 1 dose, On Tue09/17/24 at 1230Start: 05-25-2020 End: 78-89-8847qkig 4 mg by mouth every eight hoursOndansetron Discontinued 4 MG PO Q8H 9 May 25, 2020 12:00am April 11, 2021 4:32pmStart: 09-28-2018 End: 83-78-2570vywq 1 tablet by mouth every eight hours as needed for nausea ondansetron (ZOFRAN) 4 MG tablet Take 1 tablet by mouth every 8 hours as needed for Nausea or Vomiting 12 tablet 09/28/2018 09/17/2024 Discontinued (LIST CLEANUP)phentermine hydrochloride 37.5 mg oral tablet (1 source)Sympathomimetic Amine AnorecticStart: 84-67-4505lduv 1 tablet by mouth once dailyphentermine 37.5 mg Tab 37.5 mg = 1 tab(s), Oral, Daily, # 30 tab(s), Refills(s) 0, Pharmacy: [id number], 161, cm, 10/18/22 14:05:00 EDT, Height/Length Dosing, 105.6, kg, 10/18/22 13:58:00EDT, Weight Dosing Start Date: 10/18/22 Status: OrderedpredniSONE 10 mg oral tablet (20 sources)Start: 14-42-1693phypyvZHIZ (Deltasone) 10 MG tablet TAKE 6 TABS X2 DAYS,5 X2 DAYS,4 X2 DAYS,3 X2 DAYS,2 X2 DAYS,1 TAB FOR 2 DAYS 03/29/2023 Active Start: 02-08-2022 End: 85-93-2870Brnkkjyvnq Discontinued 40 MG PO Daily 8 February 08, 2022 1:00am April 25, 2023 8:30am days 11-21 of therapyStart: 11-19-2021 End: 34-86-5297Ktxvftnlik Discontinued 0 PO .COMPLEX 36 November 19, 2021 12:00am December 27, 2021 4:16pm prednisone 5 mg: take 8 tablets (40 mg) on Day 1; 7 tablets (35 mg) on Day 2; then decrease by 1 tabletevery day until finishedStart: 05-06-2021 End: 67-42-0401lsuy 50 mg by mouth once dailyPrednisone Discontinued 50 MG PO Daily 4 May 06, 2021 12:00am June 07, 2021 12:36amStart: 04-11-2021 End: 59-28-9375fqpm 2 tablets by mouth once daily at mealtimepredniSONE (DELTASONE) 20 MG tablet TAKE 2 TABLETS BY MOUTH ONCE DAILY WITH FOOD OR MILK FOR 5 DAYS04/11/2021 09/17/2024 Discontinued (LIST CLEANUP)Start: 06-26-2020 End: 72-17-2989lfqu 40 mg by mouth once daily at mealtimePrednisone Discontinued 40 MG PO Daily April 11, 2021 1:00am May 06, 2021 8:20am administer with food or milkStart: 01-09-2020 End: 03-85-1815evgv 60 mg by mouth once dailyPrednisone Discontinued 60 MG PO Daily January 09, 2020 1:00am May 25, 2020 7:58pmStart: 03-31-2018 End: 13-97-7690gozn 60 mg by mouth once daily at mealtimePrednisone Discontinued 60 MG PO Daily 9 March 31, 2018 1:00am May 17, 2019 8:32pm administer with food or milksertraline 100 mg oral tablet (20 sources)Serotonin Reuptake InhibitorStart: 48-98-7754xxfz 2 tablets by mouth once dailysertraline (Zoloft) 100 MG tablet Indications: Anxiety Take 2 tablets (200 mg) by mouth Daily 60 tablet 1 05/31/2023 ActiveStart: 90-73-1226ywmj 1 tablet by mouth once dailysertraline 100 mg Tab 100 mg = 1 tab(s), Oral, Daily, Refills(s) 0, Depression Start Date: 03/29/23 Status: Ordered Repeat number: 1take 1.5 tablets by mouth once dailysertraline (ZOLOFT) 100 MG tablet Take 1.5 tablets by mouth daily Activetake 5.5 tablets by mouth once dailysertraline (ZOLOFT) 100 MG tablet 12/23 Orally Once a day ActiveSertraline HCl Active spironolactone 50 mg oral tablet (19 sources)Aldosterone AntagonistStart: 08-14-2018 End: 47-70-9942vddu 1 tablet by mouth once daily at mealtimeSpironolactone Active 50 MG PO Daily April 25, 2023 1:00am FreeTextSi tablet with food Orally Once a day; Note: Source Status: Taking; Provider: Chris Taylor ( )Venofer 20 mg/mL Soln-IV (13 sources)Start: 21-96-0129mvwu 300 mg intravenously every other weekVenofer 20 mg/mL Soln-IV See Instructions, 300 mg IV every 2 weeks x 2 doses, # 1 EA, Refills(s) 0 Start Date: 05/03/24 Status: Ordered Quantity: 1.0 Unit: EA Repeat number: 1 Indications: Iron deficiency anemia, unspecified;Start: 36-03-3890kscu 300 mg intravenously every other weekVenofer 20 mg/mL Soln-IV See Instructions, 300 mg IV every 2 weeks x 2 doses, # 1 EA, Refills(s) 0 Start Date: 05/03/24 Status: OrderedStart: 79-39-7403syit 500 mg intravenously every other week Venofer 20 mg/mL Soln-IV See Instructions, 500 mg IV every 2 weeks x 2 doses, # 25 mL, Refills(s) 0, 161, cm, 08/01/23 14:17:00 EDT, Height/Length Dosing, 107.3, kg, 08/01/23 14:17:00 EDT, Weight Dosing Start Date: 08/02/23 Status: OrderedVentolin HFA 90 mcg/inh Aerosol-Adpt (15 sources)Start: 53-60-6435vmfs 2 puff(s) by inhalation every four hours for wheezingVentolin HFA 90 mcg/inh Aerosol-Adpt 2 puff(s), Inhalation, q4hr for wheezing, 18 gram, Refill(s) 11 Start Date: 05/03/24 Status: Ordered Quantity: 18.0 Unit: g Repeat number: 12Start: 85-55-0813gped 2 puff(s) by inhalation every four hours for wheezingVentolin HFA 90 mcg/inh Aerosol-Adpt 2 puff(s), Inhalation, q4hr for wheezing, 18 gram, Refill(s) 11 Start Date: 05/03/24 Status: OrderedStart: 44-71-0810kmky 2 puff(s) by inhalation every four hours for wheezingVentolin HFA 90 mcg/inh Aerosol-Adpt 2 puff(s), Inhalation, q4hr for wheezing, 18 gram, Refill(s) 11, [facility]/pharmacy #[id number], 161, cm, 09/21/23 15:12:00 EDT, Height/Length Dosing, 108, kg, 09/21/23 15:12:00 EDT, Weight Dosing Start Date: 10/07/23 Status: OrderedStart: 67-15-7109hpqj 2 puff(s) by inhalation every four hours for wheezingVentolin HFA 90 mcg/inh Aerosol-Adpt 2 puff(s), Inhalation, q4hr for wheezing, 18 gram, Refill(s) 5, [facility]/pharmacy #[id number], 161, cm, 10/18/22 14:05:00 EDT, Height/Length Dosing, 105.6, kg, 10/18/22 13:58:00 EDT, Weight Dosing Start Date: 12/31/22 Status: OrderedStart: 44-07-1178oyvf 2 puff(s) by inhalation every four hours for wheezingVentolin HFA 90 mcg/inh Aerosol-Adpt 2 puff(s), Inhalation, q4hr for wheezing, 18 gram, Refill(s) 0, [id number], 161, cm, 10/18/22 14:05:00 EDT, Height/Length Dosing, 105.6, kg, 10/18/22 13:58:00 EDT, Weight Dosing Start Date: 10/18/22 Status: Ordered Completed/Discontinued Medications MedicationDrug Class(es)DatesSig (Normalized)Sig (Original)acetaminophen 325 mg / HYDROcodone bitartrate 5 mg oral tablet (8 sources)Opioid AgonistStart: 05-17-2019 End: 21-52-6038pcio 1 tablet by mouth four times dailyHydrocodone-Acetaminophen ([place]borne) 5-325 mg tablet Discontinued 1 TAB PO Four times daily 12 3 2019April 11, 2021 4:32pmamoxicillin 500 mg oral capsule (8 sources)Penicillin-class AntibacterialStart: 04-11-2021 End: 90-16-8525wxva 500 mg by mouth three times dailyAmoxicillin Discontinued 500 MG PO Three times daily April 11, 2021 1:00am May 0628:20am aspirin 81 mg delayed release oral tablet (8 sources)Platelet Aggregation Inhibitor, Nonsteroidal Anti-inflammatory Drug Start: 03-31-2018 End: 59-79-5506nubl 1 tablet by mouth once dailyAspirin (Aspir-81) 81 mg Tablet,Delayed Release (Dr/Ec) Discontinued 81 MG PO Daily March 31, 2018 1:00am May 17, 2019 8:32pmazithromycin 250 mg oral tablet (8 sources)Macrolide AntimicrobialStart: 06-26-2020 End: 24-30-4385sgbz 1 tablet by mouth once dailyAzithromycin (Zithromax) 250 mg tablet Discontinued 250 MG PO daily 4 4 June 26, 2020 12:00am April 11, 2021 4:32pm First dose given in EDciprofloxacin 2 mg/ml / hydrocortisone 10 mg/ml otic suspension (8 sources)Corticosteroid, Quinolone AntimicrobialStart: 04-11-2021 End: 49-24-5754Odwbicnetyuca-Hydrocortisone (Cipro Hc) 0.2-1 % drops,suspension Discontinued 3 DROPS EAR-LEFT Twice daily 42 7 April 11, 2021 1:00am May 06, 2021 8:20amcitalopram 20 mg oral tablet (2 sources)Serotonin Reuptake Inhibitor End: 78-93-0118pnsy 1 tablet by mouth once dailycitalopram (CELEXA) 20 MG tablet Take 1 tablet by mouth daily 09/17/2024 Discontinued (LIST CLEANUP) cyclobenzaprine hydrochloride 10 mg oral tablet (8 sources)Muscle RelaxantStart: 01-09-2020 End: 75-50-6098yzjz 10 mg by mouth three times dailyCyclobenzaprine Discontinued 10 MG PO Three times daily January 09, 2020 7:36pm April 11, 2021 4:32pmdoxycycline hyclate 100 mg oral tablet (8 sources)Tetracycline-class DrugStart: 05-25-2020 End: 95-22-3781ypad 100 mg by mouth twice dailyDoxycycline Hyclate Discontinued 100 MG PO Twice daily 10 12May 25, 2020 12:00am March 4:32pm2 ml fentaNYL 0.05 mg/ml injection (1 source)Opioid AgonistStart: 09-17-2024 End: 74-99-5619wqzb 1 dose by mouth every fond728 mcg, IntraVENous, ONCE, 1 dose, On Tue09/17/24 at 1230, If oral and IV narcotics ordered, use oral first and only use IV if oral is ineffective or cannot take oral. Do Not give oral and IV within1 hour of each other unless specifically ordered.Start: 09-17-2024 End: 51-04-4284mmtb 1 dose by mouth every bfzt370 mcg, IntraVENous, ONCE, 1 dose, On Tue09/17/24 at 1230, If oral and IV narcotics ordered, use oral first and only use IV if oral is ineffective or cannot take oral. Do Not give oral and IV within1 hour of each other unless specifically ordered.FLUoxetine 40 mg oral capsule (8 sources)Serotonin Reuptake InhibitorStart: 05-17-2019 End: 15-11-8831smmj 40 mg by mouth once dailyFluoxetine Discontinued 40 MG PO Daily May 17, 2019 12:00am April 11, 2021 4:33pmhydrOXYzine pamoate 50 mg oral capsule (2 sources)Antihistamine End: 90-12-2906ugzm 1 capsule by mouth every six hours as neededhydrOXYzine (VISTARIL) 50 MG capsule 1 capsule as needed Orally every 6 hrs 09/17/2024 Discontinued(LIST CLEANUP)iopamidol (ISOVUE-370) 76 % injection 75 mL (1 source)Start: 09-17-2024 End: 13-30-7861qvog 1 dose intravenously once75 mL, IntraVENous, IMG ONCE PRN, 1 dose, Starting on Tue09/17/24 at 1226, Until Tue09/17/24 at 1244, Other1 ml ketorolac tromethamine 30 mg/ml cartridge (1 source)Nonsteroidal Anti-inflammatory Drug, Cyclooxygenase InhibitorStart: 09-17-2024 End: mg, IntraVENous, ONCE, 1 dose, On Tue09/17/24 at 1100, Do not administer for more than 5 days.levalbuterol 0.21 mg/ml inhalation solution (8 sources)beta2-Adrenergic AgonistStart: 05-06-2021 End: 25-90-4827Zxxnykcjkjzt Hcl (Xopenex) 0.63 mg/3 mL Solution For Nebulization Discontinued 0.63 MG INHALATION As Directed May 06, 2021 12:00am April 25, 2023 8:30amlumateperone 42 mg oral capsule (4 sources)Start: 69-89-0188bjzo 1 capsule by mouth once daily in the morning Caplyta 42 mg oral capsule 42 mg = 1 cap(s), Oral, Daily, TAKE 1 CAPSULE BY MOUTH IN THE MORNING Start Date: 03/29/23 Status: Orderednaproxen 500 mg oral tablet (16 sources)Nonsteroidal Anti-inflammatory DrugStart: 05-17-2019 End: 11-85-8025wkkp 1 tablet by mouth twice dailyNaproxen (Naprosyn) 500 mg tablet Discontinued 500 MG PO Twice daily January 09, 2020 1:00am April 11, 2021 4:32pmQUEtiapine 100 mg oral tablet (8 sources)Atypical AntipsychoticStart: 04-11-2021 End: 30-28-6488Mhesfsspxk Discontinued MG TABLET April 11, 2021 1:00am May 06, 2021 8:20am Problems Active Problems Problem ClassificationProblemDateDocumented DateEpisodic/ChronicAbdominal pain (2 sources)Lower abdominal pain; Translations: [Lower abdominal pain, unspecified]Onset: 055799-01-4294FqmieuuyEpluuji disorders (17 sources)Panic disorder; Translations: [Panic disorder [episodic paroxysmal anxiety]]Onset: 07-17-2022 Resolved: 769159-96-2026ApppabrKxufds (20 sources)Asthma; Translations: [Unspecified asthma, uncomplicated]Onset: 47-33-5738SxjorakHaaidaj obstructive pulmonary disease and bronchiectasis (8 sources)Bronchitis; Translations: [Bronchitis, not specified as acute or chronic]98-22-3507RknhiicaDcstbjrgstdwp of surgical procedures or medical care (4 sources)History of subtotal thyroidectomy; Translations: [Postprocedural hypothyroidism]24-80-3047ZydvfigGhnwfzdqed and other anemia (1 source)Anemia; Translations: [Anemia, unspecified]Onset: 95-23-1701Ubtjmkqe Diseases of white blood cells (20 sources)Leukocytosis; Translations: [White blood cell count abnormal]Onset: 161544-96-8006NmkujgdVtlczqbrf of lipid metabolism (20 sources)Mixed hyperlipidemia; Translations: [Mixed hyperlipidemia]Onset: 73-64-9080OikyyobQ Codes: Natural/environment (1 source)Other and unspecified overexertion or strenuous movements or postures, initial encounter; Translations: [OTH AND UNS OVREXRT/STRN MVMT/POS INT]Onset: 36-04-0754EefksafoDqqmpg infertility (7 sources)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 anovulation; Translations: [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 anovulation]Onset: hronic Hypertension complicating ; childbirth and the puerperium (9 sources)Hypertension complicating ; Translations: [Unspecified maternal hypertension, third trimester]Onset: 09-15-2023 Resolved: 965884-43-8102RqshvjfZvdlmuzstnu; malpresentation (9 sources)Breech presentation; Translations: [Maternal care for breech presentation, not applicable or unspecified]Onset: 09-15-2023 Resolved: 592706-22-8835TrkrbxlxJciv disorders (20 sources)Bipolar disorder; Translations: [Bipolar disorder, unspecified] Onset: 11-12-2021 Resolved: 68-42-3487VqrcoleOnogtikwrzf deficiencies (7 sources)Vitamin D deficiency; Translations: [Vitamin D deficiency, unspecified]Onset: 007874-32-9432SiluyzrGluyq aftercare (1 source)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; Translations: [OTH USP CURRENT DRUG THERAPY]Onset: 25-95-8130QvzgixiwZrwvi complications of (9 sources)Complication of , childbirth and/or the puerperium; Translations: [Other specified related conditions, unspecified trimester]Onset: 09-15-2023 Resolved: 033473-87-0693WkvmnekeLjuzl complications of (9 sources)Urinary tract infection in ; Translations: [Unspecified infection of urinary tract in , third trimester]Onset: 09-15-2023 Resolved: 947586-37-3907WzllmygeGmrju endocrine disorders (7 sources)Polycystic ovary syndrome; Translations: [Polycystic ovarian syndrome]Onset: 856672-08-4483XylhblbEwlth endocrine disorders (2 sources)Hyperparathyroidism; Translations: [Other hyperparathyroidism] 84-29-4549UaijfpqFjucf female genital disorders (9 sources)Vaginal bleeding; Translations: [Abnormal uterine and vaginal bleeding, unspecified]Onset: 09-15-2023 Resolved: 034355-20-5796MkrmszcPsxnn gastrointestinal disorders (7 sources)Irritable bowel syndrome with diarrhea; Translations: [Irritable bowel syndrome with diarrhea]Onset: 760088-55-0469FtflwliOdabm gastrointestinal disorders (5 sources)History of bariatric surgical procedure; Translations: [Bariatric surgery status]Onset: 29-45-9342OgoquctfSkofz gastrointestinal disorders (2 sources)Swollen abdomen; Translations: [Abdominal distension (gaseous)]Onset: 91-52-7317DriaiuqbSrjap liver diseases (18 sources)Steatosis of liver; Translations: [Fatty (change of) liver, not elsewhere classified]Onset: 36-05-9437UbgxmrhSgekt lower respiratory disease (4 sources)Hypoxemia; Translations: [Hypoxemia]69-39-3461EmsxvuexYrvfy nervous system disorders (16 sources)Chronic pain; Translations: [Other chronic pain]Onset: 10-12-2023 Resolved: 040526-43-2560LwsttvxNppbs nervous system disorders (3 sources)Other chronic pain; Translations: [Chronic pain G89.29]Onset: 11-13-2020 Resolved: 46-75-3606AbgktxsMosnu non-traumatic joint disorders (3 sources)Pain in right knee; Translations: [PAIN IN RIGHT KNEE]Onset: 73-69-5110RlxqcviuJnbqe nutritional; endocrine; and metabolic disorders (13 sources)Body mass index 40+ - severely obese; Translations: [Body mass index (BMI) 45.0-49.9, adult]Onset: 721780-17-3747ThxrdtgRqlrl nutritional; endocrine; and metabolic disorders (6 sources)Insulin resistance; Translations: [Metabolic syndrome]ChronicOther nutritional; endocrine; and metabolic disorders (7 sources)Obesity; Translations: [Obesity, unspecified]Onset: 29-63-9453Xtthvbo Other nutritional; endocrine; and metabolic disorders (5 sources)Body mass index 30+ - obesity; Translations: [Obesity, unspecified] Onset: 97-90-8359ZqpaejpDsnof nutritional; endocrine; and metabolic disorders (6 sources)Obesity caused by energy qjjbavjvc23-33-0402EvvpsubPafmq nutritional; endocrine; and metabolic disorders (18 sources)Weight gain; Translations: [Abnormal weight gain]Onset: 09-17-2023 73-19-9674UaxqdjoiXreoi nutritional; endocrine; and metabolic disorders (1 source)Abnormal weight loss; Translations: [Abnormal weight loss]Onset: 90-91-1196InzgsiirAglmz nutritional; endocrine; and metabolic disorders (16 sources)Weight loss; Translations: [Abnormal weight loss]Onset: 09-17-2023 83-40-3236LgbjewduSdjxy and delivery including normal (20 sources)Delivery normal; Translations: [Encounter for full-term uncomplicated delivery]Onset: 09-15-2023 Resolved: 902852-80-9939QeogomzdFbyxo upper respiratory disease (7 sources)Seasonal allergic rhinitis; Translations: [Other seasonal allergic rhinitis]Onset: 569853-88-2279JcfslfwHznfdoyx codes; unclassified (1 source)Past history of procedure; Translations: [Other specified postprocedural states]Onset: 64-11-6917YobnovxnUqgscbqedvl failure; insufficiency; arrest (adult) (13 sources)Acute respiratory failure; Translations: [Acute respiratory failure with hypoxia]47-94-0184ZnsddfsyJsjyoraluxw; intervertebral disc disorders; other back problems (20 sources)Degeneration of lumbar intervertebral disc; Translations: [Other intervertebral disc degeneration, lumbar region]Onset: 11-13-2020 Resolved: 09-87-6211GgzlfvdErdgjfb and strains (1 source)Strain of other muscle(s) and tendon(s) at lower leg level, right leg, initial encounter; Translations: [STRAIN OTH MSC TEND LOW RT LEG INIT]Onset: 59-10-4080AoudhebkJukxdfb disorders (20 sources)Thyroid nodule; Translations: [Nontoxic single thyroid nodule]Onset: 152299-32-3561LfrxjuwYitdxlhzkwvm (17 sources)Patient encounter bhuozz13-23-0393 Past or Other Problems Problem ClassificationProblemDateDocumented DateEpisodic/ChronicBiliary tract disease (7 sources)Cholelithiasis without obstruction; Translations: [Calculus of gallbladder without cholecystitis without obstruction]Onset: 07-17-2022 72-05-4259PeusdukaBskznfifi and vision defects (16 sources)Diplopia; Translations: [Diplopia]Onset: 09-15-2023 Resolved: 72-72-6718KwajclhrUycgjxjihaxxz of surgical procedures or medical care (20 sources)Wound discharge; Translations: [Other complications of procedures, not elsewhere classified, initial encounter]Onset: 07-17-2022 Resolved: 906350-93-8666RuvkdavuLwhpdxqvvz and other anemia (20 sources)Iron deficiency anemia; Translations: [Other iron deficiency anemias]Onset: 461697-23-3148ZyestxjgYmysnlmk of mouth; excluding dental (20 sources)Lesion of salivary gland; Translations: [Disease of salivary gland, unspecified]Onset: 07-17-2022 Resolved: 041712-67-1989UhjftwjxK Codes: Fall (15 sources)Fall; Translations: [Unspecified fall, initial encounter]Onset: 09-15-2023 Resolved: 823847-65-6829OhjuxlpyBgzgd or threatened labor (9 sources)Finding of uterine contractions; Translations: [False labor, unspecified]Onset: 07-21-2018 Resolved: 350332-55-0127MhgiyenuHmrmmkbmti disorders (11 sources)Gastroesophageal reflux disease; Translations: [Gastro-esophageal reflux disease without esophagitis]Onset: 11-12-2021 Resolved: 548432-79-2501CbvddzkNgcny and electrolyte disorders (2 sources)Dehydration; Translations: [Dehydration]Onset: 348713-00-8820 EpisodicFracture of upper limb (15 sources)Fracture of radius AND ulna; Translations: [Unspecified fracture of unspecified forearm, initial encounter for closed fracture]Onset: 09-15-2023 Resolved: 376945-97-1576ZqsmqexeDgrkjnwrsekz complicating ; childbirth and the puerperium (2 sources)Mild pre-eclampsia; Translations: [Mild to moderate pre-eclampsia, unspecified trimester]Onset: 09-08-2015 Resolved: 337228-38-1947BxqwtnnyReqgack and fatigue (20 sources)Fatigue; Translations: [Other fatigue]Onset: EpisodicMood disorders (7 sources)Mood disordersOnset: Other acquired deformities (7 sources)Spondylolisthesis; Translations: [Spondylolisthesis, site unspecified]Onset: 343937-78-2465AkvxsbejIorvu acquired deformities (7 sources)Lumbar spondylolisthesis; Translations: [Spondylolisthesis, lumbar region]Onset: 303608-58-2184IfmyofslKvejy complications of ; puerperium affecting management of mother (2 sources)Continuing after intrauterine of twin fetus; Translations: [, twin with loss of one fetus]Onset: 03-20-2015 88-77-4918XumwmsqcZlfle complications of ; puerperium affecting management of mother (2 sources)Retained products of conception; Translations: [Retained placenta without hemorrhage]Onset: 09-08-2015 Resolved: 161879-74-3460VepnstpfXkkdk ear and sense organ disorders (15 sources)Otitis externa; Translations: [Unspecified otitis externa, unspecified ear]Onset: 09-15-2023 Resolved: 217426-42-7209RckyxcmTiors eye disorders (14 sources)Monocular esotropia, left eye; Translations: [Monocular esotropia] Onset: 11-12-2021 Resolved: 33-95-4975FuyrubkvNrfxb eye disorders (20 sources)Abducens nerve palsy; Translations: [Sixth [abducent] nerve palsy, left eye]Onset: 09-15-2023 Resolved: 960408-09-5620ReqehosyAbpcn female genital disorders (10 sources)History of gynecological disorder; Translations: [Personal history of other diseases of the female genital tract]Onset: 10-12-2023 Resolved: 455800-61-6309XxmcwmtcVibuy gastrointestinal disorders (17 sources)Abdominal bloating; Translations: [Abdominal distension (gaseous)] Onset: 717570-33-4800KwwatzbdEewju gastrointestinal disorders (17 sources)Dysphagia; Translations: [Dysphagia, unspecified]Onset: 09-17-2023 15-52-6340XnbjbzijWfdqg liver diseases (20 sources)Increased creatine kinase level; Translations: [Abnormal levels of other serum enzymes]Onset: 309416-38-6525OxmfnryuNywgw lower respiratory disease (14 sources)Hypoxemia; Translations: [Hypoxemia]Onset: 09-15-2023 Resolved: 579711-42-1599KxkcktmbZvkqa lower respiratory disease (11 sources)Viral respiratory infection; Translations: [Other specified respiratory disorders]Onset: 09-15-2023 Resolved: 539412-58-2077VoayhhviBldbo lower respiratory disease (20 sources)Dyspnea; Translations: [Shortness of breath]Onset: 08-03-2023 EpisodicOther nervous system disorders (15 sources)Postoperative pain ; Translations: [Other acute postprocedural pain] Onset: 09-15-2023 Resolved: 337704-77-9599AdkumiigIyonk nutritional; endocrine; and metabolic disorders (17 sources)Metabolic syndrome X; Translations: [Metabolic syndrome]Onset: 11-12-2021 Resolved: 227124-55-2285AcfqwidCujrk nutritional; endocrine; and metabolic disorders (15 sources)Morbid obesity; Translations: [Morbid (severe) obesity due to excess calories]Onset: 09-15-2023 Resolved: 386616-01-6953FxlxqyuGaqqx nutritional; endocrine; and metabolic disorders (4 sources)Weight increased; Translations: [Abnormal weight gain]Onset: 024576-87-7229WwnypttgCvmuk nutritional; endocrine; and metabolic disorders (1 source)Weight decreased; Translations: [Abnormal weight loss]Onset: 692058-69-1859CojzpfqyOubpp screening for suspected conditions (not mental disorders or infectious disease) (20 sources)Increased glucose level; Translations: [Other abnormal glucose] Onset: 313524-32-8046YavumfywUkdfeqpkvmrkrv and other problems of amniotic cavity (9 sources)Premature rupture of membranes; Translations: [Premature rupture of membranes, unspecified as to length of time between rupture and onset of labor, unspecified weeks of gestation]Onset: 08-02-2018 Resolved: 538507-60-4976SkzyeycaBfqzpelp codes; unclassified (20 sources)Obstructive sleep apnea syndrome; Translations: [Obstructive sleep apnea (adult) (pediatric)]Onset: 11-12-2021 Resolved: 24-77-7515FucrrviYqxoizso codes; unclassified (2 sources)Gestation period, 36 weeks; Translations: [36 weeks gestation of ]Onset: 09-08-2015 Resolved: 815724-68-3718VcutorffJecq and subcutaneous tissue infections (7 sources)Cellulitis of face; Translations: [Cellulitis of face]Onset: 031669-63-3231JtragznuZjfhtvgjqfw; intervertebral disc disorders; other back problems (20 sources)Radiculopathy, lumbar region; Translations: [Sciatica]Onset: 11-13-2020 Resolved: 53-65-7233JmyttcwsEaulevk disorders (3 sources)Mass of thyroid gland; Translations: [Disorder of thyroid, unspecified]Onset: 278534-31-8771HxlwcwhcAwamftu tract infections (15 sources)Urinary tract infectious disease; Translations: [Urinary tract infection, site not specified]Onset: 09-15-2023 Resolved: 063722-67-4904RqwspgujVlvgq infection (17 sources)Viral disease; Translations: [Viral infection, unspecified]Onset: 09-15-2023 Resolved: 427821-68-3236Oabzjjlp Results Test NameValueInterpretationReference RangeFacilityPAP [id number] 98-05-8472VEK AptimaNegativeInvalid Interpretation CodeNegativeAdena [facility] Center Comment on above:Order Comment: do not cancel may be coming from the office. [email or web address] 12/27/2024 06:03:03 ESTResult Comment: This nucleic acid amplification test detects fourteen high-risk HPV types (16,18,31,33,35,39,45,51,52,56,58,59,66,68) without differentiation. Performed at: [facility] [address] [place], [place] [id number] MD Cade Simms Performed at: =[facility] [place] [address] [place], [place] [id number] MD Cade SimmsPerformed By: #### [id number] #### [facility] [address] [place], [place] [address]XEL [id number] Interpretation CodeAdena Pike Medical CenterComment on above:Order Comment: do not cancel may be coming from the office. [id number] 12/27/2024 06:03:03 ESTResult Comment: TESTS RESULT FLAG UNITS REF RANGE LAB Clinician Provided Cytology Information Source.............Endocervix No. of containers..01 ThinPrep Vial DIAGNOSIS: 01 NEGATIVE FOR INTRAEPITHELIAL LESION OR MALIGNANCY. Specimen adequacy: 01 Satisfactory for evaluation. Endocervical and/or squamous metaplastic cells (endocervical component) are present. Performed by: Darshan Puente Repairer Controller Tester (ASCP) . 01 Note: Note 01 The Pap smear is a screening test designed to aid in the detection of premalignant and malignant conditions of the uterine cervix. It is not a diagnostic procedure and should not be used as the sole means of detecting cervical cancer. Both false-positive and false-negative reports do occur. Test Methodology: Note 01 This liquid based ThinPrep(R) pap test was interpreted using the Five Cool(R) Genius(TM) Cervical Algorithm whole slide imaging system. HPV Genotype Reflex Note 01 Criteria not met, HPV Genotype not performed. FLAG LEGEND: L-Low Normal,H-High Normal,LL-Alert Low,HH-Alert High <-Panic Low,>-Panic High,A-Abnormal,AA-Critical Abnormal Performed at: 01 [facility] [address] [id number] Demi Mohamud MD, Fqtswqnxj By: #### [id number] #### [facility] [address] [place], [place] [address]Ajohlg Medicine Office/Clinic Noteon [phone] Medicine Office/Clinic NoteFami Medicine Office/Clinic Note Chief Complaint well woman HPI Staff Pt is presenting for well woman, pap exam Woman check up Last pap: unknown Results of lap pap: normal [facility] was it done: [facility] Hx of Hysterectomy: no hx: # of pregnancies 2 abortions 0 live births 2 living children 3 menstrual cycle (normal,heavy,ect): polycystic ovarian Vaginal discharge, odor, itching: no Self breast exam at home? yes Last Mammogram:no Hx of breast, cervical or uterine cancer in the family: yes, ovarian and cervical cancer, grandma History of STD: no Do you want tested for STD today: no History of Present Illness pt presents today for well woman visit Review of Systems PHQ Score Initial Depression Screen Score: 0 SCORE General: Well developed, well nourished, in no acute distress Neck: Neck supple. No masses or palpable cervical nodes. Trachea midline. Thyroid without nodules, masses, tenderness, or enlargement Breast: No mass, nodule, discharge, or erythema bilaterally, and no axillary lymphadenopathy Lungs: Normal respiratory effort and clear to auscultation Cardio: Regular rate and rhythm, normal S1 and S2, no murmur, no rub Abdomen: Soft, non-distended, non-tender, normal bowel sounds x4 Gyno: normal external genitalia. Urethra no discharge. Vagina normal without lesions, no vaginal discharge. Cervix normal, without lesions. Uterus normal. No adnexal masses. Pap obtained Neurologic: Grossly normal Skin: [place], moist, no tenting Lymph Nodes: No cervical adenopathy, nodes normal Mental Status: Alert and oriented x3. Normal mood and affect Physical Exam Vitals & Measurements HR: 72(Peripheral) BP: 138/74 SpO2: 97% HT: 161 cm HT: 63 in WT: 114.75 kg WT: 252.98 lb BMI: 44.27 Assessment/Plan 1. Well woman exam (Z01.419: Encounter for gynecological examination (general) (routine) without abnormal findings) pt presents today for well woman visit. BSE discussed. pap obtained. mammogram ordered. Ordered: fluconazole, 150 mg = 1 tab(s), Oral, Once, take 1 tab on day one and 1 tabon day four, # 2 tab(s),Refills(s) 1, Pharmacy: [id number], 161, cm, 12/26/24 16:59:00 EST, Height/Length Dosing, 114.8, kg, 12/26/24 16:58:00 EST, Weight Dosing E&M of Est. Patient High 40-54 Min 89200 MA Mamm Screen w/CAD if perf and 3D Woo PAP [id number] w/ HPV and Genotype rflx 2. Cervical cancer screening (Z12.4: Encounter for screening for malignant neoplasm of cervix) pap obtained Ordered: fluconazole, 150 mg = 1 tab(s), Oral, Once, take 1 tab on day one and 1 tabon day four, # 2 tab(s),Refills(s) 1, Pharmacy: [facility] #[id number], 161, cm, 12/26/24 16:59:00 EST, Height/Length Dosing, 114.8, kg, 12/26/24 16:58:00 EST, Weight Dosing E&M of Est. Patient High 40-54 Min 81862 MA Mamm Screen w/CAD if perf and 3D Woo PAP [id number] w/ HPV and Genotype rflx 3. Breast cancer screening (Z12.39: Encounter for other screening for malignant neoplasm of breast) will order mammogram Ordered: fluconazole, 150 mg = 1 tab(s), Oral, Once, take 1 tab on day one and 1 tabon day four, # 2 tab(s),Refills(s) 1, Pharmacy: [facility] #[id number], 161, cm, 12/26/24 16:59:00 EST, Height/Length Dosing, 114.8, kg, 12/26/24 16:58:00 EST, Weight Dosing E&M of Est. Patient High 40-54 Min 15616 MA Mamm Screen w/CAD if perf and 3D Woo PAP 870925 w/ HPV and Genotype rflx 4. Vaginal yeast infection (B37.31: Acute candidiasis of vulva and vagina) thick white vaginal discharge noted on exam. will send diflucan Ordered: fluconazole, 150 mg = 1 tab(s), Oral, Once, take 1 tab on day one and 1 tabon day four, # 2 tab(s),Refills(s) 1, Pharmacy: [facility]/pharmacy #[id number], 161, cm, 12/26/24 16:59:00 EST, Height/Length Dosing, 114.8, kg, 12/26/24 16:58:00 EST, Weight Dosing E&M of Est. Patient High 40-54 Min 85843 Orders: albuterol, See Instructions, 18 EA, Refill(s) 0, INHALE 2 PUFFS BY MOUTH EVERY 4 HOURS NEEDED FOR WHEEZING, [id number], 161, cm, 09/04/24 16:11:00 EDT, Height/Length Dosing, 114, kg, 09/05/2515:11:00 EDT, Weight Dosing Follow-up No qualifying data available Problem List/Past Medical History Ongoing Asthma Bloating BMI 40.0-44.9, adult Breast cancer screening Cervical cancer screening Cyst of thyroid Difficulty swallowing Elevated creatine kinase Elevated glucose Elevated WBCs Encounter for weight management Enlarged thyroid gland Fatigue Generalized anxiety disorder History of thyroidectomy Iron deficiency anemia Low back pain Mild recurrent major depression Morbid obesity with BMI of 40.0-44.9, adult Nonsmoker Screening for hypercholesterolemia Shortness of breath Spondylosis Thyroid nodule Vaginal yeast infection Weight gain Weight loss Well woman exam Wellness examination Historical No qualifying data Procedure/Surgical History History of partial thyroidectomy (09/22/2023), Colonoscopy (09/05/2023), Esophagogastroduodenoscopy(09/05/2023), A (more content not included)...Normal [facility] CenterComment on above:Result Comment: Electronically Signed By: Cleo Hassan\.ariel\Date and Time Signed: 12/26/24 17:31 ESTPAP [id number] 99-90-6412Oultakwxnqvkl Body SiteENDOCERVIXNormalAdena Pike Medical CenterComment on above:Order Comment: do not cancel may be coming from the office. [email or web address] 12/27/2024 06:03:03 ESTPerformed By: #### [id number] #### [facility] [address], [place] [address]HAM w/ Auto Diffon [id number] Absolute0.1 E9/LNormal 0.0-0.2[facility] CenterComment on above:Performed By: #### [id number] #### [facility] [address], [place] [address]Cueyjwjsb/100 WBC (Bld)0.6 %Normal0.0-2.0A[facility] Medical CenterComment on above:Performed By: #### [id number] #### [facility] [address] [place], [place] [address]Hqq Absolute0.4 E9/LNormal0.0-0.5[facility] Comment on above:Performed By: #### [id number] #### [facility] [address] [place], [place] [address]Ixfplpuaypj/100 WBC (Bld)3.9 %Normal0.0-8.0A[facility] CenterComment on above:Performed By: #### [id number] #### [facility] [address] [place], [place] [address]Ajsdyugrfja distribution width (RBC) [Ratio]17.6 %High10.9-14.2 [facility] CenterComment on above:Performed By: #### [id number] #### [facility] [address] [place], [place] [address]Vbcmiueibw (Bld) [Volume fraction]36.6 %Uhbzxc66.0-46.0[facility] Medical CenterComment on above:Performed By: #### [id number] #### [facility] [address] [place], [place] [address]Kohwueafbd (Bld) [Mass/Vol]11.4 g/dLLow12.0-16.0[facility] CenterComment on above:Performed By: #### [id number] #### [facility] [address] [place] [address]Vkqex Absolute3.5 E9/LNormal1.0-4.0[facility] Comment on above:Performed By: #### [id number] #### [facility] [address] [place] [address]Jsfvhbvhdlv/100 WBC (Bld)34.5 %Cimmuw72.0-50.0[facility] CenterComment on above:Performed By: #### [id number] #### [facility] [address] [place] [address]HSQ (RBC) [Entitic mass]24.8 pgLow27.0-34.0[facility] CenterComment on above:Performed By: #### [id number] #### [facility] [address] [place], [place] [address]YDIT (RBC) [Mass/Vol]31.1 g/dLLow31.4-36.0[facility] CenterComment on above:Performed By: #### [id number] #### [facility] [address] [place], [place] [address]QAH (RBC) [Entitic vol]79.9 fLLow80.0-100.0[facility] CenterComment on above:Performed By: #### [id number] #### [facility] [address] [place], [place] [address]Cqav Absolute0.5 E9/LNormal0.2-1.0[facility] Comment on above:Performed By: #### [id number] #### [facility] [address] [place], [place] [address]Tvixbtujk/100 WBC (Bld)4.5 %Normal4.0-14.0[facility] CenterComment on above:Performed By: #### [id number] #### [facility] [address] [place], [place] [address]Klvkga Absolute5.7 E9/LNormal2.0-7.5FPremier [facility] Comment on above:Performed By: #### [id number] #### [facility] [address] [place], [place] [address]Jxirrq Auto56.5 %Lvsujt23.0-75.0[facility] Comment on above:Performed By: #### [id number] #### [facility] [address] [place], [place] [address]Vhwffdjs649.0 E9/RArfcdx383.0-500.0[facility] Comment on above:Performed By: #### [id number] #### [facility] [address] [place], [place] [address]Geplhqzs mean volume (Bld) [Entitic vol]8.6 fLNormal6.4-10.8 [facility] CenterComment on above:Performed By: #### [id number] #### [facility] [address] [place], [place] [address]DLN1.6 E12/LNormal4.3-5.9[facility] Medical CenterComment on above:Performed By: #### [id number] #### [facility] [address] [place] [address]PSI86.1 E9/LNormal4.0-11.0[facility] CenterComment on above:Performed By: #### [id number] #### [facility] [address] [place], [place] [address]JZMon [id number] [Mass/Vol]4.1 g/dLNormal3.3-5.0[facility] CenterComment on above:Performed By: #### [id number] #### [facility] [address] [place], [place] [address]Wvtpwfj/Globulin [Mass ratio]1.6 {ratio}Normal1.1-2.2FPremier Health Miami Valley Hospital NorthComment on above:Performed By: #### [id number] #### [facility] [address] [place], [place] [address]Yvd Phos72 Int._Unit/RSryspp71-28FyyruzAdena Pike Medical Center Comment on above:Performed By: #### [id number] #### [facility] [address] [place], [place] [address]BTF92 Int._Unit/LNormal6-46[facility] CenterComment on above:Performed By: #### [id number] #### [facility] [address] [place], [place] [address]Rxmsf gap [Moles/Vol]12 mmol/LNormal6-16[facility] CenterComment on above:Performed By: #### [id number] #### [facility] [address] [place], [place] [address]ZEY44 Int._Unit/LNormal5-43[facility] CenterComment on above:Performed By: #### [id number] #### [facility] [address] [place], [place] [address]Bxyt Total0.3 mg/dLNormal0.0-1.1FPremier Health [facility] Comment on above:Performed By: #### [id number] #### [facility] [address] [place], [place] [address]WZS/Creat Ratio16 No ZgkptPfhdfh46-40ZjnfewAdena Pike Medical CenterComment on above:Performed By: #### [id number] #### [facility] [address] [place], [place] [address]Doepvib [Mass/Vol]8.8 mg/dLLow8.9-11.1FPremier Health Miami Valley Hospital NorthComment on above:Performed By: #### [id number] #### [facility] [address] [place], [place] [address]Kuabhscs [Moles/Vol]105 mmol/YNepmot894-466CgwdovAdena Pike Medical CenterComment on above:Performed By: #### [id number] #### [facility] [address] [place], [place] [address]BL4 [Moles/Vol]24 mmol/CFpxddj86-65CaiwjvAdena Pike Medical Center Comment on above:Performed By: #### [id number] #### [facility] [address] [place], [place] [address]Ggqgtzeibp [Mass/Vol]1.0 mg/dLNormal0.5-1.3FPremier Health Miami Valley Hospital NorthComment on above:Performed By: #### [id number] #### [facility] [address] [place], [place] [address]Kgcidqqz (S) [Mass/Vol]2.5 g/dLNormal1.4-4.0[facility] Medical CenterComment on above:Performed By: #### [id number] #### [facility] [address] [place], [place] [address]Jevyuhk [Mass/Vol]123 mg/mUBfmpec58-041CfisemAdena Pike Medical CenterComment on above:Performed By: #### [id number] #### [facility] [address] [place], [place] [address]Kbdcdpvfd [Moles/Vol]4.6 mmol/LNormal3.5-5.3FPremier Health Miami Valley Hospital NorthComment on above:Performed By: #### [id number] #### [facility] [address] [place], [place] [address]Vaeaxjl [Mass/Vol]6.6 g/dLNormal6.0-7.8[facility] Medical CenterComment on above:Performed By: #### [id number] #### [facility] [address] [place], [place] [address]Xsgwpp [Moles/Vol]136 mmol/COymnjx456-329HkccqkAdena Pike Medical CenterComment on above:Performed By: #### [id number] #### [facility] [address] [place], [place] [address]Mrpu nitrogen [Mass/Vol]16 mg/dLNormal5-21[facility] Medical CenterComment on above:Performed By: #### [id number] #### [facility] [address] [place], [place] [address]Vunva Panelon 80-79-7769Ojdeeixcuiq [Mass/Vol]192 mg/dLNormal 120-200[facility] Medical CenterComment on above:Performed By: #### [id number] #### [facility] [address] [place], [place] [address]Hjjfrdcbcjc in HDL [Mass/Vol]47 mg/dLInvalid Interpretation CodeAdena Pike Medical CenterComment on above:Result Comment: '>= 60 LOW RISK' '<= 40 HIGH RISK'Performed By: #### [id number] #### [facility] [address] [place], [place] [address]Ifivnzjxgsr in LDL [Mass/Vol]131 mg/dLHigh<=129[facility] Medical CenterComment on above:Performed By: #### [id number] #### [facility] [address] [place], [place] [address]Ozmopssgobf in VLDL [Mass/Vol]22 mg/dLNormal7-40[facility] CenterComment on above:Performed By: #### [id number] #### [facility] [address] [place], [place] [address]Ufsobkalnkhx [Mass/Vol]112 mg/dLNormal<=149A[facility] Medical CenterComment on above:Performed By: #### [id number] #### [facility] [address] [place], [place] [address]LTGig 35-91-3358XJP Qn3.26 m[IU]/LNormal0.34-5.60[facility] CenterComment on above:Performed By: #### [id number] #### [facility] [address] [place], [place] [address]nELVvc 03-16-3316qXNV77 mL/min/1.73 k7Ndobmz>=59A[facility] Medical CenterComment on above:Performed By: #### [id number] #### [facility] [address] [place], [place] [address]Pzabbtboqp Visit Summaryon [id number] Visit Summary Ambulatory Visit Summary MORRO MALONEY :1985 Visit Date:11/28/2024 Ambulatory Visit Instructions Your Diagnosis Wellness examination History of thyroidectomy Iron deficiency anemia Screening for hypercholesterolemia Generalized anxiety disorder Mild recurrent major depression BMI 40.0-44.9, adult Class 3 severe obesity due to excess calories with body mass index (BMI) of 40.0 to 44.9 in adult Your Care Team Attending Physician - Cleo Hassan Primary Care Physician - Cleo Hassan This Is Your Medications List albuterol (Albuterol (Eqv-Ventolin HFA) 90 mcg/inh inhalation aerosol) escitalopram (escitalopram 20 mg Tab) lamotrigine (lamotrigine 200 mg Tab) Procedures Performed History of partial thyroidectomy (09/22/2023), Colonoscopy (09/05/2023), Esophagogastroduodenoscopy(09/05/2023), Appendectomy, delivery, Cholecystectomy, Gastric sleeve, Parotidectomy. Discharge Vitals Temperature (Temporal Artery) 36.2 ???C Heart Rate (Peripheral) 72 Respiratory Rate 20 Blood Pressure 126/86 Height 161.0 cm Height 63 in Weight 114.7 kg Weight 252.87 lb BMI 44.25 What to do next Scheduled Follow-Up Appointments Tuesday 4:20 PM EST With: Cleo Hassan Where: [address] [address]- Medications What How Much When Instructions Unchanged albuterol (Albuterol (Eqv-Ventolin HFA) 90 mcg/ inh inhalation aerosol) See instructions INHALE 2 PUFFS BY MOUTH EVERY 4 HOURS NEEDED FOR WHEEZING Unchanged escitalopram (escitalopram 20 mg Tab) 1 Tablets By Mouth Every day Unchanged lamotrigine (lamotrigine 200 mg Tab) 1 Tablets By Mouth Every day Allergies ARIPiprazole (Unknown) FLUoxetine (Unknown) Problems Ongoing - Any problem that you are currently receiving treatment for. Asthma Bloating BMI 40.0-44.9, adult Cyst of thyroid Difficulty swallowing Elevated creatine kinase Elevated glucose Elevated WBCs Encounter for weight management Enlarged thyroid gland Fatigue Generalized anxiety disorder History of thyroidectomy Iron deficiency anemia Low back pain Mild recurrent major depression Morbid obesity with BMI of 40.0-44.9, adult Nonsmoker Screening for hypercholesterolemia Shortness of breath Spondylosis Thyroid nodule Weight gain Weight loss Wellness examination Patient Survey You may receive a survey via text or e-mail asking about your office visit. Please share your experience with us by completing your survey. We appreciate your feedback and thank you for choosing us for your care. Patient Portal You may access all of your results and other medical record information on our secure patient portal. If you are not signed up for this yet, please contact [employer] at [phone] to get signed up today. Language Information Language assistance services are available as needed. [facility] Medicine Office/Clinic Noteon [phone] Medicine Office/Clinic NoteFaboston [facility]atorium Medicine Office/Clinic Note HPI Staff Pt is here for wellness and med refills Health Maintenance: Last Labs: April 27 2024 Refills needed: Lexapro, albuterol, lamotrigine She has been seeing kristin she was dx with bipolar he doesn't think this is the proper dx Last time seen was 2 months ago History of Present Illness pt presents today for wellness visit. Review of Systems PHQ Score Initial Depression Screen Score: 0 SCORE Physical Exam Vitals & Measurements T: 36.2 ???C(Temporal Artery) HR: 72(Peripheral) RR: 20 BP: 126/86 SpO2: 98% HT: 161.0 cm HT: 63 in WT: 252.87 lb WT: 114.7 kg BMI: 44.25 General: alert, no acute distress ENMT: oral mucosa moist, no pharyngeal erythema or exudate Cardiovascular: regular rate and rhythm, normal peripheral perfusion Respiratory: Lungs CTA, respirations non labored Extremities: no deformity, no trauma Neurological: oriented x 4, LOC appropriate for age, CN II-XII intact, motor strength equal & normal bilaterally, speech normal Assessment/Plan 1. Wellness examination (Z00.00: Encounter for general adult medical examination without abnormal findings) pt presents today for wellness visit. annual labs drawn in office today. pt will return for well woman visit. has had some pelvic pain and is way over due for pap test. Ordered: CBC w/ Auto Diff Comprehensive Metabolic Panel Est Preventative 40 to 64 years [address] Lipid Panel Thyroid Stimulating Hormone 2. History of thyroidectomy (E89.0: Postprocedural hypothyroidism) TSH ordered Ordered: CBC w/ Auto Diff Comprehensive Metabolic Panel Est Preventative 40 to 64 years [address] Lipid Panel Thyroid Stimulating Hormone 3. Iron deficiency anemia (D50.9: Iron deficiency anemia, unspecified) CBC ordered Ordered: CBC w/ Auto Diff Comprehensive Metabolic Panel Est Preventative 40 to 64 years [address] Lipid Panel Thyroid Stimulating Hormone 4. Screening for hypercholesterolemia (Z13.220: Encounter for screening for lipoid disorders) lipid panel ordered Ordered: CBC w/ Auto Diff Comprehensive Metabolic Panel Est Preventative 40 to 64 years [address] Lipid Panel Thyroid Stimulating Hormone 5. Generalized anxiety disorder (F41.1: Generalized anxiety disorder) pt has been seen by psych. feels she is not bipolar but has anxiety and depression. encouraged her to talk to me about buspar. will start buspar. Ordered: CBC w/ Auto Diff Comprehensive Metabolic Panel Est Preventative 40 to 64 years [address] Lipid Panel Thyroid Stimulating Hormone 6. 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 needs refills on meds Ordered: CBC w/ Auto Diff Comprehensive Metabolic Panel Est Preventative 40 to 64 years [address] Lipid Panel Thyroid Stimulating Hormone 7. BMI 40.0-44.9, adult (Z68.41: Body mass index [BMI] 40.0-44.9, adult) Ordered: CBC w/ Auto Diff Comprehensive Metabolic Panel Est Preventative 40 to 64 years [address] Lipid Panel Thyroid Stimulating Hormone 8. Class 3 severe obesity due to excess calories with body mass index (BMI) of 40.0 to 44.9 in adult (E66.813: Obesity, class 3) see above Ordered: CBC w/ Auto Diff Comprehensive Metabolic Panel Est Preventative 40 to 64 years [address]07 Lipid Panel Thyroid Stimulating Hormone Follow-up No qualifying data available Problem List/Past Medical History Ongoing Asthma Bloating BMI 40.0-44.9, adult Cyst of thyroid Difficulty swallowing Elevated creatine kinase Elevated glucose Elevated WBCs Encounter for weight management Enlarged thyroid gland Fatigue Generalized anxiety disorder History of thyroidectomy Iron deficiency anemia Low back pain Mild recurrent major depression Morbid obesity with BMI of 40.0-44.9, adult Nonsmoker Screening for hypercholesterolemia Shortness of breath Spondylosis Thyroid nodule Weight gain Weight loss Wellness examination Historical No qualifying data Procedure/Surgical History History of partial thyroidectomy (09/22/2023), Colonoscopy (09/05/2023), Esophagogastroduodenoscopy(09/05/2023), Appendectomy, delivery, Cholecystectomy, Gastric sleeve, Parotidectomy. Medications Albuterol (Eqv-Ventolin HFA) 90 mcg/inh inhalation aerosol, See Instructions escitalopram 20 mg Tab, 20 mg= 1 tab(s), Oral, Daily lamotrigine 200 mg Tab, 200 mg= 1 tab(s), Oral, Daily Allergies ARIPiprazole (Unknown) FLUoxetine (Unknown) Social History Alcohol - Denies Alcohol Use, 08/15/2023 Never., 04/30/2024 Substance Abuse - Denies Substance Abuse, 08/15/2023 Never., 04/30/2024 Tobacco Never (less than 100 in lifetime) Tobacco Use:. Never Smokeless Tobacco Use:. Household tobacco concerns: No. Yes, 11/28/2024 Family History Ulcerative colitis: Father and Grandparent. Immunizations Vaccine Date Status SARS-CoV-2 (COVID-19) mRNA BNT-162b2 vax 04/02/2020 Recorded SARS-CoV-2 (COVID-1 (more content not included)...[facility] HospitalComment on above:Result Comment: Electronically Signed By: Cleo Hassan\Date and Time Signed: 11/28/24 17:10 EDTBMPon [id number] gap [Moles/Vol]13 mmol/L9 - 17 mmol/LBon Secours Mercy HealthCalcium [Mass/Vol]9.2 mg/dL8.6 - 10.4 mg/dLBon Samaritan HospitalChloride [Moles/Vol]102 mmol/L98 - 107 mmol/LBon Samaritan HospitalCO2 [Moles/Vol]22 mmol/L20 - 31 mmol/LBon Samaritan HospitalCreatinine [Mass/Vol]1.0 mg/dLHigh0.5 - 0.9 mg/dLBon Samaritan HospitalEst, Glom Filt Rate73- PINFBon Samaritan HospitalComment on above: These results are not intended for use in patients <18 years of age. eGFR results are calculated without a race factor using the 2020 CKD-EPI equation. Careful clinical correlation is recommended, particularly when comparing to results calculated using previous equations. The CKD-EPI equation is less accurate in patients with extremes of muscle mass, extra-renal metabolism of creatine, excessive creatine ingestion, or following therapy that affects renal tubular secretion. Glucose [Mass/Vol]86 mg/dL70 - 99 mg/dLBon Samaritan HospitalInterpretation and review of laboratory resultsAbnormalBon Samaritan HospitalPotassium [Moles/Vol]4.9 mmol/L3.7 - 5.3 mmol/LBon Samaritan HospitalSodium [Moles/Vol] 137 mmol/L135 - 144 mmol/LBon Samaritan HospitalUrea nitrogen [Mass/Vol]14 mg/dL6 - 20 mg/dLBon Samaritan HospitalBasic Metabolic Profon [id number] gap [Moles/Vol]13 mmol/LNormal9-17[facility] Cleveland-FairhillComment on above: Performed By: #### BMP, LIVP, CDP, LIP, HCG #### [facility] [address] [place] [address] Director Payment: JOO De La Garzaalcium [Mass/Vol]9.2 mg/dLNormal8.6-10.4[facility]-FairhillComharbor oaks hospital on above:Performed By: #### BMP, LIVP, CDP, LIP, HCG #### [facility] [address] [place] [address] Director Payment: JOO De La Garzahloride [Moles/Vol]102 mmol/YMstfaq61-795RxpfuSelect Medical Specialty Hospital - Cleveland-FairhillComment on above:Performed By: #### BMP, LIVP, CDP, LIP, HCG #### [facility] [address] [place] [address] Director Payment: JOO De La GarzaO2 [Moles/Vol]22 mmol/QRiveky78-57JfeifSelect Medical Specialty Hospital - Cleveland-FairhillComment on above:Performed By: #### BMP, LIVP, CDP, LIP, HCG #### [facility] [address] [place] [phone] Director Payment: JOO De La Garzareatinine [Mass/Vol]1.0 mg/dLHigh0.5-0.9[facility]-FairhillComment on above:Performed By: #### BMP, LIVP, CDP, LIP, HCG #### [facility] [address] [place] [phone] Director Payment: Laith Stearns MDGFR/1.73 sq M.predicted among non-blacks MDRD (S/P/Bld) [Vol rate/Area]73 mL/min/{1.73_m2}Normal>60[facility] Comment on above:Result Comment: These results are not intended for use in patients <18 years of age. eGFR results are calculated without a race factor using the 2020 CKD-EPI equation. Careful clinical correlation is recommended, particularly when comparing to results calculated using previous equations. The CKD-EPI equation is less accurate in patients with extremes of muscle mass, extra-renal metabolism of creatine, excessive creatine ingestion, or following therapy that affects renal tubular secretion.Performed By: #### BMP, LIVP, CDP, LIP, HCG #### [facility] [address] [place] [address] Director Payment: Laith Stearns MDGlucose [Mass/Vol]86 mg/yFVtbuyj08-79Hfqrq [facility] HospitalComment on above:Performed By: #### BMP, LIVP, CDP, LIP, HCG #### [facility] [address] [place] [phone] Director Payment: AUDELIA De La Garzaotassium [Moles/Vol]4.9 mmol/LNormal3.7-5.3MAC[facility] Healthcare System GlenbeighComment on above:Performed By: #### BMP, LIVP, CDP, LIP, HCG #### [facility] [address] [place] [phone] Director Payment: JAROD De La Garzaodium [Moles/Vol]137 mmol/NSniqrp813-383CyowdSelect Medical Specialty Hospital - Cleveland-FairhillComment on above:Performed By: #### BMP, LIVP, CDP, LIP, HCG #### [facility] [address] [place] [address] Director Payment: Laith Stearns MDUrea nitrogen [Mass/Vol]14 mg/dLNormal6-20[facility]-FairhillComment on above:Performed By: #### BMP, LIVP, CDP, LIP, HCG #### [facility] [address] [place] [phone] Director Payment: Laith Stearns [facility]VABC with Auto Differentialon [id number] (Bld) [#/Vol]0.07 10*3/uLBon Secours Mercy HealthBasophils/100 WBC (Bld)1 %0 - 2 %[facility] HealthEosinophils (Bld) [#/Vol]0.42 10*3/uLHighBon Secours Mercy HealthEosinophils/100 WBC (Bld)5 %0 - 5 %[facility] Erythrocyte distribution width (RBC) [Ratio]16.5 %High12.1 - 15.2 %[facility] HealthHematocrit (Bld) [Volume fraction]36.4 %36.0 - 46.0 %[facility] HealthHemoglobin (Bld) [Mass/Vol]11.3 g/dLLow12.0 - 16.0 g/dLBon Secours Mercy HealthImmature granulocytes (Bld) [#/Vol]0.01 10*3/uLBon Secours Mercy HealthImmature granulocytes/100 WBC (Bld)0 %0 - 5 %[facility] Interpretation and review of laboratory resultsAbnormalBon [facility]aritan Hospital Lymphocytes/100 WBC (Bld)39 %15 - 40 %[facility] CenterLymphocytes/100 WBC (Bld)3.33 %Bon [facility] HospitalH (RBC) [Entitic mass]24.9 pgLow26.0 - 34.0 pgBon [facility] HospitalHC (RBC) [Mass/Vol]31 g/dL31.0 - 37.0 g/dLBon SecMemorial Health System Marietta Memorial HospitalV (RBC) [Entitic vol]80.4 fL80.0 - 100.0 fLSpotsylvania Regional Medical CenterMonocytes/100 WBC (Bld)8 %4 - 8 %[facility] Monocytes/100 WBC (Bld)0.71 %[facility] CenterNeutrophils/100 WBC (Bld)47 %47 - 75 %[facility] CenterPlatelet mean volume (Bld) [Entitic vol]10.1 fL6.0 - 12.0 fLBon Samaritan HospitalPlatelets (Bld) [#/Vol]337 10*3/uLBon Samaritan HospitalRBC (Bld) [#/Vol]4.53 10*6/uL4.00 - 5.20 m/uLSpotsylvania Regional Medical CenterSegmented neutrophils/100 WBC (Bld)4.11 %[facility] CenterWBC other (Bld) [#/Vol]8.7Bon [facility] CenterCBC with Diffon [id number]. Basophil0.07 k/uLNormal0.00-0.20[facility] Comment on above:Performed By: #### BMP, LIVP, CDP, LIP, HCG #### [facility] [address] [place] [address] Director Payment: Troy De La Garza.Imm.Granulocyte0.01 k/uLNormal0.00-0.30Mer[facility] Chato HospitalComment on above:Performed By: #### BMP, LIVP, CDP, LIP, HCG #### [facility] [address] [place] [address] Director Payment: Troy De La Garza.Neutrophil (Seg)4.11 k/uLNormal2.5-7.0[facility]-FairhillComment on above:Performed By: #### BMP, LIVP, CDP, LIP, HCG #### [facility] [address] [place] [address] Director Payment: Laith Stearns MDBasophils/100 WBC (Bld)1 %Normal0-2[facility] GlenbeighComment on above:Performed By: #### BMP, LIVP, CDP, LIP, HCG #### [facility] [address] [place] [address] Director Payment: Laith Stearns MDEosinophils (Bld) [#/Vol]0.42 10*3/uLHigh0.00-0.40 [facility]-FairhillComment on above:Performed By: #### BMP, LIVP, CDP, LIP, HCG #### [facility] [address] [place] [address] Director Payment: Laith Stearns MDEosinophils/100 WBC (Bld)5 %Normal0-5[facility]-FairhillComment on above:Performed By: #### BMP, LIVP, CDP, LIP, HCG #### [facility] [address] [place] [address] Director Payment: Laith Stearns MDErythrocyte distribution width (RBC) [Ratio]16.5 % High12.1-15.2[facility] GlenbeighComharbor oaks hospital on above:Performed By: #### BMP, LIVP, CDP, LIP, HCG #### [facility] [address] [place] [address] Director Payment: Laith Stearns MDHematocrit (Bld) [Volume fraction]36.4 %Normal 36.0-46.0[facility] Cleveland-FairhillComment on above:Performed By: #### BMP, LIVP, CDP, LIP, HCG #### [facility] [address] [place] [address] Director Payment: Laith Stearns MDHemoglobin (Bld) [Mass/Vol]11.3 g/dLLow12.0-16.0 [facility]-FairhillComment on above:Performed By: #### BMP, LIVP, CDP, LIP, HCG #### [facility] [address] [place] [address] Director Payment: Laith Stearns MDImmature granulocytes/100 WBC (Bld)0 %Normal0-5 [facility]-FairhillComment on above:Performed By: #### BMP, LIVP, CDP, LIP, HCG #### [facility] [address] [place], [place] [address] Director Payment: Laith Stearns MDLymphocytes (Bld) [#/Vol]3.33 10*3/uLNormal 1.00-4.80[facility] Cleveland-FairhillComment on above:Performed By: #### BMP, LIVP, CDP, LIP, HCG #### [facility] [address] [place] [address] Director Payment: Laith Stearns MDLymphocytes/100 WBC (Bld)39 %Sylxmg80-73DybtwHolmes County Joel Pomerene Memorial Hospitalment on above:Performed By: #### BMP, LIVP, CDP, LIP, HCG #### [facility] [address] [place] [address] Director Payment: JUAN De La GarzaCH (RBC) [Entitic mass]24.9 pgLow26.0-34.0[facility]-FairhillComment on above:Performed By: #### BMP, LIVP, CDP, LIP, HCG #### [facility] [address] [place] [phone] Director Payment: JUAN De La GarzaCHC (RBC) [Mass/Vol]31.0 g/hKTkjftg51.0-37.0[facility]-FairhillComment on above:Performed By: #### BMP, LIVP, CDP, LIP, HCG #### [facility] [address] [place] [phone] Director Payment: JUAN De La GarzaCV (RBC) [Entitic vol]80.4 uTYusatk55.0-100.0 [facility]-FairhillComment on above:Performed By: #### BMP, LIVP, CDP, LIP, HCG #### [facility] [address] [place] [address] Director Payment: JUAN De La Garzaonocytes (Bld) [#/Vol]0.71 10*3/uLNormal0.00-1.00 [facility]-FairhillComment on above:Performed By: #### BMP, LIVP, CDP, LIP, HCG #### [facility] [address] [place] [address] Director Payment: JUAN De La Garzaonocytes/100 WBC (Bld)8 %Normal4-8[facility]-FairhillComment on above:Performed By: #### BMP, LIVP, CDP, LIP, HCG #### [facility] [address] [place] [address] Director Payment: Laith Stearns MDNeutrophil (Seg)47 %Yudhdq08-57JcfjiSelect Medical Specialty Hospital - Cleveland-FairhillComment on above:Performed By: #### BMP, LIVP, CDP, LIP, HCG #### [facility] [address] [place] [address] Director Payment: AUDELIA De La Garzalatelet mean volume (Bld) [Entitic vol]10.1 fL Normal6.0-12.0[facility]-FairhillComment on above:Performed By: #### BMP, LIVP, CDP, LIP, HCG #### [facility] [address] [place] [address] Director Payment: Ever De La Garza ([facility]) [#/Vol]337 10*3/rMNfdbpx529-803 [facility]-FairhillComment on above:Performed By: #### BMP, LIVP, CDP, LIP, HCG #### [facility] [address] [place] [address] Director Payment: MEENAKSHI De La Garza ([facility]) [#/Vol]4.53 10*6/uLNormal4.00-5.20[facility] [place]-FairhillComment on above:Performed By: #### BMP, LIVP, CDP, LIP, HCG #### [facility] [address] [place] [address] Director Payment: KIET De La Garza ([facility]) [#/Vol]8.7 10*3/uLNormal3.5-11.0[facility]-FairhillComment on above:Performed By: #### BMP, LIVP, CDP, LIP, HCG #### [facility] [address] [place] [address] Director Payment: KAYLI De La Garza ABDOMEN PELVIS W IV CONTRASTon [id number] ABDOMEN PELVIS W IV CONTRASTEXAMINATION: CT ABDOMEN PELVIS W IV CONTRAST, 09/17/2024 12:43 PM EDT HISTORY: abd pain x1 week worsening, lower abd > generalized, some flank discomfort, no trauma, (-) preg, no grossly abn labs COMPARISON: None. TECHNIQUE: CT scan of the abdomen and pelvis was performed IV contrast. CT dose reduction technique was used, including Automated Exposure Control. FINDINGS: CT scan of the abdomen: Lung bases are clear. There is fatty infiltration of the liver. No masses or biliary ductal dilatation is seen. There has been a cholecystectomy. The spleen, pancreas, adrenal glands, kidneys normal. There is a gastric sleeve procedure. Proximal bowel is normal. CT scan pelvis: Distal ureters, bladder, uterus and adnexa unremarkable. Bowel is normal. There has been an appendectomy. No free fluid or inflammatory changes seen. There are degenerative changes lumbosacral spine with a pars defect at L4 and grade 1 spondylolisthesis L4 on L5 with vacuum disc phenomena. IMPRESSION: 1. No acute process identified. 2. Mild fatty liver. 3. Prior cholecystectomy, appendectomy. 4. Pars defect L4 with grade 1 spondylolisthesis L4 on L5. Interpreted by: Yovani Oliveira MD Signed by: Yovani Oliveira MD 09/17/24 Final resultNormProMedica Defiance Regional Hospital Abdomen and Pelvis W contrast Portia 09-17-2024 1. No acute process identified. 2. Mild fatty liver. 3. Prior cholecystectomy, appendectomy. 4. Pars defect L4 with grade 1 spondylolisthesis L4 on L5. [facility] RIS CONSOLIDATEDEXAMINATION: CT ABDOMEN PELVIS W IV CONTRAST, 09/17/2024 12:43 PM EDT HISTORY: abd pain x1 week worsening, lower abd > generalized, some flank discomfort, no trauma, (-) preg, no grossly abn labs COMPARISON: None. TECHNIQUE: CT scan of the abdomen and pelvis was performed IV contrast. CT dose reduction technique was used, including Automated Exposure Control. FINDINGS: CT scan of the abdomen: Lung bases are clear. There is fatty infiltration of the liver. No masses or biliary ductal dilatation is seen. There has been a cholecystectomy. The spleen, pancreas, adrenal glands, kidneys normal. There is a gastric sleeve procedure. Proximal bowel is normal. CT scan pelvis: Distal ureters, bladder, uterus and adnexa unremarkable. Bowel is normal. There has been an appendectomy. No free fluid or inflammatory changes seen. There are degenerative changes lumbosacral spine with a pars defect at L4 and grade 1 spondylolisthesis L4 on L5 with vacuum disc phenomena. [facility] CONSOLIDATEDAlfoYovani gutierrez MD - 09/17/2024 EXAMINATION: CT ABDOMEN PELVIS W IV CONTRAST, 09/17/2024 12:43 PM EDT HISTORY: abd pain x1 week worsening, lower abd > generalized, some flank discomfort, no trauma, (-) preg, no grossly abn labs COMPARISON: None. TECHNIQUE: CT scan of the abdomen and pelvis was performed IV contrast. CT dose reduction technique was used, including Automated Exposure Control. FINDINGS: CT scan of the abdomen: Lung bases are clear. There is fatty infiltration of the liver. No masses or biliary ductal dilatation is seen. There has been a cholecystectomy. The spleen, pancreas, adrenal glands, kidneys normal. There is a gastric sleeve procedure. Proximal bowel is normal. CT scan pelvis: Distal ureters, bladder, uterus and adnexa unremarkable. Bowel is normal. There has been an appendectomy. No free fluid or inflammatory changes seen. There are degenerative changes lumbosacral spine with a pars defect at L4 and grade 1 spondylolisthesis L4 on L5 with vacuum disc phenomena. IMPRESSION: 1. No acute process identified. 2. Mild fatty liver. 3. Prior cholecystectomy, appendectomy. 4. Pars defect L4 with grade 1 spondylolisthesis L4 on L5. [facility] HospitalsSpot [facility] Sciences [facility] HospitalRadiology Study observation (narrative)[facility]alsUn[facility] Abdomen and Pelvis W contrast IVOrdered By: Yovani Oliveira on 09-17-2024 [facility] Work Phone: HCD Qualitative, Serumon [id number] ( test) QlNegativeNEGATIVESpotsylvania Regional Medical CenterComment on above:Specimens with hCG levels near the threshold of the test (25 mIU/mL) may give a negative or indeterminate result. In such cases, another test should be performed with a new specimen in 48-72 hours. If early is suspected clinically in this setting, correlation with quantitative serum b-hCG level is suggested. [employer] has confirmed the use of plasma for this test. This has not been cleared or approved by the U.S. Food and Drug Administration. The FDA has determined that such clearance is not necessary. [facility] HospitalsUnisfair [facility] HospitalHCG Screen, Bloodon [id number] Screen, BloodNegative NormalNEGMercy North Sunflower Medical CenterComharbor oaks hospital on above:Result Comment: Specimens with hCG levels near the threshold of the test (25 mIU/mL) may give a negative or indeterminate result. In such cases, another test should be performed with a new specimen in 48-72 hours. If early is suspected clinically in this setting, correlation with quantitative serum b-hCG level is suggested. [employer] has confirmed the use of plasma for this test. This has not been cleared or approved by the U.S. Food and Drug Administration. The FDA has determined that such clearance is not necessary.Performed By: #### BMP, LIVP, CDP, LIP, HCG #### [facility] [address] [place] [address] Director Payment: Laith Stearns MDHepatic Function Panelon [id number] [Mass/Vol]4.1 g/dL3.5 - 5.2 g/dLBon SecAstria Toppenish Hospitaly HealthAlbumin/Globulin [Mass ratio]1.6 {ratio}1.0 - 2.5Bon [facility] Hospitaly HealthALP [Catalytic activity/Vol]97 U/L35 - 104 U/LBon Secours [facility] Hospitaly HealthALT [Catalytic activity/Vol]11 U/L5 - 33 U/LBon Secours [facility] Hospitaly HealthAST [Catalytic activity/Vol]19 U/LNINF - 32 U/LBon Secours [facility] Hospitaly HealthBilirubin [Mass/Vol]0.6 mg/dL0.3 - 1.2 mg/dLBon SecAstria Toppenish Hospitaly HealthBilirubin.direct [Mass/Vol]0.2 mg/dLNINF - 0.3 mg/dLBon SecAstria Toppenish Hospitaly HealthBilirubin.indirect [Mass/Vol]0.4 mg/dL0.0 - 1.0 mg/dLBon Secours Delaware [facility] Hospitaly HealthGlobulin (S) [Mass/Vol]2.6 g/dL1.5 - 3.8 g/dLBon SecHardtner Medical Center HealthProtein [Mass/Vol]6.7 g/dL6.4 - 8.3 g/dLBon Secours [facility] HealthLipaseon [id number] [Catalytic activity/Vol]48 U/L13 - 60 U/LBon Samaritan HospitalLipase [Catalytic activity/Vol]48 U/FZfwgqj91-84OjjvvSelect Medical Specialty Hospital - [place] Comment on above:Performed By: #### BMP, LIVP, CDP, LIP, HCG #### [facility] [address] [place] [address] Director Payment: Laith Stearns MDLiver Profileon [id number] [Mass/Vol]4.1 g/dLNormal3.5-5.2MACMC Healthcare System GlenbeighComment on above:Performed By: #### BMP, LIVP, CDP, LIP, HCG #### [facility] [address] [place] [address] Director Payment: Laith Stearns MDAlbumin/Glob Ratio1.7Jqnmkf6.0-2.5[facility]-FairhillComharbor oaks hospital on above:Performed By: #### BMP, LIVP, CDP, LIP, HCG #### [facility] [address] [place] [address] Director Payment: David De La Garzaline Phos97 U/IKwonbt35-209YhgzfWyandot Memorial Hospital on above:Performed By: #### BMP, LIVP, CDP, LIP, HCG #### [facility] [address] [place] [address] Director Payment: Laith Stearns MDALT [Catalytic activity/Vol]11 U/LNormal5-33[facility] on above:Performed By: #### BMP, LIVP, CDP, LIP, HCG #### [facility] [address] [place] [address] Director Payment: Laith Stearns MDAST [Catalytic activity/Vol]19 U/LNormal<32[facility] on above:Performed By: #### BMP, LIVP, CDP, LIP, HCG #### [facility] [address] [place] [address] Director Payment: Laith Stearns MDBilirubin [Mass/Vol]0.6 mg/dLNormal0.3-1.2MACMC Healthcare System GlenbeighComharbor oaks hospital on above:Performed By: #### BMP, LIVP, CDP, LIP, HCG #### [facility] [address] [place] [phone] Director Payment: Arnold De La Garzairubin, Indirect0.4 mg/dLNormal0.0-1.0[facility]-FairhillComment on above:Performed By: #### BMP, LIVP, CDP, LIP, HCG #### [facility] [address] [place] [address] Director Payment: Laith Stearns MDBilirubin.indirect [Mass/Vol]0.2 mg/dLNormal<0.3 [facility]-FairhillComment on above:Performed By: #### BMP, LIVP, CDP, LIP, HCG #### [facility] [address] [place] [address] Director Payment: Laith Stearns MDGlobulin (S) [Mass/Vol]2.6 g/dLNormal1.5-3.8[facility]-FairhillComharbor oaks hospital on above:Performed By: #### BMP, LIVP, CDP, LIP, HCG #### [facility] [address] [place] [address] Director Payment: AUDELIA De La Garzarotein [Mass/Vol]6.7 g/dLNormal6.4-8.3MACMC Healthcare System GlenbeighComment on above:Performed By: #### BMP, LIVP, CDP, LIP, HCG #### [facility] [address] [place] [phone] Director Payment: Laith Stearns MDNo Panel Informationon [id number] SecPremier Health Upper Valley Medical CenterUrinalysison [id number] Ql (U)NegativeNEGATIVEBon Secours [facility] HealthClarity (U)ClearClearBon Secours [facility] HealthColor (U)YellowYellowBon Secours Fisher[facility] HealthCommentBon [facility] HealthGlucose Test strip (U) [Mass/Vol]NegativeNEGATIVE mg/dLBon Secours Norwalk Memorial HospitalHemoglobin Auto test strip Ql (U)NegativeNEGATIVEBon SecHardtner Medical Center HealthInterpretation and review of laboratory resultsAbnormalBon Secours [facility] HealthKetones (U) [Mass/Vol] NegativeNEGATIVE mg/dLBon Secours Norwalk Memorial HospitalLeukocyte esterase Test strip Ql (U)NegativeNEGATIVEBon Samaritan HospitalNitrite Ql (U)NegativeNEGATIVEBon Samaritan HospitalpH (U)7 [pH]5.0 - 8.0Bon [facility] HealthProtein (U) [Mass/Vol]TRACEAbnormalNEGATIVE mg/dLBon Samaritan HospitalSpecific gravity (U) [Rel density]1.0151.005 - 1.030Bon Samaritan HospitalUrobilinogen Qn (U) Normal0.0 - 1.0 EU/dLBon Samaritan HospitalBon Samaritan HospitalUrinalysis, Routineon [id number], SemiQt,UrNegativeNormalMercy Health St. [facility] Comment on above:Performed By: #### UA #### [facility] [address] [place], [place] [phone] Director Payment: Iliana De La Garza, UrineNegativeRegional Medical CenterComment on above:Performed By: #### UA #### [facility] [address] [place] [address] Director Payment: JOO De La Garzalarity ()ClearMercy Hospital St. John'SalCRegency Hospital [facility] Comment on above:Performed By: #### UA #### [facility] [address] [place], [place] [phone] Director Payment: JOO De La Garzaolor (U)YellowNoSt. Elizabeth Hospital Comment on above:Performed By: #### UA #### [facility] [address] [place] [address] Director Payment: JOO De La GarzaommentNoSelect Medical Specialty Hospital - Southeast OhioComment on above:Performed By: #### UA #### [facility] [address] [place] [address] Director Payment: Laith Stearns MDGlucose Ql (U)NegativeNormalMercy Health St. Joseph Warren HospitalComment on above:Performed By: #### UA #### [facility] [address] [place] [address] Director Payment: Laith Stearns MDKetones Ql (U)NegativeNormalNEGSelect Medical Specialty Hospital - Cleveland-FairhillComment on above:Performed By: #### UA #### [facility] [address] [place], [place] [phone] Director Payment: Laith Stearns MDLeukocyte esterase Test strip Ql (U)NegativeNormal NEGSelect Medical Specialty Hospital - Cleveland-FairhillComment on above:Performed By: #### UA #### [facility] [address] [place] [address] Director Payment: Danilo De La Garzatrite,UrNegativeNormSamaritan Hospital Comment on above:Performed By: #### UA #### [facility] [address] [place] [address] Director Payment: AUDELIA De La Garza,Ur7.4Xssehc7.0-8.0[facility]-FairhillComment on above:Performed By: #### UA #### [facility] [address] [place] [phone] Director Payment: Kenroy De La Garza Ql (U)TRACEAbnormalNEGSelect Medical Specialty Hospital - Cleveland-FairhillComment on above:Performed By: #### UA #### [facility] [address] [place] [phone] Director Payment: JAROD De La Garzapec. New Site,Ur1.432Htynll0.005-1.030[facility]-FairhillComment on above:Performed By: #### UA #### [facility] [address] [place] [address] Director Payment: Laith Stearns MDUrobilinogen,UrNormalNormal0.0-1.0[facility]-FairhillComment on above:Performed By: #### UA #### [facility] [address] [place] [address] Director Payment: JOSE F De La Garza Pelvis Non-OB Completeon [id number] Pelvis Non-OB CompleteExam Date/Time: 09/05/2024 14:57 EDT Reason for Exam: R10.2 Report IMPRESSION: Negative pelvic ultrasound. CLINICAL HISTORY: R10.2 COMPARISONS: None available. TECHNICAL FACTORS: Transabdominal and transvaginal sonography with transvaginal imaging was obtained to better assess pelvic anatomy. FINDINGS: Uterus: Normal in size, and shape. Heterogenous appearance without focal nodules. Nabothian cysts identified. Endometrium: Normal in appearance. Right ovary: Normal in size, shape, and echogenicity. Color flow and Doppler without anomaly. Left ovary: Normal in size, shape, and echogenicity. Color flow and Doppler without anomaly. Free fluid: None Adnexal masses: None The uterus measurements and an estimated volume are: Uterus Length: 10.5 cm Uterus Width: 5.9 cm Uterus Height: 3.3 cm Uterus Volume: 107.4 cm3 Endometrium Thickness: 0.7 cm The right ovary measurements and an estimated volume are: Right Ovary Length: 3.0 cm Right Ovary Width: 2.7 cm Right Ovary Height: 2.4 cm Right Ovary Volume: 10.3 cm3 The left ovary measurements and an estimated volume are: Left Ovary Length: 2.9 cm Left Ovary Width: 2.9 cm Report Left Ovary Height: 2.2 cm Left Ovary Volume: 9.7 cm3 Ordering Provider: KEMAR GARY FINAL REPORT Dictated: 09/05/2024 3:05 pm Brandon Walls MD Signed (Electronic Signature): 09/05/2024 3:05 pm Signed by: Brandon Walls MD Transcribed by: JEET Technologist: ChandaAdena Pike Medical CenterUS Transvaginal Non-OBon [id number] Transvaginal Non-OBExam Date/Time: 09/05/2024 14:57 EDT Reason for Exam: R10.2;Pelvic pain Report Review report ultrasound pelvis non-OB, for report of ultrasound transvaginal. Technical Comments: Ordering Provider: COOKIE, KEMAR FINAL REPORT Dictated: 09/05/2024 3:02 pm Brandon Walls MD Signed (Electronic Signature): 09/05/2024 3:02 pm Signed by: Brandon Walls MD Transcribed by: JEET Technologist: [facility] Medical CenterAmbulatory Visit Summaryon [id number] Visit SummaryAmbulatory Visit Summary MORRO MALONEY :1985 Visit Date:09/04/2024 Ambulatory Visit Instructions Your Diagnosis Pelvic pain Abdominal pain Morbid obesity with BMI of 40.0-44.9, adult BMI 40.0-44.9, adult, Body mass index [BMI] 40.0-44.9, adult Nonsmoker Your Care Team Attending Physician - KEMAR GARY CNP Primary Care Physician - Cleo Hassan This Is Your Medications List albuterol (Ventolin HFA 90 mcg/inh Aerosol-Adpt) docusate (Colace) escitalopram (escitalopram 20 mg Tab) lamotrigine (lamotrigine 200 mg Tab) Procedures Performed History of partial thyroidectomy (09/22/2023), Colonoscopy (09/05/2023), Esophagogastroduodenoscopy(09/05/2023), Appendectomy, delivery, Cholecystectomy, Gastric sleeve, Parotidectomy. Discharge Vitals Temperature (Oral) 36.8 ???C Heart Rate (Peripheral) 78 Respiratory Rate 20 Blood Pressure 132/80 Height 161 cm Height 63 in Weight 114 kg Weight 251.327 lb BMI 43.98 What to do next You Need to Complete the Following US Transvaginal Non-OB, 09/04/24, Routine, Order for future visit, Transport Mode: Ambulatory, Reason: Pelvic pain, No, Pelvic pain Abdominal pain, pp_set_radiology_subspecialty, [facility] Medications What How Much When Instructions Unchanged albuterol (Ventolin HFA 90 mcg/ inh Aerosol-Adpt) 2 Puffs Inhalation Every 4 hours as needed for for wheezing Unchanged docusate (Colace) 200 Milligram By Mouth Every day Unchanged escitalopram (escitalopram 20 mg Tab) TAKE 1 TABLET BY MOUTH EVERY DAY FOR 90 DAYS Unchanged lamotrigine (lamotrigine 200 mg Tab) 1 Tablets By Mouth Every day Allergies ARIPiprazole (Unknown) FLUoxetine (Unknown) Problems Ongoing - Any problem that you are currently receiving treatment for. Asthma Bloating BMI 40.0-44.9, adult Cyst of thyroid Difficulty swallowing Elevated creatine kinase Elevated glucose Elevated WBCs Encounter for weight management Enlarged thyroid gland Fatigue History of thyroidectomy Iron deficiency anemia Low back pain Morbid obesity with BMI of 40.0-44.9, adult Nonsmoker Shortness of breath Spondylosis Thyroid nodule Weight gain Weight loss Wellness examination Patient Survey You may receive a survey via text or e-mail asking about your office visit. Please share your experience with us by completing your survey. We appreciate your feedback and thank you for choosing us for your care. Education Materials Pelvic Pain, Female Pelvic pain is pain in your lower belly (abdomen), below your belly button and between your hips. The pain may: ??? Start all of a sudden (be acute). ??? Keep coming back (be recurring). ??? Last a long time (become chronic). Pelvic pain that lasts longer than 6 months is called chronic pelvic pain. There are many causes of pelvic pain. Sometimes the cause of pelvic pain is not known. Follow these instructions at home: ??? Take fiqs-jqc-gdzcwvy and prescription medicines only as told by your doctor. ??? Rest as told by your doctor. ??? Do not have sex if it hurts. ??? Keep a journal of your pelvic pain. Write down: ? When the pain started. ? Where the pain is located. ? What seems to make the pain better or worse, such as food or your monthly period (menstrual cycle). ? Any symptoms you have along with the pain. ??? Keep all follow-up visits. Contact a doctor if: ??? Medicine does not help your pain, or your pain comes back. ??? You have new symptoms. ??? You have unusual discharge or bleeding from your vagina. ??? You have a fever or chills. ??? You are having trouble pooping (constipation). ??? You have blood in your pee (urine) or poop (stool). ??? Your pee smells bad. ??? You feel weak or light-headed. Get help right away if: ??? You have sudden pain that is very bad. ??? You have very bad pain and also have any of these symptoms: ? A fever. ? Feeling like you may vomit (nauseous). ? Vomiting. ? Being very sweaty. ??? You faint. These symptoms may be an emergency. Get help right away. Call your local emergency services (911 int [place] ??? Do not wait to see if the symptoms will go away. ??? Do not drive yourself to the hospital. Summary ??? Pelvic pain is pain in your lower belly (abdomen), below your belly button and between your hips. ??? There are many causes of pelvic pain. ??? Keep a journal of your pelvic pain. This information is not intended to replace advice given to you by your health care provider. Make sure you discuss any questions you have with your health care provider. Document Revised: 06/16/2021 Document Reviewed: 06/16/2021 [employer] Patient Education ??? 2023 [employer] Patient Portal You may access all of your results and other medical record information on our secure patient portal. (more content not included)...[facility]Fab[facility] Medicine Office/Clinic Noteon [id number] Medicine Office/Clinic NoteFami Medicine Office/Clinic Note Chief Complaint Acute Visit The patient presents with abdominal and pelvic pain. HPI Staff Cleo Hernandez pt. Presenting today due to abdominal & pelvic pain. Pain characteristics: Pain location: abdominal & pelvic area Intensity:_2/10. can get up to 9/10 Onset: Intermittent for the past month Medication used: Motrin & Tylenol. No relief. History of Present Illness 39-year-old female presenting with abdominal and pelvic pain. The pain is intermittent, occurring three to four times a week, lasting six to eight hours, and is described as intense and central, causing her to double over. She has a history of Polycystic Ovary Syndrome (PCOS) and has experienced ovarian cysts, but the current pain is centralized rather than lateral. The patient has a family history of uterine fibroids and cervical cancer, with her last Pap smear conducted two years ago, which was normal. She reports irregular menstrual cycles, with the last cycle starting on a recent Tuesday and ending quickly. Review of Systems PHQ Score Initial Depression Screen Score: 0 SCORE - Gastrointestinal: Reports intermittent, intense abdominal pain; Denies changes in bowel movements. - Genitourinary: Reports pelvic pain; Denies dysuria, urinary frequency, or incontinence. - Musculoskeletal: Reports back pain associated with spondylolisthesis. - Hematologic: Reports significant fatigue, attributed to anemia. - Reproductive: Reports irregular menstrual cycles. Physical Exam Vitals & Measurements T: 36.8 ???C(Oral) HR: 78(Peripheral) RR: 20 BP: 132/80 SpO2: 99% HT: 161 cm HT: 63 in WT: 114 kg WT: 251.327 lb BMI: 43.98 General: alert, no acute distress Skin: warm, dry Head: no trauma, normocephalic Neck: Trachea midline, no adenopathy, no tenderness Eye: normal conjunctiva, sclera clear Cardiovascular: regular rate and rhythm, normal peripheral perfusion Respiratory: Lungs CTA, respirations non labored Gastrointestinal: soft, non distended, mild pubic region tenderness, no guarding. Back: No tenderness, Normal ROM, Normal alignment. Extremities: no deformity, no trauma - Abdominal: Tenderness in the lower abdomen, particularly in the pubic region. - Respiratory: Normal breath sounds, no abnormalities noted. Assessment/Plan 1. Pelvic pain (R10.2: Pelvic and perineal pain) - Transvaginal ultrasound ordered to assess pelvic structures. Ordered: US Transvaginal Non-OB 2. Abdominal pain (R10.9: Unspecified abdominal pain) - Plan to perform an ultrasound to evaluate the cause of the pain. Ordered: US Transvaginal Non-OB 3. Morbid obesity with BMI of 40.0-44.9, adult (E66.01: Morbid (severe) obesity due to excess calories) The standard range for ages 18 and older is >=18.5 and < 25 kg/m2. Your BMI today was above this range, this falls in the overweight to obese category and there are medical benefits to weight loss. We can offer counselling, referral, and/or medical support in addressing this problem. Your BMIand weight management will be followed at subsequent visits. 4. BMI 40.0-44.9, adult, (Z68.41: Body mass index [BMI] 40.0-44.9, adult)Body mass index [BMI] 40.0-44.9, adult BMI 43.98 5. Nonsmoker (Z78.9: Other specified health status) Encouraged to continue is a non-smoker Follow-up No qualifying data available Patient Education Pelvic Pain, Female, Ehpy-bl-Nczl Problem List/Past Medical History Ongoing Asthma Bloating BMI 40.0-44.9, adult Cyst of thyroid Difficulty swallowing Elevated creatine kinase Elevated glucose Elevated WBCs Encounter for weight management Enlarged thyroid gland Fatigue History of thyroidectomy Iron deficiency anemia Low back pain Morbid obesity with BMI of 40.0-44.9, adult Nonsmoker Shortness of breath Spondylosis Thyroid nodule Weight gain Weight loss Wellness examination Historical No qualifying data Procedure/Surgical History History of partial thyroidectomy (09/22/2023), Colonoscopy (09/05/2023), Esophagogastroduodenoscopy(09/05/2023), Appendectomy, delivery, Cholecystectomy, Gastric sleeve, Parotidectomy. Medications Colace, 200 mg, Oral, Daily escitalopram 20 mg Tab lamotrigine 200 mg Tab, 200 mg= 1 tab(s), Oral, Daily Ventolin HFA 90 mcg/inh Aerosol-Adpt, 2 puff(s), Inhalation, q4hr, PRN, 11 refills Allergies ARIPiprazole (Unknown) FLUoxetine (Unknown) Social History Alcohol - Denies Alcohol Use, 08/15/2023 Never., 04/30/2024 Substance Abuse - Denies Substance Abuse, 08/15/2023 Never., 04/30/2024 Tobacco Never (less than 100 in lifetime) Tobacco Use:. Never Smokeless Tobacco Use:. Household tobacco concerns: No. Yes, 09/04/2024 Family History Ulcerative colitis: Father and Grandparent. Immunizations Vaccine Date Status SARS-CoV-2 (COVID-19) mRNA BNT-162b2 vax 04/02/2020 Recorded SARS-CoV-2 (COVID-19) mRNA BNT-162b2 vax 03/12/2020 Recorded Lab Results Ambulatory (more content not included)...[facility] Comment on above:Result Comment: Electronically Signed By: KEMAR GARY CNP\Date and Time Signed: 09/04/24 16:27 EDTBasic Metabolic Panelon 06-11-2024 Anion gap [Moles/Vol]9 mmol/L9 - 17 mmol/LBon Camille Orozco HealthCalcium [Mass/Vol]8.9 mg/dL8.6 - 10.4 mg/dLBon Samaritan HospitalChloride [Moles/Vol] 101 mmol/L98 - 107 mmol/LBon Samaritan HospitalCO2 [Moles/Vol]26 mmol/L20 - 31 mmol/LBon Samaritan HospitalCreatinine [Mass/Vol]1.1 mg/dLHigh0.5 - 0.9 mg/dL Bon Samaritan HospitalEst, Glom Filt Rate66- PINFBon Samaritan Hospital Comment on above: These results are not intended for use in patients <18 years of age. eGFR results are calculated without a race factor using the 2020 CKD-EPI equation. Careful clinical correlation is recommended, particularly when comparing to results calculated using previous equations. The CKD-EPI equation is less accurate in patients with extremes of muscle mass, extra-renal metabolism of creatine, excessive creatine ingestion, or following therapy that affects renal tubular secretion. Glucose [Mass/Vol]87 mg/dL70 - 99 mg/dLBon Samaritan HospitalInterpretation and review of laboratory resultsAbnormalBon Samaritan HospitalPotassium [Moles/Vol]4.5 mmol/L3.7 - 5.3 mmol/LBon Samaritan HospitalSodium [Moles/Vol] 136 mmol/L135 - 144 mmol/LBon Samaritan HospitalUrea nitrogen [Mass/Vol]13 mg/dL6 - 20 mg/dLBon Samaritan HospitalBasic Metabolic Profon 25-65-4447Aesci gap [Moles/Vol]9 mmol/LNormal9-17[facility]-FairhillComment on above: Performed By: #### FEBC #### [facility] [employer] [address] [place] [address] Director Payment: Jair Ernst MD #### FÉLIX BMP, MG, CDP #### [facility] [address] [place] [address] Director Payment: JOO De La Garzaalcium [Mass/Vol]8.9 mg/dLNormal8.6-10.4[facility]-FairhillComment on above:Performed By: #### FEBC #### [address] [place], [place] [id number] Director Payment: Jair Ernst MD #### TROPI, BMP, MG, CDP #### [facility] [address] [place] [address] Director Payment: JOO De La Garzahloride [Moles/Vol]101 mmol/BMiotou95-010RekfcSelect Medical Specialty Hospital - Cleveland-FairhillComment on above:Performed By: #### FEBC #### [address] [address] Director Payment: Jair Ernst MD #### TROPI, BMP, MG, CDP #### [facility] [address] [place] [address] Director Payment: JOO De La GarzaO2 [Moles/Vol]26 mmol/PUuifcm03-10MioyrSelect Medical Specialty Hospital - Cleveland-FairhillComment on above:Performed By: #### CANDIE #### [address] [address] Director Payment: Jair Ernst MD #### TROPRobin, BMP, MG, CDP #### [facility] [address] [place] [address] Director Payment: JOO De La Garzareatinine [Mass/Vol]1.1 mg/dLHigh0.5-0.9[facility]-FairhillComment on above:Performed By: #### CANDIE #### [address] [phone] Director Payment: Jair Ernst MD #### TROPI, BMP, MG, CDP #### [facility] [address] [place] [address] Director Payment: Laith Stearns MDGFR/1.73 sq M.predicted among non-blacks MDRD (S/P/Bld) [Vol rate/Area]66 mL/min/{1.73_m2}Normal>60[facility] Comment on above:Result Comment: These results are not intended for use in patients <18 years of age. eGFR results are calculated without a race factor using the 2020 CKD-EPI equation. Careful clinical correlation is recommended, particularly when comparing to results calculated using previous equations. The CKD-EPI equation is less accurate in patients with extremes of muscle mass, extra-renal metabolism of creatine, excessive creatine ingestion, or following therapy that affects renal tubular secretion.Performed By: #### FEBC #### [address] [id number] Director Payment: Jair Ernst MD #### TROPI, BMP, MG, CDP #### [facility] [address] [place] [address] Director Payment: Laith Stearns MDGlucose [Mass/Vol]87 mg/iTItktlt67-67SffrfACMC Healthcare System GlenbeighComment on above:Performed By: #### FEBC #### [address] [address] Director Payment: Jair Ernst MD #### TROPI, BMP, MG, CDP #### [facility] [address] [place] [address] Director Payment: AUDELIA De La Garzaotassium [Moles/Vol]4.5 mmol/LNormal3.7-5.3[facility]flower Medical CenterComment on above:Performed By: #### FEBC #### [address] [phone] Director Payment: Jair Ernst MD #### TROPI, BMP, MG, CDP #### [facility] [address] [place] [address] Director Payment: JAROD De La Garzaodium [Moles/Vol]136 mmol/FMrfcmo798-904Phjee [facility] Sunflower Medical CenterComment on above:Performed By: #### FEBC #### [address] [phone] Director Payment: Jair Ernst MD #### TROPI, BMP, MG, CDP #### [facility] [address] [place] [address] Director Payment: Laith Stearns MDUrea nitrogen [Mass/Vol]13 mg/dLNormal6-20[facility]-FairhillComment on above:Performed By: #### FEBC #### [facility] [address] [place] [address] Director Payment: Jair Ernst MD #### TROPI, BMP, MG, CDP #### [facility] [address] [place] [address] Director Payment: Laith Stearns [facility] with Auto Differentialon [id number] (Bld) [#/Vol]0.08 10*3/uLBon Secours Mercy HealthBasophils/100 WBC (Bld)1 %0 - 2 %[facility]erm[facility] HospitalEosinophils (Bld) [#/Vol]0.31 10*3/uLBon Secours [facility]cy [facility] Clermont HospitalEosinophils/100 WBC (Bld)3 %0 - 5 %[facility] HealthErythrocyte distribution width (RBC) [Ratio]19.1 %High12.1 - 15.2 %[facility] Hematocrit (Bld) [Volume fraction]36.8 %36.0 - 46.0 %[facility] Hemoglobin (Bld) [Mass/Vol]11.4 g/dLLow12.0 - 16.0 g/dLBon Secours [facility]cy Health Immature granulocytes (Bld) [#/Vol]0.01 10*3/uLBon Secours [facility]cy [facility] Clermont HospitalImmature granulocytes/100 WBC (Bld)0 %0 - 5 %[facility] HealthInterpretation and review of laboratory resultsAbnormalBon Secours Mercy HealthLymphocytes/100 WBC (Bld)30 %15 - 40 %[facility] HealthLymphocytes/100 WBC (Bld)2.85 %[facility] Clermont HospitalMCH (RBC) [Entitic mass]24.5 pgLow26.0 - 34.0 pgBon Samaritan HospitalMCHC (RBC) [Mass/Vol]31 g/dL31.0 - 37.0 g/dLBon Samaritan Hospital MCV (RBC) [Entitic vol]79 fLLow80.0 - 100.0 fLSpotsylvania Regional Medical Center Monocytes/100 WBC (Bld)7 %4 - 8 %[facility] CenterMonocytes/100 WBC (Bld) 0.69 %[facility] CenterMorphology Lion (Bld) [Interp]SLIGHT ANISOCYTOSIS Bon [facility]aritan HospitalMorphology Lion (Bld) [Interp]FEW Large PlateletsSpotsylvania Regional Medical CenterNeutrophils/100 WBC (Bld)58 %47 - 75 %Bon [facility]aritan HospitalPlatelet mean volume (Bld) [Entitic vol]10.4 fL6.0 - 12.0 fLSpotsylvania Regional Medical CenterPlatelets (Bld) [#/Vol]318 10*3/uLBon Samaritan HospitalRBC (Bld) [#/Vol]4.66 10*6/uL4.00 - 5.20 m/uLSpotsylvania Regional Medical CenterSegmented neutrophils/100 WBC (Bld)5.46 %[facility] CenterWBC other (Bld) [#/Vol] 9.4Bon SecMayo Clinic Health System Franciscan HealthcareCBC with Diffon 06-11-2024 Morphology Lion (Bld) [Interp]SLIGHTNormalMerMary Imogene Bassett HospitalComment on above: Result Comment: ANISOCYTOSIS FEW Large PlateletsPerformed By: #### FEBC #### [facility] [employer] [address] [place] [address] Director Payment: Jair Ernst MD #### SHELIA HEARD, MG, CDP #### [facility] [address] [place] [address] Director Payment: Troy De La Garza. Basophil0.08 k/uLNormal0.00-0.20[facility]-FairhillComment on above:Performed By: #### FEBC #### [facility] [address] [place] [address] Director Payment: Jair Ernst MD #### TROPRobin BMP, MG, CDP #### [facility] [address] [place], [place] [phone] Director Payment: Troy De La Garza.Imm.Granulocyte0.01 k/uLNormal0.00-0.30[facility] on above:Performed By: #### FEBC #### [address] [address] Director Payment: Jair Ernst MD #### SHELIA HEARD, MG, CDP #### [facility] [address] [place], [place] [phone] Director Payment: Troy De La Garza.Neutrophil (Seg)5.46 k/uLNormal2.5-7.0[facility]-FairhillComharbor oaks hospital on above:Performed By: #### FEKATT #### [address] [id number] Director Payment: Jair Ernst MD #### FÉLIX BMP, MG, CDP #### [facility] [address] [place], [place] [phone] Director Payment: Laith Stearns MDBasophils/100 WBC (Bld)1 %Normal0-2MVeterans Health Administration on above:Performed By: #### FEBC #### [address] [address] Director Payment: Jair Ernst MD #### TROPRobin BMP, MG, CDP #### [facility] [address] [place], [place] [phone] Director Payment: Laith Stearns MDEosinophils (Bld) [#/Vol]0.31 10*3/uLNormal 0.00-0.40[facility] on above:Performed By: #### FEBC #### [facility] [address] [place], [place] [phone] Director Payment: Jair Ernst MD #### TROPI, BMP, MG, CDP #### [facility] [address] [place], [place] [phone] Director Payment: Laith Stearns MDEosinophils/100 WBC (Bld)3 %Normal0-5[facility] on above:Performed By: #### FEBC #### [facility] [address] [place], [place] [phone] Director Payment: Jair Ernst MD #### TROPI, BMP, MG, CDP #### [facility] [address] [place] [address] Director Payment: Laith Stearns MDErythrocyte distribution width (RBC) [Ratio]19.1 % High12.1-15.2MVeterans Health Administration on above:Performed By: #### FEBC #### [facility] [address] [place], [place] [phone] Director Payment: Jair Ernst MD #### TROPI, BMP, MG, CDP #### [facility] [address] [place] [address] Director Payment: Laith Stearns MDHematocrit (Bld) [Volume fraction]36.8 %Normal 36.0-46.0[facility] on above:Performed By: #### FEBC #### [facility] [address] [place], [place] [phone] Director Payment: Jair Ernst MD #### TROPI, BMP, MG, CDP #### [facility] [address] [place], [place] [phone] Director Payment: Laith Stearns MDHemoglobin (Bld) [Mass/Vol]11.4 g/dLLow12.0-16.0 [facility] on above:Performed By: #### FEBC #### [address] [address] Director Payment: Jair Ernst MD #### TROPI, BMP, MG, CDP #### [facility] [address] [place], [place] [phone] Director Payment: Laith Stearns MDImmature granulocytes/100 WBC (Bld)0 %Normal0-5 [facility] on above:Performed By: #### FEBC #### [address] [phone] Director Payment: Jair Ernst MD #### TROPI, BMP, MG, CDP #### [facility] [address] [place], [place] [phone] Director Payment: Laith Stearns MDLymphocytes (Bld) [#/Vol]2.85 10*3/uLNormal 1.00-4.80[facility]-FairhillComharbor oaks hospital on above:Performed By: #### FEBC #### [address] [phone] Director Payment: Jair Ernst MD #### TROPI, BMP, MG, CDP #### [facility] [address] [phone] Director Payment: Laith Stearns MDLymphocytes/100 WBC (Bld)30 %Ggcbxr00-38VcwtfWyandot Memorial Hospital on above:Performed By: #### FEBC #### [address] [phone] Director Payment: Jair Ernst MD #### TROPI, BMP, MG, CDP #### [facility] [address] [place], [place] [phone] Director Payment: JUAN De La GarzaCH (RBC) [Entitic mass]24.5 pgLow26.0-34.0[facility]-FairhillComment on above:Performed By: #### FEBC #### [address] [phone] Director Payment: Jair Ernst MD #### TROPI, BMP, MG, CDP #### [facility] [address] [phone] Director Payment: JUAN De La GarzaCHC (RBC) [Mass/Vol]31.0 g/bEVfdfrd08.0-37.0[facility]-FairhillComment on above:Performed By: #### FEBC #### [phone] Director Payment: Jair Ernst MD #### TROPI, BMP, MG, CDP #### [facility] [address] [place] [phone] Director Payment: JUAN De La GarzaCV (RBC) [Entitic vol]79.0 fLLow80.0-100.0[facility]-FairhillComment on above:Performed By: #### ALESSANDROBC #### [phone] Director Payment: Jair Ernst MD #### TROPI, BMP, MG, CDP #### [facility] [address] [phone] Director Payment: JUAN De La Garzaonocytes (Bld) [#/Vol]0.69 10*3/uLNormal0.00-1.00 [facility]-FairhillComment on above:Performed By: #### FEKATT #### [phone] Director Payment: Jair Ernst MD #### TROPI, BMP, MG, CDP #### [facility] [address] [place], [place] [phone] Director Payment: JUAN De La Garzaonocytes/100 WBC (Bld)7 %Normal4-8[facility]-FairhillComment on above:Performed By: #### FEBC #### [facility] [address] [place], [place] [phone] Director Payment: Jair Ernst MD #### TROPI, BMP, MG, CDP #### [facility] [address] [place], [place] [phone] Director Payment: Laith Stearns MDNeutrophil (Seg)58 %Hexxrd37-88PuseqSelect Medical Specialty Hospital - Cleveland-FairhillComment on above:Performed By: #### FEBC #### [address] [phone] Director Payment: Jair Ernst MD #### TROPI, BMP, MG, CDP #### [facility] [address] [place], [place] [phone] Director Payment: Elias De La Garza mean volume (Bld) [Entitic vol]10.4 fL Normal6.0-12.0[facility]-FairhillComharbor oaks hospital on above:Performed By: #### FEBC #### [address] [phone] Director Payment: Jair Ernst MD #### TROPI, BMP, MG, CDP #### [facility] [address] [place], [place] [phone] Director Payment: AUDELIA De La Garzalatelets (Bld) [#/Vol]318 10*3/pCBajsgd789-840 [facility]-FairhillComharbor oaks hospital on above:Performed By: #### FEBC #### [address] [phone] Director Payment: Jair Ernst MD #### TROPI, BMP, MG, CDP #### [facility] [address] [place], [place] [phone] Director Payment: ISAK De La Garza ([facility]) [#/Vol]4.66 10*6/uLNormal4.00-5.20[facility]-FairhillComment on above:Performed By: #### FEBC #### [address] [phone] Director Payment: Jair Ernst MD #### TROPI, BMP, MG, CDP #### [facility] [address] [place] [address] Director Payment: PRINCESS De La Garza ([facility]) [#/Vol]9.4 10*3/uLNormal3.5-11.0[facility]-FairhillComment on above:Performed By: #### FEBC #### [place] [address] Director Payment: Jair Ernst MD #### TROPI, BMP, MG, CDP #### [facility] [address] [place] [address] Director Payment: Pancho De La Garza Binding Cap.on 06-11-2024% Fe Saturation8 % Ujm52-61YivtsSelect Medical Specialty Hospital - Cleveland-FairhillComment on above:Performed By: #### BMP, LIVP, CDP, LIP, HCG #### [facility] [address] [place] [address] Director Payment: Pancho De La Garza [Mass/Vol]23 ug/xHSps43-409PocefSelect Medical Specialty Hospital - Cleveland-FairhillComment on above:Performed By: #### BMP, LIVP, CDP, LIP, HCG #### [facility] [address] [place] [address] Director Payment: Kt De La Garza Fe Binding Ffr734 ug/hPAfnbpp106-964FdzmwSelect Medical Specialty Hospital - Cleveland-FairhillComment on above:Performed By: #### BMP, LIVP, CDP, LIP, HCG #### [facility] [address] [place], [place] [phone] Director Payment: Laith Stearns MDUnbound Fe Bind Knl759 ug/qHNrbbqo845-941PtruxWyandot Memorial Hospital on above:Performed By: #### BMP, LIVP, CDP, LIP, HCG #### [facility] [address] [place], [place] [phone] Director Payment: William De La Garzagnesiumon [id number] [Mass/Vol]2.1 mg/dL1.6 - 2.6 mg/dLBon Samaritan HospitalMagnesium [Mass/Vol]2.1 mg/dLNormal 1.6-2.6MercWoodland Memorial Hospital on above:Performed By: #### FEBC #### [address] [place], [place] [phone] Director Payment: Jair Ernst MD #### TROPI, BMP, MG, CDP #### [facility] [address] [place], [place] [phone] Director Payment: Laith Stearns MDNo Panel Informationon [id number] Samaritan HospitalTroponinon [id number] I.cardiac High sensitivity method [Mass/Vol]ng/L0 - 14 ng/LBon Samaritan HospitalComharbor oaks hospital on above:High Sensitivity Troponin values cannot be compared with other Troponin methodologies.Troponin, High Sens<9Kypmaq9-31BksnbWyandot Memorial Hospital on above:Result Comment: High Sensitivity Troponin values cannot be compared with other Troponin methodologies.Performed By: #### FEBC #### [employer] [address] [place] [phone] Director Payment: Jair Ernst MD #### TROPI, BMP, MG, CDP #### [facility] [address] [place], [place] [phone] Director Payment: Laith Stearns MDFamily Medicine Office/Clinic Noteon 05-03-2024 [facility]/Cl[facility] NoteFl[facility]inic [facility] HPI Staff Morro is a 38 year old female presenting to discuss labs Labs drawn 04/27/24 Hgb 11.3, hx of iron deficiency anemia Pt denies having heavy periods, and states she has had Upper and lower GI in the past. Nothing was found. History of Present Illness pt presents today to go over recent labs. is craving ice again. has had venofer in the past Review of Systems PHQ Score Initial Depression Screen Score: 0 SCORE Physical Exam Vitals & Measurements HR: 88(Peripheral) RR: 18 BP: 130/80 SpO2: 99% HT: 63 in HT: 161 cm WT: 112.5 kg WT: 248.02 lb BMI: 43.4 General: alert, no acute distress ENMT: oral mucosa moist, no pharyngeal erythema or exudate Cardiovascular: regular rate and rhythm, normal peripheral perfusion Respiratory: Lungs CTA, respirations non labored Extremities: no deformity, no trauma Neurological: oriented x 4, LOC appropriate for age, CN II-XII intact, motor strength equal & normal bilaterally, speech normal Assessment/Plan 1. Iron deficiency anemia (D50.9: Iron deficiency anemia, unspecified) pt is craving ice again. and feels she needs infusion again. all labs reviewed. will send order forVenofer to hospital. Ordered: iron sucrose, See Instructions, 500 mg IV every 2 weeks x 2 doses, # 1 EA, Refills(s) 0 iron sucrose, See Instructions, 300 mg IV every 2 weeks x 2 doses, # 1 EA, Refills(s) 0 2. BMI 40.0-44.9, adult (Z68.41: Body mass index [BMI] 40.0-44.9, adult) BMI education 3. Non-smoker (Z78.9: Other specified health status) continue not smoking Orders: albuterol, 2 puff(s), Inhalation, q4hr for wheezing, 18 gram, Refill(s) 11 albuterol, 2 puff(s), Inhalation, q4hr for wheezing, 18 gram, Refill(s) 11, [id number], 161, cm, 09/21/23 15:12:00 EDT, Height/Length Dosing, 108, kg, 07/31/24 15:12:00 EDT, Weight Dosing iron sucrose + Sodium Chloride 0.9% intravenous solution 250 mL, 300 mg = 15 mL, Soln-IV, IV Piggyback, q7day for 2 dose(s), Stop date 05/17/24 8:59:00 EDT, Start date 05/03/24 9:00:00 EDT, 176.67 mL/hr, Infuse over 1.5 hour(s) Follow-up No qualifying data available Problem List/Past [...] History of partial thyroidectomy (09/22/2023), Colonoscopy (09/05/2023), Esophagogastroduodenoscopy(09/05/2023), Appendectomy, delivery, Cholecystectomy, Gastric sleeve, Parotidectomy. Medications Colace, 200 mg, Oral, Daily eszopiclone 3 mg Tab, 3 mg= 1 tab(s), Oral, Once a day (at bedtime), PRN folic acid 1 mg Tab, 1 mg= 1 tab(s), Oral, Daily, 4 refills iron sucrose + Sodium Chloride 0.9% intravenous solution 250 mL lamotrigine 200 mg Tab, 200 mg= 1 tab(s), Oral, Daily sertraline 100 mg Tab, 100 mg= 1 tab(s), Oral, Daily Venofer 20 mg/mL Soln-IV, See Instructions Ventolin HFA 90 mcg/inh Aerosol-Adpt, 2 puff(s), Inhalation, q4hr, PRN, 11 refills Allergies No Known Allergies Social History Alcohol - Denies Alcohol Use, 08/15/2023 Never., 04/30/2024 Substance Abuse - Denies Substance Abuse, 08/15/2023 Never., 04/30/2024 Tobacco Never (less than 100 in lifetime) Tobacco Use:., 04/30/2024 Family History Ulcerative colitis: Father and Grandparent. Immunizations Vaccine Date Status SARS-CoV-2 (COVID-19) mRNA BNT-162b2 vax 04/02/2020 Recorded SARS-CoV-2 (COVID-19) mRNA BNT-162b2 vax 03/12/2020 RecordedNofishAdena Pike Medical CenterComment on above:Result Comment: Electronically Signed By: Cleo Hassan\.br\Date and Time Signed: 05/03/24 15:48 EDTAmbulatory Visit Summary on [id number] Visit SummaryAmbulatory Visit Summary MORRO MALONEY :1985 Visit Date:04/30/2024 Ambulatory Visit Instructions Your Diagnosis BMI 40.0-44.9, adult Non-smoker Iron deficiency anemia Your Care Team Attending Physician - Cleo Hassan Primary Care Physician - Cleo Hassan This Is Your Medications List albuterol (Ventolin HFA 90 mcg/inh Aerosol-Adpt) docusate (Colace) eszopiclone (eszopiclone 3 mg Tab) folic acid (folic acid 1 mg Tab) lamotrigine (lamotrigine 200 mg Tab) sertraline (sertraline 100 mg Tab) Procedures Performed History of partial thyroidectomy (09/22/2023), Colonoscopy (09/05/2023), Esophagogastroduodenoscopy(09/05/2023), Appendectomy, delivery, Cholecystectomy, Gastric sleeve, Parotidectomy. Discharge Vitals Heart Rate (Peripheral) 88 Respiratory Rate 18 Blood Pressure 130/80 Height 161 cm Height 63 in Weight 112.5 kg Weight 248.02 lb BMI 43.4 Medications What How Much When Why Instructions [...] Mouth Every day Iron deficiency anemia Unchanged lamotrigine (lamotrigine 200 mg Tab) 1 [...] you for choosing us for your care. NormalAdena Pike Medical CenterCBC w/ Auto Diffon 04-27-2024 Basophils/100 WBC (Bld)1.3 %Normal0.0-2.0A[facility] Pike Medical CenterComment on above:Performed By: #### [id number] #### [facility] [address] [place] [address] 61424Lbcwbsxlo/Leukocytes Auto (Bld) [Pure # fraction]0.1 E9/LNormal 0.0-0.2FPremier Health Miami Valley Hospital NorthComment on above:Performed By: #### [id number] #### [facility] [address] [place] [address] 49491Nivemopwyji (Bld) [#/Vol]0.3 E9/LNormal0.0-0.5FPremier Health Miami Valley Hospital NorthComment on above:Performed By: #### [id number] #### [facility] [address] [place] [address] 85669Calnoazuihv/100 WBC (Bld)4.1 %Normal0.0-8.0A[facility]a Pike Medical CenterComment on above:Performed By: #### [id number] #### [facility] [address] [place] [address] 12145Sxcthhfbloy distribution width (RBC) [Ratio]17.6 %High10.9-14.2 [facility]ike Medical CenterComment on above:Performed By: #### [id number] #### [facility] [address] [place] [address] 10800Wwymymvtrn (Bld) [Volume fraction]35.2 %Prfhos56.0-46.0A[facility] Pike Medical CenterComment on above:Performed By: #### [id number] #### [facility] [address], [place] [address]Hczrjyotmt (Bld) [Mass/Vol]11.3 g/dLLow12.0-16.0A[facility] Pike Medical CenterComment on above:Performed By: #### [id number] #### [facility] [address] [place] [address] 81044Wniyafexcfk Auto Ql (Bld)PRESENTInvalid Interpretation Code [facility]ike Medical CenterComment on above:Performed By: #### [id number] #### [facility] [address] [place] [address] 20709Hbekozmwthl (Bld) [#/Vol]2.2 E9/LNormal1.0-4.0A[facility] Pike Medical CenterComment on above:Performed By: #### [id number] #### [facility] [address] [place] [address] 74190Wgpagaeesms/100 WBC (Bld)26.8 %Fxemgn48.0-50.0A[facility]ike Medical CenterComment on above:Performed By: #### [id number] #### [facility] [address] [place] [address] 89301TEX (RBC) [Entitic mass]24.3 pgLow27.0-34.0A[facility] Pike Medical CenterComment on above:Performed By: #### [id number] #### [facility] [address], [place] [address]TKTF (RBC) [Mass/Vol]32.1 g/hWEnuykl31.4-36.0A[facility] Pike Medical CenterComment on above:Performed By: #### [id number] #### [facility] [address] [place] [address] 28868CBG (RBC) [Entitic vol]75.8 fLLow80.0-100.0A[facility] Pike Medical CenterComment on above:Performed By: #### [id number] #### [facility] [address], [place] [address]Lrdtcfhot (Bld) [#/Vol]0.6 E9/LNormal0.2-1.0A[facility] Pike Medical CenterComment on above:Performed By: #### [id number] #### [facility] [address] [place] [address] 80433Eswfgnwiylp (Bld) [#/Vol]5.1 E9/LNormal2.0-7.5FPremier Health Miami Valley Hospital NorthComment on above:Performed By: #### [id number] #### [facility] [address] [place] [address] 48057Jliscemmbmz/100 WBC (Bld)60.4 %Pazvyh66.0-75.0A[facility] Pike Medical CenterComment on above:Performed By: #### [id number] #### [facility] [address] [place] [address] 68464Ilmmqlbffg LM Ql (Bld)PRESENTInvalid Interpretation CodeAdena Pike Medical CenterComment on above:Performed By: #### [id number] #### [facility] [address] [place] [address] 19633Xmzhvsxn356.0 E9/CWocppa539.0-500.0[facility] Comment on above:Performed By: #### [id number] #### [facility] [address] [place] [address] 09191Pemxsrva mean volume (Bld) [Entitic vol]7.9 fLNormal6.4-10.8 [facility]ike Medical CenterComment on above:Performed By: #### [id number] #### [facility] [address] [place] [address] 04884HHW (Bld) [#/Vol]4.6 E12/LNormal4.3-5.9A[facility] Pike Medical CenterComment on above:Performed By: #### [id number] #### [facility] [address] [place] [address] 42712TFG size Nom (Bld)SEE MORPHOLOGYInvalid Interpretation Code [facility]ike Medical CenterComment on above:Performed By: #### [id number] #### [facility] [address], [place] [address]OFZ corrected for nucl RBC Auto (Bld) [#/Vol]8.4 E9/LNormal 4.0-11.0A[facility] Pike Medical CenterComment on above:Performed By: #### [id number] #### [facility] [address], [place] [address]Cpyvbcacka 27-11-0263Ccaudbij [Mass/Vol]6 ng/aLRkl71-627NkmzjlAdena Pike Medical CenterComment on above:Performed By: #### [id number] #### [facility] [address], [place] [address]Jabvmz 34-97-0610Dvcy [Mass/Vol]45 microgram/xLAksuty25-089 [facility] Medical CenterComment on above:Performed By: #### [id number] #### [facility] [address], [place] [address]PKAK Calculatedon 37-68-1040Pkqw binding capacity [Mass/Vol]363 microgram/iKSdzzrd249-652DevhzgAdena Pike Medical CenterComment on above:Performed By: #### [id number] #### [facility] [address], [place] [address]Gwhhvthvgqj [Mass/Vol]259 mg/mFHvbfve397-381HlqntnAdena Pike Medical CenterComment on above:Performed By: #### [id number] #### [facility] [address], [place] [address]Xqefuhxiax Visit Summaryon [id number] Visit Summary Ambulatory Visit Summary MORRO MALONEY Sara :1985 Visit Date:12/05/2023 Ambulatory Visit Instructions Your [...] History of partial thyroidectomy (09/22/2023), Colonoscopy (09/05/2023), Esophagogastroduodenoscopy(09/05/2023), Appendectomy, delivery, Cholecystectomy, Gastric sleeve, Parotidectomy. Discharge [...] you for choosing us for your care. [facility] Medicine Office/Clinic Noteon [id number] Medicine Office/Clinic NoteFaboston [facility]/Clinic Note Chief Complaint Weight Management [...] (Z76.89: Persons encountering health services in other specifiedcircumstances) pt would like to try adipex and topamax. medication agreement signed. all questions answered. RTC 4weeks Ordered: phentermine, 37.5 mg = 1 tab(s), Oral, Daily, # 30 tab(s), Refills(s) 0, Pharmacy: [facility]/pharmacy #[id number], 161, cm, 12/05/23 14:58:00 EDT, Height/Length Dosing, 111.3, kg, 12/05/23 14:58:00 EDT, Weight Dosing topiramate, 25 mg = 1 tab(s), Oral, Daily, # 30 tab(s), Refills(s) 2, Pharmacy: [facility]/pharmacy #[id number],161, cm, 12/05/23 14:58:00 EDT, Height/Length Dosing, 111.3, kg, 12/05/23 14:58:00 EDT, Weight Dosing 2. 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 BMI 40.0-44.9, adult (Z68.41: Body mass index [BMI] 40.0-44.9, adult) pt would like to try adipex and topamax Ordered: phentermine, 37.5 mg = 1 tab(s), Oral, Daily, # 30 tab(s), Refills(s) 0, [id number], cm, 12/05/23 14:58:00 EDT, Height/Length Dosing, 111.3, kg, 12/05/23 14:58:00 EDT, Weight Dosing topiramate, 25 mg = 1 tab(s), Oral, Daily, # 30 tab(s), Refills(s) 2, [id number], cm, 12/05/23 14:58:00 EDT, Height/Length Dosing, 111.3, kg, 12/05/23 14:58:00 EDT, Weight Dosing 4. Obesity due to excess calories (E66.09: Other obesity due to excess calories) see above Ordered: phentermine, 37.5 mg = 1 tab(s), Oral, Daily, # 30 tab(s), Refills(s) 0, [id number], cm, 12/05/23 14:58:00 EDT, Height/Length Dosing, 111.3, kg, 12/05/23 14:58:00 EDT, Weight Dosing topiramate, 25 mg = 1 tab(s), Oral, Daily, # 30 tab(s), Refills(s) 2, Pharmacy: [facility] #[id number],161, cm, 12/05/23 14:58:00 EDT, Height/Length Dosing, 111.3, kg, 12/05/23 14:58:00 EDT, Weight Dosing 5. Non-smoker (Z78.9: Other specified health status) continue not smoking Ordered: phentermine, 37.5 mg = 1 tab(s), Oral, Daily, # 30 tab(s), Refills(s) 0, [id number] 161, cm, 12/05/23 14:58:00 EDT, Height/Length Dosing, 111.3, kg, 12/05/23 14:58:00 EDT, Weight Dosing topiramate, 25 mg = 1 tab(s), Oral, Daily, # 30 tab(s), Refills(s) 2, [id number], cm, 12/05/23 14:58:00 EDT, Height/Length Dosing, 111.3, [...] History of partial thyroidectomy (09/22/2023), Colonoscopy (09/05/2023), Esophagogastroduodenoscopy(09/05/2023), Appendectomy, delivery, Cholecystectomy, Gastric sleeve, Parotidectomy. Medications [...] Tobacco Use:. Never Smokeless Tobacco Use:. Cigarettes, Householdtobacco concerns: No., 12/05/2023 Family History Ulcerative colitis: Father and Grandparent. Immunizations Vaccine Date Status SARS-CoV-2 (COVID-19) mRNA BNT-16 (more content not included)...[facility]Comment [facility]:Result Comment: Electronically Signed By: Cleo Hassan\.br\Date and Time Signed: 12/05/23 15:17 EDTCBC w/ Auto Diff on [id number]/100 WBC (Bld)0.6 %Normal0.0-2.0A[facility] Pike Medical CenterComment on above:Performed By: #### [id number] #### [facility] [address] [place] [address] 36362Guitztemw/Leukocytes Auto (Bld) [Pure # fraction]0.1 E9/LNormal 0.0-0.2FPremier Health Miami Valley Hospital NorthComment on above:Performed By: #### [id number] #### [facility] [address] [place] [address] 35938Loxayjlusnw (Bld) [#/Vol]0.4 E9/LNormal0.0-0.5FPremier Health Miami Valley Hospital NorthComment on above:Performed By: #### [id number] #### [facility] [address] [place] [address] 82350Nwxbwvafzte/100 WBC (Bld)3.8 %Normal0.0-8.0[facility]ike Medical CenterComment on above:Performed By: #### [id number] #### [facility] [address] [place] [address] 80747Jgtnlukmavs distribution width (RBC) [Ratio]22.4 %High10.9-14.2 [facility] CenterComment on above:Performed By: #### [id number] #### [facility] [address] [place] [address] 46942Otmkxhemey (Bld) [Volume fraction]35.4 %Ompzce08.0-46.0[facility] Medical CenterComment on above:Performed By: #### [id number] #### [facility] [address] [place] [address] 63274Zcqpiuvtol (Bld) [Mass/Vol]11.3 g/dLLow12.0-16.0[facility] Medical CenterComment on above:Performed By: #### [id number] #### [facility] [address] [place] [address] 23997Mcqdjcpljcz Auto Ql (Bld)PRESENTInvalid Interpretation Code [facility] CenterComment on above:Performed By: #### [id number] #### [facility] [address] [place] [address] 77800Ryaojkpqnkn (Bld) [#/Vol]2.5 E9/LNormal1.0-4.0[facility] Medical CenterComment on above:Performed By: #### [id number] #### [facility] [address] [place] [address] 40787Wlzaqmtvlsm/100 WBC (Bld)26.9 %Cyacwu77.0-50.0[facility] Medical CenterComment on above:Performed By: #### [id number] #### [facility] [address] [place] [address] 37076KJI (RBC) [Entitic mass]23.6 pgLow27.0-34.0[facility]ike Medical CenterComment on above:Performed By: #### [id number] #### [facility] [address] [place] [address] 06004KVMY (RBC) [Mass/Vol]31.9 g/rUGctobm79.4-36.0[facility] Medical CenterComment on above:Performed By: #### [id number] #### [facility] [address] [place] [address] 27580FSC (RBC) [Entitic vol]73.9 fLLow80.0-100.0[facility] Medical CenterComment on above:Performed By: #### [id number] #### [facility] [address] [place] [address] 84069Tgmvozmfoz Ql (Bld)PRESENTInvalid Interpretation CodeAdena Pike Medical CenterComment on above:Performed By: #### [id number] #### [facility] [address] [place] [address] 01879Xuazqozbl (Bld) [#/Vol]0.4 E9/LNormal0.2-1.0[facility] Medical CenterComment on above:Performed By: #### [id number] #### [facility] [address], [place] [address]Eeizjcbzwet (Bld) [#/Vol]5.9 E9/LNormal2.0-7.5FPremier Health Miami Valley Hospital NorthComment on above:Performed By: #### [id number] #### [facility] [address] [place] [address] 82205Xredpxhwvfg/100 WBC (Bld)64.1 %Yftqyu35.0-75.0[facility] Medical CenterComment on above:Performed By: #### [id number] #### [facility] [address] [place] [address] 73039Hzgwdtumyx LM Ql (Bld)PRESENTInvalid Interpretation CodeAdena Pike Medical CenterComment on above:Performed By: #### [id number] #### [facility] [address] [place] [address] 00467Oojgjljv mean volume (Bld) [Entitic vol]7.4 fLNormal6.4-10.8 [facility] CenterComment on above:Performed By: #### [id number] #### [facility] [address] [place] [address] 31410Ahozeevvv (Bld) [#/Vol]331.0 E9/SBwjaxz228.0-500.0[facility] Medical CenterComment on above:Performed By: #### [id number] #### [facility] [address] [place] [address] 56957ERP (Bld) [#/Vol]4.8 E12/LNormal4.3-5.9[facility] Medical CenterComment on above:Performed By: #### [id number] #### [facility] [address] [place] [address] 59187PBU size Nom (Bld)SEE MORPHOLOGYInvalid Interpretation Code [facility] CenterComment on above:Performed By: #### [id number] #### [facility] [address] [place] [address] 52543HOH corrected for nucl RBC Auto (Bld) [#/Vol]9.2 E9/LNormal 4.0-11.0[facility] Medical CenterComment on above:Performed By: #### [id number] #### [facility] [address] [place], [place] [address]UMFWHVMKLSrssgxn By: SYSTEM SYSTEM on 04-19-2096Nxaytty [Mass/Vol]4.4 g/dLNormal3.3 - 5.0 gm/dLRemisol ChemAlbumin/Globulin [Mass ratio] 1.4 {ratio}Normal1.1 - 2.2Remisol ChemALP [Catalytic activity/Vol]95 [iU]/d Owgalm75 - 98 Int._Unit/LRemisol ChemALT No additional P-5'-P [Catalytic activity/Vol]12 [iU]/dNormal6 - 46 Int._Unit/LRemisol ChemAnion gap [Moles/Vol] 13 mmol/LNormal6 - 16 mEq/LRemisol ChemAST [Catalytic activity/Vol]17 [iU]/d Normal5 - 43 Int._Unit/LRemisol ChemBilirubin [Mass/Vol]0.5 mg/dLNormal0.0 - 1.1 mg/dLRemisol ChemCalcium [Mass/Vol]9.3 mg/dLNormal8.9 - 11.1 mg/dLRemisol Chem Chloride [Moles/Vol]101 mmol/UHtgwrt854 - 111 mmol/LRemisol ChemCO2 [Moles/Vol] 25 mmol/CEkticb77 - 31 mmol/LRemisol ChemCreatinine [Mass/Vol]1.0 mg/dLNormal0.5 - 1.3 mg/dLRemisol XzoibFQT55 mL/min/1.73 b2Imjsdh>=59mL/min/1.73 x3Mknimig ChemFerritin [Mass/Vol]9 ng/mLLow11 - 307 ng/mLRemisol ChemFolate [Mass/Vol]13.8 ng/mLNormal>=6.7ng/mLRemisol ChemGlobulin (S) [Mass/Vol]3.2 g/dLNormal1.4 - 4.0 gm/dLRemisol ChemGlucose [Mass/Vol]121 mg/zSZwdujb35 - 199 mg/dLRemisol Chem Iron [Mass/Vol]35 ug/oCOjtvkr67 - 153 mcg/dLRemisol ChemIron binding capacity [Mass/Vol]367 ug/gHHtomqn380 - 400 mcg/dLRemisol ChemIron saturation [Mass fraction]10 %Low20 - 50 %Remisol ChemPotassium [Moles/Vol]4.0 mmol/LNormal3.5 - 5.3 mmol/LRemisol ChemProtein [Mass/Vol]7.6 g/dLNormal6.0 - 7.8 gm/dLRemisol ChemSodium [Moles/Vol]135 mmol/GGlteah752 - 145 mmol/LRemisol ChemTransferrin [Mass/Vol]262 mg/nFCdqeen880 - 370 mg/dLRemisol ChemUrea nitrogen [Mass/Vol]9 mg/dLNormal5 - 21 mg/dLRemisol ChemUrea nitrogen/Creatinine [Mass ratio]9 mg/mg Low10 - 20Remisol ChemCMPon 91-20-0367Iblxhzi [Mass/Vol]4.4 g/dLNormal3.3-5.0 [facility] CenterComment on above:Performed By: #### [id number] #### [facility] [address], [place] [address]Uqdfyho/Globulin (S) [Mass conc ratio]1.0Qzjebq3.1-2.2FPremier Health Miami Valley Hospital NorthComment on above:Performed By: #### [id number] #### [facility] [address], [place] [address]KIG [Catalytic activity/Vol]95 Int._Unit/NMddzlc82-40TyjxtcAdena Pike Medical CenterComment on above:Performed By: #### [id number] #### [facility] [address], [place] [address]FIE No additional P-5'-P [Catalytic activity/Vol]12 Int._Unit/L Normal6-46A[facility] Pike Medical CenterComment on above:Performed By: #### [id number] #### [facility] [address], [place] [address]Bpeeu gap [Moles/Vol]13 mmol/LNormal6-16A[facility]ike Medical CenterComment on above:Performed By: #### [id number] #### [facility] [address], [place] [address]KUJ [Catalytic activity/Vol]17 Int._Unit/LNormal5-43[facility] Medical CenterComment on above:Performed By: #### [id number] #### [facility] [address], [place] [address]Uuxjbepbw [Mass/Vol]0.5 mg/dLNormal0.0-1.1FPremier Health Miami Valley Hospital NorthComment on above:Performed By: #### [id number] #### [facility] [address], [place] [address]Sxtkpoy [Mass/Vol]9.3 mg/dLNormal8.9-11.1FPremier Health Miami Valley Hospital NorthComment on above:Performed By: #### [id number] #### [facility] [address], [place] [address]Cyxtgayn [Moles/Vol]101 mmol/WWzahod190-990WpwdbgAdena Pike Medical CenterComment on above:Performed By: #### [id number] #### [facility] [address] [place] [address] 32368XA4 [Moles/Vol]25 mmol/KJloxei27-00KrgbmrAdena Pike Medical Center Comment on above:Performed By: #### [id number] #### [facility] [address], [place] [address]Uqmllnahxk [Mass/Vol]1.0 mg/dLNormal0.5-1.3FPremier Health Miami Valley Hospital NorthComment on above:Performed By: #### [id number] #### [facility] [address], [place] [address]Okyuckyc (S) [Mass/Vol]3.2 g/dLNormal1.4-4.0[facility] Medical CenterComment on above:Performed By: #### [id number] #### [facility] [address], [place] [address]Lrtskpl [Mass/Vol]121 mg/kBFavgkw16-577CbldjhAdena Pike Medical CenterComment on above:Performed By: #### [id number] #### [facility] [address], [place] [address]Zzdnxlliq [Moles/Vol]4.0 mmol/LNormal3.5-5.3FPremier Health Miami Valley Hospital NorthComment on above:Performed By: #### [id number] #### [facility] [address], [place] [address]Sdjbinp [Mass/Vol]7.6 g/dLNormal6.0-7.8[facility] Medical CenterComment on above:Performed By: #### [id number] #### [facility] [address] [place] [address] 22426Gpnxiv [Moles/Vol]135 mmol/FUzkkdd214-792NjueeiAdena Pike Medical CenterComment on above:Performed By: #### [id number] #### [facility] [address], [place] [address]Jvvn nitrogen [Mass/Vol]9 mg/dLNormal5-21A[facility] Medical CenterComment on above:Performed By: #### [id number] #### [facility] [address], [place] [address]Ynkd nitrogen/Creatinine [Mass ratio]9 No XqoqdZqy77-46SfkdzqAdena Pike Medical CenterComment on above:Performed By: #### [id number] #### [facility] [address], [place] [address]Pcntuqxuqx 43-46-3683Ysfkffhz [Mass/Vol]9 ng/pUBbf32-642XhjwxpAdena Pike Medical CenterComment on above:Performed By: #### [id number] #### [facility] [address], [place] [address]Loouxlvd 69-31-4911Dbbtsx [Mass/Vol]13.8 ng/mLNormal>=6.7FPremier Health Miami Valley Hospital NorthComment on above:Performed By: #### [id number] #### [facility] [address] [place], [place] [address]WZATLHWFJWTmznulx By: SYSTEM SYSTEM on 49-66-4274Qxrwfacnl/100 WBC (Bld)0.6 %Normal0.0 - 2.0 %Remisol HemeBasophils/Leukocytes Auto (Bld) [Pure # fraction]0.1 E9/LNormal0.0 - 0.2 E9/LRemisol HemeEosinophils (Bld) [#/Vol]0.4 E9/LNormal0.0 - 0.5 E9/LRemisol HemeEosinophils/100 WBC (Bld)3.8 %Normal0.0 - 8.0 %Remisol HemeErythrocyte distribution width (RBC) [Ratio]22.4 %High10.9 - 14.2 %Remisol HemeHematocrit (Bld) [Volume fraction]35.4 %Vllaao41.0 - 46.0 % Remisol HemeHemoglobin (Bld) [Mass/Vol]11.3 g/dLLow12.0 - 16.0 gm/dLRemisol Heme Hypochromia Auto Ql (Bld)PRESENT *NA* (10/26/23 2:48 PM)Invalid Interpretation CodeRemisol HemeLymphocytes (Bld) [#/Vol] 2.5 E9/LNormal1.0 - 4.0 E9/LRemisol HemeLymphocytes/100 WBC (Bld)26.9 %Normal 14.0 - 50.0 %Remisol HemeMCH (RBC) [Entitic mass]23.6 pgLow27.0 - 34.0 pgRemisol HemeMCHC (RBC) [Mass/Vol]31.9 g/qPXskycg26.4 - 36.0 gm/dLRemisol HemeMCV (RBC) [Entitic vol]73.9 fLLow80.0 - 100.0 fLRemisol HemeMicrocytes Ql (Bld)PRESENT *NA* (10/26/23 2:48 PM)Invalid Interpretation CodeRemisol HemeMonocytes (Bld) [#/Vol] 0.4 E9/LNormal0.2 - 1.0 E9/LRemisol HemeMonocytes/100 WBC (Bld)4.6 %Normal4.0 - 14.0 %Remisol HemeNeutrophils (Bld) [#/Vol]5.9 E9/LNormal2.0 - 7.5 E9/LRemisol HemeNeutrophils/100 WBC (Bld)64.1 %Ekfbmf43.0 - 75.0 %Remisol HemeOvalocytes LM Ql (Bld)PRESENT *NA* (10/26/23 2:48 PM)Invalid Interpretation CodeRemisol HemePlatelet mean volume (Bld) [Entitic vol]7.4 fLNormal6.4 - 10.8 fLRemisol HemePlatelets (Bld) [#/Vol] 331.0 E9/GAddwwr923.0 - 500.0 E9/LRemisol HemeRBC (Bld) [#/Vol]4.8 E12/LNormal 4.3 - 5.9 E12/LRemisol HemeRBC size Nom (Bld)SEE MORPHOLOGY *NA* (10/26/23 2:48 PM)Invalid Interpretation CodeRemisol HemeWBC corrected for nucl RBC Auto (Bld) [#/Vol]9.2 E9/LNormal4.0 - 11.0 E9/LRemisol HemeIronon 10-26-2023 Iron [Mass/Vol]35 microgram/kJAnnarh08-824CoylyvAdena Pike Medical CenterComment on above:Performed By: #### [id number] #### [facility] [address], [place] [address]Qopp Saturationon 10-49-9737Suwk binding capacity [Mass/Vol]367 microgram/fGVhferm281-749MlbgokAdena Pike Medical CenterComment on above:Performed By: #### [id number] #### [facility] [address], [place] [address]Dwru saturation [Mass fraction]10 %Wbb05-56IltcnwAdena Pike Medical CenterComment on above:Performed By: #### [id number] #### [facility] [address], [place] [address]Lowqpwhmtpcvi 39-56-1394Qvaczssypjs [Mass/Vol]262 mg/dLNormal 200-370Fisher [facility]ron Medical CenterComment on above:Performed By: #### [id number] #### [facility] [address] [place], [place] [address]dSLUxh 69-80-8042iDNY70 mL/min/1.73 u5Kkhlba>=59Fisher [facility]cy Medical CenterComment on above:Order Comment: Order added by Discern Expert. Performed By: #### [id number] #### [facility] [address], [place] [address]Updhdbv [Mass/volume] in Serum or PlasmaOrdered By: Brandon Juares on 28-10-6911Oobphfy [Mass/Vol]9.0 mg/dLNormal8.6-10.3FKettering Health DaytonComment on above:Performed By: #### CA, [id number], TSH3, T3T, T4T #### [place] [id number] USAParathyrin.intact [Mass/volume] in Serum or PlasmaOrdered By: Brandon Juares on 69-91-8623Xafxyucjko.intact [Mass/Vol]97.1 pg/fLPmvw74-61 [facility] HospitalParathyroid Hormone [place] 10-25-2023 Parathyroid Hormone Fmjihe60.1 pg/tDGvcb38-73Iyq Count Includes [facility] Comment on above:Result Comment: PERFORMED BY: [place] [id number] PATHOLOGIST REJECT OPENER AND FILLER KIRSTEN CHOW M.D.Performed By: #### PTH #### [facility] [address] [id number] USAThyrotropin [Units/volume] in Serum or PlasmaOrdered By: Brandon Juares on 15-74-0611LRI Qn4.38 m[IU]/LNormal0.45-5.33Pomerene HospitalComment on above:Performed By: #### CA, [id number], TSH3, T3T, T4T #### [address] [address] USAThyroxine (T4) [Mass/volume] in Serum or PlasmaOrdered By: Brandon Juares on 29-42-8715S8 [Mass/Vol]7.13 ug/dLNormal5.39-11.82Pomerene HospitalComment on above:Performed By: #### CA, [id number], TSH3, T3T, T4T #### [facility] [address] [place] [address] USATriiodothyronine (T3) Totalon 11-51-9704Qolwouwhsnzphfsy (T3) Total0.58 ng/mLLow0.87-1.78The Count Includes [facility] Physician Reg[facility] MeridianComment on above: Performed By: #### CA, [id number], TSH3, T3T, T4T #### [facility] [address] [place] [address] USAVitamin D 25 Hydroxy Totalon 70-24-2630Qtzyxji D 25 Hydroxy Total35.1 ng/bLKvzalr26-826Vhb Count Includes [facility] Physician Regency MeridianComment on above:Result Comment: VITAMIN D STATUS 25(OH)VITAMIN D RANGE (ng/mL) Deficient <20 Insufficient 20 to <30 Sufficient 30 to 100 Reference: Joby Galicia, Olesya DOWLING, et al. Evaluation,treatment, and prevention of vitamin D deficiency; an Endocrine Society clinical practice guideline. JCEM. 2010; 96(7):1911-30. PERFORMED BY: [place] [id number] PATHOLOGIST REJECT OPENER AND FILLER KIRSTEN CHOW M.D.Performed By: #### CA, [id number], TSH3, T3T, T4T #### [address] [address] USAVitamin D+Metabolites [Mass/volume] in Serum or Plasma Ordered By: Brandon Juares on 13-48-3854Gndnsmw D+Metabolites [Mass/Vol]35.1 ng/qJ93-250PahjonvbePomerene HospitalComment on above:VITAMIN D STATUS 25(OH)VITAMIN D RANGE (ng/mL) Deficient <20 Insufficient 20 to <92Fnebhmmken26 to 100Reference: Joby Galicia, Olesya DOWLING, et al. Evaluation,treatment, and prevention of vitamin D deficiency; an Endocrine Society clinical practice guideline. JCEM. 2010; 96(7):1911-30.SURGICAL PATHOLOGY REFERENCE LAB CONSULTon 78-59-6278MGCA REPORTGrand Lake Joint Township District Memorial Hospital on above:Order Comment: Specimen Type: FORMALIN-FIXED PARAFFIN- EMBEDDED TISSUE SPECIMEN [facility]ing Facility[facility] Address: [address] [place], [place] [address]Result Comment: Surgical Pathology Report Case: [id number] Authorizing Provider: Nilesh Heck, Collected: 10/10/2023 10:43 PM Ordering Location: [facility] Received: 10/10/2023 10:43 PM [facility] Pathologist: Rachel Pereyra MD Specimen: Slide(s), 6 SLIDES [id number] By: #### [id number] #### [facility] CLIA [id number] [address] [place] [address] [place] OF AMERICACLINICAL HISTORYCONSULT REQUESTEDNoSt. Rita's Hospital on above:Order Comment: Specimen Type: FORMALIN-FIXED PARAFFIN-EMBEDDED TISSUE SPECIMEN Ordering Facility: [facility] Address: [address] [place], [place] [address]Performed By: #### [id number] #### [facility] CLIA [id number] [address] [place] [address] [place] OF AMERICADIAGNOSIS COMMENTThank you for sharing this case. We would classify the 1.9 cm nodule with variably sized thyroid follicles within the spectrum of thyroid follicular nodular disease. No nuclear changes of papillary thyroid carcinoma is appreciated. Select slides were reviewed by my colleague, Dr. Vida Mack and he agrees with the interpretation.[facility] on above:Order Comment: Specimen Type: FORMALIN-FIXED PARAFFIN-EMBEDDED TISSUE SPECIMEN Ordering Facility[facility] Address: [address] [place], [place] [address]Performed By: #### [id number] #### [facility] CLIA [id number] [address] [place] [address] [place] STATES OF AMERICAFINAL DIAGNOSISNormal [facility] on above:Order Comment: Specimen Type: FORMALIN-FIXED PARAFFIN-EMBEDDED TISSUE SPECIMEN Ordering Facility[facility] Address: [address] [place], [place] [address]Result Comment: A. 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 - Intrathyroidal parathyroid gland tissue, 0.1 cm. Performed By: #### [id number] #### [facility] CLIA [id number] [address] [place] [address] PERFORMING LABNormal [facility] on above:Order Comment: Specimen Type: FORMALIN-FIXED PARAFFIN-EMBEDDED TISSUE SPECIMEN Ordering Facility[facility] Address: [address] [place], [place] [address]Result Comment: Diagnostic interpretation performed at [facility], [address] [place] [address] CLIA# [id number] Bariatric Nurse: Asael Clarke M.D.Performed By: #### [id number] #### [facility] CLIA [id number] [address] [place] [address] 20-69-2448PWzxszioa: [id number] Received: 10/05/23 Status: MOY Castaneda Num: [id number] Spec Type: Surgical Subm Dr: Brandon Juares DO Tissues: A THYROID - Lobe (RIGHT THYROID LOBE AND ISTHM) Procedures: HE/7, Gross/Micro L5 Age/ Patient Sex Location Account Attending Physician Morro Maloney 38/F AMBREEN [id number] Brandon Juares DO SPEC NUM: [id number] RECD: 10/05/23 STATUS: MOY CASTANEDA NUM: [id number] PEGGY: 10/05/23- SUBM DR: Brandon Juares DO ENTERED: 10/05/234 [facility] DR: [facility] SPEC TYPE: Surgical DEPT: S ENTERED BY: [id number] RECV BY: [id number] ORDERED: ABBYAdri Gross/Micro L5 ORDERED: , Gross/Micro L5 Supplemental Report Addendum 1 Entered: 10/11/23 This case was sent to [facility] for consultation. 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 Intrathyroidal parathyroid gland tissue, 0.1 cm. Please see attached consultation report from [facility] for diagnostic details. Addendum Signed (signature on file) Nilesh Eckert MD 10/11/23 1547 Pathological Diagnosis Preliminary report Nodule, right thyroid lobe, hemithyroidectomy: Atypical thyroid neoplasm. Pending external consultation. Specimen: [id number] Received: 10/05/23 Status: MOY Castaneda Num: [id number] Spec Type: Surgical Subm Dr: Brandon Juares DO Tissues: A THYROID - Lobe (RIGHT THYROID LOBE AND ISTHM) Procedures: , Gross/Micro L5 Patient: Morro Maloney [id number] (Continued) Specimen: [id number] Received: 10/05/23 (Continued) Signed (signature on file) Nilesh Eckert MD 10/06/23 1712 Specimen: [id number] Received: 10/05/23 Status: MOY Castaneda Num: [id number] Spec Type: Surgical Subm Dr: Brandon Juares DO Tissues: A THYROID - Lobe (RIGHT THYROID LOBE AND ISTHM) Procedures: Martha GOINS/Kym L5 Patient: Morro Maloney [id number] (Continued) Specimen: [id number] Received: 10/05/23 (Continued) Clinical Information Thyroid nodule [...] thyroid parenchyma is red-brown, beefy and unremarkable. Nonprofit Financial Controller sections are sequentially submitted from superior to inferior in A1?A6 as follows: A1: Normal-appearing parenchyma A2: Hemorrhagic cystic nodule A3-A6: Rubbery cyst (A6-following decalcification) CPT Codes 26524 Specimen: [id number] Received: 10/05/23 Status: MOY Castaneda Num: [id number] Spec Type: Surgical Subm Dr: Brandon Juares DO Tissues: A THYROID - Lobe (RIGHT THYROID LOBE AND ISTHM) Procedures: , Gross/Micro L5 Patient: Morro Maloney [id number] (Continued) Signed (signature on file) Nilesh Eckert MD 10/06/[address] [place] [address] Physician GroupBasic Metabolic Panelon 71-00-7314RSY/1.73 sq M.predicted MDRD (S/P/Bld) [Vol rate/Area]mL/min/{1.73_m2} NormalThe Count Includes [facility] Physician GroupComment on above:Performed By: #### TSH3, BMP #### [place] [address] USACalcium [Mass/volume] in Serum or PlasmaOrdered By: Brandon Juares on 01-84-3175Adzgvrt [Mass/Vol]8.9 mg/dLNormal8.6-10.3FKettering Health DaytonComment on above:Performed By: #### TSH3, BMP #### [facility] [address] [place] [address] USACarbon dioxide, total [Moles/volume] in Serum or Plasma Ordered By: Brandon Juares on 28-57-8737BB7 [Moles/Vol]25.8 mmol/LNormal 21.0-31.0Pome[facility] HospitalComment on above:Performed By: #### TSH3, BMP #### [facility] [address] [place] [address] USAChloride [Moles/volume] in Serum or PlasmaOrdered By: Brandon Juares on 65-26-4054Srgstjhp [Moles/Vol]103 mmol/VOhhstk15-949QfhpixbmkPomerene HospitalComment on above:Performed By: #### TSH3, BMP #### [facility] [address] [place] [address] USACreatinine [Mass/volume] in Serum or PlasmaOrdered By: Brandon Juares on 46-41-9674Otrxqulsap [Mass/Vol]0.99 mg/dLNormal0.60-1.20 P[facility] HospitalComment on above:Performed By: #### TSH3, BMP #### [facility] [address] [address] USAECG 12 lead ECGon 47-80-2090LXI 12 lead ECGDILEY RIDGE [facility] Main [place] [address] [place] [address] Electrocardiograph Report Signed Patient: Morro Maloney MR#: [id number] 8 : 1985 Acct:[id number] Age/Sex: 38 / F ADM Date: 09/26/23 Loc: Room: Type: [facility] Attending Dr: Brandon Juares DO Ordering Provider: [...] MUS Signed By Sharon Bagley DO 4 1900[facility] Physician GroupGlucose [Mass/volume] in Serum or PlasmaOrdered By: Brandon Juares on 61-25-1492Uulvntd [Mass/Vol]87 mg/dLNormal 70-100Pomerene HospitalComment on above:ADA recommended reference rangeRandom Glucose Reference Range is dependent on time and content of last meal. Glucose of more than 200 mg/dL in a nonstressed, ambulatory subject supports the diagnosisof Diabetes Mellitus.Result Comment: Random Glucose Reference Range is dependent on time and content of last meal. Glucose of more than 200 mg/dL in a nonstressed, ambulatory subject supports the diagnosis of Diabetes Mellitus. ADA recommended reference rangePerformed By: #### TSH3, BMP #### [place] [address] USANo Panel InformationOrdered By: Brandon Juares on 16-66-7485Ecmhtolvf GFR (CKD-EPI)> 60.0 mL/MinPomerene Hospital Pharmacy Creatinine Clearance (ChemN/[facility] Parathyrin.intact [Mass/volume] in Serum or PlasmaOrdered By: Brandon Juares on 17-29-2418Axyfzcimov.intact [Mass/Vol]102.0 pg/bZSmvd96-93BekusfeqxPomerene HospitalParathyroid Hormone Intacton 53-72-6768Hcpggkeleng Hormone Intact 102.0 pg/aKJrdx42-25Qmz [facility] Physician GroupComment on above:Result Comment: PERFORMED BY: [place] [address] PATHOLOGIST REJECT OPENER AND FILLER KIRSTEN CHOW M.D.Performed By: #### PTH #### [facility] [address] [place] [address] USAPotassium [Moles/volume] in Serum or PlasmaOrdered By: Brandon Juares on 43-49-5578Albssangv [Moles/Vol]4.4 mmol/LNormal3.5-5.1 [facility] HospitalComment on above:Performed By: #### TSH3, BMP #### [facility] [address] [place] [address] USASerum or plasma anion gap determinationOrdered By: Brandon Juares on 60-89-7410Dbyib gap [Moles/Vol]10.6 mmol/LNormal6.0-15.0 [facility] HospitalComment on above:Performed By: #### TSH3, BMP #### [place] [address] USASodium [Moles/volume] in Serum or PlasmaOrdered By: Brandon Juares on 30-09-9946Gkrnmi [Moles/Vol]135 mmol/ZBud231-869NgivmtceePomerene HospitalComment on above:Performed By: #### TSH3, BMP #### [place] [address] USAThyrotropin [Units/volume] in Serum or PlasmaOrdered By: Brandon Juares on 42-07-2761EEP Qn1.49 m[IU]/LNormal0.45-5.33P[facility] HospitalComment on above:Result Comment: PERFORMED BY: [place] [address] PATHOLOGIST REJECT OPENER AND FILLER KIRSTEN CHOW M.D.Performed By: #### TSH3, BMP #### [place] [address] USAUrea nitrogen [Mass/volume] in Serum or PlasmaOrdered By: Brandon Juares on 06-28-1181Dsjk nitrogen [Mass/Vol]15 mg/dLNormal7-25Pomerene HospitalComment on above:Performed By: #### TSH3, BMP #### [place] [id number] [facility]Cl[facility]on 09-21-2023 Gastroenterology Office/Clinic NoteGastroenterology Office/Clinic Note Chief Complaint follow up to [...] No qualifying data Procedure/Surgical History Colonoscopy (09/05/2023), Esophagogastroduodenoscopy (09/05/2023), Appendectomy, delivery,Cholecystectomy, Gastric sleeve, Parotidectomy. Medications Colace, 200 mg, [...] Recorded SARS-CoV-2 (COVID-19) mRNA BNT-162b2 vax 03/12/2020 RecordedNormDoctors HospitalComment on above:Result Comment: Electronically Signed By: Vinay INGRAM, Stefan Martinez\.br\Date and Time Signed: 09/20/2414:30 EDTSurgical Pathology Reporton 08-16-2813Bptnnwvy Pathology ReportPremier Health Miami [facility] Hospital North [address] [place] [address]- Surgical Pathology Report Collected Date/Time: 09/05/2023 13:21 EDT Pathologist: Jak Bolton MD Received Date/Time: 09/05/2023 14:12 EDT Vinay INGRAM, [...] is entirely submitted in one cassette. (DC) DC:[facility] Microscopic Description A&B: Microscopic examination performed unless gross only specified. The use of one or more reagents in the above tests is regulated as an analyte specific reagent (ASR). The test or tests are ordered following initial H&E microscopic examination. The performance characteristics were determined by the [facility]. They have not been cleared or approved by the US Food and Drug Administration. The FDA has determined that such clearance or approval is not necessary. These tests are used for clinical purposes. They should not be regarded as investigational or for research. Appropriate positive and negative controls are performed and are acceptable. [facility]. [facility] HospitalComment on above:Performed By: #### [id number] #### [facility] [address] [place], [place] [address]Hhch OR Intraoperative Recordon 34-48-6499Nkfr OR Intraoperative RecordMain OR Intraoperative Record IntraOp Document Type FT Summary Primary Physician: Stefan Mclean MD Finalized Date/Time: 09/07/23 14:37:49 Pt. Name: MORRO MALONEY/Sex: 1985 Female Med Rec #: [id number] Physician: Stefan Mclean MD Financial #: [id number] Pt. Type: O Room/Bed: / Admit/Disch: 09/05/23 12:46:40 - 09/05/23 23:59:59 Institution: Case Times FT Entry 1 Patient Times In Room 09/05/23 13:05:00 Out Room 09/05/23 13:32:00 Procedure Times Start 09/05/23 13:11:00 Stop 09/05/23 13:27:00 Anesthesia Times Start 09/05/23 13:05:00 Stop 09/05/23 13:32:00 Time at [facility] 09/05/23 13:20:00 Last Modified By: Cinthya Fatima RN 09/05/23 13:32:28 General Comments: 1314-EGD completed/AW RN 1317-Colonoscopy started/AW RN 09/07/23 Chart opened to review and send charges LRoth CSFA Case Attendance FT Entry 1 Entry 2 Entry 3 Case Attendee Pipe Springer MD, Cinthya Vera RN Role Performed Anesthesiologist Surgeon - Primary Egg Processor - Primary Freezer Person Time In 09/05/23 13:05:00 09/05/23 13:05:00 09/05/23 13:05:00 Time Out 09/05/23 13:32:00 09/05/23 13:32:00 09/05/23 13:32:00 Procedure EGD AND COLONOSCOPY(.) EGD AND COLONOSCOPY(.) EGD AND COLONOSCOPY(.) Comments supervising Last Modified By: Akua BADILLO, Cinthya Fatima RN, Cinthya Fatima RN, Cinthya 09/05/23 13:32:29 09/05/23 13:32:29 09/05/23 13:32:29 Entry 4 Entry 5 Case Attendee Bismark Swan Kirstyn K Role Performed Scrub - Primary Staff - Other Time In 09/05/23 13:05:00 09/05/23 13:05:00 Time Out 09/05/23 13:32:00 09/05/23 13:32:00 Procedure EGD AND COLONOSCOPY(.) EGD AND COLONOSCOPY(.) Comments help in room Last Modified By: Akua BADILLO, Cinthya Fatima RN, Cinthya 09/05/23 13:32:29 09/05/23 13:32:29 Perioperative Protocols FT [...] Pipe Springer Given Participants Vinay Ozuna MD, Akua Baker RN, Sosa Mendes Micala E, Miles, Kirstyn K [...] biopsies. COLONOSCOPY Primary Procedure Yes Primary Surgeon Stefan Mclean MD Start 09/05/23 13:11:00 Stop 09/05/23 13:27:00 Anesthesia [...] hernia. Colonoscopy-internal hemorrhoids Last Modified By: Cinthya Fatmia RN 09/05/23 13:37:48 Post-Care Text: The patient is free from signs and symptoms of infection Skin Assessment (Pre Procedure) FT Pre-Care Text: Implements protective measures to prevent skin/ tissue injury due to thermal or mechanical sources Evaluates for signs and symptoms of physical injury to skin and tissue Entry 1 Skin Integrity Intact, [place], Warm, and Skin Abnormality No Dry Outcomes Met? Yes Last Modified By: Cinthya Fatima RN 09/05/23 13:18:54 Post-Care Text: The patient is free from signs and symptoms of injury caused by extraneous objects Patient Positioning FT Pre-Care Text: Identifies physical alterations that require additional precautions for procedure-specific (more content not included)...[facility] HospitalDischarge Instructionson 07-96-0055Siknllkrq InstructionsDischarge Instructions MORRO MALONEY :1985 Visit Date:09/05/2023 Inpatient Discharge Instructions Your Care Team Admitting Physician - Stefan Mclean MD Referring Physician - Stefan Mclean MD Reason [...] 100 mg Tab) Procedure History Colonoscopy (09/05/2023), Esophagogastroduodenoscopy (09/05/2023), Appendectomy, delivery,Cholecystectomy, Gastric sleeve, Parotidectomy. What to do next Instructions From Your Doctor No qualifying data available. New Follow Up Appointments after Discharge Follow Up with Stefan Mclean MD, [facility], [facility] When: Comments: Call for any problems. [...] on [facility] Your doctor may also give you [...] Document Re-Released: 08/01/2006 ExitCare? Patient Information ?2009 [employer] Portal. Hemorrhoids Hemorrhoids are swollen veins that may [...] the causes? This cond (more content not included)...[facility]. Charles HospitalComment on above:Result Comment: Electronically Signed By: Veda Narayanan\Date and Time Signed: 09/05/23 13:53 EDTEGDon 73-59-3546QfbxhzhvlcilwzxmcokopygxbrPQX Patient: MORRO MALONEY Age: 38 years Sex: Female : 1985 Associated Diagnoses: None Author: Stefan Mclean MD Pre-Procedure Procedure Date 09/05/2023 13:30:00 . Procedure Type: Esophagogastroduodenoscopy with biopsy. Procedure provider Performed by Stefan [...] q4hr for wheezing, 18 gram, Refill(s) 5, [facility]/pharmacy #[id number], 161, cm, 10/18/22 14:05:00 EDT, Height/Length Dosing, 105.6, kg, 10/18/22 13:58:00 EDT, Weight Dosing folic acid 1 mg Tab: 1 mg = 1 tab(s), Oral, Daily, # 90 tab(s), Refills(s) 4, Pharmacy: [facility]/pharmacy #[id number], 161, cm, 08/15/23 11:32:00 [...] 1 tab(s), Oral, Daily, Refills(s) 0, Depression Anticoagulant/antiplatelet None. ASA Classification: Class II. . Monitoring: See anesthesia record. . Procedure The procedure was performed in the hospital. See anesthesia record for sedation given during procedure. The patient was positioned starting in the left lateral decubitus position and with safety measures. Endoscope type used was an adult- size, introduced orally, advanced to the 3rd portion [...] Normal duodenum. Biopsies obtained Images Procedure images: Rec1_hd_video_2023 948.jpg Rec1_hd_video_2023 148.jpg Rec1_hd_video_2023__T12_20_18_664.jpg Rec1_hd_video__T1_20_33_280.jpg Rec1_hd_video__T1_21_27_512.jpg Rec1_hd_video__T1_22_36_751.jpg Rec1_hd_video_2023__T12_22_57_901.jpg . Post-Procedure Complications: none. Estimated blood loss: minimal. Specimens: sent to pathology. Devices/ implants: none left in place. Impression and Plan small hiatal hernia Irregular Z-line Evidence of previous gastric sleeve Gastropathy Recommendations: -Resume previous diet -Resume home medications -Await pathology results, follow in GI clinic in 1-2 after dischargeSt. Charles HospitalComment on above:Other Comment: Missing Attachment - attachment storage system not supported [id number] Can be viewed in source system Missing Attachment - attachment storage system not supported [id number] Can be viewed in source systemMissing Attachment - attachment storage system not supported [id number] Can be viewed in source systemMissing Attachment - attachment storage system not supported [id number] Can be viewed in source systemMissing Attachment - attachment storage system not supported [id number] Can be viewed in source systemMissing Attachment - attachment storage system not supported [id number] Can be viewed in source systemMissing Attachment - attachment storage system not supported [id number] Can be viewed in source systemMain OR PACU I Record on 42-91-6863Sujj OR PACU I RecordMain OR PACU I Record PACU Phase I Document Type FT Summary Primary Physician: Stefan Mclean MD Finalized Date/Time: 09/05/23 14:28:48 Pt. Name: MORRO MALONEY/Sex: 1985 Female Med Rec #: [id number] Physician: Stefan Mclean MD Financial #: [id number] Pt. Type: O Room/Bed: / Admit/Disch: 09/05/23 [...] individualized perioperative plan of care The patient's rightto privacy is maintained The patient's value system, [...] with or improved from baseline levels established preoperativelyThe patient's cardiovascular status is consistent with or improved from baseline levels established preoperatively The patient's cardiovascular status is consistent with or improved from baseline levels established preoperatively The patient demonstrates and/or reports adequate pain control throughout the perioperative period The patient received appropriate medication(s), safely administered during the perioperativeperiod Acuity Level PACU I FT Entry 1 Start Time 09/05/23 13:35:00 Stop Time 09/05/23 14:05:00 Acuity Level Acuity Level I Last Modified By: Veda Narayanan I 09/05/23 14:28:41 Finalized By: Veda Narayanan I Document Signatures Signed By: Veda Narayanan I 09/05/23 14:28NomonicoAdena Pike Medical CenterMain OR Preoperative Recordon 83-32-1024Wbhl OR Preoperative RecordMain OR Preoperative Record Holding Area Document Type FT Summary Primary Physician: Stefan Mclean MD Finalized Date/Time: 09/05/23 12:58:13 Pt. Name: CHIARA MORRO Sara Escalona/Sex: 1985 Female Med Rec #: [id number] Physician: Stefan Mlcean MD Financial #: [id number] Pt. Type: O Room/Bed: / Admit/Disch: 09/05/23 [...] or her perioperative plan of care The patient'sright to privacy is maintained Surgery Checklist FT [...] Signatures Signed By: Elizabeth Christina RN 09/05/23 12:58NormalAdena Pike Medical CenterIgA, Quant.on 87-38-2742WkZ [Mass/Vol]85 mg/uHOko11-748OrfldxAdena Pike Medical Center Comment on above:Result Comment: Performed at: [facility] [address] [place], [place] [id number] PhD Susan CadetPerformed By: #### [id number] #### [facility] [address] [place], [place] [address]T-EM IGGon 20-56-8774sGH IgG Qn (S)2 unit/mLInvalid Interpretation Code0-5FPremier Health Miami Valley Hospital NorthComment on above:Result Comment: Negative 0 - 5 Weak Positive 6 - 9 Positive >9 Performed at: [facility] [id number] PhD Susan CadetPerformed By: #### [id number] #### [facility] [address] [place], [place] [address]Miywkfrrwm Visit Summaryon 65-32-7948Hxrdrmsieu Visit Summary Ambulatory Visit Summary MORRO MALONEY :1985 Visit Date:08/16/2023 Ambulatory [...] Order for future visit, Lab Collect, Iron deficiencyanemiaInvalid Interpretation CodeFatigue, Print Label By Order Location\.br\ Someone Will Contact You Regarding These Appointments\.br\ [facility] [place] Referral, ENT, Dr. Clarke, Needs biopsy of thyroid nodule, 08/29/23 7:57:00 EDT, Thyroid noduleAdena Pike Medical CenterCBC w/ Auto Diffon 27-63-7214Wshnttzkfmeh Ql (Bld)PRESENTInvalid Interpretation Code Ad[facility]ike Medical CenterComment on above:Performed By: #### [id number] #### [facility] [address] [place], [place] [address]Uqaaalmit/100 WBC (Bld)0.4 %Normal0.0-2.0Adena Pike Medical CenterComment on above:Performed By: #### [id number] #### [facility] [address] [place], [place] [address]Ciwnzqkja/Leukocytes Auto (Bld) [Pure # fraction]0.0 E9/LNormal 0.0-0.2FPremier Health Miami Valley Hospital NorthComment on above:Performed By: #### [id number] #### [facility] [address] [place], [place] [address]Hzstspdsvaj (Bld) [#/Vol]0.0 E9/LNormal0.0-0.5FPremier Health Miami Valley Hospital NorthComment on above:Performed By: #### [id number] #### [facility] [address] [place], [place] [address]Gpdrnfnwywy/100 WBC (Bld)0.0 %Normal0.0-8.0A[facility] Pike Medical CenterComment on above:Performed By: #### [id number] #### [facility] [address], [place] [address]Xgbjbqfwulq distribution width (RBC) [Ratio]28.2 %High10.9-14.2 [facility] CenterComment on above:Performed By: #### [id number] #### [facility] [address], [place] [address]Lmyqfloizj (Bld) [Volume fraction]34.4 %Sogait40.0-46.0[facility] Medical CenterComment on above:Performed By: #### [id number] #### [facility] [address], [place] [address]Rcqfellrhp (Bld) [Mass/Vol]10.6 g/dLLow12.0-16.0[facility] Medical CenterComment on above:Performed By: #### [id number] #### [facility] [address] [place] [address] 25393Cduodhekmps Auto Ql (Bld)PRESENTInvalid Interpretation Code [facility] CenterComment on above:Performed By: #### [id number] #### [facility] [address] [place] [address] 61822Drrzyppvvfn (Bld) [#/Vol]2.8 E9/LNormal1.0-4.0[facility] Medical CenterComment on above:Performed By: #### [id number] #### [facility] [address] [place] [address] 57590Mehjaiacfnu/100 WBC (Bld)31.5 %Fmjlvu27.0-50.0[facility] Medical CenterComment on above:Performed By: #### [id number] #### [facility] [address] [place] [address] 57381QDO (RBC) [Entitic mass]22.7 pgLow27.0-34.0[facility] Medical CenterComment on above:Performed By: #### [id number] #### [facility] [address] [place] [address] 36479SKDU (RBC) [Mass/Vol]30.8 g/dLLow31.4-36.0[facility] Medical CenterComment on above:Performed By: #### [id number] #### [facility] [address] [place] [address] 26965UCO (RBC) [Entitic vol]73.7 fLLow80.0-100.0[facility] Medical CenterComment on above:Performed By: #### [id number] #### [facility] [address] [place] [address] 14586Yunbkknpuh Ql (Bld)PRESENTInvalid Interpretation CodeAdena Pike Medical CenterComment on above:Performed By: #### [id number] #### [facility] [address] [place] [address] 18356Trjdmdjii (Bld) [#/Vol]0.6 E9/LNormal0.2-1.0[facility] CenterComment on above:Performed By: #### [id number] #### [facility] [address] [place] [address] 14777Orvtmhhimro (Bld) [#/Vol]5.3 E9/LNormal2.0-7.5FPremier Health Miami Valley Hospital NorthComment on above:Performed By: #### [id number] #### [facility] [address] [place] [address] 11552Jkurinpmnak/100 WBC (Bld)60.9 %Pijoir97.0-75.0[facility] Medical CenterComment on above:Performed By: #### [id number] #### [facility] [address] [place] [address] 29883Qsuemwyf mean volume (Bld) [Entitic vol]7.6 fLNormal6.4-10.8 [facility] CenterComment on above:Performed By: #### [id number] #### [facility] [address] [place] [address] 01684Omkfjaqlg (Bld) [#/Vol]316.0 E9/LNaqhjo988.0-500.0[facility] Medical CenterComment on above:Performed By: #### [id number] #### [facility] [address] [place] [address] 53293XJL (Bld) [#/Vol]4.7 E12/LNormal4.3-5.9[facility] Medical CenterComment on above:Performed By: #### [id number] #### [facility] [address] [place] [address] 72441YMB size Nom (Bld)SEE MORPHOLOGYInvalid Interpretation Code [facility] CenterComment on above:Performed By: #### [id number] #### [facility] [address], [place] [address]MCI corrected for nucl RBC Auto (Bld) [#/Vol]8.7 E9/LNormal 4.0-11.0[facility] Medical CenterComment on above:Performed By: #### [id number] #### [facility] [address], [place] [address]Seeocvnprjfzhxqk Office/Clinic Noteon 09-01-2023 Gastroenterology Office/Clinic NoteGastroenterology Office/Clinic Note Chief Complaint ref by oncology- [...] fL Low (08/12/23) Chloride: 104 mmol/L (08/12/23) [place] Absolute: 0.5 E9/L (08/12/23) CO2: 24 mmol/L (08/12/23) [place] Auto: 6.7 % (08/12/23) Creatinine: 1 mg/dL [...] Known Allergies Social H (more content not included)...NormalFisher Mercy Medical CenterComment on above:Result Comment: Electronically Signed By: Vinay INGRAM, Stefan Patton.br\Date and Time Signed: 08/31/2412:55 EDTHEMATOLOGYOrdered By: SYSTEM SYSTEM on 09-32-1434Okhcqksugnaq Ql (Bld)PRESENT *NA* (09/01/23 2:49 PM)Invalid Interpretation CodeRemisol HemeBasophils/100 WBC (Bld) 0.4 %Normal0.0 - 2.0 %Remisol HemeBasophils/Leukocytes Auto (Bld) [Pure # fraction]0.0 E9/LNormal0.0 - 0.2 E9/LRemisol HemeEosinophils (Bld) [#/Vol]0.0 E9/LNormal0.0 - 0.5 E9/LRemisol HemeEosinophils/100 WBC (Bld)0.0 %Normal0.0 - 8.0 %Remisol HemeErythrocyte distribution width (RBC) [Ratio]28.2 %High10.9 - 14.2 %Remisol HemeHematocrit (Bld) [Volume fraction]34.4 %Pncmuj66.0 - 46.0 % Remisol HemeHemoglobin (Bld) [Mass/Vol]10.6 g/dLLow12.0 - 16.0 gm/dLRemisol Heme Hypochromia Auto Ql (Bld)PRESENT *NA* (09/01/23 2:49 PM)Invalid Interpretation CodeRemisol HemeLymphocytes (Bld) [#/Vol]2.8 E9/LNormal1.0 - 4.0 E9/LRemisol HemeLymphocytes/100 WBC (Bld)31.5 % Ttrotc50.0 - 50.0 %Remisol HemeMCH (RBC) [Entitic mass]22.7 pgLow27.0 - 34.0 pg Remisol HemeMCHC (RBC) [Mass/Vol]30.8 g/dLLow31.4 - 36.0 gm/dLRemisol HemeMCV (RBC) [Entitic vol]73.7 fLLow80.0 - 100.0 fLRemisol HemeMicrocytes Ql (Bld) PRESENT *NA* (09/01/23 2:49 PM)Invalid Interpretation CodeRemisol HemeMonocytes (Bld) [#/Vol] 0.6 E9/LNormal0.2 - 1.0 E9/LRemisol HemeMonocytes/100 WBC (Bld)7.2 %Normal4.0 - 14.0 %Remisol HemeNeutrophils (Bld) [#/Vol]5.3 E9/LNormal2.0 - 7.5 E9/LRemisol HemeNeutrophils/100 WBC (Bld)60.9 %Pqxnkj31.0 - 75.0 %Remisol HemePlatelet mean volume (Bld) [Entitic vol]7.6 fLNormal6.4 - 10.8 fLRemisol HemePlatelets (Bld) [#/Vol]316.0 E9/HVtawsg666.0 - 500.0 E9/LRemisol HemeRBC (Bld) [#/Vol]4.7 E12/L Normal4.3 - 5.9 E12/LRemisol HemeRBC size Nom (Bld)SEE MORPHOLOGY *NA* (09/01/23 2:49 PM)Invalid Interpretation CodeRemisol HemeWBC corrected for nucl RBC Auto (Bld) [#/Vol]8.7 E9/LNormal4.0 - 11.0 E9/LRemisol HemeConsenton [id number]#1.00Community [facility] HospitalCoding Summary.on 92-12-2229Iqpqlx Summary. BXHILfyl25ZLb3pGm+PGhlYWQ+TS5GOKPpA91igPXejE0wP9DBHKbADttaREQAKElGJaSwtfCkKS4pxG NjZXJu [file] m8M9CDRwfPzyx (more content not included)...[facility] Consent for Treatmenton 05-11-6600Euneizd for Treatment [id number]#1.00TIFFNormalAdena Pike Medical CenterErythropoiet Lvlon 21-66-7160Cnrmslotdwhtif (EPO) Qn51.2 mIU/mLHigh 2.6-18.5Fisher Mercy Medical CenterComment on above:Result Comment: [employer] DxI 800 Immunoassay System Values obtained with different assay methods or kits cannot be used interchangeably. Results cannot be interpreted as absolute evidence of the presence or absence of malignant disease. Performed at: [facility] [id number] PhD Susan CadetPerformed By: #### [id number] #### [facility] [address], [place] [address]Nrlbowtq Progress Noteon 90-32-4128Jnpzvvor Progress NoteChief Complaint Iron Deficiency; going over results, states had infusion last week. Diagnoses 1. 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) Iron deficiency anemia (D50.9: Iron deficiency anemia, unspecified) Ordered: folic acid, 1 mg = 1 tab(s), Oral, Daily, # 90 tab(s), Refills(s) 4, Pharmacy: [facility]/pharmacy #[id number], 161, cm, 08/15/23 11:32:00 EDT, Height/Length Dosing, 106.5, kg, 08/15/23 11:32:00 EDT, Weight Dosing CBC w/ Auto Diff Comprehensive Metabolic Panel Ferritin Folate Level [facility] Internal Ambulatory Referral Iron Level Iron Percent Saturation ONC Office Visit 20 Min Transferrin Other iron deficiency anemias (D50.8: Other iron deficiency anemias) Oncological History/ROS/PE/Assessment and Plan Morro is a 37yr old female with a history of iron deficiency anemia, asthma, thyroid cyst, low backpain, fatigue, elevated wbc count, spondylosis, elevated CK, elevated glucose, weight gain and shortness of breath. Surgical history includes gastric sleeve, appendectomy, , cholecystectomy,and parotidectomy. Medications include albuterol, docusate, eszopiclone, folic acid, Venofer, lamotrigine, lumateperone, and sertraline. She denies any personal history of cancer. Family cancer history includes her paternal grandmother with ovarian and cervical cancer, her maternal grandmother withlung cancer, and her maternal grandfather with prostate [...] needed. Follow-up With When Contact Information Jose LOZANO-KATT, Quyen Pozo, ONC [facility] [address] [place] [address] [phone] Additional Instructions: refer to GI to consider endoscopy for iron deficiency anemia.- if none in [place], refer here at [facility] folic acid 1mg daily- send 90 day supply with 4 refills [facility], cmp, iron studies, folate in 8wks follow-up in 8wks with [employer] Medications Caplyta 42 mg oral capsule, 42 [...] HR: 69 (Peripheral) RR (more content not included)...Normal [facility] w/ Auto Diffon 11-34-4938Hkocicpjysbd Ql (Bld) PRESENTInvalid Interpretation CodeGreg Mercy Medical CenterComment on above: Performed By: #### [id number] #### [facility] [address] [place] [address] 99[address]Qifsmjaal/100 WBC (Bld)0.2 %Normal0.0-2.0[facility]ike Medical CenterComment on above:Performed By: #### [id number] #### [facility] [address] [place] [address] 564[address]Xugokdowi/Leukocytes Auto (Bld) [Pure # fraction]0.0 E9/LNormal 0.0-0.2FPremier Health Miami Valley Hospital NorthComment on above:Performed By: #### [id number] #### [facility] [address], [place] [address]Kiulqqvaxsi (Bld) [#/Vol]0.0 E9/LNormal0.0-0.5FPremier Health Miami Valley Hospital NorthComment on above:Performed By: #### [id number] #### [facility] [address] [place] [address] 075[address]Atfvbzvhevj/100 WBC (Bld)0.0 %Normal0.0-8.0[facility] Medical CenterComment on above:Performed By: #### [id number] #### [facility] [address] [place] [address] 866[address]Jxwahudntze distribution width (RBC) [Ratio]24.6 %High10.9-14.2 [facility] CenterComharbor oaks hospital on above:Performed By: #### [id number] #### [facility] [address] [place] [address] 060[address]Wwanhkunaf (Bld) [Volume fraction]30.8 %Low34.0-46.0[facility] Medical CenterComment on above:Performed By: #### [id number] #### [facility] [address], [place] [address]Vmcxmmpntr (Bld) [Mass/Vol]9.4 g/dLLow12.0-16.0[facility] Medical CenterComment on above:Performed By: #### [id number] #### [facility] [address] [place] [address] 00764Fempvkgnipj Auto Ql (Bld)PRESENTInvalid Interpretation Code [facility] Medical CenterComment on above:Performed By: #### [id number] #### [facility] [address] [place] [address] 40[address]Aukkfhahoyd (Bld) [#/Vol]2.2 E9/LNormal1.0-4.0[facility] Medical CenterComment on above:Performed By: #### [id number] #### [facility] [address] [place] [address] 39597Fmpxqsxreid/100 WBC (Bld)30.8 %Elebnv11.0-50.0[facility] Medical CenterComment on above:Performed By: #### [id number] #### [facility] [address] [place] [address] 66650XHD (RBC) [Entitic mass]22.2 pgLow27.0-34.0[facility] Medical CenterComment on above:Performed By: #### [id number] #### [facility] [address] [place] [address] 727[address]YCUQ (RBC) [Mass/Vol]30.5 g/dLLow31.4-36.0[facility] Medical CenterComment on above:Performed By: #### [id number] #### [facility] [address] [place] [address] 20003QXI (RBC) [Entitic vol]72.7 fLLow80.0-100.0[facility] Medical CenterComment on above:Performed By: #### [id number] #### [facility] [address] [place] [address] 30438Zzmpebhen (Bld) [#/Vol]0.5 E9/LNormal0.2-1.0[facility] Medical CenterComment on above:Performed By: #### [id number] #### [facility] [address] [place] [address] 853[address]Coxvbiwjlkq (Bld) [#/Vol]4.5 E9/LNormal2.0-7.5FPremier Health Miami Valley Hospital NorthComment on above:Performed By: #### [id number] #### [facility] [address], [place] [address]Iwgxvzyktet/100 WBC (Bld)62.3 %Kymeum28.0-75.0[facility] Medical CenterComment on above:Performed By: #### [id number] #### [facility] [address], [place] [address]Dasladramw LM Ql (Bld)PRESENTInvalid Interpretation CodeAdena Pike Medical CenterComment on above:Performed By: #### [id number] #### [facility] [address], [place] [address]Wsthwifq455.0 E9/LIkfogt430.0-500.0[facility] Comment on above:Performed By: #### [id number] #### [facility] [address], [place] [address]Dydyvfrc mean volume (Bld) [Entitic vol]7.4 fLNormal6.4-10.8 [facility] Medical CenterComment on above:Performed By: #### [id number] #### [facility] [address], [place] [address]VKZ (Bld) [#/Vol]4.2 E12/LLow4.3-5.9[facility] Comment on above:Performed By: #### [id number] #### [facility] [address], [place] [address]DZO size Nom (Bld)SEE MORPHOLOGYInvalid Interpretation Code [facility] CenterComment on above:Performed By: #### [id number] #### [facility] [address], [place] [address]HAY corrected for nucl RBC Auto (Bld) [#/Vol]7.2 E9/LNormal 4.0-11.0[facility] Medical CenterComment on above:Result Comment: Results are consistent with previous pathologist reviewPerformed By: #### [id number] #### [facility] [address], [place] [address]DOLVIYRLNIsejvtk By: SYSTEM SYSTEM on 24-55-5724Syzmzzk [Mass/Vol]4.5 g/dLNormal3.3 - 5.0 gm/dLRemisol ChemAlbumin/Globulin [Mass ratio] 1.5 {ratio}Normal1.1 - 2.2Remisol ChemALP [Catalytic activity/Vol]92 [iU]/d Fankcd35 - 98 Int._Unit/LRemisol ChemALT No additional P-5'-P [Catalytic activity/Vol]10 [iU]/dNormal6 - 46 Int._Unit/LRemisol ChemAnion gap [Moles/Vol] 12 mmol/LNormal6 - 16 mEq/LRemisol ChemAST [Catalytic activity/Vol]19 [iU]/d Normal5 - 43 Int._Unit/LRemisol ChemBilirubin [Mass/Vol]0.4 mg/dLNormal0.0 - 1.1 mg/dLRemisol ChemCalcium [Mass/Vol]9.5 mg/dLNormal8.9 - 11.1 mg/dLRemisol Chem Chloride [Moles/Vol]104 mmol/AFlzakv250 - 111 mmol/LRemisol ChemCO2 [Moles/Vol] 24 mmol/HOaanvu58 - 31 mmol/LRemisol ChemCobalamin (Vitamin B12) [Mass/Vol]484 pg/tRCvbkpn38 - 1500 pg/mLRemisol ChemCreatinine [Mass/Vol]1.0 mg/dLNormal0.5 - 1.3 mg/dLRemisol PlfjhUMC32 mL/min/1.73 n3Gbhzjl>=59mL/min/1.73 a3Dpemuuq Chem Ferritin [Mass/Vol]99 ng/nXDwxxov68 - 307 ng/mLRemisol ChemFolate [Mass/Vol]6.2 ng/mLLow>=6.7ng/mLRemisol ChemGlobulin (S) [Mass/Vol]3.0 g/dLNormal1.4 - 4.0 gm/dLRemisol ChemGlucose [Mass/Vol]96 mg/sHNjumvw71 - 199 mg/dLRemisol ChemIron [Mass/Vol]40 ug/qYJiscfv87 - 153 mcg/dLRemisol ChemIron binding capacity [Mass/Vol]360 ug/zILvquox071 - 400 mcg/dLRemisol ChemIron saturation [Mass fraction]11 %Low20 - 50 %Remisol ChemPotassium [Moles/Vol]4.5 mmol/LNormal3.5 - 5.3 mmol/LRemisol ChemProtein [Mass/Vol]7.5 g/dLNormal6.0 - 7.8 gm/dLRemisol ChemSodium [Moles/Vol]135 mmol/AYyxzjt272 - 145 mmol/LRemisol ChemTransferrin [Mass/Vol]257 mg/jEUivpxv867 - 370 mg/dLRemisol ChemUrea nitrogen [Mass/Vol]18 mg/dLNormal5 - 21 mg/dLRemisol ChemUrea nitrogen/Creatinine [Mass ratio]18 mg/mg Kznfpa06 - 20Remisol ChemCMPon 74-93-4358Xvxhkuc [Mass/Vol]4.5 g/dLNormal3.3-5.0 [facility] Medical CenterComment on above:Performed By: #### [id number] #### [facility] [address], [place] [address]Xggicse/Globulin (S) [Mass conc ratio]1.4Nqbxcs5.1-2.2FPremier Health Miami Valley Hospital NorthComment on above:Performed By: #### [id number] #### [facility] [address], [place] [address]JAY [Catalytic activity/Vol]92 Int._Unit/ACkajbl07-17QzeuqnAdena Pike Medical CenterComment on above:Performed By: #### [id number] #### [facility] [address], [place] [address]PPI No additional P-5'-P [Catalytic activity/Vol]10 Int._Unit/L Normal6-46[facility] Medical CenterComment on above:Performed By: #### [id number] #### [facility] [address], [place] [address]Lxkaj gap [Moles/Vol]12 mmol/LNormal6-16[facility] Medical CenterComment on above:Performed By: #### [id number] #### [facility] [address], [place] [address]JJX [Catalytic activity/Vol]19 Int._Unit/LNormal5-43[facility] Medical CenterComment on above:Performed By: #### [id number] #### [facility] [address], [place] [address]Xwgxtvzbn [Mass/Vol]0.4 mg/dLNormal0.0-1.1FPremier Health Miami Valley Hospital NorthComment on above:Performed By: #### [id number] #### [facility] [address], [place] [address]Dfalrow [Mass/Vol]9.5 mg/dLNormal8.9-11.1FPremier Health Miami Valley Hospital NorthComment on above:Performed By: #### [id number] #### [facility] [address], [place] [address]Zdlhyxzc [Moles/Vol]104 mmol/KEuzkbd829-801EydtjlAdena Pike Medical CenterComment on above:Performed By: #### [id number] #### [facility] [address], [place] [address]YN9 [Moles/Vol]24 mmol/UGcvxsa98-18ArugebAdena Pike Medical Center Comment on above:Performed By: #### [id number] #### [facility] [address], [place] [address]Cowcqonomr [Mass/Vol]1.0 mg/dLNormal0.5-1.3FPremier Health Miami Valley Hospital NorthComment on above:Performed By: #### [id number] #### [facility] [address], [place] [address]Btkqmbyz (S) [Mass/Vol]3.0 g/dLNormal1.4-4.0[facility] Medical CenterComment on above:Performed By: #### [id number] #### [facility] [address], [place] [address]Qrrppit [Mass/Vol]96 mg/pAAdipib52-859DcmskiAdena Pike Medical CenterComment on above:Performed By: #### [id number] #### [facility] [address], [place] [address]Imvetfasq [Moles/Vol]4.5 mmol/LNormal3.5-5.3FPremier Health Miami Valley Hospital NorthComment on above:Performed By: #### [id number] #### [facility] [address], [place] [address]Klggzbt [Mass/Vol]7.5 g/dLNormal6.0-7.8[facility] Medical CenterComment on above:Performed By: #### [id number] #### [facility] [address], [place] [address]Sppyzy [Moles/Vol]135 mmol/WSuctxi406-525PizvzyAdena Pike Medical CenterComment on above:Performed By: #### [id number] #### [facility] [address] [place] [address]Mcou nitrogen [Mass/Vol]18 mg/dLNormal5-21[facility] Medical CenterComment on above:Performed By: #### [id number] #### [facility] [address] [place] [address]Zimp nitrogen/Creatinine [Mass ratio]18 No GujrtBaeqyq34-23 [facility] CenterComment on above:Performed By: #### [id number] #### [facility] [address] [place] [address]Wvhcrpp for Treatmenton 01-45-6624Emnxkyf for Treatment [id number]#1.00TIFFNormalAdena Pike Medical CenterFerritinon 22-22-5733Chiwzvrz [Mass/Vol]99 ng/jDSpdmxx70-169VhpwcwAdena Pike Medical CenterComment on above:Performed By: #### [id number] #### [facility] [address], [place] [address]Khfximfr 22-81-1945Zljilj [Mass/Vol]6.2 ng/mLLow>=6.7FPremier Health Miami Valley Hospital NorthComment on above:Performed By: #### [id number] #### [facility] [address] [place], [place] [address]WZWJHALNQBRndlfih By: SYSTEM SYSTEM on 91-44-0208Xhxhpqpgollm Ql (Bld)PRESENT *NA* (08/12/23 6:37 AM)Invalid Interpretation CodeRemisol HemeBasophils/100 WBC (Bld) 0.2 %Normal0.0 - 2.0 %Remisol HemeBasophils/Leukocytes Auto (Bld) [Pure # fraction]0.0 E9/LNormal0.0 - 0.2 E9/LRemisol HemeEosinophils (Bld) [#/Vol]0.0 E9/LNormal0.0 - 0.5 E9/LRemisol HemeEosinophils/100 WBC (Bld)0.0 %Normal0.0 - 8.0 %Remisol HemeErythrocyte distribution width (RBC) [Ratio]24.6 %High10.9 - 14.2 %Remisol HemeHematocrit (Bld) [Volume fraction]30.8 %Low34.0 - 46.0 % Remisol HemeHemoglobin (Bld) [Mass/Vol]9.4 g/dLLow12.0 - 16.0 gm/dLRemisol Heme Hypochromia Auto Ql (Bld)PRESENT *NA* (08/12/23 6:37 AM)Invalid Interpretation CodeRemisol HemeLymphocytes (Bld) [#/Vol]2.2 E9/LNormal1.0 - 4.0 E9/LRemisol HemeLymphocytes/100 WBC (Bld)30.8 % Tvmwof39.0 - 50.0 %Remisol HemeMCH (RBC) [Entitic mass]22.2 pgLow27.0 - 34.0 pg Remisol HemeMCHC (RBC) [Mass/Vol]30.5 g/dLLow31.4 - 36.0 gm/dLRemisol HemeMCV (RBC) [Entitic vol]72.7 fLLow80.0 - 100.0 fLRemisol HemeMonocytes (Bld) [#/Vol] 0.5 E9/LNormal0.2 - 1.0 E9/LRemisol HemeMonocytes/100 WBC (Bld)6.7 %Normal4.0 - 14.0 %Remisol HemeNeutrophils (Bld) [#/Vol]4.5 E9/LNormal2.0 - 7.5 E9/LRemisol HemeNeutrophils/100 WBC (Bld)62.3 %Begxfb30.0 - 75.0 %Remisol HemeOvalocytes LM Ql (Bld)PRESENT *NA* (08/12/23 6:37 AM)Invalid Interpretation CodeRemisol IfvbZzomrwfw430.0 E9/LNormal 150.0 - 500.0 E9/LRemisol HemePlatelet mean volume (Bld) [Entitic vol]7.4 fL Normal6.4 - 10.8 fLRemisol HemeRBC (Bld) [#/Vol]4.2 E12/LLow4.3 - 5.9 E12/L Remisol HemeRBC size Nom (Bld)SEE MORPHOLOGY *NA* (08/12/23 6:37 AM)Invalid Interpretation CodeRemisol HemeReticulocytes/100 RBC (Bld)5.1 %High0.5 - 2.2 %Remisol HemeWBC corrected for nucl RBC Auto (Bld) [#/Vol]7.2 E9/LNormal4.0 - 11.0 E9/LRemisol HemeComment on above:Result Comment: Results are consistent with previous pathologist reviewIronon 78-24-9248Iuhz [Mass/Vol]40 microgram/dSLrishk79-423WepwkbAdena Pike Medical CenterComment on above:Performed By: #### [id number] #### [facility] [address], [place] [address]Egbx Saturationon 25-98-5924Npke binding capacity [Mass/Vol]360 microgram/oMHzqfuv147-413QqcpecAdena Pike Medical CenterComment on above:Performed By: #### [id number] #### [facility] [address], [place] [address]Axut saturation [Mass fraction]11 %Mws29-73YhugihAdena Pike Medical CenterComment on above:Performed By: #### [id number] #### [facility] [address], [place] [address]Zambc Counton 76-07-1345Omyhllywsblql/100 RBC (Bld)5.1 %High 0.5-2.2[facility] Medical CenterComment on above:Performed By: #### [id number] #### [facility] [address], [place] [address]Exllihndzfcwg 23-81-6668Cplxqcfggms [Mass/Vol]257 mg/dLNormal 200-370A[facility] Medical CenterComment on above:Performed By: #### [id number] #### [facility] [address], [place] [address]Dgj B12on 50-54-3358Wdticfzmx (Vitamin B12) [Mass/Vol]484 pg/mL Umzgha28-2465LvprvmAdena Pike Medical CenterComment on above:Performed By: #### [id number] #### [facility] [address] [place] [address]dBLYmr 35-74-1536sCIA91 mL/min/1.73 u6Jbsaig>=59A[facility]ike Medical CenterComment on above:Order Comment: Order added by Discern Expert. Performed By: #### [id number] #### [facility] [address], [place] [address]Bwvhsw Summary.on 78-80-3159Vplhky Summary. HLGSVzkl88SNv0bEo+PGhlYWQ+NG1NJQKsY68ubMAorF8rD4YUIUhNTmpvYMMWMMfHGcPrmwCyLG3fzC NjZXJu [file] VShfI65wqQNrl (more content not included)...[facility] Coding Summary.on 66-17-1350Tqqfzx Summary. RLMGBmfd62EYx1xQd+PGhlYWQ+RF6LUOHoR86qqJOhxK5hH1EUITjLFhqsJMGNGThSFpNsagAsWD9oyE NjZXJu [file] IYYaSUkiD82dc (more content not included)...[facility] Consent for Treatmenton 30-64-9330Wgvanoi for Treatment [id number]#1.00TIFMercer County Community HospitalPath. Reviewon 25-83-3766Jjwq ReviewPeripheral Blood Smear:Invalid Interpretation CodeAdena Pike Medical CenterComment on above:Order Comment: Order added by Discern ExpertPerformed By: #### [id number] #### Greg [facility] [address], [place] [address]Kiwryicaj Orderon 87-44-4286Uoudaozhv Order [id number]#1.00TIFMercer County Community HospitalBB Draw & Holdon 82-22-2663QL D&HSample drawn for Blood BaNKettering Health SpringfieldComment on above:Performed By: #### [id number] #### [facility] Laboratory [address], [place] [address]UWElw 39-71-4862Wjazs gap [Moles/Vol]11 mmol/LNormal6-16A[facility] Pike Medical CenterComment on above:Performed By: #### [id number] #### [facility] Laboratory [address], [place] [address]Ixoxgdp [Mass/Vol]9.1 mg/dLNormal8.9-11.1FPremier Health Miami Valley Hospital NorthComment on above:Performed By: #### [id number] #### [facility] Laboratory [address], [place] [address]Suobvveu [Moles/Vol]105 mmol/JFnjhiq705-367VcunioAdena Pike Medical CenterComment on above:Performed By: #### [id number] #### [facility] Laboratory [address], [place] [address]OF6 [Moles/Vol]26 mmol/KZjjzql79-51HzowvgAdena Pike Medical Center Comment on above:Performed By: #### [id number] #### [facility] Laboratory [address], [place] [address]Hfeofkvimt [Mass/Vol]1.0 mg/dLNormal0.5-1.3FPremier Health Miami Valley Hospital NorthComment on above:Performed By: #### [id number] #### [facility] Laboratory [address], [place] [address]Jwlbqyo [Mass/Vol]109 mg/yPEiktfc52-538IgropzAdena Pike Medical CenterComment on above:Performed By: #### [id number] #### [facility] Laboratory [address], [place] [address]Sdqgkitce [Moles/Vol]3.9 mmol/LNormal3.5-5.3FPremier Health Miami Valley Hospital NorthComment on above:Performed By: #### [id number] #### [facility] Laboratory [address], [place] [address]Jstvma [Moles/Vol]138 mmol/MIxftpt334-880FasacaAdena Pike Medical CenterComment on above:Performed By: #### [id number] #### [facility] Laboratory [address], [place] [address]Fpwj nitrogen [Mass/Vol]16 mg/dLNormal5-21[facility] Medical CenterComment on above:Performed By: #### [id number] #### [facility] Laboratory [address] [place] [address]Udgl nitrogen/Creatinine [Mass ratio]16 No CrfvlVhifpw76-85 [facility] Medical CenterComment on above:Performed By: #### [id number] #### [facility] Laboratory [address], [place] [address]OCCil 69-72-9214Piahfycgabr peptide B (Bld) [Mass/Vol]20 pg/mL Normal5-80A[facility]ike Medical CenterComment on above:Performed By: #### [id number] #### [facility] Laboratory [address], [place] [address]GDA w/ Auto Diffon 20-72-8762Jsrrhgcedunw Ql (Bld)PRESENT Invalid Interpretation CodeAdena Pike Medical CenterComment on above:Performed By: #### [id number] #### [facility] Laboratory [address] [place] [address]Unbtjchfq/100 WBC (Bld)0.2 %Normal0.0-2.0A[facility]ike Medical CenterComment on above:Performed By: #### [id number] #### [facility] Laboratory [address] [place] [address]Pdefadnua/Leukocytes Auto (Bld) [Pure # fraction]0.0 E9/LNormal 0.0-0.2FPremier Health Miami Valley Hospital NorthComment on above:Performed By: #### [id number] #### [facility] Laboratory [address] [place] [address]Hyvbqcmmbyq (Bld) [#/Vol]0.0 E9/LNormal0.0-0.5FPremier Health Miami Valley Hospital NorthComment on above:Performed By: #### [id number] #### [facility] Laboratory [address] [place] [address]Ubsjremlpuv/100 WBC (Bld)0.0 %Normal0.0-8.0A[facility]ike Medical CenterComment on above:Performed By: #### [id number] #### [facility] Laboratory [address] [place] [address]Irqorpopfzx distribution width (RBC) [Ratio]19.5 %High10.9-14.2 [facility] Medical CenterComment on above:Performed By: #### [id number] #### [facility] Laboratory [address] [place] [address]Kzkbrsldzb (Bld) [Volume fraction]24.2 %Low34.0-46.0A[facility]ike Medical CenterComment on above:Performed By: #### [id number] #### [facility] Laboratory [address] [place] [address]Rdnbqyoxiu (Bld) [Mass/Vol]7.3 g/dLLow12.0-16.0A[facility]ike Medical CenterComment on above:Performed By: #### [id number] #### [facility] Laboratory [address] [place] [address]Cjpamstaxkz Auto Ql (Bld)PRESENTInvalid Interpretation Code [facility] Medical CenterComment on above:Performed By: #### [id number] #### [facility] Laboratory [address] [place] [address]Duwkutqnorc (Bld) [#/Vol]2.0 E9/LNormal1.0-4.0[facility] Medical CenterComment on above:Performed By: #### [id number] #### [facility] Laboratory [address] [place] [address]Yzyheqrpcay/100 WBC (Bld)32.5 %Txdqap33.0-50.0A[facility]ike Medical CenterComment on above:Performed By: #### [id number] #### [facility] Laboratory [address] [place] [address]SSI (RBC) [Entitic mass]20.5 pgLow27.0-34.0A[facility]ike Medical CenterComment on above:Performed By: #### [id number] #### [facility] Laboratory [address] [place] [address]BPZZ (RBC) [Mass/Vol]30.2 g/dLLow31.4-36.0A[facility] Medical CenterComment on above:Performed By: #### [id number] #### [facility] Laboratory [address] [place] [address]DUU (RBC) [Entitic vol]67.8 fLLow80.0-100.0[facility] Medical CenterComment on above:Performed By: #### [id number] #### [facility] Laboratory [address] [place] [address]Yxqygjxbju Ql (Bld)PRESENTInvalid Interpretation CodeAdena Pike Medical CenterComment on above:Performed By: #### [id number] #### [facility] Laboratory [address] [place] [address]Bytyaefpj (Bld) [#/Vol]0.5 E9/LNormal0.2-1.0[facility] Medical CenterComment on above:Performed By: #### [id number] #### [facility] Laboratory [address], [place] [address]Vsiirtqgjtw (Bld) [#/Vol]3.7 E9/LNormal2.0-7.5FPremier Health Miami Valley Hospital NorthComment on above:Performed By: #### [id number] #### [facility] Laboratory [address] [place] [address]Nahaudkbtjt/100 WBC (Bld)59.4 %Mdqsuk27.0-75.0[facility]ike Medical CenterComment on above:Performed By: #### [id number] #### [facility] Laboratory [address] [place] [address]Lfzeaaup mean volume (Bld) [Entitic vol]7.5 fLNormal6.4-10.8 [facility] Medical CenterComment on above:Performed By: #### [id number] #### [facility] Laboratory [address] [place] [address]Yzpiypmwp (Bld) [#/Vol]342.0 E9/WUzqieq690.0-500.0A[facility]ike Medical CenterComment on above:Performed By: #### [id number] #### [facility] Laboratory [address] [place] [address]FOT (Bld) [#/Vol]3.6 E12/LLow4.3-5.9[facility] Comment on above:Performed By: #### [id number] #### [facility] Laboratory [address] [place] [address]OKQ size Nom (Bld)SEE MORPHOLOGYInvalid Interpretation Code [facility] Medical CenterComment on above:Performed By: #### [id number] #### [facility] Laboratory [address] [place] [address]Vyxpvdeackoi LM Ql (Bld)PRESENTInvalid Interpretation Code [facility] Medical CenterComment on above:Performed By: #### [id number] #### [facility] Laboratory [address] [place] [address]SCY corrected for nucl RBC Auto (Bld) [#/Vol]6.3 E9/LNormal 4.0-11.0[facility]cy Medical CenterComment on above:Performed By: #### [id number] #### [facility] Laboratory [address] [place], [place] [address]UUNDFIZBXHckcffs By: SYSTEM SYSTEM on 90-88-5600Upeaofpk HS pg/mLLow10.10 - 27.10 pg/mLRemisol ChemComment on above:Interpretive Data: The 95% CI (Confidence Interval) PPV (Positive Predictive Value) for myocardial i nfarction in females is 38 pg/mL, in males 51 pg/mL. The results should be used in conjunction withclinical conditions of myocardial infarction. (Access High Sensitivity Troponin I Instructions For Use, Sandra Napanoch, September 2017)Albumin [Mass/Vol]4.3 g/dLNormal3.3 - 5.0 gm/dLRemisol Chem Albumin/Globulin [Mass ratio]1.7 {ratio}Normal1.1 - 2.2Remisol ChemALP [Catalytic activity/Vol]81 [iU]/cOypfpm77 - 98 Int._Unit/LRemisol ChemALT No additional P-5'-P [Catalytic activity/Vol]12 [iU]/dNormal6 - 46 Int._Unit/L Remisol ChemAnion gap [Moles/Vol]11 mmol/LNormal6 - 16 mEq/LRemisol ChemAST [Catalytic activity/Vol]14 [iU]/dNormal5 - 43 Int._Unit/LRemisol ChemBilirubin [Mass/Vol]0.4 mg/dLNormal0.0 - 1.1 mg/dLRemisol ChemBilirubin.direct [Mass/Vol] 0.0 mg/dLNormal0.0 - 0.4 mg/dLRemisol ChemBilirubin.indirect [Mass or moles/Vol] 0.4 mg/dLNormal0.1 - 0.9 mg/dLRemisol ChemCalcium [Mass/Vol]9.1 mg/dLNormal8.9 - 11.1 mg/dLRemisol ChemChloride [Moles/Vol]105 mmol/QDydgvb950 - 111 mmol/L Remisol ChemCO2 [Moles/Vol]26 mmol/QAkronx58 - 31 mmol/LRemisol ChemCreatinine [Mass/Vol]1.0 mg/dLNormal0.5 - 1.3 mg/dLRemisol QqwatSMG10 mL/min/1.73 s8Fkyzum >=59mL/min/1.73 q0Vijyjhz ChemGlobulin (S) [Mass/Vol]2.6 g/dLNormal1.4 - 4.0 gm/dLRemisol ChemGlucose [Mass/Vol]109 mg/xVGcbltp87 - 199 mg/dLRemisol Chem Magnesium [Mass/Vol]2.0 mg/dLNormal1.3 - 2.4 mg/dLRemisol ChemPotassium [Moles/Vol]3.9 mmol/LNormal3.5 - 5.3 mmol/LRemisol ChemProtein [Mass/Vol]6.9 g/dLNormal6.0 - 7.8 gm/dLRemisol ChemSodium [Moles/Vol]138 mmol/ZYfjwhq900 - 145 mmol/LRemisol ChemTroponin HSpg/mLLow10.10 - 27.10 pg/mLRemisol ChemComment on above:Interpretive Data: The 95% CI (Confidence Interval) PPV (Positive Predictive Value) for myocardial infarction in females is 38 pg/mL, in males 51 pg/mL. The results should be used in conjunction withclinical conditions of myocardial infarction. (Access High Sensitivity Troponin I Instructions For Use, Sandra Italo, September 2017)Urea nitrogen [Mass/Vol]16 mg/dLNormal5 - 21 mg/dLRemisol ChemUrea nitrogen/Creatinine [Mass ratio]16 mg/mwLozgyw61 - 20Remisol ChemCHEMISTRY Ordered By: Aracelis Kent on 33-93-5056Kgfimgiufzg peptide B (Bld) [Mass/Vol]20 pg/mLNormal5 - 80 pg/mLH[facility] HemeManSSCOAGULATIONOrdered By: Aracelis Ketn on 64-32-3845aAIT Coag (PPP) [Time]32.0 iPenyen94.1 - 36.5 second(s)[facility] Auto Coag Comment on above:Interpretive Data: Parameter 15 days - 4 weeks 1 - 5 months 6 - 11 months 1 - 5 years 6 - 10 years 11 - 17 years PTT Mean: 35.4 (27.6-45.6) Mean: 33.5 (24.8-40.7) Mean: 32.4 (25.1-40.7) Mean: 31.6 (24.0-39.2) Mean: 31.6 (26.9-38.7) Mean: 31.0 (24.6-38.4) Pediatric Reference ranges were obtained from a study by yuliya Pham alSara prepared from 1437 samples obtained at 7 different centers using the same coagulation reagent and instrumentation as [facility]. Currently there are no coagulation studies available worldwide for children to 14 days, andno normal ranges. Heparin therapeutic range (represented by Anti-Factor Xa activity of 0.2 - 0.4 U/mL) corresponds to PTT of 56.6 - 109.0 sec.INR Coag (PPP) [Relative time]1.11 {INR}Invalid Interpretation CodeHILLCREST HOS[facility]ITAL [facility] Auto CoagComment on above:Interpretive Data: INR results are specifically intended to assess patients stabilized on long-term Anticoagulation therapy suggested INR s Less Intensive Anticoagulation 2.0 3.0 Conventional Range 3.0 4.5PT Coag (PPP) [Time]12.5 sNormal9.4 - 12.5 second(s) [facility] Auto CoagComment on above:Interpretive Data: 15 days - 4 weeks 1 - 5 months 6 -11 months 1-5 years 6-10 years 11 -17 years Mean: 11.2 (9.5-12.6) Mean: 11.0 (9.7-12.8) Mean: 11.0 (9.8-13.0) Mean: 11.3 (9.9-13.4) Mean: 11.7 (10.0-14.6) Mean: 11.8 (10.0 - 14.1) Pediatric Reference ranges were obtained from a study by yuliya Pham alSara prepared from 1437 samples obtained at 7 different centers using the same coagulation reagent and instrumentation as [facility]. Currently there are no coagulation studies available worldwide for children to 14 days, andno normal ranges.Consent for Treatmenton 70-58-5207Dexjtsb for Treatment [id number]#1.00TIFFNoMetroHealth Parma Medical CenterDischarge Instructionson 88-32-4821Sjubdxmls Instructions [id number]#1.00TIFFNormalGreg [facility] Clinical Summaryon [id number] Clinical Summary [address] [address] ED Clinical Summary Person Information Name: OMRRO MALONEY/NewDusty Age: 37 Years : 1985 Sex: Female Language: Citizen [place] PCP: Cleo Hassan Marital Status: Visit Id: Visit Reason: Dizziness; Abnormal diagnostic test; Shortness of breath; SENT BY - FATIGUE/HEADACHE/SOB Speciality: Acuity: 2 Enc Type: Emergency Med [...] 14:14:52 08/03/2023 14:14:52 08/03/2023 14:14:52 ADDRESS: [facility] [place] [phone] PHYS DOC NOTES: MEDICAL INFORMATION: Prescriptions Given: Medications [...] every day. TAKE 1 CAPSULE BY MOUTH INTHE MORNING. methylPREDNISolone (Medrol 4 mg Tab) 1 Packets By Mouth As Directed for 6 Days. as directed on package labeling. Refills: 0. sertraline (sertraline 100 mg Tab) PATIENT EDUCATION INFORMATION: Instructions: Iron Deficiency Anemia, Adult; Shortness of Breath, Adult; Anemia Follow up: With: Address: When: José Antonio Benitez [facility], [address] [place] [address]. [place] [address] In 3 days 08/06/2023 Comments: Make sure to follow-up with as discussed. Return to the emergency room if your symptoms get worse or any new symptoms. With: Address: When: Cleo Hernandez In 3 days DIAGNOSIS: 1:Shortness of breath; 2:AnemiaNormalFisher Myron Medical CenterED Note-Nursing on 29-29-1713BT Note-Nursingthis RN enters room to d/c pt. as pt asks this RN to not take her IV out at this time because she is on the phone with her doctor because I do not agree with what he said. This RN exits room to notify josesito Ge RN of pts. concerns. Dr. Hajdari also updated that pt. does not agree with plan. This RN re-enters the room to discuss further with pt. pt. states, I am being referred somewhere else because I feel like this is an emergent issue that I would have gotten a blood transfusion or aniron infusion. This RN explains to pt. the d/c plan to f/u with Dr. Benitez and pt. agrees to bedc'd at this time and states she will not be coming back to the ER. josesito Ge RN updated at this time.[facility] CenterED Note-Physicianon [id number] Note-PhysicianBasic Information Time Seen: Jose Maria Beck, Elizabeth Small 08/03/2023 11:10 Chief Complaint patient presents with low hemaglobin (7.1)- experiencing fatigue, SOB, DOWLING and dizziness. denies blood in urine or stool History of Present Illness The patient is a 37-year-old female who presented to the emergency room for weakness. Thepatient states for past 1 week she has [...] her to the emergency room because she hasall different kind of shape cells .The patient [...] well. The patient denies any other associated sy mptoms. Review of Systems Additional ROS info: Except [...] and Complexity of Problems Differential Diagnosis: [] [facility] Data External documents reviewed: [] My EKG [...] was repeated again. Hemoglobin is 7.3. The patientdenies any black or bloody stool. The chest x-ray shows no acute cardiopulmonary disease. EKG showsno acute ischemic changes. The rest of blood [...] that we do not transfuse if the hemoglobinis not below 7. The patient had stated [...] Antonio Benitez In 3 days 08/06/2023 EDT [facility] [address] [place] [address]- Additional Instructions: Make sure to foll (more content not included)...Normal [facility] CenterComment on above:Result Comment: Electronically Signed By: Jose Maria Beck, Elizabeth Small\.br\Date and Time Signed: 08/02/2414:19 EDTED Patient Education Noteon 02-03-7815VD Patient Education NoteHematology Iron Deficiency Anemia, Adult Iron deficiency anemia [...] body absorb iron. Your health care provider mayrecommend that you take iron supplements along with a glass of orange juice or a vitamin C supplement. ? Medicines to make heavy menstrual flow photostat operator helper. ? Surgery or additional testing procedures to determine the cause of your anemia. You may need repeat blood tests to determine whether treatment is working. If the treatment does not seem to be working, you may need more tests. Follow these instructions at home: Medicines ? Take hodr-jmb-nezztlt and prescription medicines only as told by your health care provider. This includes iron supplements and vitamins. This is important because too much iron can be harmful. ? For the best iron absorption, you should take iron supplements when your stomach is empty. If youcannot tolerate them on an empty stomach, you [...] keep your urine pale yellow. ? Take iuio-esr-ewtrmfa or prescription medicines. ? Eat foods that [...] the concentration of red blood cells or hemoglobinin the blood is below normal because of too little iron. ? This condition is treated by correcting the cause of your iron deficiency. ? Take rgrw-rzl-bfhhukz and prescription medicines only as told by your health care provider. This includes iron supplem (more content not included)...Normal [facility] Patient Summaryon [id number] Patient Summary [place] [id number] Patient Discharge Instructions Person Information Name: MORRO MALONEY Age: 37 Years Arrival Date: 08/03/2023 10:44:43 Discharge Diagnosis: 1:Shortness of breath; 2:Anemia Primary Care Physician: Cleo Hassan Provider Information Primary Provider: Elizabeth Moise M.D. Advanced Patient Ambassador:None The exam and treatment you received in the Emergency Department were for an urgent problem and are not intended as complete care. It is important that you follow up with a doctor, nurse practitioner,or physician?s assistant restaurant general manager for ongoing care. If your symptoms become [...] Instructions: With: Address: When: José Antonio Benitez [facility], [address] [place] [address] In 3 days 08/06/2023 Comments: Make sure [...] opioids can be used to help relieve fwiabbxd-lt-wotuyw pain and are often prescribed following a [...] and have fewer risks and side effects. Optionsmay include: ? Pain relievers such as acetaminophen, [...] unused prescription opioids: Find your community drug take- back program or [employer] mail-back program, or flush them down the toilet, following guidance from the Food and Drug Administration (www.fda.gov/Drugs/ResourcesForYou). ? Visit www.cdc.gov/drugoverdose to learn about the ri (more content not included)...[facility] HospitalHEMATOLOGYOrdered By: SYSTEM SYSTEM on 27-02-4699Dzowvcnmionk Ql (Bld)PRESENT *NA* (08/03/23 11:40 AM)Invalid Interpretation CodeRemisol HemeBasophils/100 WBC (Bld) 0.2 %Normal0.0 - 2.0 %Remisol HemeBasophils/Leukocytes Auto (Bld) [Pure # fraction]0.0 E9/LNormal0.0 - 0.2 E9/LRemisol HemeEosinophils (Bld) [#/Vol]0.0 E9/LNormal0.0 - 0.5 E9/LRemisol HemeEosinophils/100 WBC (Bld)0.0 %Normal0.0 - 8.0 %Remisol HemeErythrocyte distribution width (RBC) [Ratio]19.5 %High10.9 - 14.2 %Remisol HemeHematocrit (Bld) [Volume fraction]24.2 %Low34.0 - 46.0 % Remisol HemeHemoglobin (Bld) [Mass/Vol]7.3 g/dLLow12.0 - 16.0 gm/dLRemisol Heme Hypochromia Auto Ql (Bld)PRESENT *NA* (08/03/23 11:40 AM)Invalid Interpretation CodeRemisol HemeLymphocytes (Bld) [#/Vol]2.0 E9/LNormal1.0 - 4.0 E9/LRemisol HemeLymphocytes/100 WBC (Bld)32.5 % Ylbtaf95.0 - 50.0 %Remisol HemeMCH (RBC) [Entitic mass]20.5 pgLow27.0 - 34.0 pg Remisol HemeMCHC (RBC) [Mass/Vol]30.2 g/dLLow31.4 - 36.0 gm/dLRemisol HemeMCV (RBC) [Entitic vol]67.8 fLLow80.0 - 100.0 fLRemisol HemeMicrocytes Ql (Bld) PRESENT *NA* (08/03/23 11:40 AM)Invalid Interpretation CodeRemisol HemeMonocytes (Bld) [#/Vol] 0.5 E9/LNormal0.2 - 1.0 E9/LRemisol HemeMonocytes/100 WBC (Bld)7.9 %Normal4.0 - 14.0 %Remisol HemeNeutrophils (Bld) [#/Vol]3.7 E9/LNormal2.0 - 7.5 E9/LRemisol HemeNeutrophils/100 WBC (Bld)59.4 %Bwmori42.0 - 75.0 %Remisol HemePlatelet mean volume (Bld) [Entitic vol]7.5 fLNormal6.4 - 10.8 fLRemisol HemePlatelets (Bld) [#/Vol]342.0 E9/ILwsjkm553.0 - 500.0 E9/LRemisol HemeRBC (Bld) [#/Vol]3.6 E12/L Low4.3 - 5.9 E12/LRemisol HemeRBC size Nom (Bld)SEE MORPHOLOGY *NA* (08/03/23 11:40 AM)Invalid Interpretation CodeRemisol HemeSchistocytes LM Ql (Bld)PRESENT *NA* (08/03/23 11:40 AM)Invalid Interpretation CodeRemisol HemeWBC corrected for nucl RBC Auto (Bld) [#/Vol]6.3 E9/LNormal4.0 - 11.0 E9/LRemisol HemeHep Func Panelon 33-10-5400Kvuudwe [Mass/Vol]4.3 g/dLNormal3.3-5.0[facility] Comment on above:Performed By: #### [id number] #### [facility] Laboratory [address], [place] [address]Zbhzsub/Globulin (S) [Mass conc ratio]1.3Fslnzn3.1-2.2FPremier Health Miami Valley Hospital NorthComment on above:Performed By: #### [id number] #### [facility] Laboratory [address], [place] [address]OGN [Catalytic activity/Vol]81 Int._Unit/XWsdcnj08-80GmqqbbAdena Pike Medical CenterComment on above:Performed By: #### [id number] #### [facility] Laboratory [address], [place] [address]FTB No additional P-5'-P [Catalytic activity/Vol]12 Int._Unit/L Normal6-46[facility] Medical CenterComment on above:Performed By: #### [id number] #### [facility] Laboratory [address], [place] [address]ZOD [Catalytic activity/Vol]14 Int._Unit/LNormal5-43[facility] Medical CenterComment on above:Performed By: #### [id number] #### [facility] Laboratory [address], [place] [address]Nvflcuxdh [Mass/Vol]0.4 mg/dLNormal0.0-1.1FPremier Health Miami Valley Hospital NorthComment on above:Performed By: #### [id number] #### [facility] Laboratory [address], [place] [address]Khjpgoeqc.direct [Mass/Vol]0.0 mg/dLNormal0.0-0.4FPremier Health Miami Valley Hospital NorthComment on above:Performed By: #### [id number] #### [facility] Laboratory [address] [place] [address]Epyevikjf.indirect [Mass or moles/Vol]0.4 mg/dLNormal0.1-0.9 [facility] CenterComment on above:Performed By: #### [id number] #### [facility] Laboratory [address] [place] [address]Hcuqlcbb (S) [Mass/Vol]2.6 g/dLNormal1.4-4.0[facility] Medical CenterComment on above:Performed By: #### [id number] #### [facility] Laboratory [address] [place] [address]Ebaxyil [Mass/Vol]6.9 g/dLNormal6.0-7.8[facility] Medical CenterComment on above:Performed By: #### [id number] #### [facility] Laboratory [address] [place] [address]Sdqqsowlw Correspondenceon [id number] Correspondence [id number] Pike Medical CenterMagnesiumon 10-67-9723Iqswownri [Mass/Vol]2.0 mg/dLNormal1.3-2.4FPremier Health Miami Valley Hospital NorthComment on above:Performed By: #### [id number] #### [facility] Laboratory [address] [place] [address]YX & PTTon 39-86-1545mMXM Coag (PPP) [Time]32.0 second(s)Normal 25.1-36.5FPremier Health Miami Valley Hospital NorthComment on above:Result Comment: Parameter 15 days - 4 weeks 1 - 5 months 6 - 11 months 1 - 5 years 6 - 10 years 11 - 17 years PTT Mean: 35.4 (27.6-45.6) Mean: 33.5 (24.8-40.7) Mean: 32.4 (25.1-40.7) Mean: 31.6 (24.0-39.2) Mean: 31.6 (26.9-38.7) Mean: 31.0 (24.6-38.4) Pediatric Reference ranges were obtained from a study by manjit Pham prepared from 1437 samples obtained at 7 different centers using the same coagulation reagent and instrumentation as [facility]. Currently there are no coagulation studies available worldwide for children to 14 days, andno normal ranges. Heparin therapeutic range (represented by Anti-Factor Xa activity of 0.2 - 0.4 U/mL) corresponds to PTT of 56.6 - 109.0 sec.Performed By: #### [id number] #### [facility] Laboratory [address], [place] [address]UBX Coag (PPP) [Relative time]1.11 {INR}Invalid Interpretation CodeFishGrace Medical CenterComment on above:Result Comment: INR results are specifically intended to assess patients stabilized on long-term Anticoagulation therapy suggested INR?s ?Less Intensive Anticoagulation? 2.0 ? 3.0 Conventional Range 3.0 ? 4.5Performed By: #### [id number] #### [facility] Laboratory [address], [place] [address]AC Coag (PPP) [Time]12.5 second(s)Normal9.4-12.5Fisher Mercy Medical CenterComment on above:Result Comment: 15 days - 4 weeks 1 - 5 months 6 -11 months 1-5 years 6-10 years 11 -17 years Mean: 11.2 (9.5-12.6) Mean: 11.0 (9.7-12.8) Mean: 11.0 (9.8-13.0) Mean: 11.3 (9.9-13.4) Mean: 11.7 (10.0-14.6) Mean: 11.8 (10.0 - 14.1) Pediatric Reference ranges were obtained from a study by manjit Phma prepared from 1437 samples obtained at 7 different centers using the same coagulation reagent and instrumentation as [facility]. Currently there are no coagulation studies available worldwide for children to 14 days, andno normal ranges.Performed By: #### [id number] #### [facility] [address], [place] [address]Parpvsrt 0 Hr.on 45-68-8910Mqbluxxe HS<2.08Vxo36.10-27.10A[facility] Pike Medical CenterComment on above:Result Comment: The 95% CI (Confidence Interval) PPV (Positive Predictive Value) for myocardial infarction in females is 38 pg/mL, in males 51 pg/mL. The results should be used in conjunction with clinical conditions of myocardial infarction. (Access High Sensitivity Troponin I Instructions For Use, [employer], September 2017)Performed By: #### [id number] #### [facility] [address], [place] [address]Kshyqdbu 1 Hr.on 80-83-3608Xjvedviw HS<2.18Obh82.10-27.10[facility] Medical CenterComment on above:Order Comment: Troponin 1 hr due @ 1240 Result Comment: The 95% CI (Confidence Interval) PPV (Positive Predictive Value) for myocardial infarction in females is 38 pg/mL, in males 51 pg/mL. The results should be used in conjunction with clinical conditions of myocardial infarction. (Access High Sensitivity Troponin I Instructions For Use, [employer], September 2017)Performed By: #### [id number] #### [facility] [address], [place] [address]DA Chest 2 Viewson [id number] Chest 2 ViewsExam Date/Time: 08/03/2023 12:42 EDT Reason for Exam: [...] Signed by: Young Junior MD Transcribed by: JEET Technologist: HANANE Technical Comments Radiation Dose: isis Zhou in mGy = na DAP = naNormalAdena Pike Medical CentereGFRon 33-36-8368oIYO41 mL/min/1.73 m2 Normal>=59A[facility] Pike Medical CenterComment on above:Order Comment: Order added by Discern Expert.Performed By: #### [id number] #### [facility] [address] [place], [place] [address]Rnuqtu Medicine Phone Visit - Telehealthon [phone] Medicine Phone Visit - TelehealthI Staff Morro is a 37 year old [...] morning. patient phones in and states she isnow severely short of breath. Ordered: iron sucrose, [...] bedtime), # 30 cap(s), Refills(s) 0, Pharmacy: [facility]/pharmacy #[id number], 161, cm, 03/29/23 15:27:00 EST, Height/Length Dosing, 107.2, kg, 03/29/23 15:27:00 EST, Weight Dosing methylPREDNISolone, = 1 packet(s), Oral, As Directed, as directed on package labeling, X 6 day(s), # 21 tab(s), Refills(s) 0, Pharmacy: [facility]/pharmacy #[id number], 161, cm, 08/01/23 14:17:00 EDT, Height/Length Dosing, 107.3, kg, 08/01/23 14:17:00 EDT, Weight Dosing predniSONE, See Instructions, 6 tabs for 2 days,5 tabs for 2 days,4 tabs for 2 days,3 tabs for 2 days,2 tabs for 2 days,1 tab for 2 days, # 42 tab(s), Refills(s) 0, [id number] 161,cm, 03/29/23 15:27:00 EST, Height/Length Dosing, 107.2, kg, ... CBC w/ Auto Diff Iron Level Lab Specimen Collect 58039 Thyroid Stimulating Hormone Vitamin D 25 Hydroxy [...] Recorded SARS-CoV-2 (COVID-19) mRNA BNT-162b2 vax 03/12/2020 RecordedNormfishAdena Pike Medical CenterComment on above:Result Comment: Electronically Signed By: Cleo Hassan\.br\Date and Time Signed: 08/02/23 13:42 EDTPhysician Orderon [id number] [id number]#1.00TIFFNormfish [facility] CenterAmbulatory Visit Summaryon 45-84-5821Ppsuoajpmh Visit Summary MORRO MALONEY :1985 Visit Date:08/01/2023 [...] By Mouth Every day TAKE 1 CAPSULE BYMOUTH IN THE MORNING Unchanged sertraline (sertraline 100 [...] you for choosing us for your care. [facility] Auto Diffon 08-01-2023 Anisocytosis Ql (Bld)PRESENTInvalid Interpretation [facility] ShawComment on above:Performed By: #### [id number] #### [facility] [address], [place] [address]Ljmgtkvddzl Auto Ql (Bld)PRESENTInvalid Interpretation Code [facility] CenterComment on above:Performed By: #### [id number] #### [facility] [address], [place] [address]Rxtenrmiyo Ql (Bld)PRESENTInvalid Interpretation [facility], [facility] ShawComment on above:Performed By: #### [id number] #### [facility] [address], [place] [address]Zrtchulzzd LM Ql (Bld)PRESENTInvalid Interpretation [facility], [facility] ShawComment on above:Performed By: #### [id number] #### [facility] [address], [place] [address]YKD size Nom (Bld)SEE MORPHOLOGYInvalid Interpretation Code [facility] Medical CenterComment on above:Performed By: #### [id number] #### [facility] [address], [place] [address]XMK w/ Auto DiffOrdered By: SYSTEM SYSTEM on 08-01-2023 Basophils/100 WBC (Bld)0.1 %Normal0.0-2.0Remisol HemeComment on above:Performed By: #### [id number] #### [facility] [address], [place] [address]Vokcwtwzo/Leukocytes Auto (Bld) [Pure # fraction]0.0 E9/LNormal 0.0-0.2Remisol HemeComment on above:Performed By: #### [id number] #### [facility] [address] [place] [address]Fzzoveblivw (Bld) [#/Vol]0.0 E9/LNormal0.0-0.5Remisol Heme Comment on above:Performed By: #### [id number] #### [facility] [address] [place] [address]Vjoadjgatbm/100 WBC (Bld)0.0 %Normal0.0-8.0Remisol HemeComment on above:Performed By: #### [id number] #### [facility] [address] [place] [address]Jnnwjwwtngo distribution width (RBC) [Ratio]19.7 %High10.9-14.2 Remisol HemeComment on above:Performed By: #### [id number] #### [facility] [address] [place] [address]Flbjqjciov (Bld) [Volume fraction]23.0 %Low34.0-46.0Remisol HemeComment on above:Performed By: #### [id number] #### [facility] [address] [place] [address]Khbxmpcabl (Bld) [Mass/Vol]7.1 g/dLLow12.0-16.0Remisol Heme Comment on above:Performed By: #### [id number] #### [facility] [address] [place] [address]Bfjhahtbpdr (Bld) [#/Vol]2.2 E9/LNormal1.0-4.0Remisol Heme Comment on above:Performed By: #### [id number] #### [facility] [address] [place] [address]Lbzbnkjlnol/100 WBC (Bld)28.2 %Dkcjhx36.0-50.0Remisol Heme Comment on above:Performed By: #### [id number] #### [facility] [address], [place] [address]TAE (RBC) [Entitic mass]21.1 pgLow27.0-34.0Remisol HemeComment on above:Performed By: #### [id number] #### [facility] [address], [place] [address]SUNT (RBC) [Mass/Vol]30.9 g/dLLow31.4-36.0Remisol HemeComment on above:Performed By: #### [id number] #### [facility] [address], [place] [address]PQJ (RBC) [Entitic vol]68.2 fLLow80.0-100.0Remisol HemeComment on above:Performed By: #### [id number] #### [facility] [address] [place] [address]Qqnsvkbve (Bld) [#/Vol]0.5 E9/LNormal0.2-1.0Remisol HemeComment on above:Performed By: #### [id number] #### [facility] [address] [place] [address]Hilnbvvcvho (Bld) [#/Vol]5.1 E9/LNormal2.0-7.5Remisol Heme Comment on above:Performed By: #### [id number] #### [facility] [address] [place] [address]Daqjpsbajhj/100 WBC (Bld)64.9 %Smpcwc24.0-75.0Remisol Heme Comment on above:Performed By: #### [id number] #### [facility] [address], [place] [address]Oaroicrq217.0 E9/XXputzw517.0-500.0Remisol HemeComment on above:Performed By: #### [id number] #### [facility] [address] [place] [address]Iqsvddqs mean volume (Bld) [Entitic vol]7.6 fLNormal6.4-10.8 Remisol HemeComment on above:Performed By: #### [id number] #### [facility] [address], [place] [address]MNI (Bld) [#/Vol]3.4 E12/LLow4.3-5.9Remisol HemeComment on above:Performed By: #### [id number] #### [facility] [address], [place] [address]FML corrected for nucl RBC Auto (Bld) [#/Vol]7.9 E9/LNormal 4.0-11.0Remisol HemeComment on above:Performed By: #### [id number] #### [facility] [address], [place] [address]ETIUVTJZYQtytblz By: SYSTEM SYSTEM on - hydroxyvitamin D3 [Mass/Vol]20.4 ng/mLLow30.0 - 100.0 ng/mLRemisol ChemIron [Mass/Vol]11 ug/dLLow35 - 153 mcg/dLRemisol ChemTSH Qn1.85 m[IU]/LNormal0.34 - 5.60 mcIU/mLRemisol ChemFami Medicine Office/Clinic Noteon 48-11-6551Lycbhp Medicine Office/Clinic NoteI Staff Morro is a 37 year old [...] day(s), # 21 tab(s), Refills(s) 0, Pharmacy: [facility]/pharmacy #[id number], 161, cm, 08/01/23 14:17:00 EDT, Height/Length Dosing, 107.3, kg, 08/01/23 14:17:00 EDT, Weight Dosing CBC w/ Auto Diff Iron Level Lab Specimen Collect 58159 Thyroid Stimulating Hormone Vitamin D 25 Hydroxy 2. Fatigue (R53.83: Other fatigue) will check labs today Ordered: methylPREDNISolone, = 1 packet(s), Oral, As Directed, as directed on package labeling, X 6 day(s), # 21 tab(s), Refills(s) 0, Pharmacy: [facility]/pharmacy #[id number], 161, cm, 08/01/23 14:17:00 EDT, Height/Length Dosing, 107.3, kg, 08/01/23 14:17:00 EDT, Weight Dosing CBC w/ Auto Diff Iron Level Lab Specimen Collect 12862 Thyroid Stimulating Hormone Vitamin D 25 Hydroxy 3. Non-smoker (Z78.9: Other specified health status) continue not smoking Ordered: methylPREDNISolone, = 1 packet(s), Oral, As Directed, as directed on package labeling, X 6 day(s), # 21 tab(s), Refills(s) 0, Pharmacy: [facility]/pharmacy #[id number], 161, cm, 08/01/23 14:17:00 EDT, Height/Length Dosing, 107.3, kg, 08/01/23 14:17:00 EDT, Weight Dosing predniSONE, See Instructions, 6 tabs for 2 days,5 tabs for 2 days,4 tabs for 2 days,3 tabs for 2 days,2 tabs for 2 days,1 tab for 2 days, # 42 tab(s), Refills(s) 0, Pharmacy: [facility]/pharmacy #[id number], 161,cm, 03/29/23 15:27:00 EST, Height/Length Dosing, 107.2, kg, 02/... CBC w/ Auto Diff Iron Level Lab Specimen Collect 24622 Thyroid Stimulating Hormone Vitamin D 25 Hydroxy 4. BMI 40.0-44.9, adult (Z68.41: Body mass index [BMI] 40.0-44.9, adult) BMI education complete Ordered: methylPREDNISolone, = 1 packet(s), Oral, As Directed, as directed on package labeling, X 6 day(s), # 21 tab(s), Refills(s) 0, Pharmacy: [facility]/pharmacy #[id number], 161, cm, 08/01/23 14:17:00 EDT, Height/Length Dosing, 107.3, kg, 08/01/23 14:17:00 EDT, Weight Dosing predniSONE, See Instructions, 6 tabs for 2 days,5 tabs for 2 days,4 tabs for 2 days,3 tabs for 2 days,2 tabs for 2 days,1 tab for 2 days, # 42 tab(s), Refills(s) 0, Pharmacy: [facility]/pharmacy #[id number], 161,cm, 03/29/23 15:27:00 EST, Height/Length Dosing, 107.2, kg, /... CBC w/ Auto Diff Iron Level Lab Specimen Collect 20146 Thyroid Stimulating Hormone Vitamin D 25 Hydroxy Orders: gabapentin, 300 mg = 1 cap(s), Oral, Once a day (at bedtime), # 30 cap(s), Refills(s) 0, Pharmacy: [facility]/pharmacy #[id number], 161, cm, 03/29/23 15:27:00 [...] BNT-162b2 vax 03/12/2020 Recor (more content not included)...[facility] HospitalComment on above:Result Comment: Electronically Signed By: Cleo Hassan\.br\Date and Time Signed: 08/01/23 15:12 EDTHEMATOLOGYOrdered By: SYSTEM SYSTEM on 91-83-1860Uzmnttgvuiqb Ql (Bld) PRESENT *NA* (08/01/23 3:00 PM)Invalid Interpretation CodeRemisol HemeHypochromia Auto Ql (Bld)PRESENT *NA* (08/01/23 3:00 PM)Invalid Interpretation CodeRemisol HemeMicrocytes Ql (Bld) PRESENT *NA* (08/01/23 3:00 PM)Invalid Interpretation CodeRemisol HemeMonocytes/100 WBC (Bld) 6.8 %Normal4.0 - 14.0 %Remisol HemeOvalocytes LM Ql (Bld)PRESENT *NA* (08/01/23 3:00 PM)Invalid Interpretation CodeRemisol HemeRBC size Nom (Bld)SEE MORPHOLOGY *NA* (08/01/23 3:00 PM)Invalid Interpretation CodeRemisol HemeFamily Medicine Office/Clinic Noteon 72-23-1607Acmgmu Medicine Office/Clinic NoteHPI Staff Morro is a 37 year old [...] needed. [facility] Ordered: predniSONE, See Instructions, 6 tabs for 2 days,5 tabs for 2 days,4 tabs for 2 days,3 tabs for 2 days,2 tabs for 2 days,1 tab for 2 days, # 42 tab(s), Refills(s) 0, Pharmacy: [facility]/pharmacy #[id number], 161,cm, 03/29/23 15:27:00 EST, Height/Length Dosing, 107.2, kg, ... 2. Low back pain (M54.50: Low back pain, unspecified) steroid sent to pharmcy Ordered: predniSONE, See Instructions, 6 tabs for 2 days,5 tabs for 2 days,4 tabs for 2 days,3 tabs for 2 days,2 tabs for 2 days,1 tab for 2 days, # 42 tab(s), Refills(s) 0, Pharmacy: [facility]/pharmacy #[id number], 161,cm, 03/29/23 15:27:00 EST, Height/Length Dosing, 107.2, kg, 02/... 3. BMI 40.0-44.9, adult (Z68.41: Body mass index [BMI] 40.0-44.9, adult) BMI education complete Ordered: predniSONE, See Instructions, 6 tabs for 2 days,5 tabs for 2 days,4 tabs for 2 days,3 tabs for 2 days,2 tabs for 2 days,1 tab for 2 days, # 42 tab(s), Refills(s) 0, Pharmacy: [facility]/pharmacy #[id number], 161,cm, 03/29/23 15:27:00 EST, Height/Length Dosing, 107.2, kg, 02/... 4. Non-smoker (Z78.9: Other specified health status) continue not smoking Ordered: predniSONE, See Instructions, 6 tabs for 2 days,5 tabs for 2 days,4 tabs for 2 days,3 tabs for 2 days,2 tabs for 2 days,1 tab for 2 days, # 42 tab(s), Refills(s) 0, Pharmacy: [facility]/pharmacy #[id number], 161,cm, 03/29/23 15:27:00 EST, Height/Length Dosing, 107.2, kg, [...] Recorded SARS-CoV-2 (COVID-19) mRNA BNT-162b2 vax 03/12/2020 RecordedNoMetroHealth Parma Medical CenterComment on above:Result Comment: Electronically Signed By: Cleo Hassan\.ariel\Date and Time Signed: 03/30/23 12:42 ESTED Note-Physicianon [id number] Note-[id number]#1.00TIFF [facility] Medicine Office/Clinic Noteon 01-25-2023 Family Medicine Office/Clinic NoteHPI Staff Morro is a 37 year old female presenting to discuss results ER followup: Hospital: [facility] Visit date: 01/05/23 Symptoms the patient [...] Metabolic Panel eGFR HgbA1c Lab Specimen Collect 62275 2. Non-smoker (Z78.9: Other specified health status) continue not smoking Ordered: Automated Diff CBC w/ Auto Diff Comprehensive Metabolic Panel eGFR HgbA1c Lab Specimen Collect 41492 3. Elevated WBCs (D72.829: Elevated white blood cell count, unspecified) WBC's were elevated when in hospital for asthma exacerbation. WBC's were elevated Ordered: Automated Diff CBC w/ Auto Diff Comprehensive Metabolic Panel eGFR HgbA1c Lab Specimen Collect 35576 4. Elevated creatine kinase (R74.8: Abnormal levels of other serum enzymes) CMP drawn in office today. will follow up on labs Ordered: Automated Diff CBC w/ Auto Diff Comprehensive Metabolic Panel eGFR HgbA1c Lab Specimen Collect 08353 5. Weight gain (R63.5: Abnormal weight gain) pt is going to look into [facility] if she is eligible for $25 co pay. will call office if she is eligible Ordered: Lab Specimen Collect 59437 6. BMI 40.0-44.9, adult (Z68.41: Body mass [...] Recorded SARS-CoV-2 (COVID-19) mRNA BNT-162b2 vax 03/12/2020 RecordedNormDoctors HospitalComment on above:Result Comment: Electronically Signed By: Cleo Hassan\.br\Date and Time Signed: 01/25/23 14:49 ESTAmbulatory Visit Summary on 98-35-5636Omdjswpwkj Visit Summary CHIARAMORRO :1985 Visit Date:01/24/2023 Ambulatory Visit Instructions Your [...] you for choosing us for your care. NormalAdena Pike Medical CenterAuto Diffon 01-24-2023 Basophils/100 WBC (Bld)1.2 %Normal0.0-2.0A[facility]ike Medical CenterComment on above:Order Comment: Order Added by Felicita Expert.Performed By: #### [id number], [id number], 0093376, [id number], 7336802 ####[facility] [place], [place] [address]Qvfklzuak/Leukocytes Auto (Bld) [Pure # fraction]0.1 E9/LNormal0.0-0.2[facility] Medical CenterComment on above:Order Comment: Order Added by Felicita Expert.Performed By: #### 9831355, 24176710, 1112332, 130705257, 4596657 ####[facility] [address] [place], [place] [address]Kpkiekdgoje/100 WBC (Bld)4.7 %Normal0.0-8.0[facility] Medical CenterComment on above:Order Comment: Order Added by Discern Expert.Performed By: #### 0750636, 49456310, 7115760, 725324253, 7503743 ####[address] [address] Eosinophils/Leukocytes Auto (Bld) [Pure # fraction]0.5 E9/LNormal0.0-0.5FPremier Health Miami Valley Hospital NorthComment on above:Order Comment: Order Added by Discern Expert.Performed By: #### 9662118, 41664337, 2638965, 452303648, 4659640 ####[address] [address] Lymphocytes/100 WBC (Bld)34.2 %Ichbgw19.0-50.0[facility]ike Medical CenterComment on above:Order Comment: Order Added by Discern Expert.Performed By: #### 6037851, 66297347, 5373824, 762325227, 7946618 ####[address] [address]Xftagrusbcr/Leukocytes Auto (Bld) [Pure # fraction]3.4 E9/LNormal1.0-4.0[facility] Medical CenterComment on above:Order Comment: Order Added by Discern Expert.Performed By: #### 8557560, 32070944, 5885732, 475914665, 8742294 ####[facility] [address] [place] [address]Kitflrvhx/100 WBC (Bld)6.7 %Normal 4.0-14.0[facility]ike Medical CenterComment on above:Order Comment: Order Added by Discern Expert.Performed By: #### 5670067, 52901220, 9372532, 739420240, 4012857 ####[address] [address]Moukkwvra/Leukocytes Auto (Bld) [Pure # fraction]0.7 E9/LNormal0.2-1.0 [facility] Medical CenterComment on above:Order Comment: Order Added by Discern Expert.Performed By: #### 1677370, 29738612, 0251370, 449794561, 3347214 ####[address] [place] [address] Neutrophils/100 WBC (Bld)53.2 %Ukcswi13.0-75.0[facility]ike Medical CenterComment on above:Order Comment: Order Added by Discern Expert.Performed By: #### 3220269, 18440297, 7122656, 553927093, 9666388 ####[address] [place], [place] [address]Bxegneihvfm/Leukocytes Auto (Bld) [Pure # fraction]5.4 E9/LNormal2.0-7.5FPremier Health Miami Valley Hospital NorthComment on above:Order Comment: Order Added by Discern Expert.Performed By: #### 9215599, 40768389, 8869496, 513215270, 6586880 ####[address] [address]PJA w/ Auto Diffon 01-24-2023 Erythrocyte distribution width (RBC) [Ratio]16.7 %High10.9-14.2FPremier Health Miami Valley Hospital NorthComment on above:Performed By: #### 6983973, 06831309, 8481497, 831733070, 3859417 ####[address] [place], [place] [address]Qfsotemkyz (Bld) [Volume fraction]38.2 %Uerwxc71.0-46.0 [facility] Medical CenterComment on above:Performed By: #### 6544108, 90242607, 9616309, 963371576, 1586181 ####[facility] [address] [address]Hmkbdowmvj (Bld) [Mass/Vol]12.3 g/dL Kfifkm71.0-16.0[facility]ike Medical CenterComment on above:Performed By: #### 6300808, 43432507, 3595412, 743116895, 5285394 ####[address] [address]BDT (RBC) [Entitic mass]26.4 pgLow 27.0-34.0[facility] Medical CenterComment on above:Performed By: #### 5892585, 48913296, 7934443, 800990204, 7798459 ####[address] [address]BJHO (RBC) [Mass/Vol]32.3 g/dLNormal 31.4-36.0[facility] Medical CenterComment on above:Performed By: #### 2208351, 90117626, 1548640, 995081466, 3199386 ####[address] [address]FUF (RBC) [Entitic vol]81.8 fLNormal 80.0-100.0[facility] Medical CenterComment on above:Performed By: #### 6931648, 66502677, 4351721, 287592124, 4296336 ####[address] [address]Qdnomrpf mean volume (Bld) [Entitic vol]8.1 fLNormal6.4-10.8[facility] Medical CenterComment on above:Performed By: #### 0272700, 64636487, 7611232, 682242865, 7863015 ####[address] [address]Shckwfyii (Bld) [#/Vol]334.0 E9/CFcmwxf301.0-500.0A[facility] Medical CenterComment on above:Performed By: #### 0123715, 05394036, 6495078, 752643505, 3592589 ####[address] [address]RTT (Bld) [#/Vol]4.7 E12/L Normal4.3-5.9A[facility] Medical CenterComment on above:Performed By: #### 7116727, 64813736, 6426810, 091171698, 9424786 ####[address] [place], [place] [address]HYW corrected for nucl RBC Auto (Bld) [#/Vol]10.1 E9/LNormal4.0-11.0A[facility]ike Medical CenterComment on above: Performed By: #### 9127102, 35271362, 9937286, 291444990, 6441784 ####[address] [address]HSUhg 01-24-2023 Albumin [Mass/Vol]3.9 g/dLNormal3.3-5.0A[facility] Medical CenterComment on above:Performed By: #### 5694964, 81104868, 7766000, 287747781, 8215078 ####[address] [address] Albumin/Globulin (S) [Mass conc ratio]1.3Hmwfji0.1-2.2FPremier Health Miami Valley Hospital NorthComment on above:Performed By: #### 0443811, 04080534, 9912010, 641529089, 1603953 ####[address] [address]UKY [Catalytic activity/Vol]81 Int._Unit/COhskwg77-81VyzzzbAdena Pike Medical CenterComment on above:Performed By: #### 1305068, 46671292, 4835724, 119846899, 9010641 ####[address] [address]WVU No additional P-5'-P [Catalytic activity/Vol]14 Int._Unit/LNormal6-46 [facility] Medical CenterComment on above:Performed By: #### 1126814, 04765685, 3218944, 119663258, 7474733 ####[facility] [address] [place], [place] [address]Llgoi gap [Moles/Vol]9 mmol/LNormal6-16 [facility] Medical CenterComment on above:Performed By: #### 3505813, 66579465, 8191500, 596274647, 6721233 ####[facility] [address] [place] [address]QKP [Catalytic activity/Vol]18 Int._Unit/LNormal5-43A[facility] Medical CenterComment on above:Performed By: #### 0268014, 82549318, 2749714, 333094114, 0585483 ####[facility] [address] AveNH[place]y, [place] [address]Hrpixkqzo [Mass/Vol]0.2 mg/dL Normal0.0-1.1FPremier Health Miami Valley Hospital NorthComment on above:Performed By: #### 4418810, 02950911, 4365519, 019952732, 2564625 ####[facility] [address] [place], [place] [address]Rlbloke [Mass/Vol]8.9 mg/dLNormal 8.9-11.1FPremier Health Miami Valley Hospital NorthComment on above:Performed By: #### 9207348, 55457369, 7877187, 736103943, 8874616 ####[facility] [address] AveNhartford hospit[place], [place] [address]Ioqvvttf [Moles/Vol]104 mmol/LNormal 101-111A[facility] Pike Medical CenterComment on above:Performed By: #### 4808986, 09083592, 7644139, 674426312, 6289851 ####[facility] [address] AveNhartford hospit[place], [place] [address]OE3 [Moles/Vol]25 mmol/GMhygkz80-82 [facility] Medical CenterComment on above:Performed By: #### 7993041, 38562312, 3192132, 874637979, 2372936 ####[facility] [address] AveNorst[address] [facility]oseph[place], [place] [address]Kpbyhawbae [Mass/Vol]1.1 mg/dLNormal 0.5-1.3FPremier Health Miami Valley Hospital NorthComment on above:Performed By: #### 0667250, 97741762, 7770166, 315010372, 4421967 ####[facility] [address] [place], [place] [address]Iiwomspq (S) [Mass/Vol]3.1 g/dLNormal 1.4-4.0A[facility] Medical CenterComment on above:Performed By: #### 0487011, 54930738, 5942539, 588265646, 2595439 ####[facility] [address] [place], [place] [address]Oimraos [Mass/Vol]87 mg/wBZrdryi76-475 [facility] Medical CenterComment on above:Result Comment: If this glucose result represents a fasting glucose, interpretation should refer tothe following reference range: 55-99 mg/dLPerformed By: #### 7995053, 92373486, 5337408, 409043862, 5209573 ####[facility] [address] [place] [address]Uguhhfhlo [Moles/Vol]4.3 mmol/LNormal3.5-5.3FPremier Health Miami Valley Hospital NorthComment on above:Performed By: #### 7264019, 89503309, 7572420, 073740447, 4327873 ####[facility] [address] [place], [place] [address]Dzpmbux [Mass/Vol]7.0 g/dLNormal6.0-7.8[facility] Medical CenterComment on above:Performed By: #### [id number], [id number], [id number], [id number], [id number] ####[facility] [address] [place], [place] [address]Axgjts [Moles/Vol]134 mmol/MEic854-991JtrvbhAdena Pike Medical CenterComment on above:Performed By: #### [id number], [id number], [id number], [id number], [id number] ####[facility] [address] [place], [place] [address]Gkzo nitrogen [Mass/Vol]13 mg/dLNormal5-21A[facility]ike Medical CenterComment on above:Performed By: #### [id number], [id number], [id number], [id number], [id number] ####[facility] [address] [place], [place] [address]Eqzv nitrogen/Creatinine [Mass ratio]12 No JhakkTucory29-79MippcrAdena Pike Medical CenterComment on above:Performed By: #### 7709270, 71108615, 2136396, 614491665, 6001919 ####[facility] [address] [place], [place] [address]TznG6ief 37-68-8997TcC9g (Bld) [Mass fraction]5.9 %Normal<=5.9A[facility] Pike Medical CenterComment on above:Performed By: #### 6590491, 21968927, 2077187, 590408590, 9128254 ####[address] [place], [place] [address]qFPGmb 23-59-2909EXJ/1.73 sq M.predicted among non-blacks MDRD (S/P/Bld) [Vol rate/Area]66 mL/min/1.73 j9Zmoyfg>=59Adena Pike Medical CenterComment on above:Order Comment: Order added by Discern Expert.Result Comment: Chronic kidney disease could be indicated at eGFR's of less than 60 mL/min/1.73m2. Kidney failure is indicated at less than 15 mL/min/1.73m2. Performed By: #### 3394748, 06549018, 2282367, 705657936, 4216745 ####[facility] [address] [place], [place] [address]Jonsvfwlvrm 58-84-2252Cykrhilte From: Cleo Hassan To: [facility] - Clinical; Sent: 10/19/2022 09:37:57 EDT Show up: 10/19/2022 09:34:00 EDT Subject: Ambulatory Reminder Due Date/Time: 10/20/2022 09:33:00 EDT Let Morro know labs were normal except cholesterol and triglycerides [...] 37.3 % (14.0 - 50.0) 10/18/2022 14:25 [place] Auto 4.6 % (4.0 - 14.0) 10/18/2022 14:25 Eos Auto 3.4 % (0.0 - 8.0) 10/18/2022 14:25 Basophil Auto 1.1 % (0.0 - 2.0) 10/18/2022 14:25 Neutro Absolute 4.3 E9/L (2.0 - 7.5) 10/18/2022 14:25 Lymph Absolute 3.0 E9/L (1.0 - 4.0) 10/18/2022 14:25 [place] Absolute 0.4 E9/L (0.2 - 1.0) 10/18/2022 [...] full unable to LVM. From: Carmel Ledbetter ([facility] - Clinical) To: Cleo Hassan; Sent: 10/21/2022 09:19:55 EDT Show up: 10/21/2022 09:19:00 EDT Subject: RE: Ambulatory Reminder notified patient of labs results. Pt states she is concerned about a growth on her thyroid she saidbefore her thyroid levels were normal and didn't show anything. She said she can feel something pushing against her esophagus. From: Cleo Hassan To: [facility] Clinical; Sent: 10/21/2022 09:24:10 EDT Show up: 10/21/2022 09:24:00 EDT Subject: RE: Ambulatory Reminder will send order to [facility]. pt notifiedNormalW[facility] Hospitaler [facility] CenterT3 81-58-9407Xwir T3 [Mass/Vol]2.8 pg/mLInvalid Interpretation Code2.0-4.4Fisher Mercy Medical CenterComment on above:Result Comment: Performed at: [facility] [id number] PhD Susan CadetPerformed By: #### 1532523, 8732849, 7254186, 7795906, 4210624, 37216213, 6166872, 9918712 ####Greg [facility] [address] [place], [place] [address]Wslxjypjpm Consenton 10-19-2022 Medication [id number]#1.00CD:127Normal Greg [facility] Medical CenterAmbulatory Visit Summaryon 97-81-2883Wlmmqejauf Visit Summary MORRO MALONEY :1985 Visit Date:10/18/2022 [...] as needed for for wheezing Pickup at [facility] Unchanged eszopiclone (eszopiclone 3 mg Tab) 1 Tablets By Mouth Once a day (at bedtime) as needed for for insomnia Unchanged fluticasone-salmeterol (Advair Diskus 500 mcg-50 mcg inhalation powder) See instructions 2 puffs at bedtime Unchanged lamotrigine (lamotrigine 150 mg Tab) Unchanged lurasidone (lurasidone 60 mg oral tablet) 1 Tablets By Mouth Every day Unchanged sertraline (sertraline 100 mg Tab) Pharmacy Information [facility] 1627: [address] [facility] [address] [place] [id number] [phone] Allergies No Known Allergies Problems Ongoing - Any problem that you are currently receiving treatment for. Asthma Cyst of thyroid [facility] gain [facility] Basophils/100 WBC (Bld)1.1 %Normal0.0-2.0Adena Pike Medical CenterComment on above:Order Comment: Order Added by Discern Expert.Performed By: #### 5384399, 2217646, 8004167, 4416516, 5808924, 19518879, 1101778, 2923341 ####[facility] [address] [place], [place] [address]Kkikqloff/Leukocytes Auto (Bld) [Pure # fraction]0.1 E9/LNormal0.0-0.2FPremier Health [facility] Comment on above:Order Comment: Order Added by Discern Expert.Performed By: #### 3399331, 0349565, 0331170, 2103032, 1277153, 47630694, 2207499, 8719051 ####[facility] [address] [place] [address] Eosinophils/100 WBC (Bld)3.4 %Normal0.0-8.0A[facility] Pike Medical CenterComment on above:Order Comment: Order Added by Discern Expert.Performed By: #### 8154985, 8613393, 7414045, 6456878, 7163685, 62873043, 3844185, 9153940 ####[facility] [address] [place], [place] [address]Zbiunhsbmyk/Leukocytes Auto (Bld) [Pure # fraction]0.3 E9/LNormal0.0-0.5FPremier Health [facility] Comment on above:Order Comment: Order Added by Discern Expert.Performed By: #### 2680449, 4994378, 0375655, 0127923, 4861427, 15081585, 7996378, 8180630 ####[address] [place] [address] Lymphocytes/100 WBC (Bld)37.3 %Gvflnv54.0-50.0Adena Pike Medical CenterComment on above:Order Comment: Order Added by Discern Expert.Performed By: #### 9980875, 2366057, 5548710, 3405486, 5342647, 49601721, 9014484, 9021745 ####[address] [place] [address] Lymphocytes/Leukocytes Auto (Bld) [Pure # fraction]3.0 E9/LNormal1.0-4.0A[facility] Pike Medical CenterComment on above:Order Comment: Order Added by Felicita Expert.Performed By: #### 3170616, 3817862, 5562477, 6752565, 5898569, 75410339, 3001980, 4628419 ####[address] [address]Zmpuaqosq/100 WBC (Bld)4.6 %Normal4.0-14.0Adena Pike Medical CenterComment on above:Order Comment: Order Added by Felicita Expert. Performed By: #### 1324058, 0694149, 7500738, 7047308, 8381853, 55152639, 0677291, 5239585 ####[address] [address]Xnnqbgkxf/Leukocytes Auto (Bld) [Pure # fraction]0.4 E9/L Normal0.2-1.0Adena Pike Medical CenterComment on above:Order Comment: Order Added by Felicita Expert.Performed By: #### 1962865, 7380308, 0963473, 6199028, 0515756, 48167694, 9184626, 4112522 ####[address] [address]Wmmrnbcfson/100 WBC (Bld)53.6 %Normal 36.0-75.0Adena Pike Medical CenterComment on above:Order Comment: Order Added by Discern Expert.Performed By: #### 8614109, 2748953, 5264948, 3581862, 1998308, 82905221, 3789763, 1975739 ####[facility] [address] [place], [place] [address]Wbbepmzcvbt/Leukocytes Auto (Bld) [Pure # fraction]4.3 E9/LNormal2.0-7.5FPremier Health Miami Valley Hospital NorthComment on above:Order Comment: Order Added by Discern Expert.Performed By: #### 0722690, 5693485, 5770843, 2867835, 2116723, 35366911, 0530806, 0122463 ####[address] [place], [place] [address]SWV w/ Auto Diffon 01-00-4728Yoavexkycsu distribution width (RBC) [Ratio]18.0 %High10.9-14.2FPremier Health Miami Valley Hospital NorthComment on above:Performed By: #### 4353171, 7163599, 5255139, 1894559, 6961089, 92345469, 0051298, 2237015 ####[address] [place], [place] [address]Lwmjolibqb (Bld) [Volume fraction]37.2 %Lsftfe76.0-46.0Adena Pike Medical CenterComment on above: Performed By: #### 0519608, 2571706, 4666171, 2477828, 7850895, 58629033, 3125298, 5638750 ####[address] [place], [place] [address]Jsiqdajbvs (Bld) [Mass/Vol]12.0 g/rZEzgnyq67.0-16.0A[facility] Pike Medical CenterComment on above:Performed By: #### 3115446, 5944533, 7987946, 3564565, 5871176, 03485002, 8679893, 4956071 ####Greg [address] [place], [place] [address]SRW (RBC) [Entitic mass]26.2 pgLow27.0-34.0Adena Pike Medical CenterComment on above:Performed By: #### 6825117, 4831606, 6162791, 8451909, 6133410, 23855221, 5634443, 1328609 ####[facility] [address] [place], [place] [address]XEZM (RBC) [Mass/Vol]32.3 g/pFDgndpp90.4-36.0Adena Pike Medical CenterComment on above:Performed By: #### 7929220, 0869868, 3029291, 1246004, 0271342, 76364234, 3019656, 9227278 ####[address] [address]CSY (RBC) [Entitic vol]81.2 gAFrfgxp13.0-100.0Adena Pike Medical CenterComment on above:Performed By: #### 3584379, 9994244, 2745809, 6501151, 4915508, 40842070, 2590476, 5188782 ####[address] [address]Rpjefosi mean volume (Bld) [Entitic vol]7.8 fLNormal6.4-10.8A[facility] Pike Medical CenterComment on above:Performed By: #### 2362598, 7226042, 5226306, 9957202, 7306764, 26703833, 6892136, 1523873 ####[address] [address] Platelets (Bld) [#/Vol]312.0 E9/OXejeqd373.0-500.0[facility] Comment on above:Performed By: #### 5691506, 4397723, 7900964, 8395397, 3878768, 89254402, 1859700, 5856977 ####[address] [address]ZMF (Bld) [#/Vol]4.6 E12/LNormal4.3-5.9A[facility] Pike Medical CenterComment on above:Performed By: #### 7086161, 9650980, 1859459, 7170285, 5308637, 20866341, 1363359, 5175011 ####Greg [facility] [address] [place], [place] [address]UKW corrected for nucl RBC Auto (Bld) [#/Vol]8.0 E9/LNormal4.0-11.0A[facility]ike Medical CenterComment on above: Performed By: #### 8771114, 6515648, 6862634, 3179478, 9324250, 88473873, 0111293, 1911820 ####[facility] [address] [place], [place] [address]MANYRTMSFEbdbvqf By: SYSTEM SYSTEM on 50-66-4340Rtrtgzn [Mass/Vol]4.0 g/dLNormal3.3 - 5.0 gm/dLFTMC RemisolAlbumin/Globulin [Mass ratio] 1.3 {ratio}Normal1.1 - 2.2[facility] RemisolALP [Catalytic activity/Vol]85 [iU]/d Toaatg40 - 98 Int._Unit/LFTMC RemisolALT No additional P-5'-P [Catalytic activity/Vol]12 [iU]/dNormal6 - 46 Int._Unit/LFTMC RemisolAnion gap [Moles/Vol] 13 mmol/LNormal6 - 16 mEq/LFTMC RemisolAST [Catalytic activity/Vol]20 [iU]/d Normal5 - 43 Int._Unit/LFTMC RemisolBilirubin [Mass/Vol]0.2 mg/dLNormal0.0 - 1.1 mg/dLFTMC RemisolCalcium [Mass/Vol]9.1 mg/dLNormal8.9 - 11.1 mg/dLFTMC Remisol Chloride [Moles/Vol]106 mmol/YFjeelr947 - 111 mmol/LFTMC RemisolCholesterol [Mass/Vol]240 mg/mWOdcl460 - 200 mg/dLFTMC RemisolCholesterol in HDL [Mass/Vol] 44 mg/dLInvalid Interpretation CodeFT RemisolCholesterol in LDL [Mass/Vol]164 mg/dLHigh<=129mg/dLH[facility]CRE[facility] RemisolCholesterol in VLDL [Mass/Vol]45 mg/dLHigh7 - 40 mg/dLHILLCREST [facility] RemisolCO2 [Moles/Vol]22 mmol/MJdlggq29 - 31 mmol/LFTMC Remisol Creatinine [Mass/Vol]1.1 mg/dLNormal0.5 - 1.3 mg/dLHILLCREST [facility] RemisolFree T4 [Mass/Vol]0.59 ng/dLNormal0.58 - 1.64 ng/dLHILLCREST [facility] RemisolGFR/1.73 sq M.predicted among non-blacks MDRD (S/P/Bld) [Vol rate/Area]66 mL/min/1.73 o4Ppgczu >=59mL/min/1.73 m2H[facility] Chem SGlobulin (S) [Mass/Vol]3.0 g/dLNormal1.4 - 4.0 gm/dLHILLCREST [facility] RemisolGlucose [Mass/Vol]130 mg/jMSifyke56 - 199 mg/dLHILLCREST [facility] Remisol Potassium [Moles/Vol]4.0 mmol/LNormal3.5 - 5.3 mmol/LFTMC RemisolProtein [Mass/Vol]7.0 g/dLNormal6.0 - 7.8 gm/dLH[facility]CRE[facility] RemisolSodium [Moles/Vol]137 mmol/L Ifmjml468 - 145 mmol/LFTMC RemisolTriglyceride [Mass/Vol]227 mg/dLHigh<=149mg/dL [facility] RemisolTSH Qn1.59 m[IU]/LNormal0.34 - 5.60 mcIU/mLHILLCREST [facility] RemisolUrea nitrogen [Mass/Vol]15 mg/dLNormal5 - 21 mg/dLHILLCREST [facility] RemisolUrea nitrogen/Creatinine [Mass ratio]14 mg/fbJjwuoh10 - 20[facility] RemisolCMPon 73-58-7892Glnkooh [Mass/Vol]4.0 g/dLNormal3.3-5.0A[facility] Pike Medical CenterComment on above:Performed By: #### 4486797, 7887932, 9584005, 2482554, 1208199, 65564301, 9126116, 0199909 ####[address] [place] [address] Albumin/Globulin (S) [Mass conc ratio]1.9Pjpesp6.1-2.2Fisher [facility]cy Medical CenterComment on above:Performed By: #### 0996906, 8939404, 9895704, 4351962, 9378830, 42770081, 1920519, 3272073 ####Garza [address] [address]XYJ [Catalytic activity/Vol]85 Int._Unit/KEnrlxl32-66UwmtkhAdena Pike Medical CenterComment on above:Performed By: #### 7590769, 5755848, 3058265, 3365038, 9244411, 70115880, 5760422, 0130106 ####Garza [address] [address]AEL No additional P-5'-P [Catalytic activity/Vol]12 Int._Unit/LNormal6-46A[facility] Pike Medical CenterComment on above:Performed By: #### 4859126, 8089227, 5378792, 5864630, 9355866, 18366706, 8290413, 2942375 ####[address] [address]Tdrxv gap [Moles/Vol]13 mmol/L Normal6-16A[facility] Pike Medical CenterComment on above:Performed By: #### 7214183, 7660409, 5997506, 7793719, 4631442, 31311197, 3911416, 1559402 ####[address] [address]PGE [Catalytic activity/Vol]20 Int._Unit/LNormal5-43[facility] Comment on above:Performed By: #### 1556305, 3992647, 5633517, 5692278, 2338505, 64171663, 7065682, 1056721 ####[facility] [address] [place], [place] [address]Rwbhpqeto [Mass/Vol]0.2 mg/dLNormal0.0-1.1FPremier Health Miami Valley Hospital NorthComment on above:Performed By: #### 3342554, 8071065, 3588550, 7202263, 5727521, 65056977, 0275944, 9932975 ####[facility] [address] [place], [place] [address]Pmgsquv [Mass/Vol]9.1 mg/dL Normal8.9-11.1FPremier Health Miami Valley Hospital NorthComment on above:Performed By: #### 4588210, 3261193, 5293967, 9824117, 6338879, 41772018, 3297425, 6437334 ####[facility] [address] [place] [address] Chloride [Moles/Vol]106 mmol/QVvukha549-542VkcrzoAdena Pike Medical CenterComment on above:Performed By: #### 1883491, 5992511, 1068548, 7511096, 8619321, 64912143, 6065473, 7695775 ####[facility] [address] [place], [place] [address]QB8 [Moles/Vol]22 mmol/VClbbrx46-68MxwotdAdena Pike Medical CenterComment on above:Performed By: #### 4119035, 5039188, 1521946, 9567715, 9801435, 89506756, 5812452, 5118555 ####[facility] [address] [place], [place] [address]Csshuufxcm [Mass/Vol]1.1 mg/dLNormal 0.5-1.3FPremier Health Miami Valley Hospital NorthComment on above:Performed By: #### 8128699, 3551518, 1015819, 2761253, 4167891, 29272359, 9289341, 6617238 ####[facility] [address] [place], [place] [address]Fgiltkxs (S) [Mass/Vol]3.0 g/dLNormal1.4-4.0A[facility] Pike Medical CenterComment on above: Performed By: #### 3321279, 6530916, 5830166, 9312832, 4367175, 85685413, 1595996, 9438676 ####[facility] [address] [place], [place] [address]Paupveq [Mass/Vol]130 mg/gESprfwz62-369ThcrciAdena Pike Medical CenterComment on above:Result Comment: If this glucose result represents a fasting glucose, interpretation should refer tothe following reference range: 55-99 mg/dLPerformed By: #### 1323037, 6863100, 0154796, 9636214, 4003285, 99269189, 5915260, 7313498 ####[facility] [address] [place], [place] [address]Zcjyhirlj [Moles/Vol]4.0 mmol/LNormal3.5-5.3FPremier Health Miami Valley Hospital NorthComment on above:Performed By: #### 8249608, 7716271, 4786804, 9910025, 4340863, 89196436, 7501776, 8113870 ####[facility] [address] [place], [place] [address]Dqcgigb [Mass/Vol]7.0 g/dL Normal6.0-7.8A[facility]ike Medical CenterComment on above:Performed By: #### 2212247, 2812808, 6510566, 8810042, 2126446, 09274736, 8027919, 8627791 ####[facility] [address] [place] [address] Sodium [Moles/Vol]137 mmol/TUgurrv546-555JpvuvtAdena Pike Medical CenterComment on above:Performed By: #### 2993013, 6978788, 5565016, 6269155, 2428424, 41297322, 0876516, 4774804 ####[facility] [address] [place], [place] [address]Ihht nitrogen [Mass/Vol]15 mg/dLNormal5-21A[facility]ike Medical CenterComment on above:Performed By: #### 7235288, 6735138, 2514078, 3680396, 7621963, 82380683, 3309729, 7235310 ####[facility] [address] [place], [place] [address]Vlmn nitrogen/Creatinine [Mass ratio] 14 No LasrmJqmqfv08-06LopwvmAdena Pike Medical CenterComment on above:Performed By: #### 5200868, 0093582, 9022781, 8143464, 1438352, 96160411, 2491932, 5881842 ####[facility] [address] [place] [address] Family Medicine Office/Clinic Noteon 80-70-0237Cufdpw Medicine Office/Clinic NoteHPI Staff Morro is a 37 year old female establishing care Establish Care: History: Any previous diagnosis: Asthma, Bi Polar, spondlythisis L4, PCOS History of seeing any specialist: Rolly lamas When was your last doctors visit: Last provider: Dr Bekah Coronado Any recent labs: nothing within the last [...] Daily, # 30 tab(s), Refills(s) 0, Pharmacy: [facility], 161, cm, 10/18/22 14:05:00 EDT, Height/Length Dosing, 105.6, kg, 10/18/22 13:58:00 EDT, Weight Dosing CBC w/ Auto Diff Comprehensive Metabolic Panel Free T4 Lab Specimen Collect 00972 Lipid Panel T3 Free Thyroid Stimulating Hormone 2. Weight gain (R63.5: Abnormal weight gain) pt would like to discuss weight loss. has done well on adipex in the past. medication agreement signed Ordered: phentermine, 37.5 mg = 1 tab(s), Oral, Daily, # 30 tab(s), Refills(s) 0, [facility]: [facility], 161, cm, 10/18/22 14:05:00 EDT, Height/Length Dosing, 105.6, kg, 10/18/22 13:58:00 EDT, Weight Dosing CBC w/ Auto Diff Comprehensive Metabolic Panel Free T4 Lab Specimen Collect 80897 Lipid Panel T3 Free Thyroid Stimulating Hormone [...] Daily, # 30 tab(s), Refills(s) 0, Pharmacy: [facility], 161, cm, 10/18/22 14:05:00 EDT, Height/Length Dosing, 105.6, kg, 10/18/22 13:58:00 EDT, Weight Dosing 4. Asthma (J45.909: Unspecified asthma, uncomplicated) albuterol refilled Ordered: phentermine, 37.5 mg = 1 tab(s), Oral, Daily, # 30 tab(s), Refills(s) 0, Pharmacy: [facility], 161, cm, 10/18/22 14:05:00 EDT, Height/Length Dosing, 105.6, kg, 10/18/22 13:58:00 EDT, Weight Dosing 5. BMI 40.0-44.9, adult (Z68.41: Body mass index [BMI] 40.0-44.9, adult) BMI education complete Ordered: phentermine, 37.5 mg = 1 tab(s), Oral, Daily, # 30 tab(s), Refills(s) 0, Pharmacy: [facility], 161, cm, 10/18/22 14:05:00 EDT, Height/Length Dosing, 105.6, kg, 10/18/22 13:58:00 EDT, Weight Dosing CBC w/ Auto Diff Comprehensive Metabolic Panel Free T4 Lab Specimen Collect 16073 Lipid Panel T3 Free Thyroid Stimulating Hormone 6. Non-smoker (Z78.9: Other specified health status) continue not smoking Ordered: phentermine, 37.5 mg = 1 tab(s), Oral, Daily, # 30 tab(s), Refills(s) 0, Pharmacy: [facility], 161, cm, 10/18/22 14:05:00 EDT, Height/Length Dosing, 105.6, kg, 10/18/22 13:58:00 EDT, Weight Dosing CBC w/ Auto Diff Comprehensive Metabolic Panel Free T4 Lab Specimen Collect 77049 Lipid Panel T3 Free Thyroid Stimulating Hormone Orders: albuterol, 2 puff(s), Inhalation, q4hr for wheezing, 18 gram, Refill(s) 0, [facility], 161, cm, 10/18/22 14:05:00 EDT, Height/Length Dosing, 105.6, kg, 10/18/22 13:58:00 EDT, Weight Dosing Follow-up No qualifying data available Problem List/Past Medical History Ongoing Asthma Cyst of thyroid Weight gai (more content not included)...NormalAdena Pike Medical Center Comment on above:Result Comment: Electronically Signed By: Cleo Hassan.ariel\Date and Time Signed: 10/18/22 14:32 EDTFree T4on 34-75-3547Nskb T4 [Mass/Vol]0.59 ng/dLNormal0.58-1.64A[facility] Pike Medical CenterComment on above: Performed By: #### 3458667, 9429377, 1575315, 5861070, 3317522, 16649194, 1761498, 1420730 ####[facility] [address] [place], [place] [address]PZYFGWEQZRHkjfsna By: SYSTEM SYSTEM on 10-18-2022 Basophils/100 WBC (Bld)1.1 %Normal0.0 - 2.0 %[facility] HemeAutoSSBasophils/Leukocytes Auto (Bld) [Pure # fraction]0.1 E9/LNormal0.0 - 0.2 E9/LFTMC HemeAutoSS Eosinophils/100 WBC (Bld)3.4 %Normal0.0 - 8.0 %[facility] HemeAutoSS Eosinophils/Leukocytes Auto (Bld) [Pure # fraction]0.3 E9/LNormal0.0 - 0.5 E9/L [facility] HemeAutoSSLymphocytes/100 WBC (Bld)37.3 %Ylcftb62.0 - 50.0 %[facility] HemeAutoSS Lymphocytes/Leukocytes Auto (Bld) [Pure # fraction]3.0 E9/LNormal1.0 - 4.0 E9/L [facility] HemeAutoSSMonocytes/100 WBC (Bld)4.6 %Normal4.0 - 14.0 %[facility] HemeAutoSS Monocytes/Leukocytes Auto (Bld) [Pure # fraction]0.4 E9/LNormal0.2 - 1.0 E9/L [facility] HemeAutoSSNeutrophils/100 WBC (Bld)53.6 %Miqaqf16.0 - 75.0 %[facility] HemeAutoSS Neutrophils/Leukocytes Auto (Bld) [Pure # fraction]4.3 E9/LNormal2.0 - 7.5 E9/L [facility] HemeAutoSSHEMATOLOGYOrdered By: Fannie Dong on 65-52-7272Wxgncfuoiwo distribution width (RBC) [Ratio]18.0 %High10.9 - 14.2 %FT HemeAutoSSHematocrit (Bld) [Volume fraction]37.2 %Npcska80.0 - 46.0 %FT HemeAutoSSHemoglobin (Bld) [Mass/Vol]12.0 g/wXCshjoc27.0 - 16.0 gm/dLFT HemeAutoSSMCH (RBC) [Entitic mass]26.2 pgLow27.0 - 34.0 pgFTM HemeAutoSSMCHC (RBC) [Mass/Vol]32.3 g/dLNormal 31.4 - 36.0 gm/dLFT HemeAutoSSMCV (RBC) [Entitic vol]81.2 aCJphhzg76.0 - 100.0 fLHILLCREST [facility] HemeAutoSSPlatelet mean volume (Bld) [Entitic vol]7.8 fLNormal6.4 - 10.8 fLFT HemeAutoSSPlatelets (Bld) [#/Vol]312.0 E9/YQbqxcr215.0 - 500.0 E9/LFTMC HemeAutoSSRBC (Bld) [#/Vol]4.6 E12/LNormal4.3 - 5.9 E12/LFC HemeAutoSSWBC corrected for nucl RBC Auto (Bld) [#/Vol]8.0 E9/LNormal4.0 - 11.0 E9/LFC HemeAutoSSLipid Panelon 07-20-4557Hctliagyuxa [Mass/Vol]240 mg/fUXlde566-668 [facility] Medical CenterComment on above:Performed By: #### 2158156, 0180481, 2593857, 9590242, 3741118, 64863651, 6501721, 8224048 ####[facility] [address] [place], [place] [address]Cdcpjxgxelo in HDL [Mass/Vol] 44 mg/dLInvalid Interpretation CodeFishGrace Medical CenterComment on above: Result Comment: HDL > or equal to 60 mg/dL: Low cardiovascular risk HDL < 40 mg/dL : High cardiovascular riskPerformed By: #### 6038992, 0297623, 4218223, 8218274, 1351652, 81461996, 0760606, 0031174 ####[facility] [address] [place], [place] [address]Histvrjgjfq in LDL [Mass/Vol] 164 mg/dLHigh<=129Adena Pike Medical CenterComment on above:Performed By: #### 4556971, 4791829, 1340661, 3189277, 3303474, 40351878, 9095818, 7825887 ####[facility] [address] [place] [address] Cholesterol in VLDL [Mass/Vol]45 mg/dLHigh7-40[facility] CenterComment on above:Performed By: #### [id number], 4351707, 6604676, 2228725, 9650343, 79212793, 9893023, 5798736 ####[facility] [address] [place], [place] [address]Sljgjgcdnpib [Mass/Vol]227 mg/dLHigh<=149[facility] CenterComment on above:Performed By: #### [id number], 4775548, 1560320, 0991158, 8820172, 84757669, 0429988, 1481585 ####[address] [place], [place] [address]IFWdc 98-34-1306ZTV Qn1.59 m[IU]/LNormal0.34-5.60[facility] CenterComment on above:Performed By: #### [id number], 5117528, 4280081, 1835813, 1550926, 98663728, 5289901, 3226452 ####[facility] [address] [place], [place] [address]lMEQ on 56-82-8459CZO/1.73 sq M.predicted among non-blacks MDRD (S/P/Bld) [Vol rate/Area]66 mL/min/1.73 x8Bplsfu>=59[facility] CenterComment on above:Order Comment: Order added by Discern Expert.Result Comment: Chronic kidney disease could be indicated at eGFR's of less than 60 mL/min/1.73m2. K idney failure is indicated at less than 15 mL/min/1.73m2.Performed By: #### [id number], 6783892, 9426259, 5960441, 5118498, 34332657, 0237720, 2532054 ####[facility] [address] [place], [place] [address]YD KNEE RT 4V or >on 91-96-9884HH KNEE RT 4V or >EXAM: XR KNEE RT 4V or > HISTORY: [...] Electronically authenticated by: WENDY ROMAN Date: 2022-06-28 05:24Normal [facility] CepheidOrdered By: ETHAN IMLAN on 02-08-2022 SARS-CoV-2 (COVID-19) Ab IA QlNegativeNegativePomerene Hospital Comment on above:This is a duplicate Cepheid Xpert Xpress CoV-2/Flu/RSV Plus RNA by RT-PCR result to be used for statistical tracking purpose only.COVID Cepheid Ordered By: Jennifer Terry on 26-14-4328NRBF-CoV-2 (COVID-19) RNA GERALD+probe Ql (Unsp spec)[facility] HospitalBasophils Auto (Bld) [#/Vol]Ordered By: Nan Brand on 45-14-2833Nmwookwua (Bld) [#/Vol]0.0 10*3/uL0.0-0.2 [facility] HospitalBasophils/100 WBC Auto (Bld)Ordered By: Nan Brand on 91-60-4025Xteudolkx/100 WBC (Bld)0.4 %.[facility] HospitalCreatinine and Glomerular filtration rate.predicted panel (S/P/Bld)Ordered By: Nan Brand on 03-33-9010Niwwlrkevs [Mass/Vol]0.94 mg/dL0.44-1.03 [facility] HospitalEosinophils Auto (Bld) [#/Vol]Ordered By: Nan Brand on 75-44-0026Ribztufxgvc (Bld) [#/Vol]0.0 10*3/uL0.0-0.45[facility] HospitalEosinophils/100 WBC Auto (Bld)Ordered By: Nan Brand on 24-21-6326Olofhxisebt/100 WBC (Bld)0.0 %.[facility] Erythrocyte distribution width Auto (RBC) [Ratio]Ordered By: Nan Brand on 57-54-6103Cwqgiqfezez distribution width (RBC) [Ratio]17.6 %11.9-15.3FKettering Health DaytonEstimated glomerular filtration rate (GFR) non- AmericanOrdered By: Nan Brand on 14-93-4068TWD/1.73 sq M.predicted among non-blacks MDRD (S/P/Bld) [Vol rate/Area]> 60 mL/MinPomerene HospitalHematocrit Auto (Bld) [Volume fraction]Ordered By: Nan Brand on 40-77-3305Xiifzbuzwe (Bld) [Volume fraction]39.3 %34.0-46.4FKettering Health DaytonHemoglobin [Mass/volume] in BloodOrdered By: Nan Brand on 64-34-1888Srlcqiqwol (Bld) [Mass/Vol]12.6 g/dL11.8-15.4FKettering Health DaytonLaboratory - Hematology and Cell countsOrdered By: Nan Brand on 12-17-3056Jnzfjlihb RBC/100 WBC (Bld) [Ratio]0.0 %0-0.5FKettering Health DaytonLeukocytes [#/volume] in Blood by Automated countOrdered By: Nan Brand on 18-88-6036ALX (Bld) [#/Vol]11.2 10*3/uL4.5-11.0P[facility] HospitalLymphocytes Auto (Bld) [#/Vol]Ordered By: Nan Brand on 99-59-3872Bcsdqvriqfx (Bld) [#/Vol]1.0 10*3/uL1.00-4.8P[facility] HospitalLymphocytes/100 WBC Auto (Bld)Ordered By: Nan Brand on 12-28-2021 Lymphocytes/100 WBC (Bld)8.7 %.[facility] Auto (RBC) [Entitic mass]Ordered By: Nan Brand on 36-12-5959RBT (RBC) [Entitic mass] 26.5 pg24.7-34.3FKettering Health DaytonMCHC Auto (RBC) [Mass/Vol] Ordered By: Nan Brand on 87-61-6815HNMG (RBC) [Mass/Vol]32.1 g/dL32.0-35.0 [facility] HospitalMCV Auto (RBC) [Entitic vol]Ordered By: Nan Brand on 02-91-7842DLM (RBC) [Entitic vol]82.6 wM06-434PtmwqbahtPomerene HospitalMonocytes Auto (Bld) [#/Vol]Ordered By: Nan Brand on 65-23-4104Wzgiwnysh (Bld) [#/Vol]0.1 10*3/uL0.0-0.8P[facility] HospitalMonocytes/100 WBC Auto (Bld)Ordered By: Nan Brand on 12-28-2021 Monocytes/100 WBC (Bld)1.3 %.[facility] HospitalNeutrophils Auto (Bld) [#/Vol]Ordered By: Nan Brand on 80-80-3694Cbhbkeqiucx (Bld) [#/Vol] 10.0 10*3/uL1.8-7.7FKettering Health DaytonNeutrophils/100 WBC Auto (Bld)Ordered By: Nan Brand on 00-54-6093Dhrpfegfctk/100 WBC (Bld)89.6 %. [facility] HospitalNo Panel InformationOrdered By: Nan Brand on 73-83-0321Wclqaplep GFR ()> 60 mL/MinPomerene HospitalComment on above:GFR estimated reference range: According to KDOQI guidelines, <60 ml/min/1.73m2 is sufficient todiagnose a patient with chronic kidney disease.Pharmacy Creatinine Clearance (Chem96.17P[facility] HospitalPlatelet mean volume Auto (Bld) [Entitic vol]Ordered By: Nan Brand on 67-78-4922Tojhgsbu mean volume (Bld) [Entitic vol]7.8 fL6.3-10.7 [facility] HospitalPlatelets Auto (Bld) [#/Vol]Ordered By: Nan Brand on 88-99-1666Xfjxomlcg (Bld) [#/Vol]315 10*3/zA700-975HjsdokjsfPomerene HospitalRBC Auto (Bld) [#/Vol]Ordered By: Nan Brand on 55-63-3173QXM (Bld) [#/Vol]4.76 10*6/uL3.60-5.00[facility] Hospitalerum or plasma anion gap determinationOrdered By: Nan Brand on 62-78-4518Qqqaz gap [Moles/Vol]13.8 mmol/L6.0-15.0[facility] Hospitalerum or plasma calcium measurement (mass/volume)Ordered By: Nan Brand on 76-06-7746Npdasvw [Mass/Vol]9.4 mg/dL8.2-10.2FAkron Children's Hospitalerum or plasma chloride measurement (moles/volume)Ordered By: Nan Brand on 43-26-6451Modeyist [Moles/Vol]106 mmol/P15-080PonjdmgtxCleveland Clinic Hillcrest Hospitalerum or plasma glucose measurement (mass/volume)Ordered By: Nan Brand on 81-05-9378Mpblile [Mass/Vol]162 mg/nG54-073VmzjgaexnPomerene HospitalComment on above:ADA recommended reference rangeRandom Glucose Reference Range is dependent on time and content of last meal. Glucose of more than 200 mg/dL in a nonstressed, ambulatory subject supports the diagnosisof Diabetes Mellitus.Serum or plasma potassium measurement (moles/volume)Ordered By: Nan Brand on 47-65-3676Bqlxtbfuf [Moles/Vol]4.3 mmol/L3.5-5.1FAkron Children's Hospitalerum or plasma sodium measurement (moles/volume)Ordered By: Nan Brand on 49-28-9975Qnlaim [Moles/Vol]137 mmol/J403-691SqhtbnoriCleveland Clinic Hillcrest Hospitalerum or plasma total carbon dioxide measurement (moles/volume)Ordered By: Nan Brand on 23-95-4080BK8 [Moles/Vol]21.5 mmol/L22.0-30.0[facility] Hospitalerum or plasma urea nitrogen measurement (mass/volume)Ordered By: Nan Brand on 12-28-2021 Urea nitrogen [Mass/Vol]9 mg/dL9-23Pome[facility] HospitalAlbumin [Mass/volume] in Serum or PlasmaOrdered By: Mark Britt on 67-15-8508Fvhaxej [Mass/Vol]3.9 g/dL3.2-5.5FKettering Health DaytonBasophils Auto (Bld) [#/Vol]Ordered By: Mark Britt on 86-35-4254Cmzxcjeec (Bld) [#/Vol]0.1 10*3/uL 0.0-0.2FKettering Health DaytonBasophils/100 WBC Auto (Bld)Ordered By: Mark Britt on 08-13-0527Gxkclccnw/100 WBC (Bld)0.8 %.[facility] HospitalCOVID CepheidOrdered By: Mark Britt on 99-03-7020WLGI-CoV-2 (COVID-19) Ab IA QlNegativeNegativePomerene HospitalComment on above:This is a duplicate Cepheid Xpert Xpress CoV-2/Flu/RSV Plus RNA by RT-PCR result to be used for statistical tracking purpose only.SARS-CoV-2 (COVID-19) RNA GERALD+probe Ql (Unsp spec)[facility] HospitalCreatinine and Glomerular filtration rate.predicted panel (S/P/Bld)Ordered By: Mark Britt on 93-08-3924Tmzffcffkf [Mass/Vol]1.03 mg/dL0.44-1.03P[facility] HospitalDirect bilirubin measurementOrdered By: Mark Britt on 12-27-2021 Bilirubin.direct [Mass/Vol]mg/dL0.0-0.4[facility] Dayton Eosinophils Auto (Bld) [#/Vol]Ordered By: Mark Britt on 46-89-4431Lyabkhwwdkl (Bld) [#/Vol]0.2 10*3/uL0.0-0.45P[facility] HospitalEosinophils/100 WBC Auto (Bld)Ordered By: Mark Britt on 84-18-8025Utxvilbxsss/100 WBC (Bld) 1.9 %.[facility] HospitalErythrocyte distribution width Auto (RBC) [Ratio]Ordered By: Mark Britt on 36-34-0408Ofolvblneip distribution width (RBC) [Ratio]17.5 %11.9-15.3FKettering Health DaytonEstimated glomerular filtration rate (GFR) non- AmericanOrdered By: Mark Britt on 94-51-1871EGM/1.73 sq M.predicted among non-blacks MDRD (S/P/Bld) [Vol rate/Area]60 mL/MinPomerene HospitalGlobulin Calc (S) [Mass/Vol] Ordered By: Mark Britt on 04-68-4118Vrphjxpu (S) [Mass/Vol]2.9 g/dLPomerene HospitalHematocrit Auto (Bld) [Volume fraction]Ordered By: Mark Britt on 69-73-6974Gxvwnyeevb (Bld) [Volume fraction]43.3 %34.0-46.4FKettering Health DaytonHemoglobin [Mass/volume] in BloodOrdered By: Mark Britt on 20-24-0324Efjbmfhcoy (Bld) [Mass/Vol]13.7 g/dL11.8-15.4FKettering Health DaytonLaboratory - Chemistry and Chemistry - challengeOrdered By: Mark Britt on 70-86-4600KUK [Catalytic activity/Vol]20 U/I66-30XeptpugbvPomerene HospitalLaboratory - Hematology and Cell countsOrdered By: Mark Britt on 04-46-3696Ysrmqxfkg RBC/100 WBC (Bld) [Ratio]0.1 %0-0.5FKettering Health DaytonLeukocytes [#/volume] in Blood by Automated countOrdered By: Mark Britt on 00-98-6888HTA (Bld) [#/Vol]12.6 10*3/uL4.5-11.0P[facility] HospitalLymphocytes Auto (Bld) [#/Vol]Ordered By: Mark Britt on 78-58-9555Ldbxzibbopv (Bld) [#/Vol]3.0 10*3/uL1.00-4.8P[facility] HospitalLymphocytes/100 WBC Auto (Bld)Ordered By: Mark Britt on 44-15-6043Rifbjindfei/100 WBC (Bld)23.6 %.[facility] Auto (RBC) [Entitic mass]Ordered By: Mark Britt on 27-06-4956APE (RBC) [Entitic mass]26.5 pg24.7-34.3FKettering Health DaytonMCHC Auto (RBC) [Mass/Vol]Ordered By: Mark Britt on 48-82-9248XCIW (RBC) [Mass/Vol]31.7 g/dL 32.0-35.0P[facility] HospitalMCV Auto (RBC) [Entitic vol]Ordered By: Mark Britt on 56-33-2737LGB (RBC) [Entitic vol]83.7 kU49-478IpuknqqnhPomerene HospitalMonocytes Auto (Bld) [#/Vol]Ordered By: Mark Britt on 00-63-1872Jdrwvapna (Bld) [#/Vol]0.7 10*3/uL0.0-0.8P[facility] HospitalMonocytes/100 WBC Auto (Bld)Ordered By: Mark Britt on 12-27-2021 Monocytes/100 WBC (Bld)5.7 %.[facility] HospitalNeutrophils Auto (Bld) [#/Vol]Ordered By: Mark Britt on 30-36-3067Aqsgnvfpsxz (Bld) [#/Vol]8.6 10*3/uL1.8-7.7FKettering Health DaytonNeutrophils/100 WBC Auto (Bld) Ordered By: Mark Britt on 25-56-2928Dxslywqnrle/100 WBC (Bld)68.0 %.[facility] HospitalNo Panel InformationOrdered By: Mark Britt on 06-27-3793Zmqudagzb GFR ()> 60 mL/MinPomerene HospitalComment on above:GFR estimated reference range: According to KDOQI guidelines, <60 ml/min/1.73m2 is sufficient todiagnose a patient with chronic kidney disease.Pharmacy Creatinine Clearance (Chem88.19P[facility] HospitalPlatelet mean volume Auto (Bld) [Entitic vol]Ordered By: Mark Britt on 37-48-9844Kdgfgnvz mean volume (Bld) [Entitic vol]7.7 fL6.3-10.7 [facility] HospitalPlatelets Auto (Bld) [#/Vol]Ordered By: Mark Britt on 92-81-9903Elqedlgzm (Bld) [#/Vol]324 10*3/rM316-933YbaiacubhPomerene HospitalProtein [Mass/volume] in Serum or PlasmaOrdered By: Mark Britt on 27-20-4892Sawkheq [Mass/Vol]6.8 g/dL6.1-7.9[facility] RBC Auto (Bld) [#/Vol]Ordered By: Mark Britt on 20-09-6342BGQ (Bld) [#/Vol] 5.18 10*6/uL3.60-5.00[facility] Hospitalerum or plasma alanine aminotransferase measurement without P-5'-P (enzymatic activiOrdered By: Mark Britt on 30-65-6555KAU No additional P-5'-P [Catalytic activity/Vol]16 U/L10-60 [facility] Hospitalerum or plasma albumin/globulin mass ratio Ordered By: Mark Britt on 72-16-1089Udozxsn/Globulin [Mass ratio]1.3 {ratio} [facility] Hospitalerum or plasma alkaline phosphatase measurement (enzymatic activity/volume)Ordered By: Mark Britt on 06-53-4135IBG [Catalytic activity/Vol]109 U/V24-58MyqfhlobrCleveland Clinic Hillcrest Hospitalerum or plasma anion gap determinationOrdered By: Mark Britt on 49-89-4943Rdtgg gap [Moles/Vol]See comment6.0-15.0P[facility] HospitalComment on above: Specimen hemolyzed, redraw requestedPLEASE CALCULATE WITH REDRAW POTASSIUM IF NEEDEDSerum or plasma calcium measurement (mass/volume)Ordered By: Mark Britt on 38-62-1547Ozsoxcv [Mass/Vol]9.0 mg/dL8.2-10.2FAkron Children's Hospitalerum or plasma chloride measurement (moles/volume)Ordered By: Mark Britt on 85-60-1148Yytfygng [Moles/Vol]103 mmol/M51-624KpsfikaxxCleveland Clinic Hillcrest Hospitalerum or plasma glucose measurement (mass/volume)Ordered By: Mark Britt on 23-49-7625Vzbjjne [Mass/Vol]104 mg/oN44-544FarzzxvxxPomerene HospitalComment on above:ADA recommended reference rangeRandom Glucose Reference Range is dependent on time and content of last meal. Glucose of more than 200 mg/dL in a nonstressed, ambulatory subject supports the diagnosisof Diabetes Mellitus.Serum or plasma non-glucuronidated bilirubin measurement (mass/volume)Ordered By: Mark Britt on 50-63-2258Uqjbzjobb.indirect [Mass/Vol] TNPPomerene HospitalComment on above:Test not performedSerum or plasma potassium measurement (moles/volume)Ordered By: Mark Britt on 59-80-3912Mousdacad [Moles/Vol]3.7 mmol/L3.5-5.1FAkron Children's Hospitalerum or plasma sodium measurement (moles/volume)Ordered By: Mark Britt on 89-80-7625Whugdd [Moles/Vol]136 mmol/V967-267JuzoznmqtCleveland Clinic Hillcrest Hospitalerum or plasma total bilirubin measurement (mass/volume)Ordered By: Mark Britt on 36-63-3900Okwprrkpt [Mass/Vol]0.6 mg/dL0.3-1.2FAkron Children's Hospitalerum or plasma total carbon dioxide measurement (moles/volume) Ordered By: Mark Britt on 71-25-5579SE8 [Moles/Vol]18.8 mmol/L22.0-30.0 [facility] Hospitalerum or plasma urea nitrogen measurement (mass/volume)Ordered By: Mark Britt on 18-43-8908Msao nitrogen [Mass/Vol]8 mg/dL9-23P[facility] HospitalTroponin I.cardiac [Mass/volume] in Serum or Plasma by High sensitivity methodOrdered By: Mark Britt on 12-27-2021 Troponin I.cardiac High sensitivity method [Mass/Vol]3 pg/mL0-15P[facility] HospitalBlood hemoglobin measurement (mass/volume)Ordered By: Jp Barba on 81-95-4314Hthwpetppq (Bld) [Mass/Vol]12.7 g/dL11.8-15.4FKettering Health DaytonCreatinine and Glomerular filtration rate.predicted panel (S/P/Bld)Ordered By: Jp Barba on 38-43-4346Wvwouchlrn [Mass/Vol]0.98 mg/dL0.44-1.03[facility] HospitalErythrocyte distribution width Auto (RBC) [Ratio]Ordered By: Jp Barba on 99-26-9420Ownolwdizxw distribution width (RBC) [Ratio]18.0 %11.9-15.3FK[facility] Health DaytonEstimated glomerular filtration rate (GFR) non- AmericanOrdered By: Jp Barba on 11-20-4620GXF/1.73 sq M.predicted among non-blacks MDRD (S/P/Bld) [Vol rate/Area]> 60 mL/MinPomerene HospitalHematocrit Auto (Bld) [Volume fraction]Ordered By: Jp Barba on 75-44-5175Vwaamirazx (Bld) [Volume fraction]39.9 %34.0-46.4FK[facility] DaytonLaboratory - Chemistry and Chemistry - challengeOrdered By: Jp Barba on 79-48-7062Ghmrrheyd [Mass/Vol]1.8 mg/dL1.6-2.6FProMedica Defiance Regional Hospital Auto (RBC) [Entitic mass]Ordered By: Jp Barba on 30-82-9019HAT (RBC) [Entitic mass]26.1 pg24.7-34.3[facility] CenterMCHC Auto (RBC) [Mass/Vol]Ordered By: Jp Barba on 93-12-1406PQGV (RBC) [Mass/Vol]31.8 g/dL32.0-35.0[facility] HospitalMCV Auto (RBC) [Entitic vol]Ordered By: Jp Barba on 82-28-7842VSV (RBC) [Entitic vol]82.2 wQ33-282HyrfgxuwsPomerene Hospital No Panel InformationOrdered By: Jp Barba on 60-24-5569Zwgerhgmc GFR ()> 60 mL/MinPomerene HospitalComment on above:GFR estimated reference range: According to KDOQI guidelines, <60 ml/min/1.73m2 is sufficient todiagnose a patient with chronic kidney disease.Pharmacy Creatinine Clearance (Chem93.33P[facility] HospitalPlatelet mean volume Auto (Bld) [Entitic vol]Ordered By: Jp Barba on 17-89-1181Qcxizshm mean volume (Bld) [Entitic vol]8.1 fL6.3-10.7FKettering Health DaytonPlatelets Auto (Bld) [#/Vol]Ordered By: Jp Barba on 59-56-4181Ldzlfhdmv (Bld) [#/Vol]334 10*3/sF164-221UnrhmspfrPomerene HospitalRBC Auto (Bld) [#/Vol]Ordered By: Jp Barba on 04-35-5600RDL (Bld) [#/Vol]4.86 10*6/uL3.60-5.00[facility] Hospitalerum or plasma anion gap determinationOrdered By: Jp Barba on 40-30-3414Rnhaj gap [Moles/Vol]15.5 mmol/L6.0-15.0[facility] Hospitalerum or plasma calcium measurement (mass/volume)Ordered By: Jp Barba on 09-69-7218Amcsunq [Mass/Vol]9.5 mg/dL8.2-10.2FAkron Children's Hospitalerum or plasma chloride measurement (moles/volume)Ordered By: Jp Barba on 20-11-2202Smkwmsdp [Moles/Vol]103 mmol/E69-023HlfzsnmemCleveland Clinic Hillcrest Hospitalerum or plasma glucose measurement (mass/volume)Ordered By: Jp Barba on 54-28-5992Jggugbg [Mass/Vol]149 mg/eJ24-630AfauakmqgPomerene HospitalComment on above:ADA recommended reference rangeRandom Glucose Reference Range is dependent on time and content of last meal. Glucose of more than 200 mg/dL in a nonstressed, ambulatory subject supports the diagnosisof Diabetes Mellitus.Serum or plasma potassium measurement (moles/volume)Ordered By: Jp Barba on 88-95-3591Hrwubevke [Moles/Vol]4.5 mmol/L3.5-5.1FAkron Children's Hospitalerum or plasma sodium measurement (moles/volume)Ordered By: Jp Barba on 12-02-2894Vhgimh [Moles/Vol]136 mmol/Y341-560FmuoabuouCleveland Clinic Hillcrest Hospitalerum or plasma total carbon dioxide measurement (moles/volume)Ordered By: Jp Barba on 18-09-5433ZJ9 [Moles/Vol]22.0 mmol/L 22.0-30.0[facility] Hospitalerum or plasma urea nitrogen measurement (mass/volume)Ordered By: Jp Barba on 45-81-4309Aiwf nitrogen [Mass/Vol]13 mg/dL9-23P[facility] HospitalWBC Auto (Bld) [#/Vol] Ordered By: Jp Barba on 09-83-1402DDG (Bld) [#/Vol]17.0 10*3/uL3.8-11.6 [facility] HospitalBasophils Auto (Bld) [#/Vol]Ordered By: Jason Milton on 84-00-3181Ftuhdwbgn (Bld) [#/Vol]0.1 10*3/uL0.0-0.2FK[facility]tering Health DaytonBasophils/100 WBC Auto (Bld)Ordered By: Jason Milton on 42-68-8235Zubpvwurq/100 WBC (Bld)0.8 %.[facility] HospitalBlood hemoglobin measurement (mass/volume)Ordered By: Jason Milton on 11-18-2021 Hemoglobin (Bld) [Mass/Vol]11.8 g/dL11.8-15.4FK[facility] Dayton Blood leukocytes automated count (number/volume)Ordered By: Jason Milton on 80-76-2208KFW (Bld) [#/Vol]12.0 10*3/uL4.5-11.0[facility] Body fluid albumin measurement (mass/volume)Ordered By: Jason Milton on 63-59-6737Vbceayx (Body fld) [Mass/Vol]3.8 g/dL3.2-5.5FK[facility] Health DaytonCOVID CepheidOrdered By: Jason Milton on 49-67-5107HQWP-CoV-2 (COVID-19) Ab IA QlNegativeNegativePomerene HospitalComment on above:This is a duplicate [email or web address] Xpert Xpress CoV-2/Flu/RSV Plus RNA by RT-PCR result to be used for statistical tracking purpose only.SARS-CoV-2 (COVID-19) RNA GERALD+probe Ql (Unsp spec)[facility] HospitalCreatine kinase [Enzymatic activity/volume] in Serum or PlasmaOrdered By: Jason Milton on 84-09-3803OK [Catalytic activity/Vol]78 U/S92-340KeqzuorldPomerene HospitalCreatinine and Glomerular filtration rate.predicted panel (S/P/Bld)Ordered By: Jason Milton on 51-80-7884Gbbnvokotr [Mass/Vol]0.98 mg/dL0.44-1.03[facility] HospitalEosinophils Auto (Bld) [#/Vol]Ordered By: Jason Milton on 45-00-4564Laquikhqsyc (Bld) [#/Vol]0.4 10*3/uL0.0-0.45P[facility] HospitalEosinophils/100 WBC Auto (Bld)Ordered By: Jason Milton on 16-26-6638Olhlgenlmxn/100 WBC (Bld)3.1 %.[facility] Erythrocyte distribution width Auto (RBC) [Ratio]Ordered By: Jason Milton on 21-65-7202Zssazvbkfyq distribution width (RBC) [Ratio]17.5 %11.9-15.3FK[facility] Health DaytonEstimated glomerular filtration rate (GFR) non- AmericanOrdered By: Jason Milton on 60-84-2816UDY/1.73 sq M.predicted among non-blacks MDRD (S/P/Bld) [Vol rate/Area]> 60 mL/MinPomerene HospitalGlobulin Calc (S) [Mass/Vol]Ordered By: Jason Milton on 11-18-2021 Globulin (S) [Mass/Vol]2.9 g/dLPomerene HospitalHematocrit Auto (Bld) [Volume fraction]Ordered By: Jason Milton on 57-05-2032Finxgccbrb (Bld) [Volume fraction]37.2 %34.0-46.4FK[facility] DaytonLaboratory - Chemistry and Chemistry - challengeOrdered By: Jason Milton on 11-18-2021 Natriuretic peptide B (Bld) [Mass/Vol]17.0 pg/mL5-100P[facility] HospitalLaboratory - Hematology and Cell countsOrdered By: Jason Milton on 77-63-0899Xdritzubv RBC/100 WBC (Bld) [Ratio]0.1 %0-0.5FKettering Health DaytonLymphocytes Auto (Bld) [#/Vol]Ordered By: Jason Milton on 27-25-6609Yseissjmcdn (Bld) [#/Vol]2.0 10*3/uL1.00-4.8P[facility] HospitalLymphocytes/100 WBC Auto (Bld)Ordered By: Jason Milton on 11-18-2021 Lymphocytes/100 WBC (Bld)16.7 %.[facility] HospitalMCH Auto (RBC) [Entitic mass]Ordered By: Jason Milton on 42-59-2861GMQ (RBC) [Entitic mass] 25.9 pg24.7-34.3FK[facility] Health DaytonMCHC Auto (RBC) [Mass/Vol] Ordered By: Jason Milton on 25-84-3466LBJX (RBC) [Mass/Vol]31.8 g/dL32.0-35.0 [facility] HospitalMCV Auto (RBC) [Entitic vol]Ordered By: Jason Milton on 63-01-3032PWA (RBC) [Entitic vol]81.4 jL12-456XoaqgfcxvPomerene HospitalMonocytes Auto (Bld) [#/Vol]Ordered By: Jason Milton on 58-90-4290Xihgilsyr (Bld) [#/Vol]0.7 10*3/uL0.0-0.8[facility] HospitalMonocytes/100 WBC Auto (Bld)Ordered By: Jason Milton on 11-18-2021 Monocytes/100 WBC (Bld)5.6 %.[facility] HospitalNeutrophils Auto (Bld) [#/Vol]Ordered By: Jason Milton on 51-93-6365Lsgerqbzgpx (Bld) [#/Vol]8.9 10*3/uL1.8-7.7FKettering Health DaytonNeutrophils/100 WBC Auto (Bld) Ordered By: Jason Milton on 96-58-7410Qvweemmdszs/100 WBC (Bld)73.8 %.[facility] HospitalNo Panel InformationOrdered By: Jason Milton on 64-88-1090Wipyrdkas GFR ()> 60 mL/MinPomerene HospitalComment on above:GFR estimated reference range: According to KDOQI guidelines, <60 ml/min/1.73m2 is sufficient todiagnose a patient with chronic kidney disease.Pharmacy Creatinine Clearance (Chem94.32P[facility] HospitalPlatelet mean volume Auto (Bld) [Entitic vol]Ordered By: Jason Milton on 60-02-0105Ibvelfzr mean volume (Bld) [Entitic vol]7.9 fL6.3-10.7 [facility] HospitalPlatelets Auto (Bld) [#/Vol]Ordered By: Jason Milton on 54-06-2899Gidgkmijg (Bld) [#/Vol]326 10*3/iD032-485OfhtbhfurPomerene HospitalProtein [Mass/volume] in Serum or PlasmaOrdered By: Jason Milton on 41-34-0345Gogncpx [Mass/Vol]6.7 g/dL6.1-7.9[facility] RBC Auto (Bld) [#/Vol]Ordered By: Jason Milton on 23-80-3396FPR (Bld) [#/Vol] 4.57 10*6/uL3.60-5.00[facility] Hospitalerum or plasma alanine aminotransferase measurement without P-5'-P (enzymatic activiOrdered By: Jason Milton on 86-71-7144RUC No additional P-5'-P [Catalytic activity/Vol]15 U/L10-60 [facility] Hospitalerum or plasma albumin/globulin mass ratio Ordered By: Jason Milton on 59-24-3192Gmzkavq/Globulin [Mass ratio]1.3 {ratio} [facility] Hospitalerum or plasma alkaline phosphatase measurement (enzymatic activity/volume)Ordered By: Jason Milton on 11-18-2021 ALP [Catalytic activity/Vol]99 U/S81-40GdqnsrvznCleveland Clinic Hillcrest Hospitalerum or plasma anion gap determinationOrdered By: Jason Milton on 94-58-4582Lewgp gap [Moles/Vol]17.9 mmol/L6.0-15.0[facility] Hospitalerum or plasma aspartate aminotransferase measurement (enzymatic activity/volume)Ordered By: Jason Milton on 78-50-7499KIZ [Catalytic activity/Vol]22 U/Y85-52GbgkddqnoCleveland Clinic Hillcrest Hospitalerum or plasma calcium measurement (mass/volume)Ordered By: Jason Milton on 37-87-3734Qgfojal [Mass/Vol]8.9 mg/dL8.2-10.2FAkron Children's Hospitalerum or plasma chloride measurement (moles/volume) Ordered By: Jason Milton on 63-87-8268Kdjeeurb [Moles/Vol]99 mmol/L95-114 [facility] Hospitalerum or plasma creatine kinase MB (CKMB)/total creatine kinase (CK) ratio by calculaOrdered By: Jason Milton on 11-18-2021 CK.MB Calc [Catalytic fraction]1.2 %0.00-2.50[facility] Serum or plasma creatine kinase MB measurement (mass/volume)Ordered By: Jason Milton on 92-48-6272YK.MB [Mass/Vol]1.0 ng/mL0.6-6.3FAkron Children's Hospitalerum or plasma glucose measurement (mass/volume)Ordered By: Jason Milton on 85-47-8173Ebrmhze [Mass/Vol]104 mg/bE64-068BdhmxtudjPomerene Hospital Comment on above:ADA recommended reference rangeRandom Glucose Reference Range is dependent on time and content of last meal. Glucose of more than 200 mg/dL in a nonstressed, ambulatory subject supports the diagnosisof Diabetes Mellitus. Serum or plasma potassium measurement (moles/volume)Ordered By: Jason Milton on 44-67-0369Unqcrvibb [Moles/Vol]4.6 mmol/L3.5-5.1FAkron Children's Hospitalerum or plasma sodium measurement (moles/volume)Ordered By: Jason Milton on 73-06-3797Ohyhjj [Moles/Vol]134 mmol/B222-028JgdytmjoqCleveland Clinic Hillcrest Hospitalerum or plasma total bilirubin measurement (mass/volume)Ordered By: Jason Milton on 02-45-1364Stxeoxeee [Mass/Vol]1.0 mg/dL0.3-1.2FAkron Children's Hospitalerum or plasma total carbon dioxide measurement (moles/volume)Ordered By: Jason Milton on 72-30-5422IH0 [Moles/Vol]21.7 mmol/L 22.0-30.0[facility] Hospitalerum or plasma urea nitrogen measurement (mass/volume)Ordered By: Jason Milton on 22-74-0079Ggjw nitrogen [Mass/Vol]10 mg/dL9-23[facility] HospitalTroponin I.cardiac [Mass/volume] in Serum or Plasma by High sensitivity methodOrdered By: Jason Milton on 77-32-5302Bprmtqvj I.cardiac High sensitivity method [Mass/Vol]3 pg/mL 0-15Pomerene HospitalXR Chest 2 Views*on 13-64-8165VP Chest 2 Views*COMPARISON: FINDINGS: The cardiomediastinal silhouette is unremarkable. The lungs are free of infiltrates effusions or consolidations. The bones and soft tissues are within normal limits. There are surgical clips in the region of the GE junction and upper abdomen. IMPRESSION: There are no infiltrates or effusions Report reported and signed by JANICE JERONIMO on 11/17/2021 1823NormalNorthern [place] Medical SpecialistQ - CULTURE,URINE,ROUTINEon [id number], URINE, ROUTINESEE NOTENormalNorthern [place] Medical SpecialistComment on above:Order Comment: [facility] performed at: QPT, [facility], [address] [facility], [address] [place] [address], [place], [address], Bariatric Nurse: Bob Snowden MD [facility] Collection Date/Time: [id number] [facility] Results Received Date/Time: [id number] [facility] Reported Date/Time: [id number] Comment: CULTURE, URINE, ROUTINE Micro Number: [id number] Test Status: Final Specimen Source: Urine Specimen Quality: Adequate Result: Mixed genital laurence isolated. These superficial bacteria are not indicative of a urinary tract infection. No further organism identification is warranted on this specimen. If clinically indicated, recollect clean-catch, mid-stream urine and transfer immediately to Urine Culture Transport Tube.Performed By: #### [id number] #### [facility] Default [address] [place], [place] [address]Tdehozkl Blood Counton 40-34-3956Yefjyutvjjo distribution width (RBC) [Ratio]17.6 %High11.0-15.0[facility] SpecialistComment on above:Performed By: #### LIPD, CBC, TSH reflex FT4, CMP #### [facility] [address] [place], [place] [id number] (Bld) [Volume fraction]40.9 %Xkicpo68.0-47.0 [facility] SpecialistComment on above:Performed By: #### LIPD, CBC, TSH reflex FT4, CMP #### [facility] [address] [place], [place] [id number] (Bld) [Mass/Vol]12.4 g/qAVmvzed93.6-15.5NoUniversity Hospitals [facility] SpecialistComment on above:Performed By: #### LIPD, CBC, TSH reflex FT4, CMP #### [facility] [address], [place] [id number] (RBC) [Entitic mass]24.8 pgLow27.0-33.0NoUniversity Hospitals [facility] SpecialistComment on above:Performed By: #### LIPD, CBC, TSH reflex FT4, CMP #### [facility] [address], [place] [id number] (RBC) [Mass/Vol]30.3 g/dLLow32.0-36.0[facility] SpecialistComment on above:Performed By: #### LIPD, CBC, TSH reflex FT4, CMP #### [facility] [address], [place] [id number] (RBC) [Entitic vol]82 wKEdesxd03-483Ynhpzcbq [facility] SpecialistComment on above:Performed By: #### LIPD, CBC, TSH reflex FT4, CMP #### [facility] [address], [place] [id number] mean volume (Bld) [Entitic vol]10.30 fLNormal 7.50-12.50NoUniversity Hospitals [facility] SpecialistComment on above:Performed By: #### LIPD, CBC, TSH reflex FT4, CMP #### [facility] [address], [place] [id number] (Bld) [#/Vol]284 10*3/xEYjmoew410-472Zkwypeok [facility] SpecialistComment on above:Performed By: #### LIPD, CBC, TSH reflex FT4, CMP #### [facility] [address], [place] [id number] (Bld) [#/Vol]4.99 10*6/uLNormal3.90-5.20NoUniversity [facility]als [facility] SpecialistComment on above:Performed By: #### LIPD, CBC, TSH reflex FT4, CMP #### [facility] [address], [place] [id number]-KJ71.6 hQNdwp40.0-50.0NoUniversity [facility] Specialist Comment on above:Performed By: #### LIPD, CBC, TSH reflex FT4, CMP #### [facility] [address], [place] [id number] (Bld) [#/Vol]11.3 10*3/uLHigh3.8-11.0[facility] SpecialistComment on above:Performed By: #### LIPD, CBC, TSH reflex FT4, CMP #### [facility] [address], [place] [id number] Metabolic Panelon [id number] [Mass/Vol] 4.2 g/dLNormal3.6-5.1[facility] SpecialistComment on above:Performed By: #### LIPD, CBC, TSH reflex FT4, CMP #### [facility] [address], [place] [id number]/Globulin [Mass ratio]1.6 {ratio}Normal1.0-2.5NoUniversity [facility]als [facility] SpecialistComment on above:Performed By: #### LIPD, CBC, TSH reflex FT4, CMP #### [facility] [address], [place] [id number] [Catalytic activity/Vol]88 U/RLdpnpa35-010Noklqguz [facility] SpecialistComment on above:Performed By: #### LIPD, CBC, TSH reflex FT4, CMP #### [facility] [address], [place] [id number] [Catalytic activity/Vol]18 U/LNormal6-33NoUniversity [facility]als [facility] SpecialistComment on above:Result Comment: 01/21/2021 Female reference range changed.Performed By: #### LIPD, CBC, TSH reflex FT4, CMP #### [facility] [address], [place] [id number] gap [Moles/Vol]20 mmol/HNvcdcq23-80Sovapkkd [facility] SpecialistComment on above:Result Comment: Effective 02/26/2019 reference range changed.Performed By: #### LIPD, CBC, TSH reflex FT4, CMP #### [facility] [address], [place] [id number] [Catalytic activity/Vol]17 U/LNormal9-34NoUniversity [facility]als [facility] SpecialistComment on above:Performed By: #### LIPD, CBC, TSH reflex FT4, CMP #### [facility] [address], [place] [id number]/CREA16 RatioNormal6-22NoUniversity [facility]als [facility] Specialist Comment on above:Performed By: #### LIPD, CBC, TSH reflex FT4, CMP #### [facility] [address], [place] [id number] [Mass/Vol]9.7 mg/dLNormal8.6-10.2[facility] SpecialistComment on above:Performed By: #### LIPD, CBC, TSH reflex FT4, CMP #### [facility] [address], [place] [id number] [Moles/Vol]101 mmol/KSimshm14-369Hmwssoud [facility] SpecialistComment on above:Performed By: #### LIPD, CBC, TSH reflex FT4, CMP #### [facility] [address], [place] [id number] [Moles/Vol]21 mmol/WKlxrmr98-43Iyemrnwf [facility] SpecialistComment on above:Performed By: #### LIPD, CBC, TSH reflex FT4, CMP #### [facility] [address], [place] [id number] [Mass/Vol]1.0 mg/dLNormal0.6-1.4[facility] SpecialistComment on above:Performed By: #### LIPD, CBC, TSH reflex FT4, CMP #### [facility] [address], [place] [id number] mL/min/1.35s2Fhmbol>60[facility] SpecialistComment on above:Performed By: #### LIPD, CBC, TSH reflex FT4, CMP #### [facility] [address], [place] [id number] mL/min/1.51a6Fkfevy>60[facility]ern [place] [facility] SpecialistComment on above:Performed By: #### LIPD, CBC, TSH reflex FT4, CMP #### [facility] [address], [place] [id number] (S) [Mass/Vol]2.6 g/dLNormal1.9-3.7[facility] SpecialistComment on above:Performed By: #### LIPD, CBC, TSH reflex FT4, CMP #### [facility] [address], [place] [id number] [Mass/Vol]106 mg/xZAfep07-85Ougqotoq [facility] SpecialistComment on above:Result Comment: For FASTING Glucose --- ADA reference ranges: Normal 65-99 mg/dl Prediabetes 100-125 Diabetes >/= 126Performed By: #### LIPD, CBC, TSH reflex FT4, CMP #### [facility] [address], [place] [id number] [Moles/Vol]4.4 mmol/LNormal3.5-5.5NoUniversity [facility]als [facility] SpecialistComment on above:Performed By: #### LIPD, CBC, TSH reflex FT4, CMP #### [facility] [address], [place] [id number] [Mass/Vol]6.8 g/dLNormal6.1-8.1[facility] SystemCom[facility] on above:Performed By: #### LIPD, CBC, TSH reflex FT4, CMP #### [facility] [address], [place] [id number] [Moles/Vol]138 mmol/BNlystr396-556KiulbmdrParma Community General Hospital on above:Performed By: #### LIPD, CBC, TSH reflex FT4, CMP #### [facility] [address], [place] [id number]<0.3NormalNoChillicothe VA Medical CenterComharbor oaks hospital on above:Performed By: #### LIPD, CBC, TSH reflex FT4, CMP #### [facility] [address], [place] [id number] nitrogen [Mass/Vol]15 mg/dLNormal7-25NoUniversity [facility] SpecialistKindred Hospital on above:Performed By: #### LIPD, CBC, TSH reflex FT4, CMP #### [facility] [address], [place] [id number] Panelon [id number] [Mass/Vol]217 mg/dLHigh 125-200NoParma Community General Hospital on above:Result Comment: Low risk < 200mg/dL Borderline risk 201-239 mg/dl High risk > or equal to 240Performed By: #### LIPD, CBC, TSH reflex FT4, CMP #### [facility] [address], [place] [id number] in HDL [Mass/Vol]38 mg/dLLow>40NoUniversity [facility] SpecialistComment on above:Result Comment: High Cardiovascular Risk HDL <40 mg/dL Low Cardiovascular Risk HDL > or equal to 60 mg/dlPerformed By: #### LIPD, CBC, TSH reflex FT4, CMP #### [facility] [address], [place] [id number] in LDL [Mass/Vol]130 mg/dLNormidNoUniversity [facility]als [facility] SpecialistComment on above:Result Comment: LDL ATP III CLASSIFICATION LDL less than 100 mg/dl Optimal LDL 100-129 mg/dl Near or above optimal LDL 130-159 Borderline high LDL 160-189 High LDL greater than 189 mg/dl Very HighPerformed By: #### LIPD, CBC, TSH reflex FT4, CMP #### [facility] [address], [place] [id number] in VLDL [Mass/Vol]49 mg/dLNormOhio State East Hospital SpecialistComment on above:Performed By: #### LIPD, CBC, TSH reflex FT4, CMP #### [facility] [address], [place] [id number].total/Cholesterol in HDL [Mass ratio]6 {ratio} NormalNoChillicothe VA Medical CenterComment on above:Performed By: #### LIPD, CBC, TSH reflex FT4, CMP #### [facility] [address], [place] [id number] [Mass/Vol]246 mg/eLEswc49-178Mxppolje [facility] SpecialistComment on above:Result Comment: TRIG ATPIII CLASSIFICATIONS TRIG less than 150 mg/dl Normal TRIG 150-199 mg/dl Borderline High TRIG 200-500 mg/dl High TRIG greather than 500 mg/dl Very HighPerformed By: #### LIPD, CBC, TSH reflex FT4, CMP #### [facility] [address], [place] [id number] w/ Reflex to Free T4on [id number] uIU/mLNormal 0.400-4.500[facility] SpecialistComment on above:Performed By: #### LIPD, CBC, TSH reflex FT4, CMP #### [facility] [address] [facility] [place] [id number], ,Urineon [id number] HCG ( test) Ql (U)NegativeNormalNEGMercy Charlotte Hungerford HospitalComment on above:Result Comment: Specimens with hCG levels near the threshold of the test (25 mIU/mL) may give a negative or indeterminate result. In such cases, another test should be performed with a new specimen in 48-72 hours. If early is suspected clinically in this setting, correlation with quantitative serum b-hCG level is suggested. [employer] has confirmed the use of plasma for this test. This has not been cleared or approved by the U.S. Food and Drug Administration. The FDA has determined that such clearance is not necessary.Performed By: #### BHCG #### [address] [place] [address] #### PROG #### [address] [address] Surgical Pathologyon [id number] Pathology(NOTE) [id number] [facility] ANATOMIC PATHOLOGY [address] [place] [id number] SURGICAL PATHOLOGY CONSULTATION Patient Name: MORRO MALONEYSara [facility] Rec: [id number] Path Number: [id number] Collected: 09/28/2018 Received: 09/29/2018 Reported: 10/02/2018 10:04 -- Diagnosis -- GALLBLADDER: CHOLELITHIASIS, CHRONIC CHOLECYSTITIS AND CHOLESTEROLOSIS. Franko Borden Electronically Signed Out ajb/10/02/2018 Clinical Information Pre-op Diagnosis: CHOLECYSTITIS, GALLSTONES Operative Findings: GALLBLADDER Operation Performed: LAPAROSCOPIC CHOLECYSTECTOMY Source of Specimen 1: GALLBLADDER (A) Gross Description MORRO CHIARA -, GALLBLADDER 5.8 x 3.2 x 2.2 [...] mucosa 1cs. tm Microscopic Description Microscopic examination performed.[facility] Hospitalment on above: Performed By: #### AHCV, HIVCMB #### [employer] [address] [place] [id number] #### GLYHGB #### [address] [place] [address] [place] GALLBLADDER RUQon [id number] GALLBLADDER RUQEXAMINATION: GALLBLADDER ULTRASOUND 09/25/2018 8:01 am COMPARISON: None. HISTORY: ORDERING SYSTEM PROVIDED HISTORY: Abdominal pain, right upper quadrant FINDINGS: Visualized portions of the liver without acute abnormality. No focal hepatic mass lesion identified. Parenchymal echogenicity is grossly within normal limits. Borderline gallbladder wall thickening measuring 3-4 mm. Multiple intraluminal calculi identified. Warp Doffer documents a negative sonographic Magana's sign. The common bile duct is normal and measures 4-5 mm. IMPRESSION: Cholelithiasis and borderline gallbladder wall thickening. No evidence for pericholecystic fluid or sonographic Magana's sign. IMPRESSION: Unremarkable right upper quadrant ultrasound. Interpreted by: Chencho Fonseca MD Signed by: Chencho Fonseca MD 09/25/18 Final resultNormMartins Ferry HospitalCult,Urineon [id number],UrineSpecimen Description .CLEAN CATCH URINE Special Requests NOT REPORTED Culture NO SIGNIFICANT GROWTH Report Status FINAL 08/03/2018NoShelby Memorial Hospitalment on above: Performed By: #### BHCG #### [address] [place] [address] #### PROG #### Pain Doctor [employer] [address] [place] [phone] CBCon [id number] distribution width (RBC) [Ratio]16.2 % High11.8-14.4[facility] HospitalComment on above:Performed By: #### BHCG #### [address] [place] [address] #### PROG #### [address] [address] Hematocrit (Bld) [Volume fraction]31.0 %Low36.3-47.1MMetroHealth Cleveland Heights Medical CenterComment on above:Performed By: #### BHCG #### [address] [place] [address] #### PROG #### [address] [address] Hemoglobin (Bld) [Mass/Vol]9.6 g/dLLow11.9-15.1MMetroHealth Cleveland Heights Medical CenterComment on above:Performed By: #### ARACELIG #### [address] [place] [address] #### PROG #### [address] [address] MCH (RBC) [Entitic mass]25.2 bdIqsudx89.2-33.5[facility] Comment on above:Performed By: #### BHCG #### [address] [place] [address] #### PROG #### [address] [address] MCHC (RBC) [Mass/Vol]31.0 g/dMLsdrsz08.4-34.8[facility] Comment on above:Performed By: #### BHCG #### [address] [place] [address] #### PROG #### [address] [place] [address] MCV (RBC) [Entitic vol]81.4 fLLow82.6-102.9[facility] Comment on above:Performed By: #### LOVELY #### [address] [place] [address] #### PROG #### [address] [address] NRBC Automated0.0 per 100 WBCNormal0.0[facility] Memorial HospitalComment on above:Performed By: #### LOVELY #### [address] [place] [address] #### PROG #### [address] [address] Platelet mean volume (Bld) [Entitic vol]10.5 fLNormal8.1-13.5[facility] Memorial HospitalComment on above:Performed By: #### LOVELY #### [address] [place] [address] #### PROG #### [address] [address] Platelets (Bld) [#/Vol]266 10*3/aQAbuizs705-223AczusBrown Memorial HospitalComment on above:Performed By: #### ARACELIG #### [address] [place] [address] #### PROG #### [address] [address] RBC (Bld) [#/Vol]3.81 10*6/uLLow3.95-5.11[facility] Comment on above:Performed By: #### ARACELIG #### [address] [place] [address] #### PROG #### [address] [address] WBC (Bld) [#/Vol]18.9 10*3/uLHigh3.5-11.3MMetroHealth [facility] Comment on above:Performed By: #### ARACELIG #### [address] [place] [address] #### PROG #### [address] [address] Erythrocyte distribution width (RBC) [Ratio]16.3 %High11.8-14.4 [facility] HospitalComment on above:Performed By: #### ARACELIG #### [address] [place] [address] #### PROG #### [address] [address] Hematocrit (Bld) [Volume fraction]34.6 %Low36.3-47.1MMetroHealth Cleveland Heights Medical CenterComment on above:Performed By: #### BHCG #### [address] [place] [address] #### PROG #### [address] [address] Hemoglobin (Bld) [Mass/Vol]10.4 g/dLLow11.9-15.1MMetroHealth Cleveland Heights Medical CenterComment on above:Performed By: #### BHCG #### [address] [place] [address] #### PROG #### [address] [address] MCH (RBC) [Entitic mass]24.9 pgLow25.2-33.5[facility] Comment on above:Performed By: #### ARACELIG #### [address] [place] [address] #### PROG #### [address] [address] MCHC (RBC) [Mass/Vol]30.1 g/pDJgxxau48.4-34.8[facility] Comment on above:Performed By: #### LOVELY #### [address] [place] [id number] #### PROG #### [address] [address] MCV (RBC) [Entitic vol]83.0 bJWmrdfm85.6-102.9[facility] Comment on above:Performed By: #### LOVELY #### [address] [place] [address] #### PROG #### [address] [address] NRBC Automated0.0 per 100 WBCNormal0.0[facility] Memorial HospitalComment on above:Performed By: #### LOVELY #### [address] [place] [address] #### PROG #### [address] [address] Platelet mean volume (Bld) [Entitic vol]10.2 fLNormal8.1-13.5[facility] HospitalComment on above:Performed By: #### ARACELIG #### [address] [place] [address] #### PROG #### [address] [address] Platelets (Bld) [#/Vol]307 10*3/jKPhmxfk585-942EzwaqBrown Memorial HospitalComment on above:Performed By: #### BHCG #### [address] [place] [address] #### PROG #### [address] [address] RBC (Bld) [#/Vol]4.17 10*6/uLNormal3.95-5.11[facility] Comment on above:Performed By: #### BHCG #### [address] [place] [address] #### PROG #### [address] [address] WBC (Bld) [#/Vol]13.1 10*3/uLHigh3.5-11.3MMetroHealth [facility] Comment on above:Performed By: #### BHCG #### [address] [place] [address] #### PROG #### [address] [address] Comp Metabolic Profon 08-02-2018(cont.)[facility] Comment on above:Result Comment: Average GFR for 30-39 years old: 107 mL/min/1.73sq m Chronic Kidney Disease: <60 mL/min/1.73sq m Kidney failure: <15 mL/min/1.73sq m eGFR calculated using average adult body mass. Additional eGFR calculator available at: http://www.[employer].com/multiple_crcl_2012.htmPerformed By: #### BHCG #### [address] [place] [address] #### PROG #### [address] [address] Albumin [Mass/Vol]3.0 g/dLLow3.5-5.2MMetroHealth Cleveland Heights Medical CenterComment on above:Performed By: #### LOVELY #### [address] [place] [address] #### PROG #### [address] [address] Albumin/Globulin [Mass ratio]1.2 {ratio}Normal1.0-2.5[facility] Memorial HospitalComment on above:Performed By: #### LOVELY #### [address] [place] [address] #### PROG #### [address] [address] Alkaline Pypc591 U/DHknp68-095UnwtsBrown Memorial HospitalComment on above:Performed By: #### LOVELY #### [address] [place] [address] #### PROG #### [address] [address] ALT [Catalytic activity/Vol]60 U/LHigh5-33[facility] Comment on above:Performed By: #### LOVELY #### [address] [place] [address] #### PROG #### [address] [address] Anion gap [Moles/Vol]12 mmol/LNormal9-17[facility] Comment on above:Performed By: #### ARACELIG #### [address] [place] [address] #### PROG #### [address] [address] AST [Catalytic activity/Vol]54 U/LHigh<32[facility] Comment on above:Performed By: #### LOVELY #### [address] [place] [address] #### PROG #### [address] [address] Bilirubin Ql (U)0.89 mg/dLNormal0.3-1.2MMetroHealth Cleveland Heights Medical CenterComment on above:Performed By: #### LOVELY #### [address] [place] [address] #### PROG #### [address] [address] BUN/CRE Ynjcg68Sdumue7-56Hulhs Tiffin HospitalComment on above: Performed By: #### LOVELY #### [address] [place] [address] #### PROG #### [address] [address] Calcium [Mass/Vol]9.1 mg/dLNormal8.6-10.4[facility] Comment on above:Performed By: #### ARACELIG #### [address] [place] [address] #### PROG #### [address] [address] Chloride [Moles/Vol]102 mmol/VCiejwe71-524WbqdmBrown Memorial Hospital Comment on above:Performed By: #### ARACELIG #### [address] [place] [address] #### PROG #### [address] [address] CO2 [Moles/Vol]21 mmol/FBttssq28-83RbanwBrown Memorial HospitalComment on above:Performed By: #### ARACELIG #### [address] [place] [address] #### PROG #### [address] [address] Creatinine [Mass/Vol]0.66 mg/dLNormal0.50-0.90[facility] Comment on above:Performed By: #### BHCG #### [address] [place] [address] #### PROG #### [address] [address] GFR, Amer>60Normal>60MerHolzer Medical Center – Jackson HospitalComment on above: Performed By: #### BHCG #### [address] [place] [address] #### PROG #### [address] [address] GFR,non Amer>60Normal>60[facility] HospitalComment on above:Performed By: #### ROLFCG #### [address] [place] [address] #### PROG #### [address] [address] Glucose [Mass/Vol]144 mg/pDWufe60-25Ebnsp [facility]ger[facility] HospitalComment on above:Performed By: #### BHCG #### [address] [place] [address] #### PROG #### [address] [address] Potassium [Moles/Vol]4.8 mmol/LNormal3.7-5.3MMetroHealth [facility] Comment on above:Performed By: #### BHCG #### [address] [place] [address] #### PROG #### [address] [address] Protein [Mass/Vol]5.6 g/dLLow6.4-8.3MMetroHealth Cleveland Heights Medical CenterComment on above:Performed By: #### ARACELIG #### [address] [place] [address] #### PROG #### [address] [address] Sodium [Moles/Vol]135 mmol/KHflrmd838-502MlinwBrown Memorial Hospital Comment on above:Performed By: #### ARACELIG #### [address] [place] [address] #### PROG #### [address] [address] Staging:[facility] Medical CenterComment on above:Result Comment: Stage 1: Some kidney damage normal GFR Stage 2: Mild kidney damage GFR 60-89 Stage 3: Moderate kidney damage GFR 30-59 Stage 4: Severe kidney damage GFR 15-29 Stage 5: Severe kidney damage GFR <15 ESRD - chronic treatment by dialysis or transplantPerformed By: #### LOVELY #### [address] [place] [address] #### PROG #### [address] [address] Urea nitrogen [Mass/Vol]8 mg/dLNormal6-20[facility] Comment on above:Performed By: #### ARACELIG #### [address] [place] [address] #### PROG #### [address] [address] (cont.)NormalBrown Memorial HospitalComment on above:Result Comment: Average GFR for 30-39 years old: 107 mL/min/1.73sq m Chronic Kidney Disease: <60 mL/min/1.73sq m Kidney failure: <15 mL/min/1.73sq m eGFR calculated using average adult body mass. Additional eGFR calculator available at: http://www.[employer]/multiple_crcl_2012.htmPerformed By: #### ARACELIG #### [address] [place] [address] #### PROG #### [address] [place] [address] Albumin [Mass/Vol]3.3 g/dLLow3.5-5.2MMetroHealth Cleveland Heights Medical CenterComment on above:Performed By: #### LOVELY #### [address] [place] [address] #### PROG #### [address] [address] Albumin/Globulin [Mass ratio]1.1 {ratio}Normal1.0-2.5[facility] Memorial HospitalComment on above:Performed By: #### ARACELIG #### [address] [place] [address] #### PROG #### [address] [place] [address] Alkaline Xwor828 U/ZVedk09-803NcljzBrown Memorial HospitalComment on above:Performed By: #### ARACELIG #### [address] [place] [address] #### PROG #### [address] [place] [address] ALT [Catalytic activity/Vol]60 U/LHigh5-33[facility] Comment on above:Performed By: #### ARACELIG #### [address] [place] [address] #### PROG #### [address] [address] Anion gap [Moles/Vol]14 mmol/LNormal9-17[facility] Comment on above:Performed By: #### LOVELY #### [address] [place] [address] #### PROG #### [address] [address] AST [Catalytic activity/Vol]53 U/LHigh<32[facility] Comment on above:Performed By: #### LOVELY #### [address] [place] [address] #### PROG #### [address] [address] Bilirubin Ql (U)0.64 mg/dLNormal0.3-1.2MMetroHealth Cleveland Heights Medical CenterComment on above:Performed By: #### LOVELY #### [address] [place] [address] #### PROG #### [address] [address] BUN/CRE Wnmie69Crpgwt0-70Kkbac Tiffin HospitalComment on above: Performed By: #### LOVELY #### [address] [place] [address] #### PROG #### [address] [address] Calcium [Mass/Vol]9.2 mg/dLNormal8.6-10.4[facility] Comment on above:Performed By: #### ARACELIG #### [address] [place] [address] #### PROG #### [address] [address] Chloride [Moles/Vol]100 mmol/QFwqeyn65-227YerejBrown Memorial Hospital Comment on above:Performed By: #### BHCG #### [address] [place] [address] #### PROG #### [address] [address] CO2 [Moles/Vol]22 mmol/PLhihqu80-25RpdrxBrown Memorial HospitalComment on above:Performed By: #### BHCG #### [address] [place] [address] #### PROG #### [address] [address] Creatinine [Mass/Vol]0.62 mg/dLNormal0.50-0.90[facility] Comment on above:Performed By: #### ARACELIG #### [address] [place] [address] #### PROG #### [address] [address] GFR, Amer>60Normal>60[facility] HospitalComment on above: Performed By: #### BHCG #### [address] [place] [address] #### PROG #### [address] [address] GFR,non Amer>60Normal>60[facility] HospitalComment on above:Performed By: #### BHCG #### [address] [place] [address] #### PROG #### [address] [address] Glucose [Mass/Vol]90 mg/sPMabgvo89-46Uhyao Tiffin HospitalComment on above:Performed By: #### ROLFCG #### [address] [place] [address] #### PROG #### [address] [address] Potassium [Moles/Vol]4.3 mmol/LNormal3.7-5.3MMetroHealth [facility] Comment on above:Performed By: #### ARACELIG #### [address] [place] [address] #### PROG #### [address] [address] Protein [Mass/Vol]6.3 g/dLLow6.4-8.3MHolzer Health System HospitalComment on above:Performed By: #### ARACELIG #### [address] [place] [address] #### PROG #### [address] [address] Sodium [Moles/Vol]136 mmol/CZqgjvn828-015HdzxgBrown Memorial Hospital Comment on above:Performed By: #### ROLFCG #### [address] [place] [address] #### PROG #### [address] [address] Staging:NormalChillicothe Hospital HospitalComment on above:Result Comment: Stage 1: Some kidney damage normal GFR Stage 2: Mild kidney damage GFR 60-89 Stage 3: Moderate kidney damage GFR 30-59 Stage 4: Severe kidney damage GFR 15-29 Stage 5: Severe kidney damage GFR <15 ESRD - chronic treatment by dialysis or transplantPerformed By: #### LOVELY #### [address] [place] [address] #### PROG #### [address] [address] Urea nitrogen [Mass/Vol]7 mg/dLNormal6-20[facility] Comment on above:Performed By: #### LOVELY #### [address] [place] [address] #### PROG #### [address] [address] Drug Scr, Abuse, Uron 07-30-4479Nidaxylnlnx(s),UrNegativeNormalNEG [facility] HospitalComment on above:Performed By: #### LOVELY #### [address] [place] [address] #### PROG #### [address] [address] Barbiturate(s),UrNegativeNormalNEGChillicothe Hospital HospitalComment on above:Performed By: #### ARACELIG #### [address] [place] [address] #### PROG #### [address] [address] Base excess Calc (Bld) [Moles/Vol]NegativeNormalNEGChillicothe Hospital HospitalComment on above:Performed By: #### ARACELIG #### [address] [place] [address] #### PROG #### [address] [address] Benzodiazepine(s)NegativeNormalNEGMercy Lovely HospitalComment on above:Performed By: #### ARACELIG #### [address] [place] [address] #### PROG #### [address] [address] Buprenorphrine, UrNegativeNormalNEGMercy Lovely HospitalComment on above:Performed By: #### BHCG #### [address] [place] [address] #### PROG #### [address] [address] Cannabinoid(s),UrNegativeNormalNEGMercy Lovely HospitalComment on above:Performed By: #### BHCG #### [address] [place] [address] #### PROG #### [address] [address] Methadone Ql (U)NegativeNormalNEGMercy Lovely HospitalComment on above:Performed By: #### BHCG #### [address] [place] [address] #### PROG #### [address] [address] Methamphetamine, UrNegativeNormalNEGMercy Lovely HospitalComment on above:Performed By: #### BHCG #### [address] [place] [address] #### PROG #### [address] [address] Opiate(s), UrNegativeNormalNEGMercy Lovely HospitalComment on above:Performed By: #### BHCG #### [address] [place] [address] #### PROG #### [address] [address] Oxycodone, UrineNegativeNormalNEGMercy Lovely HospitalComment on above:Performed By: #### BHCG #### [address] [place] [address] #### PROG #### [address] [address] Phencyclidine, UrNegativeNormalNEGMercy Lovely HospitalComment on above:Performed By: #### BHCG #### [address] [place] [address] #### PROG #### [address] [address] Propoxyphene,UrineNegativeNormalNEGMercy Lovely HospitalComment on above:Performed By: #### BHCG #### [address] [place] [address] #### PROG #### [address] [address] Tricyclic antidepressants Screen Ql (U)NegativeNormalNEGMercy Lovely HospitalComment on above:Result Comment: Drug screen results are to be used for medical purposes only. All positive results are unconfirmed. Testing for employment or legal uses should be sent to a reference laboratory for confirmation.Performed By: #### BHCG #### [address] [place] [address] #### PROG #### [address] [address] Interpretive InfoNOT REPORTEDNormalMercy Lovely HospitalComment on above:Performed By: #### BHCG #### [address] [place] [address] #### PROG #### [address] [address] MDMA, UrineNOT REPORTEDNormalNEGBrown Memorial HospitalComment on above:Performed By: #### BHCG #### [address] [place], [place] [address] #### PROG #### [address] [id number] Lactate Dehydrogenaseon 57-41-5839QXF [Catalytic activity/Vol]234 U/PIica996-009RmfsuBrown Memorial HospitalComment on above:Performed By: #### BHCG #### [address] [place], [place] [address] #### PROG #### [address] [id number] Surgical Pathologyon [id number] Pathology(NOTE) [id number] [facility] [employer] CONSULTING PATHOLOGISTS [facility] ANATOMIC PATHOLOGY [address] [place] [phone] SURGICAL PATHOLOGY CONSULTATION Patient Name: MORRO MALONEY [facility] Rec: [id number] Path Number: [id number] Collected: 08/02/2018 Received: 08/02/2018 Reported: 08/03/2018 15:34 -- Diagnosis -- PLACENTA OF BABY A: - THREE-VESSEL UMBILICAL CORD WITH MARGINAL INSERTION. - ACCESSORY LOBE. PLACENTA OF BABY B: - NO GROSS OR HISTOLOGIC ABNORMALITY IDENTIFIED. Satish Rocha, Electronically Signed Out sls/08/03/2018 Clinical Information Operative Findings: TWIN PLACENTA @ [...] Normal Insertion into surface: Marginal MEMBRANES Color: [place]-ge, mostly translucent with a partial circummarginate insertion [...] Normal Insertion into surface: Paracentral MEMBRANES Color: [place]-ge, translucent with a partial circummarginate insertion over [...] in villous capillaries: Not increased Other: Few microcalcificationsNormalBrown Memorial HospitalComment on above: Performed By: #### BHCG #### [facility] [address] [place] [address] #### PROG #### [address] [address] Type + Screenon 32-26-2780Nsau + ScreenSample Expiration 08/04/2018 Arm Band Number [id number] ABO/Rh(D) O POSITIVE Antibody Screen NEGATIVENormalMercy Lovely HospitalComment on above:Performed By: #### LOVELY #### [address] [place] [address] #### PROG #### [address] [address] Uric Acidon 12-85-3546Redls [Mass/Vol]5.9 mg/dLHigh2.4-5.7MerHolzer Medical Center – Jackson HospitalComment on above:Performed By: #### LOVELY #### [address] [place] [address] #### PROG #### [address] [address] Urinalysis, Routineon 32-22-8139Pvtkfqqmqrf Acid,UrNegativeNormal NEGMerHolzer Medical Center – Jackson HospitalComment on above:Performed By: #### LOVELY #### [address] [place] [address] #### PROG #### [address] [address] Bilirubin, SemiQt,UrSMALLAbnormalNEGMerHolzer Medical Center – Jackson HospitalComment on above:Performed By: #### LOVELY #### [address] [place] [address] #### PROG #### [address] [address] Color (U)YELLOWNormalYELMercy Lovely HospitalComment on above: Performed By: #### LOVELY #### [address] [place] [address] #### PROG #### [address] [address] Glucose Ql (U)NegativeNormalNEGMerHolzer Medical Center – Jackson HospitalComment on above:Performed By: #### ROLFCG #### [address] [place] [address] #### PROG #### [address] [address] Hemoglobin, Ur3+AbnormalNEGMerHolzer Medical Center – Jackson HospitalComment on above: Performed By: #### LOVELY #### [address] [place] [address] #### PROG #### [address] [address] Leukocyte esterase Test strip Ql (U)SMALLAbnormalNEGMerHolzer Medical Center – Jackson HospitalComment on above:Performed By: #### LOVELY #### [address] [place] [address] #### PROG #### [address] [address] Nitrite,UrNegativeNormalNEGChillicothe Hospital HospitalComment on above: Performed By: #### LOVELY #### [address] [place] [address] #### PROG #### [address] [address] pH (U)6.0 [pH]Normal5.0-9.0[facility] HospitalComment on above: Performed By: #### ARACELIG #### [address] [place] [address] #### PROG #### [address] [address] Protein Ql (U)1+AbnormalNEGBrown Memorial HospitalComment on above: Performed By: #### LOVELY #### [address] [place] [address] #### PROG #### [address] [address] Specific gravity (U) [Rel density]1.246Qugo0.010-1.020[facility] HospitalComment on above:Performed By: #### ARACELIG #### [address] [place] [address] #### PROG #### [address] [address] TurbidityCLEARNormalCLEARChillicothe Hospital HospitalComment on above: Performed By: #### LOVELY #### [address] [place] [address] #### PROG #### [address] [address] Urobilinogen,UrNormalNormalNORMBrown Memorial HospitalComment on above:Performed By: #### ARACELIG #### [address] [place] [address] #### PROG #### [address] [address] CommentNOT REPORTEDNormalChillicothe Hospital HospitalComment on above: Performed By: #### ARACELIG #### [address] [place] [address] #### PROG #### [address] [address] Urinalysis,Microon 08-02-2018-----NormalBrown Memorial Hospital Comment on above:Performed By: #### BHCG #### [address] [place] [address] #### PROG #### [address] [address] Epithelial cells LM.HPF (Urine sed) [#/Area]0 TO 1Imymdb9-62Qltdu Lovely HospitalComment on above:Performed By: #### LOVELY #### [address] [place] [address] #### PROG #### [address] [address] RBC (U) [#/Vol]10 TO 85Kvfxqd3-2Qttbq Lovely HospitalComment on above:Performed By: #### LOVELY #### [address] [place] [address] #### PROG #### [address] [address] WBC (U) [#/Vol]5 TO 26Rcgmcm8-0Ohidl Lovely HospitalComment on above:Performed By: #### LOVELY #### [address] [place] [address] #### PROG #### [address] [address] Amorphous sediment LM Ql (Urine sed)NOT REPORTEDNormalNONEMey Lovely HospitalComment on above:Performed By: #### ARACELIG #### [address] [place] [address] #### PROG #### [address] [address] Bacteria LM.HPF (Urine sed) [#/Area]NOT REPORTEDNormalNONEMercy Lovely HospitalComment on above:Performed By: #### ARACELIG #### [address] [place] [address] #### PROG #### [address] [address] Casts LM.LPF (Urine sed) [#/Area]NOT REPORTEDNormalMercy Lovely HospitalComment on above:Performed By: #### ROLFCG #### [address] [place] [address] #### PROG #### [address] [address] Crystals LM Nom (Urine sed)NOT REPORTEDNormalNONEMercDunlap Memorial Hospital HospitalComment on above:Performed By: #### ARACELIG #### [address] [place] [address] #### PROG #### [address] [address] Epithelial, RenalNOT XEEPCYSKFzcpad7Objzx Lovely HospitalComment on above:Performed By: #### ARACELIG #### [address] [place] [address] #### PROG #### [address] [address] Mucus StrandsNOT REPORTEDNormalNONEMercDunlap Memorial Hospital HospitalComment on above:Performed By: #### BHCG #### [address] [place] [address] #### PROG #### [address] [address] Other ObservationsNOT REPORTEDNormalNREQChillicothe Hospital Hospital Comment on above:Performed By: #### BHCG #### [address] [place] [address] #### PROG #### [address] [address] TrichomonasNOT REPORTEDWVUMedicine Harrison Community HospitalComment on above:Performed By: #### BHCG #### [address] [place] [address] #### PROG #### [address] [address] Yeast LM Ql (Urine sed)NOT REPORTEDWVUMedicine Harrison Community Hospital Comment on above:Performed By: #### ARACELIG #### [address] [place] [address] #### PROG #### [address] [address] CBC with Diffon [id number]. Basophil0.05 k/uLNormal0.00-0.20 [facility] HospitalComment on above:Performed By: #### BHJaseG #### [address] [place] [address] #### PROG #### [address] [address] Abs.Imm.Granulocyte0.05 k/uLNormal0.00-0.30[facility] Comment on above:Performed By: #### BHCG #### [address] [place] [address] #### PROG #### [address] [address] Abs.Neutrophil (Seg)6.50 k/uLNormal1.50-8.10[facility] Comment on above:Performed By: #### BHCG #### [address] [place] [address] #### PROG #### [address] [address] Basophils/100 WBC (Bld)1 %Normal0-2MHolzer Health System HospitalComment on above:Performed By: #### ARACELIG #### [address] [place] [id number] #### PROG #### [address] [address] Eosinophils (Bld) [#/Vol]0.41 10*3/uLNormal0.00-0.44[facility] HospitalComment on above:Performed By: #### ARACELIG #### [address] [place] [address] #### PROG #### [address] [address] Eosinophils/100 WBC (Bld)4 %Normal1-4[facility] HospitalComment on above:Performed By: #### LOVELY #### [address] [place] [address] #### PROG #### [address] [address] Erythrocyte distribution width (RBC) [Ratio]16.0 %High11.8-14.4 [facility] HospitalComment on above:Performed By: #### ARACELIG #### [address] [place] [address] #### PROG #### [address] [address] Hematocrit (Bld) [Volume fraction]35.8 %Low36.3-47.1MHolzer Health System HospitalComment on above:Performed By: #### ARACELIG #### [address] [place] [address] #### PROG #### [address] [address] Hemoglobin (Bld) [Mass/Vol]10.9 g/dLLow11.9-15.1MMetroHealth Cleveland Heights Medical CenterComment on above:Performed By: #### ROLFCG #### [address] [place] [address] #### PROG #### [address] [address] Immature granulocytes (Bld) [#/Vol]1 %Gpra0LgqlmBrown Memorial Hospital Comment on above:Performed By: #### ROLFCG #### [address] [place] [address] #### PROG #### [address] [address] Lymphocytes (Bld) [#/Vol]3.07 10*3/uLNormal1.10-3.70[facility] HospitalComment on above:Performed By: #### ARACELIG #### [address] [place] [address] #### PROG #### [address] [address] Lymphocytes/100 WBC (Bld)28 %Sdssyn15-48WugdzBrown Memorial Hospital Comment on above:Performed By: #### BHCG #### [address] [place] [address] #### PROG #### [address] [address] MCH (RBC) [Entitic mass]25.6 pjJtyhfe48.2-33.5[facility] Comment on above:Performed By: #### BHCG #### [address] [place] [address] #### PROG #### [address] [address] MCHC (RBC) [Mass/Vol]30.4 g/aPBzvxxh05.4-34.8[facility] Comment on above:Performed By: #### LOVELY #### [address] [place] [address] #### PROG #### [address] [address] MCV (RBC) [Entitic vol]84.0 kPDdavvt52.6-102.9[facility] Comment on above:Performed By: #### LOVELY #### [address] [place] [address] #### PROG #### [address] [address] Monocytes (Bld) [#/Vol]0.84 10*3/uLNormal0.10-1.20[facility] HospitalComment on above:Performed By: #### LOVELY #### [address] [place] [address] #### PROG #### [address] [address] Monocytes/100 WBC (Bld)8 %Normal3-12[facility] HospitalComment on above:Performed By: #### ARACELIG #### [address] [place] [address] #### PROG #### [address] [address] Neutrophil (Seg)58 %Dfxcmx12-20Tdyis Tiffin HospitalComment on above:Performed By: #### ARACELIG #### [address] [place] [address] #### PROG #### [address] [address] NRBC Automated0.0 per 100 WBCNormal0.0[facility] HospitalComment on above:Performed By: #### ARACELIG #### [address] [place] [address] #### PROG #### [address] [address] Platelet mean volume (Bld) [Entitic vol]10.4 fLNormal8.1-13.5[facility] HospitalComment on above:Performed By: #### LOVELY #### [address] [place] [address] #### PROG #### [address] [address] Platelets (Bld) [#/Vol]260 10*3/uWVaslbq966-878XtdxzBrown Memorial HospitalComment on above:Performed By: #### ARACELIG #### [address] [place] [address] #### PROG #### [address] [address] RBC (Bld) [#/Vol]4.26 10*6/uLNormal3.95-5.11[facility] Comment on above:Performed By: #### ARACELIG #### [address] [place] [address] #### PROG #### [address] [address] WBC (Bld) [#/Vol]10.9 10*3/uLNormal3.5-11.3MMetroHealth [facility] Comment on above:Performed By: #### BHCG #### [address] [place] [address] #### PROG #### [address] [address] Auto Diff PerformedNOT REPORTEDNoWVUMedicine Harrison Community Hospital HospitalComment on above:Performed By: #### BHCG #### [address] [place] [address] #### PROG #### [address] [address] Platelets (Bld) [#/Vol]NOT REPORTEDLakeHealth TriPoint Medical Center Comment on above:Performed By: #### BHCG #### [address] [place] [address] #### PROG #### [address] [address] RBC morphology finding Nom (Bld)NOT REPORTEDLakeHealth TriPoint Medical CenterComment on above:Performed By: #### BHCG #### [address] [place] [address] #### PROG #### [address] [address] WBC MorphologyNOT REPORTEDAultman Orrville Hospital HospitalComment on above:Performed By: #### BHCG #### [address] [place] [address] #### PROG #### [address] [address] Comp Metabolic Profon 07-22-2018(cont.)[facility] Comment on above:Result Comment: Average GFR for 30-39 years old: 107 mL/min/1.73sq m Chronic Kidney Disease: <60 mL/min/1.73sq m Kidney failure: <15 mL/min/1.73sq m eGFR calculated using average adult body mass. Additional eGFR calculator available at: http://www.[employer]/multiple_crcl_2012.htmPerformed By: #### ARACELIG #### [address] [place] [address] #### PROG #### [facility] [address] [place] [address] Albumin [Mass/Vol]3.2 g/dLLow3.5-5.2MMetroHealth Cleveland Heights Medical CenterComment on above:Performed By: #### LOVELY #### [address] [place] [address] #### PROG #### [facility] [address] [place] [address] Albumin/Globulin [Mass ratio]1.1 {ratio}Normal1.0-2.5[facility] HospitalComment on above:Performed By: #### LOVELY #### [address] [place] [address] #### PROG #### [address] [place] [address] Alkaline Axfi226 U/GVmkx66-583HrqvyBrown Memorial HospitalComment on above:Performed By: #### LOVELY #### [address] [place] [address] #### PROG #### [facility] [address] [place] [address] ALT [Catalytic activity/Vol]41 U/LHigh5-33[facility] Comment on above:Performed By: #### LOVELY #### [address] [place] [address] #### PROG #### [address] [place] [address] Anion gap [Moles/Vol]12 mmol/LNormal9-17[facility] Comment on above:Performed By: #### ARACELIG #### [address] [place] [address] #### PROG #### [address] [address] AST [Catalytic activity/Vol]29 U/LNormal<32[facility] Comment on above:Performed By: #### LOVELY #### [address] [place] [address] #### PROG #### [address] [address] Bilirubin Ql (U)0.40 mg/dLNormal0.3-1.2MMetroHealth Cleveland Heights Medical CenterComment on above:Performed By: #### LOVELY #### [address] [place] [address] #### PROG #### [address] [address] BUN/CRE Hnxft3Daq9-38QppwuBrown Memorial HospitalComment on above: Performed By: #### ARACELIG #### [address] [place] [address] #### PROG #### [address] [address] Calcium [Mass/Vol]9.2 mg/dLNormal8.6-10.4[facility] Comment on above:Performed By: #### ARACELIG #### [address] [place] [address] #### PROG #### [facility] [address] [place] [address] Chloride [Moles/Vol]104 mmol/HNjcrpd21-233XfctxBrown Memorial Hospital Comment on above:Performed By: #### BHCG #### [address] [place] [address] #### PROG #### [facility] [address] [place] [address] CO2 [Moles/Vol]21 mmol/DZxcziv35-72UkgiiBrown Memorial HospitalComment on above:Performed By: #### BHCG #### [address] [place] [address] #### PROG #### [address] [address] Creatinine [Mass/Vol]0.62 mg/dLNormal0.50-0.90[facility] Comment on above:Performed By: #### BHCG #### [address] [place] [address] #### PROG #### [address] [address] GFR, Amer>60Normal>60MerHolzer Medical Center – Jackson HospitalComment on above: Performed By: #### BHCG #### [address] [place] [address] #### PROG #### [facility] [address] [place] [address] GFR,non Amer>60Normal>60[facility] HospitalComment on above:Performed By: #### BHCG #### [address] [place] [address] #### PROG #### [address] [place] [address] Glucose [Mass/Vol]83 mg/rLYobiep21-81Hnkta Tiffin HospitalComment on above:Performed By: #### BHCG #### [address] [place] [address] #### PROG #### [address] [address] Potassium [Moles/Vol]4.3 mmol/LNormal3.7-5.3MMetroHealth [facility] Comment on above:Performed By: #### ARACELIG #### [address] [place] [address] #### PROG #### [address] [address] Protein [Mass/Vol]6.0 g/dLLow6.4-8.3MHolzer Health System HospitalComment on above:Performed By: #### ARACELIG #### [address] [place] [address] #### PROG #### [address] [address] Sodium [Moles/Vol]137 mmol/ARgjmjr080-059WwlavBrown Memorial Hospital Comment on above:Performed By: #### ROLFCG #### [address] [place] [address] #### PROG #### [address] [address] Staging:NormalChillicothe Hospital HospitalComment on above:Result Comment: Stage 1: Some kidney damage normal GFR Stage 2: Mild kidney damage GFR 60-89 Stage 3: Moderate kidney damage GFR 30-59 Stage 4: Severe kidney damage GFR 15-29 Stage 5: Severe kidney damage GFR <15 ESRD - chronic treatment by dialysis or transplantPerformed By: #### BHCG #### [address] [place] [address] #### PROG #### [address] [address] Urea nitrogen [Mass/Vol]5 mg/dLLow6-20[facility] HospitalComment on above:Performed By: #### BHCG #### [address] [place] [address] #### PROG #### [address] [address] Creatinine,Random Uron 43-36-5290Jtpenrhykr [Mass/Vol]106.1 mg/dL Seymrq91.0-217.0[facility] Memorial HospitalComment on above:Performed By: #### BHJaseG #### [address] [place] [address] #### PROG #### [address] [address] Cult,Urineon 75-51-0697Gmbn,UrineSpecimen Description .CLEAN CATCH URINE Special Requests NOT REPORTED Culture NO GROWTH Report Status FINAL 07/21/2018NoOhioHealth Hardin Memorial HospitalComment on above: Performed By: #### BHCG #### [address] [place] [address] #### PROG #### [address] [address] Protein,Tot,[place] Uron 81-75-1595Lkn Prot. Conc.14 mg/dLNoOhioHealth Hardin Memorial HospitalComment on above:Result Comment: No normal range established. Performed By: #### BHCG #### [address] [place] [address] #### PROG #### [address] [address] Uric Acidon 54-35-7263Rinlt [Mass/Vol]5.4 mg/dLNormal2.4-5.7[facility] Memorial HospitalComment on above:Performed By: #### BHJaseG #### [address] [place] [id number] #### PROG #### [address] [address] CBC with Diffon 41-46-1941Oyv. Basophil0.06 k/uLNormal0.00-0.20 [facility] HospitalComment on above:Performed By: #### ARACELIG #### [address] [place] [id number] Abs.Imm.Granulocyte0.15 k/uLNormal0.00-0.30[facility] Comment on above:Performed By: #### ARACELIG #### [address] [place] [address] Abs.Neutrophil (Seg)9.77 k/uLHigh1.50-8.10[facility] Comment on above:Performed By: #### ARACELIG #### [address] [place] [id number] Basophils/100 WBC (Bld)0 %Normal0-2MercVeterans Administration Medical CenterComment on above:Performed By: #### ARACELIG #### [address] [place] [address] Eosinophils (Bld) [#/Vol]0.34 10*3/uLNormal0.00-0.44[facility] HospitalComment on above:Performed By: #### ARACELIG #### [address] [place] [address] Eosinophils/100 WBC (Bld)2 %Normal1-4[facility] Memorial HospitalComment on above:Performed By: #### BHCG #### [address] [place], [facility]83 Erythrocyte distribution width (RBC) [Ratio]15.9 %High11.8-14.4 [facility] HospitalComment on above:Performed By: #### ARACELIG #### [address] [place] [facility]83 Hematocrit (Bld) [Volume fraction]34.5 %Low36.3-47.1MHolzer Health System HospitalComment on above:Performed By: #### ARACEILG #### [address] [place] [facility]83 Hemoglobin (Bld) [Mass/Vol]10.5 g/dLLow11.9-15.1MHolzer Health System HospitalComment on above:Performed By: #### LOVELY #### [address] [place], [facility]83 Immature granulocytes (Bld) [#/Vol]1 %Qudb6HgvsyBrown Memorial Hospital Comment on above:Performed By: #### ARACELIG #### [address] [place], [facility]83 Lymphocytes (Bld) [#/Vol]3.00 10*3/uLNormal1.10-3.70[facility] HospitalComment on above:Performed By: #### ARACELIG #### [address] [place] [facility]83 Lymphocytes/100 WBC (Bld)21 %Kes39-59SmnhmBrown Memorial HospitalComment on above:Performed By: #### ARACELIG #### [address] [place] [id number] MCH (RBC) [Entitic mass]25.5 mvIekjil59.2-33.5[facility] Comment on above:Performed By: #### ARACELIG #### [address] [place], [facility]83 MCHC (RBC) [Mass/Vol]30.4 g/jMYxaion61.4-34.8[facility] Comment on above:Performed By: #### ARACELIG #### [address] [place] [facility]83 MCV (RBC) [Entitic vol]83.9 vGNyhovy06.6-102.9[facility] Comment on above:Performed By: #### LOVELY #### [address] [place] [facility]83 Monocytes (Bld) [#/Vol]1.19 10*3/uLNormal0.10-1.20[facility] HospitalComment on above:Performed By: #### LOVELY #### [address] [place], [facility]83 Monocytes/100 WBC (Bld)8 %Normal3-12[facility] HospitalComment on above:Performed By: #### LOVELY #### [address] [place] [address] Neutrophil (Seg)68 %Fnpy70-56RezwbBrown Memorial HospitalComment on above: Performed By: #### LOVELY #### [address] [place] [facility]83 NRBC Automated0.0 per 100 WBCNormal0.0[facility] HospitalComment on above:Performed By: #### LOVELY #### [address] [place] [address] Platelet mean volume (Bld) [Entitic vol]9.9 fLNormal8.1-13.5[facility] Memorial HospitalComment on above:Performed By: #### LOVELY #### [address] [place] [address] Platelets (Bld) [#/Vol]276 10*3/hXQbjwre441-196Srfpu [facility]iffin HospitalComment on above:Performed By: #### BHCG #### [address] [place] [address] RBC (Bld) [#/Vol]4.11 10*6/uLNormal3.95-5.11[facility] Comment on above:Performed By: #### BHCG #### [address] [place] [address] WBC (Bld) [#/Vol]14.5 10*3/uLHigh3.5-11.3MMetroHealth [facility] Comment on above:Performed By: #### ARACELIG #### [address] [place] [address] Auto Diff PerformedNOT REPORTEDNormalBrown Memorial HospitalComment on above:Performed By: #### ARACELIG #### [address] [place] [address] Platelets (Bld) [#/Vol]NOT REPORTEDNormalBrown Memorial Hospital Comment on above:Performed By: #### ARACELIG #### [address] [place] [address] RBC morphology finding Nom (Bld)NOT REPORTEDNormalChillicothe Hospital HospitalComment on above:Performed By: #### BHCG #### [address] [place] [address] WBC MorphologyNOT REPORTEDNormMartins Ferry HospitalComment on above:Performed By: #### BHCG #### [address] [place] [address] Comp Metabolic Profon 36-00-6251VQM [Catalytic activity/Vol]33 U/L High<32[facility] HospitalComment on above:Performed By: #### BHJaseG #### [address] [place] [address] (cont.)NormalBrown Memorial HospitalComment on above:Result Comment: Average GFR for 30-39 years old: 107 mL/min/1.73sq m Chronic Kidney Disease: <60 mL/min/1.73sq m Kidney failure: <15 mL/min/1.73sq m eGFR calculated using average adult body mass. Additional eGFR calculator available at: http://www.[employer]/multiple_crcl_2012.htmPerformed By: #### ARACELIG #### [address] [place] [address] Albumin [Mass/Vol]3.3 g/dLLow3.5-5.2MMetroHealth Cleveland Heights Medical CenterComment on above:Performed By: #### LOVELY #### [address] [place], [facility]83 Albumin/Globulin [Mass ratio]1.1 {ratio}Normal1.0-2.5[facility] HospitalComment on above:Performed By: #### ARACELIG #### [address] [place] [address] Alkaline Whys389 U/QFzvm31-389KizxkBrown Memorial HospitalComment on above:Performed By: #### LOVELY #### [address] [place] [address] ALT [Catalytic activity/Vol]46 U/LHigh5-33[facility] Comment on above:Performed By: #### ARACELIG #### [address] [place] [address] Anion gap [Moles/Vol]13 mmol/LNormal9-17[facility] Comment on above:Performed By: #### ARACELIG #### [address] [place] [address] Bilirubin Ql (U)0.49 mg/dLNormal0.3-1.2MMetroHealth Cleveland Heights Medical CenterComment on above:Performed By: #### BHCG #### [address] [place] [address] BUN/CRE Rwwqb22Flolfe0-17Ckega Tiffin HospitalComment on above: Performed By: #### BHCG #### [address] [place], [facility]83 Calcium [Mass/Vol]9.5 mg/dLNormal8.6-10.4[facility] Comment on above:Performed By: #### BHCG #### [address] [place], [facility]83 Chloride [Moles/Vol]103 mmol/VObglpj17-684WdxbiBrown Memorial Hospital Comment on above:Performed By: #### BHCG #### [address] [place], [facility]83 CO2 [Moles/Vol]20 mmol/ZHjqoku44-22NgnezBrown Memorial HospitalComment on above:Performed By: #### BHCG #### [address] [place] [address] Creatinine [Mass/Vol]0.57 mg/dLNormal0.50-0.90[facility] Comment on above:Performed By: #### BHCG #### [address] [place] [address] GFR, Amer>60Normal>60[facility] HospitalComment on above: Performed By: #### BHCG #### [address] [place] [address] GFR,non Amer>60Normal>60[facility] HospitalComment on above:Performed By: #### BHCG #### [address] [place] [address] Glucose [Mass/Vol]94 mg/nGYvfxzw02-47DokbaMetroHealth Cleveland Heights Medical CenterComment on above:Performed By: #### BHCG #### [address] [place] [address] Potassium [Moles/Vol]4.0 mmol/LNormal3.7-5.3MMetroHealth [facility] Comment on above:Performed By: #### BHCG #### [address] [place] [address] Protein [Mass/Vol]6.2 g/dLLow6.4-8.3MMetroHealth Cleveland Heights Medical CenterComment on above:Performed By: #### BHCG #### [address] [place] [address] Sodium [Moles/Vol]136 mmol/RStcdqp289-285JpsfuBrown Memorial Hospital Comment on above:Performed By: #### BHCG #### [address] [place] [address] Staging:NormalBrown Memorial HospitalComment on above:Result Comment: Stage 1: Some kidney damage normal GFR Stage 2: Mild kidney damage GFR 60-89 Stage 3: Moderate kidney damage GFR 30-59 Stage 4: Severe kidney damage GFR 15-29 Stage 5: Severe kidney damage GFR <15 ESRD - chronic treatment by dialysis or transplantPerformed By: #### BHCG #### [address] [place] [address] Urea nitrogen [Mass/Vol]7 mg/dLNormal6-20[facility] Comment on above:Performed By: #### BHCG #### [address] [place], [place] [id number] Urinalysis, Routineon 04-93-2204Vmytkmbvuqb Acid,Ur2+AbnormalNEG [facility] HospitalComment on above:Performed By: #### BHCG #### [address] [place] [address] Bilirubin, SemiQt,UrSMALLAbnormalNEGMercy Lovely HospitalComment on above:Performed By: #### BHJaseG #### [address] [place] [address] Color (U)YELLOWNormalYELMercy Lovely HospitalComment on above: Performed By: #### ROLFCG #### [address] [place] [address] Glucose Ql (U)NegativeNormalNEGMerHolzer Medical Center – Jackson HospitalComment on above:Performed By: #### BHCG #### [address] [place] [address] Hemoglobin, UrNegativeNormalNEGMerHolzer Medical Center – Jackson HospitalComment on above:Performed By: #### ARACELIG #### [address] [place] [address] Leukocyte esterase Test strip Ql (U)TRACEAbnormalNEGMerHolzer Medical Center – Jackson HospitalComment on above:Performed By: #### BHJaseG #### [address] [place] [address] Nitrite,UrNegativeNormalNEGMerHolzer Medical Center – Jackson HospitalComment on above: Performed By: #### BHCG #### [address] [place] [address] pH (U)5.5 [pH]Normal5.0-9.0MerHolzer Medical Center – Jackson HospitalComment on above: Performed By: #### BHCG #### [address] [place] [address] Protein Ql (U)TRACEAbnormalNEGMerHolzer Medical Center – Jackson HospitalComment on above:Performed By: #### ROLFCG #### [address] [place] [address] Specific gravity (U) [Rel density]1.237Wiss8.010-1.020[facility] HospitalComment on above:Performed By: #### ARACELIG #### [address] [place] [address] TurbidityCLEARNormalCLEARChillicothe Hospital HospitalComment on above: Performed By: #### ARACELIG #### [address] [place] [phone] Urobilinogen,UrNormalNormalNORMChillicothe Hospital HospitalComment on above:Performed By: #### ARACELIG #### [address] [place] [phone] CommentNOT REPORTEDNormalBrown Memorial HospitalComment on above: Performed By: #### ARACELIG #### [address] [place] [phone] Urinalysis,Microon 07-21-2018-----NormalBrown Memorial Hospital Comment on above:Performed By: #### ARACELIG #### [address] [place] [phone] Amorphous sediment LM Ql (Urine sed)1+AbnormalNONEMeSouthwest Mississippi Regional Medical Center HospitalComment on above:Performed By: #### ARACELIG #### [address] [place] [phone] Bacteria LM.HPF (Urine sed) [#/Area]1+AbnormalNONGlenbeigh HospitalComment on above:Performed By: #### ARACELIG #### [address] [place] [phone] Epithelial cells LM.HPF (Urine sed) [#/Area]2 TO 1Dbopgm7-19IsnfbBrown Memorial HospitalComment on above:Performed By: #### LOVELY #### [address] [place] [address] Mucus StrandsTRACEAbnormalNONEMey Lov[place] HospitalComment on above:Performed By: #### ARACELIG #### [address] [place] [phone] RBC (U) [#/Vol]0 TO 1Jtndlf5-1Dcpcq [place] HospitalComment on above:Performed By: #### ARACELIG #### [address] [place] [address] WBC (U) [#/Vol]2 TO 3Xyapcl4-2Vrunl [place] HospitalComment on above:Performed By: #### ARACELIG #### [address] [place] [address] Casts LM.LPF (Urine sed) [#/Area]NOT REPORTEDNormalMercy Lovely HospitalComment on above:Performed By: #### ARACELIG #### [address] [place] [address] Crystals LM Nom (Urine sed)NOT REPORTEDNormalNONEMercy Lovely HospitalComment on above:Performed By: #### ARACELIG #### [address] [place] [phone] Epithelial, RenalNOT BARDVSQKQkbxfj2Wcnpg [place] HospitalComment on above:Performed By: #### ARACELIG #### [address] [place] [address] Other ObservationsNOT REPORTEDNormalNREQMercy Lovely Hospital Comment on above:Performed By: #### ARACELIG #### [address] [place] [address] TrichomonasNOT REPORTEDNormalNONEMercy Lovely HospitalComment on above:Performed By: #### ARACELIG #### [address] [place] [address] Yeast LM Ql (Urine sed)NOT REPORTEDNoDayton Children's Hospital Comment on above:Performed By: #### ARACELIG #### [address] [place] [address] Cult,Urineon [id number],UrineSpecimen Description .CLEAN CATCH URINE Special Requests NOT REPORTED Culture NO SIGNIFICANT GROWTH Report Status FINAL 07/20/2018NormalBrown Memorial HospitalComment on above: Performed By: #### ARACELIG #### [address] [place], [facility]83 APTTon 70-23-5640wWLV Coag (Bld) [Time]27.0 yXcibaz19.2-34.4[facility] HospitalComment on above:Performed By: #### ARACELIG #### [address] [place], [facility]83 CBC with Diffon [id number]. Basophil0.05 k/uLNormal0.00-0.20 [facility] HospitalComment on above:Performed By: #### ARACELIG #### [address] [place] [address] Abs.Imm.Granulocyte0.07 k/uLNormal0.00-0.30[facility] Comment on above:Performed By: #### ARACELIG #### [address] [place], [facility]83 Abs.Neutrophil (Seg)7.01 k/uLNormal1.50-8.10[facility] Comment on above:Performed By: #### ARACELIG #### [address] [place], [facility]83 Basophils/100 WBC (Bld)0 %Normal0-2MercVeterans Administration Medical CenterComment on above:Performed By: #### BHCG #### [address] [place], [place] [address] Eosinophils (Bld) [#/Vol]0.28 10*3/uLNormal0.00-0.44[facility] HospitalComment on above:Performed By: #### ARACELIG #### [address] [place] [phone] Eosinophils/100 WBC (Bld)2 %Normal1-4[facility] HospitalComment on above:Performed By: #### ARACELIG #### [address] [place] [phone] Erythrocyte distribution width (RBC) [Ratio]15.8 %High11.8-14.4 [facility] HospitalComment on above:Performed By: #### ARACELIG #### [address] [place] [address] Hematocrit (Bld) [Volume fraction]34.1 %Low36.3-47.1MHolzer Health System HospitalComment on above:Performed By: #### ARACELIG #### [address] [place], [facility]83 Hemoglobin (Bld) [Mass/Vol]10.4 g/dLLow11.9-15.1MMetroHealth Cleveland Heights Medical CenterComment on above:Performed By: #### ARACELIG #### [address] [place] [phone] Immature granulocytes (Bld) [#/Vol]1 %Lmqj0KyjniChillicothe Hospital Hospital Comment on above:Performed By: #### ARACELIG #### [address] [place] [phone] Lymphocytes (Bld) [#/Vol]3.12 10*3/uLNormal1.10-3.70[facility] HospitalComment on above:Performed By: #### ARACELIG #### [address] [place] [address] Lymphocytes/100 WBC (Bld)27 %Qeqcni97-24OlxkzBrown Memorial Hospital Comment on above:Performed By: #### ARACELIG #### [address] [place] [address] MCH (RBC) [Entitic mass]25.6 sqZgqabq60.2-33.5[facility] Comment on above:Performed By: #### ARACELIG #### [address] [place] [address] MCHC (RBC) [Mass/Vol]30.5 g/rIDvqowq79.4-34.8[facility] Comment on above:Performed By: #### ARACELIG #### [address] [place] [phone] MCV (RBC) [Entitic vol]84.0 aAEjffct89.6-102.9[facility] Comment on above:Performed By: #### ARACELIG #### [address] [place] [address] Monocytes (Bld) [#/Vol]0.93 10*3/uLNormal0.10-1.20[facility] HospitalComment on above:Performed By: #### ARACELIG #### [address] [place] [address] Monocytes/100 WBC (Bld)8 %Normal3-12[facility] HospitalComment on above:Performed By: #### ARACELIG #### [address] [place] [address] Neutrophil (Seg)62 %Ltuxvf13-52WtdidBrown Memorial HospitalComment on above:Performed By: #### ARACELIG #### [address] [place] [address] NRBC Automated0.0 per 100 WBCNormal0.0[facility] HospitalComment on above:Performed By: #### ARACELIG #### [address] [place] [address] Platelet mean volume (Bld) [Entitic vol]9.8 fLNormal8.1-13.5[facility] HospitalComment on above:Performed By: #### ARACELIG #### [address] [place] [facility]83 Platelets (Bld) [#/Vol]277 10*3/sYDnpxib466-546JrwtbBrown Memorial HospitalComment on above:Performed By: #### ARACELIG #### [address] [place] [facility]83 RBC (Bld) [#/Vol]4.06 10*6/uLNormal3.95-5.11[facility] Comment on above:Performed By: #### ARACELIG #### [address] [place] [facility]83 WBC (Bld) [#/Vol]11.5 10*3/uLHigh3.5-11.3MMetroHealth [facility] Comment on above:Performed By: #### ARACELIG #### [address] [place] [address] Auto Diff PerformedNOT REPORTEDNormMartins Ferry HospitalComment on above:Performed By: #### ARACELIG #### [address] [place] [address] Platelets (Bld) [#/Vol]NOT REPORTEDNoOhioHealth Hardin Memorial Hospital Comment on above:Performed By: #### ARACELIG #### [address] [place] [address] RBC morphology finding Nom (Bld)NOT REPORTEDNormUniversity Hospitals [facility]ly[facility] HospitalComment on above:Performed By: #### BHJaseG #### [address] [place] [address] WBC MorphologyNOT REPORTEDNoOhioHealth Hardin Memorial HospitalComment on above:Performed By: #### BHJaseG #### [address] [place] [address] Comp Metabolic Profon 07-19-2018(cont.)[facility] Comment on above:Result Comment: Average GFR for 30-39 years old: 107 mL/min/1.73sq m Chronic Kidney Disease: <60 mL/min/1.73sq m Kidney failure: <15 mL/min/1.73sq m eGFR calculated using average adult body mass. Additional eGFR calculator available at: http://www.[employer]/multiple_crcl_2012.htmPerformed By: #### ARACELIG #### [address] [place] [address] Albumin [Mass/Vol]3.3 g/dLLow3.5-5.2MMetroHealth Cleveland Heights Medical CenterComment on above:Performed By: #### ARACELIG #### [address] [place] [address] Albumin/Globulin [Mass ratio]1.2 {ratio}Normal1.0-2.5[facility] HospitalComment on above:Performed By: #### BHJaseG #### [address] [place] [address] Alkaline Yxon871 U/TApfk06-530CjdkoBrown Memorial HospitalComment on above:Performed By: #### BHJaseG #### [address] [place] [address] ALT [Catalytic activity/Vol]40 U/LHigh5-33[facility] Comment on above:Performed By: #### ARACELIG #### [address] [place] [address] Anion gap [Moles/Vol]11 mmol/LNormal9-17[facility] Comment on above:Performed By: #### BHCG #### [address] [place] [address] AST [Catalytic activity/Vol]32 U/LHigh<32[facility] Comment on above:Performed By: #### BHCG #### [address] [place] [address] Bilirubin Ql (U)0.48 mg/dLNormal0.3-1.2MMetroHealth Cleveland Heights Medical CenterComment on above:Performed By: #### BHCG #### [address] [place] [address] BUN/CRE Rsrow44Drvmfl6-58Ycpkw [facility]iffin HospitalComment on above: Performed By: #### BHCG #### [address] [place] [address] Calcium [Mass/Vol]9.4 mg/dLNormal8.6-10.4[facility] Comment on above:Performed By: #### BHCG #### [address] [place] [address] Chloride [Moles/Vol]103 mmol/YOepgxc54-456RoallBrown Memorial Hospital Comment on above:Performed By: #### BHCG #### [address] [place] [address] CO2 [Moles/Vol]22 mmol/CJkbckx46-30QkxsvBrown Memorial HospitalComment on above:Performed By: #### BHCG #### [address] [place] [address] Creatinine [Mass/Vol]0.66 mg/dLNormal0.50-0.90[facility] Comment on above:Performed By: #### BHCG #### [address] [place] [address] GFR, Amer>60Normal>60[facility] HospitalComment on above: Performed By: #### BHCG #### [address] [place] [address] GFR,non Amer>60Normal>60[facility] HospitalComment on above:Performed By: #### BHCG #### [address] [place] [address] Glucose [Mass/Vol]86 mg/xOVygcth46-63ThebcMetroHealth Cleveland Heights Medical CenterComment on above:Performed By: #### BHCG #### [address] [place] [address] Potassium [Moles/Vol]4.3 mmol/LNormal3.7-5.3MMetroHealth [facility] Comment on above:Performed By: #### BHCG #### [address] [place] [facility]83 Protein [Mass/Vol]6.0 g/dLLow6.4-8.3MMetroHealth Cleveland Heights Medical CenterComment on above:Performed By: #### BHCG #### [address] [place] [facility]83 Sodium [Moles/Vol]136 mmol/QTedijl201-573LsbjsBrown Memorial Hospital Comment on above:Performed By: #### BHCG #### [address] [place] [address] Staging:NormalBrown Memorial HospitalComment on above:Result Comment: Stage 1: Some kidney damage normal GFR Stage 2: Mild kidney damage GFR 60-89 Stage 3: Moderate kidney damage GFR 30-59 Stage 4: Severe kidney damage GFR 15-29 Stage 5: Severe kidney damage GFR <15 ESRD - chronic treatment by dialysis or transplantPerformed By: #### BHJaseG #### [address] [place] [address] Urea nitrogen [Mass/Vol]8 mg/dLNormal6-20[facility] Comment on above:Performed By: #### ARACELIG #### [address] [place] [address] Fibrinogenon 50-52-1169Lyschweyyf853 mg/cZVrse308-101UskboBrown Memorial HospitalComment on above:Performed By: #### ARACELIG #### [address] [place] [address] PTon 24-60-4107JBJ Coag (PPP) [Relative time]1.0 {INR}Normal0.9-1.2 [facility] HospitalComment on above:Performed By: #### ARACELIG #### [address] [place], [facility]83 PT Coag (PPP) [Time]10.0 sNormal9.7-12.2MMetroHealth [facility] Center Comment on above:Performed By: #### ARACELIG #### [address] [place], [facility]83 Protein,Tot,[place] Uron 04-29-1018Msttgngqwx [Mass/Vol]218.9 mg/dL High28.0-217.0[facility] HospitalComment on above:Performed By: #### BHJaseG #### [address] [place], [facility]83 TP/Cre Ratio0.71Jfqoxo1.00-0.20[facility] HospitalComment on above:Performed By: #### ARACELIG #### [address] [place], [facility]83 Tot Prot. Conc.23 mg/dLNormMartins Ferry HospitalComment on above: Result Comment: No normal range established.Performed By: #### BHCG #### [address] [place] [address] us BIOPHYSICAL PROFILE WO NON STRESS TESTINGon 66-70-8079OL BIOPHYSICAL PROFILE WO NON STRESS TESTINGEXAMINATION: BIOPHYSICAL PROFILE WITHOUT NON-STRESS TEST 07/19/2018 TECHNIQUE: [...] Cesario Ku MD 07/19/18 Edited Result - FINALNormalMerMidState [facility] Center OB TRANSVAGINALon 07-19-2018 OB TRANSVAGINALEXAMINATION: BIOPHYSICAL PROFILE WITHOUT NON-STRESS TEST 07/19/2018 TECHNIQUE: [...] Signed by: Cesario Ku MD 07/19/18 Final resultNormalChillicothe Hospital HospitalUric Acidon 12-54-4351Uzsgx [Mass/Vol]5.8 mg/dLHigh2.4-5.7[facility] HospitalComment on above:Performed By: #### BHCG #### [address] [place] [address] Urinalysis, Routineon 80-60-7359Byeiskyfbtg Acid,Ur1+AbnormalNEG [facility] HospitalComment on above:Performed By: #### BHCG #### [address] [place] [address] Bilirubin, SemiQt,UrSMALLAbnormalNEGMerHolzer Medical Center – Jackson HospitalComment on above:Performed By: #### BHCG #### [address] [place] [address] Color (U)YELLOWNormalYELMerHolzer Medical Center – Jackson HospitalComment on above: Performed By: #### BHCG #### [address] [place] [address] Glucose Ql (U)NegativeNormalNEGChillicothe Hospital HospitalComment on above:Performed By: #### BHCG #### [address] [place] [address] Hemoglobin, UrNegativeNormalNEGChillicothe Hospital HospitalComment on above:Performed By: #### BHCG #### [address] [place] [address] Leukocyte esterase Test strip Ql (U)LARGEAbnormalNEGMerHolzer Medical Center – Jackson HospitalComment on above:Performed By: #### BHCG #### [address] [place] [address] Nitrite,UrNegativeNormalNEGChillicothe Hospital HospitalComment on above: Performed By: #### BHCG #### [address] [place] [address] pH (U)6.0 [pH]Normal5.0-9.0[facility] HospitalComment on above: Performed By: #### ARACELIG #### [address] [place] [address] Protein Ql (U)TRACEAbnormalNEGChillicothe Hospital HospitalComment on above:Performed By: #### ARACELIG #### [address] [place] [phone] Specific gravity (U) [Rel density]1.869Nmmi4.010-1.020[facility] HospitalComment on above:Performed By: #### ARACELIG #### [address] [place] [phone] ([address] TurbidityCLOUDYAbnormalCLEARBrown Memorial HospitalComment on above: Performed By: #### ARACELIG #### [address] [place], [facility]83 Urobilinogen,UrNormalNormalNORMChillicothe Hospital HospitalComment on above:Performed By: #### ARACELIG #### [address] [place], [place] [phone] ([address] CommentNOT REPORTEDNormalBrown Memorial HospitalComment on above: Performed By: #### ARACELIG #### [address] [place], [place] [phone] ([phone] Urinalysis,Microon 07-19-2018-----NormalBrown Memorial Hospital Comment on above:Performed By: #### ARACELIG #### [address] [place] [address] Bacteria LM.HPF (Urine sed) [#/Area]3+AbnormalNONEMeConnecticut Children's Medical CenterComment on above:Performed By: #### LOVELY #### [address] [place] [phone] Epithelial cells LM.HPF (Urine sed) [#/Area]10 TO 75Oyykig7-58Rsbls Lovely HospitalComment on above:Performed By: #### ARACELIG #### [address] [place] [phone] RBC (U) [#/Vol]NoneNormal0-2Mercy Lovely HospitalComment on above: Performed By: #### ARACELIG #### [address] [place] [phone] WBC (U) [#/Vol]20 TO 37Zvabsz7-2Xvaft Lovely HospitalComment on above:Performed By: #### ARACELIG #### [address] [place] [phone] Amorphous sediment LM Ql (Urine sed)NOT REPORTEDNormalNONEMercy Lovely HospitalComment on above:Performed By: #### ARACELIG #### [address] [place] [phone] Casts LM.LPF (Urine sed) [#/Area]NOT REPORTEDNormalMercy Lovely HospitalComment on above:Performed By: #### ARACELIG #### [address] [place] [phone] Crystals LM Nom (Urine sed)NOT REPORTEDNormalNONEMercy Lovely HospitalComment on above:Performed By: #### ARACELIG #### [address] [place] [phone] Epithelial, RenalNOT FLYQRBWAVwoifd8Emvhp Lovely HospitalComment on above:Performed By: #### ARACELIG #### [address] [place] [address] Mucus StrandsNOT REPORTEDNormalNONEMercy Lovely HospitalComment on above:Performed By: #### BHCG #### [address] [place] [address] Other ObservationsNOT REPORTEDMercy Hospital St. John'SalNREQBrown Memorial Hospital Comment on above:Performed By: #### ARACELIG #### [address] [place] [address] TrichomonasNOT REPORTEDNormalNONMemorial Health System HospitalComment on above:Performed By: #### ARACELIG #### [address] [place] [address] Yeast LM Ql (Urine sed)NOT REPORTEDNoDayton Children's Hospital Comment on above:Performed By: #### ARACELIG #### [address] [place] [address] Glucose Zeke. 3 hron Hr156 mg/qPQlib83-489Ezaiv [facility]iffin HospitalComment on above:Performed By: #### ARACELIG #### [address] [place] [address] [phone] Hr168 mg/fLJpdw10-569Pixfg [facility]in HospitalComment on above: Performed By: #### ARACELIG #### [address] [place] [address] [phone] Hr163 mg/sVBtpiva27-079Xwdkh [facility]in HospitalComment on above: Performed By: #### ARACELIG #### [address] [place] [address] Fasting87 mg/zVSijhbq41-59Jlkqx [facility]in HospitalComment on above: Performed By: #### ROLFCG #### [address] [place] [address] Glucose [Mass/Vol]100 gNormalChillicothe Hospital HospitalComment on above: Performed By: #### ARACELIG #### [address] [place], [place] [phone] CBC with Diffon [id number]. Basophil0.06 k/uLNormal0.00-0.20 [facility] HospitalComment on above:Performed By: #### PROG #### [address] [address] Abs.Imm.Granulocyte0.09 k/uLNormal0.00-0.30[facility] Comment on above:Performed By: #### PROG #### [address] [address] Abs.Neutrophil (Seg)10.61 k/uLHigh1.50-8.10[facility] Comment on above:Performed By: #### PROG #### [address] [address] Basophils/100 WBC (Bld)0 %Normal0-2MHolzer Health System HospitalComment on above:Performed By: #### PROG #### [address] [address] Eosinophils (Bld) [#/Vol]0.16 10*3/uLNormal0.00-0.44[facility] HospitalComment on above:Performed By: #### PROG #### [address] [address] Eosinophils/100 WBC (Bld)1 %Normal1-4[facility] Memorial HospitalComment on above:Performed By: #### PROG #### [address] [address] Erythrocyte distribution width (RBC) [Ratio]14.8 %High11.8-14.4 [facility] HospitalComment on above:Performed By: #### PROG #### [address] [address] Hematocrit (Bld) [Volume fraction]36.1 %Low36.3-47.1MMetroHealth Cleveland Heights Medical CenterComment on above:Performed By: #### PROG #### [facility] [employer] [address] [place] [address] 20418 Hemoglobin (Bld) [Mass/Vol]11.6 g/dLLow11.9-15.1MMetroHealth Cleveland Heights Medical CenterComment on above:Performed By: #### PROG #### [facility] [employer] [address] [place] [address] 95219 Immature granulocytes (Bld) [#/Vol]1 %Btdu0XjoygBrown Memorial Hospital Comment on above:Performed By: #### PROG #### [facility] [employer] [address] [place] [address] 65952 Lymphocytes (Bld) [#/Vol]3.44 10*3/uLNormal1.10-3.70Brown Memorial HospitalComment on above:Performed By: #### PROG #### [facility] [employer] [address] [place] [address] 76416 Lymphocytes/100 WBC (Bld)23 %Exk75-06RyylsBrown Memorial HospitalComment on above:Performed By: #### PROG #### [facility] [employer] [address] [place] [address] 24661 MCH (RBC) [Entitic mass]27.0 lfNpukqx07.2-33.5[facility] Comment on above:Performed By: #### PROG #### [facility] [employer] [address] [place] [address] 72660 MCHC (RBC) [Mass/Vol]32.1 g/gONlhprm20.4-34.8[facility] Comment on above:Performed By: #### PROG #### [facility] [employer] [address] [place] [address] 01668 MCV (RBC) [Entitic vol]84.1 nDNyqesn49.6-102.9[facility] Comment on above:Performed By: #### PROG #### [facility] [address] [place] [address] 44108 Monocytes (Bld) [#/Vol]0.85 10*3/uLNormal0.10-1.20[facility] HospitalComment on above:Performed By: #### PROG #### [facility] [address] [place] [address] 35300 Monocytes/100 WBC (Bld)6 %Normal3-12[facility] HospitalComment on above:Performed By: #### PROG #### [facility] [employer] [address] [place] [address] 52457 Neutrophil (Seg)69 %Iibc33-24Spese [facility]iffin HospitalComment on above: Performed By: #### PROG #### [facility] [employer] [address] [place] [address] 53977 NRBC Automated0.0 per 100 WBCNormal0.0Brown Memorial HospitalComment on above:Performed By: #### PROG #### [facility] [employer] [address] [place] [address] 05898 Platelet mean volume (Bld) [Entitic vol]10.0 fLNormal8.1-13.5Brown Memorial HospitalComment on above:Performed By: #### PROG #### [facility] [employer] [address] [place] [address] 19383 Platelets (Bld) [#/Vol]333 10*3/kZWzlcys735-818Eatxg [facility] HospitalComment on above:Performed By: #### PROG #### [facility] [address] [place] [address] 38886 RBC (Bld) [#/Vol]4.29 10*6/uLNormal3.95-5.11[facility] Comment on above:Performed By: #### PROG #### [facility] [address] [place] [address] 49483 WBC (Bld) [#/Vol]15.2 10*3/uLHigh3.5-11.3MMetroHealth Cleveland Heights Medical Center Comment on above:Performed By: #### PROG #### [facility] [address] [place] [address] 90953 Auto Diff PerformedNOT REPORTEDNormMartins Ferry HospitalComment on above:Performed By: #### PROG #### [facility] [address] [place] [address] 27914 Platelets (Bld) [#/Vol]NOT REPORTEDNoOhioHealth Hardin Memorial Hospital Comment on above:Performed By: #### PROG #### [facility] [address] [place] [address] 01323 RBC morphology finding Nom (Bld)NOT REPORTEDNoOhioHealth Hardin Memorial HospitalComment on above:Performed By: #### PROG #### [facility] [address] [place] [address] 08572 WBC MorphologyNOT REPORTEDNoOhioHealth Hardin Memorial HospitalComment on above:Performed By: #### PROG #### [facility] [address] [place] [address] 90661 Comp Metabolic Profon 06-12-2018(cont.)[facility] Comment on above:Result Comment: Average GFR for 30-39 years old: 107 mL/min/1.73sq m Chronic Kidney Disease: <60 mL/min/1.73sq m Kidney failure: <15 mL/min/1.73sq m eGFR calculated using average adult body mass. Additional eGFR calculator available at: http://www.[employer].com/multiple_crcl_2012.htmPerformed By: #### PROG #### [facility] [address] [place] [address] 45777 Albumin [Mass/Vol]3.5 g/dLNormal3.5-5.2MHolzer Health System HospitalComment on above:Performed By: #### PROG #### [employer] [address] [place] [address] 26990 Albumin/Globulin [Mass ratio]1.1 {ratio}Normal1.0-2.5[facility] Memorial HospitalComment on above:Performed By: #### PROG #### [employer] [address] [place] [address] 54693 Alkaline Phos99 U/HKjmrbv33-146MguihBrown Memorial HospitalComment on above:Performed By: #### PROG #### [employer] [address] [place] [address] 15186 ALT [Catalytic activity/Vol]22 U/LNormal5-33[facility] Comment on above:Performed By: #### PROG #### [facility] [address] [place] [address] 61816 Anion gap [Moles/Vol]12 mmol/LNormal9-17[facility] Comment on above:Performed By: #### PROG #### [employer] [address] [place] [address] 97960 AST [Catalytic activity/Vol]18 U/LNormal<32[facility] Comment on above:Performed By: #### PROG #### [employer] [address] [place] [address] 98819 Bilirubin Ql (U)0.39 mg/dLNormal0.3-1.2MMetroHealth Cleveland Heights Medical CenterComment on above:Performed By: #### PROG #### [employer] [address] [place] [address] 49244 BUN/CRE Mpnpz71Wvxhaa4-98Vadwz [facility]iffin HospitalComment on above: Performed By: #### PROG #### [employer] [address] [place] [address] 01006 Calcium [Mass/Vol]10.1 mg/dLNormal8.6-10.4[facility] Comment on above:Performed By: #### PROG #### [facility] [address] [place] [address] 92768 Chloride [Moles/Vol]102 mmol/NOrqtbt27-949PlcpsBrown Memorial Hospital Comment on above:Performed By: #### PROG #### [facility] [address] [place] [address] 51004 CO2 [Moles/Vol]20 mmol/MIohris42-25MfpqsBrown Memorial HospitalComment on above:Performed By: #### PROG #### [facility] [address] [place] [address] 69073 Creatinine [Mass/Vol]0.56 mg/dLNormal0.50-0.90[facility] Comment on above:Performed By: #### PROG #### [facility] [address] [place] [address] 38648 GFR, Amer>60Normal>60[facility] HospitalComment on above: Performed By: #### PROG #### [facility] [employer] [address] [place] [address] 85322 GFR,non Amer>60Normal>60[facility] HospitalComment on above:Performed By: #### PROG #### [facility] [address] [place] [address] 99251 Glucose [Mass/Vol]78 mg/jMXdfvcp30-81FcctuMetroHealth Cleveland Heights Medical CenterComment on above:Performed By: #### PROG #### [facility] [address] [place] [address] 40520 Potassium [Moles/Vol]4.2 mmol/LNormal3.7-5.3MMetroHealth Cleveland Heights Medical Center Comment on above:Performed By: #### PROG #### [facility] [address] [place] [address] 89944 Protein [Mass/Vol]6.6 g/dLNormal6.4-8.3MHolzer Health System HospitalComment on above:Performed By: #### PROG #### [employer] [address] [place], [place] 0388508 Sodium [Moles/Vol]134 mmol/GYxl630-915ZtowbBrown Memorial HospitalComment on above:Performed By: #### PROG #### [employer] [address] [place], [place] [id number] Staging:NormalBrown Memorial HospitalComment on above:Result Comment: Stage 1: Some kidney damage normal GFR Stage 2: Mild kidney damage GFR 60-89 Stage 3: Moderate kidney damage GFR 30-59 Stage 4: Severe kidney damage GFR 15-29 Stage 5: Severe kidney damage GFR <15 ESRD - chronic treatment by dialysis or transplantPerformed By: #### PROG #### [employer] [address] [place] [address] Urea nitrogen [Mass/Vol]7 mg/dLNormal6-20[facility] Comment on above:Performed By: #### PROG #### [employer] [address] [place] [address] [phone] US OB 14 PLUS WEEKS SINGLE OR FIRST GESTATIONon [id number] OB 14 PLUS WEEKS SINGLE OR FIRST GESTATIONEXAMINATION: TRANSABDOMINAL SECOND/THIRD TRIMESTER OBSTETRIC PELVIC ULTRASOUND WITH [...] Keaton Denton MD 06/12/18 Edited Result - FINALNormalMercy Lovely HospitalUS OB GREATER THAN 14 WEEKS ADDITIONAL FETUSon [id number] OB GREATER THAN 14 WEEKS ADDITIONAL FETUS [...] Signed by: Keaton Denton MD 06/12/18 Final resultNormalMercy Charlotte Hungerford HospitalUS OB TRANSVAGINALon [id number] OB TRANSVAGINALEXAMINATION: TRANSABDOMINAL SECOND/THIRD TRIMESTER OBSTETRIC PELVIC ULTRASOUND WITH [...] Signed by: Keaton Denton MD 06/12/18 Final resultNormalMerHolzer Medical Center – Jackson HospitalUrinalysis w/ Microon 06-12-2018----- NormalMercy Lovely HospitalComment on above:Performed By: #### PROG #### [employer] [address] [place], [place] [phone] Acetoacetic Acid,Ur1+AbnormalNEGMercy Lovely HospitalComment on above:Performed By: #### PROG #### [employer] [address] [place], [place] [phone] Amorphous sediment LM Ql (Urine sed)4+AbnormalNONEMercy Lovely HospitalComment on above:Performed By: #### PROG #### [facility] [employer] [address] [place] [address]28 Bacteria LM.HPF (Urine sed) [#/Area]1+AbnormalNONEMeSouthwest Mississippi Regional Medical Center HospitalComment on above:Performed By: #### PROG #### [facility] [employer] [address] [place] [address] 05095 Bilirubin, SemiQt,UrSMALLAbnormalNEGMercy Lovely HospitalComment on above:Performed By: #### PROG #### [facility] [employer] [address] [place] [address] 52219 Color (U)YELLOWNormalYELMercy Lovely HospitalComment on above: Performed By: #### PROG #### [facility] [employer] [address] [place] [address] 66043 Epithelial cells LM.HPF (Urine sed) [#/Area]0 TO 2Zxcssy4-71Lqwpk Lovely HospitalComment on above:Performed By: #### PROG #### [facility] [employer] [address] [place] [address] 41152 Glucose Ql (U)NegativeNormalNEGMercy Lovely HospitalComment on above:Performed By: #### PROG #### [facility] [employer] [address] [place] [address] 23832 Hemoglobin, UrNegativeNormalNEGMercy Lovely HospitalComment on above:Performed By: #### PROG #### [facility] [employer] [address] [place] [address] 40098 Leukocyte esterase Test strip Ql (U)SMALLAbnormalNEGMercy Lovely HospitalComment on above:Performed By: #### PROG #### [facility] [employer] [address] [place] [address] 69179 Nitrite,UrNegativeNormalNEGMercy Lovely HospitalComment on above: Performed By: #### PROG #### [facility] [employer] [address] [place] [address] 81563 pH (U)5.5 [pH]Normal5.0-9.0Mercy Lovely HospitalComment on above: Performed By: #### PROG #### [address] [address] Protein Ql (U)TRACEAbnormalNEGMercy Lovely HospitalComment on above:Performed By: #### PROG #### [facility] [employer] [address] [place] [address] 82391 RBC (U) [#/Vol]0 TO 6Ifgcfa9-9Hgpel Lovely HospitalComment on above:Performed By: #### PROG #### [facility] [employer] [address] [place] [address] 04533 Specific gravity (U) [Rel density]>1.024Ozez9.010-1.020Mercy Lovely HospitalComment on above:Performed By: #### PROG #### [address] [address] TurbidityCLOUDYAbnormalCLEARMercy Lovely HospitalComment on above: Performed By: #### PROG #### [address] [address] Urobilinogen,UrNormalNormalNORMMercy Lovely HospitalComment on above:Performed By: #### PROG #### [facility] [employer] [address] [place] [address] 52144 WBC (U) [#/Vol]2 TO 5Sjinth6-3Dupxq Lovely HospitalComment on above:Performed By: #### PROG #### [facility] [employer] [address] [place] [address] 43690 Casts LM.LPF (Urine sed) [#/Area]NOT REPORTEDNormalMercy Lovely HospitalComment on above:Performed By: #### PROG #### [employer] [address] [place] [address] 38751 CommentNOT REPORTEDNormalMercy Lovely HospitalComment on above: Performed By: #### PROG #### [facility] [address] [place] [address] 43497 Crystals LM Nom (Urine sed)NOT REPORTEDNormalNONEMercy Lovely HospitalComment on above:Performed By: #### PROG #### [employer] [address] [place] [address] 26737 Epithelial, RenalNOT WVFZYGNHLkllgc9Jqiqe Lovely HospitalComment on above:Performed By: #### PROG #### [employer] [address] [place] [address] 53675 Mucus StrandsNOT REPORTEDNormalNONEMercy Lovely HospitalComment on above:Performed By: #### PROG #### [facility] [employer] [address] [place] [address] 03445 Other ObservationsNOT REPORTEDNormalNREQMercy Lovely Hospital Comment on above:Performed By: #### PROG #### [facility] [employer] [address] [place] [address] 97250 TrichomonasNOT REPORTEDNormalNONEMercy Lovely HospitalComment on above:Performed By: #### PROG #### [facility] [employer] [address] [place] [address] 96374 Yeast LM Ql (Urine sed)NOT REPORTEDNormalNONEMercy Lovely Hospital Comment on above:Performed By: #### PROG #### [facility] [employer] [address] [place] [address] 98798 US OB 14 PLUS WEEKS SINGLE OR FIRST GESTATIONon [id number] OB 14 PLUS WEEKS SINGLE OR FIRST GESTATIONEXAMINATION: TRANSABDOMINAL SECOND/THIRD TRIMESTER OBSTETRIC PELVIC ULTRASOUND WITH [...] Signed by: Quyen Walker MD 05/18/18 Final resultNormalMercy Charlotte Hungerford HospitalUS OB GREATER THAN 14 WEEKS ADDITIONAL FETUSon [id number] OB GREATER THAN 14 WEEKS ADDITIONAL FETUSEXAMINATION: TRANSABDOMINAL SECOND/THIRD TRIMESTER OBSTETRIC PELVIC ULTRASOUND WITH [...] Interpreted by: Quyen Walker MD Signed by: Qyuen Walker MD 05/18/18 Final resultNormalMercy Griffin Hospital OB TRANSVAGINALon [id number] OB TRANSVAGINALEXAMINATION: TRANSABDOMINAL SECOND/THIRD TRIMESTER OBSTETRIC PELVIC ULTRASOUND WITH [...] Signed by: Quyen Walker MD 05/18/18 Final resultNormalMercy Lovely HospitalUrinalysis, Routineon 05-18-2018 Acetoacetic Acid,UrNegativeNormalNEGMercy Lovely HospitalComment on above: Performed By: #### PROG #### [employer] [address] [place] [address] 85102 Bilirubin, SemiQt,UrNegativeNormalNEGMercy Lovely HospitalComment on above:Performed By: #### PROG #### [employer] [address] [place] [address] 59078 Color (U)YELLOWNormalYELMercy Lovely HospitalComment on above: Performed By: #### PROG #### [employer] [address] [place] [address] 48722 Glucose Ql (U)NegativeNormalNEGMercy Lovely HospitalComment on above:Performed By: #### PROG #### [employer] [address] [place] [address] 70802 Hemoglobin, Ur3+AbnormalNEGMercy Lovely HospitalComment on above: Performed By: #### PROG #### [facility] [address] [place] [address] 94865 Leukocyte esterase Test strip Ql (U)LARGEAbnormalNEGMercy Lovely HospitalComment on above:Performed By: #### PROG #### [facility] [address] [place] [address] 86342 Nitrite,UrNegativeNormalNEGMercy Lovely HospitalComment on above: Performed By: #### PROG #### [facility] [address] [place] [address] 37022 pH (U)6.0 [pH]Normal5.0-9.0MerHolzer Medical Center – Jackson HospitalComment on above: Performed By: #### PROG #### [facility] [employer] [address] [place] [address] 59167 Protein Ql (U)NegativeNormalNEGMerHolzer Medical Center – Jackson HospitalComment on above:Performed By: #### PROG #### [facility] [employer] [address] [place] [address] 05099 Specific gravity (U) [Rel density]1.014Euvi3.010-1.020MerHolzer Medical Center – Jackson HospitalComment on above:Performed By: #### PROG #### [facility] [employer] [address] [place] [address] 31406 TurbidityCLOUDYAbnormalCLEARMerHolzer Medical Center – Jackson HospitalComment on above: Performed By: #### PROG #### [facility] [address] [place] [address] 42333 Urobilinogen,UrNormalNormalNORMMercy Lovely HospitalComment on above:Performed By: #### PROG #### [facility] [address] [place] [address] 89276 CommentNOT REPORTEDNormalMercy Lovely HospitalComment on above: Performed By: #### PROG #### [facility] [address] [place] [address] 45646 Urinalysis,Microon 05-18-2018-----NormalMercy Lovely Hospital Comment on above:Performed By: #### PROG #### [facility] [address] [place] [address] 04930 Bacteria LM.HPF (Urine sed) [#/Area]3+AbnormalNONEMeSouthwest Mississippi Regional Medical Center HospitalComment on above:Performed By: #### PROG #### [facility] [address] [place] [address] 20921 Epithelial cells LM.HPF (Urine sed) [#/Area]50 TO 968Dvcyyp4-44 [facility] HospitalComment on above:Performed By: #### PROG #### [facility] [address] [place] [address] 01576 RBC (U) [#/Vol]5 TO 62Idaxyg7-6Vptkd Lovely HospitalComment on above:Performed By: #### PROG #### [facility] [employer] [address] [place] [address] 64804 WBC (U) [#/Vol]20 TO 90Pqjlhj3-9Czomy [facility]in HospitalComment on above:Performed By: #### PROG #### [facility] [address] [place] [address] 44621 Amorphous sediment LM Ql (Urine sed)NOT REPORTEDNormalNONEMeSouthwest Mississippi Regional Medical Center HospitalComment on above:Performed By: #### PROG #### [facility] [address] [place] [address] 44563 Casts LM.LPF (Urine sed) [#/Area]NOT REPORTEDNormalMercy Lovely HospitalComment on above:Performed By: #### PROG #### [facility] [address] [place] [address] 05574 Crystals LM Nom (Urine sed)NOT REPORTEDNormalNONEMeSouthwest Mississippi Regional Medical Center HospitalComment on above:Performed By: #### PROG #### [employer] [address] [place] [address] 94442 Epithelial, RenalNOT ZIDXBEHBMazsvj6XzugsBrown Memorial HospitalComment on above:Performed By: #### PROG #### [facility] [employer] [address] [place] [address] 48363 Mucus StrandsNOT REPORTEDMercy Hospital St. John'SalNONEMeConnecticut Children's Medical CenterComment on above:Performed By: #### PROG #### [address] [address] Other ObservationsNOT REPORTEDrmalNREQBrown Memorial Hospital Comment on above:Performed By: #### PROG #### [address] [address]69 TrichomonasNOT REPORTEDNormalNONEMeConnecticut Children's Medical CenterComment on above:Performed By: #### PROG #### [address] [address]61 Yeast LM Ql (Urine sed)NOT REPORTEDWVUMedicine Harrison Community Hospital Comment on above:Performed By: #### PROG #### [address] [address] CBC with Diffon [id number]. Basophil0.06 k/uLNormal0.00-0.20 [facility] HospitalComment on above:Performed By: #### E2 #### [address] 64732 Abs.Imm.Granulocyte0.18 k/uLNormal0.00-0.30[facility] Comment on above:Performed By: #### E2 #### [address] [address]82 Abs.Neutrophil (Seg)15.05 k/uLHigh1.50-8.10[facility] Comment on above:Performed By: #### E2 #### [address] [address] Basophils/100 WBC (Bld)0 %Normal0-2MHolzer Health System HospitalComment on above:Performed By: #### E2 #### [address] [address]86 Eosinophils (Bld) [#/Vol]0.32 10*3/uLNormal0.00-0.44[facility] HospitalComment on above:Performed By: #### E2 #### [address] 91598 Eosinophils/100 WBC (Bld)2 %Normal1-4[facility] HospitalComment on above:Performed By: #### E2 #### [address] 06272 Erythrocyte distribution width (RBC) [Ratio]14.6 %High11.8-14.4 [facility] HospitalComment on above:Performed By: #### E2 #### [address] [address] Hematocrit (Bld) [Volume fraction]38.3 %Vgobvq09.3-47.1MHolzer Health System HospitalComment on above:Performed By: #### E2 #### [address] [address] Hemoglobin (Bld) [Mass/Vol]12.5 g/zISercas05.9-15.1Mmercy health st[facility] hospitaly Lovely HospitalComment on above:Performed By: #### E2 #### [address] [address] Immature granulocytes (Bld) [#/Vol]1 %Mjod2FhgpnChillicothe Hospital Hospital Comment on above:Performed By: #### E2 #### [address] [address] Lymphocytes (Bld) [#/Vol]4.12 10*3/uLHigh1.10-3.70[facility] HospitalComment on above:Performed By: #### E2 #### [facility] [employer] [address] [place] [address] 14434 Lymphocytes/100 WBC (Bld)20 %Bbc03-67HawqzBrown Memorial HospitalComment on above:Performed By: #### E2 #### [facility] [employer] [address] [place] [address] 89659 MCH (RBC) [Entitic mass]28.2 yuMajsqa45.2-33.5[facility] Comment on above:Performed By: #### E2 #### [facility] [employer] [address] [place] [address] 30747 MCHC (RBC) [Mass/Vol]32.6 g/hVMnnfue19.4-34.8[facility] Comment on above:Performed By: #### E2 #### [facility] [employer] [address] [place] [address] 29625 MCV (RBC) [Entitic vol]86.3 mYTscxas20.6-102.9[facility] Comment on above:Performed By: #### E2 #### [facility] [employer] [address] [place] [address] 94786 Monocytes (Bld) [#/Vol]0.91 10*3/uLNormal0.10-1.20[facility] HospitalComment on above:Performed By: #### E2 #### [facility] [employer] [address] [place] [address] 94588 Monocytes/100 WBC (Bld)4 %Normal3-12[facility] HospitalComment on above:Performed By: #### E2 #### [facility] [employer] [address] [place] [address] 21429 Neutrophil (Seg)73 %Hiiz71-59Litua Tiffin HospitalComment on above: Performed By: #### E2 #### [facility] [employer] [address] [place] [address] 16935 NRBC Automated0.0 per 100 WBCNormal0.0[facility] HospitalComment on above:Performed By: #### E2 #### [facility] [address] [place] [address] 51335 Platelet mean volume (Bld) [Entitic vol]9.7 fLNormal8.1-13.5[facility] Memorial HospitalComment on above:Performed By: #### E2 #### [facility] [employer] [address] [place] [address] 96681 Platelets (Bld) [#/Vol]310 10*3/sTZxorkl576-902RruzqBrown Memorial HospitalComment on above:Performed By: #### E2 #### [facility] [employer] [address] [place] [address] 61545 RBC (Bld) [#/Vol]4.44 10*6/uLNormal3.95-5.11[facility] Comment on above:Performed By: #### E2 #### [facility] [employer] [address] [place] [address] 59955 WBC (Bld) [#/Vol]20.6 10*3/uLHigh3.5-11.3MMetroHealth [facility] Comment on above:Performed By: #### E2 #### [facility] [address] [place] [address] 46100 Auto Diff PerformedNOT REPORTEDNormalChillicothe Hospital HospitalComment on above:Performed By: #### E2 #### [facility] [address] [place] [address] 90615 Platelets (Bld) [#/Vol]NOT REPORTEDNormMartins Ferry Hospital Comment on above:Performed By: #### E2 #### [facility] [address] [place] [address] 49975 RBC morphology finding Nom (Bld)NOT REPORTEDNoOhioHealth Hardin Memorial HospitalComment on above:Performed By: #### E2 #### [employer] [address] [place] [address] 82195 WBC MorphologyNOT REPORTEDNormalChillicothe Hospital HospitalComment on above:Performed By: #### E2 #### [employer] [address] [place] [address] 88464 Comp Metabolic Profon 15-63-1762Idgxtaw [Mass/Vol]3.7 g/dLNormal 3.5-5.2MHolzer Health System HospitalComment on above:Performed By: #### E2 #### [employer] [address] [place] [address] 87738 Albumin/Globulin [Mass ratio]1.3 {ratio}Normal1.0-2.5Brown Memorial HospitalComment on above:Performed By: #### E2 #### [employer] [address] [place] [address] 43992 Alkaline Phos61 U/EUszznc98-071MxvbsBrown Memorial HospitalComment on above:Performed By: #### E2 #### [employer] [address] [place] [address] 30657 ALT [Catalytic activity/Vol]28 U/LNormal5-33[facility] Comment on above:Performed By: #### E2 #### [employer] [address] [place] [address] 66256 Anion gap [Moles/Vol]15 mmol/LNormal9-17[facility] Comment on above:Performed By: #### E2 #### [employer] [address] [place] [address] 27674 AST [Catalytic activity/Vol]17 U/LNormal<32[facility] Comment on above:Performed By: #### E2 #### [employer] [address] [place] [address] 54361 Bilirubin Ql (U)0.27 mg/dLLow0.3-1.2MHolzer Health System HospitalComment on above:Performed By: #### E2 #### [facility] [address] [place] [address] 20170 BUN/CRE Qilkn60Mowhpv0-63Qvmhq Tiffin HospitalComment on above: Performed By: #### E2 #### [facility] [address] [place] [address] 37609 Calcium [Mass/Vol]9.3 mg/dLNormal8.6-10.4[facility] Comment on above:Performed By: #### E2 #### [facility] [address] [place] [address] 68236 Chloride [Moles/Vol]102 mmol/SNzpchc01-279IellkBrown Memorial Hospital Comment on above:Performed By: #### E2 #### [facility] [employer] [address] [place] [address] 29527 CO2 [Moles/Vol]20 mmol/VYahclc15-70WerwaBrown Memorial HospitalComment on above:Performed By: #### E2 #### [facility] [employer] [address] [place] [address] 68312 Creatinine [Mass/Vol]0.65 mg/dLNormal0.50-0.90[facility] Comment on above:Performed By: #### E2 #### [facility] [employer] [address] [place] [address] 82937 GFR, Amer>60Normal>60[facility] HospitalComment on above: Performed By: #### E2 #### [facility] [address] [place] [address] 05036 GFR,non Amer>60Normal>60[facility] HospitalComment on above:Performed By: #### E2 #### [facility] [employer] [address] [place] [address] 44664 Glucose [Mass/Vol]108 mg/gYBqyk38-96Kooun Tiffin HospitalComment on above:Performed By: #### E2 #### [facility] [employer] [address] [place] [address] 65849 Potassium [Moles/Vol]3.6 mmol/LLow3.7-5.3MMetroHealth [facility] Comment on above:Performed By: #### E2 #### [employer] [facility] [place] [address] Protein [Mass/Vol]6.5 g/dLNormal6.4-8.3MMetroHealth Cleveland Heights Medical CenterComment on above:Performed By: #### E2 #### [employer] [facility] [place] [address] Sodium [Moles/Vol]137 mmol/DRiopql091-229TyevmBrown Memorial Hospital Comment on above:Performed By: #### E2 #### [employer] [address] [place] [address] [phone] Urea nitrogen [Mass/Vol]11 mg/dLNormal6-20[facility] Comment on above:Performed By: #### E2 #### [employer] [address] [place] [address] 72185 (cont.)[facility]Point Medical CenterComment on above:Result Comment: Average GFR for 30-39 years old: 107 mL/min/1.73sq m Chronic Kidney Disease: <60 mL/min/1.73sq m Kidney failure: <15 mL/min/1.73sq m eGFR calculated using average adult body mass. Additional eGFR calculator available at: http://www.[employer].com/multiple_crcl_2012.htmPerformed By: #### E2 #### [employer] [facility] [place] [address] Staging:[facility] Tri[facility] Medical CenterComment on above:Result Comment: Stage 1: Some kidney damage normal GFR Stage 2: Mild kidney damage GFR 60-89 Stage 3: Moderate kidney damage GFR 30-59 Stage 4: Severe kidney damage GFR 15-29 Stage 5: Severe kidney damage GFR <15 ESRD - chronic treatment by dialysis or transplantPerformed By: #### E2 #### [employer] [address] Troponinon 18-00-0855Nkfsrnak I.cardiac [Mass/Vol]ng/mLNormal<0.03 [facility] HospitalComment on above:Result Comment: Troponin T results cannot be compared to Troponin-I results.Performed By: #### E2 #### [address] [address] Troponin I.cardiac [Mass/Vol]NormalMerHolzer Medical Center – Jackson HospitalComment on above:Result Comment: Reference Range: <0.03 Within reference range. 0.03-0.09 Possible myocardial damage. Repeat at appropriate intervals to rule out chronic elevation. >= 0.10 Indicative of myocardial damage. Patients with high levels of Biotin oral intake (i.e >5mg/day) may have falsely decreased Troponin T levels. Samples collected within 8 hours of biotin intake may require additional information for diagnosis.Performed By: #### E2 #### [address] [address] Troponin I.cardiac [Mass/Vol]NOT REPORTEDNormal0-14MerHolzer Medical Center – Jackson HospitalComment on above:Performed By: #### E2 #### [facility] [employer] [address] [place] [address] 99884 Urinalysis, Routineon 86-45-6265Olvzrxnsayy Acid,UrTRACEAbnormalNEG [facility] HospitalComment on above:Performed By: #### E2 #### [facility] [employer] [address] [place] [address] 87541 Bilirubin, SemiQt,UrNegativeNormalNEGMerHolzer Medical Center – Jackson HospitalComment on above:Performed By: #### E2 #### [facility] [employer] [address] [place] [address] 70688 Color (U)YELLOWNormalYELMerHolzer Medical Center – Jackson HospitalComment on above: Performed By: #### E2 #### [address] [address] Glucose Ql (U)NegativeNormalNEGMercy Lovely HospitalComment on above:Performed By: #### E2 #### [facility] [employer] [address] [place] [address] 04625 Hemoglobin, UrNegativeNormalNEGMercy Lovely HospitalComment on above:Performed By: #### E2 #### [facility] [employer] [address] [place] [address] 45794 Leukocyte esterase Test strip Ql (U)SMALLAbnormalNEGMercy Lovely HospitalComment on above:Performed By: #### E2 #### [facility] [employer] [address] [place] [address] 20174 Nitrite,UrNegativeNormalNEGMercy Lovely HospitalComment on above: Performed By: #### E2 #### [facility] [employer] [address] [place] [address] 06731 pH (U)6.0 [pH]Normal5.0-9.0[facility] HospitalComment on above: Performed By: #### E2 #### [facility] [employer] [address] [place] [address] 77994 Protein Ql (U)NegativeNormalNEGMerHolzer Medical Center – Jackson HospitalComment on above:Performed By: #### E2 #### [facility] [employer] [address] [place] [address] 78433 Specific gravity (U) [Rel density]>1.802Oetk4.010-1.020[facility] HospitalComment on above:Performed By: #### E2 #### [facility] [employer] [address] [place] [address] 60645 TurbidityCLEARNormalCLEARMerHolzer Medical Center – Jackson HospitalComment on above: Performed By: #### E2 #### [facility] [employer] [address] [place] [address] 15048 Urobilinogen,UrNormalNormalNORMMerHolzer Medical Center – Jackson HospitalComment on above:Performed By: #### E2 #### [facility] [employer] [address] [place] [address] 69943 CommentNOT REPORTEDNormalMercy Lovely HospitalComment on above: Performed By: #### E2 #### [facility] [employer] [address] [place] [address] 51085 Urinalysis,Microon 04-07-2018-----NormalMercy Lovely Hospital Comment on above:Performed By: #### PROG #### [facility] [employer] [address] [place] [address] 51329 Epithelial cells LM.HPF (Urine sed) [#/Area]NoneNormal0-25Mercy Lovely HospitalComment on above:Performed By: #### PROG #### [facility] [employer] [address] [place] [address] 55767 RBC (U) [#/Vol]NoneNormal0-2Mercy Lovely HospitalComment on above: Performed By: #### PROG #### [facility] [employer] [address] [place] [address] 36611 WBC (U) [#/Vol]0 TO 1Fptyxi1-8Orvne Lovely HospitalComment on above:Performed By: #### PROG #### [facility] [employer] [address] [place] [address] 78555 Amorphous sediment LM Ql (Urine sed)NOT REPORTEDNormalNONEMercy Lovely HospitalComment on above:Performed By: #### PROG #### [facility] [employer] [address] [place] [address] 40267 Bacteria LM.HPF (Urine sed) [#/Area]NOT REPORTEDNormalNONEMercy Lovely HospitalComment on above:Performed By: #### PROG #### [facility] [employer] [address] [place] [address] 29984 Casts LM.LPF (Urine sed) [#/Area]NOT REPORTEDNormalMercy Lovely HospitalComment on above:Performed By: #### PROG #### [employer] [address] [place] [address] 64234 Crystals LM Nom (Urine sed)NOT REPORTEDNormalNONEMercy Lovely HospitalComment on above:Performed By: #### PROG #### [employer] [address] [place] [address] 39439 Epithelial, RenalNOT VDJXVHUSZbmdhq5Lfzjz Lovely HospitalComment on above:Performed By: #### PROG #### [employer] [address] [place] [address] 01853 Mucus StrandsNOT REPORTEDNormalNONEMercy Lovely HospitalComment on above:Performed By: #### PROG #### [employer] [address] [place] [address] 32735 Other ObservationsNOT REPORTEDNormalNREQMercy Lovely Hospital Comment on above:Performed By: #### PROG #### [employer] [address] [place] [address] 88073 TrichomonasNOT REPORTEDNormalNONEMercy Lovely HospitalComment on above:Performed By: #### PROG #### [facility] [address] [place] [address] 74433 Yeast LM Ql (Urine sed)NOT REPORTEDNormalNONEMercy Lovely Hospital Comment on above:Performed By: #### PROG #### [facility] [employer] [address] [place] [address] 51802 XR CHEST (2 VW)on 46-36-4033VM CHEST (2 VW)EXAMINATION: TWO VIEWS OF THE CHEST 04/07/2018 12:49 pm COMPARISON: 01/22/2013, 04/24/2017 HISTORY: ORDERING SYSTEM PROVIDED HISTORY: dyspnea, - 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 Trachea is midline. [...] by: Victor Manuel Mcduffie MD 04/07/18 Final resultNoOhioHealth Hardin Memorial HospitalChlamydia/GC DNA, Uron 02-03-2018 Chlamydia Probe, UrNegativeNocarepartners rehabilitation hospitalNEGBrown Memorial HospitalComment on above:Result Comment: CHLAMYDIA TRACHOMATIS DNA not detected by nucleic acid [...] positive results by an alternative nucleic acid target.Performed By: #### E2 #### [place] [address] Gonorrhea Probe, UrNegativeChildren's Hospital of ColumbusComment on above:Result Comment: NEISSERIA GONORRHOEAE DNA not detected by nucleic acid [...] positive results by an alternative nucleic acid target.Performed By: #### E2 #### [place] [address] Cult,Urine,CCon 20-58-7049Halc,Urine,CCSpecimen Description .URINE Special Requests CCMS Culture NO SIGNIFICANT GROWTH Report Status FINAL 02/03/2018Magruder Hospitalment on above: Performed By: #### E2 #### [address] [address] HIV Ag/Abon 71-49-8246KUG Ag/AbNONREACTIVENormidNRBrown Memorial HospitalComment on above:Result Comment: No laboratory evidence of HIV infection. If acute HIV infection is suspected, consider testing for HIV-1 RNA.Performed By: #### AHCV, HIVCMB #### [address] [address] #### GLYHGB #### [address] [place], [place] [address] Hep C Abon 50-29-4485Gyy C AbNONREACTIVEMagruder Hospital HospitalComment on above:Result Comment: The hepatitis C procedure used in [...] is recommended by ordering HCV RNA by PCR.Performed By: #### DHIRAJCV, HIVCMB #### [address] [address] #### GLYTISHB #### [address] [place], [place] [address] Prenatal Profileon 55-17-6824Oxw B Surf AgNONREPomerene HospitalComment on above:Performed By: #### E2 #### [address] [address] Rubella Ab, OdJ943.2 IU/mLNSelect Medical OhioHealth Rehabilitation Hospital - DublinComment on above:Result Comment: REFERENCE RANGE: <5.0 NON-REACTIVE (non-immune) 5.0 TO 9.9 EQUIVOCAL >=10.0 REACTIVE (immune)Performed By: #### E2 #### [address] [address] T.pallidum Ab ScreenNONBethesda North HospitalComment on above:Result Comment: T. pallidum antibodies are not detected. There is no serological evidence of infection with T. pallidum (early primary syphilis cannot be excluded). Retest in 2-4 weeks if syphilis is clinically suspect.Performed By: #### E2 #### [address] [address] Hemoglobin A1Con 42-73-6867VeW9x (Bld) [Mass fraction]111 mg/dL NormalBrown Memorial HospitalComment on above:Result Comment: The ADA and AACC recommend providing the estimated average glucose result to permit better patient understanding of their HBA1c result.Performed By: #### AMY HIVCMB #### [address] [address] #### GLYHGB #### [address] [place] [address] HbA1c (Bld) [Mass fraction]5.5 %Normal4.8-5.9[facility] Comment on above:Performed By: #### AMY HIVCMB #### [address] [address] #### GLYHGB #### [address] [place] [address] Prenatal Profileon 34-82-8643Cmc. Basophil0.07 k/uLNormal0.00-0.20 [facility] HospitalComment on above:Performed By: #### E2 #### [address] [address] Abs.Imm.Granulocyte0.05 k/uLNormal0.00-0.30[facility] Comment on above:Performed By: #### E2 #### [address] [address] Abs.Neutrophil (Seg)9.31 k/uLHigh1.50-8.10[facility] Comment on above:Performed By: #### E2 #### [address] [address] Basophils/100 WBC (Bld)1 %Normal0-2MMetroHealth Cleveland Heights Medical CenterComment on above:Performed By: #### E2 #### [address] [address] Eosinophils (Bld) [#/Vol]0.36 10*3/uLNormal0.00-0.44[facility] HospitalComment on above:Performed By: #### E2 #### [address] [address] Eosinophils/100 WBC (Bld)3 %Normal1-4[facility] HospitalComment on above:Performed By: #### E2 #### [address] [address] Erythrocyte distribution width (RBC) [Ratio]15.0 %High11.8-14.4 [facility] HospitalComment on above:Performed By: #### E2 #### [place] [id number] Hematocrit (Bld) [Volume fraction]40.6 %Dvjkts68.3-47.1MHolzer Health System HospitalComment on above:Performed By: #### E2 #### [address] [address] Hemoglobin (Bld) [Mass/Vol]12.9 g/uSHvxqyc15.9-15.1MMetroHealth Cleveland Heights Medical CenterComment on above:Performed By: #### E2 #### [place] [id number] Immature granulocytes (Bld) [#/Vol]0 %Wvncfr3JllruBrown Memorial Hospital Comment on above:Performed By: #### E2 #### [place] [id number] Lymphocytes (Bld) [#/Vol]3.96 10*3/uLHigh1.10-3.70[facility] HospitalComment on above:Performed By: #### E2 #### [address] [place] [address] Lymphocytes/100 WBC (Bld)27 %Yxrzjy01-62JvqpoBrown Memorial Hospital Comment on above:Performed By: #### E2 #### [facility] [address] [place] [address] 80364 MCH (RBC) [Entitic mass]27.8 qzOxqppl86.2-33.5[facility] Comment on above:Performed By: #### E2 #### [facility] [address] [place] [address] 62813 MCHC (RBC) [Mass/Vol]31.8 g/rFGhctgu43.4-34.8[facility] Comment on above:Performed By: #### E2 #### [facility] [employer] [address] [place] [address] 25781 MCV (RBC) [Entitic vol]87.5 dCKsaauo63.6-102.9[facility] Comment on above:Performed By: #### E2 #### [facility] [employer] [address] [place] [address] 61467 Monocytes (Bld) [#/Vol]0.68 10*3/uLNormal0.10-1.20[facility] HospitalComment on above:Performed By: #### E2 #### [facility] [employer] [address] [place] [address] 24200 Monocytes/100 WBC (Bld)5 %Normal3-12[facility] HospitalComment on above:Performed By: #### E2 #### [facility] [employer] [address] [place] [address] 41075 Neutrophil (Seg)64 %Ddlfgt80-18WdviwBrown Memorial HospitalComment on above:Performed By: #### E2 #### [facility] [employer] [address] [place] [address] 22347 NRBC Automated0.0 per 100 WBCNormal0.0[facility] HospitalComment on above:Performed By: #### E2 #### [facility] [address] [place] [address] 37576 Platelet mean volume (Bld) [Entitic vol]9.7 fLNormal8.1-13.5[facility] HospitalComment on above:Performed By: #### E2 #### [facility] [employer] [address] [place] [address] 63490 Platelets (Bld) [#/Vol]315 10*3/hRDwljak189-242Utdgy Tiffin HospitalComment on above:Performed By: #### E2 #### [facility] [employer] [address] [place] [address] 53470 RBC (Bld) [#/Vol]4.64 10*6/uLNormal3.95-5.11[facility] Comment on above:Performed By: #### E2 #### [facility] [employer] [address] [place] [address] 18142 WBC (Bld) [#/Vol]14.4 10*3/uLHigh3.5-11.3MMetroHealth [facility] Comment on above:Performed By: #### E2 #### [facility] [employer] [address] [place] [address] 27658 Auto Diff PerformedNOT REPORTEDNormalChillicothe Hospital HospitalComment on above:Performed By: #### E2 #### [facility] [employer] [address] [place] [address] 55470 Platelets (Bld) [#/Vol]NOT REPORTEDNormalBrown Memorial Hospital Comment on above:Performed By: #### E2 #### [facility] [address] [place] [address] 89550 RBC morphology finding Nom (Bld)NOT REPORTEDNormalMercy Lovely HospitalComment on above:Performed By: #### E2 #### [facility] [employer] [address] [place] [address] 16153 WBC MorphologyNOT REPORTEDNormalMercy Lovely HospitalComment on above:Performed By: #### E2 #### [address] [address] Prenatal Type + Scrnon 39-45-0749Xtucbupv Type + ScrnNegativeNormal [facility] Lov[facility] HospitalComment on above:Performed By: #### E2 #### [facility] [employer] [address] [place] [address] 55613 Toxicology Scree, Urineon 26-00-3754Zdjzwuafgmn(s),UrNegativeNormal NEGMercy Lovely HospitalComment on above:Performed By: #### E2 #### [facility] [employer] [address] [place] [address] 05407 Barbiturate(s),UrNegativeNormalNEGMercy Lovely HospitalComment on above:Performed By: #### E2 #### [facility] [employer] [address] [place] [address] 36210 Benzodiazepine(s)NegativeNormalNEGMercy Lovely HospitalComment on above:Performed By: #### E2 #### [facility] [employer] [address] [place] [address] 40120 Buprenorphrine, UrNegativeNormalNEGMercy Lovely HospitalComment on above:Performed By: #### E2 #### [facility] [employer] [address] [place] [address] 19221 Cannabinoid(s),UrNegativeNormalNEGMercy Lovely HospitalComment on above:Performed By: #### E2 #### [facility] [employer] [address] [place] [address] 73997 Cocaine MetaboliteNegativeNormalNEGMercy Lovely HospitalComment on above:Performed By: #### E2 #### [facility] [employer] [address] [place] [address] 97854 Methadone Ql (U)NegativeNormalNEGMercy Lovely HospitalComment on above:Performed By: #### E2 #### [address] [address] Methamphetamine, UrNegativeNormalNEGMercy Lovely HospitalComment on above:Performed By: #### E2 #### [address] [address] Opiate(s), UrNegativeNormalNEGMercy Lovely HospitalComment on above:Performed By: #### E2 #### [address] [address] Oxycodone, UrineNegativeNormalNEGMercy Lovely HospitalComment on above:Performed By: #### E2 #### [address] [address] Phencyclidine, UrNegativeNormalNEGMercy Lovely HospitalComment on above:Performed By: #### E2 #### [address] [address] Propoxyphene,UrineNegativeNormalNEGMercy Lovely HospitalComment on above:Performed By: #### E2 #### [address] [address] Tricyclic antidepressants Screen Ql (U)NegativeNormalNEGMercy Lovely HospitalComment on above:Result Comment: Drug screen results are to be used for medical purposes only. All positive results are unconfirmed. Testing for employment or legal uses should be sent to a reference laboratory for confirmation.Performed By: #### E2 #### [address] [address] Interpretive InfoNOT REPORTEDNormalMercy Lovely HospitalComment on above:Performed By: #### E2 #### [address] [address] MDMA, UrineNOT REPORTEDNormalNEGMercy Lovely HospitalComment on above:Performed By: #### E2 #### [address] [id number] HCG, Quanton [id number], Sitgi1444 IU/LHigh<5Mercy Lovely HospitalComment on above:Result Comment: Non-preg premeno <=5 Postmeno <=8 Male <=3 If HCG results do not concur with clinical observations, additional testing to confirm result is recommended. This test is not labeled for use as a tumor marker.Performed By: #### BHCG #### [address] [place] [address] #### PROG #### [facility] [address] [address] [place], [place] [id number] Progesteroneon 62-56-4974Qexzgvjvaaet49.56 ng/mLNormalChillicothe Hospital HospitalComment on above:Result Comment: FEMALE (healthy): Follicular phase 0.06-0.89 Ovulation phase 0.12-12.00 Luteal phase 1.83-23.90 Postmenopausal <0.13Performed By: #### BHCG #### [address] [place] [address] #### PROG #### [facility] Doctor [address] [address] [place] [address] HCG, Quanton [id number], Wamwb994 IU/LHigh<5Mer[facility] Lovely HospitalComment on above:Result Comment: Non-preg premeno <=5 Postmeno <=8 Male <=3 If HCG results do not concur with clinical observations, additional testing to confirm result is recommended. This test is not labeled for use as a tumor marker.Performed By: #### BHCG #### [address] [place] [address] HCG, Quanton [id number], Pdufc064 IU/LHigh<5Mer[facility] Lovely HospitalComment on above:Result Comment: Non-preg premeno <=5 Postmeno <=8 Male <=3 If HCG results do not concur with clinical observations, additional testing to confirm result is recommended. This test is not labeled for use as a tumor marker.Performed By: #### BHCG #### [address] [place] [address] Progesteroneon 56-14-8519Nedvuhwmpngo16.39 ng/mLNormalBrown Memorial HospitalComment on above:Result Comment: FEMALE (healthy): Follicular phase 0.06-0.89 Ovulation phase 0.12-12.00 Luteal phase 1.83-23.90 Postmenopausal <0.13Performed By: #### PROG #### [facility] [address] [place] [address] Estradiolon 58-35-9943Xurrpuowt492 pg/fWRtyr00-268JcfcbBrown Memorial HospitalComment on above:Result Comment: FEMALES: Normally menstruating Luteal phase 33-298 Follicular phase 27-156 Midcycle phase 48-314 Postmenopausal (untreated) 5-50Performed By: #### E2 #### [address] [place] [address] Estradiolon 57-36-6023Tptfatgbe68 pg/wHUpacww31-660Vbfaj38 Peterson StreetComment on above:Result Comment: FEMALES: Normally menstruating Luteal phase 33-298 Follicular phase 27-156 Midcycle phase 48-314 Postmenopausal (untreated) 5-50Performed By: #### E2 #### [address] [place] [address] Vital Signs Date TimeVital SignValuePerforming AbbklabbqGiojasmr84-31-1178 14:42-0400Body .59 [degF]Vida Albrecht MD Work Phone: [facility]07-28-2025 14:42-0400Diastolic blood mm[Hg]Vida Albrecht MD Work Phone: [phone]07-28-2025 14:42-0400 Respiratory rate18 /minVida Albrecht MD Work Phone: [facility]07-28-2025 14:42-8320QiG5% (BldA) [Mass fraction]99 %Vida Albrecht MD Work Phone: [facility]07-28-2025 14:42-0400Systolic blood ilclxiym853 mm[Hg]Vida Albrecht MD Work Phone: [facility]07-28-2025 10:49-0400Body gqgxma547.6 Amanda Albrecht MD Work Phone: [facility]07-28-2025 10:49-0400Body mass index (BMI) [Ratio]41.2 kg/g0LdtympmuyldVida Albrecht MD Work Phone: [facility]07-28-2025 10:49-0400Body tllmhy530.86 kgVida Albrecht MD Work Phone: [facility]07-28-2025 10:45-0400Heart rate73 /minVida Albrecht MD Work Phone: [facility]04-21-2025 10:16-0400Body lgivur410 cmChris Dimas MD Work Phone: [facility]04-21-2025 10:16-0400Body mass index (BMI) [Ratio]40.74 kg/f4RujpdhChris Dimas MD Work Phone: [facility]04-21-2025 10:16-0400Body vruhgizcnca79.1 [degF]Chris Dimas MD Work Phone: [facility]04-21-2025 10:16-0400Body lfqufm932.33 kgChris Dimas MD Work Phone: [facility]04-21-2025 10:16-0400Diastolic blood mnacyhau61 mm[Hg]Chris Dimas MD Work Phone: [facility]04-21-2025 10:16-0400Heart rate69 /minChris Dimas MD Work Phone: [facility]04-21-2025 10:16-0400 Respiratory rate19 /Gladis Dimas MD Work Phone: [facility]04-21-2025 10:16-6140BqB2% (BldA) [Mass fraction]98 %Chris Dimas MD Work Phone: [facility]04-21-2025 10:16-0400Systolic blood xxsefylr362 mm[Hg]Chris Dimas MD Work Phone: [facility]03-13-2025 10:55-0400Heart rate59 /minJodi Mayra [facility]03-13-2025 10:55-3020BwO8% (BldA) [Mass fraction]99 %Cleo Mayra [facility]03-13-2025 10:55-0400 Diastolic blood tneazubl42 mm[Hg]Cleo Mayra [facility]03-13-2025 10:55-0400Mean blood smzyekbp68 mm[Hg]Cleo Mayra [facility]03-13-2025 10:55-0400 Systolic blood awnrckuf748 mm[Hg]Cleo Mayra [facility]03-13-2025 10:54-0400 Respiratory rate18 /minJodi Mayra [facility]03-13-2025 08:54-0400Heart rate73 /minJodi Mayra [facility]03-13-2025 08:54-1572IqX4% (BldA) [Mass fraction]98 %Cleo Mayra [facility]03-13-2025 08:54-0400 Respiratory rate20 /minJodi Mayra [facility]03-13-2025 08:54-0400Blood Pressure LocationJodi Mayra [facility]03-13-2025 08:54-0400Body hhwtkklveop53.88 [degF]Cleo Mayra [facility]03-13-2025 08:54-0400 Diastolic blood vpiqnkmr58 mm[Hg]Cleo Mayra [facility]03-13-2025 08:54-0400Mean blood guvfreif86 mm[Hg]Cleo Mayra [facility]03-13-2025 08:54-0400 Systolic blood xytzzjsd363 mm[Hg]Cleo Mayra [facility]09-18-2024 14:29-0400Body koqcwb285 cmBenkacy Murcek DO Work Phone: [facility] CenterVsoqduegun27-90-5863 14:29-0400Body mass index (BMI) [Ratio]41.81 kg/a5Lxsngbsg Murcek DO Work Phone: [facility] CenterDqjynuisfb57-27-9380 14:29-0400Body suxdha038.05 kgBenkacy Murcek DO Work Phone: [facility] CenterVfnqhimtwf32-11-2927 15:02-0400Body omkttw695 cm Brandon Pratibhacek DO Work Phone: [facility] CenterEbodcsawjd50-97-6261 15:02-0400Body mass index (BMI) [Ratio]41.98 kg/t2Quqrxtdx Murcek DO Work Phone: [facility] CenterAncleridid08-89-7833 15:02-0400Body .5 kgBenyunmin Murcek DO Work Phone: [facility] CenterOurqxntjrh81-07-4707 15:08-0400Blood Pressure LocationMocarraway methodist medical center Mouchli [phone]-SgafiMer[facility] Health [facility]07-31-2024 15:08-0400Diastolic blood ousaetln90 mm[Hg]Kevind Radhali 011-4066Evglkw-Ragxz[address] [place], [place] 4085607-31-2024 15:08-0400Heart rate74 /minMohamad Mouchli [phone]-Lvyzw[address] [place], [place] 4085607-31-2024 15:08-0400Respiratory rate16 /minMohamad Mouchli [phone]-Otlcf[address] [place], [place] 4085607-31-2024 15:08-0400Systolic blood vyiurpxr649 mm[Hg]Stefan Mclean [phone]-Uadcr[address] [place], [place] 4151307-15-2024 14:00-0400Diastolic blood evsfxrwn84 mm[Hg]Stefan Mclean [address] [place], [place] 7804307-15-2024 14:00-0400Heart rate70 /minMohamad Jasuchli [address] [place], [place] 7804307-15-2024 14:00-0400Mean blood ocdiypqi38 mm[Hg]Stefan Mclean [address] [place], [place] 7804307-15-2024 14:00-0691NiX5% (BldA) [Mass fraction]96 %Stefan Garciali [address] [place], [place] 7804307-15-2024 14:00-0400 Systolic blood pfqmawko725 mm[Hg]Kevind Radhali [address] [place], [place] 7804307-15-2024 13:50-0400 Diastolic blood zfovjmnf12 mm[Hg]Stefan Garciali [address] [place], [place] 7804307-15-2024 13:50-0400Heart rate87 /minMohamad Jasuchli [facility]07-15-2024 13:50-0400Mean blood qqwochcu65 mm[Hg]Mohamad Mouchli [address] [place], [place] 7804307-15-2024 13:50-0400 Respiratory rate15 /minMohamad Mouchli [address] [place], [place] 7804307-15-2024 13:50-2343WmS3% (BldA) [Mass fraction]98 %Mohamad Mouchli [address] [place], [place] 7804307-15-2024 13:50-0400 Systolic blood vqlnthly432 mm[Hg]Mohamad Mouchli [address] [place], [place] 7804307-15-2024 13:45-0400 Diastolic blood lsrxafcj97 mm[Hg]Mohamad Mouchli [address] [place], [place] 7804307-15-2024 13:45-0400Heart rate73 /minMohamad Mouchli [address] [place], [place] 7804307-15-2024 13:45-0400Mean blood scqtzsbe00 mm[Hg]Mohamad Mouchli [address] [place], [place] 7804307-15-2024 13:45-0400 Respiratory rate18 /minMohamad Mouchli [address] [place], [place] 7804307-15-2024 13:45-5488PoX1% (BldA) [Mass fraction]98 %Mohamad Mouchli [address] [place], [place] 7804307-15-2024 13:45-0400 Systolic blood bxjrxsto072 mm[Hg]Mohamad Mouchli [address] [place], [place] 7804307-15-2024 13:35-0400Body crgupihxudx97.88 [degF]Mohamad Mouchli [facility]07-15-2024 13:25-0400 Respiratory rate12 /minMohamad Mouchli [address] [place], [place] 7804307-15-2024 13:15-0400 Respiratory rate12 /minMohamad Mouchli [facility]07-15-2024 13:05-0400 Respiratory rate12 /minMohamad Mouchli [address] [place], [place] 7804307-15-2024 13:01-0400Blood Pressure LocationMohamad Mouchli [address] [place], [place] 7804307-15-2024 13:01-0400Body wabjcroeeqn03.06 [degF]Germánamad Mouchli [address] [place], [place] 7804307-11-2024 13:37-0400Blood Pressure LocationMohamad Mouchli [phone]-Snnwm[address] [place], [place] 4085607-11-2024 13:37-0400Diastolic blood ftuysvlc58 mm[Hg]Mohamad Mouchli 069-4757Ctfjye-Subuk[address] [place], [place] 4085607-11-2024 13:37-0400Heart rate82 /minMohamad Mouchli [phone]-Mvczl[address] [place], [place] 4085607-11-2024 13:37-0400Respiratory rate16 /minMohamad Mouchli [phone]-Qxmnr[address] [place], [place] 4085607-11-2024 13:37-0400Systolic blood nxsuegdz149 mm[Hg]Mohamad Mouchli 669-8701Huhnji-Yarnp[address] [place], [place] 4085606-24-2024 11:28-0400Body rumrlhqkxqo90.42 [degF]Quyen Phoenixsagrario [address] [place], [place] 3974606-24-2024 11:28-0400 Diastolic blood zdlzfiob61 mm[Hg]Quyen Garcia [facility]06-24-2024 11:28-0400Heart rate69 /Neda Garcia [facility]06-24-2024 11:28-0400Mean blood mm[Hg]Quyen Garcia [facility]06-24-2024 11:28-0400 Respiratory rate16 /Neda Garcia [facility]06-24-2024 11:28-3369XeZ4% (BldA) [Mass fraction]98 %Quyen Garcia [facility]06-24-2024 11:28-0400 Systolic blood mm[Hg]Quyen Garcia [facility]06-14-2024 13:12-0400Heart rate67 /minJocharity Mayra [facility]06-14-2024 13:12-7597PaE1% (BldA) [Mass fraction]98 %Cleo Mayra [facility]06-14-2024 13:12-0400Body smbdycyjgnk17.06 [degF]Cleo Mayra [facility]06-14-2024 13:12-0400 Diastolic blood ujvlftwy59 mm[Hg]Cleo Mayra [facility]06-14-2024 13:12-0400Mean blood ljxitppb87 mm[Hg]Cleo Mayra [facility]06-14-2024 13:12-0400 Systolic blood mm[Hg]Cleo Mayra [facility]06-14-2024 13:11-0400 Respiratory rate16 /minJodi Mayra [address] [place], [place] 9803106-14-2024 09:09-0400Heart rate80 /minJodi Mayra [address]06-14-2024 09:09-3456JlR1% (BldA) [Mass fraction]99 %Cleo Mayra [address] [place], [place] 9803106-14-2024 09:09-0400 Respiratory rate16 /minJodi Mayra [address]06-14-2024 09:08-0400Blood Pressure LocationJodi Mayra [address]06-14-2024 09:08-0400 Diastolic blood nwyqmtex21 mm[Hg]Cleo Mayra [address]06-14-2024 09:08-0400Mean blood jlepgcsp00 mm[Hg]Cleo Mayra [address] [place], [place] 9803106-14-2024 09:08-0400 Systolic blood ktoflofi725 mm[Hg]Cleo Mayra [address]06-14-2024 09:08-0400Body ifcgfrsfixf84.06 [degF]Cleo Mayra [address] [place], [place] 9803106-12-2024 14:08-0400Heart rate67 /minAstrit [facility]06-12-2024 14:08-0400 Respiratory rate16 /minAstrit [facility]06-12-2024 13:00-0400Diastolic blood yfbfsbpj24 mm[Hg][facility]06-12-2024 13:00-0400Heart rate74 /minAstrit [facility]06-12-2024 13:00-0400Mean blood rhzmyusv69 mm[Hg][facility]06-12-2024 13:00-0400Systolic blood kgdyyodp219 mm[Hg][facility]06-12-2024 12:19-0400Diastolic blood yrusxaiw13 mm[Hg][facility]06-12-2024 12:19-0400Heart rate77 /[facility]06-12-2024 12:19-0400Mean blood whdphbee300 mm[Hg][facility]06-12-2024 12:19-0400Respiratory rate13 /[facility]06-12-2024 12:19-2151MdN6% (BldA) [Mass fraction]100 %[facility]06-12-2024 12:19-0400Systolic blood pressure 148 mm[Hg][facility]06-12-2024 11:02-0400Body iishsvhuyri58.6 [degF][facility]06-12-2024 11:02-0400Diastolic blood eytijiqg78 mm[Hg][facility]06-12-2024 11:02-0400Heart rate82 /[facility]06-12-2024 11:02-0400Respiratory rate20 /[facility]06-12-2024 11:02-0400Systolic blood mm[Hg][facility]12-19-2022 15:44-0500Body qnaokcrnqai31.7 [degF]ERAN Coronado Work Phone: [facility]12[facility]-2022 15:44-0500 Diastolic blood jvrtfunv52 mm[Hg]ERAN Coronado Work Phone: [facility]12-19-2022 15:44-0500 Heart rate84 /minNP-C Abdullahi Coronado Work Phone: [phone] [place], [place] 2489412-19-2022 15:44-0500 Respiratory rate22 /minNP-C Abdullahi Coronado Work Phone: [phone] [place], [place] 2489412-19-2022 15:44-0500 SaO2% (BldA) [Mass fraction]95 %[employer] Abdullahi Coronado Work Phone: [phone] [place], [place] 2489412-19-2022 15:44-0500 Systolic blood jeemfezx088 mm[Hg][employer]-C Abdullahi Coronado Work Phone: [phone] [place], [place] 2489412-19-2022 15:42-0500 Body .56 cmNP-C Abdullahi Coronado Work Phone: [phone] [place], [place] 2489412-19-2022 15:42-0500 Body ibnlbx919.5 kgNP-C Abdullahi Coronado Work Phone: [phone] [place], [place] 2489411-07-2022 16:00-0500 Body xgklokciopv38 [degF][employer]-C Abdullahi Coronado Work Phone: 1(419)[address] [place], [place] 2489411-07-2022 16:00-0500 Diastolic blood hkzhqoiq85 mm[Hg][employer]-C Abdullahi Coronado Work Phone: 1(419)[address] [place], [place] 2489411-07-2022 16:00-0500 Heart rate99 /minNP-C Abdullahi Coronado Work Phone: 1(419)[address] [place], [place] 2489411-07-2022 16:00-0500 Respiratory rate18 /minNP-C Abdullahi Coronado Work Phone: 1([phone] [place], [place] 2489411-07-2022 16:00-0500 SaO2% (BldA) [Mass fraction]94 %[employer] Abdullahi Coronado Work Phone: 1(419)[address] [place], [place] 2489411-07-2022 16:00-0500 Systolic blood kehslqta827 mm[Hg][employer]-C Abdullahi Sola Work Phone: 1(419)[address] [place], [place] 2489411-07-2022 13:15-0500 Inhaled oxygen flow rate1 L/minNP-C Abdullahi Coronado Work Phone: [phone])[address] [place], [place] 2489411-07-2022 04:17-0500 Body xofoeo204.8 kgNP-C Abdullahi Coronado Work Phone: [phone])[address] [place], [place] 2489411-06-2022 18:10-0500 Diastolic blood yffiwnol22 mm[Hg][employer]-C Abdullahi Coronado Work Phone: 1(419)[address] [place], [place] 2489411-06-2022 18:10-0500 Heart mapc081 /minNP-C Abdullahi Coronado Work Phone: [phone])[address] [place], [place] 2489411-06-2022 18:10-0500 Inhaled oxygen flow rate2 L/minNP-C Abdullahi Coronado Work Phone: [phone])[address] [place], [place] 2489411-06-2022 18:10-0500 Respiratory rate22 /minNP-C Abdullahi Coronado Work Phone: 1([phone] [place], [place] 2489411-06-2022 18:10-0500 SaO2% (BldA) [Mass fraction]91 %[employer]-C Abdullahi Coronado Work Phone: [phone])[address] [place], [place] 2489411-06-2022 18:10-0500 Systolic blood ccoofhqa451 mm[Hg][employer]-C Abdullahi Coronado Work Phone: 1([phone] [place], [place] 2489411-06-2022 14:32-0500 Body qaxoyn206.56 cmNP-C Abdullahi Coronado Work Phone: 1([phone] [place], [place] 2489411-06-2022 14:32-0500 Body vxtzxfqqbio08.9 [degF][employer]GER-C Abdullahi Coronado Work Phone: [phone])[address] [place], [place] 2489411-06-2022 14:32-0500 Body adndyi341.7 kgNP-C Abdullahi Coronado Work Phone: 1([phone] [place], [place] 2489409-29-2022 13:25-0400 SaO2% (BldA) [Mass fraction]93 %[employer] Abdullahi Coronado Work Phone: [phone])[address] [place], [place] 2489409-29-2022 11:45-0400 Inhaled oxygen flow rate3.5 L/minNP-C Abdullahi Sola Work Phone: [phone])[address] [place], [place] 2489409-29-2022 11:09-0400 Body uzzjklixjyp65.2 [degF][employer]-C Abdullahi Sola Work Phone: [phone])[address] [place], [place] 2489409-29-2022 11:09-0400 Diastolic blood ikktqcew83 mm[Hg][employer]-C Abdullahi Sola Work Phone: 1(419)[address] [place], [place] 2489409-29-2022 11:09-0400 Heart rate78 /minNP-C Abdullahi Sola Work Phone: [phone])[address] [place], [place] 2489409-29-2022 11:09-0400 Respiratory rate24 /minNP-C Abdullahi Sola Work Phone: [phone])[address] [place], [place] 2489409-29-2022 11:09-0400 Systolic blood ppebhohk570 mm[Hg][employer]-C Abdullahi Coronado Work Phone: 1([phone] [place], [place] 2489409-29-2022 03:26-0400 Body kgNP-C Abdullahi Coronado Work Phone: [phone])[address] [place], [place] 2489409-28-2022 04:42-0400 Body jnkdyj687.56 cmNP-C Abdullahi Coronado Work Phone: [phone])[address] [place], [place] 2489409-28-2022 04:06-0400 Diastolic blood lwfrygev63 mm[Hg][employer]GER-C Abdullahi Sola Work Phone: [phone])[address] [place], [place] 2489409-28-2022 04:06-0400 Heart rate88 /minNP-C Abdullahi Sola Work Phone: [phone])[address] [place], [place] 2489409-28-2022 04:06-0400 Inhaled oxygen flow rate2 L/minNP-C Abdullahi Sola Work Phone: 1([phone] [place], [place] 2489409-28-2022 04:06-0400 Respiratory rate20 /minNP-C Abdullahi Sola Work Phone: 1([phone] [place], [place] 2150209-28-2022 04:06-0400 SaO2% (BldA) [Mass fraction]98 %GEOTHERMAL PLANT MANAGERMelinda Coronado Work Phone: [phone]09-28-2022 04:06-0400 Systolic blood ynanaqij510 mm[Hg][employer] PLANT MANAGER-Jase Coronado Work Phone: [phone]09-28-2022 02:24-0400 Body ceaglo883.56 cmNP-C Abdullahi Coronado Work Phone: 1(899)[address]09-28-2022 02:24-0400 Body [degF]GEOTHERMAL PLANT MANAGERMelinda Coronado Work Phone: 1(959)[address] [place], [place] 2489409-28-2022 02:24-0400 Body zkowqb831 kgNP-Jase Coronado Work Phone: 1(398)[address] [place], [place] 2489409-21-2022 11:23-0400 Body cydlxf117.6 [facility]09-21-2022 11:23-0400Body weight [facility]2021 16:45-0500Body .02 cm Brandon Perez Other [place] [employer] Other 12-09-2021 16:45-0500Body mass index (BMI) [Ratio] 50.53 kg/q1HanrdnBrandon Perez Other [employer] Other 12-09-2021 16:45-0500Body muzzut413.41 kgBrandon Perez Other [employer] Other 12-09-2021 16:45-0500Diastolic blood mm[Hg] Brandon [facility] Other [facility] Other 12-09-2021 16:45-0500Respiratory rate18 /minSkinsey Perez Other [employer] Other 12-09-2021 16:45-8120YzA2% (BldA) [Mass fraction]97 % Brandon Gutiérrezky Other [employer] Other 12-09-2021 16:45-0500Systolic blood kixnmtct468 mm[Hg] Brandon Chris Other [employer] Other 10-26-2021 10:00-0400Body .02 Benjaminnicolás Gutiérrezky Other [employer] Other 10-26-2021 10:00-0400Body mass index (BMI) [Ratio]50.3 kg/u9Lrsgbs Chris Other [employer] Other 10-26-2021 10:00-0400Body zurnxt856.82 kgShnicolettebrandi Perez Other [employer] Other 10-26-2021 10:00-0400Diastolic blood hqiayfug97 mm[Hg] Brandon Chris Other [employer] Other 10-26-2021 10:00-0400Systolic blood pmwdiagm380 mm[Hg] Brandon Chris Other [employer] Other 09-23-2021 14:30-0400Body yzzrnt202.02 Belkis Perez Other [employer] Other 09-23-2021 14:30-0400Body mass index (BMI) [Ratio] 49.77 kg/z3Zvcccs Chris Other [facility] [employer] Other 09-23-2021 14:30-0400Body wgeplj404.46 kgBrandon Perez Other [facility] [employer] Other 09-23-2021 14:30-0400Diastolic blood hfubudpp55 mm[Hg] Brandon Gutiérrezky Other [facility] [employer] Other 09-23-2021 14:30-5390TpB8% (BldA) [Mass fraction]98 % Brandon Gutiérrezky Other [facility] [employer] Other 09-23-2021 14:30-0400Systolic blood prtcaaes640 mm[Hg] Brandon Gutiérrezky Other [facility] [employer] Other Encounters Encounter DateEncounter TypeCare ProviderFacilityStart: 12-26-2024 End: 20-50-7328tskxtthvhxVcyd L SchwabFacility:FTMCStart: 12-26-2024 End: 78-46-6505rnhhtjhgszNcua L SchwabFacility:[facility] BellevueStart: 11-28-2024 End: 54-96-2714dcmlwvzgrkHzod L SchwabFacility:FTMCStart: 09-17-2024 End: 58-39-2607Wxsfqpmri department patient visitChaugust Albrecht MD Work Phone: [facility] Emergency DepartmentComment on above: Lower abdominal pain (Primary Dx)Start: 09-11-2024 End: 89-68-2395Jwimwcrqo encounterSheri Ammali LPNNOMS NB OBStart: 09-05-2024 End: 39-12-4197jbzoonjrjlWHALHG A LEHMANNFacility:FTMCStart: 09-04-2024 End: 23-79-6621shvppytxwbXQVCOD A LEHMANNFacility:[facility]vueStart: 06-11-2024 End: 24-79-5524Czimltvap department patient visitChris Dimas MD Work Phone: [facility] Emergency DepartmentComment on above: Fatigue, unspecified type (Primary Dx); DehydrationStart: 05-03-2024 End: 60-58-1956mvkfahghrxMyca L SchwabFacility:FTMCStart: 05-03-2024 End: 12-10-8725Kifitrb encounter procedureJodi L Mayra [facility] Start: 05-03-2024 End: 62-24-9125MsniqyimgRadg L Mayra [facility] Start: 04-30-2024 End: 80-30-6946wdwqfsfgbzEyhf L SchwabFacility:[facility]vueStart: 04-27-2024 End: 67-60-4825gqtpqywjlkDTR Cleo L SchwabFacility:FTMCStart: 02-17-2024 End: 92-12-2772qegvfatcfsPHF Cleo L SchwabFacility:[facility]vueStart: 12-05-2023 End: 45-67-3692mnlbzuvsumKSV Cleo L SchwabFacility:[facility]vueStart: 11-09-2023 End: 11-52-2998Pafhto follow up visit related to original pxBefrancescaoneil Juares DO Work Phone: [facility] SANDUSKYComment on above:Status post partial thyroidectomy (CMS/HCC) (Primary Dx); Other hyperparathyroidism (CMS/HCC)Start: 11-09-2023 End: 44-11-3667bjockyxdgjPVTYHQXN W MURCELEENAot AvailableStart: 11-09-2023 End: 59-55-4563Mywlym flowsheetBenyunmin W Pratibhalester DO Work Phone: [facility] SANDUSKYStart: 11-09-2023 End: 44-23-0562Zifonf flowsheetBenjamin W Murcek DO Work Phone: [facility] SANDUSKYStart: 10-27-2023 End: 16-92-8591Dmv-admission assessmentQuyen Garcia [facility] Start: 10-26-2023 End: 18-74-0127jcbkolevztKsxy Katie DemboskeFacility:FTMCStart: 10-26-2023 End: 63-74-3067Qapjbra encounter procedureQuyen Garcia [facility] Start: 10-25-2023 End: 19-90-8234Gzrujyx encounter procedureNP-C Cleo Hernandez Work Phone: [facility] [place] Work Phone: Start: 10-25-2023 End: 55-11-1171lxfnandcegLZ-C Cleo Hernandez Work Phone: [facility] Work Phone: Start: 10-12-2023 End: 34-63-3266Pqxhap follow up visit related to original pxBenjamin W Murcek DO Work Phone: [facility] SANDUSKYComment on above:Status post partial thyroidectomy (CMS/HCC) (Primary Dx); Thyroid mass (CMS/HCC); Low vitamin D levelStart: 10-12-2023 End: 34-42-0159ihcaaxyacpJTMKGJVL W MURCEKNot AvailableStart: 10-12-2023 End: 39-90-6723Azotdm flowsheetBenjamin W Murcek DO Work Phone: [facility] SANDUSKYStart: 10-12-2023 End: 88-32-7844Hcfeaj flowsheetBenjamin W Murcek DO Work Phone: [facility] SANDUSKYStart: 10-05-2023 End: 99-33-7687jblndtactzHS-C Cleo Hernandez Work Phone: [facility] Work Phone: Start: 10-05-2023 End: 64-53-5127Rjtmcsde ReferredNP-C Cleo Mayra Work Phone: [facility]-Lab Main [place] Work Phone: Start: 09-26-2023 End: 67-69-3868Vysizlk encounter procedureNP-C Cleo Hernandez Work Phone: [facility]-Electrodiagnostics Work Phone: Start: 09-26-2023 End: 71-75-9266rzgplpdlurHY-C Cleo Rivas Mayra Work Phone: [facility] Work Phone: Start: 09-21-2023 End: 62-94-0578hmktssvmcnXlbhbmc A. MouchliFacility:[facility] DHStart: 09-21-2023 End: 68-17-8691Gnmhqbi encounter procedureMoclara Mclean [phone]-GepinRegency Hospital Company [facility] Start: 09-20-2023 End: 31-89-3051huwpvbfucxYCYYCNYT W Yaneth AvailableStart: 17-30-1012Ixjblnj encounter statusBenyunoneil Murlester DO Work Phone: [facility] HealthcareStart: 09-05-2023 End: 87-20-4043gdjvslconaGhfduta A. MouchliFacility:FTMCStart: 09-05-2023 End: 56-93-9361Rxhjmkf encounter procedureStefan Mclean [facility] Start: 09-01-2023 End: 19-80-6944Jmu Drop offJosé Antonio BenitezPremier Health [facility] Start: 09-01-2023 End: 22-65-5736pybwevjfmrMlitwix A. MouchliFacility:FTMCStart: 09-01-2023 End: 85-47-2081Fwgqioc encounter procedureStefan Mclean [facility] Start: 09-01-2023 End: 74-08-9957cgdzxzjyspQbflssi A. MouchliFacility:[facility] DHStart: 09-01-2023 End: 29-44-5544Ipaliyr encounter procedureStefan Mclean [phone]-NzxiiRegency Hospital Company [facility] Start: 34-37-4874cfzqqnsgmfZqmidxj Mouchli Facility:[facility] DHStart: 08-15-2023 End: 47-89-3565fwxuwgdxclGrlnddi AdamowiczFacility:FTMCStart: 08-15-2023 End: 40-06-9080Nlvmgsc encounter Elvis Morro Jose [facility] Start: 08-12-2023 End: 53-67-4284bqfuruusqcRfvhomi AdamowiczFacility:FTMCStart: 08-12-2023 End: 33-02-8111Dcivlnl encounter procedureJosé Antonio [facility]Park[facility] Start: 08-05-2023 End: 53-76-0244wxvdbnwsgoNYS Cleo Godfrey SchwabFacility:FTMCStart: 08-05-2023 End: 30-74-6219DucmotaptJqqg L Mayra [facility] Start: 08-03-2023 End: 91-26-8839Vutqquyjc department patient visitElizabeth MoisePremier Health [facility] Start: 08-01-2023 End: 50-93-6337Xwb Drop offJodi L Mayra [facility] Start: 08-01-2023 End: 18-36-1085xgqjfdqpntLpkz L SchwabFacility:FTMCStart: 04-26-2023 End: 42-74-1621uypceycerjZPMGOEA Franko PORTER-NOSSEKNot AvailableStart: 03-29-2023 End: 80-96-7327zaxkjsupetMvzc L SchwabFacility:FT FM BellevueStart: 03-17-2023 End: 04-13-5535sjmkbpinjqWJGGPFF M FIOR-NOSSELEENAot AvailableStart: 02-23-2023 End: 54-18-2322usgrlfypnpNFQAHTQ N AUSTINNot AvailableStart: 01-24-2023 End: 02-74-2235orbttbdrqzSmzj L SchwabFacility:FTMCStart: 10-18-2022 End: 25-27-6560Ufz Drop offJodi L Mayra [facility] Start: 10-18-2022 End: 77-09-4080zehqdvtcpbBxxc L SchwabFacility:FTMCStart: 36-53-9743khzdyukvzk Cleo SchwabFacility:[facility] BellevueStart: 06-28-2022 End: 90-17-7364jnezpakrrvXZLPTX RODRIGUEZ .Facility:J0Qmqyp: 02-08-2022 End: 61-83-8754Jxnrbbpkp department patient visitERAN Coronado Work Phone: [facility] RoomStart: 12-27-2021 End: 53-01-3120Aitsgqbndd and management of inpatientJENNIFER-Jase Coronado Work Phone: [facility] [place] SurgicalStart: 12-10-2021 End: 18-31-6811Zcshjfq encounter procedureMeenakshi Obrien MD Work Phone: OphthalmologyComment on above:Monocular esotropia, left eye (Primary Dx)Start: 66-23-2799Plahlfohp encounterMeenakshi Obrien MD Work Phone: OphthalmologyComment on above:Patient QuestionStart: 11-26-2021 End: 86-59-5237Qzhbogm encounter procedureMeenakshi Obrien MD Work Phone: OphthalmologyComment on above:Monocular esotropia, left eye (Primary Dx)Start: 11-18-2021 End: 94-74-6997Bvanvfoliy and management of inpatientJENNIFER-Jase Coronado Work Phone: [place] [address] Ctr-[facility] [place] [facility] SurgStart: 66-97-9653qaytcpmusik encounterNP-C Abdullahi Coronado Work Phone: [place] [address] Ctr Work Phone: Start: 11-11-2021 End: 67-36-1003UMGMqnp [place] 1 VirtualPre AnesthesiaComment on above: Preoperative examination (Primary Dx); Hyperlipidemia, unspecified hyperlipidemia type; Asthma, unspecified asthma severity, unspecified whether complicated, unspecified whether persistent; PATRICE (obstructive sleep apnea); H/O bariatric surgery; Steatosis of liver; Bipolar affective disorder, remission status unspecified (HCC); Obesity (BMI 30-39.9)Start: 11-11-2021 End: 75-01-4823Txfnuywtmeutf examination donePacc VirtualPre AnesthesiaStart: 04-15-6498phghghkrapDdhpkub Babiuch MD Work Phone: OphthalmologyComment on above:PaperworkStart: 02-10-4186Vncyusvfy encounterMeenakshi Obrien MD Work Phone: OphthalmologyComment on above:Schedule SurgeryStart: 10-02-2021 End: 70-01-7303Zzneeqx encounter procedureMeenakshi Obrien MD Work Phone: OphthalmologyComment on above:Monocular esotropia, left eye (Primary Dx); DiplopiaStart: 06-17-2021 End: 10-94-5641lvpasythbpExoinem Windnagel Other [employer] Other Start: 63-73-4071Xqqiocsui encounterFeliclaura Duboislibertyjenniffer [facility] ClinicStart: 02-24-2021(Procedure) Shweta Rashid [facility] Surgery CenterStart: 02-24-2021 End: 22-55-0323imokbfrhulOafpib Zaky Other [employer] [employer] Other Start: 01-29-2021 End: 37-28-0996pkhanvqsrhDvpqqq Zaky Other [employer] Other Start: 64-37-0172Zvmvvf outpatient visit 25 minutes Brandon ZakyFPG Pain ManagementStart: 93-06-4915Apqvku outpatient visit 25 minutesShnicolettef ChrisFPG Pain ManagementStart: 12-09-2020(Procedure) ShortBrandon [facility] Surgery CenterStart: 10-24-7418Athhax outpatient visit 25 minutesBrandon [facility] Surgery CenterStart: 09-28-2018 End: 36-81-3315Bzhfezq encounter procedureBETTRAULITO I [facility] Start: 09-25-2018 End: 08-45-0000Mdvlguq encounter procedureJACKELYN Godfrey [facility] Start: 08-02-2018 End: 47-04-1441Fimqarswrs and management of inpatientMyrtue Medical Centertart: 07-22-2018 End: 69-20-1470Ttbkfgp [facility] Start: 07-21-2018 End: 36-38-1578Avnwari [facility] Start: 07-19-2018 End: 32-38-0900Umobwim encounter procedureHONORHEALTH SCOTTSDALE SHEA MEDICAL CENTERJANICE Godfrey [facility] Start: 06-27-2018 End: 88-62-7584Hytrkjd encounter procedureLARAMIE Hannah [facility] Start: 06-12-2018 End: 34-74-9880Yypdmiq encounter [facility] Hannah [facility] Start: 05-18-2018 End: 98-64-2927Mdfhmll encounter procedurePRITI Patel [facility] Start: 04-07-2018 End: 20-96-9433Hyzupmzdw department patient visitHONORHEALTH SCOTTSDALE SHEA MEDICAL CENTERJANICE Godfrey [facility] Hospitaltart: 02-02-2018 End: 59-55-1928Duwnvef encounter [facility] Start: 02-02-2018 End: 88-69-7137Whtyuya encounter [facility] Start: 01-16-2018 End: 76-11-4354Lvcilfp encounter [facility] Start: 01-11-2018 End: 02-95-9687Prjtlyn [facility]SBed[facility] Start: 01-09-2018 End: 00-49-9424Kyrhocg encounter procedureSBedford Regional Medical Center Start: 01-02-2018 End: 05-46-2970Ylonjeh encounter [facility] Start: 12-16-2017 End: 99-58-8852Ekuxxyd encounter [facility] Start: 12-06-2017 End: 77-35-5950Rpitgof encounter [facility] Procedures DateProcedureProcedure DetailPerforming ClinicianStart: 29-02-4574Xc abdomen & pelvis w/contrast materialChaugust Albrecht MD Work Phone: Start: 33-24-9722Wmvee dip stick/tablet rgnt auto w/o microscopyChaugust Albrecht MD Work Phone: Start: 09-17-2024 End: 46-90-5689Gjgrq metabolic panel calcium totalChaugust Albrecht MD Work Phone: Start: 55-64-9873Hkhwvkg function panelChaugust Albrecht MD Work Phone: Start: 20-56-9765Lbnrc metabolic panel calcium total Chris Dimas MD Work Phone: Start: 93-75-9407Gxpczek of subtotal thyroidectomyJocharity Mayra Start: 52-72-5024NtwavukxplmSzkwdcr Mouchli Start: 41-67-5897VpmbusmjddmiexcczyttaghsjjCvrlsfq Mouchli Start: 07-17-2022H/O: surgeryHistory of parotidectomy Brandon Juares DO Work Phone: start: 80-36-9711Ubkph chest X-rayNP-C Abdullahi Coronado Work Phone: Start: 70-09-7447Aezdy chest X-rayNP-C Abdullahi Coronado Work Phone: Start: 35-95-9291Dtjdi chest X-rayNP-C Abdullahi Sola Work Phone: Start: 51-62-0689AFNMEWOONGIS RINEStart: 09-28-2018 Continuous pulse oximetryGERRI RINEStart: 02-35-9723LOVDVTJRI DEEP BREATHING AND COUGHINGGERRI RINEStart: 60-51-9397ZNCLGFMD OXYGEN THERAPY PROTOCOLGERRI RINE Start: 93-28-0301BYYLGD PHYSICIAN (SPECIFY)JACKELYN RINEStart: 97-67-5365IJVBDKA COMMUNICATIONGERRI RINEStart: 78-63-8711EOUZS SIGNSGERRI RINEStart: 09-28-2018 DISCHARGE PATIENTGERRI RINEStart: 64-23-9834Xvauh iv surg pathology gross&microscopic examGERRI RINEStart: 48-37-7706Vveio test visual color cmprsn methsGERRI RINEStart: 86-80-2571JMMEKG PERIPHERAL IVGERRI RINE Start: 10-43-0855Io abdominal real time w/image limitedGERRI RINEStart: 53-06-5125ZJHATHCRH PATIENTGERRI RINEStart: 30-39-4896BJHLNADS OXYGEN THERAPY PROTOCOLGERRI RINEStart: 54-42-8817Whhlh nonstress testGERRI RINEStart: 81-31-4746Ritfd iv surg pathology gross&microscopic examGERRI RINEStart: 68-44-7139BKJOAJXL OXYGEN THERAPY PROTOCOLGERRI RINEStart: 66-81-0284Yayfy count complete automatedGERRI RINEStart: 34-96-3550Nckylwlioviwc metabolic panelGERRI RINEStart: 16-68-2726Mrcpk iv surg pathology gross&microscopic examGERRI RINE Start: 05-39-8138TFQJBZIA PATIENTGERRI RINEStart: 56-34-5426RTEHQXRT REMOVAL JACKELYN RINEStart: 31-72-9936KVCOYVFGC DEEP BREATHING AND COUGHINGGERRI RINEStart: 40-42-5842RLTI CODEGERRI RINEStart: 26-27-7203MZEYONVA OXYGEN THERAPY PROTOCOL JACKELYN RINEStart: 28-77-7500HYWGVC AND OUTPUTGERRI RINEStart: 09-79-3660QCJYSL PHYSICIAN (SPECIFY)JACKELYN RINEStart: 05-21-6208CJZZX INTERMITTENT PNEUMATIC COMPRESSION DEVICEGERRI RINEStart: 97-42-4180WVSCRBJK CATHGERRI RINEStart: 07-83-0392UAPAI SIGNSGERRI RINEStart: 33-31-4632XKBJU CAREGERRI RINEStart: 89-23-5523Agzhwpz quantitative blood xcpt reagent stripGERRI RINEStart: 24-82-3299BQSN GENERALGERRI RINEStart: 11-48-1834RDXTDRP STATUS (DIRECT)JACKELYN RINEStart: 97-57-8381Wzxxs nonstress testGERRI RINEStart: 71-81-3289Qvdrz of blood/uric acidGERRI RINEStart: 12-18-0104Zlymg count complete automatedGERRI RINEStart: 92-54-4391Wpnmqdbgolkzs metabolic panelGERRI RINEStart: 08-02-2018 Lactate dehydrogenase ldhGERRI RINEStart: 81-41-8404BEUT AND SCREENGERRI RINE Start: 97-18-5795ONJRY INTERMITTENT PNEUMATIC COMPRESSION DEVICEGERRI RINEStart: 45-24-2487HZPCTT JUDGE CATHETERGERRI RINEStart: 21-03-8658IXZLIT PERIPHERAL IV JACKELYN RINEStart: 28-90-4112FMSRAJ AND OUTPUTGERRI RINEStart: 43-78-6511BYBESJQ COMMUNICATIONGERRI RINEStart: 70-10-0237WLIZLC INFORMED CONSENTGERRI RINEStart: 86-82-1878Yihz screen class list aGERRI RINEStart: 68-55-1611Zifwtrqscr microscopic onlyGERRI RINEStart: 43-04-5623Miqkt dip stick/tablet rgnt auto w/o microscopyGERRI RINEStart: 06-71-3813HNBGZL HEART TONESGERRI RINEStart: 91-65-3536JJIQYCVXRQT -MONITORINGGERRI RINEStart: 16-79-8540Dfjo bld gluc mntr dev cleared fda spec home useGERRI RINEStart: 21-64-4851WHBJWLA HEART TONESGERRI RINEStart: 43-11-6147CRFNLE PHYSICIAN (SPECIFY)JACKELYN RINEStart: 24-33-6759SCGAV SIGNSGERRI RINEStart: 18-67-2106Knwxmeo bacterial quanttative colony count urineGERRI RINEStart: 13-36-9978Gnkoa of blood/uric acidGERRI RINE Start: 75-32-8170Uwdem count complete auto&auto difrntl wbcGERRI RINEStart: 83-17-6334Nqsifdpsjkfgg metabolic panelGERRI RINEStart: 69-86-5547Ydlttfntmi other sourceGERRI RINEStart: 70-56-9596Baozrvu total xcpt refractometry urine JACKELYN RINEStart: 57-74-5507EQZEAHAIB PATIENTGERRI RINEStart: 77-40-0500Douwj count complete auto&auto difrntl wbcGERRI RINEStart: 39-19-0720Ejhjlazqapqpm metabolic panelGERRI RINEStart: 67-37-1182PCUTBZ PERIPHERAL IVGERRI RINEStart: 06-11-4109AGWRQN HEART TONESGERRI RINEStart: 63-15-0527NCZVIPBESKN -MONITORINGGERRI RINEStart: 93-88-8472XZJS CLEAR LIQUIDGERRI RINEStart: 72-84-5932Xdolf nonstress testGERRI RINEStart: 19-50-3785FBWE CODEGERRI RINE Start: 74-29-0094Fdvx bld gluc mntr dev cleared fda spec home useGERRI RINE Start: 62-59-4516NSRPQLW HEART TONESGERRI RINEStart: 15-21-1729CHYESC PHYSICIAN (SPECIFY)JACKELYN RINEStart: 28-94-3896QQBHGON STATUS (DIRECT)JACKELYN RINE Start: 04-07-8721QFJHS SIGNSGERRI RINEStart: 65-23-7851Vxroumt bacterial quanttative colony count urineGERRI RINEStart: 71-49-3700Rmjjlqoubt microscopic onlyGERRI RINEStart: 69-66-7673Pajdd dip stick/tablet rgnt auto w/o microscopy JACKELYN RINEStart: 06-68-9884DRNJGBRYP PATIENTGERRI RINEStart: 07-64-6934Ld preg uterus real time w/image dcmtn transvagGERRI RINEStart: 55-86-3369Picof of blood/uric acidGERRI RINEStart: 43-39-5464Zvqiq count complete auto&auto difrntl wbcGERRI RINEStart: 91-47-6511Fszlxbxuaszib metabolic panelGERRI RINEStart: 48-27-7248Gvauedhqae activityGERRI RINEStart: 42-19-6373Utennhyrepz timeGERRI RINEStart: 46-05-4942Ndjlgyvzwgwhvb time partial plasma/whole bloodGERRI RINE Start: 93-47-1692Aukvf biophysical profile w/o non-stress testingGERRI RINE Start: 03-45-9243BIBBKJ HEART TONESGERRI RINEStart: 41-14-4268AEXZVFSIAZN -MONITORINGGERRI RINEStart: 83-67-9570PNQN NPO, NOWGERRI RINEStart: 07-19-2018 FULL CODEGERRI RINEStart: 86-20-9798QYUTJFZ HEART TONESGERRI RINEStart: 43-76-3011ITLIGH PHYSICIAN (SPECIFY)JACKELYN RINEStart: 25-81-4595ERECL SIGNSGERRI RINEStart: 90-77-9151Zukdiqk bacterial quanttative colony count urineGERRI RINE Start: 98-88-4676Dfgpthq total xcpt refractometry urineGERRI RINEStart: 00-44-5572Lrhodiszvl microscopic onlyGERRI RINEStart: 39-08-7658Hmsun dip stick/tablet rgnt auto w/o microscopyGERRI RINEStart: 22-89-7365Nove bld gluc mntr dev cleared fda spec home useGERRI RINEStart: 84-76-9229Jifdbhz tolerance test gtt 3 specimensGERRI RINEStart: 51-02-9389Vlbzkei bacterial quanttative colony count urineGERRI RINEStart: 22-79-9929DEZHXCSNG PATIENTGERRI RINEStart: 20-25-5066HDVI GENERALGERRI RINEStart: 24-00-4438Gu preg uterus > 1st trimester abdl ea gestatioGERRI RINEStart: 45-50-1852Tu preg uterus after 1st trimest 1 gestationGERRI RINEStart: 42-23-0484Tj preg uterus real time w/image dcmtn transvagGERRI RINEStart: 74-88-8939Bqxbo count complete auto&auto difrntl wbc JACKELYN RINEStart: 11-40-5215Hgsqhaikduwld metabolic panelGERRI RINEStart: 65-23-1470Wdakh dip stick/tablet reagent auto microscopyGERRI RINEStart: 93-89-0821WKDILXYXX PATIENTGERRI RINEStart: 91-28-9773Pw preg uterus > 1st trimester abdl ea gestatioGERRI RINEStart: 26-56-0148Qh preg uterus after 1st trimest 02/21 gestationGERRI RINEStart: 99-80-9831Kr preg uterus real time w/image dcmtn transvagGERRI RINEStart: 63-60-0466Gfrhjrwocz microscopic only JACKELYN RINEStart: 82-04-1320Fspcx dip stick/tablet rgnt auto w/o microscopyGERRI RINEStart: 78-27-9487KGGFNZ HEART TONESGERRI RINEStart: 05-18-2018 CONTRACTION -MONITORINGGERRI RINEStart: 04-66-7196TVGE GENERALGERRI RINEStart: 86-13-0398VFMK CODEGERRI RINEStart: 16-97-5785Smpv bld gluc mntr dev cleared fda spec home useGERRI RINEStart: 55-42-0423LTOVUT PHYSICIAN (SPECIFY)JACKELYN RINE Start: 03-38-3816DCBMW SIGNSGERRI RINEStart: 30-23-2260Cnpgqiizop microscopic onlyGERRI RINEStart: 12-20-9934Uwcrn dip stick/tablet rgnt auto w/o microscopy JACKELYN RINEStart: 63-08-6245FKUOYSEPL TX INTERMITTENTGERRI RINEStart: 04-07-2018 NEBULIZER TX INTERMITTENTGERRI RINEStart: 73-56-8693Fznuilxtqn exam chest 2 viewsGERRI RINEStart: 69-79-4344Tywgu of troponin quantitativeGERRI RINEStart: 78-58-5345Wcyyh count complete auto&auto difrntl wbcGERRI RINEStart: 04-07-2018 Comprehensive metabolic panelGERRI RINEStart: 24-13-8041Gri routine ecg w/least 12 lds w/i&rGERRI RINEStart: 22-88-9602FIWQUJIG PROFILE IGERRI RINEStart: 08-85-5718JCZYRVED TYPE AND SCREENGERRI RINEStart: 87-45-6023Cadymuwulx glycosylated n5yUDTRK RINEStart: 39-38-0507HNGVSGDVP C ANTIBODYGERRI RINEStart: 89-61-2532XGW SCREENGERRI RINEStart: 02-02-2018C.TRACHOMATIS N.GONORRHOEAE DNA, URINEGERRI RINEStart: 55-65-6322QTKAH CULTURE CLEAN CATCHGERRI RINEStart: 56-67-2137GJGPR DRUG SCREEN, COMPREHENSIVEGERRI RINEStart: 01-16-2018 Gonadotropin chorionic quantitativeGERRI RINEStart: 32-75-1394GSESXPBNXTBITZRAS RINEStart: 58-55-0988Cqrgdidlgwlo chorionic quantitativeGERRI RINEStart: 12-72-2562Tjgkatyuicfr chorionic quantitativeGERRI RINEStart: 01-02-2018 PROGESTERONEGERRI RINEStart: 75-95-2226AKQFZXPWUUOYHY RINEStart: 12-06-2017 ESTRADIOLGERRI RINEStart: 00-88-7377Ubexcopmvtz observation [Identifier] in Cervix by Cyto Emerson Juares DO Work Phone: appendectomyJodi Mayra Cesarean sectionJodi Mayra CholecystectomyJodi Mayra Gastric sleeveJodi Mayra History of thyroidectomyHistory of thyroidectomyJodi Mayra ParotidectomyJodi Mayra [phone]-XdP-2, Influenza & RSV (PCR)[employer]OTHERM[employer]ANT MANAGER-C Abdullahi Coronado Work Phone: [phone]-CoW-2, Influenza & RSV (PCR)[employer]OTHER[employer] PLANT MANAGER-C Abdullahi Coronado Work Phone: [phone]-WoD-2, Influenza & RSV (PCR)GEOTHER[employer] PLANT MANAGER-Jase Coronado Work Phone: Plan of Treatment DateCare ActivityDetailAuthorStart: 08-16-4336Yqphsaboh vaccinationInfluenza Vaccine (#1)[facility] HealthcareStart: 10-02-2024 End: 62-13-5790Nqwdnco encounter xkwaqmawe55/12/2025 9:00 AM EDT Office Visit [facility] [address] [address] Luz Thapa [employer]OTHERM[employer] PLANT MANAGER [address] [place] [address] [facility] OBStart: 85-52-9133Oteaszrdi vaccinationBon Samaritan HospitalStart: 92-88-2588Vcbip panelLipidsSpotsylvania Regional Medical CenterStart: 98-73-2705Lpqyuepuj for malignant neoplasm of breastNOHI HealthcareStart: 02-08-2024 End: 38-90-1101Unigynl encounter pyqkuqwbg17/18/2024 2:30 PM EST Office Visit [facility] [address] [place] [id number] Brandon Juares, DO [address] [place] [address] [facility] CONTRERASYStart: 01-23-2024 End: 00-52-891095930791-nqyhsaerzepfbp D3 [Mass/volume] in Serum or PlasmaVitamin D 25 hydroxy Total Lab Routine Status post partial thyroidectomy (CMS/HCC) Expected: 01/23/2024 (Approximate), Expires: 11/08/2024N[facility] HealthcareComment on above: Expected: 01/23/2024 (Approximate), Expires: 11/08/2024Start: 01-23-2024 End: 74-70-9848Ncayrmo [Mass/volume] in Serum or PlasmaCalcium Lab Routine Status post partial thyroidectomy (CMS/HCC) Expected: 01/23/2024 (Approximate), Expires: 11/08/2024N[facility] HealthcareComment on above:Expected: 01/23/2024 (Approximate), Expires: 11/08/2024Start: 01-23-2024 End: 63-44-8129Uvicpmnmyq.intact [Mass/volume] in Serum or PlasmaPTH, intact Lab Routine Status post partial thyroidectomy (CMS/HCC) Expected: 01/23/2024 (Approximate), Expires: 11/08/2024N[facility] HealthcareComment on above:Expected: 01/23/2024 (Approximate), Expires: 11/08/2024Start: 01-23-2024 End: 28-43-2080Npowzsonnhx [Units/volume] in Serum or PlasmaNOMS Healthcare Work Phone: comment on above:Expected: 01/23/2024 (Approximate), Expires: 11/08/2024Start: 01-23-2024 End: 27-01-0046Dzuszavorhandbgg (T3) [Mass/volume] in Serum or PlasmaT3 Lab Routine Status post partial thyroidectomy (CMS/HCC) Expected: 01/23/2024 (Approximate), Expires: 11/08/2024N[facility] HealthcareComment on above:Expected: 01/23/2024 (Approximate), Expires: 11/08/2024Start: 11-09-2023 End: 38-53-7292Gauvvgr encounter procedureNOMS ENT SANDUSKYComment on above: ArrivedStart: 10-24-2023 End: 552026-htzzybfhgivhpo D3 [Mass/volume] in Serum or PlasmaVitamin D 25 hydroxy Total Lab Routine Thyroid mass (CMS/HCC) Expected: 10/24/2023 (Approximate), Expires: 10/11/2024N[facility] HealthcareComment on above:Expected: 10/24/2023 (Approximate), Expires: 10/11/2024Start: 10-24-2023 End: 82-45-7871Vwsqnjn [Mass/volume] in Serum or PlasmaCalcium Lab Routine Thyroid mass (CMS/HCC) Expected: 10/24/2023 (Approximate), Expires: 10/11/2024 [facility] HealthcareComment on above:Expected: 10/24/2023 (Approximate), Expires: 10/11/2024Start: 10-24-2023 End: 63-62-8074Cdklzfisdo.intact [Mass/volume] in Serum or PlasmaPTH, intact Lab Routine Thyroid mass (CMS/HCC) Expected: 10/24/2023 (Approximate), Expires: 10/11/2024N[facility] HealthcareComment on above:Expected: 10/24/2023 (Approximate), Expires: 10/11/2024Start: 10-24-2023 End: 89-19-4029Fkfglfecmym [Units/volume] in Serum or PlasmaNOHI Healthcare Work Phone: comment on above:Expected: 10/24/2023 (Approximate), Expires: 10/11/2024Start: 10-24-2023 End: 29-66-4386Hicvifmvoetoxioq (T3) [Mass/volume] in Serum or PlasmaT3 Lab Routine Thyroid mass (CMS/HCC) Expected: 10/24/2023 (Approximate), Expires: 10/11/2024NOHI HealthcareComment on above:Expected: 10/24/2023 (Approximate), Expires: 10/11/2024Start: 59-52-1796CJXVL-19 Vaccine ( season)COVID- 19 Vaccine ( season)[facility] CenterStart: 28-27-6148HCEFV-19 Vaccine ( season)COVID-19 Vaccine ( season)[facility] CenterStart: 68-65-0480Vzwbjsyqz vaccinationInfluenza Vaccine (#1)[facility] HealthcareStart: 10-12-2023 End: 83-25-3078Tdvnoyl encounter kdkxmbaqk41/21/2024 3:15 PM EDT Office Visit [facility] [address] [place] [address] Brandon Juares W, DO [address] [place] [address] ArrivedNOMS ENT SANDUSKYComment on above:ArrivedStart: 35-03-6115Gyvrc chemistryCleveland Clinic Hillcrest Hospitaltart: 12-28-2021 End: 98-48-0420TsvanrckkCleveland Clinic Hillcrest Hospitaltart: 97-38-5607Jhyjsdfha culture of sputumCleveland Clinic Hillcrest Hospitaltart: 27-68-3334Jcmirezv admissionCleveland Clinic Hillcrest Hospitaltart: 70-33-1481ApokcxpnrCleveland Clinic Hillcrest Hospitaltart: 19-74-3967Fayexoem admissionCleveland Clinic Hillcrest Hospitaltart: 23-42-3539Sfoph chest X-rayXR chest 1V portableCleveland Clinic Hillcrest Hospitaltart: 82-53-4645OL Chest Single viewCleveland Clinic Hillcrest Hospitaltart: 25-73-1823Vvaugurde vaccinationINFLUENZA (#1)[facility]: 84-95-9723LQHMCLSYEO ASSESSMENTDEPRESSION ASSESSMENTMercy Memorial Hospitaltart: 53-38-0064QIDQA-19 VACCINE (3 - Booster for Pfizer series)COVID-19 VACCINE (3 - Booster for Pfizer series)[facility]: 77-19-5226Ckqajqvkp for malignant neoplasm of cervixNOMS HealthcareStart: 24-49-0246UHC TESTINGHPV TESTINGMercy Memorial Hospitaltart: 91-40-7035Docuiubat for malignant neoplasm of cervixNOMS HealthcareStart: 11-05-6054TSG TESTINGPAP TESTINGMercy Memorial Hospital Start: 93-49-2524DKqV/Tdap/Td vaccine (1 - Tdap)DTaP/Tdap/Td vaccine (1 - Tdap) [facility]: 61-47-9203Hvlgcglfe B vaccine (1 of 3 - 19+ 3- dose series)Hepatitis B vaccine (1 of 3 - 19+ 3-dose series)[facility]: 83-51-0682Reaqc microalbumin profileDTAP,TDAP,TD (1 - Tdap) [facility]: 97-51-4409ZRBPXI PCP TEAM CHRONIC DISEASE VISITANNUAL PCP TEAM CHRONIC DISEASE VISITMercy Memorial Hospitaltart: 44-56-6891XLSOJGKOJ C SCREENINGHEPATITIS C SCREENINGMercy Memorial Hospitaltart: 33-32-6876XOF SCREENINGHIV SCREENINGMercy Memorial Hospitaltart: 24-55-7216OHPXDZUIMPAADPZYFWKPLqbjxffta Clinic Start: 09-97-3053Wymokpqmx vaccine (1 of 2 - 13+ 2-dose series)Varicella vaccine (1 of 2 - 13+ 2-dose series)[facility]: 60-46-7630Qjkth depression screening assessmentDEPRESSION SCREENINGMercy Memorial Hospitaltart: 55-97-2503Cxpdrwysli ScreenDepression ScreenBon Samaritan HospitalStart: 06-75-4627CICRPKQKAHMQ (1 - PCV)PNEUMOCOCCAL (1 - PCV)[facility]: 10-93-1373FCJZM-19 VACCINE (#1)COVID-19 VACCINE (#1)[facility]: 97-21-1246JWDWEGVTM B (1 of 3 - 3-dose series)HEPATITIS B (1 of 3 - 3-dose series)[facility] End: 78-81-9174Hvbp and TIBCBon Samaritan HospitalComment on above:One Time for 1 Occurrences starting 06/11/2024 until 06/11/2024Patient EducationViral Syndrome (DC)[facility] Work Phone: Patient referralAultman Orrville [facility] Work Phone: [facility] Immunizations Immunization DateImmunizationNotesCare IxozcqxmFtczjlfq92-84-1494XAVCQ-18 mRNA, Comirnaty (Pfizer)JENNIFER-Jase Coronado Work Phone: [facility]01-20-2021COVID-19 mRNA, Comirnaty (Pfizer)ERAN Coronado Work Phone: [facility] Payers DatePayer CategoryPayerPolicy [id number]-[id number] Health Insurance [id number] Health Insurance [id number] [id number] 2020Medicaid [place] MEDICAID [id number] 2019-[facility] [phone] [address] [place] [address] Medicaid [id number] [id number] 2.0.1.486514.3.57[id number] 2.840.1.970927.3.57[id number] 2.0.1.988432.3.579.2.76[id number] 2.840.1.507147.3.579.[id number] 2.840.1.959161.3.579.[id number] 2.840.1.225525.3.57[id number] 2.840.1.021981.3.579.2.76229-86-7987Ewuxdyg24883733 2.16840.1.371651.3.579.2.03421-69-8252Xkuvvwf73870270 2.16840.1.207434.3.579.2.85572-01-9120Nnucdtf29116649 2.840.1.346648.3.579.2.27959-63-6407Dsocwdx40739403 2.16.840.1.563937.3.579.2.02146-35-4635Mypqugq20657126 2.16840.1.693623.3.579.2.03420-96-3036Sudrqqh46700837 2.16840.1.564039.3.579.2.60715-35-5145Jikqsfh11619899 2.840.1.666092.3.579.2.94518-40-2687Lxvkinf29860418 2.16840.1.117972.3.579.2.58483-83-7338Jqkyend58020196 2.0.1.714297.3.579.2.67568-83-1787Dcqzdcn54783599 2..1.406256.3.579.2.87324-04-7730Rivxtrm36154054 2..1.627448.3.579.2.23334-33-8990Ftgoynm7821527 2..1.208799.3.579.2.07872-02-9718Mkzllxf34394823 2..1.697344.3.579.2.43290-99-7384Mnihidz13332497 2..1.000512.3.579.2.41079-71-8175Ippdmld15712929 2..1.468430.3.579.2.93231-74-5984Pswwgtc78130002 2..1.712525.3.579.2.15238-34-1322Vhqgxtj07031249 2.840.1.786178.3.579.2.00169-03-4639Gaqweke79792603 2.0.1.340577.3.579.2.89209-07-9591Gwimivo20372127 2.16.840.1.441343.3.579.2.97757-10-6156Ngqiwgm11850043 2.840.1.940685.3.579.2.38678-89-0645Qvctgak41381032 2.840.1.419475.3.579.2.94252-40-1605Hwvhwec11667028 2.840.1.650524.3.579.2.24978-81-2661Dstagtl53237104 2.0.1.012706.3.579.2.07524-57-7863Pyojphy55872873 2.840.1.390710.3.579.2.02685-13-1562Tsizssq74729446 2.840.1.960780.3.579.2.37703-68-4431Xwlaqyd67742844 2.840.1.622894.3.579.2.37472-33-5340Zcttolm99837461 2.0.1.306382.3.579.2.08161-29-4769Xlkleek44759763 2.840.1.636681.3.579.2.06589-48-0601Pmgeper96508749 2.840.1.627344.3.579.2.90176-61-9592Hckcjmf24400256 2.840.1.754260.3.579.2.54666-87-0975Ueuouse68141739 2.840.1.912560.3.579.2.03114-86-6677Auugqve71680239 2.840.1.599334.3.579.2.13260-28-8097Fpfnmjc9498735 2.840.1.945931.3.579.2.145452-06-5473Gyleild8026570 2.16.840.1.683986.3.579.2.782264-66-0866Xrmwhov2908340 2.16.840.1.042326.3.579.2.442317-94-6416Pnndlvw5265366 2.16840.1.557576.3.579.2.899494-29-5332Yashvyq3642934 2.16840.1.102433.3.579.2.164893-84-7920Puipyan0326828 2.840.1.727463.3.579.2.443384-29-7642Brylzgv095759 2..1.867066.3.579.2.111874-17-4802Bpgejko85907947 2.0.1.380437.3.579.2.38199-16-0935Wptbbhl53558181 2.840.1.039810.3.579.2.54284-90-7458Bduhvuw31778216 2.0.1.746365.3.579.2.52477-12-4785Mvenkga29831946 2..1.591642.3.579.2.67018-22-8195Rdpudcc82646999 2.0.1.208578.3.579.2.60306-55-9237Yttsajy39542094 2.0.1.427582.3.579.2.80109-21-9991Qxtostf85812302 2.16840.1.677835.3.579.2.71151-50-0037Wdsepfv59443891 2.16840.1.055706.3.579.2.94609-16-0374Meirtth15840106 2.16.840.1.844029.3.579.2.33889-46-7501Balxypp78512170 2.16.840.1.089895.3.579.2.32430-21-3648Tjproxd82418713 2.16.840.1.907373.3.579.2.72883-87-9878Hlagtes07754684 2.16.840.1.003677.3.579.2.25719-45-1552Bthrqrn25598019 2.16.840.1.603384.3.579.2.75994-32-8351Iyfbjbp068982957148 2.16.840.1.566491.19 Ntzqyvn365194460 39907247-lf76-8223-4erb-i8t6o0742681Umkmkqx70687501 2.840.1.711180.3.579.2.982Wolhyrf78399539 2.840.1.409605.3.579.2.531 Ixfgbgc19822639 2.840.1.011302.3.579.2.531 Social History DateTypeDetailFacilityUnknown if ever smokedNost. [facility] hospital [facility] Other Start: 10-12-2023 End: 50-42-3871Rjz [facility]: 03-05-2015 End: 36-12-8425Gixyemw smoking status NHISNever smoked tobaccoMercy Memorial Hospital Start: 03-05-2015 End: 70-78-4266Fskebcm use and exposureSmokeless tobacco non-userMercy Memorial Hospitaltart: 10-02-2021 End: 17-29-8830Cvoabhk intakeLifetime non-drinker (finding)[facility] Start: 23-25-4202Tpz [facility]igned At [facility] 09-18-2021 End: 88-13-9250Nefavkzo to SARS-CoV-2 (event)Not sureMercy Memorial Hospital Work Phone: Tobacco smoking statusNeverSt. Mary'S [facility] BellevueTobaLicking Memorial HospitalComment on above:denies Tobacco smoking statusMercy Health St. Joseph Warren Hospitaltart: 10-12-2023 End: 84-16-6904Crfakvnue beverage intakeEx-drinker (finding)[facility] Start: 10-12-2023 End: 56-41-1937Kstncnv of Social functionNOMS HealthcareStart: 02-43-2140Nqcfapa Comment2 cans diet pepsiNOMS HealthcareStart: 74-85-6951Miz assigned at Not on fileNOHI HealthcareStart: 05-07-2021 End: 88-60-2500Tnocaduwg beverage intakeCurrent non-drinker of alcohol (finding) [facility] HealthStart: 94-00-6001Sducogd CommentrareBon [facility] HealthStart: 18-61-4597NyhJjdcyb (finding)[facility] HealthHow often to you have a drink containing alcohol?NeverBon EmpathicaNEGATED: Highlighted rowStart: NINFHistory of tobacco usePassive smokerMercy Memorial Hospital Medical Equipment Procedure CodeEquipment CodeEquipment Original TextEquipment IdentifierDatesPen [place] 31G X 5 MMStart: 06-58-4230Mpj-O-Yomi Ligating [id number]_letByjzg: 09-28-2018 Goals DatePatient GoalDesired Activity/State Functional Status JrpvFzsmvnelkiAhmcuvCwhenpyd71-08-0725Hxbrodfwjo StatusN/[facility] Yxeaey59-38-9372Myddhieejg StatusN/[facility]07-11-2024Functional StatusN/[facility] 65-00-3232Tutkhnrslt StatusN/[facility]11-07-2022Functional statusPatient at [facility]Dun[facility] Work Phone: [phone]) 321-84640385553-02-5590Etgejuwdhf statusPatient at Baseline [facility] Work Phone: [facility] HealthBon [facility] Mental Status SsvkUoulexijqoYurfadKbpgukxt78-59-3266Hyubmwkoz functionCognitive Status Patient at [facility] Work Phone: 1(593) 614-92240348401-82-4668Cviydgyia functionCognitive Status Patient at [facility] Work Phone: Clinical Notes 11-13-2020 to 09-17-2024 Note Date & QfslDdlvXlpabwar07-41-0350 Hospital Discharge instructions* Discharge Instructions* Vida Albrecht MD - 09/17/2024 1:23 PM EDT Your blood and urine studies are unremarkable, we discussed getting CT abdomen pelvis regardless and this was ordered, radiology port indicating no acute surgical other significant findings. We did discuss fatty liver and some vertebral issues incidentally noted. At this time I feel we can safely discharge home with close outpatient follow-up, stay well-hydrated with water, will prescribe Zofran ODT for any nausea and you can try Bentyl which may help relax any cramping or other discomfort in the abdomen as well, this is a nonopiate medication which may give you some relief. If any symptoms change worsen or other concerns, please return to emergency room for reevaluation. * Attachments The following attachments cannot be sent through Care Everywhere. * Abdominal Pain (Citizen [place]) documented in this encounterBon Samaritan Hospital07-22-2025 Miscellaneous Notes* Telephone Encounter - Luis Felipe Mckenzie - 09/11/2024 1:56 PM EDT scheduled * Telephone Encounter - Melanie Espinoza LPN - 09/11/2024 11:23 AM EDT Referral from Cleo ALVAREZ to Office for Abd./Pelvic pain, NEW patient offer either provider documented in this encounterSaint Joseph Health CenterKtxhjhrmic58-49-4503 Telephone encounter Note* Telephone Encounter - Luis Felipe Mckenzie - 09/11/2024 1:56 PM EDT scheduled [facility] CenterRtcapsxrlz84-39-5949 Telephone encounter Note* Telephone Encounter - Melanie Espinoza LPN - 09/11/2024 11:23 AM EDT Referral from Cleo ALVAREZ to Office for Abd./Pelvic pain, NEW patient offer either provider [facility] CenterQwgbeadgov82-67-0699 NotePatient Education Obstetrics and Gynecology Pelvic Pain, Female Pelvic pain is pain in your lower belly (abdomen), below your belly button and between your hips. The pain may: ??? Start all of a sudden (be acute). ??? Keep coming back (be recurring). ??? Last a long time (become chronic). Pelvic pain that lasts longer than 6 months is called chronic pelvic pain. There are many causes of pelvic pain. Sometimes the cause of pelvic pain is not known. Follow these instructions at home: ??? Take iead-vso-tulesex and prescription medicines only as told by your doctor. ??? Rest as told by your doctor. ??? Do not have sex if it hurts. ??? Keep a journal of your pelvic pain. Write down: ? When the pain started. ? Where the pain is located. ? What seems to make the pain better or worse, such as food or your monthly period (menstrual cycle). ? Any symptoms you have along with the pain. ??? Keep all follow-up visits. Contact a doctor if: ??? Medicine does not help your pain, or your pain comes back. ??? You have new symptoms. ??? You have unusual discharge or bleeding from your vagina. ??? You have a fever or chills. ??? You are having trouble pooping (constipation). ??? You have blood in your pee (urine) or poop (stool). ??? Your pee smells bad. ??? You feel weak or light-headed. Get help right away if: ??? You have sudden pain that is very bad. ??? You have very bad pain and also have any of these symptoms: ? A fever. ? Feeling like you may vomit (nauseous). ? Vomiting. ? Being very sweaty. ??? You faint. These symptoms may be an emergency. Get help right away. Call your local emergency services (911 int [place] ??? Do not wait to see if the symptoms will go away. ??? Do not drive yourself to the hospital. Summary ??? Pelvic pain is pain in your lower belly (abdomen), below your belly button and between your hips. ??? There are many causes of pelvic pain. ??? Keep a journal of your pelvic pain. This information is not intended to replace advice given to you by your health care provider. Make sure you discuss any questions you have with your health care provider. Document Revised: 06/16/2021 Document Reviewed: 06/16/2021 [employer] Patient Education ? 2023 [employer].[facility] 11-09-2023 History of Present illness Narrative* Brandon Juares DO - 11/09/2023 2:30 PM EDT HPI Patient presents today status post right [...] Status post partial thyroidectomy (CMS/HCC) (Primary) Comments: I will see the patient back in 3 months with lab work including PTH calcium and vitamin-D Orders: - TSH; Future - T3; Future - T4; Future - PTH, intact; Future - Calcium; Future - Vitamin D 25 hydroxy Total; Future - TSH - T3 - T4 - PTH, intact - Calcium - Vitamin D 25 hydroxy Total Other hyperparathyroidism (CMS/HCC) Comments: See above documented in this encounterNicole V[place] [address]Rmikaepvjz51-95-7148 History of Present illness Narrative* Brandon Juares DO - 10/12/2023 3:15 PM EDT HPI Patient presents today 1 week postop [...] for this visit: Status post partial thyroidectomy ([facility]) (Primary) Comments: Patient given postoperative wound instructions, I will see her back in 1 month with lab work Thyroid mass ([facility]) Comments: See below Orders: - T4; Future - T3; Future - TSH; Future - PTH, intact; Future - Calcium; Future - Vitamin D 25 hydroxy Total; Future - T4 - T3 - TSH - PTH, intact - Calcium - Vitamin D 25 hydroxy Total Low vitamin D level Comments: High-dose vitamin-D for 3 months. documented in this [facility]07-15-2024 Hospital Discharge instructions Patient Education 09/05/2023 13:52:58 Endoscopy, Care After Procedure [facility] Endoscopy Care After Procedure Please read the instructions outlined below and refer to this sheet in the next few weeks. These discharge instructions provide you with general information on caring for [facility] Your doctor may also give you [...] blood. Document Released: 09/21/2004 Document Re-Released: 08/01/2006 [employer] Patient Information [employer]. 09/05/2023 13:52:53 Hemorrhoids, Cdth-he-Jjuj Hemorrhoids Hemorrhoids are swollen veins that may [...] 3 4 times a day. You may dothis in a bathtub or using a portable sitz bath that fits over the toilet. If told, put ice on the painful area. It may be helpful to use ice between your warm baths. ?Put ice in a plastic bag. ?Place a towel between your skin and the bag. ?Leave the ice on for 20 minutes, 2 3 times a day. General instructions Take wtlu-eiq-pvkhdjy and prescription medicines only as told by [...] provider. Document Revised: 08/19/2021 Document Reviewed: 08/19/2021 [employer] Patient Education 2022 [employer]. 09/05/2023 13:52:50 Colonoscopy, Care After Surgery Salam (CUSTOM) Colonoscopy Care After Surgery Please read the instructions outlined below and refer to this sheet in the next few weeks. These discharge instructions provide you with general information on caring for [facility] Your doctor may also give you [...] Follow Up Care 09/01/2023 14:18:59 With:Vinay INGRAM, Stefan Martinez, TA, [facility] Address: When: Unknown Comments:Call for any problems. The office will reach out in about one week from procedure date. [facility]07-15-2024 NoteProgress Note-Physician Patient: MORRO MALONEY Age: 38 years Sex: Female : 1985 Associated Diagnoses: None Author: Arden Arambula Jr., DO Postoperative Information Postoperative disposition: Postoperative disposition: Home. Optimetrix number: Optimetrix number [id number]. Anesthetic utilized: General. Physical Examination Vital Signs [...] to Ambulatory Surgery Unit, and To home ).[facility] Medical CenterComment on above:Result Comment: Electronically Signed By: Arden Arambula Jr., DO.br\Date and Time Signed: 09/05/23 14:03 [id number] Evaluation + Plan note Extracted from:Title:ANES Post-operative Note - GeneralAuthor:Arden Arambula Jr., DO GDate:09/05/23 Plan Transfer/Discharge: Transfer/Discharge Discharge when meets criteria ( From PACU to Ambulatory Surgery Unit, and To home ). Extracted from:Title:ANES Pre-operative Note - AdultAuthor:Arden Arambula Jr., DO GDate:09/05/23 Plan [place] [employer] Anesthesiologists (ASA) physical status classification: Class II. Anesthetic Preoperative Plan: Anesthesia General. Future Appointments Appointment Date:09/22/2023 10:15:00 AM Scheduled Provider:Stefan Mclean MD [facility] Up Future Scheduled Tests Laboratory* CBC w/ Auto Diff 10/10/23 * CBC w/ Auto Diff 08/08/23 * CBC w/ Auto Diff 08/22/23 * Comprehensive Metabolic Panel 10/10/23 * Ferritin 10/10/23 * Folate Level 10/10/23 * Iron Level 10/10/23 * Iron Percent Saturation 10/10/23 * Transferrin 10/10/23 [facility]07-15-2024 NotePatient Education - Text Endoscopy Care After Procedure Please read the instructions outlined below and refer to this sheet in the next few weeks. These discharge instructions provide you with general information on caring for yourself [facility] Your doctor may also give you [...] Document Re-Released: 08/01/2006 ExitCare? Patient Information ?2009 [employer]. Colonoscopy Care After Surgery Please read the instructions outlined below and refer to this sheet in the next few weeks. These discharge instructions provide you with general information on caring for yourself [facility]. Your doctor may also give you [...] around the opening o (more content not included)...[facility]07-15-2024 NoteColonoscopy Procedure Report Patient: MORRO MALONEY Age: 38 years Sex: Female : 1985 Associated Diagnoses: None Author: Stefan Mclean MD Pre-Procedure Procedure Date 09/05/2023 13:32:00 . Procedure Type: Colonoscopy. Procedure provider Performed by Stefan Mclean MD. Current history and physical Documented on chart. Appendectomy (021924508). Gastric sleeve (1122305756). Cholecystectomy (97492103). delivery (4269043329). Parotidectomy (585947380).. Past Medical History No active or resolved past medical history items have been selected or recorded.. Family History Ulcerative colitis Father Grandparent . Procedure History Appendectomy (270582622). Gastric sleeve (3001390169). Cholecystectomy (46656700). delivery (3942700379). Parotidectomy (354315390).. Colorectal neoplasm risk assessment Average risk. Informed [...] q4hr for wheezing, 18 gram, Refill(s) 5, [facility]/pharmacy #[id number], 161, cm, 10/18/22 14:05:00 EDT, Height/Length Dosing, 105.6, kg, 10/18/22 13:58:00 EDT, Weight Dosing folic acid 1 mg Tab: 1 mg = 1 tab(s), Oral, Daily, # 90 tab(s), Refills(s) 4, Pharmacy: [facility]/pharmacy #[id number], 161, cm, 08/15/23 11:32:00 [...] 3. Normal terminal ileum Images Procedure images: Rec_hd_video___[id number].jpg Rec_hd_video__30_34_[id number].jpg Rec_hd_video___31_53_934.jpg Rec1_hd_video_2023__[id number].jpg . Post-Procedure Complications: none. Estimated blood loss: [...] benefit from capsule endoscopy to assess for anemiaAdena Pike Medical CenterComment on above:Other Comment: Missing Attachment - attachment storage system not supported [id number] Can be viewed in source system Missing Attachment - attachment storage system not supported [id number] Can be viewed in source systemMissing Attachment - attachment storage system not supported [id number] Can be viewed in source systemMissing Attachment - attachment storage system not supported [id number] Can be viewed in source [id number] NoteProgress Note-Physician Patient: MORRO MALONEY Age: 38 [...] q4hr for wheezing, 18 gram, Refill(s) 5, [facility]/pharmacy #[id number], 161, cm, 10/18/22 14:05:00 EDT, Height/Length Dosing, 105.6, kg, 10/18/22 13:58:00 EDT, Weight Dosing folic acid 1 mg Tab: 1 mg = 1 tab(s), Oral, Daily, # 90 tab(s), Refills(s) 4, Pharmacy: [facility]/pharmacy #[id number], 161, cm, 08/15/23 11:32:00 [...] list: All Problems Asthma / SNOMED CT 905633718 / Confirmed Bloating / SNOMED CT 995698011 / Confirmed Cyst of thyroid / SNOMED CT 681239177 / Confirmed Difficulty swallowing / SNOMED CT 53336535 / Confirmed Elevated creatine kinase / SNOMED CT 8834688147 / Confirmed Elevated glucose / SNOMED CT 8704367710 / Confirmed Elevated WBCs / SNOMED CT 344915502 / Confirmed Enlarged thyroid gland / SNOMED CT 4229370 / Confirmed Fatigue / SNOMED CT 318468248 / Confirmed Iron deficiency anemia / SNOMED CT 475072477 / Confirmed Low back pain / SNOMED CT 678516728 / Confirmed Shortness of breath / SNOMED CT 407366067 / Confirmed Spondylosis / SNOMED CT 49048394 / Confirmed Thyroid nodule / SNOMED CT 003830527 / Confirmed Weight gain / SNOMED CT 20402795 / Confirmed Weight loss / SNOMED CT 183687791 / Confirmed Wellness examination / SNOMED CT 545766242 / Confirmed Histories Past Medical History: No active or resolved past medical history items have been selected or recorded. Procedure history: Appendectomy (147110028). Gastric sleeve (2489347632). Cholecystectomy (36438986). delivery (2884163675). Parotidectomy (275375736). Social History Social & Psychosocial Habits Alcohol Comment: denies - 08/03/2023 11:38 Gabby Barry RN 09/01/2023 Risk Assessment: Denies Alcohol Use Substance Abuse Comment: denies - 08/03/2023 11:38 Gabby Barry RN 09/01/2023 Risk Assessment: Denies Substance Abuse [...] Respirations are non-labored. Cardiovascular: Regular rhythm. Plan [place] [employer] Anesthesiologists (ASA) physical status classification: Class II. Anesthetic Preoperative Plan: Anesthesia General.[facility] Comment on above:Result Comment: Electronically Signed By: Arden Arambula Jr., DO\Date and Time Signed: 09/05/23 13:01 [id number] Evaluation + Plan note Future Scheduled Tests Laboratory* CBC w/ Auto Diff 08/22/23 [facility] 06-18-2024 Hospital Discharge instructions Follow Up Care 08/09/2023 09:01:05 With:Jose MAY, Quyen Pozo, ONC Address: [facility] [address] [place] [address] [place] [address]- [phone] When: Unknown Comments:refer to GI to consider endoscopy for iron deficiency anemia.- if none in [place], [facility]- [facility], iron studies, folate in 8wksfollow-up in 8wks with GE[employer]ANT MANAGER [facility]06-17-2024 Evaluation + Plan note Future Scheduled Tests Laboratory* CBC w/ Auto Diff 10/10/23 * CBC w/ Auto Diff 08/08/23 * CBC w/ Auto Diff 08/22/23 * CBC w/ Auto Diff 08/29/23 * Comprehensive Metabolic Panel 10/10/23 * Ferritin 10/10/23 * Folate Level 10/10/23 * Iron Level 10/10/23 * Iron Percent Saturation 10/10/23 * Transferrin 10/10/23 [facility]06-17-2024 Evaluation + Plan note Future Scheduled Tests Laboratory* CBC w/ Auto Diff 10/10/23 * CBC w/ Auto Diff 08/08/23 * CBC w/ Auto Diff 08/22/23 * Comprehensive Metabolic Panel 10/10/23 * Ferritin 10/10/23 * Folate Level 10/10/23 * Iron Level 10/10/23 * Iron Percent Saturation 10/10/23 * Transferrin 10/10/23 [facility] 06-17-2024 Evaluation + Plan note Future Scheduled Tests Laboratory* CBC w/ Auto Diff 08/08/23 * CBC w/ Auto Diff 08/22/23 [facility] 06-12-2024 Hospital Discharge instructions Patient Education 08/03/2023 [...] supplement. Medicines to make heavy menstrual flow photostat operator helper. Surgery or additional testing procedures to determine the cause of your anemia. You may need repeat blood tests to determine whether treatment is working. If the treatment does not seem to be working, you may need more tests. Follow these instructions at home: Medicines Take lymu-mjy-zpfqeir and prescription medicines only as told by [...] to keep your urine pale yellow. Take occz-afy-imeqjis or prescription medicines. Eat foods that are [...] the cause of your iron deficiency. Take gbrs-oje-aytxvqy and prescription medicines only as told by [...] provider. Document Revised: 03/17/2022 Document Reviewed: 03/17/2022 [employer] Patient Education 2022 [employer]. 08/03/2023 14:14:52 Shortness of Breath, Adult Shortness [...] to any changes in your symptoms. Take egpx-ewq-mjckovu and prescription medicines only as told by [...] provider. Document Revised: 09/26/2021 Document Reviewed: 09/26/2021 [employer] Patient Education 2022 [employer]. 08/03/2023 14:14:52 Anemia Anemia Anemia is a [...] spleen. Follow these instructions at home: Take opfk-tpb-uywcypr and prescription medicines only as told by [...] provider. Document Revised: 05/03/2022 Document Reviewed: 05/03/2022 [employer] Patient Education 2022 [employer]. Follow Up Care 08/03/2023 10:47:32 With:José Antonio Benitez Address: [facility] [address] [place] [address] [place] [address]- When:08/06/2023 13:33:53 Comments:Make sure to follow-up with as discussed. Return to the emergency room if your symptoms get worse or any new symptoms. With:Cleo Hernandez Address:Unknown When:Within 3 Day(s) [facility]06-12-2024 Evaluation + Plan noteExtracted from: Title:ED NoteAuthor:Elizabeth Moise M.D. HDate:08/03/23 1. Shortness of breath (R06. 02: Shortness [...] Diagnostic Tests Pending * Path. Review 08/03/23 [facility]2023 Evaluation + Plan note Diagnostic Tests Pending * T3 Free 10/18/22 [facility]11-06-2022 History and physical note Author Nan Brand [facility] December 27, 2021 6:03pmNote Date/TimeNov2021 5:46pm[address] [address] Hospitalist H&P Signed Patient: Morro Maloney MR#: [id number] : 1985 Acct:[id number] Age/Sex: 36 / F Adm Date: 2 Loc: ER Room: Type: [facility] ER Attending Dr: Copies to: MYKEL HawkinsC Nan Brand MD~ HPI DATE OF EXAMINATION: 12/27/21 CHIEF COMPLAINT: Shortness of breath HISTORY OF PRESENT ILLNESS: 36 years old female with underlying history of asthma, not on any therapy, requiring intubation x1 when she was 16, presented with complaints of shortness of breath and severe wheezing with low pulseoximetry. Per patient she has been sick for [...] summer but at this time she was quiteshort of breath. She denied any fevers. She [...] system reviewed Chest x-ray no acute [facility] Vacc[facility] for [facility]-19?: Yes Medical History Anxiety [...] % (Auto) 23.6 % (.) 12/27/21 14:42 [place] % (Auto) 5.7 % (.) 12/27/21 14:42 Eos % (Auto) 1.9 % (.) 12/27/21 14:42 Baso % (Auto) 0.8 % (.) 12/27/21 14:42 Neut # (Auto) 8.6 x10E3/uL (1.8-7.7) H 12/27/21 14:42 Lymph # (Auto) 3.0 x10E3/uL (1.00-4.8) 12/27/21 14:42 [place] # (Auto) 0.7 x10E3/uL (0.0-0.8) 12/27/21 14:42 [...] <Electronically signed by Nan Brand MD> 12/27/21 7657 [facility] Work Phone: 1(816) 926-737210-20-2022 History of Present illness Narrative* Meenakshi Obrien MD - 12/10/2021 11:05 AM EDT ASSESSMENT/PLAN: 1. Monocular esotropia, left eye - ICD9: 378.01, ICD10: H50.012 (primary diagnosis) 2. Diplopia - ICD9: 368.2, ICD10: H53.2 - acute onset left esotropia with diplopia for 6 months - worked up with MRI brain that was normal - POW#1 s/p [facility] - great alignment - rare diplopia. Not [...] 10, 2021 11:05 AM documented in this encounterMer[facility]10-[facility]-2022 Miscellaneous Notes* Telephone Encounter - Enid Tafoya - 11/27/2021 10:43 AM EDT Spoke to patient; relayed message below. Meenakshi Obrien I just heard from the head anesthesiologist that we can proceed with her surgery on Tuesday. Thanks! * Telephone Encounter - Enid Tafoya - 11/27/2021 9:49 AM EDT Morro Maloney [facility] [id number] 11/26/21 Fv 11/30/21 Sx Patient is calling [...] eyes - Proceed with strabismus surgery - [facility]. Consent obtained. - recent asthma exacerbation. Will check with anesthesia. Follow-up in: Surgery documented in this encounterMer[facility]10-06-2022 History of Present illness Narrative* Meenakshi Obrien [...] eyes - Proceed with strabismus surgery - [facility]. Consent obtained. - recent asthma exacerbation. Will [...] 26, 2021 9:16 AM documented in this encounterMercy [facility] Hospital09-29-2022 Progress note Author Jp Barba [facility] November 19, 2021 10:22pmNote Date/TimeSept2021 10:00am[place] [address] Hospitalist Progress Note Signed Patient: Morro Maloney MR#: [id number] : 1985 Acct:[id number] Age/Sex: 36 / F Adm Date: 2 Loc: Room: [address] [place] [address] Type: DIS IN Attending Dr: Jp Barba [...] 4 L nasal cannula with O2 sat 92to 93%. She only uses albuterol inhaler at home, and says that she only needs it 2-3 times per week. This is her first asthma exacerbation this year. She believes the reason she had this acute asthmaexacerbation was due to the high concentration of mold, which she is allergic to. No other acute complaints Per respiratory therapist, she has been refusing her breathing treatments sayingthat she has eitherbeen sleeping, or just does not feel like [...] 0 956 Signed By: <Electronically signed by DO THEE Boyle> 11/19/21 1334 <Electronically signed by Jp Barba DO> 11/19/212221 [facility] Work Phone: 1(210) 248-871709-28-2022 Progress note Author Jp Barba [facility] November 18, 2021 1:57pmNote Date/TimeSeptember 2021 1:50pm[place]ph[place] [address] Hospitalist Progress Note Signed Patient: Morro Maloney MR#: [id number] : 1985 Acct:[id number] Age/Sex: 36 / F Adm Date: 2 Loc: Room: [address] [place] [address] Type: ADM IN Attending Dr: Jp Barba DO Copies to: ~ Date of Service: 11/18/2021 Subjective Subjective Narrative: Patient seen and examined at bedside, overnight story was corroborated this morning. Patient statesshe is already feeling better, less likely from [...] Vial IV-PUSH 11/18/22 10:59 40 mg Q8H YVETET Administration Montelukast Sodium 10 mg 11/18/21 09:00 [...] <Electronically signed by Jp Barba DO> 11/18/21 1357 [facility] Work Phone: 1(532) 658-513909-28-2022 History and physical note Author Andres Espana [facility] November 18, 2021 4:53amNote Date/TimeSeptember 2021 4:53[place] [address] Hospitalist H&P Signed Patient: Morro Maloney MR#: [id number] : 1985 Acct:[id number] Age/Sex: 36 / F Adm Date: 2 Loc: 3T Room: [address] [place] [address] Type: ADM INOo Attending Dr: Andres Mcgee MD Copies to: MD Abdullahi Vallejo NP-C~ HPI DATE OF EXAMINATION: 11/18/21 CHIEF COMPLAINT: [...] urgent care center and she was given Solu-Medrol without much improvement, in the hospital on [...] % (Auto) 16.7 % (.) 11/18/21 02:42 [place] % (Auto) 5.6 % (.) 11/18/21 02:42 Eos % (Auto) 3.1 % (.) 11/18/21 02:42 Baso % (Auto) 0.8 % (.) 11/18/21 02:42 Neut # (Auto) 8.9 x10E3/uL (1.8-7.7) H 11/18/21 02:42 Lymph # (Auto) 2.0 x10E3/uL (1.00-4.8) 11/18/21 02:42 [place] # (Auto) 0.7 x10E3/uL (0.0-0.8) 11/18/21 02:42 [...] <Electronically signed by Andres Mcgee MD> 11/18/21 0453 [facility] Work Phone: 1(966) 865-327009-21-2022 Instructions* Patient Instructions* Homa Mack PA-C - 11/11/2021 11:50 AM EDT PATIENT PREOPERATIVE INSTRUCTIONS Self has scheduled you for your procedure at this surgery center: [place] [facility]: [phone] --[address] [place] [address]. Please read below carefully for your personalized [...] Procedures: - YOU MUST HAVE A RESPONSIBLE CLIENT RELATIONSHIP CONSULTANT TAKE YOU HOME. A UTILITIES SERVICE INVESTIGATOR OR POLYMER SCIENTIST CANNOT BE MADE A RESPONSIBLE CLIENT RELATIONSHIP CONSULTANT. - We recommend that a responsible person [...] Advance Directive, please fax a copy to [phone] or email to for it to be [...] day. Homa Mack PA-C documented in this encounterMercy [facility]09-21-2022 History and physical note * Homa Mack PA-C - 11/11/2021 11:20 AM EDT PREANESTHESIA CONSULT CLINIC TELEHEALTH VISIT Patient has been identified by name and date of : Yes This is a virtual visit using [email or web address] video visit. It require patient-provider interaction for [...] 06/2021 Neuro: No history of TIA's, stroke, MASH FILTER CLOTH CHANGER tumor, impaired sensorium, hemiplegia, paraplegia or quadraplegia. No neurological symptoms or problems. Respiratory: No current cough or dyspnea, or pneumonia in the past 6 weeks.+asthma- last used rescue inhaler 1 week ago +PATRICE- mild per patient and did not require CPAP Cardiovascular: No history of HTN requiring medication, no history of angina, CHF, NE, cardiac surgery or stents. Denies rest pain, gangrene or revascularization/amputation for PVD. No history of cardiovascular symptoms or problems. +hyperlipidemia GI: No history of esophageal varices, recent ascites, or ETOH greater than 2 drinks per day.+h/o GERD mostly with +fatty liver +sleeve gastrectomy 06/2021 : No history of dysuria, frequency or incontinence,, stones or chronic kidney disease SWEATER DESIGNER: Negative for abnormal vaginal bleeding, abnormal vaginal [...] change was found Confirmed by HANNAH PEREZ ([id number]) on 04/10/2018 Impression/Recommendations ASSESSMENT: Hyperlipidemia Assessment: not [...] device. I spent more than 21-40 minutes [id number] with the patient and over half the time was devoted tocounseling and/or coordination of care. This is a virtual visit. It required patient-provider interaction for the medical decision making as documented above. SIGNATURE: Homa Mack PA-C PATIENT NAME: Morro Maloney DATE: November 11, 2021 TIME: 11:10 AM PAGER/CONTACT #: documented in this encounterMercy [facility] Hospital08-15-2022 Miscellaneous Notes* Telephone Encounter - Sajan Dodd - 10/05/2021 3:08 PM EDT Spoke with pt and scheduled Strabismus surgery on 11/30/21. Pt will schedule PACC with her PCP. Blaze Geronimo documented in this encounterMercy [facility] Hospital08-12-2022 Instructions* Patient Instructions* Meenakshi Obrien MD - 10/02/2021 2:44 PM EDT Information for surgery with Dr. Obrien Surgery Scheduling [place] - Tuesday of each month. Adults and children 1 year old and older. No major medical comorbidities (including sleep apnea, obesity, and pacemaker). Main [place] - Second (PM start), (AM start), and (AM start) Tuesday of each month. Surgery coordinator for [facility] [phone]. An alternative number is [phone]. Surgery coordinator at [facility] Blaze Mercadogore [phone]. Adults have to get prior authorization from [...] If their physician is outside of the [facility] system, then please bring a printed copy of their history and physical with on the day of their surgery. Schedule pre-anesthesia testing appointment. Call [phone]. Pre-op measurements. Sometimes we do a pre-op [...] prior to surgery, you can send a [facility] message or you can call Dr. Obrien s office at [phone]. Children get sick a lot! If your [...] home/pick them up from school, etc. Location: [facility] Surgery center is on 2nd floor [facility] - Surgery pre-op waiting areas is M23 Anesthesia. You will meet your anesthesiologist in [...] questions or to examine the patient at [facility], even at night and on the weekends. Dr. Obrien s office number is [phone]. documented in this encounterMercy Memorial Hospital08-12-2022 History of Present illness Narrative* Meenakshi Obrien [...] 02, 2021 2:44 PM documented in this encounterMercy [facility] Hospital12-09-2021 Evaluation note* Encounter Date Diagnosis Assessment Notes Treatment Notes Treatment Clinical Notes Jan, Sacroiliitis (ICD-10 - M46.1) Consider repeat SI joint injection in the future. Jan,umbosacral spondylosis (ICD-10 - M47.817) 35 year old [...] procedure explained to patient; patient verbalizes understanding. Jan,umbar radiculopathy (ICD-10 - M54.16) Patient denies radicular symptoms. Jan,hronic pain (ICD-10 - G89.29) Continue with current treatment plan [facility] Other 10-26-2021 Evaluation note* Encounter Date Diagnosis Assessment Notes Treatment Notes Treatment Clinical Notes Nov, Sacroiliitis (ICD-10 - M46.1) Patient reports 80% relief of pain and increased function to the sacral area. Continue with currenttreatment plan. Nov,umbosacral spondylosis (ICD-10 - M47.817) 35 y/o female [...] I recommend proceeding with a second bilateral lumbarfacet medial branch nerve block. Risks and benefits of procedure explained to patient; patient verbalizes understanding. Nov,umbar radiculopathy (ICD-10 - M54.16) Patient denies radicular symptoms. Nov,hronic pain (ICD-10 - G89.29) Continue with current treatment plan [facility] Other 09-23-2021 Evaluation note* Encounter Date Diagnosis Assessment Notes Treatment Notes Treatment Clinical Notes Oct, Sacroiliitis (ICD-10 - M46.1) Patient reports 80% relief of pain and increased function to the sacral area. Continue with currenttreatment plan. Oct,umbosacral spondylosis (ICD-10 - M47.817) 35 y/o female [...] procedure explained to patient; patient verbalizes understanding. Oct,umbar radiculopathy (ICD-10 - M54.16) Patient denies radicular symptoms. Oct,hronic pain (ICD-10 - G89.29) Continue with current treatment plan [facility] Other Discharge summary Author Jp Barba [facility] November 19, 2021 10:28pmNote Date/TimeSeptember 2021 10:28pm[place] [address] Discharge Summary Signed Patient: Morro Maloney MR#: [id number] : 1985 Acct:[id number] Age/Sex: 36 / F Adm Date: 2 Loc: Room: [address] [place] [address]: Jp Barba DO Copies to: Abdullahi Barba DO~ Providers Date of Admission: 11/18/21 Date of Discharge: 11/19/21 Discharging Provider: Jp Barba Primary Care Provider: Abdullahi Coronado Discharge Diagnosis (1) Acute respiratory failure with hypoxia: (2) Asthma exacerbation: (3) Asthma: Final Diagnosis Final Discharge Diagnosis: As above Summary Hospital Course Hospital course: Miss Maloney is a 36-year-old female who 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 She was requiring oxygen at 3 to 4 L, without that she was desaturating. Despite thisshhannah was continuing to refuse her breathing treatments, [...] this wholeheartedly and said she is feeling fineand breathing better than when she got in [...] I felt bad that she had to workand was going to interfere with her work schedule but I did not feel that was a good enough reason to have an unsafe discharge. After discussion, the patient decided to leave AMA. I gave her a small t aperingdose of p.o. prednisone due to the fact she was on 80 mg Solu-Medrol 3 every 8 hours. She left the hospital on her own accord. Patient left AMA Condition Condition at Discharge: Stable Time Spent with Patient Time spent providing/coordinating discharge services (# min): 45 Diagnostic Studies Completed and Pending Studies Labs on day of discharge: 11/19/21 09:56: PHA Creatinine Clear 93.33, Sodium 136, Potassium 4.5, Chloride 103, Carbon Ipecobz43.0, Anion Gap 15.5 H, BUN 13, Creatinine [...] Air 3.5 11/19/21 11:09 11/19/21 11:09 11/19/21 11:09 11/19/21 11:09 11/19/21 13:25 11/19/21 13:25 11/19/21 11:45 Narrative: General: Awake alert, no acute [...] <Electronically signed by Jp Barba DO> 11/19/212227 [facility] Work Phone: Discharge summary Author Hema Miramontes [facility] December 28, 2021 4:50pmNote Date/TimeNov2021 4:50pm[place] [address] Discharge Summary Signed Patient: Morro Maloney MR#: [id number] : 1985 Acct:[id number] Age/Sex: 36 / F Adm Date: 2 Loc: Room: [address] [place] [address]: Hema Miramontes MD Copies to: MD Abdullahi Lee GEOTHERMAL PLANT MANAGER-C~ Providers Date of Discharge: 12/28/21 Discharging Provider: Hema Miramontes Primary Care Provider: Abdullahi Coronado Discharge Diagnosis (1) Asthma exacerbation: (2) Acute [...] and did require multiple DuoNeb's in the emergencydepartment without significant improvement in symptoms. Patient was maintained on maintenance inhaler in yearspast, but is currently not taking any maintenance inhalers. She does have a rescue albuterol inhaler and does have nebulizer machine with leave albuterol. She was treated with scheduled duonebs with albuterol/ipratropium and was started on budesonide twice daily. She was also started on high-dose IV Solu- Medrol every 8 hours. She had significant clinical [...] Sodium 137, Potassium 4.3, Chloride 106, Carbon Szqvrmm33.5 L, Anion Gap 13.8, BUN 9, Creatinine 0.94, Est GFR ( Amer) > 60, Est GFR (Non-Af Amer) > 60, Glucose 162 H, Calcium 9.4 12/28/21 05:52: Corrected WBC 11.2, Uncorrected WBC Count 11.2 H, RBC 4.76, Hgb 12.6, Hct 39.3, MCV82.6, MCH 26.5, MCHC 32.1, RDW 17.6 H, Plt Count 315, MPV 7.8, Neut % (Auto) 89.6, Lymph % (Auto) 8.7, [place] % (Auto) 1.3, Eos % (Auto) 0.0, Baso % (Auto) 0.4, Neut # (Auto) 10.0 H, Lymph # (Auto) 1.0, [place] # (Auto) 0.1, Eos # (Auto) 0.0, [...] worse at the right lower lung base.? Norhonchi.? Remains on 3 L nasal cannula at [...] DIRECTED PRN (Reason: wheeze) Follow Up: Abdullahi Coronado, GEOTHERMAL PLANT MANAGER-C [Primary Care Provider] - 12/31/21 1:00 pm (You have beenscheduled for a follow up appointment for the following date and time, please call to reschedule if needed.) Documented By: Hema Miramontes MD 2 1640 Signed By: <Electronically signed by Hema Miramontes MD> 12/28/21 1980 [facility] Work Phone: Evaluation + Plan note Future Appointments Appointment Date:08/15/2023 11:20:00 AM Scheduled Provider:Jose MAY, Quyen Pozo Location:.ONCOLOGY Appointment Type:ONC Office Visit New 40 (FT) Diagnostic Tests Pending * Erythropoietin Level 08/12/23 Future Scheduled Tests Laboratory* CBC w/ Auto Diff 08/08/23 * CBC w/ Auto Diff 08/22/23 * CBC w/ Auto Diff 08/29/23 [facility] Future Appointments Appointment Date:09/05/2023 02:00:00 PM Scheduled Provider: Location:[facility] Appointment Type:Surgery FT Future Scheduled Tests Laboratory* CBC w/ Auto Diff 10/10/23 * CBC w/ Auto Diff 08/08/23 * CBC w/ Auto Diff 08/22/23 * Comprehensive Metabolic Panel 10/10/23 * Ferritin 10/10/23 * Folate Level 10/10/23 * Iron Level 10/10/23 * Iron Percent Saturation 10/10/23 * Transferrin 10/10/23 [facility] Evaluation + Plan note Future Appointments Appointment Date:09/05/2023 02:00:00 PM Scheduled Provider: Location:[facility] Appointment Type:Surgery FT Diagnostic Tests Pending * IgA, Quant. 09/01/23 * t-Transglutaminase (tTG) IgG 09/01/23 Future Scheduled Tests Laboratory* CBC w/ Auto Diff 10/10/23 * CBC w/ Auto Diff 08/08/23 * CBC w/ Auto Diff 08/22/23 * Comprehensive Metabolic Panel 10/10/23 * Ferritin 10/10/23 * Folate Level 10/10/23 * Iron Level 10/10/23 * Iron Percent Saturation 10/10/23 * Transferrin 10/10/23 [facility] Future Appointments Appointment Date:10/27/2023 02:20:00 PM Scheduled Provider:Quyen Mitchell Location:.ONCOLOGY Appointment Type:ONC Office Visit 20 (FT) Future Scheduled Tests Laboratory* CBC w/ Auto Diff 08/08/23 * CBC w/ Auto Diff 08/22/23 [facility] Evaluation + Plan note Future Appointments Appointment Date:05/17/2024 09:00:00 AM Scheduled Provider: Location:[facility] Appointment Type:[facility] (FT) Future Scheduled Tests Laboratory* CBC w/ Auto Diff 08/08/23 * CBC w/ Auto Diff 08/22/23 [facility] evaluation [facility]No [facility] Other Evaluation note* Diagnosis Monocular esotropia, left eye- Primary Monocular esotropia Diplopia documented [facility] encounter [facility]* Diagnosis Preoperative examination- Primary Preoperative examination, [...] eye Monocular esotropia documented in this encounter [facility]* Diagnosis Onset Date Resolution Status Acute respiratory failure with hypoxia acuteAsthma exacerbationacute [facility] Work Phone: evaluation note* Diagnosis Onset Date Resolution Status Acute respiratory failure with hypoxia acuteAsthmaacuteAsthma exacerbationacuteHypoxemiaacute [facility] Work Phone: evalusgtol note* Diagnosis Monocular esotropia, left eye- Primary Monocular esotropia Monocular esotropia, left eye Monocular esotropia documented [facility] this encounter [facility]* Diagnosis Monocular esotropia, left eye- Primary Monocular esotropia documented [facility] encounter [facility]* Diagnosis Onset Date Resolution Status Acute respiratory failure with hypoxia acuteAsthmaacuteAsthma exacerbationacuteHypoxemiaacuteAsthma exacerbationacute [facility] Work Phone: Evaluation note* Diagnosis Onset Date Resolution Status Acute respiratory failure with hypoxia acuteAsthmaacuteAsthma exacerbationacuteHypoxemiaacuteAsthma exacerbationacute Viral illnessacute [facility] Work Phone: Evaluation noteNo assessment information available [facility] Work Phone: Evaluation note* Diagnosis Status post partial thyroidectomy (CMS/HCC)- Primary Other postprocedural status Other hyperparathyroidism (CMS/HCC) Other hyperparathyroidism documented in this encounter [facility] HealthcareEvaluation note* Diagnosis Status post partial thyroidectomy (CMS/HCC)- Primary Other postprocedural status Thyroid mass (CMS/HCC) Unspecified disorder of thyroid Low vitamin D level documented in this encounter [facility] HealthcareEvaluation note* Diagnosis Fatigue, unspecified type- Primary Dehydration [facility]* Diagnosis Lower abdominal pain- Primary Abdominal pain, other specified site documented in this encounter [facility] HealthHistory and physical note Author Nan Brand [facility] December 27, 2021 6:03pmNote Date/TimeNov2021 5:46pmUph[place] [address] Hospitalist H&P Signed Patient: Morro Maloney MR#: [id number] : 1985 Acct:[id number] Age/Sex: 36 / F Adm Date: 2 Loc: ER Room: Type: [facility] ER Attending Dr: Copies to: MYKEL HawkinsC Nan Brand MD~ HPI DATE OF EXAMINATION: 12/27/21 CHIEF COMPLAINT: Shortness of breath HISTORY OF PRESENT ILLNESS: 36 years old female with underlying history of asthma, not on any therapy, requiring intubation x1 when she was 16, presented with complaints of shortness of breath and severe wheezing with low pulseoximetry. Per patient she has been sick for [...] summer but at this time she was quiteshort of breath. She denied any fevers. She [...] % (Auto) 23.6 % (.) 12/27/21 14:42 [place] % (Auto) 5.7 % (.) 12/27/21 14:42 Eos % (Auto) 1.9 % (.) 12/27/21 14:42 Baso % (Auto) 0.8 % (.) 12/27/21 14:42 Neut # (Auto) 8.6 x10E3/uL (1.8-7.7) H 12/27/21 14:42 Lymph # (Auto) 3.0 x10E3/uL (1.00-4.8) 12/27/21 14:42 [place] # (Auto) 0.7 x10E3/uL (0.0-0.8) 12/27/21 14:42 [...] medications Documented By: Nan Brand MD 12/27/21 4933 Signed By: <Electronically signed by Nan Brand MD> 12/27/21 1803 [facility] Work Phone: History general Narrative - Reported* Type Description Date Medical History asthma Medical HistoryPCOSMedical HistorybipolarMedical Historypanic disorderMedical HistoryGestational diabetes - yesMedical HistoryInsulin ResistanceSurgical HistoryappendectomySurgical HistoryC sectionSurgical Historygall bladder Hospitalization HistoryAsthmaHospitalization Historysee above [facility] Other Hospital course Narrative No data available for this section [facility] Additional Instructions Do not start the prednisone for another 3 days and only if you need this Return for new or worsening symptoms [facility] Work Phone: Hospital Discharge instructions No data available for this section [facility]* Attachments The following attachments cannot be sent through Care Everywhere. * Fatigue ([place]) [facility] No data available for this section [facility] Summary Purpose Family History No Family History Records Found Relationship Condition Age at Onset Recorded Date/T manfred grandparent Malignant neoplasm of lung Unknown fatherAlive and wellUnknownNot SpecifiedAlive and wellUnknown Relationship Condition Age at Onset Recorded Date/T manfred grandparent Malignant neoplasm of lung Unknown fatherAlive and wellUnknownmotherAlive and wellUnknownmotherHyperlipidemia Unknown Advance Directives No Advanced Directives Records Found Advance Directive Response Recorded Date/ Time Advance Directives No March 31, 2018 9:14pm Advance Directive Response Recorded Date/ Time Advance Directives No March 31, 2018 8:14pm Date ActivatedDate InactivatedComments08/02/2018 1:40 AM08/03/2018 11:39 AMDate ActivatedDate InactivatedComments08/01/2018 10:38 PM08/02/2018 1:40 AMDate ActivatedDate InactivatedComments08/01/2018 10:19 PM08/01/2018 10:38 PMDate ActivatedDate InactivatedComments07/21/2018 1:22 AM07/21/2018 8:43 AMDate ActivatedDate InactivatedComments07/19/2018 12:15 PM5/ 6:03 PM Chief Complaint and Reason for Visit Chief Complaint Shortness of Breath Reason for Visit Acute respiratory fa ilure with hypoxia Asthma exacerbation Chief Complaint Shortness of Breath Reason for Visit Acute respiratory fa ilure with hypoxia Asthma Asthma exacerbation Hypoxemia Chief Complaint Shortness of Breath sobReason for VisitAcute respiratory failure with hypoxia Asthma Asthma exacerbation Hypoxemia Asthma exacerbation Chief Complaint Shortness of Breath sobReason for VisitAcute respiratory failure with hypoxia Asthma Asthma exacerbation Hypoxemia Asthma exacerbation Viral illness Chief Complaint Shortness of Breath sob Trouble breathingReason for VisitAcute respiratory failure with hypoxia Asthma Asthma exacerbation Hypoxemia Asthma exacerbation Viral illness Chief Complaint E07.9 Z01.818 Chief Complaint E07.9 Z01.818 Thyroid Nodule E07.9 Additional Source Comments INFORMATION SOURCE (unrecogn ized section and content) DATE CREATED AUTHOR 10/07/2018 [facility] DATE CREATED AUTHOR AUTHOR'S ORGANIZ ATION 11/23/2021 [facility] [employer] DATE CREATED AUTHOR AUTHOR'S ORGANIZ ATION 07/05/2022 [facility] DATE CREATED AUTHOR AUTHOR'S ORGANIZ ATION 08/04/2023 [facility] DATE CREATED AUTHOR AUTHOR'S ORGANIZ ATION 08/12/2023 [facility] DATE CREATED AUTHOR AUTHOR'S ORGANIZ ATION 08/13/2023 [facility] DATE CREATED AUTHOR AUTHOR'S ORGANIZ ATION 08/18/2023 [facility] DATE CREATED AUTHOR AUTHOR'S ORGANIZ ATION 09/06/2023 [facility] DATE CREATED AUTHOR AUTHOR'S ORGANIZ ATION 09/08/2023 [facility] DATE CREATED AUTHOR AUTHOR'S ORGANIZ ATION 09/12/2023 [facility] DATE CREATED AUTHOR AUTHOR'S ORGANIZ ATION 09/20/2023 [facility] DATE CREATED AUTHOR AUTHOR'S ORGANIZ ATION 09/24/2023 [facility] DATE CREATED AUTHOR AUTHOR'S ORGANIZ ATION 10/12/2023 [facility] DATE CREATED AUTHOR AUTHOR'S ORGANIZ ATION 10/28/2023 [facility] DATE CREATED AUTHOR AUTHOR'S ORGANIZ ATION 11/06/2023 [facility] DATE CREATED AUTHOR AUTHOR'S ORGANIZ ATION 11/11/2023 [facility] DATE CREATED AUTHOR AUTHOR'S ORGANIZ ATION 03/02/2024 [facility] DATE CREATED AUTHOR AUTHOR'S ORGANIZ ATION 04/29/2024 [facility] DATE CREATED AUTHOR AUTHOR'S ORGANIZ ATION 09/17/2024 [facility] DATE CREATED AUTHOR AUTHOR'S ORGANIZ ATION 12/02/2024 [facility] DATE CREATED AUTHOR AUTHOR'S ORGANIZ ATION 12/27/2024 [facility] DATE CREATED AUTHOR AUTHOR'S ORGANIZ ATION 12/28/2024 [facility] DATE CREATED AUTHOR AUTHOR'S ORGANIZ ATION 01/02/2025 [facility] REASON FOR VISIT (unrecogniz ed section and content) ReasonCommentsEsotropia Follow UpReasonCommentsSchedule SurgeryReasonComments Pre-Op ExamReasonCommentsPre-Op ExammeasurementsReasonCommentsPatient Question ReasonCommentsPost OpReasonCommentsPost-op1 month jessica s/p right thyroidectomy ReasonCommentsPost-opPost op right thyroidReasonCommentsFatiguePt reports fatigue/extreme tiredness that started 06/09/24 pt has hx of low iron and thinks that heriron is lowReasonCommentsAbdominal PainLower mid abd pain for the last couple weeks but a lot worse today Source Comments (unrecognize d section and content) In the event this informatio n is protected by the Federal Confidentiality of Alcohol and Drug Abuse Patient Records regulations: The Federal rules restrict any use of the information to criminally investigate or prosecute any alcohol or drug abuse patient.[facility] HospitalIn the event this information is protected by the Federal Confidentiality of Alcohol and Drug Abuse Patient Records regulations: The Federal rules restrict any use of the information to criminally investigate or prosecute any alcohol or drug abuse patient.[facility] HospitalIn the event this information is protected by the Federal Confidentiality of Alcohol and Drug Abuse Patient Records regulations: The Federal rules restrict any use of the information to criminally investigate or prosecute any alcohol or drug abuse patient.[facility] HospitalIn the event this information is protected by the Federal Confidentiality of Alcohol and Drug Abuse Patient Records regulations: The Federal rules restrict any use of the information to criminally investigate or prosecute any alcohol or drug abuse patient.[facility] HospitalIn the event this information is protected by the Federal Confidentiality of Alcohol and Drug Abuse Patient Records regulations: The Federal rules restrict any use of the information to criminally investigate or prosecute any alcohol or drug abuse patient.[facility] HospitalIn the event this information is protected by the Federal Confidentiality of Alcohol and Drug Abuse Patient Records regulations: The Federal rules restrict any use of the information to criminally investigate or prosecute any alcohol or drug abuse patient.[facility] HospitalIn the event this information is protected by the Federal Confidentiality of Alcohol and Drug Abuse Patient Records regulations: The Federal rules restrict any use of the information to criminally investigate or prosecute any alcohol or drug abuse patient.[facility] Care Teams (unrecognized sec tion and content) Team Status: Active Member Role Status Dates Abdullahi Coronado GEOTHERMAL PLANT MANAGER-C Primary Care Provider Active Jacques Robbins Jr ProviderActiveAndres Mcgee , MDAdmit Provider, Attending ProviderActive Team Status: Active Member Role Status Dates Abdullahi Coronado GEOTHERMAL PLANT MANAGER-C Primary Care Provider Active Team Status: Inactive Member Role Status Dates Abdullahi Coronado GEOTHERMAL PLANT MANAGER-C Primary Care Provider Active Jacques Robbins Jr ProviderActiveAndres Mcgee , MDAdmit ProviderActiveJp Barba DOAttending ProviderActive Team Status: Active Member Role Status Dates Abdullahi Coronado GEOTHERMAL PLANT MANAGER-C Primary Care Provider Active Elmer Valerio ProviderActiveRuta Semaskiene , MDAdmit Provider, Attending ProviderActive Team Status: Inactive Member Role Status Dates Abdullahi Coronado GEOTHERMAL PLANT MANAGER-C Primary Care Provider Active Elmer Valerio ProviderActiveRuta Semaskiene , MDAdmit Provider ActiveHema Miramontes , MDAttending ProviderActive Team Status: Inactive Member Role Status Dates Abdullahi Coronado GEOTHERMAL PLANT MANAGER-C Primary Care Provider Active BRUCE NielsenCEmergencfide ProviderActive Team Status: Active Member Role Status Dates Cleo Hernandez , GEOTHERMAL PLANT MANAGER-C Primary Care Provider Active Team Status: Inactive Member Role Status Dates Brandon Juares DO Attending Provider Active S tart: September 26, 2023 End: September 26, 2023Cleo Hernandez NP-CPrimary Care ProviderActiveStart: September 26, 2023 End: September 26, 2023 Team Status: Inactive Member Role Status Dates Brandon Juares DO Attending Provider Active S tart: October 05, 2023 End: October 05, 2023 Team Status: Inactive Member Role Status Dates Cleo Hernandez , GEOTHERMAL PLANT MANAGER-C Primary Care Provider Active Start: October 25, 2023 End: October 24enkacy Juares DOAttending ProviderActiveStart: October 25, 2023 End: October 25, 2023Team MemberRelationshipSpecialtyStart DateEnd Date Abdullahi Coronado NP [address] [place] [address] PCP - [facility]08/21/22 Chet Isabel MD [address] [place] [address] PCP - [facility]09/20/23 Rolly Vail APRN-MASH FILTER CLOTH CHANGER [address] [address] [facility]08/04/22 Cleo Hernandez MD [address] [place] [address] Referring PhysicianFami Medicine09/20/23 Brandon Juares DO [address] [place] [address] Otolaryngology09/20/23Team MemberRelationshipSpecialtyStart DateEnd Date Abdullahi Coronado NP [address] [place] [address] PCP - [facility]08/21/22 Chet Isabel MD [address] [place] [address] [facility] Rolly Vail, SENIOR AUDIT MANAGER-MASH FILTER CLOTH CHANGER [address] [address] [facility]08/04/22 Cleo Hernandez MD [address] [place] [address] Referring Physicianmily Medicine09/20/23 Brandon Juares DO [address] [place] [address] Otolaryngology09/20/23Team MemberRelationshipSpecialtyStart DateEnd Date Abdullahi Coronado NP [address] [place] [address] [facility] - [facility]08/21/22 Chet Isabel MD [address] [place] [address] PCP - [facility]09/20/23 Rolly Vail SENIOR AUDIT MANAGER-MASH FILTER CLOTH CHANGER [address] [place] [address] [facility]08/04/22 Cleo Hernandez MD [address] [place] [address] Referring PhysicianFamily Medicine09/20/23 Brandon Juares DO [address] [place] [address] Otolaryngology09/20/23Team MemberRelationshipSpecialtyStart DateEnd Date Abdullahi Coronado NP [address] [place] [address] PCP - [facility]08/21/22 Chet Isabel MD [address] [place] [address] PCP - [facility]09/20/23 Rolly Vail APRN-MASH FILTER CLOTH CHANGER [address] [address] [facility]08/04/22 Cleo Hernandez MD [address] [place] [address] Referring Physicianmily Medicine09/20/23 Brandon Juares DO [address] [place] [address] Otolaryngology09/20/23Team MemberRelationshipSpecialtyStart DateEnd Date Cleo Hernandez APRN - GEOTHERMAL PLANT MANAGER [address] [place] [address] PCP - General06/11/24Team MemberRelationshipSpecialtyStart DateEnd Chet Isabel MD [address] [place] [address] [phone] [facility] - [facility]/20/23 Cleo Hernandez NP [address] [place] [address] Referring [facility]icianW[facility] Medicine09/20/23 Brandon Juares DO [address] [place] [address] Otolaryngology09/20/23Team MemberRelationshipSpecialtyStart DateEnd Date Cleo Hernandez APRN - GEOTHERMAL PLANT MANAGER [address] [place] [phone] PCP - General06/11/24 Goals (unrecognized section and content) Goals may be documented in a n alternate section Ordered Prescriptions (unrec ognized section and content) PrescriptionSigDispense QuantityRefillsLast FilledStart DateEnd dicyclomine (BENTYL) 20 MG tablet Take 1 tablet by mouth every 6 hours as needed (abd pain/cramps) 20 tablet 09/17/2024 ondansetron (ZOFRAN-ODT) 4 MG disintegrating tablet Take 1 tablet by mouth every 6 hours as needed for Nausea or Vomiting 21 tablet 09/17/2024 Scheduled Active and Recently Administ ered Medications (unrecognized section and content) Medication Order/ fentaNYL (SUBLIMAZE) injection 100 mcg (COMPLETED) 100 mcg, IntraVENous, ONCE, 1 dose, On Tue09/17/24 at 1230, If oral and IV narcotics ordered, use oral first and only use IV if oral is ineffective or cannot take oral. Do Not give oral and IV within1 hour of each other unless specifically ordered. * 1227 (Given - Provider: Luis Felipe Sood, JUSTINO) ketorolac (TORADOL) injection 30 mg (COMPLETED) 30 mg, IntraVENous, ONCE, 1 dose, On Tue09/17/24 at 1100, Do not administer for more than 5 days. * 1149 (Given - Provider: Kemar Shearer RN) ondansetron (ZOFRAN) injection 4 mg (COMPLETED) 4 mg, IntraVENous, ONCE, 1 dose, On Tue09/17/24 at 1230 * 1227 (Given - Provider: Luis Felipe Sood RN) Medication Order09/15//// iopamidol (ISOVUE-370) 76 % injection 75 mL (COMPLETED) 75 mL, IntraVENous, IMG ONCE PRN, 1 dose, Starting on Tue09/17/24 at 1226, Until Tue09/17/24 at 1244, Other * 1244 (Given - Provider: Rebekah Geronimo) FOR RECORDS PERTAINING TO PATIENTS WHO ARE [...] BE BASED ON THE PRIMARY CLINICAL RECORDS. [facility]. provides no warranty or guarantee of the accuracy or completeness of information in this document.
== END 2025-01-07 14:24 | disposition home or self-care (01) ==
PROVIDERS: PCP Nurse Practitioner; Visit Provider Nurse Practitioner
DX: Z12.31 Encounter for screening mammogram for malignant neoplasm of breast (principal); Z80.3 Family history of malignant neoplasm of breast; Z80.8 Family history of malignant neoplasm of other organs or systems; R92.8 Other abnormal and inconclusive findings on diagnostic imaging of breast
CPT/HCPCS: 77063; 77067

== ENCOUNTER 2025-01-22 14:02 | Outpatient (OUT) | payer BC, SELFPAY ==
--- NOTE | 2025-01-22 | US_ITS ---
Patient Name: MORRO GUADARRAMA MR#: [id number] : 1985 Exam Date: 01/22/2025 Ordering Doctor: CLEO NUNEZ . RADIOLOGY REPORT PROCEDURE: MM TOMOSYNTHESIS DIAGNOSTIC LT, 01/22/2025, 14:01 US BREAST LT LIMITED, 01/22/2025, 14:42 COMPARISON: MM TOMOSYNTHESIS SCREENING BI, 01/07/2025. INDICATIONS: Abnormal And Inconclusive Findings On Mammogram Calculator Name NCI Breast Cancer Risk Assessment Tool 5 Year Breast Cancer Risk 0.70% Lifetime Breast Cancer Risk 12.50% Personal Breast Cancer No Personal Ovarian Cancer No Treatments None Family Cancers Grandmother-maternal with breast cancer at age 63; Grandmother-paternal with uterine cancer at age 70. LOCATION: [facility] BREAST COMPOSITION: There are scattered areas of fibroglandular density. FINDINGS: DIAGNOSTIC CATEGORY 1--NEGATIVE. LEFT BREAST: No significant suspicious finding. Previously identified focal asymmetry partially compresses out on the spot compression views. Ultrasound imaging at the 3 o'clock position of the left breast 10 cm from nipple demonstrates no suspicious mass or cyst. RECOMMENDATIONS: ROUTINE MAMMOGRAM AND CLINICAL EVALUATION IN 12 MONTHS. Dictated by: John Barker DO on 01/22/2025 at 14:53 Approved by: John Barker DO on 01/22/2025 at 14:54
--- OUTSIDE RECORDS SUMMARY | 2025-01-22 14:06 | XMS_ITS | Clinical Summary ---
Author Organization [facility] Address [address] [place] [address] Care Team Providers Care Narrow Fabric Calenderer Name Role Phone Nasreen Hernandez CLINICAL LABORATORY DIRECTOR Unavailable AliceBrandon salgado Amanda DO Unavailable [phone] Chet Isabel MD Primary Care Provider [phone] Allergies Active AllergyReactionsCriticalityNoted ZpryUnchguqkSgegghznqfjo02/27/2023 Other Reaction(s): drowsiness Sedvqdyvgv42/27/2023 Other Reaction(s): suicidal thoughts Molds [employer] Smuts06/22/2013 Medications MedicationSigDispense QuantityRefillsLast FilledStart DateEnd DateStatus albuterol (2.5 MG/3ML) 0.083% nebulizer solution Take 2.5 mg by nebulization every 6 (six) hours if needed.05/03/2022ctive fluticasone-salmeterol (Advair Diskus) 500-50 MCG/DOSE diskus inhaler Inhale 1 puff in the morning and 1 puff before bedtime.12/28/2021ctive ipratropium (Atrovent) 0.02 % nebulizer solution Take 0.5 mg by nebulization if needed.05/27/2022ctive predniSONE (Deltasone) 10 MG tablet TAKE 6 TABS X2 DAYS,5 X2 DAYS,4 X2 DAYS,3 X2 DAYS,2 X2 DAYS,1 TAB FOR 2 DAYS 03/29/2023ctive ALPRAZolam (Xanax) 0.5 MG tablet Indications:AnxietyTake 1 tablet (0.5 mg) by mouth 3 (three) times a day as needed for anxiety 30 tablet 05/31/2023ctive eszopiclone (Lunesta) 3 MG tablet Indications:Insomnia, unspecified typeTake 1 tablet (3 mg) by mouth as needed at bedtime for sleep Take immediately before bedtime 30 tablet 05/31/2023ctive lamoTRIgine (LaMICtal) 150 MG tablet Indications:Bipolar II disorder (HCC)Take 1 tablet (150 mg) by mouth in the morning and 1 tablet (150 mg) before bedtime. 60 tablet ctive sertraline (Zoloft) 100 MG tablet Indications:AnxietyTake 2 tablets (200 mg) by mouth Daily 60 tablet ctive albuterol HFA 90 mcg/act inhaler Indications:Moderate asthma with acute exacerbation, unspecified whether persistent (HCC),Wheezing,Chest congestionINHALE 2 PUFFS IF NEEDED FOR WHEEZING OR SHORTNESS OF BREATH 18 g ctive Docusate Sodium (COLACE PO) Take 200 mg by mouth08/05/2023ctive folic acid (Folvite) 1 MG tablet Take 1 mg by mouth08/15/2023ctive ARIPiprazole (Abilify) 30 MG tablet Take 30 mg by mouth Daily09/19/2023ctive Active Problems ProblemNoted DateDiagnosed ImigFtdgymyh84/27/2024ifficulty hptqyqtkyq20/27/2024 Elevated creatine ybzkry3509/17/2023Iron deficiency mdbzla4509/17/2023Shortness of kjewui3109/17/20234113Lobhrfixylu44/27/2024Weight gain09/17/2023Weight loss09/17/2023 Wellness hxdpgrgpbim86/27/2024Low back pain09/17/2023Elevated WBCs09/17/2023 Onqdjoy5009/17/2023yst of unawfpa8909/17/2023Enlarged thyroid gland09/17/2023 Abnormal white blood cell count07/17/2022cute bilateral low back pain with right-sided ntekgkeg03/27/2023alculus of gallbladder without cholecystitis without zobqpbohedg95/27/2023ipolar II rtgpupug54/27/2023Elevated glucose 07/17/2022Elevated triglycerides with high xthcbfgrowv19/27/2023Mixed vlrnqzasuivhta99/27/2023Facial /27/2023History of parotidectomy 07/17/2022Infertility associated with qdknafcuhba37/27/2023Irritable bowel syndrome with yyikstjp31/27/2500Xdiruguhwfff24/27/2023Mild intermittent asthma 07/17/2022Moderate asthma with acute ppghcnflkdxi88/27/2023sthmatic bronchitis 07/17/2022Nontoxic single thyroid uuvbde1007/17/2022Other gjrccaq0107/17/2022arotid mass07/17/2022COS (polycystic ovarian syndrome)07/17/2022ostoperative wound fcmqpynkv54/27/2023Seasonal allergic qydjzuxj37/27/2023Severe obesity (BMI >= 40)07/17/20220998Cfaxdjtrkonlovl95/27/2023Spondylolisthesis of lumbar region 07/17/2022Steatosis of liver07/17/2022Thyroid wsbqft5307/17/2022Vitamin D lwumydkacm64/27/4006Nzkyxjh06/27/2023 Resolved Problems ProblemNoted DateDiagnosed DateResolved DateChronic pain History of PCOS/Lumbar degenerative disc ztpjbkr6610/12/2023 10/12/2023anic jfpiadvq79/9194Ikmnmyvsbdjq52 Abdominal cramping affecting ([facility])reech presentation, no version ([facility])iplopia09/15/2023 09/15/2023raining postoperative woundFall09/15/2023 09/15/2023Fracture of radius and ulnaHypertension affecting in third trimester ([facility])Lesion of parotid glandHypoxemiaModerate episode of recurrent major depressive gzzemzsd05Morbid obesity due to excess aknsvoju25NSVD (normal spontaneous vaginal delivery) ([facility])Otitis eskdtcs18N palsy alsy of left sixth cranial nerve on xzcivpmdmzc87/25/2024 09/15/2023ost-op painSciatica Dichorionic diamniotic twin in third trimester ([facility])09/15/2023 09/15/2023Twin delivery by ([facility])UTI (urinary tract infection) during , third trimester ([facility]) UTI (urinary tract infection)Vaginal nguinckk12/25/2024 09/15/2023Viral qbfzjfe06Viral respiratory chzqgcc4109/15/2023 09/15/2023GERD (gastroesophageal reflux disease)Metabolic syndrome XMonocular esotropia, left eye PATRICE (obstructive sleep apnea) Overview (09/15/2023): Last Assessment & Plan: Assessment: mild per patient and CPAP was not required Ruptured, membranes, premature ([facility])Uterine contractions during ([facility]) Family History Medical HistoryRelationNameCommentsDepressionBrotherIrritable bowel syndrome FatherBone cancerMaternal GrandfatherLung cancerMaternal Grandmother HyperlipidemiaMotherRelationNameStatusCommentsBrotherFatherMaternal Grandfather Maternal GrandmotherMother Social History Tobacco UseTypesPacks/DayYears UsedDateSmoking Tobacco: NeverSmokeless Tobacco: Never Tobacco Cessation:Counseling Given: Not Answered Alcohol UseStandard Drinks/WeekCommentsNot Currently0 (1 standard drink = 0.6 oz pure alcohol)2 cans diet pepsiPHQ-2AnswerDate RecordedPatient Health Questionnaire-2 [id number] and Gender InformationValueDate RecordedSex Assigned at BirthNot on fileLegal SexFemale 05/05/2022 7:23 PM EDTGender IdentityNot on fileSexual OrientationNot on file Last Filed Vital Signs Vital SignReadingTime TakenCommentsBlood Jqfgrsrc165/8804/26/2023 4:28 PM EST Ejidn416604/26/2023 4:28 PM ZLPRhhuaqhxnwx48.7 ??C (98 ??F)02/23/2023 4:08 PM EST Respiratory Rate--Oxygen Fhahvkmioh64%02/23/2023 4:08 PM ESTInhaled Oxygen Concentration--Zgaiuz235 kg (236 lb)11/09/2023 2:29 PM WRVEekbaj247 cm (5' 3 ) 11/09/2023 2:29 PM EDTBody Mass Index41.8111/09/2023 2:29 PM EDT Plan of Treatment Not on file Care Teams Team MemberRelationshipSpecialtyStart DateEnd Chet Isabel MD [address] [place] [address] [phone] PCP - GeneralFamily Medicine09/20/23 Nasreen Hernandez NP [address] [place] [address] Referring PhysicianFamily Medicine09/20/23 Brandon Juares DO [address] [place] [address] Otolaryngology09/20/23
--- NOTE | 2025-01-22 14:07 | MM_ITS ---
Patient Name: MORRO GUADARRAMA MR#: [id number] : 1985 Exam Date: 01/22/2025 Ordering Doctor: CLEO NUNEZ . RADIOLOGY REPORT PROCEDURE: MM TOMOSYNTHESIS DIAGNOSTIC LT, 01/22/2025, 14:01 US BREAST LT LIMITED, 01/22/2025, 14:42 COMPARISON: MM TOMOSYNTHESIS SCREENING BI, 01/07/2025. INDICATIONS: Abnormal And Inconclusive Findings On Mammogram Calculator Name NCI Breast Cancer Risk Assessment Tool 5 Year Breast Cancer Risk 0.70% Lifetime Breast Cancer Risk 12.50% Personal Breast Cancer No Personal Ovarian Cancer No Treatments None Family Cancers Grandmother-maternal with breast cancer at age 63; Grandmother-paternal with uterine cancer at age 70. LOCATION: [facility] BREAST COMPOSITION: There are scattered areas of fibroglandular density. FINDINGS: DIAGNOSTIC CATEGORY 1--NEGATIVE. LEFT BREAST: No significant suspicious finding. Previously identified focal asymmetry partially compresses out on the spot compression views. Ultrasound imaging at the 3 o'clock position of the left breast 10 cm from nipple demonstrates no suspicious mass or cyst. RECOMMENDATIONS: ROUTINE MAMMOGRAM AND CLINICAL EVALUATION IN 12 MONTHS. Dictated by: John Barker DO on 01/22/2025 at 14:53 Approved by: John Barker DO on 01/22/2025 at 14:54
--- OUTSIDE RECORDS SUMMARY | 2025-01-22 14:11 | XMS_ITS | CCD ---
Author Organization [facility] Care Team Providers Care Ship Mate Name Role Phone RINE, JACKELYN L Referring [...] Provider DO Jp Barba Attending Provider ERAN Coronado Primary Care Provider MD Jason Milton Jr Emergency Provider Al MD Andres Evans Admit Provider DO Jp Barba Attending Provider [phone] MYKEL Britt Emergency Provider [phone] MD Nan Brand Admit Provider [phone] MD Nan Brand Attending Provider MD Hema Miramontes Attending Provider MYKEL Terry Emergency Provider [phone] KELLY GUERRERO Admitting Unavailable DIOR Ruiz, KELLY [...] Attending Unavailable Mayra, Cleo L Admitting Unavailable Amyra, Cleo L Attending Unavailable Mayra, Cleo L Attending Unavailable Mayra, Cleo L Attending Unavailable Mayra, Cleo L Attending Unavailable Stefan Mclean Referring Unavailable MouchStefan pope Attending Unavailable MouchStefan pope ASara Admitting Unavailable MouchStefan pope Attending Unavailable MurceDO Brandon albert Attending Provider [phone] Mayra, ERAN Rivas Primary Care Provider Quyen Garcia Attending Unavailable Demboske, Quyen Pozo Admitting Unavailable Mayra, GROUNDSKEEPING MAINTENANCE Cleo Godfrey Admitting Unavailable Mayra, GROUNDSKEEPING MAINTENANCE Cleo Godfrey Attending Unavailable Mayra, GROUNDSKEEPING MAINTENANCE Cleo Godfrey Referring Unavailable Elizabeth Moise H Attending Unavailable SOLAABDULLAHI Attending Unavailable MONY-NOSSEKROLLY Attending Unavailab le MONY-NOSSEK, ROLLY Abdul Attending Unavailab le MURCEBRANDON Albert Attending Unavailable MAYRACLEO Referring Unavailable MURCEK, BRANDON Patel Attending Unavailable MURCEK, BRANDON Patel Attending Unavailable MURCEK, BRANDON Patel Attending Unavailable Mony-Nossek TOW BAR DRIVER-SPRAYER INSECTICIDERolly Unavailable Abdullahi Coronado NP Unavailable Cleo Hernandez MD Unavailable Brandon Juares DO Unavailable Chet Isabel MD Primary Care Provider [phone] Cleo Hernandez Primary Care Unavailable Mor, Brandon Admitting Unavailable Murcek, Brandon Attending Unavailable Murcek, Brandon Admitting Unavailable Murcek, Brandon Attending Unavailable Murcek, Brandon Admitting Unavailable Murcek, Brandon Attending Unavailable MayraCleo Primary Care Unavailable Quyen Garcia Admitting Unavailable DembosQuyen zabala Attending Unavailable Mayra, GROUNDSKEEPING MAINTENANCE Cleo L Attending Unavailable Mayra, GROUNDSKEEPING MAINTENANCE Cleo L Attending Unavailable Mayra, GROUNDSKEEPING MAINTENANCE Cleo L Admitting Unavailable Mayra, GROUNDSKEEPING MAINTENANCE Cleo L Attending Unavailable Mayra TOW BAR DRIVER - 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/ANALYST, Cleo Primary Care Provider Mayra 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/ANALYST, Cleo Unavailable VIDA ALBRECHT Attending Unavailable MAYRA, [...] OnsetReaction(s) Facility (6 sources)Mold Extract; Translations: [mold]Drug Vzznauk26-18-0178[facility] (10 sources)ARIPiprazole; Translations: [ARIPiprazole]Drug Gyukjgp32-28-2709 Other (See Comments)[facility] (11 sources)FLUoxetine; Translations: [FLUoxetine]Drug Vqdysin76-53-9067[facility] (9 sources)Mold ExtractDrug Lwqtucd56-81-8449[facility] Medications Current Medications MedicationDrug Class(es)DatesSig (Normalized)Sig (Original)[id number] 200 actuat albuterol 0.09 mg/actuat metered dose inhaler (20 sources)beta2-Adrenergic AgonistStart: 98-14-4704vjclbbdis HFA 90 mcg/act inhaler Indications: Moderate asthma with acute exacerbation, unspecified w hether persistent (HCC) , Wheezing , Chest congestion INHALE 2 PUFFS IF NEEDED FOR WHEEZING OR SHORTNESS OF BREATH 18 g 1 08/24/2023 ActiveStart: 10-18-2022 take 2 puff(s) by inhalation every four hoursAlbuterol (Eqv-ProAir HFA) 2 puff(s), Inhalation, q4hr Shortness of breath or wheezing, Refill(s) 0Start Date: 10/18/22 Status: OrderedStart: 67-78-8060ovdlayqls (2.5 MG/3ML) 0.083% nebulizer solution Take 2.5 mg by nebulization every 6 (six) hours ifneeded. 05/03/2022 ActiveStart: 48-16-2021MEGKEQ HFA 90 mcg/actuation inhalerStart: 92-97-0612cdzm 2 puff(s) by inhalation every four hours [...] 90 mcg/actuation Hfa Aerosol Inhaler (8 sources)Start: 05-17-3020Cawabgktt Sulfate (Proventil Hfa) 90 mcg/actuation Hfa Aerosol Inhaler Active 90 MCG INHALATION As Directed March 31, 2018 12:00amStart: 58-03-6753Cyvglagaq Sulfate (Proventil Hfa) 90 mcg/actuation Hfa Aerosol Inhaler Active 90 MCG INHALATION As Directed March 31, 2018 1:00am ALPRAZolam 0.5 mg oral tablet (8 sources)BenzodiazepineStart: 11-46-6116vtar 1 tablet by mouth three times daily as neededALPRAZolam (XANAX) 0.5 MG tablet Take 1 tablet by mouth 3 times daily as needed. 02/14/2024 ActiveARIPiprazole 30 mg oral tablet (7 sources)Atypical AntipsychoticStart: 00-56-2988rwho 1 tablet by mouth once dailyARIPiprazole (Abilify) 30 MG tablet Take 30 mg by mouth Daily 09/19/2023 Activedexamethasone 1 mg/ml / neomycin 3.5 mg/ml / polymyxin b 81783 unt/ml ophthalmic suspension (2 sources)Aminoglycoside Antibacterial, Polymyxin-class Antibacterial, CorticosteroidStart: 11-26-2021 End: 75-66-9413iwgt 1 drop(s) into the eye(s) three times daily JOMBECWA-YSXEPAWJX-XRPRGYKS 3.5 MG/ML-10,000 UNIT/ML-0.1% EYE DROPS Use 1 Drop in both eyes three times daily for 7 days. 5 mL 0 11/26/2021 12/03/2021 Active Comment on above:Use 1 Drop in both eyes three times daily for 7 days. dicyclomine hydrochloride 20 mg oral tablet (1 source)AnticholinergicStart: 16-24-1885mzuw 1 tablet by mouth every six hours as needed for paindicyclomine (BENTYL) 20 MG tablet Take 1 tablet by mouth every 6 hours as needed (abd pain/cramps) 20 tablet 09/17/2024 Activedocusate sodium 200 mg oral capsule (19 sources)Start: 93-18-6805Sonvflgt Sodium (COLACE PO) Take 200 mg by mouth 08/05/2023 Activeergocalciferol 1.25 mg oral capsule (13 sources)Provitamin D2 CompoundStart: 10-12-2023 End: 16-11-8987vyck 1 capsule by mouth every weekergocalciferol (Drisdol) 1.25 MG (22142 UT) capsule Indications: Low vitamin D level Take 1 capsule(1.25 mg) by mouth 1 (one) time per week for 12 doses 4 capsule 2 10/12/2023 12/29/2023 ActiveStart: 06-08-2021 End: 54-71-8510uuwt 1 capsule by mouth every week, then take 1 capsule by mouth every monthErgocalciferol (Vitamin D2) Discontinued 62268 UNIT PO As Directed June 08, 2021 12:00am November 18, 2021 2:29am take one cap every week for 8 weeks, then one cap every months after that.eszopiclone 3 mg oral tablet (20 sources)Start: 97-34-1440ihxottvygew (Lunesta) 3 MG tablet Indications: Insomnia, unspecified type Take 1 tablet (3 mg) by mouth as needed at bedtime for sleep Take immediately before bedtime 30 tablet 05/31/2023 Activefluticasone / salmeterol (20 sources)Corticosteroid, beta2-Adrenergic AgonistStart: 72-66-0963vrng 2 puff(s) by inhalation at bedtimeAdvair Diskus 500 mcg-50 mcg inhalation powder See Instructions, Refill(s) 0, 2 puffs at bedtime Start Date: 10/18/22 Status: OrderedStart: 88-68-4241wzmn 1 puff(s) by inhalation in the morningfluticasone- salmeterol (Advair Diskus) 500-50 MCG/DOSE diskus inhaler Inhale 1 puff in the morning and 1 puff before bedtime. 12/28/2021 ActiveStart: 12-28-2021 End: 90-95-8393Deogicjhfsb Propion-Salmeterol (Advair Diskus) 500-50 mcg/dose blister with device Discontinued 1 INH INHALATION Twice daily 60 December 28, 2021 1:00am April 25, 2023 8:29amStart: 29-11-4338Ukyvwexmgud Propion- Salmeterol (Advair Diskus) 500-50 mcg/dose blister with device Active 1 INH INHA LATION Twice daily 60 December 28, 2021 12:00amStart: 06-26-2020 End: 34-14-3316Fwzdbhlacrq Propion-Salmeterol (Advair Diskus) 250-50 mcg/dose blister with device Discontinued 1 INH INHALATION Twice daily 60 June 25, 2020 11:00pm April 11, 2021 3:33pmStart: 06-26-2020 End: 33-93-2024Sqoivvirkwn Propion-Salmeterol (Advair Diskus) 250-50 mcg/dose blister with device Discontinued 1 INH INHALATION Twice daily 60 June 26, 2020 12:00am April 11, 2021 4:33pmfolic acid 1 mg oral tablet (18 sources)Start: 29-99-8981ohwjv acid (Folvite) 1 MG tablet Take 1 mg by mouth 08/15/2023 Activegabapentin 100 mg oral capsule (19 sources)Anti-epileptic AgentStart: 20-09-0818acyi 2 capsules by mouth twice dailyGabapentin Active 200 MG PO Twice daily April 25, 2023 1:00am FreeTextSi capsules Orally twicedaily; Note: Source Status: Hjidulw77.29 chronic pain; Refills: 0; Qty: 120 capsules;Start: 04-11-2021 End: 79-22-5330iidt 200 mg by mouth twice dailyGabapentin Discontinued 200 MG PO Twice daily April 11, 2021 1:00am November 18, 2021 2:29amStart: 03-03-2020 End: 68-83-4152lccc 2 capsules by mouth twice dailyGabapentin 100 MG 2 capsules Orally twice daily for 30 day(s) g89.29 chronic pain Feb, ActiveStart: 58-24-0905mifp 2 capsules by mouth once daily at bedtimeGabapentin 100 MG 2 capsules Orally qhs for 30 day(s) g89.29 chronic pain Feb, Active ipratropium bromide 0.2 mg/ml inhalation solution (7 sources)AnticholinergicStart: 25-88-4393cemqewkzbym (Atrovent) 0.02 % nebulizer solution Take 0.5 mg by nebulization if needed. 05/27/2022 Active lamoTRIgine 200 mg oral tablet (20 sources)Mood Stabilizer, Anti-epileptic AgentStart: 63-08-6923zadx 1 tablet by mouth once dailylamotrigine 200 mg Tab 200 mg = 1 tab(s), Oral, Daily Start Date: 08/05/23 Status: Ordered Repeat number: 1Start: 42-03-2940lrsi 1 tablet by mouth in the morninglamoTRIgine (LaMICtal) 150 MG tablet Indications: Bipolar II disorder (HCC) Take 1 tablet (150 mg) by mouth in the morning and 1 tablet (150 mg) before bedtime. 60 tablet 1 05/31/2023 ActiveStart: 50-46-0330gxor 1 tablet by mouth once dailyLamotrigine (Lamictal) 100 mg tablet Active 100 MG PO Daily April 25, 2023 1:00am FreeTextSi tablet Orally Once a day; Note: Source Status: Taking;Start: 87-59-1730dpaaaqdqnbs 150 mg Tab Refills(s) 0 Start Date: 10/14/22 Status: OrderedStart: 04-11-2021 End: 53-28-8389wscg 200 mg by mouth once dailyLamotrigine Discontinued [...] mg/ml pen injector (17 sources)GLP-1 Receptor AgonistStart: 66-34-7764Qiygazbbwky (Victoza 2-[place]) 0.6 mg/0.1 mL (18 mg/3 mL) pen injector Active 1.8 MG SUBCUT Daily April 25, 2023 1:00am FreeTextSi.8 mg Subcutaneous Daily; Note: Source Status: Taking; Refills: 1; Qty: 1 Box; Provider: Varsha BaigaldStart: 05-25-2020 End: 96-81-4207Adfthjarqby (Victoza 2-[place]) 0.6 mg/0.1 mL (18 mg/3 mL) pen injector Discontinued 1.8 MG SUBCUT As Directed May 25, 2020 12:00am April 11, 2021 4:33pmlurasidone hydrochloride 60 mg oral tablet (20 sources)Atypical AntipsychoticStart: 39-86-3447sclx 1 tablet by mouth once dailylurasidone 60 mg oral tablet 60 mg = 1 tab(s), Oral, Daily, Refills(s) 0 Start Date: 8/28/23 Status: OrderedStart: 05-17-2019 End: 80-45-3187zjbh 1 tablet by mouth once dailyLurasidone (Latuda) 40 mg tablet Active 40 MG PO Daily May 17, 2019 12:00amtake 1 tablet by mouth every twenty-four hourslurasidone (LATUDA) 40 mg tablet Take by mouth q 24 HR. 0 ActiveComment on above:Take by mouth q 24 HR.24 hr metFORMIN hydrochloride 750 mg extended release oral tablet (20 sources)BiguanideStart: 04-69-8361oper 2 tablets by mouth once daily at mealtimeMetformin Active 1500 MG PO Daily April 25, 2023 1:00am FreeTextSi tablets with food Orally Once a day; Note: Source Status: Taking; Provider: Chris Taylor ( )Start: 43-48-4380qobSZKVTG (GLUCOPHAGE) 500 mg tablet Take 500 mg by mouth as directed. 0 03/31/2018 ActiveStart: 03-31-2018 End: 48-66-1343yvyy 1500 mg by mouth once dailyMetformin Discontinued 1500 MG PO Daily March 31, 2018 1:00am April 25, 2023 8:28amStart: 10-20-2015 End: 32-99-5111gnxb 2 tablets by mouth once daily at breakfast, then take 2 tablets by mouth once dailymetFORMIN ER (GLUCOPHAGE-XR) 750 MG XR tablet Indications: PCOS (polycystic ovarian syndrome) Take 2 tablets by mouth daily (with breakfast) 2 tabs daily 60 tablet 5 10/20/2015 09/17/2024 Discontinued (LIST CLEANUP)Comment on above:Take 500 mg by mouth as directed. methylPREDNISolone 4 mg oral tablet (7 sources)CorticosteroidStart: 08-01-2023 End: 73-56-1116Qddvub 4 mg Tab = 1 packet(s), Oral, As Directed, as directed on package labeling, X 6 day(s), # 21tab(s), Refills(s) 0, Pharmacy: [facility]/pharmacy #[id number], 161, cm, 08/01/23 14:17:00 EDT, Height/Length Dosing, 107.3, kg, 08/01/23 14:17:00 EDT, Weight Dosing Start Date: 08/01/23 Stop Date: 08/07/23 Status: OrderedStart: 12-28-2021 End: 51-70-1951bnnk 1 tablet by mouth onceMethylprednisolone (Medrol ([place])) 4 mg tablets,dose pack Discontinued 0 PO .COMPLEX December 28, 2021 1:00am April 25, 2023 8:30am orally per package directionsondansetron 4 mg disintegrating oral tablet (12 sources)Serotonin-3 Receptor AntagonistStart: 96-79-5641raxr 1 tablet by mouth every six hours as needed for nauseaondansetron (ZOFRAN-ODT) 4 MG disintegrating tablet Take 1 tablet by mouth every 6 hours as needed for Nausea or Vomiting 21 tablet 09/17/2024 ActiveStart: 09-17-2024 End: mg, IntraVENous, ONCE, 1 dose, On Tue09/17/24 at 1230Start: 05-25-2020 End: 72-66-0538upjf 4 mg by mouth every eight hoursOndansetron Discontinued 4 MG PO Q8H 9 May 25, 2020 12:00am April 11, 2021 4:32pmStart: 09-28-2018 End: 11-62-5294yumm 1 tablet by mouth every eight hours as needed for nausea ondansetron (ZOFRAN) 4 MG tablet Take 1 tablet by mouth every 8 hours as needed for Nausea or Vomiting 12 tablet 09/28/2018 09/17/2024 Discontinued (LIST CLEANUP)phentermine hydrochloride 37.5 mg oral tablet (1 source)Sympathomimetic Amine AnorecticStart: 05-28-8644tkpd 1 tablet by mouth once dailyphentermine 37.5 mg Tab 37.5 mg = 1 tab(s), Oral, Daily, # 30 tab(s), Refills(s) 0, Pharmacy: [id number], 161, cm, 10/18/22 14:05:00 EDT, Height/Length Dosing, 105.6, kg, 10/18/22 13:58:00EDT, Weight Dosing Start Date: 10/18/22 Status: OrderedpredniSONE 10 mg oral tablet (20 sources)Start: 10-82-5949sidflvVWLY (Deltasone) 10 MG tablet TAKE 6 TABS X2 DAYS,5 X2 DAYS,4 X2 DAYS,3 X2 DAYS,2 X2 DAYS,1 TAB FOR 2 DAYS 03/29/2023 Active Start: 02-08-2022 End: 67-19-0178Xncbgnpxzu Discontinued 40 MG PO Daily 8 February 08, 2022 1:00am April 25, 2023 8:30am days 11-21 of therapyStart: 11-19-2021 End: 48-99-7937Gircieammq Discontinued 0 PO .COMPLEX 36 November 19, 2021 12:00am December 27, 2021 4:16pm prednisone 5 mg: take 8 tablets (40 mg) on Day 1; 7 tablets (35 mg) on Day 2; then decrease by 1 tabletevery day until finishedStart: 05-06-2021 End: 96-52-2506ksjp 50 mg by mouth once dailyPrednisone Discontinued 50 MG PO Daily 4 May 06, 2021 12:00am June 07, 2021 12:36amStart: 04-11-2021 End: 94-73-0161jrap 2 tablets by mouth once daily at mealtimepredniSONE (DELTASONE) 20 MG tablet TAKE 2 TABLETS BY MOUTH ONCE DAILY WITH FOOD OR MILK FOR 5 DAYS04/11/2021 09/17/2024 Discontinued (LIST CLEANUP)Start: 06-26-2020 End: 75-82-3119duvp 40 mg by mouth once daily at mealtimePrednisone Discontinued 40 MG PO Daily April 11, 2021 1:00am May 06, 2021 8:20am administer with food or milkStart: 01-09-2020 End: 20-37-0961lqci 60 mg by mouth once dailyPrednisone Discontinued 60 MG PO Daily January 09, 2020 1:00am May 25, 2020 7:58pmStart: 03-31-2018 End: 09-65-0472iemn 60 mg by mouth once daily at mealtimePrednisone Discontinued 60 MG PO Daily 9 March 31, 2018 1:00am May 17, 2019 8:32pm administer with food or milksertraline 100 mg oral tablet (20 sources)Serotonin Reuptake InhibitorStart: 71-14-8567vxhf 2 tablets by mouth once dailysertraline (Zoloft) 100 MG tablet Indications: Anxiety Take 2 tablets (200 mg) by mouth Daily 60 tablet 1 05/31/2023 ActiveStart: 43-30-3357klye 1 tablet by mouth once dailysertraline 100 [...] oral tablet (19 sources)Aldosterone AntagonistStart: 08-14-2018 End: 92-00-8533gcnw 1 tablet by mouth once daily at mealtimeSpironolactone Active 50 MG PO Daily April 25, 2023 1:00am FreeTextSi tablet with food Orally Once a day; Note: Source Status: Taking; Provider: Chris Taylor ( )Venofer 20 mg/mL Soln-IV (13 sources)Start: 83-83-5874glpl 300 mg intravenously every other weekVenofer 20 mg/mL Soln-IV See Instructions, 300 mg IV every 2 weeks x 2 doses, # 1 EA, Refills(s) 0 Start Date: 05/03/24 Status: Ordered Quantity: 1.0 Unit: EA Repeat number: 1 Indications: Iron deficiency anemia, unspecified;Start: 85-88-0906kfko 300 mg intravenously every other weekVenofer 20 mg/mL Soln-IV See Instructions, 300 mg IV every 2 weeks x 2 doses, # 1 EA, Refills(s) 0 Start Date: 05/03/24 Status: OrderedStart: 03-45-0610qakn 500 mg intravenously every other week Venofer 20 mg/mL Soln-IV See Instructions, 500 mg IV every 2 weeks x 2 doses, # 25 mL, Refills(s) 0, 161, cm, 08/01/23 14:17:00 EDT, Height/Length Dosing, 107.3, kg, 08/01/23 14:17:00 EDT, Weight Dosing Start Date: 08/02/23 Status: OrderedVentolin HFA 90 mcg/inh Aerosol-Adpt (15 sources)Start: 06-48-8751sgxc 2 puff(s) by inhalation every four hours for wheezingVentolin HFA 90 mcg/inh Aerosol-Adpt 2 puff(s), Inhalation, q4hr for wheezing, 18 gram, Refill(s) 11 Start Date: 05/03/24 Status: Ordered Quantity: 18.0 Unit: g Repeat number: 12Start: 12-60-9819qyxz 2 puff(s) by inhalation every four hours for wheezingVentolin HFA 90 mcg/inh Aerosol-Adpt 2 puff(s), Inhalation, q4hr for wheezing, 18 gram, Refill(s) 11 Start Date: 05/03/24 Status: OrderedStart: 13-55-0850qsol 2 puff(s) by inhalation every four hours for wheezingVentolin HFA 90 mcg/inh Aerosol-Adpt 2 puff(s), Inhalation, q4hr for wheezing, 18 gram, Refill(s) 11, [facility]/pharmacy #[id number], 161, cm, 09/21/23 15:12:00 EDT, Height/Length Dosing, 108, kg, 09/21/23 15:12:00 EDT, Weight Dosing Start Date: 10/07/23 Status: OrderedStart: 50-56-8281luau 2 puff(s) by inhalation every four hours for wheezingVentolin HFA 90 mcg/inh Aerosol-Adpt 2 puff(s), Inhalation, q4hr for wheezing, 18 gram, Refill(s) 5, [facility]/pharmacy #[id number], 161, cm, 10/18/22 14:05:00 EDT, Height/Length Dosing, 105.6, kg, 10/18/22 13:58:00 EDT, Weight Dosing Start Date: 12/31/22 Status: OrderedStart: 17-77-1178luoc 2 puff(s) by inhalation every four hours for wheezingVentolin HFA 90 mcg/inh Aerosol-Adpt 2 puff(s), Inhalation, q4hr for wheezing, 18 gram, Refill(s) 0, [id number], 161, cm, 10/18/22 14:05:00 EDT, Height/Length Dosing, 105.6, kg, 10/18/22 13:58:00 EDT, Weight Dosing Start Date: 10/18/22 Status: Ordered Completed/Discontinued Medications MedicationDrug Class(es)DatesSig (Normalized)Sig (Original)acetaminophen 325 mg / HYDROcodone bitartrate 5 mg oral tablet (8 sources)Opioid AgonistStart: 05-17-2019 End: 20-59-7927cyqx 1 tablet by mouth four times dailyHydrocodone-Acetaminophen ([place]) 5-325 mg tablet Discontinued 1 TAB PO Four times daily 12 3 2019April 11, 2021 4:32pmamoxicillin 500 mg oral capsule (8 sources)Penicillin-class AntibacterialStart: 04-11-2021 End: 66-45-5608btmf 500 mg by mouth three times dailyAmoxicillin Discontinued 500 MG PO Three times daily April 11, 2021 1:00am May 0628:20am aspirin 81 mg delayed release oral tablet (8 sources)Platelet Aggregation Inhibitor, Nonsteroidal Anti-inflammatory Drug Start: 03-31-2018 End: 68-22-2168gfaw 1 tablet by mouth once dailyAspirin (Aspir-81) 81 mg Tablet,Delayed Release (Dr/Ec) Discontinued 81 MG PO Daily March 31, 2018 1:00am May 17, 2019 8:32pmazithromycin 250 mg oral tablet (8 sources)Macrolide AntimicrobialStart: 06-26-2020 End: 79-18-7553nqfz 1 tablet by mouth once dailyAzithromycin (Zithromax) 250 mg tablet Discontinued 250 MG PO daily 4 4 June 26, 2020 12:00am April 11, 2021 4:32pm First dose given in EDciprofloxacin 2 mg/ml / hydrocortisone 10 mg/ml otic suspension (8 sources)Corticosteroid, Quinolone AntimicrobialStart: 04-11-2021 End: 07-09-4715Rnlquvymhwhur-Hydrocortisone (Cipro Hc) 0.2-1 % drops,suspension Discontinued 3 DROPS EAR-LEFT Twice daily 42 7 April 11, 2021 1:00am May 06, 2021 8:20amcitalopram 20 mg oral tablet (2 sources)Serotonin Reuptake Inhibitor End: 86-37-9734ghae 1 tablet by mouth once dailycitalopram (CELEXA) 20 MG tablet Take 1 tablet by mouth daily 09/17/2024 Discontinued (LIST CLEANUP) cyclobenzaprine hydrochloride 10 mg oral tablet (8 sources)Muscle RelaxantStart: 01-09-2020 End: 44-14-8254lcgr 10 mg by mouth three times dailyCyclobenzaprine Discontinued 10 MG PO Three times daily January 09, 2020 7:36pm April 11, 2021 4:32pmdoxycycline hyclate 100 mg oral tablet (8 sources)Tetracycline-class DrugStart: 05-25-2020 End: 19-87-3010ggyj 100 mg by mouth twice dailyDoxycycline Hyclate Discontinued 100 MG PO Twice daily 10 12May 25, 2020 12:00am March 4:32pm2 ml fentaNYL 0.05 mg/ml injection (1 source)Opioid AgonistStart: 09-17-2024 End: 44-41-6429xgcw 1 dose by mouth every ihcs016 mcg, IntraVENous, ONCE, 1 dose, On Tue09/17/24 at 1230, If oral and IV narcotics ordered, use oral first and only use IV if oral is ineffective or cannot take oral. Do Not give oral and IV within1 hour of each other unless specifically ordered.Start: 09-17-2024 End: 64-52-1571zkrn 1 dose by mouth every behb653 mcg, IntraVENous, ONCE, 1 dose, On Tue09/17/24 at 1230, If oral and IV narcotics ordered, use oral first and only use IV if oral is ineffective or cannot take oral. Do Not give oral and IV within1 hour of each other unless specifically ordered.FLUoxetine 40 mg oral capsule (8 sources)Serotonin Reuptake InhibitorStart: 05-17-2019 End: 21-05-7791qoxc 40 mg by mouth once dailyFluoxetine Discontinued 40 MG PO Daily May 17, 2019 12:00am April 11, 2021 4:33pmhydrOXYzine pamoate 50 mg oral capsule (2 sources)Antihistamine End: 09-70-5566kezd 1 capsule by mouth every six hours as neededhydrOXYzine (VISTARIL) 50 MG capsule 1 capsule as needed Orally every 6 hrs 09/17/2024 Discontinued(LIST CLEANUP)iopamidol (ISOVUE-370) 76 % injection 75 mL (1 source)Start: 09-17-2024 End: 27-45-0950duac 1 dose intravenously once75 mL, IntraVENous, IMG ONCE PRN, 1 dose, Starting on Tue09/17/24 at 1226, Until Tue09/17/24 at 1244, Other1 ml ketorolac tromethamine 30 mg/ml cartridge (1 source)Nonsteroidal Anti-inflammatory Drug, Cyclooxygenase InhibitorStart: 09-17-2024 End: mg, IntraVENous, ONCE, 1 dose, On Tue09/17/24 at 1100, Do not administer for more than 5 days.levalbuterol 0.21 mg/ml inhalation solution (8 sources)beta2-Adrenergic AgonistStart: 05-06-2021 End: 18-96-5266Ptjynulekdui Hcl (Xopenex) 0.63 mg/3 mL Solution For Nebulization Discontinued 0.63 MG INHALATION As Directed May 06, 2021 12:00am April 25, 2023 8:30amlumateperone 42 mg oral capsule (4 sources)Start: 88-65-4202wcoj 1 capsule by mouth once daily in the morning Caplyta 42 mg oral capsule 42 mg = 1 cap(s), Oral, Daily, TAKE 1 CAPSULE BY MOUTH IN THE MORNING Start Date: 03/29/23 Status: Orderednaproxen 500 mg oral tablet (16 sources)Nonsteroidal Anti-inflammatory DrugStart: 05-17-2019 End: 05-54-5156zeeg 1 tablet by mouth twice dailyNaproxen (Naprosyn) 500 mg tablet Discontinued 500 MG PO Twice daily January 09, 2020 1:00am April 11, 2021 4:32pmQUEtiapine 100 mg oral tablet (8 sources)Atypical AntipsychoticStart: 04-11-2021 End: 40-58-6319Aymetbwwji Discontinued MG TABLET April 11, 2021 1:00am May 06, 2021 8:20am Problems Active Problems Problem ClassificationProblemDateDocumented DateEpisodic/ChronicAbdominal pain (2 sources)Lower abdominal pain; Translations: [Lower abdominal pain, unspecified]Onset: [id number] disorders (17 sources)Panic disorder; Translations: [Panic disorder [episodic paroxysmal anxiety]]Onset: 07-17-2022 Resolved: 171537-50-1892AdcqmuyTskhcz (20 sources)Asthma; Translations: [Unspecified asthma, uncomplicated]Onset: 41-09-5355VlnhxbiBhwvejf obstructive pulmonary disease and bronchiectasis (8 sources)Bronchitis; Translations: [Bronchitis, not specified as acute or chronic]11-33-0142NtswqzusNbzpvkdqgdepu of surgical procedures or medical care (4 sources)History of subtotal thyroidectomy; Translations: [Postprocedural hypothyroidism]67-26-9926YtgtqipBklzdarlzi and other anemia (1 source)Anemia; Translations: [Anemia, unspecified]Onset: 38-44-0950Fgkgdlfh Diseases of white blood cells (20 sources)Leukocytosis; Translations: [White blood cell count abnormal]Onset: 639343-00-8460AzjochqBpsdeqdko of lipid metabolism (20 sources)Mixed hyperlipidemia; Translations: [Mixed hyperlipidemia]Onset: 35-41-6245UtwxwtlR Codes: Natural/environment (1 source)Other and unspecified overexertion or strenuous movements or postures, initial encounter; Translations: [OTH AND UNS OVREXRT/STRN MVMT/POS INT]Onset: 05-47-9742OdcpprbjZzxpnm infertility (7 sources)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 anovulation; Translations: [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 anovulation]Onset: hronic Hypertension complicating ; childbirth and the puerperium (9 sources)Hypertension complicating ; Translations: [Unspecified maternal hypertension, third trimester]Onset: 09-15-2023 Resolved: 691396-31-7069AdxtrskGotzjvtbczs; malpresentation (9 sources)Breech presentation; Translations: [Maternal care for breech presentation, not applicable or unspecified]Onset: 09-15-2023 Resolved: 034293-97-5970KhydcmhpVyaw disorders (20 sources)Bipolar disorder; Translations: [Bipolar disorder, unspecified] Onset: 11-12-2021 Resolved: 52-01-3834OfwvujoDuvzckkwofk deficiencies (7 sources)Vitamin D deficiency; Translations: [Vitamin D deficiency, unspecified]Onset: 088306-34-4818JndkjowFkvkn aftercare (1 source)Other long term care phlebotomist (current) drug therapy; Translations: [OTH RESIDENTIAL CURRENT DRUG THERAPY]Onset: 76-30-7567KyzsdsrlVgbxt complications of (9 sources)Complication of , childbirth and/or the puerperium; Translations: [Other specified related conditions, unspecified trimester]Onset: 09-15-2023 Resolved: 926449-89-0232XfbcqaduSedid complications of (9 sources)Urinary tract infection in ; Translations: [Unspecified infection of urinary tract in , third trimester]Onset: 09-15-2023 Resolved: 570029-82-7862CknhdezuDfftw endocrine disorders (7 sources)Polycystic ovary syndrome; Translations: [Polycystic ovarian syndrome]Onset: 878698-53-3355AtpzolvPtqwn endocrine disorders (2 sources)Hyperparathyroidism; Translations: [Other hyperparathyroidism] 46-89-2856WmioyxuRdroz female genital disorders (9 sources)Vaginal bleeding; Translations: [Abnormal uterine and vaginal bleeding, unspecified]Onset: 09-15-2023 Resolved: 850558-40-6427IvoardzIegsr gastrointestinal disorders (7 sources)Irritable bowel syndrome with diarrhea; Translations: [Irritable bowel syndrome with diarrhea]Onset: 383358-04-5526AygqttuIjpra gastrointestinal disorders (5 sources)History of bariatric surgical procedure; Translations: [Bariatric surgery status]Onset: 14-65-0304QxfiknjbPqsnh gastrointestinal disorders (2 sources)Swollen abdomen; Translations: [Abdominal distension (gaseous)]Onset: 60-98-1600GpvyfmatQkygt liver diseases (18 sources)Steatosis of liver; Translations: [Fatty (change of) liver, not elsewhere classified]Onset: 30-62-8202UvrnvxmQuunn lower respiratory disease (4 sources)Hypoxemia; Translations: [Hypoxemia]49-94-6847QxafxwngIdtej nervous system disorders (16 sources)Chronic pain; Translations: [Other chronic pain]Onset: 10-12-2023 Resolved: 309314-95-2698VkkyityWobmt nervous system disorders (3 sources)Other chronic pain; Translations: [Chronic pain G89.29]Onset: 11-13-2020 Resolved: 18-92-4656ToqvaexRgjju non-traumatic joint disorders (3 sources)Pain in right knee; Translations: [PAIN IN RIGHT KNEE]Onset: 36-76-9568OxvaujpmNgztm nutritional; endocrine; and metabolic disorders (13 sources)Body mass index 40+ - severely obese; Translations: [Body mass index (BMI) 45.0-49.9, adult]Onset: 243267-92-7744BasjyabVrhzn nutritional; endocrine; and metabolic disorders (6 sources)Insulin resistance; Translations: [Metabolic syndrome]ChronicOther nutritional; endocrine; and metabolic disorders (7 sources)Obesity; Translations: [Obesity, unspecified]Onset: 59-31-0620Desplmb Other nutritional; endocrine; and metabolic disorders (5 sources)Body mass index 30+ - obesity; Translations: [Obesity, unspecified] Onset: 45-49-3561KtngfzaZbjbs nutritional; endocrine; and metabolic disorders (6 sources)Obesity caused by energy ihtcufipl81-88-0877DxgmvliTyddm nutritional; endocrine; and metabolic disorders (18 sources)Weight gain; Translations: [Abnormal weight gain]Onset: 09-17-2023 95-43-5691QqhjswawYwfts nutritional; endocrine; and metabolic disorders (1 source)Abnormal weight loss; Translations: [Abnormal weight loss]Onset: 05-17-6300ZjewkyebPyjkc nutritional; endocrine; and metabolic disorders (16 sources)Weight loss; Translations: [Abnormal weight loss]Onset: 09-17-2023 54-30-8021WfpzzkkjNppqr and delivery including normal (20 sources)Delivery normal; Translations: [Encounter for full-term uncomplicated delivery]Onset: 09-15-2023 Resolved: 841362-07-8730HznjrhvyXxjhd upper respiratory disease (7 sources)Seasonal allergic rhinitis; Translations: [Other seasonal allergic rhinitis]Onset: 306900-38-3167SfkrhilQmdkrlgm codes; unclassified (1 source)Past history of procedure; Translations: [Other specified postprocedural states]Onset: 16-61-4874ZxmnkbhfZcaygwunmpc failure; insufficiency; arrest (adult) (13 sources)Acute respiratory failure; Translations: [Acute respiratory failure with hypoxia]65-30-6446HwwopjntQcjykginbvg; intervertebral disc disorders; other back problems (20 sources)Degeneration of lumbar intervertebral disc; Translations: [Other intervertebral disc degeneration, lumbar region]Onset: 11-13-2020 Resolved: 13-56-4508XgvkcmnTzsnhty and strains (1 source)Strain of other muscle(s) and tendon(s) at lower leg level, right leg, initial encounter; Translations: [STRAIN OTH MSC TEND LOW RT LEG INIT]Onset: 21-97-3835UajczfdmJktydnd disorders (20 sources)Thyroid nodule; Translations: [Nontoxic single thyroid nodule]Onset: 555289-02-8742PamigovUqqbqycppzbi (17 sources)Patient encounter gaxfaa04-77-1612 Past or Other Problems Problem ClassificationProblemDateDocumented DateEpisodic/ChronicBiliary tract disease (7 sources)Cholelithiasis without obstruction; Translations: [Calculus of gallbladder without cholecystitis without obstruction]Onset: 07-17-2022 67-87-9229XzzrscizTonifpimh and vision defects (16 sources)Diplopia; Translations: [Diplopia]Onset: 09-15-2023 Resolved: 63-83-7864KyuijcuoLtewqhscrfleo of surgical procedures or medical care (20 sources)Wound discharge; Translations: [Other complications of procedures, not elsewhere classified, initial encounter]Onset: 07-17-2022 Resolved: 708516-35-6877XlqwydtyEomkoigyjg and other anemia (20 sources)Iron deficiency anemia; Translations: [Other iron deficiency anemias]Onset: 466281-88-8219SsuwocwhBpoffhyk of mouth; excluding dental (20 sources)Lesion of salivary gland; Translations: [Disease of salivary gland, unspecified]Onset: 07-17-2022 Resolved: 429765-15-0127VjbgjmmyG Codes: Fall (15 sources)Fall; Translations: [Unspecified fall, initial encounter]Onset: 09-15-2023 Resolved: 068889-13-9135DhqkthzoFjbmz or threatened labor (9 sources)Finding of uterine contractions; Translations: [False labor, unspecified]Onset: 07-21-2018 Resolved: 992392-82-8596DhinbdolWbwfiazdhs disorders (11 sources)Gastroesophageal reflux disease; Translations: [Gastro-esophageal reflux disease without esophagitis]Onset: 11-12-2021 Resolved: 997385-05-3109XwuqwakGsjxy and electrolyte disorders (2 sources)Dehydration; Translations: [Dehydration]Onset: 520472-09-7909 EpisodicFracture of upper limb (15 sources)Fracture of radius AND ulna; Translations: [Unspecified fracture of unspecified forearm, initial encounter for closed fracture]Onset: 09-15-2023 Resolved: 451949-02-4148GcapinzaZzonvkphbnjb complicating ; childbirth and the puerperium (2 sources)Mild pre-eclampsia; Translations: [Mild to moderate pre-eclampsia, unspecified trimester]Onset: 09-08-2015 Resolved: 515654-56-2119IwlbvlkmFvtzkyq and fatigue (20 sources)Fatigue; Translations: [Other fatigue]Onset: EpisodicMood disorders (7 sources)Mood disordersOnset: Other acquired deformities (7 sources)Spondylolisthesis; Translations: [Spondylolisthesis, site unspecified]Onset: 913886-82-9368ZwxykaanQqbfn acquired deformities (7 sources)Lumbar spondylolisthesis; Translations: [Spondylolisthesis, lumbar region]Onset: 695958-62-2885JyweonawOrozd complications of ; puerperium affecting management of mother (2 sources)Continuing after intrauterine of twin fetus; Translations: [, twin with loss of one fetus]Onset: 03-20-2015 13-56-3872JbyvhzatGlmli complications of ; puerperium affecting management of mother (2 sources)Retained products of conception; Translations: [Retained placenta without hemorrhage]Onset: 09-08-2015 Resolved: 688214-48-7887VmkocogmBxedg ear and sense organ disorders (15 sources)Otitis externa; Translations: [Unspecified otitis externa, unspecified ear]Onset: 09-15-2023 Resolved: 293107-84-2508CtntyncSojpf eye disorders (14 sources)Monocular esotropia, left eye; Translations: [Monocular esotropia] Onset: 11-12-2021 Resolved: 15-75-8912LajbskrbLnszd eye disorders (20 sources)Abducens nerve palsy; Translations: [Sixth [abducent] nerve palsy, left eye]Onset: 09-15-2023 Resolved: 203784-47-0909LdpgsdmnIhnlk female genital disorders (10 sources)History of gynecological disorder; Translations: [Personal history of other diseases of the female genital tract]Onset: 10-12-2023 Resolved: 453750-72-5801EzluwdpuGitjz gastrointestinal disorders (17 sources)Abdominal bloating; Translations: [Abdominal distension (gaseous)] Onset: 590145-83-4143KcgimytnYrnkh gastrointestinal disorders (17 sources)Dysphagia; Translations: [Dysphagia, unspecified]Onset: 09-17-2023 45-20-7466UsaawnbvZpmxk liver diseases (20 sources)Increased creatine kinase level; Translations: [Abnormal levels of other serum enzymes]Onset: 347882-85-4797RddmddqbCfxvi lower respiratory disease (14 sources)Hypoxemia; Translations: [Hypoxemia]Onset: 09-15-2023 Resolved: 643977-23-5672HrzngsiqJxxlx lower respiratory disease (11 sources)Viral respiratory infection; Translations: [Other specified respiratory disorders]Onset: 09-15-2023 Resolved: 542592-69-3819TpxdjupxYmkaf lower respiratory disease (20 sources)Dyspnea; Translations: [Shortness of breath]Onset: 08-03-2023 EpisodicOther nervous system disorders (15 sources)Postoperative pain ; Translations: [Other acute postprocedural pain] Onset: 09-15-2023 Resolved: 597373-18-2005SzjutcrnLhcsi nutritional; endocrine; and metabolic disorders (17 sources)Metabolic syndrome X; Translations: [Metabolic syndrome]Onset: 11-12-2021 Resolved: 852973-17-4011ViwovabKpquz nutritional; endocrine; and metabolic disorders (15 sources)Morbid obesity; Translations: [Morbid (severe) obesity due to excess calories]Onset: 09-15-2023 Resolved: 474526-26-1465WamezcrTjupr nutritional; endocrine; and metabolic disorders (4 sources)Weight increased; Translations: [Abnormal weight gain]Onset: 776088-27-6365TyetvmfxAzpgw nutritional; endocrine; and metabolic disorders (1 source)Weight decreased; Translations: [Abnormal weight loss]Onset: 837766-37-9182CibkujltToeng screening for suspected conditions (not mental disorders or infectious disease) (20 sources)Increased glucose level; Translations: [Other abnormal glucose] Onset: 976354-55-4679MsjdsydoAiituondksscnb and other problems of amniotic cavity (9 sources)Premature rupture of membranes; Translations: [Premature rupture of membranes, unspecified as to length of time between rupture and onset of labor, unspecified weeks of gestation]Onset: 08-02-2018 Resolved: 233858-12-2086RvaqzswiQuuaorle codes; unclassified (20 sources)Obstructive sleep apnea syndrome; Translations: [Obstructive sleep apnea (adult) (pediatric)]Onset: 11-12-2021 Resolved: 62-09-1432YiehgwsGgtgyepy codes; unclassified (2 sources)Gestation period, 36 weeks; Translations: [36 weeks gestation of ]Onset: 09-08-2015 Resolved: 280483-53-7603MvixifimOvqw and subcutaneous tissue infections (7 sources)Cellulitis of face; Translations: [Cellulitis of face]Onset: 820120-66-0945EvsdwyoyQnydtsvsovy; intervertebral disc disorders; other back problems (20 sources)Radiculopathy, lumbar region; Translations: [Sciatica]Onset: 11-13-2020 Resolved: 00-26-6222FgyssebdOlkmpdz disorders (3 sources)Mass of thyroid gland; Translations: [Disorder of thyroid, unspecified]Onset: 868086-67-2256LzmwvoeyCacwqub tract infections (15 sources)Urinary tract infectious disease; Translations: [Urinary tract infection, site not specified]Onset: 09-15-2023 Resolved: 907259-87-8302OadrtzcuNsogo infection (17 sources)Viral disease; Translations: [Viral infection, unspecified]Onset: 09-15-2023 Resolved: 359544-44-2175Rrlasxhe Results Test NameValueInterpretationReference RangeFacilityPAP 861413ry 77-07-0231GPS AptimaNegativeInvalid Interpretation CodeNegativeGood Samaritan Hospital Comment on above:Order Comment: do not cancel may be coming from the office. [email or web address] 12/27/2024 06:03:03 ESTResult Comment: This nucleic acid amplification test detects fourteen high-risk HPV types (16,18,31,33,35,39,45,51,52,56,58,59,66,68) without differentiation. Performed at: [facility] [place] [address], [place] [id number] MD Cade Simms Performed at: =[facility] [place] [address], [place] [id number] MD Cade SimmsPerformed By: #### [id number] #### [facility] [address] [place], [place] [address]PCK [id number] Interpretation CodeGood Samaritan HospitalComment on above:Order Comment: do not cancel may be coming from the office. [email or web address] 12/27/2024 06:03:03 ESTResult Comment: TESTS RESULT FLAG UNITS REF RANGE LAB Clinician Provided Cytology Information Source.............Endocervix No. of containers..01 ThinPrep Vial DIAGNOSIS: 01 NEGATIVE FOR INTRAEPITHELIAL LESION OR MALIGNANCY. Specimen adequacy: 01 Satisfactory for evaluation. Endocervical and/or squamous metaplastic cells (endocervical component) are present. Performed by: Darshan Puente Rotary Dump Operator (ASCP) . 01 Note: Note 01 The [...] ThinPrep(R) pap test was interpreted using the Glaukos(R) Genius(TM) Cervical Algorithm whole slide imaging system. HPV Genotype Reflex Note 01 Criteria not met, HPV Genotype not performed. FLAG LEGEND: L-Low Normal,H-High Normal,LL-Alert Low,HH-Alert High <-Panic Low,>-Panic High,A-Abnormal,AA-Critical Abnormal Performed at: 01 [facility] [address] [id number] Demi Mohamud MD, Jqbhzyqhg By: #### [id number] #### [facility] [address], [place] [address]Zomqvj Medicine Office/Clinic Noteon 98-53-2855Ronaqj Medicine Office/Clinic NoteFami Medicine Office/Clinic Note Chief [...] masses. Pap obtained Neurologic: Grossly normal Skin: [place], moist, no tenting Lymph Nodes: No cervical [...] day four, # 2 tab(s),Refills(s) 1, Pharmacy: [id number], 161, cm, 12/26/24 16:59:00 EST, Height/Length Dosing, 114.8, kg, 12/26/24 16:58:00 EST, Weight Dosing E&M of Est. Patient High 40-54 Min 80184 MA Mamm Screen w/CAD if perf and 3D Woo PAP 114879 w/ HPV and Genotype rflx 2. Cervical cancer screening (Z12.4: Encounter for screening for malignant neoplasm of cervix) pap obtained Ordered: fluconazole, 150 mg = 1 tab(s), Oral, Once, take 1 tab on day one and 1 tabon day four, # 2 tab(s),Refills(s) 1, Pharmacy: [facility] #[id number], 161, cm, 12/26/24 16:59:00 EST, Height/Length Dosing, 114.8, kg, 12/26/24 16:58:00 EST, Weight Dosing E&M of Est. Patient High 40-54 Min 67656 MA Mamm Screen w/CAD if perf and 3D Woo PAP [id number] w/ HPV and Genotype rflx 3. Breast cancer screening (Z12.39: Encounter for other screening for malignant neoplasm of breast) will order mammogram Ordered: fluconazole, 150 mg = 1 tab(s), Oral, Once, take 1 tab on day one and 1 tabon day four, # 2 tab(s),Refills(s) 1, Pharmacy: [facility]/pharmacy #[id number], 161, cm, 12/26/24 16:59:00 EST, Height/Length Dosing, 114.8, kg, 12/26/24 16:58:00 EST, Weight Dosing E&M of Est. Patient High 40-54 Min 54198 MA Mamm Screen w/CAD if perf and 3D Woo PAP [id number] w/ HPV and Genotype rflx 4. Vaginal yeast infection (B37.31: Acute candidiasis of vulva and vagina) thick white vaginal discharge noted on exam. will send diflucan Ordered: fluconazole, 150 mg = 1 tab(s), Oral, Once, take 1 tab on day one and 1 tabon day four, # 2 tab(s),Refills(s) 1, Pharmacy: [facility]/pharmacy #[id number], 161, cm, 12/26/24 16:59:00 EST, Height/Length Dosing, 114.8, kg, 12/26/24 16:58:00 EST, Weight Dosing E&M of Est. Patient High 40-54 Min 77215 Orders: albuterol, See Instructions, 18 EA, Refill(s) 0, INHALE 2 PUFFS BY MOUTH EVERY 4 HOURS NEEDED FOR WHEEZING, [id number], 161, cm, 09/04/24 16:11:00 EDT, Height/Length Dosing, [...] (09/05/2023), Esophagogastroduodenoscopy(09/05/2023), A (more content not included)...Normal [facility] HospitalComment on above:Result Comment: Electronically Signed By: Cleo Hassan\.ariel\Date and Time Signed: 12/26/24 17:31 ESTPAP [id number] 45-33-4608Tcoshuedcbcir Body SiteENDOCERVIXNormalGood Samaritan HospitalComment on above:Order Comment: do not cancel may be coming from the office. [email or web address] 12/27/2024 06:03:03 ESTPerformed By: #### [id number] #### [facility] [address], [place] [address]GYJ w/ Auto Diffon 83-06-4336Jwypsdcq Absolute0.1 E9/LNormal 0.0-0.2[facility] CenterComment on above:Performed By: #### [id number] #### [facility] [address], [place] [address]Xjryoiucq/100 WBC (Bld)0.6 %Normal0.0-2.0[facility] HospitalComment on above:Performed By: #### [id number] #### [facility] [address], [place] [address]Mra Absolute0.4 E9/LNormal0.0-0.5[facility] Comment on above:Performed By: #### [id number] #### [facility] [address], [place] [address]Zmvuypranmz/100 WBC (Bld)3.9 %Normal0.0-8.0[facility] HospitalComment on above:Performed By: #### [id number] #### [facility] [address], [place] [address]Kjxntgbhyju distribution width (RBC) [Ratio]17.6 %High10.9-14.2 [facility] HospitalComment on above:Performed By: #### [id number] #### [facility] [address] [place], [place] [address]Uccsfdgucb (Bld) [Volume fraction]36.6 %Fkufkh55.0-46.0[facility] HospitalComment on above:Performed By: #### [id number] #### [facility] [address], [place] [address]Tcccjvqqmh (Bld) [Mass/Vol]11.4 g/dLLow12.0-16.0[facility] HospitalComment on above:Performed By: #### [id number] #### [facility] [address] [place] [address]Cjtok Absolute3.5 E9/LNormal1.0-4.0[facility] Comment on above:Performed By: #### [id number] #### [facility] [address] [place] [address]Mzpekubvvon/100 WBC (Bld)34.5 %Oenfbq54.0-50.0[facility] HospitalComment on above:Performed By: #### [id number] #### [facility] [address] [place] [address]ETA (RBC) [Entitic mass]24.8 pgLow27.0-34.0[facility] HospitalComment on above:Performed By: #### [id number] #### [facility] [address], [place] [address]XDPW (RBC) [Mass/Vol]31.1 g/dLLow31.4-36.0[facility] HospitalComment on above:Performed By: #### [id number] #### [facility] [address], [place] [address]KTE (RBC) [Entitic vol]79.9 fLLow80.0-100.0[facility] HospitalComment on above:Performed By: #### [id number] #### [facility] [address], [place] [address]Fupz Absolute0.5 E9/LNormal0.2-1.0[facility] Comment on above:Performed By: #### [id number] #### [facility] [address], [place] [address]Qcceudyoi/100 WBC (Bld)4.5 %Normal4.0-14.0[facility] HospitalComment on above:Performed By: #### [id number] #### [facility] [address], [place] [address]Nfkjho Absolute5.7 E9/LNormal2.0-7.5FSum[facility] Comment on above:Performed By: #### [id number] #### [facility] [address], [place] [address]Oukzlo Auto56.5 %Rikfsd95.0-75.0[facility] Comment on above:Performed By: #### [id number] #### [facility] [address], [place] [address]Ybaxvriu082.0 E9/MOyfusg583.0-500.0[facility] Comment on above:Performed By: #### [id number] #### [facility] [address], [place] [address]Pucvhxgk mean volume (Bld) [Entitic vol]8.6 fLNormal6.4-10.8 [facility] HospitalComment on above:Performed By: #### [id number] #### [facility] [address], [place] [address]FFV3.6 E12/LNormal4.3-5.9[facility] HospitalComment on above:Performed By: #### [id number] #### [facility] [address] [place] [address]DEM88.1 E9/LNormal4.0-11.0[facility] HospitalComment on above:Performed By: #### [id number] #### [facility] [address], [place] [address]AAKmg 04-90-0290Xdmaalz [Mass/Vol]4.1 g/dLNormal3.3-5.0[facility] HospitalComment on above:Performed By: #### [id number] #### [facility] [address], [place] [address]Crcseby/Globulin [Mass ratio]1.6 {ratio}Normal1.1-2.2FSumma Health Akron CampusComment on above:Performed By: #### [id number] #### [facility] [address], [place] [address]Wwg Phos72 Int._Unit/JHqkgnc77-95PbdifuGood Samaritan Hospital Comment on above:Performed By: #### [id number] #### [facility] [address], [place] [address]RGB[address] Int._Unit/LNormal6-46[facility] HospitalComment on above:Performed By: #### [id number] #### [facility] [address], [place] [address]Wwrxn gap [Moles/Vol]12 mmol/LNormal6-16[facility] HospitalComment on above:Performed By: #### [id number] #### [facility] [address], [place] [address]EMT75 Int._Unit/LNormal5-43[facility] HospitalComment on above:Performed By: #### [id number] #### [facility] [address], [place] [address]Ifwy Total0.3 mg/dLNormal0.0-1.1FSumma Health [facility] Comment on above:Performed By: #### [id number] #### [facility] [address], [place] [address]JVV/Creat Ratio16 No UhvrwScxxjo96-57VmyqifGood Samaritan HospitalComment on above:Performed By: #### [id number] #### [facility] [address], [place] [address]Dhjdblt [Mass/Vol]8.8 mg/dLLow8.9-11.1FSumma Health Akron CampusComment on above:Performed By: #### [id number] #### [facility] [address], [place] [address]Lnjgujjt [Moles/Vol]105 mmol/KPucigc136-174BvvcbwGood Samaritan HospitalComment on above:Performed By: #### [id number] #### [facility] [address], [place] [address]TD1 [Moles/Vol]24 mmol/RRxnykd92-92ZjnyhoGood Samaritan Hospital Comment on above:Performed By: #### [id number] #### [facility] [address], [place] [address]Voloiredhc [Mass/Vol]1.0 mg/dLNormal0.5-1.3FSumma Health Akron CampusComment on above:Performed By: #### [id number] #### [facility] [address], [place] [address]Iyayuilw (S) [Mass/Vol]2.5 g/dLNormal1.4-4.0[facility] HospitalComment on above:Performed By: #### [id number] #### [facility] [address], [place] [address]Mfchoyq [Mass/Vol]123 mg/bXMawjje07-101ZpygceGood Samaritan HospitalComment on above:Performed By: #### [id number] #### [facility] [address], [place] [address]Jhqvnjoiy [Moles/Vol]4.6 mmol/LNormal3.5-5.3FSumma Health Ak[facility] CampusComment on above:Performed By: #### [id number] #### [facility] [address], [place] [address]Hbegske [Mass/Vol]6.6 g/dLNormal6.0-7.8[facility] HospitalComment on above:Performed By: #### [id number] #### [facility] [address], [place] [address]Lhydfm [Moles/Vol]136 mmol/UUxvhtx739-649UjqesmGood Samaritan HospitalComment on above:Performed By: #### [id number] #### [facility] [address], [place] [address]Tqfh nitrogen [Mass/Vol]16 mg/dLNormal5-21[facility] HospitalComment on above:Performed By: #### [id number] #### [facility] [address], [place] [address]Bmbga Panelon 64-46-7434Ekztmdqnwaj [Mass/Vol]192 mg/dLNormal 120-200[facility] HospitalComment on above:Performed By: #### [id number] #### [facility] [address], [place] [address]Whquzqthfxf in HDL [Mass/Vol]47 mg/dLInvalid Interpretation CodeGood Samaritan HospitalComment on above:Result Comment: '>= 60 LOW RISK' '<= 40 HIGH RISK'Performed By: #### [id number] #### [facility] [facility] [address], [place] [address]Qbxkxjczxkd in LDL [Mass/Vol]131 mg/dLHigh<=129Good Samaritan HospitalComment on above:Performed By: #### [id number] #### [facility] [address], [place] [address]Opwaubmpmvi in VLDL [Mass/Vol]22 mg/dLNormal7-40Good Samaritan HospitalComment on above:Performed By: #### [id number] #### [facility] [address], [place] [address]Nbkcdjhktrqg [Mass/Vol]112 mg/dLNormal<=149Good Samaritan HospitalComment on above:Performed By: #### [id number] #### [facility] [address], [place] [address]DVAtc 72-41-5478LWB Qn3.26 m[IU]/LNormal0.34-5.60Good Samaritan HospitalComment on above:Performed By: #### [id number] #### [facility] [address], [place] [address]vWGBsc 84-28-8380oYQV43 mL/min/1.73 x1Xwluop>=59Good Samaritan HospitalComment on above:Performed By: #### [id number] #### [facility] [address], [place] [address]Rersochjzu Visit Summaryon 34-73-9350Lidfnwonuq Visit Summary Ambulatory Visit Summary MORRO MALONEY [...] 4:20 PM EST With: Cleo Hassan Where: [address] [address]- Medications What How Much When Instructions Unchanged [...] signed up for this yet, please contact [employer] at [phone] to get signed up today. Language Information Language assistance services are available as needed. [facility] Medicine Office/Clinic Noteon [id number] Medicine Office/Clinic NoteFagrafton state hospital Medicine Office/Clinic Note HPI Staff Pt is [...] Panel Est Preventative 40 to 64 years [address] Lipid Panel Thyroid Stimulating Hormone 2. History of thyroidectomy (E89.0: Postprocedural hypothyroidism) TSH ordered Ordered: CBC w/ Auto Diff Comprehensive Metabolic Panel Est Preventative 40 to 64 years [address] Lipid Panel Thyroid Stimulating Hormone 3. Iron deficiency anemia (D50.9: Iron deficiency anemia, unspecified) CBC ordered Ordered: CBC w/ Auto Diff Comprehensive Metabolic Panel Est Preventative 40 to 64 years [address]207 Lipid Panel Thyroid Stimulating Hormone 4. Screening for hypercholesterolemia (Z13.220: Encounter for screening for lipoid disorders) lipid panel ordered Ordered: CBC w/ Auto Diff Comprehensive Metabolic Panel Est Preventative 40 to 64 years [address] Lipid Panel Thyroid Stimulating Hormone 5. Generalized anxiety disorder (F41.1: Generalized anxiety disorder) pt has been seen by psych. feels she is not bipolar but has anxiety and depression. encouraged her to talk to me about buspar. will start buspar. Ordered: CBC w/ Auto Diff Comprehensive Metabolic Panel Est Preventative 40 to 64 years 66533 Lipid Panel Thyroid Stimulating Hormone 6. 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 needs refills on meds Ordered: CBC w/ Auto Diff Comprehensive Metabolic Panel Est Preventative 40 to 64 years [address]5849 Lipid Panel Thyroid Stimulating Hormone 7. BMI 40.0-44.9, adult (Z68.41: Body mass index [BMI] 40.0-44.9, adult) Ordered: CBC w/ Auto Diff Comprehensive Metabolic Panel Est Preventative 40 to 64 years 83128 Lipid Panel Thyroid Stimulating Hormone 8. Class 3 severe obesity due to excess calories with body mass index (BMI) of 40.0 to 44.9 in adult (E66.813: Obesity, class 3) see above Ordered: CBC w/ Auto Diff Comprehensive Metabolic Panel Est Preventative 40 to 64 years [address]704 Lipid Panel Thyroid Stimulating Hormone Follow-up No [...] 04/02/2020 Recorded SARS-CoV-2 (COVID-1 (more content not included)...German HospitalComment on above:Result Comment: Electronically Signed By: Cleo Hassan\Date and Time Signed: 11/28/24 17:10 EDTBMPon 20-98-4583Bwgya gap [Moles/Vol]13 mmol/L9 - 17 mmol/LBon Secours Mercy HealthCalcium [Mass/Vol]9.2 mg/dL8.6 - 10.4 mg/dLBon [facility] PrebleChloride [Moles/Vol]102 mmol/L98 - 107 mmol/LBon [facility] PrebleCO2 [Moles/Vol]22 mmol/L20 - 31 mmol/LBon [facility] PrebleCreatinine [Mass/Vol]1.0 mg/dLHigh0.5 - 0.9 mg/dLBon [facility] PrebleEst, Glom Filt Rate73- PINFBon Kettering Health PrebleComment on above: These results are not intended [...] secretion. Glucose [Mass/Vol]86 mg/dL70 - 99 mg/dLBon [facility] PrebleInterpretation and review of laboratory resultsAbnormalBon [facility] PreblePotassium [Moles/Vol]4.9 mmol/L3.7 - 5.3 mmol/LBon [facility] PrebleSodium [Moles/Vol] 137 mmol/L135 - 144 mmol/LBon [facility] PrebleUrea nitrogen [Mass/Vol]14 mg/dL6 - 20 mg/dLBon [facility] PrebleBasic Metabolic Profon 43-96-5340Wmleo gap [Moles/Vol]13 mmol/LNormal9-17[facility] Medical CenterComment on above: Performed By: #### BMP, LIVP, CDP, LIP, HCG #### [facility] [address] [place] [address] Court Usher: JOO De La Garzaalcium [Mass/Vol]9.2 mg/dLNormal8.6-10.4[facility] Medical CenterCommclaren bay region on above:Performed By: #### BMP, LIVP, CDP, LIP, HCG #### [facility] [address] [place] [address] Court Usher: JOO De La Garzahloride [Moles/Vol]102 mmol/DKibsfv98-659SkuckLouis Stokes Cleveland Va Medical CenterComment on above:Performed By: #### BMP, LIVP, CDP, LIP, HCG #### [facility] [address] [place] [address] Court Usher: JOO De La GarzaO2 [Moles/Vol]22 mmol/XJppnrk55-74ImmfwLouis Stokes Cleveland Va Medical CenterComment on above:Performed By: #### BMP, LIVP, CDP, LIP, HCG #### [facility] [address] [place] [id number] Usher: JOO De La Garzareatinine [Mass/Vol]1.0 mg/dLHigh0.5-0.9[facility] Medical CenterComment on above:Performed By: #### BMP, LIVP, CDP, LIP, HCG #### [facility] [address] [place] [id number] Usher: Laith Stearns MDGFR/1.73 sq M.predicted among non-blacks MDRD (S/P/Bld) [Vol rate/Area]73 mL/min/{1.73_m2}Normal>60[facility] Comment on above:Result Comment: These results are [...] #### BMP, LIVP, CDP, LIP, HCG #### [facility] [address] [place] [address] Court Usher: Laith Stearns MDGlucose [Mass/Vol]86 mg/xTEwynio43-19Avrtl Willard HospitalComment on above:Performed By: #### BMP, LIVP, CDP, LIP, HCG #### [facility] [address] [place] [id number] Usher: AUDELIA De La Garzaotassium [Moles/Vol]4.9 mmol/LNormal3.7-5.3MChillicothe HospitalComment on above:Performed By: #### BMP, LIVP, CDP, LIP, HCG #### [facility] [address] [place] [id number] Usher: JAROD De La Garzaodium [Moles/Vol]137 mmol/GLbgikr542-904RpimaLouis Stokes Cleveland Va Medical CenterComment on above:Performed By: #### BMP, LIVP, CDP, LIP, HCG #### [facility] [address] [place] [address] Court Usher: Laith Stearns MDUrea nitrogen [Mass/Vol]14 mg/dLNormal6-20[facility] Medical CenterComment on above:Performed By: #### BMP, LIVP, CDP, LIP, HCG #### [facility] [address] [place] [id number] Usher: Laith Stearns [facility] WATONGABC with Auto Differentialon 48-92-0726Lvyuyxomb (Bld) [#/Vol]0.07 10*3/uLBon Secours Mercy HealthBasophils/100 WBC [...] HealthImmature granulocytes/100 WBC (Bld)0 %0 - 5 %[facility] Interpretation and review of laboratory resultsAbnormalBon [facility] Lymphocytes/100 WBC (Bld)39 %15 - 40 %[facility] PortsmouthLymphocytes/100 WBC (Bld)3.33 %Bon [facility] CenterH (RBC) [Entitic mass]24.9 pgLow26.0 - 34.0 pgBon [facility] Medical CenterHC (RBC) [Mass/Vol]31 g/dL31.0 - 37.0 g/dLBon SecOhio State University Wexner Medical CenterV (RBC) [Entitic vol]80.4 fL80.0 - 100.0 fLNaval Medical Center PortsmouthMonocytes/100 WBC (Bld)8 %4 - 8 %[facility] Monocytes/100 WBC (Bld)0.71 %[facility] PortsmouthNeutrophils/100 WBC (Bld)47 %47 - 75 %[facility] PortsmouthPlatelet mean volume (Bld) [Entitic vol]10.1 fL6.0 - 12.0 fLBon [facility] PreblePlatelets (Bld) [#/Vol]337 10*3/uLBon [facility] PrebleRBC (Bld) [#/Vol]4.53 10*6/uL4.00 - 5.20 m/uLNaval Medical Center PortsmouthSegmented neutrophils/100 WBC (Bld)4.11 %[facility] PortsmouthWBC other (Bld) [#/Vol]8.7Bon [facility] SchoolCBC with Diffon 28-99-1449Xkk. Basophil0.07 k/uLNormal0.00-0.20[facility] Comment on above:Performed By: #### BMP, LIVP, CDP, LIP, HCG #### [facility] [address] [place] [address] Court Usher: Troy De La Garza.Imm.Granulocyte0.01 k/uLNormal0.00-0.30Mercy Hecla HospitalComment on above:Performed By: #### BMP, LIVP, CDP, LIP, HCG #### [facility] [address] [place] [address] Court Usher: Troy De La Garza.Neutrophil (Seg)4.11 k/uLNormal2.5-7.0[facility] Medical CenterComment on above:Performed By: #### BMP, LIVP, CDP, LIP, HCG #### [facility] [address] [place] [address] Court Usher: Laith Stearns MDBasophils/100 WBC (Bld)1 %Normal0-2MChillicothe HospitalComment on above:Performed By: #### BMP, LIVP, CDP, LIP, HCG #### [facility] [address] [place] [address] Court Usher: Laith Stearns MDEosinophils (Bld) [#/Vol]0.42 10*3/uLHigh0.00-0.40 [facility] Medical CenterComment on above:Performed By: #### BMP, LIVP, CDP, LIP, HCG #### [facility] [address] [place] [address] Court Usher: Laith Stearns MDEosinophils/100 WBC (Bld)5 %Normal0-5[facility] Medical CenterComment on above:Performed By: #### BMP, LIVP, CDP, LIP, HCG #### [facility] [address] [place] [address] Court Usher: Laith Stearns MDErythrocyte distribution width (RBC) [Ratio]16.5 % High12.1-15.2MChillicothe HospitalCommclaren bay region on above:Performed By: #### BMP, LIVP, CDP, LIP, HCG #### [facility] [address] [place] [address] Court Usher: Laith Stearns MDHematocrit (Bld) [Volume fraction]36.4 %Normal 36.0-46.0[facility] Medical CenterComment on above:Performed By: #### BMP, LIVP, CDP, LIP, HCG #### [facility] [address] [place] [address] Court Usher: Liath Stearns MDHemoglobin (Bld) [Mass/Vol]11.3 g/dLLow12.0-16.0 [facility] Medical CenterComment on above:Performed By: #### BMP, LIVP, CDP, LIP, HCG #### [facility] [address] [place] [address] Court Usher: Laith Stearns MDImmature granulocytes/100 WBC (Bld)0 %Normal0-5 [facility] Medical CenterComment on above:Performed By: #### BMP, LIVP, CDP, LIP, HCG #### [facility] [address] [place] [address] Court Usher: Laith Stearns MDLymphocytes (Bld) [#/Vol]3.33 10*3/uLNormal 1.00-4.80[facility] Medical CenterComment on above:Performed By: #### BMP, LIVP, CDP, LIP, HCG #### [facility] [address] [place] [address] Court Usher: Laith Stearns MDLymphocytes/100 WBC (Bld)39 %Hanxnj00-32GkdvvSt. Charles Hospitalment on above:Performed By: #### BMP, LIVP, CDP, LIP, HCG #### [facility] [address] [place] [address] Court Usher: JUAN De La GarzaCH (RBC) [Entitic mass]24.9 pgLow26.0-34.0[facility] Medical CenterComment on above:Performed By: #### BMP, LIVP, CDP, LIP, HCG #### [facility] [address] [place] [id number] Usher: JUAN De La GarzaCHC (RBC) [Mass/Vol]31.0 g/yIFmvtec41.0-37.0[facility] Medical CenterComment on above:Performed By: #### BMP, LIVP, CDP, LIP, HCG #### [facility] [address] [place] [id number] Usher: JUAN De La GarzaCV (RBC) [Entitic vol]80.4 rQOewxjf34.0-100.0 [facility] Medical CenterComment on above:Performed By: #### BMP, LIVP, CDP, LIP, HCG #### [facility] [address] [place] [address] Court Usher: JUAN De La Garzaonocytes (Bld) [#/Vol]0.71 10*3/uLNormal0.00-1.00 [facility] Medical CenterComment on above:Performed By: #### BMP, LIVP, CDP, LIP, HCG #### [facility] [address] [place] [address] Court Usher: JUAN De La Garzaonocytes/100 WBC (Bld)8 %Normal4-8[facility] Medical CenterComment on above:Performed By: #### BMP, LIVP, CDP, LIP, HCG #### [facility] [address] [place] [address] Court Usher: Laith Stearns MDNeutrophil (Seg)47 %Rjcqrh01-81DdrzcLouis Stokes Cleveland Va Medical CenterComment on above:Performed By: #### BMP, LIVP, CDP, LIP, HCG #### [facility] [address] [place] [address] Court Usher: AUDELIA De La Garzalatelet mean volume (Bld) [Entitic vol]10.1 fL Normal6.0-12.0[facility] Medical CenterComment on above:Performed By: #### BMP, LIVP, CDP, LIP, HCG #### [facility] [address] [place] [address] Court Usher: Ever De La Garza ([facility]) [#/Vol]337 10*3/nTCzehro660-020 [facility] CenterComment on above:Performed By: #### BMP, LIVP, CDP, LIP, HCG #### [facility] [address] [place] [address] Court Usher: MEENAKSHI De La Garza ([facility]) [#/Vol]4.53 10*6/uLNormal4.00-5.20[facility] Medical CenterComment on above:Performed By: #### BMP, LIVP, CDP, LIP, HCG #### [facility] [address] [place] [address] Court Usher: KIET De La Garza ([facility]) [#/Vol]8.7 10*3/uLNormal3.5-11.0[facility] Medical CenterComment on above:Performed By: #### BMP, LIVP, CDP, LIP, HCG #### [facility] [address] [place] [address] Court Usher: KAYLI De La Garza ABDOMEN PELVIS W IV CONTRASTon [id number] ABDOMEN PELVIS W IV CONTRASTEXAMINATION: CT ABDOMEN [...] Signed by: Yovani Oliveira MD 09/17/24 Final resultNormKindred Hospital Lima Abdomen and Pelvis W contrast Portia 09-17-2024 1. No acute process identified. 2. Mild fatty liver. 3. Prior cholecystectomy, appendectomy. 4. Pars defect L4 with grade 1 spondylolisthesis L4 on L5. [facility] RIS CONSOLIDATEDEXAMINATION: CT ABDOMEN PELVIS W IV [...] L4 on L5 with vacuum disc phenomena. [facility] CONSOLIDATEDAlfoYovani gutierrez MD - 09/17/[address]: [address] [...] with grade 1 spondylolisthesis L4 on L5. [facility] HospitalCarweez [facility] HospitalRadiology Study observation (narrative)[facility] HospitalSocialSci [facility] Abdomen and Pelvis W contrast IVOrdered By: Yovani Oliveira on 09-17-2024 [facility] Work Phone: HCL Qualitative, Serumon [id number] ( test) QlNegativeNEGATIVENaval Medical Center PortsmouthComment on above:Specimens with hCG levels near the threshold of the test (25 mIU/mL) may give a negative or indeterminate result. In such cases, another test should be performed with a new specimen in 48-72 hours. If early is suspected clinically in this setting, correlation with quantitative serum b-hCG level is suggested. [employer] has confirmed the use of plasma for this test. This has not been cleared or approved by the U.S. Food and Drug Administration. The FDA has determined that such clearance is not necessary. [facility] HospitalSocialSci [facility] HospitalHCG Screen, Bloodon [id number] Screen, BloodNegative NormalNEGMercy Jefferson Comprehensive Health CenterCommclaren bay region on above:Result Comment: Specimens with hCG levels near the threshold of the test (25 mIU/mL) may give a negative or indeterminate result. In such cases, another test should be performed with a new specimen in 48-72 hours. If early is suspected clinically in this setting, correlation with quantitative serum b-hCG level is suggested. [employer] has confirmed the use of plasma for this test. This has not been cleared or approved by the U.S. Food and Drug Administration. The FDA has determined that such clearance is not necessary.Performed By: #### BMP, LIVP, CDP, LIP, HCG #### [facility] [address] [place] [address] Court Usher: Laith Stearns MDHepatic Function Panelon [id number] [Mass/Vol]4.1 g/dL3.5 - 5.2 g/dLBon SecWaldo Hospitaly HealthAlbumin/Globulin [Mass ratio]1.6 {ratio}1.0 - 2.5Bon Secours [facility] Medical Centery HealthALP [Catalytic activity/Vol]97 U/L35 - 104 U/LBon Secours [facility] Medical Centery HealthALT [Catalytic activity/Vol]11 U/L5 - 33 U/LBon Secours [facility] Centery HealthAST [Catalytic activity/Vol]19 U/LNINF - 32 U/LBon Secours [facility] Centery HealthBilirubin [Mass/Vol]0.6 mg/dL0.3 - 1.2 mg/dLBon SecWaldo Hospitaly HealthBilirubin.direct [Mass/Vol]0.2 mg/dLNINF - 0.3 mg/dLBon SecWaldo Hospitaly HealthBilirubin.indirect [Mass/Vol]0.4 mg/dL0.0 - 1.0 mg/dLBon Secours [facility] Medical Centery HealthGlobulin (S) [Mass/Vol]2.6 g/dL1.5 - 3.8 g/dLBon SecGlenwood Regional Medical Center HealthProtein [Mass/Vol]6.7 g/dL6.4 - 8.3 g/dLBon [facility] HealthLipaseon 58-34-0730Yoaqtc [Catalytic activity/Vol]48 U/L13 - 60 U/LBon Kettering Health PrebleLipase [Catalytic activity/Vol]48 U/OUnxnol87-20JiiqmLouis [facility] Comment on above:Performed By: #### BMP, LIVP, CDP, LIP, HCG #### [facility] [address] [place] [address] Court Usher: Laith Stearns MDLiver Profileon [id number] [Mass/Vol]4.1 g/dLNormal3.5-5.2MChillicothe HospitalComment on above:Performed By: #### BMP, LIVP, CDP, LIP, HCG #### [facility] [address] [place] [address] Court Usher: Laith Stearns MDAlbumin/Glob Ratio1.1Rgpoak5.0-2.5[facility] CenterCommclaren bay region on above:Performed By: #### BMP, LIVP, CDP, LIP, HCG #### [facility] [address] [place] [address] Court Usher: David De La Garzaline Phos97 U/DNbicvi59-324WxyruThe Jewish Hospital on above:Performed By: #### BMP, LIVP, CDP, LIP, HCG #### [facility] [address] [place] [address] Court Usher: Laith Stearns MDALT [Catalytic activity/Vol]11 U/LNormal5-33[facility] on above:Performed By: #### BMP, LIVP, CDP, LIP, HCG #### [facility] [address] [place] [address] Court Usher: Laith Stearns MDAST [Catalytic activity/Vol]19 U/LNormal<32[facility] on above:Performed By: #### BMP, LIVP, CDP, LIP, HCG #### [facility] [address] [place] [address] Court Usher: Laith Stearns MDBilirubin [Mass/Vol]0.6 mg/dLNormal0.3-1.2MChillicothe HospitalCommclaren bay region on above:Performed By: #### BMP, LIVP, CDP, LIP, HCG #### [facility] [address] [place] [id number] Usher: Arnold De La Garzairubin, Indirect0.4 mg/dLNormal0.0-1.0[facility] CenterComment on above:Performed By: #### BMP, LIVP, CDP, LIP, HCG #### [facility] [address] [place] [address] Court Usher: Laith Stearns MDBilirubin.indirect [Mass/Vol]0.2 mg/dLNormal<0.3 [facility] CenterComment on above:Performed By: #### BMP, LIVP, CDP, LIP, HCG #### [facility] [address] [place] [address] Court Usher: Laith Stearns MDGlobulin (S) [Mass/Vol]2.6 g/dLNormal1.5-3.8[facility] CenterCommclaren bay region on above:Performed By: #### BMP, LIVP, CDP, LIP, HCG #### [facility] [address] [place] [address] Court Usher: AUDELIA De La Garzarotein [Mass/Vol]6.7 g/dLNormal6.4-8.3MChillicothe HospitalComment on above:Performed By: #### BMP, LIVP, CDP, LIP, HCG #### [facility] [address] [place] [id number] Usher: Laith Stearns MDNo Panel Informationon 45-25-3877Nkl SecBarney Children's Medical CenterUrinalysison 96-65-7696Prljsgdfz Ql (U)NegativeNEGATIVEBon [facility]ours [facility] HealthClarity (U)ClearClearBon Sec[facility] HealthColor (U)YellowYellowBon [facility]ours [facility] HealthCommentBon [facility] HealthGlucose Test strip (U) [Mass/Vol]NegativeNEGATIVE mg/dLBon Secours [facility] Memorial HospitalHemoglobin Auto test strip Ql (U)NegativeNEGATIVEBon SecGlenwood Regional Medical Center HealthInterpretation and review of laboratory resultsAbnormalBon Secours [facility] HealthKetones (U) [Mass/Vol] NegativeNEGATIVE mg/dLBon Secours [facility] Memorial HospitalLeukocyte esterase Test strip Ql (U)NegativeNEGATIVEBon [facility] PrebleNitrite Ql (U)NegativeNEGATIVEBon [facility] PreblepH (U)7 [pH]5.0 - 8.0Bon [facility] HealthProtein (U) [Mass/Vol]TRACEAbnormalNEGATIVE mg/dLBon [facility] Health PrebleSpecific gravity (U) [Rel density]1.0151.005 - 1.030Bon [facility] Health PrebleUrobilinogen Qn (U) Normal0.0 - 1.0 EU/dLBon [facility] PrebleBon [facility] Health PrebleUrinalysis, Routineon [id number], SemiQt,UrNegativeNormalWilson Memorial Hospital Comment on above:Performed By: #### UA #### [facility] [address] [place], [place] [id number] Court Usher: Iliana De La Garza, UrineNegativeHolzer HospitalComment on above:Performed By: #### UA #### [facility] [address] [place] [address] Court Usher: JOO De La Garzalarity ()ClearSaint Francis Medical CenteralCMercy Health St. [facility] Comment on above:Performed By: #### UA #### [facility] [address] [place], [place] [address] Court Usher: JOO De La Garzaolor (U)YellowNoWayne Hospital Comment on above:Performed By: #### UA #### [facility] [address] [facility] [place] [address] Court Usher: JOO De La GarzaommentNoMcCullough-Hyde Memorial HospitalComment on above:Performed By: #### UA #### [facility] [address] [place] [address] Court Usher: Laith Stearns MDGlucose Ql (U)NegativeNormalWilson Memorial HospitalComment on above:Performed By: #### UA #### [facility] [address] [place] [address] Court Usher: Laith Stearns MDKetones Ql (U)NegativeNormalNEGLouis Stokes Cleveland Va Medical CenterComment on above:Performed By: #### UA #### [facility] [address] [place], [place] [id number] Court Usher: Laith Stearns MDLeukocyte esterase Test strip Ql (U)NegativeNormal NEGLouis Stokes Cleveland Va Medical CenterComment on above:Performed By: #### UA #### [facility] [address] [place] [address] Court Usher: Danilo De La Garzatrite,UrNegativeNormSouthview Medical Center Comment on above:Performed By: #### UA #### [facility] [address] [place] [address] Court Usher: AUDELIA De La Garza,Ur7.4Xlcffu2.0-8.0[facility] CenterComment on above:Performed By: #### UA #### [facility] [address] [place] [id number] Usher: Kenroy De La Garza Ql (U)TRACEAbnormalNEGLouis Stokes Cleveland Va Medical CenterComment on above:Performed By: #### UA #### [facility] [address] [place] [id number] Usher: JAROD De La Garzapec. [place],Ur1.833Fpwobq9.005-1.030[facility] CenterComment on above:Performed By: #### UA #### [facility] [address] [place] [address] Court Usher: Laith Stearns MDUrobilinogen,UrNormalNormal0.0-1.0[facility] CenterComment on above:Performed By: #### UA #### [facility] [address] [place] [address] Court Usher: JOSE F De La Garza Pelvis Non-OB Completeon [id number] Pelvis Non-OB CompleteExam Date/Time: 09/05/2024 14:57 EDT [...] Brandon Walls MD Transcribed by: JEET Technologist: ChandaGood Samaritan HospitalUS Transvaginal Non-OBon [id number] Transvaginal Non-OBExam Date/Time: 09/05/2024 14:57 EDT Reason for Exam: R10.2;Pelvic pain Report Review report ultrasound pelvis non-OB, for report of ultrasound transvaginal. Technical Comments: Ordering Provider: COOKIE, KEMAR FINAL REPORT Dictated: 09/05/2024 3:02 pm Brandon Walls MD Signed (Electronic Signature): 09/05/2024 3:02 pm Signed by: Brandon Walls MD Transcribed by: JEET Technologist: [facility] WestAmbulatory Visit Summaryon [id number] Visit SummaryAmbulatory Visit Summary MORRO MALONEY :1985 [...] pain, No, Pelvic pain Abdominal pain, pp_set_radiology_subspecialty, [facility] Medications What How Much When [...] Follow these instructions at home: ??? Take pfxj-faf-ccctkji and prescription medicines only as told by [...] provider. Document Revised: 06/16/2021 Document Reviewed: 06/16/2021 [employer] Patient Education ??? 2023 [employer] Patient Portal You may access all of your results and other medical record information on our secure patient portal. (more content not included)...German HospitalFagrafton state hospital Medicine Office/Clinic Noteon 22-28-9027Cmlfzx Medicine Office/Clinic NoteFami Medicine Office/Clinic Note Chief [...] data available Patient Education Pelvic Pain, Female, Vdnk-xi-Zhez Problem List/Past Medical History Ongoing Asthma Bloating [...] Recorded Lab Results Ambulatory (more content not included)...[facility] Comment on above:Result Comment: Electronically Signed By: KEMAR GARY CNP\Date and Time Signed: 09/04/24 16:27 EDTBasic Metabolic Panelon 06-11-2024 Anion gap [Moles/Vol]9 mmol/L9 - 17 mmol/LBon Camille Orozco HealthCalcium [Mass/Vol]8.9 mg/dL8.6 - 10.4 mg/dLBon [facility] PrebleChloride [Moles/Vol] 101 mmol/L98 - 107 mmol/LBon [facility] PrebleCO2 [Moles/Vol]26 mmol/L20 - 31 mmol/LBon [facility] PrebleCreatinine [Mass/Vol]1.1 mg/dLHigh0.5 - 0.9 mg/dL Bon [facility] PrebleEst, Glom Filt Rate66- PINFBon [facility] Comment on above: These results are not [...] secretion. Glucose [Mass/Vol]87 mg/dL70 - 99 mg/dLBon [facility] PrebleInterpretation and review of laboratory resultsAbnormalBon [facility] PreblePotassium [Moles/Vol]4.5 mmol/L3.7 - 5.3 mmol/LBon [facility] PrebleSodium [Moles/Vol] 136 mmol/L135 - 144 mmol/LBon [facility] PrebleUrea nitrogen [Mass/Vol]13 mg/dL6 - 20 mg/dLBon [facility] PrebleBasic Metabolic Profon 48-48-7589Efzmz gap [Moles/Vol]9 mmol/LNormal9-17[facility] Va Medical CenterComment on above: Performed By: #### FEBC #### [facility] [address] [place] [address] Court Usher: Jair Ernst MD #### FÉLIX BMP, MG, CDP #### [facility] [address] [place] [address] Court Usher: JOO De La Garzaalcium [Mass/Vol]8.9 mg/dLNormal8.6-10.4[facility] Medical CenterComment on above:Performed By: #### FEBC #### [place] [address] [place], [place] [id number] Court Usher: Jair Ernst MD #### TROPI, BMP, MG, CDP #### [facility] [address] [place] [address] Court Usher: JOO De La Garzahloride [Moles/Vol]101 mmol/EOxlmna31-553ZhoflLouis Stokes Cleveland Va Medical CenterComment on above:Performed By: #### FEBC #### [address] [address] [address] Usher: Jair Ernst MD #### TROPI, BMP, MG, CDP #### [facility] [address] [place] [address] Court Usher: JOO De La GarzaO2 [Moles/Vol]26 mmol/IZkownb42-95AihroLouis Stokes Cleveland Va Medical CenterComment on above:Performed By: #### CANDIE #### [address] [address] [address] Usher: Jair Ernst MD #### TROPRobin, BMP, MG, CDP #### [facility] [address] [place] [address] Court Usher: JOO De La Garzareatinine [Mass/Vol]1.1 mg/dLHigh0.5-0.9[facility] Medical CenterComment on above:Performed By: #### CANDIE #### [id number] Usher: Jair Ernst MD #### TROPI, BMP, MG, CDP #### [facility] [address] [place] [address] Court Usher: Laith Stearns MDGFR/1.73 sq M.predicted among non-blacks MDRD (S/P/Bld) [Vol rate/Area]66 mL/min/{1.73_m2}Normal>60[facility] Comment on above:Result Comment: These results are [...] renal tubular secretion.Performed By: #### FEBC #### [id number] Usher: Jair Ernst MD #### TROPI, BMP, MG, CDP #### [facility] [address] [place] [address] Court Usher: Laith Stearns MDGlucose [Mass/Vol]87 mg/gWZqaban74-02SfeygChillicothe HospitalComment on above:Performed By: #### FEBC #### [address] [address] [address] Usher: Jair Ernst MD #### TROPI, BMP, MG, CDP #### [facility] [address] [place] [address] Court Usher: AUDELIA De La Garzaotassium [Moles/Vol]4.5 mmol/LNormal3.7-5.3[facility] Health CenterComment on above:Performed By: #### FEBC #### [id number] Usher: Jair Ernst MD #### TROPI, BMP, MG, CDP #### [facility] [address] [place] [address] Court Usher: JAROD De La Garzaodium [Moles/Vol]136 mmol/DBnumry556-340Htqlj [facility] Comprehensive Health CenterComment on above:Performed By: #### FEBC #### [id number] Usher: Jair Ernst MD #### TROPI, BMP, MG, CDP #### [facility] [address] [place] [address] Court Usher: Laith Stearns MDUrea nitrogen [Mass/Vol]13 mg/dLNormal6-20[facility] Medical CenterComment on above:Performed By: #### FEBC #### [facility] [address] [place] [address] Court Usher: Jair Ernst MD #### TROPI, BMP, MG, CDP #### [facility] [address] [place] [address] Court Usher: Laith Stearns [facility] with Auto Differentialon [id number] (Bld) [#/Vol]0.08 10*3/uLBon Secours Mercy HealthBasophils/100 WBC (Bld)1 %0 - 2 %[facility] HospitalEosinophils (Bld) [#/Vol]0.31 10*3/uLBon [facility]ours [facility] [place] [facility] HospitalEosinophils/100 WBC (Bld)3 %0 - 5 %[facility] HealthErythrocyte distribution width (RBC) [Ratio]19.1 %High12.1 - 15.2 %[facility] Hematocrit (Bld) [Volume fraction]36.8 %36.0 - 46.0 %[facility] Hemoglobin (Bld) [Mass/Vol]11.4 g/dLLow12.0 - 16.0 g/dLBon [facility]ours [facility] Health Immature granulocytes (Bld) [#/Vol]0.01 10*3/uLBon [facility]ours [facility] [place] [facility] HospitalImmature granulocytes/100 WBC (Bld)0 %0 - 5 %[facility] HealthInterpretation and review of laboratory resultsAbnormalBon Secours Mercy HealthLymphocytes/100 WBC (Bld)30 %15 - 40 %[facility] HealthLymphocytes/100 WBC (Bld)2.85 %[facility] HospitalMCH (RBC) [Entitic mass]24.5 pgLow26.0 - 34.0 pgBon [facility] PrebleMCHC (RBC) [Mass/Vol]31 g/dL31.0 - 37.0 g/dLBon [facility] MCV (RBC) [Entitic vol]79 fLLow80.0 - 100.0 fLNaval Medical Center Portsmouth Monocytes/100 WBC (Bld)7 %4 - 8 %[facility] PortsmouthMonocytes/100 WBC (Bld) 0.69 %[facility] PortsmouthMorphology Lion (Bld) [Interp]SLIGHT ANISOCYTOSIS Bon [facility] PrebleMorphology Lion (Bld) [Interp]FEW Large PlateletsNaval Medical Center PortsmouthNeutrophils/100 WBC (Bld)58 %47 - 75 %Bon [facility] PreblePlatelet mean volume (Bld) [Entitic vol]10.4 fL6.0 - 12.0 fLNaval Medical Center PortsmouthPlatelets (Bld) [#/Vol]318 10*3/uLBon [facility] PrebleRBC (Bld) [#/Vol]4.66 10*6/uL4.00 - 5.20 m/uLNaval Medical Center PortsmouthSegmented neutrophils/100 WBC (Bld)5.46 %[facility] PortsmouthWBC other (Bld) [#/Vol] 9.4Bon [address]Asc[address] Luke's Sleep CenterCBC with Diffon 06-11-2024 Morphology Lion (Bld) [Interp]SLIGHTNormalMerBinghamton State HospitalComment on above: Result Comment: ANISOCYTOSIS FEW Large PlateletsPerformed By: #### FEBC #### [facility] [address] [place] [address] Court Usher: Jair Ernst MD #### SHELIA HEARD, MG, CDP #### [facility] [address] [place] [address] Court Usher: Troy De La Garza. Basophil0.08 k/uLNormal0.00-0.20[facility] Medical CenterComment on above:Performed By: #### FEBC #### [facility] [address] [place] [address] Court Usher: Jair Ernst MD #### TROPRobin BMP, MG, CDP #### [facility] [address] [place], [place] [phone] Court Usher: Troy De La Garza.Imm.Granulocyte0.01 k/uLNormal0.00-0.30[facility] on above:Performed By: #### FEBC #### [address] [address] [address] Usher: Jair Ernst MD #### SHELIA HEARD, MG, CDP #### [facility] [address] [place], [place] [id number] Court Usher: Troy De La Garza.Neutrophil (Seg)5.46 k/uLNormal2.5-7.0[facility] Medical CenterCommclaren bay region on above:Performed By: #### FEKATT #### [address] [address] [address] Usher: Jair Ernst MD #### FÉLIX BMP, MG, CDP #### [facility] [address] [place], [place] [phone] Court Usher: Laith Stearns MDBasophils/100 WBC (Bld)1 %Normal0-2MKnox Community Hospital on above:Performed By: #### FEBC #### [address] [address] [address] Usher: Jair Ernst MD #### TROPRobin BMP, MG, CDP #### [facility] [address] [place], [place] [address] Court Usher: Laith Stearns MDEosinophils (Bld) [#/Vol]0.31 10*3/uLNormal 0.00-0.40[facility] on above:Performed By: #### FEBC #### [facility] [address] [place], [place] [phone] Court Usher: Jair Ernst MD #### TROPI, BMP, MG, CDP #### [facility] [address] [place], [place] [phone] Court Usher: Laith Stearns MDEosinophils/100 WBC (Bld)3 %Normal0-5[facility] on above:Performed By: #### FEBC #### [facility] [address] [place], [place] [address] Court Usher: Jair Ernst MD #### TROPI, BMP, MG, CDP #### [facility] [address] [place] [address] Court Usher: Laith Stearns MDErythrocyte distribution width (RBC) [Ratio]19.1 % High12.1-15.2MKnox Community Hospital on above:Performed By: #### FEBC #### [facility] [address] [place], [place] [address] Court Usher: Jair Ernst MD #### TROPI, BMP, MG, CDP #### [facility] [address] [place] [address] Court Usher: Laith Stearns MDHematocrit (Bld) [Volume fraction]36.8 %Normal 36.0-46.0[facility] on above:Performed By: #### FEBC #### [facility] [address] [place], [place] [phone] Court Usher: Jair Ernst MD #### TROPI, BMP, MG, CDP #### [facility] [address] [place], [place] [address] Court Usher: Laith Stearns MDHemoglobin (Bld) [Mass/Vol]11.4 g/dLLow12.0-16.0 [facility] on above:Performed By: #### FEBC #### [address] [address] [address] Usher: Jair Ernst MD #### TROPI, BMP, MG, CDP #### [facility] [address] [place], [place] [address] Court Usher: Laith Stearns MDImmature granulocytes/100 WBC (Bld)0 %Normal0-5 [facility] on above:Performed By: #### FEBC #### [id number] Usher: Jair Ernst MD #### TROPI, BMP, MG, CDP #### [facility] [address] [place], [place] [address] Court Usher: Laith Stearns MDLymphocytes (Bld) [#/Vol]2.85 10*3/uLNormal 1.00-4.80[facility] Medical CenterCommclaren bay region on above:Performed By: #### FEBC #### [phone] Usher: Jair Ernst MD #### TROPI, BMP, MG, CDP #### [facility] [address] [place] [phone] Usher: Laith Stearns MDLymphocytes/100 WBC (Bld)30 %Mqpngc41-94CzvwbThe Jewish Hospital on above:Performed By: #### FEBC #### [address] Usher: Jair Ernst MD #### TROPI, BMP, MG, CDP #### [facility] [address] [place], [place] [phone] Court Usher: JUAN De La GarzaCH (RBC) [Entitic mass]24.5 pgLow26.0-34.0[facility] Medical CenterComment on above:Performed By: #### FEBC #### [id number] Usher: Jair Ernst MD #### TROPI, BMP, MG, CDP #### [facility] [address] [place] [phone] Usher: JUAN De La GarzaCHC (RBC) [Mass/Vol]31.0 g/eLGtjjpl84.0-37.0[facility] CenterComment on above:Performed By: #### FEBC #### [place] [address] Court Usher: Jair Ernst MD #### TROPI, BMP, MG, CDP #### [facility] [address] [place] [phone] Usher: JUAN De La GarzaCV (RBC) [Entitic vol]79.0 fLLow80.0-100.0[facility] Medical CenterComment on above:Performed By: #### ALESSANDROBC #### [place] [address] Court Usher: Jair Ernst MD #### TROPI, BMP, MG, CDP #### [facility] [address] [place] [phone] Usher: JUAN De La Garzaonocytes (Bld) [#/Vol]0.69 10*3/uLNormal0.00-1.00 [facility] Medical CenterComment on above:Performed By: #### FEKATT #### [place] [address] Court Usher: Jair Ernst MD #### TROPI, BMP, MG, CDP #### [facility] [address] [place], [place] [address]190 Court Usher: JUAN De La Garzaonocytes/100 WBC (Bld)7 %Normal4-8[facility] Medical CenterComment on above:Performed By: #### FEBC #### [facility] [address] [place], [place] [address]8 Court Usher: Jair Ernst MD #### TROPI, BMP, MG, CDP #### [facility] [address] [place], [place] [address] Court Usher: Laith Stearns MDNeutrophil (Seg)58 %Jijwnk50-65VlehuLouis Stokes Cleveland Va Medical CenterComment on above:Performed By: #### FEBC #### [id number] Usher: Jair Ernst MD #### TROPI, BMP, MG, CDP #### [facility] [address] [place], [place] [address] Court Usher: Elias De La Garza mean volume (Bld) [Entitic vol]10.4 fL Normal6.0-12.0[facility] Medical CenterCommclaren bay region on above:Performed By: #### FEBC #### [phone] Usher: Jair Ernst MD #### TROPI, BMP, MG, CDP #### [facility] [address] [place], [place] [address] Court Usher: AUDELIA De La Garzalatelets (Bld) [#/Vol]318 10*3/uZVkicaw422-314 [facility] CenterCommclaren bay region on above:Performed By: #### FEBC #### [phone] Usher: Jair Ernst MD #### TROPI, BMP, MG, CDP #### [facility] [address] [place], [place] [address]90 Court Usher: ISAK De La Garza ([facility]) [#/Vol]4.66 10*6/uLNormal4.00-5.20[facility] Medical CenterComment on above:Performed By: #### FEBC #### [phone] Usher: Jair Ernst MD #### TROPI, BMP, MG, CDP #### [facility] [address] [place] [address] Court Usher: PRINCESS De La Garza ([facility]) [#/Vol]9.4 10*3/uLNormal3.5-11.0[facility] Medical CenterComment on above:Performed By: #### FEBC #### [place] [address] Court Usher: Jair Ernst MD #### TROPI, BMP, MG, CDP #### [facility] [address] [place] [address] Court Usher: Pancho De La Garza Binding Cap.on 06-11-2024% Fe Saturation8 % Bvx94-90FdqvtLouis Stokes Cleveland Va Medical CenterComment on above:Performed By: #### BMP, LIVP, CDP, LIP, HCG #### [facility] [address] [place] [address] Court Usher: Pancho De La Garza [Mass/Vol]23 ug/mZKsg15-229LpmceLouis Stokes Cleveland Va Medical CenterComment on above:Performed By: #### BMP, LIVP, CDP, LIP, HCG #### [facility] [address] [place] [address] Court Usher: Kt De La Garza Fe Binding Rgg234 ug/mQCebcyv832-714PmylhLouis Stokes Cleveland Va Medical CenterComment on above:Performed By: #### BMP, LIVP, CDP, LIP, HCG #### [facility] [address] [place], [place] [address] Court Usher: Laith Stearns MDUnbound Fe Bind Noz067 ug/aTGrgsfn262-828YxsxlThe [facility] Hospital on above:Performed By: #### BMP, LIVP, CDP, LIP, HCG #### [facility] [address] [place], [place] [address] Court Usher: William De La Garzagnesiumon 50-65-9063Duoahbwkz [Mass/Vol]2.1 mg/dL1.6 - 2.6 mg/dLBon [facility]tering Health PrebleMagnesium [Mass/Vol]2.1 mg/dLNormal 1.6-2.6MercMission Hospital of Huntington Park on above:Performed By: #### FEBC #### [place] [address] [place], [place] [address]908 Court Usher: Jair Ernst MD #### TROPI, BMP, MG, CDP #### [facility] [address] [place], [place] [address] Court Usher: Laith Stearns MDNo Panel Informationon 52-62-3031Cmj [facility] Health PrebleTroponinon 40-00-5672Tverfkki I.cardiac High sensitivity method [Mass/Vol]ng/L0 - 14 ng/LBon [facility] PrebleCommclaren bay region on above:High Sensitivity Troponin values cannot be compared with other Troponin methodologies.Troponin, High Sens<4Kpbjtw0-11XbcipThe Jewish Hospital on above:Result Comment: High Sensitivity Troponin values cannot be compared with other Troponin methodologies.Performed By: #### FEBC #### [facility] [address] [place] [id number] Usher: Jair Ernst MD #### TROPI, BMP, MG, CDP #### [facility] [address] [place], [place] [address] Court Usher: Laith Sterans MDFamily Medicine Office/Clinic Noteon 05-03-2024 [facility] NoteJasper [facility] Office/Clinic Note HPI Staff Morro is a [...] for wheezing, 18 gram, Refill(s) 11, [id number], 161, cm, 09/21/23 15:12:00 EDT, Height/Length Dosing, [...] Recorded SARS-CoV-2 (COVID-19) mRNA BNT-162b2 vax 03/12/2020 RecordedNofishGood Samaritan HospitalComment on above:Result Comment: Electronically Signed By: Cleo Hassan\.br\Date and Time Signed: 05/03/24 15:48 EDTAmbulatory Visit Summary on 98-60-9015Pztuyqjfsv Visit SummaryAmbulatory Visit Summary MORRO MALONEY :1985 [...] you for choosing us for your care. NormalGood Samaritan HospitalCBC w/ Auto Diffon 04-27-2024 Basophils/100 WBC (Bld)1.3 %Normal0.0-2.0[facility] Samaritan HospitalComment on above:Performed By: #### [id number] #### [facility] [address] [place] [address]Pmjzoeonn/Leukocytes Auto (Bld) [Pure # fraction]0.1 E9/LNormal 0.0-0.2FSumma Health Akron CampusComment on above:Performed By: #### [id number] #### [facility] [address] [place] [address]Vrmfpkqedmc (Bld) [#/Vol]0.3 E9/LNormal0.0-0.5FSumma Health Akron CampusComment on above:Performed By: #### [id number] #### [facility] [address] [place] [address]Pncyqiqbuxf/100 WBC (Bld)4.1 %Normal0.0-8.0[facility] Samaritan HospitalComment on above:Performed By: #### [id number] #### [facility] [address] [place] [address]Anhtmrtspby distribution width (RBC) [Ratio]17.6 %High10.9-14.2 [facility]aritan HospitalComment on above:Performed By: #### [id number] #### [facility] [address] [place] [address]Jvawvntqoy (Bld) [Volume fraction]35.2 %Jpycbt08.0-46.0[facility]itan HospitalComment on above:Performed By: #### [id number] #### [facility] [address] [place], [place] [address]Cfghygepeg (Bld) [Mass/Vol]11.3 g/dLLow12.0-16.0[facility] Samaritan HospitalComment on above:Performed By: #### [id number] #### [facility] [address] [place] [address]Yrnwbjrftlu Auto Ql (Bld)PRESENTInvalid Interpretation Code [facility]itan HospitalComment on above:Performed By: #### [id number] #### [facility] [address] [place] [address]Neiajyaqzlh (Bld) [#/Vol]2.2 E9/LNormal1.0-4.0[facility]itan HospitalComment on above:Performed By: #### [id number] #### [facility] [address] [place] [address]Pwzghnbyapc/100 WBC (Bld)26.8 %Xekiyr11.0-50.0[facility]itan HospitalComment on above:Performed By: #### [id number] #### [facility] [address] [place] [address]NWR (RBC) [Entitic mass]24.3 pgLow27.0-34.0[facility]aritan HospitalComment on above:Performed By: #### [id number] #### [facility] [address] [place], [place] [address]VUSB (RBC) [Mass/Vol]32.1 g/lZOgfuil49.4-36.0[facility]itan HospitalComment on above:Performed By: #### [id number] #### [facility] [address] [place] [address]QDD (RBC) [Entitic vol]75.8 fLLow80.0-100.0[facility]itan HospitalComment on above:Performed By: #### [id number] #### [facility] [address] [place], [place] [address]Gazdqfzkh (Bld) [#/Vol]0.6 E9/LNormal0.2-1.0[facility]itan HospitalComment on above:Performed By: #### [id number] #### [facility] [address] [place] [address]Lmjebnajnux (Bld) [#/Vol]5.1 E9/LNormal2.0-7.5FSumma Health Akron CampusComment on above:Performed By: #### [id number] #### [facility] [address] [place] [address]Dzdvcknnrle/100 WBC (Bld)60.4 %Ojpvwh58.0-75.0[facility] Samaritan HospitalComment on above:Performed By: #### [id number] #### [facility] [address] [place] [address]Fgkxehhvzb LM Ql (Bld)PRESENTInvalid Interpretation CodeGood Samaritan HospitalComment on above:Performed By: #### [id number] #### [facility] [address] [place] [address]Jezlokyf764.0 E9/XWmhwil304.0-500.0[facility] Comment on above:Performed By: #### [id number] #### [facility] [address] [place] [address]Uhhcplbw mean volume (Bld) [Entitic vol]7.9 fLNormal6.4-10.8 [facility]itan HospitalComment on above:Performed By: #### [id number] #### [facility] [address] [place] [address]IAS (Bld) [#/Vol]4.6 E12/LNormal4.3-5.9[facility]aritan HospitalComment on above:Performed By: #### [id number] #### [facility] [address] [place] [address]EXX size Nom (Bld)SEE MORPHOLOGYInvalid Interpretation Code [facility] Samaritan HospitalComment on above:Performed By: #### [id number] #### [facility] [address] [place], [place] [address]RFH corrected for nucl RBC Auto (Bld) [#/Vol]8.4 E9/LNormal 4.0-11.0[facility]aritan HospitalComment on above:Performed By: #### [id number] #### [facility] [address] [place], [place] [address]Ytdoosdadr 08-30-5415Qtkyksbd [Mass/Vol]6 ng/jHDof07-107IqhnhqGood Samaritan HospitalComment on above:Performed By: #### [id number] #### [facility] [address] [place], [place] [address]Qtzqkg 93-07-6048Dqcp [Mass/Vol]45 microgram/eGCqfwjn67-347 [facility]itan HospitalComment on above:Performed By: #### [id number] #### [facility] [address] [place], [place] [address]JOUE Calculatedon 71-98-3178Dfgp binding capacity [Mass/Vol]363 microgram/bFWczqvk245-862OizdefGood Samaritan HospitalComment on above:Performed By: #### [id number] #### [facility] [address] [place], [place] [address]Lvimgfdfeqr [Mass/Vol]259 mg/gCMwquax168-519PfttsiGood Samaritan HospitalComment on above:Performed By: #### [id number] #### [facility] [address] [place], [place] [address]Svchmgdttk Visit Summaryon 21-50-9285Lsxhltzwhv Visit Summary Ambulatory Visit Summary MORRO MALONEY [...] you for choosing us for your care. [facility] Medicine Office/Clinic Noteon 90-72-0041Bdekmz Medicine Office/Clinic NoteFagrafton state hospital Medicine Office/Clinic Note Chief Complaint Weight Management [...] Daily, # 30 tab(s), Refills(s) 0, Pharmacy: [id number], 161, cm, 12/05/23 14:58:00 EDT, Height/Length Dosing, 111.3, kg, 12/05/23 14:58:00 EDT, Weight Dosing topiramate, 25 mg = 1 tab(s), Oral, Daily, # 30 tab(s), Refills(s) 2, Pharmacy: [facility] #[id number],161, cm, 12/05/23 14:58:00 EDT, Height/Length Dosing, 111.3, kg, 12/05/23 14:58:00 EDT, Weight Dosing 2. 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 BMI 40.0-44.9, adult (Z68.41: Body mass index [BMI] 40.0-44.9, adult) pt would like to try adipex and topamax Ordered: phentermine, 37.5 mg = 1 tab(s), Oral, Daily, # 30 tab(s), Refills(s) 0, [id number], cm, 12/05/23 14:58:00 EDT, Height/Length Dosing, 111.3, kg, 12/05/23 14:58:00 EDT, Weight Dosing topiramate, 25 mg = 1 tab(s), Oral, Daily, # 30 tab(s), Refills(s) 2, [id number], cm, 12/05/23 14:58:00 EDT, Height/Length Dosing, 111.3, kg, 12/05/23 14:58:00 EDT, Weight Dosing 4. Obesity due to excess calories (E66.09: Other obesity due to excess calories) see above Ordered: phentermine, 37.5 mg = 1 tab(s), Oral, Daily, # 30 tab(s), Refills(s) 0, [id number] 161, cm, 12/05/23 14:58:00 EDT, Height/Length Dosing, 111.3, kg, 12/05/23 14:58:00 EDT, Weight Dosing topiramate, 25 mg = 1 tab(s), Oral, Daily, # 30 tab(s), Refills(s) 2, Pharmacy: [facility] #[id number],161, cm, 12/05/23 14:58:00 EDT, Height/Length Dosing, 111.3, kg, 12/05/23 14:58:00 EDT, Weight Dosing 5. Non-smoker (Z78.9: Other specified health status) continue not smoking Ordered: phentermine, 37.5 mg = 1 tab(s), Oral, Daily, # 30 tab(s), Refills(s) 0, [id number] 161, cm, 12/05/23 14:58:00 EDT, Height/Length Dosing, 111.3, kg, 12/05/23 14:58:00 EDT, Weight Dosing topiramate, 25 mg = 1 tab(s), Oral, Daily, # 30 tab(s), Refills(s) 2, [id number], cm, 12/05/23 14:58:00 EDT, Height/Length Dosing, [...] SARS-CoV-2 (COVID-19) mRNA BNT-16 (more content not included)...[facility] HospitalComment on above:Result Comment: Electronically Signed By: Cleo Hassan\.br\Date and Time Signed: 12/05/23 15:17 EDTCBC w/ Auto Diff on 55-40-8156Geoidkxmk/100 WBC (Bld)0.6 %Normal0.0-2.0[facility]aritan HospitalComment on above:Performed By: #### [id number] #### [facility] [address] [place] [address]Zegdwvjff/Leukocytes Auto (Bld) [Pure # fraction]0.1 E9/LNormal 0.0-0.2FSumma Health Akron CampusComment on above:Performed By: #### [id number] #### [facility] [address] [place] [address]Bbgwedabzxh (Bld) [#/Vol]0.4 E9/LNormal0.0-0.5FSumma Health Akron CampusComment on above:Performed By: #### [id number] #### [facility] [address] [place] [address]Mhcapwnghao/100 WBC (Bld)3.8 %Normal0.0-8.0[facility]aritan HospitalComment on above:Performed By: #### [id number] #### [facility] Laboratory [address] [place] [address] 25397Swyeduepfrj distribution width (RBC) [Ratio]22.4 %High10.9-14.2 [facility] HospitalComment on above:Performed By: #### [id number] #### [facility] [address] [place] [address] 99252Pbiipndgzm (Bld) [Volume fraction]35.4 %Qrzweq29.0-46.0[facility] HospitalComment on above:Performed By: #### [id number] #### [facility] [address] [place] [address] 75160Obtwzwgffj (Bld) [Mass/Vol]11.3 g/dLLow12.0-16.0[facility] HospitalComment on above:Performed By: #### [id number] #### [facility] [address] [place] [address] 05112Wzdmqxzmcrr Auto Ql (Bld)PRESENTInvalid Interpretation Code [facility] HospitalComment on above:Performed By: #### [id number] #### [facility] [address] [place] [address] 59732Ebptoxwfbru (Bld) [#/Vol]2.5 E9/LNormal1.0-4.0[facility] HospitalComment on above:Performed By: #### [id number] #### [facility] [address] [place] [address] 73253Oebmojmlmcu/100 WBC (Bld)26.9 %Buxpzs64.0-50.0[facility] HospitalComment on above:Performed By: #### [id number] #### [facility] [address] [place] [address] 57214WXC (RBC) [Entitic mass]23.6 pgLow27.0-34.0[facility] HospitalComment on above:Performed By: #### [id number] #### [facility] [address] [place] [address] 76480ETYR (RBC) [Mass/Vol]31.9 g/lFXkifgw85.4-36.0[facility] HospitalComment on above:Performed By: #### [id number] #### [facility] [address] [place] [address] 04510WOS (RBC) [Entitic vol]73.9 fLLow80.0-100.0[facility] HospitalComment on above:Performed By: #### [id number] #### [facility] [address] [place] [address] 09713Mfnzrbzxrp Ql (Bld)PRESENTInvalid Interpretation CodeGood Samaritan HospitalComment on above:Performed By: #### [id number] #### [facility] [address] [place] [address] 39026Vbbeuycvm (Bld) [#/Vol]0.4 E9/LNormal0.2-1.0[facility] HospitalComment on above:Performed By: #### [id number] #### [facility] [address] [place], [place] [address]Jhwlwjkluxi (Bld) [#/Vol]5.9 E9/LNormal2.0-7.5FSumma Health Akron CampusComment on above:Performed By: #### [id number] #### [facility] [address] [place] [address] 99595Gzdctmgqsdr/100 WBC (Bld)64.1 %Osrgtd84.0-75.0[facility] HospitalComment on above:Performed By: #### [id number] #### [facility] [address] [place] [address] 81387Oxqzdcxjae LM Ql (Bld)PRESENTInvalid Interpretation CodeGood Samaritan HospitalComment on above:Performed By: #### [id number] #### [facility] [address] [place] [address] 82404Hhpxvriq mean volume (Bld) [Entitic vol]7.4 fLNormal6.4-10.8 [facility] HospitalComment on above:Performed By: #### [id number] #### [facility] [address] [place] [address] 82599Igqybicup (Bld) [#/Vol]331.0 E9/PTecvxh268.0-500.0[facility] HospitalComment on above:Performed By: #### [id number] #### [facility] [address] [place] [address] 40806BFK (Bld) [#/Vol]4.8 E12/LNormal4.3-5.9[facility] HospitalComment on above:Performed By: #### [id number] #### [facility] [address] [place] [address] 28532PJJ size Nom (Bld)SEE MORPHOLOGYInvalid Interpretation Code [facility] HospitalComment on above:Performed By: #### [id number] #### [facility] [address] [place] [address] 97243KCA corrected for nucl RBC Auto (Bld) [#/Vol]9.2 E9/LNormal 4.0-11.0[facility] HospitalComment on above:Performed By: #### [id number] #### [facility] Laboratory [address] [place], [place] [address]DVJYELZOYHggwhud By: SYSTEM SYSTEM on 02-09-9088Zjyrsgj [Mass/Vol]4.4 g/dLNormal3.3 - 5.0 gm/dLRemisol ChemAlbumin/Globulin [Mass ratio] 1.4 {ratio}Normal1.1 - 2.2Remisol ChemALP [Catalytic activity/Vol]95 [iU]/d Stydlc13 - 98 Int._Unit/LRemisol ChemALT No additional P-5'-P [Catalytic activity/Vol]12 [iU]/dNormal6 - 46 Int._Unit/LRemisol ChemAnion gap [Moles/Vol] 13 mmol/LNormal6 - 16 mEq/LRemisol ChemAST [Catalytic activity/Vol]17 [iU]/d Normal5 - 43 Int._Unit/LRemisol ChemBilirubin [Mass/Vol]0.5 mg/dLNormal0.0 - 1.1 mg/dLRemisol ChemCalcium [Mass/Vol]9.3 mg/dLNormal8.9 - 11.1 mg/dLRemisol Chem Chloride [Moles/Vol]101 mmol/OBkgrju535 - 111 mmol/LRemisol ChemCO2 [Moles/Vol] 25 mmol/CLmaned74 - 31 mmol/LRemisol ChemCreatinine [Mass/Vol]1.0 mg/dLNormal0.5 - 1.3 mg/dLRemisol GyfmtLPH28 mL/min/1.73 o3Jeknpo>=59mL/min/1.73 t3Bkzuhcu ChemFerritin [Mass/Vol]9 ng/mLLow11 - 307 ng/mLRemisol ChemFolate [Mass/Vol]13.8 ng/mLNormal>=6.7ng/mLRemisol ChemGlobulin (S) [Mass/Vol]3.2 g/dLNormal1.4 - 4.0 gm/dLRemisol ChemGlucose [Mass/Vol]121 mg/eKDpefge25 - 199 mg/dLRemisol Chem Iron [Mass/Vol]35 ug/pAWeoqqb95 - 153 mcg/dLRemisol ChemIron binding capacity [Mass/Vol]367 ug/dWGzjujg556 - 400 mcg/dLRemisol ChemIron saturation [Mass fraction]10 %Low20 - 50 %Remisol ChemPotassium [Moles/Vol]4.0 mmol/LNormal3.5 - 5.3 mmol/LRemisol ChemProtein [Mass/Vol]7.6 g/dLNormal6.0 - 7.8 gm/dLRemisol ChemSodium [Moles/Vol]135 mmol/MZdjrec569 - 145 mmol/LRemisol ChemTransferrin [Mass/Vol]262 mg/lTCmgflz340 - 370 mg/dLRemisol ChemUrea nitrogen [Mass/Vol]9 mg/dLNormal5 - 21 mg/dLRemisol ChemUrea nitrogen/Creatinine [Mass ratio]9 mg/mg Low10 - 20Remisol ChemCMPon 19-85-9285Gdxoamp [Mass/Vol]4.4 g/dLNormal3.3-5.0 [facility] HospitalComment on above:Performed By: #### [id number] #### [facility] [address] [place], [place] [address]Jfqxrue/Globulin (S) [Mass conc ratio]1.8Hfyzdk8.1-2.2FSumma Health Akron CampusComment on above:Performed By: #### [id number] #### [facility] [address] [place], [place] [address]XDX [Catalytic activity/Vol]95 Int._Unit/WYxgxdn33-16JowyldGood Samaritan HospitalComment on above:Performed By: #### [id number] #### [facility] [address] [place], [place] [address]WKF No additional P-5'-P [Catalytic activity/Vol]12 Int._Unit/L Normal6-46[facility] HospitalComment on above:Performed By: #### [id number] #### [facility] [address] [place], [place] [address]Feoos gap [Moles/Vol]13 mmol/LNormal6-16[facility] HospitalComment on above:Performed By: #### [id number] #### [facility] [address] [place], [place] [address]RCT [Catalytic activity/Vol]17 Int._Unit/LNormal5-43[facility] HospitalComment on above:Performed By: #### [id number] #### [facility] [address] [place], [place] [address]Mzmbcluyn [Mass/Vol]0.5 mg/dLNormal0.0-1.1FSumma Health Akron CampusComment on above:Performed By: #### [id number] #### [facility] [address] [place], [place] [address]Kckjath [Mass/Vol]9.3 mg/dLNormal8.9-11.1FSumma Health Akron CampusComment on above:Performed By: #### [id number] #### [facility] [address] [place], [place] [address]Uvndkufe [Moles/Vol]101 mmol/CHreaig095-020HqaiieGood Samaritan HospitalComment on above:Performed By: #### [id number] #### [facility] [address] [place] [address] 67564MR3 [Moles/Vol]25 mmol/ERqdcam23-29FtptmnGood Samaritan Hospital Comment on above:Performed By: #### [id number] #### [facility] [address] [place], [place] [address]Vpxgnhjszu [Mass/Vol]1.0 mg/dLNormal0.5-1.3FSumma Health Akron CampusComment on above:Performed By: #### [id number] #### [facility] [address] [place], [place] [address]Elfyxbun (S) [Mass/Vol]3.2 g/dLNormal1.4-4.0[facility] HospitalComment on above:Performed By: #### [id number] #### [facility] [address] [place], [place] [address]Yariwns [Mass/Vol]121 mg/qLPqqhbl99-657RssjdqGood Samaritan HospitalComment on above:Performed By: #### [id number] #### [facility] [address] [place], [place] [address]Mgykmyddm [Moles/Vol]4.0 mmol/LNormal3.5-5.3FSumma Health Akron CampusComment on above:Performed By: #### [id number] #### [facility] [address] [place], [place] [address]Qhctagc [Mass/Vol]7.6 g/dLNormal6.0-7.8[facility] HospitalComment on above:Performed By: #### [id number] #### [facility] [address] [place] [address]99[address]Pxlxit [Moles/Vol]135 mmol/YYnduss753-174LywvnfGood Samaritan HospitalComment on above:Performed By: #### [id number] #### [facility] [address] [place], [place] [address]Rnql nitrogen [Mass/Vol]9 mg/dLNormal5-21[facility] HospitalComment on above:Performed By: #### [id number] #### [facility] [address] [place], [place] [address]Piyy nitrogen/Creatinine [Mass ratio]9 No EnlpsBqo30-18KqaaunGood Samaritan HospitalComment on above:Performed By: #### [id number] #### [facility] [address] [place], [place] [address]Djagdgnufc 62-65-8401Scbaubqe [Mass/Vol]9 ng/qYDpa47-502LbluffGood Samaritan HospitalComment on above:Performed By: #### [id number] #### [facility] [address] [place], [place] [address]Dzinplok 12-15-3310Anafvl [Mass/Vol]13.8 ng/mLNormal>=6.7FSumma Health Akron CampusComment on above:Performed By: #### [id number] #### [facility] [address] [place], [place] [address]FUFJVFPJEPEstonpc By: SYSTEM SYSTEM on 67-30-1038Rslbllfrq/100 WBC (Bld)0.6 %Normal0.0 - 2.0 %Remisol HemeBasophils/Leukocytes Auto (Bld) [Pure # fraction]0.1 E9/LNormal0.0 - 0.2 E9/LRemisol HemeEosinophils (Bld) [#/Vol]0.4 E9/LNormal0.0 - 0.5 E9/LRemisol HemeEosinophils/100 WBC (Bld)3.8 %Normal0.0 - 8.0 %Remisol HemeErythrocyte distribution width (RBC) [Ratio]22.4 %High10.9 - 14.2 %Remisol HemeHematocrit (Bld) [Volume fraction]35.4 %Ayhhkc64.0 - 46.0 % Remisol HemeHemoglobin (Bld) [Mass/Vol]11.3 g/dLLow12.0 - 16.0 gm/dLRemisol Heme Hypochromia Auto Ql (Bld)PRESENT *NA* (10/26/23 2:48 PM)Invalid Interpretation CodeRemisol HemeLymphocytes (Bld) [#/Vol] 2.5 E9/LNormal1.0 - 4.0 E9/LRemisol HemeLymphocytes/100 WBC (Bld)26.9 %Normal 14.0 - 50.0 %Remisol HemeMCH (RBC) [Entitic mass]23.6 pgLow27.0 - 34.0 pgRemisol HemeMCHC (RBC) [Mass/Vol]31.9 g/oIMfttpj01.4 - 36.0 gm/dLRemisol HemeMCV (RBC) [Entitic vol]73.9 fLLow80.0 - 100.0 fLRemisol HemeMicrocytes Ql (Bld)PRESENT *NA* (10/26/23 2:48 PM)Invalid Interpretation CodeRemisol HemeMonocytes (Bld) [#/Vol] 0.4 E9/LNormal0.2 - 1.0 E9/LRemisol HemeMonocytes/100 WBC (Bld)4.6 %Normal4.0 - 14.0 %Remisol HemeNeutrophils (Bld) [#/Vol]5.9 E9/LNormal2.0 - 7.5 E9/LRemisol HemeNeutrophils/100 WBC (Bld)64.1 %Tqwwbg45.0 - 75.0 %Remisol HemeOvalocytes LM Ql (Bld)PRESENT *NA* (10/26/23 2:48 PM)Invalid Interpretation CodeRemisol HemePlatelet mean volume (Bld) [Entitic vol]7.4 fLNormal6.4 - 10.8 fLRemisol HemePlatelets (Bld) [#/Vol] 331.0 E9/TPjvach064.0 - 500.0 E9/LRemisol HemeRBC (Bld) [#/Vol]4.8 E12/LNormal 4.3 - 5.9 E12/LRemisol HemeRBC size Nom (Bld)SEE MORPHOLOGY *NA* (10/26/23 2:48 PM)Invalid Interpretation CodeRemisol HemeWBC corrected for nucl RBC Auto (Bld) [#/Vol]9.2 E9/LNormal4.0 - 11.0 E9/LRemisol HemeIronon 10-26-2023 Iron [Mass/Vol]35 microgram/mCFnbalp86-074KugsumGood Samaritan HospitalComment on above:Performed By: #### [id number] #### [facility] [address] [place], [place] [address]Ftvm Saturationon 50-79-1534Rwfx binding capacity [Mass/Vol]367 microgram/zQBwxtmm372-271SremihGood Samaritan HospitalComment on above:Performed By: #### [id number] #### [facility] [address] [place], [place] [address]Lthr saturation [Mass fraction]10 %Qsj56-94FjvympGood Samaritan HospitalComment on above:Performed By: #### [id number] #### [facility] [address] [place], [place] [address]Skjqcjxidtrij 49-19-1473Zutdljvipeq [Mass/Vol]262 mg/dLNormal 200-370Fisher Walton Medical CenterComment on above:Performed By: #### [id number] #### [facility] Laboratory [address] [place], [place] [address]iVWFnc 55-58-8439vWDA87 mL/min/1.73 e8Oglaqk>=59Fisher [facility] Medical CenterComment on above:Order Comment: Order added by Discern Expert. Performed By: #### [id number] #### [facility] Laboratory [address] [place], [place] [address]Ypkljbp [Mass/volume] in Serum or PlasmaOrdered By: Brandon Juares on 14-91-1884Nigzltr [Mass/Vol]9.0 mg/dLNormal8.6-10.3FCity HospitalComment on above:Performed By: #### CA, IBMH28BE, TSH3, T3T, T4T #### [place] [id number] USAParathyrin.intact [Mass/volume] in Serum or PlasmaOrdered By: Brandon Juares on 07-83-3644Moduafzpxo.intact [Mass/Vol]97.1 pg/qADfik31-16 [facility] CampusParathyroid Hormone Intacton 10-25-2023 Parathyroid Hormone Nqzfii51.1 pg/vPPpmx91-70Sdd [facility] Comment on above:Result Comment: PERFORMED BY: [place] [id number] PATHOLOGIST MEDICAL INSTRUMENT CABLE FABRICATOR KIRSTEN CHOW M.D.Performed By: #### PTH #### [facility] [place] [address] [place] [id number] USAThyrotropin [Units/volume] in Serum or PlasmaOrdered By: Brandon Juares on 66-03-2356VKJ Qn4.38 m[IU]/LNormal0.45-5.33[facility] CampusComment on above:Performed By: #### CA, BXHE50SX, TSH3, T3T, T4T #### [address] [address] USAThyroxine (T4) [Mass/volume] in Serum or PlasmaOrdered By: Brandon Juares on 38-44-2412O6 [Mass/Vol]7.13 ug/dLNormal5.39-11.82[facility] CampusComment on above:Performed By: #### CA, [id number], TSH3, T3T, T4T #### [facility] [address] [place] [address] USATriiodothyronine (T3) Totalon 34-20-4956Nivfbtqomumvkzek (T3) Total0.58 ng/mLLow0.87-1.78The [facility] Physician [facility] HospitalComment on above: Performed By: #### CA, QALQ07ZB, TSH3, T3T, T4T #### [facility] [address] [place] [address] USAVitamin D 25 Hydroxy Totalon 69-27-1486Yokszaj D 25 Hydroxy Total35.1 ng/jSYlwlsd37-685Okx [facility] Physician [facility] HospitalComment on above:Result Comment: VITAMIN D STATUS 25(OH)VITAMIN D RANGE (ng/mL) Deficient <20 Insufficient 20 to <30 Sufficient 30 to 100 Reference: Joby Galicia, Olesya DOWLING, et al. Evaluation,treatment, and prevention of vitamin D deficiency; an Endocrine Society clinical practice guideline. JCEM. 2010; 96(7):1911-30. PERFORMED BY: [place] [id number] PATHOLOGIST MEDICAL INSTRUMENT CABLE FABRICATOR KIRSTEN CHOW M.D.Performed By: #### CA, [id number], TSH3, T3T, T4T #### [address] [address] USAVitamin D+Metabolites [Mass/volume] in Serum or Plasma Ordered By: Brandon Juares on 87-06-7260Yprkydn D+Metabolites [Mass/Vol]35.1 ng/zV46-229AawmymeykTrinity Health System West CampusComment on above:VITAMIN D STATUS 25(OH)VITAMIN D RANGE (ng/mL) Deficient <20 Insufficient 20 to <55Dfupqpyoav64 to 100Reference: Joby Galicia, Olesya DOWLING, et al. Evaluation,treatment, and prevention of vitamin D deficiency; an Endocrine Society clinical practice guideline. JCEM. 2010; 96(7):1911-30.SURGICAL PATHOLOGY REFERENCE LAB CONSULTon 11-65-6421DJPJ REPORTKettering Health Greene Memorial on above:Order Comment: Specimen Type: FORMALIN-FIXED PARAFFIN- EMBEDDED TISSUE SPECIMEN [facility]: [facility] Address: [address] [place], [place] [address]Result Comment: Surgical Pathology Report Case: [id number] Authorizing Provider: Nilesh Heck, Collected: 10/10/2023 10:43 PM Ordering Location: [facility] Received: 10/10/2023 10:43 PM [facility] Pathologist: Rachel Pereyra MD Specimen: Slide(s), 6 SLIDES [id number] By: #### [id number] #### [facility] CLIA [id number] [address] [place] [address] [place] OF AMERICACLINICAL HISTORYCONSULT REQUESTEDNoUniversity [facility]als [facility] on above:Order Comment: Specimen Type: FORMALIN-FIXED PARAFFIN-EMBEDDED TISSUE SPECIMEN Ordering Facility: [facility] Address: [address] [place], [place] [address]Performed By: #### [id number] #### [facility] CLIA [id number] [address] [place] [address] [place] OF AMERICADIAGNOSIS COMMENTThank you for sharing this case. We would classify the 1.9 cm nodule with variably sized thyroid follicles within the spectrum of thyroid follicular nodular disease. No nuclear changes of papillary thyroid carcinoma is appreciated. Select slides were reviewed by my colleague, Dr. Vida Mack and he agrees with the interpretation.[facility] on above:Order Comment: Specimen Type: FORMALIN-FIXED PARAFFIN-EMBEDDED TISSUE SPECIMEN Ordering Facility: [facility] Address: [address] [place], [place] [address]Performed By: #### [id number] #### [facility] CLIA [id number] [address] [place] [address] [place] OF AMERICAFINAL DIAGNOSISNormal [facility] on above:Order Comment: Specimen Type: FORMALIN-FIXED PARAFFIN-EMBEDDED TISSUE SPECIMEN Ordering Facility: [facility] Address: [address] [place], [place] [address]Result Comment: A. 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 - Intrathyroidal parathyroid gland tissue, 0.1 cm. Performed By: #### [id number] #### [facility] CLIA [id number] [address] [place] [address] PERFORMING LABNormal [facility] on above:Order Comment: Specimen Type: FORMALIN-FIXED PARAFFIN-EMBEDDED TISSUE SPECIMEN Ordering Facility: [facility] Address: [address] [place], [place] [address]Result Comment: Diagnostic interpretation performed at [facility], [address] [place] [address] CLIA# [id number] Plaster Caster: Asael Clarke M.D.Performed By: #### [id number] #### [facility] CLIA [id number] [address] [place] [address] 35-26-4313ZQbvbamex: [id number] Received: 10/05/23 Status: MOY Castaneda Num: [id number] Spec Type: Surgical Subm Dr: Brandon Juares DO Tissues: A THYROID - Lobe (RIGHT THYROID LOBE AND ISTHM) Procedures: HE/7, Gross/Micro L5 Age/ Patient Sex Location Account Attending Physician [place] 38/F AMBREEN [id number] Brandon Juares DO SPEC NUM: [id number] RECD: 10/05/23 STATUS: MOY CASTANEDA NUM: [id number] PEGGY: 10/05/23- SUBM DR: Brandon Juares DO ENTERED: 10/05/[address] [facility] [address]: Rachid [facility] SPEC TYPE: Surgical DEPT: S ENTERED BY: [id number] RECV BY: [id number] ORDERED: ABBYAdri Gross/Micro L5 ORDERED: , Gross/Micro L5 Supplemental Report Addendum 1 Entered: 10/11/23 This case was [facility] to [facility] for [facility]. 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 Intrathyroidal parathyroid gland tissue, 0.1 cm. Please see attached consultation report from [facility] for diagnostic details. Addendum Signed (signature on file) Nilesh Eckert MD 10/11/23 1547 Pathological Diagnosis Preliminary report Nodule, right thyroid lobe, hemithyroidectomy: Atypical thyroid neoplasm. Pending external consultation. Specimen: [id number] Received: 10/05/23 Status: MOY Castaneda Num: [id number] Spec Type: Surgical Subm Dr: Brandon Juares DO Tissues: A THYROID - Lobe (RIGHT THYROID LOBE AND ISTHM) Procedures: , Gross/Micro L5 Patient: Morro [place] [id number] (Continued) Specimen: [id number] Received: 10/05/23 (Continued) Signed (signature on file) Nilesh Eckert MD 10/06/23 1712 Specimen: [id number] Received: 10/05/23 Status: MOY Castaneda Num: [id number] Spec Type: Surgical Subm Dr: Brandon Juares DO Tissues: A THYROID - Lobe (RIGHT THYROID LOBE AND ISTHM) Procedures: Martha GOINS/Kym L5 Patient: Morro [place]oney [id number] (Continued) Specimen: [id number] Received: 10/05/23 (Continued) Clinical Information Thyroid nodule [...] thyroid parenchyma is red-brown, beefy and unremarkable. Liquor Gallery Operator sections are sequentially submitted from superior to inferior in A1?A6 as follows: A1: Normal-appearing parenchyma A2: Hemorrhagic cystic nodule A3-A6: Rubbery cyst (A6-following decalcification) CPT Codes 14260 Specimen: [id number] Received: 10/05/23 Status: MOY Castaneda Num: [id number] Spec Type: Surgical Subm Dr: Brandon Juares DO Tissues: A THYROID - Lobe (RIGHT THYROID LOBE AND ISTHM) Procedures: , Gross/Micro L5 Patient: Morro [place] [id number] (Continued) Signed (signature on file) Nilesh Eckert MD 10/06/[address] [place] [address] Physician GroupBasic Metabolic Panelon 66-03-2980UEU/1.73 sq M.predicted MDRD (S/P/Bld) [Vol rate/Area]mL/min/{1.73_m2} NormalThe [facility] Physician GroupComment on above:Performed By: #### TSH3, BMP #### [place] [address] USACalcium [Mass/volume] in Serum or PlasmaOrdered By: Brandon Juares on 83-44-0990Zrfequh [Mass/Vol]8.9 mg/dLNormal8.6-10.3FCity HospitalComment on above:Performed By: #### TSH3, BMP #### [facility] [address] [place] [address] USACarbon dioxide, total [Moles/volume] in Serum or Plasma Ordered By: Brandon Juares on 45-87-2537QM8 [Moles/Vol]25.8 mmol/LNormal 21.0-31.0[facility] CampusComment on above:Performed By: #### TSH3, BMP #### [facility] [address] [place] [address] USAChloride [Moles/volume] in Serum or PlasmaOrdered By: Brandon Juares on 68-71-1467Cccujakm [Moles/Vol]103 mmol/VRbijmx94-042BgrmwnwycTrinity Health System West CampusComment on above:Performed By: #### TSH3, BMP #### [facility] [address] [place] [address] USACreatinine [Mass/volume] in Serum or PlasmaOrdered By: Brandon Juares on 33-81-5217Kmnziqcbzv [Mass/Vol]0.99 mg/dLNormal0.60-1.20 [facility] CampusComment on above:Performed By: #### TSH3, BMP #### [facility] [address] [place] [id number] USAECG 12 lead ECGon 95-61-8196LER 12 lead ECGPARKVIEW HEALTH [facility] [place] [address] [place] [address] Electrocardiograph Report Signed Patient: Morro Maloney MR#: [id number] 8 : 1985 Acct:[id number] Age/Sex: 38 / F ADM Date: 09/26/23 Loc: Room: Type: [facility] Attending Dr: Brandon Juares DO Ordering Provider: [...] PM Referred By: Electronically Signed By: Sharon Baglye Transcribed By: MUS Signed By Sharon Bagley DO 4 1900[facility] Physician GroupGlucose [Mass/volume] in Serum or PlasmaOrdered By: Brandon Juares on 26-65-1635Xytevyo [Mass/Vol]87 mg/dLNormal 70-100[facility] CampusComment on above:ADA recommended reference rangeRandom Glucose Reference [...] reference rangePerformed By: #### TSH3, BMP #### [place] [address] USANo Panel InformationOrdered By: Brandon Juares on 80-03-9487Yaoekbjey GFR (CKD-EPI)> 60.0 mL/MinTrinity Health System West Campus [facility] Creatinine Clearance (ChemN/[facility] Parathyrin.intact [Mass/volume] in Serum or PlasmaOrdered By: Brandon Juares on 27-03-7833Bmetljjqcu.intact [Mass/Vol]102.0 pg/rUBfrx90-94JhpojqasmTrinity Health System West CampusParathyroid Hormone Intacton 04-10-1583Tudvrilmaxg Hormone Intact 102.0 pg/mTTrqk68-02Jqr [facility] Physician GroupComment on above:Result Comment: PERFORMED BY: [place] [address] PATHOLOGIST MEDICAL INSTRUMENT CABLE FABRICATOR KIRSTEN CHOW M.D.Performed By: #### PTH #### [facility] [address] [place] [address] USAPotassium [Moles/volume] in Serum or PlasmaOrdered By: Brandon Juares on 30-54-5508Tuurwlbim [Moles/Vol]4.4 mmol/LNormal3.5-5.1 [facility] CampusComment on above:Performed By: #### TSH3, BMP #### [facility] [address] [place] [address] USASerum or plasma anion gap determinationOrdered By: Brandon Juares on 76-17-1202Abzjd gap [Moles/Vol]10.6 mmol/LNormal6.0-15.0 [facility] CampusComment on above:Performed By: #### TSH3, BMP #### [place] [address] USASodium [Moles/volume] in Serum or PlasmaOrdered By: Brandon Juares on 70-27-6583Itgcwe [Moles/Vol]135 mmol/OIfa075-529YqmxeylycTrinity Health System West CampusComment on above:Performed By: #### TSH3, BMP #### [place] [address] USAThyrotropin [Units/volume] in Serum or PlasmaOrdered By: Brandon Juares on 08-94-0947DQK Qn1.49 m[IU]/LNormal0.45-5.33Tr[facility] System West CampusComment on above:Result Comment: PERFORMED BY: [place] [address] PATHOLOGIST MEDICAL INSTRUMENT CABLE FABRICATOR KIRSTEN CHOW M.D.Performed By: #### TSH3, BMP #### [place] [address] USAUrea nitrogen [Mass/volume] in Serum or PlasmaOrdered By: Brandon Juares on 91-68-6693Aszn nitrogen [Mass/Vol]15 mg/dLNormal7-25Tr[facility] System West CampusComment on above:Performed By: #### TSH3, BMP #### [place] [id number] [facility]/Clinic Noteon 09-21-2023 Gastroenterology Office/Clinic NoteGastroenterology Office/Clinic [...] Recorded SARS-CoV-2 (COVID-19) mRNA BNT-162b2 vax 03/12/2020 RecordedNormSumma HealthComment on above:Result Comment: Electronically Signed By: Vinay INGRAM, Stefan Martinez\.br\Date and Time Signed: 09/20/2414:30 EDTSurgical Pathology Reporton [id number] Pathology ReportPromedica Memorial Hospital [address] [address]- Surgical Pathology Report Collected Date/Time: 09/05/2023 13:21 [...] is entirely submitted in one cassette. (DC) DC:[facility] Microscopic Description A&B: Microscopic examination performed unless gross only specified. The use of one or more reagents in the above tests is regulated as an analyte specific reagent (ASR). The test or tests are ordered following initial H&E microscopic examination. The performance characteristics were determined by the [facility] of [facility]. They have not been cleared or approved by the US Food and Drug Administration. The FDA has determined that such clearance or approval is not necessary. These tests are used for clinical purposes. They should not be regarded as investigational or for research. Appropriate positive and negative controls are performed and are acceptable. German HospitalComment on above:Performed By: #### [id number] #### [facility] [address], [place] [address]Hmhc OR Intraoperative Recordon 30-60-4588Cuue OR Intraoperative RecordMain OR Intraoperative Record IntraOp Document Type FT Summary Primary Physician: Stefan Mclean MD Finalized Date/Time: 09/07/23 14:37:49 Pt. Name: MORRO MALONEY/Sex: 1985 Female Med Rec #: [id number] Physician: Stefan Mclean MD Financial #: [id number] Pt. Type: O Room/Bed: / Admit/Disch: 09/05/23 [...] RN Role Performed Anesthesiologist Surgeon - Primary Electrical Unit Rebuilder - Primary Railroad Car Painter Time In 09/05/23 13:05:00 09/05/23 13:05:00 09/05/23 [...] and tissue Entry 1 Skin Integrity Intact, [place], Warm, and Skin Abnormality No Dry Outcomes Met? Yes Last Modified By: Cinthya Fatima RN 09/05/23 13:18:54 Post-Care Text: The patient is free from signs and symptoms of injury caused by extraneous objects Patient Positioning FT Pre-Care Text: Identifies physical alterations that require additional precautions for procedure-specific (more content not included)...German HospitalDischarge Instructionson 46-59-3413Voufxkrjm InstructionsDischarge Instructions MORRO MALONEY :1985 Visit Date:09/05/2023 [...] Discharge Follow Up with Stefan Mclean MD, [facility] When: Comments: Call for any problems. [...] [facility] Your doctor may also give you [...] Document Re-Released: 08/01/2006 ExitCare? Patient Information ?2009 [employer]. Hemorrhoids Hemorrhoids are swollen veins that may [...] the causes? This cond (more content not included)...German HospitalComment on above:Result Comment: Electronically Signed By: Veda Narayanan\Date and Time Signed: 09/05/23 13:53 EDTEGDon 40-67-1070XbhbasaqzkhvcrargygxkhdkkbJKP Patient: MORRO MALONEY Age: 38 years Sex: [...] q4hr for wheezing, 18 gram, Refill(s) 5, [facility]/pharmacy #[id number], 161, cm, 10/18/22 14:05:00 EDT, Height/Length Dosing, 105.6, kg, 10/18/22 13:58:00 EDT, Weight Dosing folic acid 1 mg Tab: 1 mg = 1 tab(s), Oral, Daily, # 90 tab(s), Refills(s) 4, Pharmacy: [facility]/pharmacy #[id number], 161, cm, 08/15/23 11:32:00 EDT, [...] follow in GI clinic in 1-2 after dischargeGerman HospitalComment on above:Other Comment: Missing Attachment - attachment storage system not supported [id number] Can be viewed in source system Missing Attachment - attachment storage system not supported [id number] Can be viewed in source systemMissing Attachment - attachment storage system not supported [id number] Can be viewed in source systemMissing Attachment - attachment storage system not supported [id number] Can be viewed in source systemMissing Attachment - attachment storage system not supported [id number] Can be viewed in source systemMissing Attachment - attachment storage system not supported [id number] Can be viewed in source systemMissing Attachment - attachment storage system not supported [id number] Can be viewed in source systemMain OR PACU I Record on 69-11-6704Sjgm OR PACU I RecordMain OR PACU I Record PACU Phase I Document Type FT Summary Primary Physician: Stefan Mclean MD Finalized Date/Time: 09/05/23 14:28:48 Pt. Name: MORRO MALONEY/Sex: 1985 Female Med Rec #: [id number] Physician: Stefan Mclean MD Financial #: [id number] Pt. Type: O Room/Bed: / Admit/Disch: 09/05/23 [...] Signatures Signed By: Veda Narayanan I 09/05/23 14:28NomonicoGood Samaritan HospitalMain OR Preoperative Recordon 48-81-4149Flzb OR Preoperative RecordMain OR Preoperative Record Holding Area Document Type FT Summary Primary Physician: Stefan Mclean MD Finalized Date/Time: 09/05/23 12:58:13 Pt. Name: CHIARA MORRO Sara Escalona/Sex: 1985 Female Med Rec #: [id number] Physician: Stefan Mclean MD Financial #: [id number] Pt. Type: O Room/Bed: / Admit/Disch: 09/05/23 [...] Signatures Signed By: Elizabeth Christina RN 09/05/23 12:58NormalGood Samaritan HospitalIgA, Quant.on 40-17-5176DdD [Mass/Vol]85 mg/tZRwv14-061DaafcoGood Samaritan Hospital Comment on above:Result Comment: Performed at: [facility] [address] [place], [place] [id number] PhD Susan CadetPerformed By: #### [id number] #### [facility] [address], [place] [address]F-LO IGGon 49-70-6743pCA IgG Qn (S)2 unit/mLInvalid Interpretation Code0-5FSumma Health Akron CampusComment on above:Result Comment: Negative 0 - 5 Weak Positive 6 - 9 Positive >9 Performed at: [facility] [id number] PhD Susan CadetPerformed By: #### [id number] #### [facility] [address], [place] [address]Bwagodahnj Visit Summaryon 36-15-3303Vlmexmxujt Visit Summary Ambulatory Visit Summary MORRO MALONEY [...] Someone Will Contact You Regarding These Appointments\.br\ [facility] [place] External Ambulatory Referral, ENT, Dr. Clarke, Needs biopsy of thyroid nodule, 08/29/23 7:57:00 EDT, Thyroid noduleGood Samaritan HospitalCBC w/ Auto Diffon 95-48-1511Prwvbpidfldl Ql (Bld)PRESENTInvalid Interpretation Code [facility] Samaritan HospitalComment on above:Performed By: #### [id number] #### [facility] [address], [place] [address]Pfuksjuak/100 WBC (Bld)0.4 %Normal0.0-2.0Good Samaritan HospitalComment on above:Performed By: #### [id number] #### [facility] [address], [place] [address]Kbcnywefb/Leukocytes Auto (Bld) [Pure # fraction]0.0 E9/LNormal 0.0-0.2FSumma Health Akron CampusComment on above:Performed By: #### [id number] #### [facility] [address], [place] [address]Csqgkivzxmn (Bld) [#/Vol]0.0 E9/LNormal0.0-0.5FSumma Health Akron CampusComment on above:Performed By: #### [id number] #### [facility] [address], [place] [address]Kpronedryxy/100 WBC (Bld)0.0 %Normal0.0-8.0Good Samaritan HospitalComment on above:Performed By: #### [id number] #### [facility] [address], [place] [address]Okykemuawmc distribution width (RBC) [Ratio]28.2 %High10.9-14.2 [facility] Samaritan HospitalComment on above:Performed By: #### [id number] #### [facility] [address], [place] [address]Uamtigddbt (Bld) [Volume fraction]34.4 %Kyzamc00.0-46.0Good Samaritan HospitalComment on above:Performed By: #### [id number] #### [facility] [address], [place] [address]Hymfmcluil (Bld) [Mass/Vol]10.6 g/dLLow12.0-16.0Good Samaritan HospitalComment on above:Performed By: #### [id number] #### [facility] [address] [place] [address]Iztdjtzeelm Auto Ql (Bld)PRESENTInvalid Interpretation Code [facility] Samaritan HospitalComment on above:Performed By: #### [id number] #### [facility] [address] [place] [address]Jchhvasnmnf (Bld) [#/Vol]2.8 E9/LNormal1.0-4.0Good Samaritan HospitalComment on above:Performed By: #### [id number] #### [facility] [address] [place] [address]Ourwirryisk/100 WBC (Bld)31.5 %Yiuhmg46.0-50.0Good Samaritan HospitalComment on above:Performed By: #### [id number] #### [facility] [address] [place] [address]ESX (RBC) [Entitic mass]22.7 pgLow27.0-34.0Good Samaritan HospitalComment on above:Performed By: #### [id number] #### [facility] [address] [place] [address]PMXO (RBC) [Mass/Vol]30.8 g/dLLow31.4-36.0Good Samaritan HospitalComment on above:Performed By: #### [id number] #### [facility] [address] [place] [address]GQL (RBC) [Entitic vol]73.7 fLLow80.0-100.0Good Samaritan HospitalComment on above:Performed By: #### [id number] #### [facility] [address] [place] [address]Rmdylukpxo Ql (Bld)PRESENTInvalid Interpretation CodeGood Samaritan HospitalComment on above:Performed By: #### [id number] #### [facility] [address] [place] [address]Ckzyyzcjl (Bld) [#/Vol]0.6 E9/LNormal0.2-1.0Good Samaritan HospitalComment on above:Performed By: #### [id number] #### [facility] [address] [place] [address]Axojfgpxpkd (Bld) [#/Vol]5.3 E9/LNormal2.0-7.5FSumma Health Akron CampusComment on above:Performed By: #### [id number] #### [facility] [address] [place] [address]Bbdyyddlgzm/100 WBC (Bld)60.9 %Utthde20.0-75.0Good Samaritan HospitalComment on above:Performed By: #### [id number] #### [facility] [address] [place] [address]Imlfjseh mean volume (Bld) [Entitic vol]7.6 fLNormal6.4-10.8 [facility] Samaritan HospitalComment on above:Performed By: #### [id number] #### [facility] [address] [place] [address]Bcwzqixmi (Bld) [#/Vol]316.0 E9/FUrnfbb060.0-500.0Good Samaritan HospitalComment on above:Performed By: #### [id number] #### [facility] [address] [place] [address]RYR (Bld) [#/Vol]4.7 E12/LNormal4.3-5.9Good Samaritan HospitalComment on above:Performed By: #### [id number] #### [facility] [address] [place] [address]HJX size Nom (Bld)SEE MORPHOLOGYInvalid Interpretation Code [facility] Samaritan HospitalComment on above:Performed By: #### [id number] #### [facility] [address], [place] [address]WCD corrected for nucl RBC Auto (Bld) [#/Vol]8.7 E9/LNormal 4.0-11.0Good Samaritan HospitalComment on above:Performed By: #### [id number] #### [facility] [address], [place] [address]Saxvlxqepnhayfjq Office/Clinic Noteon 09-01-2023 Gastroenterology Office/Clinic NoteGastroenterology Office/Clinic [...] fL Low (08/12/23) Chloride: 104 mmol/L (08/12/23) Otoe Absolute: 0.5 E9/L (08/12/23) CO2: 24 mmol/L (08/12/23) Otoe Auto: 6.7 % (08/12/23) Creatinine: 1 mg/dL [...] Allergies Social H (more content not included)...NormalFisher [facility] Medical CenterComment on above:Result Comment: Electronically Signed By: Vinay INGRAM, Stefan Patton.br\Date and Time Signed: 08/31/2412:55 EDTHEMATOLOGYOrdered By: SYSTEM SYSTEM on 81-20-3908Oklbgyyqiiey Ql (Bld)PRESENT *NA* (09/01/23 2:49 PM)Invalid Interpretation CodeRemisol HemeBasophils/100 WBC (Bld) 0.4 %Normal0.0 - 2.0 %Remisol HemeBasophils/Leukocytes Auto (Bld) [Pure # fraction]0.0 E9/LNormal0.0 - 0.2 E9/LRemisol HemeEosinophils (Bld) [#/Vol]0.0 E9/LNormal0.0 - 0.5 E9/LRemisol HemeEosinophils/100 WBC (Bld)0.0 %Normal0.0 - 8.0 %Remisol HemeErythrocyte distribution width (RBC) [Ratio]28.2 %High10.9 - 14.2 %Remisol HemeHematocrit (Bld) [Volume fraction]34.4 %Npfsjl35.0 - 46.0 % Remisol HemeHemoglobin (Bld) [Mass/Vol]10.6 g/dLLow12.0 - 16.0 gm/dLRemisol Heme Hypochromia Auto Ql (Bld)PRESENT *NA* (09/01/23 2:49 PM)Invalid Interpretation CodeRemisol HemeLymphocytes (Bld) [#/Vol]2.8 E9/LNormal1.0 - 4.0 E9/LRemisol HemeLymphocytes/100 WBC (Bld)31.5 % Bdwair63.0 - 50.0 %Remisol HemeMCH (RBC) [Entitic mass]22.7 pgLow27.0 - 34.0 pg Remisol HemeMCHC (RBC) [Mass/Vol]30.8 g/dLLow31.4 - 36.0 gm/dLRemisol HemeMCV (RBC) [Entitic vol]73.7 fLLow80.0 - 100.0 fLRemisol HemeMicrocytes Ql (Bld) PRESENT *NA* (09/01/23 2:49 PM)Invalid Interpretation CodeRemisol HemeMonocytes (Bld) [#/Vol] 0.6 E9/LNormal0.2 - 1.0 E9/LRemisol HemeMonocytes/100 WBC (Bld)7.2 %Normal4.0 - 14.0 %Remisol HemeNeutrophils (Bld) [#/Vol]5.3 E9/LNormal2.0 - 7.5 E9/LRemisol HemeNeutrophils/100 WBC (Bld)60.9 %Jjvvrb15.0 - 75.0 %Remisol HemePlatelet mean volume (Bld) [Entitic vol]7.6 fLNormal6.4 - 10.8 fLRemisol HemePlatelets (Bld) [#/Vol]316.0 E9/EEgwmkc038.0 - 500.0 E9/LRemisol HemeRBC (Bld) [#/Vol]4.7 E12/L Normal4.3 - 5.9 E12/LRemisol HemeRBC size Nom (Bld)SEE MORPHOLOGY *NA* (09/01/23 2:49 PM)Invalid Interpretation CodeRemisol HemeWBC corrected for nucl RBC Auto (Bld) [#/Vol]8.7 E9/LNormal4.0 - 11.0 E9/LRemisol HemeConsenton [id number]#1.00Detwiler Memorial HospitalCoding Summary.on 41-10-6257Qtypcy Summary. EWVXTdut32QMd0hVm+PGhlYWQ+QQ5QUUEgE53rxEIafG4wI3UCEFoEQqumGILZEKuFHdAyiaIwIH3ndY NjZXJu [file] w9R3IUJfkLyrf (more content not included)...[facility] Consent for Treatmenton 61-34-1138Zqqasnq for Treatment [id number]#1.00TIFFNormalGood Samaritan HospitalErythropoiet Lvlon 49-61-1027Lpyxyrrtuslksr (EPO) Qn51.2 mIU/mLHigh 2.6-18.5Fisher [facility] Medical CenterComment on above:Result Comment: [employer] DxI 800 Immunoassay System Values obtained with different assay methods or kits cannot be used interchangeably. Results cannot be interpreted as absolute evidence of the presence or absence of malignant disease. Performed at: [facility] [id number] PhD Susan CadetPerformed By: #### [id number] #### [facility] [address], [place] [address]Nkleujgt Progress Noteon 54-18-9285Ajewauei Progress NoteChief Complaint Iron Deficiency; going over results, states had infusion last week. Diagnoses 1. 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) Iron deficiency anemia (D50.9: Iron deficiency anemia, unspecified) Ordered: folic acid, 1 mg = 1 tab(s), Oral, Daily, # 90 tab(s), Refills(s) 4, Pharmacy: [facility]/pharmacy #[id number], 161, cm, 08/15/23 11:32:00 EDT, Height/Length Dosing, 106.5, kg, 08/15/23 11:32:00 EDT, Weight Dosing CBC w/ Auto Diff Comprehensive Metabolic Panel Ferritin Folate Level [facility] Internal Ambulatory Referral Iron [...] Contact Information Jose LOZANO-KATT, Quyen Pozo, ONC [facility] [address] [place] [phone] Additional Instructions: refer to GI to consider endoscopy for iron deficiency anemia.- if none in [place], refer here at [facility] [place] folic acid 1mg daily- send 90 day supply with 4 refills to [facility], cmp, iron studies, folate in 8wks follow-up in 8wks with 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/ANALYST Medications Caplyta 42 mg oral capsule, 42 [...] 69 (Peripheral) RR (more content not included)...Normal [facility] w/ Auto Diffon 22-80-1455Bzbbcegpbbew Ql (Bld) PRESENTInvalid Interpretation CodeGreg [facility] Medical CenterComment on above: Performed By: #### [id number] #### [facility] [address] [place] [address]Pxazaejol/100 WBC (Bld)0.2 %Normal0.0-2.0Good Samaritan HospitalComment on above:Performed By: #### [id number] #### [facility] [address] [place] [address] 20[address]Qfmoiqfkc/Leukocytes Auto (Bld) [Pure # fraction]0.0 E9/LNormal 0.0-0.2FSumma Health Akron CampusComment on above:Performed By: #### [id number] #### [facility] [address], [place] [address]Ddqdunnwaqi (Bld) [#/Vol]0.0 E9/LNormal0.0-0.5FSumma Health Akron CampusComment on above:Performed By: #### [id number] #### [facility] [address] [place] [address]Sixpxbpxwsi/100 WBC (Bld)0.0 %Normal0.0-8.0Good Samaritan HospitalComment on above:Performed By: #### [id number] #### [facility] [address] [place] [address] 644[address]Clvcoihjzmq distribution width (RBC) [Ratio]24.6 %High10.9-14.2 [facility]aritan HospitalCommclaren bay region on above:Performed By: #### [id number] #### [facility] [address] [place] [address] 86651Lrgwjjajqb (Bld) [Volume fraction]30.8 %Low34.0-46.0Good Samaritan HospitalComment on above:Performed By: #### [id number] #### [facility] [address], [place] [address]Eqhgdweqaz (Bld) [Mass/Vol]9.4 g/dLLow12.0-16.0Good Samaritan HospitalComment on above:Performed By: #### [id number] #### [facility] [address] [place] [address] 666[address]Jvneasggdhr Auto Ql (Bld)PRESENTInvalid Interpretation Code [facility] Samaritan HospitalComment on above:Performed By: #### [id number] #### [facility] [address] [place] [address] 69188Hhbbbagbrve (Bld) [#/Vol]2.2 E9/LNormal1.0-4.0[facility] Samaritan HospitalComment on above:Performed By: #### [id number] #### [facility] [address] [place] [address] 80231Mlmwtbcooic/100 WBC (Bld)30.8 %Fqigvl80.0-50.0[facility] Samaritan HospitalComment on above:Performed By: #### [id number] #### [facility] [address] [place] [address] 833[address]LWK (RBC) [Entitic mass]22.2 pgLow27.0-34.0[facility] Samaritan HospitalComment on above:Performed By: #### [id number] #### [facility] [address] [place] [address] 40644IIIG (RBC) [Mass/Vol]30.5 g/dLLow31.4-36.0[facility] Samaritan HospitalComment on above:Performed By: #### [id number] #### [facility] [address] [place] [address] 80655ITT (RBC) [Entitic vol]72.7 fLLow80.0-100.0Good Samaritan HospitalComment on above:Performed By: #### [id number] #### [facility] [address] [place] [address] 47659Rgokirznd (Bld) [#/Vol]0.5 E9/LNormal0.2-1.0Good Samaritan HospitalComment on above:Performed By: #### [id number] #### [facility] [address] [place] [address] 64166Yepfeomqegd (Bld) [#/Vol]4.5 E9/LNormal2.0-7.5FSumma Health Akron CampusComment on above:Performed By: #### [id number] #### [facility] [address], [place] [address]Cvxwxdeoqra/100 WBC (Bld)62.3 %Kwyrsm81.0-75.0Good Samaritan HospitalComment on above:Performed By: #### [id number] #### [facility] [address], [place] [address]Cfiueaqqzw LM Ql (Bld)PRESENTInvalid Interpretation CodeGood Samaritan HospitalComment on above:Performed By: #### [id number] #### [facility] [address], [place] [address]Uoqcfhpd019.0 E9/JFryjrx993.0-500.0[facility] Comment on above:Performed By: #### [id number] #### [facility] [address], [place] [address]Hebdgjjx mean volume (Bld) [Entitic vol]7.4 fLNormal6.4-10.8 [facility] Samaritan HospitalComment on above:Performed By: #### [id number] #### [facility] [address], [place] [address]ZST (Bld) [#/Vol]4.2 E12/LLow4.3-5.9[facility] Comment on above:Performed By: #### [id number] #### [facility] [address], [place] [address]FDI size Nom (Bld)SEE MORPHOLOGYInvalid Interpretation Code [facility]aritan HospitalComment on above:Performed By: #### [id number] #### [facility] [address], [place] [address]YKU corrected for nucl RBC Auto (Bld) [#/Vol]7.2 E9/LNormal 4.0-11.0[facility]aritan HospitalComment on above:Result Comment: Results are consistent with previous pathologist reviewPerformed By: #### [id number] #### [facility] [address], [place] [address]VSIETLTFHIzlrtqo By: SYSTEM SYSTEM on 20-81-3119Mbmcmyr [Mass/Vol]4.5 g/dLNormal3.3 - 5.0 gm/dLRemisol ChemAlbumin/Globulin [Mass ratio] 1.5 {ratio}Normal1.1 - 2.2Remisol ChemALP [Catalytic activity/Vol]92 [iU]/d Rhiuzr88 - 98 Int._Unit/LRemisol ChemALT No additional P-5'-P [Catalytic activity/Vol]10 [iU]/dNormal6 - 46 Int._Unit/LRemisol ChemAnion gap [Moles/Vol] 12 mmol/LNormal6 - 16 mEq/LRemisol ChemAST [Catalytic activity/Vol]19 [iU]/d Normal5 - 43 Int._Unit/LRemisol ChemBilirubin [Mass/Vol]0.4 mg/dLNormal0.0 - 1.1 mg/dLRemisol ChemCalcium [Mass/Vol]9.5 mg/dLNormal8.9 - 11.1 mg/dLRemisol Chem Chloride [Moles/Vol]104 mmol/QZpclrb452 - 111 mmol/LRemisol ChemCO2 [Moles/Vol] 24 mmol/LAqefat58 - 31 mmol/LRemisol ChemCobalamin (Vitamin B12) [Mass/Vol]484 pg/gKJgcqak35 - 1500 pg/mLRemisol ChemCreatinine [Mass/Vol]1.0 mg/dLNormal0.5 - 1.3 mg/dLRemisol JqxnyTSB55 mL/min/1.73 j0Awjqzc>=59mL/min/1.73 p2Pzxgxmn Chem Ferritin [Mass/Vol]99 ng/mITfvbig55 - 307 ng/mLRemisol ChemFolate [Mass/Vol]6.2 ng/mLLow>=6.7ng/mLRemisol ChemGlobulin (S) [Mass/Vol]3.0 g/dLNormal1.4 - 4.0 gm/dLRemisol ChemGlucose [Mass/Vol]96 mg/sMFcxwcz63 - 199 mg/dLRemisol ChemIron [Mass/Vol]40 ug/eSAcopgc19 - 153 mcg/dLRemisol ChemIron binding capacity [Mass/Vol]360 ug/vZYgtnuu270 - 400 mcg/dLRemisol ChemIron saturation [Mass fraction]11 %Low20 - 50 %Remisol ChemPotassium [Moles/Vol]4.5 mmol/LNormal3.5 - 5.3 mmol/LRemisol ChemProtein [Mass/Vol]7.5 g/dLNormal6.0 - 7.8 gm/dLRemisol ChemSodium [Moles/Vol]135 mmol/TUyjmqy182 - 145 mmol/LRemisol ChemTransferrin [Mass/Vol]257 mg/eLEftbcj348 - 370 mg/dLRemisol ChemUrea nitrogen [Mass/Vol]18 mg/dLNormal5 - 21 mg/dLRemisol ChemUrea nitrogen/Creatinine [Mass ratio]18 mg/mg Fonzzo16 - 20Remisol ChemCMPon 18-32-5762Ypjkzmm [Mass/Vol]4.5 g/dLNormal3.3-5.0 [facility]itan HospitalComment on above:Performed By: #### [id number] #### [facility] [address], [place] [address]Cirgeja/Globulin (S) [Mass conc ratio]1.9Mfadup5.1-2.2FSumma Health Akron CampusComment on above:Performed By: #### [id number] #### [facility] [address], [place] [address]KXW [Catalytic activity/Vol]92 Int._Unit/OCuphgj59-89TpbjwzGood Samaritan HospitalComment on above:Performed By: #### [id number] #### [facility] [address], [place] [address]ZOV No additional P-5'-P [Catalytic activity/Vol]10 Int._Unit/L Normal6-46Good Samaritan HospitalComment on above:Performed By: #### [id number] #### [facility] [address], [place] [address]Pwpyd gap [Moles/Vol]12 mmol/LNormal6-16Good Samaritan HospitalComment on above:Performed By: #### [id number] #### [facility] [address], [place] [address]RCG [Catalytic activity/Vol]19 Int._Unit/LNormal5-43Good Samaritan HospitalComment on above:Performed By: #### [id number] #### [facility] [address], [place] [address]Ypmbohqsw [Mass/Vol]0.4 mg/dLNormal0.0-1.1FSumma Health Akron CampusComment on above:Performed By: #### [id number] #### [facility] [address], [place] [address]Qrnfdbb [Mass/Vol]9.5 mg/dLNormal8.9-11.1FSumma Health Akron CampusComment on above:Performed By: #### [id number] #### [facility] [address], [place] [address]Cbcmbmoq [Moles/Vol]104 mmol/JPawmut337-196RvnlziGood Samaritan HospitalComment on above:Performed By: #### [id number] #### [facility] [address], [place] [address]AR0 [Moles/Vol]24 mmol/KHlmimv37-62QsgaivGood Samaritan Hospital Comment on above:Performed By: #### [id number] #### [facility] [address], [place] [address]Uazvdwmdod [Mass/Vol]1.0 mg/dLNormal0.5-1.3FSumma Health Akron CampusComment on above:Performed By: #### [id number] #### [facility] [address], [place] [address]Ierkvtxk (S) [Mass/Vol]3.0 g/dLNormal1.4-4.0Good Samaritan HospitalComment on above:Performed By: #### [id number] #### [facility] [address], [place] [address]Gljmjhl [Mass/Vol]96 mg/uYLvsfxw26-666PzgoksGood Samaritan HospitalComment on above:Performed By: #### [id number] #### [facility] [address], [place] [address]Icuouqlna [Moles/Vol]4.5 mmol/LNormal3.5-5.3FSumma Health Akron CampusComment on above:Performed By: #### [id number] #### [facility] [address], [place] [address]Vqdeeao [Mass/Vol]7.5 g/dLNormal6.0-7.8[facility]aritan HospitalComment on above:Performed By: #### [id number] #### [facility] [address], [place] [address]Vhyxer [Moles/Vol]135 mmol/PKqphet985-297ImuwncGood Samaritan HospitalComment on above:Performed By: #### [id number] #### [facility] [address] [place] [address]Nxrz nitrogen [Mass/Vol]18 mg/dLNormal5-21Good [facility]aritan HospitalComment on above:Performed By: #### [id number] #### [facility] [address] [place] [address]Mgff nitrogen/Creatinine [Mass ratio]18 No QdstjUknslo56-45 [facility]itan HospitalComment on above:Performed By: #### [id number] #### [facility] [address] [place] [address]Skryfga for Treatmenton 56-20-1451Wxrmmbw for Treatment [id number]#[id number] Samaritan HospitalFerritinon 64-82-6673Ewkkzxrn [Mass/Vol]99 ng/mSXbdqdx30-205QtmwzvGood Samaritan HospitalComment on above:Performed By: #### [id number] #### [facility] [address], [place] [address]Ytfbfxsj 24-17-7694Hqbfya [Mass/Vol]6.2 ng/mLLow>=6.7FSumma Health Akron CampusComment on above:Performed By: #### [id number] #### [facility] [address] [place], [place] [address]VHCNZGDXWOSddgzzd By: SYSTEM SYSTEM on 58-88-5081Swcoyafttjei Ql (Bld)PRESENT *NA* (08/12/23 6:37 AM)Invalid Interpretation [...] - 4.0 E9/LRemisol HemeLymphocytes/100 WBC (Bld)30.8 % Wneplj15.0 - 50.0 %Remisol HemeMCH (RBC) [Entitic mass]22.2 pgLow27.0 - 34.0 pg Remisol HemeMCHC (RBC) [Mass/Vol]30.5 g/dLLow31.4 - 36.0 gm/dLRemisol HemeMCV (RBC) [Entitic vol]72.7 fLLow80.0 - 100.0 fLRemisol HemeMonocytes (Bld) [#/Vol] 0.5 E9/LNormal0.2 - 1.0 E9/LRemisol HemeMonocytes/100 WBC (Bld)6.7 %Normal4.0 - 14.0 %Remisol HemeNeutrophils (Bld) [#/Vol]4.5 E9/LNormal2.0 - 7.5 E9/LRemisol HemeNeutrophils/100 WBC (Bld)62.3 %Xmjsov00.0 - 75.0 %Remisol HemeOvalocytes LM Ql (Bld)PRESENT *NA* (08/12/23 6:37 AM)Invalid Interpretation CodeRemisol HkvdKtznuypx595.0 E9/LNormal 150.0 - 500.0 E9/LRemisol HemePlatelet mean [...] Results are consistent with previous pathologist reviewIronon 06-46-6567Kwde [Mass/Vol]40 microgram/lALjzwby91-321DeakbiGood Samaritan HospitalComment on above:Performed By: #### [id number] #### [facility] [address], [place] [address]Usbv Saturationon 59-38-9011Uinh binding capacity [Mass/Vol]360 microgram/iIUzlytj777-478XrbmriGood Samaritan HospitalComment on above:Performed By: #### [id number] #### [facility] [address], [place] [address]Drum saturation [Mass fraction]11 %Gzx46-88HdjrmpGood Samaritan HospitalComment on above:Performed By: #### [id number] #### [facility] [address], [place] [address]Bibib Counton 00-28-8733Brsxibbhlkhik/100 RBC (Bld)5.1 %High 0.5-2.2Fisher [facility] Medical CenterComment on above:Performed By: #### [id number] #### [facility] [address], [place] [address]Ryhhysnukjuph 88-18-1960Qrqieitjauy [Mass/Vol]257 mg/dLNormal 200-370Good [facility]aritan HospitalComment on above:Performed By: #### [id number] #### [facility] [address], [place] [address]Lxf B12on 23-47-6700Hhinpbyyy (Vitamin B12) [Mass/Vol]484 pg/mL Jtsgdo96-7348LeebzfGood Samaritan HospitalComment on above:Performed By: #### [id number] #### [facility] [address] [place] [address]jCKXby 87-86-6295wNSB63 mL/min/1.73 j0Levfxj>=59Good Samaritan HospitalComment on above:Order Comment: Order added by Discern Expert. Performed By: #### [id number] #### [facility] [address], [place] [address]Knopld Summary.on 80-62-7977Ktowkt Summary. DEURWfcw77XGy0jHs+PGhlYWQ+YU4KFLIeN43sdVIlmO3cG6ETNTdMRjdkMJQXPPdPToLgpbUuEQ7xqU NjZXJu [file] BFcnX00lrJWiy (more content not included)...[facility] Coding Summary.on 69-17-1386Xrqipq Summary. AQNMMhld45VNd7pSu+PGhlYWQ+GW1EPEWvV76qcARhcE1aM7PRUNfXXqqsTDSHEOiYUaNuxwRrWP3kcN NjZXJu [file] TAFoFZyjB82gk (more content not included)...[facility] Consent for Treatmenton 20-78-6902Jktsopb for Treatment [id number]#1.00TIFAvita Health System Ontario HospitalPath. Reviewon 88-91-7089Vdtm ReviewPeripheral Blood Smear:Invalid Interpretation CodeGood Samaritan HospitalComment on above:Order Comment: Order added by Discern ExpertPerformed By: #### [id number] #### [facility] [address], [place] [address]Ojkdudwer Orderon 00-83-0114Luitxkjcz Order [id number]#1.00TIFAvita Health System Ontario HospitalBB Draw & Holdon 79-00-6038XN D&HSample drawn for Blood BaNThe Jewish HospitalComment on above:Performed By: #### [id number] #### [facility] [address], [place] [address]KFKna 19-01-7497Lolsi gap [Moles/Vol]11 mmol/LNormal6-16[facility]aritan HospitalComment on above:Performed By: #### [id number] #### [facility] [address], [place] [address]Jfbjurd [Mass/Vol]9.1 mg/dLNormal8.9-11.1FSumma Health Akron CampusComment on above:Performed By: #### [id number] #### [facility] [address], [place] [address]Msgxwlbn [Moles/Vol]105 mmol/RJwuqvj918-825VfrlisGood Samaritan HospitalComment on above:Performed By: #### [id number] #### [facility] [address], [place] [address]RS4 [Moles/Vol]26 mmol/PVvtelf03-91ZuyogoGood Samaritan Hospital Comment on above:Performed By: #### [id number] #### [facility] [address], [place] [address]Gbeoavlzzl [Mass/Vol]1.0 mg/dLNormal0.5-1.3FSumma Health Akron CampusComment on above:Performed By: #### [id number] #### [facility] [address], [place] [address]Xspgchf [Mass/Vol]109 mg/mYSylyba75-791TatdleGood Samaritan HospitalComment on above:Performed By: #### [id number] #### [facility] [address], [place] [address]Uloykealr [Moles/Vol]3.9 mmol/LNormal3.5-5.3FSumma Health Akron CampusComment on above:Performed By: #### [id number] #### [facility] [address], [place] [address]Bdvile [Moles/Vol]138 mmol/BLqzgtr105-901OhbnfdGood Samaritan HospitalComment on above:Performed By: #### [id number] #### [facility] [address], [place] [address]Dguz nitrogen [Mass/Vol]16 mg/dLNormal5-21[facility] HospitalComment on above:Performed By: #### [id number] #### [facility] [address] [place] [address]Dfuo nitrogen/Creatinine [Mass ratio]16 No GgtyoWaynxy55-76 [facility] HospitalComment on above:Performed By: #### [id number] #### [facility] [address], [place] [address]BHKgq 41-74-4376Ivilwdzissd peptide B (Bld) [Mass/Vol]20 pg/mL Normal5-80[facility]itan HospitalComment on above:Performed By: #### [id number] #### [facility] [address], [place] [address]TED w/ Auto Diffon 31-59-3616Fazesirpfzzh Ql (Bld)PRESENT Invalid Interpretation CodeGood Samaritan HospitalComment on above:Performed By: #### [id number] #### [facility] [address] [place] [address]Blprmyluh/100 WBC (Bld)0.2 %Normal0.0-2.0[facility]itan HospitalComment on above:Performed By: #### [id number] #### [facility] [address] [place] [address]Wjufjpsqg/Leukocytes Auto (Bld) [Pure # fraction]0.0 E9/LNormal 0.0-0.2FSumma Health Akron CampusComment on above:Performed By: #### [id number] #### [facility] [address] [place] [address]Lpkgdonfbgv (Bld) [#/Vol]0.0 E9/LNormal0.0-0.5FSumma Health Akron CampusComment on above:Performed By: #### [id number] #### [facility] [address] [place] [address]Kiypduqnwdl/100 WBC (Bld)0.0 %Normal0.0-8.0[facility] HospitalComment on above:Performed By: #### [id number] #### [facility] [address] [place] [address]Jazcmhjglck distribution width (RBC) [Ratio]19.5 %High10.9-14.2 [facility] HospitalComment on above:Performed By: #### [id number] #### [facility] [address] [place] [address]Ktjgkxoltg (Bld) [Volume fraction]24.2 %Low34.0-46.0[facility]itan HospitalComment on above:Performed By: #### [id number] #### [facility] [address] [place] [address]Kntkfuweiq (Bld) [Mass/Vol]7.3 g/dLLow12.0-16.0[facility]itan HospitalComment on above:Performed By: #### [id number] #### [facility] [address] [place] [address]Jfqzinuuxyi Auto Ql (Bld)PRESENTInvalid Interpretation Code [facility] HospitalComment on above:Performed By: #### [id number] #### [facility] [address] [place] [address]Cwywmttxrbu (Bld) [#/Vol]2.0 E9/LNormal1.0-4.0[facility] HospitalComment on above:Performed By: #### [id number] #### [facility] [address] [place] [address]Vilyufgkkfj/100 WBC (Bld)32.5 %Qwxnya13.0-50.0[facility] HospitalComment on above:Performed By: #### [id number] #### [facility] [address] [place] [address]LUZ (RBC) [Entitic mass]20.5 pgLow27.0-34.0[facility] HospitalComment on above:Performed By: #### [id number] #### [facility] [address] [place] [address]LAIB (RBC) [Mass/Vol]30.2 g/dLLow31.4-36.0[facility] HospitalComment on above:Performed By: #### [id number] #### [facility] [address] [place] [address]22[address]LPK (RBC) [Entitic vol]67.8 fLLow80.0-100.0[facility] HospitalComment on above:Performed By: #### [id number] #### [facility] [address] [place] [address]Zforpqnlyz Ql (Bld)PRESENTInvalid Interpretation CodeGood Samaritan HospitalComment on above:Performed By: #### [id number] #### [facility] [address] [place] [address]Phhswlsik (Bld) [#/Vol]0.5 E9/LNormal0.2-1.0[facility]itan HospitalComment on above:Performed By: #### [id number] #### [facility] [address], [place] [address]Zzdizeqekrh (Bld) [#/Vol]3.7 E9/LNormal2.0-7.5FSumma Health Akron CampusComment on above:Performed By: #### [id number] #### [facility] [address] [place] [address]Thiogzkymsx/100 WBC (Bld)59.4 %Cofhgw65.0-75.0[facility] HospitalComment on above:Performed By: #### [id number] #### [facility] [address] [place] [address]Cgdsxhab mean volume (Bld) [Entitic vol]7.5 fLNormal6.4-10.8 [facility] HospitalComment on above:Performed By: #### [id number] #### [facility] [address] [place] [address]Ucnqqirry (Bld) [#/Vol]342.0 E9/IRtlnvh772.0-500.0[facility] HospitalComment on above:Performed By: #### [id number] #### [facility] [address] [place] [address]DIX (Bld) [#/Vol]3.6 E12/LLow4.3-5.9[facility] Comment on above:Performed By: #### [id number] #### [facility] [address] [place] [address]FBI size Nom (Bld)SEE MORPHOLOGYInvalid Interpretation Code [facility] HospitalComment on above:Performed By: #### [id number] #### [facility] [address] [place] [address]Kcdcbjdnvhma LM Ql (Bld)PRESENTInvalid Interpretation Code [facility] HospitalComment on above:Performed By: #### [id number] #### [facility] [address] [place] [address]MSP corrected for nucl RBC Auto (Bld) [#/Vol]6.3 E9/LNormal 4.0-11.0Fisher [facility] Medical CenterComment on above:Performed By: #### [id number] #### [facility] [address] [place], [place] [address]ULNEUKHHMSngddrb By: SYSTEM SYSTEM on 82-79-3125Mxbujhtb HS pg/mLLow10.10 - 27.10 pg/mLRemisol ChemComment on above:Interpretive Data: The 95% CI (Confidence Interval) PPV (Positive Predictive Value) for myocardial i nfarction in females is 38 pg/mL, in males 51 pg/mL. The results should be used in conjunction withclinical conditions of myocardial infarction. (Access High Sensitivity Troponin I Instructions For Use, Sandra Eastland, September 2017)Albumin [Mass/Vol]4.3 g/dLNormal3.3 - 5.0 gm/dLRemisol Chem Albumin/Globulin [Mass ratio]1.7 {ratio}Normal1.1 - 2.2Remisol ChemALP [Catalytic activity/Vol]81 [iU]/uPwkcmz15 - 98 Int._Unit/LRemisol ChemALT No additional P-5'-P [Catalytic activity/Vol]12 [iU]/dNormal6 - 46 Int._Unit/L Remisol ChemAnion gap [Moles/Vol]11 mmol/LNormal6 - 16 mEq/LRemisol ChemAST [Catalytic activity/Vol]14 [iU]/dNormal5 - 43 Int._Unit/LRemisol ChemBilirubin [Mass/Vol]0.4 mg/dLNormal0.0 - 1.1 mg/dLRemisol ChemBilirubin.direct [Mass/Vol] 0.0 mg/dLNormal0.0 - 0.4 mg/dLRemisol ChemBilirubin.indirect [Mass or moles/Vol] 0.4 mg/dLNormal0.1 - 0.9 mg/dLRemisol ChemCalcium [Mass/Vol]9.1 mg/dLNormal8.9 - 11.1 mg/dLRemisol ChemChloride [Moles/Vol]105 mmol/UAvcdmr530 - 111 mmol/L Remisol ChemCO2 [Moles/Vol]26 mmol/VVwedlc23 - 31 mmol/LRemisol ChemCreatinine [Mass/Vol]1.0 mg/dLNormal0.5 - 1.3 mg/dLRemisol EgfefMJR42 mL/min/1.73 j5Qzkztw >=59mL/min/1.73 z2Bfyiceq ChemGlobulin (S) [Mass/Vol]2.6 g/dLNormal1.4 - 4.0 gm/dLRemisol ChemGlucose [Mass/Vol]109 mg/yGSaezpi93 - 199 mg/dLRemisol Chem Magnesium [Mass/Vol]2.0 mg/dLNormal1.3 - 2.4 mg/dLRemisol ChemPotassium [Moles/Vol]3.9 mmol/LNormal3.5 - 5.3 mmol/LRemisol ChemProtein [Mass/Vol]6.9 g/dLNormal6.0 - 7.8 gm/dLRemisol ChemSodium [Moles/Vol]138 mmol/AJdkwmo441 - 145 mmol/LRemisol ChemTroponin HSpg/mLLow10.10 - 27.10 pg/mLRemisol ChemComment on above:Interpretive Data: The 95% CI (Confidence Interval) PPV (Positive Predictive Value) for myocardial infarction in females is 38 pg/mL, in males 51 pg/mL. The results should be used in conjunction withclinical conditions of myocardial infarction. (Access High Sensitivity Troponin I Instructions For Use, Sandra Eastland, September 2017)Urea nitrogen [Mass/Vol]16 mg/dLNormal5 - 21 mg/dLRemisol ChemUrea nitrogen/Creatinine [Mass ratio]16 mg/gfTauupv34 - 20Remisol ChemCHEMISTRY Ordered By: Aracelis Kent on 25-04-6519Abxvzhneszs peptide B (Bld) [Mass/Vol]20 pg/mLNormal5 - 80 pg/mLCUR[facility] [place] [facility] [place] HemeManSSCOAGULATIONOrdered By: Aracelis Kent on 55-60-7336wFLH Coag (PPP) [Time]32.0 pJbdfxz19.1 - 36.5 second(s)[facility] [place] Auto Coag Comment on above:Interpretive Data: Parameter [...] the same coagulation reagent and instrumentation as [facility] [place]. Currently there are no coagulation studies available worldwide for children to 14 days, andno normal ranges. Heparin therapeutic range (represented by Anti-Factor Xa activity of 0.2 - 0.4 U/mL) corresponds to PTT of 56.6 - 109.0 sec.INR Coag (PPP) [Relative time]1.11 {INR}Invalid Interpretation CodeCURAHEALTH HOS[facility]ITAL [place] [facility] [place] Auto CoagComment on above:Interpretive Data: INR results are specifically intended to assess patients stabilized on long-term Anticoagulation therapy suggested INR s Less Intensive Anticoagulation 2.0 3.0 Conventional Range 3.0 4.5PT Coag (PPP) [Time]12.5 sNormal9.4 - 12.5 second(s) [facility] [place] Auto CoagComment on above:Interpretive Data: 15 days [...] the same coagulation reagent and instrumentation as [facility] [place]. Currently there are no coagulation studies available worldwide for children to 14 days, andno normal ranges.Consent for Treatmenton 00-51-1962Snblkwp for Treatment [id number]#1.00TIFFNoCorey HospitalDischarge Instructionson 77-38-2042Pikapbrxq Instructions [id number]#1.00TIFFNormalGreg [facility] Clinical Summaryon 49-92-5513NI Clinical Summary [address] [address] ED Clinical Summary Person Information Name: MORRO MALONEY/NewDusty Age: 37 Years : 1985 Sex: Female Language: Ugandan PCP: Cleo Hassan Marital Status: Visit Id: [...] 08/03/2023 14:14:52 08/03/2023 14:14:52 08/03/2023 14:14:52 ADDRESS: [facility] [place] [id number] PHYS DOC NOTES: MEDICAL INFORMATION: Prescriptions Given: [...] up: With: Address: When: José Antonio Benitez [facility] [place] [facility], [address] [place] [address]. [place] [address] In 3 days 08/06/2023 Comments: Make sure to follow-up with as discussed. Return to the emergency room if your symptoms get worse or any new symptoms. With: Address: When: Cleo Hernandez In 3 days DIAGNOSIS: 1:Shortness of breath; 2:AnemiaNormalFisher [facility]ron Medical CenterED Note-Nursing on 70-47-4937SB Note-Nursingthis RN enters room to d/c pt. [...] ER. josesito Ge RN updated at this time.[facility] CenterED Note-Physicianon 34-42-3054KO Note-PhysicianBasic Information Time Seen: Jose Maria Beck, [...] and Complexity of Problems Differential Diagnosis: [] [facility] Data External documents reviewed: [] My [...] Antonio Benitez In 3 days 08/06/2023 EDT [facility] [place] [facility] [address] [place] [address]- Additional Instructions: Make sure to foll (more content not included)...Normal [facility] HospitalComment on above:Result Comment: Electronically Signed By: Jose Maria Beck, Elizabeth Small\.br\Date and Time Signed: 08/02/2414:19 EDTED Patient Education Noteon 83-61-7251YE Patient Education NoteHematology Iron Deficiency Anemia, Adult [...] ? 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 ? Surgery or additional testing procedures to determine the cause of your anemia. You may need repeat blood tests to determine whether treatment is working. If the treatment does not seem to be working, you may need more tests. Follow these instructions at home: Medicines ? Take lwcs-nxp-khrdruu and prescription medicines only as told by [...] keep your urine pale yellow. ? Take qufw-ood-joboswx or prescription medicines. ? Eat foods that [...] cause of your iron deficiency. ? Take qdny-ucc-ikkotza and prescription medicines only as told by your health care provider. This includes iron supplem (more content not included)...Normal [facility] Patient Summaryon 58-20-5060VF Patient Summary [place] [id number] Patient Discharge Instructions Person Information Name: MORRO MALONEY Age: 37 Years Arrival Date: 08/03/2023 10:44:43 Discharge Diagnosis: 1:Shortness of breath; 2:Anemia Primary Care Physician: Cleo Hassan Provider Information Primary Provider: Elizabeth Moise M.D. Advanced Cosmetic Surgeon:None The exam and treatment you received in the Emergency Department were for an urgent problem and are not intended as complete care. It is important that you follow up with a doctor, nurse practitioner,or physician?s assistant infant teacher for ongoing care. If your symptoms become [...] Instructions: With: Address: When: José Antonio Benitez [facility] [place] [facility], [address] [place] [address] In 3 days 08/06/2023 Comments: Make sure [...] opioids can be used to help relieve ftbliczn-cx-drsmny pain and are often prescribed following a [...] your community drug take- back program or [employer] mail-back program, or flush them down the toilet, following guidance from the Food and Drug Administration (www.fda.gov/Drugs/ResourcesForYou). ? Visit www.cdc.gov/drugoverdose to learn about the ri (more content not included)...German HospitalHEMATOLOGYOrdered By: SYSTEM SYSTEM on 76-89-6397Buidtzhwqyay Ql (Bld)PRESENT *NA* (08/03/23 11:40 AM)Invalid Interpretation [...] - 4.0 E9/LRemisol HemeLymphocytes/100 WBC (Bld)32.5 % Aqzkmx35.0 - 50.0 %Remisol HemeMCH (RBC) [Entitic mass]20.5 pgLow27.0 - 34.0 pg Remisol HemeMCHC (RBC) [Mass/Vol]30.2 g/dLLow31.4 - 36.0 gm/dLRemisol HemeMCV (RBC) [Entitic vol]67.8 fLLow80.0 - 100.0 fLRemisol HemeMicrocytes Ql (Bld) PRESENT *NA* (08/03/23 11:40 AM)Invalid Interpretation CodeRemisol HemeMonocytes (Bld) [#/Vol] 0.5 E9/LNormal0.2 - 1.0 E9/LRemisol HemeMonocytes/100 WBC (Bld)7.9 %Normal4.0 - 14.0 %Remisol HemeNeutrophils (Bld) [#/Vol]3.7 E9/LNormal2.0 - 7.5 E9/LRemisol HemeNeutrophils/100 WBC (Bld)59.4 %Lhjwzs99.0 - 75.0 %Remisol HemePlatelet mean volume (Bld) [Entitic vol]7.5 fLNormal6.4 - 10.8 fLRemisol HemePlatelets (Bld) [#/Vol]342.0 E9/RIjlxtq249.0 - 500.0 E9/LRemisol HemeRBC (Bld) [#/Vol]3.6 E12/L Low4.3 - 5.9 E12/LRemisol HemeRBC size Nom (Bld)SEE MORPHOLOGY *NA* (08/03/23 11:40 AM)Invalid Interpretation CodeRemisol HemeSchistocytes LM Ql (Bld)PRESENT *NA* (08/03/23 11:40 AM)Invalid Interpretation CodeRemisol HemeWBC corrected for nucl RBC Auto (Bld) [#/Vol]6.3 E9/LNormal4.0 - 11.0 E9/LRemisol HemeHep Func Panelon 59-57-7742Bkjwbbz [Mass/Vol]4.3 g/dLNormal3.3-5.0[facility] Comment on above:Performed By: #### [id number] #### [facility] [address], [place] [address]Hbqdleb/Globulin (S) [Mass conc ratio]1.8Nejtpd3.1-2.2FSumma Health Akron CampusComment on above:Performed By: #### [id number] #### [facility] [address], [place] [address]PBF [Catalytic activity/Vol]81 Int._Unit/WJyqzgh12-98OqigszGood Samaritan HospitalComment on above:Performed By: #### [id number] #### [facility] [address], [place] [address]ZOU No additional P-5'-P [Catalytic activity/Vol]12 Int._Unit/L Normal6-46[facility]itan HospitalComment on above:Performed By: #### [id number] #### [facility] [address], [place] [address]WPV [Catalytic activity/Vol]14 Int._Unit/LNormal5-43[facility] HospitalComment on above:Performed By: #### [id number] #### [facility] [address], [place] [address]Bqdistxmf [Mass/Vol]0.4 mg/dLNormal0.0-1.1FSumma Health Akron CampusComment on above:Performed By: #### [id number] #### [facility] [address], [place] [address]Bieifylkh.direct [Mass/Vol]0.0 mg/dLNormal0.0-0.4FSumma Health Akron CampusComment on above:Performed By: #### [id number] #### [facility] [address] [place] [address]Guimmvypo.indirect [Mass or moles/Vol]0.4 mg/dLNormal0.1-0.9 [facility] HospitalComment on above:Performed By: #### [id number] #### [facility] [address] [place] [address]Pdutgliw (S) [Mass/Vol]2.6 g/dLNormal1.4-4.0[facility] HospitalComment on above:Performed By: #### [id number] #### [facility] [address] [place] [address]220[address]Rgojxff [Mass/Vol]6.9 g/dLNormal6.0-7.8[facility] HospitalComment on above:Performed By: #### [id number] #### [facility] [address] [place] [address]Bcmsxgytw Correspondenceon 11-48-1290Oxlgckifu Correspondence [id number]#1.00TIFFNormalGood Samaritan HospitalMagnesiumon 60-16-6711Zblmvcexr [Mass/Vol]2.0 mg/dLNormal1.3-2.4FSumma Health Akron CampusComment on above:Performed By: #### [id number] #### [facility] [address] [place] [address] 50974AV & PTTon 76-39-2379cXPL Coag (PPP) [Time]32.0 second(s)Normal 25.1-36.5FSumma Health Akron CampusComment on above:Result Comment: Parameter 15 days - [...] the same coagulation reagent and instrumentation as [facility] [place]. Currently there are no coagulation studies available worldwide for children to 14 days, andno normal ranges. Heparin therapeutic range (represented by Anti-Factor Xa activity of 0.2 - 0.4 U/mL) corresponds to PTT of 56.6 - 109.0 sec.Performed By: #### [id number] #### [facility] [address], [place] [address]FEF Coag (PPP) [Relative time]1.11 {INR}Invalid Interpretation CodeFishThomas B. Finan CenterComment on above:Result Comment: INR results are specifically intended to assess patients stabilized on long-term Anticoagulation therapy suggested INR?s ?Less Intensive Anticoagulation? 2.0 ? 3.0 Conventional Range 3.0 ? 4.5Performed By: #### [id number] #### [facility] [address], [place] [address]QV Coag (PPP) [Time]12.5 second(s)Normal9.4-12.5Fisher [facility] Baltimore Medical CenterComment on above:Result Comment: 15 days [...] the same coagulation reagent and instrumentation as [facility] [place]. Currently there are no coagulation studies available worldwide for children to 14 days, andno normal ranges.Performed By: #### [id number] #### [facility] [address], [place] [address]Zcfyswrx 0 Hr.on 25-76-8009Zfsvllfa HS<2.09Ovk02.10-27.10[facility] Samaritan HospitalComment on above:Result Comment: The 95% CI (Confidence Interval) PPV (Positive Predictive Value) for myocardial infarction in females is 38 pg/mL, in males 51 pg/mL. The results should be used in conjunction with clinical conditions of myocardial infarction. (Access High Sensitivity Troponin I Instructions For Use, [employer], September 2017)Performed By: #### [id number] #### [facility] [address], [place] [address]Hlpskawd 1 Hr.on 69-18-8261Rcvteysl HS<2.43Noj67.10-27.10[facility] Samaritan HospitalComment on above:Order Comment: Troponin 1 hr due @ 1240 Result Comment: The 95% CI (Confidence Interval) PPV (Positive Predictive Value) for myocardial infarction in females is 38 pg/mL, in males 51 pg/mL. The results should be used in conjunction with clinical conditions of myocardial infarction. (Access High Sensitivity Troponin I Instructions For Use, [employer], September 2017)Performed By: #### [id number] #### [facility] [address], [place] [address]RF Chest 2 Viewson 45-79-0683PN Chest 2 ViewsExam Date/Time: 08/03/2023 12:42 EDT [...] Zhou in mGy = na DAP = naNormalGood Samaritan HospitaleGFRon 24-80-5315yFJA44 mL/min/1.73 m2 Normal>=59Good [facility]aritan HospitalComment on above:Order Comment: Order added by Discern Expert.Performed By: #### [id number] #### [facility] [address] [place], [place] [address]Khogze Medicine Phone Visit - Telehealthon 55-03-7730Ltsywt Medicine Phone Visit - TelehealthI Staff Morro [...] bedtime), # 30 cap(s), Refills(s) 0, Pharmacy: [facility]/pharmacy #[id number], 161, cm, 03/29/23 15:27:00 EST, Height/Length Dosing, 107.2, kg, 03/29/23 15:27:00 EST, Weight Dosing methylPREDNISolone, = 1 packet(s), Oral, As Directed, as directed on package labeling, X 6 day(s), # 21 tab(s), Refills(s) 0, Pharmacy: [facility]/pharmacy #[id number], 161, cm, 08/01/23 14:17:00 EDT, Height/Length Dosing, 107.3, kg, 08/01/23 14:17:00 EDT, Weight Dosing predniSONE, See Instructions, 6 tabs for 2 days,5 tabs for 2 days,4 tabs for 2 days,3 tabs for 2 days,2 tabs for 2 days,1 tab for 2 days, # 42 tab(s), Refills(s) 0, [id number] 161,cm, 03/29/23 15:27:00 EST, Height/Length Dosing, 107.2, kg, ... CBC w/ Auto Diff Iron Level Lab Specimen Collect 60656 Thyroid Stimulating Hormone Vitamin D 25 Hydroxy [...] Recorded SARS-CoV-2 (COVID-19) mRNA BNT-162b2 vax 03/12/2020 RecordedNormfishGood Samaritan HospitalComment on above:Result Comment: Electronically Signed By: Cleo Hassan\.br\Date and Time Signed: 08/02/23 13:42 EDTPhysician Orderon 31-15-3027Vqzfebpfn [id number]#1.00TIFFNormfish [facility] HospitalAmbulatory Visit Summaryon 87-18-5546Eusccjrxka Visit Summary MORRO MALONEY :1985 Visit Date:08/01/2023 [...] you for choosing us for your care. [facility] HospitalCBC w/ Auto Diffon 08-01-2023 Anisocytosis Ql (Bld)PRESENTInvalid Interpretation [facility] HospitalComment on above:Performed By: #### [id number] #### [facility] [address], [place] [address]Bytqfyvgxus Auto Ql (Bld)PRESENTInvalid Interpretation Code [facility] HospitalComment on above:Performed By: #### [id number] #### [facility] [address], [place] [address]Ihqrbhkryw Ql (Bld)PRESENTInvalid Interpretation [facility] HospitalComment on above:Performed By: #### [id number] #### [facility] [address], [place] [address]Frpdxkfznv LM Ql (Bld)PRESENTInvalid Interpretation [facility] HospitalComment on above:Performed By: #### [id number] #### [facility] [address], [place] [address]WYC size Nom (Bld)SEE MORPHOLOGYInvalid Interpretation Code [facility]itan HospitalComment on above:Performed By: #### [id number] #### [facility] [address], [place] [address]KNL w/ Auto DiffOrdered By: SYSTEM SYSTEM on 08-01-2023 Basophils/100 WBC (Bld)0.1 %Normal0.0-2.0Remisol HemeComment on above:Performed By: #### [id number] #### [facility] [address], [place] [address]Evrxccldd/Leukocytes Auto (Bld) [Pure # fraction]0.0 E9/LNormal 0.0-0.2Remisol HemeComment on above:Performed By: #### [id number] #### [facility] [address] [place] [address]Nivyedrbhdn (Bld) [#/Vol]0.0 E9/LNormal0.0-0.5Remisol Heme Comment on above:Performed By: #### [id number] #### [facility] [address] [place] [address]Whnmmdnefpe/100 WBC (Bld)0.0 %Normal0.0-8.0Remisol HemeComment on above:Performed By: #### [id number] #### [facility] [address] [place] [address]Linzsvrdlwr distribution width (RBC) [Ratio]19.7 %High10.9-14.2 Remisol HemeComment on above:Performed By: #### [id number] #### [facility] [address] [place] [address]Amrrxunyxn (Bld) [Volume fraction]23.0 %Low34.0-46.0Remisol HemeComment on above:Performed By: #### [id number] #### [facility] [address] [place] [address]Remiwzwsxq (Bld) [Mass/Vol]7.1 g/dLLow12.0-16.0Remisol Heme Comment on above:Performed By: #### [id number] #### [facility] [address] [place] [address]Xkrkjsvhpka (Bld) [#/Vol]2.2 E9/LNormal1.0-4.0Remisol Heme Comment on above:Performed By: #### [id number] #### [facility] [address] [place] [address]Bbqiyhdtumf/100 WBC (Bld)28.2 %Kqatax77.0-50.0Remisol Heme Comment on above:Performed By: #### [id number] #### [facility] [address], [place] [address]MIN (RBC) [Entitic mass]21.1 pgLow27.0-34.0Remisol HemeComment on above:Performed By: #### [id number] #### [facility] [address], [place] [address]TAGG (RBC) [Mass/Vol]30.9 g/dLLow31.4-36.0Remisol HemeComment on above:Performed By: #### [id number] #### [facility] [address], [place] [address]RGD (RBC) [Entitic vol]68.2 fLLow80.0-100.0Remisol HemeComment on above:Performed By: #### [id number] #### [facility] [address] [place] [address]Buewwlffd (Bld) [#/Vol]0.5 E9/LNormal0.2-1.0Remisol HemeComment on above:Performed By: #### [id number] #### [facility] [address] [place] [address]Fklpaqxlekj (Bld) [#/Vol]5.1 E9/LNormal2.0-7.5Remisol Heme Comment on above:Performed By: #### [id number] #### [facility] [address] [place] [address]Ufomzlfxlye/100 WBC (Bld)64.9 %Fothov96.0-75.0Remisol Heme Comment on above:Performed By: #### [id number] #### [facility] [address], [place] [address]Fmzzaufo391.0 E9/HXiifsj047.0-500.0Remisol HemeComment on above:Performed By: #### [id number] #### [facility] [address] [place] [address]Ydlvllrn mean volume (Bld) [Entitic vol]7.6 fLNormal6.4-10.8 Remisol HemeComment on above:Performed By: #### [id number] #### [facility] [address], [place] [address]FUU (Bld) [#/Vol]3.4 E12/LLow4.3-5.9Remisol HemeComment on above:Performed By: #### [id number] #### [facility] [address], [place] [address]XMJ corrected for nucl RBC Auto (Bld) [#/Vol]7.9 E9/LNormal 4.0-11.0Remisol HemeComment on above:Performed By: #### [id number] #### [facility] [address], [place] [address]ZKASIOOOEVhpdqle By: SYSTEM SYSTEM on - hydroxyvitamin D3 [Mass/Vol]20.4 ng/mLLow30.0 - 100.0 ng/mLRemisol ChemIron [Mass/Vol]11 ug/dLLow35 - 153 mcg/dLRemisol ChemTSH Qn1.85 m[IU]/LNormal0.34 - 5.60 mcIU/mLRemisol ChemFami Medicine Office/Clinic Noteon 13-46-0893Rlboaz Medicine Office/Clinic NoteI Staff Morro is a [...] day(s), # 21 tab(s), Refills(s) 0, Pharmacy: [facility]/pharmacy #[id number], 161, cm, 08/01/23 14:17:00 EDT, Height/Length Dosing, 107.3, kg, 08/01/23 14:17:00 EDT, Weight Dosing CBC w/ Auto Diff Iron Level Lab Specimen Collect 89170 Thyroid Stimulating Hormone Vitamin D 25 Hydroxy 2. Fatigue (R53.83: Other fatigue) will check labs today Ordered: methylPREDNISolone, = 1 packet(s), Oral, As Directed, as directed on package labeling, X 6 day(s), # 21 tab(s), Refills(s) 0, Pharmacy: [facility]/pharmacy #[id number], 161, cm, 08/01/23 14:17:00 EDT, Height/Length Dosing, 107.3, kg, 08/01/23 14:17:00 EDT, Weight Dosing CBC w/ Auto Diff Iron Level Lab Specimen Collect 01947 Thyroid Stimulating Hormone Vitamin D 25 Hydroxy 3. Non-smoker (Z78.9: Other specified health status) continue not smoking Ordered: methylPREDNISolone, = 1 packet(s), Oral, As Directed, as directed on package labeling, X 6 day(s), # 21 tab(s), Refills(s) 0, Pharmacy: [facility]/pharmacy #[id number], 161, cm, 08/01/23 14:17:00 EDT, Height/Length Dosing, 107.3, kg, 08/01/23 14:17:00 EDT, Weight Dosing predniSONE, See Instructions, 6 tabs for 2 days,5 tabs for 2 days,4 tabs for 2 days,3 tabs for 2 days,2 tabs for 2 days,1 tab for 2 days, # 42 tab(s), Refills(s) 0, Pharmacy: [facility]/pharmacy #[id number], 161,cm, 03/29/23 15:27:00 EST, Height/Length Dosing, 107.2, kg, 02/... CBC w/ Auto Diff Iron Level Lab Specimen Collect 76021 Thyroid Stimulating Hormone Vitamin D 25 Hydroxy 4. BMI 40.0-44.9, adult (Z68.41: Body mass index [BMI] 40.0-44.9, adult) BMI education complete Ordered: methylPREDNISolone, = 1 packet(s), Oral, As Directed, as directed on package labeling, X 6 day(s), # 21 tab(s), Refills(s) 0, Pharmacy: [facility]/pharmacy #[id number], 161, cm, 08/01/23 14:17:00 EDT, Height/Length Dosing, 107.3, kg, 08/01/23 14:17:00 EDT, Weight Dosing predniSONE, See Instructions, 6 tabs for 2 days,5 tabs for 2 days,4 tabs for 2 days,3 tabs for 2 days,2 tabs for 2 days,1 tab for 2 days, # 42 tab(s), Refills(s) 0, Pharmacy: [facility]/pharmacy #[id number], 161,cm, 03/29/23 15:27:00 EST, Height/Length Dosing, 107.2, kg, /... CBC w/ Auto Diff Iron Level Lab Specimen Collect 89723 Thyroid Stimulating Hormone Vitamin D 25 Hydroxy Orders: gabapentin, 300 mg = 1 cap(s), Oral, Once a day (at bedtime), # 30 cap(s), Refills(s) 0, Pharmacy: [facility]/pharmacy #[id number], 161, cm, 03/29/23 15:27:00 EST, [...] BNT-162b2 vax 03/12/2020 Recor (more content not included)...[facility] HospitalComment on above:Result Comment: Electronically Signed By: Cleo Hassan\.br\Date and Time Signed: 08/01/23 15:12 EDTHEMATOLOGYOrdered By: SYSTEM SYSTEM on 77-78-2029Mcbzxniapoox Ql (Bld) PRESENT *NA* (08/01/23 3:00 PM)Invalid Interpretation CodeRemisol HemeHypochromia Auto Ql (Bld)PRESENT *NA* (08/01/23 3:00 PM)Invalid Interpretation CodeRemisol HemeMicrocytes Ql (Bld) PRESENT *NA* (08/01/23 3:00 PM)Invalid Interpretation CodeRemisol HemeMonocytes/100 WBC (Bld) 6.8 %Normal4.0 - 14.0 %Remisol HemeOvalocytes LM Ql (Bld)PRESENT *NA* (08/01/23 3:00 PM)Invalid Interpretation CodeRemisol HemeRBC size Nom (Bld)SEE MORPHOLOGY *NA* (08/01/23 3:00 PM)Invalid Interpretation CodeRemisol HemeFamily Medicine Office/Clinic Noteon 41-87-3965Qkbpig Medicine Office/Clinic NoteHPI Staff Morro is a [...] needed. [facility] Ordered: predniSONE, See Instructions, 6 tabs for 2 days,5 tabs for 2 days,4 tabs for 2 days,3 tabs for 2 days,2 tabs for 2 days,1 tab for 2 days, # 42 tab(s), Refills(s) 0, Pharmacy: [facility]/pharmacy #[id number], 161,cm, 03/29/23 15:27:00 EST, Height/Length Dosing, 107.2, kg, ... 2. Low back pain (M54.50: Low back pain, unspecified) steroid sent to pharmcy Ordered: predniSONE, See Instructions, 6 tabs for 2 days,5 tabs for 2 days,4 tabs for 2 days,3 tabs for 2 days,2 tabs for 2 days,1 tab for 2 days, # 42 tab(s), Refills(s) 0, Pharmacy: [facility]/pharmacy #[id number], 161,cm, 03/29/23 15:27:00 EST, Height/Length Dosing, 107.2, kg, 02/... 3. BMI 40.0-44.9, adult (Z68.41: Body mass index [BMI] 40.0-44.9, adult) BMI education complete Ordered: predniSONE, See Instructions, 6 tabs for 2 days,5 tabs for 2 days,4 tabs for 2 days,3 tabs for 2 days,2 tabs for 2 days,1 tab for 2 days, # 42 tab(s), Refills(s) 0, Pharmacy: [facility]/pharmacy #[id number], 161,cm, 03/29/23 15:27:00 EST, Height/Length Dosing, 107.2, kg, 02/... 4. Non-smoker (Z78.9: Other specified health status) continue not smoking Ordered: predniSONE, See Instructions, 6 tabs for 2 days,5 tabs for 2 days,4 tabs for 2 days,3 tabs for 2 days,2 tabs for 2 days,1 tab for 2 days, # 42 tab(s), Refills(s) 0, Pharmacy: [facility]/pharmacy #[id number], 161,cm, 03/29/23 15:27:00 EST, Height/Length Dosing, [...] Recorded SARS-CoV-2 (COVID-19) mRNA BNT-162b2 vax 03/12/2020 RecordedNoCorey HospitalComment on above:Result Comment: Electronically Signed By: Cleo Hassan\.ariel\Date and Time Signed: 03/30/23 12:42 ESTED Note-Physicianon 76-95-1389OV Note-[id number]#1.00TIFF [facility] Medicine Office/Clinic Noteon 01-25-2023 Family Medicine Office/Clinic NoteHPI Staff Morro is a 37 year old female presenting to discuss results ER followup: Hospital: [facility] Visit date: 01/05/23 Symptoms the [...] Metabolic Panel eGFR HgbA1c Lab Specimen Collect 82546 2. Non-smoker (Z78.9: Other specified health status) continue not smoking Ordered: Automated Diff CBC w/ Auto Diff Comprehensive Metabolic Panel eGFR HgbA1c Lab Specimen Collect 59482 3. Elevated WBCs (D72.829: Elevated white blood cell count, unspecified) WBC's were elevated when in hospital for asthma exacerbation. WBC's were elevated Ordered: Automated Diff CBC w/ Auto Diff Comprehensive Metabolic Panel eGFR HgbA1c Lab Specimen Collect 76829 4. Elevated creatine kinase (R74.8: Abnormal levels of other serum enzymes) CMP drawn in office today. will follow up on labs Ordered: Automated Diff CBC w/ Auto Diff Comprehensive Metabolic Panel eGFR HgbA1c Lab Specimen Collect 14453 5. Weight gain (R63.5: Abnormal weight gain) pt is going to look into [facility] if she is eligible for $25 co pay. will call office if she is eligible Ordered: Lab Specimen Collect 26314 6. BMI 40.0-44.9, adult (Z68.41: Body mass [...] Recorded SARS-CoV-2 (COVID-19) mRNA BNT-162b2 vax 03/12/2020 RecordedNormSumma HealthComment on above:Result Comment: Electronically Signed By: Cleo Hassan\.br\Date and Time Signed: 01/25/23 14:49 ESTAmbulatory Visit Summary on 26-80-1856Cglhohmkkx Visit Summary CHIARAMORRO :1985 Visit Date:01/24/2023 Ambulatory [...] you for choosing us for your care. NormalGood Samaritan HospitalAuto Diffon 01-24-2023 Basophils/100 WBC (Bld)1.2 %Normal0.0-2.0[facility]itan HospitalComment on above:Order Comment: Order Added by Felicita Expert.Performed By: #### [id number], [id number], 6730855, [id number], 6990873 ####[facility] [address] [place], [place] [address]Vetbgazgh/Leukocytes Auto (Bld) [Pure # fraction]0.1 E9/LNormal0.0-0.2Fisher [facility] Medical CenterComment on above:Order Comment: Order Added by Felicita Expert.Performed By: #### [id number], 15767972, 1991314, 658118456, 8333980 ####[facility] [address] [place], [place] [address]Mbaykwpwdge/100 WBC (Bld)4.7 %Normal0.0-8.0[facility]itan HospitalComment on above:Order Comment: Order Added by Discern Expert.Performed By: #### 2867793, 06387056, 7015406, 054704894, 6512599 ####[address] [address] Eosinophils/Leukocytes Auto (Bld) [Pure # fraction]0.5 E9/LNormal0.0-0.5FSumma Health Akron CampusComment on above:Order Comment: Order Added by Discern Expert.Performed By: #### 3020219, 12185783, 1884873, [id number], 8138964 ####[address] [address] Lymphocytes/100 WBC (Bld)34.2 %Uiagid31.0-50.0[facility]itan HospitalComment on above:Order Comment: Order Added by Discern Expert.Performed By: #### 3051940, 66166456, 4384226, 850626132, 8925719 ####[address] [address]Mhbkpzpxbtd/Leukocytes Auto (Bld) [Pure # fraction]3.4 E9/LNormal1.0-4.0[facility]itan HospitalComment on above:Order Comment: Order Added by Discern Expert.Performed By: #### 1655390, 35850293, 8936498, 947805091, 2227196 ####[facility] [address] [place] [address]Ltmbiwldy/100 WBC (Bld)6.7 %Normal 4.0-14.0[facility]aritan HospitalComment on above:Order Comment: Order Added by Discern Expert.Performed By: #### 2473802, 08874565, 6347999, 226659863, 3218309 ####[address] [address]Hajjvctev/Leukocytes Auto (Bld) [Pure # fraction]0.7 E9/LNormal0.2-1.0 [facility] HospitalComment on above:Order Comment: Order Added by Discern Expert.Performed By: #### 5600934, 65296153, 9241479, 019255927, 3963733 ####[address] [place] [address] Neutrophils/100 WBC (Bld)53.2 %Gdooqa67.0-75.0[facility]itan HospitalComment on above:Order Comment: Order Added by Discern Expert.Performed By: #### 1327944, 28689022, 5660902, 154715048, 7254632 ####[address] [place], [place] [address]Gbyshnfhbkt/Leukocytes Auto (Bld) [Pure # fraction]5.4 E9/LNormal2.0-7.5FSumma Health Akron CampusComment on above:Order Comment: Order Added by Discern Expert.Performed By: #### 3535886, 80364526, 6198238, 493020733, 8423777 ####[address] [address]GMO w/ Auto Diffon 01-24-2023 Erythrocyte distribution width (RBC) [Ratio]16.7 %High10.9-14.2FSumma Health Akron CampusComment on above:Performed By: #### 4855749, 66065612, 9699605, 578982515, 0384294 ####[address] [place], [place] [address]Dmwbkuluyc (Bld) [Volume fraction]38.2 %Dbjrco61.0-46.0 [facility]itan HospitalComment on above:Performed By: #### 1172418, 19106102, 4329298, 670502042, 5050836 ####[facility] [address] [address]Htclnsqyvy (Bld) [Mass/Vol]12.3 g/dL Bgoylj47.0-16.0[facility]itan HospitalComment on above:Performed By: #### 6784707, 39922564, 2342176, 728229453, 3377030 ####[address] [address]RBH (RBC) [Entitic mass]26.4 pgLow 27.0-34.0[facility]aritan HospitalComment on above:Performed By: #### 1445458, 57652671, 3625866, 946463762, 5348726 ####[address] [address]TKQR (RBC) [Mass/Vol]32.3 g/dLNormal 31.4-36.0[facility]itan HospitalComment on above:Performed By: #### 0995496, 82080797, 8406981, 686321752, 8953569 ####[address] [address]WEN (RBC) [Entitic vol]81.8 fLNormal 80.0-100.0[facility] Samaritan HospitalComment on above:Performed By: #### 6313812, 19043078, 9822974, 583278226, 2418705 ####[address] [address]Yqonhuvl mean volume (Bld) [Entitic vol]8.1 fLNormal6.4-10.8[facility]aritan HospitalComment on above:Performed By: #### 4797326, 52545693, 4445341, 223210638, 8734699 ####[address] [address]Bqkgsrjer (Bld) [#/Vol]334.0 E9/SBikcgr470.0-500.0[facility]itan HospitalComment on above:Performed By: #### 3596750, 29016816, 2032246, 805406560, 9766223 ####[address] [address]JWN (Bld) [#/Vol]4.7 E12/L Normal4.3-5.9[facility]aritan HospitalComment on above:Performed By: #### 0541453, 46962985, 9076837, 988090254, 9512528 ####[address] [place], [place] [address]CWV corrected for nucl RBC Auto (Bld) [#/Vol]10.1 E9/LNormal4.0-11.0[facility] Sam[facility]itan HospitalComment on above: Performed By: #### 4083408, 73357752, 3947809, 186248672, 5658060 ####[address] [address]CXKiz 01-24-2023 Albumin [Mass/Vol]3.9 g/dLNormal3.3-5.0[facility]aritan HospitalComment on above:Performed By: #### 0773940, 37431993, 6285808, 577471882, 1201686 ####[address] [address] Albumin/Globulin (S) [Mass conc ratio]1.0Ffmyec9.1-2.2FSumma Health Akron CampusComment on above:Performed By: #### 3841579, 13692057, 7669135, 616032552, 7289198 ####[address] [address]YFJ [Catalytic activity/Vol]81 Int._Unit/EDglzkr21-72VverssGood Samaritan HospitalComment on above:Performed By: #### 8757207, 18635599, 6699835, 728642049, 5804672 ####[address] [address]OUD No additional P-5'-P [Catalytic activity/Vol]14 Int._Unit/LNormal6-46 [facility]itan HospitalComment on above:Performed By: #### 7819821, 94795112, 8155829, 151965771, 2536006 ####[facility] [address] [place], [place] [address]Rwmww gap [Moles/Vol]9 mmol/LNormal6-16 [facility] HospitalComment on above:Performed By: #### 9517338, 55577319, 3519893, 658808159, 5101265 ####[facility] [address] [place], [place] [address]UAY [Catalytic activity/Vol]18 Int._Unit/LNormal5-43[facility]itan HospitalComment on above:Performed By: #### 7129446, 56479348, 5678190, 264538457, 3613350 ####[facility] [address] [place], [place] [address]Togdnioaz [Mass/Vol]0.2 mg/dL Normal0.0-1.1FSumma Health Akron CampusComment on above:Performed By: #### 9040898, 43978970, 8625914, 858397811, 2146457 ####[facility] [address] [place], [place] [address]Fxakahn [Mass/Vol]8.9 mg/dLNormal 8.9-11.1FSumma Health Akron CampusComment on above:Performed By: #### 9451686, 83516097, 6659890, 196056721, 6737916 ####[facility] [address] AveNdanbury hospit[place], [place] [address]Itojawyg [Moles/Vol]104 mmol/LNormal 101-111Good Samaritan HospitalComment on above:Performed By: #### 4130587, 24707303, 9309181, 383018045, 3669607 ####[facility] [address]Ndanbury hospit[place], [place] [address]EO3 [Moles/Vol]25 mmol/EPfllsq14-38 [facility]aritan HospitalComment on above:Performed By: #### 3538888, 67869526, 0330427, 339439845, 5250396 ####[facility] [address]Noralbany memorial [place], [place] [address]Iklcbuldlk [Mass/Vol]1.1 mg/dLNormal 0.5-1.3FSumma Health Akron CampusComment on above:Performed By: #### 3172437, 19656797, 4647498, 173064454, 1478529 ####[facility] [address] [place], [place] [address]Wmfwnhey (S) [Mass/Vol]3.1 g/dLNormal 1.4-4.0[facility]itan HospitalComment on above:Performed By: #### 6424666, 40036611, 8736436, 015536414, 5042140 ####[facility] [address] [place], [place] [address]Tocwxjm [Mass/Vol]87 mg/xCYlonkm06-019 [facility]itan HospitalComment on above:Result Comment: If this glucose result represents a fasting glucose, interpretation should refer tothe following reference range: 55-99 mg/dLPerformed By: #### 4505169, 07483156, 4605807, 845647356, 5891217 ####[facility] [address] [place] [address]Keczxwroo [Moles/Vol]4.3 mmol/LNormal3.5-5.3FSumma Health Akron CampusComment on above:Performed By: #### 1630175, 74270912, 7494319, 164209888, 5888325 ####[facility] [address] [place], [place] [address]Ihelfbf [Mass/Vol]7.0 g/dLNormal6.0-7.8[facility]aritan HospitalComment on above:Performed By: #### 0400196, 83724477, 1586970, 626958259, 5708457 ####[facility] [address] [place], [place] [address]Aztmdx [Moles/Vol]134 mmol/PVug072-267OiuplqGood Samaritan HospitalComment on above:Performed By: #### 0763328, 42445686, 6935160, 252475569, 3092594 ####[facility] [address] [place], [place] [address]Vhpi nitrogen [Mass/Vol]13 mg/dLNormal5-21Good [facility]aritan HospitalComment on above:Performed By: #### 6437213, 76883751, 2174879, 944430774, 7152947 ####[facility] [address]hem[address] [place], [place] [address]Crxx nitrogen/Creatinine [Mass ratio]12 No HrcbiNwtwiw12-10EstdnzGood Samaritan HospitalComment on above:Performed By: #### 6894697, 72489219, 7097832, 273517306, 1581842 ####[facility] Xtvpeoij[address] [place], [place] [address]AseW8zpx 68-43-2131KkH2r (Bld) [Mass fraction]5.9 %Normal<=5.9[facility]aritan HospitalComment on above:Performed By: #### 3844633, 65619734, 6966920, 495090519, 1397548 ####[address] [place], [place] [address]zEUEri 93-22-0253EEN/1.73 sq M.predicted among non-blacks MDRD (S/P/Bld) [Vol rate/Area]66 mL/min/1.73 z5Krhoae>=59Good Samaritan HospitalComment on above:Order Comment: Order added by Discern Expert.Result Comment: Chronic kidney disease could be indicated at eGFR's of less than 60 mL/min/1.73m2. Kidney failure is indicated at less than 15 mL/min/1.73m2. Performed By: #### 9483508, 53385219, 0701284, 443220395, 7137327 ####[facility] [address] [place], [place] [address]Cnvwbviugpd 16-64-2301Wcnfksmjx From: Cleo Hassan To: [facility] - Clinical; [...] 37.3 % (14.0 - 50.0) 10/18/2022 14:25 Otoe Auto 4.6 % (4.0 - 14.0) 10/18/2022 14:25 Eos Auto 3.4 % (0.0 - 8.0) 10/18/2022 14:25 Basophil Auto 1.1 % (0.0 - 2.0) 10/18/2022 14:25 Neutro Absolute 4.3 E9/L (2.0 - 7.5) 10/18/2022 14:25 Lymph Absolute 3.0 E9/L (1.0 - 4.0) 10/18/2022 14:25 Otoe Absolute 0.4 E9/L (0.2 - 1.0) 10/18/2022 [...] unable to LVM. From: Carmel Ledbetter ([facility] - Clinical) To: Cleo Hassan; Sent: 10/21/2022 09:19:55 EDT Show up: 10/21/2022 09:19:00 EDT Subject: RE: Ambulatory Reminder notified patient of labs results. Pt states she is concerned about a growth on her thyroid she saidbefore her thyroid levels were normal and didn't show anything. She said she can feel something pushing against her esophagus. From: Cleo Hassan To: [facility] Clinical; Sent: 10/21/2022 09:24:10 EDT Show up: 10/21/2022 09:24:00 EDT Subject: RE: Ambulatory Reminder will send order to [facility]. pt notifiedNormalUnc Health Rockinghamer [facility] CenterT3 39-31-1948Tuvn T3 [Mass/Vol]2.8 pg/mLInvalid Interpretation Code2.0-4.4Fisher [facility] CenterComment on above:Result Comment: Performed at: [facility] [id number] PhD Susan CadetPerformed By: #### 0443468, 7759921, 9930246, 6922536, 8210828, 91668724, 5920763, 9780150 ####Greg [facility] [address] [place], [place] [address]Mastpdxjcp Consenton 10-19-2022 Medication [id number]#1.00CD:127Normal Greg [facility] CenterAmbulatory Visit Summaryon 50-77-3399Waifztzlye Visit Summary MORRO MALONEY :1985 Visit Date:10/18/2022 [...] as needed for for wheezing Pickup at [facility] 2294 Unchanged eszopiclone (eszopiclone 3 mg Tab) 1 Tablets By Mouth Once a day (at bedtime) as needed for for insomnia Unchanged fluticasone-salmeterol (Advair Diskus 500 mcg-50 mcg inhalation powder) See instructions 2 puffs at bedtime Unchanged lamotrigine (lamotrigine 150 mg Tab) Unchanged lurasidone (lurasidone 60 mg oral tablet) 1 Tablets By Mouth Every day Unchanged sertraline (sertraline 100 mg Tab) Pharmacy Information [facility] 1620: [address] [facility] [address] [place], [place] [id number] [phone] Allergies No Known Allergies Problems Ongoing - Any problem that you are currently receiving treatment for. Asthma Cyst of thyroid Weight gain [facility] Basophils/100 WBC (Bld)1.1 %Normal0.0-2.0[facility]itan HospitalComment on above:Order Comment: Order Added by Discern Expert.Performed By: #### 0299821, 3534614, 1858713, 0825038, 5497907, 62610995, 7854221, 4979437 ####[facility] [address] [place], [place] [address]Ixhbklxrm/Leukocytes Auto (Bld) [Pure # fraction]0.1 E9/LNormal0.0-0.2FSumma Health Akron Campus Comment on above:Order Comment: Order Added by Discern Expert.Performed By: #### 7620899, 3037175, 2787243, 8026922, 2845020, 06175804, 3661781, 2714088 ####[facility] [address] [place] [address] Eosinophils/100 WBC (Bld)3.4 %Normal0.0-8.0[facility]itan HospitalComment on above:Order Comment: Order Added by Discern Expert.Performed By: #### 9035400, 7691874, 7549374, 4851107, 1107367, 20143090, 1982307, 6588396 ####[facility] [address] [place], [place] [address]Cbnhedcluxr/Leukocytes Auto (Bld) [Pure # fraction]0.3 E9/LNormal0.0-0.5FSumma Health Akron Campus Comment on above:Order Comment: Order Added by Discern Expert.Performed By: #### 4092898, 6303921, 1942619, 1987923, 4916655, 66182981, 7129647, 5123979 ####[address] [place] [address] Lymphocytes/100 WBC (Bld)37.3 %Xsamaz58.0-50.0[facility] HospitalComment on above:Order Comment: Order Added by Discern Expert.Performed By: #### 3920713, 6007788, 7811715, 9117747, 3410416, 24030251, 3276161, 4718135 ####[address] [place] [address] Lymphocytes/Leukocytes Auto (Bld) [Pure # fraction]3.0 E9/LNormal1.0-4.0[facility] HospitalComment on above:Order Comment: Order Added by Felicita Expert.Performed By: #### 5961413, 8408158, 5116714, 0617465, 4530341, 53178218, 2064951, 2361148 ####[address] [address]Ijesssvnd/100 WBC (Bld)4.6 %Normal4.0-14.0[facility]itan HospitalComment on above:Order Comment: Order Added by Felicita Expert. Performed By: #### 0242451, 0648852, 6141036, 2274677, 6068699, 83608987, 7361153, 0121359 ####[address] [address]Xtgzraknm/Leukocytes Auto (Bld) [Pure # fraction]0.4 E9/L Normal0.2-1.0[facility]itan HospitalComment on above:Order Comment: Order Added by Felicita Expert.Performed By: #### 8240964, 9872470, 1593253, 3838885, 4939268, 14706467, 3126292, 9974502 ####[address] [address]Wlbqostlwcl/100 WBC (Bld)53.6 %Normal 36.0-75.0[facility] HospitalComment on above:Order Comment: Order Added by Discern Expert.Performed By: #### 9129887, 0103355, 8672820, 5211163, 0530182, 45892247, 4225935, 4914956 ####Garza [facility] [address] [place], [place] [address]Ndvehzsifdo/Leukocytes Auto (Bld) [Pure # fraction]4.3 E9/LNormal2.0-7.5FSumma Health Akron CampusComment on above:Order Comment: Order Added by Discern Expert.Performed By: #### 3019031, 6017184, 4811572, 4685425, 3450312, 19259723, 3101133, 0798749 ####[address] [place], [place] [address]UNH w/ Auto Diffon 16-60-3928Upooxmvrwpd distribution width (RBC) [Ratio]18.0 %High10.9-14.2FSumma Health Akron CampusComment on above:Performed By: #### 8845197, 4628577, 8713579, 9807943, 8980252, 21299522, 2486551, 8441316 ####[address] [place], [place] [address]Mmljrlgbsn (Bld) [Volume fraction]37.2 %Cfvkkw47.0-46.0[facility] HospitalComment on above: Performed By: #### 1421131, 8269435, 6356366, 1260767, 5027872, 43025226, 7515820, 8911552 ####[address] [place], [place] [address]Kmrcoircnf (Bld) [Mass/Vol]12.0 g/pGIfvkaa77.0-16.0[facility] HospitalComment on above:Performed By: #### 8003695, 3050819, 7539235, 8676899, 3040785, 44280987, 4188636, 7290883 ####Greg [address] [place], [place] [address]CLU (RBC) [Entitic mass]26.2 pgLow27.0-34.0[facility] HospitalComment on above:Performed By: #### 7843352, 3039361, 2107153, 1131427, 2604569, 13885829, 8638736, 6333170 ####[facility] [address] [place], [place] [address]ACEP (RBC) [Mass/Vol]32.3 g/xHHvertz37.4-36.0[facility] HospitalComment on above:Performed By: #### 5655190, 8598526, 6388737, 4280561, 1343314, 03613700, 8994061, 8743375 ####[address] [address]VNS (RBC) [Entitic vol]81.2 yZVoemos37.0-100.0[facility] HospitalComment on above:Performed By: #### 6590365, 4910618, 1647069, 5124375, 0141400, 08615497, 8409785, 9131241 ####[address] [address]Kwqirvhr mean volume (Bld) [Entitic vol]7.8 fLNormal6.4-10.8[facility] HospitalComment on above:Performed By: #### 9331200, 3635185, 0855951, 5726047, 5069315, 75082710, 0244306, 3182597 ####[address] [address] Platelets (Bld) [#/Vol]312.0 E9/KAnmdct215.0-500.0[facility] Comment on above:Performed By: #### 7284805, 3305680, 6803742, 7648992, 1374008, 88572757, 6057960, 7668116 ####[address] [address]JHJ (Bld) [#/Vol]4.6 E12/LNormal4.3-5.9[facility] HospitalComment on above:Performed By: #### 0990259, 6995062, 0735452, 5958193, 6931896, 65669234, 4210200, 4208585 ####Greg [facility] [address] [place], [place] [address]JNH corrected for nucl RBC Auto (Bld) [#/Vol]8.0 E9/LNormal4.0-11.0[facility] HospitalComment on above: Performed By: #### 6661263, 7428125, 8323567, 5398639, 8471178, 95806930, 4049959, 8156598 ####Garza [facility] [address] [place], [place] [address]XPKGPSVUESwyfryg By: SYSTEM SYSTEM on 31-11-0608Guejkhj [Mass/Vol]4.0 g/dLNormal3.3 - 5.0 gm/dLFTMC RemisolAlbumin/Globulin [Mass ratio] 1.3 {ratio}Normal1.1 - 2.2[facility] RemisolALP [Catalytic activity/Vol]85 [iU]/d Ilcjwk98 - 98 Int._Unit/LFTMC RemisolALT No additional P-5'-P [Catalytic activity/Vol]12 [iU]/dNormal6 - 46 Int._Unit/LFTMC RemisolAnion gap [Moles/Vol] 13 mmol/LNormal6 - 16 mEq/LFTMC RemisolAST [Catalytic activity/Vol]20 [iU]/d Normal5 - 43 Int._Unit/LFTMC RemisolBilirubin [Mass/Vol]0.2 mg/dLNormal0.0 - 1.1 mg/dLFTMC RemisolCalcium [Mass/Vol]9.1 mg/dLNormal8.9 - 11.1 mg/dLFTMC Remisol Chloride [Moles/Vol]106 mmol/AZsidfs942 - 111 mmol/LFTMC RemisolCholesterol [Mass/Vol]240 mg/cTOxqp963 - 200 mg/dLFTMC RemisolCholesterol in HDL [Mass/Vol] 44 mg/dLInvalid Interpretation CodeFT RemisolCholesterol in LDL [Mass/Vol]164 mg/dLHigh<=129mg/dLCURAHE[facility] [place] [facility] [place] RemisolCholesterol in VLDL [Mass/Vol]45 mg/dLHigh7 - 40 mg/dLCURAHE[facility] [place] [facility] [place] RemisolCO2 [Moles/Vol]22 mmol/LUofxlr30 - 31 mmol/LFTMC Remisol Creatinine [Mass/Vol]1.1 mg/dLNormal0.5 - 1.3 mg/dLCURAHE[facility] [place] [facility] [place] RemisolFree T4 [Mass/Vol]0.59 ng/dLNormal0.58 - 1.64 ng/dLCURAHEALTH [facility] [place] [facility] [place] RemisolGFR/1.73 sq M.predicted among non-blacks MDRD (S/P/Bld) [Vol rate/Area]66 mL/min/1.73 g8Tsffwh >=59mL/min/1.73 m2[facility] [place] Chem SGlobulin (S) [Mass/Vol]3.0 g/dLNormal1.4 - 4.0 gm/dLCURAHE[facility] [place] RemisolGlucose [Mass/Vol]130 mg/gZBbufnd95 - 199 mg/dLCURAHE[facility] [place] [facility] [place] Remisol Potassium [Moles/Vol]4.0 mmol/LNormal3.5 - 5.3 mmol/LFTMC RemisolProtein [Mass/Vol]7.0 g/dLNormal6.0 - 7.8 gm/dLCURA[facility] [place] RemisolSodium [Moles/Vol]137 mmol/L Nblndx893 - 145 mmol/LFTMC RemisolTriglyceride [Mass/Vol]227 mg/dLHigh<=149mg/dL [facility] [place] RemisolTSH Qn1.59 m[IU]/LNormal0.34 - 5.60 mcIU/mLCURA[facility] [place] RemisolUrea nitrogen [Mass/Vol]15 mg/dLNormal5 - 21 mg/dLCURA[facility] [place] RemisolUrea nitrogen/Creatinine [Mass ratio]14 mg/khNgeqrl04 - 20[facility] [place] RemisolCMPon 05-44-7624Dabngpu [Mass/Vol]4.0 g/dLNormal3.3-5.0[facility] HospitalComment on above:Performed By: #### 2585606, 7404348, 5958470, 2695396, 1042313, 68514866, 1259622, 2557835 ####[address] [place] [address] Albumin/Globulin (S) [Mass conc ratio]1.6Eegkya3.1-2.2Fisher [facility] CenterComment on above:Performed By: #### 2008002, 8166996, 7463968, 4206839, 8916715, 27273417, 5226629, 4910045 ####Garza [address] [address]CBK [Catalytic activity/Vol]85 Int._Unit/GGrjgbs85-94QmncniGood Samaritan HospitalComment on above:Performed By: #### 5474891, 3889528, 5646694, 2563053, 4558569, 11429182, 5837464, 7988906 ####Garza [address] [address]CIN No additional P-5'-P [Catalytic activity/Vol]12 Int._Unit/LNormal6-46[facility]itan HospitalComment on above:Performed By: #### 0378920, 8925251, 3553095, 8430187, 4300992, 91967607, 6729132, 4563023 ####[address] [address]Ukexc gap [Moles/Vol]13 mmol/L Normal6-16[facility]itan HospitalComment on above:Performed By: #### 0327140, 6113656, 8634131, 8203204, 9331076, 77213043, 8146045, 0566164 ####[address] [address]YXU [Catalytic activity/Vol]20 Int._Unit/LNormal5-43[facility] Comment on above:Performed By: #### 1714059, 0071743, 8220013, 4686723, 0446155, 41355154, 5511513, 0082588 ####[facility] [address] [place], [place] [address]Rdpnvazru [Mass/Vol]0.2 mg/dLNormal0.0-1.1FSumma Health Akron CampusComment on above:Performed By: #### 8135160, 4141149, 3465135, 6195941, 6940381, 63410859, 6330345, 8795155 ####[facility] [address] [place], [place] [address]Hpnqdft [Mass/Vol]9.1 mg/dL Normal8.9-11.1FSumma Health Akron CampusComment on above:Performed By: #### 7953513, 7026815, 9398001, 3206120, 6447225, 44220401, 9405164, 8727846 ####[facility] [address] [place] [address] Chloride [Moles/Vol]106 mmol/SNmmuhk759-656BgmmvbGood Samaritan HospitalComment on above:Performed By: #### 7005472, 6538262, 4253182, 8993412, 6455167, 07357578, 7985621, 6087086 ####[facility] [address] [place], [place] [address]XU7 [Moles/Vol]22 mmol/OQfbwko67-48MherouGood Samaritan HospitalComment on above:Performed By: #### 5595379, 0891173, 3083004, 6197167, 8717906, 39408462, 7045610, 1473791 ####[facility] [address] [place], [place] [address]Djaropaxwk [Mass/Vol]1.1 mg/dLNormal 0.5-1.3FSumma Health Akron CampusComment on above:Performed By: #### 6245805, 0187465, 8316828, 0103049, 3179101, 84574684, 6626252, 3768493 ####[facility] [address] [place], [place] [address]Aidtnboi (S) [Mass/Vol]3.0 g/dLNormal1.4-4.0[facility] HospitalComment on above: Performed By: #### 2806944, 0342133, 3216645, 0992222, 8981056, 51544565, 5226123, 4004598 ####[facility] [address] [place], [place] [address]Glsrpba [Mass/Vol]130 mg/jWPzjbgv20-959WqqycjGood Samaritan HospitalComment on above:Result Comment: If this glucose result represents a fasting glucose, interpretation should refer tothe following reference range: 55-99 mg/dLPerformed By: #### 1299712, 0809932, 7256785, 9757118, 6943355, 45146799, 9145122, 2274431 ####[facility] [address] [place], [place] [address]Zxvereusk [Moles/Vol]4.0 mmol/LNormal3.5-5.3FSumma Health Akron CampusComment on above:Performed By: #### 9493170, 7313436, 6673696, 2244331, 3792860, 25991659, 0436140, 9181734 ####[facility] [address] [place], [place] [address]Oaijpdz [Mass/Vol]7.0 g/dL Normal6.0-7.8[facility] HospitalComment on above:Performed By: #### 2956968, 7453866, 0444031, 5601726, 7003255, 08860252, 6528084, 5960783 ####[facility] [address] [place] [address] Sodium [Moles/Vol]137 mmol/SMtsxzy750-314EnmrhzGood Samaritan HospitalComment on above:Performed By: #### 4223307, 0958775, 9222829, 7787792, 9572143, 32410969, 7964864, 9929051 ####[facility] [address] [place], [place] [address]Tvay nitrogen [Mass/Vol]15 mg/dLNormal5-21[facility]itan HospitalComment on above:Performed By: #### 7597741, 1394971, 7978560, 4027974, 5673420, 13238732, 6728231, 7082287 ####[facility] [address] [place], [place] [address]Cieg nitrogen/Creatinine [Mass ratio] 14 No MeqpcLnapwu52-09TdverbGood Samaritan HospitalComment on above:Performed By: #### 2208842, 8398721, 0413381, 6855009, 9144126, 35818280, 5281475, 7875376 ####[facility] [address] [place] [address] Family Medicine Office/Clinic Noteon 56-16-2554Xuqjdp Medicine Office/Clinic NoteHPI Staff Morro is a 37 year old female establishing care Establish Care: History: Any previous diagnosis: Asthma, Bi Polar, spondlythisis L4, PCOS History of seeing any specialist: Rolly lamas When was your last doctors visit: Last provider: Dr eBkah Coronado Any recent labs: nothing within the [...] Daily, # 30 tab(s), Refills(s) 0, Pharmacy: [facility], 161, cm, 10/18/22 14:05:00 EDT, Height/Length Dosing, 105.6, kg, 10/18/22 13:58:00 EDT, Weight Dosing CBC w/ Auto Diff Comprehensive Metabolic Panel Free T4 Lab Specimen Collect 76518 Lipid Panel T3 Free Thyroid Stimulating Hormone 2. Weight gain (R63.5: Abnormal weight gain) pt would like to discuss weight loss. has done well on adipex in the past. medication agreement signed Ordered: phentermine, 37.5 mg = 1 tab(s), Oral, Daily, # 30 tab(s), Refills(s) 0, [facility]: [facility], 161, cm, 10/18/22 14:05:00 EDT, Height/Length Dosing, 105.6, kg, 10/18/22 13:58:00 EDT, Weight Dosing CBC w/ Auto Diff Comprehensive Metabolic Panel Free T4 Lab Specimen Collect 20780 Lipid Panel T3 Free Thyroid Stimulating Hormone [...] # 30 tab(s), Refills(s) 0, Pharmacy: [facility], 161, cm, 10/18/22 14:05:00 EDT, Height/Length Dosing, 105.6, kg, 10/18/22 13:58:00 EDT, Weight Dosing 4. Asthma (J45.909: Unspecified asthma, uncomplicated) albuterol refilled Ordered: phentermine, 37.5 mg = 1 tab(s), Oral, Daily, # 30 tab(s), Refills(s) 0, Pharmacy: [facility], 161, cm, 10/18/22 14:05:00 EDT, Height/Length Dosing, 105.6, kg, 10/18/22 13:58:00 EDT, Weight Dosing 5. BMI 40.0-44.9, adult (Z68.41: Body mass index [BMI] 40.0-44.9, adult) BMI education complete Ordered: phentermine, 37.5 mg = 1 tab(s), Oral, Daily, # 30 tab(s), Refills(s) 0, Pharmacy: [facility], 161, cm, 10/18/22 14:05:00 EDT, Height/Length Dosing, 105.6, kg, 10/18/22 13:58:00 EDT, Weight Dosing CBC w/ Auto Diff Comprehensive Metabolic Panel Free T4 Lab Specimen Collect 31859 Lipid Panel T3 Free Thyroid Stimulating Hormone 6. Non-smoker (Z78.9: Other specified health status) continue not smoking Ordered: phentermine, 37.5 mg = 1 tab(s), Oral, Daily, # 30 tab(s), Refills(s) 0, Pharmacy: [facility], 161, cm, 10/18/22 14:05:00 EDT, Height/Length Dosing, 105.6, kg, 10/18/22 13:58:00 EDT, Weight Dosing CBC w/ Auto Diff Comprehensive Metabolic Panel Free T4 Lab Specimen Collect 24644 Lipid Panel T3 Free Thyroid Stimulating Hormone Orders: albuterol, 2 puff(s), Inhalation, q4hr for wheezing, 18 gram, Refill(s) 0, [facility], 161, cm, 10/18/22 14:05:00 EDT, Height/Length Dosing, 105.6, kg, 10/18/22 13:58:00 EDT, Weight Dosing Follow-up No qualifying data available Problem List/Past Medical History Ongoing Asthma Cyst of thyroid Weight gai (more content not included)...NormalGood Samaritan Hospital Comment on above:Result Comment: Electronically Signed By: Cleo Hassan.ariel\Date and Time Signed: 10/18/22 14:32 EDTFree T4on 90-93-1954Wrna T4 [Mass/Vol]0.59 ng/dLNormal0.58-1.64Good Samaritan HospitalComment on above: Performed By: #### 1608886, 7097553, 1048426, 6614303, 1415896, 84949197, 5094301, 3384725 ####Garza [facility] [address] [place], [place] [address]LGUUXEBESYIvdubsw By: SYSTEM SYSTEM on 10-18-2022 Basophils/100 WBC (Bld)1.1 %Normal0.0 - 2.0 %[facility] HemeAutoSSBasophils/Leukocytes Auto (Bld) [Pure # fraction]0.1 E9/LNormal0.0 - 0.2 E9/LFTMC HemeAutoSS Eosinophils/100 WBC (Bld)3.4 %Normal0.0 - 8.0 %[facility] HemeAutoSS Eosinophils/Leukocytes Auto (Bld) [Pure # fraction]0.3 E9/LNormal0.0 - 0.5 E9/L [facility] HemeAutoSSLymphocytes/100 WBC (Bld)37.3 %Ptkxsj14.0 - 50.0 %[facility] HemeAutoSS Lymphocytes/Leukocytes Auto (Bld) [Pure # fraction]3.0 E9/LNormal1.0 - 4.0 E9/L [facility] HemeAutoSSMonocytes/100 WBC (Bld)4.6 %Normal4.0 - 14.0 %[facility] HemeAutoSS Monocytes/Leukocytes Auto (Bld) [Pure # fraction]0.4 E9/LNormal0.2 - 1.0 E9/L [facility] HemeAutoSSNeutrophils/100 WBC (Bld)53.6 %Ojqqje15.0 - 75.0 %[facility] HemeAutoSS Neutrophils/Leukocytes Auto (Bld) [Pure # fraction]4.3 E9/LNormal2.0 - 7.5 E9/L [facility] [place] HemeAutoSSHEMATOLOGYOrdered By: Fannie Dong on 73-57-2032Fiyzlhyaxrx distribution width (RBC) [Ratio]18.0 %High10.9 - 14.2 %FT HemeAutoSSHematocrit (Bld) [Volume fraction]37.2 %Iyoyjl43.0 - 46.0 %FT HemeAutoSSHemoglobin (Bld) [Mass/Vol]12.0 g/eTEffcji60.0 - 16.0 gm/dLFT HemeAutoSSMCH (RBC) [Entitic mass]26.2 pgLow27.0 - 34.0 pgFTM HemeAutoSSMCHC (RBC) [Mass/Vol]32.3 g/dLNormal 31.4 - 36.0 gm/dLFT HemeAutoSSMCV (RBC) [Entitic vol]81.2 jLBoyhnf14.0 - 100.0 fLCURAHE[facility] [place] [facility] [place] HemeAutoSSPlatelet mean volume (Bld) [Entitic vol]7.8 fLNormal6.4 - 10.8 fLFT HemeAutoSSPlatelets (Bld) [#/Vol]312.0 E9/MPerbaj650.0 - 500.0 E9/LFTMC HemeAutoSSRBC (Bld) [#/Vol]4.6 E12/LNormal4.3 - 5.9 E12/LFC HemeAutoSSWBC corrected for nucl RBC Auto (Bld) [#/Vol]8.0 E9/LNormal4.0 - 11.0 E9/LFC HemeAutoSSLipid Panelon 28-04-2120Xxvyjckatke [Mass/Vol]240 mg/kNNkcg391-853 [facility] HospitalComment on above:Performed By: #### [id number], [id number], 7053735, 0385917, 4675852, 14269486, 9703707, 1853425 ####[facility] [address] [place], [place] [address]Rkslnwzomci in HDL [Mass/Vol] 44 mg/dLInvalid Interpretation CodeFishThomas B. Finan CenterComment on above: Result Comment: HDL > or equal to 60 mg/dL: Low cardiovascular risk HDL < 40 mg/dL : High cardiovascular riskPerformed By: #### [id number], [id number], 5263450, 5110664, 9943430, 68087113, 4276927, 3982516 ####[facility] [address] [place], [place] [address]Avmuppqaanb in LDL [Mass/Vol] 164 mg/dLHigh<=129[facility] HospitalComment on above:Performed By: #### [id number], 8325556, 7130097, 7015500, 4423721, 51430211, 2541623, 2911236 ####[facility] [address] [place] [address] Cholesterol in VLDL [Mass/Vol]45 mg/dLHigh7-40[facility] HospitalComment on above:Performed By: #### 6602343, 4911375, 7721437, 1654754, 6533090, 29475037, 4666657, 3120420 ####[facility] [address] [place], [place] [address]Jageaqrojtny [Mass/Vol]227 mg/dLHigh<=149[facility] HospitalComment on above:Performed By: #### 0481265, 0535244, 5244679, 6505301, 8604542, 49047488, 3327885, 5940392 ####[address] [place], [place] [address]GERqa 34-05-4753GIJ Qn1.59 m[IU]/LNormal0.34-5.60[facility] HospitalComment on above:Performed By: #### 9741895, 7067300, 3443139, 7201234, 8341851, 76019033, 7062244, 2001304 ####[facility] [address] [place], [place] [address]dMCL on 71-89-8644TGK/1.73 sq M.predicted among non-blacks MDRD (S/P/Bld) [Vol rate/Area]66 mL/min/1.73 r6Vbeyvx>=59Fisher [facility] CenterComment on above:Order Comment: Order added by Discern Expert.Result Comment: Chronic kidney disease could be indicated at eGFR's of less than 60 mL/min/1.73m2. K idney failure is indicated at less than 15 mL/min/1.73m2.Performed By: #### [id number], 0812115, 8130941, 6436898, 2565666, 20157560, 4214369, 8068911 ####[facility] [address] [place], [place] [address]ID KNEE RT 4V or >on 58-64-5487EQ KNEE RT 4V or >EXAM: XR KNEE [...] by: WENDY ROMAN Date: 2022-06-28 05:24Normal [facility] CepheidOrdered By: ETHAN MILAN on 02-08-2022 SARS-CoV-2 (COVID-19) Ab IA QlNegativeNegativeTrinity Health [facility] Campus Comment on above:This is a duplicate Cepheid Xpert Xpress CoV-2/Flu/RSV Plus RNA by RT-PCR result to be used for statistical tracking purpose only.COVID Cepheid Ordered By: Jennifer Terry on 18-81-4486IKXP-CoV-2 (COVID-19) RNA GERALD+probe Ql (Unsp spec)[facility] CampusBasophils Auto (Bld) [#/Vol]Ordered By: Nan Brand on 91-05-6634Npmckiwqa (Bld) [#/Vol]0.0 10*3/uL0.0-0.2 [facility] CampusBasophils/100 WBC Auto (Bld)Ordered By: Nan Brand on 37-66-6996Yjvrjbsph/100 WBC (Bld)0.4 %.[facility] CampusCreatinine and Glomerular filtration rate.predicted panel (S/P/Bld)Ordered By: Nan Brand on 23-53-1185Gnmcshnqzp [Mass/Vol]0.94 mg/dL0.44-1.03 [facility] CampusEosinophils Auto (Bld) [#/Vol]Ordered By: Nan Brand on 10-23-8513Aytlvqxbmqp (Bld) [#/Vol]0.0 10*3/uL0.0-0.45[facility] CampusEosinophils/100 WBC Auto (Bld)Ordered By: Nan Brand on 01-87-6018Uslfxzgmnhe/100 WBC (Bld)0.0 %.[facility] Erythrocyte distribution width Auto (RBC) [Ratio]Ordered By: Nan Brand on 60-64-4152Pousxgnhpeb distribution width (RBC) [Ratio]17.6 %11.9-15.3FCity HospitalEstimated glomerular filtration rate (GFR) non- AmericanOrdered By: Nan Brand on 52-53-4935DDR/1.73 sq M.predicted among non-blacks MDRD (S/P/Bld) [Vol rate/Area]> 60 mL/MinTrinity Health System West CampusHematocrit Auto (Bld) [Volume fraction]Ordered By: Nan Brand on 86-69-5920Spyzedqudu (Bld) [Volume fraction]39.3 %34.0-46.4FCity HospitalHemoglobin [Mass/volume] in BloodOrdered By: Nan Brand on 42-12-4992Vnvwldesjt (Bld) [Mass/Vol]12.6 g/dL11.8-15.4FCity HospitalLaboratory - Hematology and Cell countsOrdered By: Nan Brand on 14-00-5599Kqcvnvmfn RBC/100 WBC (Bld) [Ratio]0.0 %0-0.5FCity HospitalLeukocytes [#/volume] in Blood by Automated countOrdered By: Nan Brand on 60-60-2632IFC (Bld) [#/Vol]11.2 10*3/uL4.5-11.0[facility] CampusLymphocytes Auto (Bld) [#/Vol]Ordered By: Nan Brand on 18-53-7513Bzhaomgtsjr (Bld) [#/Vol]1.0 10*3/uL1.00-4.8[facility] CampusLymphocytes/100 WBC Auto (Bld)Ordered By: Nan Brand on 12-28-2021 Lymphocytes/100 WBC (Bld)8.7 %.[facility]H [facility] (RBC) [Entitic mass]Ordered By: Nan Brand on 55-75-1873LSI (RBC) [Entitic mass] 26.5 pg24.7-34.3FCity HospitalMCHC Auto (RBC) [Mass/Vol] Ordered By: Nan Brand on 23-86-5885USWP (RBC) [Mass/Vol]32.1 g/dL32.0-35.0 [facility] CampusMCV Auto (RBC) [Entitic vol]Ordered By: Nan Brand on 80-89-8479GXM (RBC) [Entitic vol]82.6 kK54-640JbikqstbmTrinity Health System West CampusMonocytes Auto (Bld) [#/Vol]Ordered By: Nan Brand on 78-81-2970Ivcksjwqn (Bld) [#/Vol]0.1 10*3/uL0.0-0.8[facility] CampusMonocytes/100 WBC Auto (Bld)Ordered By: Nan Brand on 12-28-2021 Monocytes/100 WBC (Bld)1.3 %.[facility] CampusNeutrophils Auto (Bld) [#/Vol]Ordered By: Nan Brand on 01-43-2149Pcmlciuhvqu (Bld) [#/Vol] 10.0 10*3/uL1.8-7.7FCity HospitalNeutrophils/100 WBC Auto (Bld)Ordered By: Nan Brand on 16-50-1659Tjpaipzgzyy/100 WBC (Bld)89.6 %. [facility] CampusNo Panel InformationOrdered By: Nan Brand on 90-95-3940Pgloivqoy GFR ()> 60 mL/MinTrinity Health System West CampusComment on above:GFR estimated reference range: According to KDOQI guidelines, <60 ml/min/1.73m2 is sufficient todiagnose a patient with chronic kidney disease.Pharmacy Creatinine Clearance (Chem96.17[facility] CampusPlatelet mean volume Auto (Bld) [Entitic vol]Ordered By: Nan Brand on 37-41-6112Hfdcryor mean volume (Bld) [Entitic vol]7.8 fL6.3-10.7 [facility] CampusPlatelets Auto (Bld) [#/Vol]Ordered By: Nan Brand on 54-58-6354Wrhwppwtp (Bld) [#/Vol]315 10*3/uM075-838UrkqbskcpTrinity Health System West CampusRBC Auto (Bld) [#/Vol]Ordered By: Nan Brand on 27-79-6832DMA (Bld) [#/Vol]4.76 10*6/uL3.60-5.00[facility] Hospitalerum or plasma anion gap determinationOrdered By: Nan Brand on 55-19-6341Bbpai gap [Moles/Vol]13.8 mmol/L6.0-15.0[facility] Hospitalerum or plasma calcium measurement (mass/volume)Ordered By: Nan Brand on 17-21-9822Ldvqwzy [Mass/Vol]9.4 mg/dL8.2-10.2FWright-Patterson Medical Centererum or plasma chloride measurement (moles/volume)Ordered By: Nan Brand on 60-28-5217Vsfhsxid [Moles/Vol]106 mmol/Y59-019MynkglgwtAvita Health System Bucyrus Hospitalerum or plasma glucose measurement (mass/volume)Ordered By: Nan Brand on 08-05-1191Jatdekc [Mass/Vol]162 mg/pH44-206CieywmaueTrinity Health System West CampusComment on above:ADA recommended reference rangeRandom Glucose Reference Range is dependent on time and content of last meal. Glucose of more than 200 mg/dL in a nonstressed, ambulatory subject supports the diagnosisof Diabetes Mellitus.Serum or plasma potassium measurement (moles/volume)Ordered By: Nan Brand on 64-79-7411Jnaelfdyr [Moles/Vol]4.3 mmol/L3.5-5.1FWright-Patterson Medical Centererum or plasma sodium measurement (moles/volume)Ordered By: Nan Brand on 44-66-9452Rjhgts [Moles/Vol]137 mmol/I605-234XhteuungmAvita Health System Bucyrus Hospitalerum or plasma total carbon dioxide measurement (moles/volume)Ordered By: Nan Brand on 51-33-2294SR3 [Moles/Vol]21.5 mmol/L22.0-30.0[facility] Hospitalerum or plasma urea nitrogen measurement (mass/volume)Ordered By: Nan Brand on 12-28-2021 Urea nitrogen [Mass/Vol]9 mg/dL9-23[facility] CampusAlbumin [Mass/volume] in Serum or PlasmaOrdered By: Mark Britt on 38-83-8502Rxultnx [Mass/Vol]3.9 g/dL3.2-5.5FCity HospitalBasophils Auto (Bld) [#/Vol]Ordered By: Mark Britt on 12-95-3044Poimyhvgq (Bld) [#/Vol]0.1 10*3/uL 0.0-0.2FCity HospitalBasophils/100 WBC Auto (Bld)Ordered By: Mark Britt on 24-56-7066Hbovjgzal/100 WBC (Bld)0.8 %.[facility] CampusCOVID CepheidOrdered By: Mark Britt on 20-27-5995DEBK-CoV-2 (COVID-19) Ab IA QlNegativeNegativeTrinity Health System West CampusComment on above:This is a duplicate Cepheid Xpert Xpress CoV-2/Flu/RSV Plus RNA by RT-PCR result to be used for statistical tracking purpose only.SARS-CoV-2 (COVID-19) RNA GERALD+probe Ql (Unsp spec)[facility] CampusCreatinine and Glomerular filtration rate.predicted panel (S/P/Bld)Ordered By: Mark Britt on 96-03-0854Komgoaqomy [Mass/Vol]1.03 mg/dL0.44-1.03[facility] CampusDirect bilirubin measurementOrdered By: Mark Britt on 12-27-2021 Bilirubin.direct [Mass/Vol]mg/dL0.0-0.4FCity Hospital Eosinophils Auto (Bld) [#/Vol]Ordered By: Mark Britt on 81-93-4949Okkdvbiucjb (Bld) [#/Vol]0.2 10*3/uL0.0-0.45[facility] CampusEosinophils/100 WBC Auto (Bld)Ordered By: Mark Britt on 61-00-2206Ugmdlsybsxv/100 WBC (Bld) 1.9 %.[facility] CampusErythrocyte distribution width Auto (RBC) [Ratio]Ordered By: Mark Britt on 06-69-8489Gqoijhajdor distribution width (RBC) [Ratio]17.5 %11.9-15.3FCity HospitalEstimated glomerular filtration rate (GFR) non- AmericanOrdered By: Mark Britt on 98-45-4914VEN/1.73 sq M.predicted among non-blacks MDRD (S/P/Bld) [Vol rate/Area]60 mL/MinTrinity Health System West CampusGlobulin Calc (S) [Mass/Vol] Ordered By: Mark Britt on 56-36-6399Hjyecisp (S) [Mass/Vol]2.9 g/dLTrinity Health System West CampusHematocrit Auto (Bld) [Volume fraction]Ordered By: Mark Britt on 35-84-7775Mzbkzaohlb (Bld) [Volume fraction]43.3 %34.0-46.4FCity HospitalHemoglobin [Mass/volume] in BloodOrdered By: Mark Britt on 39-84-1091Gtmqdljqll (Bld) [Mass/Vol]13.7 g/dL11.8-15.4FCity HospitalLaboratory - Chemistry and Chemistry - challengeOrdered By: Mark Britt on 99-93-8490NRG [Catalytic activity/Vol]20 U/A25-00AxnigbfdlTrinity Health System West CampusLaboratory - Hematology and Cell countsOrdered By: Mark Britt on 67-55-9571Thrdaoyya RBC/100 WBC (Bld) [Ratio]0.1 %0-0.5FCity HospitalLeukocytes [#/volume] in Blood by Automated countOrdered By: Mark Britt on 53-66-4227LGD (Bld) [#/Vol]12.6 10*3/uL4.5-11.0[facility] CampusLymphocytes Auto (Bld) [#/Vol]Ordered By: Mark Britt on 31-90-2701Lbvwqdytiuq (Bld) [#/Vol]3.0 10*3/uL1.00-4.8[facility] CampusLymphocytes/100 WBC Auto (Bld)Ordered By: Mark Britt on 40-20-9197Wgiacddpffh/100 WBC (Bld)23.6 %.[facility] Auto (RBC) [Entitic mass]Ordered By: Mark Britt on 82-78-4815JJH (RBC) [Entitic mass]26.5 pg24.7-34.3FCity HospitalMCHC Auto (RBC) [Mass/Vol]Ordered By: Mark Britt on 83-47-3498ZNNC (RBC) [Mass/Vol]31.7 g/dL 32.0-35.0[facility] CampusMCV Auto (RBC) [Entitic vol]Ordered By: Mark Britt on 95-41-0334WPT (RBC) [Entitic vol]83.7 xY84-517CbeyssusnTrinity Health System West CampusMonocytes Auto (Bld) [#/Vol]Ordered By: Mark Britt on 46-22-6413Xgpxjkgvu (Bld) [#/Vol]0.7 10*3/uL0.0-0.8[facility] CampusMonocytes/100 WBC Auto (Bld)Ordered By: Mark Britt on 12-27-2021 Monocytes/100 WBC (Bld)5.7 %.[facility] CampusNeutrophils Auto (Bld) [#/Vol]Ordered By: Mark Britt on 80-40-3531Boyjiwywwyw (Bld) [#/Vol]8.6 10*3/uL1.8-7.7FCity HospitalNeutrophils/100 WBC Auto (Bld) Ordered By: Mark Britt on 87-76-0131Ytbotwcreqo/100 WBC (Bld)68.0 %.[facility] CampusNo Panel InformationOrdered By: Mark Britt on 67-07-4973Mupvjcyyr GFR ()> 60 mL/MinTrinity Health System West CampusComment on above:GFR estimated reference range: According to KDOQI guidelines, <60 ml/min/1.73m2 is sufficient todiagnose a patient with chronic kidney disease.Pharmacy Creatinine Clearance (Chem88.19[facility] CampusPlatelet mean volume Auto (Bld) [Entitic vol]Ordered By: Mark Britt on 26-85-2369Ikpculji mean volume (Bld) [Entitic vol]7.7 fL6.3-10.7 [facility] CampusPlatelets Auto (Bld) [#/Vol]Ordered By: Mark Britt on 23-98-6311Htjhjnjay (Bld) [#/Vol]324 10*3/kU314-810ZauunuhxvTrinity Health System West CampusProtein [Mass/volume] in Serum or PlasmaOrdered By: Mark Britt on 86-57-8778Wthwzwj [Mass/Vol]6.8 g/dL6.1-7.9[facility] RBC Auto (Bld) [#/Vol]Ordered By: Mark Britt on 09-92-6200YVI (Bld) [#/Vol] 5.18 10*6/uL3.60-5.00[facility] Hospitalerum or plasma alanine aminotransferase measurement without P-5'-P (enzymatic activiOrdered By: Mark Britt on 69-36-4344BJI No additional P-5'-P [Catalytic activity/Vol]16 U/L10-60 [facility] Hospitalerum or plasma albumin/globulin mass ratio Ordered By: Mark Britt on 07-72-2237Brffctx/Globulin [Mass ratio]1.3 {ratio} [facility] Hospitalerum or plasma alkaline phosphatase measurement (enzymatic activity/volume)Ordered By: Mark Britt on 61-33-6244FZE [Catalytic activity/Vol]109 U/O98-14NfjyzyctdAvita Health System Bucyrus Hospitalerum or plasma anion gap determinationOrdered By: Mark Britt on 41-95-2283Esbgu gap [Moles/Vol]See comment6.0-15.0[facility] CampusComment on above: Specimen hemolyzed, redraw requestedPLEASE CALCULATE WITH REDRAW POTASSIUM IF NEEDEDSerum or plasma calcium measurement (mass/volume)Ordered By: Mark Britt on 63-77-5203Grbtxyl [Mass/Vol]9.0 mg/dL8.2-10.2FWright-Patterson Medical Centererum or plasma chloride measurement (moles/volume)Ordered By: Mark Britt on 78-71-9350Mmhdoced [Moles/Vol]103 mmol/P99-533WvetdqgxsAvita Health System Bucyrus Hospitalerum or plasma glucose measurement (mass/volume)Ordered By: Mark Britt on 72-89-0649Rsxawaz [Mass/Vol]104 mg/pY21-478TqfhwhlbsTrinity Health System West CampusComment on above:ADA recommended reference rangeRandom Glucose Reference Range is dependent on time and content of last meal. Glucose of more than 200 mg/dL in a nonstressed, ambulatory subject supports the diagnosisof Diabetes Mellitus.Serum or plasma non-glucuronidated bilirubin measurement (mass/volume)Ordered By: Mark Britt on 79-68-4920Rpkyubycc.indirect [Mass/Vol] TNPTrinity Health System West CampusComment on above:Test not performedSerum or plasma potassium measurement (moles/volume)Ordered By: Mark Britt on 55-48-8181Cixcwrbyh [Moles/Vol]3.7 mmol/L3.5-5.1FWright-Patterson Medical Centererum or plasma sodium measurement (moles/volume)Ordered By: Mark Britt on 35-58-4044Sydtwl [Moles/Vol]136 mmol/I623-675KjqztdvfcAvita Health System Bucyrus Hospitalerum or plasma total bilirubin measurement (mass/volume)Ordered By: Mark Britt on 55-60-0699Krqdnhexu [Mass/Vol]0.6 mg/dL0.3-1.2FWright-Patterson Medical Centererum or plasma total carbon dioxide measurement (moles/volume) Ordered By: Mark Britt on 89-55-0584SI8 [Moles/Vol]18.8 mmol/L22.0-30.0 [facility] Hospitalerum or plasma urea nitrogen measurement (mass/volume)Ordered By: Mark Britt on 51-94-8824Mlur nitrogen [Mass/Vol]8 mg/dL9-23[facility] CampusTroponin I.cardiac [Mass/volume] in Serum or Plasma by High sensitivity methodOrdered By: Mark Britt on 12-27-2021 Troponin I.cardiac High sensitivity method [Mass/Vol]3 pg/mL0-15[facility] CampusBlood hemoglobin measurement (mass/volume)Ordered By: Jp Barba on 71-25-5913Ahhqirakqs (Bld) [Mass/Vol]12.7 g/dL11.8-15.4FCity HospitalCreatinine and Glomerular filtration rate.predicted panel (S/P/Bld)Ordered By: Jp Barba on 38-05-4516Yndebszedr [Mass/Vol]0.98 mg/dL0.44-1.03[facility] CampusErythrocyte distribution width Auto (RBC) [Ratio]Ordered By: Jp Barba on 08-45-3888Wvmqplcnjmv distribution width (RBC) [Ratio]18.0 %11.9-15.3FCity HospitalEstimated glomerular filtration rate (GFR) non- AmericanOrdered By: Jp Barba on 25-87-7271DLN/1.73 sq M.predicted among non-blacks MDRD (S/P/Bld) [Vol rate/Area]> 60 mL/MinTrinity Health System West CampusHematocrit Auto (Bld) [Volume fraction]Ordered By: Jp Barba on 84-26-1162Qhvjavgoen (Bld) [Volume fraction]39.9 %34.0-46.4FCity HospitalLaboratory - Chemistry and Chemistry - challengeOrdered By: pJ Barba on 95-42-4639Ryaahblny [Mass/Vol]1.8 mg/dL1.6-2.6FSt. Anthony's Hospital Auto (RBC) [Entitic mass]Ordered By: Jp Barba on 79-85-9417VZY (RBC) [Entitic mass]26.1 pg24.7-34.3[facility] CenterMCHC Auto (RBC) [Mass/Vol]Ordered By: Jp Barba on 01-93-5537NRBF (RBC) [Mass/Vol]31.8 g/dL32.0-35.0[facility] CampusMCV Auto (RBC) [Entitic vol]Ordered By: Jp Barba on 40-08-4926TUO (RBC) [Entitic vol]82.2 rZ17-006IrlztyykaTrinity Health System West Campus No Panel InformationOrdered By: Jp Barab on 58-03-3434Tzbxzwhro GFR ()> 60 mL/MinTrinity Health System West CampusComment on above:GFR estimated reference range: According to KDOQI guidelines, <60 ml/min/1.73m2 is sufficient todiagnose a patient with chronic kidney disease.Pharmacy Creatinine Clearance (Chem93.33[facility] CampusPlatelet mean volume Auto (Bld) [Entitic vol]Ordered By: Jp Barba on 57-55-9168Tlgipcmq mean volume (Bld) [Entitic vol]8.1 fL6.3-10.7FCity HospitalPlatelets Auto (Bld) [#/Vol]Ordered By: Jp Barba on 60-87-7693Xiharslby (Bld) [#/Vol]334 10*3/xQ463-521QprivzeoyTrinity Health System West CampusRBC Auto (Bld) [#/Vol]Ordered By: Jp Barba on 24-75-5720MIT (Bld) [#/Vol]4.86 10*6/uL3.60-5.00[facility] Hospitalerum or plasma anion gap determinationOrdered By: Jp Barba on 73-91-5672Osqfe gap [Moles/Vol]15.5 mmol/L6.0-15.0[facility] Hospitalerum or plasma calcium measurement (mass/volume)Ordered By: Jp Barba on 59-20-4129Tvllkdf [Mass/Vol]9.5 mg/dL8.2-10.2FWright-Patterson Medical Centererum or plasma chloride measurement (moles/volume)Ordered By: Jp Barba on 97-80-4555Encissmf [Moles/Vol]103 mmol/I44-612AmuyjlaybAvita Health System Bucyrus Hospitalerum or plasma glucose measurement (mass/volume)Ordered By: Jp Barba on 27-97-7524Fgpsgso [Mass/Vol]149 mg/dA54-671LyxmadbzuTrinity Health System West CampusComment on above:ADA recommended reference rangeRandom Glucose Reference Range is dependent on time and content of last meal. Glucose of more than 200 mg/dL in a nonstressed, ambulatory subject supports the diagnosisof Diabetes Mellitus.Serum or plasma potassium measurement (moles/volume)Ordered By: Jp Barba on 77-68-2248Whzzonftq [Moles/Vol]4.5 mmol/L3.5-5.1FWright-Patterson Medical Centererum or plasma sodium measurement (moles/volume)Ordered By: Jp Barba on 70-43-2114Mhiskp [Moles/Vol]136 mmol/W007-170BtflgwnmdAvita Health System Bucyrus Hospitalerum or plasma total carbon dioxide measurement (moles/volume)Ordered By: Jp Barba on 96-97-6802YN8 [Moles/Vol]22.0 mmol/L 22.0-30.0[facility] Hospitalerum or plasma urea nitrogen measurement (mass/volume)Ordered By: Jp Barba on 90-01-0174Ckma nitrogen [Mass/Vol]13 mg/dL9-23[facility] CampusWBC Auto (Bld) [#/Vol] Ordered By: Jp Barba on 13-60-0670BNR (Bld) [#/Vol]17.0 10*3/uL3.8-11.6 [facility] CampusBasophils Auto (Bld) [#/Vol]Ordered By: Jason Milton on 14-72-2731Ofuzhobek (Bld) [#/Vol]0.1 10*3/uL0.0-0.2FCity HospitalBasophils/100 WBC Auto (Bld)Ordered By: Jason Milton on 03-40-5769Weyhiicxz/100 WBC (Bld)0.8 %.[facility] CampusBlood hemoglobin measurement (mass/volume)Ordered By: Jason Milton on 11-18-2021 Hemoglobin (Bld) [Mass/Vol]11.8 g/dL11.8-15.4FC[facility] Blood leukocytes automated count (number/volume)Ordered By: Jason Milton on 55-85-3285HPB (Bld) [#/Vol]12.0 10*3/uL4.5-11.0[facility] Body fluid albumin measurement (mass/volume)Ordered By: Jason Milton on 99-89-3028Reycyhq (Body fld) [Mass/Vol]3.8 g/dL3.2-5.5FCity HospitalCOVID CepheidOrdered By: Jason Milton on 01-73-1321LLPH-CoV-2 (COVID-19) Ab [place] QlNegativeNegativeTrinity Health System West CampusComment on above:This is a duplicate CepWordRake Xpert Xpress CoV-2/Flu/RSV Plus RNA by RT-PCR result to be used for statistical tracking purpose only.SARS-CoV-2 (COVID-19) RNA GERALD+probe Ql (Unsp spec)[facility] CampusCreatine kinase [Enzymatic activity/volume] in Serum or PlasmaOrdered By: Jason Milton on 27-44-0840QZ [Catalytic activity/Vol]78 U/H55-464LsnjbdbwzTrinity Health System West CampusCreatinine and Glomerular filtration rate.predicted panel (S/P/Bld)Ordered By: Jason Milton on 18-83-3220Ybchnrwqzh [Mass/Vol]0.98 mg/dL0.44-1.03[facility] CampusEosinophils Auto (Bld) [#/Vol]Ordered By: Jason Milton on 38-23-1256Kwsngyqmwos (Bld) [#/Vol]0.4 10*3/uL0.0-0.45[facility] CampusEosinophils/100 WBC Auto (Bld)Ordered By: Jason Milton on 95-07-7416Fjpycamtsmz/100 WBC (Bld)3.1 %.[facility] Erythrocyte distribution width Auto (RBC) [Ratio]Ordered By: Jason Milton on 09-37-6834Cdyztlvaofu distribution width (RBC) [Ratio]17.5 %11.9-15.3FCity HospitalEstimated glomerular filtration rate (GFR) non- AmericanOrdered By: Jason Milton on 05-42-3072UTK/1.73 sq M.predicted among non-blacks MDRD (S/P/Bld) [Vol rate/Area]> 60 mL/MinTrinity Health System West CampusGlobulin Calc (S) [Mass/Vol]Ordered By: Jason Milton on 11-18-2021 Globulin (S) [Mass/Vol]2.9 g/dLTrinity Health System West CampusHematocrit Auto (Bld) [Volume fraction]Ordered By: Jason Milton on 82-17-3496Mhsekuwdvk (Bld) [Volume fraction]37.2 %34.0-46.4FCity HospitalLaboratory - Chemistry and Chemistry - challengeOrdered By: Jason Milton on 11-18-2021 Natriuretic peptide B (Bld) [Mass/Vol]17.0 pg/mL5-100[facility] CampusLaboratory - Hematology and Cell countsOrdered By: Jason Milton on 39-02-8119Kmfisyqfc RBC/100 WBC (Bld) [Ratio]0.1 %0-0.5FCity HospitalLymphocytes Auto (Bld) [#/Vol]Ordered By: Jason Milton on 22-78-3009Kttezgtvwzu (Bld) [#/Vol]2.0 10*3/uL1.00-4.8[facility] CampusLymphocytes/100 WBC Auto (Bld)Ordered By: Jason Milton on 11-18-2021 Lymphocytes/100 WBC (Bld)16.7 %.[facility] CampusMCH Auto (RBC) [Entitic mass]Ordered By: Jason Milton on 80-33-9218VMA (RBC) [Entitic mass] 25.9 pg24.7-34.3FCity HospitalMCHC Auto (RBC) [Mass/Vol] Ordered By: Jaosn Milton on 52-81-6054ETXY (RBC) [Mass/Vol]31.8 g/dL32.0-35.0 [facility] CampusMCV Auto (RBC) [Entitic vol]Ordered By: Jason Milton on 39-36-0899AUX (RBC) [Entitic vol]81.4 lW97-124XlkcdtdwwTrinity Health System West CampusMonocytes Auto (Bld) [#/Vol]Ordered By: Jason Milton on 52-82-9767Qlnolreed (Bld) [#/Vol]0.7 10*3/uL0.0-0.8[facility] CampusMonocytes/100 WBC Auto (Bld)Ordered By: Jason Milton on 11-18-2021 Monocytes/100 WBC (Bld)5.6 %.[facility] CampusNeutrophils Auto (Bld) [#/Vol]Ordered By: Jason Milton on 90-78-2398Xeblkemyycl (Bld) [#/Vol]8.9 10*3/uL1.8-7.7FCity HospitalNeutrophils/100 WBC Auto (Bld) Ordered By: Jason Milton on 70-96-3780Jcjlgcjqtkq/100 WBC (Bld)73.8 %.[facility] CampusNo Panel InformationOrdered By: Jason Milton on 62-55-9202Jiuvdbaru GFR ()> 60 mL/MinTrinity Health System West CampusComment on above:GFR estimated reference range: According to KDOQI guidelines, <60 ml/min/1.73m2 is sufficient todiagnose a patient with chronic kidney disease.Pharmacy Creatinine Clearance (Chem94.32[facility] CampusPlatelet mean volume Auto (Bld) [Entitic vol]Ordered By: Jason Milton on 20-06-5914Dvyutuwy mean volume (Bld) [Entitic vol]7.9 fL6.3-10.7 [facility] CampusPlatelets Auto (Bld) [#/Vol]Ordered By: Jason Milton on 00-25-4230Xtvfucppq (Bld) [#/Vol]326 10*3/jH165-757TbejhxitwTrinity Health System West CampusProtein [Mass/volume] in Serum or PlasmaOrdered By: Jason Milton on 02-78-5452Fptezvy [Mass/Vol]6.7 g/dL6.1-7.9[facility] RBC Auto (Bld) [#/Vol]Ordered By: Jason Milton on 85-81-6073ROF (Bld) [#/Vol] 4.57 10*6/uL3.60-5.00[facility] Hospitalerum or plasma alanine aminotransferase measurement without P-5'-P (enzymatic activiOrdered By: Jason Milton on 34-22-7424WBG No additional P-5'-P [Catalytic activity/Vol]15 U/L10-60 [facility] Hospitalerum or plasma albumin/globulin mass ratio Ordered By: Jason Milton on 54-70-0813Edxruzi/Globulin [Mass ratio]1.3 {ratio} [facility] Hospitalerum or plasma alkaline phosphatase measurement (enzymatic activity/volume)Ordered By: Jason Milton on 11-18-2021 ALP [Catalytic activity/Vol]99 U/A79-57VphpthzszAvita Health System Bucyrus Hospitalerum or plasma anion gap determinationOrdered By: Jason Milton on 83-89-0484Xtitv gap [Moles/Vol]17.9 mmol/L6.0-15.0[facility] Hospitalerum or plasma aspartate aminotransferase measurement (enzymatic activity/volume)Ordered By: Jason Milton on 12-24-6096LZU [Catalytic activity/Vol]22 U/O42-13MylkeslrlAvita Health System Bucyrus Hospitalerum or plasma calcium measurement (mass/volume)Ordered By: Jason Milton on 86-62-5662Meziqfr [Mass/Vol]8.9 mg/dL8.2-10.2FWright-Patterson Medical Centererum or plasma chloride measurement (moles/volume) Ordered By: Jason Milton on 03-36-3089Jnbxcmxf [Moles/Vol]99 mmol/L95-114 [facility] Hospitalerum or plasma creatine kinase MB (CKMB)/total creatine kinase (CK) ratio by calculaOrdered By: Jason Milton on 11-18-2021 CK.MB Calc [Catalytic fraction]1.2 %0.00-2.50[facility] Serum or plasma creatine kinase MB measurement (mass/volume)Ordered By: Jason Milton on 03-17-0265MN.MB [Mass/Vol]1.0 ng/mL0.6-6.3FWright-Patterson Medical Centererum or plasma glucose measurement (mass/volume)Ordered By: Jason Milton on 85-72-2272Pnmxqnv [Mass/Vol]104 mg/nJ18-793JtijqjxbaTrinity Health System [facility] Campus Comment on above:ADA recommended reference rangeRandom Glucose Reference Range is dependent on time and content of last meal. Glucose of more than 200 mg/dL in a nonstressed, ambulatory subject supports the diagnosisof Diabetes Mellitus. Serum or plasma potassium measurement (moles/volume)Ordered By: Jason Milton on [id number] [Moles/Vol]4.6 mmol/L3.5-5.1FWright-Patterson Medical Centererum or plasma sodium measurement (moles/volume)Ordered By: Jason Milton on 51-67-4100Xaskhn [Moles/Vol]134 mmol/M881-140DihubiegxAvita Health System [facility] Hospitalerum or plasma total bilirubin measurement (mass/volume)Ordered By: Jason Milton on 24-77-8644Zhsdeorxl [Mass/Vol]1.0 mg/dL0.3-1.2FWright-Patterson Medical Centererum or plasma total carbon dioxide measurement (moles/volume)Ordered By: Jason Milton on 84-97-5025DG2 [Moles/Vol]21.7 mmol/L 22.0-30.0[facility]cyrus Hospitalerum or plasma urea nitrogen measurement (mass/volume)Ordered By: Jason Milton on 08-68-6908Kbvq nitrogen [Mass/Vol]10 mg/dL9-23[facility] CampusTroponin I.cardiac [Mass/volume] in Serum or Plasma by High sensitivity methodOrdered By: Jason Mitlon on 25-65-5850Gefbwesf I.cardiac High sensitivity method [Mass/Vol]3 pg/mL 0-15[facility] CampusXR Chest 2 Views*on 89-16-2957HB Chest 2 Views*COMPARISON: FINDINGS: The cardiomediastinal silhouette is unremarkable. The lungs are free of infiltrates effusions or consolidations. The bones and soft tissues are within normal limits. There are surgical clips in the region of the GE junction and upper abdomen. IMPRESSION: There are no infiltrates or effusions Report reported and signed by JANICE JERONIMO on 11/17/2021 1823NormalNorthern Georgia Medical SpecialistQ - CULTURE,URINE,ROUTINEon [id number], URINE, ROUTINESEE NOTENormalNorthern Georgia Medical SpecialistComment on above:Order Comment: [facility] performed at: QPT, [facility], [address], [address] [place] [address], [place], [address], Plaster Caster: Bob Snowden MD [facility] Collection Date/Time: [id number] [facility] Results Received Date/Time: [id number] [facility] Reported Date/Time: [id number] Comment: CULTURE, URINE, ROUTINE Micro Number: [id number] Test Status: Final Specimen Source: Urine Specimen Quality: Adequate Result: Mixed genital laurence isolated. These superficial bacteria are not indicative of a urinary tract infection. No further organism identification is warranted on this specimen. If clinically indicated, recollect clean-catch, mid-stream urine and transfer immediately to Urine Culture Transport Tube.Performed By: #### [id number] #### [facility] [address] [place], [place] [address]Knhdslpy Blood Counton 79-53-1697Xhwlbnqspog distribution width (RBC) [Ratio]17.6 %High11.0-15.0[facility] SpecialistComment on above:Performed By: #### LIPD, CBC, TSH reflex FT4, CMP #### [facility] [address] [place], [place] [id number] (Bld) [Volume fraction]40.9 %Pfeoyz46.0-47.0 [facility] SpecialistComment on above:Performed By: #### LIPD, CBC, TSH reflex FT4, CMP #### [facility] [address] [place], [place] [id number] (Bld) [Mass/Vol]12.4 g/hQVpumru22.6-15.5NoAvita Health System SpecialistComment on above:Performed By: #### LIPD, CBC, TSH reflex FT4, CMP #### [facility] [address] [place], [place] [id number] (RBC) [Entitic mass]24.8 pgLow27.0-33.0NoAvita Health System SpecialistComment on above:Performed By: #### LIPD, CBC, TSH reflex FT4, CMP #### [facility] [address] [place], [place] [id number] (RBC) [Mass/Vol]30.3 g/dLLow32.0-36.0[facility] SpecialistComment on above:Performed By: #### LIPD, CBC, TSH reflex FT4, CMP #### [facility] [address] [place], [place] [id number] (RBC) [Entitic vol]82 tDLuladb82-881Kquzbhja [place] [facility] SpecialistComment on above:Performed By: #### LIPD, CBC, TSH reflex FT4, CMP #### [facility] [address] [place], [place] [id number] mean volume (Bld) [Entitic vol]10.30 fLNormal 7.50-12.50NoAvita Health System SpecialistComment on above:Performed By: #### LIPD, CBC, TSH reflex FT4, CMP #### [facility] [address] [place], [place] [id number] (Bld) [#/Vol]284 10*3/zYPyovow730-623Gyrtrvwj [place] [facility] SpecialistComment on above:Performed By: #### LIPD, CBC, TSH reflex FT4, CMP #### [facility] [address] [place], [place] [id number] (Bld) [#/Vol]4.99 10*6/uLNormal3.90-5.20NoAvita Health System SpecialistComment on above:Performed By: #### LIPD, CBC, TSH reflex FT4, CMP #### [facility] [address] [place], [place] [id number]-TQ30.6 qOEpau17.0-50.0NoAvita Health System Specialist Comment on above:Performed By: #### LIPD, CBC, TSH reflex FT4, CMP #### [facility] [address] [place], [place] [id number] (Bld) [#/Vol]11.3 10*3/uLHigh3.8-11.0[facility] SpecialistComment on above:Performed By: #### LIPD, CBC, TSH reflex FT4, CMP #### [facility] [address] [place], [place] [id number] Metabolic Panelon 93-27-0286Fexeqfk [Mass/Vol] 4.2 g/dLNormal3.6-5.1[facility] SpecialistComment on above:Performed By: #### LIPD, CBC, TSH reflex FT4, CMP #### [facility] [address] [place], [place] [id number]/Globulin [Mass ratio]1.6 {ratio}Normal1.0-2.5NoAvita Health System SpecialistComment on above:Performed By: #### LIPD, CBC, TSH reflex FT4, CMP #### [facility] [address] [place], [place] [id number] [Catalytic activity/Vol]88 U/UZrkxyb94-369Bntqoqvx [place] [facility] SpecialistComment on above:Performed By: #### LIPD, CBC, TSH reflex FT4, CMP #### [facility] [address] [place], [place] [id number] [Catalytic activity/Vol]18 U/LNormal6-33NoAvita Health System SpecialistComment on above:Result Comment: 01/21/2021 Female reference range changed.Performed By: #### LIPD, CBC, TSH reflex FT4, CMP #### [facility] [address] [place], [place] [id number] gap [Moles/Vol]20 mmol/OZkucvx57-99Nrdeccbg [place] [facility] SpecialistComment on above:Result Comment: Effective 02/26/2019 reference range changed.Performed By: #### LIPD, CBC, TSH reflex FT4, CMP #### [facility] [address] [place], [place] [id number] [Catalytic activity/Vol]17 U/LNormal9-34NoAvita Health System SpecialistComment on above:Performed By: #### LIPD, CBC, TSH reflex FT4, CMP #### [facility] [address] [place], [place] [id number]/CREA16 RatioNormal6-22NoAvita Health System Specialist Comment on above:Performed By: #### LIPD, CBC, TSH reflex FT4, CMP #### [facility] [address] [place], [place] [id number] [Mass/Vol]9.7 mg/dLNormal8.6-10.2[facility] [place] [facility] SpecialistComment on above:Performed By: #### LIPD, CBC, TSH reflex FT4, CMP #### [facility] [address] [place], [place] [id number] [Moles/Vol]101 mmol/BEtpwrz29-008Vrknzgjf [place] [facility] SpecialistComment on above:Performed By: #### LIPD, CBC, TSH reflex FT4, CMP #### [facility] [address] [place], [place] [id number] [Moles/Vol]21 mmol/XOgrmoa08-69Jtkujymb [facility] SpecialistComment on above:Performed By: #### LIPD, CBC, TSH reflex FT4, CMP #### [facility] [address] [place], [place] [id number] [Mass/Vol]1.0 mg/dLNormal0.6-1.4[facility] SpecialistComment on above:Performed By: #### LIPD, CBC, TSH reflex FT4, CMP #### [facility] [address] [place], [place] [id number] mL/min/1.32f5Swrfjr>60[facility] SpecialistComment on above:Performed By: #### LIPD, CBC, TSH reflex FT4, CMP #### [facility] [address] [place], [place] [id number] mL/min/1.22b2Hzntji>60[facility] [place] [facility] SpecialistComment on above:Performed By: #### LIPD, CBC, TSH reflex FT4, CMP #### [facility] [address] [place], [place] [id number] (S) [Mass/Vol]2.6 g/dLNormal1.9-3.7[facility] SpecialistComment on above:Performed By: #### LIPD, CBC, TSH reflex FT4, CMP #### [facility] [address] [place], [place] [id number] [Mass/Vol]106 mg/uYByfe34-18Xjvxttfl [place] [facility] SpecialistComment on above:Result Comment: For FASTING Glucose --- ADA reference ranges: Normal 65-99 mg/dl Prediabetes 100-125 Diabetes >/= 126Performed By: #### LIPD, CBC, TSH reflex FT4, CMP #### [facility] [address] [place], [place] [id number] [Moles/Vol]4.4 mmol/LNormal3.5-5.5NoAvita Health System SpecialistComment on above:Performed By: #### LIPD, CBC, TSH reflex FT4, CMP #### [facility] [address] [place], [place] [id number] [Mass/Vol]6.8 g/dLNormal6.1-8.1[facility]Reg[facility] CenterCommclaren [facility] on above:Performed By: #### LIPD, CBC, TSH reflex FT4, CMP #### [facility] [address] [place], [place] [id number] [Moles/Vol]138 mmol/AFszfin045-921AdplerhwFairfield Medical Center on above:Performed By: #### LIPD, CBC, TSH reflex FT4, CMP #### [facility] [address] [place], [place] [id number]<0.3NormalNoAshtabula County Medical CenterCommclaren bay region on above:Performed By: #### LIPD, CBC, TSH reflex FT4, CMP #### [facility] [address] [place], [place] [id number] nitrogen [Mass/Vol]15 mg/dLNormal7-25NoAvita Health System SpecialistRusk Rehabilitation Center on above:Performed By: #### LIPD, CBC, TSH reflex FT4, CMP #### [facility] [address] [place], [place] [id number] Panelon 02-03-2646Ecfsjniardt [Mass/Vol]217 mg/dLHigh 125-200NoFairfield Medical Center on above:Result Comment: Low risk < 200mg/dL Borderline risk 201-239 mg/dl High risk > or equal to 240Performed By: #### LIPD, CBC, TSH reflex FT4, CMP #### [facility] [address] [place], [place] [id number] in HDL [Mass/Vol]38 mg/dLLow>40NoAvita Health System SpecialistComment on above:Result Comment: High Cardiovascular Risk HDL <40 mg/dL Low Cardiovascular Risk HDL > or equal to 60 mg/dlPerformed By: #### LIPD, CBC, TSH reflex FT4, CMP #### [facility] [address] [place], [place] [id number] in LDL [Mass/Vol]130 mg/dLNormsdNoAvita Health System SpecialistComment on above:Result Comment: LDL ATP III CLASSIFICATION LDL less than 100 mg/dl Optimal LDL 100-129 mg/dl Near or above optimal LDL 130-159 Borderline high LDL 160-189 High LDL greater than 189 mg/dl Very HighPerformed By: #### LIPD, CBC, TSH reflex FT4, CMP #### [facility] [address] [place], [place] [id number] in VLDL [Mass/Vol]49 mg/dLNormDayton Children's Hospital SpecialistComment on above:Performed By: #### LIPD, CBC, TSH reflex FT4, CMP #### [facility] [address] [place], [place] [id number].total/Cholesterol in HDL [Mass ratio]6 {ratio} NormalNoAshtabula County Medical CenterComment on above:Performed By: #### LIPD, CBC, TSH reflex FT4, CMP #### [facility] [address] [place], [place] [id number] [Mass/Vol]246 mg/vCOarc95-956Agazhhkz [place] [facility] SpecialistComment on above:Result Comment: TRIG ATPIII CLASSIFICATIONS TRIG less than 150 mg/dl Normal TRIG 150-199 mg/dl Borderline High TRIG 200-500 mg/dl High TRIG greather than 500 mg/dl Very HighPerformed By: #### LIPD, CBC, TSH reflex FT4, CMP #### [facility] [address] [place], [place] [id number] w/ Reflex to Free T4on 99-49-8939KBG7.150 uIU/mLNormal 0.400-4.500[facility] SpecialistComment on above:Performed By: #### LIPD, CBC, TSH reflex FT4, CMP #### [facility] [address] [facility] [place] [place] [id number], ,Urineon 01-25-9088Mtwr HCG ( test) Ql (U)NegativeNormalNEGMercy Natchaug HospitalComment on above:Result Comment: Specimens with hCG levels near the threshold of the test (25 mIU/mL) may give a negative or indeterminate result. In such cases, another test should be performed with a new specimen in 48-72 hours. If early is suspected clinically in this setting, correlation with quantitative serum b-hCG level is suggested. [employer] has confirmed the use of plasma for this test. This has not been cleared or approved by the U.S. Food and Drug Administration. The FDA has determined that such clearance is not necessary.Performed By: #### BHCG #### [address] [place] [address] #### PROG #### [address] [address] Surgical Pathologyon [id number] Pathology(NOTE) [id number] [facility] ANATOMIC PATHOLOGY [address] [place] [id number] SURGICAL PATHOLOGY CONSULTATION Patient Name: MORRO MALONEYSara [facility] Rec: [id number] Path Number: [id number] Collected: 09/28/2018 Received: 09/29/2018 Reported: 10/02/2018 10:04 [...] mucosa 1cs. tm Microscopic Description Microscopic examination performed.[facility] Hospitalment on above: Performed By: #### AHCV, HIVCMB #### [employer] [address] [place] [id number] #### GLYHGB #### [address] [place] [address] US GALLBLADDER RUQon [id number] GALLBLADDER RUQEXAMINATION: GALLBLADDER ULTRASOUND 09/25/2018 8:01 am COMPARISON: None. HISTORY: ORDERING SYSTEM PROVIDED HISTORY: Abdominal pain, right upper quadrant FINDINGS: Visualized portions of the liver without acute abnormality. No focal hepatic mass lesion identified. Parenchymal echogenicity is grossly within normal limits. Borderline gallbladder wall thickening measuring 3-4 mm. Multiple intraluminal calculi identified. [employer] documents a negative sonographic Magana's sign. The common bile duct is normal and measures 4-5 mm. IMPRESSION: Cholelithiasis and borderline gallbladder wall thickening. No evidence for pericholecystic fluid or sonographic Magana's sign. IMPRESSION: Unremarkable right upper quadrant ultrasound. Interpreted by: Chencho Fonseca MD Signed by: Chencho Fonseca MD 09/25/18 Final resultNormOhioHealth Grove City Methodist HospitalCult,Urineon [id number],UrineSpecimen Description .CLEAN CATCH URINE Special Requests NOT REPORTED Culture NO SIGNIFICANT GROWTH Report Status FINAL 08/03/2018NoFisher-Titus Medical Centerment on above: Performed By: #### BHCG #### [address] [place] [address] #### PROG #### [employer] [address] [place] [id number] CBCon 05-29-9751Dlyodxtxuvb distribution width (RBC) [Ratio]16.2 % High11.8-14.4[facility] HospitalComment on above:Performed By: #### BHCG #### [address] [place] [address] #### PROG #### [address] [address] Hematocrit (Bld) [Volume fraction]31.0 %Low36.3-47.1MKindred HealthcareComment on above:Performed By: #### BHCG #### [address] [place] [address] #### PROG #### [address] [address] Hemoglobin (Bld) [Mass/Vol]9.6 g/dLLow11.9-15.1MKindred HealthcareComment on above:Performed By: #### ARACELIG #### [address] [place] [address] #### PROG #### [address] [address] MCH (RBC) [Entitic mass]25.2 iaYeeeux73.2-33.5[facility] Comment on above:Performed By: #### BHCG #### [address] [place] [address] #### PROG #### [address] [address] MCHC (RBC) [Mass/Vol]31.0 g/jDGcnnks48.4-34.8[facility] Comment on above:Performed By: #### BHCG #### [address] [place] [address] #### PROG #### [place] [address] [place] [address] MCV (RBC) [Entitic vol]81.4 fLLow82.6-102.9[facility] Comment on above:Performed By: #### LOVELY #### [address] [place] [address] #### PROG #### [address] [address] NRBC Automated0.0 per 100 WBCNormal0.0[facility] HospitalComment on above:Performed By: #### LOVELY #### [address] [place] [address] #### PROG #### [address] [address] Platelet mean volume (Bld) [Entitic vol]10.5 fLNormal8.1-13.5[facility] HospitalComment on above:Performed By: #### LOVELY #### [address] [place] [address] #### PROG #### [address] [address] Platelets (Bld) [#/Vol]266 10*3/iDVyrjsa906-341XuhboOhiohealth Marion General HospitalComment on above:Performed By: #### ARACELIG #### [address] [place] [address] #### PROG #### [address] [address] RBC (Bld) [#/Vol]3.81 10*6/uLLow3.95-5.11[facility] Comment on above:Performed By: #### ARACELIG #### [address] [place] [address] #### PROG #### [address] [address] WBC (Bld) [#/Vol]18.9 10*3/uLHigh3.5-11.3MKindred Healthcare Comment on above:Performed By: #### ARACELIG #### [address] [place] [address] #### PROG #### [address] [address] Erythrocyte distribution width (RBC) [Ratio]16.3 %High11.8-14.4 [facility] HospitalComment on above:Performed By: #### ARACELIG #### [address] [place] [address] #### PROG #### [address] [address] Hematocrit (Bld) [Volume fraction]34.6 %Low36.3-47.1MKindred HealthcareComment on above:Performed By: #### BHCG #### [address] [place] [address] #### PROG #### [address] [address] Hemoglobin (Bld) [Mass/Vol]10.4 g/dLLow11.9-15.1MKindred HealthcareComment on above:Performed By: #### BHCG #### [address] [place] [address] #### PROG #### [address] [address] MCH (RBC) [Entitic mass]24.9 pgLow25.2-33.5[facility] Comment on above:Performed By: #### ARACELIG #### [address] [place] [address] #### PROG #### [address] [address] MCHC (RBC) [Mass/Vol]30.1 g/sFLkjvio33.4-34.8[facility] Comment on above:Performed By: #### LOVELY #### [address] [place] [id number] #### PROG #### [address] [address] MCV (RBC) [Entitic vol]83.0 jIKhvple45.6-102.9[facility] Comment on above:Performed By: #### LOVELY #### [address] [place] [address] #### PROG #### [address] [address] NRBC Automated0.0 per 100 WBCNormal0.0[facility] HospitalComment on above:Performed By: #### LOVELY #### [address] [place] [address] #### PROG #### [address] [address] Platelet mean volume (Bld) [Entitic vol]10.2 fLNormal8.1-13.5[facility] HospitalComment on above:Performed By: #### ARACELIG #### [address] [place] [address] #### PROG #### [address] [address] Platelets (Bld) [#/Vol]307 10*3/cQXucemx648-247MtnovOhiohealth Marion General HospitalComment on above:Performed By: #### BHCG #### [address] [place] [address] #### PROG #### [address] [address] RBC (Bld) [#/Vol]4.17 10*6/uLNormal3.95-5.11[facility] Comment on above:Performed By: #### BHCG #### [address] [place] [address] #### PROG #### [address] [address] WBC (Bld) [#/Vol]13.1 10*3/uLHigh3.5-11.3MKindred Healthcare Comment on above:Performed By: #### BHCG #### [address] [place] [address] #### PROG #### [address] [address] Comp Metabolic Profon 08-02-2018(cont.)[facility] Comment on above:Result Comment: Average GFR for 30-39 years old: 107 mL/min/1.73sq m Chronic Kidney Disease: <60 mL/min/1.73sq m Kidney failure: <15 mL/min/1.73sq m eGFR calculated using average adult body mass. Additional eGFR calculator available at: http://www.[employer]com/multiple_crcl_2012.htmPerformed By: #### BHCG #### [address] [place] [address] #### PROG #### [address] [address] Albumin [Mass/Vol]3.0 g/dLLow3.5-5.2MKindred HealthcareComment on above:Performed By: #### LOVELY #### [address] [place] [address] #### PROG #### [address] [address] Albumin/Globulin [Mass ratio]1.2 {ratio}Normal1.0-2.5[facility] HospitalComment on above:Performed By: #### LOVELY #### [address] [place] [address] #### PROG #### [address] [address] Alkaline Dfzy694 U/NLlou25-883McxbzOhiohealth Marion General HospitalComment on above:Performed By: #### LOVELY #### [address] [place] [address] #### PROG #### [address] [address] ALT [Catalytic activity/Vol]60 U/LHigh5-33[facility] Comment on above:Performed By: #### LOVELY #### [address] [place] [address] #### PROG #### [address] [address] Anion gap [Moles/Vol]12 mmol/LNormal9-17[facility] Comment on above:Performed By: #### ARACELIG #### [address] [place] [address] #### PROG #### [address] [address] AST [Catalytic activity/Vol]54 U/LHigh<32[facility] Comment on above:Performed By: #### LOVELY #### [address] [place] [address] #### PROG #### [address] [address] Bilirubin Ql (U)0.89 mg/dLNormal0.3-1.2MKindred HealthcareComment on above:Performed By: #### LOVELY #### [address] [place] [address] #### PROG #### [address] [address] BUN/CRE Casnq42Eizyvp3-28Dchcy Tiffin HospitalComment on above: Performed By: #### LOVELY #### [address] [place] [address] #### PROG #### [address] [address] Calcium [Mass/Vol]9.1 mg/dLNormal8.6-10.4[facility] Comment on above:Performed By: #### ARACELIG #### [address] [place] [address] #### PROG #### [address] [address] Chloride [Moles/Vol]102 mmol/VNqsikc40-330SpbsuOhiohealth Marion General Hospital Comment on above:Performed By: #### ARACELIG #### [address] [place] [address] #### PROG #### [address] [address] CO2 [Moles/Vol]21 mmol/AJlvhmo07-71CsocvOhiohealth Marion General HospitalComment on above:Performed By: #### ARACELIG #### [address] [place] [address] #### PROG #### [address] [address] Creatinine [Mass/Vol]0.66 mg/dLNormal0.50-0.90[facility] Comment on above:Performed By: #### BHCG #### [address] [place] [address] #### PROG #### [address] [address] GFR, Amer>60Normal>60MerCommunity Regional Medical Center HospitalComment on above: Performed By: #### BHCG #### [address] [place] [address] #### PROG #### [address] [address] GFR,non Amer>60Normal>60[facility] HospitalComment on above:Performed By: #### ROLFCG #### [address] [place] [address] #### PROG #### [address] [address] Glucose [Mass/Vol]144 mg/nKYcwy70-91Qeibc [facility] HospitalComment on above:Performed By: #### BHCG #### [address] [place] [address] #### PROG #### [address] [address] Potassium [Moles/Vol]4.8 mmol/LNormal3.7-5.3MKindred Healthcare Comment on above:Performed By: #### BHCG #### [address] [place] [address] #### PROG #### [address] [address] Protein [Mass/Vol]5.6 g/dLLow6.4-8.3MKindred HealthcareComment on above:Performed By: #### ARACELIG #### [address] [place] [address] #### PROG #### [address] [address] Sodium [Moles/Vol]135 mmol/XPthekd839-380TjjqmOhiohealth Marion General Hospital Comment on above:Performed By: #### ARACELIG #### [address] [place] [address] #### PROG #### [address] [address] Staging:[facility] HospitalComment on above:Result Comment: Stage 1: Some kidney damage normal GFR Stage 2: Mild kidney damage GFR 60-89 Stage 3: Moderate kidney damage GFR 30-59 Stage 4: Severe kidney damage GFR 15-29 Stage 5: Severe kidney damage GFR <15 ESRD - chronic treatment by dialysis or transplantPerformed By: #### LOVELY #### [address] [place] [address] #### PROG #### [address] [address] Urea nitrogen [Mass/Vol]8 mg/dLNormal6-20[facility] Comment on above:Performed By: #### ARACELIG #### [address] [place] [address] #### PROG #### [address] [address] (cont.)NormalOhiohealth Marion General HospitalComment on above:Result Comment: Average GFR for 30-39 years old: 107 mL/min/1.73sq m Chronic Kidney Disease: <60 mL/min/1.73sq m Kidney failure: <15 mL/min/1.73sq m eGFR calculated using average adult body mass. Additional eGFR calculator available at: http://www.[employer]/multiple_crcl_2012.htmPerformed By: #### ARACELIG #### [address] [place] [address] #### PROG #### [address] [place] [address] Albumin [Mass/Vol]3.3 g/dLLow3.5-5.2MKindred HealthcareComment on above:Performed By: #### LOVELY #### [address] [place] [address] #### PROG #### [address] [address] Albumin/Globulin [Mass ratio]1.1 {ratio}Normal1.0-2.5[facility] HospitalComment on above:Performed By: #### ARACELIG #### [address] [place] [address] #### PROG #### [place] [address] [place] [address] Alkaline Kbyf789 U/ZFblf23-642YtfckOhiohealth Marion General HospitalComment on above:Performed By: #### ARACELIG #### [address] [place] [address] #### PROG #### [address] [place] [address] ALT [Catalytic activity/Vol]60 U/LHigh5-33[facility] Comment on above:Performed By: #### ARACELIG #### [address] [place] [address] #### PROG #### [address] [address] Anion gap [Moles/Vol]14 mmol/LNormal9-17[facility] Comment on above:Performed By: #### LOVELY #### [address] [place] [address] #### PROG #### [address] [address] AST [Catalytic activity/Vol]53 U/LHigh<32[facility] Comment on above:Performed By: #### LOVELY #### [address] [place] [address] #### PROG #### [address] [address] Bilirubin Ql (U)0.64 mg/dLNormal0.3-1.2MKindred HealthcareComment on above:Performed By: #### LOVELY #### [address] [place] [address] #### PROG #### [address] [address] BUN/CRE Hxqmp25Ochwzp7-65Mazpe [facility]iffin HospitalComment on above: Performed By: #### LOVELY #### [address] [place] [address] #### PROG #### [address] [address] Calcium [Mass/Vol]9.2 mg/dLNormal8.6-10.4[facility] Comment on above:Performed By: #### ARACELIG #### [address] [place] [address] #### PROG #### [address] [address] Chloride [Moles/Vol]100 mmol/CWnjyli24-098RtumqOhiohealth [facility] General Hospital Comment on above:Performed By: #### BHCG #### [address] [place] [address] #### PROG #### [address] [address] CO2 [Moles/Vol]22 mmol/RXwbesq35-39OoaynOhiohealth Marion General HospitalComment on above:Performed By: #### BHCG #### [address] [place] [address] #### PROG #### [address] [address] Creatinine [Mass/Vol]0.62 mg/dLNormal0.50-0.90[facility] Comment on above:Performed By: #### ARACELIG #### [address] [place] [address] #### PROG #### [address] [address] GFR, Amer>60Normal>60[facility] HospitalComment on above: Performed By: #### BHCG #### [address] [place] [address] #### PROG #### [address] [address] GFR,non Amer>60Normal>60[facility] HospitalComment on above:Performed By: #### BHCG #### [address] [place] [address] #### PROG #### [address] [address] Glucose [Mass/Vol]90 mg/oZXnsdnj16-00Ljjlb [facility] HospitalComment on above:Performed By: #### ROLFCG #### [address] [place] [address] #### PROG #### [address] [address] Potassium [Moles/Vol]4.3 mmol/LNormal3.7-5.3MKindred Healthcare Comment on above:Performed By: #### ARACELIG #### [address] [place] [address] #### PROG #### [address] [address] Protein [Mass/Vol]6.3 g/dLLow6.4-8.3MParkview Health Montpel[facility] Hospital HospitalComment on above:Performed By: #### ARACELIG #### [address] [place] [address] #### PROG #### [address] [address] Sodium [Moles/Vol]136 mmol/VCrabnh035-639IupquOhiohealth Marion General Hospital Comment on above:Performed By: #### ROLFCG #### [address] [place] [address] #### PROG #### [address] [address] Staging:NormalMain Campus Medical Center HospitalComment on above:Result Comment: Stage 1: Some kidney damage normal GFR Stage 2: Mild kidney damage GFR 60-89 Stage 3: Moderate kidney damage GFR 30-59 Stage 4: Severe kidney damage GFR 15-29 Stage 5: Severe kidney damage GFR <15 ESRD - chronic treatment by dialysis or transplantPerformed By: #### LOVELY #### [address] [place] [address] #### PROG #### [address] [address] Urea nitrogen [Mass/Vol]7 mg/dLNormal6-20[facility] Comment on above:Performed By: #### LOVELY #### [address] [place] [address] #### PROG #### [address] [address] Drug Scr, Abuse, Uron 55-91-8025Lzbrgsggwmh(s),UrNegativeNormalNEG [facility] HospitalComment on above:Performed By: #### LOVELY #### [address] [place] [address] #### PROG #### [address] [address] Barbiturate(s),UrNegativeNormalNEGMain Campus Medical Center HospitalComment on above:Performed By: #### ARACELIG #### [address] [place] [address] #### PROG #### [address] [address] Base excess Calc (Bld) [Moles/Vol]NegativeNormalNEGMain Campus Medical Center HospitalComment on above:Performed By: #### ARACELIG #### [address] [place] [address] #### PROG #### [address] [address] Benzodiazepine(s)NegativeNormalNEGMercy West [place] HospitalComment on above:Performed By: #### ARACELIG #### [address] [place] [address] #### PROG #### [address] [address] Buprenorphrine, UrNegativeNormalNEGMercy West [place] HospitalComment on above:Performed By: #### BHCG #### [address] [place] [address] #### PROG #### [address] [address] Cannabinoid(s),UrNegativeNormalNEGMercy West [place] HospitalComment on above:Performed By: #### BHCG #### [address] [place] [address] #### PROG #### [address] [address] Methadone Ql (U)NegativeNormalNEGMercy West [place] HospitalComment on above:Performed By: #### BHCG #### [address] [place] [address] #### PROG #### [address] [address] Methamphetamine, UrNegativeNormalNEGMercy West [place] HospitalComment on above:Performed By: #### BHCG #### [address] [place] [address] #### PROG #### [address] [address] Opiate(s), UrNegativeNormalNEGMercy West [place] HospitalComment on above:Performed By: #### BHCG #### [address] [place] [address] #### PROG #### [address] [address] Oxycodone, UrineNegativeNormalNEGMercy West [place] HospitalComment on above:Performed By: #### BHCG #### [address] [place] [address] #### PROG #### [address] [address] Phencyclidine, UrNegativeNormalNEGMercy West [place] HospitalComment on above:Performed By: #### BHCG #### [address] [place] [address] #### PROG #### [address] [address] Propoxyphene,UrineNegativeNormalNEGMercy West [place] HospitalComment on above:Performed By: #### BHCG #### [address] [place] [address] #### PROG #### [address] [address] Tricyclic antidepressants Screen Ql (U)NegativeNormalNEGMercy West [place] HospitalComment on above:Result Comment: Drug screen results are to be used for medical purposes only. All positive results are unconfirmed. Testing for employment or legal uses should be sent to a reference laboratory for confirmation.Performed By: #### BHCG #### [address] [place] [address] #### PROG #### [address] [address] Interpretive InfoNOT REPORTEDNormalMercy West [place] HospitalComment on above:Performed By: #### BHCG #### [address] [place] [address] #### PROG #### [address] [address] MDMA, UrineNOT REPORTEDNormalNEGOhiohealth Marion General HospitalComment on above:Performed By: #### BHCG #### [address] [place], [place] [address] #### PROG #### [address] [address] Lactate Dehydrogenaseon 94-10-4433PWZ [Catalytic activity/Vol]234 U/SRgqt924-553OjjbyOhiohealth Marion General HospitalComment on above:Performed By: #### BHCG #### [address] [place], [place] [address] #### PROG #### [address] 2[address]108 Surgical Pathologyon 36-58-1128Yvlflclg Pathology(NOTE) [id number] [facility] Buck CONSULTING PATHOLOGISTS [facility] ANATOMIC PATHOLOGY [address] [place] [id number] SURGICAL PATHOLOGY CONSULTATION Patient Name: MORRO MALONEY [facility] Rec: [id number] Path Number: [id number] Collected: 08/02/2018 Received: 08/02/2018 Reported: 08/03/2018 15:34 [...] Normal Insertion into surface: Marginal MEMBRANES Color: [place]-ge, mostly translucent with a partial circummarginate insertion [...] Normal Insertion into surface: Paracentral MEMBRANES Color: [place]-ge, translucent with a partial circummarginate insertion over [...] in villous capillaries: Not increased Other: Few microcalcificationsNormalOhiohealth Marion General HospitalComment on above: Performed By: #### BHCG #### [facility] [address] [place] [address] #### PROG #### [address] [address] Type + Screenon [id number] + ScreenSample Expiration 08/04/2018 Arm Band Number [id number] ABO/Rh(D) O POSITIVE Antibody Screen NEGATIVENormalMercy West [place] HospitalComment on above:Performed By: #### LOVELY #### [address] [place] [address] #### PROG #### [address] [address] Uric Acidon 48-84-1755Weulj [Mass/Vol]5.9 mg/dLHigh2.4-5.7MerCommunity Regional Medical Center HospitalComment on above:Performed By: #### LOVELY #### [address] [place] [address] #### PROG #### [address] [address] Urinalysis, Routineon 13-72-2636Ntmsofqdjif Acid,UrNegativeNormal NEGMerCommunity Regional Medical Center HospitalComment on above:Performed By: #### LOVELY #### [address] [place] [address] #### PROG #### [address] [address] Bilirubin, SemiQt,UrSMALLAbnormalNEGMerCommunity Regional Medical Center HospitalComment on above:Performed By: #### LOVELY #### [address] [place] [address] #### PROG #### [address] [address] Color (U)YELLOWNormalYELMercy West [place] HospitalComment on above: Performed By: #### LOVELY #### [address] [place] [address] #### PROG #### [address] [address] Glucose Ql (U)NegativeNormalNEGMerCommunity Regional Medical Center HospitalComment on above:Performed By: #### ROLFCG #### [address] [place] [address] #### PROG #### [address] [address] Hemoglobin, Ur3+AbnormalNEGMerCommunity Regional Medical Center HospitalComment on above: Performed By: #### LOVELY #### [address] [place] [address] #### PROG #### [address] [address] Leukocyte esterase Test strip Ql (U)SMALLAbnormalNEGMerCommunity Regional Medical Center HospitalComment on above:Performed By: #### LOVELY #### [address] [place] [address] #### PROG #### [address] [address] Nitrite,UrNegativeNormalNEGMain Campus Medical Center HospitalComment on above: Performed By: #### LOVELY #### [address] [place] [address] #### PROG #### [address] [address] pH (U)6.0 [pH]Normal5.0-9.0[facility] HospitalComment on above: Performed By: #### ARACELIG #### [address] [place] [address] #### PROG #### [address] [address] Protein Ql (U)1+AbnormalNEGOhiohealth Marion General HospitalComment on above: Performed By: #### LOVELY #### [address] [place] [address] #### PROG #### [address] [address] Specific gravity (U) [Rel density]1.528Xrjw4.010-1.020[facility] HospitalComment on above:Performed By: #### ARACELIG #### [address] [place] [address] #### PROG #### [address] [address] TurbidityCLEARNormalCLEARMain Campus Medical Center HospitalComment on above: Performed By: #### LOVELY #### [address] [place] [address] #### PROG #### [address] [address] Urobilinogen,UrNormalNormalNORMOhiohealth Marion General HospitalComment on above:Performed By: #### ARACELIG #### [address] [place] [address] #### PROG #### [address] [address] CommentNOT REPORTEDNormalMain Campus Medical Center HospitalComment on above: Performed By: #### ARACELIG #### [address] [place] [address] #### PROG #### [address] [address] Urinalysis,Microon 08-02-2018-----NormalOhiohealth [facility] General Hospital Comment on above:Performed By: #### BHCG #### [address] [place] [address] #### PROG #### [address] [address] Epithelial cells LM.HPF (Urine sed) [#/Area]0 TO 5Emrvno2-22Vaabh [place] HospitalComment on above:Performed By: #### LOVELY #### [address] [place] [address] #### PROG #### [address] [address] RBC (U) [#/Vol]10 TO 07Umragi9-6Apuko [place] HospitalComment on above:Performed By: #### LOVELY #### [address] [place] [address] #### PROG #### [address] [address] WBC (U) [#/Vol]5 TO 61Wnlfyh0-1Myrus [place] HospitalComment on above:Performed By: #### LOVELY #### [address] [place] [address] #### PROG #### [address] [address] Amorphous sediment LM Ql (Urine sed)NOT REPORTEDNormalNONEMey [place] HospitalComment on above:Performed By: #### ARACELIG #### [address] [place] [address] #### PROG #### [address] [address] Bacteria LM.HPF (Urine sed) [#/Area]NOT REPORTEDNormalNONEMercy West [place] HospitalComment on above:Performed By: #### ARACELIG #### [address] [place] [address] #### PROG #### [address] [address] Casts LM.LPF (Urine sed) [#/Area]NOT REPORTEDNormalMercy West [place] HospitalComment on above:Performed By: #### ROLFCG #### [address] [place] [address] #### PROG #### [address] [address] Crystals LM Nom (Urine sed)NOT REPORTEDNormalNONEMercCommunity Regional Medical Center HospitalComment on above:Performed By: #### ARACELIG #### [address] [place] [address] #### PROG #### [address] [address] Epithelial, RenalNOT BIIXRTDJCvjcow9Yupid [place] HospitalComment on above:Performed By: #### ARACELIG #### [address] [place] [address] #### PROG #### [address] [address] Mucus StrandsNOT REPORTEDNormalNONEMercCommunity Regional Medical Center HospitalComment on above:Performed By: #### BHCG #### [address] [place] [address] #### PROG #### [address] [address] Other ObservationsNOT REPORTEDNormalNREQMain Campus Medical Center Hospital Comment on above:Performed By: #### BHCG #### [address] [place] [address] #### PROG #### [address] [address] TrichomonasNOT REPORTEDPeoples HospitalComment on above:Performed By: #### BHCG #### [address] [place] [address] #### PROG #### [address] [address] Yeast LM Ql (Urine sed)NOT REPORTEDPeoples Hospital Comment on above:Performed By: #### ARACELIG #### [address] [place] [address] #### PROG #### [address] [address] CBC with Diffon 45-19-1507Pfi. Basophil0.05 k/uLNormal0.00-0.20 [facility] HospitalComment on above:Performed By: #### BHJaseG #### [address] [place] [address] #### PROG #### [address] [address] Abs.Imm.Granulocyte0.05 k/uLNormal0.00-0.30[facility] Comment on above:Performed By: #### BHCG #### [address] [place] [address] #### PROG #### [address] [address] Abs.Neutrophil (Seg)6.50 k/uLNormal1.50-8.10[facility] Comment on above:Performed By: #### BHCG #### [address] [place] [address] #### PROG #### [address] [address] Basophils/100 WBC (Bld)1 %Normal0-2MParkview Health Montpelier Hospital HospitalComment on above:Performed By: #### ARACELIG #### [address] [place] [address] #### PROG #### [address] [address] Eosinophils (Bld) [#/Vol]0.41 10*3/uLNormal0.00-0.44[facility] HospitalComment on above:Performed By: #### ARACELIG #### [address] [place] [address] #### PROG #### [address] [address] Eosinophils/100 WBC (Bld)4 %Normal1-4[facility] HospitalComment on above:Performed By: #### LOVELY #### [address] [place] [address] #### PROG #### [address] [address] Erythrocyte distribution width (RBC) [Ratio]16.0 %High11.8-14.4 [facility] HospitalComment on above:Performed By: #### ARACELIG #### [address] [place] [address] #### PROG #### [address] [address] Hematocrit (Bld) [Volume fraction]35.8 %Low36.3-47.1MParkview Health Montpelier Hospital HospitalComment on above:Performed By: #### ARACELIG #### [address] [place] [address] #### PROG #### [address] [address] Hemoglobin (Bld) [Mass/Vol]10.9 g/dLLow11.9-15.1MKindred HealthcareComment on above:Performed By: #### ROLFCG #### [address] [place] [address] #### PROG #### [address] [address] Immature granulocytes (Bld) [#/Vol]1 %Hzwk3UczrwOhiohealth Marion General Hospital Comment on above:Performed By: #### ROLFCG #### [address] [place] [address] #### PROG #### [address] [address] Lymphocytes (Bld) [#/Vol]3.07 10*3/uLNormal1.10-3.70[facility] HospitalComment on above:Performed By: #### ARACELIG #### [address] [place] [address] #### PROG #### [address] [address] Lymphocytes/100 WBC (Bld)28 %Vbkhcj37-50DierjOhiohealth Marion General Hospital Comment on above:Performed By: #### BHCG #### [address] [place] [address] #### PROG #### [address] [address] MCH (RBC) [Entitic mass]25.6 qtHakmst82.2-33.5[facility] Comment on above:Performed By: #### BHCG #### [address] [place] [address] #### PROG #### [address] [address] MCHC (RBC) [Mass/Vol]30.4 g/yUUtygir71.4-34.8[facility] Comment on above:Performed By: #### LOVELY #### [address] [place] [address] #### PROG #### [address] [address] MCV (RBC) [Entitic vol]84.0 mVZbeyal74.6-102.9[facility] Comment on above:Performed By: #### LOVELY #### [address] [place] [address] #### PROG #### [address] [address] Monocytes (Bld) [#/Vol]0.84 10*3/uLNormal0.10-1.20[facility] HospitalComment on above:Performed By: #### LOVELY #### [address] [place] [address] #### PROG #### [address] [address] Monocytes/100 WBC (Bld)8 %Normal3-12[facility] HospitalComment on above:Performed By: #### ARACELIG #### [address] [place] [address] #### PROG #### [address] [address] Neutrophil (Seg)58 %Ikljma06-85Jvoau [facility]iffin HospitalComment on above:Performed By: #### ARACELIG #### [address] [place] [address] #### PROG #### [address] [address] NRBC Automated0.0 per 100 WBCNormal0.0[facility] HospitalComment on above:Performed By: #### ARACELIG #### [address] [place] [address] #### PROG #### [address] [address] Platelet mean volume (Bld) [Entitic vol]10.4 fLNormal8.1-13.5[facility] HospitalComment on above:Performed By: #### LOVELY #### [address] [place] [address] #### PROG #### [address] [address] Platelets (Bld) [#/Vol]260 10*3/pBJcxjot551-518BwuzkOhiohealth Marion General HospitalComment on above:Performed By: #### ARACELIG #### [address] [place] [address] #### PROG #### [address] [address] RBC (Bld) [#/Vol]4.26 10*6/uLNormal3.95-5.11[facility] Comment on above:Performed By: #### ARACELIG #### [address] [place] [address] #### PROG #### [address] [address] WBC (Bld) [#/Vol]10.9 10*3/uLNormal3.5-11.3MKindred Healthcare Comment on above:Performed By: #### BHCG #### [address] [place] [address] #### PROG #### [address] [address] Auto Diff PerformedNOT REPORTEDNoCleveland Clinic Foundation HospitalComment on above:Performed By: #### BHCG #### [address] [place] [address] #### PROG #### [address] [address] Platelets (Bld) [#/Vol]NOT REPORTEDThe [facility] Comment on above:Performed By: #### BHCG #### [address] [place] [address] #### PROG #### [address] [address] RBC morphology finding Nom (Bld)NOT REPORTEDThe Christ HospitalComment on above:Performed By: #### BHCG #### [address] [place] [address] #### PROG #### [address] [address] WBC MorphologyNOT REPORTEDBrecksville VA / Crille Hospital HospitalComment on above:Performed By: #### BHCG #### [address] [place] [address] #### PROG #### [address] [address] Comp Metabolic Profon 07-22-2018(cont.)[facility] Comment on above:Result Comment: Average GFR for 30-39 years old: 107 mL/min/1.73sq m Chronic Kidney Disease: <60 mL/min/1.73sq m Kidney failure: <15 mL/min/1.73sq m eGFR calculated using average adult body mass. Additional eGFR calculator available at: http://www.[employer]/multiple_crcl_2012.htmPerformed By: #### ARACELIG #### [address] [place] [address] #### PROG #### [facility] [address] [place] [address] Albumin [Mass/Vol]3.2 g/dLLow3.5-5.2MKindred HealthcareComment on above:Performed By: #### LOVELY #### [address] [place] [address] #### PROG #### [facility] [address] [place] [address] Albumin/Globulin [Mass ratio]1.1 {ratio}Normal1.0-2.5[facility] HospitalComment on above:Performed By: #### LOVELY #### [address] [place] [address] #### PROG #### [place] [address] [place] [address] Alkaline Hkmy216 U/BFcci60-120InxauOhiohealth Marion General HospitalComment on above:Performed By: #### LOVELY #### [address] [place] [address] #### PROG #### [facility] [address] [place] [address] ALT [Catalytic activity/Vol]41 U/LHigh5-33[facility] Comment on above:Performed By: #### LOVELY #### [address] [place] [address] #### PROG #### [place] [address] [place] [address] Anion gap [Moles/Vol]12 mmol/LNormal9-17[facility] Comment on above:Performed By: #### ARACELIG #### [address] [place] [address] #### PROG #### [address] [address] AST [Catalytic activity/Vol]29 U/LNormal<32[facility] Comment on above:Performed By: #### LOVELY #### [address] [place] [address] #### PROG #### [address] [address] Bilirubin Ql (U)0.40 mg/dLNormal0.3-1.2MKindred HealthcareComment on above:Performed By: #### LOVELY #### [address] [place] [address] #### PROG #### [address] [address] BUN/CRE Ljxzi3Gqz4-51SckdzOhiohealth Marion General HospitalComment on above: Performed By: #### ARACELIG #### [address] [place] [address] #### PROG #### [address] [address] Calcium [Mass/Vol]9.2 mg/dLNormal8.6-10.4[facility] Comment on above:Performed By: #### ARACELIG #### [address] [place] [address] #### PROG #### [facility] [address] [place] [address] Chloride [Moles/Vol]104 mmol/WHufegd47-255GcqrtOhiohealth [facility] General Hospital Comment on above:Performed By: #### BHCG #### [address] [place] [address] #### PROG #### [facility] [address] [place] [address] CO2 [Moles/Vol]21 mmol/RIuudae21-93FwqcnOhiohealth Marion General HospitalComment on above:Performed By: #### BHCG #### [address] [place] [address] #### PROG #### [address] [address] Creatinine [Mass/Vol]0.62 mg/dLNormal0.50-0.90[facility] Comment on above:Performed By: #### BHCG #### [address] [place] [address] #### PROG #### [address] [address] GFR, Amer>60Normal>60MerCommunity Regional Medical Center HospitalComment on above: Performed By: #### BHCG #### [address] [place] [address] #### PROG #### [facility] [address] [place] [address] GFR,non Amer>60Normal>60[facility] HospitalComment on above:Performed By: #### BHCG #### [address] [place] [address] #### PROG #### [address] [place] [address] Glucose [Mass/Vol]83 mg/qCAnpukl56-05Kvfpv [facility] HospitalComment on above:Performed By: #### BHCG #### [address] [place] [address] #### PROG #### [address] [address] Potassium [Moles/Vol]4.3 mmol/LNormal3.7-5.3MKindred Healthcare Comment on above:Performed By: #### ARACELIG #### [address] [place] [address] #### PROG #### [address] [address] Protein [Mass/Vol]6.0 g/dLLow6.4-8.3MParkview Health [facility]pel[facility] Hospital HospitalComment on above:Performed By: #### ARACELIG #### [address] [place] [address] #### PROG #### [address] [address] Sodium [Moles/Vol]137 mmol/DChljjk692-119KzlvfOhiohealth Marion General Hospital Comment on above:Performed By: #### ROLFCG #### [address] [place] [address] #### PROG #### [address] [address] Staging:NormalMain Campus Medical Center HospitalComment on above:Result Comment: Stage 1: Some kidney damage normal GFR Stage 2: Mild kidney damage GFR 60-89 Stage 3: Moderate kidney damage GFR 30-59 Stage 4: Severe kidney damage GFR 15-29 Stage 5: Severe kidney damage GFR <15 ESRD - chronic treatment by dialysis or transplantPerformed By: #### BHCG #### [address] [place] [address] #### PROG #### [address] [address] Urea nitrogen [Mass/Vol]5 mg/dLLow6-20[facility] HospitalComment on above:Performed By: #### BHCG #### [address] [place] [address] #### PROG #### [address] [address] Creatinine,Random Uron 78-36-3388Eougotddip [Mass/Vol]106.1 mg/dL Mnphaa55.0-217.0[facility] HospitalComment on above:Performed By: #### BHJaseG #### [address] [place] [address] #### PROG #### [address] [address] Cult,Urineon [id number],UrineSpecimen Description .CLEAN CATCH URINE Special Requests NOT REPORTED Culture NO GROWTH Report Status FINAL 07/21/2018NoMarietta Osteopathic ClinicComment on above: Performed By: #### BHCG #### [address] [place] [address] #### PROG #### [address] [address] Protein,Tot,[place] Uron 53-37-6989Jiw Prot. Conc.14 mg/dLNoMarietta Osteopathic ClinicComment on above:Result Comment: No normal range established. Performed By: #### BHCG #### [address] [place] [address] #### PROG #### [address] [address] Uric Acidon 04-08-0888Colvo [Mass/Vol]5.4 mg/dLNormal2.4-5.7[facility] HospitalComment on above:Performed By: #### BHJaseG #### [address] [place] [id number] #### PROG #### [address] [address] CBC with Diffon [id number]. Basophil0.06 k/uLNormal0.00-0.20 [facility] HospitalComment on above:Performed By: #### ARACELIG #### [address] [place] [phone] Abs.Imm.Granulocyte0.15 k/uLNormal0.00-0.30[facility] Comment on above:Performed By: #### ARACELIG #### [address] [place] [address] Abs.Neutrophil (Seg)9.77 k/uLHigh1.50-8.10[facility] Comment on above:Performed By: #### ARACELIG #### [address] [place] [phone] Basophils/100 WBC (Bld)0 %Normal0-2MercGriffin HospitalComment on above:Performed By: #### ARACELIG #### [address] [place] [address] Eosinophils (Bld) [#/Vol]0.34 10*3/uLNormal0.00-0.44[facility] HospitalComment on above:Performed By: #### ARACELIG #### [address] [place] [phone] Eosinophils/100 WBC (Bld)2 %Normal1-4[facility] HospitalComment on above:Performed By: #### BHCG #### [address] [place], [facility]83 Erythrocyte distribution width (RBC) [Ratio]15.9 %High11.8-14.4 [facility] HospitalComment on above:Performed By: #### ARACELIG #### [address] [place] [facility]83 Hematocrit (Bld) [Volume fraction]34.5 %Low36.3-47.1MParkview Health Montpelier Hospital HospitalComment on above:Performed By: #### ARACELIG #### [address] [place] [facility]83 Hemoglobin (Bld) [Mass/Vol]10.5 g/dLLow11.9-15.1MParkview Health Montpelier Hospital HospitalComment on above:Performed By: #### LOVELY #### [address] [place], [facility]83 Immature granulocytes (Bld) [#/Vol]1 %Nukb1WjpozOhiohealth Marion General Hospital Comment on above:Performed By: #### ARACELIG #### [address] [place], [facility]83 Lymphocytes (Bld) [#/Vol]3.00 10*3/uLNormal1.10-3.70[facility] HospitalComment on above:Performed By: #### ARACELIG #### [address] [place] [facility]83 Lymphocytes/100 WBC (Bld)21 %Dib75-25FekhdOhiohealth Marion General HospitalComment on above:Performed By: #### ARACELIG #### [address] [place] [phone] MCH (RBC) [Entitic mass]25.5 akCwquyk84.2-33.5[facility] Comment on above:Performed By: #### ARACELIG #### [address] [place], [facility]83 MCHC (RBC) [Mass/Vol]30.4 g/fVZcnpxu94.4-34.8[facility] Comment on above:Performed By: #### ARACELIG #### [address] [place] [facility]83 MCV (RBC) [Entitic vol]83.9 bMZravdc72.6-102.9[facility] Comment on above:Performed By: #### LOVELY #### [address] [place] [facility]83 Monocytes (Bld) [#/Vol]1.19 10*3/uLNormal0.10-1.20[facility] HospitalComment on above:Performed By: #### LOVELY #### [address] [place], [facility]83 Monocytes/100 WBC (Bld)8 %Normal3-12[facility] HospitalComment on above:Performed By: #### LOVELY #### [address] [place] [address] Neutrophil (Seg)68 %Tbix50-03MdywcOhiohealth Marion General HospitalComment on above: Performed By: #### LOVELY #### [address] [place] [facility]83 NRBC Automated0.0 per 100 WBCNormal0.0[facility] HospitalComment on above:Performed By: #### LOVELY #### [address] [place] [address] Platelet mean volume (Bld) [Entitic vol]9.9 fLNormal8.1-13.5[facility] HospitalComment on above:Performed By: #### LOVELY #### [address] [place] [address] Platelets (Bld) [#/Vol]276 10*3/rQWvlmzv479-140Fzagg Tiffin HospitalComment on above:Performed By: #### BHCG #### [address] [place] [address] RBC (Bld) [#/Vol]4.11 10*6/uLNormal3.95-5.11[facility] Comment on above:Performed By: #### BHCG #### [address] [place] [address] WBC (Bld) [#/Vol]14.5 10*3/uLHigh3.5-11.3MKindred Healthcare Comment on above:Performed By: #### ARACELIG #### [address] [place] [address] Auto Diff PerformedNOT REPORTEDNormalOhiohealth Marion General HospitalComment on above:Performed By: #### ARACELIG #### [address] [place] [address] Platelets (Bld) [#/Vol]NOT REPORTEDNormalOhiohealth [facility] General Hospital Comment on above:Performed By: #### ARACELIG #### [address] [place] [address] RBC morphology finding Nom (Bld)NOT REPORTEDNormalMain Campus Medical Center HospitalComment on above:Performed By: #### BHCG #### [address] [place] [address] WBC MorphologyNOT REPORTEDNormOhioHealth Grove City Methodist HospitalComment on above:Performed By: #### BHCG #### [address] [place] [address] Comp Metabolic Profon 28-05-0852EMW [Catalytic activity/Vol]33 U/L High<32[facility] HospitalComment on above:Performed By: #### BHJaseG #### [address] [place] [address] (cont.)NormalOhiohealth Marion General HospitalComment on above:Result Comment: Average GFR for 30-39 years old: 107 mL/min/1.73sq m Chronic Kidney Disease: <60 mL/min/1.73sq m Kidney failure: <15 mL/min/1.73sq m eGFR calculated using average adult body mass. Additional eGFR calculator available at: http://www.[employer]/multiple_crcl_2012.htmPerformed By: #### ARACELIG #### [address] [place] [address] Albumin [Mass/Vol]3.3 g/dLLow3.5-5.2MKindred HealthcareComment on above:Performed By: #### LOVELY #### [address] [place], [facility]83 Albumin/Globulin [Mass ratio]1.1 {ratio}Normal1.0-2.5[facility] HospitalComment on above:Performed By: #### ARACELIG #### [address] [place] [address] Alkaline Vhqw055 U/ZDydr61-854LjlwqOhiohealth Marion General HospitalComment on above:Performed By: #### LOVELY #### [address] [place] [address] ALT [Catalytic activity/Vol]46 U/LHigh5-33[facility] Comment on above:Performed By: #### ARACELIG #### [address] [place] [address] Anion gap [Moles/Vol]13 mmol/LNormal9-17[facility] Comment on above:Performed By: #### ARACELIG #### [address] [place] [address] Bilirubin Ql (U)0.49 mg/dLNormal0.3-1.2MKindred HealthcareComment on above:Performed By: #### BHCG #### [address] [place] [address] BUN/CRE Pufqa53Zcuaep8-88Vgdtz Tiffin HospitalComment on above: Performed By: #### BHCG #### [address] [place], [facility]83 Calcium [Mass/Vol]9.5 mg/dLNormal8.6-10.4[facility] Comment on above:Performed By: #### BHCG #### [address] [place], [facility]83 Chloride [Moles/Vol]103 mmol/MNaepoy54-981EptgfOhiohealth [facility] General Hospital Comment on above:Performed By: #### BHCG #### [address] [place], [facility]83 CO2 [Moles/Vol]20 mmol/IZozbzj39-89NrrgaOhiohealth Marion General HospitalComment on above:Performed By: #### BHCG #### [address] [place] [address] Creatinine [Mass/Vol]0.57 mg/dLNormal0.50-0.90[facility] Comment on above:Performed By: #### BHCG #### [address] [place] [address] GFR, Amer>60Normal>60[facility] HospitalComment on above: Performed By: #### BHCG #### [address] [place] [address] GFR,non Amer>60Normal>60[facility] HospitalComment on above:Performed By: #### BHCG #### [address] [place] [address] Glucose [Mass/Vol]94 mg/hTPedhvq53-42TznfsKindred HealthcareComment on above:Performed By: #### BHCG #### [address] [place] [address] Potassium [Moles/Vol]4.0 mmol/LNormal3.7-5.3MKindred Healthcare Comment on above:Performed By: #### BHCG #### [address] [place] [address] Protein [Mass/Vol]6.2 g/dLLow6.4-8.3MKindred HealthcareComment on above:Performed By: #### BHCG #### [address] [place] [address] Sodium [Moles/Vol]136 mmol/LUvaxsa502-687JgqbgOhiohealth [facility] General Hospital Comment on above:Performed By: #### BHCG #### [address] [place] [address] Staging:NormalOhiohealth Marion General HospitalComment on above:Result Comment: Stage 1: Some kidney damage normal GFR Stage 2: Mild kidney damage GFR 60-89 Stage 3: Moderate kidney damage GFR 30-59 Stage 4: Severe kidney damage GFR 15-29 Stage 5: Severe kidney damage GFR <15 ESRD - chronic treatment by dialysis or transplantPerformed By: #### BHCG #### [address] [place] [address] Urea nitrogen [Mass/Vol]7 mg/dLNormal6-20[facility] Comment on above:Performed By: #### BHCG #### [address] [place], [place] [id number] Urinalysis, Routineon 85-93-6243Phbpcgqhomm Acid,Ur2+AbnormalNEG [facility] HospitalComment on above:Performed By: #### BHCG #### [address] [place] [address] Bilirubin, SemiQt,UrSMALLAbnormalNEGMercy West [place] HospitalComment on above:Performed By: #### BHJaseG #### [address] [place] [address] Color (U)YELLOWNormalYELMercy West [place] HospitalComment on above: Performed By: #### ROLFCG #### [address] [place] [address] Glucose Ql (U)NegativeNormalNEGMerCommunity Regional Medical Center HospitalComment on above:Performed By: #### BHCG #### [address] [place] [address] Hemoglobin, UrNegativeNormalNEGMerCommunity Regional Medical Center HospitalComment on above:Performed By: #### ARACELIG #### [address] [place] [address] Leukocyte esterase Test strip Ql (U)TRACEAbnormalNEGMerCommunity Regional Medical Center HospitalComment on above:Performed By: #### BHJaseG #### [address] [place] [address] Nitrite,UrNegativeNormalNEGMerCommunity Regional Medical Center HospitalComment on above: Performed By: #### BHCG #### [address] [place] [address] pH (U)5.5 [pH]Normal5.0-9.0MerCommunity Regional Medical Center HospitalComment on above: Performed By: #### BHCG #### [address] [place] [address] Protein Ql (U)TRACEAbnormalNEGMerCommunity Regional Medical Center HospitalComment on above:Performed By: #### ROLFCG #### [address] [place] [address] Specific gravity (U) [Rel density]1.015Pmtv3.010-1.020[facility] HospitalComment on above:Performed By: #### ARACELIG #### [address] [place] [address] TurbidityCLEARNormalCLEARMain Campus Medical Center HospitalComment on above: Performed By: #### ARACELIG #### [address] [place] [phone] Urobilinogen,UrNormalNormalNORMMain Campus Medical Center HospitalComment on above:Performed By: #### ARACELIG #### [address] [place] [phone] CommentNOT REPORTEDNormalOhiohealth Marion General HospitalComment on above: Performed By: #### ARACELIG #### [address] [place] [phone] Urinalysis,Microon 07-21-2018-----NormalOhiohealth [facility] General Hospital Comment on above:Performed By: #### ARACELIG #### [address] [place] [phone] Amorphous sediment LM Ql (Urine sed)1+AbnormalNONEMeMerit Health Woman's Hospital HospitalComment on above:Performed By: #### ARACELIG #### [address] [place] [phone] Bacteria LM.HPF (Urine sed) [#/Area]1+AbnormalNONMemorial Health SystemComment on above:Performed By: #### ARACELIG #### [address] [place] [phone] Epithelial cells LM.HPF (Urine sed) [#/Area]2 TO 5Tscjzj2-89DwyjsOhiohealth Marion General HospitalComment on above:Performed By: #### LOVELY #### [address] [place] [address] Mucus StrandsTRACEAbnormalNONEMey West [place] HospitalComment on above:Performed By: #### ARACELIG #### [address] [place] [phone] RBC (U) [#/Vol]0 TO 8Pqebba1-8Uazui [place] HospitalComment on above:Performed By: #### ARACELIG #### [address] [place] [address] WBC (U) [#/Vol]2 TO 7Tplaus9-7Xdksm [place] HospitalComment on above:Performed By: #### ARACELIG #### [address] [place] [address] Casts LM.LPF (Urine sed) [#/Area]NOT REPORTEDNormalMercy West [place] HospitalComment on above:Performed By: #### ARACELIG #### [address] [place] [address] Crystals LM Nom (Urine sed)NOT REPORTEDNormalNONEMercy West [place] HospitalComment on above:Performed By: #### ARACELIG #### [address] [place] [phone] Epithelial, RenalNOT CYNJCCXBHjcrwj1Yytvh [place] HospitalComment on above:Performed By: #### ARACELIG #### [address] [place] [address] Other ObservationsNOT REPORTEDNormalNREQMercy West [place] Hospital Comment on above:Performed By: #### ARACELIG #### [address] [place] [address] TrichomonasNOT REPORTEDNormalNONEMercy West [place] HospitalComment on above:Performed By: #### ARACELIG #### [address] [place] [address] Yeast LM Ql (Urine sed)NOT REPORTEDNoTriHealth Comment on above:Performed By: #### ARACELIG #### [address] [place] [address] Cult,Urineon 67-00-1936Tkdf,UrineSpecimen Description .CLEAN CATCH URINE Special Requests NOT REPORTED Culture NO SIGNIFICANT GROWTH Report Status FINAL 07/20/2018NormalOhiohealth Marion General HospitalComment on above: Performed By: #### ARACELIG #### [address] [place], [facility]83 APTTon [id number] Coag (Bld) [Time]27.0 vYlsbsu71.2-34.4[facility] HospitalComment on above:Performed By: #### ARACELIG #### [address] [place], [facility]83 CBC with Diffon [id number]. Basophil0.05 k/uLNormal0.00-0.20 [facility] HospitalComment on above:Performed By: #### ARACELIG #### [address] [place] [address] Abs.Imm.Granulocyte0.07 k/uLNormal0.00-0.30[facility] Comment on above:Performed By: #### ARACELIG #### [address] [place], [facility]83 Abs.Neutrophil (Seg)7.01 k/uLNormal1.50-8.10[facility] Comment on above:Performed By: #### ARACELIG #### [address] [place], [facility]83 Basophils/100 WBC (Bld)0 %Normal0-2MercGriffin HospitalComment on above:Performed By: #### BHCG #### [address] [place], [place] [address] Eosinophils (Bld) [#/Vol]0.28 10*3/uLNormal0.00-0.44[facility] HospitalComment on above:Performed By: #### ARACELIG #### [address] [place] [phone] Eosinophils/100 WBC (Bld)2 %Normal1-4[facility] HospitalComment on above:Performed By: #### ARACELIG #### [address] [place] [phone] Erythrocyte distribution width (RBC) [Ratio]15.8 %High11.8-14.4 [facility] HospitalComment on above:Performed By: #### ARACELIG #### [address] [place] [address] Hematocrit (Bld) [Volume fraction]34.1 %Low36.3-47.1MParkview Health Montpelier Hospital HospitalComment on above:Performed By: #### ARACELIG #### [address] [place], [facility]83 Hemoglobin (Bld) [Mass/Vol]10.4 g/dLLow11.9-15.1MKindred HealthcareComment on above:Performed By: #### ARACELIG #### [address] [place] [phone] Immature granulocytes (Bld) [#/Vol]1 %Vomx3OfhlfMain Campus Medical Center Hospital Comment on above:Performed By: #### ARACELIG #### [address] [place] [phone] Lymphocytes (Bld) [#/Vol]3.12 10*3/uLNormal1.10-3.70[facility] HospitalComment on above:Performed By: #### ARACELIG #### [address] [place] [address] Lymphocytes/100 WBC (Bld)27 %Omdsbw18-90PdgqgOhiohealth Marion General Hospital Comment on above:Performed By: #### ARACELIG #### [address] [place] [address] MCH (RBC) [Entitic mass]25.6 vaEybcjt34.2-33.5[facility] Comment on above:Performed By: #### ARACELIG #### [address] [place] [address] MCHC (RBC) [Mass/Vol]30.5 g/dWUrxddd27.4-34.8[facility] Comment on above:Performed By: #### ARACELIG #### [address] [place] [phone] MCV (RBC) [Entitic vol]84.0 zRMhnvil40.6-102.9[facility] Comment on above:Performed By: #### ARACELIG #### [address] [place] [address] Monocytes (Bld) [#/Vol]0.93 10*3/uLNormal0.10-1.20[facility] HospitalComment on above:Performed By: #### ARACELIG #### [address] [place] [address] Monocytes/100 WBC (Bld)8 %Normal3-12[facility] HospitalComment on above:Performed By: #### ARACELIG #### [address] [place] [address] Neutrophil (Seg)62 %Shztkk59-75UlxwoOhiohealth Marion General HospitalComment on above:Performed By: #### ARACELIG #### [address] [place] [address] NRBC Automated0.0 per 100 WBCNormal0.0[facility] HospitalComment on above:Performed By: #### ARACELIG #### [address] [place] [address] Platelet mean volume (Bld) [Entitic vol]9.8 fLNormal8.1-13.5[facility] HospitalComment on above:Performed By: #### ARACELIG #### [address] [place] [facility]83 Platelets (Bld) [#/Vol]277 10*3/qQQstyjk928-429YwhafOhiohealth Marion General HospitalComment on above:Performed By: #### ARACELIG #### [address] [place] [facility]83 RBC (Bld) [#/Vol]4.06 10*6/uLNormal3.95-5.11[facility] Comment on above:Performed By: #### ARACELIG #### [address] [place] [facility]83 WBC (Bld) [#/Vol]11.5 10*3/uLHigh3.5-11.3MKindred Healthcare Comment on above:Performed By: #### ARACELIG #### [address] [place] [address] Auto Diff PerformedNOT REPORTEDNormOhioHealth Grove City Methodist HospitalComment on above:Performed By: #### ARACELIG #### [address] [place] [address] Platelets (Bld) [#/Vol]NOT REPORTEDNoMarietta Osteopathic Clinic Comment on above:Performed By: #### ARACELIG #### [address] [place] [address] RBC morphology finding Nom (Bld)NOT REPORTEDNormThe Jewish Hospital HospitalComment on above:Performed By: #### BHJaseG #### [address] [place] [address] WBC MorphologyNOT REPORTEDNoMarietta Osteopathic ClinicComment on above:Performed By: #### BHJaseG #### [address] [place] [address] Comp Metabolic Profon 07-19-2018(cont.)[facility] Comment on above:Result Comment: Average GFR for 30-39 years old: 107 mL/min/1.73sq m Chronic Kidney Disease: <60 mL/min/1.73sq m Kidney failure: <15 mL/min/1.73sq m eGFR calculated using average adult body mass. Additional eGFR calculator available at: http://www.[employer]/multiple_crcl_2012.htmPerformed By: #### ARACELIG #### [address] [place] [address] Albumin [Mass/Vol]3.3 g/dLLow3.5-5.2MKindred HealthcareComment on above:Performed By: #### ARACELIG #### [address] [place] [address] Albumin/Globulin [Mass ratio]1.2 {ratio}Normal1.0-2.5[facility] HospitalComment on above:Performed By: #### BHJaseG #### [address] [place] [address] Alkaline Qbge445 U/NXmoe66-897GfgauOhiohealth Marion General HospitalComment on above:Performed By: #### BHJaseG #### [address] [place] [address] ALT [Catalytic activity/Vol]40 U/LHigh5-33[facility] Comment on above:Performed By: #### ARACELIG #### [address] [place] [address] Anion gap [Moles/Vol]11 mmol/LNormal9-17[facility] Comment on above:Performed By: #### BHCG #### [address] [place] [address] AST [Catalytic activity/Vol]32 U/LHigh<32[facility] Comment on above:Performed By: #### BHCG #### [address] [place] [address] Bilirubin Ql (U)0.48 mg/dLNormal0.3-1.2MKindred HealthcareComment on above:Performed By: #### BHCG #### [address] [place] [address] BUN/CRE Qtkev28Mbienl7-57Zlivu Tiffin HospitalComment on above: Performed By: #### BHCG #### [address] [place] [address] Calcium [Mass/Vol]9.4 mg/dLNormal8.6-10.4[facility] Comment on above:Performed By: #### BHCG #### [address] [place] [address] Chloride [Moles/Vol]103 mmol/CRbmyeq45-410GedigOhiohealth Marion General Hospital Comment on above:Performed By: #### BHCG #### [address] [place] [address] CO2 [Moles/Vol]22 mmol/WJvokrx56-86TlsllOhiohealth Marion General HospitalComment on above:Performed By: #### BHCG #### [address] [place] [address] Creatinine [Mass/Vol]0.66 mg/dLNormal0.50-0.90[facility] Comment on above:Performed By: #### BHCG #### [address] [place] [address] GFR, Amer>60Normal>60[facility] HospitalComment on above: Performed By: #### BHCG #### [address] [place] [address] GFR,non Amer>60Normal>60[facility] HospitalComment on above:Performed By: #### BHCG #### [address] [place] [address] Glucose [Mass/Vol]86 mg/mQBhcshn40-48QvfieKindred HealthcareComment on above:Performed By: #### BHCG #### [address] [place] [address] Potassium [Moles/Vol]4.3 mmol/LNormal3.7-5.3MKindred Healthcare Comment on above:Performed By: #### BHCG #### [address] [place] [facility]83 Protein [Mass/Vol]6.0 g/dLLow6.4-8.3MKindred HealthcareComment on above:Performed By: #### BHCG #### [address] [place] [facility]83 Sodium [Moles/Vol]136 mmol/MQpqvut918-269McirhOhiohealth Marion General Hospital Comment on above:Performed By: #### BHCG #### [address] [place] [address] Staging:NormalOhiohealth Marion General HospitalComment on above:Result Comment: Stage 1: Some kidney damage normal GFR Stage 2: Mild kidney damage GFR 60-89 Stage 3: Moderate kidney damage GFR 30-59 Stage 4: Severe kidney damage GFR 15-29 Stage 5: Severe kidney damage GFR <15 ESRD - chronic treatment by dialysis or transplantPerformed By: #### BHJaseG #### [address] [place] [address] Urea nitrogen [Mass/Vol]8 mg/dLNormal6-20[facility] Comment on above:Performed By: #### ARACELIG #### [address] [place] [address] Fibrinogenon 37-75-2928Mpgfmffawf833 mg/hWFvgy559-179MhzhgOhiohealth Marion General HospitalComment on above:Performed By: #### ARACELIG #### [address] [place] [address] PTon 43-97-3915BUY Coag (PPP) [Relative time]1.0 {INR}Normal0.9-1.2 [facility] HospitalComment on above:Performed By: #### ARACELIG #### [address] [place], [facility]83 PT Coag (PPP) [Time]10.0 sNormal9.7-12.2MKindred Healthcare Comment on above:Performed By: #### ARACELIG #### [address] [place], [facility]83 Protein,Tot,[place] Uron 37-11-6228Lxdxetfcqd [Mass/Vol]218.9 mg/dL High28.0-217.0[facility] HospitalComment on above:Performed By: #### BHJaseG #### [address] [place], [facility]83 TP/Cre Ratio0.14Iztdox5.00-0.20[facility] HospitalComment on above:Performed By: #### ARACELIG #### [address] [place], [facility]83 Tot Prot. Conc.23 mg/dLNormOhioHealth Grove City Methodist HospitalComment on above: Result Comment: No normal range established.Performed By: #### BHCG #### [address] [place] [address] us BIOPHYSICAL PROFILE WO NON STRESS TESTINGon 17-20-0192BQ BIOPHYSICAL PROFILE WO NON STRESS TESTINGEXAMINATION: BIOPHYSICAL [...] Signed by: Cesario Ku MD 07/19/18 Final resultNormalMain Campus Medical Center HospitalUric Acidon [id number] [Mass/Vol]5.8 mg/dLHigh2.4-5.7[facility] HospitalComment on above:Performed By: #### BHCG #### [address] [place] [address] Urinalysis, Routineon [id number] Acid,Ur1+AbnormalNEG [facility] HospitalComment on above:Performed By: #### BHCG #### [address] [place] [address] Bilirubin, SemiQt,UrSMALLAbnormalNEGMerCommunity Regional Medical Center HospitalComment on above:Performed By: #### BHCG #### [address] [place] [address] Color (U)YELLOWNormalYELMerCommunity Regional Medical Center HospitalComment on above: Performed By: #### BHCG #### [address] [place] [address] Glucose Ql (U)NegativeNormalNEGMain Campus Medical Center HospitalComment on above:Performed By: #### BHCG #### [address] [place] [address] Hemoglobin, UrNegativeNormalNEGMain Campus Medical Center HospitalComment on above:Performed By: #### BHCG #### [address] [place] [address] Leukocyte esterase Test strip Ql (U)LARGEAbnormalNEGMerCommunity Regional Medical Center HospitalComment on above:Performed By: #### BHCG #### [address] [place] [address] Nitrite,UrNegativeNormalNEGMain Campus Medical Center HospitalComment on above: Performed By: #### BHCG #### [address] [place] [address] pH (U)6.0 [pH]Normal5.0-9.0[facility] HospitalComment on above: Performed By: #### ARACELIG #### [address] [place] [address] Protein Ql (U)TRACEAbnormalNEGMain Campus Medical Center HospitalComment on above:Performed By: #### ARACELIG #### [address] [place] [phone] Specific gravity (U) [Rel density]1.938Uift2.010-1.020[facility] HospitalComment on above:Performed By: #### ARACELIG #### [address] [place] [phone] ([phone] TurbidityCLOUDYAbnormalCLEAROhiohealth Marion General HospitalComment on above: Performed By: #### ARACELIG #### [address] [place], [facility] Urobilinogen,UrNormalNormalNORMMain Campus Medical Center HospitalComment on above:Performed By: #### ARACELIG #### [address] [place], [place] [phone] ([phone] CommentNOT REPORTEDNormalOhiohealth Marion General HospitalComment on above: Performed By: #### ARACELIG #### [address] [place], [place] [phone] ([phone] Urinalysis,Microon 07-19-2018-----NormalOhiohealth Marion General Hospital Comment on above:Performed By: #### ARACELIG #### [address] [place] [address] Bacteria LM.HPF (Urine sed) [#/Area]3+AbnormalNONEMeThe Hospital of Central ConnecticutComment on above:Performed By: #### LOVELY #### [address] [place] [phone] Epithelial cells LM.HPF (Urine sed) [#/Area]10 TO 92Lnlcuc3-99Jofxo [place] HospitalComment on above:Performed By: #### ARACELIG #### [address] [place] [phone] RBC (U) [#/Vol]NoneNormal0-2[facility] HospitalComment on above: Performed By: #### ARACELIG #### [address] [place] [phone] WBC (U) [#/Vol]20 TO 64Rebwpl9-7Gfncj [facility] HospitalComment on above:Performed By: #### ARACELIG #### [address] [place] [phone] Amorphous sediment LM Ql (Urine sed)NOT REPORTEDNormalNONEMercy West [place] HospitalComment on above:Performed By: #### ARACELIG #### [address] [place] [phone] Casts LM.LPF (Urine sed) [#/Area]NOT REPORTEDNormalMercy West Cornwall HospitalComment on above:Performed By: #### ARACELIG #### [address] [place] [phone] Crystals LM Nom (Urine sed)NOT REPORTEDNormalNONEMercy West [facility] HospitalComment on above:Performed By: #### ARACELIG #### [address] [place] [phone] Epithelial, RenalNOT SWDBCYICYfectr5Zicih [facility] [place] HospitalComment on above:Performed By: #### ARACELIG #### [address] [place] [address] Mucus StrandsNOT REPORTEDNormalNONEMercy West [place] HospitalComment on above:Performed By: #### BHCG #### [address] [place] [address] Other ObservationsNOT REPORTEDSaint Francis Medical CenteralNREQOhiohealth [facility] General Hospital Comment on above:Performed By: #### ARACELIG #### [address] [place] [address] TrichomonasNOT REPORTEDNormalNONFirelands Regional Medical Center [facility] HospitalComment on above:Performed By: #### ARACELIG #### [address] [place] [address] Yeast LM Ql (Urine sed)NOT REPORTEDNoTriHealth Comment on above:Performed By: #### ARACELIG #### [address] [place] [address] Glucose Zeke. 3 hron Hr156 mg/oUXrdt57-768Bfugj [facility] HospitalComment on above:Performed By: #### ARACELIG #### [address] [place] [address] [phone] Hr168 mg/mPNnux35-743Rqnxr [facility] HospitalComment on above: Performed By: #### ARACELIG #### [address] [place] [address] [phone] Hr163 mg/xTIsvxtl37-716Jvzpk [facility] HospitalComment on above: Performed By: #### ARACELIG #### [address] [place] [address] Fasting87 mg/fGSuhrkn47-42Vgcvb [facility] HospitalComment on above: Performed By: #### ROLFCG #### [address] [place] [address] Glucose [Mass/Vol]100 gNormalMain Campus Medical Center HospitalComment on above: Performed By: #### ARACELIG #### [address] [place], [place] [phone] CBC with Diffon [id number]. Basophil0.06 k/uLNormal0.00-0.20 [facility] HospitalComment on above:Performed By: #### PROG #### [address] [address] Abs.Imm.Granulocyte0.09 k/uLNormal0.00-0.30[facility] Comment on above:Performed By: #### PROG #### [address] [address] Abs.Neutrophil (Seg)10.61 k/uLHigh1.50-8.10[facility] Comment on above:Performed By: #### PROG #### [address] [address] Basophils/100 WBC (Bld)0 %Normal0-2MParkview Health Montpelier Hospital HospitalComment on above:Performed By: #### PROG #### [address] [address] Eosinophils (Bld) [#/Vol]0.16 10*3/uLNormal0.00-0.44[facility] HospitalComment on above:Performed By: #### PROG #### [address] [address] Eosinophils/100 WBC (Bld)1 %Normal1-4[facility] HospitalComment on above:Performed By: #### PROG #### [address] [address] Erythrocyte distribution width (RBC) [Ratio]14.8 %High11.8-14.4 [facility] HospitalComment on above:Performed By: #### PROG #### [address] [address] Hematocrit (Bld) [Volume fraction]36.1 %Low36.3-47.1MKindred HealthcareComment on above:Performed By: #### PROG #### [facility] [address] [place] [address] Hemoglobin (Bld) [Mass/Vol]11.6 g/dLLow11.9-15.1MKindred HealthcareComment on above:Performed By: #### PROG #### [facility] [address] [place] [address] Immature granulocytes (Bld) [#/Vol]1 %Djna8PbaowOhiohealth Marion General Hospital Comment on above:Performed By: #### PROG #### [facility] [address] [place] [address] 69401 Lymphocytes (Bld) [#/Vol]3.44 10*3/uLNormal1.10-3.70[facility] HospitalComment on above:Performed By: #### PROG #### [facility] [address] [place] [address]277 Lymphocytes/100 WBC (Bld)23 %Gdc43-75GpdqeOhiohealth Marion General HospitalComment on above:Performed By: #### PROG #### [facility] [address] [place] [address] 69359 MCH (RBC) [Entitic mass]27.0 evYizykl75.2-33.5[facility] Comment on above:Performed By: #### PROG #### [facility] [address] [place] [address] 34915 MCHC (RBC) [Mass/Vol]32.1 g/kRCwicoo53.4-34.8[facility] Comment on above:Performed By: #### PROG #### [facility] [address] [place] [address] 30748 MCV (RBC) [Entitic vol]84.1 lHNzbbyh54.6-102.9[facility] Comment on above:Performed By: #### PROG #### [facility] [address] [place] [address] 110[address] Monocytes (Bld) [#/Vol]0.85 10*3/uLNormal0.10-1.20[facility] HospitalComment on above:Performed By: #### PROG #### [facility] [address] [place] [address] Monocytes/100 WBC (Bld)6 %Normal3-12[facility] HospitalComment on above:Performed By: #### PROG #### [facility] [address] [place] [address] 07180 Neutrophil (Seg)69 %Gepa21-30Fflgr [facility] HospitalComment on above: Performed By: #### PROG #### [facility] [address] [place] [address] 13281 NRBC Automated0.0 per 100 WBCNormal0.0[facility] HospitalComment on above:Performed By: #### PROG #### [facility] [address] [place] [address] 24131 Platelet mean volume (Bld) [Entitic vol]10.0 fLNormal8.1-13.5[facility] HospitalComment on above:Performed By: #### PROG #### [facility] [address] [place] [address] 38625 Platelets (Bld) [#/Vol]333 10*3/aQPkbqiq913-515Zsfor [facility] HospitalComment on above:Performed By: #### PROG #### [facility] [address] [place] [address] 23209 RBC (Bld) [#/Vol]4.29 10*6/uLNormal3.95-5.11[facility] Comment on above:Performed By: #### PROG #### [facility] [address] [place] [address] 19980 WBC (Bld) [#/Vol]15.2 10*3/uLHigh3.5-11.3MKindred Healthcare Comment on above:Performed By: #### PROG #### [facility] [address] [place] [address]28 Auto Diff PerformedNOT REPORTEDNormOhioHealth Grove City Methodist HospitalComment on above:Performed By: #### PROG #### [facility] [address] [place] [address] 36022 Platelets (Bld) [#/Vol]NOT REPORTEDNoMarietta Osteopathic Clinic Comment on above:Performed By: #### PROG #### [facility] [address] [place] [address] 84180 RBC morphology finding Nom (Bld)NOT REPORTEDNoMarietta Osteopathic ClinicComment on above:Performed By: #### PROG #### [facility] [address] [place] [address] 67998 WBC MorphologyNOT REPORTEDNoMarietta Osteopathic ClinicComment on above:Performed By: #### PROG #### [facility] [address] [place] [address] 76013 Comp Metabolic Profon 06-12-2018(cont.)[facility] Comment on above:Result Comment: Average GFR for 30-39 years old: 107 mL/min/1.73sq m Chronic Kidney Disease: <60 mL/min/1.73sq m Kidney failure: <15 mL/min/1.73sq m eGFR calculated using average adult body mass. Additional eGFR calculator available at: http://www.[employer]com/multiple_crcl_2012.htmPerformed By: #### PROG #### [facility] [address] [place] [address] 13165 Albumin [Mass/Vol]3.5 g/dLNormal3.5-5.2MParkview Health Montpelier Hospital HospitalComment on above:Performed By: #### PROG #### [employer] [address] [place] [address] 11991 Albumin/Globulin [Mass ratio]1.1 {ratio}Normal1.0-2.5[facility] HospitalComment on above:Performed By: #### PROG #### [employer] [address] [place] [address] 63014 Alkaline Phos99 U/NLlkzpu02-028RawndOhiohealth Marion General HospitalComment on above:Performed By: #### PROG #### [employer] [address] [place] [address] 26975 ALT [Catalytic activity/Vol]22 U/LNormal5-33[facility] Comment on above:Performed By: #### PROG #### [facility] [address] [place] [address] 53575 Anion gap [Moles/Vol]12 mmol/LNormal9-17[facility] Comment on above:Performed By: #### PROG #### [employer] [address] [place] [address] 87315 AST [Catalytic activity/Vol]18 U/LNormal<32[facility] Comment on above:Performed By: #### PROG #### [employer] [address] [place] [address] 24602 Bilirubin Ql (U)0.39 mg/dLNormal0.3-1.2MKindred HealthcareComment on above:Performed By: #### PROG #### [employer] [address] [place] [address] 10410 BUN/CRE Mplen49Buzdnn1-30Jodtg [facility] HospitalComment on above: Performed By: #### PROG #### [employer] [address] [place] [address]60 Calcium [Mass/Vol]10.1 mg/dLNormal8.6-10.4[facility] Comment on above:Performed By: #### PROG #### [facility] [address] [place] [address] 53877 Chloride [Moles/Vol]102 mmol/VGnwdgj92-851JqkyfOhiohealth Marion General Hospital Comment on above:Performed By: #### PROG #### [facility] [address] [place] [address] 62275 CO2 [Moles/Vol]20 mmol/GSzzsii20-52OqygeOhiohealth Marion General HospitalComment on above:Performed By: #### PROG #### [facility] [address] [place] [address]87[address] Creatinine [Mass/Vol]0.56 mg/dLNormal0.50-0.90[facility] Comment on above:Performed By: #### PROG #### [facility] [address] [place] [address] 49476 GFR, Amer>60Normal>60[facility] HospitalComment on above: Performed By: #### PROG #### [facility] [address] [place] [address] 45435 GFR,non Amer>60Normal>60[facility] HospitalComment on above:Performed By: #### PROG #### [facility] [address] [place] [address] 76012 Glucose [Mass/Vol]78 mg/hXSdikjv37-05LmzrcKindred HealthcareComment on above:Performed By: #### PROG #### [facility] [address] [place] [address] 10253 Potassium [Moles/Vol]4.2 mmol/LNormal3.7-5.3MKindred Healthcare Comment on above:Performed By: #### PROG #### [facility] [address] [place] [address] 80618 Protein [Mass/Vol]6.6 g/dLNormal6.4-8.3MParkview Health Montpelier Hospital HospitalComment on above:Performed By: #### PROG #### [employer] [address] [place], [place] [phone] Sodium [Moles/Vol]134 mmol/ETvb537-586IaeesOhiohealth Marion General HospitalComment on above:Performed By: #### PROG #### [employer] [address] [place], [place] [id number] Staging:NormalOhiohealth Marion General HospitalComment on above:Result Comment: Stage 1: Some kidney damage normal GFR Stage 2: Mild kidney damage GFR 60-89 Stage 3: Moderate kidney damage GFR 30-59 Stage 4: Severe kidney damage GFR 15-29 Stage 5: Severe kidney damage GFR <15 ESRD - chronic treatment by dialysis or transplantPerformed By: #### PROG #### [employer] [address] [place] [address] Urea nitrogen [Mass/Vol]7 mg/dLNormal6-20[facility] Comment on above:Performed By: #### PROG #### [employer] [address] [place] [address] [id number] US OB 14 PLUS WEEKS SINGLE OR FIRST GESTATIONon [id number] OB 14 PLUS WEEKS SINGLE OR FIRST [...] Denton MD 06/12/18 Edited Result - FINALNormalMercy West Cornwall HospitalUS OB GREATER THAN 14 WEEKS ADDITIONAL FETUSon [id number] OB GREATER THAN 14 WEEKS ADDITIONAL FETUS [...] by: Keaton Denton MD 06/12/18 Final resultNormalMercy Natchaug HospitalUS OB TRANSVAGINALon [id number] OB TRANSVAGINALEXAMINATION: TRANSABDOMINAL SECOND/THIRD TRIMESTER OBSTETRIC PELVIC [...] Signed by: Keaton Denton MD 06/12/18 Final resultNormalMerCommunity Regional Medical Center HospitalUrinalysis w/ Microon 06-12-2018----- NormalMercy West Cornwall HospitalComment on above:Performed By: #### PROG #### [employer] [address] [place], [place] [id number] Acetoacetic Acid,Ur1+AbnormalNEGMercy West Cornwall HospitalComment on above:Performed By: #### PROG #### [employer] [address] [place], [place] [id number] Amorphous sediment LM Ql (Urine sed)4+AbnormalNONEMercy West Cornwall HospitalComment on above:Performed By: #### PROG #### [facility] [address] [place] [address]39 Bacteria LM.HPF (Urine sed) [#/Area]1+AbnormalNONEMeMerit Health Woman's Hospital HospitalComment on above:Performed By: #### PROG #### [facility] [address] [place] [address] 80231 Bilirubin, SemiQt,UrSMALLAbnormalNEGMercy West Cornwall HospitalComment on above:Performed By: #### PROG #### [facility] [address] [place] [address] 13271 Color (U)YELLOWNormalYELMercy West Cornwall HospitalComment on above: Performed By: #### PROG #### [facility] [address] [place] [address] 08296 Epithelial cells LM.HPF (Urine sed) [#/Area]0 TO 4Fkujfm5-71Bwhex [facility] [place] HospitalComment on above:Performed By: #### PROG #### [facility] [address] [place] [address] 14362 Glucose Ql (U)NegativeNormalNEGMercy West [facility] HospitalComment on above:Performed By: #### PROG #### [facility] [address] [place] [address] 86020 Hemoglobin, UrNegativeNormalNEGMercy [facility] HospitalComment on above:Performed By: #### PROG #### [facility] [address] [place] [address] 34784 Leukocyte esterase Test strip Ql (U)SMALLAbnormalNEGMercy West [facility] HospitalComment on above:Performed By: #### PROG #### [facility] [address] [place] [address] 76582 Nitrite,UrNegativeNormalNEGMercy West [facility] HospitalComment on above: Performed By: #### PROG #### [facility] [address] [place] [address] 63682 pH (U)5.5 [pH]Normal5.0-9.0[facility] HospitalComment on above: Performed By: #### PROG #### [address] [address] Protein Ql (U)TRACEAbnormalNEGMercy West Cornwall HospitalComment on above:Performed By: #### PROG #### [facility] [address] [place] [address] 78522 RBC (U) [#/Vol]0 TO 0Zajjjl4-4Icywm [facility] [place] HospitalComment on above:Performed By: #### PROG #### [facility] [address] [place] [address] 26285 Specific gravity (U) [Rel density]>1.307Ippb2.010-1.020[facility] HospitalComment on above:Performed By: #### PROG #### [address] [address] TurbidityCLOUDYAbnormalCLEARMercy West Cornwall HospitalComment on above: Performed By: #### PROG #### [address] [address] Urobilinogen,UrNormalNormalNORMMercy West Cornwall HospitalComment on above:Performed By: #### PROG #### [facility] [address] [place] [address] 44182 WBC (U) [#/Vol]2 TO 7Kpcbuc8-0Gkvgw [facility] [place] HospitalComment on above:Performed By: #### PROG #### [facility] [address] [place] [address] 04776 Casts LM.LPF (Urine sed) [#/Area]NOT REPORTEDNormalMercy West Cornwall HospitalComment on above:Performed By: #### PROG #### [employer] [facility] [address] [place] [address]76[address] CommentNOT REPORTEDNormalMercy West Cornwall HospitalComment on above: Performed By: #### PROG #### [facility] [address] [place] [address] 29631 Crystals LM Nom (Urine sed)NOT REPORTEDNormalNONEMercy West Cornwall HospitalComment on above:Performed By: #### PROG #### [employer] [address] [place] [address] 73278 Epithelial, RenalNOT MCJIXJIFZxfpxu9Kbjft [facility] [place] HospitalComment on above:Performed By: #### PROG #### [employer] [address] [place] [address] 44367 Mucus StrandsNOT REPORTEDNormalNONEMercy West Cornwall HospitalComment on above:Performed By: #### PROG #### [facility] [address] [place] [address] 08072 Other ObservationsNOT REPORTEDNormalNREQMercy [facility] Hospital Comment on above:Performed By: #### PROG #### [facility] [address] [place] [address] 36431 TrichomonasNOT REPORTEDNormalNONEMercy West [facility] HospitalComment on above:Performed By: #### PROG #### [facility] [address] [place] [address] 55112 Yeast LM Ql (Urine sed)NOT REPORTEDNormalNONEMercy [facility] Comment on above:Performed By: #### PROG #### [facility] [address] [place] [address] 85746 US OB 14 PLUS WEEKS SINGLE OR FIRST GESTATIONon [id number] OB 14 PLUS WEEKS SINGLE OR FIRST [...] by: Quyen Walker MD 05/18/18 Final resultNormalMercy Natchaug HospitalUS OB GREATER THAN 14 WEEKS ADDITIONAL FETUSon [id number] OB GREATER THAN 14 WEEKS ADDITIONAL FETUSEXAMINATION: [...] by: Quyen Walker MD 05/18/18 Final resultNormalMercy [facility] Hospital OB TRANSVAGINALon [id number] OB TRANSVAGINALEXAMINATION: TRANSABDOMINAL SECOND/THIRD TRIMESTER OBSTETRIC PELVIC [...] by: Quyen Walker MD 05/18/18 Final resultNormalMercy West Cornwall HospitalUrinalysis, Routineon 05-18-2018 Acetoacetic Acid,UrNegativeNormalNEGMercy West Cornwall HospitalComment on above: Performed By: #### PROG #### [employer] [address] [place] [address] 80230 Bilirubin, SemiQt,UrNegativeNormalNEGMercy West [facility] HospitalComment on above:Performed By: #### PROG #### [employer] [address] [place] [address] 12400 Color (U)YELLOWNormalYELMercy West Cornwall HospitalComment on above: Performed By: #### PROG #### [employer] [address] [place] [address] 93251 Glucose Ql (U)NegativeNormalNEGMercy West [facility] HospitalComment on above:Performed By: #### PROG #### [employer] [address] [place] [address] 31766 Hemoglobin, Ur3+AbnormalNEGMercy West Cornwall HospitalComment on above: Performed By: #### PROG #### [facility] [address] [place] [address] 83331 Leukocyte esterase Test strip Ql (U)LARGEAbnormalNEGMercy West Cornwall HospitalComment on above:Performed By: #### PROG #### [facility] [address] [place] [address] 03037 Nitrite,UrNegativeNormalNEGMercy West [facility] HospitalComment on above: Performed By: #### PROG #### [facility] [address] [place] [address] 94888 pH (U)6.0 [pH]Normal5.0-9.0MerCommunity Regional Medical Center HospitalComment on above: Performed By: #### PROG #### [facility] [address] [place] [address] 20127 Protein Ql (U)NegativeNormalNEGMerCommunity Regional Medical Center HospitalComment on above:Performed By: #### PROG #### [facility] [address] [place] [address] 78788 Specific gravity (U) [Rel density]1.459Urhy7.010-1.020MerCommunity Regional Medical Center HospitalComment on above:Performed By: #### PROG #### [facility] [address] [place] [address] 95461 TurbidityCLOUDYAbnormalCLEARMerCommunity Regional Medical Center HospitalComment on above: Performed By: #### PROG #### [facility] [address] [place] [address] 32526 Urobilinogen,UrNormalNormalNORMMercy West Cornwall HospitalComment on above:Performed By: #### PROG #### [facility] [address] [place] [address] 85488 CommentNOT REPORTEDNormalMercy West Cornwall HospitalComment on above: Performed By: #### PROG #### [facility] [address] [place] [address] 99471 Urinalysis,Microon 05-18-2018-----NormalMercy [facility] Hospital Comment on above:Performed By: #### PROG #### [facility] [address] [place] [address] 67418 Bacteria LM.HPF (Urine sed) [#/Area]3+AbnormalNONEMeMerit Health Woman's Hospital HospitalComment on above:Performed By: #### PROG #### [facility] [address] [place] [address] 66972 Epithelial cells LM.HPF (Urine sed) [#/Area]50 TO 293Itjovq0-11 [facility] HospitalComment on above:Performed By: #### PROG #### [facility] [address] [place] [address] 18449 RBC (U) [#/Vol]5 TO 92Vvjdyy8-6Giwrw [facility] [place] HospitalComment on above:Performed By: #### PROG #### [facility] [address] [place] [address] 46079 WBC (U) [#/Vol]20 TO 88Zjseau5-6Lccif [facility] HospitalComment on above:Performed By: #### PROG #### [facility] [address] [place] [address] 957[address] Amorphous sediment LM Ql (Urine sed)NOT REPORTEDNormalNONEMeMerit Health Woman's Hospital HospitalComment on above:Performed By: #### PROG #### [facility] CenterHa[facility] [address] [place] [address] 43776 Casts LM.LPF (Urine sed) [#/Area]NOT REPORTEDNormalMercy West Cornwall HospitalComment on above:Performed By: #### PROG #### [facility] CenterHa[facility] [address] [place] [address] 03068 Crystals LM Nom (Urine sed)NOT REPORTEDNormalNONEMeMerit Health Woman's Hospital HospitalComment on above:Performed By: #### PROG #### [employer] [address] [place] [address] 36802 Epithelial, RenalNOT HWQAVBCNBjxqvi3RlpeqOhiohealth Marion General HospitalComment on above:Performed By: #### PROG #### [facility] [address] [place] [address] 68443 Mucus StrandsNOT REPORTEDSaint Francis Medical CenteralNONEMeThe Hospital of Central ConnecticutComment on above:Performed By: #### PROG #### [address] [address] Other ObservationsNOT REPORTEDrmalNREQOhiohealth Marion General Hospital Comment on above:Performed By: #### PROG #### [address] [address] TrichomonasNOT REPORTEDNormalNONEMeThe Hospital of Central ConnecticutComment on above:Performed By: #### PROG #### [address] [address] Yeast LM Ql (Urine sed)NOT REPORTEDPeoples Hospital Comment on above:Performed By: #### PROG #### [address] [address] CBC with Diffon 30-15-9765Lbz. Basophil0.06 k/uLNormal0.00-0.20 [facility] HospitalComment on above:Performed By: #### E2 #### [address] [address] Abs.Imm.Granulocyte0.18 k/uLNormal0.00-0.30[facility] Comment on above:Performed By: #### E2 #### [address] [address] Abs.Neutrophil (Seg)15.05 k/uLHigh1.50-8.10[facility] Comment on above:Performed By: #### E2 #### [address] [address] Basophils/100 WBC (Bld)0 %Normal0-2MParkview Health Montpelier Hospital HospitalComment on above:Performed By: #### E2 #### [address] [address] Eosinophils (Bld) [#/Vol]0.32 10*3/uLNormal0.00-0.44[facility] HospitalComment on above:Performed By: #### E2 #### [address] [address] Eosinophils/100 WBC (Bld)2 %Normal1-4[facility] HospitalComment on above:Performed By: #### E2 #### [address] [address] Erythrocyte distribution width (RBC) [Ratio]14.6 %High11.8-14.4 [facility] HospitalComment on above:Performed By: #### E2 #### [address] [address] Hematocrit (Bld) [Volume fraction]38.3 %Wicvjg28.3-47.1MParkview Health Montpelier Hospital HospitalComment on above:Performed By: #### E2 #### [address] [address] Hemoglobin (Bld) [Mass/Vol]12.5 g/gHYymmox50.9-15.1M[facility] lodi hospitaly West Cornwall HospitalComment on above:Performed By: #### E2 #### [address] [address] Immature granulocytes (Bld) [#/Vol]1 %Vbrt5KejgzMain Campus Medical Center Hospital Comment on above:Performed By: #### E2 #### [address] [address] Lymphocytes (Bld) [#/Vol]4.12 10*3/uLHigh1.10-3.70[facility] HospitalComment on above:Performed By: #### E2 #### [facility] [address] [place] [address] 37852 Lymphocytes/100 WBC (Bld)20 %Wlo40-35LqzluOhiohealth Marion General HospitalComment on above:Performed By: #### E2 #### [facility] [address] [place] [address] 08697 MCH (RBC) [Entitic mass]28.2 ciZltjyn29.2-33.5[facility] Comment on above:Performed By: #### E2 #### [facility] [address] [place] [address] 44349 MCHC (RBC) [Mass/Vol]32.6 g/uNYazgdo73.4-34.8[facility] Comment on above:Performed By: #### E2 #### [facility] [address] [place] [address] 34453 MCV (RBC) [Entitic vol]86.3 sFGbckio05.6-102.9[facility] Comment on above:Performed By: #### E2 #### [facility] [address] [place] [address] 81879 Monocytes (Bld) [#/Vol]0.91 10*3/uLNormal0.10-1.20[facility] HospitalComment on above:Performed By: #### E2 #### [facility] [address] [place] [address] 78330 Monocytes/100 WBC (Bld)4 %Normal3-12[facility] HospitalComment on above:Performed By: #### E2 #### [facility] [address] [place] [address] 13434 Neutrophil (Seg)73 %Gakn92-69Dilbe Tiffin HospitalComment on above: Performed By: #### E2 #### [facility] [address] [place] [address] 17097 NRBC Automated0.0 per 100 WBCNormal0.0[facility] HospitalComment on above:Performed By: #### E2 #### [facility] CenterHa[facility] [address] [place] [address] 64917 Platelet mean volume (Bld) [Entitic vol]9.7 fLNormal8.1-13.5[facility] HospitalComment on above:Performed By: #### E2 #### [facility] [address] [place] [address] 35252 Platelets (Bld) [#/Vol]310 10*3/tNJxcljt426-359ClsawOhiohealth Marion General HospitalComment on above:Performed By: #### E2 #### [facility] [address] [place] [address] 35016 RBC (Bld) [#/Vol]4.44 10*6/uLNormal3.95-5.11[facility] Comment on above:Performed By: #### E2 #### [facility] [address] [place] [address] 92971 WBC (Bld) [#/Vol]20.6 10*3/uLHigh3.5-11.3MKindred Healthcare Comment on above:Performed By: #### E2 #### [facility] CenterHa[facility] [address] [place] [address] 86515 Auto Diff PerformedNOT REPORTEDNormalMain Campus Medical Center HospitalComment on above:Performed By: #### E2 #### [facility] CenterHa[facility] [address] [place] [address] 81447 Platelets (Bld) [#/Vol]NOT REPORTEDNormOhioHealth [facility] Comment on above:Performed By: #### E2 #### [facility] CenterHa[facility] [address] [place] [address] 14710 RBC morphology finding Nom (Bld)NOT REPORTEDNoMarietta Osteopathic ClinicComment on above:Performed By: #### E2 #### [employer] [address] [place] [address] 79342 WBC MorphologyNOT REPORTEDNormalMain Campus Medical Center HospitalComment on above:Performed By: #### E2 #### [employer] [address] [place] [address] 27876 Comp Metabolic Profon 80-92-4287Vglgmhy [Mass/Vol]3.7 g/dLNormal 3.5-5.2MParkview Health Montpelier Hospital HospitalComment on above:Performed By: #### E2 #### [employer] [address] [place] [address] 68047 Albumin/Globulin [Mass ratio]1.3 {ratio}Normal1.0-2.5[facility] HospitalComment on above:Performed By: #### E2 #### [employer] [address] [place] [address] 67202 Alkaline Phos61 U/ZZnpjzr75-744EhlbrOhiohealth Marion General HospitalComment on above:Performed By: #### E2 #### [employer] [address] [place] [address] 11845 ALT [Catalytic activity/Vol]28 U/LNormal5-33[facility] Comment on above:Performed By: #### E2 #### [employer] [address] [place] [address] 76795 Anion gap [Moles/Vol]15 mmol/LNormal9-17[facility] Comment on above:Performed By: #### E2 #### [employer] [address] [place] [address] 02140 AST [Catalytic activity/Vol]17 U/LNormal<32[facility] Comment on above:Performed By: #### E2 #### [employer] [address] [place] [address] 11394 Bilirubin Ql (U)0.27 mg/dLLow0.3-1.2MParkview Health Montpelier Hospital HospitalComment on above:Performed By: #### E2 #### [facility] CenterHa[facility] [address] [place] [address] 85016 BUN/CRE Bvqhj85Mgcrvk0-89Whncj Tiffin HospitalComment on above: Performed By: #### E2 #### [facility] CenterHa[facility] [address] [place] [address] 73421 Calcium [Mass/Vol]9.3 mg/dLNormal8.6-10.4[facility] Comment on above:Performed By: #### E2 #### [facility] CenterHa[facility] [address] [place] [address] 46256 Chloride [Moles/Vol]102 mmol/KTwsznk76-427BdschOhiohealth Marion General Hospital Comment on above:Performed By: #### E2 #### [facility] [address] [place] [address] 72529 CO2 [Moles/Vol]20 mmol/JMqcydx90-51TjkitOhiohealth Marion General HospitalComment on above:Performed By: #### E2 #### [facility] [address] [place] [address] 77651 Creatinine [Mass/Vol]0.65 mg/dLNormal0.50-0.90[facility] Comment on above:Performed By: #### E2 #### [facility] [address] [place] [address] 52006 GFR, Amer>60Normal>60[facility] HospitalComment on above: Performed By: #### E2 #### [facility] CenterHa[facility] [address] [place] [address] 65716 GFR,non Amer>60Normal>60[facility] HospitalComment on above:Performed By: #### E2 #### [facility] [address] [place] [address] 87054 Glucose [Mass/Vol]108 mg/sOVupn92-05Uqqbd Tiffin HospitalComment on above:Performed By: #### E2 #### [facility] [address] [place] [address] 95598 Potassium [Moles/Vol]3.6 mmol/LLow3.7-5.3MKindred Healthcare Comment on above:Performed By: #### E2 #### [employer] [facility] [place] [address] Protein [Mass/Vol]6.5 g/dLNormal6.4-8.3MKindred HealthcareComment on above:Performed By: #### E2 #### [employer] [facility] [place] [address] Sodium [Moles/Vol]137 mmol/NMofolc700-074VzrxyOhiohealth Marion General Hospital Comment on above:Performed By: #### E2 #### [employer] [address] [place] [address] [id number] Urea nitrogen [Mass/Vol]11 mg/dLNormal6-20[facility] Comment on above:Performed By: #### E2 #### [employer] [address] [place] [address] 68972 (cont.)[facility] HospitalComment on above:Result Comment: Average GFR for 30-39 years old: 107 mL/min/1.73sq m Chronic Kidney Disease: <60 mL/min/1.73sq m Kidney failure: <15 mL/min/1.73sq m eGFR calculated using average adult body mass. Additional eGFR calculator available at: http://www.[employer]com/multiple_crcl_2012.htmPerformed By: #### E2 #### [employer] [facility] [place] [address] Staging:[facility] HospitalComment on above:Result Comment: Stage 1: Some kidney damage normal GFR Stage 2: Mild kidney damage GFR 60-89 Stage 3: Moderate kidney damage GFR 30-59 Stage 4: Severe kidney damage GFR 15-29 Stage 5: Severe kidney damage GFR <15 ESRD - chronic treatment by dialysis or transplantPerformed By: #### E2 #### [address] [address] Troponinon 59-79-2279Wctgwxza I.cardiac [Mass/Vol]ng/mLNormal<0.03 [facility] HospitalComment on above:Result Comment: Troponin T results cannot be compared to Troponin-I results.Performed By: #### E2 #### [address] [address] Troponin I.cardiac [Mass/Vol]NormalMerCommunity Regional Medical Center HospitalComment on above:Result Comment: Reference Range: <0.03 [...] information for diagnosis.Performed By: #### E2 #### [address] [address] Troponin I.cardiac [Mass/Vol]NOT REPORTEDNormal0-14MerCommunity Regional Medical Center HospitalComment on above:Performed By: #### E2 #### [facility] [address] [place] [address] 60215 Urinalysis, Routineon 24-33-9467Fkagyndxnto Acid,UrTRACEAbnormalNEG [facility] HospitalComment on above:Performed By: #### E2 #### [facility] [address] [place] [address] 36246 Bilirubin, SemiQt,UrNegativeNormalNEGMerCommunity Regional Medical Center HospitalComment on above:Performed By: #### E2 #### [facility] [address] [place] [address] 86233 Color (U)YELLOWNormalYELMerCommunity Regional Medical Center HospitalComment on above: Performed By: #### E2 #### [address] [address] Glucose Ql (U)NegativeNormalNEGMercy West Cornwall HospitalComment on above:Performed By: #### E2 #### [facility] [address] [place] [address] 95793 Hemoglobin, UrNegativeNormalNEGMercy West Cornwall HospitalComment on above:Performed By: #### E2 #### [facility] [address] [place] [address] 99487 Leukocyte esterase Test strip Ql (U)SMALLAbnormalNEGMercy West Cornwall HospitalComment on above:Performed By: #### E2 #### [facility] [address] [place] [address] 55529 Nitrite,UrNegativeNormalNEGMercy West Cornwall HospitalComment on above: Performed By: #### E2 #### [facility] [address] [place] [address] 29571 pH (U)6.0 [pH]Normal5.0-9.0[facility] HospitalComment on above: Performed By: #### E2 #### [facility] [address] [place] [address] 45945 Protein Ql (U)NegativeNormalNEGMerCommunity Regional Medical Center HospitalComment on above:Performed By: #### E2 #### [facility] [address] [place] [address] 69813 Specific gravity (U) [Rel density]>1.397Hoej6.010-1.020[facility] HospitalComment on above:Performed By: #### E2 #### [facility] [address] [place] [address] 61710 TurbidityCLEARNormalCLEARMerCommunity Regional Medical Center HospitalComment on above: Performed By: #### E2 #### [facility] [address] [place] [address] 19219 Urobilinogen,UrNormalNormalNORMMerCommunity Regional Medical Center HospitalComment on above:Performed By: #### E2 #### [facility] [address] [place] [address] 68439 CommentNOT REPORTEDNormalMercy West Cornwall HospitalComment on above: Performed By: #### E2 #### [facility] [address] [place] [address] 25274 Urinalysis,Microon 04-07-2018-----NormalMercy West [facility] Hospital Comment on above:Performed By: #### PROG #### [facility] [address] [place] [address] 49207 Epithelial cells LM.HPF (Urine sed) [#/Area]NoneNormal0-25[facility] HospitalComment on above:Performed By: #### PROG #### [facility] [address] [place] [address] 99035 RBC (U) [#/Vol]NoneNormal0-2[facility] HospitalComment on above: Performed By: #### PROG #### [facility] [address] [place] [address] 60677 WBC (U) [#/Vol]0 TO 9Sfdwdg2-7Xytai [facility] HospitalComment on above:Performed By: #### PROG #### [facility] [address] [place] [address] 36702 Amorphous sediment LM Ql (Urine sed)NOT REPORTEDNormalNONEMercy West Cornwall HospitalComment on above:Performed By: #### PROG #### [facility] [address] [place] [address] 25870 Bacteria LM.HPF (Urine sed) [#/Area]NOT REPORTEDNormalNONEMercy West Cornwall HospitalComment on above:Performed By: #### PROG #### [facility] [address] [place] [address] 52110 Casts LM.LPF (Urine sed) [#/Area]NOT REPORTEDNormalMercy West Cornwall HospitalComment on above:Performed By: #### PROG #### [employer] [address] [place] [address] 58778 Crystals LM Nom (Urine sed)NOT REPORTEDNormalNONEMercy West Cornwall HospitalComment on above:Performed By: #### PROG #### [employer] [address] [place] [address] 48156 Epithelial, RenalNOT JBHWVREPRlechh7Ivdsd [facility] HospitalComment on above:Performed By: #### PROG #### [employer] [address] [place] [address] 70430 Mucus StrandsNOT REPORTEDNormalNONEMercy West Cornwall HospitalComment on above:Performed By: #### PROG #### [employer] [address] [place] [address] 68370 Other ObservationsNOT REPORTEDNormalNREQMercy [facility] Hospital Comment on above:Performed By: #### PROG #### [employer] [address] [place] [address] 74586 TrichomonasNOT REPORTEDNormalNONEMercy West Cornwall HospitalComment on above:Performed By: #### PROG #### [facility] CenterHa[facility] [address] [place] [address] 03836 Yeast LM Ql (Urine sed)NOT REPORTEDNormalNONEMercy [facility] Hospital Comment on above:Performed By: #### PROG #### [employer] [address] [place] [address] 87143 XR CHEST (2 VW)on 59-04-4772AS CHEST (2 VW)EXAMINATION: TWO VIEWS OF THE CHEST 04/07/2018 12:49 pm COMPARISON: 01/22/2013, 04/24/2017 HISTORY: ORDERING SYSTEM PROVIDED HISTORY: dyspnea, - shield abd TECHNOLOGIST PROVIDED HISTORY: dyspnea, - shield abd 32-year-old female with dyspnea FINDINGS: traffic monitor specialist leads overlie the chest. Trachea is midline. [...] by: Victor Manuel Mcduffie MD 04/07/18 Final resultNoMarietta Osteopathic ClinicChlamydia/GC DNA, Uron 02-03-2018 Chlamydia Probe, UrNegativeNocone health wesley long hospitalNEGOhiohealth Marion General HospitalComment on above:Result Comment: CHLAMYDIA TRACHOMATIS DNA [...] nucleic acid target.Performed By: #### E2 #### [place] [address] Gonorrhea Probe, UrNegativeGrant HospitalComment on above:Result Comment: NEISSERIA GONORRHOEAE DNA not [...] nucleic acid target.Performed By: #### E2 #### [place] [address] Cult,Urine,CCon 23-58-9283Hioh,Urine,CCSpecimen Description .URINE Special Requests CCMS Culture NO SIGNIFICANT GROWTH Report Status FINAL 02/03/2018[facility] Hospitalment on above: Performed By: #### E2 #### [address] [address] HIV Ag/Abon 51-66-0945LQH Ag/AbNONREACTIVENormsdNROhiohealth Marion General HospitalComment on above:Result Comment: No laboratory evidence of HIV infection. If acute HIV infection is suspected, consider testing for HIV-1 RNA.Performed By: #### AHCV, HIVCMB #### [address] [address] #### GLYHGB #### [address] [place], [place] [id number] Hep C Abon 86-58-4097Pol C AbNONREACTIVEGenesis Hospital HospitalComment on above:Result Comment: The hepatitis [...] by PCR.Performed By: #### DHIRAJCV, HIVCMB #### [address] [address] #### GLYTISHB #### [address] [place], [place] [address] Prenatal Profileon 10-99-6903Ckw B Surf AgNONRELicking Memorial HospitalComment on above:Performed By: #### E2 #### [address] [address] Rubella Ab, TpB723.2 IU/mLNMercy Health Allen HospitalComment on above:Result Comment: REFERENCE RANGE: <5.0 NON-REACTIVE (non-immune) 5.0 TO 9.9 EQUIVOCAL >=10.0 REACTIVE (immune)Performed By: #### E2 #### [address] [address] T.pallidum Ab ScreenNONUniversity Hospitals Conneaut Medical CenterComment on above:Result Comment: T. pallidum antibodies are not detected. There is no serological evidence of infection with T. pallidum (early primary syphilis cannot be excluded). Retest in 2-4 weeks if syphilis is clinically suspect.Performed By: #### E2 #### [address] [address] Hemoglobin A1Con 46-05-2281HwH7q (Bld) [Mass fraction]111 mg/dL NormalOhiohealth Marion General HospitalComment on above:Result Comment: The ADA and AACC recommend providing the estimated average glucose result to permit better patient understanding of their HBA1c result.Performed By: #### AMY HIVCMB #### [address] [address] #### GLYHGB #### [address] [place] [address] HbA1c (Bld) [Mass fraction]5.5 %Normal4.8-5.9[facility] Comment on above:Performed By: #### AMY HIVCMB #### [address] [address] #### GLYHGB #### [address] [place] [address] Prenatal Profileon 20-09-2916Aup. Basophil0.07 k/uLNormal0.00-0.20 [facility] HospitalComment on above:Performed By: #### E2 #### [address] [address] Abs.Imm.Granulocyte0.05 k/uLNormal0.00-0.30[facility] Comment on above:Performed By: #### E2 #### [address] [address] Abs.Neutrophil (Seg)9.31 k/uLHigh1.50-8.10[facility] Comment on above:Performed By: #### E2 #### [address] [address] Basophils/100 WBC (Bld)1 %Normal0-2MKindred HealthcareComment on above:Performed By: #### E2 #### [address] [address]758 Eosinophils (Bld) [#/Vol]0.36 10*3/uLNormal0.00-0.44[facility] HospitalComment on above:Performed By: #### E2 #### [address] [address] Eosinophils/100 WBC (Bld)3 %Normal1-4[facility] HospitalComment on above:Performed By: #### E2 #### [address] [address] Erythrocyte distribution width (RBC) [Ratio]15.0 %High11.8-14.4 [facility] HospitalComment on above:Performed By: #### E2 #### [place] [address] Hematocrit (Bld) [Volume fraction]40.6 %Zscmlf44.3-47.1MParkview Health Montpelier Hospital HospitalComment on above:Performed By: #### E2 #### [address] [address] Hemoglobin (Bld) [Mass/Vol]12.9 g/lELztmnz91.9-15.1MKindred HealthcareComment on above:Performed By: #### E2 #### [place] [id number] Immature granulocytes (Bld) [#/Vol]0 %Ahjasc0EmiccOhiohealth Marion General Hospital Comment on above:Performed By: #### E2 #### [place] [id number] Lymphocytes (Bld) [#/Vol]3.96 10*3/uLHigh1.10-3.70[facility] HospitalComment on above:Performed By: #### E2 #### [address] [place] [address] Lymphocytes/100 WBC (Bld)27 %Dvxyao93-27BudlsOhiohealth Marion General Hospital Comment on above:Performed By: #### E2 #### [facility] CenterHa[facility] [address] [place] [address] 67625 MCH (RBC) [Entitic mass]27.8 opNhfpsf40.2-33.5[facility] Comment on above:Performed By: #### E2 #### [facility] CenterHa[facility] [address] [place] [address] 40874 MCHC (RBC) [Mass/Vol]31.8 g/mLWptbee62.4-34.8[facility] Comment on above:Performed By: #### E2 #### [facility] [address] [place] [address] 50258 MCV (RBC) [Entitic vol]87.5 eTNyspno92.6-102.9[facility] Comment on above:Performed By: #### E2 #### [facility] [address] [place] [address] 20581 Monocytes (Bld) [#/Vol]0.68 10*3/uLNormal0.10-1.20[facility] HospitalComment on above:Performed By: #### E2 #### [facility] [address] [place] [address] 58785 Monocytes/100 WBC (Bld)5 %Normal3-12[facility] HospitalComment on above:Performed By: #### E2 #### [facility] [address] [place] [address] 77255 Neutrophil (Seg)64 %Poslka94-92LpnwmOhiohealth Marion General HospitalComment on above:Performed By: #### E2 #### [facility] [address] [place] [address] 33636 NRBC Automated0.0 per 100 WBCNormal0.0[facility] HospitalComment on above:Performed By: #### E2 #### [facility] CenterHa[facility] [address] [place] [address] 50826 Platelet mean volume (Bld) [Entitic vol]9.7 fLNormal8.1-13.5[facility] HospitalComment on above:Performed By: #### E2 #### [facility] [address] [place] [address] 14367 Platelets (Bld) [#/Vol]315 10*3/qGNymdfm105-597Wtbok Tiffin HospitalComment on above:Performed By: #### E2 #### [facility] [address] [place] [address] 16384 RBC (Bld) [#/Vol]4.64 10*6/uLNormal3.95-5.11[facility] Comment on above:Performed By: #### E2 #### [facility] [address] [place] [address] 79531 WBC (Bld) [#/Vol]14.4 10*3/uLHigh3.5-11.3MKindred Healthcare Comment on above:Performed By: #### E2 #### [facility] [address] [place] [address] 69423 Auto Diff PerformedNOT REPORTEDNormalMain Campus Medical Center HospitalComment on above:Performed By: #### E2 #### [facility] [address] [place] [address] 97538 Platelets (Bld) [#/Vol]NOT REPORTEDNormalOhiohealth [facility] General Hospital Comment on above:Performed By: #### E2 #### [facility] CenterHa[facility] [address] [place] [address] 23586 RBC morphology finding Nom (Bld)NOT REPORTEDNormalMercy West Cornwall HospitalComment on above:Performed By: #### E2 #### [facility] [address] [place] [address] 14751 WBC MorphologyNOT REPORTEDNormalMercy West Cornwall HospitalComment on above:Performed By: #### E2 #### [address] [address] Prenatal Type + Scrnon 47-65-2938Yacfrqgo Type + ScrnNegativeNormal [facility] HospitalComment on above:Performed By: #### E2 #### [facility] [address] [place] [address] 62059 Toxicology Scree, Urineon 10-10-1851Mnsnkfprmjp(s),UrNegativeNormal NEGMercy West Cornwall HospitalComment on above:Performed By: #### E2 #### [facility] [address] [place] [address] Barbiturate(s),UrNegativeNormalNEGMercy West Cornwall HospitalComment on above:Performed By: #### E2 #### [facility] [address] [place] [address]68 Benzodiazepine(s)NegativeNormalNEGMercy West Cornwall HospitalComment on above:Performed By: #### E2 #### [facility] [address] [place] [address] Buprenorphrine, UrNegativeNormalNEGMercy West Cornwall HospitalComment on above:Performed By: #### E2 #### [facility] [address] [place] [address]1006 Cannabinoid(s),UrNegativeNormalNEGMercy West Cornwall HospitalComment on above:Performed By: #### E2 #### [facility] [address] [place] [address] 36053 Cocaine MetaboliteNegativeNormalNEGMercy West Cornwall HospitalComment on above:Performed By: #### E2 #### [facility] [address] [place] [address]10 Methadone Ql (U)NegativeNormalNEGMercy West Cornwall HospitalComment on above:Performed By: #### E2 #### [address] [address] Methamphetamine, UrNegativeNormalNEGMercy West Cornwall HospitalComment on above:Performed By: #### E2 #### [address] [address] Opiate(s), UrNegativeNormalNEGMercy West Cornwall HospitalComment on above:Performed By: #### E2 #### [address] [address] Oxycodone, UrineNegativeNormalNEGMercy West Cornwall HospitalComment on above:Performed By: #### E2 #### [address] [address] Phencyclidine, UrNegativeNormalNEGMercy West Cornwall HospitalComment on above:Performed By: #### E2 #### [address] [address] Propoxyphene,UrineNegativeNormalNEGMercy West Cornwall HospitalComment on above:Performed By: #### E2 #### [address] [address] Tricyclic antidepressants Screen Ql (U)NegativeNormalNEGMercy West Cornwall HospitalComment on above:Result Comment: Drug screen results are to be used for medical purposes only. All positive results are unconfirmed. Testing for employment or legal uses should be sent to a reference laboratory for confirmation.Performed By: #### E2 #### [address] [address] Interpretive InfoNOT REPORTEDNormalMercy West Cornwall HospitalComment on above:Performed By: #### E2 #### [address] [address] MDMA, UrineNOT REPORTEDNormalNEGMercy West Cornwall HospitalComment on above:Performed By: #### E2 #### [address] [id number] HCG, Quanton 61-17-7660HRG, Vmiug3016 IU/LHigh<5Mer[facility] HospitalComment on above:Result Comment: Non-preg premeno <=5 Postmeno <=8 Male <=3 If HCG results do not concur with clinical observations, additional testing to confirm result is recommended. This test is not labeled for use as a tumor marker.Performed By: #### BHCG #### [address] [place] [address] #### PROG #### [facility] [address] [place], [place] [id number] Progesteroneon 72-48-4179Qspjgqmupkre10.56 ng/mLNormalMain Campus Medical Center HospitalComment on above:Result Comment: FEMALE (healthy): Follicular phase 0.06-0.89 Ovulation phase 0.12-12.00 Luteal phase 1.83-23.90 Postmenopausal <0.13Performed By: #### BHCG #### [address] [place] [address] #### PROG #### [facility] [address] [place] [address] HCG, Quanton 27-05-3730CQX, Shucn138 IU/LHigh<5[facility] HospitalComment on above:Result Comment: Non-preg premeno <=5 Postmeno <=8 Male <=3 If HCG results do not concur with clinical observations, additional testing to confirm result is recommended. This test is not labeled for use as a tumor marker.Performed By: #### BHCG #### [address] [place] [address] HCG, Quanton 33-60-9976XMS, Rflpc752 IU/LHigh<5[facility] HospitalComment on above:Result Comment: Non-preg premeno <=5 Postmeno <=8 Male <=3 If HCG results do not concur with clinical observations, additional testing to confirm result is recommended. This test is not labeled for use as a tumor marker.Performed By: #### BHCG #### [address] [place] [address] Progesteroneon 00-85-9984Undiesfrqwzc44.39 ng/mLNormalOhiohealth Marion General HospitalComment on above:Result Comment: FEMALE (healthy): Follicular phase 0.06-0.89 Ovulation phase 0.12-12.00 Luteal phase 1.83-23.90 Postmenopausal <0.13Performed By: #### PROG #### [facility] [address] [place] [address] Estradiolon 37-42-5369Ykhkvdlvx181 pg/xZYffl76-669RezszOhiohealth Marion General HospitalComment on above:Result Comment: FEMALES: Normally menstruating Luteal phase 33-298 Follicular phase 27-156 Midcycle phase 48-314 Postmenopausal (untreated) 5-50Performed By: #### E2 #### [address] [place] [address] Estradiolon 04-27-0073Ejygjcwbv38 pg/oUOevoby84-630Ddhua23 Berry StreetComment on above:Result Comment: FEMALES: Normally menstruating Luteal phase 33-298 Follicular phase 27-156 Midcycle phase 48-314 Postmenopausal (untreated) 5-50Performed By: #### E2 #### [address] [place] [address] Vital Signs Date TimeVital SignValuePerforming WeuhckhoyBudcweai54-23-9593 14:42-0400Body gwloqhygflr58.59 [degF]Vida Albrecht MD Work Phone: Bon [facility]07-28-2025 14:42-0400Diastolic blood doljvvbs58 mm[Hg]Vida Albrecht MD Work Phone: [phone] [facility]07-28-2025 14:42-0400 Respiratory rate18 /minVida Albrecht MD Work Phone: [facility]07-28-2025 14:42-0601AfX8% (BldA) [Mass fraction]99 %Vida Albrecht MD Work Phone: [facility]07-28-2025 14:42-0400Systolic blood udpscvkw316 mm[Hg]Vida Albrecht MD Work Phone: Bon [facility]07-28-2025 10:49-0400Body qtykrc460.6 Amanda Albrecht MD Work Phone: [facility]07-28-2025 10:49-0400Body mass index (BMI) [Ratio]41.2 kg/o4PctlntsnlmdVida Albrecht MD Work Phone: Bon [facility]07-28-2025 10:49-0400Body tteejl431.86 kgVida Albrecht MD Work Phone: [facility]07-28-2025 10:45-0400Heart rate73 /minVida Albrecht MD Work Phone: [facility]04-21-2025 10:16-0400Body txmiqr372 cmChris Dimas MD Work Phone: Bon [facility]04-21-2025 10:16-0400Body mass index (BMI) [Ratio]40.74 kg/u2FyuoyiChris Dimas MD Work Phone: [facility]04-21-2025 10:16-0400Body ulbzfzlsvar88.1 [degF]Chris Dimas MD Work Phone: Bon [facility]04-21-2025 10:16-0400Body kooulg256.33 kgChris Dimas MD Work Phone: Bon [facility]04-21-2025 10:16-0400Diastolic blood qglqutvt34 mm[Hg]Chris Dimas MD Work Phone: Bon [facility]04-21-2025 10:16-0400Heart rate69 /minChris Dimas MD Work Phone: bon [facility]04-21-2025 10:16-0400 Respiratory rate19 /Gladis Dimas MD Work Phone: bon [facility]04-21-2025 10:16-6993ExZ7% (BldA) [Mass fraction]98 %Chris Dimas MD Work Phone: bon [facility]04-21-2025 10:16-0400Systolic blood qcygsomz590 mm[Hg]Chris Dimas MD Work Phone: bon [facility]03-13-2025 10:55-0400Heart rate59 /minJodi Mayra [facility]03-13-2025 10:55-2091VcT4% (BldA) [Mass fraction]99 %Cleo Mayra [facility]03-13-2025 10:55-0400 Diastolic blood fwulamrt40 mm[Hg]Cleo Mayra [facility]03-13-2025 10:55-0400Mean blood ayrnlitg21 mm[Hg]Cleo Mayra [facility]03-13-2025 10:55-0400 Systolic blood jeigdosz650 mm[Hg]Cleo Mayra [facility]03-13-2025 10:54-0400 Respiratory rate18 /minJodi Mayra [facility]03-13-2025 08:54-0400Heart rate73 /minJodi Mayra [facility]03-13-2025 08:54-9291QgB0% (BldA) [Mass fraction]98 %Cleo Mayra [facility]03-13-2025 08:54-0400 Respiratory rate20 /minJodi Mayra [facility]03-13-2025 08:54-0400Blood Pressure LocationJodi Mayra [facility]03-13-2025 08:54-0400Body etnvugwajgu41.88 [degF]Cleo Mayra [facility]03-13-2025 08:54-0400 Diastolic blood ypqggogj36 mm[Hg]Cleo Mayra [facility]03-13-2025 08:54-0400Mean blood hhihlpbr94 mm[Hg]Cleo Mayra [facility]03-13-2025 08:54-0400 Systolic blood igtrzjng145 mm[Hg]Cleo Mayra [facility]09-18-2024 14:29-0400Body hqopyk296 cmBenkacy Murcek DO Work Phone: [facility] CenterBzwksbgywm17-84-0228 14:29-0400Body mass index (BMI) [Ratio]41.81 kg/b0Glisyxrw Murcek DO Work Phone: [facility] CenterItbkusmxow76-29-4381 14:29-0400Body fnmals484.05 kgBenkacy Murcek DO Work Phone: [facility] CenterQyvggeacuh63-01-5087 15:02-0400Body orfmui914 cm Brandon Pratibhacek DO Work Phone: [facility] CenterElkstpioxg03-17-5863 15:02-0400Body mass index (BMI) [Ratio]41.98 kg/k2Cqthgsfk Murcek DO Work Phone: [facility] CenterGnnmggyrok89-97-9140 15:02-0400Body oxpgit918.5 kgBenyunmin Murcek DO Work Phone: [facility] CenterZkkownvnun31-54-9106 15:08-0400Blood Pressure LocationMojohn a. [facility] Mouchli [phone]-ScusvSelect [facility]07-31-2024 15:08-0400Diastolic blood yqdwwyoh02 mm[Hg]Kevind Radhali [phone]-Apoqs[address] [place], [place] 1016907-31-2024 15:08-0400Heart rate74 /minMohamad Mouchli [phone]-Maiur[address] [place], [place] 1016907-31-2024 15:08-0400Respiratory rate16 /minMohamad Mouchli [phone]-Ekned[address] [place], [place] 1016907-31-2024 15:08-0400Systolic blood pxmrpyva581 mm[Hg]Stefan Mclean [phone]-Dquzm[address] [place], [place] 9965707-15-2024 14:00-0400Diastolic blood dancnjes94 mm[Hg]Stefan Mclean [address] [place], [place] 5901507-15-2024 14:00-0400Heart rate70 /minMohamad Jasuchli [address] [place], [place] 5901507-15-2024 14:00-0400Mean blood mm[Hg]Stefan Mclean [address] [place], [place] 5901507-15-2024 14:00-8415MsC1% (BldA) [Mass fraction]96 %Stefan Garciali [address] [place], [place] 5901507-15-2024 14:00-0400 Systolic blood chmmoxyc686 mm[Hg]Kevind Radhali [address] [place], [place] 5901507-15-2024 13:50-0400 Diastolic blood mm[Hg]Stefan Garciali [address] [place], [place] 5901507-15-2024 13:50-0400Heart rate87 /minMohamad Jasuchli [facility]07-15-2024 13:50-0400Mean blood lvcmaega96 mm[Hg]Mohamad Mouchli [address] [place], [place] 5901507-15-2024 13:50-0400 Respiratory rate15 /minMohamad Mouchli [address] [place], [place] 5901507-15-2024 13:50-1962DpY9% (BldA) [Mass fraction]98 %Mohamad Mouchli [address] [place], [place] 5901507-15-2024 13:50-0400 Systolic blood jdugmxku068 mm[Hg]Mohamad Mouchli [address] [place], [place] 5901507-15-2024 13:45-0400 Diastolic blood bvnqmmve15 mm[Hg]Mohamad Mouchli [address] [place], [place] 5901507-15-2024 13:45-0400Heart rate73 /minMohamad Mouchli [address] [place], [place] 5901507-15-2024 13:45-0400Mean blood mm[Hg]Mohamad Mouchli [address] [place], [place] 5901507-15-2024 13:45-0400 Respiratory rate18 /minMohamad Mouchli [address] [place], [place] 5901507-15-2024 13:45-8881XjV1% (BldA) [Mass fraction]98 %Mohamad Mouchli [address] [place], [place] 5901507-15-2024 13:45-0400 Systolic blood exwarzfz503 mm[Hg]Mohamad Mouchli [address] [place], [place] 5901507-15-2024 13:35-0400Body ecseyxjtdhh59.88 [degF]Mohamad Mouchli [facility]07-15-2024 13:25-0400 Respiratory rate12 /minMohamad Mouchli [address] [place], [place] 5901507-15-2024 13:15-0400 Respiratory rate12 /minMohamad Mouchli [facility]07-15-2024 13:05-0400 Respiratory rate12 /minMohamad Mouchli [address] [place], [place] 5901507-15-2024 13:01-0400Blood Pressure LocationMohamad Mouchli [address] [place], [place] 5901507-15-2024 13:01-0400Body vwahrilclxu93.06 [degF]Germánamad Mouchli [address] [place], [place] 5901507-11-2024 13:37-0400Blood Pressure LocationMohamad Mouchli [phone]-Aklti[address] [place], [place] 101[address]07-11-2024 13:37-0400Diastolic blood xycybvbq72 mm[Hg]Mohamad Mouchli 482-6289Wwksdf-Ivgtk[address] [place], [place] 1016907-11-2024 13:37-0400Heart rate82 /minMohamad Mouchli [phone]-Fmgsj[address] [place], [place] 1016907-11-2024 13:37-0400Respiratory rate16 /minMohamad Mouchli [phone]-Ubone[address] [place], [place] 1016907-11-2024 13:37-0400Systolic blood mm[Hg]Mohamad Mouchli [phone]-Kjwfy[address] [place], [place] 1016906-24-2024 11:28-0400Body mgmayzdsifw65.42 [degF]Quyen Phoenixsagrario [address] [place], [place] 2836306-24-2024 11:28-0400 Diastolic blood fecfazfr93 mm[Hg]Quyen Garcia [facility]06-24-2024 11:28-0400Heart rate69 /Neda Garcia [facility]06-24-2024 11:28-0400Mean blood dyjjwubj61 mm[Hg]Quyen Garcia [facility]06-24-2024 11:28-0400 Respiratory rate16 /Neda Garcia [facility]06-24-2024 11:28-3726OpW7% (BldA) [Mass fraction]98 %Quyen Garcia [facility]06-24-2024 11:28-0400 Systolic blood sajifero679 mm[Hg]Quyen Garcia [facility]06-14-2024 13:12-0400Heart rate67 /minJocharity Mayra [facility]06-14-2024 13:12-6481CtM6% (BldA) [Mass fraction]98 %Cleo Mayra [facility]06-14-2024 13:12-0400Body tntrcxjewxf71.06 [degF]Cleo Mayra [facility]06-14-2024 13:12-0400 Diastolic blood tfijtytr17 mm[Hg]Cleo Mayra [facility]06-14-2024 13:12-0400Mean blood lpulbevz82 mm[Hg]Cleo Mayra [facility]06-14-2024 13:12-0400 Systolic blood mqirukad325 mm[Hg]Cleo Mayra [facility]06-14-2024 13:11-0400 Respiratory rate16 /minJodi Mayra [address] [place], [place] 6241106-14-2024 09:09-0400Heart rate80 /minJodi Mayra [address]06-14-2024 09:09-2649TdD8% (BldA) [Mass fraction]99 %Cleo Mayra [address] [place], [place] 6241106-14-2024 09:09-0400 Respiratory rate16 /minJodi Mayra [address]06-14-2024 09:08-0400Blood Pressure LocationJodi Mayra [address]06-14-2024 09:08-0400 Diastolic blood lacunjkf08 mm[Hg]Cleo Mayra [address]06-14-2024 09:08-0400Mean blood kmulmchq74 mm[Hg]Cleo Mayra [address] [place], [place] 6241106-14-2024 09:08-0400 Systolic blood vynldwpn701 mm[Hg]Cleo Mayra [address]06-14-2024 09:08-0400Body zbinmbqkbks72.06 [degF]Cleo Mayra [address] [place], [place] 6241106-12-2024 14:08-0400Heart rate67 /minAstrit [facility]06-12-2024 14:08-0400 Respiratory rate16 /minAstrit [facility]06-12-2024 13:00-0400Diastolic blood imowormi13 mm[Hg][facility]06-12-2024 13:00-0400Heart rate74 /minAstrit [facility]06-12-2024 13:00-0400Mean blood hvqabpkb54 mm[Hg][facility]06-12-2024 13:00-0400Systolic blood mm[Hg][facility]06-12-2024 12:19-0400Diastolic blood bgzfsktu66 mm[Hg][facility]06-12-2024 12:19-0400Heart rate77 /[facility]06-12-2024 12:19-0400Mean blood niuwizgs848 mm[Hg][facility]06-12-2024 12:19-0400Respiratory rate13 /[facility]06-12-2024 12:19-4852BjG1% (BldA) [Mass fraction]100 %[facility]06-12-2024 12:19-0400Systolic blood pressure 148 mm[Hg][facility]06-12-2024 11:02-0400Body zapbshzsobi06.6 [degF][facility]06-12-2024 11:02-0400Diastolic blood tpyhrbsb11 mm[Hg][facility]06-12-2024 11:02-0400Heart rate82 /[facility]06-12-2024 11:02-0400Respiratory rate20 /[facility]06-12-2024 11:02-0400Systolic blood gdfspkez716 mm[Hg][facility]12-19-2022 15:44-0500Body vgzgefvaidz03.7 [degF]ERAN [facility]ado [facility]: [facility] 15:44-0500 Diastolic blood vpxofero46 mm[Hg]ERAN Coronado Work Phone: [facility]12-19-2022 15:44-0500 Heart rate84 /minNP-C Abdullahi Coronado Work Phone: 1(419)[address] [place], [place] 7304212-19-2022 15:44-0500 Respiratory rate22 /minNP-C Abdullahi Coronado Work Phone: 1(419)[address] [place], [place] 7304212-19-2022 15:44-0500 SaO2% (BldA) [Mass fraction]95 %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/ANALYST-C Abdullahi Coronado Work Phone: 1(419)[address] [place], [place] 7304212-19-2022 15:44-0500 Systolic blood nkusxrvo525 mm[Hg]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/ANALYST-C Abdullahi Coronado Work Phone: 1(419)[address] [place], [place] 7304212-19-2022 15:42-0500 Body bjvysn702.56 cmNP-C Abdullahi Coronado Work Phone: 1(419)[address] [place], [place] 7304212-19-2022 15:42-0500 Body tacpuv687.5 kgNP-C Abdullahi Coronado Work Phone: 1(419)[address] [place], [place] 7304211-07-2022 16:00-0500 Body [degF]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/ANALYST-C Abdullahi Coronado Work Phone: 1(419)[address] [place], [place] 7304211-07-2022 16:00-0500 Diastolic blood aczqeyhy39 mm[Hg]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/ANALYST-C Abdullahi Coronado Work Phone: 1(419)[address] [place], [place] 7304211-07-2022 16:00-0500 Heart rate99 /minNP-C Abdullahi Coronado Work Phone: 1(419)[address] [place], [place] 7304211-07-2022 16:00-0500 Respiratory rate18 /minNP-C Abdullahi Coronado Work Phone: 1(419)[address] [place], [place] 7304211-07-2022 16:00-0500 SaO2% (BldA) [Mass fraction]94 %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/ANALYST-C Abdullahi Coronado Work Phone: 1(419)[address] [place], [place] 7304211-07-2022 16:00-0500 Systolic blood ccnkhciz958 mm[Hg]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/ANALYST-C Abdullahi Sola Work Phone: 1(419)[address] [place], [place] 7304211-07-2022 13:15-0500 Inhaled oxygen flow rate1 L/minNP-C Abdullahi Coronado Work Phone: [phone])[address] [place], [place] 7304211-07-2022 04:17-0500 Body wzzgvo979.8 kgNP-C Abdullahi Coronado Work Phone: [phone])[address] [place], [place] 7304211-06-2022 18:10-0500 Diastolic blood mm[Hg]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/ANALYST-C Abdullahi Coronado Work Phone: 1(419)[address] [place], [place] 7304211-06-2022 18:10-0500 Heart qhco773 /minNP-C Abdullahi Coronado Work Phone: [phone])[address] [place], [place] 7304211-06-2022 18:10-0500 Inhaled oxygen flow rate2 L/minNP-C Abdullahi Coronado Work Phone: [phone])[address] [place], [place] 7304211-06-2022 18:10-0500 Respiratory rate22 /minNP-C Abdullahi Coronado Work Phone: 1(419)[address] [place], [place] 7304211-06-2022 18:10-0500 SaO2% (BldA) [Mass fraction]91 %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/ANALYST-C Abdullahi Coronado Work Phone: [phone])[address] [place], [place] 7304211-06-2022 18:10-0500 Systolic blood qcgvpgiz415 mm[Hg]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/ANALYST-C Abdullahi Coronado Work Phone: 1(419)[address] [place], [place] 7304211-06-2022 14:32-0500 Body halegz694.56 cmNP-C Abdullahi Coronado Work Phone: 1(419)[address] [place], [place] 7304211-06-2022 14:32-0500 Body wotzvlujjwp90.9 [degF]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/ANALYST-C Abdullahi Coronado Work Phone: [phone])[address] [place], [place] 7304211-06-2022 14:32-0500 Body .7 kgNP-C Abdullahi Coronado Work Phone: 1(419)[address] [place], [place] 7304209-29-2022 13:25-0400 SaO2% (BldA) [Mass fraction]93 %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/ANALYST-C Abdullahi Coronado Work Phone: [phone])[address] [place], [place] 7304209-29-2022 11:45-0400 Inhaled oxygen flow rate3.5 L/minNP-C Abdullahi Sola Work Phone: [phone])[address] [place], [place] 7304209-29-2022 11:09-0400 Body kqmpmdhuzmz26.2 [degF]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/ANALYST-C Abdullahi Sola Work Phone: [phone])[address] [place], [place] 7304209-29-2022 11:09-0400 Diastolic blood gomxolqg83 mm[Hg]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/ANALYST-C Abdullahi Sola Work Phone: 1(419)[address] [place], [place] 7304209-29-2022 11:09-0400 Heart rate78 /minNP-C Abdullahi Sola Work Phone: [phone])[address] [place], [place] 7304209-29-2022 11:09-0400 Respiratory rate24 /minNP-C Abdullahi Sola Work Phone: [phone])[address] [place], [place] 7304209-29-2022 11:09-0400 Systolic blood swwmzima164 mm[Hg]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/ANALYST-C Abdullahi Coronado Work Phone: 1(419)[address] [place], [place] 7304209-29-2022 03:26-0400 Body tvohxf829 kgNP-C Abdullahi Coronado Work Phone: [phone])[address] [place], [place] 7304209-28-2022 04:42-0400 Body zhijrl736.56 cmNP-C Abdullahi Coronado Work Phone: 1419)[address] [place], [place] 7304209-28-2022 04:06-0400 Diastolic blood tvixhwus38 mm[Hg]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/ANALYST-C Abdullahi Sola Work Phone: 1419)[address] [place], [place] 7304209-28-2022 04:06-0400 Heart rate88 /minNP-C Abdullahi Sola Work Phone: 1419)[address] [place], [place] 7304209-28-2022 04:06-0400 Inhaled oxygen flow rate2 L/minNP-C Abdullahi Sola Work Phone: 1(925)[address] [place], [place] 7304209-28-2022 04:06-0400 Respiratory rate20 /minNP-C Abdullahi Sola Work Phone: 1(419)433-[address] [place], [place] 0810309-28-2022 04:06-0400 SaO2% (BldA) [Mass fraction]98 %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/ANALYSTMelinda Coronado Work Phone: 1(549)[address]09-28-2022 04:06-0400 Systolic blood atrfkhoj872 mm[Hg]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/ANALYST-Jase Coronado Work Phone: 1(089)[address]09-28-2022 02:24-0400 Body riurlb346.56 cmNP-C Abdullahi Coronado Work Phone: 1(497)[address]09-28-2022 02:24-0400 Body wicqhveehor53 [degF]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/ANALYSTMelinda Coronado Work Phone: 1(176)[address] [place], [place] 7304209-28-2022 02:24-0400 Body jrakgz522 kgNP-Jase Coronado Work Phone: 1(188)[address] [place], [place] 7304209-21-2022 11:23-0400 Body axfmcj386.6 [facility]09-21-2022 11:23-0400[facility] 16:45-0500Body lhhadh287.02 cm Brandon Perez Other [employer] Other 12-09-2021 16:45-0500Body mass index (BMI) [Ratio] 50.53 kg/f3VfnvhfBrandon Perez Other [email or web address] Other 12-09-2021 16:45-0500Body dllixn864.41 kgBrandon Perez Other [email or web address] Other 12-09-2021 16:45-0500Diastolic blood hvetadag83 mm[Hg] Brandon Perez Other [facility] Other 12-09-2021 16:45-0500Respiratory rate18 /minSkinsey Perez Other [employer] Other 12-09-2021 16:45-5907SiE2% (BldA) [Mass fraction]97 % Brandon Gutiérrezky Other [employer] Other 12-09-2021 16:45-0500Systolic blood wpexqozx188 mm[Hg] Brandon Chris Other [email or web address] Other 10-26-2021 10:00-0400Body ahmrxo835.02 Benjaminnicolás Gutiérrezky Other [email or web address] Other 10-26-2021 10:00-0400Body mass index (BMI) [Ratio]50.3 kg/b4Kyrymj Chris Other [email or web address] Other 10-26-2021 10:00-0400Body tbgrig412.82 kgShnicolettebrandi Perez Other [email or web address] Other 10-26-2021 10:00-0400Diastolic blood zrwlpeso15 mm[Hg] Brandon Chris Other [employer] Other 10-26-2021 10:00-0400Systolic blood xhwyrvpv752 mm[Hg] Brandon Chris Other [employer] Other 09-23-2021 14:30-0400Body akuxfm472.02 Belkis Perez Other [email or web address] Other 09-23-2021 14:30-0400Body mass index (BMI) [Ratio] 49.77 kg/l4Sksqhv Chris Other [facility] [employer] Other 09-23-2021 14:30-0400Body zjtqic563.46 kgBrandon Perez Other [facility] [employer] Other 09-23-2021 14:30-0400Diastolic blood czcmovrf06 mm[Hg] Brandon Guti[facility]rezky Other [facility] [employer] Other 09-23-2021 14:30-1385TdA8% (BldA) [Mass fraction]98 % Brandon Gutiérrezky Other [facility] [employer] Other 09-23-2021 14:30-0400Systolic blood mm[Hg] Brandon Gutiérrezky Other [facility] [employer] Other Encounters Encounter DateEncounter [facility] ProviderFacilityStart: 12-26-2024 End: 41-60-7938zrhurrusaqFkuv L SchwabFacility:[facility]Start: 12-26-2024 End: 67-12-2711ovgpkbjeiaGkci L SchwabFacility:[facility] [place]vueStart: 11-28-2024 End: 18-34-2523xbyzvmkcvjJjpt L SchwabFacility:FTMCStart: 09-17-2024 End: 12-70-7160Klgnvvznl department patient visitChaugust Albrecht MD Work Phone: [facility] DepartmentComment on above: Lower abdominal pain (Primary Dx)Start: 09-11-2024 End: 88-09-1579Nggtiiedf encounterSheri Ammali LPNNOMS NB OBStart: 09-05-2024 End: 77-01-6462fksymtboscZNTCGT A LEHMANNFacility:FTMCStart: 09-04-2024 End: 93-72-4109xfxptelvjfZZCENZ A LEHMANNFacility:[facility] [place]vueStart: 06-11-2024 End: 52-28-1604Vasxsgxpf department patient visitChris Dimas MD Work Phone: [facility] DepartmentComment on above: Fatigue, unspecified type (Primary Dx); DehydrationStart: 05-03-2024 End: 38-86-5298csenvdydsuIgvh L SchwabFacility:FTMCStart: 05-03-2024 End: 09-24-4130Mzxidya encounter procedureJodi L Mayra [facility] Start: 05-03-2024 End: 14-17-1722ReiwzwttyHucb L Mayra [facility] Start: 04-30-2024 End: 62-03-8517qfuumdwtkeLbtw L SchwabFacility:FT FM BellevueStart: 04-27-2024 End: 49-43-7555vyzrkrlbkxIRB Cleo L SchwabFacility:FTMCStart: 02-17-2024 End: 46-53-8050bjfjicqwvcZFH Cleo L SchwabFacility:[facility] BellevueStart: 12-05-2023 End: 57-73-2541xhquwvmjcsOQU Cleo L SchwabFacility:[facility] BellevueStart: 11-09-2023 End: 43-99-6389Uxgybt follow up visit related to original pxBefrancsecaoneil Juares DO Work Phone: [facility] ENT SANDUSKYComment on above:Status post partial thyroidectomy (CMS/HCC) (Primary Dx); Other hyperparathyroidism (CMS/HCC)Start: 11-09-2023 End: 22-56-4263etrrctownvUCGJGZSI W MURCELEENAot AvailableStart: 11-09-2023 End: 09-23-4788Mtzwrp flowsheetBenyunmin W Pratibhalester DO Work Phone: [facility] SANDUSKYStart: 11-09-2023 End: 02-17-9359Opftgx flowsheetBenjamin W Murcek DO Work Phone: [facility] SANDUSKYStart: 10-27-2023 End: 09-84-2399Toy-admission assessmentQuyen Garcia [facility] Start: 10-26-2023 End: 07-17-8933phpzdysdbiAeth Katie DemboskeFacility:FTMCStart: 10-26-2023 End: 42-70-8533Hsluvjd encounter procedureQuyen Garcia [facility] Start: 10-25-2023 End: 66-76-1651Wecdbhj encounter procedureNP-C Cleo Hernandez Work Phone: [facility] [place] Work Phone: Start: 10-25-2023 End: 85-88-8543wwxealapkiNU-C Cleo Hernandez Work Phone: [facility] Work Phone: Start: 10-12-2023 End: 27-08-5082Xaqozy follow up visit related to original pxBenjamin W Murcek DO Work Phone: n[facility] ENT SANDUSKYComment on above:Status post partial thyroidectomy (CMS/HCC) (Primary Dx); Thyroid mass (CMS/HCC); Low vitamin D levelStart: 10-12-2023 End: 54-39-1283ctedgvlmxqMLOIOLGU W MURCEKNot AvailableStart: 10-12-2023 End: 36-38-7618Svqxzq flowsheetBenjamin W Murcek DO Work Phone: [facility] SANDUSKYStart: 10-12-2023 End: 67-89-2513Xyfgom flowsheetBenjamin W Murcek DO Work Phone: [facility] SANDUSKYStart: 10-05-2023 End: 93-67-7130oyqrzsnkvlLZ-C Cleo Hernandez Work Phone: [facility] Work Phone: Start: 10-05-2023 End: 16-48-5757Uvfwffxp ReferredNP-C Cleo Mayra Work Phone: [facility] [place] Work Phone: Start: 09-26-2023 End: 43-50-2046Tdywkjo encounter procedureNP-C Cleo Hernandez Work Phone: [facility]-Electrodiagnostics Work Phone: Start: 09-26-2023 End: 15-94-7099xgkuvjmbthIW-C Cleo Rivas Mayra Work Phone: [facility] Work Phone: Start: 09-21-2023 End: 70-39-5166suotglmdgnNomxqxd A. MouchliFacility:[facility] DHStart: 09-21-2023 End: 44-65-3057Hezhuxa encounter procedureMoclara Mclean [phone]-ImaebPromedica [facility] Start: 09-20-2023 End: 14-35-7002lipmstimzuHLXRBJKE W Yaneth AvailableStart: 18-74-8563Ecqfksd encounter statusBenyunoneil Murlester DO Work Phone: NONC HealthcareStart: 09-05-2023 End: 51-77-4650dhzdcxduozLkuwnqr A. MouchliFacility:FTMCStart: 09-05-2023 End: 89-07-4941Fqrxeog encounter procedureStefan Mclean [facility] Start: 09-01-2023 End: 94-16-8754Fmj Drop offJosé Antonio BenitezPromedica Memorial Hospital Start: 09-01-2023 End: 04-87-8298ubpnrjojqvRebisem A. MouchliFacility:FTMCStart: 09-01-2023 End: 68-11-8105Fiukecg encounter procedureStefan Mclean [facility] Start: 09-01-2023 End: 75-85-1090szrfdbyxrnAwfcdry A. MouchliFacility:[facility] DHStart: 09-01-2023 End: 99-08-5051Hfxuhyo encounter procedureStefan Mclean [phone]-MerkxPromedica [facility] Start: 91-72-3396hlzhjojsbvBepvxvd Mouchli Facility:[facility] DHStart: 08-15-2023 End: 27-53-6911rpglzzwclnPggpnwn AdamowiczFacility:FTMCStart: 08-15-2023 End: 81-58-2644Jmozeem encounter Elvis Morro Jose [facility] Start: 08-12-2023 End: 59-15-2684bxikrraglnArgxucg AdamowiczFacility:FTMCStart: 08-12-2023 End: 28-57-7911Vpfijis encounter procedureJosé Antonio [facility]oplesSelect [facility] Start: 08-05-2023 End: 45-10-9790jbdmuqyyfmZRH Cleo Godfrey SchwabFacility:FTMCStart: 08-05-2023 End: 11-28-4811NdmxvmxbjKwye L Mayra [facility] Start: 08-03-2023 End: 33-80-9909Jhvclcfbt department patient visitElizabeth MoisePromedica Memorial Hospital Start: 08-01-2023 End: 87-70-1903Qiw Drop offJodi L Mayra [facility] Start: 08-01-2023 End: 77-59-2929taiejmjnirYhly L SchwabFacility:FTMCStart: 04-26-2023 End: 06-85-2342fbteqkbayqWQDCEKY Franko PORTER-NOSSEKNot AvailableStart: 03-29-2023 End: 33-11-8048rujvnxsheuFgsq L SchwabFacility:[facility] FM BellevueStart: 03-17-2023 End: 58-88-0677nctuzlouvnPPLMMIU M FIOR-NOSSELEENAot AvailableStart: 02-23-2023 End: 58-73-9024xqdqvinrecJHAKRHY N AUSTINNot AvailableStart: 01-24-2023 End: 09-35-1466ftjrohnawbKtdm L SchwabFacility:FTMCStart: 10-18-2022 End: 93-46-4199Wpn Drop offJodi L Mayra [facility] Start: 10-18-2022 End: 58-14-2592zknmyrdeipAstn L SchwabFacility:FTMCStart: 88-54-7103chxhkemuqc Cleo SchwabFacility:[facility] BellevueStart: 06-28-2022 End: 34-80-6743xwjkabhrjfJWZLVV RODRIGUEZ .Facility:A6Rvyzf: 02-08-2022 End: 69-48-0957Lwlgzboln department patient visitERAN Coronado Work Phone: [facility] RoomStart: 12-27-2021 End: 17-76-0870Qvopwtwncr and management of inpatientJENNIFER-Jase Coronado Work Phone: [facility] [place] SurgicalStart: 12-10-2021 End: 78-22-8411Zvroxlb encounter procedureMeenakshi Obrien MD Work Phone: OphthalmologyComment on above:Monocular esotropia, left eye (Primary Dx)Start: 32-99-9530Ybapxayqi encounterMeenakshi Obrien MD Work Phone: OphthalmologyComment on above:Patient QuestionStart: 11-26-2021 End: 64-44-1795Dhpfjkc encounter procedureMeenakshi Obrien MD Work Phone: OphthalmologyComment on above:Monocular esotropia, left eye (Primary Dx)Start: 11-18-2021 End: 74-37-4565Ecibotzlap and management of inpatientJENNIFER-Jase Coronado Work Phone: [place] [address] Ctr-[facility] [place] [facility] SurgStart: 64-41-2915aolzvxtbamm encounterNP-C Abdullahi Coronado Work Phone: [place] [address] Ctr Work Phone: Start: 11-11-2021 End: 78-53-7691DZGDrsk [place] 1 VirtualPre AnesthesiaComment on above: Preoperative examination (Primary Dx); Hyperlipidemia, unspecified hyperlipidemia type; Asthma, unspecified asthma severity, unspecified whether complicated, unspecified whether persistent; PATRICE (obstructive sleep apnea); H/O bariatric surgery; Steatosis of liver; Bipolar affective disorder, remission status unspecified (HCC); Obesity (BMI 30-39.9)Start: 11-11-2021 End: 84-35-1825Hhzfrsxvskmoj examination donePacc VirtualPre AnesthesiaStart: 20-48-5360qlvhbphxdnPhrxchl Babiuch MD Work Phone: OphthalmologyComment on above:PaperworkStart: 86-85-8561Mrabnziak encounterMeenaksih Obrien MD Work Phone: OphthalmologyComment on above:Schedule SurgeryStart: 10-02-2021 End: 89-07-2974Gqkzqao encounter procedureMeenakshi Obrien MD Work Phone: OphthalmologyComment on above:Monocular esotropia, left eye (Primary Dx); DiplopiaStart: 06-17-2021 End: 46-51-8467kybavnrbqsQxhalcr [employer] Other [employer] Other Start: 31-85-3344Yympgesuj encounterFeliclaura Duboislibertyjenniffer [facility]Start: 02-24-2021(Procedure) Shweta Rashid [facility] CenterStart: 02-24-2021 End: 25-20-7671exvbcwsayeIvhyhc Zaky Other [employer] [facility] [employer] Other Start: 01-29-2021 End: 09-29-0434rpsvijfeinJnsjnm Zaky Other [employer] Other Start: 64-12-4623Ymedka outpatient visit 25 minutes Brandon ZakyFPG Pain ManagementStart: 75-93-3283Gtzpuu outpatient visit 25 minutesShnicolettef ChrisFPG Pain ManagementStart: 12-09-2020(Procedure) ShortBrandon [facility] CenterStart: 35-90-5181Pjvttx outpatient visit 25 minutesBrandon [facility] CenterStart: 09-28-2018 End: 40-55-8077Tgcqgls encounter procedureBETTRAULITO I [facility] Start: 09-25-2018 End: 41-19-5578Jhccsdx encounter procedureJACKELYN Godfrey [facility] Start: 08-02-2018 End: 76-50-1586Bwvjzdnilj and management of inpatientHancock County Health Systemtart: 07-22-2018 End: 41-41-0937Zqdgpxm [facility] Start: 07-21-2018 End: 78-79-3272Eynzgxb [facility]Ring[facility] Start: 07-19-2018 End: 80-52-1838Ieuqfjr encounter procedurePRESCOTT VA MEDICAL CENTERJANICE Godfrey [facility] Start: 06-27-2018 End: 09-31-7570Crkfrgv encounter procedureFLEMINGTON Hannah [facility] Start: 06-12-2018 End: 43-35-0964Yslcetk encounter [facility] Hannah [facility] Start: 05-18-2018 End: 84-05-0586Yywnrjb encounter procedurePRITI Patel [facility] Start: 04-07-2018 End: 45-92-3150Dhjanzbru department patient visitPRESCOTT VA MEDICAL CENTERJANICE Godfrey [facility] Systemtart: 02-02-2018 End: 51-53-4192Pivdcke encounter [facility] Start: 02-02-2018 End: 60-57-0820Tfixnlm encounter [facility] Start: 01-16-2018 End: 84-53-6294Zvcaaei encounter [facility] Start: 01-11-2018 End: 40-84-5111Bcqgfsd [facility]SSouth[facility] Start: 01-09-2018 End: 67-88-3886Pugvmns encounter procedureSSouthlake Center for Mental Health Start: 01-02-2018 End: 08-71-7129Bnwfgwc encounter [facility] Start: 12-16-2017 End: 86-28-9819Uxgpzzn encounter [facility] Start: 12-06-2017 End: 36-61-8602Sadyvln encounter [facility] Procedures DateProcedureProcedure DetailPerforming ClinicianStart: 97-54-2906Wa abdomen & pelvis w/contrast materialChaugust Albrecht MD Work Phone: Start: 90-26-2835Hcheg dip stick/tablet rgnt auto w/o microscopyChaugust Albrecht MD Work Phone: Start: 09-17-2024 End: 20-49-6436Ligdy metabolic panel calcium totalChaugust Albrecht MD Work Phone: Start: 20-66-9641Qakyxil function panelChaugust Albrecht MD Work Phone: Start: 71-49-2250Knrpt metabolic panel calcium total Chris Dimas MD Work Phone: Start: 18-94-5164Wjlqxsm of subtotal thyroidectomyJocharity Mayra Start: 52-61-2448SrfbyuazhzrBxcwjti Mouchli Start: 69-78-9806HnqjbaauwaydzmtbrhrisifmtoUvqmlnt Mouchli Start: 07-17-2022H/O: surgeryHistory of parotidectomy Brandon Juares DO Work Phone: start: 82-89-5057Mdicx chest X-rayNP-C Abdullahi Coronado Work Phone: Start: 09-38-3422Pekyt chest X-rayNP-C Abdullahi Coronado Work Phone: Start: 06-87-7832Apjdk chest X-rayNP-C Abdullahi Sola Work Phone: Start: 57-36-0559SKFMVBSTGHRE RINEStart: 09-28-2018 Continuous pulse oximetryGERRI RINEStart: 45-88-6498NIAPTELMC DEEP BREATHING AND COUGHINGGERRI RINEStart: 14-45-1065JMEXZMCR OXYGEN THERAPY PROTOCOLGERRI RINE Start: 52-37-5674HQQTRL PHYSICIAN (SPECIFY)JACKELYN RINEStart: 59-28-8212VLTFITC COMMUNICATIONGERRI RINEStart: 70-36-5144RIOGW SIGNSGERRI RINEStart: 09-28-2018 DISCHARGE PATIENTGERRI RINEStart: 20-22-3510Yqsga iv surg pathology gross&microscopic examGERRI RINEStart: 57-61-7974Zchkl test visual color cmprsn methsGERRI RINEStart: 09-53-8416AFNBCL PERIPHERAL IVGERRI RINE Start: 89-21-6031Rv abdominal real time w/image limitedGERRI RINEStart: 31-37-7996GHRWUFYND PATIENTGERRI RINEStart: 86-62-1431ECFETODU OXYGEN THERAPY PROTOCOLGERRI RINEStart: 34-24-0190Yahca nonstress testGERRI RINEStart: 47-69-7515Zfpke iv surg pathology gross&microscopic examGERRI RINEStart: 95-01-2422PSRBANYL OXYGEN THERAPY PROTOCOLGERRI RINEStart: 33-51-3295Boobn count complete automatedGERRI RINEStart: 07-45-5317Rbhprahymsiwq metabolic panelGERRI RINEStart: 64-57-7366Njeyj iv surg pathology gross&microscopic examGERRI RINE Start: 93-28-2281TNFWETVR PATIENTGERRI RINEStart: 60-40-8490NRUXMIYG REMOVAL JACKELYN RINEStart: 16-63-2567UHKZCJGQM DEEP BREATHING AND COUGHINGGERRI RINEStart: 13-51-5990OZUN CODEGERRI RINEStart: 46-03-7895PTHLYDYL OXYGEN THERAPY PROTOCOL JACKELYN RINEStart: 16-29-2129PGUZOC AND OUTPUTGERRI RINEStart: 12-84-4366FQHGJF PHYSICIAN (SPECIFY)JACKELYN RINEStart: 67-71-7764VVNNK INTERMITTENT PNEUMATIC COMPRESSION DEVICEGERRI RINEStart: 05-65-0674ZVUVBYMX CATHGERRI RINEStart: 63-72-2373RHDGT SIGNSGERRI RINEStart: 04-99-3233VYZTE CAREGERRI RINEStart: 42-46-5762Tjewvzk quantitative blood xcpt reagent stripGERRI RINEStart: 22-66-7323AANG GENERALGERRI RINEStart: 01-86-4469PSCUKDD STATUS (DIRECT)JACKELYN RINEStart: 84-56-4403Fmvcs nonstress testGERRI RINEStart: 70-41-2336Uxatw of blood/uric acidGERRI RINEStart: 56-03-7104Mlbkl count complete automatedGERRI RINEStart: 52-37-6142Kromnbycqtiss metabolic panelGERRI RINEStart: 08-02-2018 Lactate dehydrogenase ldhGERRI RINEStart: 07-40-3288KCDE AND SCREENGERRI RINE Start: 26-30-2801YNVSI INTERMITTENT PNEUMATIC COMPRESSION DEVICEGERRI RINEStart: 01-02-6262PHYDBA JUDGE CATHETERGERRI RINEStart: 14-20-0235NKLWIF PERIPHERAL IV JACKELYN RINEStart: 82-48-5480ADLJEZ AND OUTPUTGERRI RINEStart: 90-36-2251KDTHAHQ COMMUNICATIONGERRI RINEStart: 87-05-0258NSCHBT INFORMED CONSENTGERRI RINEStart: 14-56-6268Muqm screen class list aGERRI RINEStart: 35-16-6089Iynvsakejz microscopic onlyGERRI RINEStart: 50-69-0784Ehewp dip stick/tablet rgnt auto w/o microscopyGERRI RINEStart: 22-23-9868HUQSQA HEART TONESGERRI RINEStart: 49-51-7595DOGDBTICGFX -MONITORINGGERRI RINEStart: 18-47-3797Duci bld gluc mntr dev cleared fda spec home useGERRI RINEStart: 97-77-5738ZRMEYAU HEART TONESGERRI RINEStart: 40-43-0471SWFUVW PHYSICIAN (SPECIFY)JACKELYN RINEStart: 17-73-8592AMZHQ SIGNSGERRI RINEStart: 89-05-0675Zzwxkjy bacterial quanttative colony count urineGERRI RINEStart: 62-75-3331Hlrni of blood/uric acidGERRI RINE Start: 81-77-1185Oyshr count complete auto&auto difrntl wbcGERRI RINEStart: 33-25-1989Nnztszwtiyrus metabolic panelGERRI RINEStart: 43-53-3574Ggzwekilww other sourceGERRI RINEStart: 00-36-6604Cqofuqo total xcpt refractometry urine JACKELYN RINEStart: 87-68-0210SDLHTDBFT PATIENTGERRI RINEStart: 97-98-1814Hnewr count complete auto&auto difrntl wbcGERRI RINEStart: 27-79-6763Bhabpdzxwlkqb metabolic panelGERRI RINEStart: 17-05-1067CYDRYT PERIPHERAL IVGERRI RINEStart: 57-31-5662NPOQDN HEART TONESGERRI RINEStart: 67-78-7143AUWLENNGKNT -MONITORINGGERRI RINEStart: 24-52-9176FARH CLEAR LIQUIDGERRI RINEStart: 46-09-1139Jjzbd nonstress testGERRI RINEStart: 71-86-9015CHUV CODEGERRI RINE Start: 83-62-0704Qdjk bld gluc mntr dev cleared fda spec home useGERRI RINE Start: 99-29-1607PRVGFHJ HEART TONESGERRI RINEStart: 24-16-6145ZVUWKQ PHYSICIAN (SPECIFY)JACKELYN RINEStart: 78-97-6309IUEIPGJ STATUS (DIRECT)JACKELYN RINE Start: 78-61-2133KBUKL SIGNSGERRI RINEStart: 13-63-7144Klzcfvy bacterial quanttative colony count urineGERRI RINEStart: 11-96-5795Uojwzhqrzv microscopic onlyGERRI RINEStart: 29-93-2322Hgeod dip stick/tablet rgnt auto w/o microscopy JACKELYN RINEStart: 24-18-9319XEZKDZVAQ PATIENTGERRI RINEStart: 91-57-8542Wv preg uterus real time w/image dcmtn transvagGERRI RINEStart: 05-23-3180Vowgt of blood/uric acidGERRI RINEStart: 80-61-7652Ozkur count complete auto&auto difrntl wbcGERRI RINEStart: 07-37-9276Tcwefsrntqsve metabolic panelGERRI RINEStart: 77-15-1208Zynirsqsfs activityGERRI RINEStart: 18-62-2451Nmqrawfbirg timeGERRI RINEStart: 08-39-8671Zstwiawlrvkpxs time partial plasma/whole bloodGERRI RINE Start: 44-52-4093Ybbud biophysical profile w/o non-stress testingGERRI RINE Start: 55-60-6596CHSBFE HEART TONESGERRI RINEStart: 30-74-6337DCDUQAUSVTO -MONITORINGGERRI RINEStart: 11-15-6875WIUN NPO, NOWGERRI RINEStart: 07-19-2018 FULL CODEGERRI RINEStart: 31-85-3695VVFKIEA HEART TONESGERRI RINEStart: 21-17-5469KTZNUA PHYSICIAN (SPECIFY)JACKELYN RINEStart: 19-50-7634WYJJJ SIGNSGERRI RINEStart: 97-36-9175Wbnvmwc bacterial quanttative colony count urineGERRI RINE Start: 22-44-7493Qepcjer total xcpt refractometry urineGERRI RINEStart: 64-60-9374Uxhnsmzvii microscopic onlyGERRI RINEStart: 57-19-8950Dzeyi dip stick/tablet rgnt auto w/o microscopyGERRI RINEStart: 89-55-7424Ljkz bld gluc mntr dev cleared fda spec home useGERRI RINEStart: 48-80-4098Bezuofx tolerance test gtt 3 specimensGERRI RINEStart: 43-37-6031Zpmlqui bacterial quanttative colony count urineGERRI RINEStart: 83-33-7029KHFDYICSI PATIENTGERRI RINEStart: 13-77-3321JDVP GENERALGERRI RINEStart: 12-34-8703Nc preg uterus > 1st trimester abdl ea gestatioGERRI RINEStart: 18-92-5728Fx preg uterus after 1st trimest 1 gestationGERRI RINEStart: 34-88-7921Ye preg uterus real time w/image dcmtn transvagGERRI RINEStart: 29-38-8625Lhfjr count complete auto&auto difrntl wbc JACKELYN RINEStart: 48-93-6498Fhelzekcrjncc metabolic panelGERRI RINEStart: 59-56-5860Pnvja dip stick/tablet reagent auto microscopyGERRI RINEStart: 23-85-1090ZQJYECKHE PATIENTGERRI RINEStart: 47-25-7946Cs preg uterus > 1st trimester abdl ea gestatioGERRI RINEStart: 12-65-5799Vx preg uterus after 1st trimest 02/21 gestationGERRI RINEStart: 19-32-3450Vz preg uterus real time w/image dcmtn transvagGERRI RINEStart: 07-44-4101Trxlbnmsmz microscopic only JACKELYN RINEStart: 15-27-4371Wyeri dip stick/tablet rgnt auto w/o microscopyGERRI RINEStart: 29-44-0197OZHDES HEART TONESGERRI RINEStart: 05-18-2018 CONTRACTION -MONITORINGGERRI RINEStart: 72-18-6126EGGO GENERALGERRI RINEStart: 82-10-1950YICL CODEGERRI RINEStart: 39-35-9651Ocnw bld gluc mntr dev cleared fda spec home useGERRI RINEStart: 04-80-3588GBBPHV PHYSICIAN (SPECIFY)JACKELYN RINE Start: 36-79-2878NNTAX SIGNSGERRI RINEStart: 74-54-3492Nyziznudrc microscopic onlyGERRI RINEStart: 59-44-6729Ucfro dip stick/tablet rgnt auto w/o microscopy JACKELYN RINEStart: 80-05-3563GWZHVGYKN TX INTERMITTENTGERRI RINEStart: 04-07-2018 NEBULIZER TX INTERMITTENTGERRI RINEStart: 49-56-7833Cezlnzfbcy exam chest 2 viewsGERRI RINEStart: 30-64-5636Gllsk of troponin quantitativeGERRI RINEStart: 39-53-6925Nsffm count complete auto&auto difrntl wbcGERRI RINEStart: 04-07-2018 Comprehensive metabolic panelGERRI RINEStart: 23-31-4407Wmx routine ecg w/least 12 lds w/i&rGERRI RINEStart: 61-76-2556IZGLRHOY PROFILE IGERRI RINEStart: 02-06-1141VJJAROSY TYPE AND SCREENGERRI RINEStart: 11-51-7059Dtqagokosi glycosylated j5jXZDHA RINEStart: 79-09-5840WXWJBGTAV C ANTIBODYGERRI RINEStart: 83-45-0588ZPH SCREENGERRI RINEStart: 02-02-2018C.TRACHOMATIS N.GONORRHOEAE DNA, URINEGERRI RINEStart: 61-07-3691RYZLG CULTURE CLEAN CATCHGERRI RINEStart: 38-81-7117NHEJC DRUG SCREEN, COMPREHENSIVEGERRI RINEStart: 01-16-2018 Gonadotropin chorionic quantitativeGERRI RINEStart: 78-81-1124YVXZFAWDGYUBTUTFJ RINEStart: 84-94-7301Axgtdhkmzsat chorionic quantitativeGERRI RINEStart: 19-89-2401Bjamnmffrnwx chorionic quantitativeGERRI RINEStart: 01-02-2018 PROGESTERONEGERRI RINEStart: 85-98-2621LQCVBJHVODDDFG RINEStart: 12-06-2017 ESTRADIOLGERRI RINEStart: 49-31-9872Esfbezzftgk observation [Identifier] in Cervix by Cyto Emerson Juares DO Work Phone: appendectomyJodi Mayra Cesarean sectionJodi Mayra CholecystectomyJodi Mayra Gastric sleeveJodi Mayra History of thyroidectomyHistory of thyroidectomyJodi Mayra ParotidectomyJodi Mayra [phone]-JdA-2, Influenza & RSV (PCR)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/ANALYST-C Abdullahi Coronado Work Phone: [phone]-EgN-2, Influenza & RSV (PCR)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/ANALYST-C Abdullahi Coronado Work Phone: [phone]-XdC-2, Influenza & RSV (PCR)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/ANALYST-Jase Coronado Work Phone: Plan of Treatment DateCare ActivityDetailAuthorStart: 79-74-8298Okqfhpweo vaccinationInfluenza Vaccine (#1)[facility] HealthcareStart: 10-02-2024 End: 52-12-0211Kriihqu encounter lzwfevxur54/12/2025 9:00 AM EDT Office Visit [facility] [address] [address] Luz Thapa 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/ANALYST [address] [place] [address] [facility] OBStart: 53-94-6096Mmstzpvoo vaccinationBon [facility]bleStart: 94-29-5458Fqrbi panelLipidsNaval Medical Center PortsmouthStart: 10-26-4102Vkxrdvewb for malignant neoplasm of breastNONC HealthcareStart: 02-08-2024 End: 48-28-3793Llvmyau encounter qahmfykdw29/18/2024 2:30 PM EST Office Visit [facility] [address] [place] [id number] Brandon Juares, DO [address] [place] [address] [facility] CONTRERASYStart: 01-23-2024 End: 67-11-582586018575-tlpbmvhfucfoes D3 [Mass/volume] in Serum or PlasmaVitamin D 25 hydroxy Total Lab Routine Status post partial thyroidectomy (CMS/HCC) Expected: 01/23/2024 (Approximate), Expires: 11/08/2024N[facility] HealthcareComment on above: Expected: 01/23/2024 (Approximate), Expires: 11/08/2024Start: 01-23-2024 End: 59-74-2017Ofurusp [Mass/volume] in Serum or PlasmaCalcium Lab Routine Status post partial thyroidectomy (CMS/HCC) Expected: 01/23/2024 (Approximate), Expires: 11/08/2024[facility] HealthcareComment on above:Expected: 01/23/2024 (Approximate), Expires: 11/08/2024Start: 01-23-2024 End: 78-09-5034Nicsnfmcfw.intact [Mass/volume] in Serum or PlasmaPTH, intact Lab Routine Status post partial thyroidectomy (CMS/HCC) Expected: 01/23/2024 (Approximate), Expires: 11/08/2024[facility] HealthcareComment on above:Expected: 01/23/2024 (Approximate), Expires: 11/08/2024Start: 01-23-2024 End: 18-46-7416Zykwfsdwbsb [Units/volume] in Serum or PlasmaNOMS Healthcare Work Phone: comment on above:Expected: 01/23/2024 (Approximate), Expires: 11/08/2024Start: 01-23-2024 End: 27-20-4225Prdncmbohyutvmfl (T3) [Mass/volume] in Serum or PlasmaT3 Lab Routine Status post partial thyroidectomy (CMS/HCC) Expected: 01/23/2024 (Approximate), Expires: 11/08/2024N[facility] HealthcareComment on above:Expected: 01/23/2024 (Approximate), Expires: 11/08/2024Start: 11-09-2023 End: 59-85-6974Shyrbpt encounter procedureNOMS ENT SANDUSKYComment on above: ArrivedStart: 10-24-2023 End: 811309-aesstkrffnkvjb D3 [Mass/volume] in Serum or PlasmaVitamin D 25 hydroxy Total Lab Routine Thyroid mass (CMS/HCC) Expected: 10/24/2023 (Approximate), Expires: 10/11/2024N[facility] HealthcareComment on above:Expected: 10/24/2023 (Approximate), Expires: 10/11/2024Start: 10-24-2023 End: 06-61-4285Fmcndnh [Mass/volume] in Serum or PlasmaCalcium Lab Routine Thyroid mass (CMS/HCC) Expected: 10/24/2023 (Approximate), Expires: 10/11/2024 N[facility] HealthcareComment on above:Expected: 10/24/2023 (Approximate), Expires: 10/11/2024Start: 10-24-2023 End: 42-38-8725Eleswmraht.intact [Mass/volume] in Serum or PlasmaPTH, intact Lab Routine Thyroid mass (CMS/HCC) Expected: 10/24/2023 (Approximate), Expires: 10/11/2024NOMS HealthcareComment on above:Expected: 10/24/2023 (Approximate), Expires: 10/11/2024Start: 10-24-2023 End: 15-77-1140Zbxptfgvlem [Units/volume] in Serum or PlasmaNONC Healthcare Work Phone: comment on above:Expected: 10/24/2023 (Approximate), Expires: 10/11/2024Start: 10-24-2023 End: 1984Qapuinmosopjwiqe (T3) [Mass/volume] in Serum or PlasmaT3 Lab Routine Thyroid mass (CMS/HCC) Expected: 10/24/2023 (Approximate), Expires: 10/11/2024NONC HealthcareComment on above:Expected: 10/24/2023 (Approximate), Expires: 10/11/2024Start: 66-10-2216KEZPF-19 Vaccine ( season)COVID- 19 Vaccine ( season)[facility]: 25-70-6296BADYA-19 Vaccine ( season)COVID-19 Vaccine ( season)[facility]Start: 03-15-6029Juexiccve vaccinationInfluenza Vaccine (#1)[facility] HealthcareStart: 10-12-2023 End: 69-09-7326Lnwcstr encounter flrfaovme84/21/2024 3:15 PM EDT Office Visit [facility] [address] [place] [address] Brandon Juares W, DO [address] [place] [address] ArrivedNOMS ENT SANDUSKYComment on above:ArrivedStart: 50-66-9129Zvijg chemistryAvita Health System Bucyrus Hospitaltart: 12-28-2021 End: 52-14-5910OabnnrpmvAvita Health System Bucyrus Hospitaltart: 18-90-4688Zajwkdpqh culture of sputumAvita Health System Bucyrus Hospitaltart: 61-39-3346Jdhonelq admissionAvita Health System Bucyrus Hospitaltart: 40-49-8295YixqxertwAvita Health System Bucyrus Hospitaltart: 85-91-0895Insetdgd admissionAvita Health [facility]: 29-33-9712Fzwtn chest X-rayXR chest 1V portableAvita Health System [facility] Hospitaltart: 72-72-9973FQ Chest Single viewAvita Health System [facility] Hospitaltart: 05-48-8112Jaaxcatas vaccinationINFLUENZA (#1)[facility]: 45-21-0272HDFOZSZTJD ASSESSMENTDEPRESSION ASSESSMENTMercy Health St. [facility] Hospitalt[facility]: 65-38-5349NRSYF-19 VACCINE (3 - Booster for Pfizer series)COVID-19 VACCINE (3 - Booster for Pfizer series)[facility]: 99-87-3881Fxxeqzman for malignant neoplasm of cervixNOMS HealthcareStart: 61-32-9643OBV TESTINGHPV TESTINGMercy Health St. [facility] Hospitaltart: 07-85-1882Rajgyeqok for malignant neoplasm of cervixNOMS HealthcareStart: 80-06-7330AGC TESTINGPAP TESTINGUniversity [facility]als [facility] Start: 49-97-0669EXcH/Tdap/Td vaccine (1 - Tdap)DTaP/Tdap/Td vaccine (1 - Tdap) [facility]: 92-10-1732Vzcjgofnr B vaccine (1 of 3 - 19+ 3- dose series)Hepatitis B vaccine (1 of 3 - 19+ 3-dose series)[facility]: 83-10-2066Ihoxc microalbumin profileDTAP,TDAP,TD (1 - Tdap) [facility]: 54-45-3471XXHFYV PCP TEAM CHRONIC DISEASE VISITANNUAL PCP TEAM CHRONIC DISEASE VISITMercy Health St. [facility] Hospitalt[facility]: 57-92-8881CYKVLBKAG C SCREENINGHEPATITIS C SCREENINGMercy Health St. [facility]: 78-46-2180ASA SCREENINGHIV SCREENINGMercy Health St. [facility] Hospitalt[facility]: 35-30-0714THYTMRTLESJRCIHJGWIBSxerprbxu Clinic Start: 07-27-6388Nyleirqea vaccine (1 of 2 - 13+ 2-dose series)Varicella vaccine (1 of 2 - 13+ 2-dose series)[facility]: 05-16-4725Fbwsi depression screening assessmentDEPRESSION SCREENINGMercy Health St. [facility] Hospitaltart: 09-34-5902Asnnavywoh ScreenDepression ScreenBon [facility]bleStart: 15-36-9016BEVFGOUJDHFY (1 - PCV)PNEUMOCOCCAL (1 - PCV)[facility]: 27-34-2451BGBYV-19 VACCINE (#1)COVID-19 VACCINE (#1)[facility]: 76-44-4992RSVQRGJFV B (1 of 3 - 3-dose series)HEPATITIS B (1 of 3 - 3-dose series)[facility] End: 69-20-1243Cbkp and TIBCBon [facility] PrebleComment on above:One Time for 1 Occurrences starting 06/11/2024 until 06/11/2024Patient EducationViral Syndrome (DC)[facility] Work Phone: Patient referralAden[facility] Work Phone: [facility] Immunizations Immunization DateImmunizationNotesCare BhdrncuiQasfyqqx50-07-0050GOSMI-39 mRNA, Comirnaty (Pfizer)JENNIFER-Jase Coronado Work Phone: [facility]01-20-2021COVID-19 mRNA, Comirnaty (Pfizer)ERAN Coronado Work Phone: [facility] Payers DatePayer CategoryPayerPolicy [id number] Health Insurance [id number] Health Insurance [id number] [id number] 2020Medicaid [place] MEDICAID [id number] 2019-[facility] [phone] [address] [place] [address] Medicaid [id number] [id number] 2.0.1.146021.3.57[id number] 2.840.1.215720.3.57[id number] 2.0.1.838586.3.57[id number] 2.840.1.273186.3.57[id number] 2.840.1.777403.3.57[id number] 2.840.1.916432.3.57[id number] 2.840.1.655500.3.579.2.56977-27-2489Pjveigu66353442 2.16840.1.583572.3.579.2.23338-47-4218Eybgcri81088704 2.16840.1.452458.3.579.2.49631-09-5787Jtnsvlt71146952 2.840.1.141394.3.579.2.65713-98-1645Ukewlmg88368463 2.16.840.1.165562.3.579.2.63422-20-4127Fhxqyqw95832751 2.16840.1.368028.3.579.2.34989-11-2091Nbrrsfm02742153 2.16840.1.852510.3.579.2.88191-42-4784Chhycud84492332 2.840.1.431437.3.579.2.36942-12-9357Lrmsbsd18143093 2.16840.1.290289.3.579.2.73509-42-1108Pppkfin12137551 2.0.1.421341.3.579.2.97381-26-1779Lvbizpb50843519 2..1.190943.3.579.2.46782-58-8514Aybqptl20439243 2..1.427603.3.579.2.31436-28-0926Wehxezd8390450 2..1.669756.3.579.2.63581-84-1786Nqbvzkg98801022 2..1.852219.3.579.2.83958-28-8738Seedezo15749971 2..1.865793.3.579.2.31541-14-2714Qhfgxfv44550514 2..1.525844.3.579.2.30173-33-0497Kpdrlnw39586913 2..1.851602.3.579.2.82576-42-4026Xcbxzqa56291009 2.840.1.908505.3.579.2.11971-37-8652Ccnerxe84678327 2.0.1.621514.3.579.2.32487-81-5551Mxxfkrw74461442 2.16.840.1.950432.3.579.2.03204-12-8897Lyxctiw45212735 2.840.1.450737.3.579.2.50085-65-5364Gnpsdwk17298006 2.840.1.434767.3.579.2.43541-31-6756Mjptyea53454220 2.840.1.296442.3.579.2.60386-63-9525Uxiuujt88201682 2.0.1.301625.3.579.2.662 1950Crlgzbm16565483 2.840.1.930344.3.579.2.99860-27-2733Vplqyvk62107157 2.840.1.453565.3.579.2.76628-40-2027Yszjdrd59843099 2.840.1.836929.3.579.2.86165-60-1417Ilvlnry74148381 2.0.1.893663.3.579.2.44299-15-8941Ragladw72659515 2.840.1.242698.3.579.2.99576-54-7807Loefafx30167325 2.840.1.055851.3.579.2.71214-72-9578Dwhxwei35115175 2.840.1.496034.3.579.2.22417-79-2220Brihihn29476690 2.840.1.614059.3.579.2.66405-29-0051Itfwkeb13550920 2.840.1.443399.3.579.2.63964-13-6610Yeqeahg2710758 2.840.1.602988.3.579.2.451935-60-1921Bzbpgjp8633027 2.16.840.1.094806.3.579.2.155668-82-0796Bncxczr2302186 2.16.840.1.403365.3.579.2.142082-39-3742Lptxxxq8692320 2.16840.1.671987.3.579.2.303499-27-7955Kggcvzv9955412 2.16840.1.224725.3.579.2.215502-03-5130Zwnpdxj8636608 2.840.1.352919.3.579.2.818552-43-4538Rxzkbua736747 2..1.747361.3.579.2.059598-39-9419Dqhqogq74260521 2.0.1.219295.3.579.2.91924-59-1982Jqmqgiq30539049 2.840.1.962371.3.579.2.01354-86-8146Lwdwaxn46789140 2.0.1.136958.3.579.2.71178-68-8843Zczgsmn49297949 2..1.236828.3.579.2.53903-24-4625Qxjuilm37141312 2.0.1.739998.3.579.2.98185-78-9303Pontxlb81420840 2.0.1.346935.3.579.2.88663-57-1770Uynbrnw66370748 2.16840.1.874050.3.579.2.36022-85-5713Bbvicdv72565990 2.16840.1.545157.3.579.2.56671-80-2606Yhyzdwj62725707 2.16.840.1.470690.3.579.2.93765-61-2091Saqnkku51924152 2.16.840.1.604521.3.579.2.18120-16-2200Dsjjnrz22638613 2.16.840.1.052203.3.579.2.07624-79-6841Osyntho94678639 2.16.840.1.654645.3.579.2.07126-86-6667Gvoeeja60729561 2.16.840.1.865094.3.579.2.92197-68-6890Ijebyhd350824252755 2.16.840.1.145884.19 Dtjinjr096288040 59244367-gn59-8852-2msj-q8t1x1656880Hcrnifw89338775 2.840.1.083545.3.579.2.385Zzrtvzf39778700 2.840.1.252755.3.579.2.531 Jtaqkzr00124767 2.840.1.472913.3.579.2.531 Social History DateTypeDetailFacilityUnknown if ever smokedNosaint joseph hospital west Codewars Other Start: 10-12-2023 End: 72-31-9113Ffq [facility] End: 24-08-3828Cqhslyf smoking status NHISNever smoked tobaccoUniversity Hospitals Cleveland Medical Center Start: 03-05-2015 End: 39-31-3285Fmmrwvx use and exposureSmokeless tobacco non-userMercy Health St. [facility] Hospitaltart: 10-02-2021 End: 24-23-8192Shbmbrv intakeLifetime non-drinker (finding)[facility] Start: 09-37-4458Nmf [facility]igned [facility]: 09-18-2021 End: 43-15-6967Fbjodtvb to SARS-CoV-2 (event)Not sureUniversity Hospitals Cleveland Medical Center Work Phone: Tobacco smoking statusNeverTogus Va Medical Center BellevueTobaRiverview Health InstituteComment on above:denies Tobacco smoking statusProvidence Hospitaltart: 10-12-2023 End: 06-33-0575Fqbchnxih beverage intakeEx-drinker (finding)[facility] Start: 10-12-2023 End: 92-16-9420Hlkncnb of Social functionNOMS HealthcareStart: 28-09-1169Gqganzl Comment2 cans diet pepsiNOMS HealthcareStart: 32-12-0038Mox assigned at Not on fileNONC HealthcareStart: 05-07-2021 End: 06-33-3113Numkbcvij beverage intakeCurrent non-drinker of alcohol (finding) [facility]Start: 88-53-1414Clkdhxv CommentrareBon [facility] HealthStart: 58-18-7201KihOsaeok (finding)[facility] HealthHow often to you have a drink containing alcohol?NeverBon zhouwuNEGATED: Highlighted rowStart: NINFHistory of tobacco usePassive smokerUniversity Hospitals Cleveland Medical Center Medical Equipment Procedure CodeEquipment CodeEquipment Original TextEquipment IdentifierDatesPen Ophelia 31G X 5 MMStart: 35-46-7672Dvr-O-Yomi Ligating Tuab473448_iklSqebl: 09-28-2018 Goals DatePatient GoalDesired Activity/State Functional Status QcuwOipuhlnztpZzzvkiJkrbtqdq22-59-1274Ybrvljygmc StatusN/[facility]ive Luyqys39-40-5662Ztvkjdtbar StatusN/[facility]07-11-2024Functional StatusN/[facility] 29-09-1951Lyytdkqmld StatusN/[facility]11-07-2022Functional statusPatient at BaselineKing[facility] Work Phone: [phone]) [phone]tcznwx statusPatient at Baseline [facility] Work Phone: Bon SecSocialSci HealthBon [facility] Health Mental Status IzjyWslyoldpotCyjbfaUayhfixv22-35-3120Pytijpljp functionCognitive Status Patient at [facility] Work Phone: 1(659) 237-18610383478-89-9759Hdyhkuqkm functionCognitive Status Patient at [facility] Work Phone: Clinical Notes 11-13-2020 to 09-17-2024 Note Date & RiycYxiuXrtwbuvj65-72-5740 Hospital Discharge instructions* Discharge Instructions* Vida Albrecht [...] sent through Care Everywhere. * Abdominal Pain (Ugandan) documented in this encounterBon [facility]07[facility]-2025 Miscellaneous Notes* Telephone Encounter - Luis Felipe Mckenzie - 09/11/2024 1:56 PM EDT scheduled * Telephone Encounter - Melanie Espinoza LPN - 09/11/2024 11:23 AM EDT Referral from Cleo ALVAREZ to Office for Abd./Pelvic pain, NEW patient offer either provider documented in this encounterAlvin J. Siteman Cancer CenterBdkywoayxz78-40-3027 Telephone encounter Note* Telephone Encounter - Luis Felipe Mckenzie - 09/11/2024 1:56 PM EDT scheduled [facility] Cancer CenterGkglfdjppc00-28-7002 Telephone encounter Note* Telephone Encounter - Melanie Espinoza LPN - 09/11/2024 11:23 AM EDT Referral from Cleo ALVAREZ to Office for Abd./Pelvic pain, NEW patient offer either provider [facility] Cancer CenterOuqkiedezc61-34-0281 NotePatient Education Obstetrics and Gynecology Pelvic Pain, [...] Follow these instructions at home: ??? Take vfiy-dtl-rtybhdp and prescription medicines only as told by [...] provider. Document Revised: 06/16/2021 Document Reviewed: 06/16/2021 [employer] Patient Education ? 2023 SumUp.[facility] 11-09-2023 History of Present illness Narrative* Brandon [...] (CMS/HCC) Comments: See above documented in this encounterCassandra Ville [address]Llchzwwczg56-28-8625 History of Present illness Narrative* Brandon Juares [...] for this visit: Status post partial thyroidectomy ([facility]) (Primary) Comments: Patient given postoperative wound instructions, I will see her back in 1 month with lab work Thyroid mass ([facility]) Comments: See below Orders: - T4; Future - T3; Future - TSH; Future - PTH, intact; Future - Calcium; Future - Vitamin D 25 hydroxy Total; Future - T4 - T3 - TSH - PTH, intact - Calcium - Vitamin D 25 hydroxy Total Low vitamin D level Comments: High-dose vitamin-D for 3 months. documented in this [facility]07-15-2024 Hospital Discharge instructions Patient Education 09/05/2023 13:52:58 Endoscopy, Care After Procedure [facility]) Endoscopy Care After Procedure Please read the instructions outlined below and refer to this sheet in the next few weeks. These discharge instructions provide you with general information on caring [facility] Your doctor may also give you [...] blood. Document Released: 09/21/2004 Document Re-Released: 08/01/2006 [employer] Patient Information [employer] 09/05/2023 13:52:53 Hemorrhoids, Ppfa-ys-Fvah Hemorrhoids Hemorrhoids are swollen veins that may [...] 3 times a day. General instructions Take slvr-osf-fmzorls and prescription medicines only as told by [...] provider. Document Revised: 08/19/2021 Document Reviewed: 08/19/2021 [employer] Patient Education 2022 [employer]Up. 09/05/2023 13:52:50 Colonoscopy, Care After Surgery Salam (CUSTOM) Colonoscopy Care After Surgery Please read the instructions outlined below and refer to this sheet in the next few weeks. These discharge instructions provide you with general information on caring for yourself [facility]. Your doctor may also give you [...] 09/01/2023 14:18:59 With:Vinay INGRAM, Stefan Martinez, TA, [facility] Address: When: Unknown Comments:Call for any problems. The office will reach out in about one week from procedure date. [facility]07-15-2024 NoteProgress Note-Physician Patient: MORRO MALONEY Age: 38 years Sex: Female : 1985 Associated Diagnoses: None Author: Arden Arambula Jr., DO Postoperative Information Postoperative disposition: Postoperative disposition: Home. Optimetrix number: Optimetrix number [id number]. Anesthetic utilized: General. Physical Examination Vital Signs [...] to Ambulatory Surgery Unit, and To home ).[facility] HospitalComment on above:Result Comment: Electronically Signed By: Arden Arambula Jr., DO.br\Date and Time Signed: 09/05/23 14:03 [id number] Evaluation + Plan note Extracted from:Title:ANES Post-operative Note - GeneralAuthor:Arden Arambula Jr., DO GDate:09/05/23 Plan Transfer/Discharge: Transfer/Discharge Discharge when meets criteria ( From PACU to Ambulatory Surgery Unit, and To home ). Extracted from:Title:ANES Pre-operative Note - AdultAuthor:Arden Arambula Jr., DO GDate:09/05/23 Plan [place] [employer] of Anesthesiologists (ASA) physical status classification: Class II. Anesthetic Preoperative Plan: Anesthesia General. Future Appointments Appointment Date:09/22/2023 10:15:00 AM Scheduled Provider:Stefan Mclean MD Location:[facility] [place] Appointment Type:[facility] Follow Up Future Scheduled Tests Laboratory* CBC w/ Auto Diff 10/10/23 * CBC w/ Auto Diff 08/08/23 * CBC w/ Auto Diff 08/22/23 * Comprehensive Metabolic Panel 10/10/23 * Ferritin 10/10/23 * Folate Level 10/10/23 * Iron Level 10/10/23 * Iron Percent Saturation 10/10/23 * Transferrin 10/10/23 [facility]07-15-2024 NotePatient Education - Text Endoscopy Care After Procedure Please read the instructions outlined below and refer to this sheet in the next few weeks. These discharge instructions provide you with general information on caring [facility] Your doctor may also give you [...] Document Re-Released: 08/01/2006 ExitCare? Patient Information ?2009 [employer]. Colonoscopy Care After Surgery Please read the instructions outlined below and refer to this sheet in the next few weeks. These discharge instructions provide you with general information on caring for yourself [facility]. Your doctor may also give you [...] around the opening o (more content not included)...[facility]07-15-2024 NoteColonoscopy Procedure Report Patient: MORRO MALONEY Age: 38 years Sex: Female : 1985 Associated Diagnoses: None Author: Stefan Mclean MD Pre-Procedure Procedure Date 09/05/2023 13:32:00 . Procedure Type: Colonoscopy. Procedure provider Performed by Stefan Mclean MD. Current history and physical Documented on chart. Appendectomy (569841427). Gastric sleeve (8175272887). Cholecystectomy (17436399). delivery (4026665544). Parotidectomy (621390153).. Past Medical History No active or resolved past medical history items have been selected or recorded.. Family History Ulcerative colitis Father Grandparent . Procedure History Appendectomy (525929675). Gastric sleeve (6381697137). Cholecystectomy (11779130). delivery (5986161365). Parotidectomy (543339945).. Colorectal neoplasm risk assessment Average risk. Informed [...] q4hr for wheezing, 18 gram, Refill(s) 5, [facility]/pharmacy #[id number], 161, cm, 10/18/22 14:05:00 EDT, Height/Length Dosing, 105.6, kg, 10/18/22 13:58:00 EDT, Weight Dosing folic acid 1 mg Tab: 1 mg = 1 tab(s), Oral, Daily, # 90 tab(s), Refills(s) 4, Pharmacy: [facility]/pharmacy #[id number], 161, cm, 08/15/23 11:32:00 EDT, [...] benefit from capsule endoscopy to assess for anemiaGood Samaritan HospitalComment on above:Other Comment: Missing Attachment - attachment storage system not supported [id number] Can be viewed in source system Missing Attachment - attachment storage system not supported [id number] Can be viewed in source systemMissing Attachment - attachment storage system not supported [id number] Can be viewed in source systemMissing Attachment - attachment storage system not supported [id number] Can be viewed in source -[id number] NoteProgress Note-Physician Patient: MORRO MALONEY Age: 38 [...] q4hr for wheezing, 18 gram, Refill(s) 5, [facility]/pharmacy #[id number], 161, cm, 10/18/22 14:05:00 EDT, Height/Length Dosing, 105.6, kg, 10/18/22 13:58:00 EDT, Weight Dosing folic acid 1 mg Tab: 1 mg = 1 tab(s), Oral, Daily, # 90 tab(s), Refills(s) 4, Pharmacy: [facility]/pharmacy #[id number], 161, cm, 08/15/23 11:32:00 EDT, [...] list: All Problems Asthma / SNOMED CT 369058624 / Confirmed Bloating / SNOMED CT 416239344 / Confirmed Cyst of thyroid / SNOMED CT 457801942 / Confirmed Difficulty swallowing / SNOMED CT 51779002 / Confirmed Elevated creatine kinase / SNOMED CT 9251461155 / Confirmed Elevated glucose / SNOMED CT 6812287321 / Confirmed Elevated WBCs / SNOMED CT 544630068 / Confirmed Enlarged thyroid gland / SNOMED CT 1839276 / Confirmed Fatigue / SNOMED CT 187217930 / Confirmed Iron deficiency anemia / SNOMED CT 632970127 / Confirmed Low back pain / SNOMED CT 580340160 / Confirmed Shortness of breath / SNOMED CT 927978839 / Confirmed Spondylosis / SNOMED CT 30862600 / Confirmed Thyroid nodule / SNOMED CT 680471248 / Confirmed Weight gain / SNOMED CT 76766186 / Confirmed Weight loss / SNOMED CT 510338973 / Confirmed Wellness examination / SNOMED CT 134704053 / Confirmed Histories Past Medical History: No active or resolved past medical history items have been selected or recorded. Procedure history: Appendectomy (103492779). Gastric sleeve (8767663762). Cholecystectomy (90356278). delivery (6891400712). Parotidectomy (465396538). Social History Social & Psychosocial Habits Alcohol [...] Respirations are non-labored. Cardiovascular: Regular rhythm. Plan [place] [employer] Anesthesiologists (ASA) physical status classification: Class II. Anesthetic Preoperative Plan: Anesthesia General.[facility] Comment on above:Result Comment: Electronically Signed By: Arden Arambula Jr., DO\Date and Time Signed: 09/05/23 13:01 [id number] Evaluation + Plan note Future Scheduled Tests Laboratory* CBC w/ Auto Diff 08/22/23 [facility] 06-18-2024 Hospital Discharge instructions Follow Up Care 08/09/2023 09:01:05 With:Jose MAY, Quyen Pozo, ONC Address: [facility] [address] [place] [address] [place] [phone] When: Unknown Comments:refer to GI to consider endoscopy for iron deficiency anemia.- if none in [place], [facility] here [facility] [place] 1mg daily- send 90 day supply [facility], iron studies, folate in 8wksfollow-up in 8wks with 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/ANALYST [facility]06-17-2024 Evaluation + Plan note Future Scheduled Tests Laboratory* CBC w/ Auto Diff 10/10/23 * CBC w/ Auto Diff 08/08/23 * CBC w/ Auto Diff 08/22/23 * CBC w/ Auto Diff 08/29/23 * Comprehensive Metabolic Panel 10/10/23 * Ferritin 10/10/23 * Folate Level 10/10/23 * Iron Level 10/10/23 * Iron Percent Saturation 10/10/23 * Transferrin 10/10/23 [facility]06-17-2024 Evaluation + Plan note Future Scheduled Tests Laboratory* CBC w/ Auto Diff 10/10/23 * CBC w/ Auto Diff 08/08/23 * CBC w/ Auto Diff 08/22/23 * Comprehensive Metabolic Panel 10/10/23 * Ferritin 10/10/23 * Folate Level 10/10/23 * Iron Level 10/10/23 * Iron Percent Saturation 10/10/23 * Transferrin 10/10/23 [facility] 06-17-2024 Evaluation + Plan note Future Scheduled Tests Laboratory* CBC w/ Auto Diff 08/08/23 * CBC w/ Auto Diff 08/22/23 [facility] 06-12-2024 Hospital Discharge instructions Patient [...] supplement. 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 Surgery or additional testing procedures to determine the cause of your anemia. You may need repeat blood tests to determine whether treatment is working. If the treatment does not seem to be working, you may need more tests. Follow these instructions at home: Medicines Take ajgt-vfy-mlmhzir and prescription medicines only as told by [...] to keep your urine pale yellow. Take iype-tjm-trqpzvc or prescription medicines. Eat foods that are [...] the cause of your iron deficiency. Take yqux-mtq-qdptlbl and prescription medicines only as told by [...] provider. Document Revised: 03/17/2022 Document Reviewed: 03/17/2022 [employer] Patient Education 2022 [employer]. 08/03/2023 14:14:52 Shortness of Breath, Adult Shortness [...] to any changes in your symptoms. Take vbzh-yoj-cxthgvr and prescription medicines only as told by [...] provider. Document Revised: 09/26/2021 Document Reviewed: 09/26/2021 [employer] Patient Education 2022 [employer]Up. 08/03/2023 14:14:52 Anemia Anemia Anemia is a [...] spleen. Follow these instructions at home: Take uyjv-bsy-esrocfb and prescription medicines only as told by [...] provider. Document Revised: 05/03/2022 Document Reviewed: 05/03/2022 [employer] Patient Education 2022 [employer]Up. Follow Up Care 08/03/2023 10:47:32 With:José Antonio Benitez Address: [facility] [address] [place] [address] [place] [address]- When:08/06/2023 13:33:53 Comments:Make sure to follow-up with as discussed. Return to the emergency room if your symptoms get worse or any new symptoms. With:Cleo Hernandez Address:Unknown When:Within 3 Day(s) [facility]06-12-2024 Evaluation + Plan noteExtracted from: Title:ED NoteAuthor:Elizabeth [...] Diagnostic Tests Pending * Path. Review 08/03/23 [facility]2023 Evaluation + Plan note Diagnostic Tests Pending * T3 Free 10/18/22 [facility]11-06-2022 History and physical note Author Nan Brand [facility] December 27, 2021 6:03pmNote Date/TimeNov2021 5:46pm[address] [address] Hospitalist H&P Signed Patient: Morro Maloney MR#: [id number] : 1985 Acct:[id number] Age/Sex: 36 / F Adm Date: 2 Loc: ER Room: Type: [facility] ER Attending Dr: Copies to: [...] reviewed [facility]?: Yes Medical History Anxiety [...] % (Auto) 23.6 % (.) 12/27/21 14:42 Otoe % (Auto) 5.7 % (.) 12/27/21 14:42 Eos % (Auto) 1.9 % (.) 12/27/21 14:42 Baso % (Auto) 0.8 % (.) 12/27/21 14:42 Neut # (Auto) 8.6 x10E3/uL (1.8-7.7) H 12/27/21 14:42 Lymph # (Auto) 3.0 x10E3/uL (1.00-4.8) 12/27/21 14:42 Otoe # (Auto) 0.7 x10E3/uL (0.0-0.8) 12/27/21 14:42 [...] <Electronically signed by Nan Brand MD> 12/27/21 1675 [facility] [place] Work Phone: 1(834) 938-319210-20-2022 History of Present illness Narrative* Meenakshi Obrien MD - 12/10/2021 11:05 AM EDT ASSESSMENT/PLAN: 1. Monocular esotropia, left eye - ICD9: 378.01, ICD10: H50.012 (primary diagnosis) 2. Diplopia - ICD9: 368.2, ICD10: H53.2 - acute onset left esotropia with diplopia for 6 months - worked up with MRI brain that was normal - POW#1 s/p [facility] - great alignment - rare diplopia. Not [...] 11:05 AM documented in this encounterUniversity Hospitals Cleveland Medical Center10-07-2022 Miscellaneous Notes* Telephone Encounter - Enid Tafoya - 11/27/2021 10:43 AM EDT Spoke to patient; relayed message below. Meenakshi Obrien I just heard from the head anesthesiologist that we can proceed with her surgery on Tuesday. Thanks! * Telephone Encounter - Enid Tafoya - 11/27/2021 9:49 AM EDT Morro Maloney [facility] [id number] 11/26/21 Fv 11/30/21 Sx Patient is calling [...] eyes - Proceed with strabismus surgery - [facility]. Consent obtained. - recent asthma exacerbation. Will check with anesthesia. Follow-up in: Surgery documented in this encounterUniversity Hospitals Cleveland Medical Center10-06-2022 History of Present illness Narrative* [...] eyes - Proceed with strabismus surgery - [facility]. Consent obtained. - recent asthma exacerbation. Will [...] 9:16 AM documented in this encounterUniversity Hospitals Cleveland Medical Center09-29-2022 Progress note Author Jp Barba [facility] November 19, 2021 10:22pmNote Date/TimeSept2021 10:00am[place] [address] Hospitalist Progress Note Signed Patient: Morro Maloney MR#: [id number] : 1985 Acct:[id number] Age/Sex: 36 / F Adm Date: 2 Loc: Room: [address] [place] [address] Type: DIS IN Attending Dr: Jp Barba [...] <Electronically signed by Jp Barba DO> 11/19/212221 [facility] Work Phone: 1(862) 984-837009-28-2022 Progress note Author Jp Barba [facility] November 18, 2021 1:57pmNote Date/TimeSeptember 2021 1:50pm[place] [address] Hospitalist Progress Note Signed Patient: Morro Maloney MR#: [id number] : 1985 Acct:[id number] Age/Sex: 36 / F Adm Date: 2 Loc: Room: [address] [place] [address] Type: ADM IN Attending Dr: Jp Barba [...] signed by Jp Barba DO> 11/18/21 1357 [facility] Work Phone: 1(280) 790-696509-28-2022 History and physical note Author Andres Espana [facility] November 18, 2021 4:53amNote Date/TimeSeptember 2021 4:53[place] [address] Hospitalist H&P Signed Patient: Morro Maloney MR#: [id number] : 1985 Acct:[id number] Age/Sex: 36 / F Adm Date: 2 Loc: 3T Room: [address] [place] [address] Type: ADM INOo Attending Dr: Andres Mcgee [...] % (Auto) 16.7 % (.) 11/18/21 02:42 Otoe % (Auto) 5.6 % (.) 11/18/21 02:42 Eos % (Auto) 3.1 % (.) 11/18/21 02:42 Baso % (Auto) 0.8 % (.) 11/18/21 02:42 Neut # (Auto) 8.9 x10E3/uL (1.8-7.7) H 11/18/21 02:42 Lymph # (Auto) 2.0 x10E3/uL (1.00-4.8) 11/18/21 02:42 Otoe # (Auto) 0.7 x10E3/uL (0.0-0.8) 11/18/21 02:42 [...] signed by Andres Mcgee MD> 11/18/21 0453 [facility] Work Phone: 1(749) 769-249509-21-2022 Instructions* Patient Instructions* Homa Mack PA-C - 11/11/2021 11:50 AM EDT PATIENT PREOPERATIVE INSTRUCTIONS Self has scheduled you for your procedure at this surgery center: [facility]: [phone] --[address] [place] [address]. Please read below carefully for your personalized [...] Procedures: - YOU MUST HAVE A RESPONSIBLE AIRLINE STATION AGENT TAKE YOU HOME. A [employer] TEAM LEADER OR FIELD SUPPORT ENGINEER CANNOT BE MADE A RESPONSIBLE AIRLINE STATION AGENT. - We recommend that a responsible person [...] Advance Directive, please fax a copy to [phone] or email to for it to be [...] Mack PA-C documented in this encounterUniversity Hospitals Cleveland Medical Center09-21-2022 History and physical note * Homa Mack PA-C - 11/11/2021 11:20 AM EDT PREANESTHESIA CONSULT CLINIC TELEHEALTH VISIT Patient has been identified by name and date of : Yes This is a virtual visit using [employer] video visit. It require patient-provider interaction for [...] 06/2021 Neuro: No history of TIA's, stroke, SPRAYER INSECTICIDE tumor, impaired sensorium, hemiplegia, paraplegia or quadraplegia. No neurological symptoms or problems. Respiratory: No current cough or dyspnea, or pneumonia in the past 6 weeks.+asthma- last used rescue inhaler 1 week ago +PATRICE- mild per patient and did not require CPAP Cardiovascular: No history of HTN requiring medication, no history of angina, CHF, AL, cardiac surgery or stents. Denies rest pain, gangrene or revascularization/amputation for PVD. No history of cardiovascular symptoms or problems. 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 I spent more than 21-40 minutes jhov-pl-jiiz with the patient and over half the time was devoted tocounseling and/or coordination of care. This is a virtual visit. It required patient-provider interaction for the medical decision making as documented above. SIGNATURE: Homa Mack PA-C PATIENT NAME: Morro Maloney DATE: November 11, 2021 TIME: 11:10 AM PAGER/CONTACT #: documented in this encounterUniversity Hospitals Cleveland Medical Center08-15-2022 Miscellaneous Notes* Telephone Encounter - Sajan Dodd - 10/05/2021 3:08 PM EDT Spoke with pt and scheduled Strabismus surgery on 11/30/21. Pt will schedule PACC with her PCP. Blaze Geronmio documented in this encounterUniversity Hospitals Cleveland Medical Center08-12-2022 Instructions* Patient Instructions* Meenakshi Obrien MD - 10/02/2021 2:44 PM EDT Information for surgery with Dr. Obrien Surgery Scheduling [facility] - Tuesday of each month. Adults and children 1 year old and older. No major medical comorbidities (including sleep apnea, obesity, and pacemaker). [facility] - Second (PM start), (AM start), and (AM start) Tuesday of each month. Surgery coordinator for [facility] - Allegra Hearn [phone]. An alternative number is [phone]. Surgery coordinator at [facility] Blaze Mercadogore [phone]. Adults have to get prior authorization from [...] physician is outside of the [facility] system, then please bring a printed copy of their history and physical with on the day of their surgery. Schedule pre-anesthesia testing appointment. Call [phone]. Pre-op measurements. Sometimes we do a pre-op [...] prior to surgery, you can send a [employer] message or you can call Dr. Obrien s office at [phone]. Children get sick a lot! If your [...] home/pick them up from school, etc. Location: [facility] Surgery center is on 2nd floor [facility] - Surgery pre-op waiting areas is M23 [...] questions or to examine the patient at [facility], even at night and on the weekends. Dr. Obrien s office number is [phone]. documented in this encounterUniversity Hospitals Cleveland Medical Center08-12-2022 History of Present illness Narrative* [...] 2:44 PM documented in this encounterUniversity Hospitals Cleveland Medical Center12-09-2021 Evaluation note* Encounter Date Diagnosis [...] - G89.29) Continue with current treatment plan [email or web address] Other 10-26-2021 Evaluation note* Encounter Date Diagnosis [...] - G89.29) Continue with current treatment plan [email or web address] Other 09-23-2021 Evaluation note* Encounter Date Diagnosis [...] - G89.29) Continue with current treatment plan [email or web address] Other Discharge summary Author Jp Barba [facility] November 19, 2021 10:28pmNote Date/TimeSeptember 2021 10:28pm[place] [address] Discharge Summary Signed Patient: Morro Maloney MR#: [id number] : 1985 Acct:[id number] Age/Sex: 36 / F Adm Date: 2 Loc: Room: [address] [place] [address]: Jp Barba DO Copies to: [...] 36-year-old female who presented to hospital the liaison engineer of 09/17 with a chiefcomplaint of shortness [...] Sodium 136, Potassium 4.5, Chloride 103, Carbon Ihomhci92.0, Anion Gap 15.5 H, BUN 13, Creatinine [...] <Electronically signed by Jp Barba DO> 11/19/212227 [facility] Work Phone: Discharge summary Author Hema Miramontes [facility] December 28, 2021 4:50pmNote Date/TimeNov2021 4:50pm[place] [address] Discharge Summary Signed Patient: Morro Maloney MR#: [id number] : 1985 Acct:[id number] Age/Sex: 36 / F Adm Date: 2 Loc: Room: [address] [place] [address]: Hema Miramontes MD Copies to: MD Abdullahi Lee 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/ANALYST-C~ Providers Date of Discharge: 12/28/21 Discharging Provider: [...] Sodium 137, Potassium 4.3, Chloride 106, Carbon Kryybii51.5 L, Anion Gap 13.8, BUN 9, Creatinine 0.94, Est GFR ( Amer) > 60, Est GFR (Non-Af Amer) > 60, Glucose 162 H, Calcium 9.4 12/28/21 05:52: Corrected WBC 11.2, Uncorrected WBC Count 11.2 H, RBC 4.76, Hgb 12.6, Hct 39.3, MCV82.6, MCH 26.5, MCHC 32.1, RDW 17.6 H, Plt Count 315, MPV 7.8, Neut % (Auto) 89.6, Lymph % (Auto) 8.7, Otoe % (Auto) 1.3, Eos % (Auto) 0.0, Baso % (Auto) 0.4, Neut # (Auto) 10.0 H, Lymph # (Auto) 1.0, Otoe # (Auto) 0.1, Eos # (Auto) 0.0, [...] PRN (Reason: wheeze) Follow Up: Abdullahi Coronado, 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/ANALYST-C [Primary Care Provider] - 12/31/21 1:00 pm (You have beenscheduled for a follow up appointment for the following date and time, please call to reschedule if needed.) Documented By: Hema Miramontes MD 2 1640 Signed By: <Electronically signed by Hema Miramontes MD> 12/28/21 3730 [facility] Work Phone: Evaluation + Plan note Future Appointments Appointment Date:08/15/2023 11:20:00 AM Scheduled Provider:Jose MAY, Quyen Pozo Location:.ONCOLOGY Appointment Type:ONC Office Visit New 40 (FT) Diagnostic Tests Pending * Erythropoietin Level 08/12/23 Future Scheduled Tests Laboratory* CBC w/ Auto Diff 08/08/23 * CBC w/ Auto Diff 08/22/23 * CBC w/ Auto Diff 08/29/23 [facility] Future Appointments Appointment Date:09/05/2023 02:00:00 PM Scheduled Provider: Location:[facility] Appointment Type:Surgery FT Future Scheduled Tests Laboratory* CBC w/ Auto Diff 10/10/23 * CBC w/ Auto Diff 08/08/23 * CBC w/ Auto Diff 08/22/23 * Comprehensive Metabolic Panel 10/10/23 * Ferritin 10/10/23 * Folate Level 10/10/23 * Iron Level 10/10/23 * Iron Percent Saturation 10/10/23 * Transferrin 10/10/23 [facility] Evaluation + Plan note Future Appointments Appointment Date:09/05/2023 02:00:00 PM Scheduled Provider: Location:[facility] Appointment Type:Surgery FT Diagnostic Tests Pending * IgA, Quant. 09/01/23 * t-Transglutaminase (tTG) IgG 09/01/23 Future Scheduled Tests Laboratory* CBC w/ Auto Diff 10/10/23 * CBC w/ Auto Diff 08/08/23 * CBC w/ Auto Diff 08/22/23 * Comprehensive Metabolic Panel 10/10/23 * Ferritin 10/10/23 * Folate Level 10/10/23 * Iron Level 10/10/23 * Iron Percent Saturation 10/10/23 * Transferrin 10/10/23 [facility] Future Appointments Appointment Date:10/27/2023 02:20:00 PM Scheduled Provider:Quyen Mitchell Location:.ONCOLOGY Appointment Type:ONC Office Visit 20 (FT) Future Scheduled Tests Laboratory* CBC w/ Auto Diff 08/08/23 * CBC w/ Auto Diff 08/22/23 [facility] Evaluation + Plan note Future Appointments Appointment Date:05/17/2024 09:00:00 AM Scheduled Provider: Location:[facility] Appointment Type:[facility] Venofer (FT) Future Scheduled Tests Laboratory* CBC w/ Auto Diff 08/08/23 * CBC w/ Auto Diff 08/22/23 [facility] evaluation noteNo [employer] Other Evaluation note* Diagnosis Monocular esotropia, left eye- Primary Monocular esotropia Diplopia documented in this encounter [facility] CenterEvaluation note* Diagnosis Preoperative examination- Primary [...] esotropia documented in this encounter [facility] CenterEvaluation note* Diagnosis Onset Date Resolution Status Acute respiratory failure with hypoxia acuteAsthma exacerbationacute [facility] Work Phone: evaluation note* Diagnosis Onset Date Resolution Status Acute respiratory failure with hypoxia acuteAsthmaacuteAsthma exacerbationacuteHypoxemiaacute [facility] Work Phone: evalutijqr note* Diagnosis Monocular esotropia, left eye- Primary Monocular esotropia Monocular esotropia, left eye Monocular esotropia documented in this encounter [facility] CenterEvaluation note* Diagnosis Monocular esotropia, left eye- Primary Monocular esotropia documented in this encounter [facility] CenterEvaluation note* Diagnosis Onset Date Resolution Status Acute respiratory failure with hypoxia acuteAsthmaacuteAsthma exacerbationacuteHypoxemiaacuteAsthma exacerbationacute [facility] Work Phone: Evaluation note* Diagnosis Onset Date Resolution Status Acute respiratory failure with hypoxia acuteAsthmaacuteAsthma exacerbationacuteHypoxemiaacuteAsthma exacerbationacute Viral illnessacute [facility] Work Phone: Evaluation noteNo assessment information available [facility] Work Phone: Evaluation note* Diagnosis Status post partial thyroidectomy (CMS/HCC)- Primary Other postprocedural status Other hyperparathyroidism (CMS/HCC) Other hyperparathyroidism documented in this encounter [facility] HealthcareEvaluation note* Diagnosis Status post partial thyroidectomy (CMS/HCC)- Primary Other postprocedural status Thyroid mass (CMS/HCC) Unspecified disorder of thyroid Low vitamin D level documented in this encounter [facility] HealthcareEvaluation note* Diagnosis Fatigue, unspecified type- Primary Dehydration [facility]* Diagnosis Lower abdominal pain- Primary Abdominal pain, other specified site documented in this encounter [facility] HealthHistory and physical note Author Nan Brand [facility] December 27, 2021 6:03pmNote Date/TimeNov2021 5:46pm[place] [address] Hospitalist H&P Signed Patient: Morro Maloney MR#: [id number] : 1985 Acct:[id number] Age/Sex: 36 / F Adm Date: 2 Loc: ER Room: Type: [facility] ER Attending Dr: Copies to: [...] % (Auto) 23.6 % (.) 12/27/21 14:42 Otoe % (Auto) 5.7 % (.) 12/27/21 14:42 Eos % (Auto) 1.9 % (.) 12/27/21 14:42 Baso % (Auto) 0.8 % (.) 12/27/21 14:42 Neut # (Auto) 8.6 x10E3/uL (1.8-7.7) H 12/27/21 14:42 Lymph # (Auto) 3.0 x10E3/uL (1.00-4.8) 12/27/21 14:42 Otoe # (Auto) 0.7 x10E3/uL (0.0-0.8) 12/27/21 14:42 [...] medications Documented By: Nan Brand MD 12/27/21 8719 Signed By: <Electronically signed by Nan Brand MD> 12/27/21 1803 [facility] Work Phone: History general Narrative - Reported* Type Description Date Medical History asthma Medical HistoryPCOSMedical HistorybipolarMedical Historypanic disorderMedical HistoryGestational diabetes - yesMedical HistoryInsulin ResistanceSurgical HistoryappendectomySurgical HistoryC sectionSurgical Historygall bladder Hospitalization HistoryAsthmaHospitalization Historysee above [email or web address] Other Hospital course Narrative No data available for this section [facility] Additional Instructions Do not start the prednisone for another 3 days and only if you need this Return for new or worsening symptoms [facility] Work Phone: Hospital Discharge instructions No data available for this section [facility]* Attachments The following attachments cannot be sent through Care Everywhere. * Fatigue (Ugandan) documented in this [facility]Bon [facility] No data available for this section [facility] Summary Purpose Family History No Family History [...] section and content) DATE CREATED AUTHOR 10/07/2018 [facility] DATE CREATED AUTHOR AUTHOR'S ORGANIZ ATION 11/23/2021 [facility] Hospital Admitting Clerk DATE CREATED AUTHOR AUTHOR'S ORGANIZ ATION 07/05/2022 [facility] DATE CREATED AUTHOR AUTHOR'S ORGANIZ ATION 08/04/2023 [facility] DATE CREATED AUTHOR AUTHOR'S ORGANIZ ATION 08/12/2023 [facility] DATE CREATED AUTHOR AUTHOR'S ORGANIZ ATION 08/13/2023 [facility] DATE CREATED AUTHOR AUTHOR'S ORGANIZ ATION 08/18/2023 [facility] DATE CREATED AUTHOR AUTHOR'S ORGANIZ ATION 09/06/2023 [facility] DATE CREATED AUTHOR AUTHOR'S ORGANIZ ATION 09/08/2023 [facility] DATE CREATED AUTHOR AUTHOR'S ORGANIZ ATION 09/12/2023 [facility] DATE CREATED AUTHOR AUTHOR'S ORGANIZ ATION 09/20/2023 [facility] DATE CREATED AUTHOR AUTHOR'S ORGANIZ ATION 09/24/2023 [facility] DATE CREATED AUTHOR AUTHOR'S ORGANIZ ATION 10/12/[address] [facility] DATE CREATED AUTHOR AUTHOR'S ORGANIZ ATION 10/28/2023 [facility] DATE CREATED AUTHOR AUTHOR'S ORGANIZ ATION 11/06/2023 [facility] DATE CREATED AUTHOR AUTHOR'S ORGANIZ ATION 11/11/2023 [facility] EPIC DATE CREATED AUTHOR AUTHOR'S ORGANIZ ATION 03/02/2024 [facility] DATE CREATED AUTHOR AUTHOR'S ORGANIZ ATION 04/29/2024 [facility] DATE CREATED AUTHOR AUTHOR'S ORGANIZ ATION 09/17/2024 [facility] DATE CREATED AUTHOR AUTHOR'S ORGANIZ ATION 12/02/2024 [facility] DATE CREATED AUTHOR AUTHOR'S ORGANIZ ATION 12/27/2024 [facility] DATE CREATED AUTHOR AUTHOR'S ORGANIZ ATION 12/28/2024 [facility] DATE CREATED AUTHOR AUTHOR'S ORGANIZ ATION 01/02/2025 [facility] REASON FOR VISIT (unrecogniz ed section and [...] any alcohol or drug abuse patient.[facility] Medical CenterIn the event this information is protected by the Federal Confidentiality of Alcohol and Drug Abuse Patient Records regulations: The Federal rules restrict any use of the information to criminally investigate or prosecute any alcohol or drug abuse patient.[facility] Medical CenterIn the event this information is protected by the Federal Confidentiality of Alcohol and Drug Abuse Patient Records regulations: The Federal rules restrict any use of the information to criminally investigate or prosecute any alcohol or drug abuse patient.[facility] Medical CenterIn the event this information is protected by the Federal Confidentiality of Alcohol and Drug Abuse Patient Records regulations: The Federal rules restrict any use of the information to criminally investigate or prosecute any alcohol or drug abuse patient.[facility] Medical CenterIn the event this information is protected by the Federal Confidentiality of Alcohol and Drug Abuse Patient Records regulations: The Federal rules restrict any use of the information to criminally investigate or prosecute any alcohol or drug abuse patient.[facility] Medical CenterIn the event this information is protected by the Federal Confidentiality of Alcohol and Drug Abuse Patient Records regulations: The Federal rules restrict any use of the information to criminally investigate or prosecute any alcohol or drug abuse patient.[facility] Medical CenterIn the event this information is protected by the Federal Confidentiality of Alcohol and Drug Abuse Patient Records regulations: The Federal rules restrict any use of the information to criminally investigate or prosecute any alcohol or drug abuse patient.[facility] Care Teams (unrecognized sec tion and content) Team Status: Active Member Role Status Dates Abdullahi Coronado 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/ANALYST-C Primary Care Provider Active Jacques Robbins Jr ProviderActiveAndres Mcgee , MDAdmit Provider, Attending ProviderActive Team Status: Active Member Role Status Dates Abdullahi Coronado 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/ANALYST-C Primary Care Provider Active Team Status: Inactive Member Role Status Dates Abdullahi Coronado 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/ANALYST-C Primary Care Provider Active Jacques Robbins Jr ProviderActiveAndres Mcgee , MDAdmit ProviderActiveJp Barba DOAttending ProviderActive Team Status: Active Member Role Status Dates Abdullahi Coronado 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/ANALYST-C Primary Care Provider Active Elmer Valerio ProviderActiveRuta Semaskiene , MDAdmit Provider, Attending ProviderActive Team Status: Inactive Member Role Status Dates Abdullahi Coronado 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/ANALYST-C Primary Care Provider Active Elmer Valerio ProviderActiveRuta Semaskiene , MDAdmit Provider ActiveHema Miramontes , MDAttending ProviderActive Team Status: Inactive Member Role Status Dates Abdullahi Coronado 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/ANALYST-C Primary Care Provider Active BRUCE NielsenCEmergencfide ProviderActive Team Status: Active Member Role Status Dates Cleo Hernandez , 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/ANALYST-C Primary Care Provider Active Team Status: Inactive [...] Member Role Status Dates Cleo Hernandez , 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/ANALYST-C Primary Care Provider Active Start: October 25, 2023 End: October 24enkacy Juares DOAttending ProviderActiveStart: October 25, 2023 End: October 25, 2023Team MemberRelationshipSpecialtyStart DateEnd Date Abdullahi Coronado NP [address] [place] [address] PCP - [facility]08/21/22 Chet Isabel MD [address] [place] [address] PCP - [facility]09/20/23 Rolly Vail APRN-SPRAYER INSECTICIDE [address] [address] [facility]08/04/22 Cleo Hernandez MD [address] [place] [address] Referring PhysicianFami Medicine09/20/23 Brandon Juares DO [address] [place] [address] Otolaryngology09/20/23Team MemberRelationshipSpecialtyStart DateEnd Date Abdullahi Coronado NP [address] [place] [address] PCP - [facility]08/21/22 Chet Isabel MD [address] [place] [address] [facility]/23 Rolly Vail, TOW BAR DRIVER-SPRAYER INSECTICIDE [address] [address] Nurse Pract[facility]erB[facility]08/04/22 Cleo Hernandez MD [address] [place] [address] Referring Physicianmily Medicine09/20/23 Brandon Juares DO [address] [place] [address] Otolaryngology09/20/23Team MemberRelationshipSpecialtyStart DateEnd Date Abdullahi Coronado NP [address] [place] [address] [facility] - [facility]08/21/22 Chet Isabel MD [address] [place] [address] PCP - [facility]09/20/23 Rolly Vail TOW BAR DRIVER-SPRAYER INSECTICIDE [address] [place] [address] Nurse Pract[facility]erB[facility]08/04/22 Cleo Hernandez MD [address] [place] [address] Referring PhysicianFamily Medicine09/20/23 Brandon Juares DO [address] [place] [address] Otolaryngology09/20/23Team MemberRelationshipSpecialtyStart DateEnd Date Abdullahi Coronado NP [address] [place] [address] PCP - [facility]08/21/22 Chet Isabel MD [address] [place] [address] PCP - [facility]09/20/23 Rolly Vail APRN-SPRAYER INSECTICIDE [address] [address] Nurse PractitionerB[facility]08/04/22 Cleo Hernandez MD [address] [place] [address] Referring Physicianmily Medicine09/20/23 Brandon Juares DO [address] [place] [address] Otolaryngology09/20/23Team MemberRelationshipSpecialtyStart DateEnd Date Cleo Hernandez APRN - 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/ANALYST [address] [place] [address] PCP - General06/11/24Team MemberRelationshipSpecialtyStart DateEnd Chet Isabel MD [address] [place] [address] [id number] [facility] - [facility]23 Cleo Hernandez NP [address] [place] [id number] Referring PhysicianBoston [facility] Medical Center Hospital Medicine09/20/23 Brandon Juares DO [address] [place] [address] Otolaryngology09/20/23Team MemberRelationshipSpecialtyStart DateEnd Date Cleo Hernandez APRN - 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/ANALYST [address] [place] [phone] PCP - General06/11/24 Goals (unrecognized section and [...] * 1227 (Given - Provider: Luis Felipe Sodo, JUSTINO) ketorolac (TORADOL) injection 30 mg (COMPLETED) [...] BE BASED ON THE PRIMARY CLINICAL RECORDS. [employer] [facility]. provides no warranty or guarantee of the accuracy or completeness of information in this document.
== END 2025-01-22 14:03 | disposition home or self-care (01) ==
LOC: MAMMO 14:03
PROVIDERS: PCP Nurse Practitioner; Visit Provider Nurse Practitioner
DX: R92.8 Other abnormal and inconclusive findings on diagnostic imaging of breast (principal); Z80.3 Family history of malignant neoplasm of breast; Z80.8 Family history of malignant neoplasm of other organs or systems
CPT/HCPCS: 76642; 77065; G0279